=== PATIENT | female | born 1980 | race African-American/Black ===

== ENCOUNTER → 2020-01-23 16:29 | Outpatient (CLI) | payer BC, SELFPAY ==
--- NOTE | ~2020-01-23 | US_ITS ---
EXAMINATION: US thyroid DATE: 01/23/2020 16:41 INDICATION: Goiter. TECHNIQUE: Multiple ultrasound images of the thyroid were obtained. COMPARISON: Ultrasound 07/28/2018 FINDINGS: The right thyroid lobe measures 5.0 x 1.5 x 1.5 cm. The left thyroid lobe measures 4.3 x 1.2 x 1.5 c m. There is normal echotexture and echogenicity throughout the thyroid gland. No discrete nodules id entified. Normal vascular flow is present. IMPRESSION: 1. Normal thyroid. Reviewed, dictated and finalized at location A. IMPRESSION: 1. Normal thyroid.
== END ==
PROVIDERS: PCP Internal Medicine; Visit Provider Internal Medicine Endocrinology, Diabetes & Metabolism
DX: E04.9 Nontoxic goiter, unspecified (principal)
CPT/HCPCS: 76536

== ENCOUNTER 2020-02-20 17:52 | Emergency (ER) | payer BC, SELFPAY ==
--- NOTE | ~2020-02-20 | CT_ITS ---
EXAMINATION: CT abdomen pelvis w con EXAM DATE: 02/20/2020 21:37 INDICATION: Low abdominal pain. TECHNIQUE: Spiral CT of the abdomen and pelvis was performed following intravenous injection of 100 m L Omnipaque 350. Axial, coronal and sagittal images were reviewed. The dose-length product (DLP) fo r this examination was 863.56 mGy-cm. The exposure was tailored according to patient size (auto mA e xposure control), and iterative reconstruction (ASIR) was used as additional dose reduction technique . There is no prior study for comparison. FINDINGS: The liver, spleen, adrenal glands and pancreas are unremarkable. Gallbladder not identifie d, patient likely has had cholecystectomy. Portal and splenic veins are patent. Kidneys enhance sym metrically. There is no hydronephrosis. The uterus is unremarkable. The ovaries are normal in size . The bladder is unremarkable. There is no retroperitoneal or pelvic lymphadenopathy. The appendix is normal. The stomach and small bowel are unremarkable. There is expected amount of c olonic stool. No free intraperitoneal gas. The heart is normal in size. There are no pericardial or pleural effusions. The lung bases are unremarkable. The bones are unremarkable. IMPRESSION: 1. No acute intra-abdominal findings. Reviewed, dictated and finalized at location A.
[2020-02-20 18:59] VITALS: BP 126/90; PULSE 99; RESP 18; TEMP 36.2; O2SAT 100
[2020-02-20 19:16] LABS: Basophils Absolute Auto 0.1 K/mm3 (0.0-0.1); Basophils Percent Auto 0.6 % (0.2-1.2); Eosinophils Absolute Auto 0.2 K/mm3 (0-0.3); Eosinophils Percent Auto 2.5 % (0-4.4); Hematocrit 42.9 % (37.0-47.0); Hemoglobin 13.9 g/dL (12.0-15.0); Immature Granulocyte Absolute 0.02 K/mm3 (0.00-0.031); Immature Granulocyte Percent A 0.2 % (0-0.5); Lymphocytes Absolute Auto 3.12 K/mm3 (0.9-3.2); Lymphocytes Percent Auto 32.4 % (18.3-44.2); Mean Corpuscular HGB Conc 32.4 g/dl (32-36); Mean Corpuscular Hemoglobin 23.6 pg (26-34); Mean Corpuscular Volume 72.7 fl (80-100); Mean Platelet Volume 9.7 fl (7.4-10.4); Monocytes Absolute Auto 0.6 K/mm3 (0.1-0.6); Monocytes Percent Auto 6.4 % (2.6-8.5); Neutrophils Absolute Auto 5.6 K/mm3 (1.3-6.7); Neutrophils Percent Auto 57.9 % (45.5-73.1); Platelet Count Result 438 k/mm3 (150-375); Red Cell Distribution Width 14.1 % (11.5-14.5); White Blood Count 9.6 K/mm3 (4.5-10.0)
[2020-02-20 19:28] LABS: Alanine Aminotransferase 12 U/L (4-35); Albumin Level 4.7 g/dL (3.5-5.1); Alkaline Phosphatase 70 U/L (38-126); Anion Gap 10 mmol/L (8-16); Aspartate Amino Transferase 20 U/L (14-36); Bilirubin,Total 0.7 mg/dL (0.2-1.3); Blood Urea Nitrogen 9 mg/dL (7-17); Carbon Dioxide 30 mmol/L (22-30); Chloride 97 mmol/L (98-107); Estimated CRCL calculation 66 ml/min; Estimated Glomerular Filt Rate > 60; Glucose 87 mg/dL (65-105); Lipase 48 U/L (23-300); Potassium 4.1 mmol/L (3.4-5.0); Sodium 137 mmol/L (137-145)
[2020-02-20 19:32] LABS: Add Urine Microscopic? NO; Appearance Urine Clear (Clear); Bilirubin Urine Negative (Negative); Blood Urine Negative (Negative); Color Urine Yellow (Yellow); Glucose Urine UA Negative (Negative); Ketones Urine Negative (Negative); Leukocyte Esterase Ur Negative LEU/UL (Negative); Nitrate Urine Negative (Negative); Protein Urine Negative (Negative); Urobilinogen Urine Negative mg/dL (<2.0)
--- NOTE | 2020-02-20 20:17 | ED.ABDPAIN ---
HPI - Abdominal Pain General Chief Complaint: Abdominal Pain Stated Complaint: abdominal pain, r/o appendectomy Time Seen by Provider: 02/20/20 20:16 Source: patient Mode of arrival: ambulatory Limitations: no limitations History of Present Illness HPI narrative: Patient is a 40-year-old female with a history of bilateral cataracts, hypertension who presents for evaluation of lower abdominal pain. Patient reports pain throughout her abdomen and associated nausea. Patient has had symptoms over the past 24 hours. Pain is described as dull, cramping in nature. At times she states it feels like gas-like pain. She denies any flank pain. No dysuria, hematuria vaginal bleeding or vaginal discharge. She denies fever or chills. She reports associated dizziness and nausea. Denies vomiting. Patient states she had an elevated intraocular pressures that were managed by her fitter and turner this week, pressure rechecks have been normal. No eye symptoms at this time. Related Data Allergies Allergy/AdvReac Type Severity Reaction Status Date / Time Penicillins Allergy Severe HIVES Verified 11/24/12 11:07 penicillin G Allergy Unknown Verified 10/01/11 10:58 Sulfa (Sulfonamide Allergy Unknown EYES ITCH Verified 12/13/12 16:17 Antibiotics) AND SWELL Review of Systems Review of Systems: Narrative: CONSTITUTIONAL: Denies fever EYES: Denies visual changes CARDIOVASCULAR: Denies chest pain, palpitations, or edema. RESPIRATORY: Denies cough or dyspnea. GASTROINTESTINAL: Reports upper and lower abdominal pain, nausea GENITOURINARY: Denies dysuria or hematuria. SKIN: Denies rash or itching. MUSCULOSKELETAL: Denies back pain, joint pain, or myalgia. NEUROLOGIC: Denies headache, numbness, or weakness. [facility] Past Medical History Medical History Cataracts, bilateral Depression Detached retina Hypertension Surgical History Surgical History (Updated 02/20/20 @ 20:47 by Kathryn Yoder MD) Hx of cholecystectomy Family History Family History (Updated 01/04/14 @ 07:13 by DOCTOR UNKNOWN) Grandparent Family history of malignant neoplasm of ovary Social History Social History (Updated 02/20/20 @ 20:47 by Kathryn Yoder MD) Smoking status: Never smoker Alcohol intake: current Substance use: never Gender identity (if verbalized by the patient): Female Exam Narrative: Exam Narrative: GENERAL: Awake, alert, conversant HEAD: Normocephalic, atraumatic. EYES: Surgical changes of left eyelid, consistent with cataract, detached retina with prosthetic eye ENT: Nares clear, no rhinorrhea or epistaxis. Mucous membranes moist. NECK: Supple. CHEST: No respiratory distress, breathing even and non labored HEART: Regular rate, sinus rhythm ABDOMEN:Non distended, mildly tender in the periumbilical area, right and left lower quadrant, no guarding, no rebound, mild epigastric tenderness, negative psoas sign, no flank tenderness EXTREMITIES: Normal range of motion. No edema. SKIN: Warm, dry, no rash. NEURO:No focal deficits. Alert and oriented x3 Course Vital Signs Vital signs: Vital Signs Temperature 36.2 C L 02/20/20 18:59 Pulse Rate 99 02/20/20 18:59 Respiratory Rate 18 02/20/20 18:59 Blood Pressure 126/90 02/20/20 18:59 Pulse Oximetry 100 02/20/20 18:59 Temperature 36.2 C L 02/20/20 18:59 Pulse Rate 99 02/20/20 18:59 Respiratory Rate 18 02/20/20 18:59 Blood Pressure 126/90 02/20/20 18:59 Pulse Oximetry 100 02/20/20 18:59 MDM - Abdominal Pain MDM Narrative Medical decision making narrative: Patient presenting for evaluation of nausea and generalized abdominal pain. At the time of initial assessment, patient has a non-peritoneal abdominal exam. No focal right lower quadrant tenderness, no guarding, rebound or rigidity. Patient vital signs are quite stable. No vaginal bleeding, vaginal discharge or history of STI. No findings at this
[2020-02-20] MEDS: MECLIZINE HCL 25 MG TABLET PO (21:12)
[2020-02-20] MEDS: ONDANSETRON INJ 4 MG/2 ML VIAL IV PUSH (21:13)
[2020-02-20] MEDS: MORPHINE SULFATE (*CRX) 2 MG/ML INJ IV PUSH (21:14)
[2020-02-20] MEDS: SODIUM CHLORIDE 0.9% IV 1,000 ML 999 ML IV CONT (21:15)
[2020-02-20 23:21] VITALS: BP 122/88; PULSE 89; RESP 17; O2SAT 98
== END 2020-02-20 23:25 | disposition home or self-care (01) ==
PROVIDERS: Emergency Provider Emergency Medicine; PCP Internal Medicine
DX: R10.30 Lower abdominal pain, unspecified (principal); F32.9 Major depressive disorder, single episode, unspecified; I10 Essential (primary) hypertension
CPT/HCPCS: 36415; 74177; 80053; 81003; 81025; 83690; 85025; 96361; 96374; 96375; 99284; A9270; J2270; J2405; J7030; Q9967

== ENCOUNTER → 2020-03-28 10:08 | Outpatient (CLI) | payer BC, SELFPAY ==
--- NOTE | ~2020-03-28 | MR_ITS ---
EXAMINATION: MR brain/brain stem wo/w con EXAM DATE: 03/28/2020 11:12 INDICATION: rt eye blurred vision, patient is monocular, left eye prosthesis. TECHNIQUE: Magnetic resonance imaging (MRI) of the brain/brain stem obtained without contrast. Sagit santana T1, axial diffusion, gradient echo (T2*), T1, T2, FLAIR sequences obtained. Sagittal FLAIR sequen ce. Patient was then injected with 20 cc intravenous Multihance contrast. Axial and coronal postcontr ast T1 weighted sequences obtained. There is no prior study for comparison. FINDINGS: There are no areas of restricted diffusion to suggest acute infarction. There is no acute hemorrhage seen on the T2*, a hemosiderin sensitive sequence. No intraparenchymal brain mass. The ve ntricles are normal in size. There are no extra-axial collections. Flow voids are seen in the cereb ral arteries on the T2-weighted sequences consistent with their expected patency. Left globe prosthe sis. Soft tissue is unremarkable. There are no areas of abnormal enhancement on the postcontrast im ages. IMPRESSION: 1. Unremarkable brain MRI examination. Reviewed, dictated and finalized at location A. UCT DEVELOPMENT WORKER
--- NOTE | ~2020-03-28 | MR_ITS ---
EXAMINATION: MR orbits face neck wo/w con DATE: 03/28/2020 11:24 INDICATION: Right eye blurred vision. TECHNIQUE: Magnetic resonance imaging (MRI) of the orbits was performed without and with 20 mm MultiH ance intravenous contrast. Sequences of the orbits included coronal and axial T2-weighted FS FSE and T1-weighted FSE. Postcontrast sequences included axial and coronal T1-weighted FS FSE. COMPARISON: None. FINDINGS: There is a prosthesis in left orbit. There are likely changes of right ocular lens replacem ent surgery. The right optic nerve and optic chiasm are normal. The extraocular muscles are normal. T here is no abnormal mass. IMPRESSION: 1. Normal right orbit status post lens replacement surgery. 2. Prosthesis in left orbit. Reviewed, dictated and finalized at location A. T LINE OPERATOR
[2020-03-28 10:29] LABS: Estimated Glomerular Filt Rate > 60
== END ==
PROVIDERS: PCP Internal Medicine; Visit Provider Internal Medicine
DX: H53.8 Other visual disturbances (principal)
CPT/HCPCS: 70543; 70553; A9577

== ENCOUNTER 2020-04-15 07:04 | Outpatient (NON) | payer BC, SELFPAY ==
[2020-04-15 18:53] LABS: SARS-CoV-2 RNA PCR Negative
== END 2020-04-15 07:05 ==
LOC: ANHCOVIDDT 07:09
PROVIDERS: PCP Internal Medicine; Visit Provider Internal Medicine
DX: R68.89 Other general symptoms and signs (principal); Z20.828 Contact with and (suspected) exposure to other viral communicable diseases
CPT/HCPCS: 87635; C9803; U0003

== ENCOUNTER 2020-04-16 10:25 | Outpatient (CLI) | payer BC, SELFPAY ==
[2020-04-16 11:07] LABS: Basophils Absolute Auto 0.1 K/mm3 (0.0-0.1); Basophils Percent Auto 0.8 % (0.2-1.2); Eosinophils Absolute Auto 0.2 K/mm3 (0-0.3); Eosinophils Percent Auto 2.4 % (0-4.4); Hematocrit 40.1 % (37.0-47.0); Immature Granulocyte Absolute 0.02 K/mm3 (0.00-0.031); Immature Granulocyte Percent A 0.2 % (0-0.5); Lymphocytes Absolute Auto 2.59 K/mm3 (0.9-3.2); Lymphocytes Percent Auto 30.7 % (18.3-44.2); Mean Corpuscular HGB Conc 32.4 g/dl (32-36); Mean Corpuscular Hemoglobin 24.2 pg (26-34); Mean Corpuscular Volume 74.5 fl (80-100); Mean Platelet Volume 10.2 fl (7.4-10.4); Monocytes Absolute Auto 0.7 K/mm3 (0.1-0.6); Monocytes Percent Auto 8.3 % (2.6-8.5); Neutrophils Absolute Auto 4.9 K/mm3 (1.3-6.7); Neutrophils Percent Auto 57.6 % (45.5-73.1); Platelet Count Result 399 k/mm3 (150-375); Red Blood Count 5.38 M/mm3 (4.2-5.4); Red Cell Distribution Width 14.6 % (11.5-14.5); White Blood Count 8.4 K/mm3 (4.5-10.0)
[2020-04-16 11:21] LABS: Alanine Aminotransferase 21 U/L (4-35); Albumin Level 4.1 g/dL (3.5-5.1); Alkaline Phosphatase 64 U/L (38-126); Anion Gap 7 mmol/L (8-16); Aspartate Amino Transferase 28 U/L (14-36); Bilirubin,Total 0.7 mg/dL (0.2-1.3); Blood Urea Nitrogen 10 mg/dL (7-17); Calcium 9.4 mg/dL (8.4-10.2); Carbon Dioxide 29 mmol/L (22-30); Chloride 101 mmol/L (98-107); Estimated Glomerular Filt Rate > 60; Glucose 90 mg/dL (65-105); Potassium 4.3 mmol/L (3.4-5.0); Sodium 137 mmol/L (137-145)
[2020-04-16 11:22] LABS: Prothrombin Time 14.1 Seconds (11.1-14.7)
[2020-04-16 11:23] LABS: Partial Thromboplastin Time 31.7 SECONDS (22.3-36.8)
== END 2020-04-16 10:26 | disposition home or self-care (01) ==
PROVIDERS: PCP Internal Medicine; Visit Provider Internal Medicine
DX: K92.1 Melena (principal); R79.89 Other specified abnormal findings of blood chemistry
CPT/HCPCS: 36415; 80053; 85025; 85610; 85730

== ENCOUNTER → 2020-06-04 12:45 | Outpatient (CLI) | payer BC, SELFPAY ==
--- NOTE | ~2020-06-04 | US_ITS ---
US transvaginal DATE: 06/04/2020 13:15 INDICATION: Pelvic pain. Follow-up of fibroids. TECHNIQUE: Real-time imaging via transvaginal approach COMPARISON: 02/20/2020 CT abdomen pelvis 06/02/2019 transvaginal pelvic ultrasound FINDINGS: The uterus measures approximately 7.9 cm height, 5.6 cm AP and 6.4 cm transverse dimension. Multiple uterine fibroids are noted, measuring up to 3.2 cm approximate maximal dimension. The central and anterior apical complex measures up to 6 mm, normal. Right ovary measures 3.8 x 2.1 x 3.3 cm, with vascular flow. There is a complex 2.1 x 1.2 x 2.8 cm ri ght ovarian lesion. Left ovary measures 2.8 x 1.7 x 1.6 cm, with vascular flow. IMPRESSION: Multiple uterine fibroids Complex 2.1 x 1.2 x 2.8 cm right ovarian mass Reviewed, dictated and finalized at Location A. Reviewed, dictated and finalized at location A. L GRADER
== END ==
PROVIDERS: PCP Internal Medicine; Visit Provider Obstetrics & Gynecology Gynecology
DX: R10.2 Pelvic and perineal pain (principal); D25.9 Leiomyoma of uterus, unspecified
CPT/HCPCS: 76830

== ENCOUNTER 2020-07-08 08:18 | Outpatient (CLI) | payer BC, SELFPAY ==
--- NOTE | ~2020-07-08 | US_ITS ---
EXAMINATION: US transvaginal EXAM DATE: 07/08/2020 08:53 INDICATION: Pelvic pain, ovarian cyst. TECHNIQUE: Pelvic transvaginal sonogram was performed. There are multiple grayscale and Doppler imag es available for interpretation. Comparison is made to prior examination from 06/04/2020. FINDINGS: Uterus measures 7.9 x 4.6 x 6.7 cm, with several regions consistent with fibroids, largest in the posterior myometrium measuring 3.7 cm, another in the right side measuring 2.8 cm. Endometria l stripe measures 11 mm, within normal limits. There is no free pelvic fluid. Right adnexa: The ovary measures 2.9 x 2.0 x 1.9 cm and is morphologically normal. Resolution of prev iously seen complex cystic lesion. Ovarian vascular flow confirmed. Left adnexa: The ovary measures 4.2 x 2.8 x 2.5 cm and is morphologically normal. Ovarian vascular fl ow confirmed. IMPRESSION: 1. Normalization of right ovary. 2. Fibroids unchanged. Reviewed, dictated and finalized at location A. REDUCTION EQUIPMENT OPERATOR
== END 2020-07-08 08:19 ==
LOC: MICIMG 08:19
PROVIDERS: PCP Internal Medicine; Visit Provider Obstetrics & Gynecology Gynecology
DX: R10.2 Pelvic and perineal pain (principal); N83.201 Unspecified ovarian cyst, right side; D25.9 Leiomyoma of uterus, unspecified
CPT/HCPCS: 76830

== ENCOUNTER → 2021-02-20 09:14 | Outpatient (CLI) | payer BC, SELFPAY ==
--- NOTE | ~2021-02-20 | US_ITS ---
EXAMINATION: US renal BI EXAM DATE: 02/20/2021 09:32 INDICATION: Disorder of kidney and ureter, renal insufficiency TECHNIQUE: Multiple grayscale and Doppler images of the kidneys were obtained (by a technologist who performed the scan) and subsequently reviewed. Comparison is made to prior examination from . FINDINGS: Right kidney: There is normal contour and echogenicity. It measures 9.8 x 4.6 x 5.1 centimeters. Th ere are no focal renal lesions identified. There is no hydronephrosis. Left kidney: There is normal contour and echogenicity. It measures 10.6 x 3.4 x 3.5 centimeters. Th ere are no focal renal lesions identified. There is no hydronephrosis. Bladder unremarkable. IMPRESSION: 1. Sonographically unremarkable kidneys. Reviewed, dictated and finalized at location A.
== END ==
PROVIDERS: PCP Internal Medicine; Visit Provider Internal Medicine
DX: N28.9 Disorder of kidney and ureter, unspecified (principal)
CPT/HCPCS: 76775

== ENCOUNTER 2021-09-08 08:16 | Outpatient (CLI) | payer BC, SELFPAY ==
[2021-09-08 08:46] LABS: Alanine Aminotransferase 74 U/L (4-35); Albumin Level 4.4 g/dL (3.5-5.1); Alkaline Phosphatase 108 U/L (38-126); Anion Gap 7 mmol/L (8-16); Aspartate Amino Transferase 43 U/L (14-36); Bilirubin,Total 0.6 mg/dL (0.2-1.3); Blood Urea Nitrogen 7 mg/dL (7-17); Calcium 8.9 mg/dL (8.4-10.2); Carbon Dioxide 26 mmol/L (22-30); Chloride 104 mmol/L (98-107); Cholesterol 170 mg/dL (0-200); Estimated Glomerular Filt Rate 55; Glucose 91 mg/dL (65-110); HDL Direct 46 mg/dL; Hemoglobin A1C 4.8 % (<5.7); Potassium 4.1 mmol/L (3.4-5.0); Sodium 137 mmol/L (137-145); Triglycerides 196 mg/dL (<150)
[2021-09-08 08:57] LABS: LDL Cholesterol Direct 64 mg/dL
[2021-09-11 04:48] LABS: Insulin Level Total 15.6 uIU/mL (<=19.6)
[2021-09-11 13:04] LABS: Testosterone Free 0.7 pg/mL (0.1-6.4); Testosterone Total 13 ng/dL (2-45)
[2021-09-11 17:55] LABS: DHEA-Sulfate 47 mcg/dL (23-266)
== END 2021-09-08 08:17 | disposition home or self-care (01) ==
LOC: ANHLAB 08:22
PROVIDERS: PCP Internal Medicine; Visit Provider Internal Medicine Endocrinology, Diabetes & Metabolism
DX: R73.03 Prediabetes (principal)
CPT/HCPCS: 36415; 80053; 80061; 82627; 83036; 83525; 84402; 84403

== ENCOUNTER 2022-01-19 07:02 | Outpatient (CLI) | payer BC, SELFPAY ==
[2022-01-19 07:34] LABS: Alanine Aminotransferase 28 U/L (6-35); Albumin Level 3.9 g/dL (3.5-5.1); Alkaline Phosphatase 70 U/L (38-126); Anion Gap 6 mmol/L (8-16); Aspartate Amino Transferase 34 U/L (14-36); Bilirubin,Total 0.7 mg/dL (0.2-1.3); Blood Urea Nitrogen 7 mg/dL (7-17); Calcium 8.8 mg/dL (8.4-10.2); Carbon Dioxide 28 mmol/L (22-30); Chloride 104 mmol/L (98-107); Estimated Glomerular Filt Rate 55; Glucose 91 mg/dL (65-110); Potassium 3.8 mmol/L (3.4-5.0); Sodium 138 mmol/L (137-145)
[2022-01-19 07:42] LABS: Basophils Absolute Auto 0.1 K/mm3 (0.0-0.1); Basophils Percent Auto 0.7 % (0.2-1.2); Eosinophils Absolute Auto 0.1 K/mm3 (0-0.3); Eosinophils Percent Auto 0.7 % (0-4.4); Hematocrit 41.5 % (37.0-47.0); Hemoglobin 13.1 g/dL (12.0-15.0); Immature Granulocyte Absolute 0.01 K/mm3 (0.00-0.031); Immature Granulocyte Percent A 0.1 % (0-0.5); Lymphocytes Absolute Auto 2.68 K/mm3 (0.9-3.2); Lymphocytes Percent Auto 32.8 % (18.3-44.2); Mean Corpuscular HGB Conc 31.6 g/dl (32-36); Mean Corpuscular Hemoglobin 23.8 pg (26-34); Mean Corpuscular Volume 75.3 fl (80-100); Mean Platelet Volume 10.2 fl (7.4-10.4); Monocytes Absolute Auto 0.6 K/mm3 (0.1-0.6); Monocytes Percent Auto 7.8 % (2.6-8.5); Neutrophils Absolute Auto 4.7 K/mm3 (1.3-6.7); Neutrophils Percent Auto 57.9 % (45.5-73.1); Platelet Count Result 368 k/mm3 (150-375); Red Blood Count 5.51 M/mm3 (4.2-5.4); Red Cell Distribution Width 13.9 % (11.5-14.5); White Blood Count 8.2 K/mm3 (4.5-10.0)
[2022-01-19 07:48] LABS: Add Urine Microscopic? YES; Appearance Urine Cloudy (Clear); Bacteria Urine Trace /hpf; Bilirubin Urine 1+ (Negative); Blood Urine Negative (Negative); Color Urine Amber (Yellow); Glucose Urine UA Negative (Negative); Ketones Urine Negative (Negative); Leukocyte Esterase Ur Negative LEU/UL (Negative); Mucus Urine Heavy /lpf; Nitrate Urine Negative (Negative); Protein Urine 1+ mg/dL (Negative); Squamous Epithelial Cell Urine Many /hpf (Few)
[2022-01-19 08:02] LABS: Vitamin D 25 Hydroxy 39.7 ng/mL
[2022-01-19 10:08] LABS: Hepatitis B Surface Anti Res Negative
== END 2022-01-19 07:03 | disposition home or self-care (01) ==
PROVIDERS: PCP Internal Medicine; Visit Provider Internal Medicine
DX: R74.8 Abnormal levels of other serum enzymes (principal); Z13.29 Encounter for screening for other suspected endocrine disorder; Z13.0 Encounter for screening for diseases of the blood and blood-forming organs and certain disorders involving the immune mechanism; Z13.228 Encounter for screening for other metabolic disorders; R63.4 Abnormal weight loss; E55.9 Vitamin D deficiency, unspecified
CPT/HCPCS: 36415; 80053; 81001; 82306; 84443; 85025; 86706

== ENCOUNTER → 2022-07-11 08:28 | Outpatient (CLI) | payer BC, OTHER, SELFPAY ==
--- NOTE | ~2022-07-11 | US_ITS ---
EXAMINATION: US transvaginal DATE: 07/11/2022 08:54 INDICATION: Right lower quadrant pain TECHNIQUE: Multiple endovaginal sonographic images of the pelvis were obtained. COMPARISON: None. FINDINGS: The uterus measures 9.2 x 6.1 x 6.6 cm. There are multiple masses of the uterus which have the appearance of intramural fibroids. The largest measures 3.1 cm in the uterine fundus. The endomet rial complex measures 7 mm. The right ovary is not visualized however no right adnexal abnormality is seen. The left ovary measures 4.6 x 3.1 x 5.0 cm. There is normal vascular flow in the left ovary. T here is no free fluid in the pelvis. IMPRESSION: 1. Multiple uterine fibroids. Reviewed, dictated and finalized at location F. NEL OPENER OUTSOLES
== END ==
PROVIDERS: PCP Internal Medicine; Visit Provider Obstetrics & Gynecology Gynecology
DX: R10.2 Pelvic and perineal pain (principal); D25.9 Leiomyoma of uterus, unspecified
CPT/HCPCS: 76830

== ENCOUNTER 2022-07-13 06:57 | Outpatient (CLI) | payer BC, OTHER, SELFPAY ==
[2022-07-13 07:40] LABS: Alanine Aminotransferase 30 U/L (6-35); Albumin Level 3.3 g/dL (3.5-5.1); Alkaline Phosphatase 65 U/L (38-126); Anion Gap 1 mmol/L (8-16); Aspartate Amino Transferase 36 U/L (14-36); Bilirubin,Total 0.6 mg/dL (0.2-1.3); Blood Urea Nitrogen 7 mg/dL (7-17); Calcium 7.9 mg/dL (8.4-10.2); Carbon Dioxide 30 mmol/L (22-30); Chloride 107 mmol/L (98-107); Cholesterol 141 mg/dL (0-200); Estimated Glomerular Filt Rate > 60; Glucose 100 mg/dL (65-110); HDL Direct 35 mg/dL; Potassium 3.8 mmol/L (3.4-5.0); Sodium 138 mmol/L (137-145); Triglycerides 129 mg/dL (<150)
[2022-07-13 07:51] LABS: LDL Cholesterol Direct 76 mg/dL
[2022-07-17 10:31] LABS: DHEA-Sulfate 14 mcg/dL (19-231); Insulin Level Total 18.2 uIU/mL (<=19.6)
[2022-07-22 14:40] LABS: Testosterone Free 2.3 pg/mL (0.1-6.4); Testosterone Total 14 ng/dL (2-45)
== END 2022-07-13 06:58 | disposition home or self-care (01) ==
LOC: ANHLAB 07:02
PROVIDERS: PCP Internal Medicine; Visit Provider Internal Medicine Endocrinology, Diabetes & Metabolism
DX: E78.1 Pure hyperglyceridemia (principal); E28.2 Polycystic ovarian syndrome; R73.03 Prediabetes
CPT/HCPCS: 36415; 80053; 80061; 82627; 83036; 83525; 84402; 84403

== ENCOUNTER 2022-08-03 08:14 | Outpatient (CLI) | payer BC, OTHER, SELFPAY ==
[2022-08-03 09:15] LABS: Cortisol Random 0.99 ug/dL
== END 2022-08-03 08:15 | disposition home or self-care (01) ==
LOC: ANHLAB 08:17
PROVIDERS: PCP Internal Medicine; Visit Provider Internal Medicine Endocrinology, Diabetes & Metabolism
DX: E28.2 Polycystic ovarian syndrome (principal)
CPT/HCPCS: 36415; 80299; 82533

== ENCOUNTER → 2022-09-17 13:57 | Outpatient (CLI) | payer BC, OTHER, SELFPAY ==
--- NOTE | ~2022-09-17 | MM_ITS ---
EXAMINATION: MM screening [facility] BI w maryjo HISTORY: Screening mammogram TECHNIQUE: Craniocaudal and mediolateral oblique 3-D tomosynthesis images were obtained and synthetic 2-D images were generated. CAD analysis was submitted and interpreted. COMPARISON: 01/20/2019, 06/24/2017, 10/08/2011, 09/08/2011 BREAST PARENCHYMAL COMPOSITION: There are scattered areas of fibroglandular density. FINDINGS: No suspicious mass, calcification, or architectural distortion are identified in either emily ast to suggest malignancy. There has been no suspicious interval change. IMPRESSION: 1. No mammographic evidence of malignancy. 2. Recommend routine screening mammography in one year. BI-RADS Category 1: Negative Reviewed, dictated and finalized at location A.
== END ==
PROVIDERS: PCP Obstetrics & Gynecology Gynecology; Visit Provider Obstetrics & Gynecology Gynecology
DX: Z12.31 Encounter for screening mammogram for malignant neoplasm of breast (principal)
CPT/HCPCS: 77063; 77067

== ENCOUNTER 2022-10-16 07:36 | Outpatient (CLI) | payer BC, OTHER, SELFPAY ==
[2022-10-16 08:21] LABS: Basophils Percent Auto 0.3 % (0.2-1.2); Hematocrit 44.1 % (37.0-47.0); Hemoglobin 13.8 g/dL (12.0-15.0); Immature Granulocyte Absolute 0.03 K/mm3 (0.00-0.031); Immature Granulocyte Percent A 0.4 % (0-0.5); Lymphocytes Absolute Auto 0.96 K/mm3 (0.9-3.2); Lymphocytes Percent Auto 12.2 % (18.3-44.2); Mean Corpuscular HGB Conc 31.3 g/dl (32-36); Mean Corpuscular Hemoglobin 23.4 pg (26-34); Mean Corpuscular Volume 74.9 fl (80-100); Mean Platelet Volume 10.4 fl (7.4-10.4); Monocytes Absolute Auto 0.1 K/mm3 (0.1-0.6); Monocytes Percent Auto 1.3 % (2.6-8.5); Neutrophils Absolute Auto 6.7 K/mm3 (1.3-6.7); Neutrophils Percent Auto 85.8 % (45.5-73.1); Platelet Count Result 475 k/mm3 (150-375); Red Blood Count 5.89 M/mm3 (4.2-5.4); Red Cell Distribution Width 15.5 % (11.5-14.5); White Blood Count 7.8 K/mm3 (4.5-10.0)
[2022-10-16 08:24] LABS: Alanine Aminotransferase 33 U/L (6-35); Albumin Level 4.7 g/dL (3.5-5.1); Alkaline Phosphatase 91 U/L (38-126); Anion Gap 9 mmol/L (8-16); Aspartate Amino Transferase 33 U/L (14-36); Bilirubin,Total 0.7 mg/dL (0.2-1.3); Blood Urea Nitrogen 11 mg/dL (7-17); Calcium 9.5 mg/dL (8.4-10.2); Carbon Dioxide 27 mmol/L (22-30); Chloride 101 mmol/L (98-107); Estimated Glomerular Filt Rate > 60; Glucose 136 mg/dL (65-110); Potassium 4.4 mmol/L (3.4-5.0); Sodium 137 mmol/L (137-145)
[2022-10-16 08:27] LABS: Appearance Urine Clear (Clear); Bacteria Urine 1+ /hpf; Bilirubin Urine Negative (Negative); Blood Urine Negative (Negative); Color Urine Yellow (Yellow); Glucose Urine UA Negative (Negative); Ketones Urine Negative (Negative); Leukocyte Esterase Ur Trace LEU/UL (Negative); Nitrate Urine Negative (Negative); Non Pathogenic Casts 0-2; Protein Urine Negative (Negative); RBC Urine 0-2 /hpf (0-2); Specific Grav Ur 1.021 (1.001-1.035); Squamous Epithelial Cell Urine Moderate /hpf (Few); Urobilinogen Urine 0.2 mg/dL (<2.0)
[2022-10-16 08:28] LABS: Prothrombin Time 13.9 Seconds (11.1-14.7)
[2022-10-16 08:29] LABS: Partial Thromboplastin Time 34.8 SECONDS (22.3-36.8)
[2022-10-16 08:43] LABS: Add Urine Microscopic? YES
== END 2022-10-16 07:37 | disposition home or self-care (01) ==
LOC: ANHLAB 07:39
PROVIDERS: PCP Obstetrics & Gynecology Gynecology; Visit Provider Internal Medicine
DX: R31.29 Other microscopic hematuria (principal); T14.8XXA Other injury of unspecified body region, initial encounter; I10 Essential (primary) hypertension
CPT/HCPCS: 36415; 80053; 81001; 85025; 85610; 85730; 87086

== ENCOUNTER 2022-11-23 16:28 | Outpatient (CLI) | payer BC, OTHER, SELFPAY ==
[2022-11-23 17:32] LABS: Basophils Absolute Auto 0.1 K/mm3 (0.0-0.1); Basophils Percent Auto 0.9 % (0.2-1.2); Eosinophils Percent Auto 0.2 % (0-4.4); Hematocrit 41.7 % (37.0-47.0); Immature Granulocyte Absolute 0.05 K/mm3 (0.00-0.031); Immature Granulocyte Percent A 0.5 % (0-0.5); Lymphocytes Absolute Auto 2.71 K/mm3 (0.9-3.2); Lymphocytes Percent Auto 29.2 % (18.3-44.2); Mean Corpuscular HGB Conc 31.2 g/dl (32-36); Mean Corpuscular Hemoglobin 23.4 pg (26-34); Mean Corpuscular Volume 75.1 fl (80-100); Mean Platelet Volume 10.2 fl (7.4-10.4); Monocytes Absolute Auto 0.8 K/mm3 (0.1-0.6); Monocytes Percent Auto 8.6 % (2.6-8.5); Neutrophils Absolute Auto 5.6 K/mm3 (1.3-6.7); Neutrophils Percent Auto 60.6 % (45.5-73.1); Platelet Count Result 407 k/mm3 (150-375); Red Blood Count 5.55 M/mm3 (4.2-5.4); Red Cell Distribution Width 15.7 % (11.5-14.5); White Blood Count 9.3 K/mm3 (4.5-10.0)
[2022-11-23 18:05] LABS: Alanine Aminotransferase 37 U/L (6-35); Albumin Level 4.4 g/dL (3.5-5.1); Alkaline Phosphatase 72 U/L (38-126); Anion Gap 7 mmol/L (8-16); Aspartate Amino Transferase 41 U/L (14-36); Bilirubin,Total 0.7 mg/dL (0.2-1.3); Blood Urea Nitrogen 7 mg/dL (7-17); Calcium 8.8 mg/dL (8.4-10.2); Carbon Dioxide 29 mmol/L (22-30); Chloride 100 mmol/L (98-107); Estimated Glomerular Filt Rate > 60; Glucose 85 mg/dL (65-110); Sodium 136 mmol/L (137-145)
[2022-11-23 18:10] LABS: Immunoglobulin A 107 mg/dL (70-400)
[2022-11-23 19:00] LABS: Vitamin D 25 Hydroxy 40.4 ng/mL
[2022-11-25 18:18] LABS: Tissue Transglutaminase IgA Ab <1.0 U/mL (<15.0)
== END 2022-11-23 16:29 | disposition home or self-care (01) ==
LOC: ANHLAB 16:32
PROVIDERS: PCP Obstetrics & Gynecology Gynecology; Visit Provider Internal Medicine
DX: R19.5 Other fecal abnormalities (principal); D75.829 Heparin-induced thrombocytopenia, unspecified
CPT/HCPCS: 36415; 80048; 80076; 82306; 82607; 82784; 85025; 86364

== ENCOUNTER 2022-11-24 16:17 | Outpatient (CLI) | payer BC, OTHER, SELFPAY ==
[2022-12-01 15:02] LABS: Fecal Fat, Ql Normal (Normal)
[2022-12-02 16:32] LABS: Pancreatic Elastase, Stool 43 mcg/g
== END 2022-11-24 16:18 | disposition home or self-care (01) ==
LOC: ANHLAB 16:19
PROVIDERS: PCP Obstetrics & Gynecology Gynecology; Visit Provider Internal Medicine
DX: R19.5 Other fecal abnormalities (principal); D75.839 Thrombocytosis, unspecified
CPT/HCPCS: 82653; 82705

== ENCOUNTER 2022-12-11 07:36 | Outpatient (CLI) | payer BC, OTHER, SELFPAY ==
[2022-12-11 08:58] LABS: Alanine Aminotransferase 25 U/L (6-35); Albumin Level 4.6 g/dL (3.5-5.1); Alkaline Phosphatase 76 U/L (38-126); Anion Gap 8 mmol/L (8-16); Aspartate Amino Transferase 28 U/L (14-36); Bilirubin,Total 0.6 mg/dL (0.2-1.3); Blood Urea Nitrogen 11 mg/dL (7-17); Carbon Dioxide 26 mmol/L (22-30); Chloride 103 mmol/L (98-107); Estimated Glomerular Filt Rate 60; Glucose 104 mg/dL (65-110); Potassium 4.3 mmol/L (3.4-5.0); Sodium 137 mmol/L (137-145)
[2022-12-11 09:23] LABS: Thyroid Stimulating Hormone 0.406 uIU/mL (0.465-4.680)
[2022-12-11 09:24] LABS: Cortisol Random 1.14 ug/dL
[2022-12-11 09:44] LABS: Hemoglobin A1C 5.2 % (<5.7)
[2022-12-11 19:43] LABS: Free T4 Free Thyroxine 1.26 ng/mL (0.78-2.19)
[2022-12-14 12:19] LABS: Insulin Level Total 41.1 uIU/mL (<=19.6)
[2022-12-17 13:19] LABS: Dexamethasone 642 ng/dL
== END 2022-12-11 07:37 | disposition home or self-care (01) ==
LOC: ANHLAB 07:39
PROVIDERS: PCP Internal Medicine; Visit Provider Internal Medicine Endocrinology, Diabetes & Metabolism
DX: E28.2 Polycystic ovarian syndrome (principal); R73.03 Prediabetes
CPT/HCPCS: 36415; 80053; 80299; 82533; 83036; 83525; 84439; 84443

== ENCOUNTER 2023-01-04 16:40 | Observation (INO) | payer BC, OTHER, SELFPAY ==
[2023-01-04] VITALS (19 sets, daily range): BP systolic 122–148; BP diastolic 61–93; PULSE 76–88; RESP 12–22; TEMP 36.4–36.9; O2SAT 97–100; BMI 40.9; BMI 41.3
--- NOTE | ~2023-01-04 | CT_ITS ---
EXAMINATION: CT abdomen pelvis w con DATE: 01/04/2023 19:14 INDICATION: Right lower quadrant abdominal pain and tenderness. TECHNIQUE: Computed tomography (CT) of the abdomen and pelvis was performed with 100 mL Omnipaque 350 intravenous contrast. Automated exposure control and iterative reconstruction technique were employe d. The dose-length product was 1426.27 mGy-cm. COMPARISON: CT abdomen and pelvis 02/20/2020 FINDINGS: The visualized portions of the lung bases are clear without pneumonia or pleural effusion. The heart size is normal. No pericardial effusion. The liver is normal. There are changes of cholecys tectomy. The spleen, pancreas, adrenal glands, and kidneys are normal. There are fibroids in the uter us measuring up to 4.3 cm. There is a 4.7 cm cyst in left ovary. The appendix measures 8 mm in diamet er near the tip. The appendiceal diameter measured 7 mm on the prior exam. There is mild fat strandin g adjacent to the appendix. There are no pathologically enlarged lymph nodes. There is mild thoracic spondylosis. IMPRESSION: 1. Appendiceal diameter of 8 mm with mild local fat stranding, which is indeterminate for acute appen dicitis. 2. 4.7 cm cyst in left ovary, likely a follicular cyst. 3. Uterine fibroids. Reviewed, dictated and finalized at location E. IMPRESSION: 1. Appendiceal diameter of 8 mm with mild local fat stranding, which is indeter minate for acute appendicitis. 2. 4.7 cm cyst in left ovary, likely a follicular cyst. 3. Uterine fibroids.
[2023-01-04 17:29] LABS: Basophils Absolute Auto 0.1 K/mm3 (0.0-0.1); Eosinophils Percent Auto 0.3 % (0-4.4); Hematocrit 43.3 % (37.0-47.0); Hemoglobin 13.7 g/dL (12.0-15.0); Immature Granulocyte Absolute 0.05 K/mm3 (0.00-0.031); Immature Granulocyte Percent A 0.5 % (0-0.5); Lymphocytes Absolute Auto 3.49 K/mm3 (0.9-3.2); Lymphocytes Percent Auto 34.2 % (18.3-44.2); Mean Corpuscular HGB Conc 31.6 g/dl (32-36); Mean Corpuscular Hemoglobin 23.6 pg (26-34); Mean Corpuscular Volume 74.7 fl (80-100); Mean Platelet Volume 9.9 fl (7.4-10.4); Monocytes Absolute Auto 0.8 K/mm3 (0.1-0.6); Monocytes Percent Auto 7.3 % (2.6-8.5); Neutrophils Absolute Auto 5.8 K/mm3 (1.3-6.7); Neutrophils Percent Auto 56.7 % (45.5-73.1); Platelet Count Result 448 k/mm3 (150-375); Red Cell Distribution Width 14.9 % (11.5-14.5); White Blood Count 10.2 K/mm3 (4.5-10.0)
[2023-01-04 17:35] LABS: Alanine Aminotransferase 29 U/L (6-35); Albumin Level 4.4 g/dL (3.5-5.1); Alkaline Phosphatase 76 U/L (38-126); Anion Gap 9 mmol/L (8-16); Aspartate Amino Transferase 33 U/L (14-36); Bilirubin,Total 0.6 mg/dL (0.2-1.3); Blood Urea Nitrogen 7 mg/dL (7-17); Calcium 9.5 mg/dL (8.4-10.2); Carbon Dioxide 32 mmol/L (22-30); Chloride 96 mmol/L (98-107); Estimated Glomerular Filt Rate 60; Glucose 95 mg/dL (65-110); Lipase 58 U/L (23-300); Sodium 137 mmol/L (137-145)
[2023-01-04 17:45] LABS: Appearance Urine Clear (Clear); Bacteria Urine None Seen /hpf; Bilirubin Urine Negative (Negative); Blood Urine Negative (Negative); Color Urine Yellow (Yellow); Glucose Urine UA Negative (Negative); Ketones Urine Negative (Negative); Leukocyte Esterase Ur Trace LEU/UL (Negative); Need Manual Microscopic Reviewed; Nitrate Urine Negative (Negative); Non Pathogenic Casts 0-2; Protein Urine Negative (Negative); RBC Urine 0-2 /hpf (0-2); Specific Grav Ur 1.004 (1.001-1.035); Squamous Epithelial Cell Urine Occasional /hpf (Few); Urobilinogen Urine 0.2 mg/dL (<2.0)
[2023-01-04 17:53] LABS: Add Urine Microscopic? YES
[2023-01-04 18:11] LABS: Platelet Estimate Increased (Adequate); Schistocytes None Seen (NORMAL)
[2023-01-04 18:12] LABS: Anisocytosis 2+ (NORMAL); Hypochromasia 1+ (NORMAL)
[2023-01-04 18:13] LABS: Microcytosis 1+ (NORMAL)
[2023-01-04 18:41] LABS: Pregnancy On Board Control Positive; Urine Pregnancy Test Negative
--- NOTE | 2023-01-04 18:58 | ED.ABDPAIN ---
HPI - Abdominal Pain General Chief Complaint: Abdominal Pain Stated Complaint: Right Flank Pain Time Seen by Provider: 01/04/23 18:18 History of Present Illness HPI narrative: Patient is a 42-year-old female with a history of hypertension, pancreatic insufficiency, depression presenting with abdominal pain. Patient states that for the last day she has had right lower quadrant pain that radiates into her right flank. Associated with nausea and decreased appetite but no vomiting. States that she has chronic diarrhea which is unchanged. Denies fevers or chills, dysuria, hematuria, vaginal discharge or bleeding. Reports she has had a cholecystectomy as well as surgery for uterine fibroids. Denies chest pain, shortness of breath, cough, leg swelling. Related Data Home Medications Medication Instructions Recorded Confirmed atomoxetine 60 mg capsule 60 mg PO DAILY 12/15/22 01/04/23 (Strattera) bupropion HCl 150 mg tablet,12 hr 150 mg PO DAILY 12/15/22 01/04/23 sustained-release (Wellbutrin SR) cholecalciferol (vitamin D3) 50 50 mcg PO DAILY 12/15/22 01/04/23 mcg (2,000 unit) capsule escitalopram oxalate 20 mg tablet 20 mg PO DAILY 12/15/22 01/04/23 (Lexapro) lamotrigine 100 mg tablet 100 mg PO DAILY 12/15/22 01/04/23 latanoprost 0.005 % eye drops 1 drp EACH EYE DAILY 12/15/22 01/04/23 multivitamin (Daily Multi-Vitamin 1 tablet PO DAILY 12/15/22 01/04/23 tablet) nebivolol 10 mg tablet 10 mg PO DAILY 12/15/22 01/04/23 semaglutide 0.25 mg or 0.5 mg (2 0.25 mg subcut WEEKLY 01/04/23 01/04/23 mg/3 mL) subcutaneous pen injector (Ozempic) spironolactone 50 mg tablet 50 mg PO DAILY 01/04/23 01/04/23 trazodone 100 mg tablet 100 mg PO DAILY PRN Anxiety 01/04/23 01/04/23 cariprazine 1.5 mg capsule 1.5 mg PO HS 01/05/23 01/05/23 (Vraylar) Allergies Allergy/AdvReac Type Severity Reaction Status Date / Time Penicillins Allergy Severe HIVES Verified 01/04/23 17:10 penicillin G Allergy Unknown Hives Verified 01/04/23 17:10 Sulfa (Sulfonamide Allergy Unknown EYES ITCH Verified 01/04/23 17:10 Antibiotics) AND SWELL Review of Systems Review of Systems: All systems reviewed & are unremarkable except as noted in HPI and below PMFSH Past Medical History Medical History (Updated 01/08/23 @ 14:03 by Emily Rome MD) Bloating Cataracts, bilateral Decreased appetite Depression Depression with anxiety Detached retina Diarrhea Exocrine pancreatic insufficiency Glaucoma History of electroconvulsive therapy History of suicide attempt Hypertension Obesity Pale stool PCOS (polycystic ovarian syndrome) PTSD (post-traumatic stress disorder) Rectal bleeding Surgical History Surgical History Hx laparoscopic cholecystectomy Hx of cholecystectomy Family History Family History Grandparent Family history of malignant neoplasm of ovary Diabetes mellitus Cerebrovascular accident Sibling Diabetes mellitus Unknown family medical history Bipolar 1 disorder Mother Diabetes mellitus Social History Social History Smoking status: Never smoker Alcohol intake: never Substance use: former Substance use type: marijuana Last use: 12/08/22 Lack of Transportation: No Lack of Food: Never True Current Housing: I Have Housing Concerned About Future Housing: No Difficulty Paying Gas/Electric Bills: No Difficulty Paying for Meds: No Currently Unemployed: No Education: Don't Know Difficulty w/ Childcare or Family Care: No Gender identity (if verbalized by the patient): Female Spiritual care concerns: No Exam Narrative: GENERAL: Well-appearing, well-nourished, and in no acute distress. Pleasant and cooperative HEAD: Normocephalic, atraumatic. EYES: PERRLA and EOMI. ENT: Nares clear, no rhinorrhea or epistaxis. Mucous
[2023-01-04] MEDS: ONDANSETRON INJ 4 MG/2 ML VIAL IV PUSH (19:18)
[2023-01-04] MEDS: HYDROmorphone HCL INJ (*CRX) 1 MG/ML SYR 0.5 MG IV PUSH (19:18)
[2023-01-04] MEDS: SODIUM CHLORIDE 0.9% IV 1,000 ML 999 ML IV CONT (19:18)
[2023-01-04] MEDS: cefTRIAXone 2 GM/NS 100 ML 2 GM/100 ML BAG IVPB (20:42)
[2023-01-04] MEDS: metroNIDAZOLE 500 MG/ISO 100ML 500 MG/100 ML BAG 100 MG IVPB (20:42)
--- NOTE | 2023-01-04 21:01 | PM.IMHP ---
H&P: HPI History of Present Illness Date/Time: 01/04/23 21:01 Chief Complaint: Right lower quadrant pain Narrative: This is a 42-year-old female with past medical history significant for obesity, hypertension, polycystic ovarian syndrome, depression with anxiety, exocrine pancreatic insufficiency. patient presents room due to right lower quadrant pain for the last 2 days or so, no nausea no vomiting no diarrhea no generalized malaise no fevers no rigors no chills. Patient has been in her usual state of health up until this point. Preliminary workup was significant for CT of abdomen and pelvis was reported as: EXAMINATION: CT abdomen pelvis w con DATE: 01/04/2023 19:14 INDICATION: Right lower quadrant abdominal pain and tenderness. TECHNIQUE: Computed tomography (CT) of the abdomen and pelvis was performed with 100 mL Omnipaque 350 intravenous contrast. Automated exposure control and iterative reconstruction technique were employed. The dose-length product was 1426.27 mGy-cm. COMPARISON: CT abdomen and pelvis 02/20/2020 FINDINGS: The visualized portions of the lung bases are clear without pneumonia or pleural effusion. The heart size is normal. No pericardial effusion. The liver is normal. There are changes of cholecystectomy. The spleen, pancreas, adrenal glands, and kidneys are normal. There are fibroids in the uterus measuring up to 4.3 cm. There is a 4.7 cm cyst in left ovary. The appendix measures 8 mm in diameter near the tip. The appendiceal diameter measured 7 mm on the prior exam. There is mild fat stranding adjacent to the appendix. There are no pathologically enlarged lymph nodes. There is mild thoracic spondylosis. IMPRESSION: 1. Appendiceal diameter of 8 mm with mild local fat stranding, which is indeterminate for acute appendicitis. 2. 4.7 cm cyst in left ovary, likely a follicular cyst. 3. Uterine fibroids. Review of Systems Review of Systems: right lower quadrant pain Constitutional: Constitutional: Denies chills, Denies fever(s) and Denies night sweats Eyes: Eyes: Denies change in vision ENT: Denies dysphagia and Denies odynophagia Cardiovascular: Cardiovascular: Denies chest pain, Denies radiating jaw, neck or arm pain and Denies palpitations Respiratory: Respiratory: Denies cough, Denies excessive phlegm production and Denies dyspnea Gastrointestinal: Gastrointestinal: Reports abdominal pain, Denies dyspepsia, Denies heartburn, Denies diarrhea, Denies loose stools, Denies nausea and Denies vomiting Genitourinary: Genitourinary: Denies dysuria Musculoskeletal: Musculoskeletal: Denies muscle weakness Integumentary/Breasts: Skin/Breast: Denies rash Neurologic: Denies focal weakness and Denies Sensory deficit (Neuro) Psychiatric: Psychiatric: Reports no additional psychiatric complaints and Reports as per HPI Endocrine: Endocrine: Denies cold intolerance, Denies fatigue, Denies heat intolerance, Denies polyphagia, Denies polydipsia and Denies palpitations Hematologic/Lymphatic: Hematologic/Lymphatic: Reports no additional hematologic/lymphatic complaints and Reports as per HPI Allergic/Immunologic: Allergic/Immunologic: Reports no additional allergic/immunologic complaints and Reports as per HPI [facility] Past Medical History Medical History Bloating Cataracts, bilateral Decreased appetite Depression Depression with anxiety Detached retina Diarrhea Exocrine pancreatic insufficiency Hypertension Obesity Pale stool PCOS (polycystic ovarian syndrome) Rectal bleeding Surgical History Surgical History Hx laparoscopic cholecystectomy Hx of cholecystectomy Family History Family History (Updated 01/04/23 @ 22:59 by DAMION Sanchez) Grandparent Family history of malignant neoplasm of ovary Diabetes mellitus Cerebrovascular accident Sibling Diabetes mellitus Unknow
[2023-01-04] MEDS: MORPHINE SULFATE (*CRX) 4 MG/ML INJ IV PUSH (21:53)
--- NOTE | 2023-01-04 22:44 | ADMGEN ---
This patient, Cesario Jewell, was admitted to Medical Room 261-01. Patient/family oriented to hospital policies and general routines including ID bracelet, bed and alarms, visiting hours, pain management, procedures, bathroom and other care routines, personal items, smoking policy, room service/diet, and visiting hours. Information on how to activate the Rapid Response Team has been discussed. Patient/Family are encouraged to report perceived risks to care and to ask questions if they do not understand what they are told or what they should do.
[2023-01-05] VITALS (12 sets, daily range): BP systolic 107–136; BP diastolic 56–83; PULSE 73–89; RESP 12–23; TEMP 36.5–37.3; O2SAT 93–100
[2023-01-05] MEDS: HYDROmorphone HCL INJ (*CRX) 1 MG/ML SYR IV PUSH ×2 (03:02→09:29)
[2023-01-05] MEDS: ONDANSETRON INJ 4 MG/2 ML VIAL IV PUSH (06:40)
--- NOTE | 2023-01-05 06:56 | PC.NURSE ---
Documentation for night 01/04 by Sathya Licea reviewed by this nurse.
--- NOTE | 2023-01-05 07:32 | PM.IMPN ---
Progress Note: A&P Assessment and Plan (1) Abdominal pain: Qualifiers: Abdominal location: lower abdomen, unspecified Qualified Code(s): R10.30 - Lower abdominal pain, unspecified Code(s): R10.9 - Unspecified abdominal pain Status: Inactive Assessment and Plan: admit to regular medical floor suspicion for acute appendicitis general surgery consult NPO supportive care IV cefazolin and flagyl NS at 100 ml per hour (2) Chronic kidney disease, stage 3a: Code(s): N18.31 - Chronic kidney disease, stage 3a Status: Acute Assessment and Plan: continue to monitor BUN and creatinine Baseline Cr seems to run 1.0-1.2 Cr today 1.2 NS at 100 ml per hour (3) Appendicitis: Code(s): K37 - Unspecified appendicitis Status: Acute Assessment and Plan: see 1 Subjective Date/time seen: 01/05/23 07:32 Interval history: HPI obtained from chart, Chief Complaint: Right lower quadrant pain Narrative: This is a 42-year-old female with past medical history significant for obesity, hypertension, polycystic ovarian syndrome, depression with anxiety, exocrine pancreatic insufficiency. patient presents room due to right lower quadrant pain for the last 2 days or so, no nausea no vomiting no diarrhea no generalized malaise no fevers no rigors no chills.? Patient has been in her usual state of health up until this point. 01/05: Patient seen after surgery. She is doing well and is up ambulating in the room and tolerating a clear liquid diet. She is having some pain but she says that it is controlled with p.r.n. pain medication. She is using ice packs which also are helping. Surgery has advanced her diet for dinner to low-fat. I am reaching out to Dr. Ayala to see if she can discharge after tolerating her dinner or she needs to stay another night for observation. Review of Systems Review of Systems: All systems reviewed & are unremarkable except as noted in HPI and below Exam Narrative: General: well appearing, well developed, well nourished, appears stated age. HEENT: normocephalic, atraumatic. Mucous membranes moist. EOMI, PERRLA, bilateral sclera anicteric, no conjunctival injection. Neck supple without JVD, lymphadenopathy, or bruit. Respiratory: clear to auscultation bilaterally. No rales/rhonic/wheezes. Cardiovascular: Regular rate and rhythm, normal S1-S2 upon auscultation. No murmurs, rubs, or clicks. PMI is nondisplaced, capillary re-fill less than 3 second. Abdomen: Soft, round, no pulsatile masses, non-distended and non-tender. No rebound, no guarding. No CVA tenderness, no hepatosplenomegaly. Bowel sounds present to all four quadrants. No high pitch or tinkling sounds, resonant to percussion. Extremities: No cyanosis, clubbing, or edema present. Pulses are palpable 2/2. Active ROM to all four extremities. Neuro: Alert and orientated x 4. PERRLA. Cranial nerves 2-12 intact without focal deficit. Skin: Warm, dry, and intact, without rash, erythema, or lesion. Lines: PIV Incisions: Laparoscopic incisions are clean, dry, and intact with Dermabond. Psych: pleasant, cooperative, normal speech, normal affect, no hallucinations, no dysarthria Objective Data Vital Signs Vital Signs: Vital Signs - 24 hr 01/04/23 17:07 01/04/23 19:16 01/04/23 19:16 Temperature 97.5 F L 98.4 F Pulse Rate 87 86 87 Respiratory Rate 16 13 14 Blood Pressure 142/93 H 128/81 Pulse Oximetry 100 100 100 Oxygen Delivery Room Air 01/04/23 19:17 01/04/23 19:30 01/04/23 19:31 Temperature Pulse Rate 88 83 84 Respiratory Rate 13 12 22 H Blood Pressure 128/81 126/61 Pulse Oximetry 100 100 98 Oxygen Delivery 01/04/23 19:45 01/04/23 19:46 01/04/23 20:00 Temperature Pulse Rate 83 87 81 Respiratory Rate 14 14 15 Blood Pressure 130/73 Pulse Oximetry 100 99 100 Oxygen Delivery 01/04/23 20:01 01/04/23 20:15 01/04/23 20:16 Temperature Pulse R
--- NOTE | 2023-01-05 07:43 | ECG_ITS ---
Measurements Intervals [place] Rate: 77 P: 41 CA: 191 QRS: -2 QRSD: 90 T: 13 QT: 385 QTc: 436 Interpretive Statements SINUS RHYTHM MINIMAL VOLTAGE CRITERIA FOR LVH, CONSIDER NORMAL VARIANT [MEETS CRITERIA IN ONE OF: R(aVL), S(V1), R(V5), R(V5/V6)+S(V1)] POSSIBLE INFERIOR MYOCARDIAL INFARCTION , PROBABLY OLD [30 ms Q WAVE IN II/aVF] CANNOT RULE OUT ANTERIOR INFARCTION NONSPECIFIC T-WAVE ABNORMALITY ABNORMAL ECG NO PREVIOUS ECG AVAILABLE FOR COMPARISON Electronically Signed On 01-05-2023 15:18:30 CDT by Sudhir Shelton M.D.
[2023-01-05] MEDS: SPIRONOLACTONE 50 MG TABLET PO (09:27)
[2023-01-05] MEDS: lamoTRIgine 100 MG TABLET PO (09:27)
[2023-01-05] MEDS: ESCITALOPRAM OXALATE 10 MG TABLET 20 MG PO (09:28)
[2023-01-05] MEDS: metroNIDAZOLE 500 MG/ISO 100ML 500 MG/100 ML BAG 100 MG IVPB (09:28)
[2023-01-05] MEDS: NEBIVOLOL HCL 5 MG TABLET 10 MG PO (09:29)
[2023-01-05 09:38] LABS: Basophils Absolute Auto 0.1 K/mm3 (0.0-0.1); Eosinophils Percent Auto 0.2 % (0-4.4); Hematocrit 40.7 % (37.0-47.0); Hemoglobin 12.8 g/dL (12.0-15.0); Immature Granulocyte Absolute 0.02 K/mm3 (0.00-0.031); Immature Granulocyte Percent A 0.3 % (0-0.5); Lymphocytes Absolute Auto 1.98 K/mm3 (0.9-3.2); Lymphocytes Percent Auto 32.2 % (18.3-44.2); Mean Corpuscular HGB Conc 31.4 g/dl (32-36); Mean Corpuscular Hemoglobin 23.6 pg (26-34); Mean Corpuscular Volume 75.1 fl (80-100); Mean Platelet Volume 9.8 fl (7.4-10.4); Monocytes Absolute Auto 0.5 K/mm3 (0.1-0.6); Monocytes Percent Auto 7.3 % (2.6-8.5); Neutrophils Absolute Auto 3.6 K/mm3 (1.3-6.7); Platelet Count Result 332 k/mm3 (150-375); Red Blood Count 5.42 M/mm3 (4.2-5.4); Red Cell Distribution Width 14.7 % (11.5-14.5); White Blood Count 6.2 K/mm3 (4.5-10.0)
[2023-01-05] MEDS: SODIUM CHLORIDE 0.9% IV 1,000 ML 100 ML IV CONT (09:43)
[2023-01-05 09:47] LABS: Anion Gap 6 mmol/L (8-16); Blood Urea Nitrogen 5 mg/dL (7-17); CRP 1.3 mg/dL (<1.0); Calcium 8.4 mg/dL (8.4-10.2); Carbon Dioxide 30 mmol/L (22-30); Chloride 101 mmol/L (98-107); Estimated CRCL calculation 77 ml/min; Estimated Glomerular Filt Rate > 60; Glucose 90 mg/dL (65-110); Potassium 3.7 mmol/L (3.4-5.0); Sodium 137 mmol/L (137-145)
--- NOTE | 2023-01-05 10:04 | PM.CNGS ---
Assessment and Plan Assessment and plan (1) Appendicitis: Code(s): K37 - Unspecified appendicitis Status: Acute Assessment and Plan: exam and imaging consistent with acute appendicitis, long discussion with patient regarding conservative management with continued IV antibiotics versus surgical appendectomy, patient would like to proceed with appendectomy, was set up for urgent appendectomy today (2) Exocrine pancreatic insufficiency: Code(s): K86.81 - Exocrine pancreatic insufficiency Status: Acute Assessment and Plan: patient is currently taking pancreatic enzymes, scheduled for MR later this week (3) Chronic kidney disease, stage 3a: Code(s): N18.31 - Chronic kidney disease, stage 3a Status: Acute Assessment and Plan: stable, creatinine at baseline (4) PCOS (polycystic ovarian syndrome): Code(s): E28.2 - Polycystic ovarian syndrome Status: Acute Assessment and Plan: stable, continue management per primary care providers History of Present Illness Consult details Consult date: 01/05/23 Reason for consult: abdominal pain Requesting physician: Emily Rome MD Narrative: The patient is female with multiple medical issues presenting to the emergency department complaining right lower quadrant abdominal pain. The patient reports the pain started acutely on Wednesday. The patient reports the pain was initially more diffuse and dull, however is now more localized and constant, sharp. The patient reports associated nausea, poor appetite. The patient denies previous episodes. Workup in the emergency department, including CT, is significant for early appendicitis. Review of Systems Review of Systems: All systems reviewed & are unremarkable except as noted in HPI and below PMFSH Past Medical History Medical History Bloating Cataracts, bilateral Decreased appetite Depression Depression with anxiety Detached retina Diarrhea Exocrine pancreatic insufficiency Hypertension Obesity Pale stool PCOS (polycystic ovarian syndrome) Rectal bleeding Surgical History Surgical History Hx laparoscopic cholecystectomy Hx of cholecystectomy Family History Family History Grandparent Family history of malignant neoplasm of ovary Diabetes mellitus Cerebrovascular accident Sibling Diabetes mellitus Unknown family medical history Bipolar 1 disorder Mother Diabetes mellitus Social History Social History Smoking status: Never smoker Alcohol intake: never Substance use: former Substance use type: marijuana Last use: 12/08/22 Lack of Transportation: No Lack of Food: Never True Current Housing: I Have Housing Concerned About Future Housing: No Difficulty Paying Gas/Electric Bills: No Difficulty Paying for Meds: No Currently Unemployed: No Education: Don't Know Difficulty w/ Childcare or Family Care: No Gender identity (if verbalized by the patient): Female Spiritual care concerns: No Meds Home Medications and Allergies Home Medications Medication Instructions Recorded Confirmed Type atomoxetine 60 mg capsule 60 mg PO DAILY 12/15/22 01/04/23 History (Strattera) bupropion HCl 150 mg tablet,12 hr 150 mg PO DAILY 12/15/22 01/04/23 History sustained-release (Wellbutrin SR) cholecalciferol (vitamin D3) 50 50 mcg PO DAILY 12/15/22 01/04/23 History mcg (2,000 unit) capsule escitalopram oxalate 20 mg tablet 20 mg PO DAILY 12/15/22 01/04/23 History (Lexapro) lamotrigine 100 mg tablet 100 mg PO DAILY 12/15/22 01/04/23 History latanoprost 0.005 % eye drops 1 drp EACH EYE DAILY 12/15/22 01/04/23 History multivitamin (Daily Multi-Vitamin 1 tablet PO DAILY 12/15/22 01/04/23 History tablet)
--- NOTE | 2023-01-05 10:10 | WPDHPUPDATE1 ---
History and Physical Update Update Date/Time: 01/05/23 10:10 History and Physical has been reviewed, including an updated exam of the patient. There are NO changes in the patient's condition. Risks, benefits, and alternatives have been discussed and questions answered. Patient agrees to proceed with procedure.
--- NOTE | 2023-01-05 10:13 | WPDANESEPPF ---
Anes - Initial Pre Proc Eval Procedure: Operation Date: 01/05/23 11:00 Proposed Procedures p Laparoscopic Appendectomy - Venessa Ayala MD Date/Time: 01/05/23 10:13 Surgeon: Brooks Grace MD Pre Op Diagnosis: Possible Appendicitis Patient Data Age: 42 Gender: F Height: 1.68 m Weight: 116 kg Last Vital Signs Temp 36.5 C 01/05/23 05:28 Pulse 85 01/05/23 09:29 Resp 17 01/05/23 05:28 BP 134/71 01/05/23 05:28 Pulse Ox 100 01/05/23 09:30 O2 Del Method Room Air 01/05/23 09:30 Allergies Allergy/AdvReac Type Severity Reaction Status Date / Time Penicillins Allergy Severe HIVES Verified 01/04/23 17:10 penicillin G Allergy Unknown Hives Verified 01/04/23 17:10 Sulfa (Sulfonamide Allergy Unknown EYES ITCH Verified 01/04/23 17:10 Antibiotics) AND SWELL Home Medications Medication Instructions Recorded Confirmed Type atomoxetine 60 mg capsule 60 mg PO DAILY 12/15/22 01/04/23 History (Strattera) bupropion HCl 150 mg tablet,12 hr 150 mg PO DAILY 12/15/22 01/04/23 History sustained-release (Wellbutrin SR) cholecalciferol (vitamin D3) 50 50 mcg PO DAILY 12/15/22 01/04/23 History mcg (2,000 unit) capsule escitalopram oxalate 20 mg tablet 20 mg PO DAILY 12/15/22 01/04/23 History (Lexapro) lamotrigine 100 mg tablet 100 mg PO DAILY 12/15/22 01/04/23 History latanoprost 0.005 % eye drops 1 drp EACH EYE DAILY 12/15/22 01/04/23 History multivitamin (Daily Multi-Vitamin 1 tablet PO DAILY 12/15/22 01/04/23 History tablet) nebivolol 10 mg tablet 10 mg PO DAILY 12/15/22 01/04/23 History ofgpzb-[id number]-[id number] See Rx Instructions PO QID #240 12/17/22 01/04/23 Rx 40,000-126,000-168,000 unit caps capsule, delay rel (Zenpep) semaglutide 0.25 mg or 0.5 mg (2 0.25 mg subcut WEEKLY 01/04/23 01/04/23 History mg/3 mL) subcutaneous pen injector (Ozempic) spironolactone 50 mg tablet 50 mg PO DAILY 01/04/23 01/04/23 History trazodone 100 mg tablet 100 mg PO DAILY PRN Anxiety 01/04/23 01/04/23 History cariprazine 1.5 mg capsule 1.5 mg PO HS 01/05/23 01/05/23 History (Vraylar) docusate sodium 100 mg capsule 100 mg PO BID #20 caps 01/05/23 Rx (Colace) hydrocodone 7.5 mg-acetaminophen 1 tablet PO Q6H PRN pain #20 tabs 01/05/23 Rx 325 mg tablet Laboratory Tests 01/04/23 01/05/23 17:15 09:29 WBC 10.2 H K/mm3 6.2 K/mm3 (4.5-10.0) (4.5-10.0) RBC 5.80 H M/mm3 5.42 H M/mm3 (4.2-5.4) (4.2-5.4) Hgb 13.7 g/dL 12.8 g/dL (12.0-15.0) (12.0-15.0) Hct 43.3 % 40.7 % (37.0-47.0) (37.0-47.0) MCV 74.7 L fl 75.1 L fl (80-100) (80-100) MCH 23.6 L pg 23.6 L pg (26-34) (26-34) MCHC 31.6 L g/dl 31.4 L g/dl (32-36) (32-36) RDW 14.9 H % 14.7 H % (11.5-14.5) (11.5-14.5) Plt Count 448 H k/mm3 332 k/mm3 (150-375) (150-375) MPV 9.9 fl 9.8 fl (7.4-10.4) (7.4-10.4) Immature Gran % (Auto) 0.5 % 0.3 % (0-0.5) (0-0.5) Neut % (Auto) 56.7 % 59.0 % (45.5-73.1) (45.5-73.1) Lymph % (Auto) 34.2 % 32.2 % (18.3-44.2) (18.3-44.2) [place] % (Auto) 7.3 % 7.3 % (2.6-8.5) (2.6-8.5) Eos % (Auto) 0.3 % 0.2 % (0-4.4) (0-4.4) Baso % (Auto) 1.0 % 1.0 % (0.2-1.2) (0.2-1.2) Lymph # (Auto) 3.49 H K/mm3 1.98 K/mm3 (0.9-3.2) (0.9-3.2) [place] # (Auto) 0.8 H K/mm3 0.5 K/mm3 (0.1-0.6) (0.1-0.6) Eos # (Auto) 0.0 K/mm3 0.0 K/mm3 (0-0.3) (0-0.3) Baso # (Auto) 0.1 K/mm3 0.1 K/mm3 (0.0-0.1) (0.0-0.1) Abs Immat Gran (auto) 0.05 H K/mm3 0.02 K/mm3 (0.00-0.031) (0.00-0.031) Absolute Neuts (auto) 5.8 K/mm3 3.6 K/mm3 (1.3-6.7) (1.3-6.7) Absolute Nucleated RBC 0.0 K/mm3 0.0 K/mm3 (0.0-0.012) (0.0-0.012) Nucleated RBC % 0.0 % 0.0 % (0.0-0.2) (0.0-0.2) Platelet Estimate Increased (Adequate) Hypochromasia 1+ (NORMAL) Anisocytosis 2+ (NORMAL) Microcytosis 1+ (NORMAL) Schistocytes None s
[2023-01-05] MEDS: LACTATED RINGERS 1,000 ML 30 ML IV CONT (10:44)
[2023-01-05] MEDS: ceFAZolin 2 GM/D5W 50 ML 2 GM/50 ML BAG IVPB (10:57)
[2023-01-05] MEDS: BUPIVACAINE/EPINEPHRINE 0.5% 50 ML VIAL 30 ML INFILTRATE (11:19)
--- NOTE | 2023-01-05 11:47 | W.PM.PROC2 ---
Procedure Note - Detailed Date of Procedure 01/05/23 Pre-op Diagnosis acute appendicitis Post-op Diagnosis Same Procedure Performed laparoscopic appendectomy Surgeon Venessa Ayala MD Anesthesia General Indications 42-year-old female presenting to the emergency department complaining of right lower quadrant abdominal pain. Workup, including imaging, consistent with early acute appendicitis Findings acute appendicitis no evidence of perforation Description of Procedure The patient was taken to the operating room and placed in the supine position. After adequate induction of general anesthesia, the patient was prepped and draped in the normal sterile fashion. A time-out was then done to verify the patient's identity, as well as the procedure being performed. I began by making a 5 mm incision in the infraumbilical region, through this a Veress needle was placed in the peritoneal cavity. CO2 gas was then insufflated and after adequate pneumoperitoneum was achieved the Veress needle was removed. Then placed a 5 mm Optiview trocar under direct visualization into the peritoneal cavity. I then insufflated through this trocar site and the endoscope was placed into the trocar. Under direct visualization, placed 2 further 5 mm suprapubic port as well as an additional 12 mm port in the left lower abdomen. At this point identified the cecum, I retracted the cecum both medially and superiorly allowing me to expose the appendix. The appendix was noted to be very dilated and inflamed especially towards the tip. The appendix was noted to be very adherent to the right lateral sidewall as well as the ileum. I was able to bluntly dissect the appendix from these adhesions. I then was able to locate the base of the appendix with the cecum. I created a window with the [place] dissector between the appendix itself and the mesoappendix. I then transected the mesoappendix with a white vascular staple load x 2. The Endo-TALISHA was then reloaded with a blue staple load and I transected the base of the appendix. Once the specimen was completely detached, an endo-pouch was placed into the 12 mm port site and the specimen was removed through the endo-pouch. The appendiceal specimen will be sent to pathology for further review. I then copiously irrigated the right lower quadrant. Hemostasis was noted at both staple lines no other pathology was seen in this area. I then moved the camera to the suprapubic port to check our its port of entry. No iatrogenic injury or other pathology was noted in the upper abdomen. I then closed the 12 mm port site with a Russell code and 0 Vicryl suture under direct visualization. At this point, the abdomen was desufflated and all ports were removed. All port sites were closed with 4 Monocryl subcuticular suture. Dermabond was placed on all wounds. The patient tolerated the procedure well and was extubated in the operating room postop. He will be sent to the recovery room in stable condition. Estimated Blood Loss 10 Urine Output 700 Drains No Packing No Pathology Yes Complications No immediate complications Condition Stable Disposition PACU [facility] Billing Surgery - Charge Forward: Surgery Billing
[2023-01-05] MEDS: fentaNYL CITRATE INJ (*CRX) 100 MCG/2 ML VIAL 25 MCG IV PUSH ×4 (12:14→12:56)
[2023-01-05 12:26] LABS: Glucose Point of Care 107 mg/dl (65-105)
--- NOTE | 2023-01-05 15:48 | PHAR ---
HOME MED (Cariprazine [Vraylar] 1.5 mg capsule) VERIFIED 1 DAILY
--- NOTE | 2023-01-05 17:08 | PM.DS ---
DS: Admitting Diagnosis Discharge Date January 05 Admitting Diagnosis appendicitis DS: Discharge Diagnosis Discharge Diagnosis (1) Abdominal pain: Qualifiers: Abdominal location: lower abdomen, unspecified Qualified Code(s): R10.30 - Lower abdominal pain, unspecified Code(s): R10.9 - Unspecified abdominal pain Status: Inactive Assessment and Plan: admit to regular medical floor suspicion for acute appendicitis general surgery consult NPO supportive care IV cefazolin and flagyl NS at 100 ml per hour (2) Chronic kidney disease, stage 3a: Code(s): N18.31 - Chronic kidney disease, stage 3a Status: Acute Assessment and Plan: continue to monitor BUN and creatinine Baseline Cr seems to run 1.0-1.2 Cr today 1.2 NS at 100 ml per hour (3) Appendicitis: Code(s): K37 - Unspecified appendicitis Status: Acute Assessment and Plan: see 1 DS: Summary Hospital Course Hospital Course: Narrative: This is a 42-year-old female with past medical history significant for obesity, hypertension, polycystic ovarian syndrome, depression with anxiety, exocrine pancreatic insufficiency. patient presents room due to right lower quadrant pain for the last 2 days or so, no nausea no vomiting no diarrhea no generalized malaise no fevers no rigors no chills.? Patient has been in her usual state of health up until this point. 01/05:? Patient seen after surgery.? She is doing well and is up ambulating in the room and tolerating a clear liquid diet.? She is having some pain but she says that it is controlled with p.r.n. pain medication.? She is using ice packs which also are helping.? Surgery has advanced her diet for dinner to low-fat.? Dr Ayala is okay with discharge today if patient tolerates dinner. Status at Discharge Cognitive/behavioral status at discharge: A&O x4 Time Spent with Patient Time attestation: Total time spent providing and/or coordinating discharge services:35 Exam Narrative: General: well appearing, well developed, well nourished, appears stated age. HEENT: normocephalic, atraumatic. Mucous membranes moist. EOMI, PERRLA, bilateral sclera anicteric, no conjunctival injection. Neck supple without JVD, lymphadenopathy, or bruit. Respiratory: clear to auscultation bilaterally. No rales/rhonic/wheezes. Cardiovascular: Regular rate and rhythm, normal S1-S2 upon auscultation. No murmurs, rubs, or clicks. PMI is nondisplaced, capillary re-fill less than 3 second. Abdomen: Soft, round, no pulsatile masses, non-distended and non-tender. No rebound, no guarding. No CVA tenderness, no hepatosplenomegaly. Bowel sounds present to all four quadrants. No high pitch or tinkling sounds, resonant to percussion. Extremities: No cyanosis, clubbing, or edema present. Pulses are palpable 2/2. Active ROM to all four extremities. Neuro: Alert and orientated x 4. PERRLA. Cranial nerves 2-12 intact without focal deficit. Skin: Warm, dry, and intact, without rash, erythema, or lesion. Lines: PIV Incisions: Laparoscopic incisions are clean, dry, and intact with Dermabond. Psych: pleasant, cooperative, normal speech, normal affect, no hallucinations, no dysarthria DS: Data Data Completed and Pending Pending studies at discharge: Pending at discharge 01/05/23 11:17 Surgical [PTH] Routine Labs on day of discharge: Labs from last 24 hours 01/05/23 01/05/23 01/04/23 12:21 09:29 17:15 WBC 6.2 10.2 H RBC 5.42 H 5.80 H Hgb 12.8 13.7 Hct 40.7 43.3 MCV 75.1 L 74.7 L MCH 23.6 L 23.6 L MCHC 31.4 L 31.6 L RDW 14.7 H 14.9 H Plt Count 332 448 H MPV 9.8 9.9 Immature Gran % (Auto) 0.3 0.5 Neut % (Auto) 59.0 56.7 Lymph % (Auto) 32.2 34.2 [place] % (Auto) 7.3 7.3 Eos % (Auto) 0.2 0.3 Baso % (Auto) 1.0 1.0 Lymph # (Auto) 1.98 3.49 H [place] # (Auto) 0.5 0.8 H Eos # (Auto) 0.0 0.0 Baso # (Auto) 0.1 0.1
== END 2023-01-05 18:29 | disposition home or self-care (01) ==
LOC: ANHED 18:57 → ANH2MED 22:41
PROVIDERS: Nurse Practitioner Acute Care; Surgery; Admitting Provider Internal Medicine; Emergency Provider Emergency Medicine; PCP Internal Medicine; Visit Provider Internal Medicine
PROC: 0DTJ4ZZ Resection of Appendix, Percutaneous Endoscopic Approach (ICD-10-PCS; CPT 44970; principal; 2023-01-05 11:00)
DX: K35.80 Unspecified acute appendicitis (principal); E66.01 Morbid (severe) obesity due to excess calories; Z68.41 Body mass index [BMI] 40.0-44.9, adult; R19.7 Diarrhea, unspecified; D72.829 Elevated white blood cell count, unspecified; I12.9 Hypertensive chronic kidney disease with stage 1 through stage 4 chronic kidney disease, or unspecified chronic kidney disease; N18.31 Chronic kidney disease, stage 3a; K86.81 Exocrine pancreatic insufficiency; R94.31 Abnormal electrocardiogram [ECG] [EKG]; E28.2 Polycystic ovarian syndrome; D25.9 Leiomyoma of uterus, unspecified; Z90.49 Acquired absence of other specified parts of digestive tract; F41.8 Other specified anxiety disorders; F10.90 Alcohol use, unspecified, uncomplicated; Z79.84 Long term (current) use of oral hypoglycemic drugs; Z79.899 Other long term (current) drug therapy
CPT/HCPCS: 44970; 36415; 74177; 80048; 80053; 81001; 81025; 82948; 83690; 85025; 86140; 87086; 87088; 88304; 93005; 96361; 96365; 96366; 96368; 96375; 96376; 99285; A9270; G0378; J0330; J0690; J0696; J1100; J1170; J1836; J2250; J2270; J2405; J3010; J7030; J7120; Q9967

== ENCOUNTER 2023-01-07 07:24 | Outpatient (CLI) | payer BC, OTHER, SELFPAY ==
--- NOTE | ~2023-01-07 | MR_ITS ---
EXAMINATION: MR MRCP wo/w con/w 3D wo ind DATE: 01/07/2023 08:43 INDICATION: Exocrine pancreatic insufficiency TECHNIQUE: Magnetic resonance imaging (MRI) of the abdomen was performed without and with intravenous contrast. Sequences included coronal T2-weighted SS-FSE ARC, coronal T2-weighted FS SS-FSE, coronal T2-weighted 2D FS FIESTA, Water:Coronal LAVA-Flex, sagittal T2-weighted SS-FSE ARC, axial SSFSE ARC, axial 3D DualEcho, axial DWI B=600, axial T1-weighted LAVA, FAT:Coronal LAVA-Flex, and coronal in and opposed phase LAVA-Flex. Thick-slab T2-weighted FRFSE-XL images were obtained for magnetic resonance cholangiopancreatography (MRCP). Maximum intensity projection 3-D reconstructions of the volumetric data were created by the technologist. Postcontrast sequences included a time course of axial T1-weig hted LAVA, FAT:Coronal LAVA-Flex, coronal in and opposed phase LAVA-Flex, and Water:Coronal LAVA-Flex . COMPARISON: CT, 12/27/2022 CONTRAST: Multihance, 20 cc FINDINGS: ABDOMEN MRI: The liver, spleen, adrenal glands, and kidneys are normal. The gallbladder is surgically absent. The pancreas is unremarkable. There are no pathologically enlarged abdominal lymph nodes. No dilated loops of bowel are evident. Subtle inflammatory change in the right lower quadrant is consis tent with recent appendectomy. There is no abnormal enhancement after contrast administration. There is a moderate volume of stool in the proximal colon. ABDOMEN MRCP: No biliary stones or stricture are identified. The pancreatic duct is normal in course and caliber. IMPRESSION: 1. No MRI correlate for the patient's symptoms. 2. Changes of cholecystectomy and recent appendectomy. Reviewed, dictated and finalized at location L.
== END 2023-01-07 07:25 | disposition home or self-care (01) ==
PROVIDERS: PCP Internal Medicine; Visit Provider Nurse Practitioner Family
DX: K86.81 Exocrine pancreatic insufficiency (principal); Z90.49 Acquired absence of other specified parts of digestive tract; Z90.89 Acquired absence of other organs
CPT/HCPCS: 74183; 76376; A9577

== ENCOUNTER → 2023-03-03 14:44 | Outpatient (CLI) | payer BC, OTHER, SELFPAY ==
--- NOTE | ~2023-03-03 | US_ITS ---
EXAMINATION: US pelvic complete w TV DATE: 03/03/2023 15:18 INDICATION: Unspecified left ovarian cyst. Uterine fibroids. Excessive menstruation. TECHNIQUE: Multiple transabdominal and transvaginal sonographic images of the pelvis were obtained. COMPARISON: CT abdomen and pelvis 01/04/2023 FINDINGS: TRANSABDOMINAL ULTRASOUND: The uterus measures 9.6 x 6.4 x 8.0 cm. There is no free fluid in the pelvis. TRANSVAGINAL ULTRASOUND: The endometrial complex measures 8 mm in thickness. There is a 3.7 cm intramural fibroid. There is a 2.5 cm intramural fibroid. There is a 2.8 cm intramural fibroid. There is a 2.9 cm intramural fibroid . The right ovary is not visualized. The left ovary measures 2.7 x 1.9 x 3.0 cm. IMPRESSION: 1. Normal left ovary. Right ovary not visualized. 2. Uterine fibroids. Reviewed, dictated and finalized at location E.
== END ==
PROVIDERS: PCP Internal Medicine; Visit Provider Advanced Practice Midwife
DX: N83.202 Unspecified ovarian cyst, left side (principal); N92.0 Excessive and frequent menstruation with regular cycle; D25.9 Leiomyoma of uterus, unspecified
CPT/HCPCS: 76830; 76856

== ENCOUNTER 2023-04-26 01:18 | Day surgery (SDC) | payer BC, OTHER, SELFPAY ==
[2023-04-21 13:58] VITALS: BMI 40.3
--- NOTE | 2023-04-21 14:03 | PC.NURSE ---
Addendum entered by Julissa Singh RN 04/21/23 14:10: PT INSTRUCTED TO BRING ALBUTEROL INHALER IN CASE IT WOULD BE NEEDED Original Note: Report to the Outpatient Waiting Room, entrance under the [place] pavilion located off [facility], at time _0615 on date _04/26/23__. Planned Procedure Time: _0815_. Time changes happen often and if your time is changed the preop area will call you the afternoon before. - You and your visitor will be asked to self-screen and do not enter if you have any COVID symptoms. - A mask is optional within the hospital at this time. Patients may have clear liquids (water, carbonated beverages, clear teas, apple juice) until 3 hours prior to surgery with a maximum of 20 ounces. - No food from midnight until time of surgery - Infants may have breast milk until 4 hours before surgery, infant formula 6 hours prior to surgery. - Children will be allowed to drink immediately following surgery. If applicable, please bring a bottle or sippy cup to assist with drinking. Juice, water, soda, and popsicles are readily available. For infants on formula, please bring formula the day of surgery. Pacifiers are allowed. Take the following medications with a SIP of water the morning of surgery: __BUPROPION, ESCITALOPRAM, LAMOTRAGINE, NEBIVOLOL, TRAZADONE IF NEEDED DO NOT STOP ANY OF YOUR OTHER PRESCRIPTION MEDICATIONS PRIOR TO SURGERY ?EXCEPT THE FOLLOWING Medications to discontinue per physician _VITAMINS AND SUPPLIMENTS Date to take last dose 04/22/23 Please no make-up, nail maltese, hairspray, perfume, deodorant, or body powder the day of surgery. No jewelry (including any body piercings) or valuables the day of surgery, leave them at home. Please take a shower or bath the night before, or the morning of, surgery with an antibacterial soap. Wear comfortable, loose fitting clothing. Children are encouraged to wear pajamas. - Jewelry must be removed prior to entering the operating room. Rings and piercings that are not removed may be cut off. - The hospital will not accept responsibility for valuables. - Please leave all valuables, including medications, at home the day of surgery. If you are going home after surgery, a licensed motorcoach driver must drive you home. - NO public transportation without another adult if you receive anesthesia. - We recommend that an adult stay with you for 24 hours following discharge. - We also recommend that you do not drive, make important decision, drink alcoholic beverages, or take any drugs that were not prescribed by your health care provider for at least 24 hours after your discharge time. For Pediatric surgeries, we recommend two adults accompany the child home. Follow any additional instructions given to you from your surgeon. If you or anyone in your household have experienced Covid symptoms in the past week, please notify your surgeon or the nurse liaison at the phone number below for possible testing. Telephone instructions given to _PATIENT_and asked if any additional questions and then verbalized understanding. Patient advised to call surgeon office or pre surgery nurse liaison [phone] if any additional questions.
[2023-04-26] MEDS: ACETAMINOPHEN 500 MG TABLET 1000 MG PO (06:32)
[2023-04-26 07:13] VITALS: BP 122/70; PULSE 70; RESP 16; TEMP 36.7; O2SAT 99
[2023-04-26] MEDS: LACTATED RINGERS 1,000 ML 30 ML IV CONT (07:16)
[2023-04-26] MEDS: SCOPOLAMINE 1 MG PATCH 1 PATCH TRANSDERM (07:16)
[2023-04-26 07:27] LABS: Anion Gap 9 mmol/L (8-16); Blood Urea Nitrogen 10 mg/dL (7-17); Calcium 9.3 mg/dL (8.4-10.2); Carbon Dioxide 24 mmol/L (22-30); Chloride 104 mmol/L (98-107); Estimated CRCL calculation 68 ml/min; Estimated Glomerular Filt Rate 60; Glucose 88 mg/dL (65-110); Potassium 3.8 mmol/L (3.4-5.0); Sodium 137 mmol/L (137-145)
--- NOTE | 2023-04-26 07:31 | WPDHPUPDATE1 ---
History and Physical Update Update Date/Time: 04/26/23 07:31 History and Physical has been reviewed, including an updated exam of the patient. There are NO changes in the patient's condition. Risks, benefits, and alternatives have been discussed and questions answered. Patient agrees to proceed with procedure.
--- NOTE | 2023-04-26 07:31 | PM.HPGS ---
History of Present Illness History of Present Illness Consent: Risks, benefits, and alternatives have been discussed and questions answered. Patient agrees to proceed with procedure. Chief complaint: Menorrhagia, Fibroids Narrative: Cesario Jewell is a 43 year old female with worsening cycles. Cycles have become very heavy with clotting. Pelvic ultrasound shows multiple fibroids although most are listed as intramural. It was recommended to undergo D&C hysteroscopy. Risks of infection, bleeding, perforation, and possible pathology were reviewed. Patient voices understanding and agrees to proceed. Review of Systems Review of Systems: not repeated day of surgery; patient states no changes in status [facility], LAT[facility] Past Medical History Medical History (Updated 04/26/23 @ 07:37 by Astrid Naranjo MD) Cataracts, bilateral Depression with anxiety Detached retina Exocrine pancreatic insufficiency Glaucoma History of electroconvulsive therapy History of glaucoma surgery 2019 History of suicide attempt Hypertension Obesity PCOS (polycystic ovarian syndrome) PTSD (post-traumatic stress disorder) Surgical History Surgical History (Updated 04/26/23 @ 07:36 by Astrid Naranjo MD) History of breast biopsy 2011, 2019, 2021 History of eye surgery History of laparoscopic appendectomy on 01/05/23 PDC History of myomectomy open [address] Doshi History of tonsillectomy Hx laparoscopic cholecystectomy Family History Family History Grandparent Family history of malignant neoplasm of ovary Diabetes mellitus Cerebrovascular accident Sibling Diabetes mellitus Unknown family medical history Bipolar 1 disorder Mother Diabetes mellitus Social History Social History Smoking status: Never smoker Alcohol intake: former Substance use: former Substance use type: marijuana Other substance usage details: 2-3 MONTHS AGO Last use: 12/08/22 Lack of Transportation: No Lack of Food: Never True Current Housing: I Have Housing Concerned About Future Housing: No Difficulty Paying Gas/Electric Bills: No Difficulty Paying for Meds: No Currently Unemployed: No Education: Don't Know Difficulty w/ Childcare or Family Care: No Living arrangements: with family Gender identity (if verbalized by the patient): Female Spiritual care concerns: No Meds Home Medications and Allergies Home Medications Medication Instructions Recorded Confirmed Type atomoxetine 60 mg capsule 60 mg PO DAILY 12/15/22 04/21/23 History (Strattera) bupropion HCl 150 mg tablet,12 hr 150 mg PO DAILY 12/15/22 04/21/23 History sustained-release (Wellbutrin SR) cholecalciferol (vitamin D3) 50 50 mcg PO DAILY 12/15/22 04/21/23 History mcg (2,000 unit) capsule escitalopram oxalate 20 mg tablet 20 mg PO DAILY 12/15/22 04/21/23 History (Lexapro) lamotrigine 100 mg tablet 100 mg PO DAILY 12/15/22 04/21/23 History latanoprost 0.005 % eye drops 1 drp RIGHT EYE DAILY 12/15/22 04/21/23 History multivitamin (Daily Multi-Vitamin 1 tablet PO DAILY 12/15/22 04/21/23 History tablet) nebivolol 10 mg tablet 10 mg PO DAILY 12/15/22 04/21/23 History spironolactone 50 mg tablet 50 mg PO DAILY 01/04/23 04/21/23 History trazodone 100 mg tablet 100 mg PO DAILY PRN Anxiety 01/04/23 04/21/23 History cariprazine 1.5 mg capsule 1.5 mg PO HS 01/05/23 04/21/23 History (Vraylar) linaclotide 72 mcg capsule 72 mcg PO DAILY #30 caps 03/18/23 04/21/23 Rx (Linzess) albuterol 90 mcg/actuation aerosol 90 mcg inhalation PRN PRN 04/21/23 04/21/23 History inhaler Shortness Of Breath docusate sodium 100 mg capsule 100 mg PO BID PRN Constipation 04/21/23 04/21/23 History (Colace) omeprazole magnesium 20 mg 20 mg PO DAILY PRN Indigestion 04/21/23 04/21/23 History tablet,delayed release (Prilosec OTC)
--- NOTE | 2023-04-26 07:44 | WPDANESEPPF ---
Anes - Initial Pre Proc Eval Procedure: Operation Date: 04/26/23 08:15 Proposed Procedures p Hysteroscopy Dilation and Curettage - Astrid Naranjo MD Date/Time: 04/26/23 07:44 Surgeon: Astrid Naranjo MD Pre Op Diagnosis: Menorrhagia, Fibroids Patient Data Age: 43 Gender: F Height: 1.65 m Weight: 112.3 kg Last Vital Signs Temp 36.7 C 04/26/23 07:13 Pulse 70 04/26/23 07:13 Resp 16 04/26/23 07:13 BP 122/70 04/26/23 07:13 Pulse Ox 99 04/26/23 07:13 O2 Del Method Room Air 04/26/23 07:13 Allergies Allergy/AdvReac Type Severity Reaction Status Date / Time Penicillins Allergy Severe HIVES Verified 04/26/23 06:30 penicillin G Allergy Unknown Hives Verified 04/26/23 06:30 Sulfa (Sulfonamide Allergy Unknown EYES ITCH Verified 04/26/23 06:30 Antibiotics) AND SWELL Home Medications Medication Instructions Recorded Confirmed Type atomoxetine 60 mg capsule 60 mg PO DAILY 12/15/22 04/21/23 History (Strattera) bupropion HCl 150 mg tablet,12 hr 150 mg PO DAILY 12/15/22 04/21/23 History sustained-release (Wellbutrin SR) cholecalciferol (vitamin D3) 50 50 mcg PO DAILY 12/15/22 04/21/23 History mcg (2,000 unit) capsule escitalopram oxalate 20 mg tablet 20 mg PO DAILY 12/15/22 04/21/23 History (Lexapro) lamotrigine 100 mg tablet 100 mg PO DAILY 12/15/22 04/21/23 History latanoprost 0.005 % eye drops 1 drp RIGHT EYE DAILY 12/15/22 04/21/23 History multivitamin (Daily Multi-Vitamin 1 tablet PO DAILY 12/15/22 04/21/23 History tablet) nebivolol 10 mg tablet 10 mg PO DAILY 12/15/22 04/21/23 History spironolactone 50 mg tablet 50 mg PO DAILY 01/04/23 04/21/23 History trazodone 100 mg tablet 100 mg PO DAILY PRN Anxiety 01/04/23 04/21/23 History cariprazine 1.5 mg capsule 1.5 mg PO HS 01/05/23 04/21/23 History (Vraylar) linaclotide 72 mcg capsule 72 mcg PO DAILY #30 caps 03/18/23 04/21/23 Rx (Linzess) albuterol 90 mcg/actuation aerosol 90 mcg inhalation PRN PRN 04/21/23 04/21/23 History inhaler Shortness Of Breath docusate sodium 100 mg capsule 100 mg PO BID PRN Constipation 04/21/23 04/21/23 History (Colace) omeprazole magnesium 20 mg 20 mg PO DAILY PRN Indigestion 04/21/23 04/21/23 History tablet,delayed release (Prilosec OTC) tirzepatide 2.5 mg/0.5 mL 2.5 mg subcut WEEKLY 04/21/23 04/21/23 History subcutaneous pen injector (Mounjaro) Laboratory Tests 04/26/23 07:10 Sodium 137 mmol/L (137-145) Potassium 3.8 mmol/L (3.4-5.0) Chloride 104 mmol/L (98-107) Carbon Dioxide 24 mmol/L (22-30) Anion Gap 9 mmol/L (8-16) BUN 10 D mg/dL (7-17) Creatinine 1.20 H mg/dL (0.7-1.0) Estim Creat Clear Calc 68 ml/min Estimated GFR 60 (59 - ) Glucose 88 mg/dL (65-110) Calcium 9.3 mg/dL (8.4-10.2) Patient hx anesthesia problems: none Family hx anesthesia problems: none Results Review: All pre-operative results and documents have been reviewed as part of the pre-operative evaluation. [facility] Past Medical History Medical History Cataracts, bilateral Depression with anxiety Detached retina Exocrine pancreatic insufficiency Glaucoma History of electroconvulsive therapy History of glaucoma surgery 2019 History of suicide attempt Hypertension Obesity PCOS (polycystic ovarian syndrome) PTSD (post-traumatic stress disorder) Surgical History Surgical History History of breast biopsy 2011, 2019, 2021 History of eye surgery History of laparoscopic appendectomy on 01/05/23 PDC History of myomectomy open [address] Doshi History of tonsillectomy Hx laparoscopic cholecystectomy Family History Family History Grandparent Family history of malignant neoplasm of ovary Diabetes mellitus Cerebrovascular accident
[2023-04-26] MEDS: KETOROLAC 30 MG/ML VIAL (*BKC) IV PUSH (08:30)
[2023-04-26 08:34] VITALS: BP 111/75; PULSE 74; RESP 16; O2SAT 96
--- NOTE | 2023-04-26 08:35 | W.PM.PROC2 ---
Procedure Note - Detailed Date of Procedure 04/26/23 Pre-op Diagnosis Menorrhagia, Fibroids Post-op Diagnosis Same Procedure Performed D&C hysteroscopy Surgeon Astrid Naranjo MD Anesthesia MAC Findings The uterus is anteverted and sounds to 8cm. The endometrium appears grossly normal. Description of Procedure The patient is taken to the operating room and placed under anesthesia in the dorsal lithotomy position. She was prepped and draped in usual sterile fashion. [place] speculum was placed in the vagina and the cervix is grasped on the anterior lip with a tenaculum. The uterus was attempted to be sounded and internal cervical stenosis is noted. The Hegar dilators are used and the cervix dilated to a 6 Hegar. The uterus is sounded to 8cm and noted to be anteverted. The diagnostic hysteroscope was then placed and no abnormalities are noted. The hysteroscope was removed. The 00 sharp curette is used to curette the endometrium until a good uterine cry was noted in all areas. All instruments are removed. The patient is awakened from anesthesia and taken to recovery in stable condition. Sponge, needle, and instrument counts are correct per the OR staff. Estimated Blood Loss 5 Drains No Packing No Pathology Yes ( Endometrial curettings) Complications No immediate complications Condition Stable Disposition PACU
[2023-04-26] MEDS: oxyCODONE HCL (*CRX) 5 MG TAB IR PO (09:04)
[2023-04-26 09:05] VITALS: BP 125/78; PULSE 71
[2023-04-26 09:30] VITALS: BP 117/80; PULSE 70; RESP 17; O2SAT 99
== END 2023-04-26 09:39 | disposition home or self-care (01) ==
PROVIDERS: Anesthesiology; PCP Internal Medicine; Visit Provider Obstetrics & Gynecology Gynecology
PROC: 0U5B8ZZ Destruction of Endometrium, Via Natural or Artificial Opening Endoscopic (ICD-10-PCS; CPT 58563; principal; 2023-04-26 08:15)
DX: N92.0 Excessive and frequent menstruation with regular cycle (principal); I10 Essential (primary) hypertension; F41.8 Other specified anxiety disorders; E28.2 Polycystic ovarian syndrome; F43.10 Post-traumatic stress disorder, unspecified; K86.81 Exocrine pancreatic insufficiency; H40.9 Unspecified glaucoma; E66.01 Morbid (severe) obesity due to excess calories; Z68.41 Body mass index [BMI] 40.0-44.9, adult; Z79.51 Long term (current) use of inhaled steroids; Z79.85 Long-term (current) use of injectable non-insulin antidiabetic drugs
CPT/HCPCS: 58558; 36415; 80048; 88305; A9270; J1100; J1885; J2250; J2405; J2704; J3010; J7120

== ENCOUNTER 2023-07-20 07:16 | Outpatient (CLI) | payer BC, OTHER, SELFPAY ==
[2023-07-20 07:56] LABS: Basophils Absolute Auto 0.1 K/mm3 (0.0-0.1); Basophils Percent Auto 0.7 % (0.2-1.2); Eosinophils Percent Auto 0.1 % (0-4.4); Hematocrit 40.2 % (37.0-47.0); Hemoglobin 12.7 g/dL (12.0-15.0); Immature Granulocyte Absolute 0.02 K/mm3 (0.00-0.031); Immature Granulocyte Percent A 0.3 % (0-0.5); Lymphocytes Absolute Auto 2.29 K/mm3 (0.9-3.2); Lymphocytes Percent Auto 30.5 % (18.3-44.2); Mean Corpuscular HGB Conc 31.6 g/dl (32-36); Mean Corpuscular Hemoglobin 23.8 pg (26-34); Mean Corpuscular Volume 75.4 fl (80-100); Mean Platelet Volume 10.1 fl (7.4-10.4); Monocytes Absolute Auto 0.6 K/mm3 (0.1-0.6); Monocytes Percent Auto 7.6 % (2.6-8.5); Neutrophils Absolute Auto 4.6 K/mm3 (1.3-6.7); Neutrophils Percent Auto 60.8 % (45.5-73.1); Platelet Count Result 343 k/mm3 (150-375); Red Blood Count 5.33 M/mm3 (4.2-5.4); Red Cell Distribution Width 15.1 % (11.5-14.5); White Blood Count 7.5 K/mm3 (4.5-10.0)
[2023-07-20 08:02] LABS: Appearance Urine Clear (Clear); Bacteria Urine None Seen /hpf; Bilirubin Urine Negative (Negative); Blood Urine Negative (Negative); Color Urine Yellow (Yellow); Glucose Urine UA Negative (Negative); Ketones Urine Trace mg/dL (Negative); Leukocyte Esterase Ur Trace LEU/UL (NEGATIVE); Nitrate Urine Negative (Negative); Non Pathogenic Casts 0-2; Protein Urine Negative (Negative); RBC Urine 0-2 /hpf (0-2); Specific Grav Ur 1.022 (1.001-1.035); Squamous Epithelial Cell Urine None seen /hpf (Few); Urobilinogen Urine 0.2 mg/dL (<2.0); WBC Urine 0-5 /hpf (0-3)
[2023-07-20 08:12] LABS: Add Urine Microscopic? YES
[2023-07-20 08:17] LABS: Albumin Level 4.1 g/dL (3.5-5.1); Anion Gap 6 mmol/L (8-16); Blood Urea Nitrogen 8 mg/dL (7-17); Calcium 8.8 mg/dL (8.4-10.2); Carbon Dioxide 24 mmol/L (22-30); Chloride 107 mmol/L (98-107); Estimated Glomerular Filt Rate > 60; Glucose 100 mg/dL (65-110); Phosphorus 3.2 mg/dL (2.5-4.5); Sodium 137 mmol/L (137-145); Uric Acid 4.4 mg/dL (2.5-7.5)
[2023-07-20 08:23] LABS: Creatinine Urine 230.2 mg/dL
[2023-07-20 08:27] LABS: MALB Creatinine Ratio 3.1 mg/g (0-30); Microalbumin Urine Random 7.2 mg/L (0-16.7)
[2023-07-20 08:28] LABS: Parathyroid Intact 55.2 pg/mL (7.5-53.5)
== END 2023-07-20 07:17 | disposition home or self-care (01) ==
PROVIDERS: PCP Internal Medicine; Visit Provider Internal Medicine
DX: R79.89 Other specified abnormal findings of blood chemistry (principal)
CPT/HCPCS: 36415; 80069; 81001; 82043; 83970; 84550; 85025

== ENCOUNTER 2023-07-31 10:25 | Outpatient (CLI) | payer BC, OTHER, SELFPAY ==
[2023-07-31 13:32] LABS: Vitamin D 25 Hydroxy 47.7 ng/mL
== END 2023-07-31 10:26 | disposition home or self-care (01) ==
PROVIDERS: PCP Internal Medicine; Visit Provider Internal Medicine
DX: R79.89 Other specified abnormal findings of blood chemistry (principal)
CPT/HCPCS: 36415; 82306

== ENCOUNTER 2023-10-21 12:36 | Outpatient (CLI) | payer BC, OTHER, SELFPAY ==
--- NOTE | ~2023-10-21 | MM_ITS ---
EXAMINATION: MM screening leyla BI w maryjo HISTORY: Screening TECHNIQUE: Craniocaudal and mediolateral oblique 3-D tomosynthesis images were obtained and synthetic 2-D images were generated. CAD analysis was submitted and interpreted. COMPARISON: Comparison to multiple prior studies sequentially, with oldest reviewed study dated 06/24. BREAST PARENCHYMAL COMPOSITION: Not dense: There are scattered areas of fibroglandular density. FINDINGS: There is no evidence of suspicious mass, calcification, or architectural distortion to sugg est malignancy in either breast. There has been no suspicious interval change. IMPRESSION: 1. No mammographic evidence of malignancy. 2. Recommend routine screening mammography in one year. BI-RADS Category 1: Negative Reviewed, dictated and finalized at location B.
== END 2023-10-21 12:37 ==
PROVIDERS: PCP Internal Medicine; Visit Provider Obstetrics & Gynecology Gynecology
DX: Z12.31 Encounter for screening mammogram for malignant neoplasm of breast (principal)
CPT/HCPCS: 77063; 77067

== ENCOUNTER 2024-01-01 09:24 | Outpatient (CLI) | payer BC, OTHER, SELFPAY ==
[2024-01-01 10:41] LABS: Albumin Level 4.3 g/dL (3.5-5.1); Anion Gap 10 mmol/L (4-12); Blood Urea Nitrogen 8 mg/dL (7-17); Calcium 8.9 mg/dL (8.4-10.2); Carbon Dioxide 26 mmol/L (22-30); Chloride 102 mmol/L (98-107); Estimated Glomerular Filt Rate 60; Glucose 89 mg/dL (65-110); Phosphorus 2.5 mg/dL (2.5-4.5); Potassium 3.9 mmol/L (3.4-5.0); Sodium 138 mmol/L (137-145)
[2024-01-01 10:48] LABS: Parathyroid Intact 41.8 pg/mL (14.5-75.2)
== END 2024-01-01 09:25 | disposition home or self-care (01) ==
LOC: ANHLAB 09:27
PROVIDERS: PCP Internal Medicine; Visit Provider Internal Medicine
DX: R79.89 Other specified abnormal findings of blood chemistry (principal)
CPT/HCPCS: 36415; 80069; 83970

== ENCOUNTER 2024-01-17 07:45 | Outpatient (CLI) | payer BC, OTHER, SELFPAY ==
--- NOTE | ~2024-01-17 | MR_ITS ---
EXAMINATION: MR shoulder RT wo con DATE: 01/17/2024 08:51 INDICATION: Generalized right shoulder pain and limited range of motion TECHNIQUE: Magnetic resonance imaging (MRI) of the affected shoulder was performed without intravenou s contrast. Sequences included axial PD-weighted FS FSE, coronal oblique PD-weighted FS FSE, coronal oblique T2-weighted FS FSE, sagittal PD-weighted FS FSE, and sagittal T1-weighted SE. COMPARISON: Right shoulder radiographs dated 08/05/2023 FINDINGS: Coracoacromial arch: The acromion undersurface is curved in morphology (type II). The coracoacromial ligament is normal. M ild acromioclavicular osteoarthritis. Rotator cuff: Mild supraspinatus and infraspinatus tendinopathy. There is a small partial-thickness intrasubstance tear along the superior facet footplate of the supraspinatus tendon which measures 9 mm AP and involv es up to half of the tendon thickness. No evident involvement of the bursal or articular surfaces. Th e teres minor and subscapularis tendons are normal. Normal rotator cuff muscle bulk and signal. Biceps tendon, glenoid labrum and glenohumeral cartilage: Long head of the biceps tendon is normal. Glenoid labrum is normal. Glenohumeral cartilage is normal. Fluid: Physiologic amount of fluid in the glenohumeral joint and biceps tendon sheath. No loose osteochondr al bodies. Small amount of fluid in the subacromial/subdeltoid bursa consistent with mild bursitis. Bones: Normal marrow signal with no edema, fracture or abnormal marrow replacing process. IMPRESSION: 1. Supraspinatus and infraspinatus tendinopathy with small moderate severity intrasubstance tear jesus g the superior facet footplate of the supraspinatus tendon. 2. Mild subacromial/subdeltoid bursitis. 3. Mild acromioclavicular osteoarthritis. Reviewed, dictated and finalized at location B. IMPRESSION: 1. Supraspinatus and infraspinatus tendinopathy with small moderate severity in trasubstance tear along the superior facet footplate of the supraspinatus tendo n. 2. Mild subacromial/subdeltoid bursitis. 3. Mild acromioclavicular osteoarthritis.
== END 2024-01-17 07:46 | disposition home or self-care (01) ==
LOC: MICIMG 07:45
PROVIDERS: PCP Internal Medicine; Visit Provider Orthopaedic Surgery
DX: M75.81 Other shoulder lesions, right shoulder (principal); M19.011 Primary osteoarthritis, right shoulder
CPT/HCPCS: 73221

== ENCOUNTER 2024-01-17 07:46 | Outpatient (CLI) | payer BC, OTHER, SELFPAY ==
--- NOTE | ~2024-01-17 | MR_ITS ---
EXAMINATION: MR brain/brain stem wo/w con DATE: 01/17/2024 09:10 INDICATION: Facial numbness. TECHNIQUE: Magnetic resonance imaging (MRI) of the brain and brainstem was performed without and with 20 mL MultiHance intravenous contrast. COMPARISON: Brain MRI 03/28/2020 FINDINGS: There is no intracranial hemorrhage, acute infarction, or abnormal intracranial mass lesion . The ventricles are normal in size. The paranasal sinuses are clear. There are likely changes of rig ht ocular lens replacement surgery. Left ocular globe is absent. The mastoid air cells are normal. IMPRESSION: 1. Normal brain. Reviewed, dictated and finalized at location A. IMPRESSION: 1. Normal brain.
== END 2024-01-17 07:47 | disposition home or self-care (01) ==
LOC: MICIMG 07:47
PROVIDERS: PCP Internal Medicine; Visit Provider Internal Medicine
DX: R20.0 Anesthesia of skin (principal)
CPT/HCPCS: 70553; A9577

== ENCOUNTER 2024-02-16 08:34 | Outpatient (CLI) | payer BC, OTHER, SELFPAY ==
--- NOTE | 2024-02-16 08:41 | ECG_ITS ---
Test Date: 2024-02-16 08:46:09 Measurements Intervals [place] Rate: 77 P: 33 VA: 175 QRS: -5 QRSD: 85 T: 12 QT: 360 QTc: 409 Interpretive Statements SINUS RHYTHM LOW QRS VOLTAGE POOR R-WAVE PROGRESSION ABNORMAL ECG No previous ECG available for comparison Electronically Signed On 02-16-2024 11:10:49 CDT by Gregory Rodríguez M.D.
== END 2024-02-16 08:35 | disposition home or self-care (01) ==
LOC: ANHSURGERY 08:37
PROVIDERS: PCP Internal Medicine; Visit Provider Orthopaedic Surgery
DX: Z01.818 Encounter for other preprocedural examination (principal); I10 Essential (primary) hypertension; R94.31 Abnormal electrocardiogram [ECG] [EKG]
CPT/HCPCS: 93005

== ENCOUNTER 2024-02-16 13:29 | Outpatient (CLI) | payer BC, OTHER, SELFPAY ==
--- NOTE | ~2024-02-16 | MR_ITS ---
EXAMINATION: MR orbits face neck wo/w con DATE: 02/16/2024 14:17 INDICATION: Abnormal mouth sensation. Tingling in the tongue. TECHNIQUE: Magnetic resonance imaging (MRI) of the face was performed without and with 20 mL MultiHan ce intravenous contrast. COMPARISON: Brain MRI 01/17/2024 FINDINGS: Left ocular globe is absent. There are likely changes of right ocular lens replacement surg franki. There are no pathologically enlarged lymph nodes. The tongue is unremarkable. The musculature is normal. The major salivary glands are normal. There is no abnormal mass. There is mild mucosal thick ening in the ethmoid sinuses. IMPRESSION: 1. No etiology for the patient's symptoms. Reviewed, dictated and finalized at location A.
== END 2024-02-16 13:30 | disposition home or self-care (01) ==
LOC: MICIMG 13:30
PROVIDERS: PCP Internal Medicine; Visit Provider Internal Medicine
DX: R44.9 Unspecified symptoms and signs involving general sensations and perceptions (principal); R43.2 Parageusia
CPT/HCPCS: 70543; A9577

== ENCOUNTER 2024-02-23 02:02 | Day surgery (SDC) | payer BC, OTHER, SELFPAY ==
[2024-02-11 13:07] VITALS: BMI 38.4
--- NOTE | 2024-02-11 13:25 | PC.NURSE ---
Report to the Outpatient Waiting Room, entrance under the green pavilion located off [facility], at time _06:00AM on date 02/23/24 . Planned Procedure Time: __07:30am .? Time changes happen often and if your time is changed the preop area will call you the afternoon before. - You and your visitor will be asked to self-screen and do not enter if you have any COVID symptoms. Please call surgeon if you need to reschedule. - Patients may have clear liquids (water, carbonated beverages, clear teas, apple juice) until 3 hours prior to surgery with a maximum of 20 ounces. - No food from midnight until time of surgery and no smoking Take only the following medications with a SIP of water on the morning of surgery: _ALBUTEROL IF NEEDED; STRATERRA, BUPROPRION, ESCITALOPRAM, VRAYLAR, NEBIVOLOL, LATANOPROST EYE DROPS DO NOT STOP ANY OF YOUR OTHER PRESCRIPTION MEDICATIONS PRIOR TO SURGERY EXCEPT THE FOLLOWING Medications to discontinue per physician DICLOFENAC Date to take last dose__PER DR. HERRING-CALL Wednesday02/14/24 TO INQUIRE Please no make-up, nail sri lankan, hairspray, perfume, deodorant, or body powder the day of surgery.? No jewelry (including any body piercings) or valuables the day of surgery, leave them at home.? Please take a shower or bath the night before, or the morning of, surgery with an antibacterial soap.? Wear comfortable, loose fitting clothing.? - Jewelry must be removed prior to entering the operating room.? Rings and piercings that are not removed may be cut off. - The hospital will not accept responsibility for valuables.? - Please leave all valuables, including medications, at home the day of surgery. If you are going home after surgery, a licensed grab driver must drive you home.? - NO public transportation without another adult if you receive anesthesia. - We recommend that an adult stay with you for 24 hours following discharge. - We also recommend that you do not drive, make important decision, drink alcoholic beverages, or take any drugs that were not prescribed by your health care provider for at least 24 hours after your discharge time. Follow any additional instructions given to you from your surgeon. Telephone instructions given to __MICKY and asked if any additional questions and then verbalized understanding. Patient advised to call surgeon office or pre surgery nurse liaison [phone] if any additional questions.
--- NOTE | 2024-02-22 08:51 | PM.IMHP ---
H&P: HPI History of Present Illness Date/Time: 02/22/24 08:51 Chief Complaint: Patient shoulder pain right with the tearing of the rotator cuff. She has failed conservative treatment and would like to consider surgical repair. She has a tear of the rotator cuff as well as AC joint arthrosis. Review of Systems Musculoskeletal: Musculoskeletal: Reports arthralgias, Reports joint swelling and Reports stiffness [facility] Past Medical History Medical History Cataracts, bilateral Depression with anxiety Detached retina Exocrine pancreatic insufficiency Glaucoma History of electroconvulsive therapy History of glaucoma surgery 2019 History of suicide attempt Hypertension Irritable bowel syndrome with constipation Obesity PCOS (polycystic ovarian syndrome) PTSD (post-traumatic stress disorder) Surgical History Surgical History History of breast biopsy 2011, 2019, 2021 History of eye surgery History of laparoscopic appendectomy on 01/05/23 PDC History of myomectomy open [address] Doshi History of tonsillectomy Hx laparoscopic cholecystectomy Family History Family History Grandparent Family history of malignant neoplasm of ovary Diabetes mellitus Cerebrovascular accident Sibling Diabetes mellitus Unknown family medical history Bipolar 1 disorder Narcolepsy Mother Diabetes mellitus Glaucoma Hypertension Father CKD (chronic kidney disease) stage 4, GFR 15-29 ml/min COPD (chronic obstructive pulmonary disease) Malignant neoplasm of prostate Asthma Social History Social History Smoking status: Never smoker Second hand tobacco smoke exposure: Yes Alcohol intake: never Substance use: current Substance use type: marijuana Other substance usage details: EDIBLE Last use: 05/10/23 Do You Feel Safe in your Home?: Yes Lack of Transportation: YES Lack of Food: Never True Current Housing: I Have Housing Concerned About Future Housing: No Difficulty Paying Gas/Electric Bills: No Difficulty Paying for Meds: No Currently Unemployed: No Education: Master's Degree or Higher Difficulty w/ Childcare or Family Care: No Living arrangements: with family Occupation/Education: occupation 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 Gender identity (if verbalized by the patient): Female Spiritual care concerns: No Meds Home Medications and Allergies Home Medications Medication Instructions Recorded Confirmed Type atomoxetine 60 mg capsule 60 mg PO DAILY 12/15/22 02/11/24 History (Strattera) bupropion HCl 150 mg tablet,12 hr 150 mg PO DAILY 12/15/22 02/11/24 History sustained-release (Wellbutrin SR) escitalopram oxalate 20 mg tablet 20 mg PO DAILY 12/15/22 02/11/24 History (Lexapro) latanoprost 0.005 % eye drops 1 drp RIGHT EYE DAILY 12/15/22 02/11/24 History nebivolol 10 mg tablet 10 mg PO DAILY 12/15/22 02/11/24 History cariprazine 1.5 mg capsule 1.5 mg PO HS 01/05/23 02/11/24 History (Vraylar) albuterol 90 mcg/actuation aerosol 90 mcg inhalation PRN PRN 04/21/23 02/11/24 History inhaler Shortness Of Breath omeprazole magnesium 20 mg 20 mg PO DAILY PRN Indigestion 04/21/23 02/11/24 History tablet,delayed release (Prilosec OTC) tirzepatide 2.5 mg/0.5 mL 2.5 mg subcut WEEKLY 04/21/23 02/11/24 History subcutaneous pen injector (Nataliia) linaclotide 72 mcg capsule See Rx Instructions .Route 07/23/23 02/11/24 Rx (Linzess) .COMPLEX #30 caps montelukast 10 mg tablet 10 mg PO DAILY 08/05/23 02/11/24 History relugolix 40 mg-estradiol 1 1 tablet PO DAILY 08/05/23 02/11/24 History mg-norethindrone acetate 0.5 mg tablet (Myfembree) diclofenac sodium 75 mg 75 mg PO BID #60 tabs 12/09/23 02/11/24 Rx
--- NOTE | 2024-02-22 17:50 | WPDANESEPP ---
Anes - Eval Pre Procedure Procedure: Operation Date: 02/23/24 07:30 Proposed Procedures p Right Shoulder Arthroscopy, Open Rotator Cuff Repair, Distal Clavicle Excision - Deyvi Price MD Date/Time: 02/22/24 17:50 Pre Op Diagnosis: right rotator cuff tear, ac arthritis Patient Data Age: 44 Gender: F Height: 1.68 m Weight: 107.9 kg Allergies Allergy/AdvReac Type Severity Reaction Status Date / Time Penicillins Allergy Severe HIVES Verified 01/25/24 13:54 penicillin G Allergy Unknown Hives Verified 01/25/24 13:54 Sulfa (Sulfonamide Allergy Unknown EYES ITCH Verified 01/25/24 13:54 Antibiotics) AND SWELL Home Medications Medication Instructions Recorded Confirmed Type atomoxetine 60 mg capsule 60 mg PO DAILY 12/15/22 02/11/24 History (Strattera) bupropion HCl 150 mg tablet,12 hr 150 mg PO DAILY 12/15/22 02/11/24 History sustained-release (Wellbutrin SR) escitalopram oxalate 20 mg tablet 20 mg PO DAILY 12/15/22 02/11/24 History (Lexapro) latanoprost 0.005 % eye drops 1 drp RIGHT EYE DAILY 12/15/22 02/11/24 History nebivolol 10 mg tablet 10 mg PO DAILY 12/15/22 02/11/24 History cariprazine 1.5 mg capsule 1.5 mg PO HS 01/05/23 02/11/24 History (Vraylar) albuterol 90 mcg/actuation aerosol 90 mcg inhalation PRN PRN 04/21/23 02/11/24 History inhaler Shortness Of Breath omeprazole magnesium 20 mg 20 mg PO DAILY PRN Indigestion 04/21/23 02/11/24 History tablet,delayed release (Prilosec OTC) tirzepatide 2.5 mg/0.5 mL 2.5 mg subcut WEEKLY 04/21/23 02/11/24 History subcutaneous pen injector (Mounjaro) linaclotide 72 mcg capsule See Rx Instructions .Route 07/23/23 02/11/24 Rx (Linzess) .COMPLEX #30 caps montelukast 10 mg tablet 10 mg PO DAILY 08/05/23 02/11/24 History relugolix 40 mg-estradiol 1 1 tablet PO DAILY 08/05/23 02/11/24 History mg-norethindrone acetate 0.5 mg tablet (Myfembree) diclofenac sodium 75 mg 75 mg PO BID #60 tabs 12/09/23 02/11/24 Rx tablet,delayed release Patient hx anesthesia problems: none Family hx anesthesia problems: none Results Review: All pre-operative results and documents have been reviewed as part of the pre-operative evaluation. [facility] Past Medical History Medical History (Updated 02/22/24 @ 17:52 by Abram Melton Jr., CRNA) Bipolar 1 disorder Cataracts, bilateral Chronic kidney disease, stage 3a Depression with anxiety Detached retina Exocrine pancreatic insufficiency Glaucoma History of electroconvulsive therapy History of glaucoma surgery 2019 History of suicide attempt Hypertension Irritable bowel syndrome with constipation Marijuana use Obesity PCOS (polycystic ovarian syndrome) PTSD (post-traumatic stress disorder) Surgical History Surgical History History of breast biopsy 2011, 2019, 2021 History of eye surgery History of laparoscopic appendectomy on 01/05/23 PDC History of myomectomy open [address] Doshi History of tonsillectomy Hx laparoscopic cholecystectomy Family History Family History Grandparent Family history of malignant neoplasm of ovary Diabetes mellitus Cerebrovascular accident Sibling Diabetes mellitus Unknown family medical history Bipolar 1 disorder Narcolepsy Mother Diabetes mellitus Glaucoma Hypertension Father CKD (chronic kidney disease) stage 4, GFR 15-29 ml/min COPD (chronic obstructive pulmonary disease) Malignant neoplasm of prostate Asthma Social History Social History Smoking status: Never smoker Second hand tobacco smoke exposure: Yes Alcohol intake: never Substance use: current Substance use type: marijuana Other substance usage details: EDIBLE Last use: 05/10/23 Do You Feel Safe in your Home?: Yes Lack of Transportation: YES Lack of Food: Never True
[2024-02-23] VITALS (8 sets, daily range): BP systolic 101–133; BP diastolic 58–81; PULSE 87–114; RESP 16–18; TEMP 36.2–36.7; O2SAT 97–100
[2024-02-23] MEDS: ACETAMINOPHEN 500 MG TABLET 1000 MG PO (06:28)
[2024-02-23] MEDS: LACTATED RINGERS 1,000 ML 30 ML IV CONT ×2 (06:34→09:08)
--- NOTE | 2024-02-23 06:44 | P.PNAN_ITS ---
Anes - Eval Final PreProcedure Day of Procedure 02/23/24 06:44 Patient weight: obese Heart: regular rate and rhythm Lungs: clear to auscultation Airway: Mallampati scale class II Neurological: alert and oriented Last oral intake: >/= 8 hours ASA classification: III Emergent: no Anesthetic plan: proceed Anesthesia type and monitoring: general ETT and standard monitoring Results Review: All pre-operative results and documents have been reviewed as part of the pre- operative evaluation. Informed Consent: The patient's anesthetic plan and its attendant risks and benefits were discussed with the patient/family/POA. Questions were solicited and answers provided to the satisfaction of the patient/family/POA.
--- NOTE | 2024-02-23 07:03 | WPDHPUPDATE1 ---
History and Physical Update Update Date/Time: 02/23/24 07:03 History and Physical has been reviewed, including an updated exam of the patient. There are NO changes in the patient's condition. Risks, benefits, and alternatives have been discussed and questions answered. Patient agrees to proceed with procedure.
[2024-02-23] MEDS: KETOROLAC 15 MG/ML VIAL (*BKC) IV PUSH (07:14)
--- NOTE | 2024-02-23 07:14 | WPDANESPNB ---
Anes - Peripheral Nerve Block Date/Time: 02/23/24 07:14 I have discussed with the patient/family/POA the placement of a peripheral nerve block for post-operative pain management, including associated risks, benefits, complications, and side effects. Alternative methods of post-operative analgesia were detailed. Questions were solicited and answers provided to the satisfaction of the patient/family/POA. Time-Out: A pre-procedural Time-Out was completed immediately before starting the procedure and confirmed: Patient Identification, Site, Procedure, Patient Position and the Availability of Requisite Equipment. Clinical Indications: Acute post-operative pain management requested by the operative surgeon. Nerve Block Insertion Note Anes-nerve block: interscalene right Patient position: supine Skin prep: chlorhexidine Needle: 22 gauge, stimulating, insulated echogenic needle. Needle length: 50 mm Technique: ultrasound Injectate: bupivacaine 0.5% with epi 5 mcg/ml (30cc) and dexamethasone (mg) (8) Observations: tolerated well Complications: none Procedure start time:: 705 Procedure end time:: 715
[2024-02-23] MEDS: ceFAZolin 2 GM/D5W 50 ML 2 GM/50 ML BAG IVPB (07:21)
[2024-02-23] MEDS: LIDO 1%/EPINEPHRINE 1:100,000 20 ML VIAL 30 ML INFILTRATE (08:10)
--- NOTE | 2024-02-23 08:42 | P.OP_ITS ---
Procedure Note - Detailed Date of Procedure 02/23/24 Pre-op Diagnosis right rotator cuff tear, ac arthritis Post-op Diagnosis Same Procedure Performed Rotator cuff repair, distal clavicle excision Surgeon Deyvi Price MD Senior Online Marketing Manager Abdirashid Anesthesia General Indications Pain and rotator cuff tearing Description of Procedure Patient brought to the operative room #7. A general anesthetic was administered. The patient was placed in the beach chair position with the RIGHT shoulder exposed.? After sterile prep and drape, standard posterior and lateral portals were used for arthroscopy. The joint itself looked reasonably good the biceps tendon was intact.? There was fraying and tearing of the rotator cuff area in the supraspinatus tear region. This was gently debrided.? The subacromial space had an intense bursa, this was debrided with a shaver and acromioplasty performed arthroscopically.? The subacromial space was quite tight initially. I then proceeded to open the shoulder. A longitudinal incision made from the AC joint distalward over the shoulder.? Dissection carried down to the fascia. The fascia overlying the acromioclavicular joint was split. The AC joint found and a distal clavicle excision performed removing 3 to 4 millimeters of bone.? The edges beveled.? The deltoid was then split from the tip of the acromion. The remainder of the bursa was debrided.? The rotator cuff was torn in the supraspinatus interval. This was debrided and repaired to bone using #2 Ethibond suture.? At this point the deltoid was repaired to itself,the acromion and the trapezius #2 Ethibond. The skin was closed with 2-0 Vicryl and chuck.? Sterile dressing applied patient tolerated well left the operating room satisfactory condition. Estimated Blood Loss 50 Drains No Packing No Pathology None sent Complications No immediate complications Condition Stable Disposition PACU [facility] Billing Surgery - Charge Forward: Surgery Billing ([id number] RTC Repair [id number] DCE)
== END 2024-02-23 10:45 | disposition home or self-care (01) ==
PROVIDERS: PCP Internal Medicine; Visit Provider Orthopaedic Surgery
PROC: (CPT 29805; principal; 2024-02-23 07:30)
DX: M75.111 Incomplete rotator cuff tear or rupture of right shoulder, not specified as traumatic (principal); M19.011 Primary osteoarthritis, right shoulder; G89.18 Other acute postprocedural pain; I12.9 Hypertensive chronic kidney disease with stage 1 through stage 4 chronic kidney disease, or unspecified chronic kidney disease; N18.31 Chronic kidney disease, stage 3a; K58.1 Irritable bowel syndrome with constipation; E28.2 Polycystic ovarian syndrome; F43.10 Post-traumatic stress disorder, unspecified; F41.8 Other specified anxiety disorders; F31.9 Bipolar disorder, unspecified; K86.81 Exocrine pancreatic insufficiency; F12.90 Cannabis use, unspecified, uncomplicated; E66.9 Obesity, unspecified; Z68.37 Body mass index [BMI] 37.0-37.9, adult; Z79.51 Long term (current) use of inhaled steroids; Z79.85 Long-term (current) use of injectable non-insulin antidiabetic drugs; Z98.890 Other specified postprocedural states; Z90.49 Acquired absence of other specified parts of digestive tract; Z80.41 Family history of malignant neoplasm of ovary; Z80.42 Family history of malignant neoplasm of prostate; Z82.49 Family history of ischemic heart disease and other diseases of the circulatory system
CPT/HCPCS: 64415; 23120; 23412; A4565; A9270; J0330; J0690; J1100; J1596; J1885; J2003; J2004; J2250; J2371; J2405; J2704; J3010; J7030; J7120

== ENCOUNTER 2024-05-06 14:07 | Emergency (ER) | payer BC, OTHER, SELFPAY ==
--- NOTE | ~2024-05-06 | XR_ITS ---
XR chest 2V Ordering provider: Kenji Diaz MD History: 44 years Female with . CP . Comparison: January 20, 2019 FINDINGS: MEDIASTINUM: The cardiac silhouette is not enlarged. LUNGS: No infiltrates, effusions or pneumothorax. OTHER: No free air under the diaphragm. IMPRESSION: No acute cardiopulmonary pathology. Reviewed, dictated and finalized at location A. ER MACHINE OPERATOR
--- NOTE | 2024-05-06 14:08 | ECG_ITS ---
Test Date: 2024-05-06 14:16:53 Measurements Intervals [place] Rate: 79 P: 45 VT: 164 QRS: 3 QRSD: 83 T: 38 QT: 364 QTc: 418 Interpretive Statements SINUS RHYTHM POSSIBLE ANTERIOR MYOCARDIAL INFARCTION , PROBABLY OLD [30 ms Q WAVE IN V3/V4, OR R < 0.2 mV IN V4] ABNORMAL ECG Electronically Signed On 05-07-2024 08:46:24 MANUFACTURERS SERVICE REPRESENTATIVE by Sudhir Shelton M.D.
[2024-05-06 14:09] VITALS: BP 125/81; PULSE 81; RESP 12; TEMP 36.8; O2SAT 100
[2024-05-06 14:29] LABS: Basophils Absolute Auto 0.1 K/mm3 (0.0-0.1); Basophils Percent Auto 0.6 % (0.2-1.2); Eosinophils Percent Auto 0.4 % (0-4.4); Hematocrit 41.9 % (37.0-47.0); Hemoglobin 13.6 g/dL (12.0-15.0); Immature Granulocyte Absolute 0.03 K/mm3 (0.00-0.031); Immature Granulocyte Percent A 0.3 % (0-0.5); Lymphocytes Absolute Auto 2.65 K/mm3 (0.9-3.2); Lymphocytes Percent Auto 28.4 % (18.3-44.2); Mean Corpuscular HGB Conc 32.5 g/dl (32-36); Mean Corpuscular Hemoglobin 24.2 pg (26-34); Mean Corpuscular Volume 74.7 fl (80-100); Mean Platelet Volume 9.9 fl (7.4-10.4); Monocytes Absolute Auto 0.7 K/mm3 (0.1-0.6); Neutrophils Absolute Auto 5.9 K/mm3 (1.3-6.7); Neutrophils Percent Auto 63.3 % (45.5-73.1); Platelet Count Result 377 k/mm3 (150-375); Red Blood Count 5.61 M/mm3 (4.2-5.4); Red Cell Distribution Width 13.9 % (11.5-14.5); White Blood Count 9.3 K/mm3 (4.5-10.0)
[2024-05-06 14:37] LABS: Alanine Aminotransferase 14 U/L (6-35); Albumin Level 4.3 g/dL (3.5-5.1); Alkaline Phosphatase 77 U/L (38-126); Anion Gap 2 mmol/L (4-12); Aspartate Amino Transferase 25 U/L (14-36); Bilirubin,Total 0.7 mg/dL (0.2-1.3); Blood Urea Nitrogen 9 mg/dL (7-17); Calcium 8.6 mg/dL (8.4-10.2); Carbon Dioxide 30 mmol/L (22-30); Chloride 106 mmol/L (98-107); Estimated CRCL calculation 69 ml/min; Estimated Glomerular Filt Rate 59; Glucose 78 mg/dL (65-110); Lipase 96 U/L (23-300); Potassium 4.1 mmol/L (3.4-5.0); Sodium 138 mmol/L (137-145)
[2024-05-06 14:41] LABS: INR 1.1
[2024-05-06 14:42] LABS: Partial Thromboplastin Time 33.1 Seconds (22.3-36.8)
[2024-05-06 14:49] LABS: Ovalocytes 1+; Platelet Estimate Slightly Increased (Adequate); Schistocytes None Seen; Troponin I < 0.012 ng/mL (0.000-0.034)
[2024-05-06 16:14] VITALS: BP 114/82; PULSE 82; RESP 16; O2SAT 100
[2024-05-06 16:16] VITALS: O2SAT 99
--- NOTE | 2024-05-06 16:16 | PC.NURSE ---
Patient states she has been having intermittent sharp chest pain since yesterday. Patient states she has taken aspirin and pepcid with little relief. patient states the sharp pain last about a second then go away.
--- NOTE | 2024-05-06 16:45 | ED.CHESTPAIN ---
HPI - Chest Pain General Chief Complaint: Chest Pain Stated Complaint: CP Time Seen by Provider: 05/06/24 16:05 Source: patient Mode of arrival: ambulatory Limitations: no limitations History of Present Illness HPI narrative: This is a 44-year-old female who presents to the ED for chief complaint of chest pain intermittently over the past 24 hours. Patient states the pain comes and goes at random. It is not associated with exertion. She states it is sore to touch in the middle of the chest over the sternum. Pain does not radiate. Not associated with nausea, vomiting or syncope. Denies lightheadedness, palpitations or calf swelling. States she was taking [id number] PPI in case it was gerd but this was not helping. States the pain lasts for few seconds and then goes away on its own. Denies shortness of breath, cough, fevers, chills, numbness, weakness. Related Data Home Medications ?Medication ?Instructions ?Recorded ?Confirmed ?Last Taken ?Type atomoxetine 60 mg capsule 60 mg PO DAILY 12/15/22 04/11/24 01/04/23 History (Strattera) bupropion HCl 150 mg tablet,12 hr 150 mg PO DAILY 12/15/22 04/11/24 01/04/23 History sustained-release (Wellbutrin SR) escitalopram oxalate 20 mg tablet 20 mg PO DAILY 12/15/22 04/11/24 01/04/23 History (Lexapro) latanoprost 0.005 % eye drops 1 drp RIGHT EYE DAILY 12/15/22 04/11/24 01/04/23 History nebivolol 10 mg tablet 10 mg PO DAILY 12/15/22 04/11/24 01/04/23 History cariprazine 1.5 mg capsule 1.5 mg PO HS 01/05/23 04/11/24 Unknown History (Vraylar) albuterol 90 mcg/actuation aerosol 90 mcg inhalation PRN PRN 04/21/23 04/11/24 Unknown History inhaler Shortness Of Breath omeprazole magnesium 20 mg 20 mg PO DAILY PRN Indigestion 04/21/23 04/11/24 Unknown History tablet,delayed release (Prilosec OTC) tirzepatide 2.5 mg/0.5 mL 2.5 mg subcut WEEKLY 04/21/23 04/11/24 Unknown History subcutaneous pen injector (Leonelunkelley) montelukast 10 mg tablet 10 mg PO DAILY 08/05/23 04/11/24 Unknown History relugolix 40 mg-estradiol 1 1 tablet PO DAILY 08/05/23 04/11/24 Unknown History mg-norethindrone acetate 0.5 mg tablet (Myfembree) Allergies Allergy/AdvReac Type Severity Reaction Status Date / Time Penicillins Allergy Severe HIVES Verified 04/11/24 11:25 penicillin G Allergy Unknown Hives Verified 04/11/24 11:25 Sulfa (Sulfonamide Allergy Unknown EYES ITCH Verified 04/11/24 11:25 Antibiotics) AND SWELL Review of Systems Review of Systems: All systems as dictated in [facility] Past Medical History Medical History Bipolar 1 disorder Cataracts, bilateral Chronic kidney disease, stage 3a Depression with anxiety Detached retina Exocrine pancreatic insufficiency Glaucoma History of electroconvulsive therapy History of glaucoma surgery 2019 History of suicide attempt Hypertension Irritable bowel syndrome with constipation Marijuana use Obesity PCOS (polycystic ovarian syndrome) PTSD (post-traumatic stress disorder) Surgical History Surgical History History of breast biopsy 2011, 2019, 2021 History of eye surgery History of laparoscopic appendectomy on 01/05/23 PDC History of myomectomy open [address] Doshi History of tonsillectomy Hx laparoscopic cholecystectomy Family History Family History Grandparent Family history of malignant neoplasm of ovary Diabetes mellitus Cerebrovascular accident Sibling Diabetes mellitus Unknown family medical history Bipolar 1 disorder Narcolepsy Mother Diabetes mellitus Glaucoma Hypertension Father CKD (chronic kidney disease) stage 4, GFR 15-29 ml/min COPD (chronic obstructive pulmonary disease) Malignant neoplasm of prostate Asthma Social History Social History Smoking status: Never smoker Second hand tobacco smoke exposure: Yes Alcohol intake: never Substance use: current Substance use type: marijuana Other substance usage details: EDIBLE Last use: 05/10/23 Do You Feel Safe in your Home?: Yes Lack of Transportation: YES Lack of Food: Never True Current Housing: I Have Housing Concerned About Future Housing: No Difficulty Paying Gas/Electric Bills: No Difficulty Paying for Meds: No Currently Unemployed: No Education: Master's Degree or Higher Difficulty w/ Childcare or Family Care: No Living arrangements: with family Occupation/Education: occupation Additional occupation/education comments: [employer] Gender identity (if verbalized by the patient): Female Spiritual care concerns: No Exam Narrative: GENERAL: Well-appearing, well-nourished, and in no acute distress. HEAD: Normocephalic, atraumatic. EYES: PERRLA and EOMI. ENT: Nares clear, no rhinorrhea or epistaxis. Mucous membranes moist. Oropharynx without tonsillar hypertrophy exudate or other lesions. NECK: Supple. No adenopathy or masses. CHEST: Mild chest wall tenderness to the left costochondral junction. No respiratory distress. Clear to auscultation. No wheezes rales or rhonchi HEART: Regular rate and rhythm. No murmur heard. Normal peripheral pulses. ABDOMEN: Soft, nontender, nondistended, normal active bowel sounds. MSK: Normal range of motion. No edema. SKIN: Warm, dry, no rash. NEURO: Alert and oriented x4. No focal deficits. PSYCH: Normal mood and affect. Course Vital Signs Vital signs: Vital Signs Temperature 98.2 F 05/06/24 14:09 Pulse Rate 81 05/06/24 14:09 Respiratory Rate 12 05/06/24 14:09 Blood Pressure 125/81 05/06/24 14:09 Pulse Oximetry 100 05/06/24 14:09 Temperature 98.2 F 05/06/24 14:09 Pulse Rate 82 05/06/24 18:15 Respiratory Rate 16 05/06/24 18:15 Blood Pressure 115/69 05/06/24 18:15 Pulse Oximetry 98 05/06/24 18:15 Oxygen Delivery Room Air 05/06/24 16:16 MDM - Chest Pain MDM Narrative Medical decision making narrative: This is a 44-year-old female who presents to the ED for chief complaint of chest pain onset times 24 hours. Vitals are normal. Exam does show a chest wall tenderness to the left costochondral junction. Otherwise exam is benign. She is resting comfortably. EKG shows sinus rhythm with no acute ischemic findings. Serial troponins are negative. D-dimer is negative. Chest x-ray unremarkable. Patient was given GI cocktail with no relief of symptoms. Less suspicious for GI related concerned more consistent with chest wall pain with costochondritis. Rx for naproxen given. Patient will be discharged in stable condition. Supportive measures discussed and return precautions given. Patient is understanding and agreeable with plan for discharge with PCP follow-up. Lab Data 05/06/24 14:22 05/06/24 14:22 Labs: Lab Results 05/06/24 05/06/24 Range/Units 14:22 17:40 WBC 9.3 (4.5-10.0) K/mm3 RBC 5.61 H (4.2-5.4) M/mm3 Hgb 13.6 (12.0-15.0) g/dL Hct 41.9 (37.0-47.0) % MCV 74.7 L (80-100) fl MCH 24.2 L (26-34) pg MCHC 32.5 (32-36) g/dl RDW 13.9 (11.5-14.5) % Plt Count 377 H (150-375) k/mm3 MPV 9.9 (7.4-10.4) fl Immature Gran % (Auto) 0.3 (0-0.5) % Neut % (Auto) 63.3 (45.5-73.1) % Lymph % (Auto) 28.4 (18.3-44.2) % [place] % (Auto) 7.0 (2.6-8.5) % Eos % (Auto) 0.4 (0-4.4) % Baso % (Auto) 0.6 (0.2-1.2) % Lymph # (Auto) 2.65 (0.9-3.2) K/mm3 [place] # (Auto) 0.7 H (0.1-0.6) K/mm3 Eos # (Auto) 0.0 (0-0.3) K/mm3 Baso # (Auto) 0.1 (0.0-0.1) K/mm3 Abs Immat Gran (auto) 0.03 (0.00-0.031) K/mm3 Absolute Neuts (auto) 5.9 (1.3-6.7) K/mm3 Absolute Nucleated RBC 0.000 (0.0-0.012) K/mm3 Nucleated RBC % 0.0 (0.0-0.2) % Platelet Estimate Slightly increased (Adequate) Ovalocytes 1+ Schistocytes None seen PT 14.0 (11.1-14.7) Seconds INR 1.1 APTT 33.1 (22.3-36.8) Seconds D-Dimer 0.28 (<0.48) ug/mL Sodium 138 (137-145) mmol/L Potassium 4.1 (3.4-5.0) mmol/L Chloride 106 (98-107) mmol/L Carbon Dioxide 30 (22-30) mmol/L Anion Gap 2 L (4-12) mmol/L BUN 9 (7-17) mg/dL Creatinine 1.20 H (0.7-1.0) mg/dL Estim Creat Clear Calc 69 ml/min Estimated GFR 59 (59 - ) Glucose 78 (65-110) mg/dL Calcium 8.6 (8.4-10.2) mg/dL Total Bilirubin 0.7 (0.2-1.3) mg/dL AST 25 (14-36) U/L ALT 14 (6-35) U/L Alkaline Phosphatase 77 (38-126) U/L Troponin I < 0.012 < 0.012 (0.000-0.034) ng/mL Total Protein 7.0 (6.3-8.2) g/dL Albumin 4.3 (3.5-5.1) g/dL Lipase 96 (23-300) U/L Discharge Plan Discharge Clinical Impression: Costochondritis Patient Disposition: Home, Self-Care Condition: Stable Instructions: Antibiotic Form, Chest Pain (ED) Additional Instructions: Your exam and imaging today are reassuring. Please take naproxen twice per day for pain control. Follow-up with PCP on this issue. If you have any new or worsening symptoms please return to the ER for further evaluation. Patient Language: Senegalese Prescriptions: New naproxen 500 mg tablet 500 mg PO BID PRN (Reason: pain) Qty: 30 0RF No Action atomoxetine [Strattera] 60 mg capsule 60 mg PO DAILY escitalopram oxalate [Lexapro] 20 mg tablet 20 mg PO DAILY bupropion HCl [Wellbutrin SR] 150 mg tablet sustained-release 12 hr 150 mg PO DAILY nebivolol 10 mg tablet 10 mg PO DAILY latanoprost 0.005 % drops 1 drp RIGHT EYE DAILY Myfembree 40-1-0.5 mg tablet 1 tablet PO DAILY montelukast 10 mg tablet 10 mg PO DAILY Vraylar 1.5 mg capsule 1.5 mg PO HS albuterol 90 mcg/actuation Aerosol 90 mcg INHALATION PRN PRN (Reason: Shortness Of Breath) Mounjaro 2.5 mg/0.5 mL Pen Injector 2.5 mg SUBCUT WEEKLY Rx Instructions: WEDN[facility]DAY INJECTION [place] omeprazole magnesium [Prilosec OTC] 20 mg Tablet,Delayed Release (Dr/Ec) 20 mg PO DAILY PRN (Reason: Indigestion) diclofenac sodium 75 mg tablet,delayed release (DR/EC) See Rx Instructions .ROUTE .COMPLEX Qty: 60 2RF Dose Instruction: TAKE 1 TABLET BY MOUTH TWICE A DAY Rx Instructions: TAKE 1 TABLET BY MOUTH TWICE A DAY Follow-up/Referrals: Martha Lawrence MD [Primary Care Provider] - Time of Disposition: 18:31 Quality HEART score for chest pain patients History: slightly suspicious ECG: normal Age: < or = to 45 years Risk factors: no risk factors known Troponin: < or = to 1x normal limit Heart score: 0
[2024-05-06] MEDS: BELLADONNA ALK/PHENOB ELIX 10 ML, MAG HYDROX/ALUMINUM HYD/SIMETH 30 ML, LIDOCAINE 2% VI... PO (17:08)
[2024-05-06 17:16] LABS: D Dimer 0.28 ug/mL (<0.48)
--- NOTE | 2024-05-06 17:36 | ECG_ITS ---
Test Date: 2024-05-06 17:42:36 Measurements Intervals [place] Rate: 79 P: 44 [place]: 160 QRS: 2 QRSD: 86 T: 34 QT: 369 QTc: 424 Interpretive Statements SINUS RHYTHM POSSIBLE ANTERIOR MYOCARDIAL INFARCTION , OF INDETERMINATE AGE [30 ms Q WAVE IN V3/V4, OR R < 0.2 mV IN V4] AND ABNORMAL ECG Electronically Signed On 05-07-2024 08:54:31 SEWING MACHINE MAINTENANCE MECHANIC by Sudhir Shelton M.D.
[2024-05-06 18:15] VITALS: BP 115/69; PULSE 82; RESP 16; O2SAT 98
[2024-05-06 18:25] LABS: Troponin I < 0.012 ng/mL (0.000-0.034)
--- OUTSIDE RECORDS SUMMARY | 2024-05-13 22:18 | XMS_ITS ---
Author Organization [facility] Address [address] [place] [address] Care Team Providers Care Retoucher Name Role Phone Martha Lawrence MD Primary Care Provider Unavailab Mitesh Minaya Unavailable [phone] Allergies Allergen (clinical drug ingredient) Drug/Non Drug Allergy documented on EMR Reaction Allergy Type Onset Date Status Substance with sulfonamide structure and antibacterial mechanism of action (substance) SULFA (SULFONAMIDE ANTIBIOTICS) (uncoded) Unknown Allergy 09/20/2023 Active acetaminophen / oxycodone Percocet nausea and vomiting Drug Allergy Active Substance with penicillin structure and antibacterial mechanism of action (substance) Penicillins Unknown Drug Allergy 09/20/2023 Active prazosin Prazosin Unknown Drug Allergy 09/20/2023 Active REASON FOR VISIT f/u medication eval Medications Medication SIG (Take, Route, Frequency, Duration) Notes Start Date End Date Status Spravato (84 MG Dose) 28 MG/DEVICE INHALE 84MG PER NASAL ROUTE EVERY WEEK for 7 04/04/2024 Active Myfembree 40-1-0.5 MG TAKE 1 TABLET BY M OUTH EVERY DAY Oral for 84 Days Activ e buPROPion HCl ER (XL) 150 MG TAKE 1 TABLET BY MOUTH EVERY DAY IN THE MORNING Oral for 90 Days Active lamoTRIgine 100 MG 1 tablet Oral Once a day for 90 days Active lamoTRIgine 100 MG TAKE 1 TABLET BY DAGMAR TH EVERY DAY AT BEDTIME Oral for 90 Days Active Atomoxetine HCl 60 MG 1 capsule Oral Onc e a day for 90 days Active Nebivolol HCl 10 MG TAKE 1 TABLET BY DAGMAR TH EVERY DAY Oral for 90 Days Activ e Escitalopram Oxalate 20 MG TAKE 1 TABLET BY MOUTH EVERY DAY Oral for 90 Days Activ e Montelukast Sodium 10 MG TAKE 1 TABLET B Y MOUTH EVERY DAY Oral for 90 Days Activ e Mounjaro 5 MG/0.5ML INJECT 5 MG SUBCUTAN EOUSLY WEEKLY Subcutaneous for 28 Days Active Escitalopram Oxalate 20 MG 1 tablet Oral Once a day for 90 days Active Vraylar 3 mg 1 capsule Oral once daily for 90 days Active Zaleplon 10 MG 1 capsule at bedtime Oral Once a day for 30 days As needed Active buPROPion HCl ER (XL) 150 MG 1 tablet Oral Once a day for 90 days Active Social History Sex Assigned At : Social History Observation Description Sex Assigned At Female Vital Signs Blood pressure systolic 110 mm Hg 04/25/20 24 Blood pressure diastolic 78 mm Hg 024 Heart Rate 88 /min 04/25/2024 Height 66.00 in 04/25/2024 Weight 242.8 lbs 04/25/2024 BMI 39.18 kg/m2 04/25/2024 Height-cm 167.64 cm 04/25/2024 Weight-kg 110.13 kg 04/25/2024 Encounters Encounter Location Date Provider Diagnosis [facility] [address] [address] 04/25/2024 Mitesh Dawson Generalized anxiety disorder F41.1 ; Primary insomnia F51.01 ; Attention-deficit hyperactivity disorder, combined type F90.2 and Major depressive disorder, recurrent, moderate F33.1 Assessments Encounter Date Diagnosis (ICD Code) Assessment Notes Treatment Notes Treatment Clinical Notes Section Notes 04/25/2024 Generalized anxiety disorder (ICD-10 - F41.1) 04/25/2024 Primary insomnia (ICD-10 - F51.01) zaleplon 10 mg capsule 04/25/2024 Attention-deficit hyperactivity disorder, combined type (ICD-10 - F90.2) atomoxetine 60mg daily adhd, she has gluacoma, no stimulants - cont atom 04/25/2024 Major depressive disorder, recurrent, moderate (ICD-10 - F33.1) spravato 84mg every 10 days, lamotrigine 100 mg tablet - daily bupropion xl 150mg daily, escitalopram 20mg daily, vraylar 3mg daily Plan Of Treatment Medication Medication Name Sig Start Date Stop Date Notes lamoTRIgine 100 MG 1 tablet Oral Once a day for 90 days Atomoxetine HCl 60 MG 1 capsule Oral Onc e a day for 90 days Escitalopram Oxalate 20 MG 1 tablet Oral Once a day for 90 days Vraylar 3 mg 1 capsule Oral once daily for 90 days Zaleplon 10 MG 1 capsule at bedtime Oral Once a day for 30 days buPROPion HCl ER (XL) 150 MG 1 tablet Or al Once a day for 90 days Treatment Notes Assessment Notes Primary insomnia zaleplon 10 mg capsu le Attention-deficit hyperactiv ity disorder, combined type atomoxetine 60mg daily adhd, she has gluacoma, no stimulants - cont atom Major depressive disorder, r ecurrent, moderate spravato 84mg every 10 days, lamotrigine 100 mg tablet - daily bupropion xl 150mg daily, escitalopram 20mg daily, vraylar 3mg daily Next Appt Details Follow Up: 2 Months, Reason: f/u depression, spravato Provider Name:Marciano Caal, 05/22/2024 03:00:00 PM, [facility], [facility] [address], [place], [address], Provider Name:Marciano Caal, 06/01/2024 03:00:00 PM, [facility] [address], [place], [address], Provider Name:Marciano Caal, 06/12/2024 03:00:00 PM, [facility] [address], [facility] [address], [place], [address], Provider Name:Marciano Caal, 06/22/2024 03:00:00 PM, [facility] [address], [place], [address], Provider Name:Mitesh pierre, 06/26/2024 02:30:00 PM, [facility] [address], [place], [address], Provider Name:Marciano Caal, 07/03/2024 03:00:00 PM, [facility] [address], [place], [address], Progress Notes * JAQUELINE HASSAN VDOB: 1 (44 yo F)Acc No.[id number]:04/25/2024 Esketamine Follow up Patient:?JAQUELINE HASSAN V Provider:?RUI SIMON :1980???Age:44 Y???Sex:Female D ate:04/25/2024 Address:[facility] Pcp:Martha Lawrence MD Subjective: * Chief Complaints: * ???1. F/u medication eval. * HPI: ???Depression Screening:?ANGEL-7 (2018 Edition)?Feeling nervous, anxious, or on edge?Several days,?Not being able to stop or control worrying?Several days,?Worrying too much about different things?Several days,?Trouble relaxing?Several days,?Being so restless that it is hard to sit still?Not at all,?Becoming easily annoyed or irritable?Several days,?Feeling afraid as if something awful might happen?More than half the days,?Total ANGEL-7 Score?7,?If you checked any problems, how difficult have they made it for you to do your work, take care of things at home, or get along with other people??Somewhat difficult,?Interpretation of Total?(5 to 9) Mild.?Gale Depression Inventory:?which describes you best in terms of this past week?1 In the past one week which term best describe you?2 I am blue or sad all the time and I can't snap out of it.,?2 In the past one week which term best describe you?1 I feel discourage about the future.,?3 In the past one week which term best describe you?1 I feel I have failed more than the average person.,?4 In the past one week which term best describe you?1 I don't enjoy things the way I used to,?5 In the past one week which term best describe you?0 I don't feel particularly guilty.,?6 In the past one week which term best describe you?0 I don't feel I am being punished.,?7 In the past one week which term best describe you?1 I am disappointed in myself.,?8 In the past one week which term best describe you?2 I blame myself all the time for my faults.,?9 In the past one week which term best describe you?0 I don't have any thoughts of killing myself.,?10 In the past one week which term best describe you?1 I cry more now maryanne I used to .,?11 In the past one week which term best describe you 1 I am slightly more irritated now than usual.,?12 In the past one week which term best describe you?1 I am less interested in other people than I used to be.,?13 In the past one week which term best describe you?1 I put off making decisions more than I used to.,?14 In the past one week which term best describe you?1 I am worried that I am looking old or unattractive.,?15 In the past one week which term best describe you?1 It takes an extra effort to get started at doing something.,?16 In the past one week which term best describe you?2 I wake up 1-2 hours earlier than usual and find it hard to get back to sleep.,?17 In the past one week which term best describe you?1 I get tired more easily than I used to.,?18 In the past one week which term best describe you?1 My appetite is not as good as It used to be.,?19 In the past one week which term best describe you?0 I haven't lost much weight, if any, lately.,?20 In the past one week which term best describe you?1 I am worried about physical problems like aches, pain, upset stomach or constipation,?21 In the past one week which term best describe you?1 I am less interested in sex than I used to be..?Depression screening:?PHQ-9?Little interest or pleasure in doing things?Several days,?Feeling down, depressed, or hopeless?Several days,?Trouble falling or staying asleep, or sleeping too much?More than half the days,?Feeling tired or having little energy?Several days,?Poor appetite or overeating?Several days,?Feeling bad about yourself or that you are a failure, or have let yourself or your family down?Not at all,?Trouble concentrating on things, such as reading the newspaper or watching television?Not at all,?Moving or speaking so slowly that other people could have noticed; or the opposite, being so fidgety or restless that you have been moving around a lot more than usual?Not at all,?Thoughts that you would be better off or of hurting yourself in some way?Not at all,?Total Score?6,?Interpretation?Mild Depression.?Intervention?Depression Screening Findings?Positve,?Follow-Up for Depression?Mental health treatment assessment, Patient follow-up to return when and if necessary,?Suicide Risk Assessment Performed?04/25/2024 ,?Additional Evaluation for Depression?Psychiatric interview and evaluation,?Name of the standardized tool used for adult depression screening:?Patient Health Questionnaire (PHQ-9).?History of Presenting Problem:?Depression?hard to get going in the morning, making self start things.?Sleep disturbance?Restless leg syndrome:?restless legs at night ?Prescribed sleep medications:?madina locke, has used cannabis at night to help sleep, harvey perera- gave funny taste in her mouthNotes:persistent, had issues the past 2-3 months, has issues falling asleep or waking up because of fear.?Psychotherapy?Kasey Acosta - every week.?PTSD?PTSD Quality:?intrusive unpleasant thoughts;?hypervigilance of surroundings ?Timing of Symptoms:?chronic ?Duration:?over 5 years ?PTSD Severity:?moderate ?PTSD Associated Symptoms:?feeling detached;?sleep disturbances;?high irritabilityNotes:persists.?Past Medication history:?Spravato, trazodone- stopped working,. * Medical History:?Problems: A ttention deficit hyperactivity disorder, combined type, Chronic post-traumatic stress disorder, Generalized anxiety disorder, Glaucoma, Mild recurrent major depression, Moderate recurrent major depression, Nightmares associated with chronic post-traumatic stress disorder, Polycystic ovary syndrome, Primary insomnia, Severe recurrent major depression without psychotic features, Suicidal thoughts, ,. * Medications:?Taking Mounjaro 5 MG/0.5ML Solution Pen-injector INJECT 5 MG SUBCUTANEOUSLY WEEKLY Subcutaneous , Taking Montelukast Sodium 10 MG Tablet TAKE 1 TABLET BY MOUTH EVERY DAY Oral , Taking Escitalopram Oxalate 20 MG Tablet TAKE 1 TABLET BY MOUTH EVERY DAY Oral , Taking Nebivolol HCl 10 MG Tablet TAKE 1 TABLET BY MOUTH EVERY DAY Oral , Taking lamoTRIgine 100 MG Tablet TAKE 1 TABLET BY MOUTH EVERY DAY AT BEDTIME Oral , Taking buPROPion HCl ER (XL) 150 MG Tablet Extended Release 24 Hour TAKE 1 TABLET BY MOUTH EVERY DAY IN THE MORNING Oral , Taking Myfembree 40-1-0.5 MG Tablet TAKE 1 TABLET BY MOUTH EVERY DAY Oral , Taking Zaleplon 10 MG Capsule 1 capsule at bedtime Oral Once a day As needed, Taking Atomoxetine HCl 60 MG Capsule 1 capsule Oral Once a day , Taking Spravato (84 MG Dose) 28 MG/DEVICE Solution Therapy Pack INHALE 84MG PER NASAL ROUTE EVERY WEEK , Taking Vraylar 3 mg Capsule 1 capsule Oral once daily , Medication List reviewed and reconciled with the patient * Allergies:?SULFA (SULFONAMID E ANTIBIOTICS): Allergy - Onset Date 09/20/2023, Penicillins: Allergy - Onset Date 09/20/2023, Prazosin: Allergy - Onset Date 09/20/2023, Percocet: nausea and vomiting - Side Effects. Objective: * Vitals:?BP:110/78mm Hg, HR:8 8/min, Wt:242.8lbs, Wt-k.13 kg, Ht: 66.00 in, Ht-cm: 167.64 cm, BMI:39.18Index, Body Surface Area: 2.26. * Examination: ???Psychiatry: ?Appearance:?well-groomed, well-nourished, ....?Affect / mood:?appropriate, full range.?Attention:?good.?Attitude:?cooperative.?Suicidal ideation:?none.?Memory status:?no impairment noted.?Degree of awareness of surroundings:?within normal limits.?Delusions:?no.?Hallucinations:?no.?Insight:?good.?Intellectual functioning:?no impairment noted.?Judgement:?good.?Orientation:?awake, alert and oriented x 3.?Perceptual disorders:?no perceptual disorder noted.?Psychomotor activity:?within normal range.?Speech / language:?appropriate pitch/modulation, clear and coherent, normal rate, volume, and articulation (RVR), proper grammar used.?Thought content:?appropriate.?Thought process:?intact.? Assessment: * Assessment: 1.?Generalized anxiety disor sanjiv - F41.1 (Primary)???2.?Primary insomnia - F51.01???3.?Attention-deficit hyperactivity disorder, combined type - F90.2???4.?Major depressive disorder, recurrent, moderate - F33.1??? Plan: * Treatment: 2.?Attention-deficit hyperac tivity disorder, combined type? Continue Atomoxetine HCl Capsule, 60 MG, 1 capsule, Oral, Once a day, 90 days, 90 Capsule, Refills 1.?? Notes:atomoxetine 60mg daily adhd, she has gluacoma, no stimulants - cont atom ?? 3.?Major depressive disorder , recurrent, moderate? Continue lamoTRIgine Tablet, 100 MG, 1 tablet, Oral, Once a day, 90 days, 90 Tablet, Refills 1;?Continue buPROPion HCl ER (XL) Tablet Extended Release 24 Hour, 150 MG, 1 tablet, Oral, Once a day, 90 days, 90 Tablet, Refills 1;?Continue Vraylar Capsule, 3 mg, 1 capsule, Oral, once daily, 90 days, 90, Refills 1;?Refill Escitalopram Oxalate Tablet, 20 MG, 1 tablet, Oral, Once a day, 90 days, 90 Tablet, Refills 1.?? Notes: spravato 84mg every 10 days, lamotrigine 100 mg tablet - dailybupropion xl 150mg daily, escitalopram 20mg daily, vraylar 3mg daily ?? * Procedure Codes:?05221 BEHAV ASSMT W/SCORE & DOCD/STAND INSTRUMENT * Follow Up:?2 Months (Reason: f/u depression, spravato) * Billing Information: * Visit Code:? 92182 OFFICE OUTPATIENT VISIT 25 MINUTES DETAILED HISTORY AND EXAM/MODERATE MEDICAL DECISION MAKING. * Procedure Codes:? 27719 BEHAV ASSMT W/SCORE & DOCD/STAND INSTRUMENT. * Electronic signature of RUI Thomas on 05/13/2024 at 10:18 PM RAMP SERVICE AGENT Sign off status: Pending * Provider:RUI NAJERA Date:? Generated for Keaton magallon/Sergio/eTransmitting on:?05/13/2024 10:18 PM RAMP SERVICE AGENT History and Physical Notes * HPI (History of Present Illness) Category Sub-Category Detail Notes Category Not es History of Presenting Problem Depression hard to get going in the morning, making self start things Sleep disturbance Restless leg syndrom e: restless legs at night Prescribed sleep medications: madina locke, has used cannabis at night to help sleep, harvey perera- gave funny taste in her mouthNotes:persistent, had issues the past 2-3 months, has issues falling asleep or waking up because of fear Psychotherapy Kasey Acosta - katlin doan week PTSD PTSD Quality: intrus angelo unpleasant thoughts; hypervigilance of surroundings Timing of Symptoms: chronic Duration: over 5 years PTSD Severity: moderate PTSD Associated Symptoms: feeling detached; sleep disturbances; high irritabilityNotes:persists Depression screening PHQ-9 Little inte rest or pleasure in doing things: Several days Feeling down, depressed, or hopeless: Se veral days Trouble falling or staying a sleep, or sleeping too much: More than half the days Feeling tired or having little energy: S everal days Poor appetite or overeating: Several day s Feeling bad about yourself o r that you are a failure, or have let yourself or your family down: Not at all Trouble concentrating on thi ngs, such as reading the newspaper or watching television: Not at all Moving or speaking so slowly that other people could have noticed; or the opposite, being so fidgety or restless that you have been moving around a lot more than usual: Not at all Thoughts that you would be b lucita off or of hurting yourself in some way: Not at all Total Score: 6 Interpretation: Mild Depression Intervention Depression Screening Findings: P ositve Follow-Up for Depression: [facility] treatment assessment, Patient follow-up to return when and if necessary Suicide Risk Assessment Performed: 04/25 Additional Evaluation for De pression: Psychiatric interview and evaluation Name of the standardized too l used for adult depression screening:: Patient Health Questionnaire (PHQ-9) Depression Screening ANGEL-7 (2018 Edition) Feelin g nervous, anxious, or on edge: Several days Not being able to stop or control worryi ng: Several days Worrying too much about different things : Several days Trouble relaxing: Several days Being so restless that it is hard to sit still: Not at all Becoming easily annoyed or irritable: Se veral days Feeling afraid as if something awful amanda ht happen: More than half the days Total ANGEL-7 Score: 7 If you checked any problems, how difficult have they made it for you to do your work, take care of things at home, or get along with other people?: Somewhat difficult Interpretation of Total: (5 to 9) Mild Gale Depression Inventory which describe s you best in terms of this past week 1 In the past one week which term best describe you: 2 I am blue or sad all the time and I can't snap out of it. 2 In the past one week which term best describe you: 1 I feel discourage about the future. 3 In the past one week which term best describe you: 1 I feel I have failed more than the average person. 4 In the past one week which term best describe you: 1 I don't enjoy things the way I used to 5 In the past one week which term best describe you: 0 I don't feel particularly guilty. 6 In the past one week which term best describe you: 0 I don't feel I am being punished. 7 In the past one week which term best describe you: 1 I am disappointed in myself. 8 In the past one week which term best describe you: 2 I blame myself all the time for my faults. 9 In the past one week which term best describe you: 0 I don't have any thoughts of killing myself. 10 In the past one week whic h term best describe you: 1 I cry more now maryanne I used to . 11 In the past one week whic h term best describe you: 1 I am slightly more irritated now than usual. 12 In the past one week whic h term best describe you: 1 I am less interested in other people than I used to be. 13 In the past one week whic h term best describe you: 1 I put off making decisions more than I used to. 14 In the past one week whic h term best describe you: 1 I am worried that I am looking old or unattractive. 15 In the past one week whic h term best describe you: 1 It takes an extra effort to get started at doing something. 16 In the past one week whic h term best describe you: 2 I wake up 1-2 hours earlier than usual and find it hard to get back to sleep. 17 In the past one week whic h term best describe you: 1 I get tired more easily than I used to. 18 In the past one week whic h term best describe you: 1 My appetite is not as good as It used to be. 19 In the past one week whic h term best describe you: 0 I haven't lost much weight, if any, lately. 20 In the past one week whic h term best describe you: 1 I am worried about physical problems like aches, pain, upset stomach or constipation 21 In the past one week whic h term best describe you: 1 I am less interested in sex than I used to be. Examination Category Sub-Category Detail Notes Category Not es Psychiatry Appearance: well-groomed, well-nourished , ... Attitude: cooperative Psychomotor activity: within normal rang e Attention: good Degree of awareness of surroundings: wit hin normal limits Orientation: awake, alert and vlad ented x 3 Affect / mood: appropriate, full ra nge Speech / language: appropriate pitch/mo dulation, clear and coherent, normal rate, volume, and articulation (RVR), proper grammar used Insight: good Judgement: good Thought process: intact Thought content: appropriate Perceptual disorders: no perceptual diso rder noted Suicidal ideation: none Intellectual functioning: no impairment noted Memory status: no impairment noted Delusions: no Hallucinations: no
--- OUTSIDE RECORDS SUMMARY | 2024-05-13 22:18 | XMS_ITS ---
Author Organization [facility] [employer] [facility] Address [address] [place] [address] Care Team Providers Care Ticket Clerk Name Role Phone Martha Lawrence MD Primary Care Provider Mitesh Gibson Unavailable [phone] REASON FOR VISIT R/s Spravato Social History Sex Assigned At : Social History Observation Description Sex Assigned At Female Encounters Encounter Location Date Provider Diagnosis [facility] [place] [id number] [facility] [address] [place] [address] 04/17/2024 Mitesh Dawson Plan Of Treatment Next Appt Details Provider Name:Marciano Caal, 05/22/2024 03:00:00 PM, [facility], [address], [address], Provider Name:Marciano Caal, 06/01/2024 03:00:00 PM, [address], [address], [address], Provider Name:Marciano Caal, 06/12/2024 03:00:00 PM, [facility], [address], [address], Provider Name:Marciano Caal, 06/22/2024 03:00:00 PM, [facility] [address], [address], Provider Name:Mitesh pierre, 06/26/2024 02:30:00 PM, [facility] [address], [address], Provider Name:Marciano Magaña Afua, 07/03/2024 03:00:00 PM, [address] [facility] [address], [facility] [address], [place], [address], Progress Notes * JAQUELINE HASSAN VDOB: [birth year] (44 yo F)Acc No.[id number]:04/17/2024 Patient:?JAQUELINE HASSAN V :1980???Age:44 Y???Sex:Female Address:[address] [place] [address] [place], [address] * true * Date:? Generated for Keaton magallon/Sregio/eTransmitting on:?05/13/2024 10:18 PM COOLING PAN TENDER
--- OUTSIDE RECORDS SUMMARY | 2024-05-13 22:18 | XMS_ITS ---
Author Organization [facility] [employer] Address [address] [place] [address] Care Team Providers Care Roll Forming Supervisor Name Role Phone Martha Lawrence MD Primary Care Provider Unavailab Mitesh Minaya Unavailable [phone] Marciano Caal Unavailable [phone] Allergies Allergen (clinical drug ingredient) Drug/Non Drug [...] Drug Allergy 09/20/2023 Active REASON FOR VISIT Patient is here for her Esketamine 84mg treatment., rates their depression as a 7-8/10. Medications Medication SIG (Take, Route, Frequency, Duration) Notes Start Date End Date Status Zaleplon 10 MG 1 capsule at bedtime Oral Once a day for 30 days As needed Active lamoTRIgine 100 MG 1 tablet Oral Once a day for 90 days Active buPROPion HCl ER (XL) 150 MG 1 tablet Oral Once a day for 90 days Active Myfembree 40-1-0.5 MG TAKE 1 TABLET BY M OUTH EVERY DAY Oral for 84 Days Activ e Spravato (84 MG Dose) 28 MG/DEVICE INHALE 84MG PER NASAL ROUTE EVERY WEEK for 7 04/04/2024 Active Montelukast Sodium 10 MG TAKE 1 TABLET B Y MOUTH EVERY DAY Oral for 90 Days Activ e Escitalopram Oxalate 20 MG TAKE 1 TABLET BY MOUTH EVERY DAY Oral for 90 Days Activ e lamoTRIgine 100 MG TAKE 1 TABLET BY DAGMAR TH EVERY DAY AT BEDTIME Oral for 90 Days Active buPROPion HCl ER (XL) 150 MG TAKE 1 TABLET BY MOUTH EVERY DAY IN THE MORNING Oral for 90 Days Active Nebivolol HCl 10 MG TAKE 1 TABLET BY DAGMAR TH EVERY DAY Oral for 90 Days Activ e Escitalopram Oxalate 20 MG 1 tablet Oral Once a day for 90 days Active Mounjaro 5 MG/0.5ML INJECT 5 MG SUBCUTAN EOUSLY WEEKLY Subcutaneous for 28 Days Active Vraylar 3 mg 1 capsule Oral once daily for 90 days Active Atomoxetine HCl 60 MG 1 capsule Oral Onc e a day for 90 days Active Social History Sex Assigned At : Social History Observation Description Sex Assigned At Female Vital Signs Blood pressure systolic 91 mm Hg 05/01/20 24 Blood pressure diastolic 62 mm Hg 024 Heart Rate 79 /min 05/01/2024 Height 66.00 in 05/01/2024 Height-cm 167.64 cm 05/01/2024 Encounters Encounter Location Date Provider Diagnosis [facility] [employer] [address] [facility] [address] [place] [address] 05/01/2024 Marciano Caal Major depressive disorder, recurrent severe without psychotic features F33.2 Assessments Encounter Date Diagnosis (ICD Code) Assessment Notes Treatment Notes Treatment Clinical Notes Section Notes 05/01/2024 Major depressive disorder, recurrent severe without psychotic features (ICD-10 - F33.2) 1. Major Depressive Disorder - Patient reports a depression rating of 7-8 out of 10. - No thoughts of suicide or self-harm. - No hallucinations, delusions, or paranoia. - Plan: a. Continue current antidepressant medication. b. Monitor depressive symptoms closely. c. Encourage regular physical activity and healthy sleep schedule. 2. Generalized Anxiety Disorder - Patient reports an anxiety rating of 6-7 out of 10. - No thoughts of hurting others. - Plan: a. Continue current anxiolytic medication. b. Monitor anxiety symptoms closely. c. Encourage relaxation techniques like deep breathing exercises and mindfulness meditation. 3. Sleep - Patient reports getting 5-7 hours of sleep per night. - Plan: a. Encourage consistent sleep schedule and good sleep hygiene. b. Monitor sleep duration and quality at future visits 4. Appetite - Patient reports a good appetite. - Plan: a. Encourage balanced diet and regular weight monitoring. b. Assess appetite at future visits. 5. Medication Management - No changes in medication reported. - Plan: a. Continue current medication regimen. b. Monitor for side effects or new physical complaints at future visits. 6. Physical Health - No new physical complaints reported. - Plan: a. Encourage prompt reporting of any new physical symptoms. b. Monitor overall physical health at future visits. 05/01/2024 Other continue current treatment as prescribed by primary psychiatric care provider. spravato 84mg every 10 days, lamotrigine 100 mg tablet - daily bupropion xl 150mg daily, escitalopram 20mg daily, vraylar 3mg daily 1. Major Depressive Disorder - Patient reports a depression rating of 7-8 out of 10. - No thoughts of suicide or self-harm. - No hallucinations, delusions, or paranoia. - Plan: a. Continue current antidepressant medication. b. Monitor depressive symptoms closely. c. Encourage regular physical activity and healthy sleep schedule. 2. Generalized Anxiety Disorder - Patient reports an anxiety rating of 6-7 out of 10. - No thoughts of hurting others. - Plan: a. Continue current anxiolytic medication. b. Monitor anxiety symptoms closely. c. Encourage relaxation techniques like deep breathing exercises and mindfulness meditation. 3. Sleep - Patient reports getting 5-7 hours of sleep per night. - Plan: a. Encourage consistent sleep schedule and good sleep hygiene. b. Monitor sleep duration and quality at future visits 4. Appetite - Patient reports a good appetite. - Plan: a. Encourage balanced diet and regular weight monitoring. b. Assess appetite at future visits. 5. Medication Management - No changes in medication reported. - Plan: a. Continue current medication regimen. b. Monitor for side effects or new physical complaints at future visits. 6. Physical Health - No new physical complaints reported. - Plan: a. Encourage prompt reporting of any new physical symptoms. b. Monitor overall physical health at future visits. Plan Of Treatment Treatment Notes Assessment Notes Other continue current treatment as prescribed by primary psychiatric care provider. spravato 84mg every 10 days, lamotrigine 100 mg tablet - daily bupropion xl 150mg daily, escitalopram 20mg daily, vraylar 3mg daily Next Appt Details Follow Up: 06/26/2024, Reason : follow up with provider Provider Name:Marciano Caal, 05/22/2024 03:00:00 PM, [facility] [address], [place] [address], [place], [address], Provider Name:Marciano Caal, 06/01/2024 03:00:00 PM, [facility] [address], [place] [address], [place], [address], Provider Name:Marcinao Caal, 06/12/2024 03:00:00 PM, [facility] [address], [place] [address], [place], [address], Provider Name:Marciano Caal, 06/22/2024 03:00:00 PM, [facility] [address], [place] [address], [place], [address], Provider Name:Mitesh pierre, 06/26/2024 02:30:00 PM, [facility] [address], [address], [address], Provider Name:Marciano Caal, 07/03/2024 03:00:00 PM, [facility] [address], [address], [address], Medications Administered Medication Instructions Date of Administration Dosage Notes Spravato (84 MG Dose) 05/01/2024 84 mg Progress Notes * JAQUELINE HASSAN VDOB: [birth year] (44 yo F)Acc No.[id number]:05/01/2024 Patient:?JAQUELINE HASSAN V Provider:?Marciano Caal HNP :1980???Age:44 Y???Sex:Female D ate:05/01/2024 [facility] [facility] Pcp:Martha Lawrence MD Subjective: * Chief Complaints: * ???Patient is here for her E sketamine 84mg treatment.Rates their depression as a 7-8/10. * HPI: ???General Follow Up:?1 Review patient medical records, any recent test results, last visit summary, etc Yes1 Time spent 22 Greet patient and escort to the treatment room No3 Initial Obtained vital signs No4 Prepare equipment and supplies Yes4 Time spent 15 Reviewed and documented history and medication Yes5 Time spent 26 Evaluate patient's clinical status [relevant history/physical assessment] and determine readiness/appropriateness of treatment Yes6 Time spent 37 Confirm orders and review plans with staff Yes7 Time spent 18 Ensure appropriate positioning for administration, observe patient administration, ensure patient comfort and safety Yes8 Time spent 29 Obtained vital signs: Assess treatment tolerance No10 Assess the patient response to treatment: Visually and verbally evaluate the patient; review treatment progress with staff [vital signs, patient tolerance, side effects, etc.] Yes10 Time spent 1511 obtained vital signs: assess treatment tolerance No12 At the completion of observation., Reviewed treatment course and assess the patient for clinical stability/discharge readiness Yes12 Time spent 213 Write a prescription or Reviewed RX for next session and submit to pharmacy No14 Provide patient education/instruction/ Yes14 Time spent 415 Coordinate home-going [that is, discharged to escorted transportation] No16 Complete medical record documentation Yes16 Time spent 1017 cleaning of room/equipment by clinical staff No18 complete medical record documentation; complete and submit rems patient monitoring form Miky attest to the total time spent Before, During and after ecounter was (in Minutes) 42 The note is transcribed using speech recognition software. It is a reflection of a visit with the patient. It might have some inaccuracy, including medication names and transcribing errors, though efforts have been made to correct them. Chief Complaint: The patient reports moderate levels of depression and anxiety. HPI: The patient rates their depression as a 7-8/10 and anxiety as a 6-7/10. They deny any thoughts of suicide, self-harm, or harming others. The patient also denies experiencing hallucinations, delusions, or paranoia. They report getting approximately 5-7 hours of sleep per night. Their appetite is reported to be good at this time. The patient reports no recent changes in medication and denies any new physical complaints. ???Esketamine Administration:?Esketamine administration?Time at the start of administration? 3:02 PM,?Time of discharge? 5:02 PM,?Patient must be monitored for at least 2 hours?Yes,?Was the patient clinically ready for discharge prior to the required 2-hour: Yes,?Serious adverse events during the treatment session or since the last treatment session? none? NO,?Silent Alarm used by patient? NO,?staff Notes about today's Visit? Patient ate at 2:30 PM. Patients spouse will pick her up..? Esketamine Nasal [place] Administration and Supervised monitoring Staff attending the patient Nancy Supervising provider as in rendering provider: RUI Rizzo Is patient taking any of the following concomitant medication that may cause sedation of blood pressure changes Benzodiazepine No Non-benzodiazepine sedative-hypnotics: Yes Psychostimulant: No Monoamine oxidase inhibitors [MAOIs]: No Dose of Spravato: 84 Mg Lot number [id number] Date: 08/08/2026. * ROS:?General / Constitutional:?Fatigue?denies.?Dizziness?Denies.?Sedation?Denies.?spinning sensation?Deneis.?Gastrointestinal:?Nausea?denies.?Vomiting?denies.?Psychiatric:?Anxiety?admits.?Auditory / visual hallucinations?denies.?Delusions?denies.?Suicidal thoughts?denies.?Dissociations?Denies.?Excited?Denies.? * Medical History:? * Surgical History:? * Hospitalization/Major Diagno stic Procedure:? * Medications:?TakingMounjaro 5 MG/0.5ML Solution Pen-injector INJECT 5 MG SUBCUTANEOUSLY WEEKLY Subcutaneous Montelukast Sodium 10 MG Tablet TAKE 1 TABLET BY MOUTH EVERY DAY Oral Escitalopram Oxalate 20 MG Tablet TAKE 1 TABLET BY MOUTH EVERY DAY Oral Nebivolol HCl 10 MG Tablet TAKE 1 TABLET BY MOUTH EVERY DAY Oral lamoTRIgine 100 MG Tablet TAKE 1 TABLET BY MOUTH EVERY DAY AT BEDTIME Oral buPROPion HCl ER (XL) 150 MG Tablet Extended Release 24 Hour TAKE 1 TABLET BY MOUTH EVERY DAY IN THE MORNING Oral Myfembree 40-1-0.5 MG Tablet TAKE 1 TABLET BY MOUTH EVERY DAY Oral Spravato (84 MG Dose) 28 MG/DEVICE Solution Therapy Pack INHALE 84MG PER NASAL ROUTE EVERY WEEK lamoTRIgine 100 MG Tablet 1 tablet Oral Once a day buPROPion HCl ER (XL) 150 MG Tablet Extended Release 24 Hour 1 tablet Oral Once a day Zaleplon 10 MG Capsule 1 capsule at bedtime Oral Once a day As neededVraylar 3 mg Capsule 1 capsule Oral once daily Escitalopram Oxalate 20 MG Tablet 1 tablet Oral Once a day Atomoxetine HCl 60 MG Capsule 1 capsule Oral Once a day Medication List reviewed and reconciled with the patientTaking Mounjaro 5 MG/0.5ML Solution Pen-injector INJECT 5 MG SUBCUTANEOUSLY WEEKLY Subcutaneous Taking Montelukast Sodium 10 MG Tablet TAKE 1 TABLET BY MOUTH EVERY DAY Oral Taking Escitalopram Oxalate 20 MG Tablet TAKE 1 TABLET BY MOUTH EVERY DAY Oral Taking Nebivolol HCl 10 MG Tablet TAKE 1 TABLET BY MOUTH EVERY DAY Oral Taking lamoTRIgine 100 MG Tablet TAKE 1 TABLET BY MOUTH EVERY DAY AT BEDTIME Oral Taking buPROPion HCl ER (XL) 150 MG Tablet Extended Release 24 Hour TAKE 1 TABLET BY MOUTH EVERY DAY IN THE MORNING Oral Taking Myfembree 40-1-0.5 MG Tablet TAKE 1 TABLET BY MOUTH EVERY DAY Oral Taking Spravato (84 MG Dose) 28 MG/DEVICE Solution Therapy Pack INHALE 84MG PER NASAL ROUTE EVERY WEEK Taking lamoTRIgine 100 MG Tablet 1 tablet Oral Once a day Taking buPROPion HCl ER (XL) 150 MG Tablet Extended Release 24 Hour 1 tablet Oral Once a day Taking Zaleplon 10 MG Capsule 1 capsule at bedtime Oral Once a day As neededTaking Vraylar 3 mg Capsule 1 capsule Oral once daily Taking Escitalopram Oxalate 20 MG Tablet 1 tablet Oral Once a day Taking Atomoxetine HCl 60 MG Capsule 1 capsule Oral Once a day Medication List reviewed and reconciled with the patient * Allergies:?SULFA (SULFONAMID E ANTIBIOTICS): Allergy - Onset Date 09/20/2023enicillins: Allergy - Onset Date 09/20/2023razosin: Allergy - Onset Date 4Percocet: nausea and vomiting - Side Effectsno[Allergies Verified] Objective: * Vitals:?BP: 123/80 mm Hg,104 /66 mm Hg,91/62mm Hg, HR: 82 /min,85 /min,79/min, Ht: 66.00 in, Ht-cm: 167.64 cm. * Examination: ???General Examination: ?Psych:?alert and oriented x 3, cognitive function intact, cooperative with exam, maintains good eye contact, with good judgement and insight, normal affect / mood, with no auditory or visual hallucinations, speech is clear and coherent, thought process is logical and goal directed without suidical ideation or delusions.?- Mental Status Examination: - Patient rates depression severity at 7-8/10 and anxiety severity at 6-7/10. - Denies experiencing suicidal ideation, self-harm, and homicidal ideation. - Denies visual or auditory hallucinations, delusions, and paranoia. - Reports sleeping approximately 5-7 hours per night. - Describes appetite as pretty good. - Vital Signs: Review note - Physical Examination: - No new physical complaints reported. Assessment: * Assessment: 1.?Major depressive disorder , recurrent severe without psychotic features - F33.2 (Primary)??? 1. Major Depressive Disorder - Patient reports a depression rating of 7-8 out of 10. - No thoughts of suicide or self-harm. - No hallucinations, delusions, or paranoia. - Plan: a. Continue current antidepressant medication. b. Monitor depressive symptoms closely. c. Encourage regular physical activity and healthy sleep schedule. 2. Generalized Anxiety Disorder - Patient reports an anxiety rating of 6-7 out of 10. - No thoughts of hurting others. - Plan: a. Continue current anxiolytic medication. b. Monitor anxiety symptoms closely. c. Encourage relaxation techniques like deep breathing exercises and mindfulness meditation. 3. Sleep - Patient reports getting 5-7 hours of sleep per night. - Plan: a. Encourage consistent sleep schedule and good sleep hygiene. b. Monitor sleep duration and quality at future visits 4. Appetite - Patient reports a good appetite. - Plan: a. Encourage balanced diet and regular weight monitoring. b. Assess appetite at future visits. 5. Medication Management - No changes in medication reported. - Plan: a. Continue current medication regimen. b. Monitor for side effects or new physical complaints at future visits. 6. Physical Health - No new physical complaints reported. - Plan: a. Encourage prompt reporting of any new physical symptoms. b. Monitor overall physical health at future visits. Plan: * Treatment: * Therapeutic Injections:? Spravato 84 mg : 84 mg (Route: Nasal) given by RUI Gold (Major depressive disorder, recurrent severe without psychotic features) * Procedure Codes:?10803 PROLO NGED OFFICE OR OTHER OUTPATIENT EVALUATION AND MANAGEMENT SERVICE(S) (BEYOND THE TOTAL TIME OF THE PRIMARY PROCEDURE WHICH HAS BEEN SELECTED USING TOTAL TIME), REQUIRING TOTAL TIME WITH OR WITHOUT DIRECT PATIENT CONTACT BEYOND THE USUAL SERVICE, ON T, Units: 4.00 * Follow Up:?06/26/2024 (Reason : follow up with provider) * Billing Information: * Visit Code:? 05663 OFFICE OUTPATIENT VISIT 40 MINUTES COMPREHENSIVE HISTORY AND EXAM/HIGH MEDICAL DECISION MAKING. * Procedure Codes:? 62069 PROLONGED OFFICE OR OTHER OUTPATIENT EVALUATION AND MANAGEMENT SERVICE(S) (BEYOND THE TOTAL TIME OF THE PRIMARY PROCEDURE WHICH HAS BEEN SELECTED USING TOTAL TIME), REQUIRING TOTAL TIME WITH OR WITHOUT DIRECT PATIENT CONTACT BEYOND THE USUAL SERVICE, ON T. Units: 4.00. * WARE CONSULTANT Sign off status: Completed true * Provider:?RUI Gold Date:?05/01 Generated for Keaton magallon/Sergio/eTransmitting on:?05/13/2024 10:18 PM SOFTWARE CONSULTANT History and Physical Notes * HPI (History of Present Illness) Category Sub-Category Detail Notes Category Not es Esketamine Administration Esketamine administration Time at the start of administratio n: 3:02 PM Esketamine Nasal [place] Administration and Supervised monitoring Staff attending the patient Nancy Supervising provider as in rendering provider: RUI Rizzo Is patient taking any of the following concomitant medication that may cause sedation of blood pressure changes Benzodiazepine No Non-benzodiazepine sedative-hypnotics: Yes Psychostimulant: No Monoamine oxidase inhibitors [MAOIs]: No Dose of Spravato: 84 Mg Lot number [id number] Date: 08/08/2026 Time of discharge: 5:02 PM Patient must be monitored fo r at least 2 hours: Yes Was the patient clinically r jerson for discharge prior to the required 2-hour:: Yes Serious adverse events durin g the treatment session or since the last treatment session? none: NO Silent Alarm used by patient: NO staff Notes about today's Visit: Patient ate at 2:30 PM. Patients spouse will pick her up. Examination Category Sub-Category Detail Notes Category Not es General Examination Psych: alert and or iented x 3, cognitive function intact, cooperative with exam, maintains good eye contact, with good judgement and insight, normal affect / mood, with no auditory or visual hallucinations, speech is clear and coherent, thought process is logical and goal directed without suidical ideation or delusions - Mental Status Examination: - Patient rates depression severity at 7-810 and anxiety severity at 6-710. - Denies experiencing suicidal ideation, self-harm, and homicidal ideation. - Denies visual or auditory hallucinations, delusions, and paranoia. - Reports sleeping approximately 5-7 hours per night. - Describes appetite as pretty good. - Vital Signs: Review note - Physical Examination: - No new physical complaints reported.
--- OUTSIDE RECORDS SUMMARY | 2024-05-13 22:19 | XMS_ITS | Encounter Summary ---
Author Organization [facility] Address [address] [place] [address] Care Team Providers Care Green Building Engineer Name Role Phone Martha Lawrence MD Primary Care Provider [phone] Kathy Corley Unavailable [phone] Gibran David Unavailable Encounter Details Date Type Department Care Team (Latest Contact Info) Description 06/07/2023 1:05 PM CLINICAL LABORATORY SCIENTIST Clinical Support [facility] - Ophthalmology [address] [place] [phone] Chrystal Roa MD [address] [place] [address] [place] [address] History of vitrectomy (Primary Dx) Social History Tobacco Use Types Packs/Day Years Used Date Smoking Tobacco: Never Smokeless Tobacco: Never Alcohol Use Standard Drinks/Week Comments Never 0 (1 standard drink = 0.6 oz pur e alcohol) AUDIT-C Answer Date Recorded Q1: How often do you have a drink containing alcohol? Never 04/21/2022 Q2: How many drinks containi ng alcohol do you have on a typical day when you are drinking? Patient does not drink Q3: How often do you have si x or more drinks on one occasion? Never 04/21/2022 PHQ-2 Answer Date Recorded PHQ2 TOTAL SCORE 6 03/31/2022 Sex and Gender Information Value Date Recorded Sex Assigned at Not on file Gender Identity Not on file Sexual Orientation Not on file documented as of this encounter Functional Status Functional Status Response Date of Assess ment Is person deaf or have serious hearing difficult y? No 03/31/2022 Is person blind or have serious difficulty seein g? No 03/31/2022 Does person have serious dif ficulty walking/climbing stairs? No 03/31/2022 Does person have difficulty dressing/bathing? No 03/31/2022 Does person have difficulty doing errands alone? No 03/31/2022 Cognitive Status Response Date of Assessm ent Does person have difficulty concentrating/remembering/making decisions? No 03/31/2022 documented as of this encounter Plan of Treatment Upcoming Encounters Date Type Department Care Team (Late st Contact Info) Description 06/07/2024 1:00 PM CLINICAL LABORATORY SCIENTIST Office Visit [facility] Ophthalmology [address] [place] [phone] Chrystal Roa MD [address] [place] [address] [place] [phone] 06/23/2024 2:00 PM CLINICAL LABORATORY SCIENTIST [facility] [address] [place] [phone] Fidel Moss MD [address] [place] [phone] documented as of this encounter Procedures Procedure Name Priority Date/Time Associated Diagnosis Comments RETINAL ANALYSIS OCT Routine 06/07/2023 12:59 PM CLINICAL LABORATORY SCIENTIST History of vitrectomy documented in this encounter Results * RETINAL ANALYSIS OCT (06/07/2023 12:59 PM CLINICAL LABORATORY SCIENTIST) Anatomical Region Laterality Modality Head External-Camera Photography Narrative 06/09/2023 1:29 PM CLINICAL LABORATORY SCIENTIST Images from the original result were not included. OCT OD: Normal retina crosssection with preservation of fovea, clivus, and cellular lamina OS: Prosthesis OD : Today's picture bottom one Chrystal Roa MD OPHTHALMOLOGY SCHED ORD W PACS documented in this encounter Visit Diagnoses Diagnosis History of vitrectomy- Primary Other states following surgery of eye and adnexa documented in this encounter Care Teams Green Building Engineer Relationship Specialty Start Date End Date Martha Lawrence MD PCP - General 03/21/20 Kathy Corley, SENIOR STOCK PLAN ADMINISTRATOR-REFRIGERATION MECHANIC HELPER [address] [facility] [place] [phone] Nurse Practitioner Ophthalmology 12/14/22 Gibran David [address] [place] [address] 12/14/22 documented as of this encounter
--- OUTSIDE RECORDS SUMMARY | 2024-05-13 22:19 | XMS_ITS | Encounter Summary ---
Author Organization [facility] Address [address] [place] [address] Care Team Providers Care Thread Singer Name Role Phone Martha Lawrence MD Primary Care Provider [phone] Kathy Corley Unavailable [phone] Gibran David Unavailable Encounter Details Date Type Department Care Team (Latest Contact Info) Description 12/14/2022 Travel Social History Tobacco Use Types Packs/Day Years [...] st Contact Info) Description 06/07/2024 1:00 PM CYLINDER DIE MACHINE HELPER Office Visit [facility] - Ophthalmology [address] [place] [phone] Chrystal Roa MD [address] [place] [address] [place] [phone] 06/23/2024 2:00 PM CYLINDER DIE MACHINE HELPER Office Visit [facility] - Ophthalmology [address] [place] [phone] Fidel Moss MD [address] [place] [address] [phone] documented as of this encounter Visit Diagnoses Not on filedocumented in this encounter Care Teams Thread Singer Relationship Specialty Start Date End Date Martha Lawrence MD PCP - General 03/21/20 Kathy Corley, CHIEF EMBALMER-STARS ANALYTICAL LEAD [address] [place] [address] [place] [phone] Nurse Practitioner Ophthalmology 12/14/22 Gibran David [address] [address] 12/14/22 documented as of this encounter
--- OUTSIDE RECORDS SUMMARY | 2024-05-13 22:19 | XMS_ITS | Clinical Summary ---
Author Organization [facility] Address [address] [place] [address] Care Team Providers Care It Consulting Director Name Role Phone Martha Lawrence MD Primary Care Provider [phone] Kathy Corley Unavailable [phone] Gibran David Unavailable Source Comments [facility],non-owned Affiliates and Associated Physician Practices is amultiple site organization consisting of ambulatory clinics and hospital sitesin [place], [place], [place] and [place]. This disclosure is being madepursuant to the Care Everywhere program and may not contain all information available regarding this patient. Last updated 18.[facility] Allergies Active Allergy Reactions Criticality Noted Date Comments Oxycodone-Acetaminophen Diarrhea,Nausea and/or Vomiting,Vomiting Low 03/26/2020 Penicillins Urticaria,Rash,Skin Reactions Medium 01/09 Sulfa Drugs Urticaria,Rash,Itching Medium 04/29/2018 Sulfacetamide Urticaria,Rash,Eye Discomfort,Eye Itching Medium 03/26/2020 Medications * Be aware that medications may not be up to date on this document. Alwaysverify current medications with the patient. Medication Sig Dispensed Refills Start Date End Date Status albuterol HFA (PROVENTIL;VENTOLIN ;PROAIR) 108 (90 Base) MCG/ACT inhalerIndications: Asthma Inhale 2 (two) puffs by mouth every 6 hours as needed for Shortness of Breath or Wheezing Reasons: Asthma 1 Inhaler 1 09/09/2020 Active latanoprost (XALATAN) 0.005 % ophthalmic solutionIndications :Open-Angle Glaucoma Instill 1 (one) drop into right eye at bedtime 7.5 mL 4 06/26/2021 Active omeprazole (PriLOSEC) 20 MG capsuleIndications: Gastroesophageal Reflux Disease Take 1 (one) capsule by mouth 2 times daily, before breakfast and supper Active montelukast (Singulair) 10 MG tabletIndications:A sthma Take 1 (one) tablet by mouth at bedtime Reasons: Asthma 30 tablet 1 04/03/2022 Active lamoTRIgine (LaMICtal) 100 MG tabletIndications:M ood Disorder Take 1 (one) tablet by mouth at bedtime Reasons: Mood Disorder 30 tablet 1 04/03/2022 Active atomoxetine (Strattera) 60 MG capsuleIndications: Attention Deficit Hyperactivity Disorder Take 1 (one) capsule by mouth once daily Reasons: Attention Deficit Hyperactivity Disorder 30 capsule 1 04/04/2022 Active nebivolol (Bystolic) 10 MG tablet Take 1 (one) tablet by mouth once daily Active buPROPion XL 24hr (Wellbutrin-XL) 150 MG tablet Take 1 (one) tablet by mouth every morning Active clonazePAM (KlonoPIN) 0.5 MG tablet Take 1 (one) tablet by mouth once daily as needed 05/20/2023 Active Linzess 72 MCG capsule Take 1 (one) capsule by mouth once daily 06/03/2023 Active Myfembree 40-1-0.5 MG TABS Take 1 tablet by mouth once daily 05/26/2023 Active tirzepatide (Mounjaro) 5 MG/0.5ML injection Inject 5 (five) mg subcutaneously every 7 days 2 mL 5 04/06/2023 Active Vraylar 3 MG capsule Take 1 (one) capsule by mouth once daily 05/20/2023 Active escitalopram (Lexapro) 20 MG tablet Take 1 (one) tablet by mouth every morning Active Creon 6000-49306 units capsule 2 CAP ORALLY THREE TIMES A DAY FOR 1 MONTH DO NOT EXCEED 10,000 UNIT/KG LIPASE PER 24 HRS 04/05/2023 Active spironolactone (Aldactone) 100 MG tablet Take 1 (one) tablet by mouth every morning Active neomycin-polymyxin- dexameth (Maxitrol) ophthalmic ointment Instill into left eye 2 times daily as needed 3.5 g 3 06/22/2023 Active Active Problems Problem Noted Date Diagnosed Date Alcohol use disorder, mild, abuse 04/01/2022 Cannabis use disorder, mild, abuse 04/01/2022 ADHD (attention deficit hyperactivity disorder) 04/01/2022 Major depressive disorder wi th current active episode, unspecified depression episode severity, unspecified whether recurrent 03/31/2022 Severe recurrent major depre ssion without psychotic features 03/31/2022 Generalized anxiety disorder 02/17/2022 Prediabetes 12/24/2020 History of glaucoma tube shunt procedure 021 Migrated orbital implant 09/23/2020 Vision problem 09/23/2020 PTSD (post-traumatic stress disorder) 09/06/2020 Otorrhea of left ear 08/13/2020 Overview (09/24/2020): Last Assessment & Plan: Avoid ear cleaning techniques Avoid water to ears Ciprofloxacin 7 drops into the left ear twice daily for 10 days Call if no improvement in ear fullness Secondary glaucoma, mild stage, right 06/21/2020 Overview (06/21/2020): Patient with history of congenital glaucoma with cataract extraction at about 6 months of age. More recently she has developed pressure spike has high as 50 despite multiple medications. Apparently her mother also required glaucoma surgery in her late 30s with a similar history. Therefore we are planning Ahmed implant in her remaining functioning right eye as a precaution to prevent glaucoma progression in her better functioning right eye. 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 Follow up in 6 months, earlier with any ear drainage 07/06/2019 T-tubes placed in Office Acute recurrent maxillary sinusitis 05/26/2019 Overview (03/26/2020): Last Assessment & Plan: Take Cefdinir with a meal daily Nasal saline spray (Simply saline, Little Remedies, [place], [place]) 2 second sprays or 2 squeezes into each nostril while looking down over the sink, do not need to sniff in. Flonase 2 sprays into each nostril while looking down over the sink, do not sniff in or blow nose after use daily Cetirizine 10 mg (Zyrtec) daily Follow up in 6 weeks with Hearing test right before follow up if no improvement in left ear, will consider ear tube placement ETD (Eustachian tube dysfunction), left 05/26/19 20 Overview (03/26/2020): Last Assessment & Plan: Avoid ear cleaning techniques Avoid water to ears Follow up in 6 months, earlier with any ear drainage Hearing loss of left ear 05/26/2019 Overview (03/26/2020): Last Assessment & Plan: Hearing test right before follow up Left ear pain 05/26/2019 Overview (03/26/2020): Last Assessment & Plan: Take Cefdinir with a meal daily Nasal saline spray (Simply saline, Little Remedies, [place], [place]) 2 second sprays or 2 squeezes into each nostril while looking down over the sink, do not need to sniff in. Flonase 2 sprays into each nostril while looking down over the sink, do not sniff in or blow nose after use daily Cetirizine 10 mg (Zyrtec) daily Follow up in 6 weeks with Hearing test right before follow up if no improvement in left ear, will consider ear tube placement Morbid obesity with body mass index of 40.0-49.9 03/16/2019 Polycystic ovaries 07/01/2018 Abnormal ultrasound of breast 04/29/2018 Discharge from nipple 04/29/2018 Lump of left breast 04/29/2018 Lump of right breast 04/29/2018 Mastodynia 04/29/2018 Trochanteric bursitis, right hip 10/26/2017 Gastroesophageal reflux disease 06/26/2014 Overview (03/26/2020): GERD (gastroesophageal reflux disease) Tonsillitis 06/26/2014 Overview (03/26/2020): Tonsillitis Obstructive sleep apnea syndrome 05/14/2014 Overview (03/26/2020): Overview: Nasal (CPAP) qhs all night Well controlled YEMI Vitamin D deficiency 05/14/2014 Overview (03/26/2020): Vitamin D deficiency Anemia 09/23/2013 Overview (03/26/2020): Overview: Post hemo ANEMIA NOS Generalized anxiety disorder 09/23/2013 Overview (03/26/2020): ANXIETY STATE NOS Benign hypertension 09/23/2013 Overview (03/26/2020): BENIGN HYPERTENSION Major depressive disorder, recurrent episode, se caleb 09/23/2013 Overview (03/26/2020): DEPRESSIVE DISORDER NEC Impaired fasting glucose 09/23/2013 Overview (03/26/2020): IMPAIRED FASTING GLUCOSE 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/23/2013 Overview (03/26/2020): MIXED HYPERLIPIDEMIA Depressive disorder 09/23/2013 Overview (06/26/2021): DEPRESSIVE DISORDER NEC Iron deficiency anemia 02/18/2012 Overview (03/26/2020): Iron deficiency anemia Congenital cataract of both eyes Overview (06/21/2020): By history patient had congenital cataract extraction both eyes at about 6 months of age. Fidel Moss MD 06/21/2020 10:21 AM Anophthalmos of left eye Overview (06/21/2020): Patient with history of retinal detachment that occurred soon after congenital cataract extraction left eye in the patient has subsequently undergone enucleation with prosthesis. Fidel Moss MD 06/21/2020 10:21 AM Congenital glaucoma of right eye Immunizations Name Administration Dates Next Due INFLUENZA VACCINE, TRIV. (AF LURIA, FLUZONE TRIVALENT; 6MO+) (IIV3) 03/11/2011 INFLUENZA 03/22/2020 INFLUENZA VACCINE, QUADR. (A FLURIA, FLUZONE QUADRIVALENT; 6MO+) (IIV4) 05/12/2013 INFLUENZA VACCINE, QUADR. (F LUZONE; FLULAVAL; FLUARIX; AFLURIA QUADRIVALENT; 6MO+), 0.5 ML (IIV4) 04/01/2022 INFLUENZA VACCINE, RECOM-KISER, TRIV. (FLUBLOCK TRIVALENT; 18Y+) (RIV3) 05/14/2014 TDAP (7yrs+) 07/24/2008 Family History Medical History Relation Name Comments Diabetes; unknown type Maternal Grandmother Hypertension Maternal Grandmother Diabetes; unknown type Mother Glaucoma Mother Hypertension Mother Diabetes; unknown type Sister Relation Name Status Comments Maternal Grandmother Mother Sister Social History Tobacco Use Types Packs/Day Years Used Date Smoking Tobacco: Never Smokeless Tobacco: Never Tobacco Cessation:Counseling Given: Not Answered Alcohol Use Standard Drinks/Week Comments Never 0 [...] on file Sexual Orientation Not on file Last Filed Vital Signs Vital Sign Reading Time Taken Comments Blood Pressure 143/101 09/25/2022 8:34 AM CDT Pulse 105 09/25/2022 8:32 AM CDT Temperature 37.4 ??C (99.4 ??F) 09/25/2022 8:32 AM CD T Respiratory Rate 21 09/25/2022 8:32 AM CDT Oxygen Saturation 98% 09/25/2022 8:32 AM CDT Inhaled Oxygen Concentration - - Weight 115.7 kg (255 lb) 04/21/2022 12:37 PM SCRIBING MACHINE OPERATOR Height 165.1 cm (5' 5 ) 04/21/2022 12:37 PM SCRIBING MACHINE OPERATOR Body Mass Index 42.43 04/21/2022 12:37 PM SCRIBING MACHINE OPERATOR Plan of Treatment Upcoming Encounters Date Type Department Care Team (Late st Contact Info) Description 06/07/2024 1:00 PM SCRIBING MACHINE OPERATOR Office Visit [facility] - Ophthalmology [address] [place] [phone] Chrystal Roa MD [address] [place] [address] [place] [phone] 06/23/2024 2:00 PM SCRIBING MACHINE OPERATOR Office Visit [facility] - Ophthalmology [address] [place] [phone] Fidel Moss MD [address] [place] [phone] Health Maintenance Due Date Last Done Comments PAP SMEAR 1981 HIV SCREENING 01/13/1996 HEPATITIS C SCREENING 01/08/1999 HEPATITIS B VACCINE (1 of 3 - 19+ 3-dose series) 01/13/2000 DTAP/TDAP/TD VACCINES (2 - Td or Tdap) 07/24/2018 07/24/2008 MAMMOGRAM 03/18/2023 03/18/2021, 12/12/2019 DEPRESSION SCREENING 05/10/2023 04/29/2022, 04/27/2022, 04/21/2022, Additional history exists COVID-19 VACCINE (1 - 2023- season) 2024 INFLUENZA VACCINE (#1) 2024 2, 02/11/2021, 03/22/2020, Additional history exists LIPID TESTING 04/01/2027 04/01/2022, 09/06/2020 ZOSTER VACCINE (1 of 2) 2031 HIB VACCINE Aged Out No longer eligi ble based on patient's age to complete this topic HPV VACCINE Aged Out No longer eligi ble based on patient's age to complete this topic MENINGOCOCCAL VACCINE Aged Out No thee annemarie eligible based on patient's age to complete this topic PNEUMOCOCCAL VACCINE Aged Out No long er eligible based on patient's age to complete this topic Medical Devices Implanted Type Area Assembler Product Device Identifier Shelf Expiration Date Model / Serial / Lot Drain Glcm Thk.9mm Blnt Tpr Ahmed Flxb Implanted:Qty: 1 on 07/03/2020 by Franco Martinez MD at [facility] 04/30/2022 FP7 / / [id number] Graft Tissue Ttpl Ioptch Sclr .8x.5cm - [id number] Implanted:Qty: 1 on 07/03/2020 by Franco Martinez MD at [facility] [employer] 03/09/2025 [id number] / / [id number] Procedures Procedure Name Priority Date/Time Associated Diagnosis Comments LIPID PROFILE AM Draw 04/01/2022 6:23 AM SCRIBING MACHINE OPERATOR from Last 3 Months or Most Recently Relevant to Health Maintenance Results * (ABNORMAL) LIPID PROFILE (04/01/2022 6:23 AM SCRIBING MACHINE OPERATOR) Cholesterol 154 <200 mg/dL 04/01/2022 6:48 AM SCRIBING MACHINE OPERATOR [facility] Triglycerides 133 <150 mg/dL 04/01/2022 6:48 AM SCRIBING MACHINE OPERATOR [facility] HDL Cholesterol 35(L) >40 mg/dL 2 6:48 AM SCRIBING MACHINE OPERATOR [facility] LDL Calculated 92 <130 mg/dL 04/01/2022 6:48 AM SCRIBING MACHINE OPERATOR [facility] VLDL Calculated 27 <=30 mg/dL 2 6:48 AM SCRIBING MACHINE OPERATOR [facility] Chol HDL Ratio 4.4 <4.5 04/01/2022 6:48 AM SCRIBING MACHINE OPERATOR [facility] LDL/HDL Ratio 2.6 <5.0 04/01/2022 6:48 AM SCRIBING MACHINE OPERATOR [facility] Blood BLOOD SPECIMEN / Unknown Venipuncture / Unknown 04/01/2022 6:23 AM SCRIBING MACHINE OPERATOR 04/01/2022 6:29 AM SCRIBING MACHINE OPERATOR Shade Reddy MD LAB - CHEMISTRY [facility] Organization Address City/State/[facility] Co de Phone Number [facility] [address] [place] [phone] from Last 3 Months or Most Recently Relevant to Health Maintenance Advance Directives * Full Code (Latest Code Status on File) Date Activated Date Inactivated Comments 03/31/2022 8:46 PM 04/03/2022 5:55 PM * Full Code Date Activated Date Inactivated Comments 03/31/2022 6:15 PM 03/31/2022 7:59 PM * Full Code Date Activated Date Inactivated Comments 09/05/2020 11:08 PM 09/09/2020 5:05 PM Care Teams It Consulting Director Relationship Specialty Start Date End Date Martha Lawrence MD PCP - General 03/21/20 Kathy Corley, AIRPLANE CLEANER-END USER SUPPORT SPECIALIST [address] [place] [address] Nurse Practitioner Ophthalmology 12/14/22 Gibran David [address] [facility] [address] [place] [address] 12/14/22
--- OUTSIDE RECORDS SUMMARY | 2024-05-13 22:19 | XMS_ITS | Referral Summary ---
Author Organization [facility] Address [address] [place] [address] Care Team Providers Care Personal Caregiver Name Role Phone Martha Lawrence MD Primary Care Provider [phone] Kathy Corley Unavailable [phone] Gibran David Unavailable Source Comments [facility],non-owned Affiliates and Associated Physician Practices is amultiple site organization consisting of ambulatory clinics and hospital sitesin [place], [place], [place] and [place]. This disclosure is being madepursuant to the Care Everywhere program and may not contain all information available regarding this patient. Last updated 18.[facility] Allergies Active Allergy Reactions Criticality Noted [...] tablet by mouth every morning Active Creon 6000-16509 units capsule 2 CAP ORALLY THREE TIMES [...] Nasal saline spray (Simply saline, Little Remedies, [place], [place]) 2 second sprays or 2 squeezes into each nostril while looking down over the sink, do not need to sniff in. Follow up in 6 months, earlier with any ear drainage 07/06/2019 T-tubes placed in Office Acute recurrent maxillary sinusitis 05/26/2019 Overview (03/26/2020): Last Assessment & Plan: Take Cefdinir with a meal daily Nasal saline spray (Simply saline, Little Remedies, [place], [place]) 2 second sprays or 2 squeezes into [...] Nasal saline spray (Simply saline, Little Remedies, [place], [place]) 2 second sprays or 2 squeezes into [...] TRIVALENT; 18Y+) (RIV3) 05/14/2014 TDAP (7yrs+) 07/24/2008 Social History Tobacco Use Types Packs/Day Years [...] 115.7 kg (255 lb) 04/21/2022 12:37 PM FREIGHT HUSTLER Height 165.1 cm (5' 5 ) 04/21/2022 12:37 PM FREIGHT HUSTLER Body Mass Index 42.43 04/21/2022 12:37 PM FREIGHT HUSTLER Functional Status Functional Status Response Date of [...] person have difficulty concentrating/remembering/making decisions? No 03/31/2022 Plan of Treatment Upcoming Encounters Date Type Department Care Team (Late st Contact Info) Description 06/07/2024 1:00 PM FREIGHT HUSTLER Office Visit [facility] - Ophthalmology [address] [place] [phone] Chrystal Roa MD [address] [place] [address] [place] [phone] 06/23/2024 2:00 PM FREIGHT HUSTLER Office Visit [facility] - Ophthalmology [address] [place] [address], [place] [phone] Fidel Moss MD [address] [place] [phone] Medical Devices Implanted Type Area Fruit Canner Device Identifier Shelf Expiration Date Model / Serial / Lot Drain Glcm Thk.9mm Blnt Tpr Ahmed Flxb Implanted:Qty: 1 on 07/03/2020 by Franco Martinez MD at [facility] 04/30/2022 7 / / [id number] Graft Tissue Ttpl Ioptch Sclr .8x.5cm - [id number] Implanted:Qty: 1 on 07/03/2020 by Franco Martinez MD at [facility] [employer] 03/09/2025 [id number] / / [id number] Procedures Procedure Name Priority Date/Time Associated Diagnosis Comments LIPID PROFILE AM Draw 04/01/2022 6:23 AM FREIGHT HUSTLER from Last 3 Months or Most Recently Relevant to Health Maintenance Results * (ABNORMAL) LIPID PROFILE (04/01/2022 6:23 AM FREIGHT HUSTLER) Cholesterol 154 <200 mg/dL 04/01/2022 6:48 AM FREIGHT HUSTLER [facility] Triglycerides 133 <150 mg/dL 04/01/2022 6:48 AM FREIGHT HUSTLER [facility] HDL Cholesterol 35(L) >40 mg/dL 2 6:48 AM FREIGHT HUSTLER [facility] LDL Calculated 92 <130 mg/dL 04/01/2022 6:48 AM FREIGHT HUSTLER [facility] VLDL Calculated 27 <=30 mg/dL 2 6:48 AM FREIGHT HUSTLER [facility] Chol HDL Ratio 4.4 <4.5 04/01/2022 6:48 AM FREIGHT HUSTLER [facility] LDL/HDL Ratio 2.6 <5.0 04/01/2022 6:48 AM FREIGHT HUSTLER [facility] Blood BLOOD SPECIMEN / Unknown Venipuncture / Unknown 04/01/2022 6:23 AM FREIGHT HUSTLER 04/01/2022 6:29 AM FREIGHT HUSTLER Shade Reddy MD LAB - CHEMISTRY [facility] Organization Address City/State/ZIP Co de Phone Number [facility] [address] [place] [address] from Last 3 Months or Most Recently Relevant to Health Maintenance Advance Directives * Full Code (Latest Code Status on File) Date Activated Date Inactivated Comments 03/31/2022 8:46 PM 04/03/2022 5:55 PM * Full Code Date Activated Date Inactivated Comments 03/31/2022 6:15 PM 03/31/2022 7:59 PM * Full Code Date Activated Date Inactivated Comments 09/05/2020 11:08 PM 09/09/2020 5:05 PM Care Teams Personal Caregiver Relationship Specialty Start Date End Date Martha Lawrence MD PCP - General 03/21/20 Kathy [place], PEOPLE MANAGER-FRAMING MECHANIC [address] [facility] [place] [phone] Nurse Practitioner Ophthalmology 12/14/22 Gibran David [address] [facility] [address] [place] [address] 12/14/22
--- OUTSIDE RECORDS SUMMARY | 2024-05-13 22:19 | XMS_ITS | Encounter Summary ---
Author Organization [facility] Address [address] [place] [address] Care Team Providers Care Registered Nurses Name Role Phone Martha Lawrence MD Primary Care Provider [phone] Kathy Corley Unavailable [phone] Gibran David Unavailable Encounter Details Date Type Department Care Team (Latest Contact Info) Description 06/22/2023 2:35 PM PRE PLANNING ADVISOR Clinical Support [facility] [address] [place] [phone] Fidel Moss MD [address] [place] [phone] Anophthalmos (Primary Dx) Social History Tobacco Use Types [...] st Contact Info) Description 06/07/2024 1:00 PM PRE PLANNING ADVISOR Office Visit [facility] - Ophthalmology [address] [place] [phone] Chrystal Roa MD [address] [place] [address] [place] [phone] 06/23/2024 2:00 PM PRE PLANNING ADVISOR Office Visit [facility] Ophthalmology [address] [place] [phone] Fidel Moss MD [address] [place] [phone] Pending Results Name Type Priority Associated Diagnoses Date /Time ANTERIOR IMMERSION UNI/BI Ophthalmology Routine Anophthalmos 06/22/2023 2:30 PM PRE PLANNING ADVISOR documented as of this encounter Visit Diagnoses Diagnosis Anophthalmos- Primary documented in this encounter Care Teams Registered Nurses Relationship Specialty Start Date End Date Martha Lawrence MD PCP - General 03/21/20 Kathy Cor[place], DEPUTY REGISTER OF DEEDS-COLLISION REPAIRER [address] [place] [address] [place] [phone] Nurse Practitioner Ophthalmology 12/14/22 Gibran David [address] [address] 12/14/22 documented as of this encounter
--- OUTSIDE RECORDS SUMMARY | 2024-05-13 22:19 | XMS_ITS | Encounter Summary ---
Author Organization [facility] Address [address] [facility] [place] [address] Care Team Providers Care Server Cashier Name Role Phone Martha Lawrence MD Primary Care Provider [phone] Kathy Corley Unavailable [phone] Gibran David Unavailable Encounter Details Date Type Department Care Team (Latest Contact Info) Description 01/19/2023 12:05 PM CDT Clinical Support [facility]mology [address] [place] [phone] Fidel Moss MD [address] [place] [phone] Secondary glaucoma, mild stage, right (Primary Dx) Social History Tobacco Use Types [...] st Contact Info) Description 06/07/2024 1:00 PM BOX TOE STITCHER Office Visit [facility]mology [address] [place] [phone] Chrystal Roa MD [address] [place] [address] [place] [address] 06/23/2024 2:00 PM BOX TOE STITCHER Office Visit [facility]mology [address] [place] [phone] Fidel Moss MD [address] [place] [phone] documented as of this encounter Procedures Procedure Name Priority Date/Time Associated Diagnosis Comments OPTIC NERVE ANALYSIS OCT Routine 01/19/2023 12:01 PM CDT Secondary glaucoma, mild stage, right documented in this encounter Results * OPTIC NERVE ANALYSIS OCT (01/19/2023 12:01 PM CDT) Anatomical Region Laterality Modality Head External-Camera Photography Narrative 01/19/2023 12:40 PM CDT Images from the original result were not included. Thin RNFL OD, stable on GPA since 2019. Fidel Moss MD OPHTHALMOLOGY SCHED ORD W PACS documented in this encounter Visit Diagnoses Diagnosis Secondary glaucoma, mild stage, right- Primary documented in this encounter Care Teams Server Cashier Relationship Specialty Start Date End Date Martha Lawrence MD PCP - General 03/21/20 Kathy Corley, J2EE ENGINEER-COMMUNITY DEVELOPMENT AIDE [address] [facility] [place] [phone] Nurse Practitioner Ophthalmology 12/14/22 Gibran David [address] [facility] [address] [place] [address] 12/14/22 documented as of this encounter
--- OUTSIDE RECORDS SUMMARY | 2024-05-13 22:19 | XMS_ITS | Encounter Summary ---
Author Organization [facility] Address [address] [facility] [place] [address] Care Team Providers Care Physical Design Engineer Name Role Phone Martha Lawrence MD Primary Care Provider [phone] Kathy Corley Unavailable [phone] Gibran David Unavailable Encounter Details Date Type Department Care Team (Latest Contact Info) Description 06/07/2023 Travel Social History Tobacco Use Types Packs/Day [...] st Contact Info) Description 06/07/2024 1:00 PM INDUSTRIAL GARAGE SERVICER Office Visit [facility] [address] [place] [phone] Chrystal Roa MD [address] [place] [address] [place] [phone] 06/23/2024 2:00 PM INDUSTRIAL GARAGE SERVICER Office Visit [facility] - Ophthalmology [address] [place] [phone] Fidel Moss MD [address] [place] [phone] documented as of this encounter Visit Diagnoses Not on filedocumented in this encounter Care Teams Physical Design Engineer Relationship Specialty Start Date End Date Martha Lawrence MD PCP - General 03/21/20 Kathy Corley, INTERNATIONAL NURSE-LIFE MANAGER [address] [place] [address] [place] [phone] Nurse Practitioner Ophthalmology 12/14/22 Gibran David [address] [address] 12/14/22 documented as of this encounter
--- OUTSIDE RECORDS SUMMARY | 2024-05-13 22:19 | XMS_ITS | Encounter Summary ---
Author Organization [facility] Address [address] [facility] [place] [address] Care Team Providers Care Derrick Boat Operator Name Role Phone Martha Lawrence MD Primary Care Provider [phone] Kathy Corley Unavailable [phone] Gibran David Unavailable Reason for Visit * Reason Comments Follow-up Encounter Details Date Type Department Care Team (Late st Contact Info) Description 06/22/2023 1:40 PM TELETYPE OR VARITYPE KEYBOARD OPERATOR Office Visit [facility] - Ophthalmology [address] [place] [phone] Secondary glaucoma, mild stage, right (Primary Dx); History of glaucoma tube shunt procedure; Orbital cyst, right; Anophthalmos Social History Tobacco Use Types Packs/Day Years [...] No 03/31/2022 documented as of this encounter Patient Instructions * Patient Instructions* Festus White MD - 06/22/2023 3:11 PM TELETYPE OR VARITYPE KEYBOARD OPERATOR [facility] Ophthalmology Located at: [facility] Ophthalmology [address] [place] [address] Your Visit from 06/22/2023 Follow up Appointment: 6 months - It is important that you follow up with us for the health of your eyes. - If you have trouble making or getting to your appointment please call our clinic Eye Drop Instructions: In the right eye: Latanoprost (TEAL TOP) 1 drop at bedtime Oral Medications: Activity Instructions: Do Not Rub your Eyes Reasons to call: - call with any new changes in vision, including if you feel your vision worsens - call if you have new flashes, floaters, or a feeling of a curtain coming down over your vision - call with any questions about your drops or eye medications, or if you have trouble getting thesemedicines. Phone Number: Weekdays (8am-5pm) - Call [phone] () Evenings, Weekends, or Holidays: Call [phone] and dial [phone] for the calciner operator helper. Ask to speak to the eye doctor integration engineer. They will connect us. TYPE OR VARITYPE KEYBOARD OPERATOR documented in this encounter Progress Notes * Festus White MD - 06/22/2023 2:27 PM CST Images from the original note were not included. Ophthalmology Office Note - Glaucoma Clinic Subjective Micole V Miles is an 43 year old Chief Complaint Patient presents with ??? Follow-up Drops: Latanoprost QHS OD Current Outpatient Medications Medication Sig Dispense Refill ??? albuterol HFA (PROVENTIL;VENTOLIN;PROAIR) 108 (90 Base) MCG/ACT inhaler Inhale 2 (two) puffs bymouth every 6 hours as needed for Shortness of Breath or Wheezing Reasons: Asthma 1 Inhaler 1 ??? atomoxetine (Strattera) 60 MG capsule Take 1 (one) capsule by mouth once daily Reasons: Attention Deficit Hyperactivity Disorder 30 capsule 1 ??? buPROPion XL 24hr (Wellbutrin-XL) 150 MG tablet Take 1 (one) tablet by mouth every morning ??? clonazePAM (KlonoPIN) 0.5 MG tablet Take 1 (one) tablet by mouth once daily as needed ??? Creon 6000-02451 units capsule 2 CAP ORALLY THREE TIMES A DAY FOR 1 MONTH DO NOT EXCEED 10,000 UNIT/KG LIPASE PER 24 HRS ??? escitalopram (Lexapro) 20 MG tablet Take 1 (one) tablet by mouth every morning ??? lamoTRIgine (LaMICtal) 100 MG tablet Take 1 (one) tablet by mouth at bedtime Reasons: Mood Disorder 30 tablet 1 ??? latanoprost (XALATAN) 0.005 % ophthalmic solution Instill 1 (one) drop into right eye at bedtime 7.5 mL 4 ??? Linzess 72 MCG capsule Take 1 (one) capsule by mouth once daily ??? montelukast (Singulair) 10 MG tablet Take 1 (one) tablet by mouth at bedtime Reasons: Asthma 30tablet 1 ??? Myfembree 40-1-0.5 MG TABS Take 1 tablet by mouth once daily ??? nebivolol (Bystolic) 10 MG tablet Take 1 (one) tablet by mouth once daily ??? ablecerv-dlftehnmm-jladveyw (Maxitrol) ophthalmic ointment Instill into left eye 2 times daily as needed 3.5 g 3 ??? omeprazole (PriLOSEC) 20 MG capsule Take 1 (one) capsule by mouth 2 times daily, before breakfast and supper ??? spironolactone (Aldactone) 100 MG tablet Take 1 (one) tablet by mouth every morning ??? tirzepatide (Mounjaro) 5 MG/0.5ML injection Inject 5 (five) mg subcutaneously every 7 days 2 mL5 ??? Vraylar 3 MG capsule Take 1 (one) capsule by mouth once daily No current facility-administered medications for this visit. Facility-Administered Medications Ordered in Other Visits Medication Dose Route Frequency Provider Last Rate Last Admin ??? 0.9% NaCl injection 3 mL 3 mL Intracatheter PRN Shade Reddy MD Allergies Allergen Reactions ??? Penicillins Urticaria, Rash and Skin Reactions ??? Sulfa Drugs Urticaria, Rash and Itching ??? Sulfacetamide Urticaria, Rash, Eye Discomfort and Eye Itching ??? Oxycodone-Acetaminophen Diarrhea, Nausea and/or Vomiting and Vomiting Past Medical History: Diagnosis Date ??? Anxiety ??? Anxiety state 09/23/2013 ANXIETY STATE NOS ??? Asthma ??? Benign hypertension 09/23/2013 BENIGN HYPERTENSION ??? Congenital cataract of both eyes ??? Depression 09/23/2013 DEPRESSIVE DISORDER NEC ??? Depression ??? Disease of larynx 03/26/2020 ??? Disease of tonsils and adenoids 03/26/2020 Overview: Tonsils w/ ??? ETD (Eustachian tube dysfunction), left 05/26/2019 Last Assessment & Plan: Avoid ear cleaning techniques Avoid water to ears Follow up in 6 months, earlier with any ear drainage ??? Gastroesophageal reflux disease 06/26/2014 GERD (gastroesophageal reflux disease) ??? Glaucoma ??? H/O vitrectomy 04/18/2020 OD ??? History of eye prosthesis 02/17/2020 Left eye ??? HTN (hypertension) ??? Iron deficiency anemia 02/18/2012 Iron deficiency anemia ??? Mastodynia 04/29/2018 ??? 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 Obstructive sleep apnea syndrome 05/14/2014 Overview: Nasal (CPAP) qhs all night Well controlled YEMI ??? PCOS (polycystic ovarian syndrome) ??? 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 Pseudophakia, right eye 3-piece IOL in sulcus ??? PTSD (post-traumatic stress disorder) ??? Vitamin D deficiency 05/14/2014 Vitamin D deficiency Past Surgical History: Procedure Laterality Date ??? Cataract Removal Right ??? 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 LASER (YAG) CAPSULOTOMY Right ??? Myomectomy ??? MYRINGOTOMY WITH TUBE INSERTION ??? OPHTHALMOLOGIC PROCEDURE/SURGERY Right 07/03/2020 Right; Ahmed implant right eye and dexamethasone subconjunctival injection, possible additional pars plana vitrectomy with tube placement in the vitreous cavity ??? OPHTHALMOLOGIC PROCEDURE/SURGERY Right 09/23/2020 Right; Ahmed tube revision right eye (shortening the tube) ??? Tonsillectomy and Adenoidectomy ??? US BREAST LEFT BIOPSY Left 12/19/2019 US BREAST LEFT FU W CORE BX 12/19/2019 ??? Vitrectomy Right 04/18/2020 Right; pars plana vitrectomy of the right eye Family History Problem Relation Name Age of Onset ??? Diabetes; unknown type Mother ??? Glaucoma Mother ??? Hypertension Mother ??? Diabetes; unknown type Sister ??? Diabetes; unknown type Maternal Grandmother ??? Hypertension Maternal Grandmother Social History Tobacco Use ??? Smoking status: Never ??? Smokeless tobacco: Never Vaping Use ??? Vaping Use: Never used Substance Use Topics ??? Alcohol use: Never ??? Drug use: Not Currently Review of Systems (positives in bold) Constitutional: Chills, fever and weight loss. HENT: Ear discharge, hearing loss and tinnitus. Respiratory: Cough, hemoptysis and wheezing. Cardiovascular: Chest pain and palpitations. Gastrointestinal: Abdominal pain, nausea and vomiting. Genitourinary: Dysuria, frequency and urgency. Musculoskeletal: Back pain, falls and myalgias. Skin: Itching and rash. Neurological: Sensory change, speech change and focal weakness. Psychiatric/Behavioral: Hallucinations, substance abuse and suicidal ideas. Objective Base Eye Exam Visual Acuity (Snellen - Linear) Right Left Dist cc 20/40 +1 pros Dist ph cc 20/30 +1 Correction: Glasses Tonometry (Tonopen, 2:23 PM) Right Left Pressure 20 pros Tonometry #2 (Applanation, 3:07 PM) Right Left Pressure 16 Neuro/Psych Oriented x3: Yes Mood/Affect: Normal Slit Lamp and Fundus Exam External Exam Right Left External Normal Normal Slit Lamp Exam Right Left Lids/Lashes Normal Normal Conjunctiva/Sclera Bleb formation over ahmed ST Prosthetic Cornea Clear, horizontal stria inferiorly, vertical stria laterally Anterior Chamber Deep and quiet Iris Round and reactive Lens Sulcus lens Anterior Vitreous Post PPV, tube in sulcus BOURGEOIS AUTO VISUAL FIELD EXTENDED ANTERIOR IMMERSION UNI/BI Assessment/Plan Micole Danette Jewell is a 43 year old female #Congenital glaucoma OD, mild stage, monocular - Risk Factors: ??? FHx??mom? Race??AA ??? Steroid use??denies? Trauma??denies? Refractive error??-2.75 ??? YEMI / COPD / Blood Transfusion -??no - Pachy:??641 (06/21/2020) - Gonio??RK (06/26/21):??open to SS 360 with 2+ pigment ou - Tmax 54 - Target: wnl ?? - Meds/compliance:??Latanoprost QHS OD (was previously on Combigan BID OD but switched 2/2 cost) ?? - Laser/Surgery Hx:? S/p CE/IOL??as toddler? 25g PPV OD for symptomatic PVD (04/18/20) ??? s/p Ahmed??with pars plana tube OD??07/03/20 ??? s/p??Ahmed tube revision??(shortening the tube),??right??eye??for tube in visual axis??09/23/20 ?? - Testing: ??? OCT 06/26/21 RNFL 76 ( thin)? HVF 09/11/21 LAYA Faster: No clear glaucoma deficit, no specific nasal depressions. VFI 98% Disc photos (06/26/21) - mild cupping B scan 06/22/2023 OD - no vitreous debris, retinal detachment, or masses HVF 06/22/2023 - full, reliable OD #Pseudophakia OD - 3 Piece in the sulcus ?? 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 #S/p 25g PPV for??VS??PVD OD??(04/18/20) - PPV performed due to??significant effect on daily activities and poor performance at work due to PVD - Follows with Dr. Roa - Reporting a few more floaters than usual today, dilated today, noRT/RD appreciated despite poor dilation - Summary: 43 year old monocular patient with congenital glaucoma s/p Ahmed in sulcus on Latanoprost doing well on 1 topical agent. Continue to monitor with HVF. Tmax 54, and mostly in low 20s after Ahmed in 2020. Was started prior on combigan BID with IOP mid-teens. Switched to Lat QHS 2/ cost issues last visit, IOP low 20s today. HVF full today OD. Will plan on repeating HVF every 6 month Plan: - Monocular precautions?? - Continue Latanoprost QHS OD - Continue Follow up with Dr. Roa - RD/vit heme symptoms reviewed, patient instructed to call immediatly/go to the ED if symptoms occur - Follow up with glaucoma for OCT nerve OD in 6 months. Please see below in blue text for attending attestation and changes to plan. Festus White MD Ophthalmology Resident 06/22/2023 3:13 PM ATTENDING NOTE....... I reviewed and confirmed the techs ROS, past histories, and readings. The patient's current ProblemList is inserted below and incorporated by reference. I have personally seen and examined the patient, and reviewed in detail the findings of the resident. I have personally performed the ophthalmology exam and updated the notes accordingly.The final examination findings, image interpretations, andplan as documented in the record represent my personal judgment and conclusions with the following additions or corrections and additional test interpretation (if any): Probably adequate glaucoma control Right eye with functioning Ahmed implant and minimal medication From Check-out note today: 1. Follow up 6 months anderson oct nerve OD undilated 2. Keep appt Dr. Roa May 2024 Test interpretation: ??? Any test interpretation from today is documented in the resident's note above associated with today's date. Fidel Anderson MD (by voice recognition software) 06/22/2023 5:52 PM Patient Active Problem List Diagnosis Date Noted ??? Alcohol use disorder, mild, abuse 04/01/2022 Priority: Not Prioritized ??? Cannabis use disorder, mild, abuse 04/01/2022 Priority: Not Prioritized ??? ADHD (attention deficit hyperactivity disorder) 04/01/2022 Priority: Not Prioritized ??? Major depressive disorder with current active episode, unspecified depression episode severity,unspecified whether recurrent 03/31/2022 Priority: Not Prioritized ??? Severe recurrent major depression without psychotic features ([facility]) 03/31/2022 Priority: Not Prioritized ??? Generalized anxiety disorder 02/17/2022 Priority: Not Prioritized ??? Congenital glaucoma of right eye Priority: Not Prioritized ??? Prediabetes 12/24/2020 Priority: Not Prioritized ??? History of glaucoma tube shunt procedure 09/23/2020 Priority: Not Prioritized ??? Migrated orbital implant 09/23/2020 Priority: Not Prioritized ??? Vision problem 09/23/2020 Priority: Not Prioritized ??? PTSD (post-traumatic stress disorder) 09/06/2020 Priority: Not Prioritized ??? Otorrhea of left ear 08/13/2020 Priority: Not Prioritized Last Assessment & Plan: Avoid ear cleaning techniques Avoid water to ears Ciprofloxacin 7 drops into the left ear twice daily for 10 days Call if no improvement in ear fullness ??? Secondary glaucoma, mild stage, right 06/21/2020 Priority: Not Prioritized Patient with history of congenital glaucoma with cataract extraction at about 6 months of age. Morerecently she has developed pressure spike has high as 50 despite multiple medications. Apparently her mother also required glaucoma surgery in her late 30s with a similar history. Therefore we are planning Ahmed implant in her remaining functioning right eye as a precaution to prevent glaucoma progression in her better functioning right eye. Fidel Anderson MD 06/21/2020 10:19 AM ??? Congenital cataract of both eyes Priority: Not Prioritized By history patient had congenital cataract extraction both eyes at about 6 months of age. Fidel Anderson MD 06/21/2020 10:21 AM ??? Anophthalmos of left eye Priority: Not Prioritized Patient with history of retinal detachment that occurred soon after congenital cataract extraction left eye in the patient has subsequently undergone enucleation with prosthesis. Fidel Anderson MD 06/21/2020 10:21 AM ??? Acute posthemorrhagic anemia 03/26/2020 Priority: Not Prioritized ??? Chronic laryngitis 03/26/2020 Priority: Not Prioritized ??? Chronic rhinitis 03/26/2020 Priority: Not Prioritized ??? Disease of larynx 03/26/2020 Priority: Not Prioritized ??? Disease of tonsils and adenoids 03/26/2020 Priority: Not Prioritized Overview: Tonsils w/ ??? Hypertrophy of nasal turbinates 03/26/2020 Priority: Not Prioritized Overview: Which is well controlled ??? Hypertrophy of tonsils with hypertrophy of adenoids 03/26/2020 Priority: Not Prioritized ??? 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 Priority: Not Prioritized ??? Upper airway resistance syndrome 03/26/2020 Priority: Not Prioritized ??? History of eye prosthesis 02/17/2020 Priority: Not Prioritized Left eye ??? History of intraocular lens implant 02/17/2020 Priority: Not Prioritized ??? Dysfunction of both eustachian tubes 01/18/2020 Priority: Not Prioritized Last Assessment & Plan: Avoid ear cleaning techniques Avoid water to ears Nasal saline spray (Simply saline, [employer]edies, [place], [place]) 2 second sprays or 2 squeezes into each nostril while looking down over the sink, do not need to sniff in. Follow up in 6 months, earlier with any ear drainage 07/06/2019 T-tubes placed in Office ??? Acute recurrent maxillary sinusitis 05/26/2019 Priority: Not Prioritized Last Assessment & Plan: Take Cefdinir with a meal daily Nasal saline spray (Simply saline, [place], [place], [place]) 2 second sprays or 2 squeezes into [...] left ear, will consider ear tube placement ??? ETD (Eustachian tube dysfunction), left 05/26/2019 Priority: Not Prioritized Last Assessment & Plan: Avoid ear cleaning techniques Avoid water to ears Follow up in 6 months, earlier with any ear drainage ??? Hearing loss of left ear 05/26/2019 Priority: Not Prioritized Last Assessment & Plan: Hearing test right before follow up ??? Left ear pain 05/26/2019 Priority: Not Prioritized Last Assessment & Plan: Take Cefdinir with a meal daily Nasal saline spray (Simply saline, [place], [place], [place]) 2 second sprays or 2 squeezes into [...] left ear, will consider ear tube placement ??? Morbid obesity with body mass index of 40.0-49.9 ([facility]) 03/16/2019 Priority: Not Prioritized ??? Polycystic ovaries 07/01/2018 Priority: Not Prioritized ??? Abnormal ultrasound of breast 04/29/2018 Priority: Not Prioritized ??? Discharge from nipple 04/29/2018 Priority: Not Prioritized ??? Lump of left breast 04/29/2018 Priority: Not Prioritized ??? Lump of right breast 04/29/2018 Priority: Not Prioritized ??? Mastodynia 04/29/2018 Priority: Not Prioritized ??? Trochanteric bursitis, right hip 10/26/2017 Priority: Not Prioritized ??? Gastroesophageal reflux disease 06/26/2014 Priority: Not Prioritized GERD (gastroesophageal reflux disease) ??? Tonsillitis 06/26/2014 Priority: Not Prioritized Tonsillitis ??? Obstructive sleep apnea syndrome 05/14/2014 Priority: Not Prioritized Overview: Nasal (CPAP) qhs all night Well controlled YEMI ??? Vitamin D deficiency 05/14/2014 Priority: Not Prioritized Vitamin D deficiency ??? Anemia 09/23/2013 Priority: Not Prioritized Overview: Post hemo ANEMIA NOS ??? Generalized anxiety disorder 09/23/2013 Priority: Not Prioritized ANXIETY STATE NOS ??? Benign hypertension 09/23/2013 Priority: Not Prioritized BENIGN HYPERTENSION ??? Major depressive disorder, recurrent episode, severe ([facility]) 09/23/2013 Priority: Not Prioritized DEPRESSIVE DISORDER NEC ??? Impaired fasting glucose 09/23/2013 Priority: Not Prioritized IMPAIRED FASTING GLUCOSE ??? 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/23/2013 Priority: Not Prioritized MIXED HYPERLIPIDEMIA ??? Depressive disorder 09/23/2013 Priority: Not Prioritized DEPRESSIVE DISORDER NEC ??? Iron deficiency anemia 02/18/2012 Priority: Not Prioritized Iron deficiency anemia TYPE OR VARITYPE KEYBOARD OPERATOR documented in this encounter Plan of Treatment Upcoming Encounters Date Type Department Care Team (Late st Contact Info) Description 06/07/2024 1:00 PM TELETYPE OR VARITYPE KEYBOARD OPERATOR Office Visit [facility] - Ophthalmology [address] [place] [phone] Chrystal Roa MD [address] [place] [address] [place] [phone] 06/23/2024 2:00 PM TELETYPE OR VARITYPE KEYBOARD OPERATOR Office Visit [facility] - Ophthalmology [address] [place] [phone] Fidel Anderson MD [address] [place] [phone] Pending Results Name Type Priority Associated Diagnoses Date /Time ANTERIOR IMMERSION UNI/BI Ophthalmology Routine Anophthalmos 06/22/2023 2:30 PM TELETYPE OR VARITYPE KEYBOARD OPERATOR BOURGEOIS AUTO VISUAL FIELD EXTENDED Ophthalmology Routine Anophthalmos 06/22/2023 2:31 PM TELETYPE OR VARITYPE KEYBOARD OPERATOR Scheduled Orders Name Type Priority Associated Diagnoses Orde r Schedule ANTERIOR IMMERSION UNI/BI Ophthalmology Routine Anophthalmos Expected: 06/22/2023, Expires: 08/20/2024 BOURGEOIS AUTO VISUAL FIELD EXTENDED Ophthalmology Routine Anophthalmos Expected: 06/22/2023, Expires: 08/20/2024 documented as of this encounter Visit Diagnoses Diagnosis Secondary glaucoma, mild stage, right- Primary History of glaucoma tube shunt procedure Orbital cyst, right Anophthalmos documented in this encounter Care Teams Derrick Boat Operator Relationship Specialty Start Date End Date Martha Lawrence MD PCP - General 03/21/20 Kathy Corley, SOCIAL SERVICES SPECIALIST-MATH INTERVENTIONIST [address] [place] [phone] Nurse Practitioner Ophthalmology 12/14/22 Gibran David [address] [facility] [address] [place] [address] 12/14/22 documented as of this encounter
--- OUTSIDE RECORDS SUMMARY | 2024-05-13 22:19 | XMS_ITS | Encounter Summary ---
Author Organization [facility] Address [address] [place] [address] Care Team Providers Care Cutter Woodwind Reeds Name Role Phone Martha Lawrence MD Primary Care Provider [phone] Kathy Corley Unavailable Gibran David Unavailable Encounter Details Date Type Department Care Team (Latest Contact Info) Description 01/19/2023 Travel Social History Tobacco Use Types Packs/Day [...] st Contact Info) Description 06/07/2024 1:00 PM TOURIST INFORMATION OFFICER Office Visit [facility] - Ophthalmology [address] [place] [phone] Chrystal Roa MD [address] [place] [address] [place] [phone] 06/23/2024 2:00 PM TOURIST INFORMATION OFFICER Office Visit [facility] - Ophthalmology [address] [place] [address] [phone] Fidel Moss MD [address] [place] [address] [phone] documented as of this encounter Visit Diagnoses Not on filedocumented in this encounter Care Teams Cutter Woodwind Reeds Relationship Specialty Start Date End Date Martha Lawrence MD PCP - General 03/21/20 Kathy Corley, SPREADER OPERATOR [employer] [address] [place] [address] [place] [phone] Nurse Practitioner Ophthalmology 12/14/22 Gibran David [address] [address] 12/14/22 documented as of this encounter
--- OUTSIDE RECORDS SUMMARY | 2024-05-13 22:19 | XMS_ITS | Patient Health Summary ---
Author Organization [facility] Address [address] [place] [address] Care Team Providers Care Home Supervisor Name Role Phone Martha Lawrence MD Primary Care Provider [phone] Kathy Corley APRN-JUN Unavailable [phone] Gibran David Unavailable Note from [facility],non-owned Affiliates and Associated Physician Practices is amultiple site organization consisting of ambulatory clinics and hospital sitesin [place], [place], [place] and [place]. This disclosure is being madepursuant to the Care Everywhere program and may not contain all information available regarding this patient. Last updated 18.[facility] Allergies * Oxycodone-Acetaminophen(Diarrhea,Nausea and/or Vomiting,Vomiting) -Low Criticality * Penicillins(Urticaria,Rash,Skin Reactions) -Medium Criticality * Sulfa Drugs(Urticaria,Rash,Itching) -Medium Criticality * Sulfacetamide(Urticaria,Rash,Eye Discomfort,Eye Itching) -Medium Criticality * Povidone-Iodine(Eye Redness,Eye Itching) -Medium Criticality,Inactive * Sulfasalazine(Urticaria,Rash) -Medium Criticality,Inactive Medications * Be aware that medications may not be up to date on this document. Alwaysverify current medications with the patient. * albuterol HFA (PROVENTIL;VENTOLIN;PROAIR) 108 (90 Base) MCG/ACT inhaler (Started 09/09/2020) Inhale 2 (two) puffs by mouth every 6 hours as needed for Shortness of Breath or Wheezing Reasons: Asthma 1 refill by 09/09/2021 * latanoprost (XALATAN) 0.005 % ophthalmic solution(Started 06/26/2021) Instill 1 (one) drop into right eye at bedtime 4 refills by 06/26/2022 * omeprazole (PriLOSEC) 20 MG capsule Take 1 (one) capsule by mouth 2 times daily, before breakfast and supper * montelukast (Singulair) 10 MG tablet(Started 04/03/2022) Take 1 (one) tablet by mouth at bedtime Reasons: Asthma 1 refill by 04/03/2023 * lamoTRIgine (LaMICtal) 100 MG tablet(Started 04/03/2022) Take 1 (one) tablet by mouth at bedtime Reasons: Mood Disorder 1 refill by 04/03/2023 * atomoxetine (Strattera) 60 MG capsule(Started 04/04/2022) Take 1 (one) capsule by mouth once daily Reasons: Attention Deficit Hyperactivity Disorder 1 refill by 04/03/2023 * nebivolol (Bystolic) 10 MG tablet Take 1 (one) tablet by mouth once daily * buPROPion XL 24hr (Wellbutrin-XL) 150 MG tablet Take 1 (one) tablet by mouth every morning * clonazePAM (KlonoPIN) 0.5 MG tablet(Started 05/20/2023) Take 1 (one) tablet by mouth once daily as needed * Linzess 72 MCG capsule(Started 06/03/2023) Take 1 (one) capsule by mouth once daily * Myfembree 40-1-0.5 MG TABS(Started 05/26/2023) Take 1 tablet by mouth once daily * tirzepatide (Mounjaro) 5 MG/0.5ML injection(Started 04/06/2023) Inject 5 (five) mg subcutaneously every 7 days 5 refills remaining * Vraylar 3 MG capsule(Started 05/20/2023) Take 1 (one) capsule by mouth once daily * escitalopram (Lexapro) 20 MG tablet Take 1 (one) tablet by mouth every morning * Creon 6000-74142 units capsule(Started 04/05/2023) 2 CAP ORALLY THREE TIMES A DAY FOR 1 MONTH DO NOT EXCEED 10,000 UNIT/KG LIPASE PER 24 HRS * spironolactone (Aldactone) 100 MG tablet Take 1 (one) tablet by mouth every morning * kclxmtjv-utsyyqnuk-fwlcvfeu (Maxitrol) ophthalmic ointment(Started 06/22/2023) Instill into left eye 2 times daily as needed 3 refills by 06/21/2024 Active Problems Problem Noted Date Diagnosed Date [...] disorder) 09/06/2020 Otorrhea of left ear 08/13/2020 Secondary glaucoma, mild stage, right 06/21/2020 Acute posthemorrhagic anemia 03/26/2020 Chronic laryngitis 03/26/2020 Chronic rhinitis 03/26/2020 Disease of larynx 03/26/2020 Disease of tonsils and adenoids 03/26/2020 Hypertrophy of nasal turbinates 03/26/2020 Hypertrophy of tonsils with hypertrophy of adeno ids 03/26/2020 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 Upper airway resistance syndrome 03/26/2020 History of eye prosthesis 02/17/2020 History of intraocular lens implant 02/17/2020 Dysfunction of both eustachian tubes 01/18/2020 Acute recurrent maxillary sinusitis 05/26/2019 ETD (Eustachian tube dysfunction), left 05/26/19 20 Hearing loss of left ear 05/26/2019 Left ear pain 05/26/2019 Morbid obesity with body mass index of 40.0-49.9 03/16/2019 Polycystic ovaries 07/01/2018 Abnormal ultrasound of breast 04/29/2018 Discharge from nipple 04/29/2018 Lump of left breast 04/29/2018 Lump of right breast 04/29/2018 Mastodynia 04/29/2018 Trochanteric bursitis, right hip 10/26/2017 Gastroesophageal reflux disease 06/26/2014 Tonsillitis 06/26/2014 Obstructive sleep apnea syndrome 05/14/2014 Vitamin D deficiency 05/14/2014 Anemia 09/23/2013 Generalized anxiety disorder 09/23/2013 Benign hypertension 09/23/2013 Major depressive disorder, recurrent episode, se ellis 09/23/2013 Impaired fasting glucose 09/23/2013 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/23/2013 Depressive disorder 09/23/2013 Iron deficiency anemia 02/18/2012 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 (AFLURIA, FLUZONE TRIVALENT; 6MO+) (IIV3)(Given 03/11/2011) * INFLUENZA(Given 03/22/2020) * INFLUENZA VACCINE, QUADR. (AFLURIA, FLUZONE QUADRIVALENT; 6MO+) (IIV4)(Given 05/12/2013) * INFLUENZA VACCINE, QUADR. (FLUZONE; FLULAVAL; FLUARIX; AFLURIA QUADRIVALENT; 6MO+), 0.5 ML (IIV4)(Given 04/01/2022) * INFLUENZA VACCINE, RECOM-KISER, TRIV. (FLUBLOCK TRIVALENT; 18Y+) (RIV3)(Given 05/14/2014) * TDAP (7yrs+)(Given 07/24/2008) Social History Tobacco Use Types Packs/Day Years [...] 115.7 kg (255 lb) 04/21/2022 12:37 PM SCOURING TRAIN OPERATOR CHIEF Height 165.1 cm (5' 5 ) 04/21/2022 12:37 PM SCOURING TRAIN OPERATOR CHIEF Body Mass Index 42.43 04/21/2022 12:37 PM SCOURING TRAIN OPERATOR CHIEF Medical Devices Implanted Type Area Manager Desktop Device Identifier Shelf Expiration Date Model / Serial / Lot Drain Glcm Thk.9mm Blnt Tpr Ahmed Flxb Implanted:Qty: 1 on 07/03/2020 by Franco Martinez MD at [facility] 04/30/2022 FP7 / / [id number] Graft Tissue Ttpl Ioptch Sclr .8x.5cm - [id number] Implanted:Qty: 1 on 07/03/2020 by Franco Martinez MD at [facility] [employer] 03/09/2025 [id number] / / [id number] Procedures * RETINAL ANALYSIS OCT(Performed 06/07/2023) Performed for History of vitrectomy * OPTIC NERVE ANALYSIS OCT(Performed 01/19/2023) Performed for Secondary glaucoma, mild stage, right * OPH OCT TEST SLU(Performed 08/24/2022) Performed for History of vitrectomy * XR CHEST 1VW PORTABLE(Performed 04/01/2022) Performed for Preprocedural examination * EKG 12-LEAD(Performed 04/01/2022) Performed for Preprocedural examination * URINALYSIS REFLEX TO MICROSCOPIC NO CULTURE(Performed 04/01/2022) * URINE DRUG SCREEN IMMUNOASSAY(Performed 04/01/2022) * HCG URINE QUALITATIVE(Performed 04/01/2022) * TSH REFLEX FREE T4(Performed 04/01/2022) * SYPHILIS ANTIBODY CASCADING REFLEX(Performed 04/01/2022) * LIPID PROFILE(Performed 04/01/2022) * HEMOGLOBIN A1C(Performed 04/01/2022) * COMPREHENSIVE METABOLIC PANEL(Performed 04/01/2022) * CBC W AUTO DIFFERENTIAL(Performed 04/01/2022) * OPH VISUAL FIELD TEST SLU(Performed 09/11/2021) Performed for Congenital glaucoma of right eye * OPH COLOR FUNDUS PHOTOGRAPHY SLU(Performed 06/26/2021) Performed for Congenital glaucoma of right eye * OPH OCT TEST SLU(Performed 06/26/2021) Performed for Congenital glaucoma of right eye * OPH OCT TEST SLU(Performed 05/23/2021) Performed for Status post vitrectomy surgery for vitreous floaters, right eye 04/18/2020 * NE WATER SHUNT-EXTRAOCUL RESERV(Performed 09/23/2020) Performed for Secondary glaucoma, right, mild stage * LARYNGEAL MASK AIRWAY(Performed 09/23/2020) * GLUCOSE - POINT OF CARE(Performed 09/23/2020) * HCG URINE QUALITATIVE - POCT (IP) INTERFACED(Performed 09/23/2020) * GLUCOSE - POINT OF CARE(Performed 09/06/2020) * LAMOTRIGINE LEVEL(Performed 09/06/2020) * TSH REFLEX FREE T4(Performed 09/06/2020) * SYPHILIS ANTIBODY CASCADING REFLEX(Performed 09/06/2020) * LIPID PROFILE(Performed 09/06/2020) * COMPREHENSIVE METABOLIC PANEL(Performed 09/06/2020) * CBC W AUTO DIFFERENTIAL(Performed 09/06/2020) * HEMOGLOBIN A1C(Performed 09/06/2020) * SARS-COV-2 (COVID-19) RAPID(Performed 09/05/2020) * OPH OCT TEST SLU(Performed 08/26/2020) Performed for Status post vitrectomy surgery for vitreous floaters, right eye 04/18/2020 * INSERTION AQUEOUS (GLAUCOMA) SHUNT TO EXTRAOCULAR RESERVOIR(Performed 07/03/2020) Performed for Secondary glaucoma, unspecified glaucoma stage, unspecified laterality * HCG URINE QUALITATIVE - POCT (IP) INTERFACED(Performed 07/03/2020) * HCG URINE QUAL POCT NOTIFICATION(Performed 07/03/2020) Performed for Pre-op testing * OPH VISUAL FIELD TEST SLU(Performed 06/21/2020) Performed for Glaucoma associated with ocular disorder, indeterminate stage, right * OPH OCT TEST SLU(Performed 05/27/2020) Performed for Status post vitreoretinal surgery, right eye * VITRECTOMY MECHANICAL PARS PLANA(Performed 04/18/2020) Performed for Symptomatic posterior vitreous detachment of right eye * LARYNGEAL MASK AIRWAY(Performed 04/18/2020) * HCG URINE QUAL POCT NOTIFICATION(Performed 04/18/2020) Performed for Pre-op testing * HCG URINE QUALITATIVE - POCT (IP) INTERFACED(Performed 04/18/2020) * OPH OCT TEST SLU(Performed 04/10/2020) Performed for Symptomatic posterior vitreous detachment of right eye * OPH OCT TEST SLU(Performed 03/26/2020) Performed for Glaucoma, unspecified glaucoma type, unspecified laterality * STREP A SCREEN - POINT OF CARE (AMB) STL(Performed 06/25/2017) Performed for Acute allergic rhinitis, unspecified seasonality, unspecified trigger Results * RETINAL ANALYSIS OCT (06/07/2023 12:59 PM SCOURING TRAIN OPERATOR CHIEF) Anatomical Region Laterality Modality Head External-Camera Photography Narrative 06/09/2023 1:29 PM SCOURING TRAIN OPERATOR CHIEF Images from the original result were not included. OCT OD: Normal retina crosssection with preservation of fovea, clivus, and cellular lamina OS: Prosthesis OD : Today's picture bottom one Chrystal Roa MD OPHTHALMOLOGY SCHED ORD W PACS * OPTIC NERVE ANALYSIS OCT (01/19/2023 12:01 PM CDT) Anatomical Region Laterality Modality Head External-Camera Photography Narrative 01/19/2023 12:40 PM CDT Images from the original result were not included. Thin RNFL OD, stable on GPA since 2019. Fidel Moss MD OPHTHALMOLOGY SCHED ORD W PACS * OCT (08/24/2022 10:40 AM CDT) Anatomical Region Laterality Modality Other 08/24/2022 10:4 0 AM CDT Chrystal Roa MD OPHTHALMOLOGY SERVIC ES ORDERABLES * XR CHEST 1VW PORTABLE (04/01/2022 1:27 PM SCOURING TRAIN OPERATOR CHIEF) Anatomical Region Laterality Modality Chest Radiographic Kitty ging 04/01/2022 1:28 PM SCOURING TRAIN OPERATOR CHIEF Impressions 04/01/2022 1:29 PM SCOURING TRAIN OPERATOR CHIEF IMPRESSION: No acute cardiopulmonary abnormalities. > Interpreting Provider: Sudhir Elmore MD on 04/01/2022 1:29 PM Narrative 04/01/2022 1:29 PM SCOURING TRAIN OPERATOR CHIEF PROCEDURE: ??XR CHEST 1VW PORTABLE, DATE/TIME OF EXAM: ??04/01/2022 1:27 PM, LOCATION ??[facility] INDICATION: Z01.818: Encounter for other preprocedural examination. Cough. ADDITIONAL CLINICAL INFORMATION: Ordering Provider Reason For Exam: Technologist Note: Additional: COMPARISON: None. FINDINGS: No consolidation, pleural effusion or pneumothorax is present. The heart size is normal. Procedure Note Sudhir Elmore MD - 04/01/2022 PROCEDURE: XR CHEST 1VW PORTABLE, DATE/TIME OF EXAM: 04/01/2022 1:27PM, LOCATION [facility] INDICATION: Z01.818: Encounter for other preprocedural examination. Cough. ADDITIONAL CLINICAL INFORMATION: Ordering Provider Reason For Exam: Technologist Note: Additional: COMPARISON: None. FINDINGS: No consolidation, pleural effusion or pneumothorax is present. The heart size is normal. IMPRESSION: No acute cardiopulmonary abnormalities. > Interpreting Provider: Sudhir Elmore MD on 04/01/2022 1:29 PM Shade Reddy MD DIAGNOSTIC IMAGING O RDERABLES * EKG 12-LEAD (04/01/2022 12:47 PM SCOURING TRAIN OPERATOR CHIEF) Ventricular Rate 67 BPM [facility] Atrial Rate 67 BPM [facility] P-R Interval 168 ms [facility] QRS Duration ms 82 ms [facility] Q-T Interval ms 406 ms [facility] QTC Calculation (Bezet) 429 ms [facility] Calculated P [place] 30 degrees [facility] Calculated R [place] 11 degrees [facility] Calculated T [place] 31 degrees [facility] Interpretation EKG Normal sinus rhythm Normal ECG No previous ECGs available Confirmed by EDA SALEH MD ([id number]) on 04/01/2022 8:22:15 PM [facility] 04/01/2022 12:4 7 PM SCOURING TRAIN OPERATOR CHIEF 04/01/2022 8:22 PM SCOURING TRAIN OPERATOR CHIEF Shade Reddy MD ECG ORDERABLES [facility] MUSE * URINALYSIS REFLEX TO MICROSCOPIC NO CULTURE (04/01/2022 8:52 AM SCOURING TRAIN OPERATOR CHIEF) Color UA Yellow Straw, Yellow 04/01/2022 9:11 AM SCOURING TRAIN OPERATOR CHIEF [facility] Clarity UA Clear Clear 04/01/2022 9:11 AM SCOURING TRAIN OPERATOR CHIEF [facility] Glucose UA Negative Negative 04/01/2022 9:11 AM SCOURING TRAIN OPERATOR CHIEF [facility] Bilirubin UA Negative Negative 04/01/2022 9:11 AM SCOURING TRAIN OPERATOR CHIEF [facility] Ketone UA Negative Negative 04/01/2022 9:11 AM SCOURING TRAIN OPERATOR CHIEF [facility] Specific [place] UA 1.012 1.005 - 1.030 04/01/2022 9:11 AM SCOURING TRAIN OPERATOR CHIEF [facility] Blood UA Negative Negative 04/01/2022 9:11 AM SCOURING TRAIN OPERATOR CHIEF [facility] pH UA 6.0 5.0 - 8.0 pH 04/01/2022 9:11 AM SCOURING TRAIN OPERATOR CHIEF [facility] Protein UA Negative Negative 04/01/2022 9:11 AM SCOURING TRAIN OPERATOR CHIEF [facility] Urobilinogen UA Negative Negative mg/dL 04/01/2022 9:11 AM SCOURING TRAIN OPERATOR CHIEF [facility] Nitrite UA Negative Negative 04/01/2022 9:11 AM SCOURING TRAIN OPERATOR CHIEF [facility] Leukocyte UA Negative Negative 04/01/2022 9:11 AM SCOURING TRAIN OPERATOR CHIEF [facility] Urine Microscopy Urine microscopy not indicated 04/01/2022 9:11 AM SCOURING TRAIN OPERATOR CHIEF [facility] Urine URINE SPECIMEN OBTAINED BY CLEAN CATCH PROCEDURE / Unknown Collection / Unknown 04/01/2022 8:52 AM SCOURING TRAIN OPERATOR CHIEF 04/01/2022 8:58 AM SCOURING TRAIN OPERATOR CHIEF Narrative [facility] - 04/01/2022 9:11 AM SCOURING TRAIN OPERATOR CHIEF Shade Reddy MD LAB - URINALYSIS ORD ERABLES Performing Organization Address [facility]/ZIP Co de Phone Number [facility] [address] [place] [address] * HCG URINE QUALITATIVE (04/01/2022 8:52 AM SCOURING TRAIN OPERATOR CHIEF) hCG Qualitative Urine Negative Negative 04/01/2022 9:06 AM [facility] Urine URINE / Unknown Collection / Unknown 04/01/2022 8:52 AM SCOURING TRAIN OPERATOR CHIEF 04/01/2022 8:58 AM [facility] Shade Reddy MD LAB - URINALYSIS ORD ERABLES [facility] [address] [place] [address] * (ABNORMAL) URINE DRUG SCREEN IMMUNOASSAY (04/01/2022 8:52 AM [facility]) [facility] Amphetamines Screen Urine Not detected Not detected 04/01/2022 9:16 AM [facility] Barbiturates Screen Urine Not detected Not detected 04/01/2022 9:16 AM [facility] Benzodiazepines Screen Urine Not detected Not detected 04/01/2022 9:16 AM [facility] Cannabinoids Screen Urine Detected(A) Not detected 04/01/2022 9:16 AM [facility] Cocaine Screen Urine Not detected Not detected 04/01/2022 9:16 AM [facility] Fentanyl Urine Detected(A) Not detected 04/01/2022 9:16 AM [facility] Methadone Screen Urine Not detected Not detected 04/01/2022 9:16 AM [facility] Opiate Screen Urine Not detected Not detected 04/01/2022 9:16 AM [facility] Phencyclidine Screen Urine Not detected Not detected 04/01/2022 9:16 AM [facility] Urine URINE / Unknown Collection / Unknown 04/01/2022 8:52 AM SCOURING TRAIN OPERATOR CHIEF 04/01/2022 8:58 AM [facility] Narrative [facility] - 04/01/2022 9:16 AM [facility] This drug screen is designed for MEDICAL purposes only. It is not to be used for legal purposes, including but not limited to worker's comp, police investigations, occupational issues, child custody, etc. ??Any positive result is only presumptive and must be confirmed with a separate confirmatory test ordered by the physician. Drug Screening Test Cutoff Values: AMPHETAMINES ?1000 ng/mL BARBITURATES ? 200 ng/mL BENZODIAZEPINES ?200 ng/mL CANNABINOIDS(THC) ?? 50 ng/mL COCAINE ?300 ng/mL FENTANYL ? 1 ng/mL METHADONE ?300 ng/mL OPIATES ?300 ng/mL PHENCYCLIDINE(PCP) ??25 ng/mL Shade Reddy MD LAB - URINE CHEMISTR Y ORDERABLES Performing Organization Address [facility] de Phone Number [facility] [id number] [place] [id number] * SYPHILIS ANTIBODY CASCADING REFLEX (04/01/2022 6:23 AM SCOURING TRAIN OPERATOR CHIEF) Only the most recent of2 resultswithin the time period is included. Treponema pallidum Antibody Non Reactive Non Reactive 04/01/2022 12:08 PM SCOURING TRAIN OPERATOR CHIEF [facility] Comment: No Laboratory evidence of syphilis infection. ?? Note: ??Circulating antibodies may be low or undetectable in early infection. ??If recent exposure is suspected, re-draw sample in 2-4 weeks and repeat testing. Blood BLOOD SPECIMEN / Unknown Venipuncture / Unknown 04/01/2022 6:23 AM SCOURING TRAIN OPERATOR CHIEF 04/01/2022 6:29 AM SCOURING TRAIN OPERATOR CHIEF Shade Reddy MD LAB - SEROLOGY ORDER ELBERT Performing Organization Address [facility] de Phone Number [facility] [id number] [place] [id number] * TSH REFLEX FREE T4 (04/01/2022 6:23 AM SCOURING TRAIN OPERATOR CHIEF) Only the most recent of2 resultswithin the time period is included. TSH 1.258 0.350 - 4.940 uIU/mL 04/01/2022 7:08 AM SCOURING TRAIN OPERATOR CHIEF [facility] Blood BLOOD SPECIMEN / Unknown Venipuncture / Unknown 04/01/2022 6:23 AM SCOURING TRAIN OPERATOR CHIEF 04/01/2022 6:29 AM SCOURING TRAIN OPERATOR CHIEF Shade Reddy MD LAB - CHEMISTRY JENNIFER [place] Performing Organization Address [facility] Co de Phone Number [facility] [address] [place] [address] * HEMOGLOBIN A1C (04/01/2022 6:23 AM SCOURING TRAIN OPERATOR CHIEF) Only the most recent of2 resultswithin the time period is included. Hemoglobin A1c 5.1 <5.7 % 04/01/2022 7:53 AM SCOURING TRAIN OPERATOR CHIEF [facility] Estimated Average Glucose 100 mg/dL 04/01/2022 7:53 AM SCOURING TRAIN OPERATOR CHIEF [facility] Blood BLOOD SPECIMEN / Unknown Venipuncture / Unknown 04/01/2022 6:23 AM SCOURING TRAIN OPERATOR CHIEF 04/01/2022 6:29 AM SCOURING TRAIN OPERATOR CHIEF Narrative [facility] - 04/01/2022 7:53 AM SCOURING TRAIN OPERATOR CHIEF HbA1c Interpretation: Normal: < 5.7% Pre-diabetes: 5.7-6.4% Diabetes: Equal to or greater than 6.5% Test results diagnostic of diabetes should be repeated for confirmation. Treatment target values recommended by ADA and other clinical organizations should be used to evaluate metabolic control in patients. This test should not replace glucose testing for patients with Type 1 diabetes, pediatric patients, or women. ??Falsely low HbA1c results may be observed in patients with clinical conditions that shorten erythrocyte life span or decrease mean erythrocyte age such as the presence of unstable hemoglobin variants, elevated hemoglobin F level or other causes of hemolytic anemia. ??HbA1c may not accurately reflect glycemic control when clinical conditions that affect erythrocyte survival are present. ??Severe Iron deficiency anemia may yield falsely high results. ??Hemoglobin A1c assay should not be used to diagnose or monitor diabetes in patients with malignancy, recent blood transfusion, chronic kidney or liver disease. ?? This method may yield falsely low results when hemoglobin (HbF) exceeds 5% in the specimen. The [employer] assay for the measurement of HbA1c is a National Glycohemoglobin Standardization Program (NGSP) certified method. Shade Reddy MD LAB - CHEMISTRY [facility]ENN[facility]ER [facility] Performing Organization Address [facility] Co de Phone Number [facility] [address] [place] [address] * (ABNORMAL) CBC W AUTO DIFFERENTIAL (04/01/2022 6:23 AM SCOURING TRAIN OPERATOR CHIEF) Only the most recent of2 resultswithin the time period is included. WBC 7.0 4.4 - 10.7 x10E9/L 04/01/2022 6:37 AM [facility] WBC Corrected 04/01/2022 6:37 AM [facility] RBC 5.39(H) 3.80 - 5.20 x10E12/L 04/01/2022 6:37 AM [facility] Hemoglobin 13.0 12.0 - 15.6 gm/dL 04/01/2022 6:37 AM [facility] Hematocrit 41.0 35.9 - 45.5 % 04/01/2022 6:37 AM [facility] MCV 76.1(L) 80.7 - 98.3 fl 04/01/2022 6:37 AM [facility] MCH 24.1(L) 26.7 - 34.0 pg 04/01/2022 6:37 AM [facility] MCHC 31.7 30.8 - 35.9 gm/dL 04/01/2022 6:37 AM [facility] Platelet Count 379 153 - 416 x10E9/L 04/01/2022 6:37 AM [facility] RDW-CV 14.7 12.1 - 14.9 % 04/01/2022 6:37 AM [facility] MPV 9.9 9.4 - 12.9 fl 04/01/2022 6:37 AM [facility] Neutrophils % 49.8 44.0 - 73.0 % 04/01/2022 6:37 AM [facility] Lymphocytes % 39.4 20.0 - 43.0 % 04/01/2022 6:37 AM [facility] Monocytes % 8.1 5.0 - 13.0 % 04/01/2022 6:37 AM [facility] Eosinophils % 1.4 0.0 - 6.0 % 04/01/2022 6:37 AM [facility] Basophils % 0.9 0.0 - 2.0 % 04/01/2022 6:37 AM [facility] Immature Granulocytes 0.4 0 - 1 % 04/01/2022 6:37 AM [facility] Neutrophil Absolute 3.46 2.01 - 7.14 x10E9/L 04/01/2022 6:37 AM [facility] Lymphocytes Absolute 2.74 1.07 - 3.94 x10E9/L 04/01/2022 6:37 AM [facility] Monocytes Absolute 0.56 0.26 - 1.07 x10E9/L 04/01/2022 6:37 AM [facility] Eosinophils Absolute 0.10 0 - 0.47 x10E9/L 04/01/2022 6:37 AM [facility] Basophils Absolute 0.06 0 - 0.08 x10E9/L 04/01/2022 6:37 AM [facility] Immature Granulocytes Absolute 0.03 0.00 - 0.06 x10E9/L 04/01/2022 6:37 AM [facility] nRBC Auto 0 /100 WBC 04/01/2022 6:37 AM [facility] Blood BLOOD SPECIMEN / Unknown Venipuncture / Unknown 04/01/2022 6:23 AM SCOURING TRAIN OPERATOR CHIEF 04/01/2022 6:29 AM [facility] Shade Reddy MD LAB - HEMATOLOGY ORD ERABLES [facility] [address] [place] [address] * (ABNORMAL) COMPREHENSIVE METABOLIC PANEL (04/01/2022 6:23 AM [facility]) Only the most recent of2 resultswithin the time period is included. Glucose 87 70 - 105 mg/dL 04/01/2022 6:48 AM [facility] [facility] Sodium 139 136 - 145 mmol/L 04/01/2022 6:48 AM [facility] Potassium 4.4 3.5 - 5.1 mmol/L 04/01/2022 6:48 AM [facility] Chloride 105 98 - 107 mmol/L 04/01/2022 6:48 AM [facility] CO2 29 23 - 31 mmol/L 04/01/2022 6:48 AM [facility] Calcium 9.2 8.4 - 10.4 mg/dL 04/01/2022 6:48 AM [facility] Anion Gap 5(L) 8 - 18 mmol/L 04/01/2022 6:48 AM [facility] BUN 6(L) 7 - 18.7 mg/dL 04/01/2022 6:48 AM [facility] Creatinine 1.17(H) 0.57 - 1.11 mg/dL 04/01/2022 6:48 AM [facility] Alkaline Phosphatase 84 40 - 150 U/L 04/01/2022 6:48 AM [facility] ALT 14 0 - 61 U/L 04/01/2022 6:48 AM [facility] AST 17 5 - 34 U/L 04/01/2022 6:48 AM [facility] Protein Total 6.5 6.4 - 8.3 gm/dL 04/01/2022 6:48 AM [facility] Albumin 3.8 3.5 - 5.2 gm/dL 04/01/2022 6:48 AM [facility] Bilirubin Total 1.0 0.2 - 1.2 mg/dL 04/01/2022 6:48 AM [facility] eGFR by CKD-EPI 60(L) >=90 mL/min/1.7 3 m2 04/01/2022 6:48 AM [facility] Blood BLOOD SPECIMEN / Unknown Venipuncture / Unknown 04/01/2022 6:23 AM SCOURING TRAIN OPERATOR CHIEF 04/01/2022 6:29 AM [facility] Shade Reddy MD LAB - CHEMISTRY ORDE [facility] Organization Address City/State/[facility] Co de Phone Number [facility] [address] [place] [address] * (ABNORMAL) LIPID PROFILE (04/01/2022 6:23 AM [facility]) Only the most recent of2 resultswithin the time period is included. Cholesterol 154 <200 mg/dL 04/01/2022 6:48 AM [facility] Triglycerides 133 <150 mg/dL 04/01/2022 6:48 AM [facility] HDL Cholesterol 35(L) >40 mg/dL 2 6:48 AM [facility] LDL Calculated 92 <130 mg/dL 04/01/2022 6:48 AM [facility] VLDL Calculated 27 <=30 mg/dL 6:48 AM SCOURING TRAIN OPERATOR CHIEF [facility] Chol HDL Ratio 4.4 <4.5 04/01/2022 6:48 AM SCOURING TRAIN OPERATOR CHIEF [facility] LDL/HDL Ratio 2.6 <5.0 04/01/2022 6:48 AM SCOURING TRAIN OPERATOR CHIEF [facility] Blood BLOOD SPECIMEN / Unknown Venipuncture / Unknown 04/01/2022 6:23 AM SCOURING TRAIN OPERATOR CHIEF 04/01/2022 6:29 AM SCOURING TRAIN OPERATOR CHIEF Shade Reddy MD LAB - CHEMISTRY [facility]ENN[facility] [address] [place] [address] * Visual Bay (09/11/2021 9:03 AM CDT) Anatomical Region Laterality Modality Other 09/11/2021 9:03 AM CDT Kaushik Bowser MD OPHTHALMOLOGY SE RVICES ORDERABLES * Color fundus photography (06/26/2021 8:11 AM SCOURING TRAIN OPERATOR CHIEF) Anatomical Region Laterality Modality Other 06/26/2021 8:11 AM SCOURING TRAIN OPERATOR CHIEF Kaushik Bowser MD OPHTHALMOLOGY SE RVICES ORDERABLES * OCT (06/26/2021 8:08 AM SCOURING TRAIN OPERATOR CHIEF) Anatomical Region Laterality Modality Other 06/26/2021 8:08 AM SCOURING TRAIN OPERATOR CHIEF Kaushik Bowser MD OPHTHALMOLOGY SE RVICES ORDERABLES * OCT (05/23/2021 9:05 AM SCOURING TRAIN OPERATOR CHIEF) Anatomical Region Laterality Modality Other 05/23/2021 9:05 AM SCOURING TRAIN OPERATOR CHIEF Chrystal Roa MD OPHTHALMOLOGY SERVIC ES ORDERABLES * LARYNGEAL MASK AIRWAY (09/23/2020 7:49 AM CDT) Narrative Gregory Trejo APRN-PHYSICIAN PRACTICE ADMINISTRATOR - 09/23/2020 7:49 AM CDT Gregory Trejo APRN-PHYSICIAN PRACTICE ADMINISTRATOR ? 09/23/2020 ??8:29 AM LMA Placement Procedure/LDA Note: LMA Insertion Date/Time: ??09/23/2020 7:43 AM Procedure: LMA. Pretreatment: 100% O2 Induction: standard IV Patient position: sniffing. Mask Ventilation: easy Type: ??LMA Size: ??3 Number of Attempts: 1. Cuff volume (mL): ??5 Placement verified by: direct visualization, chest auscultation and CO2 monitor Dentition unchanged? ??Yes Procedure Start Time: 09/23/2020 7:43 AM. Procedure End Time: 09/23/2020 8:29 AM. Procedure Total Time: 46 ??minutes. Staff Section ?? Anesthesia Provider: Gregory Trejo APRN-PHYSICIAN PRACTICE ADMINISTRATOR, Performed the procedure Neyda Beavers MD GENERAL ANESTHESIA ORDERABLES * GLUCOSE - POINT OF CARE (09/23/2020 7:21 AM CDT) Only the most recent of2 resultswithin the time period is included. Glucose WB/POC 89 70 - 115 mg/dL 09/23/2020 9:21 AM CDT [facility] [employer] Specimen Type Venous 09/23/2020 9:21 AM CDT [facility] Blood BLOOD SPECIMEN / Unknown 09/23/2020 7:21 AM CDT 09/23/2020 9:21 AM CDT Fidel Moss MD LAB - POINT OF CARE ORDERABLES [facility] [address] [place] [phone], [facility] [phone] * HCG URINE QUALITATIVE - POCT (IP) INTERFACED (09/23/2020 6:43 AM CDT) Only the most recent of3 resultswithin the time period is included. HCG Qual Urine Negative Negative 09/23/2020 6:49 AM CDT [facility] Urine URINE / Unknown 09/23/2020 6 :43 AM CDT 09/23/2020 6:49 AM CDT Fidel Moss MD LAB - POINT OF CARE ORDERABLES [facility] [address] [place] [address], [facility] [phone] * LAMOTRIGINE LEVEL (09/06/2020 12:31 AM CDT) Pathologist [facility] Lamotrigine 3.0 2.0 - 20.0 ug/mL 09/09/2020 6:07 PM CDT [facility] ([facility]) Comment:Detection Limit = 1. 0 Blood BLOOD SPECIMEN / Unknown Venipuncture / Unknown 09/06/2020 12:31 AM CDT 09/06/2020 12:54 AM CDT Narrative [facility] ([facility]) - 09/09/2020 6:07 PM CDT Performed at: ??01 - [address] ??[id number] Shower Screen Installer: Shena Dalton MD, Phone: ??[phone] Estefany Valle APRN-ASSISTANT HVAC MECHANIC LAB - THERAPEUTI C DRUG MONITORING ORDERABLES Performing Organization Address City/[facility]/ZIP Co de Phone Number [facility] ([facility]) [address] [place] [address] * SARS-COV-2 (COVID-19) RAPID (09/05/2020 3:05 PM CDT) Pathologist [facility] COVID-19 PCR Not detected Not detected 09/06/19 21 3:55 PM CDT [facility] Microbiology SPECIMEN FROM NASOPHARYNGEAL STRUCTURE / Unknown Collection / Unknown 09/05/2020 3:05 PM CDT 09/05/2020 3:11 PM CDT Fabiano Ponce DO LAB - MICROBIOLOGY O RDERABLES [facility] [address] [place] [address] * OPH OCT TEST SLU (08/26/2020 9:04 AM CDT) Anatomical Region Laterality Modality Other 08/26/2020 9:04 AM CDT Chrystal Roa MD OPHTHALMOLOGY SERVIC ES ORDERABLES * HCG URINE QUAL POCT NOTIFICATION (07/03/2020 11:51 AM SCOURING TRAIN OPERATOR CHIEF) Only the most recent of2 resultswithin the time period is included. Comment Notification Label Only - See Separate Report 07/03/2020 1:01 PM SCOURING TRAIN OPERATOR CHIEF [facility] Urine URINE / Unknown 07/03/2020 1 1:51 AM SCOURING TRAIN OPERATOR CHIEF 07/03/2020 11:55 AM SCOURING TRAIN OPERATOR CHIEF Fidel Moss MD LAB - URINALYSIS ORD ERABLES [facility] [address] [place] [address], [facility] [phone] * OPH VISUAL FIELD TEST [facility]U (06/21/2020 8:01 AM SCOURING TRAIN OPERATOR CHIEF) Anatomical Region Laterality Modality Other 06/21/2020 8:01 AM SCOURING TRAIN OPERATOR CHIEF Fidel Moss MD OPHTHALMOLOGY SERVIC ES ORDERABLES * OPH OCT TEST SLU (05/27/2020 10:37 AM SCOURING TRAIN OPERATOR CHIEF) Anatomical Region Laterality Modality Other 05/27/2020 10:3 7 AM SCOURING TRAIN OPERATOR CHIEF Chrystal Roa MD OPHTHALMOLOGY SERVIC ES ORDERABLES * LARYNGEAL MASK AIRWAY (04/18/2020 8:03 AM SCOURING TRAIN OPERATOR CHIEF) Narrative Kriss Katz Anes Asst - 04/18/2020 8:03 AM SCOURING TRAIN OPERATOR CHIEF Kriss Katz Anes Asst ? 04/18/2020 ??8:03 AM LMA Placement Procedure/LDA Note: Patient Location: OR. Procedure: LMA. Induction: standard IV Patient position: sniffing. Mask Ventilation: easy Type: ??LMA Size: ??4 Number of Attempts: 1. Placement verified by: CO2 monitor Staff Section ?? Anesthesia Provider: Neyda Beavers MD Provider #1: [place], Kriss J, Anes Asst, Performed the procedure. Neyda Beavers MD GENERAL ANESTHESIA ORDERABLES * OPH OCT TEST SLU (04/10/2020 1:09 PM SCOURING TRAIN OPERATOR CHIEF) Anatomical Region Laterality Modality Other 04/10/2020 1:09 PM SCOURING TRAIN OPERATOR CHIEF Chrystal Roa MD OPHTHALMOLOGY SERVIC ES ORDERABLES * OCT (03/26/2020 1:04 PM SCOURING TRAIN OPERATOR CHIEF) Anatomical Region Laterality Modality Other 03/26/2020 1:04 PM SCOURING TRAIN OPERATOR CHIEF Kasey Brar MD OPHTHALMOLOGY SERV ICES ORDERABLES * STREP A SCREEN - POINT OF CARE (AMB) STL (06/25/2017) Strep A Rapid POCT Negative Negative Strep A Internal Control Present Lot # [id number] Expiration Date 518[address] Throat ENTIRE THROAT (SURFACE REGION OF NECK) / Unknown 06/25/2017 Rea Craven GLASS TOUGHENING OPERATOR-ASSISTANT HVAC MECHANIC LAB - POINT OF CARE ORDERABLES Care Teams Home Supervisor Relationship Specialty Start Date End Date Martha Lawrence MD PCP - General 03/21/20 Kathy Corley GLASS TOUGHENING OPERATOR-ASSISTANT HVAC MECHANIC [address] [place] [phone] Nurse Practitioner Ophthalmology 12/14/22 Gibran David [address] [place] [address] 12/14/22
--- OUTSIDE RECORDS SUMMARY | 2024-05-13 22:19 | XMS_ITS ---
Author Organization [facility] Address [address] [place] [address] Care Team Providers Care Transition Nurse Name Role Phone Aylin Nguyen Primary Care Provider REASON FOR VISIT PCOS Encounters Encounter Location Date Provider Diagnosis [facility] - Aylin Nguyen [address] [place] [address] 09/09/2023 Aylin Nguyen Plan Of Treatment No Information Progress Notes * Cesario JEWELLDOB:1980 (44 yo F)Acc No.[id number]:09/09/2023 Progress Notes Patient:?Cesario JEWELL Provider:?Aylin Nguyen MD :1980???Age:43 Y???Sex:Female D ate:09/09/2023 Phone: Address:[address] [place], [place] [id number] Subjective: * Chief Complaints: * ???1. PCOS. * Medical History:? Objective: * Vitals:? Assessment: Plan: * Treatment: * Billing Information: * Visit Code:? * Procedure Codes:? * Electronic signature of Conrado Nguyen MD on 05/13/2024 at 10:18 PM BOOK COVERER Sign off status: Pending * Provider:?Aylin Nguyen MD Date:? Generated for Karli sherita/Sergio/eTransmitting on:?05/13/2024 10:18 PM BOOK COVERER
--- OUTSIDE RECORDS SUMMARY | 2024-05-13 22:19 | XMS_ITS | Encounter Summary ---
Author Organization [facility] Address [address] [place] [address] Care Team Providers Care Power Tool Repairer Name Role Phone Martha Lawrence MD Primary Care Provider Kathy Corley Unavailable [phone] Gibran David Unavailable Reason for Visit * Reason Comments Retina Evaluation Follow-up Encounter Details Date Type Department Care Team (Late st Contact Info) Description 06/07/2023 1:00 PM SALES CONSULTANT Office Visit [facility] - Ophthalmology [address] [place] [phone] Chrystal Roa MD [address] [place] [address] [place] [address] Subjective visual disturbance of right eye (Primary Dx); History of vitrectomy; Anophthalmos of left eye; Pseudophakia; Prosthetic eye globe; Congenital glaucoma of right eye; Secondary glaucoma, mild stage, right Social History Tobacco Use Types Packs/Day Years [...] this encounter Patient Instructions * Patient Instructions* Mira Angulo MD - 06/07/2023 1:44 PM SALES CONSULTANT [facility] Ophthalmology Located at: [facility] Medicine Ophthalmology [address] [place] [address] Your Visit from 06/07/2023 Follow up Appointment: 1 year - It is important that you follow up with us for the health of your eyes. - If you have trouble making or getting to your appointment please call our clinic Activity Instructions: Polycarbonate glasses for protection Do Not Rub your Eyes Reasons to [...] thesemedicines. Phone Number: Weekdays (8am-5pm) - Call () Evenings, Weekends, or Holidays: Call [phone] and dial [phone] for the special warfare operator. Ask to speak to the eye doctor orthodontic lab technician. They will connect us. S CONSULTANT documented in this encounter Progress Notes * Piri, Chrystal, MD - 06/07/2023 1:14 PM CST Images from the original note were not included. Ophthalmology Office Note Subjective: Chief Complaint Patient presents with ??? Retina Evaluation ??? Follow-up Cesario Jewell is a 43 year old female who presents for retina follow up. Plan today: DFE OD, OCT Nicasio OD Gtts: Latanaprost Past History: Past Medical History: Diagnosis Date ??? Anxiety [...] Grandmother ??? Hypertension Maternal Grandmother Social History Socioeconomic History ??? Marital status: Spouse name: Not on file ??? Number of children: Not on file ??? Years of education: Not on file ??? Highest education level: Not on file Occupational History ??? Not on file Tobacco Use ??? Smoking status: Never ??? Smokeless tobacco: Never Vaping Use ??? Vaping Use: Never used Substance and Sexual Activity ??? Alcohol use: Never ??? Drug use: Not Currently ??? Sexual activity: Not on file Other Topics Concern ??? Not on file Social History Narrative ??? Not on file Social Determinants of Health Financial Resource Strain: Not on file Food Insecurity: Not on file Transportation Needs: Not on file Stress: Not on file Housing Stability: Not on file Review of Systems Constitutional: Negative for chills, fever and weight loss. HENT: Negative for ear discharge, hearing loss and tinnitus. Respiratory: Negative for cough, hemoptysis and wheezing. Cardiovascular: Negative for chest pain and palpitations. Gastrointestinal: Negative for abdominal pain, nausea and vomiting. Genitourinary: Negative for dysuria, frequency and urgency. Musculoskeletal: Negative for back pain, falls and myalgias. Skin: Negative for itching and rash. Neurological: Negative for sensory change, speech change and focal weakness. Psychiatric/Behavioral: Negative for hallucinations, substance abuse and suicidal ideas. Current Outpatient Medications Medication Sig Dispense Refill [...] mouth once daily as needed ??? Creon [id number] units capsule 2 CAP ORALLY THREE TIMES [...] (one) tablet by mouth once daily ??? [id number] (Maxitrol) ophthalmic ointment Instill into left eye [...] Oxycodone-Acetaminophen Diarrhea, Nausea and/or Vomiting and Vomiting Objective: Base Eye Exam Visual Acuity (Snellen - Linear) Right Left Dist sc pros Dist cc 20/30 -2 Dist ph cc ni Correction: Glasses Tonometry (1:09 PM) Right Left Pressure 16 pros Pupils Dark Light Shape React APD Right 4 3 Round Brisk None Left pros Visual Bay Left Right Full Restrictions Total superior temporal, inferior temporal, superior nasal, inferior nasal deficiencies Extraocular Movement Right Left Full pros -- -- -- -- -- -- -- -- -- -- -- -- -- -- -- -- Neuro/Psych Oriented x3: Yes Mood/Affect: Normal Dilation Both eyes: 1.0% Mydriacyl, 2.5% Slade Synephrine @ 1:14 PM Slit Lamp and Fundus Exam External Exam Right Left External Normal Normal Slit Lamp Exam Right Left Lids/Lashes Normal Normal Conjunctiva/Sclera Bleb formation over ahmed ST Prosthetic Cornea Clear, horizontal stria inferiorly, vertical stria laterally Anterior Chamber Deep and quiet Iris Round and reactive Lens Sulcus lens Anterior Vitreous Post PPV, tube in sulcus Fundus Exam Right Left Disc Normal C/D Ratio 0.5 small nerve Macula Normal Vessels Normal Periphery Normal Studies 06/07/2023 RETINAL ANALYSIS OCT OCT OD: Normal retina crosssection with preservation of fovea, clivus, and cellular lamina OS: Prosthesis OD : Today's picture bottom one Extended Ophthalmoscopy: OD: Optic nerve pink with sharp margins, macula flat, vessels wnl, periphery attached 360 OS: Proosthetic Assessment/Plan: Cesario Jewell is a 43 year old female Subjective visual disturbance OD - Pt reported white crescent in her temporal visual field/ floater 2 days ago - It lasted for 45 min and then disappeared. Was not associated with headaches - Also feels like field is worse - Retina exam wnl, attached 360 as far as could be seen - will see Dr Moss 06/22/2023 for size 3 HVF 24-2 to assess progression of glaucoma - If no changes in VF, could be ocular migraine ( Dx of exclusion) s/p 25g PPV OD for??visually significant vitreous opacities/PVD??(04/18/20) - PPV performed due to??significant effect on daily activities and poor performance at work due to PVD - Today 9 months follow up ,VA stable , normal foveal contour on OCT, normal DFE in areas seen- limited view secondary to poor dilation, IOP 16 ?? Prosthetic Eye??OS?? 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 S/p CE/IOL as toddler ??? s/p Ahmed??with pars plana tube OD??07/03/20 ??? s/p??Ahmed tube revision??(shortening the tube),??right??eye??for tube in visual axis??09/23/20 - Testing: ??? OCT 06/26/21 RNFL 76 ( thin)? HVF 09/11/21 LAYA Faster: No clear glaucoma deficit, no specific nasal depressions. VFI 98% Disc photos (06/26/21) - mild cupping ?? Pseudophakia, OD - 3 Piece in the sulcus ?? PLAN -Continue Latanoprost QHS OD -Reviewed RD warning signs, instructed to call immediately with any concerns -Continue time study engineer polycarbonate glasses wear as monocular precaution -Follow up Dr Moss 06/22/2023 for size 3 HVF 24-2. - RTC retina 1 year . Pt seen with Dr. Crispin Angulo MD PGY3, Ophthalmology [facility] 06/07/2023 1:29 PM I reviewed and confirmed the techs ROS, past histories, and readings. I have personally seen and examined the patient, and reviewed in detail the findings of the resident/fellow. I have personally performed the extended ophthalmoscopy.The final examination findings, image interpretations, and plan as documented in the record represent my personal judgment and conclusions. with the following additions or corrections: Follow up: 1 year, DFE OD, OCT Nicasio OD Glaucoma as scheduled in a week for Brice Roa MD Attending, Retina and Uveitis Service Date of Service: 06/07/2023 Abbreviations for non-conduit bender colleagues OD: RIGHT EYE OS: LEFT EYE OU: BOTH EYES MA: microaneurysm DME: Diabetic macular edema CWS: Cotton Wool spots DBH: Dot Blot hemorrhage NPDR: Non proliferative diabetic retinopathy PDR: Proliferative diabetic retinopathy DME: Diabetic macular edema HUMA: intra retinal microvascular abnormalities NVD: Neovascularization of disc NVE: neovascularization elsewhere DFE: Dilated Fundus Exam OCT: Optical Coherence Tomography PRP: Wilder retinal photocoagulation (laser) VH: vitreous hemorrhage BCVA : Best Corrected Visual Acuity PH: Pinhole S CONSULTANT documented in this encounter Plan of Treatment Upcoming Encounters Date Type Department Care Team (Late st Contact Info) Description 06/07/2024 1:00 PM SALES CONSULTANT Office Visit [facility] - Ophthalmology [address] [place] [phone] Chrystal Roa MD [address] [place] [address] [place] [phone] 06/23/2024 2:00 PM SALES CONSULTANT Office Visit [facility] - Ophthalmology [address] [place] [phone] Fidel Moss MD [address] [place] [phone] documented as of this encounter Results * RETINAL ANALYSIS OCT (06/07/2023 12:59 PM SALES CONSULTANT) Anatomical Region Laterality Modality Head External-Camera Photography Narrative 06/09/2023 1:29 PM SALES CONSULTANT Images from the original result were not included. 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
--- OUTSIDE RECORDS SUMMARY | 2024-05-13 22:19 | XMS_ITS | Patient Health Record ---
Author Organization [facility] As [employer] [facility] Address [address] [place] [address] Care Team Providers Care Health Policy Analyst Name Role Phone Martha Lawrence MD Primary Care Provider Unavailab Mitesh Minaya Unavailable [phone] Kandy Cardona Unavailable [phone] Damian Nagel Unavailable [phone] Migration, Provider Unavailable Unavailable Marciano Caal Unavailable [phone] Allergies Allergen (clinical drug ingredient) Drug/Non Drug [...] prazosin Prazosin Unknown Drug Allergy 09/20/2023 Active Results Component Value Reference Range Notes DRUG SCREEN, 14 DRUGS (DETEC TIMED), URINE Reviewed date:09/03/2023 12:00:00 AM Interpretation: Performing Lab: Notes/Report: Reason For Referral No Information Medications Medication SIG (Take, Route, Frequency, Duration) Notes Start Date End Date Status Montelukast Sodium 10 MG TAKE 1 TABLET [...] for 90 days Active lamoTRIgine 100 MG 1 tablet Oral Once a day for 90 days Active Spravato (84 MG Dose) 28 MG/DEVICE INHALE 84MG PER NASAL ROUTE EVERY WEEK for 7 04/04/2024 Active Myfembree 40-1-0.5 MG TAKE 1 TABLET BY M OUTH EVERY DAY Oral for 84 Days Activ e buPROPion HCl ER (XL) 150 MG TAKE 1 TABLET BY MOUTH EVERY DAY IN THE MORNING Oral for 90 Days Active lamoTRIgine 100 MG TAKE 1 TABLET BY DAGMAR TH EVERY DAY AT BEDTIME Oral for 90 Days Active Nebivolol HCl 10 MG TAKE 1 TABLET BY DAGMAR TH EVERY DAY Oral for 90 Days Activ e Naproxen 500 MG TAKE 1 TABLET BY DAGMAR TH TWICE A DAY NEEDED FOR PAIN Oral for 15 Days Active Escitalopram Oxalate 20 MG TAKE 1 TABLET BY MOUTH EVERY DAY Oral for 90 Days Activ e Atomoxetine HCl 60 MG 1 capsule Oral Onc e a day for 90 days Active Escitalopram Oxalate 20 MG 1 tablet Oral Once a day for 90 days Active Immunizations Vaccine Route Administration Date Status Comme nts Hep B, adolescent or pediatr ic (-), 3 dose schedule Unknown 11/10/1999 Administered Influenza virus vaccine, quadrivalent (IIV4), split virus, 0.25 mL dosage Unknown 06/03/2019 Administered Influenza, injectable, MDCK, preservative free Unknown 01/30/2023 Administered Pfizer Biontech Covid-19 Vac cine 2nd dose Unknown 07/04/2020 Administered Pfizer [employer]ion[employer] Covid-19 Vac cine 2nd dose Unknown 07/26/2020 Administered Pfizer [employer]ion[employer] Covid-19 Vac cine 2nd dose Unknown 02/15/2021 Administered Pfizer [employer]ion[employer] Covid-19 Vac cine 2nd dose Unknown 08/16/2021 Administered Social History Tobacco Use: Social History Observation Description Date Details (start date - stop date) Never Smoker NA - NA Sex Assigned At : Social History Observation Description Sex Assigned At Female Household Question Answer Notes Marital status: Number of adults in household: 2 Tobacco Control (Standard) Question Answer Notes Tobacco use: Nonsmoker Problems Problem Type SNOMED Code ICD Code Onset Dates Problem Status W/U Status Risk Notes Problem Moderate recurrent major depression (80137274) Major depressive disorder, recurrent, moderate (F33.1) Active confirmed Problem Severe recurrent major depression without psychotic features (31839382) Major depressive disorder, recurrent severe without psychotic features (F33.2) 09/14/19 24 Active confirmed Problem Generalized anxiety disorder (78562275) Generalized anxiety disorder (F41.1) 09/20/19 24 Active confirmed Problem Posttraumatic stress disorder (18310533) Post-traumatic stress disorder, chronic (F43.12) Active confirmed Problem Primary insomnia (0044762) Primary insomnia (F51.01) Active confirmed Problem Insomnia disorder related to another mental disorder (62193760) Insomnia due to other mental disorder (F51.05) Active confirmed Problem Attention deficit hyperactivity disorder, combined type (66031529) Attention-deficit hyperactivity disorder, combined type (F90.2) Active confirmed Problem 525467095 MDD (major depressive disorder), recurrent episode, mild (F33.0) Active confirmed Problem 9018289 Suicidal thought s (R45.851) Active confirmed Problem 80735019 Sleep disturbanc e (G47.9) Active confirmed Vital Signs Heart Rate 69 /min 05/12/2024 Oximetry 98 % 01/17/2024 Height-cm 167.64 cm 05/12/2024 Blood pressure diastolic 75 mm Hg 05/12/2024 Weight-kg 110.13 kg 04/25/2024 Height 66.00 in 05/12/2024 Blood pressure systolic 115 mm Hg 05/12/2024 Weight 242.8 lbs 04/25/2024 BMI 39.18 kg/m2 04/25/2024 Encounters Encounter Location Date Provider Diagnosis [facility] [address] [place] [address] 04/25/2024 Mitesh Dawson Generalized anxiety disorder F41.1 ; Primary insomnia F51.01 ; Attention-deficit hyperactivity disorder, combined type F90.2 and Major depressive disorder, recurrent, moderate F33.1 [facility] [address] [place] [address] 05/20/2023 Mitesh Dawson Major depressive disorder, recurrent, mild F33.0 ; Generalized anxiety disorder F41.1 ; Post-traumatic stress disorder, chronic F43.12 ; Major depressive disorder, recurrent severe without psychotic features F33.2 ; Attention-deficit hyperactivity disorder, combined type F90.2 and Primary insomnia F51.01 [facility] [address] [place] [address] 06/21/2023 Mitesh Dawson Major depressive disorder, recurrent severe without psychotic features F33.2 ; Major depressive disorder, recurrent, mild F33.0 ; Primary insomnia F51.01 ; Generalized anxiety disorder F41.1 ; Post-traumatic stress disorder, chronic F43.12 and Attention-deficit hyperactivity disorder, combined type F90.2 [place] [address] [facility] [address] [facility] [address] [place] [address] 07/20/2023 Mitesh Dawson Attention-deficit hyperactivity disorder, combined type F90.2 ; Post-traumatic stress disorder, chronic F43.12 ; Major depressive disorder, recurrent severe without psychotic features F33.2 ; Generalized anxiety disorder F41.1 and Primary insomnia F51.01 [place] [address] [facility] [address] [facility] [address] [place] [address] 07/23/2023 Provider Migration Major depressive disorder, recurrent, moderate F33.[address] [facility] [address] [place] [address] 07/27/2023 Mitesh Dawson Post-traumatic stres s disorder, chronic F43.12 ; Major depressive disorder, recurrent severe without psychotic features F33.2 ; Attention-deficit hyperactivity disorder, combined type F90.2 ; Primary insomnia F51.01 and Generalized anxiety disorder F41.1 [place] [address] [facility] [address] [address] 07/30/2023 Kandy Dulce Major depressive disorder, recurrent severe without psychotic features F33.2 [place] [address] [facility] [address] [facility] [address] [place] [address] 08/02/2023 Mitesh Dawson Generalized anxiety disorder F41.1 ; Primary insomnia F51.01 ; Post-traumatic stress disorder, chronic F43.12 ; Attention-deficit hyperactivity disorder, combined type F90.2 and Major depressive disorder, recurrent severe without psychotic features F33.2 [facility] [address] [facility] [address] [place] [address] 08/04/2023 Kandy Dulce Major depressive disorder, recurrent severe without psychotic features F33.2 [place] [address] [facility] [address] [facility] [address] [place] [address] 08/09/2023 Mitesh Dawson Major depressive disorder, recurrent severe without psychotic features F33.2 and Generalized anxiety disorder F41.1 [facility], [facility] [address] [place] [address] 08/12/2023 Mitesh Dawson Major depressive disorder, recurrent severe without psychotic features F33.2 and Generalized anxiety disorder F41.1 [facility], [facility] [address] [place] [address] 08/17/2023 Mitesh Dawson Major depressive disorder, recurrent severe without psychotic features F33.2 and Generalized anxiety disorder F41.1 [facility], [facility] [address] [place] [address] 08/19/2023 Mitesh Dawson Major depressive disorder, recurrent severe without psychotic features F33.2 and Generalized anxiety disorder F41.1 [facility], [facility] [address] [place] [address] 08/30/2023 Mitesh Dawson Generalized anxiety disorder F41.1 and Major depressive disorder, recurrent severe without psychotic features F33.2 [facility], [facility] [address] [place] [address] 09/03/2023 Mitesh Dawson Post-traumatic stres s disorder, chronic F43.12 ; Attention-deficit hyperactivity disorder, combined type F90.2 ; Primary insomnia F51.01 ; Major depressive disorder, recurrent, moderate F33.1 and Generalized anxiety disorder F41.1 [facility], [facility] [address] [place] [address] 09/06/2023 Mitesh Dawson Post-traumatic stres s disorder, chronic F43.12 ; Primary insomnia F51.01 ; Attention-deficit hyperactivity disorder, combined type F90.2 ; Generalized anxiety disorder F41.1 and Major depressive disorder, recurrent, moderate F33.1 [facility], [facility] [address] [place] [address] 09/14/2023 Kandyamber Hernadezag Major depressive disorder, recurrent severe without psychotic features F33.2 [facility], [facility] [address] [place] [address] 09/20/2023 Mitesh Dawson Major depressive disorder, recurrent, moderate F33.1 and Generalized anxiety disorder F41.1 [facility], [facility] [address] [place] [address] 10/05/2023 Mitesh Dawson [facility], [facility] [address] [place] [address] 10/11/2023 Mitesh Dawson Major depressive disorder, recurrent severe without psychotic features F33.2 ; Generalized anxiety disorder F41.1 ; Attention-deficit hyperactivity disorder, combined type F90.2 ; Post-traumatic stress disorder, chronic F43.12 and Insomnia due to other mental disorder F51.05 [facility], [facility] [address] [place] [address] 10/21/2023 Mitesh Dawson Major depressive disorder, recurrent severe without psychotic features F33.2 and Generalized anxiety disorder F41.1 [facility], [facility] [address] [place] [address] 11/01/2023 Kandy Dulce Major depressive disorder, recurrent severe without psychotic features F33.2 [facility], [facility] [address] [place] [address] 11/10/2023 Kandy Dulce Major depressive disorder, recurrent severe without psychotic features F33.2 [facility], [facility] [address] [facility] [address] [place] [address] 12/02/2023 Damian Robe Major depressive disorder, recurrent severe without psychotic features F33.2 [facility], [facility] [address] [place] [address] 12/13/2023 Marciano Clubb Major depressive disorder, recurrent severe without psychotic features F33.2 [facility], [facility] [address] [place] [address] 12/29/2023 Mitesh Dawson Generalized anxiety disorder F41.1 ; Primary insomnia F51.01 ; Attention-deficit hyperactivity disorder, combined type F90.2 and Major depressive disorder, recurrent, moderate F33.1 [facility], [facility] [address] [place] [address] 01/06/2024 Marciano Clubb Major depressive disorder, recurrent severe without psychotic features F33.2 [facility], [facility] [address] [place] [address] 01/17/2024 Damian Nagel Major depressive disorder, recurrent severe without psychotic features F33.2 and Sleep disturbance G47.9 [facility], [facility] [address] [place] [address] 01/28/2024 Marciano Clubb Major depressive disorder, recurrent severe without psychotic features F33.2 [facility], [facility] [address] [place] [address] 02/07/2024 Marciano Clubb Major depressive disorder, recurrent severe without psychotic features F33.2 [facility], [facility] [address] [place] [address] 02/17/2024 Marciano Clubb Major depressive disorder, recurrent severe without psychotic features F33.2 and Suicidal thoughts R45.851 [facility], [facility] [address] [place] [address] 02/28/2024 Marciano Clubb MDD (major depressiv e disorder), recurrent episode, mild F33.0 [facility], [facility] [address] [place] [address] 02/29/2024 Mitesh Resendezoza Generalized anxiety disorder F41.1 ; Primary insomnia F51.01 ; Attention-deficit hyperactivity disorder, combined type F90.2 and Major depressive disorder, recurrent, moderate F33.1 [facility], [facility] [address] [place] [address] 03/09/2024 Marciano Clubb MDD (major depressiv e disorder), recurrent episode, mild F33.0 [facility], [facility] [address] [place] [address] 03/20/2024 Marciano Clubb Major depressive disorder, recurrent severe without psychotic features F33.2 [facility], [facility] [address] [place] [address] 03/30/2024 Marciano Clubb Major depressive disorder, recurrent severe without psychotic features F33.2 [facility], [facility] [address] [place] [address] 04/10/2024 Marciano Clubb Major depressive disorder, recurrent severe without psychotic features F33.2 [facility], [facility] [address] [place] [address] 05/01/2024 Marciano Clubb Major depressive disorder, recurrent severe without psychotic features F33.2 [facility], [facility] [address] [place] [address] 05/12/2024 Marciano Clubb Major depressive disorder, recurrent severe without psychotic features F33.2 [facility], [facility] [address] [place] [address] 06/21/2023 Provider Migration [facility], [facility] [address] [place] [address] 07/20/2023 Provider Migration [facility], [facility] [address] [place] [address] 07/21/2023 Provider Migration [facility], [facility] [address] [place] [address] 07/23/2023 Provider Migration [facility], [facility] [address] [place] [address] 08/04/2023 Provider Migration [facility], [facility] [address] [place] [address] 08/16/2023 Provider Migration [facility], [facility] [address] [place] [address] 08/25/2023 Provider Migration [facility], [facility] [address] [place] [address] 09/25/2023 Provider Migration [facility], [facility] [address] [place] [address] 09/26/2023 Provider [facility], [facility] [address] [place] [address] 10/19/2023 Mitesh Dawson Major depressive disorder, recurrent severe without psychotic features F33.2 [facility], [facility] [address] [place] [address] 10/26/2023 Mitesh Dawson Major depressive disorder, recurrent severe without psychotic features F33.2 [facility], [facility] [address] [place] [address] 11/19/2023 Mitesh Dawson [facility], [facility] [address] [place] [address] 11/22/2023 Mitesh Dawson [facility], [facility] [address] [place] [address] 11/29/2023 Mitesh Dawson Primary insomnia F51.01 [facility] [facility] [address] [place] [address] 12/27/2023 [facility] [address] [place] [address] 04/04/2024 Marciano Caal Major depressive disorder, recurrent severe without psychotic features F33.2 [facility] [address] [place] [address] 04/17/2024 [facility]h [facility] [address] [place] [address] 01/24/2024 Mitesh Dawson [facility] [place] [facility] [address] [place] [address] 04/16/2024 Miteshdean Dawson Major depressive disorder, recurrent, moderate F33.1 Assessments Encounter Date Diagnosis (ICD Code) Assessment Notes Treatment Notes Treatment Clinical Notes Section Notes 10/26/2023 Major depressive disorder, recurrent severe without psychotic features (ICD-10 - F33.2) 04/04/2024 Major depressive disorder, recurrent severe without psychotic features (ICD-10 - F33.2) 10/11/2023 Major depressive disorder, recurrent severe without psychotic features (ICD-10 - F33.2) cont Spravato 84mg every 10 days tolerated tx well, has had improvement in depression symptoms with treatment 10/11/2023 Generalized anxiety disorder (ICD-10 - F41.1) 04/25/2024 Generalized anxiety disorder (ICD-10 - F41.1) 05/12/2024 Major depressive disorder, recurrent severe without psychotic features (ICD-10 - F33.2) Continue current treatment as prescribed by primary psychiatric care provider. 1. Depression - Patient reports a depression rating of 5-6 out of 10. - Plan: a. Continue current antidepressant medication. b. Encourage regular physical activity and maintain a healthy sleep schedule. 2. Anxiety - Patient reports an anxiety rating of 7-8 out of 10. - Plan: a. Consider adjusting current anxiolytic medication or adding a new medication if necessary. b. Encourage practice of relaxation techniques, such as deep breathing exercises and mindfulness meditation. 3. Sleep - Patient reports getting approximately 7 hours of sleep per night. - Plan: a. Encourage maintaining a consistent sleep schedule and practicing good sleep hygiene. b. Monitor sleep patterns during follow-up appointments. 4. Appetite - Patient reports a normal appetite, neither overeating nor under-eating. - Plan: a. Encourage maintaining a balanced diet. b. Monitor any changes in appetite during follow-up appointments. 5. Safety - Patient denies any thoughts of suicide, self-harm, or harming others. - No reported hallucinations, delusions, or paranoia. - Plan: a. Continue to monitor for any changes in safety concerns during follow-up appointments. 04/16/2024 Major depressive disorder, recurrent, moderate (ICD-10 - F33.1) 02/29/2024 Generalized anxiety disorder (ICD-10 - F41.1) 1. Insomnia: - Patient reports difficulty falling asleep and staying asleep, averaging 4-5 hours of sleep per night. - Currently on trazodone, but reports it makes them feel aloof and does not improve sleep. Plan: - Continue zaleplon 10 mg at bedtime for sleep. - Refill prescription. - Reassess sleep quality at the next visit and consider alternative sleep aids if no improvement. 2. Anxiety and Depression: - Patient reports improvement in mood with Spravato treatments every 10 days. - No suicidal thoughts reported. Plan: - Continue Spravato 84 mg every 10 days. - Continue lamotrigine 100 mg daily, bupropion 150 mg once a day, Vraylar 3 mg daily, and escitalopram 20 mg daily. - Refill bupropion prescription. 3. ADHD: - Patient reports atomoxetine 60 mg daily is helpful. Plan: - Continue atomoxetine 60 mg daily. - Refill prescription. 4. Post-surgical pain: - Patient reports pain in the shoulder after recent surgery, which may be contributing to sleep difficulties. Plan: - Monitor pain levels and consider pain management options if pain persists or worsens. 5. Follow-up: - Schedule a follow-up appointment in 6 weeks to reassess sleep, mood, and overall well-being. - Continue Spravato treatments every 10 days, with a total of 8 treatments before the next visit. 12/02/2023 Major depressive disorder, recurrent severe without psychotic features (ICD-10 - F33.2) 12/13/2023 Major depressive disorder, recurrent severe without psychotic features (ICD-10 - F33.2) 07/23/2023 Major depressive disorder, recurrent, moderate (ICD-10 - F33.1) 10/19/2023 Major depressive disorder, recurrent severe without psychotic features (ICD-10 - F33.2) 12/29/2023 Generalized anxiety disorder (ICD-10 - F41.1) 1. Treatment-resista nt depression and anxiety: - Continue Bupropion 150 mg daily - Continue Escitalopram 20 mg daily - Continue Vraylar 3 mg daily - Continue Spravato 84 mg every 10 days - Continue Lamotrigine 100 mg once a day at night Plan: - Monitor response to medications and adjust as needed - Complete FMLA paperwork for one day a week off for depression and anxiety treatment 2. Insomnia: - Continue Zolpidem 10 mg at bedtime Plan: - Encourage behavioral modifications, such as going for a walk before bed or taking a shower to change routine - Recommend staying up later even if partner wants patient to go to bed early 3. Glaucoma: Plan: - Reschedule eye doctor appointment as soon as possible - Emphasize the importance of timely appointments to prevent vision loss 4. FMLA paperwork: Plan: - Complete FMLA paperwork for one day a week off for depression and anxiety treatment - Fax paperwork to the appropriate alliance party 6. Medication refills: Plan: - Refill Zolpidem 10 mg at bedtime for insomnia - Refill Lamotrigine 100 mg once a day at night for depression - Refill Bupropion 150 XL once a day for depression - Refill Vraylar 3 mg once a day for depression - Refill Escitalopram 20 mg daily for depression - Refill Spravato 84 mg every 10 days for depression - No refill needed for Atomoxetine 60 mg at this time 12/29/2023 Primary insomnia (ICD-10 - F51.01) zaleplon 10 mg capsule 1. Treatment-resista nt depression and anxiety: - Continue Bupropion 150 mg daily - Continue Escitalopram 20 mg daily - Continue Vraylar 3 mg daily - Continue Spravato 84 mg every 10 days - Continue Lamotrigine 100 mg once a day at night Plan: - Monitor response to medications and adjust as needed - Complete FMLA paperwork for one day a week off for depression and anxiety treatment 2. Insomnia: - Continue Zolpidem 10 mg at bedtime Plan: - Encourage behavioral modifications, such as going for a walk before bed or taking a shower to change routine - Recommend staying up later even if partner wants patient to go to bed early 3. Glaucoma: Plan: - Reschedule eye doctor appointment as soon as possible - Emphasize the importance of timely appointments to prevent vision loss 4. FMLA paperwork: Plan: - Complete FMLA paperwork for one day a week off for depression and anxiety treatment - Fax paperwork to the appropriate alliance party 6. Medication refills: Plan: - Refill Zolpidem 10 mg at bedtime for insomnia - Refill Lamotrigine 100 mg once a day at night for depression - Refill Bupropion 150 XL once a day for depression - Refill Vraylar 3 mg once a day for depression - Refill Escitalopram 20 mg daily for depression - Refill Spravato 84 mg every 10 days for depression - No refill needed for Atomoxetine 60 mg at this time 02/17/2024 Major depressive disorder, recurrent severe without psychotic features (ICD-10 - F33.2) 1. Depression - Patient rates her depression as 2/10. - Plan: a. Continue current treatment. b. Monitor progress. c. Encourage activities promoting mental well-being like exercise, socializing, and relaxation techniques. 2. Anxiety - Patient rates her anxiety as 2/10. - Plan: a. Continue current treatment. b. Monitor progress. c. Encourage stress reduction techniques like deep breathing, mindfulness, and meditation. 3. Suicidal Ideation - Patient reports daily suicidal thoughts. - Patient denies thoughts of harming others. - Plan: a. Assess risk and protective factors for suicide. b. Provide crisis resources and encourage reaching out if needed. c. Schedule more frequent follow-ups to monitor mental health status closely. 4. Sleep - Patient reports improved sleep, getting 6-7 hours per night. - Patient mentions using magnesium, which may contribute to improved sleep. - Plan: a. Encourage good sleep hygiene with consistent schedule and bedtime routine. b. Avoid stimulants close to bedtime. 5. Appetite - Patient reports normal appetite. - Plan: a. Encourage balanced diet. b. Monitor appetite changes at next apt. 6. Medication - No reported medication changes. - Plan: a. Continue current medication regimen. b. Monitor for side effects/efficacy changes at next apt. 7. Physical Complaints - Patient reports no physical complaints. - Plan: a. Encourage regular physical activity and healthy lifestyle. b. Monitor for new physical complaints at next apt. 8. Psychosis - Patient denies hallucinations, paranoia, or delusions. - Plan: a. Continue monitoring for psychotic symptoms at next apt. 02/17/2024 Suicidal thoughts (ICD-10 - R45.851) 1. Depression - Patient rates her depression as 2/10. - Plan: a. Continue current treatment. b. Monitor progress. c. Encourage activities promoting mental well-being like exercise, socializing, and relaxation techniques. 2. Anxiety - Patient rates her anxiety as 2/10. - Plan: a. Continue current treatment. b. Monitor progress. c. Encourage stress reduction techniques like deep breathing, mindfulness, and meditation. 3. Suicidal Ideation - Patient reports daily suicidal thoughts. - Patient denies thoughts of harming others. - Plan: a. Assess risk and protective factors for suicide. b. Provide crisis resources and encourage reaching out if needed. c. Schedule more frequent follow-ups to monitor mental health status closely. 4. Sleep - Patient reports improved sleep, getting 6-7 hours per night. - Patient mentions using magnesium, which may contribute to improved sleep. - Plan: a. Encourage good sleep hygiene with consistent schedule and bedtime routine. b. Avoid stimulants close to bedtime. 5. Appetite - Patient reports normal appetite. - Plan: a. Encourage balanced diet. b. Monitor appetite changes at next apt. 6. Medication - No reported medication changes. - Plan: a. Continue current medication regimen. b. Monitor for side effects/efficacy changes at next apt. 7. Physical Complaints - Patient reports no physical complaints. - Plan: a. Encourage regular physical activity and healthy lifestyle. b. Monitor for new physical complaints at next apt. 8. Psychosis - Patient denies hallucinations, paranoia, or delusions. - Plan: a. Continue monitoring for psychotic symptoms at next apt. 02/28/2024 MDD (major depressive disorder), recurrent episode, mild (ICD-10 - F33.0) 1. Depression - Patient rates depression at 6 out of 10. - No thoughts of suicide, self-harm, or harming others. - No hallucinations, delusions, or paranoia. - Continue current antidepressant medication regimen. - Monitor depressive symptoms and adjust treatment as needed. - Encourage regular physical activity and social interactions. 2. Anxiety - Patient rates anxiety at 4 out of 10. - Continue current anxiolytic medication regimen. - Monitor anxiety symptoms and adjust treatment as needed. - Encourage relaxation techniques (deep breathing, mindfulness meditation). 3. Sleep Disturbance - Difficulty falling asleep, staying asleep, and waking up too early. - Approximately 4-5 hours of sleep per night. - Wakes up after first sleep cycle, unable to go back to sleep. - Appointment with senior counsel tomorrow to discuss sleep issues. - Encourage good sleep hygiene (consistent schedule, relaxing bedtime environment). 4. Appetite Disturbance - Reports appetite being all over the place, with periods of overeating and not eating. - Monitor appetite and eating habits. - Encourage balanced diet and regular meal schedule. - Consider referral to metal bonding crib attendant if issues persist. 03/09/2024 MDD (major depressive disorder), recurrent episode, mild (ICD-10 - F33.0) 1. Major Depressive Disorder - Patient reports depression as 8/10. - Decreased appetite and not eating for the past 2 days. - Possible seasonal component related to weather changes. - Patient mentions a downward spiral but is trying to stay positive. - Plan: continue current tx 2. Generalized Anxiety Disorder - Patient reports anxiety as 5-6/10. - Plan: continue current tx 3. Sleep Disturbance - Patient reports getting 5-6 hours of sleep per night. - Plan: encourage sleep hygiene 4. Suicidal Ideation, Self-Harm, and Homicidal Ideation - Patient denies any thoughts of suicide, self-harm, or hurting others. - Plan: continue current tx 5. Psychosis - Patient denies experiencing any psychotic symptoms (hallucinations, delusions, or paranoia). - Plan: continue current tx] 6. Physical Complaints - Patient denies any physical complaints during the visit. - Plan: continue current tx 7. Medication Review - Patient reports no recent changes to her medication regimen. - Plan: a. Continue current medication regimen. b. Monitor for any need for adjustments in future appointments. 03/20/2024 Major depressive disorder, recurrent severe without psychotic features (ICD-10 - F33.2) 1. Major Depressive Disorder - Patient rates depression as 7-8/10. - Non-existent appetite. - PHQ score: 8- mild - Possible weight loss - Sleep disturbance with interrupted sleep. - Plan: continue current treatment. 2. Generalized Anxiety Disorder - Patient rates anxiety as 5/10. - Plan: continue current treatment. 3. Suicide and Self-Harm Risk Assessment - Patient denies thoughts of suicide or self-harm. - Patient denies thoughts of hurting others. - Plan: continue current treatment, contact crisis hotline or seek emergency services if new or worsening symptoms arise. 4. Psychotic Symptoms Assessment - Patient denies hallucinations, delusions, or paranoia. 5. Medication - No recent medication changes reported by the patient. 6. Physical Health - Patient reports no physical complaints. 03/30/2024 Major depressive disorder, recurrent severe without psychotic features (ICD-10 - F33.2) 1. Major Depressive Disorder - Patient reports depression rating of 9/10 this week. - Continue current medications as prescribed by primary psychiatric care provider. - encouraged therapy services. 2. Generalized Anxiety Disorder - Patient reports anxiety rating of 6/10. - Continue current medications as prescribed by primary psychiatric care provider. 3. Insomnia - Patient reports difficulty sleeping due to constant worrying and racing thoughts. - Continue current medication as prescribed by primary psychiatric care provider - encouraged sleep hygiene. 4. Overeating - Patient reports overeating. - Encourage patient to maintain a balanced diet. 5. Medication Metabolism - Patient inquires about genetic testing for medication metabolism. - Inform patient about test's ability to determine metabolism speed, not medication efficacy. - Advise patient to request test during next appointment with Alexei. 6. Safety Assessment - Patient denies thoughts of suicide, self-harm, or harming others. - No reported hallucinations, delusions, or paranoia. 04/10/2024 Major depressive disorder, recurrent severe without psychotic features (ICD-10 - F33.2) 1. Major Depressive Disorder - Patient reports depression severity at 7-8/10. - Plan: a. Continue current antidepressant medication. b. Encourage regular physical activity and psychotherapy. 2. Generalized Anxiety Disorder - Patient reports anxiety severity at 5-6/10. - Plan: a. Continue current anxiolytic medication. b. Encourage relaxation techniques and cognitive-behavio ral therapy. 3. Sleep - Patient started to report sleep duration but was interrupted. - Plan: a. Assess sleep hygiene and provide recommendations for improvement. 4. Appetite appetite reported as decreased r/t Mounjaro use. - Plan: a. Assess for changes in appetite and weight. b. Encourage a balanced diet and regular meals. 5. Physical Complaints - No information provided on new physical complaints. - Plan: a. Assess for any new or worsening physical symptoms. b. Refer to primary care provider if needed. 6. Medication Management - No reported medication changes. - Plan: a. Review current medications and dosages. b. Monitor for side effects and effectiveness. 7. Safety - Patient denied thoughts of suicide, self-harm, or harm to others. - Plan: a. Continue to monitor for any changes in mental status or risk factors. 8. Psychosis - No information provided on hallucinations, delusions, or paranoia. - Plan: a. Assess for presence of psychotic symptoms. 02/07/2024 Major depressive disorder, recurrent severe without psychotic features (ICD-10 - F33.2) 1. Depression - Patient rates depression 6-11/16. - Plan: a. Continue current antidepressant medication. b. Monitor mood and depressive symptoms at next appointment. 2. Anxiety - Patient rates anxiety 5/10. - Plan: a. Continue current anxiolytic medication. b. Encourage relaxation techniques. c. Consider therapy referral if needed. 3. Sleep Disturbance - Patient reports inconsistent sleep patterns. - Tried melatonin 5mg (Gigi gummies) without improvement. - Plan: a. Recommend magnesium supplementation for REM sleep quality. b. Reassess sleep patterns at next appointment. c. Consider alternative sleep aids if needed. 4. Appetite Disturbance - Patient reports overeating or undereating, no in-between. - Plan: a. Encourage balanced diet. b. Consider metal bonding crib attendant referral if needed. c. Monitor appetite changes at next appointment. 5. Paranoia - Patient reports slight paranoia that something bad will happen. - Plan: a. Continue monitoring paranoia at next appointment. b. Consider therapy referral if worsens or impacts functioning. 01/28/2024 Major depressive disorder, recurrent severe without psychotic features (ICD-10 - F33.2) 1. Depression - Patient rates her depression as 6/10. - Plan: a. Continue current antidepressant medication. b. Monitor depressive symptoms and adjust medication as needed. c. Encourage regular physical activity and social interactions. 2. Anxiety - Patient rates her anxiety as 7/10. - Plan: a. Continue current anxiolytic medication. b. Monitor anxiety symptoms and adjust medication as needed. c. Encourage relaxation techniques like deep breathing and mindfulness meditation. 3. Sleep Disturbance - Patient reports difficulty staying asleep, getting 5-6 hours of sleep nightly. - Patient wakes up between 12-3 AM. - Patient does not currently take melatonin. - Plan: a. Recommend trial of OTC melatonin before bedtime and if waking up. b. Encourage consistent sleep schedule and good sleep hygiene. 4. Appetite Disturbance - Patient reports lack of appetite or overeating, stating it's not really balanced. - Plan: a. Encourage balanced diet and regular meal schedule. b. Monitor appetite changes and potential medication side effects. 5. No reported thoughts of self-harm, suicide, or harm to others. 6. No reported hallucinations, paranoia, or delusions. 7. No reported medication changes or physical complaints. 01/17/2024 Major depressive disorder, recurrent severe without psychotic features (ICD-10 - F33.2) 1. Anxiety - She reports anxiety level at 6/10. - No suicidal/homicida l ideation, delusions, paranoia, or hallucinations. - Plan: a. Continue current anxiety management strategies. b. Encourage relaxation techniques and consider therapy if not already involved. 2. Sleep Disturbance - She reports 5-6 hours of broken sleep nightly. - Goes to bed around 9:30 PM, wakes up around 2 AM for 30-40 minutes, then falls back asleep. - Currently using zaleplon for sleep. - Plan: a. Recommend trial of [id number] magnesium supplement (200 mg) to improve sleep quality. b. Encourage good sleep hygiene like consistent bed/wake times and limited screen time before bed. 3. Overeating - She reports overeating. - Patient mentions it balances out with Mounjaro Plan a. Encourage tracking food intake and identifying overeating triggers. b. Recommend consultation with a metal bonding crib attendant/diet itian for dietary guidance. c. Encourage regular physical activity. 4. General Health - No reported physical complaints like headache, nausea, vomiting, or diarrhea. - Plan: a. Continue monitoring general health at follow-ups. b. Encourage reporting any new/worsening symptoms promptly. 01/17/2024 Sleep disturbance (ICD-10 - G47.9) 1. Anxiety - She reports anxiety level at 6/10. - No suicidal/homicida l ideation, delusions, paranoia, or hallucinations. - Plan: a. Continue current anxiety management strategies. b. Encourage relaxation techniques and consider therapy if not already involved. 2. Sleep Disturbance - She reports 5-6 hours of broken sleep nightly. - Goes to bed around 9:30 PM, wakes up around 2 AM for 30-40 minutes, then falls back asleep. - Currently using zaleplon for sleep. - Plan: a. Recommend trial of pejr-[id number] magnesium supplement (200 mg) to improve sleep quality. b. Encourage good sleep hygiene like consistent bed/wake times and limited screen time before bed. 3. Overeating - She reports overeating. - Patient mentions it balances out with Mounjaro Plan a. Encourage tracking food intake and identifying overeating triggers. b. Recommend consultation with a metal bonding crib attendant/diet itian for dietary guidance. c. Encourage regular physical activity. 4. General Health - No reported physical complaints like headache, nausea, vomiting, or diarrhea. - Plan: a. Continue monitoring general health at follow-ups. b. Encourage reporting any new/worsening symptoms promptly. 01/06/2024 Major depressive disorder, recurrent severe without psychotic features (ICD-10 - F33.2) 1. Depression - She reports a depression rating of 4/10. - No recent medication changes. - Continue her current treatment plan and monitor her progress. 2. Anxiety - She reports an anxiety rating of 7/10, exacerbated by a recent stressor (Worlds issue). - She describes her anxiety as super high and is freaking out about the issue. - No recent medication changes. - Continue her current treatment plan and monitor her progress. - Encourage stress management techniques and consider therapy referral if needed. 3. Sleep - She reports approximately 6 hours of sleep nightly. - She experiences sporadic nightmares, not occurring every night. - Continue monitoring her sleep quality and consider adjusting her sleep hygiene if needed. 4. Appetite - She reports her appetite as all right with some fluctuations. - She mentions being on Mongero, which may affect her appetite. - Continue monitoring her appetite and consider nutritional counseling if significant changes occur. 5. Suicidality and Homicidality - She denies any thoughts of suicide, self-harm, or harming others. - Continue assessing her risk factors at future visits.. Follow-up: - Encourage her to contact the clinic if she has any concerns or experiences any changes in symptoms before her next appointment. 11/29/2023 Primary insomnia (ICD-10 - F51.01) 11/10/2023 Major depressive disorder, recurrent severe without psychotic features (ICD-10 - F33.2) Continue current treatmet plan. 11/01/2023 Major depressive disorder, recurrent severe without psychotic features (ICD-10 - F33.2) Continue current medications, esketamine treatments as scheduled. 10/21/2023 Major depressive disorder, recurrent severe without psychotic features (ICD-10 - F33.2) tolerates Spravato treatment well Spravato 84mg every 10 days you have a upcoming appointment for Spravato nasal spray on Please arrive 15 to 20 minutes before your appointment. Make sure you check in with the front line leader Please do not eat or drink 2 hours before your nasal spray appointment Nasal corticosteroid or nasal decongestant: If you require a nasal corticosteroid or nasal decongestant on the dosing day, please administer these medications at least 1 to 2-hour before your appointment time. Please make sure you have someone to drive you back home, as you are not allowed to drive on the day you receive Spravato. You are instructed not to engage in potentially hazardous activities, such as driving a motor vehicle or operating machinery, until the next day after a restful sleep 10/21/2023 Generalized anxiety disorder (ICD-10 - F41.1) tolerates Spravato treatment well Spravato 84mg every 10 days you have a upcoming appointment for Spravato nasal spray on Please arrive 15 to 20 minutes before your appointment. Make sure you check in with the front line leader Please do not eat or drink 2 hours before your nasal spray appointment Nasal corticosteroid or nasal decongestant: If you require a nasal corticosteroid or nasal decongestant on the dosing day, please administer these medications at least 1 to 2-hour before your appointment time. Please make sure you have someone to drive you back home, as you are not allowed to drive on the day you receive Spravato. You are instructed not to engage in potentially hazardous activities, such as driving a motor vehicle or operating machinery, until the next day after a restful sleep 09/20/2023 Major depressive disorder, recurrent, moderate (ICD-10 - F33.1) 09/20/2023 Generalized anxiety disorder (ICD-10 - F41.1) 09/14/2023 Major depressive disorder, recurrent severe without psychotic features (ICD-10 - F33.2) 09/03/2023 Major depressive disorder, recurrent, moderate (ICD-10 - F33.1) 09/03/2023 Generalized anxiety disorder (ICD-10 - F41.1) 09/03/2023 Post-traumatic stress disorder, chronic (ICD-10 - F43.12) 09/03/2023 Primary insomnia (ICD-10 - F51.01) 09/03/2023 Attention-defici t hyperactivity disorder, combined type (ICD-10 - F90.2) 08/30/2023 Major depressive disorder, recurrent severe without psychotic features (ICD-10 - F33.2) 08/30/2023 Generalized anxiety disorder (ICD-10 - F41.1) 08/19/2023 Major depressive disorder, recurrent severe without psychotic features (ICD-10 - F33.2) 08/19/2023 Generalized anxiety disorder (ICD-10 - F41.1) 08/17/2023 Major depressive disorder, recurrent severe without psychotic features (ICD-10 - F33.2) 08/17/2023 Generalized anxiety disorder (ICD-10 - F41.1) 08/12/2023 Major depressive disorder, recurrent severe without psychotic features (ICD-10 - F33.2) 08/12/2023 Generalized anxiety disorder (ICD-10 - F41.1) 08/04/2023 Major depressive disorder, recurrent severe without psychotic features (ICD-10 - F33.2) 07/27/2023 Major depressive disorder, recurrent severe without psychotic features (ICD-10 - F33.2) 07/27/2023 Generalized anxiety disorder (ICD-10 - F41.1) 07/27/2023 Post-traumatic stress disorder, chronic (ICD-10 - F43.12) 07/27/2023 Primary insomnia (ICD-10 - F51.01) 07/27/2023 Attention-defici t hyperactivity disorder, combined type (ICD-10 - F90.2) 07/20/2023 Major depressive disorder, recurrent severe without psychotic features (ICD-10 - F33.2) 07/20/2023 Generalized anxiety disorder (ICD-10 - F41.1) 07/20/2023 Post-traumatic stress disorder, chronic (ICD-10 - F43.12) 07/20/2023 Primary insomnia (ICD-10 - F51.01) 07/20/2023 Attention-defici t hyperactivity disorder, combined type (ICD-10 - F90.2) 06/21/2023 Major depressive disorder, recurrent, mild (ICD-10 - F33.0) 06/21/2023 Major depressive disorder, recurrent severe without psychotic features (ICD-10 - F33.2) 06/21/2023 Generalized anxiety disorder (ICD-10 - F41.1) 06/21/2023 Post-traumatic stress disorder, chronic (ICD-10 - F43.12) 06/21/2023 Primary insomnia (ICD-10 - F51.01) 06/21/2023 Attention-defici t hyperactivity disorder, combined type (ICD-10 - F90.2) 05/20/2023 Major depressive disorder, recurrent, mild (ICD-10 - F33.0) 05/20/2023 Major depressive disorder, recurrent severe without psychotic features (ICD-10 - F33.2) 05/20/2023 Generalized anxiety disorder (ICD-10 - F41.1) 05/20/2023 Post-traumatic stress disorder, chronic (ICD-10 - F43.12) 05/20/2023 Primary insomnia (ICD-10 - F51.01) 05/20/2023 Attention-defici t hyperactivity disorder, combined type (ICD-10 - F90.2) 09/06/2023 Major depressive disorder, recurrent, moderate (ICD-10 - F33.1) 09/06/2023 Generalized anxiety disorder (ICD-10 - F41.1) 09/06/2023 Post-traumatic stress disorder, chronic (ICD-10 - F43.12) 09/06/2023 Primary insomnia (ICD-10 - F51.01) 09/06/2023 Attention-defici t hyperactivity disorder, combined type (ICD-10 - F90.2) 08/09/2023 Major depressive disorder, recurrent severe without psychotic features (ICD-10 - F33.2) 08/09/2023 Generalized anxiety disorder (ICD-10 - F41.1) 08/02/2023 Major depressive disorder, recurrent severe without psychotic features (ICD-10 - F33.2) 08/02/2023 Generalized anxiety disorder (ICD-10 - F41.1) 08/02/2023 Post-traumatic stress disorder, chronic (ICD-10 - F43.12) 08/02/2023 Primary insomnia (ICD-10 - F51.01) 08/02/2023 Attention-defici t hyperactivity disorder, combined type (ICD-10 - F90.2) 07/30/2023 Major depressive disorder, recurrent severe without psychotic features (ICD-10 - F33.2) 12/29/2023 Attention-defici t hyperactivity disorder, combined type (ICD-10 - F90.2) atomoxetine 60mg daily adhd, she has gluacoma, no stimulants - cont atom 1. Treatment-resista nt depression and anxiety: - Continue Bupropion 150 mg daily - Continue Escitalopram 20 mg daily - Continue Vraylar 3 mg daily - Continue Spravato 84 mg every 10 days - Continue Lamotrigine 100 mg once a day at night Plan: - Monitor response to medications and adjust as needed - Complete FMLA paperwork for one day a week off for depression and anxiety treatment 2. Insomnia: - Continue Zolpidem 10 mg at bedtime Plan: - Encourage behavioral modifications, such as going for a walk before bed or taking a shower to change routine - Recommend staying up later even if partner wants patient to go to bed early 3. Glaucoma: Plan: - Reschedule eye doctor appointment as soon as possible - Emphasize the importance of timely appointments to prevent vision loss 4. FMLA paperwork: Plan: - Complete FMLA paperwork for one day a week off for depression and anxiety treatment - Fax paperwork to the appropriate [employer] party 6. Medication refills: Plan: - Refill Zolpidem 10 mg at bedtime for insomnia - Refill Lamotrigine 100 mg once a day at night for depression - Refill Bupropion 150 XL once a day for depression - Refill Vraylar 3 mg once a day for depression - Refill Escitalopram 20 mg daily for depression - Refill Spravato 84 mg every 10 days for depression - No refill needed for Atomoxetine 60 mg at this time 02/29/2024 Primary insomnia (ICD-10 - F51.01) zaleplon 10 mg capsule 1. Insomnia: - Patient reports difficulty falling asleep and staying asleep, averaging 4-5 hours of sleep per night. - Currently on trazodone, but reports it makes them feel aloof and does not improve sleep. Plan: - Continue zaleplon 10 mg at bedtime for sleep. - Refill prescription. - Reassess sleep quality at the next visit and consider alternative sleep aids if no improvement. 2. Anxiety and Depression: - Patient reports improvement in mood with Spravato treatments every 10 days. - No suicidal thoughts reported. Plan: - Continue Spravato 84 mg every 10 days. - Continue lamotrigine 100 mg daily, bupropion 150 mg once a day, Vraylar 3 mg daily, and escitalopram 20 mg daily. - Refill bupropion prescription. 3. ADHD: - Patient reports atomoxetine 60 mg daily is helpful. Plan: - Continue atomoxetine 60 mg daily. - Refill prescription. 4. Post-surgical pain: - Patient reports pain in the shoulder after recent surgery, which may be contributing to sleep difficulties. Plan: - Monitor pain levels and consider pain management options if pain persists or worsens. 5. Follow-up: - Schedule a follow-up appointment in 6 weeks to reassess sleep, mood, and overall well-being. - Continue Spravato treatments every 10 days, with a total of 8 treatments before the next visit. 05/01/2024 Major depressive disorder, recurrent severe without [...] Monitor overall physical health at future visits. 10/11/2023 Attention-defici t hyperactivity disorder, combined type (ICD-10 - F90.2) 04/25/2024 Primary insomnia (ICD-10 - F51.01) zaleplon 10 mg capsule 04/25/2024 Attention-defici t hyperactivity disorder, combined type (ICD-10 - F90.2) atomoxetine 60mg daily adhd, she has gluacoma, no stimulants - cont atom 10/11/2023 Post-traumatic stress disorder, chronic (ICD-10 - F43.12) continue weekly counseling with Krista 02/29/2024 Attention-defici t hyperactivity disorder, combined type (ICD-10 - F90.2) atomoxetine 60mg daily adhd, she has gluacoma, no stimulants - cont atom 1. Insomnia: - Patient reports difficulty falling asleep and staying asleep, averaging 4-5 hours of sleep per night. - Currently on trazodone, but reports it makes them feel aloof and does not improve sleep. Plan: - Continue zaleplon 10 mg at bedtime for sleep. - Refill prescription. - Reassess sleep quality at the next visit and consider alternative sleep aids if no improvement. 2. Anxiety and Depression: - Patient reports improvement in mood with Spravato treatments every 10 days. - No suicidal thoughts reported. Plan: - Continue Spravato 84 mg every 10 days. - Continue lamotrigine 100 mg daily, bupropion 150 mg once a day, Vraylar 3 mg daily, and escitalopram 20 mg daily. - Refill bupropion prescription. 3. ADHD: - Patient reports atomoxetine 60 mg daily is helpful. Plan: - Continue atomoxetine 60 mg daily. - Refill prescription. 4. Post-surgical pain: - Patient reports pain in the shoulder after recent surgery, which may be contributing to sleep difficulties. Plan: - Monitor pain levels and consider pain management options if pain persists or worsens. 5. Follow-up: - Schedule a follow-up appointment in 6 weeks to reassess sleep, mood, and overall well-being. - Continue Spravato treatments every 10 days, with a total of 8 treatments before the next visit. 12/29/2023 Major depressive disorder, recurrent, moderate (ICD-10 - F33.1) spravato 84mg every 10 days, lamotrigine 100 mg tablet - daily bupropion xl 150mg daily, escitalopram 20mg daily, vraylar 3mg daily 1. Treatment-resista nt depression and anxiety: - Continue Bupropion 150 mg daily - Continue Escitalopram 20 mg daily - Continue Vraylar 3 mg daily - Continue Spravato 84 mg every 10 days - Continue Lamotrigine 100 mg once a day at night Plan: - Monitor response to medications and adjust as needed - Complete FMLA paperwork for one day a week off for depression and anxiety treatment 2. Insomnia: - Continue Zolpidem 10 mg at bedtime Plan: - Encourage behavioral modifications, such as going for a walk before bed or taking a shower to change routine - Recommend staying up later even if partner wants patient to go to bed early 3. Glaucoma: Plan: - Reschedule eye doctor appointment as soon as possible - Emphasize the importance of timely appointments to prevent vision loss 4. FMLA paperwork: Plan: - Complete FMLA paperwork for one day a week off for depression and anxiety treatment - Fax paperwork to the appropriate alliance party 6. Medication refills: Plan: - Refill Zolpidem 10 mg at bedtime for insomnia - Refill Lamotrigine 100 mg once a day at night for depression - Refill Bupropion 150 XL once a day for depression - Refill Vraylar 3 mg once a day for depression - Refill Escitalopram 20 mg daily for depression - Refill Spravato 84 mg every 10 days for depression - No refill needed for Atomoxetine 60 mg at this time 04/25/2024 Major depressive disorder, recurrent, moderate (ICD-10 - F33.1) spravato 84mg every 10 days, lamotrigine 100 mg tablet - daily bupropion xl 150mg daily, escitalopram 20mg daily, vraylar 3mg daily 10/11/2023 Insomnia due to other mental disorder (ICD-10 - F51.05) 02/29/2024 Major depressive disorder, recurrent, moderate (ICD-10 - F33.1) spravato 84mg every 10 days, lamotrigine 100 mg tablet - daily bupropion xl 150mg daily, escitalopram 20mg daily, vraylar 3mg daily 1. Insomnia: - Patient reports difficulty falling asleep and staying asleep, averaging 4-5 hours of sleep per night. - Currently on trazodone, but reports it makes them feel aloof and does not improve sleep. Plan: - Continue zaleplon 10 mg at bedtime for sleep. - Refill prescription. - Reassess sleep quality at the next visit and consider alternative sleep aids if no improvement. 2. Anxiety and Depression: - Patient reports improvement in mood with Spravato treatments every 10 days. - No suicidal thoughts reported. Plan: - Continue Spravato 84 mg every 10 days. - Continue lamotrigine 100 mg daily, bupropion 150 mg once a day, Vraylar 3 mg daily, and escitalopram 20 mg daily. - Refill bupropion prescription. 3. ADHD: - Patient reports atomoxetine 60 mg daily is helpful. Plan: - Continue atomoxetine 60 mg daily. - Refill prescription. 4. Post-surgical pain: - Patient reports pain in the shoulder after recent surgery, which may be contributing to sleep difficulties. Plan: - Monitor pain levels and consider pain management options if pain persists or worsens. 5. Follow-up: - Schedule a follow-up appointment in 6 weeks to reassess sleep, mood, and overall well-being. - Continue Spravato treatments every 10 days, with a total of 8 treatments before the next visit. 02/07/2024 Other Assessment and plan reviewed with patient Call for problems with medication, side effects or need for dosage change Compliance issues reviewed Discussed the risks/benefits of this medication Discussed medication side effects Return if symptoms worsen Treatment options reviewed. discussed that it can take weeks to see full therapeutic effects of psychotropic medications. discussed when to seek emergency services. discussed crisis prevention hotline 982. 1. Depression - Patient rates depression -11/16. - Plan: a. Continue current antidepressant medication. b. Monitor mood and depressive symptoms at next appointment. 2. Anxiety - Patient rates anxiety 09/16. - Plan: a. Continue current anxiolytic medication. b. Encourage relaxation techniques. c. Consider therapy referral if needed. 3. Sleep Disturbance - Patient reports inconsistent sleep patterns. - Tried melatonin 5mg (Gigi gummies) without improvement. - Plan: a. Recommend magnesium supplementation for REM sleep quality. b. Reassess sleep patterns at next appointment. c. Consider alternative sleep aids if needed. 4. Appetite Disturbance - Patient reports overeating or undereating, no in-between. - Plan: a. Encourage balanced diet. b. Consider metal bonding crib attendant referral if needed. c. Monitor appetite changes at next appointment. 5. Paranoia - Patient reports slight paranoia that something bad will happen. - Plan: a. Continue monitoring paranoia at next appointment. b. Consider therapy referral if worsens or impacts functioning. 02/28/2024 Other Assessment and plan reviewed with patient Call for problems with medication, side effects or need for dosage change Compliance issues reviewed Discussed the risks/benefits of this medication Discussed medication side effects Return if symptoms worsen Treatment options reviewed. discussed that it can take weeks to see full therapeutic effects of psychotropic medications. discussed when to seek emergency services. discussed crisis prevention hotline 988. 1. Depression - Patient rates depression at 6 out of 10. - No thoughts of suicide, self-harm, or harming others. - No hallucinations, delusions, or paranoia. - Continue current antidepressant medication regimen. - Monitor depressive symptoms and adjust treatment as needed. - Encourage regular physical activity and social interactions. 2. Anxiety - Patient rates anxiety at 4 out of 10. - Continue current anxiolytic medication regimen. - Monitor anxiety symptoms and adjust treatment as needed. - Encourage relaxation techniques (deep breathing, mindfulness meditation). 3. Sleep Disturbance - Difficulty falling asleep, staying asleep, and waking up too early. - Approximately 4-5 hours of sleep per night. - Wakes up after first sleep cycle, unable to go back to sleep. - Appointment with senior counsel tomorrow to discuss sleep issues. - Encourage good sleep hygiene (consistent schedule, relaxing bedtime environment). 4. Appetite Disturbance - Reports appetite being all over the place, with periods of overeating and not eating. - Monitor appetite and eating habits. - Encourage balanced diet and regular meal schedule. - Consider referral to metal bonding crib attendant if issues persist. 03/30/2024 Other continue current treatment as prescribed by prim psychiatric care provider. 1. Major Depressive Disorder - Patient reports depression rating of 9/10 this week. - Continue current medications as prescribed by primary psychiatric care provider. - encouraged therapy services. 2. Generalized Anxiety Disorder - Patient reports anxiety rating of 6/10. - Continue current medications as prescribed by primary psychiatric care provider. 3. Insomnia - Patient reports difficulty sleeping due to constant worrying and racing thoughts. - Continue current medication as prescribed by primary psychiatric care provider - encouraged sleep hygiene. 4. Overeating - Patient reports overeating. - Encourage patient to maintain a balanced diet. 5. Medication Metabolism - Patient inquires about genetic testing for medication metabolism. - Inform patient about test's ability to determine metabolism speed, not medication efficacy. - Advise patient to request test during next appointment with Alexei. 6. Safety Assessment - Patient denies thoughts of suicide, self-harm, or harming others. - No reported hallucinations, delusions, or paranoia. 04/10/2024 Other continue current treatment as prescribed by primary psychiatric care provider. 1. Major Depressive Disorder - Patient reports depression severity at 7-8/10. - Plan: a. Continue current antidepressant medication. b. Encourage regular physical activity and psychotherapy. 2. Generalized Anxiety Disorder - Patient reports anxiety severity at 5-6/10. - Plan: a. Continue current anxiolytic medication. b. Encourage relaxation techniques and cognitive-behavio ral therapy. 3. Sleep - Patient started to report sleep duration but was interrupted. - Plan: a. Assess sleep hygiene and provide recommendations for improvement. 4. Appetite appetite reported as decreased r/t Mounjaro use. - Plan: a. Assess for changes in appetite and weight. b. Encourage a balanced diet and regular meals. 5. Physical Complaints - No information provided on new physical complaints. - Plan: a. Assess for any new or worsening physical symptoms. b. Refer to primary care provider if needed. 6. Medication Management - No reported medication changes. - Plan: a. Review current medications and dosages. b. Monitor for side effects and effectiveness. 7. Safety - Patient denied thoughts of suicide, self-harm, or harm to others. - Plan: a. Continue to monitor for any changes in mental status or risk factors. 8. Psychosis - No information provided on hallucinations, delusions, or paranoia. - Plan: a. Assess for presence of psychotic symptoms. 05/01/2024 Other continue current treatment as prescribed [...] health at future visits. Plan Of Treatment Next Appt Details Provider Name:Marciano Caal, 05/22/2024 03:00:00 PM, [address], [address], [phone], Provider Name:Marciano Caal, 06/01/2024 03:00:00 PM, [address], [facility] [address], [address], Provider Name:Marciano Caal, 06/12/2024 03:00:00 PM, [address], [address], [phone], Provider Name:Marciano Caal, 06/22/2024 03:00:00 PM, [address], [facility] [address], [place], [address], Provider Name:Mitesh pierre, 06/26/2024 02:30:00 PM, [facility], [address], [place], [address], Provider Name:Marciano Gómez Caal, 07/03/2024 03:00:00 PM, [address], [address], [place], [address], Insurance Providers Payer Name Payer Address Payer Phone Subscriber Number Group Number Insured Name Patient Relationship to Insured Coverage Start Date Coverage End Date bs-Ga Ppo [address] [place] [address] [id number] [address], [facility] [place] Self - patient is the insured [facility] Benefit [facility] [employer] [address] [place] [phone] [id number] FERNANDO VASQUEZ Spouse - patient is the spouse of the insured Medications Administered Medication Instructions Date of Administration Dosage Notes Spravato (84 MG Dose) 10/11/2023 84 mg Spravato (84 MG Dose) 10/21/2023 84 mg Spravato (84 MG Dose) 11/01/2023 84 mg Spravato (84 MG Dose) 11/10/2023 84 mg Spravato (84 MG Dose) 12/02/2023 84 mg Spravato (84 MG Dose) 12/13/2023 84 mg Spravato (84 MG Dose) 01/06/2024 84 mg Spravato (84 MG Dose) 01/17/2024 84 mg Spravato (84 MG Dose) 01/28/2024 84 mg Spravato (84 MG Dose) 02/07/2024 84 mg Spravato (84 MG Dose) 02/17/2024 84 mg Spravato (84 MG Dose) 02/28/2024 84 mg Spravato (84 MG Dose) 03/09/2024 84 mg Spravato (84 MG Dose) 03/20/2024 84 mg Spravato (84 MG Dose) 03/30/2024 84 mg Spravato (84 MG Dose) 04/10/2024 84 mg Spravato (84 MG Dose) 05/01/2024 84 mg Spravato (84 MG Dose) 05/12/2024 84 mg Medical (General) History Medical History History ICD Code Problems: Attention deficit hyperactivit y disorder, combined type Chronic post-traumatic stress disorder Generalized anxiety disorder Glaucoma Mild recurrent major depression Moderate recurrent major depression Nightmares associated with chronic post- traumatic stress disorder Polycystic ovary syndrome Primary insomnia Severe recurrent major depression withou t psychotic features Suicidal thoughts , Surgical History Surgery Date(Month/Year) Removal of gallbladder (71290) Tonsillectomy (112808393) Xcapsl ctrc rmvl cplx wo ecp (23734) Tonsilectomy/adenoids Unlisted procedure breast () Breast surgery () 01/08/2020 Other 04/18/2020 right rotator cuff 02/2024
--- OUTSIDE RECORDS SUMMARY | 2024-05-13 22:19 | XMS_ITS | Encounter Summary ---
Author Organization [facility] Address [address] [place] [address] Care Team Providers Care Secret Code Expert Name Role Phone Martha Lawrence MD Primary Care Provider Kathy Corley Unavailable [phone] Gibran David Unavailable Encounter Details Date Type Department Care Team (Latest Contact Info) Description 12/30/2023 Travel Social History Tobacco Use Types Packs/Day [...] st Contact Info) Description 06/07/2024 1:00 PM SALON ASSISTANT Office Visit [facility] - Ophthalmology [address] [place] [phone] Chrystal Roa MD [address] [place] [address] [place] [phone] 06/23/2024 2:00 PM SALON ASSISTANT Office Visit [facility] Ophthalmology [address] [place] [phone] Fidel Moss MD [address] [place] [phone] documented as of this encounter Visit Diagnoses Not on filedocumented in this encounter Care Teams Secret Code Expert Relationship Specialty Start Date End Date Martha Lawrence MD PCP - General 03/21/20 Kathy Corley, MARBLEIZING MACHINE TENDER-FAST FOOD SHIFT SUPERVISOR [address] [place] [address] [place] [phone] Nurse Practitioner Ophthalmology 12/14/22 Gibran David [address] [address] 12/14/22 documented as of this encounter
--- OUTSIDE RECORDS SUMMARY | 2024-05-13 22:19 | XMS_ITS | Encounter Summary ---
Author Organization [facility] Address [address] [place] [address] Care Team Providers Care Buggy Operator Name Role Phone Martha Lawrence MD Primary Care Provider Kathy Corley Unavailable Gibran David Unavailable Encounter Details Date Type Department Care Team (Latest Contact Info) Description 06/22/2023 2:40 PM CURATORIAL SPECIALIST Clinical Support [facility] Ophthalmology [address] [place] [phone] Fidel Moss MD [address] [place] [phone] Anophthalmos (Primary Dx) Social History Tobacco Use [...] st Contact Info) Description 06/07/2024 1:00 PM CURATORIAL SPECIALIST Office Visit [facility] - Ophthalmology [address] [place] [phone] Chrystal Roa MD [address] [place] [address] [place] [phone] 06/23/2024 2:00 PM CURATORIAL SPECIALIST Office Visit [facility] Ophthalmology [address] [place] [phone] Fidel Moss MD [address] [place] [phone] Pending Results Name Type Priority Associated Diagnoses Date /Time BOURGEOIS AUTO VISUAL FIELD EXTENDED Ophthalmology Routine Anophthalmos 06/22/2023 2:31 PM CURATORIAL SPECIALIST documented as of this encounter Visit Diagnoses Diagnosis Anophthalmos- Primary documented in this encounter Care Teams Buggy Operator Relationship Specialty Start Date End Date Martha Lawrence MD PCP - General 03/21/20 Kathy Corley, ENGINE HOSTLER-SENIOR PROCUREMENT MANAGER [address] [place] [address] [place] [phone] Nurse Practitioner Ophthalmology 12/14/22 Gibran David [address] [place] [address] 12/14/22 documented as of this encounter
--- OUTSIDE RECORDS SUMMARY | 2024-05-13 22:19 | XMS_ITS | Encounter Summary ---
Author Organization [facility] Address [address] [place] [address] Care Team Providers Care Network Desktop Support Specialist Name Role Phone Martha Lawrence MD Primary Care Provider [phone] Kathy Corley Unavailable [phone] Gibran David Unavailable Reason for Visit * Reason Comments Glaucoma Encounter Details Date Type Department Care Team (Late st Contact Info) Description 01/19/2023 11:00 AM CDT Office Visit [facility] - Ophthalmology [address] [place] [address] [phone] Secondary glaucoma, mild stage, right (Primary Dx); Anophthalmos of left eye Social History Tobacco Use Types Packs/Day Years [...] No 03/31/2022 documented as of this encounter Progress Notes * Ron Conroy MD - 01/19/2023 12:36 PM CDT Images from the original note were not included. Ophthalmology Office Note - Glaucoma Clinic Subjective Cesario Jewell is an 43 year old Chief Complaint Patient presents with ??? Glaucoma Cesario Jewell is a 43 year old female who presents for glaucoma work up. New MRX today Gtts: Latanoprost QHS OD Denies pain or pressure. States new recent noticeable floaters OD that remain constant. States she has a recurrent puff of smoke that remains in vision OD will last for up to 10 seconds. As many as15 manifestations in one day on Sat. Patient feels like her field of vision peripherally is shrinking. She feels like she doesn't see the edges on her work monitor and is bumping into things more often. Current Outpatient Medications Medication Sig Dispense Refill ??? albuterol HFA (PROVENTIL;VENTOLIN;PROAIR) 108 (90 Base) MCG/ACT inhaler Inhale 2 (two) puffs bymouth every 6 hours as needed for Shortness of Breath or Wheezing Reasons: Asthma 1 Inhaler 1 ??? atomoxetine (Strattera) 60 MG capsule Take 1 (one) capsule by mouth once daily Reasons: Attention Deficit Hyperactivity Disorder 30 capsule 1 ??? buPROPion XL 24hr (WELLBUTRIN-XL) 150 MG tablet Take 1 (one) tablet by mouth once daily Reasons: Depression 30 tablet 2 ??? cariprazine (Vraylar) 1.5 MG capsule Take 1 (one) capsule by mouth once daily ??? Cholecalciferol 125 MCG (5000 UT) Vitamin D3 125 mcg (5,000 unit) tablet Take 1 tablet every day by oral route in the morning for 30 days. ??? clindamycin (Cleocin) 300 MG capsule TAKE 1 TABLET BY MOUTH THREE TIMES A DAY FOR 7 DAYS ??? dexAMETHasone (Decadron) 1 MG tablet ??? docusate sodium (Colace) 100 MG capsule TAKE 1 SOFTGEL ORALLY TWICE A DAY ??? escitalopram (LEXAPRO) 20 MG tablet Take 1 (one) tablet by mouth once daily Reasons: Major Depressive Disorder 30 tablet 1 ??? HYDROcodone-acetaminophen ([place]) 7.5-325 MG tablet Take 1 (one) tablet by mouth every 6 hours as needed pain ??? lamoTRIgine (LaMICtal) 100 MG tablet Take 1 (one) tablet by mouth at bedtime Reasons: Mood Disorder 30 tablet 1 ??? latanoprost (XALATAN) 0.005 % ophthalmic solution Instill 1 (one) drop into right eye at bedtime 7.5 mL 4 ??? montelukast (Singulair) 10 MG tablet Take 1 (one) tablet by mouth at bedtime Reasons: Asthma 30tablet 1 ??? nebivolol (Bystolic) 10 MG tablet Take 1 (one) tablet by mouth once daily ??? efcmxima-xnwedjiba-fysnmulg (Maxitrol) ophthalmic ointment Instill into left eye 2 times daily as needed 3.5 g 3 ??? omeprazole (PriLOSEC) 20 MG capsule Take 1 (one) capsule by mouth 2 times daily, before breakfast and supper ??? ramelteon (Rozerem) 8 MG tablet Take 1 (one) tablet by mouth once daily ??? rOPINIRole (Requip) 0.5 MG tablet TAKE 1 TABLET BY MOUTH EVERY DAY AT BEDTIME FOR 30 DAYS ??? semaglutide (Rybelsus) 7 MG tablet Take 1 (one) tablet by mouth every morning ??? Semaglutide(0.25 or 0.5MG/DOS) 2 MG/3ML Solution Pen-injector (Ozempic (0.25 or 0.5 MG/DOSE)) Inject 0.5 mg every week by subcutaneous route at dinner for 90 days. ??? spironolactone (ALDACTONE) 50 MG tablet ??? traZODone (Desyrel) 100 MG tablet TAKE 1-2 TABLETS BY MOUTH AT BEDTIME NEEDED ??? traZODone (DESYREL) 150 MG tablet Take 150 (one hundred fifty) mg by mouth at bedtime Reasons: Major Depressive Disorder 30 tablet 1 ??? Zenpep [id number] units capsule TAKE 2 CAPSULES WITH MEALS AND 1 CAPSULE WITH SNACKS No current facility-administered medications for this visit. [...] the tube) ??? Tonsillectomy and Adenoidectomy ??? Vitrectomy Right 04/18/2020 Right; pars plana [...] - Linear) Right Left Dist cc 20/40 +2 Dist ph cc ni Tonometry (Tonopen, 12:27 PM) Right Left Pressure 19 pros Tonometry #2 (GAT, 12:49 PM) Right Left Pressure 18 Pupils Dark Light Shape React APD Right 3 2 Round Brisk None Left pros Visual Bay Left Right Full Restrictions Total superior temporal, inferior temporal, superior nasal, inferior nasal deficiencies Extraocular Movement Right Left Full pros -- -- -- -- -- -- -- -- -- -- -- -- -- -- -- -- Neuro/Psych Oriented x3: Yes Mood/Affect: Normal Dilation Both eyes: 1.0% Mydriacyl @ 12:27 PM Slit Lamp and Fundus Exam External Exam Right Left External Normal Normal Slit Lamp Exam Right Left Lids/Lashes Normal Normal Conjunctiva/Sclera Bleb formation over ahmed ST Prosthetic Cornea Clear, horizontal stria inferiorly, vertical stria laterally Anterior Chamber Deep and quiet Iris Round and reactive Lens Sulcus lens Vitreous Post PPV, tube in sulcus Fundus Exam Poor dilation Refraction Wearing Rx [facility] Right -2.75 +1.50 140 Left Balance Type: SVL Manifest Refraction (Auto) [facility] Dist VA Right -2.75 +1.50 140 20/40 Left Balance Manifest Refraction #2 [facility] Dist VA Right -2.75 +1.25 130 20/25-2 Left Balance OCT 01/19/2023 consistent with stable mild glaucoma changes right eye Assessment/Plan Micole Danette Jewell is a 43 year old female #Congenital glaucoma OD, mild stage, monocular - Risk Factors: ??? FHx??mom? Race??AA ??? Steroid use??denies? Trauma??denies? Refractive error??-2.75 ??? YEMI / COPD / Blood Transfusion -??no - Pachy:??641 - Gonio??RK (06/26/21):??open to SS 360 with [...] deficit, no specific nasal depressions. VFI 98% ?? Disc photos (06/26/21) - mild cupping ?? - Synopsis:??41 year old??yo monocular pt with h/o congenital glaucoma. Tmax 54, and mostly in low 20s after Ahmed in 2020. Was started prior on combigan BID with IOPn mid-teens. Switched to Lat QHS 2/2 cost issues last visit, IOP low 20s today. HVF full today OD. Will plan on repeating HVF every 6month ?? #Pseudophakia OD - 3 Piece in the [...] dilated today, noRT/RD appreciated despite poor dilation ?? Plan: - Monocular precautions?? - Continue Latanoprost QHS OD - Seen by Dr. Roa 08/2021, meant to f/u in 9 months but not scheduled. Message sent to Dr. Roa asking when she would like her to f/u. - RD/vit heme symptoms reviewed, patient instructed to call immediatly/go to the ED if symptoms occur - NA with glaucoma for HVF LAYA Faster and DFE. Tentative plan to repeat HVF every 6 month Please see below in blue text for attending attestation and changes to plan. Ephraim Conroy MD Ophthalmology Resident ATTENDING NOTE....... I reviewed and confirmed the [...] corrections and additional test interpretation (if any): Possibly controlled glaucoma relatively mild right eye with functioning Ahmed implant plus medication and tube in the vitreous cavity From Check-out note today: N/A glaucoma, dilate OD X 3 (poor dilation today), size 3 HVF 24-2, B-scan OD to inspect peripheral retina Test interpretation: ??? As noted above for today's date highlighted with green text (if any testing performed today). ??? 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 Generalized anxiety [...] eye. Fidel Moss MD 06/21/2020 10:19 AM ??? Congenital cataract of both eyes Priority: Not Prioritized By history patient had congenital cataract extraction both eyes at about 6 months of age. Fidel Moss MD 06/21/2020 10:21 AM ??? Anophthalmos of left eye Priority: Not Prioritized Patient with history of retinal detachment that occurred soon after congenital cataract extraction left eye in the patient has subsequently undergone enucleation with prosthesis. Fidel Moss MD 06/21/2020 10:21 AM ??? Acute posthemorrhagic [...] Nasal saline spray (Simply saline, Little Remedies, [place], [place]) 2 second sprays or 2 squeezes into each nostril while looking down over the sink, do not need to sniff in. Follow up in 6 months, earlier with any ear drainage 07/06/2019 T-tubes placed in Office ??? Acute recurrent maxillary sinusitis 05/26/2019 Priority: Not Prioritized Last Assessment & Plan: Take Cefdinir with a meal daily Nasal saline spray (Simply saline, Little Remedies, [place], [place]) 2 second sprays or 2 squeezes into [...] Nasal saline spray (Simply saline, Little Remedies, [place], [place]) 2 second sprays or 2 squeezes into [...] obesity with body mass index of 40.0-49.9 ([facility]) 03/16/2019 Priority: Not Prioritized ??? Polycystic [...] ??? Major depressive disorder, recurrent episode, severe ([facility]) 09/23/2013 Priority: Not Prioritized DEPRESSIVE DISORDER NEC ??? Impaired fasting glucose 09/23/2013 Priority: Not Prioritized IMPAIRED FASTING GLUCOSE ??? 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/23/2013 Priority: Not Prioritized MIXED HYPERLIPIDEMIA ??? Depressive disorder 09/23/2013 Priority: Not Prioritized DEPRESSIVE DISORDER NEC ??? Iron deficiency anemia 02/18/2012 Priority: Not Prioritized Iron deficiency anemia documented in this encounter Plan of Treatment Upcoming Encounters Date Type Department Care Team (Late st Contact Info) Description 06/07/2024 1:00 PM DISTRIBUTION FIELD TECHNICIAN Office Visit [facility] - Ophthalmology [address] [place] [address] [phone] Chrystal Roa MD [facility] [place] [phone] 06/23/2024 2:00 PM DISTRIBUTION FIELD TECHNICIAN Office Visit [facility] - Ophthalmology [address] [place] [address] [phone] Fidel Moss MD [address] [place] [phone] Scheduled Orders Name Type Priority Associated Diagnoses Orde r Schedule BOURGEOIS AUTO VISUAL FIELD EXTENDED Ophthalmology Routine Secondary glaucoma, mild stage, right Expected: 01/19/2023, Expires: 03/21/2024 documented as of this encounter Results * OPTIC NERVE ANALYSIS OCT (01/19/2023 12:01 PM CDT) Anatomical Region Laterality Modality Head External-Camera Photography Narrative 01/19/2023 12:40 PM CDT Images from the original result were not included. Thin RNFL OD, stable on GPA since 2019. Fidel Moss MD OPHTHALMOLOGY SCHED ORD W PACS documented in this encounter Visit Diagnoses Diagnosis Secondary glaucoma, mild stage, right- Primary Anophthalmos of left eye Clinical anophthalmos, unspecified Secondary glaucoma, mild stage, right- Primary documented in this encounter Care Teams Network Desktop Support Specialist Relationship Specialty Start Date End Date Martha Lawrence MD PCP - General 03/21/20 Kathy Corley, ALUMINUM BOAT ASSEMBLY SUPERVISOR-AUTO ADJUDICATION SPECIALIST [address] [facility] [place] [phone] Nurse Practitioner Ophthalmology 12/14/22 Gibran David [address] [place] [address] 12/14/22 documented as of this encounter
--- OUTSIDE RECORDS SUMMARY | 2024-05-13 22:19 | XMS_ITS | Patient Health Record ---
Author Organization [facility] Address [address] [place] [address] Care Team Providers Care Payable Representative Name Role Phone Aylin Nguyen Primary Care Provider Reason For Referral No Information Plan Of Treatment No Information Insurance Providers Payer Name Payer Address Payer Phone Subscriber Number Group Number Insured Name Patient Relationship to Insured Coverage Start Date Coverage End Date [facility] [address] [place] [address] [id number] Cesario Jewell Self - patient is the insured
--- OUTSIDE RECORDS SUMMARY | 2024-05-13 22:20 | XMS_ITS | Encounter Summary ---
Author Organization [facility] Address [address] [place] [address] Care Team Providers Care Production Assembler Name Role Phone Martha Lawrence MD Primary Care Provider [phone] Encounter Details Date Type Department Care Team (Latest Contact Info) Description 06/05/2022 Travel Social History Tobacco Use Types Packs/Day [...] on file Sexual Orientation Not on file COVID-19 Exposure Response Date Recorded In the last 10 days, have yo u been in contact with someone who was confirmed or suspected to have Coronavirus/COVID-19? No / Unsure 06/05/2022 8:27 AM AOC DIRECTOR INTELLIGENCE OFFICER documented as of this encounter Functional Status [...] st Contact Info) Description 06/07/2024 1:00 PM AOC DIRECTOR INTELLIGENCE OFFICER Office Visit [facility] - Ophthalmology [address] [place] [address] [phone] Chrystal Roa MD [address] [place] [address] [place] [phone] 06/23/2024 2:00 PM AOC DIRECTOR INTELLIGENCE OFFICER Office Visit [facility] - Ophthalmology [address] [place] [phone] Fidel Moss MD [address] [place] [phone] documented as of this encounter Visit Diagnoses Not on filedocumented in this encounter Care Teams Production Assembler Relationship Specialty Start Date End Date Martha Lawrence MD PCP - General 03/21/20 documented as of this encounter
--- OUTSIDE RECORDS SUMMARY | 2024-05-13 22:20 | XMS_ITS | Encounter Summary ---
Author Organization [facility] Address [address] [place] [address] Care Team Providers Care Colorist Formulator Name Role Phone Martha Lawrence MD Primary Care Provider [phone] Encounter Details Date Type Department Care Team (Latest Contact Info) Description 08/07/2022 Travel Social History Tobacco Use Types Packs/Day [...] suspected to have Coronavirus/COVID-19? No / Unsure 08/07/2022 11:24 AM CDT documented as of this encounter Functional Status [...] st Contact Info) Description 06/07/2024 1:00 PM CAR PACKER Office Visit [facility] - Ophthalmology [address] [place] [phone] Chrystal Roa MD [address] [place] [place] [address] [place] [phone] 06/23/2024 2:00 PM CAR PACKER Office Visit [facility] - Ophthalmology [address] [place] [phone] Fidel Moss MD [address] [place] [phone] documented as of this encounter Visit Diagnoses Not on filedocumented in this encounter Care Teams Colorist Formulator Relationship Specialty Start Date End Date Martha Lawrence MD PCP - General 03/21/20 documented as of this encounter
--- OUTSIDE RECORDS SUMMARY | 2024-05-13 22:20 | XMS_ITS | Encounter Summary ---
Author Organization [facility] Address [address] [facility] [place] [address] Care Team Providers Care City Maintenance Manager Name Role Phone Martha Lawrence MD Primary Care Provider [phone] Encounter Details Date Type Department Care Team (Late st Contact Info) Description 04/07/2021 Orders Only [facility] Phys Standard [address] [place], [place] [phone] Shade Reddy MD [address] [place], [place] [phone] Social History Tobacco Use Types Packs/Day Years Used Date Smoking Tobacco: Never Smokeless Tobacco: Never Alcohol Use Standard Drinks/Week Comments Never 0 (1 standard drink = 0.6 oz pur e alcohol) AUDIT-C Answer Date Recorded Q1: How often do you have a drink containing alc ohol? Never 04/16/2020 Average Number of Drinks Not on file 020 Frequency of Binge Drinking Not on file 12/2019 Sex and Gender Information Value Date Recorded Sex Assigned at Not on file Gender Identity Not on file Sexual Orientation Not on file COVID-19 Exposure Response Date Recorded In the last month, have you been in contact with someone who was confirmed or suspected to have Coronavirus / COVID-19? No / Unsure 03/31/2021 12:54 PM SHEET METAL LAYOUT WORKER documented as of this encounter Functional Status Functional Status Response Date of Assess ment Is person deaf or have serious hearing difficult y? No 09/23/2020 Is person blind or have serious difficulty seein g? Yes 09/23/2020 Does person have serious dif ficulty walking/climbing stairs? No 09/23/2020 Does person have difficulty dressing/bathing? No 09/23/2020 Does person have difficulty doing errands alone? Yes 09/23/2020 Cognitive Status Response Date of Assessm ent Does person have difficulty concentrating/remembering/making decisions? No 09/23/2020 documented as of this encounter Plan of Treatment Upcoming Encounters Date Type Department Care Team (Late st Contact Info) Description 06/07/2024 1:00 PM SHEET METAL LAYOUT WORKER Office Visit [facility] - Ophthalmology [address] [place] [phone] Chrystal Roa MD [address] [place] [address] [place] [phone] 06/23/2024 2:00 PM SHEET METAL LAYOUT WORKER Office Visit [facility] - Ophthalmology [address] [place] [phone] Fidel Moss MD [address] [place] [phone] documented as of this encounter Visit Diagnoses Not on filedocumented in this encounter Care Teams City Maintenance Manager Relationship Specialty Start Date End Date Martha Lawrence MD PCP - General 03/21/20 documented as of this encounter
--- OUTSIDE RECORDS SUMMARY | 2024-05-13 22:20 | XMS_ITS | Encounter Summary ---
Author Organization [facility] Address [address] [place] [address] Care Team Providers Care Mining Machinery Assembler Name Role Phone Martha Lawrence MD Primary Care Provider [phone] Encounter Details Date Type Department Care Team (Latest Contact Info) Description 04/06/2022 Travel Social History Tobacco Use Types Packs/Day Years Used Date Smoking Tobacco: Never Smokeless Tobacco: Never Alcohol Use Standard Drinks/Week Comments Never 0 (1 standard drink = 0.6 oz pur e alcohol) AUDIT-C Answer Date Recorded Q1: How often do you have a drink containing alc ohol? Monthly or less 03/31/2022 Q2: How many drinks containi ng alcohol do you have on a typical day when you are drinking? 5 or 6 03/31/2022 Q3: How often do you have si x or more drinks on one occasion? Less than monthly 03/31/2022 PHQ-2 Answer Date Recorded PHQ2 TOTAL SCORE 6 03/31/2022 Sex and Gender Information Value Date Recorded Sex Assigned at Not on file Gender Identity Not on file Sexual Orientation Not on file COVID-19 Exposure Response Date Recorded In the last 10 days, have yo u been in contact with someone who was confirmed or suspected to have Coronavirus/COVID-19? No / Unsure 04/06/2022 7:04 AM HARVEST CONTRACTOR documented as of this encounter Functional Status [...] st Contact Info) Description 06/07/2024 1:00 PM HARVEST CONTRACTOR Office Visit [facility] - Ophthalmology [address] [place] [phone] Chrystal Roa MD [address] [place] [address] [place] [phone] 06/23/2024 2:00 PM HARVEST CONTRACTOR Office Visit [facility] - Ophthalmology [address] [place] [phone] Fidel Moss MD [address] [place] [place] [phone] documented as of this encounter Visit Diagnoses Not on filedocumented in this encounter Care Teams Mining Machinery Assembler Relationship Specialty Start Date End Date Martha Lawrence MD PCP - General 03/21/20 documented as of this encounter
--- OUTSIDE RECORDS SUMMARY | 2024-05-13 22:20 | XMS_ITS | Encounter Summary ---
Author Organization [facility] Address [address] [place] [address] Care Team Providers Care Software Sales Consultant Name Role Phone Martha Lawrence MD Primary Care Provider [phone] Encounter Details Date Type Department Care Team (Latest Contact Info) Description 04/27/2022 Travel Social History Tobacco Use Types Packs/Day [...] suspected to have Coronavirus/COVID-19? No / Unsure 04/27/2022 2:08 PM BEARING MACHINE OPERATOR documented as of this encounter Functional Status [...] st Contact Info) Description 06/07/2024 1:00 PM BEARING MACHINE OPERATOR Office Visit [facility] - Ophthalmology [address] [place] [phone] Chrystal Roa MD [address] [place] [address] [place] [phone] 06/23/2024 2:00 PM BEARING MACHINE OPERATOR Office Visit [facility] - Ophthalmology [address] [place] [phone] Fidel Moss MD [address] [place] [phone] documented as of this encounter Visit Diagnoses Not on filedocumented in this encounter Care Teams Software Sales Consultant Relationship Specialty Start Date End Date Martha Lawrence MD PCP - General 03/21/20 documented as of this encounter
--- OUTSIDE RECORDS SUMMARY | 2024-05-13 22:20 | XMS_ITS | Encounter Summary ---
Author Organization [facility] Address [address] [facility] [place] [address] Care Team Providers Care Investment Banking Manager Name Role Phone Martha Lawrence MD Primary Care Provider [phone] Encounter Details Date Type Department Care Team (Late st Contact Info) Description 04/08/2021 Orders Only [facility] Phys Standard [id number] [place], [place] [phone] Shade Reddy MD [address] [place], [place] [phone] Social History Tobacco Use Types Packs/Day Years [...] COVID-19? No / Unsure 03/31/2021 12:54 PM OYSTER SHIPPER documented as of this encounter Functional Status [...] st Contact Info) Description 06/07/2024 1:00 PM OYSTER SHIPPER Office Visit [facility] - Ophthalmology [address] [place] [phone] Chrystal Roa MD [address] [place] [address] DEPT [place] [phone] 06/23/2024 2:00 PM OYSTER SHIPPER Office Visit [facility] - Ophthalmology [address] [place] [phone] Fidel Moss MD [address] [place] [phone] documented as of this encounter Visit Diagnoses Not on filedocumented in this encounter Care Teams Investment Banking Manager Relationship Specialty Start Date End Date Martha Lawrence MD PCP - General 03/21/20 documented as of this encounter
--- OUTSIDE RECORDS SUMMARY | 2024-05-13 22:20 | XMS_ITS | Encounter Summary ---
Author Organization [facility] Health Address [address] [place] [address] Care Team Providers Care High [employer] Learning Support Teacher Name Role Phone Martha Lawrence MD Primary Care Provider [phone] Encounter Details Date Type Department Care Team (Latest Contact Info) Description 11/12/2020 Travel Social History Tobacco Use Types Packs/Day [...] have Coronavirus / COVID-19? No / Unsure 11/12/2020 3:33 PM CDT documented as of this encounter Functional [...] st Contact Info) Description 06/07/2024 1:00 PM BRAND MARKETING MANAGER Office Visit [facility] Ophthalmology [address] [place] [phone] Chrystal Roa MD [address] [place] [address] [place] [phone] 06/23/2024 2:00 PM BRAND MARKETING MANAGER Office Visit [facility] - [facility]mology [address] [place] [phone] Fidel Moss MD [address] [place] [address] [phone] documented as of this encounter Visit Diagnoses Not on filedocumented in this encounter Care Teams High School Learning Support Teacher Relationship Specialty Start Date End Date Martha Lawrence MD PCP - General 03/21/20 documented as of this encounter
--- OUTSIDE RECORDS SUMMARY | 2024-05-13 22:20 | XMS_ITS | Encounter Summary ---
Author Organization [facility] Address [address] [place] [address] Care Team Providers Care City Auditor Name Role Phone Martha Lawrence MD Primary Care Provider [phone] Encounter Details Date Type Department Care Team (Latest Contact Info) Description 04/08/2022 Travel Social History Tobacco Use Types Packs/Day [...] suspected to have Coronavirus/COVID-19? No / Unsure 04/08/2022 8:45 AM BUSINESS SYSTEMS TECHNICIAN documented as of this encounter Functional Status [...] st Contact Info) Description 06/07/2024 1:00 PM BUSINESS SYSTEMS TECHNICIAN Office Visit [facility] [address] [place] [phone] Chrystal Roa MD [address] [place] [address] [place] [phone] 06/23/2024 2:00 PM BUSINESS SYSTEMS TECHNICIAN Office Visit [facility] - Ophthalmology [address] [place] [phone] Fidel Moss MD [address] [place] [phone] documented as of this encounter Visit Diagnoses Not on filedocumented in this encounter Care Teams City Auditor Relationship Specialty Start Date End Date Martha Lawrence MD PCP - General 03/21/20 documented as of this encounter
--- OUTSIDE RECORDS SUMMARY | 2024-05-13 22:20 | XMS_ITS | Encounter Summary ---
Author Organization [facility] Address [address] [place] [address] Care Team Providers Care Cocoa Roaster Name Role Phone Martha Lawrence MD Primary Care Provider [phone] Encounter Details Date Type Department Care Team (Latest Contact Info) Description 06/26/2021 Travel Social History Tobacco Use Types Packs/Day Years Used Date Smoking Tobacco: Never Smokeless Tobacco: Never Alcohol Use Standard Drinks/Week Comments Never 0 (1 standard drink = 0.6 oz pur e alcohol) AUDIT-C Answer Date Recorded Q1: How often do you have a drink containing alc ohol? Never 06/09/2021 Average Number of Drinks Not on file 022 Q3: How often do you have si x or more drinks on one occasion? Never 06/09/2021 Sex and Gender Information Value Date Recorded Sex Assigned at Not on file Gender Identity Not on file Sexual Orientation Not on file COVID-19 Exposure Response Date Recorded In the last month, have you been in contact with someone who was confirmed or suspected to have Coronavirus / COVID-19? No / Unsure 06/26/2021 11:25 AM PAPER CONE GRADER documented as of this encounter Functional Status [...] st Contact Info) Description 06/07/2024 1:00 PM PAPER CONE GRADER Office Visit [facility] [address] [place] [phone] Chrystal Roa MD [address] [place] [address] [place] [phone] 06/23/2024 2:00 PM PAPER CONE GRADER Office Visit [facility] - Ophthalmology [address] [place] [phone] Fidel Moss MD [address] [place] [address] [phone] documented as of this encounter Visit Diagnoses Not on filedocumented in this encounter Care Teams Cocoa Roaster Relationship Specialty Start Date End Date Martha Lawrence MD PCP - General 03/21/20 documented as of this encounter
--- OUTSIDE RECORDS SUMMARY | 2024-05-13 22:20 | XMS_ITS | Encounter Summary ---
Author Organization [facility] Address [address] [facility] [place] [address] Care Team Providers Care Superintendent Warehouse Name Role Phone Martha Lawrence MD Primary Care Provider [phone] Reason for Visit * Reason Onset Date Comments Question 10/16/2020 Encounter Details Date Type Department Care Team (Late st Contact Info) Description 10/16/2020 Telephone [facility] [address] [place] [phone] Cherrie Arriola MD [address] [place] [address] DEPT [place] OPHTHAL[place]OLOGY [place], [place] Question Social History Tobacco Use Types Packs/Day Years [...] have Coronavirus / COVID-19? No / Unsure 11/08/2020 12:46 PM CDT documented as of this encounter [...] No 09/23/2020 documented as of this encounter Miscellaneous Notes * Telephone Encounter - Sandhya Hernandez - 10/16/2020 10:04 AM CDT Pt want to know if she can go swimming [phone] documented in this encounter Plan of Treatment Upcoming Encounters Date Type Department Care Team (Late st Contact Info) Description 06/07/2024 1:00 PM SALES MANAGEMENT INTERN Office Visit [facility] [address] [place] [address] [phone] Chrystal Roa MD [address] [place] [address] [place] [phone] 06/23/2024 2:00 PM SALES MANAGEMENT INTERN Office Visit [facility] [address] [place] [phone] Fidel Moss MD [address] [place] [address] [phone] documented as of this encounter Visit Diagnoses Not on filedocumented in this encounter Care Teams Superintendent Warehouse Relationship Specialty Start Date End Date Martha Lawrence MD PCP - General 03/21/20 documented as of this encounter
--- OUTSIDE RECORDS SUMMARY | 2024-05-13 22:20 | XMS_ITS | Encounter Summary ---
Author Organization [facility] Address [address] [facility] [place] [address] Care Team Providers Care Tank Car Loader Name Role Phone Martha Lawrence MD Primary Care Provider [phone] Reason for Visit * Reason Comments Follow-up Encounter Details Date Type Department Care Team (Late st Contact Info) Description 05/23/2021 8:15 AM MACHINE SPRAYER Office Visit [facility] Ophthalmology [address] [place] [phone] Chrystal Roa MD [address] [place] [address] [place] [phone] Status post vitrectomy surgery for vitreous floaters, right eye 04/18/2020 (Primary Dx); History of vitrectomy; Secondary glaucoma, mild stage, right Social History Tobacco Use Types Packs/Day Years Used Date Smoking Tobacco: Never Smokeless Tobacco: Never Alcohol Use Standard Drinks/Week Comments Never 0 (1 standard drink = 0.6 oz pur e alcohol) AUDIT-C Answer Date Recorded Q1: How often do you have a drink containing alc ohol? Never 05/12/2021 Average Number of Drinks Not on file 022 Q3: How often do you have si x or more drinks on one occasion? Never 05/12/2021 Sex and Gender Information Value Date Recorded Sex Assigned at Not on file Gender Identity Not on file Sexual Orientation Not on file COVID-19 Exposure Response Date Recorded In the last month, have you been in contact with someone who was confirmed or suspected to have Coronavirus / COVID-19? No / Unsure 05/12/2021 3:22 PM MACHINE SPRAYER documented as of this encounter Functional Status [...] No 09/23/2020 documented as of this encounter Patient Instructions * Patient Instructions* Franco Helton MD - 05/23/2021 9:10 AM MACHINE SPRAYER [facility] Ophthalmology Located at: Medicine Ophthalmology [address] [place] [address] Your Visit from 05/23/2021 Follow up Appointment: Follow up with Dr. Roa in 1 year - It is important that you follow up with us for the health of your eyes. - If you have trouble making or getting to your appointment please call our clinic Eye Drop Instructions: Right eye (OD): Combigan (Blue cap) 2 times daily in the right eye Activity Instructions: Do Not Rub your Eyes [...] thesemedicines. Phone Number: Weekdays (8am-5pm) - Call [phone] () Evenings, Weekends, or Holidays: Call [phone] and dial [phone] for the convex grinder operator. Ask to speak to the eye doctor home care companion. They will connect us. INE SPRAYER documented in this encounter Progress Notes * Franco Helton MD - 05/23/2021 8:25 AM CST Ophthalmology Office Note Subjective: Chief Complaint Patient presents with ??? Follow-up Patient returns for 6 month retina follow-up. S/p Ahmed tube revision right eye (shortening the tube), right eye 09/23/[address] Moss. Next visit with glaucoma service is 06/26/21. Vision is stable. No pain/pressure. Occasional flashes of light, stable varying floaters. AJP: Patient following with Dr. Roa for symptomatic vitreous opacities s/p PPV OD. Patient says that she still has many floaters daily, fluctuate day to day but overall they are fairly stable. She feels vision might be a little bit blurrier. Rare flashes of light OD once per month but not consistent. No pain or irritation. No discharge associated with prosthetic eye. Past History: Past Medical History: Diagnosis Date [...] disease 06/26/2014 GERD (gastroesophageal reflux disease) ??? History of eye prosthesis 02/17/2020 Left eye ??? HTN (hypertension) ??? Iron deficiency anemia 02/18/2012 Iron deficiency anemia ??? Mastodynia 04/29/2018 ??? 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 Obstructive sleep apnea syndrome 05/14/2014 Overview: Nasal (CPAP) qhs all night Well controlled YEMI ??? PCOS (polycystic ovarian syndrome) ??? PTSD (post-traumatic stress disorder) ??? Vitamin [...] Social History Socioeconomic History ??? Marital status: Single Spouse name: Not on file ??? Number of children: Not on file ??? Years of education: Not on file ??? Highest education level: Not on file Occupational History ??? Not on file Tobacco Use ??? Smoking status: Never Smoker ??? Smokeless tobacco: Never Used Vaping Use ??? Vaping Use: Never used Substance and Sexual Activity ??? Alcohol use: Never ??? Drug use: Never ??? Sexual activity: Not on file Other Topics Concern ??? Not on file Social History Narrative ??? Not on file Social Determinants of Health Financial Resource Strain: Not on file Food Insecurity: Not on file Transportation Needs: Not on file Physical Activity: Not on file Stress: Not on file Social Connections: Not on file Intimate Partner Violence: Not on file Housing Stability: Not on [...] Wheezing Reasons: Asthma 1 Inhaler 1 ??? ALPRAZolam (XANAX) 0.5 MG tablet Take 1 (one) tablet by mouth 2 times daily as needed for Anxiety Reasons: Feeling Anxious 30 tablet 0 ??? ARIPiprazole (ABILIFY) 10 MG tablet Take 1 (one) tablet by mouth at bedtime Reasons: Mood Disorder 90 tablet 0 ??? brimonidine-timolol (COMBIGAN) 0.2-0.5 % ophthalmic solution Instill 1 drop into right eye 2 times daily 5 mL 0 ??? buPROPion XL 24hr (WELLBUTRIN-XL) 150 MG tablet Take 1 (one) tablet by mouth once daily Reasons: Depression 30 tablet 2 ??? Cholecalciferol 125 MCG (5000 UT) Take 5,000 Units by mouth once daily ??? escitalopram (LEXAPRO) 20 MG tablet Take 1 (one) tablet by mouth once daily Reasons: Major Depressive Disorder 30 tablet 1 ??? fluticasone propionate (FLONASE) 50 MCG/ACT nasal spray ??? lamoTRIgine (LAMICTAL) 100 MG tablet ??? montelukast (SINGULAIR) 10 MG tablet Take 2 (two) tablets by mouth at bedtime Reasons: Asthma (Patient taking differently: Take 10 mg by mouth at bedtime Reasons: Asthma) 30 tablet 1 ??? nebivolol (BYSTOLIC) 5 MG tablet ??? omeprazole (PRILOSEC) 20 MG capsule as needed ??? OZEMPIC, 1 MG/DOSE, 4 MG/3ML SOPN ??? spironolactone (ALDACTONE) 50 MG tablet ??? SPRAVATO, 84 MG DOSE, 28 MG/DEVICE nasal spray ??? traZODone (DESYREL) 150 MG tablet Take 150 (one hundred fifty) mg by mouth at bedtime Reasons: Major Depressive Disorder 30 tablet 1 No current facility-administered medications for this visit. Allergies Allergen Reactions ??? Penicillins Urticaria, Rash and Skin Reactions ??? Sulfa Drugs Urticaria, Rash and Itching ??? Sulfacetamide Urticaria, Rash, Eye Discomfort and Eye Itching ??? Povidone-Iodine Eye Redness and Eye Itching ??? Oxycodone-Acetaminophen Diarrhea, Nausea and/or Vomiting and Vomiting Objective: Base Eye Exam Visual Acuity (Snellen - Linear) Right Left Dist cc 20/40 -2 pros Dist ph cc NI Correction: Glasses Tonometry (Tonopen, 8:21 AM) Right Left Pressure 26 pros Tonometry #2 (Applanation, 8:47 AM) Right Left Pressure 22 Pupils Dark Light Shape React APD Right 3 2 Round Brisk unable to assess given monocular status Left pros Visual Bay (Counting fingers) Left Right Full Restrictions Total superior temporal, inferior temporal, superior nasal, inferior nasal deficiencies Extraocular Movement Right Left prosthesis 0 0 0 0 0 0 0 0 -- -- -- -- -- -- -- -- Neuro/Psych Oriented x3: Yes Mood/Affect: Normal Dilation Right eye: 1.0% Mydriacyl, 2.5% Slade Synephrine @ 8:23 AM Slit Lamp and Fundus Exam External Exam Right Left External Normal Normal Slit Lamp Exam Right Left Lids/Lashes Normal Normal Conjunctiva/Sclera Good bleb formation over ahmed, tutoplast ST nonexposed Prosthetic, pink healthyappearing palpebral conj, no discharge Cornea Clear, inferior endopigment Anterior Chamber Deep and quiet Iris Round and reactive (poor dilatio) Lens Sulcus lens, fibrosed remnants of capsule, pigment on anterior surface Vitreous Normal, no tube visible due to poor dilation Fundus Exam Right Left Disc Normal C/D Ratio 0.4 Macula Normal Vessels Normal Periphery Normal Refraction Wearing Rx Sphere Cylinder Enfield Right -2.75 +1.50 140 Left Balance Age: 6m Type: SVL Polycarb Studies: 05/23/2021 OCT OD: Normal retina crosssection with preservation of fovea, clivus, and cellular lamina OS: Prosthetic Extended Ophthalmoscopy: OD: Optic nerve pink with sharp margins, macula flat, vessels wnl, periphery attached 360 OS: Prosthetic Assessment/Plan: s/p 25g PPV OD for??visually significant vitreous opacities/PVD??(04/18/20) - PPV performed due to??significant effect on daily activities and poor performance at work due to PVD - Doing well today, symptoms stable, normal DFE though limited view secondary to poor dilation, normal foveal contour on OCT ?? Prosthetic Eye??OS?? 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 - Healthy appearing conj, patient cleans regularly Congenital glaucoma OD s/p Ahmed??with pars plana tube placement and viscoat tamponade, dexamethasone depot, OD??07/03/20 s/p??Ahmed tube revision??(shortening the tube),??right??eye??for tube in visual axis 09/23/20 -Patient happy with resolution of visual disturbance from the tube -Tip of tube no longer in visual axis and no longer visible -IOP slightly elevated, 26 by tonopen, 22 on recheck with applanation today -Not currently on drops -Following with glaucoma service, next visit 06/26/21 -Will start on Combigan BID OD until seen by glaucoma Pseudophakia, OD - 3 Piece in the sulcus ?? PLAN -Will start combigan BID OD as a precaution since pressures slightly elevated today and patient is monocular -Patient is on albuterol for stress induced asthma, instructed to stop medication immediately and call if any breathing difficulty related to combigan -Reviewed RD warning signs, instructed to call immediately with any concerns -Continue hand edger polycarbonate glasses wear as monocular precaution -Follow up with Glaucoma service as planned 06/26/21 -Follow up with Dr. Roa in 1 year for DFE and OCT Patient seen and discussed with Dr. Roa. Franco Helton MD Ophthalmology, PGY-2 05/23/2021 I reviewed and confirmed the techs ROS, [...] Follow up: 1 year, DFE OD, OCT [place] Arc OD Chrystal Roa MD Attending, Retina and Uveitis Service Date of Service: 05/23/2021 INE SPRAYER documented in this encounter Plan of Treatment Upcoming Encounters Date Type Department Care Team (Late st Contact Info) Description 06/07/2024 1:00 PM MACHINE SPRAYER Office Visit [facility] - Op[facility]mology [address] [place] [phone] Chrystal Roa MD [address] [place] [address] [place] [phone] 06/23/2024 2:00 PM MACHINE SPRAYER Office Visit [facility] - Ophthalmology [address] [place] [phone] Fidel Moss MD [address] [place] [address] [phone] documented as of this encounter Procedures Procedure Name Priority Date/Time Associated Diagnosis Comments OPH OCT TEST SLU Routine 05/23/2021 9:05 AM MACHINE SPRAYER Status post vitrectomy surgery for vitreous floaters, right eye 04/18/2020 documented in this encounter Results * OCT (05/23/2021 9:05 AM MACHINE SPRAYER) Anatomical Region Laterality Modality Other 05/23/2021 9:05 AM MACHINE SPRAYER Chrystal Roa MD OPHTHALMOLOGY SERVIC ES ORDERABLES documented in this encounter Visit Diagnoses Diagnosis Status post vitrectomy surgery for vitreous floaters, right eye 04/18/2020- Primary Other states following surgery of eye and adnexa History of vitrectomy Other states following surgery of eye and adnexa Secondary glaucoma, mild stage, right documented in this encounter Care Teams Tank Car Loader Relationship Specialty Start Date End Date Martha Lawrence MD PCP - General 03/21/20 documented as of this encounter
--- OUTSIDE RECORDS SUMMARY | 2024-05-13 22:20 | XMS_ITS | Encounter Summary ---
Author Organization [facility] Address [address] [place] [address] Care Team Providers Care Power House Engineer Name Role Phone Martha Lawrence MD Primary Care Provider [phone] Kathy Corley LOGISTICS OFFICER-MANAGER VEHICLE Unavailable Gibran David Unavailable Reason for Visit * Reason Comments Follow-up Prosthesis check-up Encounter Details Date Type Department Care Team (Late st Contact Info) Description 12/14/2022 2:00 PM CDT Office Visit [facility] - Ophthalmology [facility] [place] [phone] Kathy Corley, LOGISTICS OFFICER-MANAGER VEHICLE [address] [place] [address] DE[place] [phone] Anophthalmos of left eye (Primary Dx) Social History Tobacco Use Types [...] as of this encounter Progress Notes * Kathy Corley, LOGISTICS OFFICER-MANAGER VEHICLE - 12/14/2022 2:33 PM CDT Name: Cesario Jewell Age: [age] year old Date of : 1980 Encounter date: 12/14/2022 This 42 year old patient is accompanied in the office by her sister. Chief Complaint Patient presents with ??? Follow-up Prosthesis check-up EXAM Cesario Jewell is a 42 year old female presenting to clinic for a prosthesis check-up and referral to prosthetics. She has been seen by Dr. Hsu until around 10 years ago, who performed the enucleation and prosthetic placement for her as a child; will be doing a new prosthetic for her next week. Pt reports that she has a lot of discharge from prosthesis, which has been worsening in the past 6 months. She notes some occasional erythema to the periorbital skin OS; also notes some laxity ofskin and some drooping. Pt states that she cleans the prosthetic herself. Steph: none Gtt: none Base Eye Exam Visual Acuity (Snellen - Linear) Right Left Dist cc 20/30 -2 Prosthesis Correction: Glasses Neuro/Psych Oriented x3: Yes Mood/Affect: Normal Slit Lamp and Fundus Exam External Exam Right Left MRD1 2 mm 2 mm MRD2 5 mm 5 mm Pen Light Exam Right Left Lids/Lashes Normal Trace darkening to upper and LL skin; minor enophthalmic appearance Conjunctiva/Sclera Bleb formation over Ahmed ST Prosthetic; no evidence of exposure or infection. Diffuse mild erythema with worsening to superotemporal fornix. 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 Refer for new prosthesis. F/U 1 month after obtaining prosthetic. Can consider ptosis repair if needed. IJonny, acted as scribe in documenting the service or procedure, while in the presence of ELIJAH Chase. IKathy APRN-CNP personally performed the services described in this documentation. Allmedical record entries made by the scribe were at my direction and in my presence. I have reviewed the chart and agree that the record reflects my personal performance and is accurate and complete. documented in this encounter Plan of Treatment Upcoming Encounters Date Type Department Care Team (Late st Contact Info) Description 06/07/2024 1:00 PM ATTENDING PHYSICIAN Office Visit [facility] - Ophthalmology [address] [place] [phone] Chrystal Roa MD [address] [place] [address] DE[place] [phone] 06/23/2024 2:00 PM ATTENDING PHYSICIAN Office Visit [facility] - Ophthalmology [address] [place] [address] [phone] Fidel Moss MD [address] [place] [address] [phone] documented as of this encounter Visit Diagnoses Diagnosis Anophthalmos of left eye- Primary Clinical anophthalmos, unspecified documented in this encounter Care Teams Power House Engineer Relationship Specialty Start Date End Date Martha Lawrence MD PCP - General 03/21/20 Kathy Corley, LOGISTICS OFFICER-MANAGER VEHICLE [address] [place] [phone] Nurse Practitioner Ophthalmology 12/14/22 Gibran David [address] [place] [address] 12/14/22 documented as of this encounter
--- OUTSIDE RECORDS SUMMARY | 2024-05-13 22:20 | XMS_ITS | Encounter Summary ---
Author Organization [facility] Address [address] [facility] [place] [address] Care Team Providers Care Campus Wellness Coordinator Name Role Phone Martha Lawrence MD Primary Care Provider [phone] Encounter Details Date Type Department Care Team (Late st Contact Info) Description 08/13/2021 Orders Only [facility] Phys Standard [address] [place], [place] [phone] Shade Reddy MD [address] [place], [place] [phone] Social History Tobacco Use Types Packs/Day Years Used Date Smoking Tobacco: Never Smokeless Tobacco: Never Alcohol Use Standard Drinks/Week Comments Never 0 (1 standard drink = 0.6 oz pur e alcohol) AUDIT-C Answer Date Recorded Q1: How often do you have a drink containing alc ohol? Never 08/04/2021 Average Number of Drinks Not on file 022 Q3: How often do you have si x or more drinks on one occasion? Never 08/04/2021 Sex and Gender Information Value Date Recorded Sex Assigned at Not on file Gender Identity Not on file Sexual Orientation Not on file COVID-19 Exposure Response Date Recorded In the last month, have you been in contact with someone who was confirmed or suspected to have Coronavirus / COVID-19? No / Unsure 08/04/2021 4:31 PM CDT documented as of this encounter [...] st Contact Info) Description 06/07/2024 1:00 PM CONSUMER ANALYST Office Visit [facility] - Ophthalmology [address] [place] [phone] Chrystal Roa MD [address] [place] [address] [place] [phone] 06/23/2024 2:00 PM CONSUMER ANALYST Office Visit [facility] - Ophthalmology [address] [place] [phone] Fidel Moss MD [address] [place] [phone] documented as of this encounter Visit Diagnoses Not on filedocumented in this encounter Care Teams Campus Wellness Coordinator Relationship Specialty Start Date End Date Martha Lawrence MD PCP - General 03/21/20 documented as of this encounter
--- OUTSIDE RECORDS SUMMARY | 2024-05-13 22:20 | XMS_ITS | Encounter Summary ---
Author Organization [facility] Address [address] [place] [address] Care Team Providers Care Tubing Drier Name Role Phone Martha Lawrence MD Primary Care Provider [phone] Encounter Details Date Type Department Care Team (Latest Contact Info) Description 04/12/2022 Travel Social History Tobacco Use Types Packs/Day [...] suspected to have Coronavirus/COVID-19? No / Unsure 04/12/2022 10:41 AM HARVEST WORKER FIELD CROP documented as of this encounter Functional Status [...] Contact Info) Description 06/07/2024 1:00 PM HARVEST WORKER FIELD CROP Office Visit [facility] [address] [place] [phone] Chrystal Roa MD [address] [place] [address] [place] [phone] 06/23/2024 2:00 PM HARVEST WORKER FIELD CROP Office Visit [facility] - Ophthalmology [address] [place] [phone] Fidel Moss MD [address] [place] [phone] documented as of this encounter Visit Diagnoses Not on filedocumented in this encounter Care Teams Tubing Drier Relationship Specialty Start Date End Date Martha Lawrence MD PCP - General 03/21/20 documented as of this encounter
--- OUTSIDE RECORDS SUMMARY | 2024-05-13 22:20 | XMS_ITS | Encounter Summary ---
Author Organization [facility] Address [address] [facility] [place] [address] Care Team Providers Care Flour Broker Name Role Phone Matrha Lawrence MD Primary Care Provider [phone] Encounter Details Date Type Department Care Team (Late st Contact Info) Description 01/27/2021 Orders Only [facility] Phys Standard [address] [place], [place] [phone] Shade Reddy MD [address] [place], [place] [phone] Social History Tobacco Use Types Packs/Day Years [...] have Coronavirus / COVID-19? No / Unsure 01/06/2021 3:16 PM CDT documented as of this encounter [...] st Contact Info) Description 06/07/2024 1:00 PM PROCESS DEVELOPMENT ASSOCIATE Office Visit [facility] [address] [place] [phone] Chrystal Roa MD [address] [place] [address] [place] [phone] 06/23/2024 2:00 PM PROCESS DEVELOPMENT ASSOCIATE Office Visit [facility] - Ophthalmology [address] [place] [phone] Fidel Moss MD [address] [place] [phone] documented as of this encounter Visit Diagnoses Not on filedocumented in this encounter Care Teams Flour Broker Relationship Specialty Start Date End Date Martha Lawrence MD PCP - General 03/21/20 documented as of this encounter
--- OUTSIDE RECORDS SUMMARY | 2024-05-13 22:20 | XMS_ITS | Encounter Summary ---
Author Organization [facility] Address [address] [place] [address] Care Team Providers Care Barrel Assembler Name Role Phone Martha Lawrence MD Primary Care Provider [phone] Encounter Details Date Type Department Care Team (Latest Contact Info) Description 04/29/2022 Travel Social History Tobacco Use Types Packs/Day [...] suspected to have Coronavirus/COVID-19? No / Unsure 04/29/2022 8:31 AM CUSTOMER SALES ADVISOR documented as of this encounter Functional Status [...] st Contact Info) Description 06/07/2024 1:00 PM CUSTOMER SALES ADVISOR Office Visit [facility] [address] [place] [address] [phone] Chrystal Roa MD [address] [place] [address] DE[place] [phone] 06/23/2024 2:00 PM CUSTOMER SALES ADVISOR Office Visit [facility] - Ophthalmology [address] [place] [address] [phone] Fidel Moss MD [address] [place] [address] [phone] documented as of this encounter Visit Diagnoses Not on filedocumented in this encounter Care Teams Barrel Assembler Relationship Specialty Start Date End Date Martha Lawrence MD PCP - General 03/21/20 documented as of this encounter
--- OUTSIDE RECORDS SUMMARY | 2024-05-13 22:20 | XMS_ITS | Encounter Summary ---
Author Organization [facility] Address [address] [place] [address] Care Team Providers Care Starch Mangle Tender Name Role Phone Martha Lawrence MD Primary Care Provider [phone] Reason for Visit * Reason Onset Date Comments Reschedule Appointment 11/16/2022 Encounter Details Date Type Department Care Team (Late st Contact Info) Description 11/16/2022 Telephone [facility] Scheduling [address] [place] [phone] Fidel Moss MD [address] [place] [phone] Reschedule Appointment Social History Tobacco Use Types Packs/Day Years [...] No 03/31/2022 documented as of this encounter Miscellaneous Notes * Telephone Encounter - Marcello Walsh - 11/17/2022 8:50 AM CDT 11/17/22..left msg. AWE[place]ON * Telephone Encounter - Marcello Walsh - 11/16/2022 4:11 PM CDT reschedule to next available. 11/16/22.. left msg. AWE[place]ON 11/16/22.. mychart msg sent. AWE[place]ON documented in this encounter Plan of Treatment Upcoming Encounters Date Type Department Care Team (Late st Contact Info) Description 06/07/2024 1:00 PM LOGISTICS AND PLANNING MANAGER Office Visit [facility] - Ophthalmology [address] [place] [phone] Chrystal Roa MD [address] [place] [address] DEPT [place] [phone] 06/23/2024 2:00 PM LOGISTICS AND PLANNING MANAGER Office Visit [facility] - Ophthalmology [address] [place] [address] [phone] Fidel Moss MD [address] [place] [phone] documented as of this encounter Visit Diagnoses Not on filedocumented in this encounter Care Teams Starch Mangle Tender Relationship Specialty Start Date End Date Martha Lawrence MD PCP - General 03/21/20 documented as of this encounter
--- OUTSIDE RECORDS SUMMARY | 2024-05-13 22:20 | XMS_ITS | Encounter Summary ---
Author Organization [facility] Address [address] [facility] [place] [address] Care Team Providers Care Modeling And Simulation Analyst Name Role Phone Martha Lawrence MD Primary Care Provider [phone] Encounter Details Date Type Department Care Team (Latest Contact Info) Description 02/18/2021 Travel Social History Tobacco Use Types Packs/Day [...] have Coronavirus / COVID-19? No / Unsure 02/18/2021 8:59 AM CDT documented as of this encounter [...] st Contact Info) Description 06/07/2024 1:00 PM COVERSTITCH MACHINE OPERATOR Office Visit [facility] [address] [place] [address] [phone] Chrystal Roa MD [address] [place] [address] [place] [phone] 06/23/2024 2:00 PM COVERSTITCH MACHINE OPERATOR Office Visit [facility] [address] [place] [phone] Fidel Moss MD [address] [place] [address] [phone] documented as of this encounter Visit Diagnoses Not on filedocumented in this encounter Care Teams Modeling And Simulation Analyst Relationship Specialty Start Date End Date Martha Lawrence MD PCP - General 03/21/20 documented as of this encounter
--- OUTSIDE RECORDS SUMMARY | 2024-05-13 22:20 | XMS_ITS | Encounter Summary ---
Author Organization [facility] Address [address] [place] [address] Care Team Providers Care Supervisor Orchard Name Role Phone Martha Lawrence MD Primary Care Provider [phone] Encounter Details Date Type Department Care Team (Latest Contact Info) Description 01/06/2021 Travel Social History Tobacco Use Types Packs/Day [...] st Contact Info) Description 06/07/2024 1:00 PM LIVESTOCK BUYER Office Visit [facility] [address] [place] [address] [phone] Chrystal Roa MD [address] [place] [address] [place] [phone] 06/23/2024 2:00 PM LIVESTOCK BUYER Office Visit [facility] Op[facility]mology [address] [place] [phone] Fidel Moss MD [address] [place] [address] [phone] documented as of this encounter Visit Diagnoses Not on filedocumented in this encounter Care Teams Supervisor Orchard Relationship Specialty Start Date End Date Martha Lawrence MD PCP - General 03/21/20 documented as of this encounter
--- OUTSIDE RECORDS SUMMARY | 2024-05-13 22:20 | XMS_ITS | Encounter Summary ---
Author Organization [facility] Address [address] [facility] [place] [address] Care Team Providers Care Laundry Machine Operator Name Role Phone Martha Lawrence MD Primary Care Provider [phone] Encounter Details Date Type Department Care Team (Latest Contact Info) Description 03/17/2021 Travel Social History Tobacco Use Types Packs/Day [...] have Coronavirus / COVID-19? No / Unsure 03/17/2021 4:50 PM RECEPTIONIST CLERK documented as of this encounter Functional Status [...] st Contact Info) Description 06/07/2024 1:00 PM RECEPTIONIST CLERK Office Visit [facility] [address] [place] [address] [phone] Chrystal Roa MD [address] [place] [address] [place] [phone] 06/23/2024 2:00 PM RECEPTIONIST CLERK Office Visit [facility] [address] [place] [phone] Fidel Moss MD [address] [place] [address] [phone] documented as of this encounter Visit Diagnoses Not on filedocumented in this encounter Care Teams Laundry Machine Operator Relationship Specialty Start Date End Date Martha Lawrence MD PCP - General 03/21/20 documented as of this encounter
--- OUTSIDE RECORDS SUMMARY | 2024-05-13 22:20 | XMS_ITS | Encounter Summary ---
Author Organization [facility] Address [address] [place] [address] Care Team Providers Care Milk Collector Name Role Phone Martha Lawrence MD Primary Care Provider [phone] Encounter Details Date Type Department Care Team (Latest Contact Info) Description 10/01/2020 Travel Social History Tobacco Use Types Packs/Day [...] have Coronavirus / COVID-19? No / Unsure 10/01/2020 10:41 AM CDT documented as of this encounter [...] st Contact Info) Description 06/07/2024 1:00 PM SAFETY INVESTIGATOR/CAUSE ANALYST Office Visit [facility] [address] [place] [address] [phone] Chrystal Roa MD [address] [place] [address] [place] [phone] 06/23/2024 2:00 PM SAFETY INVESTIGATOR/CAUSE ANALYST Office Visit [facility] [address] [place] [phone] Fidel Moss MD [address] [place] [address] [phone] documented as of this encounter Visit Diagnoses Not on filedocumented in this encounter Care Teams Milk Collector Relationship Specialty Start Date End Date Martha Lawrence MD PCP - General 03/21/20 documented as of this encounter
--- OUTSIDE RECORDS SUMMARY | 2024-05-13 22:20 | XMS_ITS | Encounter Summary ---
Author Organization [facility] Address [address] [facility] [place] [address] Care Team Providers Care Fountain Operator Name Role Phone Martha Lawrence MD Primary Care Provider [phone] Reason for Visit * Reason Comments Post-Op Encounter Details Date Type Department Care Team (Late st Contact Info) Description 10/01/2020 9:30 AM CDT Office Visit [facility] [address] [place] [phone] Fidel Moss MD [address] [place] [phone] Postsurgical states following surgery of eye and adnexa (Primary Dx) Social History Tobacco Use Types [...] this encounter Patient Instructions * Patient Instructions* Kasey Duffy MD - 10/01/2020 11:01 AM CDT It was a pleasure seeing you today in the [facility] Ophthalmology clinic, which is now located on the [place] at the [facility] ([address] [place] [address]). Call us immediately with any sudden change in vision, sudden or worsening eye pain, if you have thousands of new floating objects, are seeing uncontrolled flashing lights, or if you have questions about your drops or eye medications. During business hours (8am - 4pm, Wednesday - Wednesday, excluding holidays), you may call our clinic at . If after these hours or on the weekend, you will need to call [facility] ([phone]), dial [phone] for the rerolling machine operator, and say you are an eye patient and need to speak with the eye doctor out of town collection clerk. They will contact one of the eye doctors who will call you and address your concerns. Again, our clinic is now located in the [facility]. The address is [address] [place] [address]. Our clinic is located on the [place]. If you are driving, you should park on the BLUE SIDE of the parking garage and proceed to the Garden Level of the [facility]. documented in this encounter Progress Notes * Kasey Duffy MD - 10/01/2020 10:39 AM CDT Ophthalmology Office Note Subjective: Cesario Jewell is an 40 year old Chief Complaint Patient presents with ??? Post-Op Patient returns for post-op visit, s/p Ahmed tube revision right eye (shortening the tube), right eye 09/23/20. Vision is stable. No pain/pressure/KISER. No flashes/floaters. Drops: RIGHT EYE -Moxifloxacin QID -Nevanac QID -Tobradex QID Current Outpatient Medications Medication Sig Dispense Refill ??? albuterol HFA (PROVENTIL;VENTOLIN;PROAIR) 108 (90 Base) MCG/ACT inhaler Inhale 2 (two) puffs bymouth every 6 hours as needed for Shortness of Breath or Wheezing Reasons: Asthma 1 Inhaler 1 ??? amLODIPine (NORVASC) 5 MG tablet Take 1 (one) tablet by mouth once daily Reasons: High Blood Pressure Disorder 30 tablet 1 ??? buPROPion XL 24hr (WELLBUTRIN-XL) 150 MG tablet Take 1 (one) tablet by mouth once daily Reasons: Depression 30 tablet 1 ??? dulaglutide (TRULICITY) 1.5 MG/0.5ML injection every Wednesday ??? escitalopram (LEXAPRO) 20 MG tablet Take 1 (one) tablet by mouth once daily Reasons: Major Depressive Disorder 30 tablet 1 ??? esketamine, 14 mg/spray, (SPRAVATO) nasal spray [place] 56 (fifty six) mg into the nose Two timesa week Reasons: Major Depressive Disorder 2 Each 5 ??? FLOVENT HFA 44 MCG/ACT inhaler ??? lamoTRIgine (LAMICTAL) 150 MG tablet Take 1 (one) tablet by mouth at bedtime Reasons: Mood Disorder 30 tablet 1 ??? metFORMIN (GLUCOPHAGE) 1000 MG tablet Take 1 (one) tablet by mouth daily with breakfast Reasons: Type 2 Diabetes 30 tablet 1 ??? montelukast (SINGULAIR) 10 MG tablet Take 2 (two) tablets by mouth at bedtime Reasons: Asthma (Patient taking differently: Take 10 mg by mouth at bedtime Reasons: Asthma) 30 tablet 1 ??? moxifloxacin (VIGAMOX) 0.5 % ophthalmic solution Instill 1 (one) drop into right eye 2 times daily 3 mL 0 ??? qqljkpkr-shjfnspol-rtgwzaus (MAXITROL) ophthalmic ointment Instill into right eye nightly as needed 3.5 g 0 ??? nepafenac (NEVANAC) 0.1 % ophth suspension Instill 1 drop into right eye 2 times daily 3 mL 0 ??? OLANZapine, disintegrating, (ZYPREXA ZYDIS) 10 MG tablet Take 1 (one) tablet by mouth once daily as needed (Agitation.) Reasons: Mood Disorder 30 tablet 1 ??? omeprazole (PRILOSEC) 20 MG capsule as needed ??? tobramycin-dexamethasone (TOBRADEX) 0.3-0.1 % ophthalmic suspension Instill 1 (one) drop into right eye 2 times daily 10 mL 0 ??? traZODone (DESYREL) 150 MG tablet Take [...] - Linear) Right Left Dist cc 20/40 -1 prosthesis Dist ph cc NI Correction: Glasses Tonometry (Tonopen, 9:36 AM) Right Left Pressure 22 pros Tonometry #2 (applanation-kb, 10:48 AM) Right Left Pressure 22 pros Pachymetry (06/21/2020) Right Left Thickness 641 Neuro/Psych Oriented x3: Yes Mood/Affect: Normal Slit Lamp and Fundus Exam External Exam Right Left External Normal Slit Lamp Exam Right Left Lids/Lashes Reactive ptosis pros Conjunctiva/Sclera Post surgical conj, good bleb formation, MUKESH, sutuures intact Cornea Clear, inferior endopigment Anterior Chamber 1+ pigmented cell Iris Round and reactive Lens Sulcus lens Vitreous 1+ pigmented cell, vitrectomized. Tube in vitreous cavity but tip no longer visible (patient not dilated) Refraction Wearing Rx Sphere Cylinder Hesperus Right -3.50 +0.75 098 Left bal Age: 6yrs Type: SVL Studies 10/01/2020: None Assessment/Plan: #POW1 s/p Ahmed tube revision (shortening the tube),??right??eye for tube in visual axis -Patient happy with resolution of visual disturbance from the tube -Tip of tube no longer in visual axis and no longer visible, will plan for dilated exam at follow up to visualize ?? #s/p Ahmed??with pars plana tube placement and viscoat tamponade, dexamethasone depot, OD 07/03/20 ?? #Congenital glaucoma OD - Patient??previously saw??Dr. Pappas??at [facility]??only once, would like to establish glaucoma carehere ?? #s/p 25g PPV OD for??visually significant vitreous opacities/PVD??(04/18/20) - PPV performed due to??significant effect on daily activities and poor performance at work due to PVD - [place]??2030, retina flat - Follows with Dr. Roa ?? 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 #??Pseudophakia, OD - Anterior capsule phimosis -??Monocular precautions - States glasses are polycarbonate PLAN -one month follow up with Dr. Moss -continue post op drops twice daily and stop when run out -dilated exam at follow up visit Patient discussed with Dr. Isa Duffy MD, PGY2 ATTENDING NOTE Attestation: I supervised the resident who evaluated this post-op patient. Fidel Moss MD 10/01/2020 11:49 AM documented in this encounter Plan of Treatment Upcoming Encounters Date Type Department Care Team (Late st Contact Info) Description 06/07/2024 1:00 PM SPINNING MACHINE TENDER Office Visit [facility] - Ophthalmology [address] [place] [phone] Chrystal Roa MD [address] [place] [address] [place] [address] 06/23/2024 2:00 PM SPINNING MACHINE TENDER Office Visit [facility] [place] [phone] Fidel Moss MD [address] [place] [phone] documented as of this encounter Visit Diagnoses Diagnosis Postsurgical states following surgery of eye and adnexa- Primary Other states following surgery of eye and adnexa documented in this encounter Care Teams Fountain Operator Relationship Specialty Start Date End Date Martha Lawrence MD PCP - General 03/21/20 documented as of this encounter
--- OUTSIDE RECORDS SUMMARY | 2024-05-13 22:20 | XMS_ITS | Encounter Summary ---
Author Organization [facility] Address [address] [place] [address] Care Team Providers Care Engineering Supplies Sales Name Role Phone Martha Lawrence MD Primary Care Provider [phone] Encounter Details Date Type Department Care Team (Latest Contact Info) Description 08/21/2022 Travel Social History Tobacco Use Types Packs/Day [...] suspected to have Coronavirus/COVID-19? No / Unsure 08/21/2022 7:40 AM CDT documented as of this encounter [...] st Contact Info) Description 06/07/2024 1:00 PM AUTOMOTIVE PARTS MANAGER Office Visit [facility] Op[facility] [address] [place] [address] [phone] Chrystal Roa MD [address] [place] [address] [place] [phone] 06/23/2024 2:00 PM AUTOMOTIVE PARTS MANAGER Office Visit [facility] - Ophthalmology [address] [place] [phone] Fidel Moss MD [address] [place] [address] [phone] documented as of this encounter Visit Diagnoses Not on filedocumented in this encounter Care Teams Engineering Supplies Sales Relationship Specialty Start Date End Date Martha Lawrence MD PCP - General 03/21/20 documented as of this encounter
--- OUTSIDE RECORDS SUMMARY | 2024-05-13 22:20 | XMS_ITS | Encounter Summary ---
Author Organization [facility] Address [address] [place] [address] Care Team Providers Care Key Filer Name Role Phone Martha Lawrence MD Primary Care Provider [phone] Encounter Details Date Type Department Care Team (Latest Contact Info) Description 03/16/2022 Travel Social History Tobacco Use Types Packs/Day [...] more drinks on one occasion? Never 08/04/2021 PHQ-2 Answer Date Recorded PHQ2 TOTAL SCORE 4 03/16/2022 Sex and Gender Information Value Date Recorded Sex Assigned at Not on file Gender Identity Not on file Sexual Orientation Not on file COVID-19 Exposure Response Date Recorded In the last 10 days, have yo u been in contact with someone who was confirmed or suspected to have Coronavirus/COVID-19? No / Unsure 03/16/2022 3:02 PM AIRLINE MANAGER documented as of this encounter Functional Status [...] st Contact Info) Description 06/07/2024 1:00 PM AIRLINE MANAGER Office Visit [facility] - Op[facility]mology [address] [place] [address] [phone] Chrystal Roa MD [address] [place] [address] [place] [phone] 06/23/2024 2:00 PM AIRLINE MANAGER Office Visit [facility] - Ophthalmology [address] [place] [address] [phone] Fidel Moss MD [address] [place] [phone] documented as of this encounter Visit Diagnoses Not on filedocumented in this encounter Care Teams Key Filer Relationship Specialty Start Date End Date Martha Lawrence MD PCP - General 03/21/20 documented as of this encounter
--- OUTSIDE RECORDS SUMMARY | 2024-05-13 22:20 | XMS_ITS | Encounter Summary ---
Author Organization [facility] Address [address] [address] [place] [address] Care Team Providers Care X Ray Service Engineer Name Role Phone Martha Lawrence MD Primary Care Provider [phone] Encounter Details Date Type Department Care Team (Latest Contact Info) Description 04/22/2022 Travel Social History Tobacco Use Types Packs/Day [...] suspected to have Coronavirus/COVID-19? No / Unsure 04/22/2022 3:34 PM PUBLIC HEALTH SANITARIAN TECHNICIAN documented as of this encounter Functional [...] st Contact Info) Description 06/07/2024 1:00 PM PUBLIC HEALTH SANITARIAN TECHNICIAN Office Visit [facility] [address] [place] [address] [phone] Chrystal Roa MD [address] [place] [address] [place] [phone] 06/23/2024 2:00 PM PUBLIC HEALTH SANITARIAN TECHNICIAN Office Visit [facility] [address] [place] [address] [phone] Fidel Moss MD [address] [place] [address] [phone] documented as of this encounter Visit Diagnoses Not on filedocumented in this encounter Care Teams X Ray Service Engineer Relationship Specialty Start Date End Date Martha Lawrence MD PCP - General 03/21/20 documented as of this encounter
--- OUTSIDE RECORDS SUMMARY | 2024-05-13 22:20 | XMS_ITS | Encounter Summary ---
Author Organization [facility] Address [address] [place] [address] Care Team Providers Care Professor Of Management Name Role Phone Martha Lawrence MD Primary Care Provider [phone] Encounter Details Date Type Department Care Team (Latest Contact Info) Description 11/08/2020 Travel Social History Tobacco Use Types Packs/Day [...] st Contact Info) Description 06/07/2024 1:00 PM CORPORATE SAFETY DIRECTOR Office Visit [facility] [address] [place] [address] [phone] Chrystal Roa MD [address] [place] [address] [place] [phone] 06/23/2024 2:00 PM CORPORATE SAFETY DIRECTOR Office Visit [facility] [address] [place] [phone] Fidel Moss MD [address] [place] [address] [phone] documented as of this encounter Visit Diagnoses Not on filedocumented in this encounter Care Teams Professor Of Management Relationship Specialty Start Date End Date Marhta Lawrence MD PCP - General 03/21/20 documented as of this encounter
--- OUTSIDE RECORDS SUMMARY | 2024-05-13 22:20 | XMS_ITS | Encounter Summary ---
Author Organization [facility] Address [address] [place] [address] Care Team Providers Care Marquetry Worker Name Role Phone Martha Lawrence MD Primary Care Provider [phone] Encounter Details Date Type Department Care Team (Latest Contact Info) Description 02/02/2022 Travel Social History Tobacco Use Types Packs/Day [...] PHQ-2 Answer Date Recorded PHQ2 TOTAL SCORE 3 02/02/2022 Sex and Gender Information Value Date Recorded Sex Assigned at Not on file Gender Identity Not on file Sexual Orientation Not on file COVID-19 Exposure Response Date Recorded In the last 10 days, have yo u been in contact with someone who was confirmed or suspected to have Coronavirus/COVID-19? No / Unsure 02/02/2022 2:55 PM CDT documented as of this encounter [...] st Contact Info) Description 06/07/2024 1:00 PM SHELTER SUPERVISOR Office Visit [facility] [address] [place] [address] [phone] Chrystal Roa MD [address] [place] [address] [place] [phone] 06/23/2024 2:00 PM SHELTER SUPERVISOR Office Visit [facility] Ophthalmology [address] [place] [address] [phone] Fidel Moss MD [address] [place] [address] [phone] documented as of this encounter Visit Diagnoses Not on filedocumented in this encounter Care Teams Marquetry Worker Relationship Specialty Start Date End Date Martha Lawrence MD PCP - General 03/21/20 documented as of this encounter
--- OUTSIDE RECORDS SUMMARY | 2024-05-13 22:20 | XMS_ITS | Encounter Summary ---
Author Organization [facility] Address [address] [facility] [place] [address] Care Team Providers Care Senior Science Consultant Name Role Phone Martha Lawrence MD Primary Care Provider [phone] Encounter Details Date Type Department Care Team (Late st Contact Info) Description 07/07/2021 Orders Only [facility] Phys Standard [address] [place], [place] [phone] Shade Rdedy MD [address] [place], [place] [phone] Social History Tobacco Use Types Packs/Day Years [...] have Coronavirus / COVID-19? No / Unsure 07/02/2021 11:16 AM FRAUD MANAGER documented as of this encounter Functional [...] st Contact Info) Description 06/07/2024 1:00 PM FRAUD MANAGER Office Visit [facility] [address] [place] [phone] Chrystal Roa MD [address] [place] [address] [place] [phone] 06/23/2024 2:00 PM FRAUD MANAGER Office Visit [facility] [address] [place] [address] [phone] Fidel Moss MD [address] [place] [address] [phone] documented as of this encounter Visit Diagnoses Not on filedocumented in this encounter Care Teams Senior Science Consultant Relationship Specialty Start Date End Date Martha Lawrence MD PCP - General 03/21/20 documented as of this encounter
--- OUTSIDE RECORDS SUMMARY | 2024-05-13 22:20 | XMS_ITS | Encounter Summary ---
Author Organization [facility] Address [address] [place] [address] Care Team Providers Care Bill Clerk Name Role Phone Martha Lawrence MD Primary Care Provider [phone] Encounter Details Date Type Department Care Team (Latest Contact Info) Description 10/31/2020 Travel Social History Tobacco Use Types Packs/Day [...] have Coronavirus / COVID-19? No / Unsure 10/31/2020 8:51 AM CDT documented as of this encounter [...] st Contact Info) Description 06/07/2024 1:00 PM LEAD NUCLEAR MEDICINE TECHNOLOGIST Office Visit [facility] [address] [place] [address] [phone] Chrystal Roa MD [address] [place] [address] [place] [phone] 06/23/2024 2:00 PM LEAD NUCLEAR MEDICINE TECHNOLOGIST Office Visit [facility] [address] [place] [phone] Fidel Moss MD [address] [place] [address] [phone] documented as of this encounter Visit Diagnoses Not on filedocumented in this encounter Care Teams Bill Clerk Relationship Specialty Start Date End Date Martha Lawrence MD PCP - General 03/21/20 documented as of this encounter
--- OUTSIDE RECORDS SUMMARY | 2024-05-13 22:20 | XMS_ITS | Encounter Summary ---
Author Organization [facility] Address [address] [place] [address] Care Team Providers Care Implementation Coordinator Name Role Phone Martha Lawrence MD Primary Care Provider [phone] Encounter Details Date Type Department Care Team (Latest Contact Info) Description 01/31/2021 Travel Social History Tobacco Use Types Packs/Day [...] have Coronavirus / COVID-19? No / Unsure 01/31/2021 9:05 AM CDT documented as of this encounter [...] st Contact Info) Description 06/07/2024 1:00 PM PIPE COVERING MOLDER Office Visit [facility] [address] [place] [address] [phone] Chrystal Roa MD [address] [place] [address] [place] [phone] 06/23/2024 2:00 PM PIPE COVERING MOLDER Office Visit [facility] [address] [place] [phone] Fidel Moss MD [address] [place] [address] [phone] documented as of this encounter Visit Diagnoses Not on filedocumented in this encounter Care Teams Implementation Coordinator Relationship Specialty Start Date End Date Martha Lawrence MD PCP - General 03/21/20 documented as of this encounter
--- OUTSIDE RECORDS SUMMARY | 2024-05-13 22:20 | XMS_ITS | Encounter Summary ---
Author Organization [facility] Address [address] [place] [address] Care Team Providers Care Steam Tunnel Feeder Name Role Phone Martha Lawrence MD Primary Care Provider [phone] Encounter Details Date Type Department Care Team (Latest Contact Info) Description 05/14/2022 Travel Social History Tobacco Use Types Packs/Day [...] suspected to have Coronavirus/COVID-19? No / Unsure 05/14/2022 8:47 AM COW TENDER documented as of this encounter Functional Status [...] st Contact Info) Description 06/07/2024 1:00 PM COW TENDER Office Visit [facility] [address] [place] [address] [phone] Chrystal Roa MD [address] [place] [address] [place] [phone] 06/23/2024 2:00 PM COW TENDER Office Visit [facility] Ophthalmology [address] [place] [address] [phone] Fidel Moss MD [address] [place] [address] [phone] documented as of this encounter Visit Diagnoses Not on filedocumented in this encounter Care Teams Steam Tunnel Feeder Relationship Specialty Start Date End Date Martha Lawrence MD PCP - General 03/21/20 documented as of this encounter
--- OUTSIDE RECORDS SUMMARY | 2024-05-13 22:20 | XMS_ITS | Encounter Summary ---
Author Organization [facility] Address [address] [place] [address] Care Team Providers Care Combat Systems Operator Name Role Phone Martha Lawrence MD Primary Care Provider [phone] Encounter Details Date Type Department Care Team (Latest Contact Info) Description 11/18/2020 Travel Social History Tobacco Use Types Packs/Day [...] have Coronavirus / COVID-19? No / Unsure 11/18/2020 3:22 PM CDT documented as of this encounter [...] st Contact Info) Description 06/07/2024 1:00 PM CAFETERIA AIDE Office Visit [facility] [address] [place] [address] [phone] Chrystal Roa MD [address] [place] [address] [place] [phone] 06/23/2024 2:00 PM CAFETERIA AIDE Office Visit [facility] [address] [place] [phone] Fidel Moss MD [address] [place] [address] [phone] documented as of this encounter Visit Diagnoses Not on filedocumented in this encounter Care Teams Combat Systems Operator Relationship Specialty Start Date End Date Martha Lawrence MD PCP - General 03/21/20 documented as of this encounter
--- OUTSIDE RECORDS SUMMARY | 2024-05-13 22:20 | XMS_ITS | Encounter Summary ---
Author Organization [facility] Address [address] [facility] [place] [address] Care Team Providers Care Frit Maker Name Role Phone Martha Lawrence MD Primary Care Provider [phone] Encounter Details Date Type Department Care Team (Late st Contact Info) Description 04/09/2021 Orders Only [facility] Phys Standard [address] [place], [place] [phone] Shade Reddy MD [address] [place], [place] [phone] Social History Tobacco Use Types Packs/Day Years Used Date Smoking Tobacco: Never Smokeless Tobacco: Never Alcohol Use Standard Drinks/Week Comments Never 0 (1 standard drink = 0.6 oz pur e alcohol) AUDIT-C Answer Date Recorded Q1: How often do you have a drink containing alc ohol? Never 04/14/2021 Average Number of Drinks Not on file 021 Frequency of Binge Drinking Not on file 10/2020 Sex and Gender Information Value Date Recorded Sex Assigned at Not on file Gender Identity Not on file Sexual Orientation Not on file COVID-19 Exposure Response Date Recorded In the last month, have you been in contact with someone who was confirmed or suspected to have Coronavirus / COVID-19? No / Unsure 04/14/2021 5:37 PM RESHIPPING CLERK documented as of this encounter Functional [...] st Contact Info) Description 06/07/2024 1:00 PM RESHIPPING CLERK Office Visit [facility] [address] [place] [phone] Chrystal Roa MD [address] [place] [address] [place] [phone] 06/23/2024 2:00 PM RESHIPPING CLERK Office Visit [facility] [address] [place] [address] [phone] Fidel Moss MD [address] [place] [address] [phone] documented as of this encounter Visit Diagnoses Not on filedocumented in this encounter Care Teams Frit Maker Relationship Specialty Start Date End Date Martha Lawrence MD PCP - General 03/21/20 documented as of this encounter
--- OUTSIDE RECORDS SUMMARY | 2024-05-13 22:20 | XMS_ITS | Encounter Summary ---
Author Organization [facility] Address [address] [place] [address] Care Team Providers Care Cushion Former Name Role Phone Martha Lawrence MD Primary Care Provider [phone] Reason for Visit * Reason Comments Follow-up Status post vitrecto my surgery for vitreous floaters, right eye 04/18/2020 Encounter Details Date Type Department Care Team (Late st Contact Info) Description 08/24/2022 10:00 AM CDT Office Visit [facility] [address] [place] [phone] Chrystal Roa MD [address] [place] [address] [place] [phone] History of vitrectomy (Primary Dx); Status post vitrectomy surgery for vitreous floaters, right eye 04/18/2020; Secondary glaucoma, mild stage, right; Pseudophakia; Prosthetic eye globe; 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 Roa - It is important that you follow up with us for the health of your eyes. - If you have trouble making or getting to your appointment please call our clinic Eye Drop Instructions: In the right eye: latanoprost Oral Medications: Activity Instructions: Do Not Rub [...] you have trouble getting thesemedicines. Phone Number: (8am-5pm) - Call [phone] () Evenings, Weekends, or Holidays: Call [phone] and dial [phone] for the cut out and marking machine operator. Ask to speak to the eye doctor cotton buyer. They will connect us. documented in this encounter Progress Notes * Chrystal Roa MD - 08/24/2022 11:23 AM CDT Images from the original note were not included. Ophthalmology Office Note Subjective: Chief Complaint Patient presents with ??? Follow-up Status post vitrectomy surgery for vitreous floaters, right eye 04/18/2020 Cesario Jewell is a 42 year old female, who presents for yearly eye exam, Status post vitrectomy surgery for vitreous floaters, right eye 04/18/2020 Patient stated there is no changes in vision OD since her last eye exam with Dr. Roa, patient denied eye pain/pressure. No flashes. No changes in floaters. Gtts: Latanoprost QHS OD Patient started therapy for Depression in February 2022 states she does it every five weeks and it is pretty much they induce a seizures. Past History: Past Medical History: Diagnosis Date [...] as needed for Anxiety Reasons: Feeling Anxious (Patient not taking: Reported on 04/21/2022) 30 tablet 0 ??? atomoxetine (Strattera) 60 MG capsule Take 1 (one) capsule by mouth once daily Reasons: Attention Deficit Hyperactivity Disorder 30 capsule 1 ??? buPROPion XL 24hr (WELLBUTRIN-XL) 150 MG tablet Take 1 (one) tablet by mouth once daily Reasons: Depression 30 tablet 2 ??? Cholecalciferol 125 MCG (5000 UT) Vitamin D3 125 mcg (5,000 unit) tablet Take 1 tablet every day by oral route in the morning for 30 days. ??? dulaglutide (Trulicity) 0.75 MG/0.5ML injection Inject 0.75 mg subcutaneously every 7 days Reasons: Higher than Normal Blood Sugar not yet Considered Diabetes ??? escitalopram (LEXAPRO) 20 MG tablet Take 1 (one) tablet by mouth once daily Reasons: Major Depressive Disorder 30 tablet 1 ??? lamoTRIgine (LaMICtal) 100 MG tablet Take 1 (one) tablet by mouth at bedtime Reasons: Mood Disorder 30 tablet 1 ??? latanoprost (XALATAN) 0.005 % ophthalmic solution Instill 1 (one) drop into right eye at bedtime 7.5 mL 4 ??? montelukast (Singulair) 10 MG tablet Take 1 (one) tablet by mouth at bedtime Reasons: Asthma 30tablet 1 ??? nebivolol (BYSTOLIC) 5 MG tablet 2 (two) tablets once daily ??? omeprazole (PriLOSEC) 20 MG capsule Take 1 (one) capsule by mouth 2 times daily, before breakfast and supper ??? rOPINIRole (Requip) 0.5 MG tablet TAKE 1 TABLET BY MOUTH EVERY DAY AT BEDTIME FOR 30 DAYS ??? spironolactone (ALDACTONE) 50 MG tablet ??? traZODone (DESYREL) 150 MG tablet Take [...] - Linear) Right Left Dist cc 20/40 Prosthetic Correction: Glasses Tonometry (Tonopen, 11:09 AM) Right Left Pressure 13 Pupils Dark Light Shape React APD Right 3 2.5 Round Slow None Left Visual Bay (Counting fingers) Left Right Full Restrictions Total superior temporal, inferior temporal, superior nasal, inferior nasal deficiencies Extraocular Movement Not assessed Neuro/Psych Oriented x3: Yes Mood/Affect: Normal Dilation Right eye: 1.0% Mydriacyl, 2.5% Slade Synephrine @ 11:09 AM Slit Lamp and Fundus Exam External [...] Periphery Normal Refraction Wearing Rx Sphere Cylinder Roundup Right -2.75 +1.50 140 Left Balance Age: 2yr Type: SVL Studies 08/24/2022 OD: Normal retina crosssection with preservation of fovea, clivus, and cellular lamina OS: prosthetic Extended Ophthalmoscopy: OD: Optic nerve pink with sharp margins, macula flat, vessels wnl, periphery attached 360 OS: proosthetic Assessment/Plan: Cesario Jewell is a 42 year old female s/p 25g PPV OD for??visually significant vitreous opacities/PVD??(04/18/20) - PPV performed due to??significant effect on daily activities and poor performance at work due to PVD - Doing well today, symptoms stable, normal DFE in areas seen- limited view secondary to poor dilation - normal foveal contour on OCT ?? Prosthetic Eye??OS?? 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 Congenital glaucoma OD - Risk Factors: - FHx [...] 3 Piece in the sulcus ?? PLAN -continue latanoprost qhs OD -Reviewed RD warning signs, instructed to call immediately with any concerns -Continue last dipper polycarbonate glasses wear as monocular precaution -continue Follow up with Glaucoma service- next 01/05/23 -Follow up with Dr. Roa in 2 years for DFE and OCT Pt seen with Dr. Crispin Goncalves MD Ophthalmology 08/24/2022 I reviewed and confirmed the techs ROS, past histories, and readings. I have personally seen and examined the patient, and reviewed in detail the findings of the resident/fellow. I have personally performed the extended ophthalmoscopy.The final examination findings, image interpretations, and plan as documented in the record represent my personal judgment and conclusions. with the following additions or corrections: Follow up: 9 months, DFE OD, OCT [place] OD Chrystal Roa MD Attending, Retina and Uveitis Service Date of Service: 08/24/2022 documented in this encounter Plan of Treatment Upcoming Encounters Date Type Department Care Team (Late st Contact Info) Description 06/07/2024 1:00 PM TRAINING PROGRAM DEVELOPER Office Visit [facility] - Op[facility]mology [address] [place] [address] [phone] Chrystal Roa MD [address] [place] [address] [place] [phone] 06/23/2024 2:00 PM TRAINING PROGRAM DEVELOPER Office Visit [facility] Ophthalmology [address] [place] [address] [phone] Fidel Moss MD [address] [place] [address] [phone] documented as of this encounter Procedures Procedure Name Priority Date/Time Associated Diagnosis Comments OPH OCT TEST [facility] Routine 08/24/2022 10:40 AM CDT History of vitrectomy documented in this encounter Results * OCT (08/24/2022 10:40 AM CDT) Anatomical Region Laterality Modality Other 08/24/2022 10:4 0 AM CDT Chrystal Roa MD OPHTHALMOLOGY SERVIC ES ORDERABLES documented in this encounter Visit Diagnoses Diagnosis History of vitrectomy- Primary Other states following surgery of eye and adnexa Status post vitrectomy surgery for vitreous floaters, right eye 04/18/2020 Other states following surgery of eye and adnexa Secondary glaucoma, mild stage, right Pseudophakia Lens replaced by other means Prosthetic eye globe Eye globe replaced by other means 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
--- OUTSIDE RECORDS SUMMARY | 2024-05-13 22:20 | XMS_ITS | Encounter Summary ---
Author Organization [facility] Health Address [address] [place] [address] Care Team Providers Care Epoxy Coatings Installer Name Role Phone Martha Lawrence MD Primary Care Provider [phone] Encounter Details Date Type Department Care Team (Latest Contact Info) Description 03/06/2021 Travel Social History Tobacco Use Types Packs/Day [...] have Coronavirus / COVID-19? No / Unsure 03/06/2021 9:33 AM CDT documented as of this encounter [...] st Contact Info) Description 06/07/2024 1:00 PM TOLL COLLECTOR Office Visit [facility] [address] [place] [address] [phone] Chrystal Roa MD [address] [place] [address] [place] [phone] 06/23/2024 2:00 PM TOLL COLLECTOR Office Visit [facility] [address] [place] [phone] Fidel Moss MD [address] [place] [address] [phone] documented as of this encounter Visit Diagnoses Not on filedocumented in this encounter Care Teams Epoxy Coatings Installer Relationship Specialty Start Date End Date Martha Lawrence MD PCP - General 03/21/20 documented as of this encounter
--- OUTSIDE RECORDS SUMMARY | 2024-05-13 22:20 | XMS_ITS | Encounter Summary ---
Author Organization [facility] Health Address [address] [place] [address] Care Team Providers Care Script Editor Name Role Phone Martha Lawrence MD Primary Care Provider [phone] Encounter Details Date Type Department Care Team (Latest Contact Info) Description 10/28/2020 Travel Social History Tobacco Use Types Packs/Day [...] have Coronavirus / COVID-19? No / Unsure 10/28/2020 11:53 AM CDT documented as of this encounter [...] st Contact Info) Description 06/07/2024 1:00 PM TAX DIRECTOR Office Visit [facility] [address] [place] [address] [phone] Chrystal Roa MD [address] [place] [address] [place] [phone] 06/23/2024 2:00 PM TAX DIRECTOR Office Visit [facility] [address] [place] [phone] Fidel Moss MD [address] [place] [address] [phone] documented as of this encounter Visit Diagnoses Not on filedocumented in this encounter Care Teams Script Editor Relationship Specialty Start Date End Date Martha Lawrence MD PCP - General 03/21/20 documented as of this encounter
--- OUTSIDE RECORDS SUMMARY | 2024-05-13 22:20 | XMS_ITS | Encounter Summary ---
Author Organization [facility] Health Address [address] [place] [address] Care Team Providers Care Customer Support Executive Name Role Phone Martha Lawrence MD Primary Care Provider [phone] Encounter Details Date Type Department Care Team (Latest Contact Info) Description 10/09/2020 Travel Social History Tobacco Use Types Packs/Day [...] have Coronavirus / COVID-19? No / Unsure 10/09/2020 1:42 PM CDT documented as of this encounter [...] st Contact Info) Description 06/07/2024 1:00 PM SANITATION DIRECTOR Office Visit [facility] [address] [place] [phone] Chrystal Roa MD [address] [place] [address] [place] [phone] 06/23/2024 2:00 PM SANITATION DIRECTOR Office Visit [facility] [address] [place] [phone] Fidel Moss MD [address] [place] [address] [phone] documented as of this encounter Visit Diagnoses Not on filedocumented in this encounter Care Teams Customer Support Executive Relationship Specialty Start Date End Date Martha Lawrence MD PCP - General 03/21/20 documented as of this encounter
--- OUTSIDE RECORDS SUMMARY | 2024-05-13 22:20 | XMS_ITS | Encounter Summary ---
Author Organization [facility] Address [address] [address] Care Team Providers Care Claim Approver Name Role Phone Martha Lawrence MD Primary Care Provider [phone] Reason for Visit * Reason Onset Date Comments Referral 11/19/2022 Encounter Details Date Type Department Care Team (Late st Contact Info) Description 11/19/2022 Telephone [facility] [address] [place] [phone] Fidel Moss MD [address] [place] [phone] Referral Social History Tobacco Use Types Packs/Day Years [...] encounter Miscellaneous Notes * Telephone Encounter - Pilar Alvarado - 11/19/2022 9:33 AM CDT error documented in this encounter Plan of Treatment Upcoming Encounters Date Type Department Care Team (Late st Contact Info) Description 06/07/2024 1:00 PM AEROTRIANGULATION SPECIALIST Office Visit [facility] [address] [place] [address] [phone] Chrystal Roa MD [address] [place] [address] DEPT [place] [phone] 06/23/2024 2:00 PM AEROTRIANGULATION SPECIALIST Office Visit [facility] [address] [place] [address] [phone] Fidel Moss MD [address] [place] [phone] documented as of this encounter Visit Diagnoses Not on filedocumented in this encounter Care Teams Claim Approver Relationship Specialty Start Date End Date Martha Lawrence MD PCP - General 03/21/20 documented as of this encounter
--- OUTSIDE RECORDS SUMMARY | 2024-05-13 22:20 | XMS_ITS | Encounter Summary ---
Author Organization [facility] Health Address [address] [place] [address] Care Team Providers Care Police Pilot Name Role Phone Martha Lawrence MD Primary Care Provider [phone] Encounter Details Date Type Department Care Team (Latest Contact Info) Description 04/14/2021 Travel Social History Tobacco Use Types Packs/Day [...] COVID-19? No / Unsure 04/14/2021 5:37 PM CHEMICAL PROCESSING EQUIPMENT REPAIRER documented as of this encounter Functional Status [...] st Contact Info) Description 06/07/2024 1:00 PM CHEMICAL PROCESSING EQUIPMENT REPAIRER Office Visit [facility] [address] [place] [phone] Chrystal Roa MD [address] [place] [address] [place] [phone] 06/23/2024 2:00 PM CHEMICAL PROCESSING EQUIPMENT REPAIRER Office Visit [facility] - Ophthalmology [address] [place] [phone] Fidel Moss MD [address] [place] [address] [phone] documented as of this encounter Visit Diagnoses Not on filedocumented in this encounter Care Teams Police Pilot Relationship Specialty Start Date End Date Martha Lawrence MD PCP - General 03/21/20 documented as of this encounter
--- OUTSIDE RECORDS SUMMARY | 2024-05-13 22:20 | XMS_ITS | Encounter Summary ---
Author Organization [facility] Address [address] [place] [address] Care Team Providers Care Coordinator Of Rehabilitation Services Name Role Phone Martha Lawrence MD Primary Care Provider [phone] Encounter Details Date Type Department Care Team (Latest Contact Info) Description 07/03/2022 Travel Social History Tobacco Use Types Packs/Day [...] suspected to have Coronavirus/COVID-19? No / Unsure 07/03/2022 8:48 AM PATTERN MOLDER documented as of this encounter Functional Status [...] st Contact Info) Description 06/07/2024 1:00 PM PATTERN MOLDER Office Visit [facility] [address] [place] [address] [phone] Chrystal Roa MD [address] [place] [address] [place] [phone] 06/23/2024 2:00 PM PATTERN MOLDER Office Visit [facility] - Ophthalmology [address] [place] [address] [phone] Fidel Moss MD [address] [place] [address] [phone] documented as of this encounter Visit Diagnoses Not on filedocumented in this encounter Care Teams Coordinator Of Rehabilitation Services Relationship Specialty Start Date End Date Martha Lawrence MD PCP - General 03/21/20 documented as of this encounter
--- OUTSIDE RECORDS SUMMARY | 2024-05-13 22:20 | XMS_ITS | Encounter Summary ---
Author Organization [facility] Health Address [address] [place] [address] Care Team Providers Care Tangible Personal Property Appraiser Name Role Phone Martha Lawrence MD Primary Care Provider Encounter Details Date Type Department Care Team (Latest Contact Info) Description 10/21/2020 Travel Social History Tobacco Use Types Packs/Day [...] have Coronavirus / COVID-19? No / Unsure 10/21/2020 9:27 AM CDT documented as of this encounter [...] st Contact Info) Description 06/07/2024 1:00 PM OIL AGENT Office Visit [facility] [address] [place] [address] [phone] Chrystal Roa MD [address] [place] [address] [place] [phone] 06/23/2024 2:00 PM OIL AGENT Office Visit [facility] [address] [place] [phone] Fidel Moss MD [address] [place] [address] [phone] documented as of this encounter Visit Diagnoses Not on filedocumented in this encounter Care Teams Tangible Personal Property Appraiser Relationship Specialty Start Date End Date Martha Lawrence MD PCP - General 03/21/20 documented as of this encounter
--- OUTSIDE RECORDS SUMMARY | 2024-05-13 22:20 | XMS_ITS | Encounter Summary ---
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 Encounter Details Date Type Department Care Team (Late st Contact Info) Description 09/11/2021 8:40 AM CDT Office Visit [facility] [place] [phone] Congenital glaucoma of right eye (Primary Dx) Social History Tobacco Use [...] PHQ-2 Answer Date Recorded PHQ2 TOTAL SCORE 2 09/01/2021 Sex and Gender Information Value Date Recorded Sex Assigned at Not on file Gender Identity Not on file Sexual Orientation Not on file COVID-19 Exposure Response Date Recorded In the last 10 days, have yo u been in contact with someone who was confirmed or suspected to have Coronavirus/COVID-19? No / Unsure 08/18/2021 4:32 PM CDT documented as of this encounter [...] No 09/23/2020 documented as of this encounter Progress Notes * Von Camara - 09/11/2021 9:49 AM CDT Ophthalmology Office Note Subjective: Cesario Jewell is an 41 year old Chief Complaint Patient presents with ??? Follow-up H/O Congenital glaucoma OD with prosthetic OS Ms. Cesario Jewell is a 41 year old female, last seen by Drs. Machado / Anitha x 06/26/2021, returns to glaucoma clinic for HVF 24-2 GENOVEVA Faster OD and IOP check after switching from Combigan BID OD -->Xalatan QHS OD. 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 No flashes. She is also curious if weight loss could be correlated to visionissues? Family H/O diabetes and she, herself, is pre-diabetic. Pt states she is using and knows it by name: [Right Eye] ?? Latanoprost / Xalatan (teal top) QHS - Pt states it is more affordable [Left Eye / Prosthesis] ?? Washes with water H/O Pre-diabetes using Ozempic injections Last A1C: 4.9 (1+ yr ago, 09/06/2020 under Lab tab) Does not check BG regularly Current Outpatient Medications Medication Sig Dispense Refill [...] Reasons: Mood Disorder 90 tablet 0 ??? atomoxetine (STRATTERA) 40 MG capsule TAKE 1 CAPSULE BY MOUTH EVERY DAY FOR 90 DAYS ??? BLISOVI 24 FE 1-20 MG-MCG(24) tablet TAKE 1 TABLET BY MOUTH EVERY DAY ??? brimonidine-timolol (COMBIGAN) 0.2-0.5 % ophthalmic solution Instill 1 drop into right eye 2 times daily (Patient not taking: Reported on 09/11/2021) 5 mL 0 ??? buPROPion XL 24hr (WELLBUTRIN-XL) 150 MG tablet Take 1 (one) tablet by mouth once daily Reasons: Depression 30 tablet 2 ??? Cholecalciferol 125 MCG (5000 UT) Take 5,000 Units by mouth once daily ??? escitalopram (LEXAPRO) 20 MG tablet Take 1 (one) tablet by mouth once daily Reasons: Major Depressive Disorder 30 tablet 1 ??? esketamine, 84 MG Dose, (SPRAVATO) 28 MG/DEVICE nasal spray [place] 84 (eighty four) mg into the nose every 14 days Reasons: Depression 3 Each 5 ??? fluticasone propionate (FLONASE) 50 MCG/ACT nasal spray ??? lamoTRIgine (LAMICTAL) 100 MG tablet ??? latanoprost (XALATAN) 0.005 % ophthalmic solution Instill 1 (one) drop into right eye at bedtime 7.5 mL 4 ??? montelukast (SINGULAIR) 10 MG tablet Take 2 (two) tablets by mouth at bedtime Reasons: Asthma (Patient taking differently: Take 10 mg by mouth at bedtime Reasons: Asthma) 30 tablet 1 ??? nebivolol (BYSTOLIC) 5 MG tablet ??? OZEMPIC, 1 MG/DOSE, 4 MG/3ML SOPN [...] disease 06/26/2014 GERD (gastroesophageal reflux disease) ??? H/O vitrectomy 04/18/2020 OD ??? History [...] History Tobacco Use ??? Smoking status: Never Smoker ??? Smokeless tobacco: Never Used Vaping Use ??? Vaping Use: Never used Substance Use Topics ??? Alcohol use: Never ??? Drug use: Never Objective: Base Eye Exam Visual Acuity (Snellen - Linear) Right Left Dist cc 20/30 Prosthesis Correction: Glasses Tonometry (Tonopen, 9:15 AM) Right Left Pressure 22 N/A Tonometry #2 (Applanation, 10:12 AM) Right Left Pressure 23 Tonometry Comments OS: Prosthesis Pachymetry (06/21/2020) Right Left Thickness 641 Pupils Dark Light Shape React APD Right 3.5 2.5 Round Brisk None Left Prosthesis Visual Bay OS: Prosthesis Extraocular Movement Right Left Grossly Full Prosthesis -- -- -- -- -- -- -- -- -- -- -- -- -- -- -- -- Neuro/Psych Oriented x3: Yes Mood/Affect: Normal Dilation Right eye: 1.0% Mydriacyl, 2.5% Slade Synephrine @ 9:16AM Slit Lamp and Fundus Exam External Exam Right Left External Normal Normal Slit Lamp Exam Right Left Lids/Lashes Normal Normal Conjunctiva/Sclera Bleb formation over ahmed ST Prosthetic Cornea Clear, horizontal stria inferiorly, vertical stria laterally Anterior Chamber Deep and quiet Iris Round and reactive Lens Sulcus lens Vitreous Post PPV, tube in vitreous poorly visible Fundus Exam Right Left Disc Normal C/D Ratio 0.4 Macula Normal Vessels Normal Periphery Normal, limited views 2/2 poor dilation Refraction Wearing Rx Sphere Cylinder [place] Right -2.75 +1.50 140 Left Balance Age: 2 yr Type: SVL Today's vision: Visual Acuity (Snellen - Linear) Right Left Dist cc 20/30 Prosthesis Correction: Glasses Today's intraocular pressure: Tonometry (Tonopen, 9:15 AM) Right Left Pressure 22 N/A Tonometry #2 (Applanation, 10:12 AM) Right Left Pressure 23 Tonometry Comments OS: Prosthesis Assessment/Plan: Cesario Jewell is a 41 year old female #Congenital glaucoma OD, mild stage, monocular - Risk Factors: ?? FHx mom ?? Race AA ?? Steroid use denies ?? Trauma denies ?? Refractive error -2.75 ?? YEMI / COPD / Blood Transfusion - no - Pachy: 641 - Gonio RK (06/26/21): open to SS 360 with 2+ pigment ou - Tmax 54 - Target: wnl ?? - Meds/compliance: Latanoprost QHS OD (was previously on Combigan BID OD but switched 2/2 cost) ?? - Laser/Surgery Hx: ?? S/p CE/IOL as toddler ?? 25g PPV OD for symptomatic PVD (04/18/20) ?? s/p Ahmed??with pars plana tube OD??07/03/20 ?? s/p??Ahmed tube revision??(shortening the tube),??right??eye??for tube in visual axis??09/23/20 ?? - Testing: ?? OCT 06/26/21 RNFL 76 ( thin) ?? HVF 09/11/21 GENOVEVA Faster: No clear glaucoma deficit, no specific nasal depressions. VFI 98% ?? Disc photos (06/26/21) - mild cupping ?? - Synopsis: 41 year old yo monocular pt with h/o congenital glaucoma. Tmax 54, and mostly in low 20s after Ahmed in 2020. Was started prior on combigan BID with IOPn mid-teens. Switched to Lat QHS 2/2 cost issues last visit, IOP low 20s today. HVF full today OD. Will plan on repeating HVF every 6 month ?? #Pseudophakia OD - 3 Piece in the sulcus ?? 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 #S/p 25g PPV for??VS PVD OD??(04/18/20) - PPV performed due to??significant effect on daily activities and poor performance at work due to PVD - Follows with Dr. Roa - Reporting a few more floaters than usual today, dilated today, noRT/RD appreciated despite poor dilation ?? Plan: - Monocular precautions - Continue Latanoprost QHS OD - Continue f/u with Dr. Roa - RD/vit heme symptoms reviewed, patient instructed to call immediatly/go to the ED if symptoms occur - RTC in 6 month for repeat HVF GENOVEVA Faster and OCT (will plan on repeating HVF every 6 month) Von Camara MD I reviewed and confirmed the techs ROS, past histories, and readings. I have personally seen and examined the patient, and reviewed in detail the findings of the resident. I have personally performedthe ophthalmology exam and updated the notes accordingly.The final examination findings, image interpretations, and plan as documented in the record represent my personal judgment and conclusions with the following additions or corrections: Impression: See Above Impression IOP ok at low 20s for patient. Healthy appearing rim on exam with full bay. Recommend following with bay q 6 months. 6 months HVF 24-2 Genoveva faster OD Kaushik Bowser MD Glaucoma Attending Date of Service: 09/11/2021 documented in this encounter Plan of Treatment Upcoming Encounters Date Type Department Care Team (Late st Contact Info) Description 06/07/2024 1:00 PM CYBER SECURITY INSTRUCTOR Office Visit [facility] - Ophthalmology [address] [place] [phone] Chrystal Roa MD [address] [place] [address] [place] [phone] 06/23/2024 2:00 PM CYBER SECURITY INSTRUCTOR Office Visit [facility] - Ophthalmology [address] [place] [phone] Fidel Moss MD [address] [place] [phone] documented as of this encounter Procedures Procedure Name Priority Date/Time Associated Diagnosis Comments OPH VISUAL FIELD TEST [facility] Routine 09/11/2021 9:03 AM CDT Congenital glaucoma of right eye documented in this encounter Results * Visual Bay (09/11/2021 9:03 AM CDT) Anatomical Region Laterality Modality Other 09/11/2021 9:03 AM CDT Kaushik Bowser MD OPHTHALMOLOGY SE RVICES ORDERABLES documented in this encounter Visit Diagnoses Diagnosis Congenital glaucoma of right eye- Primary documented in this encounter Care Teams Orthodontist Vice President Relationship Specialty Start Date End Date Martha Lawrence MD PCP - General 03/21/20 documented as of this encounter
--- OUTSIDE RECORDS SUMMARY | 2024-05-13 22:20 | XMS_ITS | Encounter Summary ---
Author Organization [facility] Address [address] [place] [address] Care Team Providers Care Fur Machine Operator Name Role Phone Martha Lawrence MD Primary Care Provider [phone] Encounter Details Date Type Department Care Team (Latest Contact Info) Description 05/26/2021 Travel Social History Tobacco Use Types Packs/Day [...] have Coronavirus / COVID-19? No / Unsure 05/26/2021 2:12 PM MIXING AND DISPENSING SUPERVISOR documented as of this encounter Functional Status [...] st Contact Info) Description 06/07/2024 1:00 PM MIXING AND DISPENSING SUPERVISOR Office Visit [facility] [address] [place] [phone] Chrystal Roa MD [address] [place] [address] [place] [phone] 06/23/2024 2:00 PM MIXING AND DISPENSING SUPERVISOR Office Visit [facility] - Ophthalmology [address] [place] [phone] Fidel Moss MD [address] [place] [phone] documented as of this encounter Visit Diagnoses Not on filedocumented in this encounter Care Teams Fur Machine Operator Relationship Specialty Start Date End Date Martha Lawrence MD PCP - General 03/21/20 documented as of this encounter
--- OUTSIDE RECORDS SUMMARY | 2024-05-13 22:20 | XMS_ITS | Encounter Summary ---
Author Organization [facility] Address [address] [place] [address] Care Team Providers Care Steam Setter Name Role Phone Martha Lawrence MD Primary Care Provider [phone] Encounter Details Date Type Department Care Team (Late st Contact Info) Description 03/05/2021 Orders Only [facility] Phys Standard [address] [place], [place] [phone] Shade Reddy MD [address] [place], [place] [phone] Social History Tobacco Use Types Packs/Day Years [...] st Contact Info) Description 06/07/2024 1:00 PM MEAT TEAM LEAD Office Visit [facility] [address] [place] [phone] Chrystal Roa MD [address] [place] [address] [place] [phone] 06/23/2024 2:00 PM MEAT TEAM LEAD Office Visit [facility] - Ophthalmology [address] [place] [phone] Fidel Moss MD [address] [place] [phone] documented as of this encounter Visit Diagnoses Not on filedocumented in this encounter Care Teams Steam Setter Relationship Specialty Start Date End Date Martha Lawrence MD PCP - General 03/21/20 documented as of this encounter
--- OUTSIDE RECORDS SUMMARY | 2024-05-13 22:20 | XMS_ITS | Encounter Summary ---
Author Organization [facility] Health Address [address] [place] [address] Care Team Providers Care Skeins Yarn Examiner Name Role Phone Martha Lawrence MD Primary Care Provider [phone] Encounter Details Date Type Department Care Team (Latest Contact Info) Description 02/03/2021 Travel Social History Tobacco Use Types Packs/Day [...] have Coronavirus / COVID-19? No / Unsure 02/03/2021 5:12 PM CDT documented as of this encounter [...] st Contact Info) Description 06/07/2024 1:00 PM GENERATION ENGINEERING TECHNOLOGIST Office Visit [facility] [address] [place] [phone] Chrystal Roa MD [address] [place] [address] [place] [phone] 06/23/2024 2:00 PM GENERATION ENGINEERING TECHNOLOGIST Office Visit [facility] [address] [place] [phone] Fidel Moss MD [address] [place] [phone] documented as of this encounter Visit Diagnoses Not on filedocumented in this encounter Care Teams Skeins Yarn Examiner Relationship Specialty Start Date End Date Martha Lawrence MD PCP - General 03/21/20 documented as of this encounter
--- OUTSIDE RECORDS SUMMARY | 2024-05-13 22:20 | XMS_ITS | Encounter Summary ---
Author Organization [facility] Health Address [address] [place] [address] Care Team Providers Care Software Quality Tester Name Role Phone Martha Lawrence MD Primary Care Provider [phone] Encounter Details Date Type Department Care Team (Latest Contact Info) Description 03/31/2021 Travel Social History Tobacco Use Types Packs/Day [...] COVID-19? No / Unsure 03/31/2021 12:54 PM DIMENSIONAL ENGINEER documented as of this encounter Functional Status [...] st Contact Info) Description 06/07/2024 1:00 PM DIMENSIONAL ENGINEER Office Visit [facility] [address] [place] [phone] Chrystal Roa MD [address] [place] [address] [place] [phone] 06/23/2024 2:00 PM DIMENSIONAL ENGINEER Office Visit [facility] [address] [place] [phone] Fidel Moss MD [address] [place] [address] [phone] documented as of this encounter Visit Diagnoses Not on filedocumented in this encounter Care Teams Software Quality Tester Relationship Specialty Start Date End Date Martha Lawrence MD PCP - General 03/21/20 documented as of this encounter
--- OUTSIDE RECORDS SUMMARY | 2024-05-13 22:20 | XMS_ITS | Encounter Summary ---
Author Organization [facility] Address [address] [place] [address] Care Team Providers Care Lottery Manager Name Role Phone Martha Lawrence MD Primary Care Provider [phone] Encounter Details Date Type Department Care Team (Latest Contact Info) Description 07/08/2021 Travel Social History Tobacco Use Types Packs/Day [...] have Coronavirus / COVID-19? No / Unsure 07/08/2021 3:28 PM CUSTOMER SPECIALIST documented as of this encounter Functional Status [...] Contact Info) Description 06/07/2024 1:00 PM CUSTOMER SPECIALIST Office Visit [facility] [address] [place] [phone] Chrystal Roa MD [address] [place] [address] [place] [phone] 06/23/2024 2:00 PM CUSTOMER SPECIALIST Office Visit [facility] - Ophthalmology [address] [place] [phone] Fidel Moss MD [address] [place] [phone] documented as of this encounter Visit Diagnoses Not on filedocumented in this encounter Care Teams Lottery Manager Relationship Specialty Start Date End Date Martha Lawrence MD PCP - General 03/21/20 documented as of this encounter
--- OUTSIDE RECORDS SUMMARY | 2024-05-13 22:20 | XMS_ITS | Encounter Summary ---
Author Organization [facility] Address [address] [place] [address] Care Team Providers Care Special Education Professor Name Role Phone Martha Lawrence MD Primary Care Provider [phone] Encounter Details Date Type Department Care Team (Latest Contact Info) Description 03/31/2022 Travel Social History Tobacco Use Types Packs/Day [...] suspected to have Coronavirus/COVID-19? No / Unsure 03/31/2022 2:26 PM PEANUT VENDOR documented as of this encounter Functional Status [...] st Contact Info) Description 06/07/2024 1:00 PM PEANUT VENDOR Office Visit [facility] - Ophthalmology [address] [place] [phone] Chrystal Roa MD [address] [place] [address] [place] [phone] 06/23/2024 2:00 PM PEANUT VENDOR Office Visit [facility] - Op[facility]mology [address] [place] [phone] Fidel Moss MD [address] [place] [phone] documented as of this encounter Visit Diagnoses Not on filedocumented in this encounter Care Teams Special Education Professor Relationship Specialty Start Date End Date Martha Lawrence MD PCP - General 03/21/20 documented as of this encounter
--- OUTSIDE RECORDS SUMMARY | 2024-05-13 22:20 | XMS_ITS | Encounter Summary ---
Author Organization [facility] Address [address] [place] [address] Care Team Providers Care Business Banking Representative Name Role Phone Martha Lawrence MD Primary Care Provider [phone] Reason for Visit * Reason Comments Post-Op Encounter Details Date Type Department Care Team (Late st Contact Info) Description 11/01/2020 8:30 AM CDT Office Visit [facility] [address] [place] [phone] Fidel Moss MD [address] [place] [phone] Postsurgical states following surgery of eye and [...] * Patient Instructions* Kasey Duffy MD - 11/01/2020 10:16 AM CDT It was a pleasure seeing you today in the [facility] Ophthalmology clinic, which is now located on the [place] Level at the [facility] ([address] [place] [address]). Call us immediately with any sudden change [...] the weekend, you will need to call [facility] ([phone]), dial [phone] for the shrink pit operator, and say you are an eye patient and need to speak with the eye doctor gps navigation installer. They will contact one of the eye doctors who will call you and address your concerns. Again, our clinic is now located in the [facility]. The address is [address] [place] [address]. Our clinic is located on the [place]. If you are driving, you should park on the BLUE SIDE of the parking garage and proceed to the [place] Level of the [facility]. documented in this encounter Progress Notes * Kasey Duffy MD - 11/01/2020 9:25 AM CDT Ophthalmology Office Note Subjective: Cesario Jewell is an 40 year old Chief Complaint Patient presents with ??? Post-Op Cesario Jewell is a 40 year old female who presents for a dilated post op visit - s/p Ahmed tube revision (shortening of the tube) OD 09/23/20. Pt denies any pain and states Va is about the same. Pt states used gtts as directed until they ran out, and not not using any gtt at this time. Pt states she can not find her specs at this time. Current Outpatient Medications Medication Sig Dispense Refill ??? albuterol HFA (PROVENTIL;VENTOLIN;PROAIR) 108 (90 Base) MCG/ACT inhaler Inhale 2 (two) puffs bymouth every 6 hours as needed for Shortness of Breath or Wheezing Reasons: Asthma 1 Inhaler 1 ??? ALPRAZolam (XANAX) 0.5 MG tablet TAKE 1 TABLET TWICE A DAY BY ORAL ROUTE NEEDED FOR 30 DAYS. ??? amLODIPine (NORVASC) 5 MG tablet Take 1 (one) tablet by mouth once daily Reasons: High Blood Pressure Disorder (Patient taking differently: Take 10 mg by mouth once daily Reasons: High Blood Pressure Disorder) 30 tablet 1 ??? buPROPion XL 24hr (WELLBUTRIN-XL) 150 MG tablet Take 1 (one) tablet by mouth once daily Reasons: Depression 30 tablet 1 ??? escitalopram (LEXAPRO) 20 MG tablet Take 1 (one) tablet by mouth once daily Reasons: Major Depressive Disorder 30 tablet 1 ??? esketamine, 14 mg/spray, (SPRAVATO) nasal spray [place] 56 (fifty six) mg into the nose Two timesa week Reasons: Major Depressive Disorder 2 Each 1 ??? FLOVENT HFA 44 MCG/ACT inhaler ??? [...] bedtime Reasons: Asthma) 30 tablet 1 ??? OLANZapine, disintegrating, (ZYPREXA ZYDIS) 10 MG tablet Take 1 (one) tablet by mouth once daily as needed (Agitation.) Reasons: Mood Disorder 90 tablet 0 ??? omeprazole (PRILOSEC) 20 MG capsule as needed ??? Semaglutide (RYBELSUS PO) ??? traZODone (DESYREL) 150 MG tablet Take 150 (one hundred fifty) mg by mouth at bedtime Reasons: Major Depressive Disorder 30 tablet 1 ??? XULANE 150-35 MCG/24HR patch (Patient not taking: Reported on 11/01/2020) No current facility-administered medications for this visit. Allergies Allergen Reactions ??? Penicillins Urticaria, Rash and Skin Reactions ??? Sulfa Drugs Urticaria, Rash and Itching ??? Sulfacetamide Urticaria, Rash, Eye Discomfort and Eye Itching ??? Povidone-Iodine Eye Redness and Eye Itching ??? Oxycodone-Acetaminophen Diarrhea, Nausea and/or Vomiting and Vomiting Objective: Base Eye Exam Visual Acuity (Snellen - Linear) Right Left Dist sc 20/50 -3 Prothesis Dist ph sc 20/40 +1 Tonometry (Tonopen, 9:15 AM) Right Left Pressure 17 - Tonometry #2 (applanation-kb, 9:36 AM) Right Left Pressure 22 Pachymetry (06/21/2020) Right Left Thickness 641 Pupils Dark Light Shape React APD Right 3 2 Round Brisk None Left Prosthesis Visual Bay Left Right Restrictions Total superior temporal, inferior temporal, superior nasal, inferior nasal deficiencies Partial outer superior temporal, inferior temporal, superior nasal, inferior nasal deficiencies Prothesis OS Extraocular Movement Right Left Nystagmus Prosthesis -- -- -- -- -- -- -- -- -- -- -- -- -- -- -- -- Neuro/Psych Oriented x3: Yes Mood/Affect: Normal Dilation Right eye: 1.0% Mydriacyl, 2.5% Slade Synephrine @ 9:16 AM Slit Lamp and Fundus Exam External Exam Right Left External Normal Slit Lamp Exam Right Left Lids/Lashes Normal pros Conjunctiva/Sclera good bleb formation over ahmed Cornea Clear, inferior endopigment Anterior Chamber Deep and quiet Iris Round and reactive Lens Sulcus lens, seommering ring Vitreous Normal Fundus Exam Right Left Disc Normal C/D Ratio 0.4 Macula Normal Vessels Normal Periphery Normal Refraction Manifest Refraction Sphere Cylinder [place] Dist VA Right -2.75 +1.50 140 20/25-2 Left Balance Final Rx Sphere Cylinder [place] Dist VA Right -2.75 +1.50 140 20/25-2 Left Balance Comments: Polycarbonate glasses Studies 11/01/2020: None Assessment/Plan: #POM1 s/p??Ahmed tube revision??(shortening the tube),??right??eye for tube in visual axis 09/23/20 -Patient happy [...] due to PVD - Follows with Dr. Valdez ?? 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 #??Pseudophakia, OD - Soemmering ring present with sulcus IOL -??Monocular precautions - States glasses are polycarbonate ?? PLAN -continue off drops at this time -next available glaucoma follow up for DFE and disc photos on the right -follow up with Dr. VALDEZ?? -MRx for polycarbonate glasses provided today, patient to wear at all times Patient discussed with Dr. Isa Duffy MD, PGY2 Ophthalmology ATTENDING NOTE.... The patient is adequately recovered from recent surgeries, we will plan repeat dilated fundus exam and baseline disc photos right eye. We will consider resuming glaucoma medication if needed thereafter. Also keep appointment with Dr. Valdez as scheduled later this year Fidel Moss MD (by voice recognition software) 11/01/2020 10:41 AM documented in this encounter Plan of Treatment Upcoming Encounters Date Type Department Care Team (Late st Contact Info) Description 06/07/2024 1:00 PM NURSERY LABORER Office Visit [facility] [address] [place] [phone] Chrystal Valdez MD [address] [place] [address] [place] [phone] 06/23/2024 2:00 PM NURSERY LABORER [facility] [address] [place] [phone] Fidel Moss MD [address] [place] [phone] documented as of this encounter Visit Diagnoses Diagnosis Postsurgical states following surgery of eye and adnexa- Primary Other states following surgery of eye and adnexa documented in this encounter Care Teams Business Banking Representative Relationship Specialty Start Date End Date Martha Lawrence MD PCP - General 03/21/20 documented as of this encounter
--- OUTSIDE RECORDS SUMMARY | 2024-05-13 22:20 | XMS_ITS | Encounter Summary ---
Author Organization [facility] Address [address] [place] [address] Care Team Providers Care Research Biologist Name Role Phone Martha Lawrence MD Primary Care Provider [phone] Encounter Details Date Type Department Care Team (Latest Contact Info) Description 11/25/2020 Travel Social History Tobacco Use Types Packs/Day [...] have Coronavirus / COVID-19? No / Unsure 11/25/2020 1:58 PM CDT documented as of this encounter [...] st Contact Info) Description 06/07/2024 1:00 PM MEDICAL FACILITIES SECTION DIRECTOR Office Visit [facility] [address] [place] [phone] Chrystal Roa MD [address] [place] [address] [place] [phone] 06/23/2024 2:00 PM MEDICAL FACILITIES SECTION DIRECTOR Office Visit [facility]mology [address] [place] [phone] Fidel Moss MD [address] [place] [address] [phone] documented as of this encounter Visit Diagnoses Not on filedocumented in this encounter Care Teams Research Biologist Relationship Specialty Start Date End Date Martha Lawrence MD PCP - General 03/21/20 documented as of this encounter
--- OUTSIDE RECORDS SUMMARY | 2024-05-13 22:20 | XMS_ITS | Encounter Summary ---
Author Organization [facility] Address [address] [place] [address] Care Team Providers Care Bench Patternmaker Metal Name Role Phone Martha Lawrence MD Primary Care Provider [phone] Encounter Details Date Type Department Care Team (Latest Contact Info) Description 04/29/2021 Travel Social History Tobacco Use Types Packs/Day [...] have Coronavirus / COVID-19? No / Unsure 04/29/2021 5:17 PM ARTIFICIAL INTELLIGENCE SPECIALIST documented as of this encounter Functional [...] st Contact Info) Description 06/07/2024 1:00 PM ARTIFICIAL INTELLIGENCE SPECIALIST Office Visit [facility] [address] [place] [phone] Chrystal Roa MD [address] [place] [address] [place] [phone] 06/23/2024 2:00 PM ARTIFICIAL INTELLIGENCE SPECIALIST Office Visit [facility] - Ophthalmology [address] [place] [phone] Fidel Moss MD [address] [place] [address] [phone] documented as of this encounter Visit Diagnoses Not on filedocumented in this encounter Care Teams Bench Patternmaker Metal Relationship Specialty Start Date End Date Martha Lawrence MD PCP - General 03/21/20 documented as of this encounter
--- OUTSIDE RECORDS SUMMARY | 2024-05-13 22:20 | XMS_ITS | Encounter Summary ---
Author Organization [facility] Address [address] [place] [address] Care Team Providers Care Cloth Finishing Range Operator Name Role Phone Martha Lawrence MD Primary Care Provider [phone] Reason for Visit * Reason Comments Post-Op Encounter Details Date Type Department Care Team (Late st Contact Info) Description 09/24/2020 8:45 AM CDT Office Visit [facility] [address] [place] [phone] Fidel Moss MD [address] [place] [phone] Postsurgical states following surgery of eye and [...] have Coronavirus / COVID-19? No / Unsure 09/19/2020 12:30 PM CDT documented as of this encounter [...] this encounter Patient Instructions * Patient Instructions* Cherrie Arriola MD - 09/24/2020 10:52 AM CDT It was a pleasure seeing you today in the [facility] Ophthalmology clinic, which is now located on the [place] Level at the [facility] ([address] [place] [address]). Use these drops in the operative eye: Moxifloxacin (andrews cap), Nevanac (sol cap) and Tobradex (white cap) FOUR TIMES DAILY Wear the eye shield with a couple pieces of tape while sleeping for the first week. Do not rub eye. Avoid strenuous activity and heavy lifting for the first week Wait 5 minutes between each drop Return to clinic one week Call us immediately with any sudden change [...] the weekend, you will need to call [facility] ([phone]), dial [phone] for the power saw operator, and say you are an eye patient and need to speak with the eye doctor division head. They will contact one of the eye doctors who will call you and address your concerns. Again, our clinic is now located in the [facility]. The address is [address] [place] [address]. Our clinic is located on the [place] Level. If you are driving, you should park on the BLUE SIDE of the parking garage and proceed to the [facility] of the [facility]. documented in this encounter Progress Notes * Cherrie Arriola MD - 09/24/2020 10:38 AM CDT Isa Progress Note Cesario Jewell is an 40 year old Chief Complaint Patient presents with ??? Post-Op Cesario Jewell is a 40 year old female who presents for a PD1 s/p /Ahmed tube revision right eye (shortening the tube), right eye on 09/23/20 2/2 Glaucoma of the right eye, Ahmed tube in visual axis causing visual disturbance. Pt c/o 7-810 irritation and FB sensation. Pt states last night Va was very blurry, but today thereis a fluctuation. Gtt: -Moxifloxacin QID OD -Nevanac QID OD -Tobradex QID OD Maxitrol agus - has not used Today's vision: Base Eye Exam Visual Acuity (Snellen - Linear) Right Left Dist cc 20/30 -3 Dist ph cc 20/30 -2 Correction: Glasses Tonometry (Tonopen, 9:12 AM) Right Left Pressure 12 Tonometry #2 (Applanation, 10:48 AM) Right Left Pressure 16 pros Pachymetry (06/21/2020) Right Left Thickness 641 Pupils Dark Shape React Right 4 Round NR Left Neuro/Psych Oriented x3: Yes Mood/Affect: Normal Slit [...] tip no longer visible (patient not dilated) Impression/Plan: #POD1 s/p Ahmed tube revision (shortening the tube), right eye -Patient happy with resolution of visual disturbance from the tube -VA at baseline and IOP 12 -Tip of tube no longer in visual axis and no longer visible - likely can see when dilated, will need to monitor for vitreous incarceration Plan: continue post operative drops QID OS, RTC 1 week #s/p Ahmed with pars plana tube placement and viscoat tamponade, dexamethasone depot, OD - Doing well with good bleb formation and IOP wnl - Tube in vitreous cavity behind sulcus lens - Patient complained of a weird distortion, tube noticed in visual axis even after pilocarpine trial, also made retina examination challenging, lead to above revision surgery #Congenital glaucoma OD - Patient??previously saw??Dr. Pappas??at [facility]only once, would like to establish glaucoma careher - HVF reliable with mild non-specific changes ?? #s/p 25g PPV OD for??visually significant vitreous opacities/PVD??(04/18/20) - PPV performed due to??significant effect on daily activities and poor performance at work due to PVD - VA??, retina flat - Follows with Dr. Roa ?? 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 #??Pseudophakia, OD - Anterior capsule phimosis -??Monocular precautions - States glasses are polycarbonate ?? Cherrie Arriola MD Ophthalmology Resident 09/24/2020, 10:50 AM ATTENDING NOTE Attestation: I supervised the resident who evaluated this post-op patient. Fidel Moss MD 09/24/2020 11:23 AM Oh documented in this encounter Plan of Treatment Upcoming Encounters Date Type Department Care Team (Late st Contact Info) Description 06/07/2024 1:00 PM LIVE SOURCE OPERATOR Office Visit [facility] - Ophthalmology [address] [place] [phone] Chrystal Roa MD [address] [place] [address] [place] [phone] 06/23/2024 2:00 PM LIVE SOURCE OPERATOR Office Visit [facility] - Op[facility]mology [address] [facility], [place] [phone] Fidel Moss MD [address] [place] [phone] documented as of this encounter Visit Diagnoses Diagnosis Postsurgical states following surgery of eye and adnexa- Primary Other states following surgery of eye and adnexa documented in this encounter Care Teams Cloth Finishing Range Operator Relationship Specialty Start Date End Date Martha Lawrence MD PCP - General 03/21/20 documented as of this encounter
--- OUTSIDE RECORDS SUMMARY | 2024-05-13 22:20 | XMS_ITS | Encounter Summary ---
Author Organization [facility] Address [address] [place] [address] Care Team Providers Care Junior Automation Engineer Name Role Phone Martha Lawrence MD Primary Care Provider [phone] Encounter Details Date Type Department Care Team (Latest Contact Info) Description 02/09/2022 Travel Social History Tobacco Use Types Packs/Day [...] Answer Date Recorded PHQ2 TOTAL SCORE 3 02/09/2022 Sex and Gender Information Value Date Recorded Sex Assigned at Not on file Gender Identity Not on file Sexual Orientation Not on file COVID-19 Exposure Response Date Recorded In the last 10 days, have yo u been in contact with someone who was confirmed or suspected to have Coronavirus/COVID-19? No / Unsure 02/09/2022 2:54 PM CDT documented as of this encounter [...] st Contact Info) Description 06/07/2024 1:00 PM STEAMTABLE ATTENDANT RAILROAD Office Visit [facility] Op[facility]mology [address] [place] [phone] Chrystal Roa MD [address] [place] [address] [place] [phone] 06/23/2024 2:00 PM STEAMTABLE ATTENDANT RAILROAD Office Visit [facility] - Ophthalmology [address] [place] [phone] Fidel Moss MD [address] [place] [phone] documented as of this encounter Visit Diagnoses Not on filedocumented in this encounter Care Teams Junior Automation Engineer Relationship Specialty Start Date End Date Martha Lawrence MD PCP - General 03/21/20 documented as of this encounter
--- OUTSIDE RECORDS SUMMARY | 2024-05-13 22:20 | XMS_ITS | Encounter Summary ---
Author Organization [facility] Address [address] [facility] [place] [address] Care Team Providers Care Fruit Peeler Name Role Phone Martha Lawrence MD Primary Care Provider [phone] Encounter Details Date Type Department Care Team (Late st Contact Info) Description 10/10/2020 Orders Only [facility] Phys Standard [address] [place], [place] [id number] Shade Reddy MD [address] [place], [place] [phone] Social History Tobacco Use Types Packs/Day Years [...] st Contact Info) Description 06/07/2024 1:00 PM FILTER HELPER Office Visit [facility] [address] [place] [phone] Chrystal Roa MD [address] [place] [address] DE[place] [phone] 06/23/2024 2:00 PM FILTER HELPER Office Visit [facility] - Ophthalmology [address] [place] [phone] Fidel Moss MD [address] [place] [phone] documented as of this encounter Visit Diagnoses Not on filedocumented in this encounter Care Teams Fruit Peeler Relationship Specialty Start Date End Date Martha Lawrence MD PCP - General 03/21/20 documented as of this encounter
--- OUTSIDE RECORDS SUMMARY | 2024-05-13 22:20 | XMS_ITS | Encounter Summary ---
Author Organization [facility] Address [address] [facility] [place] [address] Care Team Providers Care Missionary Coordinator Name Role Phone Martha Lawrence MD Primary Care Provider [phone] Encounter Details Date Type Department Care Team (Late st Contact Info) Description 11/04/2020 Orders Only [facility] Phys Standard [address] [place], [place] [id number] Shade Reddy MD [address] [place], [place] [phone] Social History Tobacco Use Types Packs/Day Years [...] st Contact Info) Description 06/07/2024 1:00 PM ELECTRICIAN TELEPHONE Office Visit [facility] [address] [place] [phone] Chrystal Roa MD [address] [place] [address] [place] [phone] 06/23/2024 2:00 PM ELECTRICIAN TELEPHONE Office Visit [facility] - Ophthalmology [address] [place] [phone] Fidel Moss MD [address] [place] [phone] documented as of this encounter Visit Diagnoses Not on filedocumented in this encounter Care Teams Missionary Coordinator Relationship Specialty Start Date End Date Martha Lawrence MD PCP - General 03/21/20 documented as of this encounter
--- OUTSIDE RECORDS SUMMARY | 2024-05-13 22:20 | XMS_ITS | Encounter Summary ---
Author Organization [facility] Address [address] [place] [address] Care Team Providers Care Mold Insert Changer Name Role Phone Martha Lawrence MD Primary Care Provider [phone] Encounter Details Date Type Department Care Team (Latest Contact Info) Description 06/09/2021 Travel Social History Tobacco Use Types Packs/Day [...] have Coronavirus / COVID-19? No / Unsure 06/09/2021 6:20 PM GRAVE DIGGER documented as of this encounter Functional Status [...] st Contact Info) Description 06/07/2024 1:00 PM GRAVE DIGGER Office Visit [facility] [address] [place] [phone] Chrystal Roa MD [address] [place] [address] [place] [phone] 06/23/2024 2:00 PM GRAVE DIGGER Office Visit [facility] - Ophthalmology [address] [place] [phone] Fidel Moss MD [address] [place] [phone] documented as of this encounter Visit Diagnoses Not on filedocumented in this encounter Care Teams Mold Insert Changer Relationship Specialty Start Date End Date Martha Lawrence MD PCP - General 03/21/20 documented as of this encounter
--- OUTSIDE RECORDS SUMMARY | 2024-05-13 22:20 | XMS_ITS | Encounter Summary ---
Author Organization [facility] Health Address [address] [place] [address] Care Team Providers Care Car Supervisor Name Role Phone Martha Lawrence MD Primary Care Provider [phone] Encounter Details Date Type Department Care Team (Late st Contact Info) Description 12/04/2020 Orders Only [facility] Phys Standard [address] [place], [place] [phone] Shade Reddy MD [address] [place], [place] [phone] Social History Tobacco Use Types Packs/Day Years [...] st Contact Info) Description 06/07/2024 1:00 PM HOOP ROLLS OPERATOR Office Visit [facility] [address] [place] [place] [phone] Chrystal Roa MD [address] [place] [address] [place] [phone] 06/23/2024 2:00 PM HOOP ROLLS OPERATOR Office Visit [facility] - Ophthalmology [address] [place] [place] [phone] Fidel Moss MD [address] [place] [phone] documented as of this encounter Visit Diagnoses Not on filedocumented in this encounter Care Teams Car Supervisor Relationship Specialty Start Date End Date Martha Lawrence MD PCP - General 03/21/20 documented as of this encounter
--- OUTSIDE RECORDS SUMMARY | 2024-05-13 22:20 | XMS_ITS | Encounter Summary ---
Author Organization [facility] Health Address [address] [place] [address] Care Team Providers Care Stock Worker Name Role Phone Martha Lawrence MD Primary Care Provider [phone] Encounter Details Date Type Department Care Team (Latest Contact Info) Description 10/16/2020 Travel Social History Tobacco Use Types Packs/Day [...] have Coronavirus / COVID-19? No / Unsure 10/16/2020 9:35 AM CDT documented as of this encounter [...] st Contact Info) Description 06/07/2024 1:00 PM AIRCRAFT POWER PLANT ASSEMBLER Office Visit [facility] [address] [place] [address] [phone] Chrystal Roa MD [address] [place] [address] [place] [phone] 06/23/2024 2:00 PM AIRCRAFT POWER PLANT ASSEMBLER Office Visit [facility] [address] [place] [phone] Fidel Moss MD [address] [place] [address] [phone] documented as of this encounter Visit Diagnoses Not on filedocumented in this encounter Care Teams Stock Worker Relationship Specialty Start Date End Date Martha Lawrence MD PCP - General 03/21/20 documented as of this encounter
--- OUTSIDE RECORDS SUMMARY | 2024-05-13 22:20 | XMS_ITS | Encounter Summary ---
Author Organization [facility] Health Address [address] [place] [address] Care Team Providers Care Beater Room Supervisor Name Role Phone Martha Lawrence MD Primary Care Provider [phone] Encounter Details Date Type Department Care Team (Late st Contact Info) Description 01/02/2021 Orders Only [facility] Phys Standard [address] [place], [place] [phone] Shade Reddy MD [address] [place], [place] [phone] Social History Tobacco Use Types Packs/Day Years [...] have Coronavirus / COVID-19? No / Unsure 12/23/2020 2:38 PM CDT documented as of this encounter [...] st Contact Info) Description 06/07/2024 1:00 PM YEAST PUSHER Office Visit [facility] [address] [place] [phone] Chrystal Roa MD [address] [place] [address] DE[place] [phone] 06/23/2024 2:00 PM YEAST PUSHER Office Visit [facility] - Ophthalmology [address] [place] [phone] Fidel Msos MD [address] [place] [phone] documented as of this encounter Visit Diagnoses Not on filedocumented in this encounter Care Teams Beater Room Supervisor Relationship Specialty Start Date End Date Martha Lawrence MD PCP - General 03/21/20 documented as of this encounter
--- OUTSIDE RECORDS SUMMARY | 2024-05-13 22:20 | XMS_ITS | Encounter Summary ---
Author Organization [facility] Address [address] [facility] [place] [address] Care Team Providers Care Respooler Name Role Phone Martha Lawrence MD Primary Care Provider [phone] Encounter Details Date Type Department Care Team (Late st Contact Info) Description 04/07/2021 Orders Only [facility] Phys Standard [address] [place], [place] [phone] Shade Reddy MD [address] [place], [place] [phone] Social History Tobacco Use Types Packs/Day Years [...] COVID-19? No / Unsure 03/31/2021 12:54 PM PATTERN GRADER CUTTER documented as of this encounter Functional Status [...] Contact Info) Description 06/07/2024 1:00 PM PATTERN GRADER CUTTER Office Visit [facility] [address] [place] [phone] Chrystal Roa MD [address] [place] [address] [place] [phone] 06/23/2024 2:00 PM PATTERN GRADER CUTTER Office Visit [facility] - Ophthalmology [address] [place] [phone] Fidel Moss MD [address] [place] [phone] documented as of this encounter Visit Diagnoses Not on filedocumented in this encounter Care Teams Respooler Relationship Specialty Start Date End Date Martha Lawrence MD PCP - General 03/21/20 documented as of this encounter
--- OUTSIDE RECORDS SUMMARY | 2024-05-13 22:20 | XMS_ITS | Encounter Summary ---
Author Organization [facility] Health Address [address] [place] [address] Care Team Providers Care Landscape Gardener Name Role Phone Martha Lawrence MD Primary Care Provider [phone] Encounter Details Date Type Department Care Team (Latest Contact Info) Description 02/10/2021 Travel Social History Tobacco Use Types Packs/Day [...] have Coronavirus / COVID-19? No / Unsure 02/10/2021 3:34 PM CDT documented as of this encounter [...] st Contact Info) Description 06/07/2024 1:00 PM PROTECTION MANAGER Office Visit [facility] [address] [place] [address] [phone] Chrystal Roa MD [address] [place] [address] [place] [phone] 06/23/2024 2:00 PM PROTECTION MANAGER Office Visit [facility] [address] [place] [phone] Fidel Moss MD [address] [place] [address] [phone] documented as of this encounter Visit Diagnoses Not on filedocumented in this encounter Care Teams Landscape Gardener Relationship Specialty Start Date End Date Martha Lawrence MD PCP - General 03/21/20 documented as of this encounter
--- OUTSIDE RECORDS SUMMARY | 2024-05-13 22:20 | XMS_ITS | Encounter Summary ---
Author Organization [facility] Address [address] [place] [address] Care Team Providers Care Grades 6 Through 8 Teacher Name Role Phone Martha Lawrence MD Primary Care Provider [phone] Encounter Details Date Type Department Care Team (Latest Contact Info) Description 08/14/2022 Travel Social History Tobacco Use Types Packs/Day [...] suspected to have Coronavirus/COVID-19? No / Unsure 08/14/2022 10:21 AM CDT documented as of this encounter [...] st Contact Info) Description 06/07/2024 1:00 PM TOXICOLOGY SUPERVISOR Office Visit [facility] [address] [place] [address] [phone] Chrystal Roa MD [address] [place] [address] [place] [phone] 06/23/2024 2:00 PM TOXICOLOGY SUPERVISOR Office Visit [facility] - Ophthalmology [address] [place] [phone] Fidel Moss MD [address] [place] [address] [phone] documented as of this encounter Visit Diagnoses Not on filedocumented in this encounter Care Teams Grades 6 Through 8 Teacher Relationship Specialty Start Date End Date Martha Lawrence MD PCP - General 03/21/20 documented as of this encounter
--- OUTSIDE RECORDS SUMMARY | 2024-05-13 22:20 | XMS_ITS | Encounter Summary ---
Author Organization [facility] Health Address [address] [place] [address] Care Team Providers Care Cellar Packer Name Role Phone Martha Lawrence MD Primary Care Provider [phone] Encounter Details Date Type Department Care Team (Latest Contact Info) Description 12/10/2020 Travel Social History Tobacco Use Types Packs/Day [...] have Coronavirus / COVID-19? No / Unsure 12/10/2020 3:57 PM CDT documented as of this encounter [...] st Contact Info) Description 06/07/2024 1:00 PM DIRECTOR CHECK Office Visit [facility] [address] [place] [address] [phone] Chrystal Roa MD [address] [place] [address] DEPT [place] [phone] 06/23/2024 2:00 PM DIRECTOR CHECK Office Visit [facility] [address] [place] [phone] Fidel Moss MD [address] [place] [address] [phone] documented as of this encounter Visit Diagnoses Not on filedocumented in this encounter Care Teams Cellar Packer Relationship Specialty Start Date End Date Martha Lawrence MD PCP - General 03/21/20 documented as of this encounter
--- OUTSIDE RECORDS SUMMARY | 2024-05-13 22:20 | XMS_ITS | Encounter Summary ---
Author Organization [facility] Health Address [address] [place] [address] Care Team Providers Care Field Crop Harvest Worker Name Role Phone Martha Lawrence MD Primary Care Provider [phone] Encounter Details Date Type Department Care Team (Latest Contact Info) Description 12/23/2020 Travel Social History Tobacco Use Types Packs/Day [...] st Contact Info) Description 06/07/2024 1:00 PM PERMACULTURE DESIGNER Office Visit [facility] [address] [place] [address] [phone] Chrystal Roa MD [address] [place] [address] [place] [phone] 06/23/2024 2:00 PM PERMACULTURE DESIGNER Office Visit [facility] [address] [place] [phone] Fidel Moss MD [address] [place] [address] [phone] documented as of this encounter Visit Diagnoses Not on filedocumented in this encounter Care Teams Field Crop Harvest Worker Relationship Specialty Start Date End Date Martha Lawrence MD PCP - General 03/21/20 documented as of this encounter
--- OUTSIDE RECORDS SUMMARY | 2024-05-13 22:20 | XMS_ITS | Encounter Summary ---
Author Organization [facility] Address [address] [place] [address] Care Team Providers Care Retort Feeder Ground Bone Name Role Phone Martha Lawrence MD Primary Care Provider [phone] Encounter Details Date Type Department Care Team (Latest Contact Info) Description 05/12/2021 Travel Social History Tobacco Use Types Packs/Day [...] COVID-19? No / Unsure 05/12/2021 3:22 PM RN ACUTE documented as of this encounter Functional Status [...] st Contact Info) Description 06/07/2024 1:00 PM RN ACUTE Office Visit [facility] [address] [place] [phone] Chrystal Roa MD [address] [place] [address] [place] [phone] 06/23/2024 2:00 PM RN ACUTE Office Visit [facility] - Ophthalmology [address] [place] [phone] Fidel Moss MD [address] [place] [address] [phone] documented as of this encounter Visit Diagnoses Not on filedocumented in this encounter Care Teams Retort Feeder Ground Bone Relationship Specialty Start Date End Date Martha Lawrence MD PCP - General 03/21/20 documented as of this encounter
--- OUTSIDE RECORDS SUMMARY | 2024-05-13 22:20 | XMS_ITS | Encounter Summary ---
Author Organization [facility] Health Address [address] [place] [address] Care Team Providers Care Pit Crew Support Worker Name Role Phone Martha Lawrence MD Primary Care Provider [phone] Encounter Details Date Type Department Care Team (Latest Contact Info) Description 10/23/2020 Travel Social History Tobacco Use Types Packs/Day [...] have Coronavirus / COVID-19? No / Unsure 10/23/2020 10:01 AM CDT documented as of this encounter [...] Contact Info) Description 06/07/2024 1:00 PM AUTOMOTIVE PAINT TECHNICIAN Office Visit [facility] [address] [place] [address] [phone] Chrystal Roa MD [address] [place] [address] [place] [phone] 06/23/2024 2:00 PM AUTOMOTIVE PAINT TECHNICIAN Office Visit [facility] [address] [place] [phone] Fidel Moss MD [address] [place] [address] [phone] documented as of this encounter Visit Diagnoses Not on filedocumented in this encounter Care Teams Pit Crew Support Worker Relationship Specialty Start Date End Date Martha Lawrence MD PCP - General 03/21/20 documented as of this encounter
--- OUTSIDE RECORDS SUMMARY | 2024-05-13 22:20 | XMS_ITS | Encounter Summary ---
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 No / Unsure 06/09/2021 6:20 PM DEMAND PLANNING MANAGER documented as of this encounter Functional [...] as of this encounter Progress Notes * PiDennise MD - 06/26/2021 8:04 AM CST Ophthalmology Office Note - Glaucoma Clinic Subjective Cesario Jewell is an 41 year old Chief Complaint Patient presents with ??? Follow-up H/O Congenital glaucoma OD with prosthetic OS Ms. Cesario Jewell is a 41 year old female, last seen by Dr. Roa in retina clinic for S/P PPV OD on 05/23/2021, returns to glaucoma clinic for follow-up and further management. Patient last consulted with Dr. Moss x 11/01/2020. Patient reports OD VA peripheral has narrowed (left side worst) since last visit with Dr. Roa. OD comfortable and prosthetic OS as well. Floaters OD stable. No flashes. Pt states she is using and knows it by name: [Right Eye] ??? Brimonidine-Timolol / Combigan (navy blue top) BID - last used yesterday evening @ 9:30pm [Left Eye / Prosthetic] ??? Washes with water H/O NIDDM Type II using Ozempic injections Last A1C: 4.9 (>1 yr ago, 09/06/2020 under Lab tab) Does [...] Disorder 90 tablet 0 ??? atomoxetine (STRATTERA) 25 MG capsule Take 25 mg by mouth every morning Reasons: Attention Deficit Hyperactivity Disorder ??? brimonidine-timolol (COMBIGAN) 0.2-0.5 % ophthalmic solution [...] MG Dose, (SPRAVATO) 28 MG/DEVICE nasal spray [place] 84 (eighty four) mg into the nose [...] Alcohol use: Never ??? Drug use: Never Review of Systems (positives in bold) Constitutional: [...] (Snellen - Linear) Right Left Dist sc Prosthetic Dist cc 20/40 +2 Dist ph cc NI Correction: Glasses Tonometry (Tonopen, 8:18 AM) Right Left Pressure 15 N/A Tonometry #2 (Applanation Pi , 8:32 AM) Right Left Pressure 14 Tonometry Comments OS: Prosthetic Pachymetry (06/21/2020) Right Left Thickness 641 Pupils Dark Light Shape React APD Right 2.75 2.5 Round Slow None Left Prosthetic Visual Bay Left Right Full OS: Prosthetic Extraocular Movement Right Left Slight Nystagmus Prosthetic -- -- -- -- -- -- -- -- -- -- -- -- -- -- -- -- Neuro/Psych Oriented x3: Yes Mood/Affect: Normal Dilation Machine Tool Technician Instructor deferred DFE to M.DCarlito for undilated Goldmann applanation first. Slit Lamp and Fundus Exam External Exam Right Left External Normal Normal Slit Lamp Exam Right Left Lids/Lashes Normal Normal Conjunctiva/Sclera Bleb formation over ahmed Prosthetic, pink healthy appearing palpebral conj, no discharge Cornea Clear, horizontal stria inferiorly, vertical stria laterally Anterior Chamber Deep and quiet Iris Round and reactive Lens Sulcus lens Vitreous Normal, no tube visible dundil Refraction Wearing Rx Sphere Cylinder [place] Right -2.75 +1.50 140 Left Balance Age: >1 yr Type: SVL Assessment/Plan Micole V Best is a 41 year old female Congenital glaucoma OD - Risk Factors: ??? FHx mom ??? Race AA ??? Steroid use denies ??? Trauma denies ??? Refractive error -2.75 ??? YEMI / COPD / Blood Transfusion - no - Pachy: 641 - Gonio RK (06/26/21): open to SS 360 with 2+ pigment ou - Meds/compliance: Combigan BID OD - Laser/Surgery Hx: ?? S/p CE/IOL as toddler ?? s/p Ahmed??with pars plana tube OD??07/03/20 ?? s/p??Ahmed tube revision??(shortening the tube),??right??eye??for tube in visual axis??09/23/20 - Testing: ??? OCF 03/26/20 RNFL OD 75Y (S thin) ?? OCT 06/26/21 RNFL 76Y (S thin) ??? HVF 06/21/20 24-2 SFer no glaucomatous defects, VFI 95% Disc photos (06/26/21) - mild cupping - Synopsis: 41 year old yo monocular pt with h/o congenital glaucoma. Tmax 54, and mostly in low 20s after Ahmed in 2020. Recently started on combigan BID with IOP today in mid-teens, at goal. OCT RNFL stable since 2020. Pt due for HVF. ?? Pseudophakia OD - 3 Piece in the sulcus Prosthetic Eye??OS?? 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 Dennise Machado MD Ophthalmology PGY-2 06/26/2021 8:36 AM I reviewed and confirmed the techs ROS, [...] following additions or corrections: Impression: See Above Doing well with good IOP control on Combigan BID. Paying ~30$ per month for bottle, would prefer cheaper option. Since target wnl will switch to Latanoprost qhs. FU 3 months IOP check / HVF 24-2 S-Faster OD Kaushik Bowser MD Glaucoma Attending Date of Service: 06/26/2021 ND PLANNING MANAGER documented in this encounter Plan of Treatment Upcoming Encounters Date Type Department Care Team (Late st Contact Info) Description 06/07/2024 1:00 PM DEMAND PLANNING MANAGER Office Visit [facility] [address] [place] [address] [phone] Chrystal Roa MD [address] [place] [address] [place] [phone] 06/23/2024 2:00 PM DEMAND PLANNING MANAGER Office Visit [facility] [address] [place] [address] [phone] Fidel Moss MD [address] [place] [address] [phone] documented as of this encounter Procedures Procedure Name Priority Date/Time Associated Diagnosis Comments OPH COLOR FUNDUS PHOTOGRAPHY [facility] Routine 06/26/2021 8:11 AM DEMAND PLANNING MANAGER Congenital glaucoma of right eye OPH OCT TEST [facility] Routine 06/26/2021 8:08 AM DEMAND PLANNING MANAGER Congenital glaucoma of right eye documented in this encounter Results * Color fundus photography (06/26/2021 8:11 AM DEMAND PLANNING MANAGER) Anatomical Region Laterality Modality Other 06/26/2021 8:11 AM DEMAND PLANNING MANAGER Kaushik Bowser MD OPHTHALMOLOGY SE RVICES ORDERABLES * OCT (06/26/2021 8:08 AM DEMAND PLANNING MANAGER) Anatomical Region Laterality Modality Other 06/26/2021 8:08 AM DEMAND PLANNING MANAGER Kaushik Bowser MD OPHTHALMOLOGY SE RVICES ORDERABLES documented in this encounter Visit Diagnoses Diagnosis Congenital glaucoma of right eye- Primary documented in this encounter Care Teams Tipping Machine Operator Relationship Specialty Start Date End Date Martha Lawrence MD PCP - General 03/21/20 documented as of this encounter
--- OUTSIDE RECORDS SUMMARY | 2024-05-13 22:20 | XMS_ITS | Encounter Summary ---
Author Organization [facility] Address [address] [place] [address] Care Team Providers Care Tanning Salon Attendant Name Role Phone Martha Lawrence MD Primary Care Provider [phone] Encounter Details Date Type Department Care Team (Late st Contact Info) Description 02/14/2021 Orders Only [facility] Phys Standard [address] [place], [place] [phone] Shade Reddy MD [address] [place], [place] [phone] Social History Tobacco Use Types Packs/Day Years [...] st Contact Info) Description 06/07/2024 1:00 PM LICENSED LAND SURVEYOR Office Visit [facility] [address] [place] [phone] Chrystal Roa MD [address] [place] [address] [place] [phone] 06/23/2024 2:00 PM LICENSED LAND SURVEYOR Office Visit [facility] - Ophthalmology [address] [place] [phone] Fidel Moss MD [address] [place] [address] [phone] documented as of this encounter Visit Diagnoses Not on filedocumented in this encounter Care Teams Tanning Salon Attendant Relationship Specialty Start Date End Date Martha Lawrence MD PCP - General 03/21/20 documented as of this encounter
--- OUTSIDE RECORDS SUMMARY | 2024-05-13 22:20 | XMS_ITS | Encounter Summary ---
Author Organization [facility] Address [address] [place] [address] Care Team Providers Care Ladle Filler Name Role Phone Martha Lawrence MD Primary Care Provider [phone] Encounter Details Date Type Department Care Team (Latest Contact Info) Description 08/04/2021 Travel Social History Tobacco Use Types Packs/Day [...] st Contact Info) Description 06/07/2024 1:00 PM MIXER WHIPPED TOPPING Office Visit [facility] [address] [place] [phone] Chrystal Roa MD [address] [place] [address] [place] [phone] 06/23/2024 2:00 PM MIXER WHIPPED TOPPING Office Visit [facility] - Ophthalmology [address] [place] [phone] Fidel Moss MD [address] [place] [address] [phone] documented as of this encounter Visit Diagnoses Not on filedocumented in this encounter Care Teams Ladle Filler Relationship Specialty Start Date End Date Martha Lawrence MD PCP - General 03/21/20 documented as of this encounter
--- OUTSIDE RECORDS SUMMARY | 2024-05-13 22:20 | XMS_ITS | Encounter Summary ---
Author Organization [facility] Address [address] [place] [address] Care Team Providers Care Founder And President Name Role Phone Martha Lawrence MD Primary Care Provider [phone] Encounter Details Date Type Department Care Team (Latest Contact Info) Description 08/18/2021 Travel Social History Tobacco Use Types Packs/Day [...] PHQ-2 Answer Date Recorded PHQ2 TOTAL SCORE 1 08/18/2021 Sex and Gender Information Value Date Recorded [...] st Contact Info) Description 06/07/2024 1:00 PM CYCLE LIAISON Office Visit [facility] Op[facility] [address] [place] [address] [phone] Chrystal Roa MD [address] [place] [address] [place] [phone] 06/23/2024 2:00 PM CYCLE LIAISON Office Visit [facility] - Ophthalmology [address] [place] [address] [phone] Fidel Moss MD [address] [place] [address] [phone] documented as of this encounter Visit Diagnoses Not on filedocumented in this encounter Care Teams Founder And President Relationship Specialty Start Date End Date Martha Lawrence MD PCP - General 03/21/20 documented as of this encounter
--- OUTSIDE RECORDS SUMMARY | 2024-05-13 22:20 | XMS_ITS | Encounter Summary ---
Author Organization [facility] Address [address] [place] [address] Care Team Providers Care [employer] Supervisor Name Role Phone Martha Lawrence MD Primary Care Provider Encounter Details Date Type Department Care Team (Latest Contact Info) Description 07/02/2021 Travel Social History Tobacco Use Types Packs/Day [...] COVID-19? No / Unsure 07/02/2021 11:16 AM STUCCO APPLICATOR documented as of this encounter Functional Status [...] st Contact Info) Description 06/07/2024 1:00 PM STUCCO APPLICATOR Office Visit [facility] - Ophthalmology [address] [place] [phone] Chrystal Roa MD [address] [place] [address] [place] [phone] 06/23/2024 2:00 PM STUCCO APPLICATOR Office Visit [facility] - Ophthalmology [address] [place] [phone] Fidel Moss MD [address] [place] [phone] documented as of this encounter Visit Diagnoses Not on filedocumented in this encounter Care Teams [employer] Supervisor Relationship Specialty Start Date End Date Martha Lawrence MD PCP - General 03/21/20 documented as of this encounter
--- OUTSIDE RECORDS SUMMARY | 2024-05-13 22:21 | XMS_ITS | Encounter Summary ---
Author Organization [facility] Address [address] [place] [address] Care Team Providers Care Branch Operations Coordinator Name Role Phone Martha Lawrence MD Primary Care Provider [phone] Reason for Visit * Reason Comments Follow-up Glaucoma associated with ocular disorder, indeterminate stage, right Encounter Details Date Type Department Care Team (Latest Contact Info) Description 06/21/2020 8:00 AM TREE DRILLER Office Visit [facility] [address] [place] [phone] Fidel Msos MD [address] [place] [phone] Secondary glaucoma, mild stage, right (Primary Dx); Anophthalmos of left eye; Glaucoma associated with ocular disorder, indeterminate stage, right Social History Tobacco Use Types [...] on file documented as of this encounter Progress Notes * Shade Price MD - 06/21/2020 9:02 AM CST Progress Note [facility] Ophthalmology HPI: Cesario Jewell is a 40 year old female is here following Glaucoma associated with ocular disorder, indeterminate stage, right. Patient states she feels Still sees flashes or light nasally, this morning she saw rainbow ring in right eye. She gets eye pain, dull ache to piercing ache (5-9)every otherday and last about an hour. She is not working because sitting at the computer gives her a headache. For 3 days she has right eye twitch. Gtt: Betaxolol BID OD Brimonidine TID OD Dorzolamide TID OD Latanoprost QD OD Diamox TID The following was also reviewed and updated: Current Outpatient Medications Medication Sig Dispense Refill ??? acetaZOLAMIDE (DIAMOX) 250 MG tablet TAKE 1 TABLET BY MOUTH 4 TIMES DAILY FOR 20 DAYS 80 tablet0 ??? albuterol HFA (PROVENTIL;VENTOLIN;PROAIR) 108 (90 Base) MCG/ACT inhaler INHALE 2 PUFFS BY MOUTHEVERY 4 6 HOURS NEEDED FOR SHORT OF BREATH ??? ALPRAZolam (XANAX) 0.5 MG tablet alprazolam 0.5 mg tablet ??? betaxolol 0.5 % ophthalmic solution Instill 1 (one) drop into right eye 2 times daily 10 mL 1 ??? brimonidine 0.1 % (ALPHAGAN P) 0.1 % ophthalmic solution Instill 1 drop into right eye 3 times daily ??? buPROPion XL 24hr (WELLBUTRIN-XL) 150 MG tablet TAKE 1 TABLET BY MOUTH EVERY DAY IN THE MORNING ??? Cholecalciferol 125 MCG (5000 UT) Vitamin D3 125 mcg (5,000 unit) tablet TAKE 1 TABLET BY MOUTH EVERY DAY IN THE MORNING ??? cyclopentolate 2% (CYCLOGYL) 2 % ophthalmic solution Instill 1 drop into right eye 2 times daily ??? dorzolamide (TRUSOPT) 2 % ophthalmic solution Instill 1 drop into right eye 3 times daily ??? dulaglutide (TRULICITY) 1.5 MG/0.5ML injection Trulicity 1.5 mg/0.5 mL subcutaneous pen injector INJECT 1.5 MG EVERY WEEK BY SUBCUTANEOUS ROUTE IN THE EVENING ??? escitalopram (LEXAPRO) 20 MG tablet Take 20 mg by mouth once daily ??? FLOVENT HFA 44 MCG/ACT inhaler ??? hydrOXYzine hcl (ATARAX) 25 MG tablet hydroxyzine HCl 25 mg tablet ??? lamoTRIgine (LAMICTAL) 100 MG tablet Take 100 mg by mouth once daily ??? lamoTRIgine (LAMICTAL) 25 MG tablet TAKE 2 TABLETS BY MOUTH EVERY DAY AT BEDTIME ??? latanoprost (XALATAN) 0.005 % ophthalmic solution Instill 1 drop into right eye at bedtime ??? LORazepam (ATIVAN) 0.5 MG tablet ??? metFORMIN ER 24hr (GLUCOPHAGE XR) 500 MG tablet TAKE 2 TABLETS BY MOUTH EVERY DAY BEFORE MEALS. ??? montelukast (SINGULAIR) 10 MG tablet Take 10 mg by mouth once daily ??? omeprazole (PRILOSEC) 20 MG capsule TAKE 1 CAPSULE BY MOUTH EVERY DAY 30 MINUTES BEFORE MORNINGMEAL ??? prednisoLONE acetate (PRED FORTE) 1 % ophthalmic suspension Instill 1 drop into right eye 3 times daily ??? spironolactone (ALDACTONE) 100 MG tablet TAKE 1 TABLET BY MOUTH EVERY DAY IN THE MORNING ??? tobramycin-dexamethasone (TOBRADEX) 0.3-0.1 % ophthalmic ointment Instill into right eye at bedtime ??? traZODone (DESYREL) 150 MG tablet TAKE 1 TABLET BY MOUTH EVERYDAY AT BEDTIME No current facility-administered medications for this visit. Allergies Allergen Reactions ??? Penicillins Urticaria, Rash and Skin Reactions ??? Sulfacetamide Urticaria, Rash, Eye Discomfort and Eye Itching ??? Oxycodone-Acetaminophen Diarrhea, Nausea and/or Vomiting and Vomiting Past Medical History: Diagnosis Date ??? Anxiety ??? Anxiety state 09/23/2013 ANXIETY STATE NOS ??? Asthma ??? Benign hypertension 09/23/2013 BENIGN HYPERTENSION ??? Congenital cataract of both eyes ??? Depression 09/23/2013 DEPRESSIVE DISORDER NEC ??? Disease of larynx 03/26/2020 ??? Disease of tonsils and adenoids 03/26/2020 Overview: Tonsils w/ ??? ETD (Eustachian tube dysfunction), left 05/26/2019 Last Assessment & Plan: Avoid ear cleaning techniques Avoid water to ears Follow up in 6 months, earlier with any ear drainage ??? Gastroesophageal reflux disease 06/26/2014 GERD (gastroesophageal reflux disease) ??? Glaucoma being treated for pre gluacoma ??? History of eye prosthesis 02/17/2020 Left eye ??? Iron deficiency anemia 02/18/2012 Iron deficiency anemia ??? Mastodynia 04/29/2018 ??? 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 Obstructive sleep apnea syndrome 05/14/2014 Overview: Nasal (CPAP) qhs all night Well controlled YEMI ??? Vitamin D deficiency 05/14/2014 Vitamin D deficiency Past Surgical History: Procedure Laterality Date ??? Cataract Removal Right ??? 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 LASER (YAG) CAPSULOTOMY Right ??? Myomectomy ??? MYRINGOTOMY WITH TUBE INSERTION ??? Tonsillectomy and Adenoidectomy ??? Vitrectomy Right 04/18/2020 Right; pars plana vitrectomy of the right eye No family history on file. Social History Tobacco Use ??? Smoking status: Never Smoker ??? Smokeless tobacco: Never Used Substance Use Topics ??? Alcohol use: Never Frequency: Never ??? Drug use: Never Base Eye Exam Visual Acuity (Snellen - Linear) Right Left Dist sc 20/50 prosthetic Dist ph sc 20/40 -2+2 Couldn't find glasses today Tonometry (Tonopen, 8:18 AM) Right Left Pressure 21 Tonometry #2 (Applanation, 8:47 AM) Right Left Pressure 20 Visual Bay Left Right Full Extraocular Movement Right Left Full Full Neuro/Psych Oriented x3: Yes Mood/Affect: Normal Slit Lamp and Fundus Exam External Exam Right Left External Normal Slit Lamp Exam Right Left Lids/Lashes Normal pros Conjunctiva/Sclera White and quiet Cornea Clear Anterior Chamber Deep and quiet Iris Round and reactive Lens PCIOL, sulcus lens Vitreous clear, vitrectomized Fundus Exam Right Left Disc Normal Macula flat Vessels Normal Periphery Attached 360 HVF: Reliable, mild non-specific changes Extended Ophthalmoscopy: OD: optic disc flat, sharp margin, retina attached, no retinal tear, detachment, no hemorrhage, clear vitreous media Assessment/Plan Micole Danette Jewell is a 40 year old female 1. Congenital glaucoma OD - Patient??previously saw??Dr. Pappas??at [facility]only once, would like to establish glaucoma carehere - IOP 20 today with applanation - HVF today reliable with mild non-specific changes - Currently on Diamox 250mg QID, Alphagan TID, Dorzolamide TID, Latanoprost qhs OD 2. s/p 25g PPV OD for??visually significant vitreous opacities/PVD??(04/18/20) - PPV performed due to??significant effect on daily activities and poor performance at work due to PVD - [place]??20/30, retina flat - Follows with Dr. Roa ?? 3. Prosthetic Eye OS?? 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 4. Pseudophakia, OD - Anterior capsule phimosis - Monocular precautions - States glasses are polycarbonate PLAN: - Schedule Ahmed OD - Continue Diamox 250mg QID, Alphagan TID, Dorzolamide TID, Latanoprost qhs OD - Monocular precautions All questions were answered to the best of my ability. Patient verbalized understanding and is in agreement with the plan. Please refer to the attestation below by Dr. Moss for the final assessment and plan. Shade Price M.D ([facility]). Ophthalmology, PGY-2 ATTENDING NOTE....... Patient seen and examined with resident. I revise history, exam, assessment and plan. In addition I note: HPI: Glaucoma consult Study findings: I have personally reviewed and interpreted the following tests, my findings include: ?? Central corneal thickness 640 ?? suggest some overestimation of intraocular pressure right eye ?? gonioscopy right eye in general shows open angle to scleral spur 360?? with 1+ trabecular meshwork pigmentation ?? size 3 Zuniga visual field grossly full with no focal defects to suggest glaucoma damage ?? glaucoma OCT performed in February shows perhaps mild generalized decreased signal consistent with mild glaucoma damage diffusely on the right Exam: Quiet anterior segment right eye with posterior chamber lens and open posterior capsule on the right. Clean prosthesis on the left. Fundus exam on the right shows relatively small compact opticnerve with overall cup-to-disc 0.5 and shallow cup and good color Impression: ?? The patient's current Problem List and Surgical History are inserted below and incorporated by reference. ?? As noted in problem list below, the patient would benefit from glaucoma surgery at this point toreduce need for multiple medications to normalize intraocular pressure and reduce need for systemicmedication to control glaucoma Plan: ?? After discussion we have agreed to schedule Ahmed implant right eye. Because the patient has hadrecent vitrectomy, we should be able to place the tube in the vitreous cavity to reduce risk of damage to the cornea. We did discuss the option of simply having the patient continue medication but she strongly prefers tube shunt alternative as her mother apparently did well with the same approach recently. She is aware that we may need to resume multiple medications and perhaps add cyclophotocoagulation to achieve normal target pressure goal. We will plan general anesthesia in this monocular patient and also dexamethasone rather than Kenalog to reduce risk of steroid effect on functioning angle that may contribute to pressure lowering in addition to functioning Ahmed implant Please see resident's note for further details. Fidel Moss MD (by voice recognition software) 06/21/2020 10:22 AM Patient Active Problem List Diagnosis Date Noted ??? Secondary glaucoma, mild stage, right 06/21/2020 [...] Nasal saline spray (Simply saline, Little Remedies, [place], [place]) 2 second sprays or 2 squeezes into each nostril while looking down over the sink, do not need to sniff in. Follow up in 6 months, earlier with any ear drainage 07/06/2019 T-tubes placed in Office ??? Acute recurrent maxillary sinusitis 05/26/2019 Priority: Not Prioritized Last Assessment & Plan: Take Cefdinir with a meal daily Nasal saline spray (Simply saline, Little Remedies, [place], [place]) 2 second sprays or 2 squeezes into [...] Nasal saline spray (Simply saline, Little Remedies, [place], [place]) 2 second sprays or 2 squeezes into [...] with body mass index of 40.0-49.9 03/16/2019 Priority: Not Prioritized ??? Polycystic ovaries [...] Prioritized Overview: Post hemo ANEMIA NOS ??? Anxiety state 09/23/2013 Priority: Not Prioritized ANXIETY STATE NOS ??? Benign hypertension 09/23/2013 Priority: Not Prioritized BENIGN HYPERTENSION ??? Depression 09/23/2013 Priority: Not Prioritized DEPRESSIVE DISORDER NEC ??? Impaired fasting glucose 09/23/2013 Priority: Not Prioritized IMPAIRED FASTING GLUCOSE ??? 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/23/2013 Priority: Not Prioritized MIXED HYPERLIPIDEMIA ??? Iron deficiency anemia 02/18/2012 Priority: Not Prioritized Iron deficiency anemia Past Surgical History: Procedure Laterality Date ??? Cataract Removal Right ??? 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 LASER (YAG) CAPSULOTOMY Right ??? Myomectomy ??? MYRINGOTOMY WITH TUBE INSERTION ??? Tonsillectomy and Adenoidectomy ??? Vitrectomy Right 04/18/2020 Right; pars plana vitrectomy of the right eye I attest that The Eye Exam sections were reviewed elsewhere in this encounter. They are duplicated below in this progress note to comply with billing requirements: Fidel Moss MD; 06/21/2020; 10:22 AM Base Eye Exam Visual Acuity (Snellen - Linear) Right Left Dist sc 20/50 prosthetic Dist ph sc 20/40 -2+2 Couldn't find glasses today Tonometry (Tonopen, 8:18 AM) Right Left Pressure 21 Tonometry #2 (Applanation, 8:47 AM) Right Left Pressure 20 Pachymetry (06/21/2020) Right Left Thickness 641 Visual Bay Left Right Full Extraocular Movement Right Left Full Full Neuro/Psych Oriented x3: Yes Mood/Affect: Normal Dilation Both eyes: 1.0% Mydriacyl, 2.5% Slade Synephrine @ 9:29 AM First round @ 929 Second round @ 933 Third round @ 938 Slit Lamp and Fundus Exam External Exam Right Left External Normal Slit Lamp Exam Right Left Lids/Lashes Normal pros Conjunctiva/Sclera White and quiet Cornea Clear Anterior Chamber Deep and quiet Iris Round and reactive Lens PCIOL, sulcus lens Vitreous clear, vitrectomized Fundus Exam Right Left Disc Normal Macula flat Vessels Normal Periphery Attached 360 Final Rx was not recorded. Not recorded DRILLER documented in this encounter Plan of Treatment Upcoming Encounters Date Type Department Care Team (Late st Contact Info) Description 06/07/2024 1:00 PM TREE DRILLER Office Visit [facility]mology [address] [place] [phone] Chrystal Roa MD [address] [place] [address] [place] [phone] 06/23/2024 2:00 PM TREE DRILLER Office Visit [facility] [address] [place] [phone] Fidel Moss MD [address] [place] [phone] documented as of this encounter Procedures Procedure Name Priority Date/Time Associated Diagnosis Comments OPH VISUAL FIELD TEST [facility] Routine 06/21/2020 8:01 AM TREE DRILLER Glaucoma associated with ocular disorder, indeterminate stage, right documented in this encounter Results * OPH VISUAL FIELD TEST [facility]U (06/21/2020 8:01 AM TREE DRILLER) Anatomical Region Laterality Modality Other 06/21/2020 8:01 AM TREE DRILLER Fidel Moss MD OPHTHALMOLOGY SERVIC ES ORDERABLES documented in this encounter Visit Diagnoses Diagnosis Secondary glaucoma, mild stage, right- Primary Anophthalmos of left eye Clinical anophthalmos, unspecified Glaucoma associated with ocular disorder, indeterminate stage, right documented in this encounter Care Teams Branch Operations Coordinator Relationship Specialty Start Date End Date Martha Lawrence MD PCP - General 03/21/20 documented as of this encounter
--- OUTSIDE RECORDS SUMMARY | 2024-05-13 22:21 | XMS_ITS | Encounter Summary ---
Author Organization [facility] Address [address] [facility] [place] [address] Care Team Providers Care Station Operator Name Role Phone Martha Lawrence MD Primary Care Provider [phone] Reason for Visit * Reason Comments Follow-up Encounter Details Date Type Department Care Team (Latest Contact Info) Description 05/23/2020 8:45 AM RESIDENT CARE TECHNICIAN Office Visit [facility] [address] [place] [phone] Marc Baumann MD [address] [place] [address] [place] [phone] Glaucoma associated with ocular disorder, indeterminate stage, right (Primary Dx); Symptomatic posterior vitreous detachment of right eye; Prosthetic eye globe Social History Tobacco Use Types Packs/Day Years [...] as of this encounter Progress Notes * Camden Chavarria IV, DO - 05/23/2020 10:09 AM CST Ophthalmology Progress Note Subjective: Usually wakes up with a splitting headache every morning. Still having redness in right eye on and off. Will have eye pain as well. Not currently on any steroid drops. Not taking cyclogyl. Cannot drink soda because it's flat, and having symptoms of tingling in her hands and feet. Chief Complaint Patient presents with ??? Follow-up Cesario Jewell is a 40 year old female who states that she is here for a follow- up pertaining to Glaucoma associated with ocular disorder, indeterminate stage, right * OS is prosthetic * Pt states the following: - Has been having a sharp pain and a throbbing pain in OD that comes and goes. - OD has been red off and on - Has been having headaches for about a week. - Sees rainbows/halos in OS - Denies new flashes or new floaters Gtt: Latanoprost 1x at night, Alphagan 3x a day, Dorzolamide 3x a day, and Diamox 4x a day all in OD Current Outpatient Medications Medication Sig Dispense Refill ??? acetaZOLAMIDE (DIAMOX) 250 MG tablet Take 1 tablet by mouth 4 times daily for 20 days 80 tablet0 ??? albuterol HFA (PROVENTIL;VENTOLIN;PROAIR) 108 (90 Base) MCG/ACT inhaler INHALE 2 PUFFS BY MOUTHEVERY 4 6 HOURS NEEDED FOR SHORT OF BREATH ??? brimonidine 0.1 % (ALPHAGAN P) 0.1 [...] into right eye 3 times daily ??? escitalopram (LEXAPRO) 20 MG tablet Take 20 mg by mouth once daily ??? FLOVENT HFA 44 MCG/ACT inhaler ??? lamoTRIgine (LAMICTAL) 100 MG tablet Take [...] Left Dist sc Prosthetic Dist cc 20/40 +1 Dist ph cc 20/40 +2 Correction: Glasses Tonometry (Tonopen, 9:45 AM) Right Left Pressure 21 Tonometry #2 (Applanation, 10:31 AM) Right Left Pressure 28 Tonometry #3 (Applanation, 10:42 AM) Right Left Pressure 20 Pupils Dark Light Shape React APD Right 3 2.5 Round Brisk None Left Visual Bay (Counting fingers) Left Right Full Restrictions Total superior temporal, inferior temporal, superior nasal, inferior nasal deficiencies Extraocular Movement Pt stated that she feels a strain in OD while looking up and to the left. Neuro/Psych Oriented x3: Yes Mood/Affect: Normal Dilation Right eye: 2.5% Phenylephrine, 1.0% Tropicamide @ 9:47 AM Slit Lamp and Fundus Exam External Exam Right Left External Normal Slit Lamp Exam Right Left Lids/Lashes Normal pros Conjunctiva/Sclera sutured, no leakage Cornea Clear Anterior Chamber Deep and quiet Iris Round and reactive Lens PCIOL, sulcus lens Vitreous clear Fundus Exam Right Left Disc Normal Macula flat Vessels Normal Periphery 360 attached Refraction Wearing Rx Sphere Cylinder Rome Right -3.50 +0.75 098 Left bal Type: SVL Studies 05/26/2020: None. Assessment/Plan: Ms. Jewell is a 40 yo F here for follow up congenital glaucoma OD. #Ocular hypertension OD?? - IOP??21 today, improved from 30 last visit on current regimen above - On Diamox 250mg QID - Sulfa allergy is because she had periorbital rash after iopidine #Congenital glaucoma OD -Patient previously saw Dr. Pappas??at [facility] - only once, would like to establish glaucoma care here. ?? #POW#3??s/p 25g PPV OD for??visually significant vitreous opacities/PVD??(04/18/20) - PPV performed due to??significant effect on daily activities and poor performance at work due to PVD -[place]??20/30, retina flat 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 #Pseudophakia, OD -Anterior capsule phimosis -Monocular precautions -States glasses are polycarbonate ?? Plan: - Continue??Alphagan TID, Dorzolamide TID, and latanoprost qHS, PO Diamox 250mg QID - Patient was instructed to call and come back in case of severe eye pain, swelling, loss of vision - Follow up with Dr. Roa as scheduled on 05/27/20 - Needs to see Dr. Moss for surgical intervention Patient discussed with attending physician Dr. Baumann. Camden Chavarria IV, D.O., M.Sc. Ophthalmology PGY-1 DENT CARE TECHNICIAN Associated attestation - Marc Baumann MD - 05/26/2020 9:31 PM RESIDENT CARE TECHNICIAN I have examined the patient in person with the resident and/or student, verified vizcarra portions of the exam, reviewed the note and amended it as needed, and discussed the assessment and plan with the resident and/or student, who incorporated the recommendations into their note. I also discussed the exam findings and my recommendations with the patient and any family members in attendance. Their questions were answered fully. Arrangements for follow-up appointments and testing were scheduled priorto the patient's departure. In addition, I note the following: Congenital glaucoma OD in Monocular patient, who presented last week with uncontrolled OHTN despitethree agents: Alphagan TID, Dorzolamide TID, and latanoprost QHS. She was started on Diamox 250 mg PO QID, which has brou CPM: Alphagan TID, Dorzolamide TID, Latanoprost QHS, Diamox 250 mg PO QID. Follow up with Dr. Moss at next available. Post-Op s/p 25g PPV OD for visually significant vitreous opacities/PVD (Dr. Roa, 04/18/2020): Follow up as scheduled. Marc Baumann MD, PhD documented in this encounter Plan of Treatment Upcoming Encounters Date Type Department Care Team (Late st Contact Info) Description 06/07/2024 1:00 PM RESIDENT CARE TECHNICIAN Office Visit [facility] - Ophthalmology [address] [place] [phone] Chrystal Roa MD [address] [place] [address] [place] [phone] 06/23/2024 2:00 PM RESIDENT CARE TECHNICIAN Office Visit [facility] [address] [place] [phone] Fidel Moss MD [address] [place] [phone] documented as of this encounter Visit Diagnoses Diagnosis Glaucoma associated with ocular disorder, indeterminate stage, right- Primary Symptomatic posterior vitreous detachment of right eye Prosthetic eye globe Eye globe replaced by other means documented in this encounter Care Teams Station Operator Relationship Specialty Start Date End Date Martha Lawrence MD PCP - General 03/21/20 documented as of this encounter
--- OUTSIDE RECORDS SUMMARY | 2024-05-13 22:21 | XMS_ITS | Encounter Summary ---
Author Organization [facility] Address [address] [place] [address] Care Team Providers Care Melt Room Operator Name Role Phone Martha Lawrence MD Primary Care Provider [phone] Reason for Visit * Reason Comments Post-Op s/p Ahmed OD with Pa rs plana placement Encounter Details Date Type Department Care Team (Late st Contact Info) Description 07/04/2020 8:30 AM CLEANER AND TRIMMER Office Visit [facility] [address] [place] [phone] Fidel Moss MD [address] [place] [address] Postsurgical states following surgery of eye and [...] or have serious hearing difficult y? No 07/03/2020 Is person blind or have serious difficulty seein g? Yes 07/03/2020 Does person have serious dif ficulty walking/climbing stairs? No 07/03/2020 Does person have difficulty dressing/bathing? No 07/03/2020 Does person have difficulty doing errands alone? No 07/03/2020 Cognitive Status Response Date of Assessm ent Does person have difficulty concentrating/remembering/making decisions? No 07/03/2020 documented as of this encounter Patient Instructions * Patient Instructions* Franco Martinez MD - 07/04/2020 8:48 AM CLEANER AND TRIMMER Follow up in one week Eye drops to be applied to the surgical eye: ? Tobradex (WHITE top) Milky drop -- shake well ? Nevanac (APONTE top) ? Vigamox (GARCIA top) ? First Week ?? 4x/day 4x/day 4x/day ? General Postoperative Care: 1.) You must protect your eye carefully. A shield has to be taped over the eye at nighttime each night. 2.) Do not lift anything heavier than about 10 pounds (approximately a gallon of milk). It is very important that you not rub your eye. 3.) Post-operative examinations: It is imperative that you come to your post- operative appointmentsso that your eye can be assessed. This will ensure that there are no problems that could lead to any visual or health problems. You will be seen on the first day after surgery, again one week later, and again one month after. ? You should call FOR AN EMERGENCY. ?? [facility] [facility] [address] ?? NER AND TRIMMER documented in this encounter Progress Notes * Franco Martinez MD - 07/04/2020 8:55 AM CST Ophthalmology Progress Note Subjective: Cesario Jewell is an 40 year old Chief Complaint Patient presents with ??? Post-Op s/p Mario OD with Pars plana placement POD1. Slept poorly 2/2 pain. States that her vision is about '60%' since surgery. Used gtts twice last night Current Outpatient Medications Medication Sig Dispense Refill [...] (Snellen - Linear) Right Left Dist cc 20/60 -2 Dist ph cc 20/60 Correction: Glasses Tonometry (Applanation, 8:34 AM) Right Left Pressure 11 Tonometry #2 (Tonopen, 8:36 AM) Right Left Pressure 18 Neuro/Psych Oriented x3: Yes Mood/Affect: Normal Slit Lamp and Fundus Exam External Exam Right Left External Normal Slit Lamp Exam Right Left Lids/Lashes Normal pros Conjunctiva/Sclera White and quiet Cornea Clear Anterior Chamber Deep and quiet Iris Round and reactive Lens PCIOL, sulcus lens Vitreous clear, vitrectomized. Tube superotemporally Fundus Exam Right Left Disc Normal Macula flat Vessels Normal Periphery Attached 360 Assessment #POD1 s/p Ahmed Valve - Doing well - VA stable with good bleb formation - IOP WNL today off gtts #Congenital glaucoma OD - Patient??previously saw??Dr. Pappas??at [facility]??only once, would like to establish glaucoma careher - HVF today reliable with mild non-specific changes ?? #s/p 25g PPV OD for??visually significant vitreous opacities/PVD??(04/18/20) - PPV performed due to??significant effect on daily activities and poor performance at work due to PVD - VA??20/30, retina flat - Follows with Dr. Roa ?? 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 # Pseudophakia, OD - Anterior capsule phimosis - Monocular precautions - States glasses are polycarbonate Plan Post op gtts QID F/U POW1 Pt discussed with Dr. Isa Martinez MD Ophthalmology PGY-4 ATTENDING NOTE Attestation: I supervised the resident who evaluated this post-op patient. Fidel Moss MD 07/04/2020 10:03 PM NER AND TRIMMER documented in this encounter Plan of Treatment Upcoming Encounters Date Type Department Care Team (Late st Contact Info) Description 06/07/2024 1:00 PM CLEANER AND TRIMMER Office Visit [facility] - Ophthalmology [address] [place] [phone] Chrystal Roa MD [address] [place] [address] [place] [phone] 06/23/2024 2:00 PM CLEANER AND TRIMMER Office Visit [facility] - Ophthalmology [address] [place] [phone] Fidel Moss MD [address] [place] [phone] documented as of this encounter Visit Diagnoses Diagnosis Postsurgical states following surgery of eye and adnexa- Primary Other states following surgery of eye and adnexa documented in this encounter Care Teams Melt Room Operator Relationship Specialty Start Date End Date Martha Lawrence MD PCP - General 03/21/20 documented as of this encounter
--- OUTSIDE RECORDS SUMMARY | 2024-05-13 22:21 | XMS_ITS | Encounter Summary ---
Author Organization [facility] Address [address] [place] [address] Care Team Providers Care Labor And Employment Paralegal Name Role Phone ЕкатеринаZoran silverman Sushant ELKINS Primary Care Provider [phone] Reason for Visit * Reason Comments Cold Symptoms drainage Encounter Details Date Type Department Care Team (Late st Contact Info) Description 06/25/2017 4:20 PM PLANNING OFFICIAL Office Visit [facility] [address] [phone] Provider, Reji Exp [facility] Acute allergic rhinitis, unspecified seasonality, unspecified trigger (Primary Dx) Social History Tobacco Use Types Packs/Day Years Used Date Smoking Tobacco: Never Sex and Gender Information Value Date Recorded Sex Assigned at Not on file Gender Identity Not on file Sexual Orientation Not on file documented as of this encounter Last Filed Vital Signs Vital Sign Reading Time Taken Comments Blood Pressure 136/92 06/25/2017 4:27 PM PLANNING OFFICIAL Pulse 101 06/25/2017 4:27 PM PLANNING OFFICIAL Temperature 37.2 ??C (99 ??F) 06/25/2017 4:27 PM PLANNING OFFICIAL Respiratory Rate - - Oxygen Saturation - - Inhaled Oxygen Concentration - - Weight 119.3 kg (263 lb) 06/25/2017 4:27 PM PLANNING OFFICIAL Height 167.6 cm (5' 6 ) 06/25/2017 4:27 PM PLANNING OFFICIAL Body Mass Index 42.45 06/25/2017 4:27 PM PLANNING OFFICIAL documented in this encounter Patient Instructions * Patient Instructions* Rea Craven APRN-CNP - 06/25/2017 4:39 PM PLANNING OFFICIAL Cold Symptoms BUTADIENE COMPRESSOR OPERATOR: Cold symptoms include sneezing, dry throat, a stuffy nose, headache, watery eyes, and a cough. Yourcough may be dry, or you may cough up mucus. You may also have muscle aches, joint pain, and tiredness. Rarely, you may have a fever. Cold symptoms occur from inflammation in your upper respiratory system caused by a virus. Most colds go away without treatment. Seek care immediately if: ?? You have increased tiredness and weakness. ?? You are unable to eat. ?? Your heart is beating much faster than usual for you. ?? You see white spots in the back of your throat and your neck is swollen and sore to the touch. ?? You see pinpoint or larger reddish-purple dots on your skin. Contact your healthcare provider if: ?? You have a fever higher than 102??F (38.9??C). ?? You have new or worsening shortness of breath. ?? You have thick nasal drainage for more than 2 days. ?? Your symptoms do not improve or get worse within 5 days. ?? You have questions or concerns about your condition or care. Treatment for cold symptoms may include NSAIDS to decrease muscle aches and fever. Cold medicines may also be given to decrease coughing, nasal stuffiness, sneezing, and a runny nose. Manage your cold symptoms: The following may help relieve cold symptoms, such as a dry throat and congestion: ?? Gargle with mouthwash or warm salt water as directed. ?? Suck on throat lozenges or hard candy. ?? Use a cold or warm vaporizer or humidifier to ease your breathing. ?? Rest for at least 2 days and then as needed to decrease tiredness and weakness. ?? Use petroleum based jelly around your nostrils to decrease irritation from blowing your nose. ?? Drink plenty of liquids. Liquids will help thin and loosen thick mucus so you can cough it up. Liquids will also keep you hydrated. Ask your healthcare provider which liquids are best for you and how much to drink each day. Prevent the spread of germs by washing your hands often. You can spread your cold germs to others for at least 3 days after your symptoms start. Do not share items, such as eating utensils. Cover your nose and mouth when you cough or sneeze using the crook of your elbow instead of your hands. Throwused tissues in the garbage. Do not smoke: Smoking may worsen your symptoms and increase the length of time you feel sick. Talk with your healthcare provider if you need help to stop smoking. Follow up with your healthcare provider as directed: Write down your questions so you remember to ask them during your visits. ?? 2017 [employer] Information is for End User's use only and may not be sold, redistributed or otherwise used for commercial purposes. All illustrations and images included in CareNotes?? are the copyrighted property of [employer]. or [employer]. The above information is an hospitality aide only. It is not intended as medical advice for individual conditions or treatments. Talk to your doctor, nurse or pharmacist before following any medical regimen to see if it is safe and effective for you. NING OFFICIAL documented in this encounter Progress Notes * eRa Craven APRN-CNP - 06/25/2017 4:35 PM CST [facility] Chief Complaint Patient presents with ??? Cold Symptoms drainage SUBJECTIVE: HPI Comments: 37 yo female presents with nasal drainage. Partner tested positive for strep, and wants strep test. Afebrile. Past Medical History: Diagnosis Date ??? Glaucoma being treated for pre gluacoma No current outpatient prescriptions on file prior to visit. No current facility-administered medications on file prior to visit. Past Surgical History: Procedure Laterality Date ??? Eye Procedure/Surgery ??? MYRINGOTOMY WITH TUBE INSERTION ??? OTHER SURGERY fibroid ??? Tonsillectomy and Adenoidectomy Social History Social History ??? Marital status: Single Spouse name: N/A ??? Number of children: N/A ??? Years of education: N/A Occupational History ??? Not on file. Social History Main Topics ??? Smoking status: Never Smoker ??? Smokeless tobacco: Not on file ??? Alcohol use Not on file ??? Drug use: Not on file ??? Sexual activity: Not on file Other Topics Concern ??? Not on file Social History Narrative ??? No narrative on file No family history on file. Current Outpatient Prescriptions Medication Sig Dispense Refill ??? Travoprost (TRAVATAN OP) No current facility-administered medications for this visit. Allergies Allergen Reactions ??? Penicillins Skin Reactions REVIEW OF SYSTEMS: Review of Systems Constitutional: Negative. HENT: Positive for congestion. Respiratory: Negative. Cardiovascular: Negative. Gastrointestinal: Negative. OBJECTIVE: General appearance: alert, well appearing, and in no distress. BP 136/92 Pulse 101 Temp 99 ??F (Oral) Ht 1.676 m (5' 6 ) Wt 119.3 kg (263 lb) BMI 42.45 kg/m2 Physical Exam Constitutional: She is oriented to person, place, and time and well-developed, well-nourished, and in no distress. HENT: Head: Normocephalic. Right Ear: External ear normal. Left Ear: External ear normal. Nose: Nose normal. PND noted posterior pharynx. Mild erythema Neck: Normal range of motion. Neck supple. Cardiovascular: Normal rate and regular rhythm. Pulmonary/Chest: Effort normal and breath sounds normal. Neurological: She is alert and oriented to person, place, and time. Skin: Skin is warm and dry. ASSESSMENT: Office Visit on 06/25/17 STREP A SCREEN - POINT OF CARE (AMB) STL Result Value Ref Range Strep A Rapid Negative Negative Strep A INTERNAL CONTROL Present Lot Number [id number] Expiration Date [address] Encounter Diagnosis Name Primary? Acute allergic rhinitis, unspecified seasonality, unspecified trigger Yes PLAN: Orders Placed This Encounter ??? STREP A SCREEN - POINT OF CARE (AMB) STL STREP NEGATIVE Cold Symptoms BUTADIENE COMPRESSOR OPERATOR: Cold symptoms include sneezing, dry throat, a stuffy nose, headache, watery eyes, and a cough. Yourcough may be dry, or you may cough up mucus. You may also have muscle aches, joint pain, and tiredness. Rarely, you may have a fever. Cold symptoms occur from inflammation in your upper respiratory system caused by a virus. Most colds go away without treatment. Seek care immediately if: ?? You have increased tiredness and weakness. ?? You are unable to eat. ?? Your heart is beating much faster than usual for you. ?? You see white spots in the back of your throat and your neck is swollen and sore to the touch. ?? You see pinpoint or larger reddish-purple dots on your skin. Contact your healthcare provider if: ?? You have a fever higher than 102??F (38.9??C). ?? You have new or worsening shortness of breath. ?? You have thick nasal drainage for more than 2 days. ?? Your symptoms do not improve or get worse within 5 days. ?? You have questions or concerns about your condition or care. Treatment for cold symptoms may include NSAIDS to decrease muscle aches and fever. Cold medicines may also be given to decrease coughing, nasal stuffiness, sneezing, and a runny nose. Manage your cold symptoms: The following may help relieve cold symptoms, such as a dry throat and congestion: ?? Gargle with mouthwash or warm salt water as directed. ?? Suck on throat lozenges or hard candy. ?? Use a cold or warm vaporizer or humidifier to ease your breathing. ?? Rest for at least 2 days and then as needed to decrease tiredness and weakness. ?? Use petroleum based jelly around your nostrils to decrease irritation from blowing your nose. ?? Drink plenty of liquids. Liquids will help thin and loosen thick mucus so you can cough it up. Liquids will also keep you hydrated. Ask your healthcare provider which liquids are best for you and how much to drink each day. Prevent the spread of germs by washing your hands often. You can spread your cold germs to others for at least 3 days after your symptoms start. Do not share items, such as eating utensils. Cover your nose and mouth when you cough or sneeze using the crook of your elbow instead of your hands. Throwused tissues in the garbage. Do not smoke: Smoking may worsen your symptoms and increase the length of time you feel sick. Talk with your healthcare provider if you need help to stop smoking. Follow up with your healthcare provider as directed: Write down your questions so you remember to ask them during your visits. ?? 2017 [employer] Information is for End User's use only and may not be sold, redistributed or otherwise used for commercial purposes. All illustrations and images included in CareNotes?? are the copyrighted property of [employer] or [employer]. The above information is an hospitality aide only. It is not intended as medical advice for individual conditions or treatments. Talk to your doctor, nurse or pharmacist before following any medical regimen to see if it is safe and effective for you. NING OFFICIAL documented in this encounter Plan of Treatment Upcoming Encounters Date Type Department Care Team (Late st Contact Info) Description 06/07/2024 1:00 PM PLANNING OFFICIAL Office Visit [facility] - Ophthalmology [address] [place] [phone] Chrystal Roa MD [address] [place] [address] DE[place] [phone] 06/23/2024 2:00 PM PLANNING OFFICIAL Office Visit [facility] - Ophthalmology [address] [place] [phone] Fidel Moss MD [address] [place] [phone] documented as of this encounter Procedures Procedure Name Priority Date/Time Associated Diagnosis Comments STREP A SCREEN - POINT OF CARE (AMB) STL Routine 06/25/2017 Acute allergic rhinitis, unspecified seasonality, unspecified trigger documented in this encounter Results * STREP A SCREEN - POINT OF CARE (AMB) STL (06/25/2017) Strep A Rapid POCT Negative Negative Strep A Internal Control Present Lot # [id number] Expiration Date [address]72 Throat ENTIRE THROAT (SURFACE REGION OF NECK) / Unknown 06/25/2017 [facility] - POINT OF CARE ORDERABLES documented in this encounter Visit Diagnoses Diagnosis Acute allergic rhinitis, unspecified seasonality, unspecified trigger- Primary documented in this encounter Care Teams Labor And Employment Paralegal Relationship Specialty Start Date End Date Zoran Willams DO [address] [place] [address] PCP - General Family Medicine 01/10/16 03/20/20 documented as of this encounter
--- OUTSIDE RECORDS SUMMARY | 2024-05-13 22:21 | XMS_ITS | Encounter Summary ---
Author Organization [facility] Address [address] [place] [address] Care Team Providers Care Radiator Core Tester Name Role Phone Martha Lawrence MD Primary Care Provider [phone] Reason for Visit * Reason Comments Post-Op Encounter Details Date Type Department Care Team (Late st Contact Info) Description 07/12/2020 8:30 AM RATE EXAMINER Office Visit [facility] [address] [place] [phone] Fidel Moss MD [address] [place] [phone] Postsurgical states following surgery of [...] this encounter Patient Instructions * Patient Instructions* Shade Price MD - 07/12/2020 9:19 AM RATE EXAMINER Continue post op drops until they run out, then continue Maxitrol twice a day until next visit EXAMINER documented in this encounter Progress Notes * Shade Price MD - 07/12/2020 8:59 AM CST Progress Note [facility] HPI: Cesario Jewell is a 40 year old female had PROCEDURE PERFORMED: Ahmed implant, Pars Plana tube placement and viscoelastic tamponade, Subconjunctival Dexamethasone Depot right eye On 07/03/20. Patient states vision is a lot clearer but she has streaking with light and she is having huge clusters of floaters. She can get in an hour or two on the computer and then she has to step away because of fatigue. Patient states she has pain then comes and goes but hurts after she uses it more. The pain isn't as bad as before. Gtt: Patient not sure of 3 drops she is on. White cap QID OD Rawls cap QID OD Berman cap QID OD Ointment QD OD The following was also reviewed and updated: [...] 10 mg by mouth once daily ??? scjciqjd-nmreplbuu-tdowepsk (MAXITROL) ophthalmic suspension Instill 1 (one) drop into right eye 2 times daily 5 mL 0 ??? omeprazole (PRILOSEC) 20 MG capsule TAKE [...] tube placement in the vitreous cavity ??? Tonsillectomy and Adenoidectomy ??? Vitrectomy Right 04/18/2020 Right; pars plana vitrectomy of the right eye No family history on file. Social History Tobacco Use ??? Smoking status: Never Smoker ??? Smokeless tobacco: Never Used Substance Use Topics ??? Alcohol use: Never Frequency: Never ??? Drug use: Never Base Eye Exam Visual Acuity (Snellen - Linear) Right Left Dist cc 20/40 Dist ph cc NI Correction: Glasses Tonometry (Tonopen, 8:19 AM) Right Left Pressure 14 Tonometry #2 (Applanation, 9:07 AM) Right Left Pressure 10 Pupils Pupils Right PERRL Left PERRL Extraocular Movement Right Left Full Full Neuro/Psych Oriented x3: Yes Mood/Affect: Normal Slit Lamp and Fundus Exam External Exam Right Left External Normal Slit Lamp Exam Right Left Lids/Lashes Normal pros Conjunctiva/Sclera Post surgical conj, good bleb formation Cornea Mild edema, temporal wounds Anterior Chamber Deep and quiet Iris Round and reactive Lens Sulcus lens Vitreous clear, vitrectomized. Tube superotemporally Assessment/Plan Cesario Jewell is a 40 year old female 1. POW1 s/p Ahmed Valve - Doing well - VA 20/40 with good bleb formation - IOP 10 today with applanation - Minimal AC inflammation - Tube visible in vitreous behind sulcus lens - Patient complaining of floaters as well as persistent streaking across lights 2. Congenital glaucoma OD - Patient??previously saw??Dr. Pappas??at [facility]??only once, would like to establish glaucoma careher - HVF today reliable with mild non-specific changes ?? 3. s/p 25g PPV OD for??visually significant vitreous opacities/PVD??(04/18/20) - PPV performed due to??significant effect on daily activities and poor performance at work due to PVD - VA??20/30, retina flat - Follows with Dr. Roa ?? 4. Prosthetic Eye??OS?? 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 5.??Pseudophakia, OD - Anterior capsule phimosis -??Monocular precautions - States glasses are polycarbonate PLAN: - Follow up in 2-3 weeks - Work note provided - Continue post op drops until they run out, then continue Maxitrol BID until next visit All questions were answered to the best of my ability. Patient verbalized understanding and is in agreement with the plan. Shade Price M.D (Jake). Ophthalmology, PGY-2 ATTENDING NOTE Attestation: I supervised the resident who evaluated this post-op patient.. We may consider trial of pilocarpine in the event that the edge of the tube in vitreous cavity is causing some vision changes reported by the patient as a trial Fidel Moss MD 07/12/2020 10:51 AM EXAMINER documented in this encounter Plan of Treatment Upcoming Encounters Date Type Department Care Team (Late st Contact Info) Description 06/07/2024 1:00 PM RATE EXAMINER Office Visit [facility] - Ophthalmology [address] [place] [phone] Chrystal Roa MD [address] [place] [address] [place] [phone] 06/23/2024 2:00 PM RATE EXAMINER Office Visit [facility] - Ophthalmology [address] [place] [phone] Fidel Moss MD [address] [place] [phone] documented as of this encounter Visit Diagnoses Diagnosis Postsurgical states following surgery of eye and adnexa- Primary Other states following surgery of eye and adnexa documented in this encounter Care Teams Radiator Core Tester Relationship Specialty Start Date End Date Martha Lawrence MD PCP - General 03/21/20 documented as of this encounter
--- OUTSIDE RECORDS SUMMARY | 2024-05-13 22:21 | XMS_ITS | Encounter Summary ---
Author Organization [facility] Address [address] [place] [address] Care Team Providers Care Senior Sas Programmer Name Role Phone Martha Lawrence MD Primary Care Provider [phone] Reason for Visit * Reason Comments Follow-up s/p 25g PPV OD for v isually significant vitreous opacities/PVD (04/18/20) Encounter Details Date Type Department Care Team (Late st Contact Info) Description 08/26/2020 8:30 AM CDT Office Visit [facility] [address] [place] [phone] Chrystal Roa MD [facility] [facility] [place] [phone] Status post vitrectomy surgery for vitreous floaters, right eye 04/18/2020 (Primary Dx); s/p Ahmed implant 07/03/2020 OD ; Secondary glaucoma, mild stage, right; Pseudophakia; Prosthetic eye globe Social History Tobacco Use [...] this encounter Patient Instructions * Patient Instructions* Chrystal Roa MD - 08/26/2020 9:35 AM CDT [facility] Ophthalmology Located at: [facility] Medicine Ophthalmology [address] [place] [address] Your Visit from 08/26/2020 Follow up Appointment:6 months retina - It is important that you follow up with us for the health of your eyes. - If you have trouble making or getting to your appointment please call our clinic Eye Drop Instructions: In the right eye: In the left eye: Oral Medications: Activity Instructions: Do Not Rub [...] you have trouble getting thesemedicines. Phone Number: Week (8am-5pm) - Call [phone] () Evenings, Weekends, or Holidays: Call [phone] and dial [phone] for the thickener operator. Ask to speak to the eye doctor call center professional. They will connect us. documented in this encounter Progress Notes * Chrystal Roa MD - 09/01/2020 2:40 PM CDT Ophthalmology Office Note Subjective: Chief Complaint Patient presents with ??? Follow-up s/p 25g PPV OD for visually significant vitreous opacities/PVD (04/18/20) Cesario Jewell is a 40 year old female Pt had a tube thing in OD, with all lights they are slanted. Streaks also. No pain or flashes. Floaters are resolved after vitrectomy surgery. Gtts: Pilocarpine 1% OD BID Sldae/Poly OD BID Past History: Past Medical History: Diagnosis Date [...] No family history on file. Social History Socioeconomic History ??? Marital status: [...] Social Determinants of Health Financial Resource Strain: ??? Difficulty of Paying Living Expenses: Food Insecurity: ??? Worried About Running Out of Food in the Last Year: ??? Ran Out of Food in the Last Year: Transportation Needs: ??? Lack of Transportation (Medical): ??? Lack of Transportation (Non-Medical): Physical Activity: ??? Days of Exercise per Week: ??? Minutes of Exercise per Session: Stress: ??? Feeling of Stress : Social Connections: ??? Frequency of Communication with Friends and Family: ??? Frequency of Social Gatherings with Friends and Family: ??? Attends [employer] Services: ??? Active Member of Clubs or Organizations: ??? Attends Club or Organization Meetings: ??? Marital Status: Intimate Partner Violence: ??? Fear of Current or Ex-Partner: ??? Emotionally Abused: ??? Physically Abused: ??? Sexually Abused: Review of Systems Constitutional: Negative for chills, [...] MG tablet alprazolam 0.5 mg tablet ??? buPROPion XL 24hr (WELLBUTRIN-XL) 150 MG tablet TAKE 1 TABLET BY MOUTH EVERY DAY IN THE MORNING ??? Cholecalciferol 125 MCG (5000 UT) Vitamin D3 125 mcg (5,000 unit) tablet TAKE 1 TABLET BY MOUTH EVERY DAY IN THE MORNING ??? dulaglutide (TRULICITY) 1.5 MG/0.5ML injection Trulicity [...] BY MOUTH EVERY DAY AT BEDTIME ??? LORazepam (ATIVAN) 0.5 MG tablet ??? metFORMIN ER 24hr (GLUCOPHAGE XR) 500 MG tablet TAKE 2 TABLETS BY MOUTH EVERY DAY BEFORE MEALS. ??? montelukast (SINGULAIR) 10 MG tablet Take 10 mg by mouth once daily ??? qzafqnls-impggwujv-kbrwpkdg (MAXITROL) ophthalmic suspension Instill 1 (one) drop into right eye 2 times daily 5 mL 0 ??? omeprazole (PRILOSEC) 20 MG capsule TAKE 1 CAPSULE BY MOUTH EVERY DAY 30 MINUTES BEFORE MORNINGMEAL ??? pilocarpine (PILOCAR) 1 % ophthalmic solution Instill 1 (one) drop into right eye 2 times daily15 mL 4 ??? spironolactone (ALDACTONE) 100 MG tablet TAKE 1 TABLET BY MOUTH EVERY DAY IN THE MORNING ??? traZODone (DESYREL) 150 MG tablet TAKE 1 TABLET BY MOUTH EVERYDAY AT BEDTIME ??? XULANE 150-35 MCG/24HR patch APPLY ONE PATCH EVERY WEEK No current facility-administered medications for this visit. Allergies Allergen Reactions ??? Penicillins Urticaria, Rash and Skin Reactions ??? Sulfa Drugs Urticaria, Rash and Itching ??? Sulfacetamide Urticaria, Rash, Eye Discomfort and Eye Itching ??? Oxycodone-Acetaminophen Diarrhea, Nausea and/or Vomiting and Vomiting Objective: Base Eye Exam Visual Acuity (Snellen - Linear) Right Left Dist cc 20/30+1 Prosth Correction: Glasses Tonometry (Tonopen, 9:15 AM) Right Left Pressure 24 Tonometry #2 (Applanation, 9:34 AM) Right Left Pressure 17 Tonometry Comments Applanation: Piri Pupils Dark Light Shape React APD Right 3 2 Round very slow Left +4 Visual Bay Left Right Full Restrictions Total superior temporal, inferior temporal, superior nasal, inferior nasal deficiencies Extraocular Movement Right Left Full Full Neuro/Psych Oriented x3: Yes Mood/Affect: Normal Dilation Right eye: 1.0% Mydriacyl, 2.5% Slade Synephrine @ 9:15 AM Slit Lamp and Fundus Exam External Exam Right Left External Normal Normal Slit Lamp Exam Right Left Lids/Lashes Normal pros Conjunctiva/Sclera Post surgical conj, good bleb formation Cornea Clear Anterior Chamber Inferior endopigment Iris Round and reactive Lens Sulcus lens Vitreous clear, vitrectomized. Tube superotemporally clear extending to the visual axis. Fundus Exam Right Left Disc Normal Macula flat Vessels Normal Periphery Attached 360 Refraction Wearing Rx Sphere Cylinder Platina Right -3.50 +0.75 098 Left bal Type: SVL Studies 08/26/2020 OCT Macula OD OD: Normal retina crosssection with preservation of fovea, clivus, and cellular lamina Extended ophthalmoscopy OD: Flat macula, attached 360 Assessment/Plan: Ms. Jewell is a 40 yo F #POM#4 s/p 25g PPV OD for visually significant vitreous opacities/PVD (04/18/20) -Good postop appearance - retina flat - BCVA 20/30, no CME #Congenital glaucoma mild stage, OD - Follows with Dr Moss - s/p Ahmed implant on 07/03/2020 - IOP 17 GAT today - On radha 1% bid to help with miosis and decrease the slanted light scatter from the tube, patient does not notice any changes with the eye drop - Sulfa allergy is because she had periorbital rash after iopidine - Patient previously saw Dr. Pappas at 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 - Follow up with Dr Moss as scheduled - Follow up retina 6 months I reviewed and confirmed the techs ROS, past histories, and readings. I have personally seen and examined the patient, and without resident/fellow. I have personally performed the extended ophthalmoscopy.The final examination findings, image interpretations, and plan as documented in the record represent my personal judgment and conclusions. with the following additions or corrections: Follow up: 6 months Retina, DFE OD, OCT [place] OD Glaucoma as scheduled with Dr Isa Roa MD Attending, Retina and Uveitis Service Date of Service: 08/26/2020 documented in this encounter Plan of Treatment Upcoming Encounters Date Type Department Care Team (Late st Contact Info) Description 06/07/2024 1:00 PM TAPPER BIT Office Visit [facility] - Ophthalmology [address] [place] [phone] Chrystal Roa MD [address] [place] [address] [place] [phone] 06/23/2024 2:00 PM TAPPER BIT Office Visit [facility] - Ophthalmology [address] [place] [phone] Fidel Moss MD [address] [place] [phone] documented as of this encounter Procedures Procedure Name Priority Date/Time Associated Diagnosis Comments OPH OCT TEST [facility] Routine 08/26/2020 9:04 AM CDT Status post vitrectomy surgery for vitreous floaters, right eye 04/18/2020 documented in this encounter Results * OPH OCT TEST [facility] (08/26/2020 9:04 AM CDT) Anatomical Region Laterality Modality Other 08/26/2020 9:04 AM CDT Chrystal Roa MD OPHTHALMOLOGY SERVIC ES ORDERABLES documented in this encounter Visit Diagnoses Diagnosis Status post vitrectomy surgery for vitreous floaters, right eye 04/18/2020- Primary Other states following surgery of eye and adnexa s/p Ahmed implant 07/03/2020 OD Other states following surgery of eye and adnexa Secondary glaucoma, mild stage, right Pseudophakia Lens replaced by other means Prosthetic eye globe Eye globe replaced by other means documented in this encounter Care Teams Senior Sas Programmer Relationship Specialty Start Date End Date Martha Lawrence MD PCP - General 03/21/20 documented as of this encounter
--- OUTSIDE RECORDS SUMMARY | 2024-05-13 22:21 | XMS_ITS | Encounter Summary ---
Author Organization [facility] Address [address] [place] [address] Care Team Providers Care Electric Sign Assembler Name Role Phone Martha Lawrence MD Primary Care Provider Reason for Visit * Auth/Cert Specialty Diagnoses / Procedures Referred By Joelle lopez Referred To Contact Diagnoses Symptomatic posterior vitreous detachment of right eye Symptomatic posterior vitreous detachment of right eye Procedures VITRECTOMY MECHANICAL PARS PLANA Referral ID Status Reason Start Date Expiration Date Visits Re quested Visits Authorized [id number] 1 1 Encounter Details Date Type Department Care Team (Late st Contact Info) Description 04/18/2020 7:53 AM PIPE ORGAN TUNER AND REPAIRER Anesthesia Event [facility] [address] [place] [address] Neyda Beavers MD [address] [facility] DEPT [place] [address] Anesthesia Record Procedure Summary Procedure Name Responsible Anesthesiologist Anesthesia Start Time Anesthesia Stop Time pars plana vitrectomy of the right eye (Right: Eye) Neyda Beavers MD 04/18/20 0753 04/18/20 0925 Events Date Time Event Comment 04/18/2020 0712 0753 Pt In Room 0753 An Start 0753 An Start Data 0757 Anes Timeout 0758 Induction 0759 PT Reassessment 0800 An LMA 0802 Anes Ready 0811 Time Out Anesthesia part icipated in timeout at the time documented in the record by nursing 0814 Proc Start 0909 Proc Stop 0911 An Emergence 0919 An LMA Removed 09 an stop data 0922 Pt out of Room 0922 ANPTO2 0925 An Stop Meds Name Total midazolam 2 mg/2mL injection 2 mg fentaNYL 100 mcg/2ml injection 150 mcg propofol 200mg/20mL injection 220 mg lidocaine PF 2% 80 mg ondansetron 4mg/2mL injection 4 mg famotidine 20 mg/2mL injection 20 mg dexamethasone 10 mg/ml PF injection 8 mg LR (Lactated ringers) 800 mL * Agents Name Exp. Sevoflurane Exp. N2O Insp. Sevoflurane * Blood No blood administrations on file. Lines, Drains, and Airways Type Details Placement Removal Peripheral IV Date: 04/18/20; Time : 645; Orientation: Right; Placed By: SANJANA New; Tolerance: Well 04/18/20 0646 by Gypsy Santos RN 04/18/20 0928 by Mirtha Mandujano, RN LMA 04/18/20; 0803 (created via procedure documentation); Neyda Beavers MD; Standard IV; easy mask; LMA; 4.0; CO2 Monitor; 04/18/20; 0919 04/18/20 0803 by Kriss Katz Anes Assjohn 04/18/20 0919 by Kriss Katz Anes Asst Procedural Site (Incision) 04/18/20; 0912; Right; Eye; 04/18/20; 0954 04/18/20 0912 by Suze Steve RN 04/18/20 0954 by Mirtha Mandujano, RN documented in this encounter Social History Tobacco Use Types Packs/Day Years [...] as of this encounter Progress Notes * Neyda Beavers MD - 04/18/2020 10:29 AM CST ANESTHESIA POSTOP EVALUATION NOTE Procedure: pars plana vitrectomy of the right eye (Right Eye) Cesario Jewell is a 40 year old female Patient Vitals for the past 6 hrs: BP Temp Pulse Resp SpO2 Pain Rating Score #1 Pain Scale/Observation 04/18/20 0642 133/76 -- 80 12 -- -- No/denies pain 04/18/20 0925 150/78 98.7 ??F (37.1 ??C) 99 18 97 % -- No/denies pain 04/18/20 0928 -- -- -- -- -- -- No/denies pain 04/18/20 0930 134/70 -- 92 14 97 % -- -- 04/18/20 0931 -- -- 92 12 97 % -- -- 04/18/20 0940 133/91 -- 104 17 96 % -- -- 04/18/20 0945 132/85 98.4 ??F (36.9 ??C) (!) 110 16 97 % -- -- 04/18/20 0946 -- -- -- -- -- 8 -- 04/18/20 0951 -- -- (!) 110 16 94 % -- -- 04/18/20 0955 134/84 98.4 ??F (36.9 ??C) (!) 113 16 94 % -- -- Anesthesia Type: general LMA Pre-op Diagnosis Codes: * Symptomatic posterior vitreous detachment of right eye [H43.811] Mental Status: awake, alert, orientated, sufficiently recovered from acute administration of anesthesia to participate in the evaluation, neurologic status has returned to perioperative level and neurologic status has returend to expected level of consciousness Neuro Status: No numbess, tingling or visual disturbances Respiratory Function: natural Cardiac Function: stable Postop Pain: acceptable to the patient and adequate Postop Hydration: adequate Postop Nausea: none Assessment: no apparent anesthetic complications, patient tolerated procedure well and no evidence of recall Patient Disposition: Release from Anesthesia Care COMPLICATIONS: No complications documented. ORGAN TUNER AND REPAIRER * Neyda Beavers MD - 04/17/2020 1:18 PM CST ANESTHESIA PREOPERATIVE EVALUATION NOTE Procedure: 25 Gauge pars plana vitrectomy, possible endolaser, and possible air fluid exchange of the right eye (Right ) Vitals: No data found. ANESTHESIA PRE-EVALUATION NOTE Physical Exam: Orientation X3 Airway/Mallampati Score: II Mouth Opening Distance: 2.5 fingerwidths Neck ROM: full TM Distance: > 3 FB Teeth: normal Heart: regular rate rhythm and normal - S1 S2 Lungs: normal and clear to ausculation bilaterally Abdomen Exam: normal and obese ANESTHESIA PLAN ASA Score: 3 NPO Status: No solids since midnight Anesthesia Plan: general LMA and general Planned Induction: intravenous Planned Postop Destination: OPS and PACU Anesthetic plan was discussed with: patient Anesthetic Plan discussion was: Consented The patient's procedural Anesthetic Plan was discussed with the TILE AND MOTTLE SUPERVISOR. I have reviewed the patient's chart I have interviewed the patient I have examined the patient I have reviewed the plan for the patient I agree with the documentation and have discussed the anesthesia plan I have discussed the anesthesia plan The patient agrees Yes - I attest to documenting, updating or reviewing a patient's current medications using all immediate resources available on the date of the encounter. This list must include ALL known prescriptions, [id number], herbals, and vitamin/mineral/dietary (nutritional) supplements AND must contain the medications' name, dosages, frequency and route of administration BMI, Height, Weight Tobacco History Estimated body mass index is 36.8 kg/m?? as calculated from the following: Height as of this encounter: 1.676 m (5' 6 ). Weight as of this encounter: 103.4 kg (228 lb). Social History Tobacco Use Smoking Status Never Smoker Smokeless Tobacco Never Used Alcohol History Drug History Social History Substance and Sexual Activity Alcohol Use Never ??? Frequency: Never Social History Substance and Sexual Activity Drug Use Never Outpatient Medications: Inpatient Medications: No outpatient medications have been marked as taking for the 04/18/20 encounter (Hospital Encounter). No current facility-administered medications for this encounter. Allergies: Allergies Allergen Reactions ??? Penicillins Skin Reactions, Urticaria and Rash ??? Sulfa Drugs Urticaria, Rash and Itching ??? Sulfacetamide Urticaria, Rash, Eye Discomfort and Eye Itching ??? Sulfasalazine Urticaria and Rash ??? Oxycodone-Acetaminophen Diarrhea, Nausea and/or Vomiting and Vomiting Relevant Problems No relevant active problems Problem List: Patient Active Problem List Diagnosis Date Noted ??? Acute posthemorrhagic anemia 03/26/2020 Priority: Not [...] Nasal saline spray (Simply saline, Little Remedies, [place]au[place], Alexis) 2 second sprays or 2 squeezes into each nostril while looking down over the sink, do not need to sniff in. Follow up in 6 months, earlier with any ear drainage 07/06/2019 T-tubes placed in Office ??? Acute recurrent maxillary sinusitis 05/26/2019 Priority: Not Prioritized Last Assessment & Plan: Take Cefdinir with a meal daily Nasal saline spray (Simply saline, Little Remedies, Maui, Alexis) 2 second sprays or 2 squeezes into [...] Nasal saline spray (Simply saline, Little Remedies, [place]aui, Alexis) 2 second sprays or 2 squeezes into [...] 09/23/2013 Priority: Not Prioritized MIXED HYPERLIPIDEMIA ??? Glaucoma 05/12/2013 Priority: Not Prioritized Glaucoma ??? Iron deficiency anemia 02/18/2012 Priority: Not Prioritized Iron deficiency anemia Medical History: Past Medical History: Diagnosis Date ??? [...] Vitamin D deficiency 05/14/2014 Vitamin D deficiency Surgical History: Past Surgical History: Procedure Laterality Date ??? Cataract Removal Right ??? 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 LASER (YAG) CAPSULOTOMY Right ??? Myomectomy ??? MYRINGOTOMY WITH TUBE INSERTION ??? Tonsillectomy and Adenoidectomy Lab Results: Invalid input(s): OSMOLAITY Invalid input(s): PREGTESTUR Invalid input(s): ANIONAPART, PREALBIUMIN, [id number] ORGAN TUNER AND REPAIRER documented in this encounter Procedure Notes * Kriss Katz Anes Asst - 04/18/2020 8:03 AM CSTAssociated Order(s): LMA Placement LMA Placement Procedure/LDA Note: Patient Location: OR. Procedure: LMA. Induction: standard IV Patient position: sniffing. Mask Ventilation: easy Type: LMA Size: 4 Number of Attempts: 1. Placement verified by: CO2 monitor Staff Section Anesthesia Provider: Neyda Beavers MD Provider #1: Kriss Katz Anes Asst, Performed the procedure. ORGAN TUNER AND REPAIRER documented in this encounter Miscellaneous Notes * Anesthesia Transfer of Care - Kriss Katz Anes Asst - 04/18/2020 9:25 AM CST ANESTHESIA TRANSFER OF CARE NOTE Today's Date: 04/18/2020 Date of : 1980 Patient: Cesario Jewell Procedure(s): pars plana vitrectomy of the right eye Surgeon(s): Primary: Chrystal Roa MD Resident - Assisting: Gavin Tamez MD Preop Diagnosis: Pre-op Diagnois: * Symptomatic posterior vitreous detachment of right eye [H43.811] Pre-op Meds (From admission, onward) Start Stop Status Route Frequency Ordered 04/18/20627 0.9% NaCl injection 1-10 mL -- Dispensed IK PRN 04/18/2062704/18/20629 0.9% NaCl injection 3 mL -- Dispensed IK EVERY 8 HOURS 04/18/2062704/18/20627 cyclopentolate (CYCLOGYL) 2% ophthalmic solution 04/18 648 Completed RIGHT EYE PRE-OP MULTIPLE 04/18/2028 04/18/20629 lactated ringers infusion 04/18 629 Dispensed IV CONTINUOUS 04/18/2062704/18/20627 phenylephrine (MYDFRIN) 2.5% ophthalmic solution 04/18 648 Completed RIGHT EYE PRE-OP MULTIPLE 04/18/2062704/18/20629 proparacaine (ALCAINE) ophthalmic solution 1 drop 04/18 638 Completed RIGHT EYE PRE-OP ONCE 04/18/2062704/18/20627 tropicamide (MYDRIACYL) 1% ophthalmic solution 04/18 648 Completed RIGHT EYE PRE-OP MULTIPLE 12/10/20 0628 Post-op Diagnosis: * Symptomatic posterior vitreous detachment of right eye [H43.811] . Allergies Allergen Reactions ??? Penicillins Urticaria, Rash and Skin Reactions ??? Sulfacetamide Urticaria, Rash, Eye Discomfort and Eye Itching ??? Oxycodone-Acetaminophen Diarrhea, Nausea and/or Vomiting and Vomiting Vitals: Patient Vitals for the past 3 hrs: BP Pulse Resp 04/18/20 0642 133/76 80 12 Lines, Drains, and Airways Type Details Placement Removal Peripheral IV Date: 04/18/20; Time: 645; Orientation: Right; Location: Hand; Placed By: SANJANA New; Gauge: 20 Gauge; Locals: None; Tolerance: Well 04/18/20 06 by Gypsy Santos RN LMA 04/18/20; 802 (created via procedure documentation); Neyda Beavers MD; Standard IV; easy mask; LMA; 4.0; CO2 Monitor; 04/18/20; 91804/18/20 08 by Kriss Katz Anes Asst 04/18/20918 by Kriss Katz Anes Asst Intraprocedure I/O Totals Intake LR (Lactated ringers) 800.00 mL Total Intake 800 mL Patient Transfer Location: PACU Transport Airway: supplemental O2 and spontaneous respirations Complications: None Handoff Given? Yes Checklist or Protocol - The vizcarra handoff elements that must be included in the transfer of care checklist include: 1. Identification of patient. 2. Identification of responsible practitioner (PACU nurse or advanced practitioner). 3. Discussion of pertinent medical history. 4. Discussion of the surgical/procedure course (procedure, reason for surgery, procedure performed). 5. Intraoperative anesthetic management and issue/concerns. 6. Expectations/Plans for the early post-procedure period. 7. Opportunity for questions and acknowledgement of understanding of report from the receiving PACUteam. Sarah Britot ORGAN TUNER AND REPAIRER documented in this encounter Plan of Treatment Upcoming Encounters Date Type Department Care Team (Late st Contact Info) Description 06/07/2024 1:00 PM PIPE ORGAN TUNER AND REPAIRER Office Visit [facility] - Ophthalmology [address] [place] [phone] Chrystal Roa MD [address] [facility] [place] [phone] 06/23/2024 2:00 PM PIPE ORGAN TUNER AND REPAIRER Office Visit [facility] - Ophthalmology [address] [place] [phone] Fidel Moss MD [address] [place] [phone] documented as of this encounter Procedures Procedure Name Priority Date/Time Associated Diagnosis Comments LARYNGEAL MASK AIRWAY Routine 04/18/2020 8:03 AM PIPE ORGAN TUNER AND REPAIRER documented in this encounter Results * LARYNGEAL MASK AIRWAY (04/18/2020 8:03 AM PIPE ORGAN TUNER AND REPAIRER) Narrative Kriss Katz Anes Asst - 04/18/2020 8:03 AM PIPE ORGAN TUNER AND REPAIRER Kriss Katz Anes Asst ? 04/18/2020 ??8:03 AM LMA Placement Procedure/LDA Note: Patient Location: OR. Procedure: LMA. Induction: standard IV Patient position: sniffing. Mask Ventilation: easy Type: ??LMA Size: ??4 Number of Attempts: 1. Placement verified by: CO2 monitor Staff Section ?? Anesthesia Provider: Neyda Beavers MD Provider #1: Kriss Katz Anes Asst, Performed the procedure. Neyda Beavers MD GENERAL ANESTHESIA ORDERABLES documented in this encounter Visit Diagnoses Not on filedocumented in this encounter Administered Medications Inactive Administered Medications - up to 3 most recent administrations Medication Order MAR Action Action Date Dose Rate Site Dexamethasone Sod Phosphate PF injection PRN, Starting on [place] 04/18/20 at 0805, Until [place] 04/18/20 at 0925, Anesthesia Intra-op $ Given 04/18/2020 8:05 AM PIPE ORGAN TUNER AND REPAIRER 8 mg famotidine (PEPCID) injection PRN, Starting on [place] 04/18/20 at 0805, Until [place] 04/18/20 at 0925, Anesthesia Intra-op $ Given 04/18/2020 8:05 AM PIPE ORGAN TUNER AND REPAIRER 20 mg fentaNYL (PF) (SUBLIMAZE) injection Intravenous, PRN, Starting on [place] 04/18/20 at 0758, Until [place] 04/18/20 at 0925, Anesthesia Intra-op $ Given 04/18/2020 8:59 AM PIPE ORGAN TUNER AND REPAIRER 25 mcg $ Given 04/18/2020 8:47 AM PIPE ORGAN TUNER AND REPAIRER 25 mcg $ Given 04/18/2020 8:13 AM PIPE ORGAN TUNER AND REPAIRER 25 mcg lactated ringers infusion Intravenous, CONTINUOUS PRN, Starting on [place] 04/18/20 at 0753, Until [place] 04/18/20 at 0925, Anesthesia Intra-op $ New Bag/Syringe 04/18/2020 7:53 AM PIPE ORGAN TUNER AND REPAIRER lidocaine hcl (PF) (XYLOCAINE MPF) 2 % injection Infiltration, PRN, Starting on [place] 04/18/20 at 0758, Until [place] 04/18/20 at 0925, Anesthesia Intra-op $ Given 04/18/2020 7:58 AM PIPE ORGAN TUNER AND REPAIRER 80 mg midazolam (VERSED) injection Intravenous, PRN, Starting on [place] 04/18/20 at 0750, Until [place] 04/18/20 at 0925, Anesthesia Intra-op $ Given 04/18/2020 7:50 AM PIPE ORGAN TUNER AND REPAIRER 2 mg Ondansetron HCl (ZOFRAN) injection Intravenous, PRN, Starting on [place] 04/18/20 at 0859, Until [place] 04/18/20 at 0925, Anesthesia Intra-op $ Given 04/18/2020 8:59 AM PIPE ORGAN TUNER AND REPAIRER 4 mg propofol (DIPRIVAN) injection Intravenous, PRN, Starting on [place] 04/18/20 at 0758, Until [place] 04/18/20 at 0925, Anesthesia Intra-op $ Given 04/18/2020 8:06 AM PIPE ORGAN TUNER AND REPAIRER 20 mg $ Given 04/18/2020 7:58 AM PIPE ORGAN TUNER AND REPAIRER 200 mg documented in this encounter Care Teams Electric Sign Assembler Relationship Specialty Start Date End Date Martha Lawrence MD PCP - General 03/21/20 documented as of this encounter
--- OUTSIDE RECORDS SUMMARY | 2024-05-13 22:21 | XMS_ITS | Encounter Summary ---
Author Organization [facility] Address [address] [facility] [place] [address] Care Team Providers Care Equipment Or Machinery Cleaner Name Role Phone Martha Lawrence MD Primary Care Provider [phone] Reason for Visit * Reason Onset Date Comments Question 03/27/2020 Encounter Details Date Type Department Care Team (Late st Contact Info) Description 03/27/2020 Telephone [facility] [address] [place] [phone] Marc Baumann MD [address] [place] [address] [place] [phone] Question Social History Tobacco Use Types Packs/Day Years Used Date Smoking Tobacco: Never Sex and Gender Information Value Date Recorded Sex Assigned at Not on file Gender Identity Not on file Sexual Orientation Not on file documented as of this encounter Miscellaneous Notes * Telephone Encounter - Franco Martinez MD - 03/27/2020 11:26 AM CST Called and spoke to patient. She states that since last night, she is noticing new flashes of light in the right eye, approx 2 last night and 3 this morning. Denies new floaters or curtain in her vision. Given Monocular status, and previous RD OS, recommended follow up today on [facility] at 2:00 PM. Patient agreeable to this plan. 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 is causing her eye to get worse [phone] SPECIALISTS documented in this encounter Plan of Treatment Upcoming Encounters Date Type Department Care Team (Late st Contact Info) Description 06/07/2024 1:00 PM [facility] SPECIALISTS Office Visit [facility] - Ophthalmology [address] [place] [phone] Chrystal Roa MD [address] [place] [address] [place] [phone] 06/23/2024 2:00 PM [facility] Office Visit [facility] - Ophthalmology [address] [place] [phone] Fidel Moss MD [address] [place] [phone] documented as of this encounter Visit Diagnoses Not on filedocumented in this encounter Care Teams Equipment Or Machinery Cleaner Relationship Specialty Start Date End Date Martha Lawrence MD PCP - General 03/21/20 documented as of this encounter
--- OUTSIDE RECORDS SUMMARY | 2024-05-13 22:21 | XMS_ITS | Encounter Summary ---
Author Organization [facility] Address [address] [facility] [place] [address] Care Team Providers Care Nailhead Setter Name Role Phone Zoran Willams Sushant ELKINS Primary Care Provider [phone] Reason for Visit * Reason Onset Date Comments Follow-up 06/27/2017 Encounter Details Date Type Department Care Team (Late Contact Info) Description 06/27/[address] [facility] AT [address] [phone] Rea Craven, [facility] [address] [place] [phone] Follow-up Social History Tobacco Use Types Packs/Day Years Used Date Smoking Tobacco: Never Sex and Gender Information Value Date Recorded Sex Assigned at Not on file Gender Identity Not on file Sexual Orientation Not on file documented as of this encounter Plan of Treatment Upcoming Encounters Date Type Department Care Team (Late Contact Info) Description 06/07/2024 1:00 PM SUPERVISOR ROD PLACING Office Visit [facility] - Ophthalmology [address] [place] [phone] Chrystal Roa MD [address] [place] [address] DE[place] [phone] 06/23/2024 2:00 PM SUPERVISOR ROD PLACING Office Visit [facility] - Ophthalmology [address] [place] [address] [place] [phone] Fidel Moss MD [address] [place] [phone] documented as of this encounter Visit Diagnoses Not on filedocumented in this encounter Care Teams Nailhead Setter Relationship Specialty Start Date End Date Zoran Willams DO [address] [place] [address] PCP - General Family Medicine 01/10/16 03/20/20 documented as of this encounter
--- OUTSIDE RECORDS SUMMARY | 2024-05-13 22:21 | XMS_ITS | Encounter Summary ---
Author Organization [facility] Address [address] [facility] [place] [address] Care Team Providers Care Jawbone Puller Name Role Phone Martha Lawrence MD Primary Care Provider [phone] Encounter Details Date Type Department Care Team (Late st Contact Info) Description 09/18/2020 Orders Only [facility] Standard [address] [place], [place] [phone] Shade Reddy MD [address] [place], [place] [phone] Social History Tobacco Use Types Packs/Day Years [...] have Coronavirus / COVID-19? No / Unsure 09/10/2020 1:28 PM CDT documented as of this encounter Functional Status Functional Status Response Date of Assess ment Is person deaf or have serious hearing difficult y? No 09/06/2020 Is person blind or have serious difficulty seein g? No 09/06/2020 Does person have serious dif ficulty walking/climbing stairs? No 09/06/2020 Does person have difficulty dressing/bathing? No 09/06/2020 Does person have difficulty doing errands alone? No 09/06/2020 Cognitive Status Response Date of Assessm ent Does person have difficulty concentrating/remembering/making decisions? No 09/06/2020 documented as of this encounter Plan of Treatment Upcoming Encounters Date Type Department Care Team (Late st Contact Info) Description 06/07/2024 1:00 PM CHANNEL OPENER OUTSOLES Office Visit [facility] - Ophthalmology [address] [place] [phone] Chrystal Roa MD [address] [place] [address] [place] [phone] 06/23/2024 2:00 PM CHANNEL OPENER OUTSOLES Office Visit [facility] - Ophthalmology [address] [place] [phone] Fidel Moss MD [address] [place] [phone] documented as of this encounter Visit Diagnoses Not on filedocumented in this encounter Care Teams Jawbone Puller Relationship Specialty Start Date End Date Martha Lawrence MD PCP - General 03/21/20 documented as of this encounter
--- OUTSIDE RECORDS SUMMARY | 2024-05-13 22:21 | XMS_ITS | Encounter Summary ---
Author Organization [facility] Address [address] [place] [address] Care Team Providers Care Pan Devulcanizer Name Role Phone Martha Lawrence MD Primary Care Provider Encounter Details Date Type Department Care Team (Late Contact Info) Description 06/24/2020 Orders Only [facility] [address] [place] [phone] Franco Martinez MD [address] [place] [address] DEPT [place] OPHTHALMOLOGY [place], [place] Secondary glaucoma, mild stage, right Social History [...] (Late Contact Info) Description 06/07/2024 1:00 PM ALLOY WEIGHER Office Visit [facility] - Ophthalmology [address] [place] [phone] Chrystal Roa MD [address] [place] [address] [place] [phone] 06/23/2024 2:00 PM ALLOY WEIGHER Office Visit [facility] - Ophthalmology [address] [place] [phone] Fidel Moss MD [facility] [place] [phone] documented as of this encounter Visit Diagnoses Diagnosis Secondary glaucoma, mild stage, right- Primary documented in this encounter Care Teams Pan Devulcanizer Relationship Specialty Start Date End Date Martha Lawrence MD PCP - General 03/21/20 documented as of this encounter
--- OUTSIDE RECORDS SUMMARY | 2024-05-13 22:21 | XMS_ITS | Encounter Summary ---
Author Organization [facility] Health Address [address] [place] [address] Care Team Providers Care Diesel Engine Inspector Name Role Phone Martha Lawrence MD Primary Care Provider [phone] Encounter Details Date Type Department Care Team (Latest Contact Info) Description 09/19/2020 Travel Social History Tobacco Use Types Packs/Day [...] st Contact Info) Description 06/07/2024 1:00 PM TESTER VIBRATOR EQUIPMENT Office Visit [facility] - Ophthalmology [address] [place] [address] [phone] Chrystal Roa MD [address] [place] [address] [place] [phone] 06/23/2024 2:00 PM TESTER VIBRATOR EQUIPMENT Office Visit [facility] - Ophthalmology [address] [place] [phone] Fidel Moss MD [address] [place] [address] [phone] documented as of this encounter Visit Diagnoses Not on filedocumented in this encounter Care Teams Diesel Engine Inspector Relationship Specialty Start Date End Date Martha Lawrence MD PCP - General 03/21/20 documented as of this encounter
--- OUTSIDE RECORDS SUMMARY | 2024-05-13 22:21 | XMS_ITS | Encounter Summary ---
Author Organization [facility] Address [address] [facility] [place] [address] Care Team Providers Care Healthcare Administrative Assistant Name Role Phone Martha Lawrence MD Primary Care Provider [phone] Reason for Visit * Auth/Cert Specialty Diagnoses / Procedures Referred By Joelle lopez Referred To Contact Diagnoses Secondary glaucoma, right, mild stage Secondary glaucoma, mild stage, right Procedures AQUEOUS EYE SHUNT WITH GRAFT Referral ID Status Reason Start Date Expiration Date Visits Re quested Visits Authorized [id number] 1 1 Encounter Details Date Type Department Care Team (Latest Contact Info) Description 09/23/2020 6:06 AM CDT - 09/23/2020 9:44 AM CDT Hospital Encounter [facility] OR VIRGIL/AMB SURGERY [address] [place] [id number] Fidel Moss MD [address] [place] [id number] Surgery General Discharge Disposition: Home or Self Care Social History Tobacco Use Types Packs/Day Years [...] PM CDT documented as of this encounter Last Filed Vital Signs Vital Sign Reading Time Taken Comments Blood Pressure 144/87 09/23/2020 9:30 AM CDT Pulse 94 09/23/2020 9:30 AM CDT Temperature 36.6 ??C (97.8 ??F) 09/23/2020 8:40 AM CD T Respiratory Rate 14 09/23/2020 9:30 AM CDT Oxygen Saturation 98% 09/23/2020 9:30 AM CDT Inhaled Oxygen Concentration - - Weight 112.9 kg (249 lb) 09/23/2020 6:50 AM CDT Height 162.6 cm (5' 4 ) 09/23/2020 6:50 AM CDT Body Mass Index 42.74 09/23/2020 6:50 AM CDT documented in this encounter Functional Status Functional Status Response [...] No 09/23/2020 documented as of this encounter Discharge Summaries * Cherrie Arriola MD - 09/23/2020 9:17 AM CDT Images from the original note were not included. SAME DAY SURGERY DISCHARGE SUMMARY Patient ID: Cesario Jewell [id number] 40 year old 1980 Date of Surgery: 09/23/2020 Procedure performed: Ahmed tube revision right eye (shortening the tube) Discharge Date: 09/23/2020 Discharge Diagnoses: Glaucoma, visual disturbance Discharge Condition: Stable. Doing well. Discharge Medication: Medication List START taking these medications moxifloxacin 0.5 % ophthalmic solution Commonly known as: Vigamox Instill 1 (one) drop into right eye 4 times daily Start taking on: September 24, 2020 xnkpdczh-dykqlyerp-nsgkfqlc ophthalmic ointment Commonly known as: Maxitrol Instill into right eye nightly as needed Start taking on: September 24, 2020 nepafenac 0.1 % ophth suspension Commonly known as: Nevanac Instill 1 drop into right eye 4 times daily Start taking on: September 24, 2020 tobramycin-dexamethasone 0.3-0.1 % ophthalmic suspension Commonly known as: Tobradex Instill 1 (one) drop into right eye 4 times daily Start taking on: September 24, 2020 CONTINUE taking these medications albuterol HFA 108 (90 Base) MCG/ACT inhaler Commonly known as: Proventil;Ventolin;Proair Inhale 2 (two) puffs by mouth every 6 hours as needed for Shortness of Breath or Wheezing Reasons: Asthma amLODIPine 5 MG tablet Commonly known as: Norvasc Take 1 (one) tablet by mouth once daily Reasons: High Blood Pressure Disorder buPROPion XL 24hr 150 MG tablet Commonly known as: Wellbutrin-XL Take 1 (one) tablet by mouth once daily Reasons: Depression escitalopram 20 MG tablet Commonly known as: Lexapro Take 1 (one) tablet by mouth once daily Reasons: Major Depressive Disorder esketamine (14 mg/spray) nasal spray Commonly known as: Spravato [place] 56 (fifty six) mg into the nose Two times a week Reasons: Major Depressive Disorder lamoTRIgine 150 MG tablet Commonly known as: LaMICtal Take 1 (one) tablet by mouth at bedtime Reasons: Mood Disorder metFORMIN 1000 MG tablet Commonly known as: Glucophage Take 1 (one) tablet by mouth daily with breakfast Reasons: Type 2 Diabetes montelukast 10 MG tablet Commonly known as: Singulair Take 2 (two) tablets by mouth at bedtime Reasons: Asthma OLANZapine (disintegrating) 10 MG tablet Commonly known as: ZyPREXA Zydis Take 1 (one) tablet by mouth once daily as needed (Agitation.) Reasons: Mood Disorder omeprazole 20 MG capsule Commonly known as: PriLOSEC traZODone 150 MG tablet Commonly known as: Desyrel Take 150 (one hundred fifty) mg by mouth at bedtime Reasons: Major Depressive Disorder Trulicity 1.5 MG/0.5ML injection Generic drug: dulaglutide Where to Get Your Medications Information about where to get these medications is not yet available Ask your nurse or doctor about these medications ?? moxifloxacin 0.5 % ophthalmic solution ?? yhotqixg-vevgqscbg-flfnqjxk ophthalmic ointment ?? nepafenac 0.1 % ophth suspension ?? tobramycin-dexamethasone 0.3-0.1 % ophthalmic suspension Discharge Procedure Orders Why you were hospitalized Order Specific Question Answer Comments Your discharge diagnosis is: Glaucoma [[id number]] When to call your provider At and ask for the ophthalmology Resident for: Temperature greater than 101 degrees,persistent nausea and vomiting, severe uncontrolled pain, difficulty breathing, headache or visual disturbances, redness, tenderness or signs of infection such as pain, swelling, redness odor or green, yellow discharge around incision site. SHOWER Tomorrow DIET REGULAR As tolerated Follow up with provider Order Specific Question Answer Comments Follow Up Instructions: Tomorrow at 8:30am at [address] [facility] Discharge Instructions Patient Education [facility] Department of Ophthalmology Fidel Moss M.D. Post-Operative Instructions IMMEDIATE POST-OPERATIVE INSTRUCTIONS: Use these drops in the operative eye: Moxifloxacin (andrews cap), Nevanac (sol cap) and Tobradex (white cap): Please do Do 3 more sets of these drops today, and staring tomorrow the drops will be 4x daily. Please wait 5 minutes between eachdrop. Wear the eye shield with a couple pieces of tape while sleeping for the first week. Do not rub eye. Avoid strenuous activity and heavy lifting for the first week Resume your normal diet, but eat lightly. Drink as much fluid as you wish. No alcohol. You should relax after the surgery. You may watch TV, but do not try to read yet. Get plenty of rest. Call with any problems or questions you may have. Pain management: The eye can be somewhat sore for the first week after surgery. This can include a foreign-body sensation, light sensitivity, redness, and tearing. As long as you have no liver disease or bleeding disorders, you may take the following medications (call if you are not sure if you cantake pain pills): Tylenol, or Extra Strength Tylenol: 1-2 tablets every 4-6 hours as needed for pain. Do not exceed the recommended dose on the bottle. Do NOT use any other pain medication unless instructed to do so You should call [phone] IF EMERGENCY. EYE DROP INSTRUCTIONS: As above: Moxifloxacin (andrews cap), Nevanac (sol cap) and Tobradex (white cap): Please do Do 3 more sets of these drops today, and staring tomorrow the drops will be 4x daily. Please wait 5 minutes between eachdrop. It is possible the you will feel a scratchy feeling in the eye(s) after the patch is removed. This is expected and should improve after a week. If the feeling is not tolerable, then you may use over the counter artificial tears or an eye lubricant 4-6 times a day as needed in the eye(s) for comfort ACTIVITY RESTRICTIONS: 24 hours after surgery, wear the shield over the operative eye with a couple pieces of tape at NIGHT TIME ONLY for 1 week and then you no longer need to wear the shield. Do not strain, bend below your waist, lift anything heavier than about 10 pounds (approximately 1 bag of groceries) for 1 week. After one week, we will further evaluate the eye and likely there will be no further activity restrictions. No swimming for 1 week. DO NOT RUB YOUR EYE(S) It is okay to shower/bathe 1 day after surgery. Avoid water/soap directly into the operative eye(s). POSTOPERATIVE EXAMINATIONS: We will need to see you 1 day after surgery, 1 week after surgery, AND 1 month after surgery (Unless instructed otherwise). It is important that you come to you post-operative appointments so that your eye can be assessed toensure there are no problems that could lead to any visual or health problems. In the postoperative period if there is any worsening redness, pain, and/or decrease in vision callthe number listed above. CONTACT US: Call us immediately with any sudden change [...] the weekend, you will need to call [facility] ([phone]), dial [phone] for the central control room operator, and say you are an eye patient and need to speak with the eye doctor seasoner hand. They will contact one of the eye doctors who will call you and address your concerns. Again, our clinic is now located in the [facility]. The address is [address] [place] [id number]. Our clinic is located on the Garden Level. If you are driving, you should park on the BLUE SIDE of the parking garage and proceed to the Garden Level of the [facility]. General Anesthesia WHAT YOU NEED TO KNOW: You will feel tired and sleepy after anesthesia. It may take some time before you feel like you areback to normal. General anesthesia remains in your body for at least 24 hours. DISCHARGE INSTRUCTIONS: Call 911 if: ?? You have trouble breathing. ?? You have any of the following signs of a heart attack: ? Squeezing, pressure, or pain in your chest ? You may also have any of the following: ?? Discomfort or pain in your back, neck, jaw, stomach, or arm ?? Shortness of breath ?? Nausea or vomiting ?? Lightheadedness or a sudden cold sweat ?? Your leg feels warm, tender, and painful. It may look swollen and red. Seek care immediately if: ?? You continue to have nausea and vomiting after 24 hours. ?? Your pain is worse even after medicine. Contact your surgeon if: ?? You have a fever. ?? You develop a rash, hives, itching, or swelling. ?? You have questions or concerns about your condition or care. The first 24 hours after general anesthesia: ?? Rest as much as possible. Have someone stay with you. If you have small children, have someone help to take care of them. ?? Drink plenty of liquids. Do not drink alcohol. General anesthesia can cause you to become dehydrated. Alcohol can make dehydration worse. ?? Eat light meals and snacks. This may help you manage nausea and vomiting. ?? Do not drive. Do not operate mechanical or electrical equipment. ?? Do not make important decisions. An example is signing legal documents. ?? Copyright [employer] 2020 Information is for End User's use only and may not be sold, redistributed or otherwise used for commercial purposes. All illustrations and images included in CareNotes?? are the copyrighted property of [employer] or [employer] The above information is an educational speech language clinician only. It is not intended as medical advice for individual conditions or treatments. Talk to your doctor, nurse or pharmacist before following any medical regimen to see if it is safe and effective for you. Patient Education How to Use Eye Drops WHAT YOU NEED TO KNOW: Eye drops are available with or without a doctor's order. Use them as directed. DISCHARGE INSTRUCTIONS: How to use eye drops: Read the instructions carefully before you use eye drops. Store eye drops at room temperature and away from heat, moisture, and direct light. Do not use the drops if they changecolor or turn cloudy. Do not use the drops if they have small bits floating in them. Wash your hands before and after you put in eye drops. ?? Gently shake the bottle. ?? Do not touch the tip of the bottle to your eye. Germs from your eye can spread to the medicine bottle. ?? Tilt your head back and pull down your lower eyelid with your index finger. ?? Gently squeeze the bottle to drop the correct number of drops into your eye. Wait at least 5 minutes between each drop. ?? Close your eyes. Press your index finger against the inside corner of your eye next to your nosefor 1 minute. ?? If you use more than one kind of drop, wait 10 to 15 minutes before you use the second one. ?? Gently wipe away any extra liquid with a tissue. ?? Replace the cap on the bottle. ?? Do not rub your eyes. Contact your healthcare provider if: ?? You have eye pain or watering. ?? You have changes in your vision. ?? Your eyes are red, swollen, or draining pus. ?? You develop a rash or hives. ?? You have questions or concerns about your condition or care. ?? Copyright [employer] 2020 Information is for End User's use only and may not be sold, redistributed or otherwise used for commercial purposes. All illustrations and images included in CareNotes?? are the copyrighted property of [employer] or [employer] The above information is an educational speech language clinician only. It is not intended as medical advice for individual conditions or treatments. Talk to your doctor, nurse or pharmacist before following any medical regimen to see if it is safe and effective for you. Disposition: home Follow-up: Tomorrow at 8:30am, call if problems. Cherrie Arriola MD 09/23/2020 9:17 AM documented in this encounter Discharge Instructions * Discharge Instructions* Cherrie Arriola MD - 09/23/2020 9:17 AM CDT Images from the original note were not included. Patient Education [facility] Department of Ophthalmology Fidel Moss M.D. Post-Operative Instructions IMMEDIATE POST-OPERATIVE INSTRUCTIONS: Use these drops in the operative eye: Moxifloxacin (andrews cap), Nevanac (sol cap) and Tobradex (white cap): Please do Do 3 more sets of these drops today, and staring tomorrow the drops will be 4x daily. Please wait 5 minutes between eachdrop. Wear the eye shield with a couple pieces of tape while sleeping for the first week. Do not rub eye. Avoid strenuous activity and heavy lifting for the first week Resume your normal diet, but eat lightly. Drink as much fluid as you wish. No alcohol. You should relax after the surgery. You may watch TV, but do not try to read yet. Get plenty of rest. Call with any problems or questions you may have. Pain management: The eye can be somewhat sore for the first week after surgery. This can include a foreign-body sensation, light sensitivity, redness, and tearing. As long as you have no liver disease or bleeding disorders, you may take the following medications (call if you are not sure if you can take pain pills): Tylenol, or Extra Strength Tylenol: 1-2 tablets every 4-6 hours as needed for pain. Do not exceed the recommended dose on the bottle. Do NOT use any other pain medication unless instructed to do so You should call [phone] IF EMERGENCY. EYE DROP INSTRUCTIONS: As above: Moxifloxacin (andrews cap), Nevanac (sol cap) and Tobradex (white cap): Please do Do 3 more sets of these drops today, and staring tomorrow the drops will be 4x daily. Please wait 5 minutes between eachdrop. It is possible the you will feel a scratchy feeling in the eye(s) after the patch is removed. This is expected and should improve after a week. If the feeling is not tolerable, then you may use over the counter artificial tears or an eye lubricant 4-6 times a day as needed in the eye(s) for comfort ACTIVITY RESTRICTIONS: 24 hours after surgery, wear the shield over the operative eye with a couple pieces of tape at NIGHT TIME ONLY for 1 week and then you no longer need to wear the shield. Do not strain, bend below your waist, lift anything heavier than about 10 pounds (approximately 1 bag of groceries) for 1 week. After one week, we will further evaluate the eye and likely there will be no further activity restrictions. No swimming for 1 week. DO NOT RUB YOUR EYE(S) It is okay to shower/bathe 1 day after surgery. Avoid water/soap directly into the operative eye(s). POSTOPERATIVE EXAMINATIONS: We will need to see you 1 day after surgery, 1 week after surgery, AND 1 month after surgery (Unless instructed otherwise). It is important that you come to you post-operative appointments so that your eye can be assessed toensure there are no problems that could lead to any visual or health problems. In the postoperative period if there is any worsening redness, pain, and/or decrease in vision callthe number listed above. CONTACT US: Call us immediately with any sudden change [...] the weekend, you will need to call [facility] ([phone]), dial [phone] for the central control room operator, and say you are an eye patient and need to speak with the eye doctor seasoner hand. They will contact one of the eye doctors who will call you and address your concerns. Again, [facility] The address is [address] [place] [address]. Our clinic is located on the [place]. If you are driving, you should park on the BLUE SIDE of the parking garage and proceed to the [place] of the [facility]. General Anesthesia WHAT YOU NEED TO KNOW: You will feel tired and sleepy after anesthesia. It may take some time before you feel like you areback to normal. General anesthesia remains in your body for at least 24 hours. DISCHARGE INSTRUCTIONS: Call 911 if: ?? You have trouble breathing. ?? You have any of the following signs of a heart attack: ? Squeezing, pressure, or pain in your chest ? You may also have any of the following: ?? Discomfort or pain in your back, neck, jaw, stomach, or arm ?? Shortness of breath ?? Nausea or vomiting ?? Lightheadedness or a sudden cold sweat ?? Your leg feels warm, tender, and painful. It may look swollen and red. Seek care immediately if: ?? You continue to have nausea and vomiting after 24 hours. ?? Your pain is worse even after medicine. Contact your surgeon if: ?? You have a fever. ?? You develop a rash, hives, itching, or swelling. ?? You have questions or concerns about your condition or care. The first 24 hours after general anesthesia: ?? Rest as much as possible. Have someone stay with you. If you have small children, have someone help to take care of them. ?? Drink plenty of liquids. Do not drink alcohol. General anesthesia can cause you to become dehydrated. Alcohol can make dehydration worse. ?? Eat light meals and snacks. This may help you manage nausea and vomiting. ?? Do not drive. Do not operate mechanical or electrical equipment. ?? Do not make important decisions. An example is signing legal documents. ?? Copyright [employer] 2020 Information is for End User's use only and may not be sold, redistributed or otherwise used for commercial purposes. All illustrations and images included in CareNotes?? are the copyrighted property of [employer]. or [employer] The above information is an educational speech language clinician only. It is not intended as medical advice for individual conditions or treatments. Talk to your doctor, nurse or pharmacist before following any medical regimen to see if it is safe and effective for you. Patient Education How to Use Eye Drops WHAT YOU NEED TO KNOW: Eye drops are available with or without a doctor's order. Use them as directed. DISCHARGE INSTRUCTIONS: How to use eye drops: Read the instructions carefully before you use eye drops. Store eye drops at room temperature and away from heat, moisture, and direct light. Do not use the drops if they changecolor or turn cloudy. Do not use the drops if they have small bits floating in them. Wash your hands before and after you put in eye drops. ?? Gently shake the bottle. ?? Do not touch the tip of the bottle to your eye. Germs from your eye can spread to the medicine bottle. ?? Tilt your head back and pull down your lower eyelid with your index finger. ?? Gently squeeze the bottle to drop the correct number of drops into your eye. Wait at least 5 minutes between each drop. ?? Close your eyes. Press your index finger against the inside corner of your eye next to your nosefor 1 minute. ?? If you use more than one kind of drop, wait 10 to 15 minutes before you use the second one. ?? Gently wipe away any extra liquid with a tissue. ?? Replace the cap on the bottle. ?? Do not rub your eyes. Contact your healthcare provider if: ?? You have eye pain or watering. ?? You have changes in your vision. ?? Your eyes are red, swollen, or draining pus. ?? You develop a rash or hives. ?? You have questions or concerns about your condition or care. ?? Copyright [employer] 2020 Information is for End User's use only and may not be sold, redistributed or otherwise used for commercial purposes. All illustrations and images included in CareNotes?? are the copyrighted property of [employer]. or [employer] The above information is an educational speech language clinician only. It is not intended as medical advice for individual conditions or treatments. Talk to your doctor, nurse or pharmacist before following any medical regimen to see if it is safe and effective for you. documented in this encounter Medications at Time of Discharge Medication Sig Dispensed Refills Start Date End Date albuterol HFA (PROVENTIL;VENTOLIN;PROA IR) 108 (90 Base) MCG/ACT inhalerIndications:Asthm a Inhale 2 (two) puffs by mouth every 6 hours as needed for Shortness of Breath or Wheezing Reasons: Asthma 1 Inhaler 1 09/09/2020 amLODIPine (NORVASC) 5 MG tabletIndications:Hypert ension Take 1 (one) tablet by mouth once daily Reasons: High Blood Pressure Disorder 30 tablet 1 09/10/2020 05/23/2021 buPROPion XL 24hr (WELLBUTRIN-XL) 150 MG tabletIndications:Depres patsy Take 1 (one) tablet by mouth once daily Reasons: Depression 30 tablet 1 09/10/2020 12/04/2020 dulaglutide (TRULICITY) 1.5 MG/0.5ML injectionIndications:Typ e 2 Diabetes Mellitus every Wednesday escitalopram (LEXAPRO) 20 MG tabletIndications:Major Depressive Disorder Take 1 (one) tablet by mouth once daily Reasons: Major Depressive Disorder 30 tablet 1 09/09/2020 06/07/2023 esketamine, 14 mg/spray, (SPRAVATO) nasal sprayIndications:Major Depressive Disorder [place] 56 (fifty six) mg into the nose Two times a week Reasons: Major Depressive Disorder 2 Each 5 09/19/2020 10/28/2020 FLOVENT HFA 44 MCG/ACT inhaler 09/23/2020 05/23/2021 lamoTRIgine (LAMICTAL) 150 MG tabletIndications:Mood Disorder Take 1 (one) tablet by mouth at bedtime Reasons: Mood Disorder 30 tablet 1 09/09/2020 05/23/2021 metFORMIN (GLUCOPHAGE) 1000 MG tabletIndications:Type 2 Diabetes Mellitus Take 1 (one) tablet by mouth daily with breakfast Reasons: Type 2 Diabetes 30 tablet 1 09/10/2020 05/23/2021 montelukast (SINGULAIR) 10 MG tabletIndications:Asthma Take 2 (two) tablets by mouth at bedtime Reasons: Asthma 30 tablet 1 09/09/2020 04/03/2022 moxifloxacin (VIGAMOX) 0.5 % ophthalmic solution Instill 1 (one) drop into right eye 4 times daily 3 mL 09/24/2020 10/01/2020 ohbmxtln-ekwtplcnw-ibqwu eth (MAXITROL) ophthalmic ointment Instill into right eye nightly as needed 09/24/2020 10/01/2020 nepafenac (NEVANAC) 0.1 % ophth suspension Instill 1 drop into right eye 4 times daily 09/24/2020 10/01/2020 OLANZapine, disintegrating, (ZYPREXA ZYDIS) 10 MG tabletIndications:Mood Disorder Take 1 (one) tablet by mouth once daily as needed (Agitation.) Reasons: Mood Disorder 30 tablet 1 09/13/2020 10/10/2020 omeprazole (PRILOSEC) 20 MG capsuleIndications:Gastr ic Hypersecretory Conditions as needed 03/05/2020 09/11/2021 tobramycin-dexamethasone (TOBRADEX) 0.3-0.1 % ophthalmic suspension Instill 1 (one) drop into right eye 4 times daily 10 mL 09/24/2020 10/01/2020 traZODone (DESYREL) 150 MG tabletIndications:Major Depressive Disorder Take 150 (one hundred fifty) mg by mouth at bedtime Reasons: Major Depressive Disorder 30 tablet 1 09/09/2020 01/02/2021 documented as of this encounter H&P Notes * Fidel Moss MD - 09/23/2020 7:10 AM CDT Date: 09/23/2020 Patient ID: Name: Cesario Jewell Age: [id number] year old : 1980 Present Illness: Cesario Jewell is a 40 year old female who presents for Ahmed tube revision right eye (shortening the tube). ROS: Patient has persistent visual disturbance. Medications: Current Facility-Administered Medications Medication Dose Route Frequency Provider Last Rate Last Admin 0.9% NaCl injection 3 mL 3 mL Intracatheter q8h Cherrie Arriola MD And 0.9% NaCl injection 1-10 mL 1-10 mL Intracatheter PRN Cherrie Arriola MD cyclopentolate (Cyclogyl) 2% ophthalmic solution 1 drop Right Eye pre-OP Cherrie Bagley MD lactated ringers infusion Intravenous Continuous Cherrie Arriola MD phenylephrine (Mydfrin) 2.5% ophthalmic solution 1 drop Right Eye pre-OP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
--- OUTSIDE RECORDS SUMMARY | 2024-05-13 22:21 | XMS_ITS | Encounter Summary ---
Author Organization [facility] Address [address] [place] [address] Care Team Providers Care [place] Miner Name Role Phone Martha Lawrence MD Primary Care Provider Reason for Visit * Reason Comments Refill Request Encounter Details Date Type Department Care Team ([facility] Contact Info) Description 06/10/2020 Refill [facility] [address] [place] [phone] Cherrie Arriola MD [address] [place] [address] DEPT OF OPHTHALMOLOGY [place], [place] Refill Request Social History Tobacco Use Types Packs/Day Years [...] Upcoming Encounters Date Type Department Care Team ([facility] Contact Info) Description 06/07/2024 1:00 PM 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 Office Visit [facility] - Ophthalmology [address] [place] [phone] Chrystal Roa MD [address] [place] [address] DE[place] [phone] 06/23/2024 2:00 PM 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 Office Visit [facility] - Ophthalmology [address] [place] [phone] Fidel Moss MD [address] [place] [phone] documented as of this encounter Visit Diagnoses Not on filedocumented in this encounter Care Teams [place] Miner Relationship Specialty Start Date End Date Martha Lawrence MD PCP - General 03/21/20 documented as of this encounter
--- OUTSIDE RECORDS SUMMARY | 2024-05-13 22:21 | XMS_ITS | Encounter Summary ---
Author Organization [facility] [employer] Address [address] [facility] [place] [address] Care Team Providers Care Dialysis Nurse Name Role Phone Martha Lawrence MD Primary Care Provider [phone] Reason for Visit * Auth/Cert Specialty Diagnoses / Procedures Referred By Joelle lopez Referred To Contact Diagnoses Symptomatic posterior vitreous detachment of right eye Symptomatic posterior vitreous detachment of right eye Procedures VITRECTOMY MECHANICAL PARS PLANA Referral ID Status Reason Start Date Expiration Date Visits Re quested Visits Authorized [id number] 1 1 Encounter Details Date Type Department Care Team (Late st Contact Info) Description 04/18/2020 7:45 AM [facility] OPERATOR - 04/18/2020 9:21 AM [facility] OPERATOR Surgery [facility] OR VIRGIL/AMB SURGERY [address] [place] [address] Chrystal Roa MD [address] [facility] [place] [phone] pars plana vitrectomy of the right eye Surgery Details Date/Time Status Location OR Service Patient Class Case Class Case Type Trauma Case? 04/18/2020 7:45 AM Posted [facility] VIRGIL OR VIRGIL OR 01 Ophthalmology Surgery Day Care Panel 1 Procedure LRB Anes Op Region Wound Class Comments pars plana vitrectomy of the right eye Right General with Block Eye Clean Surgeon Surgeon Role Service Panel Chrystal Roa MD Primary Ophthalmology 1 Gavin Tamez MD Resident - Assisting Ophthalmolog y 1 Special Needs Supine documented in this encounter Social History Tobacco [...] Sign Reading Time Taken Comments Blood Pressure 133/76 04/18/2020 6:42 AM [facility] OPERATOR Pulse 80 04/18/2020 6:42 AM [facility] OPERATOR Temperature - - Respiratory Rate 12 04/18/2020 6:42 AM [facility] OPERATOR Oxygen Saturation - - Inhaled Oxygen Concentration - - Weight 102.1 kg (225 lb) 04/18/2020 6:35 AM [facility] OPERATOR Height 167.6 cm (5' 6 ) 04/18/2020 6:35 AM [facility] OPERATOR Body Mass Index 36.32 04/18/2020 6:35 AM [facility] OPERATOR documented in this encounter Discharge Summaries * Gavin Tamez MD - 04/18/2020 9:28 AM CST SAME DAY SURGERY DISCHARGE SUMMARY Patient ID: Cesario Jewell [id number] 40 year old 1980 Date of Surgery: 04/18/2020 Procedure performed: pars plana vitrectomy of the right eye, Right - Eye Discharge Date: 04/18/2020 Post-op Diagnosis: * Symptomatic posterior vitreous detachment of right eye [H43.811] Discharge Condition: Stable. Doing well. Discharge Medication: Medication List START taking these medications cyclopentolate 2% 2 % ophthalmic solution Commonly known as: CYCLOGYL Instill 1 drop into right eye 2 times daily Start taking on: April 19, 2020 moxifloxacin 0.5 % ophthalmic solution Commonly known as: VIGAMOX Instill 1 drop into right eye 4 times daily Start taking on: April 19, 2020 prednisoLONE acetate 1 % ophthalmic suspension Commonly known as: PRED FORTE Instill 1 drop into right eye 4 times daily Start taking on: April 19, 2020 tobramycin-dexamethasone 0.3-0.1 % ophthalmic ointment Commonly known as: TOBRADEX Instill into right eye at bedtime Start taking on: April 19, 2020 CONTINUE taking these medications albuterol HFA 108 (90 Base) MCG/ACT inhaler Commonly known as: PROVENTIL;VENTOLIN;PROAIR buPROPion XL 24hr 150 MG tablet Commonly known as: WELLBUTRIN-XL Cholecalciferol 125 MCG (5000 UT) escitalopram 20 MG tablet Commonly known as: LEXAPRO lamoTRIgine 25 MG tablet Commonly known as: LaMICtal LORazepam 0.5 MG tablet Commonly known as: ATIVAN metFORMIN ER 24hr 500 MG tablet Commonly known as: GLUCOPHAGE XR montelukast 10 MG tablet Commonly known as: SINGULAIR omeprazole 20 MG capsule Commonly known as: PriLOSEC spironolactone 100 MG tablet Commonly known as: ALDACTONE traZODone 150 MG tablet Commonly known as: DESYREL STOP taking these medications ALPHAGAN P 0.1 % ophthalmic solution Generic drug: brimonidine 0.1 % dorzolamide 2 % ophthalmic solution Commonly known as: TRUSOPT latanoprost 0.005 % ophthalmic solution Commonly known as: XALATAN Where to Get Your Medications Information about where to get these medications is not yet available Ask your nurse or doctor about these medications ?? cyclopentolate 2% 2 % ophthalmic solution ?? moxifloxacin 0.5 % ophthalmic solution ?? prednisoLONE acetate 1 % ophthalmic suspension ?? tobramycin-dexamethasone 0.3-0.1 % ophthalmic ointment Discharge Procedure Orders Why you were hospitalized Order Specific Question Answer Comments Your discharge diagnosis is: Symptomatic posterior vitreous detachment of right eye [[id number]] Eye medications Always wait five minutes between eye medications. Discharge Instructions [facility] Department of Ophthalmology Chrystal Roa M.D. IMMEDIATE POST-OPERATIVE INSTRUCTIONS: Keep patch and/or shield on overnight. We will remove it tomorrow in clinic. Your appointment is at 9AM tomorrow and will be at our clinic in [facility], not in the building where you had your surgery today. Resume your normal diet, but eat lightly. [...] other pain medication unless instructed to do so. EYE DROP INSTRUCTIONS: There is no need to start the eyedrops until after your appointment tomorrow. Bring all drops provided to you to clinic tomorrow. It is possible the you will feel [...] tape at NIGHT TIME ONLY for 1 week, and then you no longer need to wear the shield. Do not strain, bend below your waist, or lift anything heavier than about 10 pounds (approximately 1 bag of groceries) for 1 week. No swimming for 1 week. DO NOT RUB YOUR EYE(S) It is okay to shower/bathe 1 day after surgery. Avoid water/soap directly into the operative eye(s). POSTOPERATIVE EXAMINATIONS: It is important that you come to your post-operative appointments so that your eye can be assessed to ensure there are no problems that could lead to any visual or health problems. In the postoperative period, if there is any worsening redness, pain, and/or decrease in vision, please call the number listed below. Call us immediately with any sudden change [...] weekend, you will need to call [facility] ([phone]), dial [phone] for the clasp machine operator, and say you are an eye patient and need to speak with the eye doctor urban design consultant. They will contact one of the eye doctors who will call you and address your concerns. Again, our clinic is now located in the [facility]. The address is [address] [place] [address]. Our clinic is located on the Garden Level. If you are driving, you should park on the BLUE SIDE of the parking garage and proceed to the Garden Level of the [facility]. Disposition: home Follow-up: tomorrow 9AM, call if problems. Gavin Tamez MD Ophthalmology Resident 04/18/2020 9:35 AM [facility] OPERATOR documented in this encounter Discharge Instructions * Discharge Instructions* Mirtha Mandujano RN - 04/18/2020 10:01 AM [facility] OPERATOR Images from the original note were not included. [facility] Department of Ophthalmology Chrystal Roa M.D. IMMEDIATE POST-OPERATIVE INSTRUCTIONS: Keep patch and/or shield on overnight. We will remove it tomorrow in clinic. Your appointment is at 9AM tomorrow and will be at our clinic in the [facility], not in the building where you had your surgery today. Resume your normal diet, but eat lightly. [...] other pain medication unless instructed to do so. EYE DROP INSTRUCTIONS: There is no need to start the eyedrops until after your appointment tomorrow. Bring all drops provided to you to clinic tomorrow. It is possible the you will feel [...] tape at NIGHT TIME ONLY for 1 week, and then you no longer need to wear the shield. Do not strain, bend below your waist, or lift anything heavier than about 10 pounds (approximately 1 bag of groceries) for 1 week. No swimming for 1 week. DO NOT RUB YOUR EYE(S) It is okay to shower/bathe 1 day after surgery. Avoid water/soap directly into the operative eye(s). POSTOPERATIVE EXAMINATIONS: It is important that you come to your post-operative appointments so that your eye can be assessed to ensure there are no problems that could lead to any visual or health problems. In the postoperative period, if there is any worsening redness, pain, and/or decrease in vision, please call the number listed below. Call us immediately with any sudden change [...] weekend, you will need to call [facility] ([phone]), dial [phone] for the clasp machine operator, and say you are an eye patient and need to speak with the eye doctor urban design consultant. They will contact one of the eye doctors who will call you and address your concerns. Again, our clinic is now located in the [facility]. The address is [address] [place] [address]. Our clinic is located on the Garden [place]. If you are driving, you should park on the BLUE SIDE of the parking garage and proceed to the Garden Level of the [facility]. Patient Education How to Use Eye Drops WHAT YOU NEED TO KNOW: How do I use eye drops properly? Read the instructions carefully before you use eye drops. Store eye drops at room temperature and away from heat, moisture, and direct light. Do not use the drops if they change color or turn cloudy. Do not use the [...] bottle. ?? Do not rub your eyes. When should I contact my healthcare provider? ?? You have eye pain or watering. ?? You have changes in your vision. ?? Your eyes are red, swollen, or draining pus. ?? You develop a rash or hives. ?? You have questions or concerns about your condition or care. CARE AGREEMENT: You have the right to help plan your care. Learn about your health condition and how it may be treated. Discuss treatment options with your healthcare providers to decide what care you want to receive. You always have the right to refuse treatment. The above information is an educational aide only. It is not intended as medical advice for individual conditions or treatments. Talk to your doctor, nurse or pharmacist before following any medical regimen to see if it is safe and effective for you. ?? Copyright [employer] 2019 Information is for End User's use only and may not be sold, redistributed or otherwise used for commercial purposes. All illustrations and images included in CareNotes?? are the copyrighted property of [employer] or [employer] [facility] OPERATOR documented in this encounter Medications at Time of Discharge Medication Sig Dispensed Refills Start Date End Date albuterol HFA (PROVENTIL;VENTOLIN;PROAIR ) 108 (90 Base) MCG/ACT inhaler INHALE 2 PUFFS BY MOUTH EVERY 4 6 HOURS NEEDED FOR SHORT OF BREATH 09/13/2019 09/09/2020 buPROPion XL 24hr (WELLBUTRIN-XL) 150 MG tablet TAKE 1 TABLET BY MOUTH EVERY DAY IN THE MORNING 02/17/2020 09/09/2020 Cholecalciferol 125 MCG (5000 UT) Vitamin D3 125 mcg (5,000 unit) tablet TAKE 1 TABLET BY MOUTH EVERY DAY IN THE MORNING 09/06/2020 cyclopentolate 2% (CYCLOGYL) 2 % ophthalmic solution Instill 1 drop into right eye 2 times daily 04/19/2020 07/26/2020 escitalopram (LEXAPRO) 20 MG tablet Take 20 mg by mouth once daily 02/02/2020 09/09/2020 lamoTRIgine (LAMICTAL) 100 MG tablet Take 150 mg by mouth once daily 04/10/2020 09/06/2020 lamoTRIgine (LAMICTAL) 25 MG tablet TAKE 2 TABLETS BY MOUTH EVERY DAY AT BEDTIME 11/27/2019 09/06/2020 LORazepam (ATIVAN) 0.5 MG tablet 03/21/2020 09/06/2020 metFORMIN ER 24hr (GLUCOPHAGE XR) 500 MG tablet 1,000 mg every morning 11/27/2019 09/09/2020 montelukast (SINGULAIR) 10 MG tablet Take 10 mg by mouth at bedtime 10/31/2019 09/09/2020 moxifloxacin (VIGAMOX) 0.5 % ophthalmic solution Instill 1 drop into right eye 4 times daily 04/19/2020 04/23/2020 omeprazole (PRILOSEC) 20 MG capsuleIndications:Gastric Hypersecretory Conditions as needed 03/05/2020 prednisoLONE acetate (PRED FORTE) 1 % ophthalmic suspension Instill 1 drop into right eye 4 times daily 04/19/2020 04/23/2020 spironolactone (ALDACTONE) 100 MG tablet TAKE 1 TABLET BY MOUTH EVERY DAY IN THE MORNING 01/07/2020 09/09/2020 tobramycin-dexamethasone (TOBRADEX) 0.3-0.1 % ophthalmic ointment Instill into right eye at bedtime 04/19/2020 07/26/2020 traZODone (DESYREL) 150 MG tablet Take 150 mg by mouth at bedtime 02/02/2020 09/09/2020 documented as of this encounter H&P Notes * Gavin Tamez MD - 04/18/2020 6:09 AM CST Date of admission: 04/18/2020 Patient ID: Cesario Jewell [id number] 40 year old 1980 Present Illness: Cesario Jewell is a 40 year old female who presents for 25 Gauge pars plana vitrectomy, possible endolaser, and possible air fluid exchange of the right eye Medications: Current Facility-Administered Medications Medication Dose Route Frequency Provider Last Rate Last Admin ??? 0.9% NaCl injection 3 mL 3 mL Intracatheter q8h Gavin Tamez MD And ??? 0.9% NaCl injection 1-10 mL 1-10 mL Intracatheter PRN Gavin Tamez MD ??? lactated ringers infusion Intravenous Continuous Gavin Tamez MD 75 mL/hr at 04/18/20 39351,000 mL at 04/18/20 0649 Allergies: Penicillins, Sulfacetamide, and Oxycodone-acetaminophen Past surgical history: Past Surgical History: Procedure Laterality Date ??? Cataract Removal Right ??? 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 LASER (YAG) CAPSULOTOMY Right ??? Myomectomy ??? MYRINGOTOMY WITH TUBE INSERTION ??? Tonsillectomy and Adenoidectomy Past medical history: Past Medical History: Diagnosis Date ??? Anxiety [...] family history: No family history on file. Physical Exam: BP 133/76 Pulse 80 Resp 12 Ht 5' 6 (1.676 m) Wt 225 lb (102.1 kg) BMI 36.32 kg/m2 General appearance: Normal, appears stated age Head: Normal, atraumatic Eyes: PVD, right eye Lungs: Non-labored breathing Heart: No cyanosis Abdomen: Soft Neurologic: Grossly normal Assessment: Posterior vitreous detachment, right eye Plan: Risks, benefits, and alternatives of the above procedure in right eye were discussed. These includebut are not limited to infection, bleeding, damage to the eye or surrounding structures, loss of vision, loss of the eye, persistent inflammation, corneal edema, corneal decompensation, glaucoma, retinal detachment, macular edema, pain, ptosis, diplopia, possible need to do another procedure in thefuture, risks of high or low intraocular pressure, failure of surgery, and risk of from anesthesia complications. Gavin Tamez MD Ophthalmology 04/18/2020 7:39 AM [facility] OPERATOR Associated attestation - Chrystal Roa MD - 04/18/2020 7:50 AM [facility] OPERATOR I have personally seen the patient in pre-op area. There is no interval change in H&P from lastexam. I discussed the surgery and risks and benefits with the patient one more time. She wishes to proceed with the surgery as above. Chrystal Roa MD Attending, Retina and Uveitis service Date of service 04/18/2020 7:49 AM documented in this encounter OR Notes * Brief Op Note - Chrystal Roa MD - 04/18/2020 8:14 AM CST Brief Op Note Procedure: Pars plana vitrectomy of the right eye Patient Name: Cesario Jewell Date of Service: 04/18/2020 Pre-Op Diagnosis: Visually significant vitreous opacities, right eye Post-Op Diagnosis: Same Surgeon(s) and Role: * Chrystal Roa MD - Primary * Gavin Tamez MD - Resident - Assisting Nuclear Technician(s): Gavin Tamez MD Anesthesia Type: general LMA Complications: none Findings: Same EBL: minimal Specimen(s): none Gavin Tamez MD [facility] OPERATOR * Operative - Chrystal Roa MD - 04/18/2020 8:14 AM CST PREOPERATIVE DIAGNOSIS Visually significant vitreous opacities, Right Eye POSTOPERATIVE DIAGNOSIS Same PROCEDURE PERFORMED 25 G pars plana vitrectomy, Right Eye SURGEON Chrystal Roa M.D. ROOM SERVICE MANAGER Gavin Tamez M.D. INDICATIONS FOR SURGERY Visually significant vitreous opacities interfering with daily activities, Right Eye( monocular patient) The risks, benefits, and alternatives of surgery were discussed with the patient at length including the risks of infection, bleeding, loss of vision, loss of the eye, risk of retinal detachment, guerita potential need for reoperation. The patient agreed to undergo surgery. DESCRIPTION OF PROCEDURE On the day of surgery, the patient was met in the preoperative area, where again the surgery was discussed with them and all their questions were answered satisfactorily. The patient was then broughtto the operating room where general anesthesia was induced satisfactorily. The eye was prepped and draped in the usual sterile ophthalmic fashion including the use of 10% Betadine on the skin, lids, and lashes and 5% Betadine on the ocular surface. A lid speculum was placed in the eye. A time-out was taken to ensure the correct patient and eye were being operated on. A 25-gauge trocar was used to insert a cannula 3 mm from the limbus in the inferotemporal quadrant in a beveled manner. The infusion was turned on and off to ensure proper flow and then placed withinthis cannula. It was visualized within the vitreous cavity and then turned on to 30 mmHg BSS. Superonasal and superotemporal cannulas were placed in a similar fashion. An anterior vitrectomy was performed. The ReSight lens was then used to visualize the remainder of the posterior segment. There was syneretic vitreous with heavy pigmentation. A core vitrectomy was performed. Triamcinolone acetonide was injected in a 1:4 dilution with BSS to verify a complete PVD was present and indeed there was no vitreous attached. The peripheral vitreous skirt was trimmed 360 degrees under scleral depression, no peripheral retinal defect was noted to be present. The superonasal trocar was removed and sutured with 9-0 Vicryl in 3-1-1 fashion.The superotemporal trocar was then sutured in a similar fashion. The infusion was turned off and rmoved and the final sclerotomy was sutured in a similar fashion. Pressure was checked which was low. Sterile BSS was injected using a 30 g needle into anterior chamber from superior limbus and pressure was normalized to physiologic level. At this point, the goals of the case had been achieved. The retina was attached, there was BSS in the eye, the eye was holding a normal pressure, and all the incisions were closed. Subconjunctival injections of cefazolin and dexamethasone were administered. The eyelid speculum was removed. Predforte, vigamox, cyclogyl, and Tobradex ointment were instilled in the eye. The eye was patched and shielded. The patient tolerated the procedure well, and was discharged to the PACU in stable condition. I was the attending surgeon, and present and scrubbed for the entire case, and performed the entireprocedure. ESTIMATED BLOOD LOSS None. COMPLICATIONS None. FINDINGS significant vitreous opacities IMPLANTS None. SPECIMENS None. Chrystal Roa MD Attending, Retina and Uveitis service Date of service 04/18/2020 [facility] OPERATOR documented in this encounter Plan of Treatment Upcoming Encounters Date Type Department Care Team (Late st Contact Info) Description 06/07/2024 1:00 PM [facility]ATIONS [facility] OPERATOR Office Visit [facility] - Ophthalmology [address] [place] [phone] Chrystal Roa MD [address] [place] [address] [place] [phone] 06/23/2024 2:00 PM [facility] OPERATOR [facility] [address] [place] [phone] Fidel Moss MD [address] [place] [phone] documented as of this encounter Procedures Procedure Name Priority Date/Time Associated Diagnosis Comments VITRECTOMY MECHANICAL PARS PLANA 04/18/2020 8:14 AM [facility] OPERATOR Symptomatic posterior vitreous detachment of right eye Special Needs Supine HCG URINE QUAL POCT NOTIFICATION STAT 04/18/2020 6:29 AM [facility] OPERATOR Pre-op testing HCG URINE QUALITATIVE - POCT (IP) INTERFACED Routine 04/18/2020 6:26 AM [facility]ATIONS C[facility] OPERATOR documented in this encounter Results * HCG URINE QUAL POCT NOTIFICATION (04/18/2020 6:29 AM SEC[facility]ATIONS [facility] OPERATOR) Comment Notification Label Only - See Separate Report 04/18/2020 8:01 AM SEC[facility]PERATIONS C[facility] OPERATOR [facility] Urine URINE / Unknown 04/18/2020 6 :29 AM [facility] OPERATOR 04/18/2020 6:30 AM SECUR[facility]PERATIONS [facility] OPERATOR Chrystal Roa MD LAB - URINALYSIS ORD ERABLES [address] [address], [facility] [phone] * HCG URINE QUALITATIVE - POCT (IP) INTERFACED (04/18/2020 6:26 AM SEC[facility]ATIONS [facility] OPERATOR) HCG Qual Urine Negative Negative 04/18/2020 6:33 AM [facility] OPERATOR [facility] Urine URINE / Unknown 04/18/2020 6 :26 AM [facility] OPERATOR 04/18/2020 6:33 AM [facility] OPERATOR Chrystal Roa MD LAB - POINT OF CARE ORDERABLES Performing Organization Address City/[facility]/ZIP Co de Phone Number [address] [address], [place] [phone] documented in this encounter Visit Diagnoses Diagnosis Pre-op testing- Primary Preoperative examination, unspecified Symptomatic posterior vitreous detachment of right eye documented in this encounter Administered Medications Inactive Administered Medications - up to 3 most recent administrations Medication Order MAR Action Action Date Dose Rate Site 0.9% NaCl injection 1-10 mL 1-10 mL, Intracatheter, PRN, Other, peripheral line flush, Starting on Coleen 04/18/20 at 0628, Until Coleen 04/18/20 at 1122, Flush peripheral IV catheter with 1-10 mL of normal saline before and after medications and prn to clear blood from the line or to verify patency., Pre-op 0.9% NaCl injection 3 mL 3 mL, Intracatheter, EVERY 8 HOURS, First dose on Coleen 04/18/20 at 0630, Until Discontinued, Flush peripheral IV catheter with 3 mL of normal saline every 8 hours., Pre-op acetaminophen (TYLENOL) tablet 650 mg 650 mg, Oral, EVERY 4 HOURS PRN, Mild Pain, Moderate Pain, Starting on Coleen 04/18/20 at 0942, Until [place]en 04/18/20 at 1122, Post-op $ Given 04/18/2020 9:46 AM [facility] OPERATOR 650 mg bss PLUS ophthalmic solution PRN, Starting on Coleen 04/18/20 at 0854, Until [place]en 04/18/20 at 0925, Intra-op $ Given 04/18/2020 8:54 AM [facility] OPERATOR 500 mL Right Eye cyclopentolate (CYCLOGYL) 2% ophthalmic solution 1 drop, Right Eye, PRE-OP MULTIPLE, 3 doses, Starting on Coleen 04/18/20 at 0628, Until [place]en 04/18/20 at 0648, Pre-op $ Given 04/18/2020 6:48 AM [facility] OPERATOR 1 drop Right Eye $ Given 04/18/2020 6:43 AM [facility] OPERATOR 1 drop Ri ght Eye $ Given 04/18/2020 6:37 AM [facility] OPERATOR 1 drop Ri ght Eye cyclopentolate (CYCLOGYL) 2% ophthalmic solution PRN, Starting on Coleen 04/18/20 at 0911, Until [place]en 04/18/20 at 0925, Intra-op $ Given 04/18/2020 9:11 AM [facility] OPERATOR 1 drop Right Eye dexamethasone (DECADRON) injection PRN, Starting on [place]en 04/18/20 at 0911, Until [place]en 04/18/20 at 0925, Intra-op $ Given 04/18/2020 9:11 AM [facility] OPERATOR 1.6 mg Right Eye gentamicin (GARAMYCIN) injection PRN, Starting on Coleen 04/18/20 at 0909, Until [place]en 04/18/20 at 0925, Intra-op $ Given 04/18/2020 9:09 AM [facility] OPERATOR 16 mg Right Eye hydroxypropyl methylcellulose (OCUCOAT) 2 % ophthalmic solution PRN, Starting on Coleen 04/18/20 at 0850, Until [place]en 04/18/20 at 0925, Intra-op $ Given 04/18/2020 8:50 AM [facility] OPERATOR 1 mL Right Eye lactated ringers infusion at 75 mL/hr, Intravenous, CONTINUOUS, Starting on Coleen 04/18/20 at 0630, Until [place]en 04/18/20 at 1122, Pre-op $ New Bag/Syringe 04/18/2020 6:49 AM [facility] OPERATOR 1,000 mL 75 mL/hr Right Hand moxifloxacin (VIGAMOX) 0.5% ophthalmic solution PRN, Starting on [place]en 04/18/20 at 0911, Until [place] 04/18/20 at 0925, Intra-op $ Given 04/18/2020 9:11 AM SECURITY OPERATIONS CENTER OPERATOR 1 drop phenylephrine (MYDFRIN) 2.5% ophthalmic solution 1 drop, Right Eye, PRE-OP MULTIPLE, 3 doses, Starting on [place] 04/18/20 at 0628, Until [place] 04/18/20 at 0648, Pre-op $ Given 04/18/2020 6:48 AM SECURITY OPERATIONS C[facility] OPERATOR 1 drop Right Eye $ Given 04/18/2020 6:43 AM SECURITY OPERATIONS CENTER OPERATOR 1 drop Ri ght Eye $ Given 04/18/2020 6:37 AM SECURITY OPERATIONS CENTER OPERATOR 1 drop Ri ght Eye prednisoLONE acetate (PRED FORTE) 1 % ophthalmic suspension PRN, Starting on [place] 04/18/20 at 0912, Until [place] 04/18/20 at 0925, Intra-op $ Given 04/18/2020 9:12 AM SECURITY OPERATIONS CENTER OPERATOR 1 drop Rig ht Eye proparacaine (ALCAINE) ophthalmic solution 1 drop 1 drop, Right Eye, PRE-OP ONCE, 1 dose, On [place] 04/18/20 at 0630, Pre-op $ Given 04/18/2020 6:38 AM SECURITY OPERATIONS CENTER OPERATOR 1 drop Right Eye tobramycin-dexamethasone (TOBRADEX) ophthalmic ointment PRN, Starting on [place] 04/18/20 at 0912, Until [place] 04/18/20 at 0925, Intra-op $ Given 04/18/2020 9:12 AM [facility]URITY OPERATIONS CENTER OPERATOR 0.5 inches Rig ht Eye triamcinolone acetonide (KENALOG-40) injection PRN, Starting on [place] 04/18/20 at 0855, Until [place] 04/18/20 at 0925, Intra-op $ Given 04/18/2020 8:55 AM SECURITY [facility]PERATIONS C[facility] OPERATOR 0.1 mL Rig ht Eye tropicamide (MYDRIACYL) 1% ophthalmic solution 1 drop, Right Eye, PRE-OP MULTIPLE, 3 doses, Starting on [place] 04/18/20 at 0628, Until [place] 04/18/20 at 0648, Pre-op $ Given 04/18/2020 6:48 AM [facility]PERATIONS C[facility] OPERATOR 1 drop Right Eye $ Given 04/18/2020 6:43 AM SECURITY [facility]PERATIONS C[facility] OPERATOR 1 drop Ri ght Eye $ Given 04/18/2020 6:38 AM SECURITY [facility]PERATIONS C[facility] OPERATOR 1 drop Ri ght Eye documented in this encounter Active and Recently Administered Medications Times are shown in SECURITY OPERATIONS CENTER OPERATOR. Scheduled Medication Order 04/16/2020 04/17/2020 04/18/2020 0.9% NaCl injection 3 mL(Linked Group 1) 3 mL, Intracatheter, EVERY 8 HOURS, First dose on [place] 04/18/20 at 0630, Until Discontinued, Flush peripheral IV catheter with 3 mL of normal saline every 8 hours., Pre-op 0630 (Due) cyclopentolate (CYCLOGYL) 2% ophthalmic solution (COMPLETED) 1 drop, Right Eye, PRE-OP MULTIPLE, 3 doses, Starting on [place]en 12 at 0628, Until [place] 12 at 0648, Pre-op 0637 ($ Given - Prov ider: Gypsy Santos RN)0643 ($ Given - Provider: Gypsy Santos, SANJANA)0648 ($ Given - Provider: Gypsy Santos, SANJANA) naloxone (NARCAN) injection 0.04 mg 0.04 mg, Intravenous, POST-OP MULTIPLE, Starting on [place] 04/18/20 at 0942, Until [place] 12 at 1122, Notify physician immediately, and mix 0.4 mg Naloxone in 9 mL Normal Saline for slow IV push. Administer dilute Naloxone solution IV very slowly (1 mL over 30 seconds) while observing the patient response and titrating to effect. If no response, call Rapid Response, continue IV Naloxone at the same rate up to a total of 0.8 mg of diluted Naloxone., PACU phenylephrine (MYDFRIN) 2.5% ophthalmic solution (COMPLETED) 1 drop, Right Eye, PRE-OP MULTIPLE, 3 doses, Starting on [place] 12/10/20 at 0628, Until [place] 12/20 at 0648, Pre-op 0637 ($ Given - Prov ider: Gypsy Santos, SANJANA)0643 ($ Given - Provider: Gypsy Santos RN)0648 ($ Given - Provider: Gypsy Santos, SANJANA) proparacaine (ALCAINE) ophthalmic solution 1 drop (COMPLETED) 1 drop, Right Eye, PRE-OP ONCE, 1 dose, On [place] 1220 at 0630, Pre-op 0638 ($ Given - Prov ider: Gypsy Santos RN) tropicamide (MYDRIACYL) 1% ophthalmic solution (COMPLETED) 1 drop, Right Eye, PRE-OP MULTIPLE, 3 doses, Starting on [place] 1220 at 0628, Until [place] 12 at 0648, Pre-op 0638 ($ Given - Prov ider: Gypsy Santos RN)0643 ($ Given - Provider: Gypsy Santos, SANJANA)0648 ($ Given - Provider: Gypsy Santos, SANJANA) Continuous Medication Order 04/16/2020 04/17/2020 04/18/2020 lactated ringers infusion at 75 mL/hr, Intravenous, CONTINUOUS, Starting on [place]en 12 at 0630, Until [place] 12 at 1122, Pre-op 0649 ($ New Bag/Syri nge - Provider: Gypsy Santos, SANJANA) PRN Medication Order 04/16/2020 04/17/2020 04/18/2020 0.9% NaCl injection 1-10 mL(Linked Group 1) 1-10 mL, Intracatheter, PRN, Other, peripheral line flush, Starting on [place]en 12 at 0628, Until [place] 12 at 1122, Flush peripheral IV catheter with 1-10 mL of normal saline before and after medications and prn to clear blood from the line or to verify patency., Pre-op acetaminophen (TYLENOL) tablet 650 mg 650 mg, Oral, EVERY 4 HOURS PRN, Mild Pain, Moderate Pain, Starting on [place] 12/10/20 at 0942, Until [place] 12/20 at 1122, Post-op 0946 ($ Given - Prov ider: Mirtha Mandujano RN) bss PLUS ophthalmic solution (CANCELED) PRN, Starting on [place] 12/10/20 at 0854, Until [place] 12//20 at 0925, Intra-op 0854 ($ Given - Prov ider: Chrystal Roa MD) cyclopentolate (CYCLOGYL) 2% ophthalmic solution (CANCELED) PRN, Starting on [place] 1220 at 0911, Until [place] 12//20 at 0925, Intra-op 0911 ($ Given - Prov ider: Chrystal Roa MD) dexamethasone (DECADRON) injection (CANCELED) PRN, Starting on [place] 12//20 at 0911, Until [place] 12//20 at 0925, Intra-op 0911 ($ Given - Prov ider: Chrystal Roa MD - Comment: intraocular injection) diphenhydrAMINE (BENADRYL) injection 25 mg 25 mg, Intravenous, ONCE PRN, Nausea/Vomiting, 1 dose, Starting on [place] 12/20 at 0942, Until [place] 1220 at 1122, Third choice, use if first and second choice was ineffective., PACU fentaNYL (PF) (SUBLIMAZE) injection 25 mcg 25 mcg, Intravenous, EVERY 10 MIN PRN, Mild Pain, 4 doses, Starting on [place] 12/20 at 0942, Until [place] 1220 at 1122, Maximum total of 4 doses. If patient reaches max total dose, please consult anesthesiologist prior to further administration of pain meds. Hold pain meds if there are signs of hypoventilation., PACU fentaNYL (PF) (SUBLIMAZE) injection 50 mcg 50 mcg, Intravenous, EVERY 10 MIN PRN, Moderate Pain, 4 doses, Starting on [place] 12/10/20 at 0942, Until [place] 12/20 at 1122, Maximum total of 4 doses. If patient reaches max total dose, please consult anesthesiologist prior to further administration of pain meds. Hold pain meds if there are signs of hypoventilation., PACU gentamicin (GARAMYCIN) injection (CANCELED) PRN, Starting on [place] 1220 at 0909, Until [place] 1220 at 0925, Intra-op 0909 ($ Given - Prov ider: Chrystal Roa MD - Comment: intraocular injection) HYDROmorphone (DILAUDID) injection 0.5 mg 0.5 mg, Intravenous, EVERY 10 MIN PRN, Severe Pain, 4 doses, Starting on [place] 1220 at 0942, Until [place] 1220 at 1122, Maximum total of 4 doses If patient reaches max total dose, please consult anesthesiologist prior to further administration of pain meds. Hold pain meds if there are signs of hypoventilation., PACU hydroxypropyl methylcellulose (OCUCOAT) 2 % ophthalmic solution (CANCELED) PRN, Starting on [place] 1220 at 0850, Until [place] 1220 at 0925, Intra-op 0850 ($ Given - Prov ider: Chrystal Roa MD) meperidine (DEMEROL) injection 12.5 mg 12.5 mg, Intravenous, ONCE PRN, shivering, 1 dose, Starting on [place] 1220 at 0942, Until [place] 12 at 1122, PACU moxifloxacin (VIGAMOX) 0.5% ophthalmic solution (CANCELED) PRN, Starting on [place] 1220 at 0911, Until [place] 1220 at 0925, Intra-op 0911 ($ Given - Prov ider: Chrystal Roa MD) ondansetron (ZOFRAN) injection 4 mg 4 mg, Intravenous, ONCE PRN, Nausea/Vomiting, 1 dose, Starting on [place] 1220 at 0942, Until [place] 1220 at 1122, First choice, PACU prednisoLONE acetate (PRED FORTE) 1 % ophthalmic suspension (CANCELED) PRN, Starting on [place] 1220 at 0912, Until [place] 1220 at 0925, Intra-op 0912 ($ Given - Prov ider: Chrystal Roa MD) prochlorperazine (COMPAZINE) injection 10 mg 10 mg, Intravenous, ONCE PRN, Nausea/Vomiting, 1 dose, Starting on [place] 04/18/20 at 0942, Until [place] 04/18/20 at 1122, Second choice, use if first choice was ineffective., PACU tobramycin-dexamethasone (TOBRADEX) ophthalmic ointment (CANCELED) PRN, Starting on [place] 04/18/20 at 0912, Until [place] 04/18/20 at 0925, Intra-op 0912 ($ Given - Prov ider: Chrystal Roa MD) triamcinolone acetonide (KENALOG-40) injection (CANCELED) PRN, Starting on [place] 04/18/20 at 0855, Until [place] 04/18/20 at 0925, Intra-op 0855 ($ Given - Prov ider: Chrystal Roa MD - Comment: intraocular injection for vitreous visualization) Linked Groups Order Group 1: SALINE LOCK, INSERT AND MAINTAIN (CANCELED) Routine, CONTINUOUS, Starting on [place] 04/18/20 at 0630, Until Specified, Pre-op, New collection And 0.9% NaCl injection 3 mLJump to med 3 mL, Intracatheter, EVERY 8 HOURS, First dose on [place] 04/18/20 at 0630, Until Discontinued, Flush peripheral IV catheter with 3 mL of normal saline every 8 hours., Pre-op And 0.9% NaCl injection 1-10 mLJump to med 1-10 mL, Intracatheter, PRN, Other, peripheral line flush, Starting on [place] 04/18/20 at 0628, Until [place] 04/18/20 at 1122, Flush peripheral IV catheter with 1-10 mL of normal saline before and after medications and prn to clear blood from the line or to verify patency., Pre-op documented in this encounter Care Teams Dialysis Nurse Relationship Specialty Start Date End Date Martha Lawrence MD PCP - General 03/21/20 documented as of this encounter
--- OUTSIDE RECORDS SUMMARY | 2024-05-13 22:21 | XMS_ITS | Encounter Summary ---
Author Organization [facility] Address [address] [place] [address] Care Team Providers Care Revenue Collector Name Role Phone Martha Lawrence MD Primary Care Provider [phone] Reason for Visit * Reason Comments Follow-up Encounter Details Date Type Department Care Team (Latest Contact Info) Description 05/13/2020 9:00 AM ELECTRON MICROPROBE OPERATOR Office Visit [facility] [address] [place] [phone] Marc Baumann MD [address] [place] [address] [place] [phone] Glaucoma associated with ocular disorder, indeterminate stage, right (Primary Dx); Status post vitreoretinal surgery, right eye Social History Tobacco Use Types [...] as of this encounter Progress Notes * Cherrie Arriola MD - 05/13/2020 10:52 AM CST Ophthalmology Office Note Subjective: Cesario Jewell is an 40 year old Chief Complaint Patient presents with ??? Follow-up Cesario Jewell is a 40 year old female presenting for one month follow-up. She states since she was last here in Mar 2020, she has been seeing white spots with a rainbow haloaround them. She states there is associated pain and pressure with this. She takes ibuprofen routinely every six hours just to help with pain, as well as nausea. She states her pressures feel fine right now. She states she has occasional FBS, particularly when pressures are up. Pt notes she usually sleeps on her right side. Gtts: RIGHT EYE Cyclo BID (has not taken in a week PF TID Moxifloxacin QID Alphagan TID Dorzolamide TID Latanoprost QHS Tobradex VIVEK QHS Current Outpatient Medications Medication Sig Dispense Refill [...] - Linear) Right Left Dist sc 20/50 pros Dist ph sc 20/50 +2 Forgot glasses today. Tonometry (Tonopen, 9:58 AM) Right Left Pressure 30 pros Visual Bay Left Right Full Restrictions Total superior temporal, inferior temporal, superior nasal, inferior nasal deficiencies Extraocular Movement Pros OS. Neuro/Psych Oriented x3: Yes Dilation Both eyes: 1.0% Mydriacyl, 2.5% Slade Synephrine @ 10:00 AM Slit Lamp and Fundus Exam External Exam Right Left External Normal Slit Lamp Exam Right Left Lids/Lashes Normal pros Conjunctiva/Sclera sutured, no leakage Cornea Clear Anterior Chamber Deep and quiet Iris Round and reactive Lens PCIOL, sulcus lens Vitreous clear Fundus Exam Right Left Disc Normal Macula flat Vessels Normal Periphery 360 attached Refraction Wearing Rx Sphere Cylinder Grace Right -3.50 +0.75 098 Left bal Type: SVL Assessment/Plan: # Ocular hypertension OD - IOP Elevated today - IOP 30, applanation 36 today, pain resolved - Compliant with drops as above - Previously required Diamox, will restart. Sulfa allergy is because she had periorbital rash after iopidine ?? #POD#6 s/p 25g PPV OD for visually significant vitreous opacities/PVD (04/18/20) - PPV performed due to??significant effect on daily activities and poor performance at work due to PVD -VA 20/30, retina flat ?? #Congenital glaucoma OD -Patient previously saw Dr. Pappas??at [facility] - only once, would like to establish glaucoma care here as well ?? 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 #Pseudophakia, OD -Anterior capsule phimosis -Monocular precautions -States glasses are polycarbonate ?? Plan: -Continue Alphagan TID, Dorzolamide TID, and latanoprost qHS - Continue cyclogyl QD OD -Add Diamox 250mg QID -May need to see Dr. Moss for surgical intervention if not improving after steroid taper - Pred forte BID x 1 week, then daily x 1 week, then QOD - RTC in 1 week - Patient was instructed to call and come back in case of severe eye pain, swelling, loss of vision - Follow up with Dr. Roa as scheduled Cherrie Arriola MD Ophthalmology, PGY-3 TRON MICROPROBE OPERATOR Associated attestation - Marc Baumann MD - 05/23/2020 8:14 AM ELECTRON MICROPROBE OPERATOR I have examined the patient in person [...] addition, I note the following: Congenital glaucoma OD: Add Diamox (patient has tolerated well in the past) Inc Alphagan OD TID Continue Latanoprost OU QHS Continue steroid taper RTC 1 week. Schedule follow up with Dr. Moss. Marc Baumann MD, PhD documented in this encounter Plan of Treatment Upcoming Encounters Date Type Department Care Team (Late st Contact Info) Description 06/07/2024 1:00 PM ELECTRON MICROPROBE OPERATOR Office Visit [facility] - Ophthalmology [address] [place] [phone] Chrystal Roa MD [address] [place] [address] [place] [phone] 06/23/2024 2:00 PM ELECTRON MICROPROBE OPERATOR Office Visit [facility] - Ophthalmology [address] [place] [phone] Fidel Moss MD [address] [place] [address] [phone] documented as of this encounter Visit Diagnoses Diagnosis Glaucoma associated with ocular disorder, indeterminate stage, right- Primary Status post vitreoretinal surgery, right eye Other states following surgery of eye and adnexa documented in this encounter Care Teams Revenue Collector Relationship Specialty Start Date End Date Martha Lawrence MD PCP - General 03/21/20 documented as of this encounter
--- OUTSIDE RECORDS SUMMARY | 2024-05-13 22:21 | XMS_ITS | Encounter Summary ---
Author Organization [facility] Address [address] [place] [address] Care Team Providers Care Heel Sprayer Name Role Phone Martha Lawrence MD Primary Care Provider [phone] Reason for Visit * Auth/Cert Specialty Diagnoses / Procedures Referred By Joelle lopez Referred To Contact Diagnoses Secondary glaucoma, unspecified glaucoma stage, unspecified laterality Secondary glaucoma Procedures INSERTION AQUEOUS (GLAUCOMA) SHUNT TO EXTRAOCULAR RESERVOIR Referral ID Status Reason Start Date Expiration Date Visits Re quested Visits Authorized [id number] 1 1 Encounter Details Date Type Department Care Team (Late st Contact Info) Description 07/03/2020 1:[address] DRIVER - 07/03/2020 4:[address] AW[address] DRIVER Surgery [facility] OR [facility] SURGERY [address] [place] [phone] Fidel Moss MD [address] [place] [address] Ahmed implant right eye and dexamethasone subconjunctival injection, possible additional pars plana vitrectomy with tube placement in the vitreous cavity Surgery Details Date/Time Status Location OR Service Patient Class Case Class Case Type Trauma Case? 07/03/2020 1:40 PM Posted [facility] OR VIRGIL OR 01 Ophthalmology Surgery Day Care Panel 1 Procedure LRB Anes Op Region Wound Class Comments Ahmed implant right eye and dexamethasone subconjunctival injection, possible additional pars plana vitrectomy with tube placement in the vitreous cavity Right General Clean Surgeon Surgeon Role Service Panel Fidel Moss MD Primary Ophthalmology 1 Jilwan, Franco A, MD Resident - Assisting Ophthalmolog y 1 Special Needs SUPINE, GENERAL WITH LOCALAhmed implant right eye and dexamethasone subconjunctival injection, possible additional pars plana vitrectomy with tube placement in the vitreous cavity, strongly prefer general anesthesia in this monocular patient to reduce need for extensive periocular documented in this encounter Social History Tobacco [...] Sign Reading Time Taken Comments Blood Pressure 131/88 07/03/2020 3:[address] DRIVER Pulse 115 07/03/2020 3:[address]IVER Temperature 37 ??C (98.6 ??F) 07/03/2020 2:[address] DRIVER Respiratory Rate 14 07/03/2020 3:[address] DRIVER Oxygen Saturation 98% 07/03/2020 3:[address] DRIVER Inhaled Oxygen Concentration - - Weight 105.2 kg (232 lb) 07/03/2020 12:[address] DRIVER Height 167.6 cm (5' 6 ) 07/03/2020 12:[address] DRIVER Body Mass Index 37.45 07/03/2020 12:[address] AW[address] DRIVER documented in this encounter Functional Status Functional [...] No 07/03/2020 documented as of this encounter Discharge Summaries * Franco Martinez MD - 07/03/2020 3:37 PM CST Images from the original note were not included. SAME DAY SURGERY DISCHARGE SUMMARY Patient ID: Cesario Jewell [id number] 40 year old 1980 Date of Surgery: 07/03/2020 Procedure performed: Ahmed implant, Pars Plana tube placement and viscoelastic tamponade, Subconjunctival Dexamethasone Depot right eye. Discharge Date: 07/03/2020 Discharge Diagnoses: Present on Admission: None Discharge Condition: Stable. Doing well. Discharge Medication: Medication List ASK your doctor about these medications albuterol HFA 108 (90 Base) MCG/ACT inhaler Commonly known as: PROVENTIL;VENTOLIN;PROAIR ALPRAZolam 0.5 MG tablet Commonly known as: XANAX betaxolol 0.5 % ophthalmic solution Instill 1 (one) drop into right eye 2 times daily brimonidine 0.1 % 0.1 % ophthalmic solution Commonly known as: Alphagan P Instill 1 drop into right eye 3 times daily buPROPion XL 24hr 150 MG tablet Commonly known as: WELLBUTRIN-XL Cholecalciferol 125 MCG (5000 UT) cyclopentolate 2% 2 % ophthalmic solution Commonly known as: CYCLOGYL Instill 1 drop into right eye 2 times daily dorzolamide 2 % ophthalmic solution Commonly known as: TRUSOPT Instill 1 drop into right eye 3 times daily escitalopram 20 MG tablet Commonly known as: LEXAPRO Flovent HFA 44 MCG/ACT inhaler Generic drug: fluticasone hfa 44 hydrOXYzine hcl 25 MG tablet Commonly known as: ATARAX * lamoTRIgine 25 MG tablet Commonly known as: LaMICtal * lamoTRIgine 100 MG tablet Commonly known as: LaMICtal latanoprost 0.005 % ophthalmic solution Commonly known as: XALATAN Instill 1 drop into right eye at bedtime LORazepam 0.5 MG tablet Commonly known as: ATIVAN metFORMIN ER 24hr 500 MG tablet Commonly known as: GLUCOPHAGE XR montelukast 10 MG tablet Commonly known as: SINGULAIR omeprazole 20 MG capsule Commonly known as: PriLOSEC prednisoLONE acetate 1 % ophthalmic suspension Commonly known as: PRED FORTE Instill 1 drop into right eye 3 times daily spironolactone 100 MG tablet Commonly known as: ALDACTONE tobramycin-dexamethasone 0.3-0.1 % ophthalmic ointment Commonly known as: TOBRADEX Instill into right eye at bedtime traZODone 150 MG tablet Commonly known as: DESYREL Trulicity 1.5 MG/0.5ML injection Generic drug: dulaglutide * This list has 2 medication(s) that are the same as other medications prescribed for you. Read thedirections carefully, and ask your doctor or other care provider to review them with you. No discharge procedures on file. Discharge Instructions [facility] Department of Ophthalmology Post-Operative Instructions First post-operative appointment: 07/04/20 at 8:30 AM Immediate Post-surgery care: ?? Only remove the eye shield to place the eye drops -- then replace it immediately. ?? Resume your normal diet, but eat lightly. Drink as much fluid as you wish. No alcohol. ?? You should relax after the surgery. Get plenty of rest. Call with any problems or questions you may have. ?? Pain management: The eye can be somewhat sore for the first week after surgery. This can includea foreign-body sensation, light sensitivity, redness, and tearing. As long as you have no liver disease or bleeding disorders, you may take the following medications (call if you are not sure if you can take pain pills): ?? Tylenol, or Extra Strength Tylenol: 1-2 tablets every 4-6 hours as needed for pain. Do not exceed the recommended dose on the bottle. ?? Advil/Motrin (200 mg): 1-2 tablets every 6-8 hours as needed for pain. Do not exceed the recommended dose on the bottle. Eye drops to be applied to the surgical eye: Tobradex (WHITE top) Milky drop -- shake well Nevanac (APONTE top) Vigamox (GARCIA top) First Week 4x/day 4x/day 4x/day General Postoperative Care: 1.) You must protect [...] week later, and again one month after. You should call FOR AN EMERGENCY. [facility] [address] [facility] [address] Patient Education General Anesthesia WHAT YOU NEED TO KNOW: [...] example is signing legal documents. ?? Copyright [employer] 2020 Information is for End User's use only and may not be sold, redistributed or otherwise used for commercial purposes. All illustrations and images included in CareNotes?? are the copyrighted property of [employer] or [employer] The above information is an sld educational aide only. It is not intended [...] about your condition or care. ?? Copyright [employer] 2020 Information is for End User's use only and may not be sold, redistributed or otherwise used for commercial purposes. All illustrations and images included in CareNotes?? are the copyrighted property of [employer] or [employer] The above information is an sld educational aide only. It is not intended as medical advice for individual conditions or treatments. Talk to your doctor, nurse or pharmacist before following any medical regimen to see if it is safe and effective for you. Disposition: home Follow-up: tomorrow, call if problems. Franco Martinez MD 07/03/2020 3:38 PM E AWAY DRIVER documented in this encounter Discharge Instructions * Discharge Instructions* Christopher Thakur RN - 07/03/2020 3:[address] DRIVER Images from the original note were not included. [facility] Department of Ophthalmology Post-Operative Instructions First post-operative appointment: 07/04/20 at 8:30 AM Immediate Post-surgery care: ?? Only remove the eye shield to place the eye drops -- then replace it immediately. ?? Resume your normal diet, but eat lightly. Drink as much fluid as you wish. No alcohol. ?? You should relax after the surgery. Get plenty of rest. Call with any problems or questions you may have. ?? Pain management: The eye can be somewhat sore for the first week after surgery. This can includea foreign-body sensation, light sensitivity, redness, and tearing. As long as you have no liver disease or bleeding disorders, you may take the following medications (call if you are not sure if you can take pain pills): ?? Tylenol, or Extra Strength Tylenol: 1-2 tablets every 4-6 hours as needed for pain. Do not exceed the recommended dose on the bottle. ?? Advil/Motrin (200 mg): 1-2 tablets every 6-8 hours as needed for pain. Do not exceed the recommended dose on the bottle. Eye drops to be applied to the surgical eye: Tobradex (WHITE top) Milky drop -- shake well Nevanac (APONTE top) Vigamox (GARCIA top) First Week 4x/day 4x/day 4x/day General Postoperative Care: 1.) You must protect [...] week later, and again one month after. You should call FOR AN EMERGENCY. [facility] [address] [facility] [address] Patient Education General Anesthesia WHAT YOU NEED TO KNOW: [...] example is signing legal documents. ?? Copyright [employer] 2020 Information is for End User's use only and may not be sold, redistributed or otherwise used for commercial purposes. All illustrations and images included in CareNotes?? are the copyrighted property of [employer]. or [employer] The above information is an sld educational aide only. It is not intended [...] about your condition or care. ?? Copyright [employer] 2019 Information is for End User's use only and may not be sold, redistributed or otherwise used for commercial purposes. All illustrations and images included in CareNotes?? are the copyrighted property of [employer]. or [employer] The above information is an sld educational aide only. It is not intended as medical advice for individual conditions or treatments. Talk to your doctor, nurse or pharmacist before following any medical regimen to see if it is safe and effective for you. E AWAY DRIVER documented in this encounter Medications at Time of Discharge Medication Sig Dispensed Refills Start Date End Date albuterol HFA (PROVENTIL;VENTOLIN;PROAI R) 108 (90 Base) MCG/ACT inhaler INHALE 2 PUFFS BY MOUTH EVERY 4 6 HOURS NEEDED FOR SHORT OF BREATH 09/13/2019 09/09/2020 ALPRAZolam (XANAX) 0.5 MG tablet alprazolam 0.5 mg tablet 09/06/2020 betaxolol 0.5 % ophthalmic solutionIndications:Ocula r hypertension of right eye Instill 1 (one) drop into right eye 2 times daily 10 mL 1 05/29/2020 07/26/2020 brimonidine 0.1 % (ALPHAGAN P) 0.1 % ophthalmic solution Instill 1 drop into right eye 3 times daily 04/23/2020 07/26/2020 buPROPion XL 24hr (WELLBUTRIN-XL) 150 MG tablet TAKE 1 TABLET BY MOUTH EVERY DAY IN THE MORNING 02/17/2020 09/09/2020 Cholecalciferol 125 MCG (5000 UT) Vitamin D3 125 mcg (5,000 unit) tablet TAKE 1 TABLET BY MOUTH EVERY DAY IN THE MORNING 09/06/2020 cyclopentolate 2% (CYCLOGYL) 2 % ophthalmic solution Instill 1 drop into right eye 2 times daily 04/19/2020 07/26/2020 dorzolamide (TRUSOPT) 2 % ophthalmic solution Instill 1 drop into right eye 3 times daily 04/23/2020 07/26/2020 dulaglutide (TRULICITY) 1.5 MG/0.5ML injectionIndications:Type 2 Diabetes Mellitus every Wednesday11/02/19 21 escitalopram (LEXAPRO) 20 MG tablet Take 20 mg by mouth once daily 02/02/2020 09/09/2020 FLOVENT HFA 44 MCG/ACT inhaler 05/12/2020 09/09/2020 hydrOXYzine hcl (ATARAX) 25 MG tablet Take 25 mg by mouth 4 times daily as needed 09/09/2020 lamoTRIgine (LAMICTAL) 100 MG tablet Take 150 mg by mouth once daily 04/10/2020 09/06/2020 lamoTRIgine (LAMICTAL) 25 MG tablet TAKE 2 TABLETS BY MOUTH EVERY DAY AT BEDTIME 11/27/2019 09/06/2020 latanoprost (XALATAN) 0.005 % ophthalmic solution Instill 1 drop into right eye at bedtime 04/23/2020 07/26/2020 LORazepam (ATIVAN) 0.5 MG tablet 03/21/2020 09/06/2020 metFORMIN ER 24hr (GLUCOPHAGE XR) 500 MG tablet 1,000 mg every morning 11/27/2019 09/09/2020 montelukast (SINGULAIR) 10 MG tablet Take 10 mg by mouth at bedtime 10/31/2019 09/09/2020 omeprazole (PRILOSEC) 20 MG capsuleIndications:Gastri c Hypersecretory Conditions as needed 03/05/2020 09/11/2021 prednisoLONE acetate (PRED FORTE) 1 % ophthalmic suspension Instill 1 drop into right eye 3 times daily 04/23/2020 07/26/2020 spironolactone (ALDACTONE) 100 MG tablet TAKE 1 TABLET BY MOUTH EVERY DAY IN THE MORNING 01/07/2020 09/09/2020 tobramycin-dexamethasone (TOBRADEX) 0.3-0.1 % ophthalmic ointment Instill into right eye at bedtime 04/19/2020 07/26/2020 traZODone (DESYREL) 150 MG tablet Take 150 mg by mouth at bedtime 02/02/2020 09/09/2020 documented as of this encounter H&P Notes * Fidel Moss MD - 07/02/2020 5:34 PM CST Date: 07/03/2020 Patient ID: Name: Cesario Jewell Age: [id number] year old : 1980 Present Illness: Cesario Jewell is a 40 year old female who presents for Ahmed Implant, Pars Plana Placement, Possible Pars Plana Vitrectomy, Dexamethasone Depot right eye. ROS: Patient has persistent Glaucoma, right eye. Medications: No current facility-administered medications for this encounter. Allergies: Penicillins, Sulfacetamide, and Oxycodone-acetaminophen Past surgical [...] file. Social history: Social History Socioeconomic History ??? Marital status: Single Spouse name: Not on file ??? Number of children: Not on file ??? Years of education: Not on file ??? Highest education level: Not on file Occupational History ??? Not on file Social Needs ??? Financial resource strain: Not on file ??? Food insecurity Worry: Not on file Inability: Not on file ??? Transportation needs Medical: Not on file Non-medical: Not on file Tobacco Use ??? Smoking status: Never Smoker ??? Smokeless tobacco: Never Used Substance and Sexual Activity ??? Alcohol use: Never Frequency: Never ??? Drug use: Never ??? Sexual activity: Not on file Lifestyle ??? Physical activity Days per week: Not on file Minutes per session: Not on file ??? Stress: Not on file Relationships ??? Social connections Talks on phone: Not on file Gets together: Not on file Attends catholic service: Not on file Active member of club or organization: Not on file Attends meetings of clubs or organizations: Not on file Relationship status: Not on file ??? Intimate partner violence Fear of current or ex partner: Not on file Emotionally abused: Not on file Physically abused: Not on file Forced sexual activity: Not on file Other Topics Concern ??? Not on file Social History Narrative ??? Not on file General Exam: Ht 5' 6 (1.676 m) Wt 225 lb (102.1 kg) BMI 36.32 kg/m2 General appearance: appears stated age, normal Head: Normocephalic, without obvious abnormality, atraumatic Eyes: Glaucoma right eye Lungs: rubs none Heart: regular rate and rhythm Abdomen: exam not performed Neurologic: Grossly normal Assessment: Glaucoma of right eye(s) Plan: Risks, benefits and alternatives of Ahmed Implant, Pars Plana Placement, Possible Pars Plana Vitrectomy, Dexamethasone Depot right eye were discussed including but not limited to bleeding, infection,scarring, recurrence, and need for further surgery. Patient understands and agrees to proceed with surgery. This is to be performed today as planned. Franco Martinez MD 07/02/2020 11:13 AM ATTENDING NOTE Complete history and physical was reviewed, the patient was examined and no change has occurred in the patient's condition since completion of the history and physical. Fidel Moss MD 07/03/2020 12:53 PM E AWAY DRIVER documented in this encounter OR Notes * Operative - Fidel Moss MD - 07/03/2020 1:29 PM CST DATE OF PROCEDURE: 07/03/2020 ATTENDING SURGEON: Fidel Moss MD RESIDENT: Franco Martinez MD ANESTHESIA: General Anesthesia with block PREPROCEDURE DIAGNOSIS: Glaucoma of right eye. POSTPROCEDURE DIAGNOSIS: Same PROCEDURE PERFORMED: Ahmed implant, Pars Plana tube placement and viscoelastic tamponade, Subconjunctival Dexamethasone Depot right eye. COMPLICATIONS: None. ESTIMATED BLOOD LOSS: Minimal PROCEDURE IN DETAIL: The patient was taken to the operating room and appropriately connected to cardiac, blood pressure and pulse oximetry monitors. General Anesthesia was provided by the anesthesia team. A verbal timeout occurred to verify the patient's name, date of , and surgical site and procedure to beperformed. The patient's operative eye and ocular adnexa were sterilized with 5% betadine ophthalmic solution and the patient was draped in the usual sterile manner for ophthalmic surgery. A wire lid speculum was placed. The operative microscope was brought into view over the operative eye. A ttraction suture of 6-0 Vicryl was placed in the superior quadrant to allow adequate exposure of the superotemporal quadrant. César forceps were used to open up the supratemporal quadrant approximately 4 clock hours with peritomy at that area with relaxing incisions at the edges. A subtenons block of a 2:2:1 mixture of 2% lidocaine without epinephrine, 0.75% marcaine, as well as hyaluronase was injected without complications. Blunt Westcotts were used to dissect the supratemporal quadrant and Monroe scissors were also used to expose the area. An Ahmed glaucoma valve was then primed and placed in the superotemporal quadrant. The calipers were used to measure 9 mm posterior to the limbus and the Ahmed valve was sutured with 2 interrupted sutures of 8-0 Prolene to bare sclera. Traction was then released and the tube was trimmed to the desired length. A paracentesis was made with the side port, and Viscoat was injected into the anterior chamber. Caliper at 4.0 mm were used to measure the Pars Plana A 22-gauge needle on a BSS was used tomake a scleral tunnel through the sclera into the anterior vitreous. Viscoat was placed in the vitreous cavity to increase intraocular pressure. The tube was then inserted into this tract using tyingforceps.The tube was found to be in good position, and it was covered with approximately 5 x 5 mm piece of Tutoplast. The tutoplast was sutured in place with 4 interrupted 8-0 Vicryl sutures. The conjunctiva was then manipulated andattached to the corners of the periotomy with two 7-0 Vicryl sutures that were then run back along the relaxing incisions. 1.0 mL of 40 mg/ml Dexamethasone was placed in the subconjunctival space inferiorly using a 27G Needle. BSS on a cannula was used to inflate the anterior chamber to a physiologic pressure. No leaks, buttonholes, or tears were identified. The traction suture was removed. Then the drapes were carefully removed. Post-operative eye drops including Tobradex, Nevanac, and Vigamox as well as Tobradex ointment were applied. The eye was shielded. The patient tolerated the procedure well and was wheeled to recovery in stable condition. Dr. Moss was present for the entirety of the case. Franco Martinez MD 07/03/2020 3:35 PM ATTENDING NOTE Attestation: I was present for the vizcarra portions of the procedure and supervised the procedure described by the resident above. Fidel Moss MD 07/03/2020 10:11 PM E AWAY DRIVER documented in this encounter Plan of Treatment Upcoming Encounters Date Type Department Care Team (Late st Contact Info) Description 06/07/2024 1:[address]IVER Office Visit [facility] - Ophthalmology [address] [place] [phone] Chrystal Roa MD [address] [place] [address] [place] [phone] 06/23/2024 2:[address]IVER Office Visit [facility] - Ophthalmology [address] [place] [phone] Fidel Moss MD [address] [place] [phone] documented as of this encounter Procedures Procedure Name Priority Date/Time Associated Diagnosis Comments INSERTION AQUEOUS (GLAUCOMA) SHUNT TO EXTRAOCULAR RESERVOIR 07/03/2020 1:[address] DRIVER Secondary glaucoma, unspecified glaucoma stage, unspecified laterality Special Needs SUPINE, GENERAL WITH LOCALAhmed implant right eye and dexamethasone subconjunctival injection, possible additional pars plana vitrectomy with tube placement in the vitreous cavity, strongly prefer general anesthesia in this monocular patient to reduce need for extensive periocular HCG URINE QUALITATIVE - POCT (IP) INTERFACED Routine 07/03/2020 11:[address] HCG URINE QUAL POCT NOTIFICATION STAT 07/03/2020 11:[address]IVER Pre-op testing documented in this encounter Results * HCG URINE QUALITATIVE - POCT (IP) INTERFACED (07/03/2020 11:[address] DRIVER) HCG Qual Urine Negative Negative 07/03/2020 12:[address] [facility] Urine URINE / Unknown 07/03/2020 1 1:[address] 07/03/2020 12:[address] Fidel Moss MD LAB - POINT OF CARE ORDERABLES Performing Organization Address City/[facility]/ZIP Co de Phone Number [address] [address], [place] [phone] * HCG URINE QUAL POCT NOTIFICATION (07/03/2020 11:[address]IVER) Comment Notification Label Only - See Separate Report 07/03/2020 1:[address]IVER [facility] Urine URINE / Unknown 07/03/2020 1 1:[address] 07/03/2020 11:[address] Fidel Moss MD LAB - URINALYSIS ORD ERABLES Performing Organization Address City/[facility]/ZIP Co de Phone Number [address] [address], [place] [phone] documented in this encounter Visit Diagnoses Diagnosis Pre-op testing Preoperative examination, unspecified Secondary glaucoma, unspecified glaucoma stage, unspecified laterality documented in this encounter Administered Medications Inactive Administered Medications - up to 3 most recent administrations Medication Order MAR Action Action Date Dose Rate Site 0.9% NaCl injection 1-10 mL 1-10 mL, Intracatheter, PRN, Other, peripheral line flush, Starting on Wed07/03/20 at 1150, Until Wed07/03/20 at 1704, Flush peripheral IV catheter with 1-10 mL of normal saline before and after medications and prn to clear blood from the line or to verify patency., Pre-op 0.9% NaCl injection 3 mL 3 mL, Intracatheter, EVERY 8 HOURS, First dose on Wed07/03/20 at 1400, Until Discontinued, Flush peripheral IV catheter with 3 mL of normal saline every 8 hours., Pre-op chondroitin-sodium hyaluronate (VISCOAT) intraocular solution PRN, Starting on Wed07/03/20 at 1343, Until Wed07/03/20 at 1451, Intra-op $ Given 07/03/2020 2:[address] 0.5 mL Rig ht Eye $ Given 07/03/2020 2:[address]IVER 0.5 mL Ri ght Eye $ Given 07/03/2020 1:[address] DRIVER 0.5 mL Ri ght Eye cyclopentolate (CYCLOGYL) 2% ophthalmic solution 1 drop, Right Eye, PRE-OP MULTIPLE, 3 doses, Starting on Wed07/03/20 at 1150, Until Wed07/03/20 at 1224, Pre-op $ Given 07/03/2020 12:[address] DRIVER 1 drop $ Given 07/03/2020 12:[address] DRIVER 1 drop $ Given 07/03/2020 12:[address]IVER 1 drop dexamethasone (DECADRON) injection PRN, Starting on Wed07/03/20 at 1436, Until Wed07/03/20 at 1451, Intra-op $ Given 07/03/2020 2:[address] 4 mg Right Eye hydroxypropyl methylcellulose (OCUCOAT) 2 % ophthalmic solution PRN, Starting on Wed07/03/20 at 1407, Until Wed07/03/20 at 1451, Intra-op $ Given 07/03/2020 2:[address] DRIVER 1 mL Right Eye ketorolac (TORADOL) injection 15 mg 15 mg, Intravenous, ONCE PRN, pain and discomfort, Starting on Wed07/03/20 at 1439, Until Wed07/03/20 at 1704, For pain and discomfort, if not given in OR., PACU $ Given 07/03/2020 3:[address] DRIVER 15 mg lactated ringers infusion at 75 mL/hr, Intravenous, CONTINUOUS, Starting on Wed07/03/20 at 1200, Until Wed07/03/20 at 1704, Pre-op $ New Bag/Syringe 07/03/2020 12:[address]IVER 75 mL/hr 75 mL/hr lidocaine (AKTEN) 3.5 % ophthalmic gel GEL 1 drop 1 drop, Right Eye, PRE-OP ONCE, 1 dose, On Wed07/03/20 at 1200, Pre-op $ Given 07/03/2020 1:[address] AW[address] DRIVER 1 drop lidocaine PF (XYLOCAINE MPF) 1 % injection PRN, Starting on Wed07/03/20 at 1438, Until Wed07/03/20 at 1451, Intra-op $ Given 07/03/2020 2:[address] DRIVER 1 mL Right Eye moxifloxacin (VIGAMOX) 0.5% ophthalmic solution PRN, Starting on Wed07/03/20 at 1359, Until Wed07/03/20 at 1451, Intra-op $ Given 07/03/2020 1:[address] AW[address] DRIVER 1 drop Right Eye jclyjgba-vvbuengmn-mdirryhw (MAXITROL) ophthalmic ointment PRN, Starting on Wed07/03/20 at 1437, Until Wed07/03/20 at 1451, Intra-op $ Given 07/03/2020 2:[address] DRIVER 1 inch Right Eye nepafenac (NEVANAC) 0.1 % ophth suspension PRN, Starting on Wed07/03/20 at 1359, Until Wed07/03/20 at 1451, Intra-op $ Given 07/03/2020 1:[address] DRIVER 1 drop Right Eye phenylephrine (MYDFRIN) 2.5% ophthalmic solution 1 drop, Right Eye, PRE-OP MULTIPLE, 3 doses, Starting on Wed07/03/20 at 1150, Until Wed07/03/20 at 1223, Pre-op $ Given 07/03/2020 12:[address] DRIVER 1 drop $ Given 07/03/2020 12:[address] AW[address] DRIVER 1 drop $ Given 07/03/2020 12:[address] DRIVER 1 drop tobramycin-dexamethasone (TOBRADEX) 0.3-0.1 % ophthalmic suspension PRN, Starting on Wed07/03/20 at 1359, Until Wed07/03/20 at 1451, Intra-op $ Given 07/03/2020 1:[address] DRIVER 1 drop Right Eye tropicamide (MYDRIACYL) 1% ophthalmic solution 1 drop, Right Eye, PRE-OP MULTIPLE, 3 doses, Starting on Wed07/03/20 at 1150, Until Wed07/03/20 at 1224, Pre-op $ Given 07/03/2020 12:[address] AW[address] DRIVER 1 drop $ Given 07/03/2020 12:[address] DRIVER 1 drop $ Given 07/03/2020 12:[address] DRIVER 1 drop documented in this encounter Active and Recently Administered Medications Times are shown in DRIVE AWAY DRIVER. Scheduled Medication Order 07/01/2020 07/02/2020 07/03/2020 0.9% NaCl injection 3 mL(Linked Group 1) 3 mL, Intracatheter, EVERY 8 HOURS, First dose on Wed07/03/20 at 1400, Until Discontinued, Flush peripheral IV catheter with 3 mL of normal saline every 8 hours., Pre-op 1400 (Due) cyclopentolate (CYCLOGYL) 2% ophthalmic solution (COMPLETED) 1 drop, Right Eye, PRE-OP MULTIPLE, 3 doses, Starting on Wed07/03/20 at 1150, Until Wed07/03/20 at 1224, Pre-op 1205 ($ Given - Prov ider: Jacinta Thomson RN)1216 ($ Given - Provider: Jacinta Thomson RN)1224 ($ Given - Provider: Jacinta Thomson RN) lidocaine (AKTEN) 3.5 % ophthalmic gel GEL 1 drop (COMPLETED) 1 drop, Right Eye, PRE-OP ONCE, 1 dose, On Wed07/03/20 at 1200, Pre-op 1307 ($ Given - Prov ider: Krystyna Velasquez RN) naloxone (NARCAN) injection 0.04 mg 0.04 mg, Intravenous, POST-OP MULTIPLE, Starting on Wed07/03/20 at 1439, Until Wed07/03/20 at 1704, Notify physician immediately, and mix 0.4 mg [...] Eye, PRE-OP MULTIPLE, 3 doses, Starting on Wed07/03/20 at 1150, Until Wed07/03/20 at 1223, Pre-op 1205 ($ Given - Prov ider: Jacinta Thomson, SANJANA)1216 ($ Given - Provider: Jacinta Thomson, RN)1223 ($ Given - Provider: Jacinta Thomson RN) tropicamide (MYDRIACYL) 1% ophthalmic solution (COMPLETED) 1 drop, Right Eye, PRE-OP MULTIPLE, 3 doses, Starting on Wed07/03/20 at 1150, Until Wed07/03/20 at 1224, Pre-op 1205 ($ Given - Prov ider: Jacinta Thomson, SANJANA)1216 ($ Given - Provider: Jacinta Thomson, SANJANA)1224 ($ Given - Provider: Jacinta Thomson, RN) Continuous Medication Order 07/01/2020 07/02/2020 07/03/2020 lactated ringers infusion at 75 mL/hr, Intravenous, CONTINUOUS, Starting on Wed07/03/20 at 1200, Until Wed07/03/20 at 1704, Pre-op 1223 ($ New Bag/Syri nge - Provider: Jacinta Thomson RN)1549 (Stopped - Provider: Christopher Thakur RN) PRN Medication Order 07/01/2020 07/02/2020 07/03/2020 0.9% NaCl injection 1-10 mL(Linked Group 1) 1-10 mL, Intracatheter, PRN, Other, peripheral line flush, Starting on Wed07/03/20 at 1150, Until Wed07/03/20 at 1704, Flush peripheral IV catheter with 1-10 mL of normal saline before and after medications and prn to clear blood from the line or to verify patency., Pre-op chondroitin-sodium hyaluronate (VISCOAT) intraocular solution (CANCELED) PRN, Starting on Wed07/03/20 at 1343, Until Wed07/03/20 at 1451, Intra-op 1343 ($ Given - Prov ider: Franco Martinez MD)1400 ($ Given - Provider: Danita Adam, SANJANA)1401 ($ Given - Provider: Danita Adam, RN) dexamethasone (DECADRON) injection (CANCELED) PRN, Starting on Wed07/03/20 at 1436, Until Wed07/03/20 at 1451, Intra-op 1436 ($ Given - Prov ider: Franco Martinez MD) diphenhydrAMINE (BENADRYL) injection 25 mg 25 mg, Intravenous, ONCE PRN, Nausea/Vomiting, 1 dose, Starting on Wed07/03/20 at 1439, Until Wed07/03/20 at 1704, Second choice, use if first choice was ineffective., PACU fentaNYL (PF) (SUBLIMAZE) injection 25 mcg 25 mcg, Intravenous, EVERY 10 MIN PRN, Mild Pain, 4 doses, Starting on Wed07/03/20 at 1439, Until Wed07/03/20 at 1704, Maximum total of 4 doses. If patient reaches max total dose, please consult anesthesiologist prior to further administration of pain meds. Hold pain meds if there are signs of hypoventilation., PACU hydroxypropyl methylcellulose (OCUCOAT) 2 % ophthalmic solution (CANCELED) PRN, Starting on Wed07/03/20 at 1407, Until Wed07/03/20 at 1451, Intra-op 1407 ($ Given - Prov ider: Franco Martinez MD) ketorolac (TORADOL) injection 15 mg 15 mg, Intravenous, ONCE PRN, pain and discomfort, Starting on Wed07/03/20 at 1439, Until Wed07/03/20 at 1704, For pain and discomfort, if not given in OR., PACU 1510 ($ Given - Prov ider: Christopher Thakur RN) lidocaine PF (XYLOCAINE MPF) 1 % injection (CANCELED) PRN, Starting on Wed07/03/20 at 1438, Until Wed07/03/20 at 1451, Intra-op 1438 ($ Given - Prov ider: Franco Martinez MD) metoclopramide (REGLAN) injection 10 mg 10 mg, Intravenous, ONCE PRN, Nausea/Vomiting, 1 dose, Starting on Wed07/03/20 at 1439, Until Wed07/03/20 at 1704, First choice, PACU moxifloxacin (VIGAMOX) 0.5% ophthalmic solution (CANCELED) PRN, Starting on Wed07/03/20 at 1359, Until Wed07/03/20 at 1451, Intra-op 1359 ($ Given - Prov ider: Danita Adam RN) eaaptkqj-vpprxmyss-ozmehxij (MAXITROL) ophthalmic ointment (CANCELED) PRN, Starting on Wed07/03/20 at 1437, Until Wed07/03/20 at 1451, Intra-op 1437 ($ Given - Prov ider: Franco Martinez MD) nepafenac (NEVANAC) 0.1 % ophth suspension (CANCELED) PRN, Starting on Wed07/03/20 at 1359, Until Wed07/03/20 at 1451, Intra-op 1359 ($ Given - Prov ider: Danita Adam RN) tobramycin-dexamethasone (TOBRADEX) 0.3-0.1 % ophthalmic suspension (CANCELED) PRN, Starting on Wed07/03/20 at 1359, Until Wed07/03/20 at 1451, Intra-op 1359 ($ Given - Prov ider: Danita Adam RN) Linked Groups Order Group 1: SALINE LOCK, INSERT AND MAINTAIN (CANCELED) Routine, CONTINUOUS, Starting on Wed07/03/20 at 1200, Until Specified, Pre-op, New collection And 0.9% NaCl injection 3 mLJump to med 3 mL, Intracatheter, EVERY 8 HOURS, First dose on Wed07/03/20 at 1400, Until Discontinued, Flush peripheral IV catheter with 3 mL of normal saline every 8 hours., Pre-op And 0.9% NaCl injection 1-10 mLJump to med 1-10 mL, Intracatheter, PRN, Other, peripheral line flush, Starting on Wed07/03/20 at 1150, Until Wed07/03/20 at 1704, Flush peripheral IV catheter with 1-10 mL of normal saline before and after medications and prn to clear blood from the line or to verify patency., Pre-op documented in this encounter Care Teams Heel Sprayer Relationship Specialty Start Date End Date Martha Lawrence MD PCP - General 03/21/20 documented as of this encounter
--- OUTSIDE RECORDS SUMMARY | 2024-05-13 22:21 | XMS_ITS | Encounter Summary ---
Author Organization [facility] Address [address] [place] [address] Care Team Providers Care Health Education Coordinator Name Role Phone Martha Lawrence MD Primary Care Provider [phone] Reason for Visit * Reason Comments Pvd Encounter Details Date Type Department Care Team (Latest Contact Info) Description 04/10/2020 1:15 PM ROLL CONTOUR GRINDER Office Visit [facility] [address] [place] [phone] Chrystal Roa MD [address] [place] [address] [place] [phone] Symptomatic posterior vitreous detachment of right eye (Primary Dx); Pseudophakia; Prosthetic eye globe; Glaucoma associated with ocular disorder, indeterminate stage, right Social History Tobacco Use Types Packs/Day Years Used Date Smoking Tobacco: Never AUDIT-C Answer Date Recorded Q1: How often [...] Sign Reading Time Taken Comments Blood Pressure - - Pulse - - Temperature - - Respiratory Rate - - Oxygen Saturation - - Inhaled Oxygen Concentration - - Weight 103.6 kg (228 lb 6.4 oz) 04/10/2020 6:19 PM ROLL CONTOUR GRINDER Height 172.7 cm (5' 8 ) 04/10/2020 6:19 PM ROLL CONTOUR GRINDER Body Mass Index 34.73 04/10/2020 6:19 PM ROLL CONTOUR GRINDER documented in this encounter Patient Instructions * Patient Instructions* Chrystal Roa MD - 04/16/2020 11:46 AM ROLL CONTOUR GRINDER [facility] Located at: [facility] [address] [place] [id number] Your Visit from 04/10/2020 Follow up Appointment:Will schedule for surgery - It is important that you follow up with us for the health of your eyes. - If you have trouble making or getting to your appointment please call our clinic Oral Medications: Activity Instructions: Do Not Rub [...] thesemedicines. Phone Number: Week (8am-5pm) - Call [phone] () Evenings, Weekends, or Holidays: Call [phone] and dial [phone] for the oil refinery operator. Ask to speak to the eye doctor police communications dispatcher. They will connect us. CONTOUR GRINDER documented in this encounter Progress Notes * Gavin Tamez MD - 04/10/2020 1:20 PM CST Ophthalmology Office Note Subjective: Chief Complaint Patient presents with ??? 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 Pt c/o sharp and sudden pain c fatigue headaches lasting ~1hr at a time and then goes away that comes in the evening time. Pt also states she is having FOL all of the time and happens more when looking suddenly from side to side, and states there is still a blob (same size from last visit) in the center of [place] that dissipates when moving the eye - OD. Pt using Alphagan TID, Latanoprost QHS, and Dorzaolamide TID OD. Past History: Past Medical History: Diagnosis Date [...] WITH TUBE INSERTION ??? Tonsillectomy and Adenoidectomy No family history on file. Social History [...] file Gets together: Not on file Attends druze service: Not on file Active member of [...] Social History Narrative ??? Not on file A 10 point ROS was obtained and was otherwise negative except as described above in HPI. Current Outpatient Medications Medication Sig Dispense Refill ??? albuterol HFA (PROVENTIL;VENTOLIN;PROAIR) 108 (90 Base) MCG/ACT inhaler INHALE 2 PUFFS BY MOUTHEVERY 4 6 HOURS NEEDED FOR SHORT OF BREATH ??? ALPHAGAN P 0.1 % ophthalmic solution ADMINISTER 1 DROP INTO RIGHT EYE 3 TIMES DAILY ??? buPROPion XL 24hr (WELLBUTRIN-XL) 150 MG tablet TAKE 1 TABLET BY MOUTH EVERY DAY IN THE MORNING ??? Cholecalciferol 125 MCG (5000 UT) Vitamin D3 125 mcg (5,000 unit) tablet TAKE 1 TABLET BY MOUTH EVERY DAY IN THE MORNING ??? dorzolamide (TRUSOPT) 2 % ophthalmic solution APPLY 1 DROP INTO RIGHT EYE THREE TIMES A DAY ??? escitalopram (LEXAPRO) 20 MG tablet Take 20 mg by mouth once daily ??? lamoTRIgine (LAMICTAL) 25 MG tablet TAKE 2 TABLETS BY MOUTH EVERY DAY AT BEDTIME ??? latanoprost (XALATAN) 0.005 % ophthalmic solution INSTILL 1 DROP INTO RIGHT EYE AT BEDTIME ??? LORazepam (ATIVAN) 0.5 MG tablet ??? metFORMIN ER 24hr (GLUCOPHAGE XR) 500 MG tablet TAKE 2 TABLETS BY MOUTH EVERY DAY BEFORE MEALS. ??? montelukast (SINGULAIR) 10 MG tablet Take 10 mg by mouth once daily ??? omeprazole (PRILOSEC) 20 MG capsule TAKE 1 CAPSULE BY MOUTH EVERY DAY 30 MINUTES BEFORE MORNINGMEAL ??? spironolactone (ALDACTONE) 100 MG tablet TAKE 1 TABLET BY MOUTH EVERY DAY IN THE MORNING ??? traZODone (DESYREL) 150 MG tablet TAKE 1 TABLET BY MOUTH EVERYDAY AT BEDTIME No current facility-administered medications for this visit. Allergies Allergen Reactions ??? Penicillins Skin Reactions, Urticaria and Rash ??? Sulfa Drugs Urticaria, Rash and Itching ??? Sulfacetamide Urticaria, Rash, Eye Discomfort and Eye Itching ??? Sulfasalazine Urticaria and Rash ??? Oxycodone-Acetaminophen Diarrhea, Nausea and/or Vomiting and Vomiting Objective: Base Eye Exam Visual Acuity (Snellen - Linear) Right Left Dist sc s/p enucleation Dist cc 20/50 +1 Dist ph cc NI Correction: Glasses Tonometry (Tonopen, 1:05 PM) Right Left Pressure 17 pros Pupils Dark Light Shape React APD Right 2 1 t Brisk None Left s/p enucleation Visual Bay Left Right Full Restrictions Total superior temporal, inferior temporal, superior nasal, inferior nasal deficiencies s/p enucleation OS Extraocular Movement Right Left Full Full Dilation Both eyes: 1.0% Mydriacyl, 2.5% Slade Synephrine @ 1:05 PM Slit Lamp and Fundus Exam External Exam Right Left External Normal Normal Slit Lamp Exam Right Left Lids/Lashes Normal prosthetic in place, no swelling, discharge or e/o infection Conjunctiva/Sclera White and quiet prosthetic in place Cornea Clear Anterior Chamber Deep and quiet Iris Round, flat, and pharm dilated, no TID or NVI Lens sulcus IOL, anterior capsular phimosis Vitreous Posterior vitreous detachment Fundus Exam Right Left Disc Normal, pink, sharp margins C/D Ratio 0.5 Macula Flat Vessels Normal Periphery Difficult peripheral retina view due to poor dilation and anterior capsular phimosis, although attached 360 on scleral depression, no tears seen Study Findings 04/16/2020: OCT: OD: CMT 265, normal retina crosssection with preservation of fovea, clivus, and cellular lamina Extended Ophthalmoscopy: OD: Difficult peripheral retina view due to poor dilation and anterior capsular phimosis, although attached 360 on scleral depression, no tears seen on 360 scleral depression Assessment/Plan: #Symptomatic posterior vitreous detachment, right eye -Patient is monocular -Evaluated by Dr. Roa on 03/27 for worsening flashes. Had PVD OD -Pt here today with complains of significant problems with floaters. Is effecting her daily life and making it difficult for her to be successful at work. Recently failed a work task due to needing to take additional time to look around area of floater. Is significantly bothered by floaters -Anterior capsular phimosis and poor dilation limiting view to peripheral retina -At this point, given significant effect on daily activities and poor performance at work due to PVD, recommend consideration of PPV #Congenital glaucoma OD -Patient follows with Dr. 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 Patient to be scheduled for surgery under general anesthesia at [facility] on 04/18/20 Patient seen and discussed with Dr. Roa. Gavin Tamez MD Ophthalmology 04/10/2020 I reviewed and confirmed the techs ROS, past histories, and readings. I have personally seen and examined the patient, and reviewed in detail the findings of the resident/fellow. I have personally performed the extended ophthalmoscopy.The final examination findings, image interpretations, and plan as documented in the record represent my personal judgment and conclusions. with the following additions or corrections: This is the second time that I am seeing Ms. Jewell. She states that large floater blocks her visionwhile working on computer, it has significant affected her work, and daily life activities. I explained for her that most peple adjust to it;however she has not adjusted since the PVD occurred and isvery frustrated as she cant perform at high level at her job neither can perform her daily life activities without difficulty. I explained the option of vitrectomy and floaterectomy;however, given her being monocular she needsto understand and think more about the risks of surgery including retinal tear, detachment, 05/999 infection, bleeding and rarely loss of vision. Patient states that she understands the risks and would like to proceed with surgery as her life currently is not productive with the floater affecting her vision significantly. I will schedule her for: 25G PPV + possible endolaser+ possible air-fluid exchange Right Eye on 04/18/2020 General anesthesia 1.5 hour surgery Chrystal Roa MD Retina/ Uveitis attending Date of service:04/10/2020 CONTOUR GRINDER documented in this encounter Plan of Treatment Upcoming Encounters Date Type Department Care Team (Late st Contact Info) Description 06/07/2024 1:00 PM ROLL CONTOUR GRINDER Office Visit [facility] - Ophthalmology [address] [place] [phone] Chrystal Roa MD [address] [place] [address] [place] [phone] 06/23/2024 2:00 PM ROLL CONTOUR GRINDER Office Visit [facility] - Ophthalmology [address] [place] [phone] Fidel Moss MD [address] [place] [phone] documented as of this encounter Procedures Procedure Name Priority Date/Time Associated Diagnosis Comments OPH OCT TEST [facility] Routine 04/10/2020 1:09 PM ROLL CONTOUR GRINDER Symptomatic posterior vitreous detachment of right eye documented in this encounter Results * OPH OCT TEST [facility] (04/10/2020 1:09 PM ROLL CONTOUR GRINDER) Anatomical Region Laterality Modality Other 04/10/2020 1:09 PM ROLL CONTOUR GRINDER Chrystal Roa MD OPHTHALMOLOGY SERVIC ES ORDERABLES documented in this encounter Visit Diagnoses Diagnosis Symptomatic posterior vitreous detachment of right eye- Primary Pseudophakia Lens replaced by other means Prosthetic eye globe Eye globe replaced by other means Glaucoma associated with ocular disorder, indeterminate stage, right documented in this encounter Care Teams Health Education Coordinator Relationship Specialty Start Date End Date Martha Lawrence MD PCP - General 03/21/20 documented as of this encounter
--- OUTSIDE RECORDS SUMMARY | 2024-05-13 22:21 | XMS_ITS | Encounter Summary ---
Author Organization [facility] Address [address] [place] [address] Care Team Providers Care Pet Stylist Name Role Phone Martha Lawrence MD Primary Care Provider [phone] Reason for Visit * Reason Comments Post-Op Encounter Details Date Type Department Care Team (Late st Contact Info) Description 08/30/2020 10:30 AM CDT Office Visit [facility] [address] [place] [phone] Fidel Moss MD [address] [place] [phone] Postsurgical states following surgery of eye and [...] * Patient Instructions* Cherrie Arriola MD - 08/30/2020 1:04 PM CDT It was a pleasure seeing you today in the [facility] Ophthalmology clinic, which is now located on the [place] at the [facility] ([address] [place] [address]). Use these drops in the operative eye: Maxitrol (white cap) 2x daily until bottle runs out, then stop Can stop pilocarpine (green cap) Plan to schedule surgery to shorten the tube in your right eye. Janet Traylor is my emergency response officer. You reach her if you wish to schedule the surgery at #[phone]. Please call her next weekto schedule. Call us immediately with any sudden change [...] the weekend, you will need to call [facility] ([phone]), dial [phone] for the rope twisting machine operator, and say you are an eye patient and need to speak with the eye doctor senior control systems engineer. They will contact one of the eye doctors who will call you and address your concerns. Again, our clinic is now located in the [facility]. The address is [address] [place] [address]. Our clinic is located on the [place]. If you are driving, you should park on the BLUE SIDE of the parking garage and proceed to the [place] of the [facility]. documented in this encounter Progress Notes * Cherrie Arriola MD - 08/30/2020 12:43 PM CDT Isa Progress Note Cesario Jewell is an 40 year old Chief Complaint Patient presents with ??? Post-Op Cesario Jewell is a 40 year old female presenting for postop follow-up. Pt states she is still having the weird distortion. No pain/pressure. No flashes/floaters. Gtts: Pilocarpine trail BID OD Continue Maxitrol BID Today's vision: Base Eye Exam Visual Acuity (Snellen - Linear) Right Left Dist sc pros Dist cc 20/30 +2 Correction: Glasses Tonometry (Tonopen, 12:14 PM) Right Left Pressure 18 pros Tonometry #2 (Applanation, 12:56 PM) Right Left Pressure 23 Pachymetry (06/21/2020) Right Left Thickness 641 Neuro/Psych Oriented x3: Yes Mood/Affect: Normal Slit Lamp and Fundus Exam External Exam Right Left External Normal Slit Lamp Exam Right Left Lids/Lashes Normal pros Conjunctiva/Sclera Post surgical conj, good bleb formation Cornea Clear Anterior Chamber Inferior endopigment, W/Q Iris Round and reactive Lens Sulcus lens Vitreous clear, vitrectomized. Tube superotemporally clear through visual axis - TIP of tube still visible in the superior visual axis even with miotic pupil Impression/Plan: #s/p Ahmed with pars plana tube placement and viscoat tamponade, dexamethasone depot, OD Doing well - [facility]??20/30??with good bleb formation - IOP?? wnl - Tube visible in vitreous behind sulcus lens - Patient complaining of a weird distortion - no improvement with pilocarpine and also giving Dr. Roa troutolu per patient - consider shortening the tube internally, but not too short so that we can monitor for risk of vitreous incarceration -Plan: Stop Pilocarpine, continue Maxitrol BID, schedule for tube shortening - Janet's number provided Risks, benefits, and alternatives discussed. Patient feels that vision distortion is significant enough and affecting quality of life, that it out weight risks of surgery, including chance of vision loss. ?? #Congenital glaucoma OD - Patient??previously saw??Dr. [...] -??Monocular precautions - States glasses are polycarbonate Cherrie Arriola MD Ophthalmology Resident 08/30/2020, 1:07 PM ATTENDING NOTE.... As noted, patient has persistent vision obscuration most consistent with location of the glaucoma tube near the visual axis left eye that was not relieved with pilocarpine. Therefore as we discussed with her previously, we will schedule time for revision of the glaucoma tube to shorten it sufficiently to be outside the visual axis but long enough to allow us to continue to monitor it internally and treat any internal obstruction in the future with YAG laser if needed Fidel Moss MD (by voice recognition software) 08/30/2020 1:29 PM documented in this encounter Plan of Treatment Upcoming Encounters Date Type Department Care Team (Late st Contact Info) Description 06/07/2024 1:00 PM LEAD BUSINESS SYSTEMS ANALYST Office Visit [facility] - Ophthalmology [address] [place] [phone] Chrystal Roa MD [address] [place] [address] [place] [phone] 06/23/2024 2:00 PM LEAD BUSINESS SYSTEMS ANALYST Office Visit [facility] Ophthalmology [address] [place] [phone] Fidel Moss MD [address] [place] [phone] documented as of this encounter Visit Diagnoses Diagnosis Postsurgical states following surgery of eye and adnexa- Primary Other states following surgery of eye and adnexa documented in this encounter Care Teams Pet Stylist Relationship Specialty Start Date End Date Martha Lawrence MD PCP - General 03/21/20 documented as of this encounter
--- OUTSIDE RECORDS SUMMARY | 2024-05-13 22:21 | XMS_ITS | Encounter Summary ---
Author Organization [facility] Address [address] [address] [place] [address] Care Team Providers Care Patient Accounts Specialist Name Role Phone Martha Lawrence MD Primary Care Provider [phone] Reason for Visit * Auth/Cert Specialty Diagnoses / Procedures Referred By Joelle lopez Referred To Contact Diagnoses Secondary glaucoma, unspecified glaucoma stage, unspecified laterality Secondary glaucoma Procedures INSERTION AQUEOUS (GLAUCOMA) SHUNT TO EXTRAOCULAR RESERVOIR Referral ID Status Reason Start Date Expiration Date Visits Re quested Visits Authorized [id number] 1 1 Encounter Details Date Type Department Care Team (Latest Contact Info) Description 07/03/2020 10:59 AM WET PAN MIXER - 07/03/2020 3:55 PM WET PAN MIXER Hospital Encounter [facility] SURGERY [address] [place] [phone] Fidel Moss MD [address] [place] [phone] Ophthalmology Discharge Disposition: Home or Self Care Social [...] Comments Blood Pressure 131/88 07/03/2020 3:30 PM WET PAN MIXER Pulse 115 07/03/2020 3:30 PM WET PAN MIXER Temperature 37 ??C (98.6 ??F) 07/03/2020 2:55 PM WET PAN MIXER Respiratory Rate 14 07/03/2020 3:30 PM WET PAN MIXER Oxygen Saturation 98% 07/03/2020 3:30 PM WET PAN MIXER Inhaled Oxygen Concentration - - Weight 105.2 kg (232 lb) 07/03/2020 12:18 PM WET PAN MIXER Height 167.6 cm (5' 6 ) 07/03/2020 12:18 PM WET PAN MIXER Body Mass Index 37.45 07/03/2020 12:18 PM WET PAN MIXER documented in this encounter Functional Status Functional [...] SURGERY DISCHARGE SUMMARY Patient ID: Cesario Jewell [id number] 40 year old 1980 Date of Surgery: [...] No discharge procedures on file. Discharge Instructions [facility] Department of Ophthalmology Post-Operative Instructions First post-operative [...] after. You should call FOR AN EMERGENCY. [facility] OPH[facility]OLOGY [address] [place] [phone] Patient Education General Anesthesia WHAT YOU NEED [...] example is signing legal documents. ?? Copyright [employer] 2020 Information is for End User's use only and may not be sold, redistributed or otherwise used for commercial purposes. All illustrations and images included in CareNotes?? are the copyrighted property of [employer] or [employer] The above information is an caterer's aide only. It is not intended as [...] about your condition or care. ?? Copyright [employer] 2020 Information is for End User's use only and may not be sold, redistributed or otherwise used for commercial purposes. All illustrations and images included in CareNotes?? are the copyrighted property of [employer]. or [employer] The above information is an caterer's aide only. It is not intended as medical advice for individual conditions or treatments. Talk to your doctor, nurse or pharmacist before following any medical regimen to see if it is safe and effective for you. Disposition: home Follow-up: tomorrow, call if problems. Franco Martinez MD 07/03/2020 3:38 PM PAN MIXER documented in this encounter Discharge Instructions * Discharge Instructions* Christopher Thakur RN - 07/03/2020 3:24 PM WET PAN MIXER Images from the original note were not included. [facility] Department of Ophthalmology Post-Operative Instructions First post-operative [...] after. You should call FOR AN EMERGENCY. [facility] OPHTHAL[facility]Y [address] [place] [address] Patient Education General Anesthesia WHAT YOU NEED [...] example is signing legal documents. ?? Copyright [employer] 2020 Information is for End User's use only and may not be sold, redistributed or otherwise used for commercial purposes. All illustrations and images included in CareNotes?? are the copyrighted property of [employer]. or [employer] The above information is an caterer's aide only. It is not intended as [...] about your condition or care. ?? Copyright [employer] 2019 Information is for End User's use only and may not be sold, redistributed or otherwise used for commercial purposes. All illustrations and images included in CareNotes?? are the copyrighted property of [employer] or [employer] The above information is an caterer's aide only. It is not intended as medical advice for individual conditions or treatments. Talk to your doctor, nurse or pharmacist before following any medical regimen to see if it is safe and effective for you. PAN MIXER documented in this encounter Medications at Time [...] MG/0.5ML injectionIndications:Type 2 Diabetes Mellitus every Wednesday11/02/19 escitalopram (LEXAPRO) 20 MG tablet Take 20 [...] file Gets together: Not on file Attends cheondoism service: Not on file Active member of [...] physical. Fidel Moss MD 07/03/2020 12:53 PM PAN MIXER documented in this encounter OR Notes * [...] above. Fidel Moss MD 07/03/2020 10:11 PM PAN MIXER documented in this encounter Plan of Treatment Upcoming Encounters Date Type Department Care Team (Late st Contact Info) Description 06/07/2024 1:00 PM WET PAN MIXER Office Visit [facility] - Ophthalmology [address] [place] [phone] [place] [address] [place] [address] [place] [phone] 06/23/2024 2:00 PM WET PAN MIXER Office Visit [facility]mology [address] [place] [phone] Fiedl Moss MD [address] [place] [phone] documented as of this encounter Procedures Procedure Name Priority Date/Time Associated Diagnosis Comments INSERTION AQUEOUS (GLAUCOMA) SHUNT TO EXTRAOCULAR RESERVOIR 07/03/2020 1:29 PM WET PAN MIXER Secondary glaucoma, unspecified glaucoma stage, unspecified laterality Special Needs SUPINE, GENERAL WITH LOCALAhmed implant right eye and dexamethasone subconjunctival injection, possible additional pars plana vitrectomy with tube placement in the vitreous cavity, strongly prefer general anesthesia in this monocular patient to reduce need for extensive periocular HCG URINE QUALITATIVE - POCT (IP) INTERFACED Routine 07/03/2020 11:53 AM WET PAN MIXER HCG URINE QUAL POCT NOTIFICATION STAT 07/03/2020 11:51 AM WET PAN MIXER Pre-op testing documented in this encounter Results * HCG URINE QUALITATIVE - POCT (IP) INTERFACED (07/03/2020 11:53 AM WET PAN MIXER) HCG Qual Urine Negative Negative 07/03/2020 12:00 PM WET PAN MIXER [facility] Urine URINE / Unknown 07/03/2020 1 1:53 AM WET PAN MIXER 07/03/2020 12:00 PM WET PAN MIXER Fidel Moss MD LAB - POINT OF CARE ORDERABLES [facility] [address] [place] [address], [facility] [phone] * HCG URINE QUAL POCT NOTIFICATION (07/03/2020 11:51 AM WET PAN MIXER) Comment Notification Label Only - See Separate Report 07/03/2020 1:01 PM WET PAN MIXER [facility] Urine URINE / Unknown 07/03/2020 1 1:51 AM WET PAN MIXER 07/03/2020 11:55 AM WET PAN MIXER Fidel Moss MD LAB - URINALYSIS ORD ERABLES [address] [address], [facility] [phone] documented in this encounter Visit Diagnoses Diagnosis Pre-op testing Preoperative examination, unspecified documented in this encounter [...] of normal saline every 8 hours., Pre-op cyclopentolate (CYCLOGYL) 2% ophthalmic solution 1 drop, Right Eye, PRE-OP MULTIPLE, 3 doses, Starting on Wed07/03/20 at 1150, Until Wed07/03/20 at 1224, Pre-op $ Given 07/03/2020 12:24 PM WET PAN MIXER 1 drop $ Given 07/03/2020 12:16 PM WET PAN MIXER 1 drop $ Given 07/03/2020 12:05 PM WET PAN MIXER 1 drop ketorolac (TORADOL) injection 15 mg 15 mg, Intravenous, ONCE PRN, pain and discomfort, Starting on Wed07/03/20 at 1439, Until Wed07/03/20 at 1704, For pain and discomfort, if not given in OR., PACU $ Given 07/03/2020 3:10 PM WET PAN MIXER 15 mg lactated ringers infusion at 75 mL/hr, Intravenous, CONTINUOUS, Starting on Wed07/03/20 at 1200, Until Wed07/03/20 at 1704, Pre-op $ New Bag/Syringe 07/03/2020 12:23 PM WET PAN MIXER 75 mL/hr 75 mL/hr lidocaine (AKTEN) 3.5 % ophthalmic gel GEL 1 drop 1 drop, Right Eye, PRE-OP ONCE, 1 dose, On Wed07/03/20 at 1200, Pre-op $ Given 07/03/2020 1:07 PM WET PAN MIXER 1 drop phenylephrine (MYDFRIN) 2.5% ophthalmic solution 1 drop, Right Eye, PRE-OP MULTIPLE, 3 doses, Starting on Wed07/03/20 at 1150, Until Wed07/03/20 at 1223, Pre-op $ Given 07/03/2020 12:23 PM WET PAN MIXER 1 drop $ Given 07/03/2020 12:16 PM WET PAN MIXER 1 drop $ Given 07/03/2020 12:05 PM WET PAN MIXER 1 drop tropicamide (MYDRIACYL) 1% ophthalmic solution 1 drop, Right Eye, PRE-OP MULTIPLE, 3 doses, Starting on Wed07/03/20 at 1150, Until Wed07/03/20 at 1224, Pre-op $ Given 07/03/2020 12:24 PM WET PAN MIXER 1 drop $ Given 07/03/2020 12:16 PM WET PAN MIXER 1 drop $ Given 07/03/2020 12:05 PM WET PAN MIXER 1 drop documented in this encounter Active and Recently Administered Medications Times are shown in WET PAN MIXER. Scheduled Medication Order 07/01/2020 07/02/2020 07/03/2020 0.9% [...] RN)1216 ($ Given - Provider: Jacinta Thomson RN)1223 ($ Given - Provider: Jacinta Thomson RN) tropicamide (MYDRIACYL) 1% ophthalmic solution (COMPLETED) 1 drop, Right Eye, PRE-OP MULTIPLE, 3 doses, Starting on Wed07/03/20 at 1150, Until Wed07/03/20 at 1224, Pre-op 1205 ($ Given - Prov ider: Jacinta Thomson RN)1216 ($ Given - Provider: Jacinta Thomson RN)1224 ($ Given - Provider: Jacinta Thomson RN) Continuous Medication Order 07/01/2020 07/02/2020 07/03/2020 lactated ringers infusion at 75 mL/hr, Intravenous, CONTINUOUS, Starting on Wed07/03/20 at 1200, Until Wed07/03/20 at 1704, Pre-op 1223 ($ New Bag/Syri nge - Provider: Jacinta Sowders, RN)1549 (Stopped - Provider: Christopher Thakur RN) [...] Adam, SANJANA)1401 ($ Given - Provider: Danita Adam RN) dexamethasone (DECADRON) injection (CANCELED) PRN, Starting [...] Given - Prov ider: Danita Adam RN) osnkbsww-jyjsjkfqn-tmhibqrr (MAXITROL) ophthalmic ointment (CANCELED) PRN, Starting on Wed07/03/20 at 1437, Until Wed07/03/20 at 1451, Intra-op 1437 ($ Given - Prov ider: Franco Martienz MD) nepafenac (NEVANAC) 0.1 % ophth suspension [...] Pre-op documented in this encounter Care Teams Patient Accounts Specialist Relationship Specialty Start Date End Date Martha Lawrence MD PCP - General 03/21/20 documented as of this encounter
--- OUTSIDE RECORDS SUMMARY | 2024-05-13 22:21 | XMS_ITS | Encounter Summary ---
Author Organization [facility] Address [address] [place] [address] Care Team Providers Care Electrical Assemblies Supervisor Name Role Phone Martha Lawrence MD Primary Care Provider [phone] Reason for Visit * Auth/Cert Specialty Diagnoses / Procedures Referred By Joelle lopez Referred To Contact Diagnoses Secondary glaucoma, right, mild stage Secondary glaucoma, mild stage, right Procedures AQUEOUS EYE SHUNT WITH GRAFT Referral ID Status Reason Start Date Expiration Date Visits Re quested Visits Authorized [id number] 1 1 Encounter Details Date Type Department Care Team (Late st Contact Info) Description 09/23/2020 7:34 AM CDT Anesthesia Event [facility] OR VIRGIL/AMB SURGERY [address] [place] [phone] Neyda Beavers MD [address] [facility] [place]PT [place] [address] Anesthesia Record Procedure Summary Procedure Name Responsible Anesthesiologist Anesthesia Start Time Anesthesia Stop Time Ahmed tube revision right eye (shortening the tube) (Right: Eye) Neyda Beavers MD 09/23/20 0734 09/23/20 0843 Events Date Time Event Comment 09/23/2020 0734 Pt In Room 0734 An Start 0734 An Start Data 0740 Anes Timeout 0741 PT Reassessment 0742 Induction 0743 An LMA 0750 Anes Ready 0755 Time Out Anesthesia part icipated in timeout at the time documented in the record by nursing 0756 Proc Start 0756 Incision 0823 Proc Stop 0826 An Emergence 0829 An LMA Removed 0838 an stop data 0838 Pt out of Room 0838 ANPTO2 0842 Handoff 0843 An Stop 0843 Electnc Sig 0850 Meds Name Total midazolam 2 mg/2mL injection 2 mg fentaNYL 100 mcg/2ml injection 50 mcg propofol 200mg/20mL injection 200 mg lidocaine PF 2% 80 mg LR (Lactated ringers) 700 mL * Agents Name Exp. Sevoflurane Exp. N2O O2 Flow - Auxiliary O2 Insp. Sevoflurane * Blood No blood administrations on file. Lines, Drains, and Airways Type Details Placement Removal Peripheral IV Date: 09/23/20; Time : 712; Orientation: Left, Posterior; Placed By: krystyna abraham 09/23/20 0713 by Krystyna Velasquez RN 09/23/20 0938 by Christopher Thakur RN LMA 09/23/20; 0743 (created via procedure documentation); REBA Mei; 100% O2; Standard IV; easy mask; LMA; 3.0; Direct visualization, Chest Auscultation, CO2 Monitor; 09/23/20; 0829 09/23/20 0743 by Gregory Trejo APRN-CRNA 09/23/20 0829 by Gregory Trejo APRN-CRNA Procedural Site (Incision) 09/23/20; 0801; Right; Eye; 09/23/20; 0911 09/23/20 0801 by Lance Frias RN 09/23/20 0911 by Christopher Thakur RN documented in this encounter Social History [...] No 09/06/2020 documented as of this encounter Progress Notes * Nyeda Beavers MD - 09/23/2020 10:02 AM CDT ANESTHESIA POSTOP EVALUATION NOTE Procedure: Ahmed tube revision right eye (shortening the tube) (Right Eye) Cesario Jewell is a 40 year old female Patient Vitals for the past 6 hrs: BP Temp Pulse Resp SpO2 Pain Rating Score #1 Pain Scale/Observation 09/23/20 0656 138/87 97.9 ??F (36.6 ??C) 85 14 98 % -- -- 09/23/20 0840 130/77 97.8 ??F (36.6 ??C) 88 14 98 % 0 N 09/23/20 0845 114/66 -- 84 15 98 % -- -- 09/23/20 0850 112/65 -- 81 14 98 % -- -- 09/23/20 0855 132/81 -- 104 13 98 % -- -- 09/23/20 0900 140/82 -- 98 14 100 % -- -- 09/23/20 0905 143/82 -- 99 14 100 % -- -- 09/23/20 0910 144/91 -- 99 13 96 % -- -- 09/23/20 0915 139/88 -- 97 14 97 % -- -- 09/23/20 0919 -- -- -- -- -- 8 -- 09/23/20 0930 144/87 -- 94 14 98 % -- -- Anesthesia Type: general LMA Pre-op Diagnosis Codes: * Secondary glaucoma, right, mild stage [H40.51X1] Mental Status: awake, alert, orientated, sufficiently recovered [...] from Anesthesia Care COMPLICATIONS: No complications documented. * Neyda Beavers MD - 09/22/2020 10:27 AM CDT ANESTHESIA PREOPERATIVE EVALUATION NOTE Procedure: Ahmed tube revision right eye (shortening the tube) (Right Eye) Vitals: No data found. ANESTHESIA PRE-EVALUATION NOTE Physical Exam: Orientation X3 Airway/Mallampati Score: II Mouth Opening Distance: 3 fingerwidths Neck ROM: full TM Distance: > 3 FB Teeth: poor dentition and Other - comments Heart: regular rate rhythm and normal - S1 S2 Lungs: normal and clear to ausculation bilaterally Abdomen Exam: normal and obese Physical Exam Additional Comments: 2 Chipped teeth, missing 32. Review of Systems: GERD: Yes, well controlled Diagnostic Tests: Lab(s) reviewed: Yes. ANESTHESIA PLAN ASA Score: 3 NPO Status: No solids since midnight Anesthesia Plan: general and general LMA Planned Induction: intravenous Planned Postop Destination: OPS and PACU Anesthetic plan was discussed with: patient Anesthetic Plan discussion was: Consented The patient's procedural Anesthetic Plan was discussed with the HOUSEPERSON. I have reviewed the patient's chart I [...] This list must include ALL known prescriptions, nhad-skd-mllpdczh, herbals, and vitamin/mineral/dietary (nutritional) supplements AND must contain the medications' name, dosages, frequency and route of administration BMI, Height, Weight Tobacco History Estimated body mass index is 39.48 kg/m?? as calculated from the following: Height as of this encounter: 1.626 m (5' 4 ). Weight as of this encounter: 104.3 kg (230 lb). Social History Tobacco Use Smoking Status Never Smoker Smokeless Tobacco Never Used Alcohol History Drug History Social History Substance and Sexual Activity Alcohol Use Never Social History Substance and Sexual Activity Drug Use Never Outpatient Medications: Inpatient Medications: No outpatient medications have been marked as taking for the 09/23/20 encounter (Hospital Encounter). No current facility-administered medications for this encounter. Allergies: Allergies Allergen Reactions ??? Penicillins Urticaria, Rash and Skin Reactions ??? Sulfa Drugs Urticaria, Rash and Itching ??? Sulfacetamide Urticaria, Rash, Eye Discomfort and Eye Itching ??? Povidone-Iodine Eye Redness and Eye Itching ??? Oxycodone-Acetaminophen Diarrhea, Nausea and/or Vomiting and Vomiting Relevant Problems No relevant active problems Problem List: Patient Active Problem List Diagnosis Date Noted ??? PTSD (post-traumatic stress disorder) 09/06/2020 Priority: Not Prioritized ??? Congenital cataract of both eyes Priority: [...] Nasal saline spray (Simply saline, [place], [place], [place]) 2 second sprays or 2 squeezes into each nostril while looking down over the sink, do not need to sniff in. Follow up in 6 months, earlier with any ear drainage 07/06/2019 T-tubes placed in Office ??? Acute recurrent maxillary sinusitis 05/26/2019 Priority: Not Prioritized Last Assessment & Plan: Take Cefdinir with a meal daily Nasal saline spray (Simply saline, [place], [place], [place]) 2 second sprays or 2 squeezes into [...] Nasal saline spray (Simply saline, [place], [place], [place]) 2 second sprays or 2 squeezes into [...] BENIGN HYPERTENSION ??? Major depressive disorder, recurrent 09/23/2013 Priority: Not Prioritized DEPRESSIVE DISORDER NEC ??? Impaired fasting glucose 09/23/2013 Priority: Not Prioritized IMPAIRED FASTING GLUCOSE ??? 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/23/2013 Priority: Not Prioritized MIXED HYPERLIPIDEMIA ??? Iron deficiency anemia 02/18/2012 Priority: Not Prioritized Iron deficiency anemia ??? Secondary glaucoma, mild stage, right 06/21/2020 Patient with history of congenital glaucoma with [...] Fidel Moss MD 06/21/2020 10:19 AM ??? Anophthalmos of left eye Patient with history of retinal detachment that occurred soon after congenital cataract extraction left eye in the patient has subsequently undergone enucleation with prosthesis. Fidel Moss MD 06/21/2020 10:21 AM Medical History: Past Medical History: Diagnosis Date [...] pars plana vitrectomy of the right eye Lab Results: Recent Labs Component Name 07/03/20 1153 HCGURINE Negative Recent Labs Base Name 09/06/20 0632 [id number] SPECIMENTYPE Arterial/Capillary Recent Labs Component Name 09/06/20 0031 WBC 8.8 RBC 5.89* HCT 43.3 HGB 13.9 PLTCOUNT 439* MCV 73.5* MCH 23.6* MCHC 32.1 MPV 10.1 Recent Labs Component Name 09/06/20 0031 SODIUM 135* POTASSIUM 3.9 CALCIUM 9.1 CHLORIDE 101 CO2 25 GLUCOSE 76 BUN 12 CREATININE 1.17* Recent Labs Component Name 09/06/20 0031 TSH 2.516 No results found for requested labs within last 120 days. Recent Labs Result Component Current Result Albumin 4.4 (09/06/2020) Alkaline Phosphatase 76 (09/06/2020) ALT 11 (09/06/2020) Anion Gap 9 (09/06/2020) AST 17 (09/06/2020) Bilirubin Total 1.0 (09/06/2020) eGFR by MDRD 51 (L) (09/06/2020) documented in this encounter Procedure Notes * Gregory Trejo APRN-CRNA - 09/23/2020 7:49 AM CDTAssociated Order(s): LMA Placement LMA Placement Procedure/LDA Note: LMA Insertion Date/Time: 09/23/2020 7:43 AM Procedure: LMA. Pretreatment: 100% O2 Induction: standard IV Patient position: sniffing. Mask Ventilation: easy Type: LMA Size: 3 Number of Attempts: 1. Cuff volume (mL): 5 Placement verified by: direct visualization, chest auscultation and CO2 monitor Dentition unchanged? Yes Procedure Start Time: 09/23/2020 7:43 AM. Procedure End Time: 09/23/2020 8:29 AM. Procedure Total Time: 46 minutes. Staff Section Anesthesia Provider: Gregory Trejo APRN-CRNA, Performed the procedure documented in this encounter Miscellaneous Notes * Anesthesia Transfer of Care - Gregory Trejo APRN-CRNA - 09/23/2020 8:43 AM CDT ANESTHESIA TRANSFER OF CARE NOTE Today's Date: 09/23/2020 Date of : 1980 Patient: Micole V Miles Procedure(s): Ahmed tube revision right eye (shortening the tube) Surgeon(s): Primary: Fidel Moss MD Resident - Assisting: Cherrie Arriola MD Preop Diagnosis: Pre-op Diagnois: * Secondary glaucoma, right, mild stage [H40.51X1] Pre-op Meds (From admission, onward) Start Stop Status Route Frequency Ordered 09/23/20 0641 0.9% NaCl injection 1-10 mL -- Dispensed IK PRN 09/23/20 0641 09/23/20 0645 0.9% NaCl injection 3 mL -- Dispensed IK EVERY 8 HOURS 09/23/20 0641 09/23/20 0641 cyclopentolate (Cyclogyl) 2% ophthalmic solution -- Verified RIGHT EYE PRE-OP MULTIPLE 09/23/20 0641 09/23/20 0815 dexamethasone (Decadron) injection 8 mg -- Verified IV ONCE PRN 09/23/20 0816 09/23/20 0751 fentaNYL (PF) (Sublimaze) injection -- Sent IV PRN 09/23/20 0751 09/23/20 0815 fentaNYL (PF) (Sublimaze) injection 25 mcg -- Verified IV EVERY 10 MIN PRN 09/23/20 0816 09/23/20 0815 ketorolac (Toradol) injection 30 mg 09/28 0814 Verified IV ONCE PRN 09/23/20 0816 09/23/20 0645 lactated ringers infusion 09/23 0644 Dispensed IV CONTINUOUS 09/23/20 0641 09/23/20 0733 lactated ringers infusion -- Sent IV CONTINUOUS PRN 09/23/20 0736 09/23/20 0742 lidocaine hcl (PF) (Xylocaine Mpf) 2 % injection -- Sent INFILTRATION PRN 09/23/20 0751 09/23/20 0815 metoclopramide (Reglan) injection 10 mg -- Verified IV ONCE PRN 09/23/20 0816 09/23/20 0733 midazolam (Versed) injection -- Sent IV PRN 09/23/20 0736 09/23/20 0816 ondansetron (Zofran) injection 4 mg -- Verified IV ONCE PRN 09/23/20 0816 09/23/20 0641 phenylephrine (Mydfrin) 2.5% ophthalmic solution -- Verified RIGHT EYE PRE-OP MULTIPLE 09/23/20 0641 09/23/20 0742 propofol (Diprivan) injection -- Sent IV PRN 09/23/20 0751 09/23/20 0641 tropicamide (Mydriacyl) 1% ophthalmic solution -- Verified RIGHT EYE PRE-OP MULTIPLE 09/23/20 0641 Post-op Diagnosis: * Secondary glaucoma, right, mild stage [H40.51X1] . Allergies Allergen Reactions ??? Penicillins Urticaria, Rash and Skin Reactions ??? Sulfa Drugs Urticaria, Rash and Itching ??? Sulfacetamide Urticaria, Rash, Eye Discomfort and Eye Itching ??? Povidone-Iodine Eye Redness and Eye Itching ??? Oxycodone-Acetaminophen Diarrhea, Nausea and/or Vomiting and Vomiting Vitals: Patient Vitals for the past 3 hrs: BP Temp Pulse Resp SpO2 09/23/20 0840 -- (P) 97.8 ??F (36.6 ??C) -- -- -- 09/23/20 0656 138/87 97.9 ??F (36.6 ??C) 85 14 98 % Lines, Drains, and Airways Type Details Placement Removal Peripheral IV Date: 09/23/20; Time: 712; Orientation: Left, Posterior; Location: Hand; Placed By: krystyna abraham; Gauge: 20 Gauge; Locals: Injectable 09/23/20 07 by Krystyna Velasquez RN LMA 09/23/20; 07 (created via procedure documentation); REBA Mei; 100% O2; Standard IV; easy mask; LMA; 3.0; Direct visualization, Chest Auscultation, CO2 Monitor; 09/23/20; 0809/23/20 0743 by Gregory Trejo APRN-CRNA 09/23/20 08 by Gregory Trejo APRN-CRNA Intraprocedure I/O Totals Intake LR (Lactated ringers) 700.00 mL Total Intake 700 mL Output Estimated Blood Loss 1 mL Total Output 1 mL Net Net Volume 699 mL Patient Transfer Location: PACU Transport Airway: [...] understanding of report from the receiving PACUteam. REBA Mei documented in this encounter Plan of Treatment Upcoming Encounters Date Type Department Care Team (Late st Contact Info) Description 06/07/2024 1:00 PM DOCUMENT CONTROL ASSISTANT Office Visit [facility] - Ophthalmology [address] [place] [phone] Chrystal Roa MD [address] [place] [address] [place] [phone] 06/23/2024 2:00 PM DOCUMENT CONTROL ASSISTANT Office Visit [facility] - Ophthalmology [address] [place] [phone] Fidel Moss MD [address] [place] [phone] documented as of this encounter Procedures Procedure Name Priority Date/Time Associated Diagnosis Comments LARYNGEAL MASK AIRWAY Routine 09/23/2020 7:49 AM CDT documented in this encounter Results * LARYNGEAL MASK AIRWAY (09/23/2020 7:49 AM CDT) Narrative Gregory Trejo APRN-CRNA - 09/23/2020 7:49 AM CDT Gregory Trejo APRN-CRNA ? 09/23/2020 ??8:29 AM LMA Placement Procedure/LDA [...] ??minutes. Staff Section ?? Anesthesia Provider: Gregory Trejo, [place]-HOUSEPERSON, Performed the procedure Neyda Beavers MD GENERAL ANESTHESIA ORDERABLES documented in this encounter Visit Diagnoses Not on filedocumented in this encounter Administered Medications Inactive Administered Medications - up to 3 most recent administrations Medication Order MAR Action Action Date Dose Rate Site fentaNYL (PF) (Sublimaze) injection Intravenous, PRN, Starting on Wed09/23/20 at 0751, Until Wed09/23/20 at 0843, Anesthesia Intra-op $ Given 09/23/2020 8:11 AM CDT 25 mcg $ Given 09/23/2020 7:51 AM CDT 25 mcg lactated ringers infusion Intravenous, CONTINUOUS PRN, Starting on Wed09/23/20 at 0733, Until Wed09/23/20 at 0843, Anesthesia Intra-op $ New Bag/Syringe 09/23/2020 7:33 AM CDT lidocaine hcl (PF) (Xylocaine Mpf) 2 % injection Infiltration, PRN, Starting on Wed09/23/20 at 0742, Until Wed09/23/20 at 0843, Anesthesia Intra-op $ Given 09/23/2020 7:42 AM CDT 80 mg midazolam (Versed) injection Intravenous, PRN, Starting on Wed09/23/20 at 0733, Until Wed09/23/20 at 0843, Anesthesia Intra-op $ Given 09/23/2020 7:33 AM CDT 2 mg propofol (Diprivan) injection Intravenous, PRN, Starting on Wed09/23/20 at 0742, Until Wed09/23/20 at 0843, Anesthesia Intra-op $ Given 09/23/2020 7:42 AM CDT 200 mg documented in this encounter Care Teams Electrical Assemblies Supervisor Relationship Specialty Start Date End Date Martha Lawrence MD PCP - General 03/21/20 documented as of this encounter
--- OUTSIDE RECORDS SUMMARY | 2024-05-13 22:21 | XMS_ITS | Encounter Summary ---
Author Organization [facility] Address [address] [facility] [place] [address] Care Team Providers Care Entertainment Dancer Name Role Phone Martha Lawrence MD Primary Care Provider [phone] Reason for Visit * Reason Comments Consultation Encounter Details Date Type Department Care Team (Late st Contact Info) Description 03/26/2020 2:15 PM TAKE OFF WORKER Office Visit [facility] [address] [place] [phone] Marc Baumann MD [address] [place] [address] [place] [phone] Glaucoma, unspecified glaucoma type, unspecified laterality (Primary Dx) Social History Tobacco Use Types Packs/Day Years Used Date Smoking Tobacco: Never Sex and Gender Information Value Date Recorded Sex Assigned at Not on file Gender Identity Not on file Sexual Orientation Not on file documented as of this encounter Progress Notes * Nola Tyler MD - 03/26/2020 2:47 PM CST Ophthalmology Office Note Subjective: Cesario Jewell is an 40 year old Chief Complaint Patient presents with ??? Consultation New patient here for blurred vision in the right eye, right eye uncontrolled movement that started 03/17. There is a spot in her center vision that looks like a smudge on glasses. It is dull brown with a sol edge to it. She can see through it--it is not a black/dark spot. Onset not associated with any FOL. When she first gets out of bed and climbs stairs, she can see a quick flash of her veins in her eyea few times for up to a minute. H/O congenital cataracts removed at 6 months old, detached the left retina which left her with light perception vision. 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 S/p enucleation w/prosthesis OS 5 years ago. Went to the ED at [facility] 10/10 for white halos and milky vision, pressure was elevated (50s) and she was started on Dorzolamide and Alphagan in addition to her Latanaprost. She was then evaluated by Dr. Olivares at [facility] and told her eye was stable, nothing wrong with the eye. Was then sent to PCP for possible neuro work-up, spoke to Dr. Adair who told her to get a glaucoma evaluation herebefore she would see her. Has been seeing Dr. Pappas (medical coding specialist) at [facility], last VF 6 months ago. Has an MRI scheduled at 10 am. Had a headache yesterday for about 1 hour after morning exercises, resolved on its own. No pain/pressure. Current Outpatient Medications Medication Sig Dispense Refill [...] Right Left Dist sc pros Dist cc 20/40 +1 Dist ph cc 20/30 -1 Correction: Glasses Tonometry (Tonopen, 2:17 PM) Right Left Pressure 19 pros Pupils Dark Light Shape React Right 4 3 Round Brisk Left pros Visual Bay Left Right Full Restrictions Total superior temporal, inferior temporal, superior nasal, inferior nasal deficiencies Extraocular Movement Right Left Full, possible nystagmus prosthesis -- -- -- -- -- -- -- -- -- -- -- -- -- -- -- -- Dilation Right eye: 1.0% Mydriacyl, 2.5% Slade Synephrine @ 3:01 PM Slit Lamp and Fundus Exam External Exam Right Left External Normal Normal Slit Lamp Exam Right Left Lids/Lashes Normal prosthetic in place, no swelling, discharge or e/o infection Conjunctiva/Sclera White and quiet prosthetic in place Cornea Clear Anterior Chamber Deep and quiet Iris Round and pharm dil Lens sulcus IOL, anterior capsular phimosis Vitreous syneresis, floaters Fundus Exam Right Left Disc Normal C/D Ratio 0.5 Macula Normal Vessels Normal Periphery Normal where visualized howeber difficult views due to phimosis Refraction Wearing Rx Sphere Cylinder [place] Right -3.50 +0.75 098 Left bal Age: 3yrs Type: SVL Studies 03/27/2020: OCT: OD - macula wnl (difficulty obtaining images however due to vitreous floater); RNFL thinning (75) mostly superotemporal Assessment/Plan: #Congenital glaucoma OD #s/p CE OU as a child; aphakic until 10yrs ago -has been on Latanoprost QHS OD for years -was seen in [facility] 02/2020 with acutely elevated IOP (50s) - was started on Cosopt BID OD, Brimonidine TID OD in addition to her existing latanoprost - IOP 19 today -was since evaluated at [facility] (established pt of Dr. 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 Pappas -MRI as scheduled -monocular precautions including glasses with protective lenses -RTC 1 month for repeat DFE OD vs OK to follow with existing ophthalmologists Nola Tyler MD Ophthalmology PGY-3 OFF WORKER Associated attestation - Marc Baumann MD - 03/27/2020 5:01 PM TAKE OFF WORKER I have examined the patient in person [...] departure. In addition, I note the following: PVD OD, Pseudophakia OD (broken capsule, sulcus IOL), monocular status: difficult peripheral exam due to PCO. Patient c/o floater OD. Retina flat, but superior vitreous condensation visible. Follow up with retina, next available. RD warnings reviewed with patient. Marc Baumann MD, PhD documented in this encounter Plan of Treatment Upcoming Encounters Date Type Department Care Team (Late st Contact Info) Description 06/07/2024 1:00 PM TAKE OFF WORKER Office Visit [facility] - Ophthalmology [address] [place] [phone] Chrystal Roa MD [address] [place] [address] [place] [phone] 06/23/2024 2:00 PM TAKE OFF WORKER Office Visit [facility] - Ophthalmology [address] [place] [phone] Fidel Moss MD [address] [place] [phone] documented as of this encounter Procedures Procedure Name Priority Date/Time Associated Diagnosis Comments OPH OCT TEST [facility] Routine 03/26/2020 1:04 PM TAKE OFF WORKER Glaucoma, unspecified glaucoma type, unspecified laterality documented in this encounter Results * OCT (03/26/2020 1:04 PM TAKE OFF WORKER) Anatomical Region Laterality Modality Other 03/26/2020 1:04 PM TAKE OFF WORKER Kasey Brar MD OPHTHALMOLOGY SERV ICES ORDERABLES documented in this encounter Visit Diagnoses Diagnosis Glaucoma, unspecified glaucoma type, unspecified laterality- Primary documented in this encounter Care Teams Entertainment Dancer Relationship Specialty Start Date End Date Martha Lawrence MD PCP - General 03/21/20 documented as of this encounter
--- OUTSIDE RECORDS SUMMARY | 2024-05-13 22:21 | XMS_ITS | Encounter Summary ---
Author Organization [facility] Address [address] [place] [address] Care Team Providers Care Field Broomer Name Role Phone Martha Lawrence MD Primary Care Provider [phone] Encounter Details Date Type Department Care Team (Late st Contact Info) Description 09/19/2020 Orders Only [facility] Standard [address] [place], [place] [phone] Shade Reddy MD [address] [place], [place] [phone] Social History Tobacco Use Types Packs/Day Years [...] st Contact Info) Description 06/07/2024 1:00 PM DATA SCIENCE AND IOT MANAGER Office Visit [facility] - Ophthalmology [address] [place] [phone] Chrystal Roa MD [address] [place] [address] [place] [phone] 06/23/2024 2:00 PM DATA SCIENCE AND IOT MANAGER Office Visit [facility] - Ophthalmology [address] [place] [phone] Fidel Moss MD [address] [place] [phone] documented as of this encounter Visit Diagnoses Not on filedocumented in this encounter Care Teams Field Broomer Relationship Specialty Start Date End Date Martha Lawrence MD PCP - General 03/21/20 documented as of this encounter
--- OUTSIDE RECORDS SUMMARY | 2024-05-13 22:21 | XMS_ITS | Encounter Summary ---
Author Organization [facility] Address [address] [facility] [place] [address] Care Team Providers Care Cooling Pan Tender Name Role Phone Martha Lawrence MD Primary Care Provider [phone] Reason for Visit * Reason Comments Post-Op day 1 Encounter Details Date Type Department Care Team (Latest Contact Info) Description 04/19/2020 9:00 AM OVERHEAD IRRIGATOR Office Visit [facility] [address] [place] [phone] Chrystal Roa MD [address] [place] [address] [place] [address] Status post vitreoretinal surgery, right eye (Primary Dx); Pseudophakia; Glaucoma associated with ocular disorder, indeterminate stage, [...] as of this encounter Progress Notes * Chrystal Roa MD - 04/24/2020 9:37 AM CST Ophthalmology Office Note Subjective: Chief Complaint Patient presents with ??? Post-Op Past History: Past Medical History: Diagnosis Date [...] file Gets together: Not on file Attends holiness service: Not on file Active member of [...] ??? acetaZOLAMIDE (DIAMOX) 250 MG tablet Take 2 tablets by mouth once for 1 dose 2 tablet 0 ??? albuterol HFA (PROVENTIL;VENTOLIN;PROAIR) 108 (90 Base) [...] by mouth once daily ??? lamoTRIgine (LAMICTAL) 100 MG tablet Take [...] 10 mg by mouth once daily ??? moxifloxacin (VIGAMOX) 0.5 % ophthalmic solution Instill 1 drop into right eye 4 times daily for 2 days 0.4 mL 0 ??? omeprazole (PRILOSEC) 20 MG [...] (Snellen - Linear) Right Left Dist cc 20/40-2 Tonometry (Applanation, 9:59 AM) Right Left Pressure 18 Slit Lamp and Fundus Exam External Exam Right Left External Normal Slit Lamp Exam Right Left Lids/Lashes Normal Conjunctiva/Sclera sutured, no leakage Cornea Clear Anterior Chamber 2+ cell & flare Iris flat Lens PCIOL , sulcus lens Vitreous clear Fundus Exam Right Left Disc Normal Macula flat Vessels Normal Periphery 360 attached Studies 04/19/2020 Extended Ophthalmoscopy: OD: Retina flat 360 Assessment/Plan: # POD#1 25 G PPV for visually significant vitreous opacities, Right Eye - vision 20/50, IOP 18 - retina flat / good postop appearance - postop instructions given including how to use the eye drops, and restart glaucoma drops - Will re-check in 1 week #Symptomatic posterior vitreous detachment, right eye - now after surgery -Patient is monocular -Evaluated on 03/27 for worsening flashes. Had PVD OD -Pt had developed significant problems with floaters. It was affecting her daily life and making itdifficult for her to be successful at work. Recently failed a work task due to needing to take additional time to look around area of floater. Is significantly bothered by floaters -Anterior capsular phimosis and poor dilation limiting view to peripheral retina -At this point, given significant effect on daily activities and poor performance at work due to visually significant PVD/ vitreous opacity, recommended PPV ?? #Congenital glaucoma OD -Patient follows with Dr. Pappas at [facility] -IOP 18 on day postop - Restart Alphagan TID, Dorzolamide TID, and latanoprost qHS ?? 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 #Pseudophakia, OD -Anterior capsule phimosis -Monocular precautions -States glasses are polycarbonate Plan: - Pred forte QID OD - Vigamox QID OD - Cyclogyl BID OD - restart Alphagan TID, Drzolamide TID, and Latanoprost QHS OD - Tobradex ointment QHS OD - avoide bending over, heavy lifting, splashing water to the face - Patient was instructed to call and come back in acse of severe pain, swelling, vision loss I reviewed and confirmed the ROS, past histories, and readings. I have personally seen and examinedthe patient, and without resident/fellow. I have personally performed the extended ophthalmoscopy.The final examination findings, image interpretations, and plan as documented in the record representmy personal judgment and conclusions. Chrystal Roa MD Attending, Retina and Uveitis service Date of service: 04/19/2020 HEAD IRRIGATOR documented in this encounter Plan of Treatment Upcoming Encounters Date Type Department Care Team (Late st Contact Info) Description 06/07/2024 1:00 PM OVERHEAD IRRIGATOR Office Visit [facility] - Ophthalmology [address] [place] [phone] Chrystal Roa MD [address] [place] [address] [place] [address] 06/23/2024 2:00 PM OVERHEAD IRRIGATOR Office Visit [facility] - Ophthalmology [facility] [place] [address] Fidel Moss MD [address] [place] [address] documented as of this encounter Visit Diagnoses Diagnosis Status post vitreoretinal surgery, right eye- Primary Other states following surgery of eye and adnexa Pseudophakia Lens replaced by other means Glaucoma associated with ocular disorder, indeterminate stage, right documented in this encounter Care Teams Cooling Pan Tender Relationship Specialty Start Date End Date Martha Lawrence MD PCP - General 03/21/20 documented as of this encounter
--- OUTSIDE RECORDS SUMMARY | 2024-05-13 22:21 | XMS_ITS | Encounter Summary ---
Author Organization [facility] Address [address] [place] [address] Care Team Providers Care Plating Equipment Tender Name Role Phone Martha Larwence MD Primary Care Provider Reason for Visit * Auth/Cert Specialty Diagnoses / Procedures Referred By Joelle lopez Referred To Contact Diagnoses Symptomatic posterior vitreous detachment of right eye Symptomatic posterior vitreous detachment of right eye Procedures VITRECTOMY MECHANICAL PARS PLANA Referral ID Status Reason Start Date Expiration Date Visits Re quested Visits Authorized [id number] 1 1 Encounter Details Date Type Department Care Team (Latest Contact Info) Description 04/18/2020 6:09 AM HOUSE NURSE - 04/18/2020 10:22 AM [facility] Hospital Encounter [facility] OR VIRGIL/AMB SURGERY [address] [place] [phone] Chrystal Roa MD [address] [facility] DEPT [place] [phone] Ophthalmology Discharge Disposition: Home or Self Care [...] Sign Reading Time Taken Comments Blood Pressure 134/84 04/18/2020 9:55 AM HOUSE NURSE Pulse 113 04/18/2020 9:55 AM HOUSE NURSE Temperature 36.9 ??C (98.4 ??F) 04/18/2020 9:55 AM CS T Respiratory Rate 16 04/18/2020 9:55 AM HOUSE NURSE Oxygen Saturation 94% 04/18/2020 9:55 AM HOUSE NURSE Inhaled Oxygen Concentration - - Weight 102.1 kg (225 lb) 04/18/2020 6:35 AM HOUSE NURSE Height 167.6 cm (5' 6 ) 04/18/2020 6:35 AM HOUSE NURSE Body Mass Index 36.32 04/18/2020 6:35 AM HOUSE NURSE documented in this encounter Discharge Summaries * Gavin Tamez MD - 04/18/2020 9:28 AM CST SAME DAY SURGERY DISCHARGE SUMMARY Patient ID: Cesario Jewell [id number] 40 year old 1980 Date of Surgery: [...] Symptomatic posterior vitreous detachment of right eye [[id number]] Eye medications Always wait five minutes between eye medications. Discharge Instructions [facility] Department of Ophthalmology Chrystal Roa M.D. IMMEDIATE [...] the weekend, you will need to call [facility] ([phone]), dial 0 for the surveillance sensor operator, and say you are an eye patient and need to speak with the eye doctor oral and maxillofacial surgeon. They will contact one of the eye doctors who will call you and address your concerns. Again, our [facility]. The address is [address] [place] [address]. Our clinic is located on the Garden Level. If you are driving, you should park on the BLUE SIDE of the parking garage and proceed to the Garden Level of the [facility]. Disposition: home Follow-up: tomorrow 9AM, call if problems. Gavin Tamez MD Ophthalmology Resident 04/18/2020 9:35 AM E NURSE documented in this encounter Discharge Instructions * Discharge Instructions* Mirtha Mandujano RN - 04/18/2020 10:01 AM HOUSE NURSE Images from the original note were not included. [facility] Department of Ophthalmology Chrystal Roa M.D. IMMEDIATE POST-OPERATIVE INSTRUCTIONS: Keep patch and/or shield on overnight. We will remove it tomorrow in clinic. Your appointment is at 9AM tomorrow and will be at our clinic in the [facility], not in the building where [...] the weekend, you will need to call [facility] ([phone]), dial 0 for the surveillance sensor operator, and say you are an eye patient and need to speak with the eye doctor oral and maxillofacial surgeon. They will contact one of the eye doctors who will call you and address your concerns. Again, our clinic is now located in the [facility]. The address is [address] [place] [address]. Our clinic is located on the Garden Level. If you are driving, you should park on the BLUE SIDE of the parking garage and proceed to the Garden Level of the [facility]. Patient Education How to [...] refuse treatment. The above information is an braid pattern setter only. It is not intended as medical advice for individual conditions or treatments. Talk to your doctor, nurse or pharmacist before following any medical regimen to see if it is safe and effective for you. ?? Copyright [employer] 2019 Information is for End User's use only and may not be sold, redistributed or otherwise used for commercial purposes. All illustrations and images included in CareNotes?? are the copyrighted property of [employer] or [employer] E NURSE documented in this encounter Medications at Time [...] of admission: 04/18/2020 Patient ID: Cesario Jewell [id number] 40 year old 1980 Present Illness: Cesario [...] Gavin Tamez MD 75 mL/hr at 04/18/20 07090,000 mL at 04/18/20 0649 Allergies: Penicillins, Sulfacetamide, [...] Gavin Tamez MD Ophthalmology 04/18/2020 7:39 AM E NURSE Associated attestation - Chrystal Roa MD - 04/18/2020 7:50 AM HOUSE NURSE I have personally seen the patient in [...] Gavin Tamez MD - Resident - Assisting Liquid Sugar Melter(s): Gavin Tamez MD Anesthesia Type: general LMA Complications: none Findings: Same EBL: minimal Specimen(s): none Gavin Tamez MD E NURSE * Operative - Chrystal Roa MD - 04/18/2020 8:14 AM CST PREOPERATIVE DIAGNOSIS Visually significant vitreous opacities, Right Eye POSTOPERATIVE DIAGNOSIS Same PROCEDURE PERFORMED 25 G pars plana vitrectomy, Right Eye SURGEON Chrystal Roa M.D. INDIGO VAT TENDER CLOTH Gavin Tamez M.D. INDICATIONS FOR SURGERY Visually [...] and Uveitis service Date of service 04/18/2020 E NURSE documented in this encounter Plan of Treatment Upcoming Encounters Date Type Department Care Team (Late st Contact Info) Description 06/07/2024 1:00 PM HOUSE NURSE Office Visit [facility] - Ophthalmology [address] [place] [phone] Chrystal Roa MD [address] [place] [address] DE[place] [phone] 06/23/2024 2:00 PM HOUSE NURSE Office Visit [facility] - Ophthalmology [address] [place] [phone] iFdel Moss MD [facility] [place] [address] documented as of this encounter Procedures Procedure Name Priority Date/Time Associated Diagnosis Comments VITRECTOMY MECHANICAL PARS PLANA 04/18/2020 8:14 AM HOUSE NURSE Symptomatic posterior vitreous detachment of right eye Special Needs Supine HCG URINE QUAL POCT NOTIFICATION STAT 04/18/2020 6:29 AM HOUSE NURSE Pre-op testing HCG URINE QUALITATIVE - POCT (IP) INTERFACED Routine 04/18/2020 6:26 AM HOUSE NURSE documented in this encounter Results * HCG URINE QUAL POCT NOTIFICATION (04/18/2020 6:29 AM HOUSE NURSE) Comment Notification Label Only - See Separate Report 04/18/2020 8:01 AM HOUSE NURSE [facility] Urine URINE / Unknown 04/18/2020 6 :29 AM HOUSE NURSE 04/18/2020 6:30 AM HOUSE NURSE Chrystal Roa MD LAB - URINALYSIS ORD ERABLES Performing Organization Address City/[facility]/ZIP Co de Phone Number [address] [phone], [facility] [phone] * HCG URINE QUALITATIVE - POCT (IP) INTERFACED (04/18/2020 6:26 AM HOUSE NURSE) HCG Qual Urine Negative Negative 04/18/2020 6:33 AM HOUSE NURSE [facility] Urine URINE / Unknown 04/18/2020 6 :26 AM HOUSE NURSE 04/18/2020 6:33 AM HOUSE NURSE Chrystal Roa MD LAB - POINT OF CARE ORDERABLES Performing Organization Address City/[facility]/ZIP Co de Phone Number [address] [address], [facility] [phone] documented in this encounter Visit Diagnoses Diagnosis Pre-op testing- Primary Preoperative examination, unspecified documented in this encounter [...] 1122, Post-op $ Given 04/18/2020 9:46 AM HOUSE NURSE 650 mg cyclopentolate (CYCLOGYL) 2% ophthalmic solution 1 drop, Right Eye, PRE-OP MULTIPLE, 3 doses, Starting on Coleen 04/18/20 at 0628, Until Coleen 04/18/20 at 0648, Pre-op $ Given 04/18/2020 6:48 AM HOUSE NURSE 1 drop Right Eye $ Given 04/18/2020 6:43 AM HOUSE NURSE 1 drop Ri ght Eye $ Given 04/18/2020 6:37 AM HOUSE NURSE 1 drop Ri ght Eye lactated ringers infusion at 75 mL/hr, Intravenous, CONTINUOUS, Starting on Coleen 04/18/20 at 0630, Until Coleen 04/18/20 at 1122, Pre-op $ New Bag/Syringe 04/18/2020 6:49 AM HOUSE NURSE 1,000 mL 75 mL/hr Right Hand phenylephrine (MYDFRIN) 2.5% ophthalmic solution 1 drop, Right Eye, PRE-OP MULTIPLE, 3 doses, Starting on Coleen 04/18/20 at 0628, Until Coleen 04/18/20 at 0648, Pre-op $ Given 04/18/2020 6:48 AM HOUSE NURSE 1 drop Right Eye $ Given 04/18/2020 6:43 AM HOUSE NURSE 1 drop Ri ght Eye $ Given 04/18/2020 6:37 AM HOUSE NURSE 1 drop Ri ght Eye proparacaine (ALCAINE) ophthalmic solution 1 drop 1 drop, Right Eye, PRE-OP ONCE, 1 dose, On Coleen 04/18/20 at 0630, Pre-op $ Given 04/18/2020 6:38 AM HOUSE NURSE 1 drop Right Eye tropicamide (MYDRIACYL) 1% ophthalmic solution 1 drop, Right Eye, PRE-OP MULTIPLE, 3 doses, Starting on Coleen 04/18/20 at 0628, Until Coleen 04/18/20 at 0648, Pre-op $ Given 04/18/2020 6:48 AM HOUSE NURSE 1 drop Right Eye $ Given 04/18/2020 6:43 AM HOUSE NURSE 1 drop Ri ght Eye $ Given 04/18/2020 6:38 AM HOUSE NURSE 1 drop Ri ght Eye documented in this encounter Active and Recently Administered Medications Times are shown in HOUSE NURSE. Scheduled Medication Order 04/16/2020 04/17/2020 04/18/2020 0.9% [...] on Coleen 12 at 0628, Until Coleen 04/18/20 at 0648, Pre-op 0637 ($ Given - Prov ider: Gypsy Santos RN)0643 ($ Given - Provider: Gypsy Santos RN)0648 ($ Given - Provider: Gypsy Santos, SANJANA) naloxone (NARCAN) injection 0.04 mg 0.04 mg, Intravenous, POST-OP MULTIPLE, Starting on Coleen 04/18/20 at 0942, Until Coleen 04/18/20 at 1122, Notify physician immediately, and mix [...] Santos RN)0643 ($ Given - Provider: Gypsy M Tom, RN)0648 ($ Given - Provider: Gypsy Santos RN) proparacaine (ALCAINE) ophthalmic solution 1 drop (COMPLETED) [...] Santos RN)0643 ($ Given - Provider: Gypsy Santos RN)0648 ($ Given - Provider: Gypsy Santos RN) Continuous Medication Order 04/16/2020 04/17/2020 04/18/2020 lactated ringers infusion at 75 mL/hr, Intravenous, CONTINUOUS, Starting on Coleen 04/18/20 at 0630, Until Coleen 04/18/20 at 1122, Pre-op 0649 ($ New Bag/Syri [...] on Coleen 04/18/20 at 0942, Until Coleen 1220 at 1122, Post-op 0946 ($ Given - Prov ider: Mirtha Mandujano RN) bss PLUS ophthalmic solution (CANCELED) PRN, Starting on Coleen 12 at 0854, Until Coleen 1220 at 0925, Intra-op 0854 ($ Given - Prov ider: Chrystal Roa MD) cyclopentolate (CYCLOGYL) 2% ophthalmic solution (CANCELED) PRN, Starting on Coleen 04/18/20 at 0911, Until Coleen 04/18/20 at 0925, Intra-op 09 ($ Given - Prov ider: Chrystal Roa MD) dexamethasone (DECADRON) injection (CANCELED) PRN, Starting on Coleen 04/18/20 at 0911, Until Coleen 04/18/20 at 0925, Intra-op 910 ($ Given - Prov ider: Chrystal Roa MD - Comment: intraocular injection) diphenhydrAMINE (BENADRYL) injection 25 mg 25 mg, Intravenous, ONCE PRN, Nausea/Vomiting, 1 dose, Starting on Coleen 12 at 0942, Until Coleen 12 at 1122, Third choice, use if first and second choice was ineffective., PACU fentaNYL (PF) (SUBLIMAZE) injection 25 mcg 25 mcg, Intravenous, EVERY 10 MIN PRN, Mild Pain, 4 doses, Starting on Coleen 12 at 0942, Until Coleen 12 at 1122, Maximum total of 4 doses. If patient reaches max total dose, please consult anesthesiologist prior to further administration of pain meds. Hold pain meds if there are signs of hypoventilation., PACU fentaNYL (PF) (SUBLIMAZE) injection 50 mcg 50 mcg, Intravenous, EVERY 10 MIN PRN, Moderate Pain, 4 doses, Starting on Coleen 12 at 0942, Until Coleen 12 at 1122, Maximum total of 4 doses. If patient reaches max total dose, please consult anesthesiologist prior to further administration of pain meds. Hold pain meds if there are signs of hypoventilation., PACU gentamicin (GARAMYCIN) injection (CANCELED) PRN, Starting on Coleen 04/18/20 at 0909, Until Coleen 12 at 0925, Intra-op 09 ($ Given - Prov ider: Chrystal Roa MD - Comment: intraocular injection) HYDROmorphone (DILAUDID) injection 0.5 mg 0.5 mg, Intravenous, EVERY 10 MIN PRN, Severe Pain, 4 doses, Starting on Coleen 1220 at 0942, Until Coleen 12 at 1122, Maximum total of 4 doses If patient reaches max total dose, please consult anesthesiologist prior to further administration of pain meds. Hold pain meds if there are signs of hypoventilation., PACU hydroxypropyl methylcellulose (OCUCOAT) 2 % ophthalmic solution (CANCELED) PRN, Starting on Coleen 12/20 at 0850, Until Coleen 1220 at 0925, Intra-op 0850 ($ Given - Prov ider: Chrystal Roa MD) meperidine (DEMEROL) injection 12.5 mg 12.5 mg, Intravenous, ONCE PRN, shivering, 1 dose, Starting on Coleen 1220 at 0942, Until Coleen 04/18/20 at 1122, PACU moxifloxacin (VIGAMOX) 0.5% ophthalmic solution (CANCELED) PRN, Starting on Coleen 04/18/20 at 0911, Until Colene 12 at 0925, Intra-op 0911 ($ Given - Prov ider: Chrystal Roa MD) ondansetron (ZOFRAN) injection 4 mg 4 mg, Intravenous, ONCE PRN, Nausea/Vomiting, 1 dose, Starting on Coleen 1220 at 0942, Until Coleen 04/18/20 at 1122, First choice, PACU prednisoLONE acetate (PRED FORTE) 1 % ophthalmic suspension (CANCELED) PRN, Starting on Coleen 1220 at 0912, Until Coleen 1220 at 0925, Intra-op 0912 ($ Given - Prov ider: Chrystal Roa MD) prochlorperazine (COMPAZINE) injection 10 mg 10 mg, Intravenous, ONCE PRN, Nausea/Vomiting, 1 dose, Starting on Coleen 1220 at 0942, Until Coleen 1220 at 1122, Second choice, use if first choice was ineffective., PACU tobramycin-dexamethasone (TOBRADEX) ophthalmic ointment (CANCELED) PRN, Starting on Coleen 1220 at [...] Pre-op documented in this encounter Care Teams Plating Equipment Tender Relationship Specialty Start Date End Date Martha Lawrence MD PCP - General 03/21/20 documented as of this encounter
--- OUTSIDE RECORDS SUMMARY | 2024-05-13 22:21 | XMS_ITS | Encounter Summary ---
Author Organization [facility] Address [address] [place] [address] Care Team Providers Care Rag Shredder Name Role Phone Martha Lawrence MD Primary Care Provider [phone] Reason for Visit * Reason Comments Post-Op Encounter Details Date Type Department Care Team (Latest Contact Info) Description 04/24/2020 9:15 AM COMMIS CHEF Office Visit [facility] [address] [place] [phone] Chrystal Roa MD [address] [place] [address] [place] [phone] Ocular hypertension of right eye (Primary Dx); Status post vitreoretinal surgery, right eye; Pseudophakia; Glaucoma associated with ocular disorder, indeterminate [...] on file documented as of this encounter Patient Instructions * Patient Instructions* Chrystal Roa MD - 04/24/2020 9:18 AM COMMIS CHEF [facility] Ophthalmology Located at: [facility] Medicine Ophthalmology [address] [place] [address] Your Visit from 04/24/2020 Follow up Appointment: 1 month - It is important that you follow up with us for the health of your eyes. - If you have trouble making or getting to your appointment please call our clinic Eye Drop Instructions: In the right eye: continue glaucoma drops as before Prednisolone three times a day for 1 week, then twice a day for one week, then once a day for one week, then every other day until gone Cyclogyl once a day Oral Medications: Activity Instructions: Do Not Rub [...] thesemedicines. Phone Number: Week (8am-5pm) - Call [phone] () Evenings, Weekends, or Holidays: Call [phone] and dial [phone] for the lime filter operator. Ask to speak to the eye doctor irrigation equipment installer. They will connect us. IS CHEF documented in this encounter Progress Notes * Chrystal Roa MD - 04/24/2020 9:47 AM CST Ophthalmology Office Note Subjective: Chief Complaint Patient presents with ??? Post-Op Patient returns for 1 day IOP check. S/p PPV OD 04/18/2020. No pain or pressure/KISER today. Vision is stable. Drops: RIGHT EYE Cyclo BID PF TID Moxifloxacin QID Alphagan TID Dorzolamide TID Latanoprost QHS Tobradex VIVEK QHS Oral meds: Diamox 250 mg last night and this morning. Past History: Past Medical History: Diagnosis Date [...] file Gets together: Not on file Attends roman catholic service: Not on file Active member [...] Left Dist sc pros Dist cc 20/40 Dist ph cc 20/30 Correction: Glasses Tonometry (Tonopen, 9:03 AM) Right Left Pressure 12 Tonometry #2 (Applanation, 9:52 AM) Right Left Pressure 9 Pupils Unable to obtain RAPD given monocular status Visual Bay Left Right Restrictions Total superior temporal, inferior temporal, superior nasal, inferior nasal deficiencies Extraocular Movement Right Left Full Full Neuro/Psych Oriented x3: Yes Slit Lamp and Fundus Exam External Exam Right Left External Normal Slit Lamp Exam Right Left Lids/Lashes Normal Conjunctiva/Sclera sutured, no leakage Cornea Clear Anterior Chamber 1+ cell and flare Iris flat Lens PCIOL, sulcus lens Vitreous clear Fundus Exam Right Left Disc Normal Macula flat Vessels Normal Periphery 360 attached Refraction Wearing Rx Sphere Cylinder [place] Right -3.50 +0.75 098 Left bal Type: SVL Studies 04/24/2020: Extended Ophthalmoscopy: OD: retina flat 360 Assessment/Plan: # Ocular hypertension OD - resolved - IOP 12, applanation 9 today, pain resolved - She had forgotten to restart her glaucoma eye drops after surgery - Restarted yesterday - Diamox 500 PO given at clinic yesterday, and also had Diamox 250 last night - Continue eye drops as before, stop diamox ?? #POD#6 s/p 25g PPV OD for visually significant vitreous opacities/PVD (04/18/20) - PPV performed due to significant effect on daily activities and poor performance at work due to PVD -VA 20/30, retina flat ?? #Congenital glaucoma OD -Patient follows with Dr. Pappas??at [facility] -IOP 9 today ?? 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 #Pseudophakia, OD -Anterior capsule phimosis -Monocular precautions -States glasses are polycarbonate ?? Plan: -Continue Alphagan TID, Dorzolamide TID, and latanoprost qHS - Decrease cyclogyl to qday OD - Pred forte TID x 1 week, then BID x 1 week, then daily x 1 week, then QOD - Stop Vigamox tomorrow - Tobradex qhs - RTC in 1 month - Patient was instructed to call and come back in case of severe eye pain, swelling, loss of vision ??I reviewed and confirmed the techs ROS, past histories, and readings. I have personally seen and examined the patient. I have personally performed the extended ophthalmoscopy.The final examination findings, image interpretations, and plan as documented in the record represent my personal judgmentand conclusions. Follow up: 1 month, DFE OD, OCT Oto OD ?? Chrystal Roa MD Attending, Retina and Uveitis service 04/24/2020, 9:58 AM IS CHEF documented in this encounter Plan of Treatment Upcoming Encounters Date Type Department Care Team (Late st Contact Info) Description 06/07/2024 1:00 PM COMMIS CHEF Office Visit [facility] - Ophthalmology [address] [place] [phone] Chrystal Roa MD [address] [place] [address] [place] [phone] 06/23/2024 2:00 PM COMMIS CHEF Office Visit [facility] - Ophthalmology [address] [place] [phone] Fidel Moss MD [address] [place] [phone] documented as of this encounter Visit Diagnoses Diagnosis Ocular hypertension of right eye- Primary Borderline glaucoma with ocular hypertension Status post vitreoretinal surgery, right eye Other states following surgery of eye and adnexa Pseudophakia Lens replaced by other means Glaucoma associated with ocular disorder, indeterminate stage, right documented in this encounter Care Teams Rag Shredder Relationship Specialty Start Date End Date Martha Lawrence MD PCP - General 03/21/20 documented as of this encounter
--- OUTSIDE RECORDS SUMMARY | 2024-05-13 22:21 | XMS_ITS | Encounter Summary ---
Author Organization [facility] Address [address] [place] [address] Care Team Providers Care Senior Business Development Analyst Name Role Phone Martha Lawrence MD Primary Care Provider [phone] Reason for Visit * Auth/Cert Specialty Diagnoses / Procedures Referred By Joelle lopez Referred To Contact Diagnoses Secondary glaucoma, unspecified glaucoma stage, unspecified laterality Secondary glaucoma Procedures INSERTION AQUEOUS (GLAUCOMA) SHUNT TO EXTRAOCULAR RESERVOIR Referral ID Status Reason Start Date Expiration Date Visits Re quested Visits Authorized [id number] 1 1 Encounter Details Date Type Department Care Team (Late st Contact Info) Description 07/03/2020 1:10 PM STEAM TABLE ATTENDANT Anesthesia Event [facility] [address] [place] [phone] Lucila Grajeda MD [facility] new address Gregory Trejo, DUMP GROUNDS CHECKER-[facility] [address], [place] [phone] Anesthesia Record Procedure Summary Procedure Name Responsible Anesthesiologist Anesthesia Start Time Anesthesia Stop Time Ahmed implant right eye and dexamethasone subconjunctival injection, possible additional pars plana vitrectomy with tube placement in the vitreous cavity (Right) Lucila Grajeda MD 07/03/20 1310 07/03/20 1504 Events Date Time Event Comment 07/03/2020 1201 1310 Pt In Room 1310 An Start 1310 An Start Data 1311 PT Reassessment 1313 Anes Timeout 1314 Induction 1315 An LMA 1318 Anes Ready 1328 Time Out Anesthesia part icipated in timeout at the time documented in the record by nursing 1329 Proc Start 1331 Incision 1431 Proc Stop 1433 An Emergence 1441 An LMA Removed 1449 an stop data 1450 Pt out of Room 1450 ANPTO2 1504 An Stop 1504 Electnc Sig Meds Name Total midazolam 2 mg/2mL injection 2 mg fentaNYL 100 mcg/2ml injection 100 mcg propofol 200mg/20mL injection 200 mg lidocaine PF 2% 80 mg LR (Lactated ringers) 1,100 mL * Agents Name Exp. Sevoflurane Exp. N2O O2 Insp. Sevoflurane * Blood No blood administrations on file. Lines, Drains, and Airways Type Details Placement Removal Peripheral IV Date: 07/03/20; Time : 121; Orientation: Right; Tolerance: Well 07/03/20 1219 by Shaq Thomson RN 07/03/20 1549 by Christopher Thakur RN LMA 07/03/20; 1315; augustin g; 100% O2; Standard IV; easy mask; 1; LMA; 3.0; Bilateral breath sounds, Chest Auscultation, CO2 Monitor; 07/03/20; 1442; augustin g 07/03/20 1315 by Gregory Trejo APRN-CRNA 07/03/20 1442 by Gregory Trejo APRN-CRNA Procedural Site (Incision) 07/03/20; 1344; Right; Eye; 07/03/20; 1502 07/03/20 1344 by Danita Adam RN 07/03/20 1502 by Christopher Thakur RN documented in this [...] as of this encounter Progress Notes * Lucila Grajeda MD - 07/03/2020 3:58 PM CST ANESTHESIA POSTOP EVALUATION NOTE Procedure: Ahmed implant right eye and dexamethasone subconjunctival injection, possible additionalpars plana vitrectomy with tube placement in the vitreous cavity (Right ) Cesario Jewell is a 40 year old female Patient Vitals for the past 6 hrs: BP Temp Pulse Resp SpO2 Pain Rating Score #1 Pain Scale/Observation 07/03/20 1218 128/71 97.6 ??F (36.4 ??C) 85 11 100 % -- -- 07/03/20 1455 137/83 98.6 ??F (37 ??C) (!) 129 16 100 % 0 N 07/03/20 1500 124/78 -- (!) 128 16 100 % -- -- 07/03/20 1505 136/84 -- (!) 119 18 100 % -- -- 07/03/20 1510 144/78 -- (!) 123 19 100 % 6 N 07/03/20 1515 -- -- (!) 119 15 99 % -- -- Anesthesia Type: general LMA Pre-op Diagnosis Codes: * Secondary glaucoma, unspecified glaucoma stage, unspecified laterality [H40.50X0] Mental Status: awake, alert and oriented Neuro Status: No numbness, tingling or visual disturbances Respiratory Function: natural Cardiac Function: stable Postop Pain: acceptable to the patient Postop Hydration: adequate Postop Nausea: none Assessment: no apparent anesthetic complications, patient tolerated procedure well and no evidence of recall Patient Disposition: Release from Anesthesia Care COMPLICATIONS: No complications documented. M TABLE ATTENDANT * Lucila Grajeda MD - 07/03/2020 12:00 PM CST ANESTHESIA PREOPERATIVE EVALUATION NOTE Procedure: Ahmed implant right eye and dexamethasone subconjunctival injection, possible additionalpars plana vitrectomy with tube placement in the vitreous cavity (Right ) Vitals: No data found. ANESTHESIA PRE-EVALUATION NOTE History of Present Illness: 40 yo female came in for Ahmed implant right eye and dexamethasone subconjunctival injection, possible additional pars plana vitrectomy with tube placement in the vitreous cavity (Right ). PMH: asthma, anxiety/depression, morbid obesity Physical Exam: Orientation X3 Airway/Mallampati Score: III Mouth Opening Distance: 3 fingerwidths Neck ROM: full TM Distance: > 3 FB Teeth: normal Heart: normal - S1 S2 Lungs: clear to ausculation bilaterally Abdomen Exam: obese Review of Systems: History of anesthetic complications: No Malignant Hyperthermia: No GERD: No AICD/Pacemaker: No ANESTHESIA PLAN ASA Score: 2 NPO Status: No solids since midnight and No liquids within 2 hours Anesthesia Plan: general LMA Planned Induction: intravenous Planned Postop Destination: OPS Anesthetic plan was discussed with: patient Anesthetic Plan discussion was: Consented The patient's procedural Anesthetic Plan was discussed with the INSPECTOR AIDE. BMI, Height, Weight Tobacco History Estimated body mass index is 36.32 kg/m?? as calculated from the following: Height as of this encounter: 1.676 m (5' 6 ). Weight as of this encounter: 102.1 kg (225 lb). Social History Tobacco Use Smoking Status Never Smoker Smokeless Tobacco Never Used Alcohol History Drug History Social History Substance and Sexual Activity Alcohol Use Never ??? Frequency: Never Social History Substance and Sexual Activity Drug Use Never Outpatient Medications: Inpatient Medications: No outpatient medications have been marked as taking for the 07/03/20 encounter (Hospital Encounter). Current Facility-Administered Medications Medication Dose Last Admin ??? 0.9% NaCl 3 mL And ??? 0.9% NaCl 1-10 mL ??? cyclopentolate 2% 1 drop ??? lactated ringers ??? lidocaine 1 drop ??? phenylephrine 2.5% 1 drop ??? tropicamide 1% 1 drop Allergies: Allergies Allergen Reactions ??? Penicillins Urticaria, Rash and Skin Reactions ??? Sulfacetamide Urticaria, Rash, Eye Discomfort and Eye Itching ??? Oxycodone-Acetaminophen Diarrhea, Nausea and/or Vomiting and Vomiting Relevant Problems No relevant active problems Problem List: Patient Active Problem List Diagnosis Date Noted ??? Congenital cataract of both eyes Priority: [...] Nasal saline spray (Simply saline, Little Remedies, Gully, Nogal) 2 second sprays or 2 squeezes into each nostril while looking down over the sink, do not need to sniff in. Follow up in 6 months, earlier with any ear drainage 07/06/2019 T-tubes placed in Office ??? Acute recurrent maxillary sinusitis 05/26/2019 Priority: Not Prioritized Last Assessment & Plan: Take Cefdinir with a meal daily Nasal saline spray (Simply saline, Little Remedies, Gully, Nogal) 2 second sprays or 2 squeezes into [...] Nasal saline spray (Simply saline, Little Remedies, Gully, Nogal) 2 second sprays or 2 squeezes into [...] Labs Component Name 07/03/20 1153 HCGURINE Negative No results found for requested labs within last 120 days. No results found for requested labs within last 120 days. M TABLE ATTENDANT documented in this encounter Miscellaneous Notes * Anesthesia Transfer of Care - Gregory Trejo, [place]MIRA-INSPECTOR AIDE - 07/03/2020 3:03 PM CST ANESTHESIA TRANSFER OF CARE NOTE Today's Date: 07/03/2020 Date of : 1980 Patient: Cesario V Best Procedure(s): Ahmed implant right eye and dexamethasone subconjunctival injection, possible additional pars planavitrectomy with tube placement in the vitreous cavity Surgeon(s): Primary: Fidel Moss MD Resident - Assisting: Franco Martinez MD Preop Diagnosis: Pre-op Diagnois: * Secondary glaucoma, unspecified glaucoma stage, unspecified laterality [H40.50X0] Pre-op Meds (From admission, onward) Start Stop Status Route Frequency Ordered 07/03/20 1150 0.9% NaCl injection 1-10 mL -- Dispensed IK PRN 07/03/20 1150 07/03/20 1400 0.9% NaCl injection 3 mL -- Dispensed IK EVERY 8 HOURS 07/03/20 1150 07/03/20 1150 cyclopentolate (CYCLOGYL) 2% ophthalmic solution 07/03 1224 Completed RIGHT EYE PRE-OP MULTIPLE 07/03/20 1150 07/03/20 1439 diphenhydrAMINE (BENADRYL) injection 25 mg -- Verified IV ONCE PRN 07/03/20 1439 07/03/20 1324 fentaNYL (PF) (SUBLIMAZE) injection -- Sent IV PRN 07/03/20 1324 07/03/20 1439 fentaNYL (PF) (SUBLIMAZE) injection 25 mcg -- Verified IV EVERY 10 MIN PRN 07/03/20 1439 07/03/20 1439 ketorolac (TORADOL) injection 15 mg 07/08 1438 Verified IV ONCE PRN 07/03/20 1439 07/03/20 1200 lactated ringers infusion 07/03 1159 Dispensed IV CONTINUOUS 07/03/20 1150 07/03/20 1309 lactated ringers infusion -- Sent IV CONTINUOUS PRN 07/03/20 1312 07/03/20 1200 lidocaine (AKTEN) 3.5 % ophthalmic gel GEL 1 drop 07/03 1307 Completed RIGHT EYE PRE-OP ONCE 07/03/20 1150 07/03/20 1314 lidocaine hcl (PF) (XYLOCAINE MPF) 2 % injection -- Sent INFILTRATION PRN 07/03/20 1324 07/03/20 1439 metoclopramide (REGLAN) injection 10 mg -- Verified IV ONCE PRN 07/03/20 1439 07/03/20 1309 midazolam (VERSED) injection -- Sent IV PRN 07/03/20 1312 07/03/20 1439 naloxone (NARCAN) injection 0.04 mg -- Verified IV POST-OP MULTIPLE 07/03/20 1439 07/03/20 1150 phenylephrine (MYDFRIN) 2.5% ophthalmic solution 07/03 1223 Completed RIGHT EYE PRE-OP MULTIPLE 07/03/20 1150 07/03/20 1314 propofol (DIPRIVAN) injection -- Sent IV PRN 07/03/20 1324 07/03/20 1150 tropicamide (MYDRIACYL) 1% ophthalmic solution 07/03 1224 Completed RIGHT EYE PRE-OP MULTIPLE 07/03/20 1150 Post-op Diagnosis: * Secondary glaucoma, unspecified glaucoma stage, unspecified laterality [H40.50X0] . Allergies Allergen Reactions ??? Penicillins Urticaria, Rash and Skin Reactions ??? Sulfacetamide Urticaria, Rash, Eye Discomfort and Eye Itching ??? Oxycodone-Acetaminophen Diarrhea, Nausea and/or Vomiting and Vomiting Vitals: Patient Vitals for the past 3 hrs: BP Temp Pulse Resp SpO2 Pain Rating Score #1 07/03/20 1500 124/78 -- (!) 128 16 100 % -- 07/03/20 1455 137/83 98.6 ??F (37 ??C) (!) 129 16 100 % 0 07/03/20 1218 128/71 97.6 ??F (36.4 ??C) 85 11 100 % -- Lines, Drains, and Airways Type Details Placement Removal Peripheral IV Date: 07/03/20; Time: 1218; Orientation: Right; Location: Hand; Gauge: 20 Gauge; Locals: None; Tolerance: Well 07/03/20 1219 by Jacinta Thomson, SANJANA LMA 07/03/20; 1315; augustin g; 100% O2; Standard IV; easy mask; 1; LMA; 3.0; Bilateral breath sounds, Chest Auscultation, CO2 Monitor; 07/03/20; 1442; augustin lucero 07/03/20 1315 by Gregory Trejo APRN-CRNA 07/03/20 1442 by Gregory Trejo APRN-CRNA Intraprocedure I/O Totals Intake LR (Lactated ringers) 1100.00 mL Total Intake 1100 mL Output Estimated Blood Loss 2 mL Total Output 2 mL Net Net Volume 1098 mL Patient Transfer Location: PACU Transport Airway: supplemental O2 and spontaneous respirations Complications: None Comments: Pulse ox 100% Hr 110 Handoff Given? Yes Checklist or Protocol - [...] report from the receiving PACUteam. REBA Mei M TABLE ATTENDANT documented in this encounter Plan of Treatment Upcoming Encounters Date Type Department Care Team (Late st Contact Info) Description 06/07/2024 1:00 PM STEAM TABLE ATTENDANT Office Visit [facility] - Ophthalmology [address] [place] [phone] Chrystal Roa MD [address] [place] [address] [place] [phone] 06/23/2024 2:00 PM STEAM TABLE ATTENDANT [facility] [address] [place] [phone] Fidel Moss MD [address] [place] [phone] documented as of this encounter Visit Diagnoses Not on filedocumented in this encounter Administered Medications Inactive Administered Medications - up to 3 most recent administrations Medication Order MAR Action Action Date Dose Rate Site fentaNYL (PF) (SUBLIMAZE) injection Intravenous, PRN, Starting on Wed07/03/20 at 1324, Until Wed07/03/20 at 1504, Anesthesia Intra-op $ Given 07/03/2020 2:16 PM STEAM TABLE ATTENDANT 50 mcg $ Given 07/03/2020 1:24 PM STEAM TABLE ATTENDANT 50 mcg lactated ringers infusion Intravenous, CONTINUOUS PRN, Starting on Wed07/03/20 at 1309, Until Wed07/03/20 at 1504, Anesthesia Intra-op $ New Bag/Syringe 07/03/2020 2:21 PM STEAM TABLE ATTENDANT $ New Bag/Syringe 07/03/2020 1:09 PM STEAM TABLE ATTENDANT lidocaine hcl (PF) (XYLOCAINE MPF) 2 % injection Infiltration, PRN, Starting on Wed07/03/20 at 1314, Until Wed07/03/20 at 1504, Anesthesia Intra-op $ Given 07/03/2020 1:14 PM STEAM TABLE ATTENDANT 80 mg midazolam (VERSED) injection Intravenous, PRN, Starting on Wed07/03/20 at 1309, Until Wed07/03/20 at 1504, Anesthesia Intra-op $ Given 07/03/2020 1:09 PM STEAM TABLE ATTENDANT 2 mg propofol (DIPRIVAN) injection Intravenous, PRN, Starting on Wed07/03/20 at 1314, Until Wed07/03/20 at 1504, Anesthesia Intra-op $ Given 07/03/2020 1:14 PM STEAM TABLE ATTENDANT 200 mg documented in this encounter Care Teams Senior Business Development Analyst Relationship Specialty Start Date End Date Martha Lawrence MD PCP - General 03/21/20 documented as of this encounter
--- OUTSIDE RECORDS SUMMARY | 2024-05-13 22:21 | XMS_ITS | Encounter Summary ---
Author Organization [facility] Address [address] [place] [address] Care Team Providers Care Airfield Defence Guard Name Role Phone Martha Lawrence MD Primary Care Provider [phone] Encounter Details Date Type Department Care Team (Latest Contact Info) Description 09/10/2020 Travel Social History Tobacco Use Types Packs/Day [...] st Contact Info) Description 06/07/2024 1:00 PM SURVEYOR HELPER ROD Office Visit [facility] - Ophthalmology [address] [place] [phone] Chrystal Roa MD [address] [place] [address] [place] [phone] 06/23/2024 2:00 PM SURVEYOR HELPER ROD Office Visit [facility] - Ophthalmology [address] [place] [phone] Fidel Moss MD [address] [place] [phone] documented as of this encounter Visit Diagnoses Not on filedocumented in this encounter Care Teams Airfield Defence Guard Relationship Specialty Start Date End Date Martha Lawrence MD PCP - General 03/21/20 documented as of this encounter
--- OUTSIDE RECORDS SUMMARY | 2024-05-13 22:21 | XMS_ITS | Encounter Summary ---
Author Organization [facility] Address [address] [facility] [place] [address] Care Team Providers Care President Celebrity Acquistion Name Role Phone Martha Lawrence MD Primary Care Provider [phone] Reason for Visit * Reason Comments VISUAL PROBLEMS Encounter Details Date Type Department Care Team (Late st Contact Info) Description 03/27/2020 2:00 PM CONVOLUTE TUBE WINDER Office Visit [facility] [address] [place] [address] [phone] Symptomatic posterior vitreous detachment of right eye (Primary Dx); Pseudophakia Social History Tobacco Use Types Packs/Day Years Used Date Smoking Tobacco: Never Sex and Gender Information Value Date Recorded Sex Assigned at Not on file Gender Identity Not on file Sexual Orientation Not on file documented as of this encounter Patient Instructions * Patient Instructions* Shade Price MD - 03/27/2020 4:22 PM CONVOLUTE TUBE WINDER Follow up with Dr. Roa in 2 weeks. Call with any new or worsening eye problems. During clinic hours you can reach us at our office number, . You can reach us for after hour emergencies at [phone], press 0 to talk to the terminal press operator, then ask to speak with the maxillofacial prosthetics dentist automation technologist. 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 Presented initially 03/[address] Baumann for a spot in hercenter vision that looks like a smudge on glasses. Was found to have a PVD at that appointment. Sheis presenting to the [facility] today for increase and more frequent flashing of lights in her right eye th at began 2 days ago. The flashing of lights are localized peripherally all around her right eye. Also notes a curtain, described as a smudge/waving lines in her vision that float around. In addition,2 days ago, patient states she sees only sillouettes of images when there is a bright light in the background. Gtts: OD xalatan qhs, Dorzolamide TID, alphagan TID The following was also reviewed and [...] Past Medical History: Diagnosis Date ??? Anxiety state 09/23/2013 ANXIETY STATE NOS ??? Benign hypertension 09/23/2013 BENIGN HYPERTENSION ??? [...] Tobacco Use ??? Smoking status: Never Smoker Substance Use Topics ??? Alcohol use: Not on file ??? Drug use: Not on file Base Eye Exam Visual Acuity (Snellen - Linear) Right Left Dist cc 20/40-3 pros Dist ph cc NI Correction: Glasses Tonometry (applanation, 2:49 PM) Right Left Pressure 18 pros Pupils Dark Light Shape React APD Right 2 1 Round 2+ None Left pros Visual Bay Left Right Full Restrictions Total superior temporal, inferior temporal, superior nasal, inferior nasal deficiencies Extraocular Movement Right Left Full Full Slit Lamp and Fundus Exam External Exam Right Left External Normal Normal Slit Lamp Exam Right Left Lids/Lashes Normal prosthetic in place, no swelling, discharge or e/o infection Conjunctiva/Sclera White and quiet prosthetic in place Cornea Clear Anterior Chamber Deep and quiet Iris Round and pharm dil Lens sulcus IOL, anterior capsular phimosis Vitreous PVD, cells in anterior vitreous Fundus Exam Right Left Disc Normal C/D Ratio 0.5 Macula Normal Vessels Normal Periphery Normal where visualized but difficult view due to poor dilation and phimosis Extended Ophthalmoscopy: OD: optic nerve flat with sharp margin, retina appears attached, no tears or detachment noted on peripheral fundus exam with scleral depression, however limited view secondary to phimosis Assessment/Plan Sarah Jewell is a 40 year old female 1. Acute symptomatic posterior vitreous detachment, right eye - Patient is monocular, follows with Dr. Baumann. Evaluated for worsening flashing lights yesterdayand diagnosed with PVD, however patient with persistent flashes of light increasing in frequency today, therefore she was brought back in for further evaluation - VA stable today at 20/40, IOP WNL - Anterior chamber deep and quiet - DFE with anterior vitreous cell noted, limited view due to phimosis, retina appears flat with scleral depression, no obvious sign of retinal tear or detachment noted - Patient counseled on signs/symptoms to call if worsening or increase in flashes of light or floaters or if curtain comes down over vision or part fo her vision is missing 2. Congenital glaucoma OD - Patient follows with Dr. Pappas - IOP WNL today - Continue IOP drops per Dr. Pappas 3. s/p CE/IOL OU c/b recurrent RDs OS s/p childhood enucleation, prosthesis OS - Monocular precautions PLAN: - Follow up in [address] Roa for repeat DFE - Signs of retinal tear/detachment reviewed, patient instructed to call with any new or worsening vision changes All questions were answered to the best of my ability. Patient verbalized understanding and is in agreement with the plan. Patient seen by and plan was discussed with Dr. Roa. Shade Price M.D (Jake). Ophthalmology, PGY-2 I reviewed and confirmed the techs ROS, past histories, and readings. I have personally seen and examined the patient, and reviewed in detail the findings of the resident/fellow. I have personally performed the extended ophthalmoscopy.The final examination findings, image interpretations, and plan as documented in the record represent my personal judgment and conclusions. with the following additions or corrections: Patient is a 40 yo monocular (History of congenital cataract, glaucoma, s/p surgery.h/o RD OS s/p surgery, failed, s/p enucleation) who was seen on 03/26 (yesterday) in Dr Baumann's clinic for new onset floater and flashing lights, and found to have acute PVD OD. Today is back because of increase in flashing lights. I personally performed ophthalmoscopy with scleral depression with 28 D lens given poor view, as far as I could see, I didn't see any tears on retina exam. I instructed her to call and come back again in case of sudden floaters, increse in flashing lights, or decreased peripheral vision. Otherwise I will see her back in 2 weeks. Follow up 2 weeks, DFE OD, OCT Brant OD Chrystal Roa MD Retina/ Uveitis attending Date of service: 03/27/2020 OLUTE TUBE WINDER documented in this encounter Plan of Treatment Upcoming Encounters Date Type Department Care Team (Late st Contact Info) Description 06/07/2024 1:00 PM CONVOLUTE TUBE WINDER Office Visit [facility] [address] [place] [phone] Chrystal Roa MD [address] [place] [address] [place] [phone] 06/23/2024 2:00 PM CONVOLUTE TUBE WINDER Office Visit [facility] [address] [place] [address] [phone] Fidel Moss MD [address] [place] [phone] documented as of this encounter Visit Diagnoses Diagnosis Symptomatic posterior vitreous detachment of right eye- Primary Pseudophakia Lens replaced by other means documented in this encounter Care Teams President Celebrity Acquistion Relationship Specialty Start Date End Date Martha Lawrence MD PCP - General 03/21/20 documented as of this encounter
--- OUTSIDE RECORDS SUMMARY | 2024-05-13 22:21 | XMS_ITS | Encounter Summary ---
Author Organization [facility] Address [address] [facility] [place] [address] Care Team Providers Care Business Process Analyst Name Role Phone Martha Lawrence MD Primary Care Provider [phone] Encounter Details Date Type Department Care Team (Late st Contact Info) Description 09/19/2020 Orders Only [facility] Phys Standard [address] [place], [place] [phone] Shade Reddy MD [address] [place], [place] [phone] Social History Tobacco Use Types Packs/Day Years [...] Office Visit [facility]mology [address] [place] [phone] Chrystal Roa MD [address] [place] [address] [place] [phone] 06/23/2024 2:00 PM YEAST PUSHER Office Visit [facility] Ophthalmology [address] [place] [phone] Fidel Moss MD [address] [place] [phone] documented as of this encounter Visit Diagnoses Not on filedocumented in this encounter Care Teams Business Process Analyst Relationship Specialty Start Date End Date Martha Lawrence MD PCP - General 03/21/20 documented as of this encounter
--- OUTSIDE RECORDS SUMMARY | 2024-05-13 22:21 | XMS_ITS | Encounter Summary ---
Author Organization [facility] Address [address] [facility] [place] [address] Care Team Providers Care Accounts Supervisor Name Role Phone Martha Lawrence MD Primary Care Provider [phone] Encounter Details Date Type Department Care Team (Late st Contact Info) Description 09/02/2020 Orders Only [facility] [address] [place] [address] Cherrie Arriola MD [address] [facility] [address] DEPT [place]THAL[place]OLOGY [place] Secondary glaucoma, mild stage, right Social [...] No 07/03/2020 documented as of this encounter Plan of Treatment Upcoming Encounters Date Type Department Care Team (Late st Contact Info) Description 06/07/2024 1:00 PM POSITION CLASSIFICATION MANAGER Office Visit [facility] [address] [place] [phone] Chrystal Roa MD [address] [place] [address] [place] [phone] 06/23/2024 2:00 PM POSITION CLASSIFICATION MANAGER Office Visit [facility] - Ophthalmology [address] [place] [phone] Fidel Moss MD [address] [place] [address] [phone] documented as of this encounter Visit Diagnoses Diagnosis Secondary glaucoma, mild stage, right- Primary documented in this encounter Care Teams Accounts Supervisor Relationship Specialty Start Date End Date Martha Lawrence MD PCP - General 03/21/20 documented as of this encounter
--- OUTSIDE RECORDS SUMMARY | 2024-05-13 22:21 | XMS_ITS | Encounter Summary ---
Author Organization [facility] Address [address] [facility] [place] [address] Care Team Providers Care Track Fitter Name Role Phone Martha Lawrence MD Primary Care Provider [phone] Reason for Visit * Reason Comments Post-Op Encounter Details Date Type Department Care Team (Latest Contact Info) Description 04/23/2020 2:15 PM LINK WIRE FABRIC MACHINE OPERATOR Office Visit [facility] [address] [place] [phone] Chrystal Roa MD [address] [place] [address] [place] [phone] Ocular hypertension of right eye [...] this encounter Patient Instructions * Patient Instructions* Gavin Tamez MD - 04/23/2020 3:19 PM LINK WIRE FABRIC MACHINE OPERATOR EYE DROP INSTRUCTIONS Use the following eye drops as directed below. If you were previously using other drops, please discontinue those at this time. Please wait 3-5 minutes between drops. Right eye (OD): Alphagan/Brimonidine (PURPLE cap) three times daily Cyclogyl/Cyclopentolate (landscaping crew leader) two times daily Prednisolone Acetate/Pred Forte (PINK or WHITE cap) three times daily Trusopt/Dorzolamide (ORANGE cap) three times daily Vigamox/Moxifloxacin (GARCIA cap) four times a day for two more days, then STOP Xalatan/Latanoprost (TEAL GREEN cap) at bedtime It was a pleasure seeing you today in the [facility] Ophthalmology clinic, which is now located on the Garden Level at the [facility] ([address] [place] [address]). Call us immediately with any sudden change [...] the weekend, you will need to call [facility] ([phone]), dial [phone] for the drier operator head, and say you are an eye patient and need to speak with the eye doctor telephone services sales representative. They will contact one of the eye doctors who will call you and address your concerns. Again, our clinic is now located in the [facility]. The address is [address] [place] [address]. Our clinic is located on the Garden Level. If you are driving, you should park on the BLUE SIDE of the parking garage and proceed to the Garden Level of the [facility]. WIRE FABRIC MACHINE OPERATOR documented in this encounter Progress Notes * Gavin Tamez MD - 04/23/2020 3:26 PM CST Ophthalmology Office Note Subjective: Chief Complaint Patient presents with ??? Post-Op Cesario Jewell is a 40 year old female here for PO follow up. S/p 25g PPV OD for symptomatic PVD 04/18/20. States she woke up this morning with pain in her eye. Vision seems to be blurred, described as cloudy. Seeing halos around lights. States she thinks pressure is elevated because this is what it felt like last time the pressure was high. Had appt for tomorrow, called in to be seen sooner. Prior to today, felt that colors have been distorted. Gtts: Cyclo BID PF QID Vigamox QID Tobradex qHS Past History: Past Medical History: Diagnosis Date [...] file Gets together: Not on file Attends pentecostal service: Not on file Active member of [...] (Snellen - Linear) Right Left Dist cc 20/50 +2 Dist ph cc NI Tonometry (Applanation, 2:58 PM) Right Left Pressure 54 Tonometry #2 (Tonopen, 2:58 PM) Right Left Pressure 49 Pupils Unable to obtain, monocular Visual Bay Left Right Restrictions Total superior [...] Macula flat Vessels Normal Periphery 360 attached Extended Ophthalmoscopy: OD: retina flat and attached, healing well, no tears, holes, or detachments Assessment/Plan: # Ocular hypertension OD - IOP 54, pain since this morning - She forgot to restart her glaucoma eye drops after surgery - Diamox 500 PO given at clinic - Three rounds of Timolol and Cosopt q5 min were instilled at clinic - Will recheck the IOP in the morning, restart all glaucoma drops as before #s/p 25g PPV OD for symptomatic PVD (04/18/20) -pt monocular. PPV performed due to significant effect on daily activities and poor performance at work due to PVD -VA stable today at 20/50+2, sees clearl -IOP elevated today in 50s, see #1 #Congenital glaucoma OD -Patient follows with Dr. Pappas at [facility] -IOP elevated today. Has not restarted gtts since surgery (was on Alphagan TID, Dorzolamide TID, and latanoprost qHS) - See #1 ?? 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 #Pseudophakia, OD -Anterior capsule phimosis -Monocular precautions -States glasses are polycarbonate ?? Plan: -Given Diamox 500mg PO in clinic as well as three rounds of Timolol and Cosopt OD -Instructed patient to take 250mg Diamox this evening as well as 250mg in the morning -Restart all IOP drops. Alphagan TID, Dorzolamide TID, and latanoprost qHS -Pt to RTC tomorrow for IOP check Patient seen and discussed with Dr. Roa. Gavin Tamez MD Ophthalmology I reviewed and confirmed the techs ROS, past histories, and readings. I have personally seen and examined the patient, and reviewed in detail the findings of the resident/fellow. I have personally performed the extended ophthalmoscopy.The final examination findings, image interpretations, and plan as documented in the record represent my personal judgment and conclusions. with the following additions or corrections: Patient one week postop, will severe eye pain since this morning. Has forgotten to restart her glaucoma drops after surgery. IOP 54 500 Diamox given, as well as three rounds of timolol and Cosopt q5 min at clinic. Will recheck IOP in the morning. restart glaucoma drops as before. Patient understands the need for follow up and care and is in agreement with the plan. Follow up ; 04/24, IOP check , postop exam Chrystal Roa MD Retina/ Uveitis attending Date of service: 04/23/2020 WIRE FABRIC MACHINE OPERATOR documented in this encounter Plan of Treatment Upcoming Encounters Date Type Department Care Team (Late st Contact Info) Description 06/07/2024 1:00 PM LINK WIRE FABRIC MACHINE OPERATOR Office Visit [facility] [address] [place] [phone] Chrystal Roa MD [address] [place] [address] [place] [phone] 06/23/2024 2:00 PM LINK WIRE FABRIC MACHINE OPERATOR Office Visit [facility] Ophthalmology [address] [place] [phone] Fidel Moss MD [address] [place] [phone] documented as of this encounter Visit Diagnoses Diagnosis 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
--- OUTSIDE RECORDS SUMMARY | 2024-05-13 22:21 | XMS_ITS | Encounter Summary ---
Author Organization [facility] Address [address] [facility] [place] [address] Care Team Providers Care Laborer Landscape Name Role Phone Zoran Willams DO Primary Care Provider Reason for Visit * Reason Onset Date Comments Follow-up 2016 Encounter Details Date Type Department Care Team (Late Contact Info) Description [address] [facility] AT [address] [phone] [facility] Follow-up Social History Tobacco Use Types Packs/Day Years Used Date Smoking Tobacco: Never Assessed Sex and Gender Information Value Date Recorded Sex Assigned at Not on file Gender Identity Not on file Sexual Orientation Not on file documented as of this encounter Plan of Treatment Upcoming Encounters Date Type Department Care Team (Late Contact Info) Description 06/07/2024 1:00 PM PROCUREMENT FORESTER Office Visit [facility] [address] [place] [phone] Chrystal Roa MD [address] [place] [address] [place] [phone] 06/23/2024 2:00 PM PROCUREMENT FORESTER Office Visit [facility] [address] [place] [address] [phone] Fidel Moss MD [facility] [place] [phone] documented as of this encounter Visit Diagnoses Not on filedocumented in this encounter Care Teams Laborer Landscape Relationship Specialty Start Date End Date Zoran Willams DO [address] [place] [address] PCP - General Family Medicine 01/10/16 03/20/20 documented as of this encounter
--- OUTSIDE RECORDS SUMMARY | 2024-05-13 22:21 | XMS_ITS | Encounter Summary ---
Author Organization [facility] Address [address] [place] [address] Care Team Providers Care Developmental Education Instructor Name Role Phone Zoran Willams Sushant ELKINS Primary Care Provider [phone] Reason for Visit * Reason Comments Ear Pain Drainage Nose Encounter Details Date Type Department Care Team (Late st Contact Info) Description 01/10/2016 10:15 AM CDT Office Visit [facility] AT [address] [phone] Acute suppurative otitis media of left ear without spontaneous rupture of tympanic membrane, recurrence not specified (Primary Dx) Social History Tobacco Use Types Packs/Day Years Used Date Smoking Tobacco: Never Assessed Sex and Gender Information Value Date Recorded Sex Assigned at Not on file Gender Identity Not on file Sexual Orientation Not on file documented as of this encounter Last Filed Vital Signs Vital Sign Reading Time Taken Comments Blood Pressure 130/88 01/10/2016 10:29 AM CDT Pulse 84 01/10/2016 10:29 AM CDT Temperature 37 ??C (98.6 ??F) 01/10/2016 10:29 AM CDT Respiratory Rate 18 01/10/2016 10:29 AM CDT Oxygen Saturation 98% 01/10/2016 10:29 AM CDT Inhaled Oxygen Concentration - - Weight 115.2 kg (254 lb) 01/10/2016 10:29 AM CDT Height 167.6 cm (5' 6 ) 01/10/2016 10:29 AM CDT Body Mass Index 41 01/10/2016 10:29 AM CDT documented in this encounter Patient Instructions * Patient Instructions* Rea Craven APRN-CNP - 01/10/2016 10:50 AM CDT Tylenol or motrin for pain. Use the flonase for nasal congestion documented in this encounter Progress Notes * Rea Craven APRN-CNP - 01/10/2016 10:43 AM CDT [facility] Chief Complaint Patient presents with ??? Ear Pain ??? Drainage Nose SUBJECTIVE: HPI No past medical history on file. No current outpatient prescriptions on file prior to visit. No current facility-administered medications on file prior to visit. No past surgical history on file. History Social History ??? Marital Status: Single Spouse Name: N/A Number of Children: N/A ??? Years of Education: N/A Occupational History ??? Not on file. Social History Main Topics ??? Smoking status: Not on file ??? Smokeless tobacco: Not on file ??? Alcohol Use: Not on file ??? Drug Use: Not on file ??? Sexual Activity: Not on file Other Topics Concern ??? Not on file Social History Narrative ??? No narrative on file No family history on file. Current Outpatient Prescriptions Medication Sig Dispense Refill ??? FLUoxetine (PROZAC) 10 MG capsule Take 30 mg by mouth once daily ??? metFORMIN (GLUCOPHAGE) 500 MG tablet Take 150 mg by mouth once daily ??? buPROPion SR 12hr (WELLBUTRIN SR) 150 MG tablet Take 150 mg by mouth 2 times daily ??? azithromycin (ZITHROMAX) 250 MG tablet Take 1 Tab by mouth once daily for 5 days Take two tablets on day one, then one tablet daily for the next 4 days. 6 Tab 0 No current facility-administered medications for this visit. Allergies Allergen Reactions ??? Penicillins Skin Reactions REVIEW OF SYSTEMS: Review of Systems Constitutional: Negative. HENT: Positive for ear pain. Nasal drainage and left ear pain Respiratory: Negative. Cardiovascular: Negative. Neurological: Negative. OBJECTIVE: General appearance: alert, well appearing, and in no distress. BP 130/88 mmHg Pulse 84 Temp(Src) 98.6 ??F (Oral) Resp 18 Wt 115.214 kg (254 lb) BMI 41.02 kg/m2 Physical Exam Constitutional: She is oriented to person, place, and time and well-developed, well-nourished, and in no distress. HENT: TM right air fluid level noted. TM left opague, erythematous. Pain with exam. Clear nasal draiange,PND noted posterior pharynx Neck: Normal range of motion. Neck supple. Cardiovascular: Normal rate, regular rhythm and normal heart sounds. Pulmonary/Chest: Effort normal and breath sounds normal. Neurological: She is alert and oriented to person, place, and time. Skin: Skin is warm and dry. ASSESSMENT: No results found for this visit on 01/10/16. Encounter Diagnosis Name Primary? Acute suppurative otitis media of left ear without spontaneous rupture of tympanic membrane, recurrence not specified Yes PLAN: Orders Placed This Encounter ??? azithromycin (ZITHROMAX) 250 MG tablet Sig: Take 1 Tab by mouth once daily for 5 days Take two tablets on day one, then one tablet daily for the next 4 days. Dispense: 6 Tab Refill: 0 documented in this encounter Plan of Treatment Upcoming Encounters Date Type Department Care Team (Late st Contact Info) Description 06/07/2024 1:00 PM STUDENT SUCCESS COACH Office Visit [facility] - Ophthalmology [address] [place] [phone] Chrystal Roa MD [address] [place] [address] [place] [phone] 06/23/2024 2:00 PM STUDENT SUCCESS COACH Office Visit [facility] - Ophthalmology [address] [place] [phone] Fidel Moss MD [address] [place] [phone] documented as of this encounter Visit Diagnoses Diagnosis Acute suppurative otitis media of left ear without spontaneous rupture of tympanic membrane, recurrence not specified- Primary documented in this encounter Care Teams Developmental Education Instructor Relationship Specialty Start Date End Date Zoran Willams DO [address] [place] [phone] PCP - General Family Medicine 01/10/16 03/20/20 documented as of this encounter
--- OUTSIDE RECORDS SUMMARY | 2024-05-13 22:21 | XMS_ITS | Encounter Summary ---
Author Organization [facility] Address [address] [place] [address] Care Team Providers Care Baker Operator Automatic Name Role Phone Martha Lawrence MD Primary Care Provider [phone] Reason for Visit * Reason Comments Post-Op Ocular hypertension of right eye Encounter Details Date Type Department Care Team (Latest Contact Info) Description 05/27/2020 10:15 AM ENFORCEMENT OFFICER Office Visit [facility] [address] [place] [phone] Chrystal Roa MD [address] [place] [address] [place] [phone] Status post vitreoretinal surgery, right eye (Primary Dx); Ocular hypertension of right eye Social History Tobacco Use [...] this encounter Patient Instructions * Patient Instructions* Camden Chavarria IV, DO - 05/27/2020 11:09 AM ENFORCEMENT OFFICER It was a pleasure seeing you today in the [facility] Ophthalmology clinic, which is now located on the Garden Level at the [facility] ([address] [place] [address]). Call us immediately with any sudden change [...] the weekend, you will need to call [facility] ([phone]), dial [phone] for the flaring machine operator, and say you are an eye patient and need to speak with the eye doctor veterans rehabilitation counselor. They will contact one of the eye doctors who will call you and address your concerns. Again, our clinic is now located in the [facility]. The address is [address] [place] [address]. Our clinic is located on the Garden Level. If you are driving, you should park on the BLUE SIDE of the parking garage and proceed to the Garden Level of the [facility]. RCEMENT OFFICER documented in this encounter Progress Notes * Camden Chavarria IV, DO - 05/27/2020 10:03 AM CST Ophthalmology Progress Note Subjective: Chief Complaint Patient presents with ??? Post-Op Ocular hypertension of right eye Cesario Jewell is a 40 year old female had surgery 04/18 right eye. Patient states she had high pressure in eyes in Dr. Baumann clinic and diamox was added. Patient states she has eye pain and a headache each day that comes and goes. Using eye aches in the morning when she wakes up. Patients flashes have not increased, she notices them at night. Gtt: brimonidine TID OD Dorzolamide TID OD latanoprostQD OD diamox QID Current Outpatient Medications Medication Sig Dispense [...] times daily (Patient not taking: Reported on 05/27/2020) ??? dorzolamide (TRUSOPT) 2 % ophthalmic solution [...] ointment Instill into right eye at bedtime (Patient not taking: Reported on 05/27/2020) ??? traZODone (DESYREL) 150 MG tablet TAKE 1 TABLET BY MOUTH EVERYDAY AT BEDTIME No current facility-administered medications for this visit. Allergies Allergen Reactions ??? Penicillins Urticaria, Rash and Skin Reactions ??? Sulfacetamide Urticaria, Rash, Eye Discomfort and Eye Itching ??? Oxycodone-Acetaminophen Diarrhea, Nausea and/or Vomiting and Vomiting Objective: Base Eye Exam Visual Acuity (Snellen - Linear) Right Left Dist sc prosthetic Dist cc 20/40 +2 Correction: Glasses Tonometry (Tonopen, 10:24 AM) Right Left Pressure 22 Tonometry #2 (Applanation, 10:52 AM) Right Left Pressure 22 Pupils Unable to obtain RAPD because of monocular status Visual Bay Left Right Full Restrictions Total superior temporal, inferior temporal, superior nasal, inferior nasal deficiencies Extraocular Movement Right Left Full Full Neuro/Psych Oriented x3: Yes Mood/Affect: Normal Dilation Right eye: 1.0% Mydriacyl, 2.5% Slade Synephrine @ 10:25 AM Slit Lamp and Fundus Exam External Exam Right Left External Normal Slit Lamp Exam Right Left Lids/Lashes Normal pros Conjunctiva/Sclera sutured, no leakage Cornea Clear Anterior Chamber Deep and quiet Iris Round and reactive Lens PCIOL, sulcus lens Vitreous clear, vitrectomized Fundus Exam Right Left Disc Normal Macula flat Vessels Normal Periphery Attached 360 Studies 05/28/2020: OCT Macula OD OD: Normal foveal contour, no edema Extended ophthalmoscopy OD: Flat macula, attached 360 Assessment: Ms. Jewell is a 40 yo F here for follow up visit s/p PPV OD for significant vitreous opacities/PVD from 04/18/[address] Roa. #POM#1??s/p 25g PPV OD for??visually significant vitreous opacities/PVD??(04/18/20) - PPV performed due to??significant effect on daily activities and poor performance at work due to PVD -VA??20/40, retina flat #Congenital glaucoma OD #Ocular hypertension OD?? - IOP??today 22 via applanation -??On Diamox 250mg QID and Alphagan TID, Latanoprost qhs, Dorzolamide TID - Sulfa allergy is because she had periorbital rash after iopidine - Patient??previously saw??Dr. Pappas??at [facility]??- only once, would like to establish glaucoma care here - Patient scheduled with Dr. Moss for 06/21/2020, will likely need surgical intervention - Will add Betaxolol bid OD (she has asthma, will not prescribe Timolol) ?? 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 #Pseudophakia, OD -Anterior capsule phimosis -Monocular precautions -Glasses are polycarbonate ?? Plan: - Continue??Alphagan TID, Dorzolamide TID, and latanoprost qHS, PO Diamox 250mg QID (I discussed the side effects of Diamox including paresthesia, metal taste, fatigue...) if very severe, and not tolerable can decrease diamox to 250 TID - Will add Betaxolol bid OD - Patient was instructed to call and come back in case of severe eye pain, swelling, loss of vision - Appointment with Dr. Moss on 06/21/2020 - RTC with Dr. Roa in 3 months for DFE/OCT OD Patient seen and discussed with attending physician Dr. Roa. Camden Chavarria IV, D.O., M.Sc. Ophthalmology PGY-1 I reviewed and confirmed the techs ROS, past histories, and readings. I have personally seen and examined the patient, and reviewed in detail the findings of the resident/fellow. I have personally performed the extended ophthalmoscopy.The final examination findings, image interpretations, and plan as documented in the record represent my personal judgment and conclusions. with the following additions or corrections: I discussed with the patient given her IOP now is borderline controlled with full topical drops anddiamox PO. She will likely need surgical intervention (Shunt sx) I will add betaxolol bid OD today given history of asthama Follow up: 3 months Retina, DFE OD, OCT [place] OD Glaucoma as scheduled with Dr Isa Roa MD Attending, Retina and Uveitis Service Date of Service: 05/27/2020 RCEMENT OFFICER documented in this encounter Plan of Treatment Upcoming Encounters Date Type Department Care Team (Late st Contact Info) Description 06/07/2024 1:00 PM ENFORCEMENT OFFICER Office Visit [facility] - Ophthalmology [address] [place] [phone] Chrystal Roa MD [address] [place] [address] [place] [phone] 06/23/2024 2:00 PM ENFORCEMENT OFFICER Office Visit [facility] - Ophthalmology [address] [place] [phone] Fidel Moss MD [address] [place] [phone] documented as of this encounter Procedures Procedure Name Priority Date/Time Associated Diagnosis Comments OPH OCT TEST [facility] Routine 05/27/2020 10:37 AM ENFORCEMENT OFFICER Status post vitreoretinal surgery, right eye documented in this encounter Results * OPH OCT TEST [facility] (05/27/2020 10:37 AM ENFORCEMENT OFFICER) Anatomical Region Laterality Modality Other 05/27/2020 10:3 7 AM ENFORCEMENT OFFICER Chrystal Roa MD OPHTHALMOLOGY SERVIC ES ORDERABLES documented in this encounter Visit Diagnoses Diagnosis Status post vitreoretinal surgery, right eye- Primary Other states following surgery of eye and adnexa Ocular hypertension of right eye Borderline glaucoma with ocular hypertension documented in this encounter Care Teams Baker Operator Automatic Relationship Specialty Start Date End Date Martha Lawrence MD PCP - General 03/21/20 documented as of this encounter
--- OUTSIDE RECORDS SUMMARY | 2024-05-13 22:21 | XMS_ITS | Encounter Summary ---
Author Organization [facility] Address [address] [place] [address] Care Team Providers Care Indexer Name Role Phone Martha Lawrence MD Primary Care Provider [phone] Reason for Visit * Auth/Cert Specialty Diagnoses / Procedures Referred By Joelle t Referred To Contact Diagnoses Secondary glaucoma, right, mild stage Secondary glaucoma, mild stage, right Procedures AQUEOUS EYE SHUNT WITH GRAFT Referral ID Status Reason Start Date Expiration Date Visits Re quested Visits Authorized [id number] 1 1 Encounter Details Date Type Department Care Team (Late st Contact Info) Description 09/23/2020 7:30 AM CDT - 09/23/2020 10:13 AM CDT Surgery [facility] OR VIRGIL/AMB SURGERY [address] [place] [phone] Fidel Moss MD [address] [place] [phone] Ahmed tube revision right eye (shortening the tube) Surgery Details Date/Time Status Location OR Service Patient Class Case Class Case Type Trauma Case? 09/23/2020 7:30 AM [facility] 02 Ophthalmology Surgery Day Care Panel 1 Procedure [facility] Anes Op Region Wound Class Comments Ahmed tube revision right ey e (shortening the tube) Right General Eye Clean Surgeon Surgeon Role Service Panel Fidel Moss MD Primary Ophthalmology 1 Cherrie Arriola MD Resident - Assisting Ophthalmology 1 Special Needs ANESTHESIA GENERAL SUPINE Ahmed tube revision left (He meant RIGHT eye, as the left is a prosthetic) eye by removal and shortening the tube as well as prime the tube to ensure no internal obstruction. Do not anticipate need for Tutoplast sclera. Prefer general anesthesia similar documented in this encounter Social History Tobacco [...] SURGERY DISCHARGE SUMMARY Patient ID: Cesario Jewell [id number] 40 year old 1980 Date of Surgery: [...] daily Start taking on: September 24, 2020 qgpbddnd-uafxqaoqo-ftotbvlq ophthalmic ointment Commonly known as: Maxitrol Instill [...] mg/spray) nasal spray Commonly known as: Spravato [place] 56 (fifty six) mg into the nose [...] ?? moxifloxacin 0.5 % ophthalmic solution ?? oyriytxk-ihhdateog-aubbohcy ophthalmic ointment ?? nepafenac 0.1 % ophth suspension ?? tobramycin-dexamethasone 0.3-0.1 % ophthalmic suspension Discharge Procedure Orders Why you were hospitalized Order Specific Question Answer Comments Your discharge diagnosis is: Glaucoma [9108062] When to call your provider At and [...] Up Instructions: Tomorrow at 8:30am at [address] [facility] Discharge Instructions Patient Education [facility] Department of Ophthalmology Fidel Moss M.D. Post-Operative [...] instructed to do so You should call [phone] IF EMERGENCY. EYE DROP INSTRUCTIONS: As above: [...] the weekend, you will need to call [facility] ([phone]), dial [phone] for the cylinder machine operator, and say you are an eye patient and need to speak with the eye doctor continuous yarn dyeing machine operator. They will contact one of the eye doctors who will call you and address your concerns. Again, [facility]. The address is [address] [place] [address]. Our clinic is located on the Garden Level. If you are driving, you should park on the BLUE SIDE of the parking garage and proceed to the Garden Level of the [facility]. General Anesthesia WHAT YOU [...] example is signing legal documents. ?? Copyright [employer] 2020 Information is for End User's use only and may not be sold, redistributed or otherwise used for commercial purposes. All illustrations and images included in CareNotes?? are the copyrighted property of [employer] or [employer] The above information is an psychologist educational only. It is not intended as medical [...] about your condition or care. ?? Copyright [employer] 2020 Information is for End User's use only and may not be sold, redistributed or otherwise used for commercial purposes. All illustrations and images included in CareNotes?? are the copyrighted property of [employer] or [employer] The above information is an psychologist educational only. It is not intended as medical [...] original note were not included. Patient Education [facility] Department of Ophthalmology Fidel Moss M.D. Post-Operative [...] instructed to do so You should call [phone] IF EMERGENCY. EYE DROP INSTRUCTIONS: As above: [...] the weekend, you will need to call [facility] ([phone]), dial 0 for the cylinder machine operator, and say you are an eye patient and need to speak with the eye doctor continuous yarn dyeing machine operator. They will contact one of the eye doctors who will call you and address your concerns. Again, our clinic is now located in the [facility]. The address is [address] [place] [address]. Our clinic is located on the Garden Level. If you are driving, you should park on the BLUE SIDE of the parking garage and proceed to the Garden Level of the [facility] Specialized Medicine. General Anesthesia WHAT YOU NEED [...] example is signing legal documents. ?? Copyright [employer] 2020 Information is for End User's use only and may not be sold, redistributed or otherwise used for commercial purposes. All illustrations and images included in CareNotes?? are the copyrighted property of [employer] or [employer] The above information is an psychologist educational only. It is not intended as medical [...] about your condition or care. ?? Copyright [employer] 2020 Information is for End User's use only and may not be sold, redistributed or otherwise used for commercial purposes. All illustrations and images included in CareNotes?? are the copyrighted property of [employer] or [employer] The above information is an psychologist educational only. It is not intended as medical [...] 14 mg/spray, (SPRAVATO) nasal sprayIndications:Major Depressive Disorder [place] 56 (fifty six) mg into the nose [...] 4 times daily 3 mL 09/24/2020 10/01/2020 gyikxtcd-agjwetrin-lkrya eth (MAXITROL) ophthalmic ointment Instill into right [...] Social Gatherings with Friends and Family: Attends Congregational Services: Active Member of Clubs or Organizations: [...] st Contact Info) Description 06/07/2024 1:00 PM LINE UP WORKER Office Visit [facility] - Ophthalmology [address] [place] [phone] Chrystal Roa MD [address] [place] [address] [place] [phone] 06/23/2024 2:00 PM LINE UP WORKER Office Visit [facility] - Ophthalmology [address] [place] [phone] Fidel Moss MD [address] [place] [phone] documented as of this encounter Procedures Procedure Name Priority Date/Time Associated Diagnosis Comments MS WATER SHUNT-EXTRAOCUL RESERV 09/23/2020 7:54 AM CDT [...] - 115 mg/dL 09/23/2020 9:21 AM CDT [facility] Specimen Type Venous 09/23/2020 9:21 AM CDT [facility] Blood BLOOD SPECIMEN / Unknown 09/23/2020 7:21 AM CDT 09/23/2020 9:21 AM CDT Fidel Moss MD LAB - POINT OF CARE ORDERABLES [facility] [address] [place] [address], [place] [phone] * HCG URINE QUALITATIVE - POCT (IP) INTERFACED (09/23/2020 6:43 AM CDT) HCG Qual Urine Negative Negative 09/23/2020 6:49 AM CDT [facility] Urine URINE / Unknown 09/23/2020 6 :43 AM CDT 09/23/2020 6:49 AM CDT Fidel Moss MD LAB - POINT OF CARE ORDERABLES [facility] [address] [place] [phone], [place] [phone] documented in this encounter Visit Diagnoses Diagnosis History of intraocular lens implant Lens replaced by other means Secondary glaucoma, mild stage, right Congenital cataract of both eyes Preop examination Preoperative examination, unspecified History of glaucoma tube shunt procedure Secondary glaucoma, right, mild stage documented in this encounter Administered Medications Inactive [...] Given 09/23/2020 9:19 AM CDT 650 mg bupivacaine PF (Marcaine PF) 0.5 % injection PRN, Starting on Wed09/23/20 at 0800, Until Wed09/23/20 at 0841, Intra-op $ Given 09/23/2020 8:00 AM CDT 2 mL Rig ht Eye cyclopentolate (Cyclogyl) 2% ophthalmic solution 1 drop, Right Eye, PRE-OP MULTIPLE, Starting on Wed09/23/20 at 0641, Until Wed09/23/20 at 1053, Every 5 minutes for 3 doses., Pre-op $ Given 09/23/2020 7:15 AM CDT 1 drop $ Given 09/23/2020 7:05 AM CDT 1 drop $ Given 09/23/2020 7:00 AM CDT 1 drop dexamethasone (Decadron) injection PRN, Starting on Wed09/23/20 at 0815, Until Wed09/23/20 at 0841, Intra-op $ Given 09/23/2020 8:15 AM CDT 2 mg Right Eye lactated ringers infusion at 75 mL/hr, Intravenous, CONTINUOUS, Starting on Wed09/23/20 at 0645, Until Wed09/23/20 at 1053, Pre-op $ New Bag/Syringe 09/23/2020 7:16 AM CDT 75 mL/hr moxifloxacin (Vigamox) 0.5% ophthalmic solution PRN, Starting on Wed09/23/20 at 0806, Until Wed09/23/20 at 0841, Intra-op $ Given 09/23/2020 8:06 AM CDT 1 drop Right Eye nepafenac (Nevanac) 0.1 % ophth suspension PRN, Starting on Wed09/23/20 at 0807, Until Wed09/23/20 at 0841, Intra-op $ Given 09/23/2020 8:07 AM CDT 1 drop Right Eye phenylephrine (Mydfrin) 2.5% ophthalmic solution 1 drop, Right Eye, PRE-OP MULTIPLE, Starting on Wed09/23/20 at 0641, Until Wed09/23/20 at 1053, Every 5 minutes for 3 doses., Pre-op $ Given 09/23/2020 7:15 AM CDT 1 drop $ Given 09/23/2020 7:05 AM CDT 1 drop $ Given 09/23/2020 7:00 AM CDT 1 drop tobramycin-dexamethasone (Tobradex) 0.3-0.1 % ophthalmic suspension PRN, Starting on Wed09/23/20 at 0807, Until Wed09/23/20 at 0841, Intra-op $ Given 09/23/2020 8:07 AM CDT 1 drop Right Eye tropicamide (Mydriacyl) 1% ophthalmic solution 1 drop, [...] at 0807, Until Wed09/23/20 at 0841, Intra-op 0807 ($ Given - Prov ider: Fidel Moss [...] Pre-op documented in this encounter Care Teams Indexer Relationship Specialty Start Date End Date Martha Lawrence MD PCP - General 03/21/20 documented as of this encounter
--- OUTSIDE RECORDS SUMMARY | 2024-05-13 22:21 | XMS_ITS | Encounter Summary ---
Author Organization [facility] Address [address] [facility] [place] [address] Care Team Providers Care Weatherization Technician Name Role Phone Martha Lawrence MD Primary Care Provider Reason for Visit * Reason Comments Post-Op Encounter Details Date Type Department Care Team (Late st Contact Info) Description 07/26/2020 3:30 PM CDT Office Visit [facility] [address] [place] [phone] Fidel Moss MD [address] [place] [phone] Postsurgical states following surgery of eye and [...] * Patient Instructions* Franco Martinez MD - 07/26/2020 4:11 PM CDT Continue Maxitrol 2 times a day in the right eye Start pilocarpine 2 times a day in the right eye See us back in about 1 month Address: [address] [place] [address]. documented in this encounter Progress Notes * Franco Martinez MD - 07/26/2020 3:57 PM CDT Ophthalmology Progress Note Subjective: Cesario Jewell is an 40 year old Chief Complaint Patient presents with ??? Post-Op Patient returns for post-op visit, s/p Ahmed implant, Pars Plana tube placement and viscoelastic tamponade, Subconjunctival Dexamethasone Depot right eye On 07/03/20. She is seeing streaks through the light source that distorts things around her vision. She is seeing sparkles around the right eye outer vision. She is due to go back to work Wednesday and she is concerned. The left side has a shadow, she feels that it is an eyelash and she has been picking at it. No pain/pressure. Drops: RIGHT EYE Maxitrol BID Current Outpatient Medications Medication Sig Dispense Refill [...] 10 mg by mouth once daily ??? fxblxwrl-urbpwpsru-yeulxwio (MAXITROL) ophthalmic suspension Instill 1 (one) drop [...] Dist sc pros Dist cc 20/30 -2 Correction: Glasses Tonometry (Tonopen, 3:28 PM) Right Left Pressure 16 pros Tonometry #2 (Applanation, 3:53 PM) Right Left Pressure 15 pros Pupils Pupils Dark Right PERRL Left PERRL pros Visual Bay (Counting fingers) Left Right Full Extraocular Movement Right Left Full Full Neuro/Psych Oriented x3: Yes Mood/Affect: Normal Dilation Right eye: Slit Lamp and Fundus Exam External Exam Right Left External Normal Slit Lamp Exam Right Left Lids/Lashes Normal pros Conjunctiva/Sclera Post surgical conj, good bleb formation Cornea Clear Anterior Chamber Inferior endopigment Iris Round and reactive Lens Sulcus lens Vitreous clear, vitrectomized. Tube superotemporally clear through visual axis. Refraction Wearing Rx Sphere Cylinder Vevay Right -3.50 +0.75 098 Left bal Type: SVL Assessment #POW3 s/p Ahmed Valve Doing well - VA 20/30 with good bleb formation - IOP 15 today with applanation - Tube visible in vitreous behind sulcus lens, - Patient complaining of floaters as well as persistent streaking across lights #Congenital glaucoma OD - Patient??previously saw??Dr. Pappas??at [...] -??Monocular precautions - States glasses are polycarbonate Plan Pilocarpine trail BID OD Continue Maxitrol BID F/U 1 month - if improvement in visual symptoms, can schedule revision of tube length in future Franco Martinez MD Ophthalmology PGY-4 ATTENDING NOTE.... 's note, we will try pilocarpine right eye and if there is decrease in vision obscuration symptoms,we will likely recommend shortening the tube internally but not too short so that we can monitor the tube for risk of vitreous incarceration Fidel Moss MD (by voice recognition software) 07/26/2020 4:21 PM documented in this encounter Plan of Treatment Upcoming Encounters Date Type Department Care Team (Late st Contact Info) Description 06/07/2024 1:00 PM GARBAGE COLLECTION SUPERVISOR Office Visit [facility] - Ophthalmology [address] [place] [phone] Chrystal Roa MD [address] [place] [address] [place] [phone] 06/23/2024 2:00 PM GARBAGE COLLECTION SUPERVISOR Office Visit [facility] - Ophthalmology [address] [place] [phone] Fidel Moss MD [address] [place] [phone] documented as of this encounter Visit Diagnoses Diagnosis Postsurgical states following surgery of eye and adnexa- Primary Other states following surgery of eye and adnexa documented in this encounter Care Teams Weatherization Technician Relationship Specialty Start Date End Date Martha Lawrence MD PCP - General 03/21/20 documented as of this encounter
--- OUTSIDE RECORDS SUMMARY | 2024-05-13 22:21 | XMS_ITS | Encounter Summary ---
Author Organization [facility] Address [address] [facility] [place] [address] Care Team Providers Care [place] Tower Loader Name Role Phone Martha Lawrence MD Primary Care Provider [phone] Reason for Visit * Reason Onset Date Comments Refill Request 06/11/2020 Encounter Details Date Type Department Care Team (Late Contact Info) Description 06/11/2020 Telephone [facility] [address] [place] [address] Rowena Whitmore Refill Request Social History Tobacco Use Types [...] encounter Miscellaneous Notes * Telephone Encounter - Rowena Whitmore - 06/11/2020 1:04 PM CST Ms. Jewell called today asking about the refill request for her Diamox. The pharmacy has not yet received the refill. Thank you. OR IT ENGINEER documented in this encounter Plan of Treatment Upcoming Encounters Date Type Department Care Team ([facility] st Contact Info) Description 06/07/2024 1:00 PM SENIOR IT ENGINEER Office Visit [facility] - Ophthalmology [address] [place] [phone] Chrystal Roa MD [address] [place] [address] [place] [phone] 06/23/2024 2:00 PM SENIOR IT ENGINEER Office Visit [facility] - Ophthalmology [address] [place] [phone] Fidel Moss MD [address] [place] [phone] documented as of this encounter Visit Diagnoses Not on filedocumented in this encounter Care Teams [place] Tower Loader Relationship Specialty Start Date End Date Martha Lawrence MD PCP - General 03/21/20 documented as of this encounter
--- OUTSIDE RECORDS SUMMARY | 2024-05-13 22:22 | XMS_ITS | Encounter Summary ---
Author Organization [facility] Healthcare Address [address] [place] [address] Care Team Providers Care Leather Staker Name Role Phone Zoran Willams Unavailable Unavailable Martha Lawrence MD Primary Care Provider [phone] Encounter Details Date Type Department Care Team (Late st Contact Info) Description 05/19/2021 10:12 AM SANDFILL OPERATOR SURFACE Anesthesia Event [facility] Operating Room [facility] ([facility]) [address] [place] [address] Ilia Cohen MD [address] [place] [address] Yazmin Peck NP [address] [facility] [id number] [place] [address] Anesthesia Record Procedure Summary Procedure Name Responsible Anesthesiologist Anesthesia Start Time Anesthesia Stop Time EXCISION BREAST DUCT (Right: Breast) Ilia Cohen MD 05/19/21 1012 05/19/21 1105 Events Date Time Event Comment 05/19/2021 0911 In Preop 0943 1012 An Start 1014 An Start Data 1015 In Room 1020 Start Supplemental O2 1020 An Induction The patient was reevaluated immediately before moderate or deep sedation use and before anesthesia induction. 1023 Anesthesia Ready 1029 Proc Start 1031 Incision Start 1055 Proc Fin 1059 an stop data 1059 Out of Room 1105 Handoff to RN I completed my handoff to the receiving nurse during which we: 1. Patient identified 2. Responsible provider identified 3. Pertinent medical history reviewed 4. Procedure type and surgical course discussed 5. Intraoperative anesthetic management and any significant issues discussed 6. Expectations and concerns for postop period discussed 7. Questions solicited from receiving nurse 8. Patient disposition at the time of handoff: PACU 1105 An Stop Meds Name Total midazolam PF 2 mg lidocaine (cardiac) syringe 2 % 40 mg propofol 50 mg propofol 364.27 mg fentaNYL 50 mcg phenylephrine 100 mcg/mL 500 mcg ceFAZolin (ANCEF) 2,000 mg/20 mL in ster ile water (premix) 2,000 mg 2,000 mg Lactated Ringer's (LR) infusion 500 mL * Agents Name O2% N2O O2 Sevoflurane * Blood No blood administrations on file. Lines, Drains, and Airways Type Details Placement Removal RETIRED Surgical Site Left; Breast; 04/11/24 (Retired LDA, Removed/Completed by Primary Data with LDA Utility); 121 (Retired LDA, Removed/Completed by Primary Data with LDA Utility) 12/28/19 1056 by 04/11/24 1213 by Discharge Provider, Automatic Peripheral IV Placement Date: 05/19/21; Placement Time: 925; Catheter Size: 22 G; Orientation: Left; Location: Hand; Site Prep: Chlorhexidine; Insertion Attempts: 1; Patient Tolerance: Tolerated well; Removal Date: 05/19/21; Removal Time: 1156 05/19/21 0926 by Lizy Khalil RN 05/19/21 1156 by Christopher Muhammad RN RETIRED Surgical Site 05/19/21; 1035; Right; Breast; 04/11/24 (Retired LDA, Removed/Completed by [facility] with LDA Utility); 1213 (Retired LDA, Removed/Completed by Primary Data with LDA Utility) 05/19/21 1035 by Gladis Augustine, SANJA[place] 04/11/24 1213 by Discharge Provider, Automatic documented in this encounter Social History Tobacco Use Types Packs/Day Years Used Date Smoking Tobacco: Never Smokeless Tobacco: Never Alcohol Use Standard Drinks/Week Comments No 0 (1 standard drink = 0.6 oz pur e alcohol) AUDIT-C Answer Date Recorded Q1: How often do you have a drink containing alc ohol? Monthly or less 05/19/2021 Q2: How many drinks containi ng alcohol do you have on a typical day when you are drinking? 1 or 2 05/19/2021 Q3: How often do you have si x or more drinks on one occasion? Never 05/19/2021 Comments No Sex and Gender Information Value Date Recorded Sex Assigned at Not on file Legal Sex Female 10:37 AM SANDFILL OPERATOR SURFACE Gender Identity Not on file Sexual Orientation Not on file documented as of this encounter OR Notes * Anesthesia Postprocedure Evaluation - Andre Wong MD - 05/19/2021 11:36 AM CST Patient: Cesario Jewell Procedure Summary Date: 05/19/21 Room / Location: [facility] CAM OR POD 4 ROOM F / [facility] CAM OR POD 4 Anesthesia Start: 1012 Anesthesia Stop: 110 Procedure: EXCISION BREAST DUCT (Right Breast) Diagnosis: Nipple discharge (Nipple discharge [N64.52]) Surgeons: Meggan Martinez MD Responsible Provider: Ilia Cohen MD Anesthesia Type: MAC ASA Status: 2 Anesthesia Type: MAC Last vitals BP 114/77 Pulse 86 Temp 36.2 ??C (97.2 ??F) (Temporal) Resp 15 SpO2 100% Anesthesia Post Evaluation Patient location during evaluation: PACU Patient participation: complete - patient participated Level of consciousness: follows simple commands and fully awake Pain management: adequate Airway patency: adequate Evidence of recall: no Cardiovascular status: hemodynamically stable Respiratory status: acceptable and room air Hydration status: acceptable Pt is: normothermic Nausea/Vomiting status: none No complications documented. FILL OPERATOR SURFACE * Anesthesia Preprocedure Evaluation - Ilia Cohen MD - 05/13/2021 4:02 PM CST Images from the original note were not included. [facility] for Preoperative Assessment and Planning Preoperative Evaluation Record Evaluation type/location: TPAP from [facility] Planned procedure site: [facility] CAM OR (Pod 4) Date: 05/13/21 NOTE: This note represents a preoperative evaluation initiated via telephone interview. NO PHYSICALEXAM was performed at the time of initial assessment. A physical exam may be added to this note anddocumented below. Anesthesia Evaluation Cesario Jewell is a 41 y.o. female Procedure(s): EXCISION BREAST DUCT Pre-Op Diagnosis Codes: * Nipple discharge [N64.52] HISTORY HPI 41 year old female with hx of HTN, morbid obesity being evaluated prior to undergoing right breast duct excision for nipple discharge. Past Medical History Information obtained from: patient and chart. Neurological Pertinent negatives: neuromuscular disease; CVA/stroke and TIA Cardiovascular + Hypertension Hypertension year diagnosed: 2015. Typical systolic BP - 120 Typical diastolic BP - 80 Pertinent negatives: CAD ; TN ; CABG ; valvular heart disease; atrial fibrillation; pacemaker/ICD; DVT/PE; negative for CHF; drug-eluting stent(s) and bare metal stent(s) Respiratory Pertinent negatives: COPD; sleep apnea (YEMI) (pt denies, states had inconclusive sleep study; had tonsils removed); pulmonary hypertension; no O2 use outside the hospital and non-smoker Hepatic / Heme Pertinent negatives: liver disease Renal / Pertinent negatives: renal disease and dialysis Endocrine / Other + Obesity (BMI >30) (BMI 41.16)- morbid obesity (BMI>40). Pertinent negatives: diabetes mellitus; thyroid disease; cancer history; transplanted organ and infectious disease Functional Capacity Functional capacity: 4-6 METs Comments: Patient would be able to climb 2 flights of stairs at moderate pace without SOB or CP. Patient would be able to walk 3-4 city blocks at moderate pace without SOB or CP. Review of Systems + vision loss (glasses) Pertinent negatives: productive cough; SOB; recent cold/flu; fever; chest pain; orthopnea; PND; previous transfusion; bleeding problems and syncope PAT Summary and Plans Cardiac risk classification of planned procedure: low cardiac risk. Disposition: suitable for outpatient surgery center. Preoperative assessment status: complete. Additional comments: Cesario Jewell is a 41 y.o. female who is being evaluated prior to undergoing a low cardiac risk surgery. Revised Cardiac Risk Index factors are (none) for a total RCRI of 0 out of 6. Functional capacity is 4-6 METs. Obstructive sleep apnea (YEMI) screening status is STOP-BANG incomplete but suspected to be 0-2 suggesting low risk for YEMI. Neck circumference pending.. This assessment was performed via telephone. Therefore the physical exam has been deferred to the day of surgery team. The patient was provided with preoperative instructions for their medications. Patient instructions were provided electronically sent via [employer]. Patient verbalized understanding of preoperative plan. Blood bank needs for day of procedure: No type and screen needed Pending labs/tests include: POC Hcg Urine Patient's COVID19 status is: Unexposed. The patient currently has no concerning symptoms of COVID19. . Patient's COVID-19 vaccination status is Fully vaccinated. Documentation of vaccination status is available in the Primary Data Immunization tab. . Plan for pre-procedure COVID19 testing: Telephone assessment performed. Request placed for pre-procedure COVID19 testing to be performed on 05/16. [facility] will place the order for testing. Result to be reviewed by surgeon's office. . TPAP complete. Preoperative evaluation performed by Yazmin Carbajal NP on 05/13/21 at 4:05 PM . Patient Active Problem List Diagnosis ??? Multiple-type hyperlipidemia ??? Impaired fasting glucose ??? Glaucoma ??? Benign hypertension ??? Iron deficiency anemia ??? Depression ??? Tonsillitis ??? Gastroesophageal reflux disease ??? Obstructive sleep apnea syndrome ??? Vitamin D deficiency ??? Anxiety state ??? Anemia ??? Trochanteric bursitis, right hip ??? Acute recurrent maxillary sinusitis ??? ETD (Eustachian tube dysfunction), left ??? Hearing loss of left ear ??? Left ear pain ??? Nipple discharge in female ??? Dysfunction of both eustachian tubes ??? History of intraocular lens implant ??? History of eye prosthesis ??? Otorrhea of left ear Past Medical History: Diagnosis Date ??? Breast discharge ??? Depression Depression ??? GERD (gastroesophageal reflux disease) ??? Glaucoma glaucoma ??? HX OTHER MEDICAL L/R cataract extraction ??? HX OTHER MEDICAL Detached Retina ??? HX OTHER MEDICAL Scar tissure removal Left Eye ??? HX OTHER MEDICAL myringotomy tubes ??? HX OTHER MEDICAL Menorrhagia ??? HX OTHER MEDICAL [place] teeth extraction 12/18 ??? 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 HX OTHER MEDICAL right lens implant ??? HX OTHER MEDICAL OPTHO ??? HX OTHER MEDICAL milk duct removed right breast ; benign pap ??? 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 HX OTHER MEDICAL left Shoulder pain ??? HX OTHER MEDICAL fibroid removed ??? Hypertension Hypertension ??? Polycystic ovarian disease Past Surgical History: Procedure Laterality Date ??? BREAST BIOPSY Left 12/19/2019 ??? CATARACT EXTRACTION Bilateral 1982 Cataract extraction ??? CHOLECYSTECTOMY 2009 Cholecystectomy ??? 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 HISTORY L/R cataract extraction: 1982 ??? 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 HISTORY Detached Retina: Surgically repaired; 1982 ??? 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 HISTORY Scar tissure removal Left Eye: 2008 ??? 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 HISTORY myringotomy tubes: 1989 ??? 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 HISTORY right lens implant : Dr Barrios - [facility] ??? 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 HISTORY 2019 breast bx R - benign ??? 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 HISTORY milk duct removed right breast ; benign papilloma: Dr Alonso [facility] ??? 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 HISTORY left eye removed 02-10-12, prosthetic: Dr Fidel Hsu - [facility] ??? 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 HISTORY 1983 retinal reattachment ??? 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 HISTORY Left 2012 eye removal ??? 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 HISTORY 2011 milk duct removal ??? TONSILLECTOMY AND ADENOIDECTOMY 2015 ??? TYMPANOSTOMY TUBE PLACEMENT 1993 tubes in ears ??? UTERINE FIBROID SURGERY OB History No obstetric history on file. Allergies Allergen Reactions ??? Penicillins Hives ??? Sulfasalazine Hives and Rash ??? Oxycodone-Acetaminophen Diarrhea, Nausea Only and Vomiting ??? Sulfa (Sulfonamide Antibiotics) Eye irritation ??? Sulfanilamide Other (See comments) Reaction: Conjunctivitis, Med List Status: Nurse Complete Set By: Pilar Estrella RN at 05/08/2021 8:41 AM Taking? Last Dose Start Date End Date Provider albuterol HFA (PROVENTIL HFA,VENTOLIN HFA,PROAIR HFA) 90 mcg/actuation inhaler 01-08-2021 01/20/19 --ProviderBabita MD ALPRAZolam (XANAX) 0.5 mg tablet Past Week 04/07/21 -- ProviderBabita MD buPROPion XL (WELLBUTRIN XL) 150 mg 24 hr tablet 05/08/2021 -- -- Babita Anthony MD cholecalciferol (VITAMIN D-3) 5,000 unit tablet 05/08/2021 -- -- ProviderBabita MD escitalopram (LEXAPRO) 20 mg tablet 05/08/2021 -- -- Babita Anthony MD fluticasone propionate (FLONASE) 50 mcg/actuation nasal spray 05/08/2021 -- -- ProviderBabita MD hydrOXYzine (ATARAX) 25 mg tablet Past Month 07/30/20 -- ProviderBabita MD lamoTRIgine (LaMICtal) 100 mg tablet 05/07/2021 -- -- Babita Anthony MD montelukast (SINGULAIR) 10 mg tablet 05/07/2021 10/31/19 -- Babita Anthony MD nebivoloL (BYSTOLIC) 5 mg tablet 05/08/2021 04/10/21 -- ProviderBabita MD Ozempic 1 mg/dose (4 mg/3 mL) pen injector injection Past Week 03/06/21 -- ProviderBabita MD spironolactone (ALDACTONE) 100 mg tablet 05/08/2021 -- -- Babita Anthony MD traZODone (DESYREL) 150 mg tablet 05/07/2021 -- -- Provider, MD Babita No current facility-administered medications for this encounter. Current Outpatient Medications: ??? albuterol HFA (PROVENTIL HFA,VENTOLIN HFA,PROAIR HFA) 90 mcg/actuation inhaler ??? ALPRAZolam (XANAX) 0.5 mg tablet ??? buPROPion XL (WELLBUTRIN XL) 150 mg 24 hr tablet ??? cholecalciferol (VITAMIN D-3) 5,000 unit tablet ??? escitalopram (LEXAPRO) 20 mg tablet ??? fluticasone propionate (FLONASE) 50 mcg/actuation nasal spray ??? hydrOXYzine (ATARAX) 25 mg tablet ??? lamoTRIgine (LaMICtal) 100 mg tablet ??? montelukast (SINGULAIR) 10 mg tablet ??? nebivoloL (BYSTOLIC) 5 mg tablet ??? Ozempic 1 mg/dose (4 mg/3 mL) pen injector injection ??? spironolactone (ALDACTONE) 100 mg tablet ??? traZODone (DESYREL) 150 mg tablet Social History Tobacco Use Smoking Status Never Smoker Smokeless Tobacco Never Used Substance and Sexual Activity Alcohol Use No Substance and Sexual Activity Drug Use No Family History Problem Relation Age of Onset ??? Diabetes Other Family history of Diabetes mellitus; ??? Heart disease Other Family history of Heart disease; ??? COPD Other Family history of COPD; ??? Alcohol abuse Other Family history of Alcoholism; ??? Stroke Other Family history of Stroke; ??? Hypertension Other Family history of Hypertension; ??? Mental illness Other Family history of Mental illness; ??? Osteoarthritis Other Family history of Osteoarthritis; ??? Kidney disease Other Family history of Renal disease; ??? Ovarian cancer Paternal Grandmother ??? Stroke Maternal Grandmother ??? Stroke Maternal Grandfather ??? Heart disease Maternal Grandfather ??? Heart attack Maternal Grandfather ??? Anemia Father ??? Anesthesia problems Neg Hx There were no vitals filed for this visit. Relevant diagnostics: ECG(s): 02/25/19 SINUS TACHYCARDIAn 109 bpm NONSPECIFIC T-WAVE ABNORMALITY Other: CXR 02/24/19 FINDINGS: Heart size is normal. Pulmonary vascularity is normal . Thoracic aorta is not dilated. No infiltrate, mass or pleural effusion is seen. Bony structures are unremarkable. ?? IMPRESSION: 1. No active disease. PT: No results found for requested labs within last 720 hours. INR: No results found for requested labs within last 720 hours. APTT: No results found for requested labs within last 720 hours. Hgb A1C: No results found for requested labs within last 720 hours. CBC RBC: No results found for requested labs within last 720 hours. RDW: No results found for requested labs within last 720 hours. MCHC: No results found for requested labs within last 720 hours. MCH: No results found for requested labs within last 720 hours. MCV: No results found for requested labs within last 720 hours. Hct: No results found for requested labs within last 720 hours. Hgb: No results found for requested labs within last 720 hours. WBC: No results found for requested labs within last 720 hours. MPV: No results found for requested labs within last 720 hours. Platelets: No results found for requested labs within last 720 hours. RDW CV: No results found for requested labs within last 720 hours. RDW Sd: No results found for requested labs within last 720 hours. BMP Glucose: No results found for requested labs within last 720 hours. Calcium: No results found for requested labs within last 720 hours. Sodium: No results found for requested labs within last 720 hours. Potassium: No results found for requested labs within last 720 hours. CO2: No results found for requested labs within last 720 hours. Chloride: No results found for requested labs within last 720 hours. BUN: No results found for requested labs within last 720 hours. Creatinine: No results found for requested labs within last 720 hours. Pia index score: 100 DOS Physical Exam Medical history, medications, and allergies reviewed. Attestation: I endorse the findings of the anesthesia pre-evaluation assessment dated: 05/13/2021. Airway Exam: Mallampati: IV Cervical ROM: FROM TM distance: normal Cardiovascular Exam: Rate: regular Rhythm: regular Pulmonary Exam: LCTA, bilat EENT Exam: trachea midline Dental Exam: Appears intact Skin Exam: Skin is warm. Turgor is normal. Abdominal Exam: Abdomen is soft. Current state: Patient's current state is cooperative and interactive. Anesthesia Plan ASA 2 My patient is approved for the Anesthesia Controlled Medication protocol when under care of a RETAIL ADVISOR Planned anesthesia: MAC Induction: Induction: intravenous. Postoperative Plan: Postoperative administration opioids intended. No postoperative mechanical ventilation intended. Patient's planned disposition post procedure is Outpatient. No trial extubation planned. Informed Consent: Discussed plan with RETAIL ADVISOR. Anesthesia plan and risks discussed with patient. Consent and Attending signature: I and/or my designee have discussed the anesthesia plan, benefits, possible alternatives, parental presence at time of induction (if indicated), and clinically relevant risks that may include dental injury, unintentional awareness, and/or other complications. The patient and/or parent/legal guardian understand, and agree to proceed. All questions answered. FILL OPERATOR SURFACE FILL OPERATOR SURFACE FILL OPERATOR SURFACE documented in this encounter Plan of Treatment Not on file documented as of this encounter Visit Diagnoses Not on filedocumented in this encounter Administered Medications Inactive Administered Medications - up to 3 most recent administrations Medication Order MAR Action Action Date Dose Rate Site ceFAZolin (ANCEF) 2,000 mg/20 mL in sterile water (premix) 2,000 mg 2,000 mg, intravenous, at 400 mL/hr, Administer over 3 Minutes, Once, On Wed05/19/21 at 0945, For 1 dose, Pre-Op, Indications: Prophylaxis, SurgicalIndications:Prophylaxis , Surgical Given 05/19/2021 10:20 AM SANDFILL OPERATOR SURFACE 2,000 mg fentaNYL (SUBLIMAZE) preservative free injection intravenous, As needed, Starting on Wed05/19/21 at 1024, Anesthesia Intra-op Given 05/19/2021 10:28 AM SANDFILL OPERATOR SURFACE 25 mcg Given 05/19/2021 10:24 AM SANDFILL OPERATOR SURFACE 25 mcg Lactated Ringer's (LR) infusion 30 mL/hr, intravenous, Continuous, Starting on Wed05/19/21 at 0945, Pre-Op Rate/Dose Verify 05/19/2021 10:12 AM SANDFILL OPERATOR SURFACE 30 mL/hr New Bag 05/19/2021 9:27 AM SANDFILL OPERATOR SURFACE 30 mL/hr 30 mL/hr lidocaine (cardiac) (XYLOCAINE) preservative free injection intravenous, As needed, Starting on Wed05/19/21 at 1020, Anesthesia Intra-op, Indications: Ventricular ArrhythmiasIndications:Ventricular Arrhythmias Given 05/19/2021 10:20 AM SANDFILL OPERATOR SURFACE 40 mg midazolam (VERSED) 1 mg/mL preservative free injection intravenous, Administer over 2 Minutes, As needed, Starting on Wed05/19/21 at 1012, Anesthesia Intra-op Given 05/19/2021 10:12 AM SANDFILL OPERATOR SURFACE 2 mg phenylephrine (CHOLO-SYNEPHRINE) 1 mg/10 mL (100 mcg/mL) in sodium chloride 0.9% (premix) intravenous, As needed, Starting on Wed05/19/21 at 1034, Anesthesia Intra-op Given 05/19/2021 10:50 AM SANDFILL OPERATOR SURFACE 200 mc g Given 05/19/2021 10:39 AM SANDFILL OPERATOR SURFACE 200 mcg Given 05/19/2021 10:34 AM SANDFILL OPERATOR SURFACE 100 mcg propofoL (DIPRIVAN) 10 mg/mL IV intravenous, As needed, Starting on Wed05/19/21 at 1020, Anesthesia Intra-op Given 05/19/2021 10:20 AM SANDFILL OPERATOR SURFACE 50 mg propofoL (DIPRIVAN) 10 mg/mL IV intravenous, Continuous PRN, Starting on 05/19/21 at 1020, Anesthesia Intra-op Rate/Dose Change 05/19/2021 10:49 AM SANDFILL OPERATOR SURFACE 50 mcg/kg/min 32.67 mL/hr Rate/Dose Change 05/19/2021 10:44 AM SANDFILL OPERATOR SURFACE 75 mcg/kg/min 49. 005 mL/hr Rate/Dose Change 05/19/2021 10:41 AM SANDFILL OPERATOR SURFACE 90 mcg/kg/min 58. 806 mL/hr documented in this encounter Care Teams Leather Staker Relationship Specialty Start Date End Date Martha Lawrence MD [address] [employer] [facility] [address] PCP - General 02/24/19 Zoran Willams Family Medicine 05/18/18 documented as of this encounter
--- OUTSIDE RECORDS SUMMARY | 2024-05-13 22:22 | XMS_ITS | Encounter Summary ---
Author Organization [facility] Address [address] [place] [address] Care Team Providers Care Certified Professional Midwife Name Role Phone Zoran Willams Unavailable Unavailable Martha Lawrence MD Primary Care Provider +1- [phone] Reason for Visit * Reason Comments Follow-up Encounter Details Date Type Department Care Team (Late st Contact Info) Description 01/18/2020 4:30 PM CDT Office Visit [facility] ENT Specialists - [facility] [address] [place] [id number] Brit Montes, [address] [place] [address] Dysfunction of both eustachian tubes (Primary Dx) Social History Tobacco Use Types Packs/Day Years Used Date Smoking Tobacco: Never Smokeless Tobacco: Never Alcohol Use Standard Drinks/Week Comments No 0 (1 standard drink = 0.6 oz pur e alcohol) Comments No Sex and Gender Information Value Date Recorded Sex Assigned at Not on file Legal Sex Female 10:37 AM LAW ENFORCEMENT OFFICER Gender Identity Not on file Sexual Orientation Not on file documented as of this encounter Last Filed Vital Signs Vital Sign Reading Time Taken Comments Blood Pressure 124/88 01/18/2020 4:38 PM CDT Pulse 85 01/18/2020 4:38 PM CDT Temperature 36.4 ??C (97.5 ??F) 01/18/2020 4:38 PM CD T Respiratory Rate - - Oxygen Saturation - - Inhaled Oxygen Concentration - - Weight 100.2 kg (221 lb) 01/18/2020 4:38 PM CDT Height 167.6 cm (5' 6 ) 01/18/2020 4:38 PM CDT Body Mass Index 35.67 01/18/2020 4:38 PM CDT documented in this encounter Patient Instructions * Patient Instructions* Brit Montes DO - 01/18/2020 4:30 PM CDT Avoid ear cleaning techniques Avoid water to ears Nasal saline spray (Simply saline, Little Remedies, [place], [place]) 2 second sprays or 2 squeezes into each nostril while looking down over the sink, do not need to sniff in. Follow up in 6 months, earlier with any ear drainage documented in this encounter Progress Notes * Brit Montes, - 01/18/2020 4:30 PM CDT Images from the original note were not included. ENT Progress Note Reason for Follow up: ear tube check Requesting Provider: No att. providers found SUBJECTIVE: Patient was following up for ear tube check. HPI: Micole reported complaint being improved, no ear drainage or ear infections. Last seen: 07/21/2019 ETD (Eustachian tube dysfunction), left (Primary) Assessment & Plan: Avoid ear cleaning techniques Avoid water to ears Follow up in 6 months, earlier with any ear drainage Current Outpatient Medications on File Prior to Visit Medication Sig Dispense Refill ??? albuterol HFA (PROVENTIL HFA,VENTOLIN HFA,PROAIR HFA) 90 mcg/actuation inhaler 2 puffs every 6 (six) hours as needed ??? buPROPion XL (WELLBUTRIN XL) 150 mg 24 hr tablet Take 150 mg by mouth every morning ??? cholecalciferol (VITAMIN D-3) 5,000 unit tablet Vitamin D3 125 mcg (5,000 unit) tablet TAKE 1 TABLET BY MOUTH EVERY DAY IN THE MORNING ??? escitalopram (LEXAPRO) 20 mg tablet 20 mg every morning ??? lamoTRIgine (LaMICtal) 25 mg tablet 100 mg nightly ??? latanoprost (XALATAN) 0.005 % ophthalmic solution latanoprost 0.005 % eye drops INSTILL 1 DROP INTO RIGHT EYE AT BEDTIME ??? metFORMIN XR (GLUCOPHAGE XR) 500 mg 24 hr tablet Take 500 mg by mouth daily with breakfast ??? montelukast (SINGULAIR) 10 mg tablet Take 10 mg by mouth nightly ??? semaglutide (Rybelsus) 7 mg tablet every morning ??? spironolactone (ALDACTONE) 100 mg tablet Take 100 mg by mouth every morning ??? traMADoL (ULTRAM) 50 mg tablet Take 1 tablet (50 mg total) by mouth every 6 (six) hours as needed (severe pain that does not improve with just Tylenol / Ibuprofen) 8 tablet 0 ??? traZODone (DESYREL) 50 mg tablet Take 150 mg by mouth nightly No current facility-administered medications on file prior to visit. Allergies Allergen Reactions ??? Penicillins Hives ??? Sulfasalazine Hives and Rash ??? Sulfa (Sulfonamide Antibiotics) Eye irritation Reaction: itchy eyes, , ??? Sulfanilamide Other (See comments) Reaction: Conjunctivitis, ??? Oxycodone-Acetaminophen Diarrhea, Nausea Only and Vomiting OBJECTIVE: Vitals BP 124/88 (BP Location: Left arm, Patient Position: Sitting) Pulse 85 Temp 36.4 ??C (97.5 ??F) (Temporal) Ht 167.6 cm (5' 6 ) Wt 100.2 kg (221 lb) BMI 35.67 kg/m?? Review of Systems HENT: Negative for congestion, ear discharge, ear pain, postnasal drip and rhinorrhea. Physical Exam Constitutional: She is oriented to person, place, and time. She appears well- developed. She is cooperative. No distress. HENT: Head: Normocephalic and atraumatic. Right Ear: Hearing, tympanic membrane, external ear and ear canal normal. Left Ear: Hearing, tympanic membrane, external ear and ear canal normal. Nose: Mucosal edema present. No rhinorrhea, sinus tenderness or nasal deformity. Mouth/Throat: Uvula is midline, oropharynx is clear and moist and mucous membranes are normal. No oral lesions. Right ear: T-tube in place, patent, no otorrhea Left ear: T-tube in place, patent, no otorrhea Eyes: Pupils are equal, round, and reactive to light. Conjunctivae and lids are normal. Neck: Trachea normal and full passive range of motion without pain. Neck supple. Cardiovascular: No edema, no JVD, normal distal perfusion Pulmonary/Chest: Effort normal. No respiratory distress. No cough, wheezing or stridor Abdominal: Normal appearance. Musculoskeletal: Normal range of motion. Left shoulder: Normal. Lymphadenopathy: She has no cervical adenopathy. Neurological: She is alert and oriented to person, place, and time. No cranial nerve deficit. Coordination and gait normal. Skin: Skin is warm and dry. No rash noted. Nails show no clubbing. Psychiatric: Her speech is normal and behavior is normal. Assessment & Plan: Diagnoses and all orders for this visit: Dysfunction of both eustachian tubes (Primary) Assessment & Plan: Avoid ear cleaning techniques Avoid water to ears Nasal saline spray (Simply saline, Little Remedies, [place], [place]) 2 second sprays or 2 squeezes into each nostril while looking down over the sink, do not need to sniff in. Follow up in 6 months, earlier with any ear drainage 07/06/2019 T-tubes placed in Office Brit Montes DO documented in this encounter Miscellaneous Notes * Assessment & Plan Note - Brit Montes DO - 01/18/2020 4:53 PM CDT Associated Problem(s): Dysfunction of both eustachian tubes Avoid ear cleaning techniques Avoid water to ears Nasal saline spray (Simply saline, Little Remedies, [place], [place]) 2 second sprays or 2 squeezes into each nostril while looking down over the sink, do not need to sniff in. Follow up in 6 months, earlier with any ear drainage 07/06/2019 T-tubes placed in Office documented in this encounter Plan of Treatment Not on file documented as of this encounter Visit Diagnoses Diagnosis Dysfunction of both eustachian tubes- Primary documented in this encounter Care Teams Certified Professional Midwife Relationship Specialty Start Date End Date Martha Lawrence MD [address] [place] [address] PCP - General 02/24/19 Zoran Willams Family Medicine 05/18/18 documented as of this encounter
--- OUTSIDE RECORDS SUMMARY | 2024-05-13 22:22 | XMS_ITS | Encounter Summary ---
Author Organization [facility] Address [address] [place] [address] Care Team Providers Care Metal Spinner Name Role Phone Zoran Willams Unavailable Unavailable Martha Lawrence MD Primary Care Provider [phone]- [phone] Encounter Details Date Type Department Care Team (Late st Contact Info) Description 04/06/2023 3:35 PM COURTESY CAR DRIVER Lab [address] [address] Polycystic ovarian syndrome; Prediabetes; Vitamin D deficiency Social History Tobacco Use Types Packs/Day Years [...] on file Legal Sex Female 10:37 AM COURTESY CAR DRIVER Gender Identity Not on file Sexual Orientation Not on file documented as of this encounter Plan of Treatment Not on file documented as of this encounter Procedures Procedure Name Priority Date/Time Associated Diagnosis Comments EGFR Routine 04/06/2023 3:38 PM COURTESY CAR DRIVER Polycystic ovarian syndrome Prediabetes THYROID FUNCTION CASCADE Routine 04/06/2023 3:38 PM COURTESY CAR DRIVER Polycystic ovarian syndrome Prediabetes VITAMIN D 25 HYDROXY Routine 04/06/2023 3:38 PM COURTESY CAR DRIVER Vitamin D deficiency HEMOGLOBIN A1C Routine 04/06/2023 3:38 PM COURTESY CAR DRIVER Polycystic ovarian syndrome Prediabetes LIPID PANEL Routine 04/06/2023 3:38 PM COURTESY CAR DRIVER Polycystic ovarian syndrome Prediabetes COMPREHENSIVE METABOLIC PANEL Routine 04/06/2023 3:38 PM COURTESY CAR DRIVER Polycystic ovarian syndrome Prediabetes documented in this encounter Results * eGFR (04/06/2023 3:38 PM COURTESY CAR DRIVER) [facility] eGFR 55 mL/min/1. 73 m2 [facility] Comment: Interpretive Data Reference Interval Normal ?>/= 90 mL/min/1.73m2 Mildly decreased* ? 60 - 89 mL/min/1.73m2 Mildly to moderately decreased ?45 - 59 mL/min/1.73m2 Moderately to severely decreased ??30 - 44 mL/min/1.73m2 Severely decreased ?15 - 29 mL/min/1.73m2 Kidney Failure ?< 15 ??mL/min/1.73m2 *Relative to young adult level Estimated glomerular filtration rate is determined by the 2020 CKD-EPI equation recommended by the National Kidney Foundation (A Unifying Approach to GFR Estimation: Recommendations of the NKF-ASK Task Force on Reassessing the Inclusion of Race in Diagnosing Kidney Disease, JASN 202). The CKD-EPI equation should not be used for patients with unstable renal function and has not been validated in children and those over 70. Current interpretive data was last reviewed 2021. Blood 04/06/2023 3:38 PM COURTESY CAR DRIVER 04/06/2023 5:59 PM COURTESY CAR DRIVER us Bryn Sharpe MD LAB [place]LOOD [place] [address] [address] Department [place] [address] * (ABNORMAL) Comprehensive metabolic panel (04/06/2023 3:38 PM COURTESY CAR DRIVER) Sodium 137 135 - 145 mmol/L [facility] Potassium, pl 4.2 3.3 - 4.9 mmol/L [facility] Chloride 99 97 - 110 mmol/L [facility] CO2 26 22 - 32 mmol/L [facility] Anion gap 12 2 - 15 mmol/L [facility] BUN 12 6 - 25 mg/dL [facility] Creatinine 1.26(H) 0.60 - 1.10 mg/dL [facility] Glucose 90 70 - 199 mg/dL [facility] Comment: Interpretive Data Fasting glucose >/= 126 mg/dl is diagnostic for diabetes. ?? Fasting is defined as no caloric intake for at least 8 hours. Fasting glucose between 100 mg/dl to 125 mg/dl is diagnostic of prediabetes. In a patient with classic symptoms of hyperglycemia or hyperglycemic crisis, a random glucose >/= 200 mg/dl is diagnostic for diabetes. In the absence of unequivocal hyperglycemia, results should be confirmed by repeat testing. The classification and Diagnosis of Diabetes Diabetes Care 202; 46: S19-S40. Current interpretive data was last revised 2022. Calcium 9.4 8.5 - 10.3 mg/dL [facility] Bilirubin, total 0.4 0.1 - 1.2 mg/dL [facility] Protein, pl 7.3 6.5 - 8.5 g/dL [facility] Albumin 4.4 3.5 - 5.0 g/dL [facility] Alk phos 93 40 - 130 Units/L [facility] ALT 17 7 - 45 Units/L [facility] AST 29 10 - 45 Units/L [facility] Blood 04/06/2023 3:38 PM COURTESY CAR DRIVER 04/06/2023 5:40 PM COURTESY CAR DRIVER Bryn Sharpe MD LAB BLOOD ORDERABLE S Final Result [facility] [address] [address] [place] [address] * (ABNORMAL) Lipid panel (04/06/2023 3:38 PM COURTESY CAR DRIVER) Cholesterol 175 30 - 199 mg/dL [facility] Comment: Interpretive Data Ages < or = 19 years ??Acceptable: ? <170 mg/dL ??Borderline high: ??170-199 mg/dL ??High: ? >or= 200 mg/dL Ages > or = 20 years ??Desirable: ?<200 mg/dL ??Borderline high: ??200-239 mg/dL ??High: ? >or= 240 mg/dL Literature References: 1. Expert Panel on Integrated Guidelines for Cardiovascular Health and Risk Reduction in Children and Adolescents. Pediatrics 2011;128:S213 2. NCEP Expert Panel. Circulation 2004;110:227 Current Interpretive Data was last revised on 2017. Triglycerides 214(H) <=149 mg/dL [facility] OR[facility] Comment: Interpretive Data Ages < or = 9 years ??Acceptable: ? <75 mg/dL ??Borderline high: ??75-99 mg/dL ??High: ? >or= 100 mg/dL Ages 10 to 20 years ??Acceptable: ? <90 mg/dL ??Borderline high: ??90-129 mg/dL ??High: ? >or= 130 mg/dL Ages > or = 20 years ??Desirable: ?<150 mg/dL ??Borderline high: ??150-199 mg/dL ??High: ? 200-499 mg/dL ?Very high: ?? >or= 499 mg/dL Literature References: 1. Expert Panel on Integrated Guidelines for Cardiovascular Health and Risk Reduction in Children and Adolescents. Pediatrics 2011;128:S213 2. NCEP Expert Panel. Circulation 2004;110:227 Current Interpretive Data was last revised on 2017. HDL 32(L) >=40 mg/dL [facility] Comment: Interpretive Data Ages < or = 19 years ??Acceptable: ? >45 mg/dL ??Borderline low: ?? 40-45 mg/dL ??Low: ? <40 mg/dL Ages > or = 20 years ??Desirable: ?>or= 60 mg/dL ??Low: ? <40 mg/dL Literature References: 1. Expert Panel on Integrated Guidelines for Cardiovascular Health and Risk Reduction in Children and Adolescents. Pediatrics 2011;128:S213 2. NCEP Expert Panel. Circulation 2004;110:227 Current Interpretive Data was last revised on 2017. LDL, calculated 100 <=129 mg/dL [facility] Comment: Interpretive Data Ages < or = 19 years ??Acceptable: ? <110 mg/dL ??Borderline high: ??110-129 mg/dL ??High: ?>or= 130 mg/dL Ages > or = 20 years ??Optimal: ? <100 mg/dL ??Near optimal: ?100-129 mg/dL ??Borderline high: ?? 130-159 mg/dL ??High: ?>160 mg/dL Literature References: 1. Expert Panel on Integrated Guidelines for Cardiovascular Health and Risk Reduction in Children and Adolescents. Pediatrics 2011;128:S213 2. NCEP Expert Panel. Circulation 2004;110:227 Current Interpretive Data was last revised on 2017. Non-HDL Cholesterol 143 mg/dL [facility] Comment: Interpretive Data Ages < or = 19 years ??Acceptable: ?<120 mg/dL ??Borderline high: ??120-144 mg/dL ??High: ?>145 mg/dL Ages > or = 20 years ??When triglycerides are >200 mg/dL, Non-HDL cholesterol is a secondary target of ? therapy with treatment goals that are 30 mg/dL greater than the LDL cholesterol target. ? Literature References: 1. Expert Panel on Integrated Guidelines for Cardiovascular Health and Risk Reduction in Children and Adolescents. Pediatrics 2011;128:S213 2. NCEP Expert Panel. Circulation 2004;110:227 Current Interpretive Data was last revised on 2017. Chol/HDL ratio 5 [facility] Blood 04/06/2023 3:38 PM COURTESY CAR DRIVER 04/06/2023 5:40 PM COURTESY CAR DRIVER Bryn Sharpe MD LAB BLOOD ORDERABLE S Final Result Performing Organization Address [facility] de Phone Number [facility] [address] [address] Department [employer] [place], [place] [id number] * Hemoglobin A1c (04/06/2023 3:38 PM COURTESY CAR DRIVER) Pathologist [facility] Hgb A1C 5.3 4.0 - 5.6 % [facility] Estimated Average Glucose 105 mg/dL [facility] Comment: The ADA recommends reporting an estimated Average Glucose (eAG) with all Hemoglobin A1c results using the equation derived from a study of 507 normal and diabetic adults. ??Minority populations were underrepresented and children were not included. ?? (Diabetes Care 31:2984-4742, 2008). ??The eAG is not equivalent to a fasting glucose. Blood 04/06/2023 3:38 PM COURTESY CAR DRIVER 04/06/2023 5:40 PM COURTESY CAR DRIVER Bryn Sharpe MD LAB BLOOD ORDERABLE S Final Result Performing Organization Address City/[facility] Co de Phone Number [facility] [address] [address] [place] [address] * Vitamin D 25 hydroxy (04/06/2023 3:38 PM COURTESY CAR DRIVER) Pathologist [facility] Vitamin D 25-OH 34 30 - 80 ng/mL [facility] Blood 04/06/2023 3:38 PM COURTESY CAR DRIVER 04/06/2023 5:40 PM COURTESY CAR DRIVER Bryn Sharpe MD LAB BLOOD ORDERABLE S Final Result [facility] [address] [place] [address] * TSH reflex to free T4 (04/06/2023 3:38 PM COURTESY CAR DRIVER) TSH 0.76 0.30 - 4.20 mcIUnit/mL [facility] Blood 04/06/2023 3:38 PM COURTESY CAR DRIVER 04/06/2023 5:40 PM COURTESY CAR DRIVER us Supraja Dell Sharpe MD LAB BLOOD ORDERABLE S Final Result Performing Organization Address City/[facility]/ZIP Co de Phone Number [facility] [address] [address] Department [place] [address] documented in this encounter Visit Diagnoses Diagnosis Polycystic ovarian syndrome Polycystic ovaries Prediabetes Other abnormal glucose Vitamin D deficiency documented in this encounter Care Teams Metal Spinner Relationship Specialty Start Date End Date Martha Lawrence MD [address] [place] [address] PCP - General 02/24/19 Zoran Willams Family Medicine 05/18/18 documented as of this encounter
--- OUTSIDE RECORDS SUMMARY | 2024-05-13 22:22 | XMS_ITS | Encounter Summary ---
Author Organization [facility] Address [address] [place] [address] Phone Care Team Providers Care Pediatric Physical Therapist Name Role Phone Zoran Willams Unavailable Unavailable Martha Lawrence MD Primary Care Provider +1- [phone] Encounter Details Date Type Department Care Team (Late st Contact Info) Description 03/26/2021 Telephone [facility] Surgery [address] [place] [address] [place] [phone] Meggan Martinez MD [address] [id number] Social History Tobacco Use Types Packs/Day Years Used Date Smoking Tobacco: Never Smokeless Tobacco: Never Alcohol Use Standard Drinks/Week Comments No 0 (1 standard drink = 0.6 oz pur e alcohol) Comments No Sex and Gender Information Value Date Recorded Sex Assigned at Not on file Legal Sex Female 10:37 AM PAPERHANGER SUPERVISOR Gender Identity Not on file Sexual Orientation Not on file documented as of this encounter Miscellaneous Notes * Telephone Encounter - Alex López - 03/26/2021 3:57 PM CST Pt called about her FMLA paper work and which days she want off i'm sending it to Vladimir RHANGER SUPERVISOR documented in this encounter Plan of Treatment Not on file documented as of this encounter Visit Diagnoses Not on filedocumented in this encounter Care Teams Pediatric Physical Therapist Relationship Specialty Start Date End Date Martha Lawrence MD [address] [employer] [employer] [facility] [place] [address] PCP - General 02/24/19 Zoran Willams Family Medicine 05/18/18 documented as of this encounter
--- OUTSIDE RECORDS SUMMARY | 2024-05-13 22:22 | XMS_ITS | Encounter Summary ---
Author Organization [facility] Healthcare Address [address] [place] [address] Care Team Providers Care Silk Crepe Machine Operator Name Role Phone Zoran Willams Unavailable Unavailable Martha Lawrence MD Primary Care Provider +1- [phone] Encounter Details Date Type Department Care Team (Late st Contact Info) Description 05/16/2021 1:00 PM ORACLE R12 DEVELOPER Lab [address] [address] Pre-operative laboratory examination Social History Tobacco Use Types Packs/Day Years [...] on file Legal Sex Female 10:37 AM ORACLE R12 DEVELOPER Gender Identity Not on file Sexual Orientation Not on file documented as of this encounter Plan of Treatment Not on file documented as of this encounter Procedures Procedure Name Priority Date/Time Associated Diagnosis Comments COVID-19 CORONAVIRUS RNA Routine 05/16/2021 8:34 AM ORACLE R12 DEVELOPER Pre-operative laboratory examination documented in this encounter Results * COVID-19 Coronavirus RNA Nasopharyngeal (05/16/2021 8:34 AM ORACLE R12 DEVELOPER) COVID-19 RNA Not Detected [facility] Comment: Interpretive Data Synonyms for this test include: PCR and NAAT . ??Testing performed by the [facility] Infectious Disease [facility]. The 2019-Novel Coronavirus Assay (COVID-19) Real Time RT-PCR assay is for in vitro diagnostic use under FDA emergency use authorization only. A negative RT-PCR result does not preclude infection with COVID-19 and should not be used as the sole basis for treatment or other patient management decisions. ??Additional sample types have been validated according to CLIA regulations. ?? Current Interpretive Data was last revised on June 13, 2020. Testing performed by: [facility], [address] [place] [address], [id number] First COVID-19 test? No [facility] Comment:Testing performed by : [facility], [address] [place] [address], [address] Employeed in healthcare? No [facility] Comment:Testing performed by : [facility], [address] [place] [address], [id number] status? No [facility] Comment:Testing performed by : [facility], [address] [place] [address], [address] Group care resident? No [facility] Comment:Testing performed by : [facility], [address] [place] [address], [address] Hospitalized? No [facility] Comment:Testing performed by : [facility], [address] [place] [address], [address] Is patient in ICU? No [facility]ER Comment:Testing performed by : [facility], [address] [place] [address], [id number] Symptomatic as defined by CDC? No C[facility]ER Comment:Testing performed by : [facility], [address] [place] [address], [address] Nasopharyngeal 05/16/2021 8: 34 AM ORACLE R12 DEVELOPER 05/16/2021 6:20 PM ORACLE R12 DEVELOPER Narrative [facility] - 05/17/2021 6:14 AM ORACLE R12 DEVELOPER What is the reason for testing?->Screening prior to scheduled procedure or surgery (batch) Meggan Martinez MD LAB MICROBIOLOGY - GENE [facility] ORDERABLES Final Result [facility] [address] Department of Laboratories [place], [place] [id number] documented in this encounter Visit Diagnoses Diagnosis Pre-operative laboratory examination Pre-procedural laboratory examination documented in this encounter Care Teams Silk Crepe Machine Operator Relationship Specialty Start Date End Date Martha Lawrence MD [address] [facility] [place] [address] PCP - General 02/24/19 Zoran Willams Family Medicine 05/18/18 documented as of this encounter
--- OUTSIDE RECORDS SUMMARY | 2024-05-13 22:22 | XMS_ITS | Encounter Summary ---
Author Organization [facility] Address [address] [place] [address] Phone Care Team Providers Care Metal Organ Pipe Maker Name Role Phone Zoran Willams Unavailable Unavailable Martha Lawrence MD Primary Care Provider +1- [phone] Reason for Visit * Reason Comments Follow-up Encounter Details Date Type Department Care Team (Late st Contact Info) Description 03/18/2021 2:30 PM POSTING MACHINE OPERATOR Office Visit 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 Department of Surgery [address] ?? [place] [address] ? 03/18/2021 CHIEF COMPLAINT: Evaluation of right nipple discharge. HISTORY OF PRESENT ILLNESS: Ms. Jewell is a 41 y.o. woman who presents today for evaluation of rightnipple discharge. She has a previous history of bilateral nipple discharge. She has previously undergone a directed duct excision on the right side for papilloma and a left central duct excision on the left side for papilloma. She now reports new right nipple discharge that began several weeks ago.It is yellow or yellow-orange in color and emanates from a single duct. She denies any obvious bloody discharge. She denies any masses in either breast. She denies any change in the appearance of herbreasts or the skin of her breasts. She has no other systemic complaints and otherwise feels well today. Past Medical History: Diagnosis Date ??? Depression Depression ??? GERD (gastroesophageal reflux disease) ??? Glaucoma glaucoma ??? HX OTHER MEDICAL L/R cataract extraction ??? HX OTHER MEDICAL Detached Retina ??? HX OTHER MEDICAL Scar tissure removal Left Eye ??? HX OTHER MEDICAL myringotomy tubes ??? HX OTHER MEDICAL Menorrhagia ??? HX OTHER MEDICAL [place] teeth extraction 12/18 ??? 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 HX OTHER MEDICAL right lens implant -2011 ??? HX OTHER MEDICAL OPTHO ??? HX [...] myringotomy tubes: 1989 ??? 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 HISTORY 01-escrow agent: [facility] ??? 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 HISTORY right lens implant -2011: Dr Barrios - [facility] ??? 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 HISTORY 2012 breast bx R - benign ??? 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 HISTORY milk duct removed right breast ; benign papilloma: Dr Alonso [facility] ??? 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 HISTORY left eye removed 02-10-12, prosthetic: Dr Fidel Hsu - [facility] ??? 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 HISTORY 1982 retinal reattachment ??? 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 HISTORY 2011 eye removal ??? 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 HISTORY 2011 milk duct removal ??? TONSILLECTOMY AND ADENOIDECTOMY ??? TYMPANOSTOMY TUBE PLACEMENT 1992 tubes in ears Prior to Admission medications Medication Sig Start Date End Date Taking? Authorizing Provider albuterol HFA (PROVENTIL HFA,VENTOLIN HFA,PROAIR HFA) 90 mcg/actuation inhaler albuterol sulfate HFA 90 mcg/actuation aerosol inhaler 01/20/19 Yes Historical Provider, amLODIPine (NORVASC) 10 mg tablet 03/13/19 Yes Historical Provider, buPROPion XL (WELLBUTRIN XL) 150 mg 24 hr tablet bupropion HCl XL 150 mg 24 hr tablet, extended release Yes Historical Provider, cholecalciferol (VITAMIN D-3) 5,000 unit tablet Vitamin D3 125 mcg (5,000 unit) tablet TAKE 1 TABLET BY MOUTH EVERY DAY IN THE MORNING Yes Historical Provider, escitalopram (LEXAPRO) 20 mg tablet daily Yes Historical Provider, fluticasone propionate (FLONASE) 50 mcg/actuation nasal spray Administer 2 sprays into each nostrildaily 05/20/19 05/19/20 Yes Homer Contreras, RIZWAN lamoTRIgine (LaMICtal) 25 mg tablet lamotrigine 25 mg tablet TAKE 2 TABLETS BY MOUTH EVERY DAY AT BEDTIME Yes Historical Provider, latanoprost (XALATAN) 0.005 % ophthalmic solution latanoprost 0.005 % eye drops INSTILL 1 DROP INTO RIGHT EYE AT BEDTIME 03/05/18 Yes Historical Provider, metFORMIN XR (GLUCOPHAGE XR) 500 mg 24 hr tablet 04/20/19 Yes Historical Provider, montelukast (SINGULAIR) 10 mg tablet Take 10 mg by mouth daily 10/31/19 Yes Historical Provider, prazosin (MINIPRESS) 1 mg capsule TAKE 1 CAPSULE BY MOUTH EVERYDAY AT BEDTIME 09/27/19 Yes Historical Provider, predniSONE (DELTASONE) 10 mg tablet prednisone 10 mg tablet PLEASE SEE ATTACHED FOR DETAILED DIRECTIONS Yes Historical Provider, semaglutide (Rybelsus) 7 mg tablet Rybelsus 7 mg tablet TAKE 1 TABLET BY MOUTH EVERY DAY IN THE MORNING Yes Historical Provider, spironolactone (ALDACTONE) 100 mg tablet daily Yes Historical Provider, spironolactone (ALDACTONE) 50 mg tablet 05/13/19 Yes Historical Provider, traZODone (DESYREL) 50 mg tablet trazodone 50 mg tablet Yes Historical Provider, venlafaxine (EFFEXOR) 75 mg tablet Take 75 mg by mouth daily. 09/02/17 Yes Historical Provider, venlafaxine XR (EFFEXOR-XR) 37.5 mg 24 hr capsule TAKE 2 CAPSULES DAILY X 7 DAYS THEN 1 CAPSULE DAILY X 7 DAYS THEN STOP 09/27/19 Yes Historical Provider, fluticasone propionate (FLONASE) 50 mcg/actuation nasal spray Administer 2 sprays into each nostrildaily 05/26/19 06/25/19 Brit Montes, DO Allergies Allergen Reactions ??? Penicillins Hives ??? Sulfasalazine Hives and Rash ??? Sulfa (Sulfonamide Antibiotics) Eye irritation Reaction: itchy eyes, , ??? Sulfanilamide Other (See comments) Reaction: Conjunctivitis, ??? Oxycodone-Acetaminophen Diarrhea, Nausea Only and Vomiting Social History Socioeconomic History ??? Marital status: Single Spouse name: None ??? Number of children: None ??? Years of education: None ??? Highest education level: None Occupational History ??? None Tobacco Use ??? Smoking status: Never Smoker ??? Smokeless tobacco: Never Used Substance and Sexual Activity ??? Alcohol use: No ??? Drug use: No ??? Sexual activity: Defer Other Topics Concern ??? ADL RESPONSE ??? ADL RESPONSE ??? ADL RESPONSE Yes Comment: 100 oz coffee tea /day ??? ADL RESPONSE ??? ADL RESPONSE ??? ADL RESPONSE ??? ADL RESPONSE ??? ADL RESPONSE ??? ADL RESPONSE ??? ADL RESPONSE ??? ADL RESPONSE ??? ADL RESPONSE ??? ADL RESPONSE ??? ADL RESPONSE Social History Narrative ??? None Social Determinants of Health Financial Resource Strain: Not on file Food Insecurity: Not on file Transportation Needs: Not on file Physical Activity: Not on file Stress: Not on file Social Connections: Not on file Intimate Partner Violence: Not on file Housing Stability: Not on file Family History Problem Relation Age of Onset [...] Grandfather ??? Heart disease Maternal Grandfather ??? Anesthesia problems Neg Hx ROS: Pertinent items are noted in HPI. A comprehensive review of systems was negative. PHYSICAL EXAMINATION: GENERAL: She is a well-developed, well-nourished woman in no acute distress. HEENT: Within normal limits. NECK: Neck is supple without lymphadenopathy or thyromegaly. LUNGS: Clear. HEART: Regular. ABDOMEN: Soft without organomegaly. EXTREMITIES: Warm without edema. NEUROLOGICAL: She is alert and oriented x 3. BREAST EXAMINATION: Bilateral breast examination reveals normal ptotic breasts bilaterally. The left breast is without any dominant masses, skin changes, nipple discharge, or axillary adenopathy. Theright breast is without any dominant masses, skin changes, or axillary adenopathy. However, compression of the right nipple reveals a voluminous amount of yellow discharge from a one o'clock duct. IMAGING: I personally reviewed all of the imaging today. She underwent bilateral diagnostic mammograms, tomosynthesis, and a right breast ultrasound. The left breast was given a category 1 and the right breast is given a category 2. There are two intraductal masses and/or debris int he right subareolar region within 1 cm of the nipple consistent with likely papillomas. IMPRESSION/RECOMMENDATION: Ms. Jewell is a 41 y.o. woman who presents today for consultation regarding her right nipple discharge. I reviewed the clinical and imaging findings with her. I explained toher that I do consider this to be a pathologic finding in that it is spontaneous, from a single spot in a single nipple, and associated with an imaging finding. I expect that this is additional papillomas given her prior history. We discussed core biopsy for diagnosis versus proceeding with a definitive excision given her symptoms. She would like to proceed with excision. I would recommend a central duct excision at this point given her history. I explained the risks, benefits, and alternativesof this procedure which include, but are not limited to: bleeding, infection, and anesthetic risk. She understands and wishes to proceed. I will make arrangements to schedule this in the operating room as soon as possible. I will also arrange for her evaluation in the pre-operative center. I answered all of her questions. I encouraged her to contact me in the interim if any new questions or concerns arise. Meggan Martinez MD ING MACHINE OPERATOR documented in this encounter Plan of Treatment Not on file documented as of this encounter Visit Diagnoses Diagnosis Nipple discharge in female- Primary documented in this encounter Care Teams Metal Organ Pipe Maker Relationship Specialty Start Date End Date Martha Lawrence MD [facility] [place] [address] PCP - General 02/24/19 Zoran Willams Family Medicine 05/18/18 documented as of this encounter
--- OUTSIDE RECORDS SUMMARY | 2024-05-13 22:22 | XMS_ITS | Encounter Summary ---
Author Organization [facility] Address [address] [place] [address] Phone Care Team Providers Care Senior Information Security Engineer Name Role Phone Zoran Willams Unavailable Unavailable Martha Lawrence MD Primary Care Provider [phone]- [phone] Reason for Referral * Consultation (Routine) - Closed Specialty Diagnoses / Procedures Referred By Joelle lopez Referred To Contact Family Medicine Diagnoses Pre-operative laboratory examination Meggan Martinez MD [address] [address] Phone: tel: fax: [facility] Referral ID Status Reason Start Date Expiration Date V isits Requested Visits Authorized [id number] Closed Specialty Services Required 04/01/2021 05/01/2022 1 1 Question Answer Testing types: Pre-procedure Date of Procedure/Chemo/Treatment 05/19/2021 Testing site patient will be sent to: [facility] Testing: COVID-19 RNA Does the patient currently work in a healthcare facility with direct patient contact? Unknown Is the patient a resident of a congregate care or living setting? Unknown ? Unknown Date testing requested: 05/16/2021 Testin in 1? (COVID, FLU A/B, RSV) Please select the performing region: [facility] [[id number]] Comments Renny Herring Location VING SUPERVISOR Encounter Details Date Type Department Care Team (Late st Contact Info) Description 04/01/2021 Orders Only [facility] Surgery [address] [facility] 5th [place] [address] [place] [address] Meggan Martinez MD [address] [facility] [address] [place] [address] Social History Tobacco Use Types Packs/Day Years Used Date Smoking Tobacco: Never Smokeless Tobacco: Never Alcohol Use Standard Drinks/Week Comments No 0 (1 standard drink = 0.6 oz pur e alcohol) Comments No Sex and Gender Information Value Date Recorded Sex Assigned at Not on file Legal Sex Female 10:37 AM SHELVING SUPERVISOR Gender Identity Not on file Sexual Orientation Not on file documented as of this encounter Plan of Treatment Scheduled Referrals Name Type Priority Associated Diagnoses Order Schedule Request for Ambulatory Collection Site Testing - Adult Outpatient Referral Routine Ordered: 04/01/2021 documented as of this encounter Visit Diagnoses Not on filedocumented in this encounter Care Teams Senior Information Security Engineer Relationship Specialty Start Date End Date Martha Lawrence [place] [address] PCP - General 02/24/19 Zoran Willams Family Medicine 05/18/18 documented as of this encounter
--- OUTSIDE RECORDS SUMMARY | 2024-05-13 22:22 | XMS_ITS | Encounter Summary ---
Author Organization [facility] Address [address] [place] [address] Phone Care Team Providers Care Parking Lot Manager Name Role Phone Zoran Willams Unavailable Unavailable Martha Lawrence MD Primary Care Provider +1- [phone] Reason for Visit * Reason Comments Follow-up Encounter Details Date Type Department Care Team (Late st Contact Info) Description 01/23/2020 3:45 PM CDT Telemedicine [facility] Surgery [address] 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 Meggan Martinez M.D., [facility] ?? Department of Surgery [address] [place] [address] ?? [place] [address] ? 01/23/20 This was a telemedicine visit with Cesario Jewell alone which took place via Telephone. During the visit, I was located in the office and the patient was located at home. The patient visit started at15:50PM and ended at 15:54PM. Total encounter time was 10 minutes, which includes time spent today on pre charting, the patient encounter, and post charting. The patient has been informed that the visit may not be secure and acknowledged the information. I have explained the option of participating in a telephone or video visit during the [facility]-[address] [place] [address] emergency to the patient. After being given an opportunity to ask questions about and discuss this type of visit, the patient verbally consented to proceeding with the telephone/video visit.The patient understands that this service replaces an office visit and they may be billed and/or responsible for any applicable copayments. Meggan Martinez MD CHIEF COMPLAINT: Post-operative visit. ?? HISTORY OF PRESENT ILLNESS: Cesario Jewell is a 40 y.o. woman who presented to my office for evaluation of her left nipple discharge. She began noticing spontaneous discharge from the left nipple which was similar to a previous discharge she had in the contralateral right nipple. She had previouslyundergone a right duct excision which was benign. Her clinical examination did reveal pathologic discharge from a four o'clock duct in the left nipple. Imaging revealed an intraductal mass. Core biopsy was performed of the intraductal mass and it revealed a papilloma. She continued to have pathologic discharge and I offered her a central duct excision. She underwent that procedure and returns today for her post-operative visit. The patient states that she has done well post-operatively. She denies any problems with the incision. She denies any redness around the incision or drainage from the wound. She has no other systemic complaints and has not had any fevers. ?? PHYSICAL EXAMINATION: BREAST EXAMINATION: On examination, the incision is clean, dry, and intact and healing well. There is no sign of any infection or drainage from the wound. Please refer to photos uploaded to Media. ?? PATHOLOGY: I reviewed the pathology with her today as well. The left central duct excision revealedintraductal papilloma without any atypia or malignancy. ?? IMPRESSION/RECOMMENDATION: Cesario Jewell is a 40 y.o. 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 She has also previously undergone a right ductal excision for papilloma in the past. I reviewed the pathology with her today and explained that it is completely benign and that it does not increase her future risk for the development of breast cancer. She was quite pleased, as would be expected. I encouraged her to simply resume her monthly self examinations and to alert her physician of any changes. I also recommended that she resume yearly screening mammograms. I answered all of her and her family's questions thoroughly, and they do seem pleased withthis plan of approach. I encouraged her to contact me in the future if any new questions or concerns arise. ? Meggan Martinez MD documented in this encounter Plan of Treatment Not on file documented as of this encounter Visit Diagnoses Diagnosis Nipple discharge in female- Primary documented in this encounter Care Teams Parking Lot Manager Relationship Specialty Start Date End Date Martha Lawrence MD [place] [facility] [place] [address] PCP - General 02/24/19 Zoran Willams Family Medicine 05/18/18 documented as of this encounter
--- OUTSIDE RECORDS SUMMARY | 2024-05-13 22:22 | XMS_ITS | Encounter Summary ---
Author Organization [facility] Address [address] [address] Care Team Providers Care Full Time Name Role Phone oZran Willams Unavailable Unavailable Martha Lawrence MD Primary Care Provider +1- [phone] Encounter Details Date Type Department Care Team (Late st Contact Info) Description 04/16/2021 Orders Only [facility] Testing Site - [address] [id number] Meggan Martinez MD [address] [address] Pre-procedure lab exam (Primary Dx) Social History Tobacco Use Types Packs/Day Years Used Date Smoking Tobacco: Never Smokeless Tobacco: Never Alcohol Use Standard Drinks/Week Comments No 0 (1 standard drink = 0.6 oz pur e alcohol) Comments No Sex and Gender Information Value Date Recorded Sex Assigned at Not on file Legal Sex Female 10:37 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 Date of Px/chemo/treatment/placement/transfer 04/21/2021 ?? Testing site patient will be sent to: [facility] ?? Testing: COVID-19 RNA ?? Does the patient currently work in a healthcare facility with direct patient contact? Unknown ?? Is the patient a resident of a congregate care or living setting? Unknown ?? ? Unknown ?? Date testing requested: 04/18/2021 ?? Testin in 1--(COVID, FLU A/B, RSV) ?? Please select the performing region: [facility] ?? Referral Notes CIENCE LABORATORY TECHNICIAN documented in this encounter Plan of Treatment Not on file documented as of this encounter Visit Diagnoses Diagnosis Pre-procedure lab exam- Primary Pre-procedural laboratory examination documented in this encounter Care Teams Full Time Relationship Specialty Start Date End Date Martha Lawrence MD [address] [employer] [address] PCP - General 02/24/19 Zoran Willams Family Medicine 05/18/18 documented as of this encounter
--- OUTSIDE RECORDS SUMMARY | 2024-05-13 22:22 | XMS_ITS | Encounter Summary ---
Author Organization [facility] Healthcare Address [address] [place] [address] Care Team Providers Care Playground Worker Name Role Phone Zoran Willams Unavailable Unavailable Martha Lawrence MD Primary Care Provider [phone] Encounter Details Date Type Department Care Team (Late st Contact Info) Description 05/19/2021 10:30 AM IN STORE MARKETING REPRESENTATIVE - 05/19/2021 11:45 AM [facility] Surgery [facility] Operating Room [facility] [address] [place] [id number] Meggan Martinez MD [address] [place] [id number] EXCISION BREAST DUCT Surgery Details Date/Time Status Location OR Service Patient Class Case Cl ass Case Type Trauma Case? 05/19/2021 10:30 AM Posted [facility] CAM OR POD 4 F Oncology Outpatient Time Sensitive - 1 Week Panel 1 Procedure LRB Anes Op Region Wound Class Comments EXCISION BREAST DUCT Right Monitor Anesthesia Care Breas t Class I - Clean Surgeon Surgeon Role Service Panel Ivy Ellis MD Resident - Assisti ng Plastics 1 Meggan Martinez MD Primary Oncology 1 Case Notes 04/01: case moved from 04/21 to 05/19 per Carol Ann. SARAH Special Needs Arm Rest documented in this encounter Social History Tobacco [...] on file Legal Sex Female 10:37 AM IN STORE MARKETING REPRESENTATIVE Gender Identity Not on file Sexual Orientation Not on file documented as of this encounter Last Filed Vital Signs Vital Sign Reading Time Taken Comments Blood Pressure 110/77 05/19/2021 11:40 AM IN STORE MARKETING REPRESENTATIVE Pulse 84 05/19/2021 11:45 AM IN STORE MARKETING REPRESENTATIVE Temperature 36.2 ??C (97.2 ??F) 05/19/2021 11:[address] Respiratory Rate 14 05/19/2021 11:45 AM IN STORE MARKETING REPRESENTATIVE Oxygen Saturation 100% 05/19/2021 11:45 AM IN STORE MARKETING REPRESENTATIVE Inhaled Oxygen Concentration - - Weight 108.9 kg (240 lb) 05/19/2021 9:25 AM IN STORE MARKETING REPRESENTATIVE Height 167.6 cm (5' 6 ) 05/19/2021 9:25 AM IN STORE MARKETING REPRESENTATIVE Body Mass Index 38.74 05/19/2021 9:25 AM IN STORE MARKETING REPRESENTATIVE documented in this encounter Discharge Instructions * Discharge Instructions* Ivy Julio MD - 05/19/2021 11:07 AM IN STORE MARKETING REPRESENTATIVE Nipple Discharge WHAT YOU NEED TO KNOW: Nipple discharge is fluid from one or both nipples. Fluid may come out on its own or when you touchyour breast or nipple. The fluid may be white, yellow, green, pink, watery, or bloody. Nipple discharge is normal in a woman that is or . A woman should contact her healthcare provider if she has nipple discharge when she is not or breast feeding. A man should always contact his healthcare provider if he has nipple discharge. DISCHARGE INSTRUCTIONS: Contact your healthcare provider if: ?? You have a fever. ?? You have more breast discharge or it changes color. ?? You have new or worsening breast pain. ?? You have questions or concerns about your condition or care. Medicines may be given to control your hormone levels or treat a bacterial infection. ?? NSAIDs , such as ibuprofen, help decrease swelling, pain, and fever. This medicine is available with or without a doctor's order. NSAIDs can cause stomach bleeding or kidney problems in certain people. If you take blood thinner medicine, always ask your healthcare provider if NSAIDs are safe foryou. Always read the medicine label and follow directions. ?? Take your medicine as directed. Contact your healthcare provider if you think your medicine is not helping or if you have side effects. Tell him of her if you are allergic to any medicine. Keep a list of the medicines, vitamins, and herbs you take. Include the amounts, and when and why you take them. Bring the list or the pill bottles to follow-up visits. Carry your medicine list with you in case of an emergency. Self-care: ?? Avoid touching your breasts or nipples. This may stop or decrease nipple discharge. ?? Wear a tight-fitting bra during exercise. This may prevent your nipples from rubbing against clothing or leaking fluid. Follow up with your healthcare provider as directed: You may need to return for more tests. Write down your questions so you remember to ask them during your visits. ?? 2017 [employer] Information is for End User's use only and may not be sold, redistributed or otherwise used for commercial purposes. All illustrations and images included in CareNotes?? are the copyrighted property of [employer] or [employer]. The above information is an nutrition aides teacher only. It is not intended as medical advice for individual conditions or treatments. Talk to your doctor, nurse or pharmacist before following any medical regimen to see if it is safe and effective for you. STORE MARKETING REPRESENTATIVE * Attachments The following attachments cannot be sent through Care Everywhere. * [facility] TO EXCELLENT CARE AFTER SURGERY documented in this encounter Medications at Time of Discharge albuterol HFA (PROVENTIL HFA,VENTOLIN HFA,PROAIR HFA) 90 mcg/actuation inhalerIndications: Acute Asthma Attack Inhale 2 puffs every 6 (six) hours as needed 01/20/2019 buPROPion XL (WELLBUTRIN XL) 150 mg 24 hr tabletIndications:A nxiety with Depression Take 1 tablet (150 mg total) by mouth every morning cholecalciferol (VITAMIN D-3) 5,000 unit tabletIndications:V itamin D Deficiency Take 1 tablet (5,000 Units total) by mouth every morning escitalopram (LEXAPRO) 20 mg tabletIndications:A nxiety with Depression Take 1 tablet (20 mg total) by mouth every morning montelukast (SINGULAIR) 10 mg tablet Take 1 tablet (10 mg total) by mouth nightly 10/31/2019 nebivoloL (BYSTOLIC) 5 mg tabletIndications:h ypertension Take 1 tablet (5 mg total) by mouth every morning 04/10/2021 ALPRAZolam (XANAX) 0.5 mg tabletIndications:a nxiety Take 0.5 mg by mouth as needed 0 04/07/2021 4 fluticasone propionate (FLONASE) 50 mcg/actuation nasal sprayIndications:Al lergic Conjunctivitis Administer 2 sprays into each nostril every morning 4 hydrOXYzine (ATARAX) 25 mg tabletIndications:a nxiety Take 25 mg by mouth as needed 07/30/2020 4 lamoTRIgine (LaMICtal) 100 mg tabletIndications:M OOD STABILIZER Take 1 tablet (100 mg total) by mouth nightly 4 Ozempic 1 mg/dose (4 mg/3 mL) pen injector injectionIndication s:pre diabetic 1 mg once a week Takes on Wednesday03/06/2021 3 spironolactone (ALDACTONE) 100 mg tabletIndications:h ypertension Take 1 tablet (100 mg total) by mouth every morning 4 traZODone (DESYREL) 150 mg tabletIndications:m ajor depressive disorder Take 1 tablet (150 mg total) by mouth nightly 4 documented as of this encounter Discharge Disposition Disposition Code Departure Means Destination Discharge to home or self care documented in this encounter H&P Notes * Meggan Martinez MD - 05/19/2021 8:55 AM CST I have reviewed the H&P, examined the patient, and endorse the findings as written. Plan of Care : Based on the above findings, I consider Cesario Hassan to be an acceptable risk for : Procedure(s): EXCISION BREAST DUCT STORE MARKETING REPRESENTATIVE Source Note - Solomon Yazmin Gretchen, RIZWAN - 05/13/2021 4:02 PM IN STORE MARKETING REPRESENTATIVE Images from the original note were not included. [facility] Preoperative Evaluation Record Evaluation type/location: TPAP from [facility] Planned procedure site: [facility] OR (Pod 4) Date: 05/13/21 NOTE: This note represents a preoperative evaluation initiated via telephone interview. NO PHYSICALEXAM was performed at the time of initial assessment. A physical exam may be added to this note anddocumented below. Anesthesia Evaluation Cesario Hassan is a 41 y.o. female Procedure(s): EXCISION [...] Preoperative assessment status: complete. Additional comments: Cesario Hassan is a 41 y.o. female who is [...] Patient instructions were provided electronically sent via [employer]. Patient verbalized understanding of preoperative plan. Blood bank needs for day of procedure: No type and screen needed Pending labs/tests include: POC Hcg Urine Patient's COVID19 status is: Unexposed. The patient currently has no concerning symptoms of COVID19. . Patient's COVID-19 vaccination status is Fully vaccinated. Documentation of vaccination status is available in the Epic Immunization tab. . Plan for pre-procedure COVID19 testing: Telephone assessment performed. Request placed for pre-procedure COVID19 testing to be performed on 05/16. [facility] will place the order for testing. Result [...] OTHER MEDICAL Menorrhagia ??? HX OTHER MEDICAL [place] teeth extraction 12/18 ??? HX OTHER MEDICAL 01-tubing drier ??? HX OTHER MEDICAL right lens implant [...] ??? 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 HISTORY L/R cataract extraction: 1983 ??? 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 HISTORY Detached Retina: Surgically repaired; 1982 ??? 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 HISTORY Scar tissure removal Left Eye: 2008 ??? 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 HISTORY myringotomy tubes: 1989 ??? 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 HISTORY 01-tubing drier: [facility] ??? 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 HISTORY right lens implant 2-2011: Dr Barrios - [facility] ??? 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 HISTORY 2019 breast bx R - benign ??? 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 HISTORY milk duct removed right breast ; benign papilloma: Dr Alonso [facility] ??? 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 HISTORY 1983 retinal reattachment ??? 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 HISTORY Left 2012 eye removal ??? 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 HISTORY 2012 milk duct removal ??? TONSILLECTOMY AND ADENOIDECTOMY [...] 0.5 mg tablet Past Week 04/07/21 -- Provider, MD Babita buPROPion XL (WELLBUTRIN XL) 150 mg 24 hr tablet 05/08/2021 -- -- Provider, MD Babita cholecalciferol (VITAMIN D-3) 5,000 unit tablet 05/08/2021 -- -- ProviderBabita MD escitalopram (LEXAPRO) 20 mg tablet 05/08/2021 -- -- ProviderBabita MD fluticasone propionate (FLONASE) 50 mcg/actuation nasal spray 05/08/2021 -- -- Provider, MD Babita hydrOXYzine (ATARAX) 25 mg tablet Past Month 07/30/20 -- Provider, MD Babita lamoTRIgine (LaMICtal) 100 mg tablet 05/07/2021 -- -- ProviderBabita MD montelukast (SINGULAIR) 10 mg tablet 05/07/2021 10/31/19 -- ProviderBabita MD nebivoloL (BYSTOLIC) 5 mg tablet 05/08/2021 04/10/21 -- ProviderBabita MD Ozempic 1 mg/dose (4 mg/3 mL) pen injector injection Past Week 03/06/21 -- Provider, MD Babita spironolactone (ALDACTONE) 100 mg tablet 05/08/2021 -- [...] last 720 hours. Pia index score: 100 STORE MARKETING REPRESENTATIVE documented in this encounter Miscellaneous Notes * Brief Op Note - Ivy Julio MD - 05/19/2021 10:31 AM CST Operative Progress Note Surgical Team: Surgeon(s) and Role: * Meggan Martinez MD - Primary * Ivy Julio MD - Resident - Assisting Anesthesiologist: Ilia Cohen MD EVENT PLANNING INTERN: Geri Morris CRNA Instructional Design Specialist: Gladis Augustine, SANJANA Scrub: Wyatt Cooper Ea DIRECTOR OF LITIGATION: Denise Funk RN DATE OF SURGERY : 05/19/2021 Preoperative Diagnosis: Pre-op Diagnosis * Nipple discharge [N64.52] Postoperative Diagnosis: Post-op Diagnosis * Nipple discharge [N64.52] Procedure(s): Procedure(s) (LRB): EXCISION BREAST DUCT (Right) Operative Findings: Excision of breast duct Estimated Blood Loss: No blood loss documented. Intraoperative Fluids: See anesthesia note Specimens: ID Type Source Tests Collected by Time A : RIGHT DUCTAL TISSUE, STITCH ON NIPPLE END Tissue Breast, excisional biopsy/ partial mastectomy SURGICAL PATHOLOGY Meggan Martinez MD 05/19/2021 1037 Implants: Nothing was implanted during the procedure Blood/Blood Products Transfused: 0 mls Complications: None Condition on Discharge from the operating room was stable Ivy Julio MD Date: 05/19/2021 Time: 3:35 PM TEACHING ATTESTATION : I was present and directly participated in the entire procedure (including opening and closing). Cosigned by Meggan Martinez MD at 05/19/2021 3:41 PM IN STORE MARKETING REPRESENTATIVE STORE MARKETING REPRESENTATIVE STORE MARKETING REPRESENTATIVE * Op Note - Meggan Martinez MD - 05/19/2021 10:30 AM CST 05/19/21 ?? ATTENDING SURGEON Meggan Martinez M.D. ?? FIRST FOAMING MACHINE OPERATOR Ivy Julio MD ?? ANESTHESIA Monitored anesthesia with local anesthetic. ?? PREOPERATIVE DIAGNOSIS Right pathologic nipple discharge ?? POSTOPERATIVE DIAGNOSIS Right pathologic nipple discharge ?? PROCEDURE 1. Right breast central duct excision ?? INDICATION FOR PROCEDURE Cesario Hassan??is a 41 y.o.??woman who has a previous history of bilateral nipple discharge. She has previously undergone a directed duct excision on the right side for papilloma and a left central duct excision on the left side for papilloma. She recently developed new right nipple discharge thatwas associated with findings consistent with papillomas. We discussed options and she elected for acomplete central duct excision. She presents today for excision for definitive diagnosis. ?? FINDINGS The right??central duct excision was performed without difficulty. The total tissue excised was 3 cm x 3 cm. ? STEPS OF THE PROCEDURE Cesario Hassan??was brought to the operating room and placed supine on the operating room table. ??Bilateral sequential compression devices were not necessary due to the sedation nature of this procedure but a single dose of Ancef 2 gm??was administered intravenously 20 minutes prior to the incision time. ??Sedation was then initiated with Propofol and Fentanyl and the patient was prepped and draped in the standard surgical fashion. ??We directed our attention to the right??breast. ??A circumareolar incision was planned centered around the six o'clock position. ??This was infiltrated with a mixture of 1% plain lidocaine and 0.5% plain Marcaine to create a field block. ??The??incision was made and carried down through the dermis with electrocautery. ??A retroareolar flap was created all the way to the superior circumareolar border. The underlying ductal tissue was then grasped with an Allis clamp and elevated into the wound. ??The tissue was then excised from the surrounding tissue using electrocautery. ??It was marked with a stitch on the nipple end and passed off the field. ??Attention was then turned to the wound. ??Aggressive hemostasis was obtained with electrocautery. ??The wound was irrigated with copious amounts of sterile saline. A modified nipple cerclage was created with a 3-0 Vicryl stitch. The deep dermal layer was then reapproximated with interrupted 3-0 Vicryl stitches. ??The skin was reapproximated with a running subcuticular using 4-0 Monocryl. ??Surgical glue dressing was applied. ??The patient tolerated this procedure well was awakened and transferred to the recovery room. ?? SPECIMENS REMOVED 1. The right??ductal tissue which was marked with a stitch on the nipple end. ?? ESTIMATED BLOOD LOSS minimal ?? IV FLUIDS 800 mL??of crystalloid. ?? SPONGE, INSTRUMENT, NEEDLE COUNTS Were correct at the end of the procedure. ?? CONDITION OF PATIENT ON DISCHARGE FROM THE OPERATING ROOM Stable. ?? Please note that I, Meggan Martinez, was present and scrubbed from the time of skin incision through all critical aspects of the procedure which included removal of the specimen. I was not presentfor the non-critical skin closure though I was immediately available for that non-critical portion. STORE MARKETING REPRESENTATIVE * Pre-Procedure Instructions - Yazmin Carbajal NP - 05/13/2021 3:55 PM CST [facility] Clinic Location: [facility] The night before your surgery: * Do not eat anything after midnight the night before your procedure. The morning of your surgery: * You may have clear liquids on your surgery day. You must stop drinking two hours before you arrive to the surgery facility. Acceptable clear liquids include water, clear sports drinks, black coffee, or clear soda. DO NOT drink any milk, creamer, or alcohol. * Your surgeon's office may have provided additional instructions or restrictions. Please follow those instructions. ?? * You may brush your teeth and rinse your mouth out. * Do not wear jewelry, body piercings, makeup, hairpins, false eyelashes or contact lenses to the hospital. * Leave any valuables at home or with your family. * If you are still having menstrual cycles, you should come with a full bladder on the morning of surgery in order to provide a urine sample. * If you have an implantable device with a remote, bring the remote with you on the day of surgery. * If having surgery at [facility], you may want to bring a credit card if you want to use our Mobile Pharmacy for your discharge medications. Mobile pharmacy is not available at [facility], the [facility], or [facility]. Outpatient Surgery: * You must have a responsible adult drive you home and stay with you for 24 hours after your surgery * You cannot be alone at home or in a hotel * Please call your surgeon's office if you do not have someone to drive you home and/or stay with you after surgery * Please bring any items you may need to spend the night in the hospital. Sometimes patients need to be cared for in the hospital overnight. Instructions For Your Medications: Pre-Surgery Instructions: Medication Instructions ??? albuterol HFA (PROVENTIL HFA,VENTOLIN HFA,PROAIR HFA) 90 mcg/actuation inhaler Take on day of surgery if needed ??? ALPRAZolam (XANAX) 0.5 mg tablet Take on day of surgery if needed ??? buPROPion XL (WELLBUTRIN XL) 150 mg 24 hr tablet Take morning of surgery ??? cholecalciferol (VITAMIN D-3) 5,000 unit tablet Don't take on day of surgery ??? escitalopram (LEXAPRO) 20 mg tablet Take morning of surgery ??? fluticasone propionate (FLONASE) 50 mcg/actuation nasal spray Don't take on day of surgery ??? hydrOXYzine (ATARAX) 25 mg tablet Don't take on day of surgery ??? lamoTRIgine (LaMICtal) 100 mg tablet Take as prescribed ??? montelukast (SINGULAIR) 10 mg tablet Take as prescribed ??? nebivoloL (BYSTOLIC) 5 mg tablet Take morning of surgery ??? Ozempic 1 mg/dose (4 mg/3 mL) pen injector injection Don't take on day of surgery ??? spironolactone (ALDACTONE) 100 mg tablet Don't take on day of surgery ??? traZODone (DESYREL) 150 mg tablet Take as prescribed General Instructions For Medications: ?? * Stop all of these medications 5 days prior to your surgery: excedrin, motrin, advil, ibuprofen, aleve, naproxen, meloxicam, celebrex, celecoxib.? For medications that you are instructed to take on the morning of surgery, take the medications with a few sips of water. ?? Stop all of these medications 7-14 days prior to your surgery: Vitamin E, Herbal medicines, DietPills ?? If you have pain, you may take tylenol (acetaminophen). Do not take more than 6 tablets or 3000 mg (3 g) within a 24 period. Call your surgeon and the CPAP clinic if any of the following happens before surgery: ?? Any changes in your health ?? You have a fever ?? You have any signs of an infection (chest, urinary tract or tooth) ?? You have been to the Emergency Room or were in the hospital ?? You have started taking any new medications ?? You have questions about a bowel prep or special diet before surgery STORE MARKETING REPRESENTATIVE * Pre-Procedure Instructions - Pilar Estrella RN - 05/08/2021 8:54 AM CST [facility] ([facility]) PRE-SURGICAL NURSING INSTRUCTIONS Telephone Assessment General Information Discussed with Patient: 1. Surgery location provided to patient. 2. Arrival time and surgical time will be provided to the patient by their surgeon. 3. You should wear clothing that is clean, loose, comfortable and easy to get in and out of on the day of surgery. 4. You should leave your valuables and any jewelry at home. No metal or piercings are allowed in the operating room. 5. You should bring your insurance card, a photo ID (example: Chipper's License) and a method of payment for any insurance copay, deductible or copay for discharge medications. 6. You should bring a complete, up-to-date list of all your medications on the day of surgery, including any over the counter medications or supplements you may take. 7. You should bring your Advanced Directive and/or Living Will with you on the day of surgery if you have not verified a copy is already in your Epic Chart. How To Prepare Your Skin For Surgery Below is the Pre-Surgical Bathing Protocol you should follow for your surgery. If your surgeon provides you different bathing instructions, please follow your surgeon's orders. 2 Day CHG Bathing Protocol (no nasal ointment) PREVENTING INFECTION (DECOLONIZATION): Decolonization is the use of a topical antiseptic soap and sometimes a nasal ointment to remove bacteria (germs) from the skin's surface. Antiseptic soap: Chlorhexidine gluconate or CHG (brand name: Hibiclens??) ??? Before surgery, your entire body must be thoroughly cleaned. CHG helps to reduce the bacteria on your skin. ??? You may be given one or more bottles of CHG or you may be asked to obtain from your preferred pharmacy. Be sure to ask your pharmacist if you need help finding this product. SHOWERING WITH ANTISEPTIC SOAP (CHG) What You Need For Each Shower ??? 60 mL (?? cup) of CHG ??? 2 clean washcloths CHG Bathing Instructions 1. First, shampoo and rinse your hair with your own shampoo (no conditioners). Do this so the antiseptic soap isn't washed off by your shampoo. 2. Wash face with warm water. 3. Turn off shower and stand away from the water. 4. Use 2 clean washcloths to apply the antiseptic soap to all areas as described below: Pour 30 mL (1/8 cup) of CHG on washcloth #1: Using washcloth- start at jawline and firmly massage the soap into the skin in a circular motion to clean neck, shoulders, chest, back, both armpits, arms, hands and abdomen. Finish with legs and feet. Pour 30 mL (1/8 cup) of CHG on washcloth #2: Using washcloth- firmly massage the soap into the skinin a circular motion to clean groin area, perineum and buttocks. (Do not use CHG on genital area.) Flores Points: ??? The CHG antiseptic soap will not bubble or lather very much. ??? If you get soap in your eyes, ears or mouth, rinse well with cool water. ??? When finished, leave the soap on your skin for 2 minutes before rinsing. ??? Dry off with a clean fresh towel. ??? Wear clean clothes or pajamas to sleep in. ??? After showering DO NOT put on deodorant, hair products or conditioners, lotions or creams, powders, Vaseline or any non-essential products. ??? If you cannot reach the surgical site, such as the back, please have someone help you. 2-Day CHG Bathing Protocol The Evening Before Surgery: Take a shower with Antiseptic soap (CHG). Follow the steps for ???Showering with Antiseptic Soap (CHG)?? above. ??? Change all linens on your bed so you are sleeping in clean fresh sheets and pillowcases. ??? Remove nail coverings, artificial nails and nail tajik. The Morning of Surgery: Take a shower with Antiseptic soap (CHG). Follow the steps for ???Showering with Antiseptic Soap (CHG)?? above. ??? Put clean clothes on after you shower. Shaving: You may shave your face, legs and underarms before applying CHG antiseptic soap on the days before surgery. Be careful not to cut or yoel your skin. Avoid shaving on the day of surgery. COVID TESTING PLAN: Please note, the below is the Pre-Procedure COVID Testing Plan for the Center for Preoperative Assessment & Planning for Anesthesia. Surgeon's offices may require additional testing. If so, the surgeon's office will reach out to the patient to discuss further testing. Patient's COVID-19 vaccination status: Patient states that they are fully COVID vaccinated and COVID vaccination information verified through [employer] Immunization Registry Database. COVID Test Plan: COVID Test Request Placed in Epic to [facility]. HOLIDAY hours may vary at testing site. Test chelita performed on 05-16-2021 [place] [address], M-F8a-5:30p, Sat/Sun 8a-5:30p. If you are going to a [facility] [facility] Testing Site for COVID testing, please arriveat least 30 minutes PRIOR to lab closing time. If you have COVID testing or should have COVID testing for your surgery/procedure, please read below section: If you need to reschedule your COVID test to a different location or if your surgery gets rescheduled, you MUST call [phone] Wednesday-Wednesday 8am-4:30pm to get your COVID testing rescheduled or your lab order will not be available at Testing Sites. COVID Testing is only valid for up to 96 hours prior to surgery date, unless otherwise specified. If you are unable to reach staff at the above phone number, please call the CPAP Staff at [phone]. This number cannot order a lab test, but can attempt to contact the above number/staff to assist you. CPAP Staff are available Wednesday- Wednesday 8am-5pm. We recommend you Self-Isolate after COVID Testing: Stay at home, if possible, until your surgery date. Maintain a 6-foot distance from other people (social distancing) and wear a face mask if you areable. Avoid touching your eyes, nose and mouth with unwashed hands. Wash your hands often with soapand water for at least 20 seconds. Use an alcohol-based hand ditching machine engineer that contains at least 60% alcohol if soap and water are not available. These are general guidelines, but if have been told by aphysician that you should not perform any of the above, please follow physician's guidelines. All patients should read below section: All visitors/patients are being asked to wear a clean face mask when entering the hospital. COVID 19 Updates & Visitor Policy: Please access [email or web address] for the most updated information. Information on [facility]: Please view [email or web address] (Patient & Visitor Information) for additional details regarding Advanced Directive forms, AWARE, directions, parking information, lodging, Internet access, dining and more. Information on [facility]: Please view [email or web address] (Patient and Visitor Information) for parking/directions and more. For MyChart information, to activate account or password recovery, please go to [email or web address] or call [phone] (toll-free: [phone]). Information for Suicide Prevention: National Suicide Prevention Lifeline (9-332- 253-GEMG (4034)). Surgery Times: For patients having surgery @ [facility] or [facility], if your surgeon's office has not notified you of your surgery time by NOON THE BUSINESS DAY BEFORE your surgery, please call [phone] and ask for your surgeon'soffice. STORE MARKETING REPRESENTATIVE * Perioperative Nursing Note - Pilar Estrella RN - 05/08/2021 8:50 AM CST [facility] Planning Perioperative Nursing Note Telephone Preoperative Evaluation ([facility]) - TELEPHONE ONLY, NO PHYSICAL EXAM Date: 05/08/21 Vitals: 05/08/21 0845 Weight: 115.7 kg (255 lb) Height: 167.6 cm (5' 6 ) CHEST CIRCUMFERENCE: NA Social History Tobacco Use Smoking Status Never Smoker Smokeless Tobacco Never Used Substance and Sexual Activity Drug Use No Alcohol Use How often do you have a drink containing alcohol?: Monthly or less How many drinks containing alcohol do you have on a typical day when you are drinking?: 1 or 2 How often do you have six or more drinks on one occasion?: Never Outpatient Medications Marked as Taking for the 05/19/21 encounter (Hospital Encounter) Medication Sig Dispense Refill ??? albuterol HFA (PROVENTIL HFA,VENTOLIN HFA,PROAIR HFA) 90 mcg/actuation inhaler Inhale 2 puffs every 6 (six) hours as needed ??? ALPRAZolam (XANAX) 0.5 mg tablet Take 0.5 mg by mouth as needed 0 ??? buPROPion XL (WELLBUTRIN XL) 150 mg 24 hr tablet Take 150 mg by mouth every morning ??? cholecalciferol (VITAMIN D-3) 5,000 unit tablet Take 5,000 Units by mouth every morning ??? escitalopram (LEXAPRO) 20 mg tablet Take 20 mg by mouth every morning ??? fluticasone propionate (FLONASE) 50 mcg/actuation nasal spray Administer 2 sprays into each nostril every morning ??? hydrOXYzine (ATARAX) 25 mg tablet Take 25 mg by mouth as needed ??? lamoTRIgine (LaMICtal) 100 mg tablet Take 100 mg by mouth nightly ??? montelukast (SINGULAIR) 10 mg tablet Take 10 mg by mouth nightly ??? nebivoloL (BYSTOLIC) 5 mg tablet Take 5 mg by mouth every morning ??? Ozempic 1 mg/dose (4 mg/3 mL) pen injector injection 1 mg once a week Takes on Wednesday ??? spironolactone (ALDACTONE) 100 mg tablet Take 100 mg by mouth every morning ??? traZODone (DESYREL) 150 mg tablet Take 150 mg by mouth nightly Implants No active implants to display in this view. SKIN Piercings Remaining: No Wound (LDAs) Type of Wound (LDA): (denies) SCREENINGS Pia index score: 100 NUTRITION FLORES Nutrition and Function History Questionnaire Is BMI < 20?: No Have you lost any weight in the past 6 months without trying? : No Have you eaten < 50% of normal in the past 2 weeks without trying?: No Have you experienced any of the following in the past month?: No Symptom Score: 0 Has your activity level decreased over the past 6 months or do you use an assistive device such as a walker, cane, or wheelchair?: Yes Total Score: 1 PATIENT CARE PLANNING Advance Directives (For Healthcare) Have you reviewed your Advance Directive and is it valid for this stay?: Not applicable Advance Directive: Patient does not have advance directive Communication/Crossband Layer Needs Communication Needs: Glasses Assistive Devices/DME: Eyeglasses Discharge Planning Type of Residence: Private residence Living Arrangements: Spouse/significant other Support Systems: Spouse/significant other,Family members,Friends/neighbors ( Rosanna will be driving her day of surgery) Patient expects to be discharged to:: Private residence COVID Screening Covid-19 Screening In the last 10 days have you had any new or worsening cough, SOB, fever (>=100F), body aches, loss of taste or smell, diarrhea or vomiting, or sore throat?: No Have you had close contact with anyone with confirmed or suspected COVID-19 in the past 2 weeks?: No Do you live in or work in a congregate living facility (ex. assisted living/prison facility, halfway, halfway)?: No Have you tested positive for COVID-19 within the last 14 days?: No Have you previously tested positive for COVID-19? No Have you had a COVID -19 exposure within the past 14 days? No Were both or all people exposed wearing masks (cloth, isolation, surgical or N95)? N/A TESTING PLAN-See Instructions for plan We recommend you Self-Isolate after COVID Testing: Stay at home, if possible until your surgery date. Maintain a 6 foot distance from other people (social distancing). Avoid touching your eyes, nose and mouth with unwashed hands. Wash your hands often with soap and water for at least 20 seconds. Use an alcohol- based hand ditching machine engineer that contains at least 60% alcohol if soap and water are not available. ADDITIONAL COMMENTS/ FOLLOW UP STORE MARKETING REPRESENTATIVE documented in this encounter Plan of Treatment Not on file documented as of this encounter Procedures Procedure Name Priority Date/Time Associated Diagnosis Comments SURGICAL PATHOLOGY Routine 05/19/2021 10:37 AM IN STORE MARKETING REPRESENTATIVE Nipple discharge EXCISION BREAST DUCT 05/19/2021 10:15 AM IN STORE MARKETING REPRESENTATIVE Nipple discharge Case Notes 04/01: case moved from 04/21 to 05/19 per Carol Ann. SARAH Special Needs Arm Rest POCT HCG, URINE Routine 05/19/2021 9:41 AM IN STORE MARKETING REPRESENTATIVE documented in this encounter Results * Surgical pathology (05/19/2021 10:37 AM IN STORE MARKETING REPRESENTATIVE) Tissue (Breast, excisional biopsy/ partial mastectomy) 05/19/2021 10:37 AM IN STORE MARKETING REPRESENTATIVE Narrative PATHOLOGY [facility] - 05/21/2021 12:35 PM IN STORE MARKETING REPRESENTATIVE EPIC results best viewed via link to PDF [facility] [place] [address] Note to Patients: This report may contain a detailed description of human tissue sent by a health care provider to the laboratory for pathologic evaluation. The content of this report is essential for diagnosis and may provide important critical findings. This information may be unfamiliar to patients to review without a medical professional present. It is advised that the patient review this report in the presence of a health care provider who can answer questions and explain the details. SURGICAL PATHOLOGY REPORT FINAL Patient Name: ?? RAJEEV HASSANMACKENZIE De León Gender: ??F : ??1980 (Age: 41) Address: ??[address], [place] ??[address] [facility] #: ??[id number] Taken:05/19/2021 Received:05/19/2021 Reported: 05/21/2021 Patient Type: BJLe SDS ?? Service: Surgery Location: [facility] Physician(s): ??Meggan Martinez M.D. Ivy Julio M.D. Dr Martha Lawrence M.D. Diagnosis: Breast, right, ductal tissue , excisional biopsy ? - Intraductal papilloma ? - Greatest microscopic dimension = 5 mm, with sclerosis ? - Fibrocystic changes (stromal fibrosis, microcysts) - No atypical or malignant findings erg/05/21/2021 11:07 By this signature, I attest that the above diagnosis is based upon my personal examination of the slides(and/or other material indicated in the diagnosis). Jennifer Bearden M.D., Ph.D. Report Electronically Reviewed and Signed Out By ??Jennifer Bearden M.D., Ph.D. 05/21/2021 12:35:11 Microscopic Description and Comment: Microscopic examination substantiates the above-cited diagnosis. Camelia Fitzpatrick M.D. History: The patient is a 41-year-old woman with nipple discharge. ??Operative procedure: Excision of right breast duct. Specimen(s) Received: A: Right ductal tissue, stitch on nipple end Gross Description: Received in a single formalin filled container labeled with the patient's name and right ductal tissue, stitch on nipple end is an ovoid portion of lobular, yellow orange, fibrofatty tissue, weighing 7.9 g and with a stitch at one end indicating the nipple and as per the requisition. ??The specimen measures 4.9 x 2.4 x 1.9 cm. ??The nipple end is inked in black while the remainder of the external surface is inked in blue. ??Serially sectioned to show unremarkable fibrofatty tissue. ??Labeled A1 - nipple end, shaved; A2 - opposing end, shaved; A3 to A9 - remaining cross sections submitted from nipple end to opposing end. ??Jar 0. ??The total formalin fixation time is 34.5 hours. mr2/05/20/2021 09:31 PA(s): Jacinta Cabrera, MS, PA ([facility]) By this signature, I attest that the above diagnosis is based upon my personal examination of the slides(and/or other material). Addenda/Procedures The performance characteristics of some immunohistochemical stains, fluorescence in-situ hybridization tests and immunophenotyping by flow cytometry cited in this report (if any) were determined by the Surgical Pathology and Flow Cytometry Departments at [facility] as part of an ongoing quality assurance technician program and in compliance with federally mandated regulations drawn from the Clinical Laboratory Improvement Act of 1988 (CLIA '88). ??Some of these tests rely on the use of analyte specific reagents and are subject to specific labeling requirements by the US Food and Drug Administration. ??Such diagnostic tests may only be performed in a facility that is certified by the Department of Health and Human Services as a high complexity laboratory under CLIA '88. ??The FDA has determined that such clearance or approval is not necessary. ??This test is used for clinical purposes. ??It should not be regarded as investigational or for research. ??Nevertheless, federal rules concerning the medical use of analyte specific reagents require that the following disclaimer be attached to the report: This test was developed and its performance characteristics determined by the Surgical Pathology and Flow Cytometry Departments of [facility]. ??It has not been cleared or approved by the U. S. Food and Drug Administration. IMAGES AND SCANNED DOCUMENTS, IF INCLUDED, ONLY VIEWABLE IN PDF VERSION OF REPORT us Meggan Martinez MD LAB PATHOLOGY ORDERABLE S Final Result PATHOLOGY [facility] [address] Floor [place], [place] [phone] * POCT hCG, urine (05/19/2021 9:41 AM IN STORE MARKETING REPRESENTATIVE) HCG, ur, POC Negative Lot Number [id number] QC Backgroud Clear Acceptable QC Control Line Acceptable Urine 05/19/2021 9:41 AM IN STORE MARKETING REPRESENTATIVE us Meggan Martinez MD POINT OF CARE TEST JENNIFER MCFARLAND Final Result documented in this encounter Visit Diagnoses Diagnosis Nipple discharge in female- Primary Nipple discharge Other sign and symptom in breast Nipple discharge Other sign and symptom in breast documented in this encounter Admitting Diagnoses Diagnosis Nipple discharge in female documented in this encounter Administered Medications Inactive Administered Medications - up to 3 most recent administrations Medication Order MAR Action Action Date Dose Rate Site bupivacaine (MARCAINE) 0.5 % (5 mg/mL) preservative free injection As needed, Starting on Wed05/19/21 at 1044, Intra-Op Given 05/19/2021 10:44 AM IN STORE MARKETING REPRESENTATIVE 22 mL Lactated Ringer's (LR) infusion 30 mL/hr, intravenous, Continuous, Starting on Wed05/19/21 at 0945, Pre-Op Rate/Dose Verify 05/19/2021 10:12 AM IN STORE MARKETING REPRESENTATIVE 30 mL/hr New Bag 05/19/2021 9:27 AM IN STORE MARKETING REPRESENTATIVE 30 mL/hr 30 mL/hr sodium chloride 0.9% irrigation As needed, Starting on Wed05/19/21 at 1034, Intra-Op Given 05/19/2021 10:34 AM IN STORE MARKETING REPRESENTATIVE 1,000 mL documented in this encounter Discontinued Medications Medication Sig Discontinue Reason Start Date End Da te latanoprost (XALATAN) 0.005 % ophthalmic solution latanoprost 0.005 % eye drops INSTILL 1 DROP INTO RIGHT EYE AT BEDTIME 03/05/2018 05/08/2021 [id number] AMETHasone (MAXITROL) 3.5mg/mL-10,000 unit/mL-0.1 % ophthalmic suspension INSTILL 1 (ONE) DROP INTO RIGHT EYE 2 TIMES DAILY 07/12/2020 05/08/2021 pilocarpine (PILOCAR) 1 % ophthalmic solution Administer 1 drop into affected eye(s) 2 (two) times a day 07/26/2020 05/08/2021 metFORMIN XR (GLUCOPHAGE XR) 500 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 nebivoloL (BYSTOLIC) 5 mg tabletIndications:h ypertension Take 1 tablet (5 mg total) by mouth every morning 04/10/2021 ALPRAZolam (XANAX) 0.5 mg tabletIndications:a nxiety Take 0.5 mg by mouth as needed 0 04/07/2021 4 Ozempic 1 mg/dose (4 mg/3 mL) pen injector injectionIndication s:pre diabetic 1 mg once a week Takes on Wednesday03/06/2021 3 fluticasone propionate (FLONASE) 50 mcg/actuation nasal sprayIndications:Al lergic Conjunctivitis Administer 2 sprays into each nostril every morning 4 added in this encounter Active and Recently Administered Medications Times are shown in IN STORE MARKETING REPRESENTATIVE. Scheduled Medication Order 05/17/2021 05/18/2021 05/19/2021 ceFAZolin (ANCEF) 2,000 mg/20 mL in sterile water (premix) 2,000 mg (COMPLETED) 2,000 mg, intravenous, at 400 mL/hr, Administer over 3 Minutes, Once, On Wed05/19/21 at 0945, For 1 dose, Pre-Op, Indications: Prophylaxis, Surgical 1020 (Given - Provid er: Geri Morris CRNA) Continuous Medication Order 05/17/2021 05/18/2021 05/19/2021 Lactated Ringer's (LR) infusion 30 mL/hr, intravenous, Continuous, Starting on Wed05/19/21 at 0945, Pre-Op 0927 (New Bag - Prov ider: Lizy Khalil RN)1012 (Rate/Dose Verify - Provider: Geri Morris CRNA)1055 (Anesthesia Volume Adjustment - Provider: Geri Morris CRNA) PRN Medication Order 05/17/2021 05/18/2021 05/19/2021 bupivacaine (MARCAINE) 0.5 % (5 mg/mL) preservative free injection (CANCELED) As needed, Starting on Wed05/19/21 at 1044, Intra-Op 1044 (Given - Provid er: Meggan Martinez MD) sodium chloride 0.9% irrigation (CANCELED) As needed, Starting on Wed05/19/21 at 1034, Intra-Op 1034 (Given - Provid er: Meggan Martinez MD - Comment: prn irrigation on field) documented in this encounter Orders Medications Ordered That Ben ht Not Have Been Administered Count Last Ordered Date First Ordered Date ceFAZolin (ANCEF) 2,000 mg/2 0 mL in sterile water (premix) 2,000 mg 1 05/19/2021 lidocaine PF (XYLOCAINE) 10 mg/mL (1 %) preservative free injection 2-10 mg 1 05/19/2021 sodium chloride 0.9% flush 0.5-20 mL 1 05/10 Diet Count Last Ordered Date First Orde red Date ADULT DISCHARGE DIET 1 05/19/2021 Nursing Count Last Ordered Date First Orde red Date DISCHARGE ACTIVITY 3 05/19/2021 DISCHARGE CALL PROVIDER 5 05/19/2021 DISCHARGE DRESSING 6 05/19/2021 documented in this encounter Care Teams Playground Worker Relationship Specialty Start Date End Date Martha Lawrence MD [address] [facility] [place] [address] PCP - General 02/24/19 [facility] 05/18/18 documented as of this encounter
--- OUTSIDE RECORDS SUMMARY | 2024-05-13 22:22 | XMS_ITS | Encounter Summary ---
Author Organization [facility] Healthcare Address [address] [place] [address] Care Team Providers Care Sheet Folder Name Role Phone Zoran Willams Unavailable Unavailable Martha Lawrence MD Primary Care Provider [phone] Reason for Visit * Reason Comments Loss of Vision Encounter Details Date Type Department Care Team (Late st Contact Info) Description 02/17/2020 7:17 PM CDT - 02/17/2020 8:01 PM CDT Emergency [facility] Emergency Department [address] [place] [address] Gregory Lucia MD [address] [place], [place] [id number] Change in vision (Primary Dx); Glaucoma of right eye, unspecified glaucoma type; History of intraocular lens implant; History of eye prosthesis; Elevated IOP, right Discharge Disposition: Discharge to home or self care Social History Tobacco Use Types Packs/Day Years Used Date Smoking Tobacco: Never Smokeless Tobacco: Never Alcohol Use Standard Drinks/Week Comments No 0 (1 standard drink = 0.6 oz pur e alcohol) Comments No Sex and Gender Information Value Date Recorded Sex Assigned at Not on file Legal Sex Female 10:37 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 Gender Identity Not on file Sexual Orientation Not on file documented as of this encounter Last Filed Vital Signs Vital Sign Reading Time Taken Comments Blood Pressure 135/89 02/17/2020 3:48 PM CDT Pulse 100 02/17/2020 3:48 PM CDT Temperature 36.5 ??C (97.7 ??F) 02/17/2020 3:48 PM CD T Respiratory Rate 16 02/17/2020 3:48 PM CDT Oxygen Saturation 95% 02/17/2020 3:48 PM CDT Inhaled Oxygen Concentration - - Weight 98.4 kg (217 lb) 02/17/2020 3:48 PM CDT Height 167.6 cm (5' 6 ) 02/17/2020 3:48 PM CDT Body Mass Index 35.02 02/17/2020 3:48 PM CDT documented in this encounter Discharge Diagnoses Diagnosis Unspecified visual disturbance - UNSPECIFIED VISUAL DISTURBANCE Unspecified glaucoma - UNSPECIFIED GLAUCOMA Presence of intraocular lens - PRESENCE OF INTRAOCULAR LENS Presence of artificial eye - PRESENCE OF ARTIFICIAL EYE Ocular hypertension, right eye - OCULAR HYPERTENSION, RIGHT EYE Acquired absence of eye - ACQUIRED ABSENCE OF EYE Acquired absence of organ, eye Major depressive disorder, single episode, unspecified - MAJOR DEPRESSIVE DISORDER, SINGLE EPISODE, UNSPECIFIED Essential (primary) hypertension - ESSENTIAL (PRIMARY) HYPERTENSION Unspecified essential hypertension Polycystic ovarian syndrome - POLYCYSTIC OVARIAN SYNDROME Polycystic ovaries Other fpc (current) drug therapy - OTHER [facility] (CURRENT) DRUG THERAPY documented in this encounter Medications at Time of Discharge albuterol HFA (PROVENTIL HFA,VENTOLIN HFA,PROAIR HFA) 90 mcg/actuation inhalerIndicatio ns:Acute Asthma Attack Inhale 2 puffs every 6 (six) hours as needed 01/20/2019 buPROPion XL (WELLBUTRIN XL) 150 mg 24 hr tabletIndication s:Anxiety with Depression Take 1 tablet (150 mg total) by mouth every morning cholecalciferol (VITAMIN D-3) 5,000 unit tabletIndication s:Vitamin D Deficiency Take 1 tablet (5,000 Units total) by mouth every morning escitalopram (LEXAPRO) 20 mg tabletIndication s:Anxiety with Depression Take 1 tablet (20 mg total) by mouth every morning montelukast (SINGULAIR) 10 mg tablet Take 1 tablet (10 mg total) by mouth nightly 10/31/2019 brimonidine (ALPHAGAN P) 0.1 % dropsIndications :open angle glaucoma Administer 1 drop into the right eye 3 (three) times a day 15 mL 1 02/17/2020 1 dorzolamide-merced loL (COSOPT) 22.3-6.8 mg/mL ophthalmic solution Administer 1 drop into the right eye 2 (two) times a day 10 mL 1 02/17/2020 1 lamoTRIgine (LaMICtal) 100 mg tabletIndication s:MOOD STABILIZER Take 1 tablet (100 mg total) by mouth nightly 4 latanoprost (XALATAN) 0.005 % ophthalmic solution latanoprost 0.005 % eye drops INSTILL 1 DROP INTO RIGHT EYE AT BEDTIME 03/05/2018 1 metFORMIN XR (GLUCOPHAGE XR) 500 mg 24 hr tabletIndication s:Polycystic Ovarian Syndrome Take 500 mg by mouth daily with breakfast 04/20/2019 1 semaglutide (Rybelsus) 7 mg tabletIndication s:WEIGHT LOSS every morning 05/08/20 2 1 spironolactone (ALDACTONE) 100 mg tabletIndication s:hypertension Take 1 tablet (100 mg total) by mouth every morning 4 traMADoL (ULTRAM) 50 mg tablet Take 1 tablet (50 mg total) by mouth every 6 (six) hours as needed (severe pain that does not improve with just Tylenol / Ibuprofen) 8 tablet 01/08/2020 1 traZODone (DESYREL) 150 mg tabletIndication s:major depressive disorder Take 1 tablet (150 mg total) by mouth nightly 4 documented as of this encounter Ordered Prescriptions Prescription Sig Dispense Quantity Refills Last Filled Start Date End Date dorzolamide-timolo L (COSOPT) 22.3-6.8 mg/mL ophthalmic solution Administer 1 drop into the right eye 2 (two) times a day 10 mL 1 02/17/2020 1 brimonidine (ALPHAGAN P) 0.1 % dropsIndications:o pen angle glaucoma Administer 1 drop into the right eye 3 (three) times a day 15 mL 1 02/17/2020 1 documented in this encounter Discharge Disposition Disposition Code Departure Means Destination Discharge to home or self care documented in this encounter Consult Notes * Juan Mcdaniel MD - 02/17/2020 6:21 PM CDTAssociated Order(s): IP CONSULT TO OPHTHALMOLOGY OPHTHALMOLOGY - ED NEW CONSULT REPORT Reason for Consult: acute visual changes in Right eye (halos, wavy lines). Hx of Glaucoma. Hx of complete vision loss in Left eye (now has prosthesis). Requesting Provider: ED Admit Date: No admission date for patient encounter. Admit Diagnosis: VISION History of Present Illness:This is a 40 y.o. 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 Per patient, states starting yesterday noticed she had central floater described as black lightning that was flashing, also felt vision was hazy with halos in direct sunlight. Denies and ocular/retrobulbar pain or pressure, KISER, N/V, photophobia, showers 1000s floaters, curtaining, complete loss of vision. Today she lied down around 1400 and felt the haziness and halos worsened, prompting presentation. No other new symptoms. No photophobia, scotoma, diplopia, redness, or eye pain/pressure/itching. Per pt, CE/IOL at 6mos old, followed by multiple surgeries for recurrent RD OS eventually requiringenucleation with prothesis fitting. Denies other glaucoma procedures OD. Currently on latanoprost QHS OD, no other gtts. Follows with Dr. Sweet at [facility], last seen 6mo ago with a HVF and a picture of the eye; states she thinks IOP was 19 but is not sure, unsure if HVF or [OCT] were abnormal. Scheduled to be seen again 03/2020 she thinks for another HVF and picture. Does not believe she has been told she has narrow angles, does not recall having a recent gonio exam (after had exam here, no recent similar exam). Review of Systems: Ocular ROS as above Unless noted in HPI all other systems negative. Past Ocular History: As above Past Medical History: Diagnosis Date ??? Depression Depression ??? GERD (gastroesophageal reflux disease) ??? Glaucoma glaucoma ??? HX OTHER MEDICAL L/R cataract extraction ??? HX OTHER MEDICAL Detached Retina ??? HX OTHER MEDICAL Scar tissure removal Left Eye ??? HX OTHER MEDICAL myringotomy tubes ??? HX OTHER MEDICAL Menorrhagia ??? HX OTHER MEDICAL [place] teeth extraction 12/18 ??? HX OTHER MEDICAL 01-loan documents closer ??? HX OTHER MEDICAL right lens implant -2011 ??? HX OTHER MEDICAL OPTHO ??? HX OTHER MEDICAL milk duct removed right breast ; benign pap ??? 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 HX OTHER MEDICAL left Shoulder pain ??? HX OTHER MEDICAL fibroid removed ??? Hypertension Hypertension ??? Polycystic ovarian disease a Past Surgical History: Procedure Laterality Date ??? BREAST BIOPSY Left 12/19/2019 ??? CATARACT EXTRACTION Bilateral 1982 Cataract extraction ??? CHOLECYSTECTOMY 2009 Cholecystectomy ??? 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 HISTORY L/R cataract extraction: 1982 ??? 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 HISTORY Detached Retina: Surgically repaired; 1982 ??? 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 HISTORY Scar tissure removal Left Eye: 2008 ??? 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 HISTORY myringotomy tubes: 1989 ??? 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 HISTORY 01-loan documents closer: [facility] ??? 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 HISTORY right lens implant : Dr Barrios - [facility] ??? 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 HISTORY 2012 breast bx R - benign ??? 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 HISTORY milk duct removed right breast ; benign papilloma: [facility] ??? 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 HISTORY left eye removed 02-10-12, prosthetic: Dr Fidel Hsu - [facility] ??? 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 HISTORY 1983 retinal reattachment ??? 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 HISTORY 2012 eye removal ??? 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 HISTORY 2011 milk duct removal ??? TONSILLECTOMY AND ADENOIDECTOMY ??? TYMPANOSTOMY TUBE PLACEMENT 1993 tubes in ears Family History Problem Relation Age of Onset [...] Maternal Grandfather ??? Anesthesia problems Neg Hx Social History Socioeconomic History ??? Marital status: [...] Drug use: No ??? Sexual activity: Defer Lifestyle ??? Physical activity Days per week: Not on file Minutes per session: Not on file ??? Stress: Not on file Relationships ??? Social connections Talks on phone: Not on file Gets together: Not on file Attends mormon service: Not on file Active member of club or organization: Not on file Attends meetings of clubs or organizations: Not on file Relationship status: Not on file ??? Intimate partner violence Fear of current or ex partner: Not on file Emotionally abused: Not on file Physically abused: Not on file Forced sexual activity: Not on file Other Topics Concern ??? ADL RESPONSE ??? ADL RESPONSE ??? ADL RESPONSE Yes Comment: 100 oz coffee tea /day ??? ADL RESPONSE ??? ADL RESPONSE ??? ADL RESPONSE ??? ADL RESPONSE ??? ADL RESPONSE ??? ADL RESPONSE ??? ADL RESPONSE ??? ADL RESPONSE ??? ADL RESPONSE ??? ADL RESPONSE ??? ADL RESPONSE Social History Narrative ??? Not on file Current Facility-Administered Medications Medication Dose Route Frequency Provider Last Rate Last Dose ??? acetaZOLAMIDE (DIAMOX) injection 500 mg 500 mg intravenous Once Gregory Lucia MD Current Outpatient Medications Medication Sig Dispense Refill [...] tablet Take 150 mg by mouth nightly Physical Exam: Vitals: 02/17/20 1548 BP: 135/89 Pulse: 100 Resp: 16 Temp: 36.5 ??C (97.7 ??F) SpO2: 95% Base Eye Exam Visual Acuity Right Left Near sc 20/25+ PH 20/20 IOL set for Near; Slower, had to move card closer and further to get [facility] Tonometry (Tonopen, 5:48 PM) Right Left Pressure 51 Tonometry #2 (Tonopen, 5:48 PM) Right Left Pressure 47 Tonometry #3 (Tonopen, 5:48 PM) Right Left Pressure 47 Tonometry #4 (Tonopen, 6:53 PM) Right Left Pressure 26 Tonometry #5 (Tonopen, 6:53 PM) Right Left Pressure 27 Tonometry Comments All IOPs 95% CI w/o squeezing; T4/T5 s/p 3 rounds Cosopt/Brim and dilation Gonioscopy Right Left Temporal Grade 3 Nasal Grade 3 Superior Grade 3 Inferior Grade 3 Difficult view temporally but appears gr3 Pupils Dark Light Shape React Right 3 2.5 Round Brisk Left Visual Bay (Counting fingers) Right Left Full No central scotoma to facial recognition Extraocular Movement Right Left 0 0 0 0 0 0 0 0 -- -- -- -- -- -- -- -- Poor movement of prothesis OS Dilation Both eyes: 2.5% Phenylephrine, 1.0% Mydriacyl @ 5:48 PM Additional Notes B-scan with significant syneresis OD but no clear RD Slit Lamp and Fundus Exam External Exam Right Left External Normal prothesis Slit Lamp Exam Right Left Lids/Lashes Normal Conjunctiva/Sclera White and quiet Cornea Clear Anterior Chamber Deep and quiet Iris Round and reactive, poor dilation Lens PCIOL s/p YAG cap Vitreous Vitreous syneresis Fundus Exam Right Left Disc Normal, sharp margins, no pallor C/D Ratio 0.35 Macula Normal, flat, no heme Vessels Normal Difficult view of periphery with poor dilation, small YAG ASSESSMENT/PLAN AND RECOMMENDATIONS: 1. Congenital glaucoma OD w/ acute IOP elevation -- S/p CE/IOL OD, no other glaucoma surgeries; on Latanoprost QHS OD w/o other gtts -- 1-2 days symptoms of blur/halos w/o pain/nausea/KISER/photophobia/injection -- IOP initially 47-51; s/p Cosopt/Brim x3 round IOP improved to 26/27 -- Recommended IV Diamox 500mg initally, but given improvement to below 30 on topical alone can forgo -- Start Cosopt BID OD, Brimonidine TID OD until follow up -- Follow up with establish associate consulting engineer per patient preference next available -- Discussed return precautions for signs and symptoms of elevated intra-ocular pressure (worseningvision, N/V, KISER, eye pain). Instructed the patient to immediately call back/present if any of theseoccur. 2. Prothesis OS -- Agressive treatment for IOP OD as above -- Monocular precautions, follow up as below Ophthalmology follow-up: Follow up with establish associate consulting engineer per patient preference next available; if cannot be seen next Mon/Tues then Please call the [facility] ([facility]) at [phone] to schedule a follow up visit next Mon/Tues This patient was discussed with Dr. Pilar Avila, PGY-4 Juan Mcdaniel MD, 02/17/2020 7:13 PM Ophthalmology, PGY-2 Please page the ophthalmology resident on-call via [facility] with any questions. This consult is NOT complete without attending attestation and/or cosign. Cosigned by Ubaldo Montilla MD at 02/19/2020 8:03 AM CDT documented in this encounter ED Notes * Gregory Lucia MD - 02/17/2020 7:32 PM CDT Please see my Triage Provider Note for HPI, ROS, Exam, Impression, and Plan. Gregory Lucia MD 02/17/201931 * Viktor Velasquez RN - 02/17/2020 3:49 PM CDT Present with complaint of right eye vision changes started this am. Hx of lack of eye site in left eye. Denies trauma, has eye implant in right eye. documented in this encounter Miscellaneous Notes * ED Triage Provider Note - Gregory Lucia MD - 02/17/2020 8:01 PM CDT Triage Provider Summary: Cesario Jewell is 40 y.o. female here with concern for change vision in right eye with wavy lines in her visual field. She has prosthetic left eye do to remote prior eye trauma. Review of Systems Eyes: Positive for blurred vision (right eye wavy lines ) and pain. Negative for discharge and redness. Respiratory: Negative. Cardiovascular: Negative. Gastrointestinal: Negative. Genitourinary: Negative. Past Medical History: Diagnosis Date ??? Depression Depression ??? GERD (gastroesophageal reflux disease) ??? Glaucoma glaucoma ??? HX OTHER MEDICAL L/R cataract extraction ??? HX OTHER MEDICAL Detached Retina ??? HX OTHER MEDICAL Scar tissure removal Left Eye ??? HX OTHER MEDICAL myringotomy tubes ??? HX OTHER MEDICAL Menorrhagia ??? HX OTHER MEDICAL [place] teeth extraction 12/18 ??? HX OTHER MEDICAL 01-loan documents closer ??? HX OTHER MEDICAL right lens implant ??? HX OTHER MEDICAL OPTHO ??? HX OTHER MEDICAL milk duct removed right breast ; benign pap ??? 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 HX OTHER MEDICAL left Shoulder pain ??? HX OTHER MEDICAL fibroid removed ??? Hypertension Hypertension ??? Polycystic ovarian disease PHYSICAL EXAM: GENERAL: Well developed, well nourished. No apparent distress. VITAL SIGNS: 02/16 1548 135/89 36.5 ??C (97.7 ??F) 100 16 95 % RESPIRATORY: No respiratory distress or accessory muscle use. Speaks in full sentences without difficulty. NEUROLOGIC: Awake, alert, and oriented. Speech is clear and fluent. Ambulatory without assistance. No facial droop. TRIAGE IMPRESSION: Acute visual disturbance in Right Eye. Presence of prosthetic Left eye. Concern for glaucoma with uncontrolled intra-ocular pressure. PLAN: Ophthalmology consultation for further evaluation and management. Gregory Lucia MD, FACEP, FAACT Mining And Quarrying Machinery Repairer, Emergency Medicine BILITATION PROGRAM COORDINATOR documented in this encounter Plan of Treatment Not on file documented as of this encounter Visit Diagnoses Diagnosis Change in vision- Primary Glaucoma of right eye, unspecified glaucoma type History of intraocular lens implant History of eye prosthesis Elevated IOP, right History of intraocular lens implant History of eye prosthesis documented in this encounter Active and Recently Administered Medications Orders Medications Ordered That Ben ht Not Have Been Administered Count Last Ordered Date First Ordered Date acetaZOLAMIDE (DIAMOX) injection 500 mg 1 1 Consult Count Last Ordered Date First Orde red Date IP CONSULT TO OPHTHALMOLOGY 1 02/17/2020 documented in this encounter Care Teams Sheet Folder Relationship Specialty Start Date End Date Martha [place] [address] PCP - General 02/24/19 Zoran Willams Family Medicine 05/18/18 documented as of this encounter
--- OUTSIDE RECORDS SUMMARY | 2024-05-13 22:22 | XMS_ITS | Encounter Summary ---
Author Organization [facility] Healthcare Address [address] [place] [address] Care Team Providers Care Video Specialist Name Role Phone Zoran Willams Unavailable Unavailable Martha Lawrence MD Primary Care Provider [phone]- [phone] Reason for Referral * Diagnostic Imaging (Routine) - Closed Specialty Diagnoses / Procedures Referred By Contac t Referred To Contact Diagnoses Nipple discharge in female Procedures Diagnostic Mammogram Bilateral W Meggan Robertson MD [address] [place] [address] Phone: tel: fax: [address] [phone] Referral ID Status Reason Start Date Expiration Date Visits Re quested Visits Authorized [id number] Closed 03/14/2021 04/13/2022 1 1 BOX MECHANIC Reason for Visit * Diagnostic Imaging (Routine) - Closed Specialty Diagnoses / Procedures Referred By Contac t Referred To Contact Diagnoses Nipple discharge in female Procedures Diagnostic Mammogram Bilateral W Meggan Robertson MD [address] [address] Phone: tel: fax: [address] [phone] Referral ID Status Reason Start Date Expiration Date Visits Re quested Visits Authorized [id number] Closed 03/14/2021 04/13/2022 1 1 Encounter Details Date Type Department Care Team (Latest Contact Info) Description 03/18/2021 2:30 PM JUKE BOX MECHANIC - 03/18/2021 11:59 PM JUKE BOX MECHANIC Hospital Encounter [facility] [address] [place] [address] Meggan Martinez MD [address] [address] Nipple discharge in female Discharge Disposition: Discharge to home or self care Social History Tobacco Use Types Packs/Day Years Used Date Smoking Tobacco: Never Smokeless Tobacco: Never Alcohol Use Standard Drinks/Week Comments No 0 (1 standard drink = 0.6 oz pur e alcohol) Comments No Sex and Gender Information Value Date Recorded Sex Assigned at Not on file Legal Sex Female 10:37 AM JUKE BOX MECHANIC Gender Identity Not on file Sexual Orientation Not on file documented as of this encounter Medications at Time of Discharge [...] (10 mg total) by mouth nightly 10/31/2019 hydrOXYzine (ATARAX) 25 mg tabletIndication s:anxiety Take 25 mg by mouth as needed 07/30/2020 4 lamoTRIgine (LaMICtal) 100 mg tabletIndication s:MOOD STABILIZER Take 1 tablet (100 mg total) by mouth nightly 4 latanoprost (XALATAN) 0.005 % ophthalmic solution latanoprost 0.005 % eye drops INSTILL 1 DROP INTO RIGHT EYE AT BEDTIME 03/05/2018 1 metFORMIN XR (GLUCOPHAGE XR) 500 mg 24 hr tabletIndication s:Polycystic Ovarian Syndrome Take 500 mg by mouth daily with breakfast 04/20/2019 1 neomycin-polymyx in-dexAMETHasone (MAXITROL) 3.5mg/mL-10,000 unit/mL-0.1 % ophthalmic suspension INSTILL 1 (ONE) DROP INTO RIGHT EYE 2 TIMES DAILY 07/12/2020 1 Ozempic 1 mg/dose (4 mg/3 mL) pen injector injectionIndicat ions:pre diabetic 1 mg once a week Takes on Wednesday03/06/2021 3 pilocarpine (PILOCAR) 1 % ophthalmic solution Administer 1 drop into affected eye(s) 2 (two) times a day 07/26/2020 1 semaglutide (Rybelsus) 7 mg tabletIndication s:WEIGHT LOSS every morning 05/08/20 2 1 spironolactone (ALDACTONE) 100 mg tabletIndication s:hypertension Take 1 tablet (100 mg total) by mouth every morning 4 traZODone (DESYREL) 150 mg tabletIndication s:major depressive disorder Take 1 tablet (150 mg total) by mouth nightly 4 documented as of this encounter Discharge Disposition Disposition Code Departure Means Destination Discharge to home or self care documented in this encounter Plan of Treatment Not on file documented as of this encounter Procedures Procedure Name Priority Date/Time Associated Diagnosis Comments US BREAST RIGHT LIMITED Schedule Routine, Read Routine (OP Routine) 03/18/2021 4:08 PM JUKE BOX MECHANIC Nipple discharge in female DIAGNOSTIC MAMMOGRAM BILATERAL W RM Schedule Routine, Read Routine (OP Routine) 03/18/2021 3:39 PM JUKE BOX MECHANIC Nipple discharge in female documented in this encounter Results * US Breast Right Limited (03/18/2021 4:08 PM JUKE BOX MECHANIC) Anatomical Region Laterality Modality Breast Right Ultrasound 03/18/2021 4:19 PM JUKE BOX MECHANIC Impressions 03/18/2021 4:52 PM JUKE BOX MECHANIC 1. ??Two intraductal masses and/or debris within the RIGHT subareolar region within 1 cm of the nipple, one of which is sonographically stable from 2011. ??Given clinical history of multiple biopsy-proven papillomas, findings are considered benign. Per discussion with Dr. Martinez, the patient desires a central duct excision for symptomatic relief. ??If biopsy is clinically necessary prior to excision, either mass could be biopsied under ultrasound guidance. 2. ??No mammographic evidence of malignancy in either breast. OVERALL FINAL ASSESSMENT: BI-RADS Category 2: Benign. RECOMMENDATION: Clinical follow-up. Dictated by: Maile Cedillo MD The radiology attending physician has personally reviewed this study, and had reviewed and/or edited this written report and agrees with it. Electronically signed by: Meryl Olguin M.D. Narrative 03/18/2021 4:52 PM JUKE BOX MECHANIC EXAMINATION: BILATERAL DIGITAL DIAGNOSTIC MAMMOGRAM INCLUDING CAD AND BILATERAL DIGITAL BREAST TOMOSYNTHESIS; RIGHT BREAST SONOGRAM HISTORY: 41-year-old female presenting for 2 month history of RIGHT nipple discharge which she describes as yellow/clear in color and is spontaneous. ??She has a history of bilateral intraductal papillomas with reportedly a prior central duct excision in the RIGHT breast and lumpectomy in the LEFT breast in December 2019 with biopsy demonstrating a benign papilloma. COMPARISON: Diagnostic mammogram and ultrasound 12/19/2019, with additional RIGHT breast ultrasounds dating to 09/08/2011. TECHNIQUE: ?? Full field digital mammographic views of BOTH breasts were performed, including computer aided detection (CAD) and BILATERAL digital breast tomosynthesis (DBT). ??Directed ultrasound evaluation of the RIGHT breast was performed. BREAST PARENCHYMAL COMPOSITION: The breasts are heterogenously dense, which may obscure small masses. MAMMOGRAM FINDINGS: There are post-surgical changes in both breasts from prior surgical excisions. ??There is no new mass, calcification, or distortion within either breast. ?? SONOGRAM FINDINGS: Targeted sonographic evaluation of the subareolar RIGHT breast was performed. ??Of note, all imaging was within 1 cm from the nipple. ??At the 12 o'clock position there is intraductal mass and debris with small amount of internal blood flow which is stable sonographically from 09/08/2011 ultrasound. ??There is additional intraductal mass and/or debris at the 9 o'clock position. ??No other sonographic abnormality is seen in the subareolar right breast. Procedure Note Meryl Olguin MD - 03/18/2021 EXAMINATION: BILATERAL DIGITAL DIAGNOSTIC MAMMOGRAM INCLUDING CAD AND BILATERAL DIGITAL BREAST TOMOSYNTHESIS; RIGHT BREAST SONOGRAM HISTORY: 41-year-old female presenting for 2 month history of RIGHT nipple discharge which she describes as yellow/clear in color and is spontaneous. She has a history of bilateral intraductal papillomas with reportedly a prior central duct excision in the RIGHT breast and lumpectomy in the LEFT breast in December 2019 with biopsy demonstrating a benign papilloma. COMPARISON: Diagnostic mammogram and ultrasound 12/19/2019, with additional RIGHT breast ultrasounds dating to 09/08/2011. TECHNIQUE: Full field digital mammographic views of BOTH breasts were performed, including computer aided detection (CAD) and BILATERAL digital breast tomosynthesis (DBT). Directed ultrasound evaluation of the RIGHT breast was performed. BREAST PARENCHYMAL COMPOSITION: The breasts are heterogenously dense, which may obscure small masses. MAMMOGRAM FINDINGS: There are post-surgical changes in both breasts from prior surgical excisions. There is no new mass, calcification, or distortion within either breast. SONOGRAM FINDINGS: Targeted sonographic evaluation of the subareolar RIGHT breast was performed. Of note, all imaging was within 1 cm from the nipple. At the 12 o'clock position there is intraductal mass and debris with small amount of internal blood flow which is stable sonographically from 09/08/2011 ultrasound. There is additional intraductal mass and/or debris at the 9 o'clock position. No other sonographic abnormality is seen in the subareolar right breast. IMPRESSION: 1. Two intraductal masses and/or debris within the RIGHT subareolar region within 1 cm of the nipple, one of which is sonographically stable from 2011. Given clinical history of multiple biopsy-proven papillomas, findings are considered benign. Per discussion with Dr. Martinez, the patient desires a central duct excision for symptomatic relief. If biopsy is clinically necessary prior to excision, either mass could be biopsied under ultrasound guidance. 2. No mammographic evidence of malignancy in either breast. OVERALL FINAL ASSESSMENT: BI-RADS Category 2: Benign. RECOMMENDATION: Clinical follow-up. Dictated by: Maile Cedillo MD The radiology attending physician has personally reviewed this study, and had reviewed and/or edited this written report and agrees with it. Electronically signed by: Meryl Olguin M.D. Meggan Martinez MD IMG MAMMO PROCEDURES Fi nal Result * Diagnostic Mammogram Bilateral W Rm (03/18/2021 3:39 PM JUKE BOX MECHANIC) Anatomical Region Laterality Modality Breast Bilateral Mammography 03/18/2021 4:19 PM JUKE BOX MECHANIC Impressions 03/18/2021 4:52 PM JUKE BOX MECHANIC 1. ??Two intraductal masses and/or debris within the RIGHT subareolar region within 1 cm of the nipple, one of which is sonographically stable from 2011. ??Given clinical history of multiple biopsy-proven papillomas, findings are considered benign. Per discussion with Dr. Martinez, the patient desires a central duct excision for symptomatic relief. ??If biopsy is clinically necessary prior to excision, either mass could be biopsied under ultrasound guidance. 2. ??No mammographic evidence of malignancy in either breast. OVERALL FINAL ASSESSMENT: BI-RADS Category 2: Benign. RECOMMENDATION: Clinical follow-up. Dictated by: Maile Cedillo MD The radiology attending physician has personally reviewed this study, and had reviewed and/or edited this written report and agrees with it. Electronically signed by: Meryl Olguin M.D. Narrative 03/18/2021 4:52 PM JUKE BOX MECHANIC EXAMINATION: BILATERAL DIGITAL DIAGNOSTIC MAMMOGRAM INCLUDING CAD AND BILATERAL DIGITAL BREAST TOMOSYNTHESIS; RIGHT BREAST SONOGRAM HISTORY: 41-year-old female presenting for 2 month history of RIGHT nipple discharge which she describes as yellow/clear in color and is spontaneous. ??She has a history of bilateral intraductal papillomas with reportedly a prior central duct excision in the RIGHT breast and lumpectomy in the LEFT breast in December 2019 with biopsy demonstrating a benign papilloma. COMPARISON: Diagnostic mammogram and ultrasound 12/19/2019, with additional RIGHT breast ultrasounds dating to 09/08/2011. TECHNIQUE: ?? Full field digital mammographic views of BOTH breasts were performed, including computer aided detection (CAD) and BILATERAL digital breast tomosynthesis (DBT). ??Directed ultrasound evaluation of the RIGHT breast was performed. BREAST PARENCHYMAL COMPOSITION: The breasts are heterogenously dense, which may obscure small masses. MAMMOGRAM FINDINGS: There are post-surgical changes in both breasts from prior surgical excisions. ??There is no new mass, calcification, or distortion within either breast. ?? SONOGRAM FINDINGS: Targeted sonographic evaluation of the subareolar RIGHT breast was performed. ??Of note, all imaging was within 1 cm from the nipple. ??At the 12 o'clock position there is intraductal mass and debris with small amount of internal blood flow which is stable sonographically from 09/08/2011 ultrasound. ??There is additional intraductal mass and/or debris at the 9 o'clock position. ??No other sonographic abnormality is seen in the subareolar right breast. Procedure Note Meryl Olguin MD - 03/18/2021 EXAMINATION: BILATERAL DIGITAL DIAGNOSTIC MAMMOGRAM INCLUDING CAD AND BILATERAL DIGITAL BREAST TOMOSYNTHESIS; RIGHT BREAST SONOGRAM HISTORY: 41-year-old female presenting for 2 month history of RIGHT nipple discharge which she describes as yellow/clear in color and is spontaneous. She has a history of bilateral intraductal papillomas with reportedly a prior central duct excision in the RIGHT breast and lumpectomy in the LEFT breast in December 2019 with biopsy demonstrating a benign papilloma. COMPARISON: Diagnostic mammogram and ultrasound 12/19/2019, with additional RIGHT breast ultrasounds dating to 09/08/2011. TECHNIQUE: Full field digital mammographic views of BOTH breasts were performed, including computer aided detection (CAD) and BILATERAL digital breast tomosynthesis (DBT). Directed ultrasound evaluation of the RIGHT breast was performed. BREAST PARENCHYMAL COMPOSITION: The breasts are heterogenously dense, which may obscure small masses. MAMMOGRAM FINDINGS: There are post-surgical changes in both breasts from prior surgical excisions. There is no new mass, calcification, or distortion within either breast. SONOGRAM FINDINGS: Targeted sonographic evaluation of the subareolar RIGHT breast was performed. Of note, all imaging was within 1 cm from the nipple. At the 12 o'clock position there is intraductal mass and debris with small amount of internal blood flow which is stable sonographically from 09/08/2011 ultrasound. There is additional intraductal mass and/or debris at the 9 o'clock position. No other sonographic abnormality is seen in the subareolar right breast. IMPRESSION: 1. Two intraductal masses and/or debris within the RIGHT subareolar region within 1 cm of the nipple, one of which is sonographically stable from 2011. Given clinical history of multiple biopsy-proven papillomas, findings are considered benign. Per discussion with Dr. Martinez, the patient desires a central duct excision for symptomatic relief. If biopsy is clinically necessary prior to excision, either mass could be biopsied under ultrasound guidance. 2. No mammographic evidence of malignancy in either breast. OVERALL FINAL ASSESSMENT: BI-RADS Category 2: Benign. RECOMMENDATION: Clinical follow-up. Dictated by: Maile Cedillo MD The radiology attending physician has personally reviewed this study, and had reviewed and/or edited this written report and agrees with it. Electronically signed by: Meryl Olguin M.D. Meggan Martinez MD IMG MAMMO PROCEDURES Fi nal Result documented in this encounter Visit Diagnoses Diagnosis Nipple discharge in female documented in this encounter Care Teams Video Specialist Relationship Specialty Start Date End Date Martha Lawrence MD [address] [place] [address] [place] [address] PCP - General 02/24/19 Zoran Willams Family Medicine 05/18/18 documented as of this encounter
--- OUTSIDE RECORDS SUMMARY | 2024-05-13 22:22 | XMS_ITS | Encounter Summary ---
Author Organization [facility] Healthcare Address [address] [place] [address] Care Team Providers Care Technical Specialist Cytogenetics Name Role Phone Zoran Willams Unavailable Unavailable Martha Lawrence MD Primary Care Provider [phone]- [phone] Reason for Visit * Reason Comments Polycystic Ovary Syndrome Encounter Details Date Type Department Care Team (Late st Contact Info) Description 11/10/2023 10:15 AM CDT Office Visit [facility] [id number] [place] [address] [place] [phone] [place]n Peterson [place] [id number] [place] [id number] Polycystic ovarian syndrome (Primary Dx); Prediabetes; Class 2 severe obesity due to excess calories with serious comorbidity and body mass index (BMI) of 36.0 to 36.9 in adult (HCC) Social History Tobacco Use Types Packs/Day Years [...] more drinks on one occasion? Never 05/19/2021 PHQ-2 Answer Date Recorded PHQ-2 Total Score (If total score is 3 or more points, staff should administer the PHQ-9) 2 11/10/2023 Comments No Sex and Gender Information Value Date Recorded Sex Assigned at Not on file Legal Sex Female 10:37 AM REHABILITATION THERAPIST Gender Identity Not on file Sexual Orientation Not on file documented as of this encounter Last Filed Vital Signs Vital Sign Reading Time Taken Comments Blood Pressure 122/80 11/10/2023 10:09 AM CDT Pulse 85 11/10/2023 10:09 AM CDT Temperature - - Respiratory Rate 16 11/10/2023 10:09 AM CDT Oxygen Saturation - - Inhaled Oxygen Concentration - - Weight 103.4 kg (228 lb) 11/10/2023 10:09 AM CDT Height 167.6 cm (5' 6 ) 11/10/2023 10:09 AM CDT Body Mass Index 36.8 11/10/2023 10:09 AM CDT documented in this encounter Ordered Prescriptions Prescription Sig Dispense Quantity Refills Last Filled Start Date End Date tirzepatide (Mounjaro) 5 mg/0.5 mL pen injectorIndication s:Polycystic ovarian syndrome,Prediabet es Inject 5 mg under the skin once a week 2 mL 5 11/10/2023 05/08/2024 documented in this encounter Progress Notes * Bryn Peterson MD - 11/10/2023 10:15 AM CDT Images from the original note were not included. [facility] Follow up Note Subjective/Objective Patient ID: Cesario Jewell is a 43 y.o. female Chief Complaint Polycystic Ovary Syndrome HPI Follow-up visit for PCOS, prediabetes, obesity Pt gives a h/o diagnosed with PCOS, Pre diabetes since 10-15 years Pt lost 30 lbs since last 6 months Pt states she is doing good with her diet and exercise Pt currently on Mounjaro 5 mg SQ weekly Pt having regular periods exercising consistently Physical Exam Constitutional: Appearance: She is obese. HENT: Head: Normocephalic and atraumatic. Eyes: Conjunctiva/sclera: Conjunctivae normal. Cardiovascular: Rate and Rhythm: Normal rate and regular rhythm. Heart sounds: Normal heart sounds. Pulmonary: Effort: Pulmonary effort is normal. Breath sounds: Normal breath sounds. Abdominal: General: Bowel sounds are normal. Palpations: Abdomen is soft. Musculoskeletal: Cervical back: Neck supple. Right lower leg: No edema. Left lower leg: No edema. Skin: General: Skin is warm and dry. Neurological: Mental Status: She is alert. Mental status is at baseline. Deep Tendon Reflexes: Reflexes are normal and symmetric. Psychiatric: Behavior: Behavior normal. Labs/Imaging: No new labs to review Assessment/Plan Diagnoses and all orders for this visit: Polycystic ovarian syndrome (Primary) Assessment & Plan: Counseled patient on diet and exercise Advised patient to stop added sugars, cutback on processed foods Include whole grain, fruits and vegetables, greens, lean, organic fashion chicken Cutback on red meat and processed meat Avoid animal daily products. Advised to include albumin milk. Okay to include Amharic yogurt Advise to look into intermittent fasting. Continue endurance and weight training Orders: - tirzepatide (Mounjaro) 5 mg/0.5 mL pen injector; Inject 5 mg under the skin once a week Prediabetes Assessment & Plan: Counseled on diet and exercise Continue mounjaro 5 mg subQ weekly Orders: - tirzepatide (Mounjaro) 5 mg/0.5 mL pen injector; Inject 5 mg under the skin once a week Class 2 severe obesity due to excess calories with serious comorbidity and body mass index (BMI) of36.0 to 36.9 in adult ([facility]) Assessment & Plan: Chronic, significant improvement, still above goal Encouraged to keep working on her healthy lifestyle habits Advised to include resistance training exercises Bryn Sharpe MD documented in this encounter Miscellaneous Notes * Assessment & Plan Note - Bryn Peterson MD - 11/10/2023 12:20 PM CDTAssociated Problem(s): Class 2 severe obesity due to excess calories with serious comorbidity and body mass index (BMI) of 36.0 to 36.9 in adult ([facility]) Chronic, significant improvement, still above goal Encouraged to keep working on her healthy lifestyle habits Advised to include resistance training exercises * Assessment & Plan Note - Bryn Peterson MD - 11/10/2023 12:19 PM CDTAssociated Problem(s): Prediabetes Counseled on diet and exercise Continue mounjaro 5 mg subQ weekly * Assessment & Plan Note - Bryn Peterson MD - 11/10/2023 12:19 PM CDTAssociated Problem(s): Polycystic ovarian syndrome Counseled patient on diet and exercise Advised patient to stop added sugars, cutback on processed foods Include whole grain, fruits and vegetables, greens, lean, organic fashion chicken Cutback on red meat and processed meat Avoid animal daily products. Advised to include albumin milk. Okay to include Amharic yogurt Advise to look into intermittent fasting. Continue endurance and weight training documented in this encounter Plan of Treatment Not on file documented as of this encounter Visit Diagnoses Diagnosis Polycystic ovarian syndrome- Primary Polycystic ovaries Prediabetes Other abnormal glucose Class 2 severe obesity due to excess calories with serious comorbidity and body mass index (BMI) of 36.0 to 36.9 in adult (HCC) documented in this encounter Discontinued Medications Medication Sig Discontinue Reason Start Date End Da te spironolactone (ALDACTONE) 100 mg tabletIndications:hype rtension Take 1 tablet (100 mg total) by mouth every morning 11/10/2023 traZODone (DESYREL) 150 mg tabletIndications:shahriar r depressive disorder Take 1 tablet (150 mg total) by mouth nightly 11/10/2023 lamoTRIgine (LaMICtal) 100 mg tabletIndications:MOOD STABILIZER Take 1 tablet (100 mg total) by mouth nightly 11/10/2023 hydrOXYzine (ATARAX) 25 mg tabletIndications:anxi ety Take 25 mg by mouth as needed 07/30/2020 11/10/2023 fluticasone propionate (FLONASE) 50 mcg/actuation nasal sprayIndications:Aller gic Conjunctivitis Administer 2 sprays into each nostril every morning 11/10/2023 ALPRAZolam (XANAX) 0.5 mg tabletIndications:anxi ety Take 0.5 mg by mouth as needed 04/07/2021 11/10/2023 tirzepatide (Mounjaro) 5 mg/0.5 mL pen injectorIndications:Po lycystic ovarian syndrome,Prediabetes INJECT 5 MG SUBCUTANEOUSLY EVERY 7 DAYS Reorder 10/18/2023 11/10/2023 documented as of this encounter Historical Medications * This list may reflect changes made after this encounter. Myfembree 40-1-0.5 mg tablet Take 1 tablet by mouth daily pancrelipase (Zenpep) 40,000-126,000- 168,000 unit per capsule TAKE 2 CAPSULES WITH MEALS AND 1 CAPSULE WITH SNACKS latanoprost (XALATAN) 0.005 % ophthalmic solution Administer 1 drop into affected eye(s) nightly 06/26/2021 atomoxetine (STRATTERA) 25 mg capsule Take by mouth daily 06/19/2021 added in this encounter Care Teams Technical Specialist Cytogenetics Relationship Specialty Start Date End Date Martha Lawrence MD [facility] [place] [address] PCP - General 02/24/19 Zoran Willams Family Medicine 05/18/18 documented as of this encounter
--- OUTSIDE RECORDS SUMMARY | 2024-05-13 22:22 | XMS_ITS | Encounter Summary ---
Author Organization [facility] Address [address] [facility] [address] [place] [address] Care Team Providers Care Vibrating Screen Operator Name Role Phone Zoran Willams Unavailable Unavailable Martha Lawrence MD Primary Care Provider [phone]- [phone] Reason for Visit * Reason Comments Follow-up Encounter Details Date Type Department Care Team (Late st Contact Info) Description 08/13/2020 9:00 AM CDT Office Visit [facility] [address] [facility] [address] [place] [id number] Roya Montes, [address] [facility] [address] [place], [place] [id number] Otorrhea of left ear (Primary Dx) Social History Tobacco Use Types Packs/Day Years Used Date Smoking Tobacco: Never Smokeless Tobacco: Never Alcohol Use Standard Drinks/Week Comments No 0 (1 standard drink = 0.6 oz pur e alcohol) Comments No Sex and Gender Information Value Date Recorded Sex Assigned at Not on file 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 Gender Identity Not on file Sexual Orientation Not on file documented as of this encounter Last Filed Vital Signs Vital Sign Reading Time Taken Comments Blood Pressure 147/82 08/13/2020 9:13 AM CDT Pulse 98 08/13/2020 9:13 AM CDT Temperature 36.5 ??C (97.7 ??F) 08/13/2020 9:13 AM CD T Respiratory Rate - - Oxygen Saturation - - Inhaled Oxygen Concentration - - Weight 115.2 kg (254 lb) 08/13/2020 9:13 AM CDT Height 167.6 cm (5' 6 ) 08/13/2020 9:13 AM CDT Body Mass Index 41 08/13/2020 9:13 AM CDT documented in this encounter Patient Instructions * Patient Instructions* Roya Montes DO - 08/13/2020 9:00 AM CDT Avoid ear cleaning techniques Avoid water to ears Ciprofloxacin 7 drops into the left ear twice daily for 10 days Call if no improvement in ear fullness documented in this encounter Ordered Prescriptions Prescription Sig Dispense Quantity Refills Last Filled Start Date End Date ciprofloxacin (CILOXAN) 0.3 % ophthalmic solutionIndication s:Otorrhea of left ear Administer 7 drops into the left eye 2 (two) times a day for 10 days 7 drops into the LEFT EAR, NOT EYE, twice daily for 10 days 10 mL 1 08/13/2020 documented in this encounter Progress Notes * Roya Montes DO - 08/13/2020 9:00 AM CDT Images from the original note were not included. ENT Progress Note Reason for Follow up: ear tube check Requesting Provider: No att. providers found SUBJECTIVE: Patient was following up for ear tube check. HPI: Micole reported complaint being left ear fullness and ear drainage. She reported continuing to use Q-tips in ears for ear drainage Last seen: 01/17/21 ?? Dysfunction of both eustachian tubes (Primary) Assessment & Plan: Avoid ear cleaning techniques Avoid water to ears Nasal saline spray (Simply saline, Little Remedies, [place], [place]) 2 second sprays or 2 squeezes into each nostril while looking down over the sink, do not need to sniff in. Follow up in 6 months, earlier with any ear drainage ?? 07/06/2019 T-tubes placed in Office Current Outpatient Medications on File Prior to [...] 25 mg tablet 100 mg nightly ??? metFORMIN XR (GLUCOPHAGE XR) 500 mg 24 hr tablet Take 500 mg by mouth daily with breakfast ??? montelukast (SINGULAIR) 10 mg tablet Take 10 mg by mouth nightly ??? ajvusdel-yophstzet-liyXOCCJeeyvp (MAXITROL) 3.5mg/mL-10,000 unit/mL-0.1 % ophthalmic suspensionINSTILL 1 (ONE) DROP INTO RIGHT EYE 2 TIMES DAILY ??? pilocarpine (PILOCAR) 1 % ophthalmic solution Administer 1 drop into affected eye(s) 2 (two) times a day ??? spironolactone (ALDACTONE) 100 mg tablet Take 100 mg by mouth every morning ??? traZODone (DESYREL) 50 mg tablet Take 150 mg by mouth nightly ??? hydrOXYzine (ATARAX) 25 mg tablet ??? latanoprost (XALATAN) 0.005 % ophthalmic solution latanoprost 0.005 % eye drops INSTILL 1 DROP INTO RIGHT EYE AT BEDTIME ??? semaglutide (Rybelsus) 7 mg tablet every morning ??? [DISCONTINUED] brimonidine (ALPHAGAN P) 0.1 % drops Administer 1 drop into the right eye 3 (three) times a day (Patient not taking: Reported on 08/13/2020) 15 mL 1 ??? [DISCONTINUED] dorzolamide-timoloL (COSOPT) 22.3-6.8 mg/mL ophthalmic solution Administer 1 drop into the right eye 2 (two) times a day (Patient not taking: Reported on 08/13/2020) 10 mL 1 ??? [DISCONTINUED] traMADoL (ULTRAM) 50 mg tablet Take 1 tablet (50 mg total) by mouth every 6 (six) hours as needed (severe pain that does not improve with just Tylenol / Ibuprofen) (Patient not taking: Reported on 08/13/2020) 8 tablet 0 No current facility-administered medications on file prior to visit. Allergies Allergen Reactions ??? Penicillins Hives ??? Sulfasalazine Hives and Rash ??? Sulfa (Sulfonamide Antibiotics) Eye irritation Reaction: itchy eyes, , ??? Sulfanilamide Other (See comments) Reaction: Conjunctivitis, ??? Oxycodone-Acetaminophen Diarrhea, Nausea Only and Vomiting OBJECTIVE: Vitals BP 147/82 (BP Location: Left arm, Patient Position: Sitting) Pulse 98 Temp 36.5 ??C (97.7 ??F) (Temporal) Ht 167.6 cm (5' 6 ) Wt 115.2 kg (254 lb) BMI 41.00 kg/m?? Review of Systems HENT: Positive for ear discharge and ear pain. Physical Exam HENT: Head: Normocephalic and atraumatic. Right Ear: External ear normal. Left Ear: External ear normal. Nose: Nose normal. Mouth/Throat: Mucous membranes are moist. Right ear: T-tube in place, patent, tube anteriorly located Left ear: T-tube in place, anteriorly located, debris and granulation tissue superior to the T-tube Eyes: Pupils are equal, round, and reactive to light. Abdominal: Normal appearance. Neurological: She is alert. Vitals reviewed. Binocular microscopy Performed by: ROYA MONTES Authorized by: ROYA MONTES Preparation: Patient was prepped and draped in the usual fashion. Patient sedated: no Patient tolerance: Patient tolerated the procedure well with no immediate complications Comments: Under visualization of the operating microscope, the left ear canal was examined and debris removed with #3 suction from the medial ear canal, t- tube in place, mild surrounding debris Assessment & Plan: Diagnoses and all orders for this visit: Otorrhea of left ear (Primary) Assessment & Plan: Avoid ear cleaning techniques Avoid water to ears Ciprofloxacin 7 drops into the left ear twice daily for 10 days Call if no improvement in ear fullness Orders: - ciprofloxacin (CILOXAN) 0.3 % ophthalmic solution; Administer 7 drops into the left eye 2 (two) times a day for 10 days 7 drops into the LEFT EAR, NOT EYE, twice daily for 10 days Roya Montes DO documented in this encounter Miscellaneous Notes * Assessment & Plan Note - Roya Montes DO - 08/13/2020 9:25 AM CDT Associated Problem(s): ETD (Eustachian tube dysfunction), left ?? 07/06/2019 T-tubes placed in Office * Assessment & Plan Note - Roya Montes DO - 08/13/2020 9:23 AM CDT Associated Problem(s): Otorrhea of left ear Avoid ear cleaning techniques Avoid water to ears Ciprofloxacin 7 drops into the left ear twice daily for 10 days Call if no improvement in ear fullness documented in this encounter Plan of Treatment Not on file documented as of this encounter Visit Diagnoses Diagnosis Otorrhea of left ear- Primary documented in this encounter Discontinued Medications Medication Sig Discontinue Reason Start Date End Da te traMADoL (ULTRAM) 50 mg tablet Take 1 tablet (50 mg total) by mouth every 6 (six) hours as needed (severe pain that does not improve with just Tylenol / Ibuprofen) Therapy completed 01/08/2020 08/13/2020 brimonidine (ALPHAGAN P) 0.1 % dropsIndications:open angle glaucoma Administer 1 drop into the right eye 3 (three) times a day Therapy completed 02/17/2020 08/13/2020 dorzolamide-timoloL (COSOPT) 22.3-6.8 mg/mL ophthalmic solution Administer 1 drop into the right eye 2 (two) times a day Therapy completed 02/17/2020 08/13/2020 documented as of this encounter Historical Medications * This list may reflect changes made after this encounter. neomycin-polymyx in-dexAMETHasone (MAXITROL) 3.5mg/mL-10,000 unit/mL-0.1 % ophthalmic suspension INSTILL 1 (ONE) DROP INTO RIGHT EYE 2 TIMES DAILY 07/12/2020 hydrOXYzine (ATARAX) 25 mg tabletIndication s:anxiety Take 25 mg by mouth as needed 07/30/2020 4 pilocarpine (PILOCAR) 1 % ophthalmic solution Administer 1 drop into affected eye(s) 2 (two) times a day 07/26/2020 1 added in this encounter Care Teams Vibrating Screen Operator Relationship Specialty Start Date End Date Martha Lawrence MD [address] [employer] [place] [id number] PCP - General 02/24/19 Zoran Willams Family Medicine 05/18/18 documented as of this encounter
--- OUTSIDE RECORDS SUMMARY | 2024-05-13 22:22 | XMS_ITS | Encounter Summary ---
Author Organization [facility] Address [address] [place] [address] Phone Care Team Providers Care Guardian Family Member Name Role Phone Zoran Willams Unavailable Unavailable Martha Lawrence MD Primary Care Provider [phone]- [phone] Reason for Referral * Diagnostic Imaging (Routine) - Closed Specialty Diagnoses / Procedures Referred By Joelle lopez Referred To Contact Diagnoses Nipple discharge in female Procedures Diagnostic Mammogram Bilateral W RmMeggan Torres MD [address] [facility] [address] [place] [id number] Phone: tel: fax: [address] [address] Referral ID Status Reason Start Date Expiration Date Visits Re quested Visits Authorized [id number] Closed 03/14/2021 04/13/2022 1 1 Encounter Details Date Type Department Care Team (Late st Contact Info) Description 03/14/2021 Orders Only 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 ??Two intraductal masses and/or debris within [...] Meryl Olguin M.D. Narrative 03/18/2021 4:52 PM SUPERINTENDENT [employer] EXAMINATION: BILATERAL DIGITAL DIAGNOSTIC MAMMOGRAM INCLUDING CAD [...] Nipple discharge in female- Primary Nipple discharge in female documented in this encounter Care Teams Guardian Family Member Relationship Specialty Start Date End Date Martha Lawrence MD [address] [place] [id number] PCP - General 02/24/19 Zoran Willams Family Medicine 05/18/18 documented as of this encounter
--- OUTSIDE RECORDS SUMMARY | 2024-05-13 22:22 | XMS_ITS | Encounter Summary ---
Author Organization [facility] Healthcare Address [address] [place] [address] Care Team Providers Care Section Weaver Name Role Phone Zoran Willams Unavailable Unavailable Martah Lawrence MD Primary Care Provider +1- [phone] Reason for Visit * Reason Comments Polycystic Ovary Syndrome Encounter Details Date Type Department Care Team (Late st Contact Info) Description 04/06/2023 2:30 PM FINANCIAL ANALYSIS MANAGER Office Visit [facility] [id number] [place] [address] [place] [phone] Bryn Peterson MD [id number] [place] [id number] Polycystic ovarian syndrome (Primary Dx); Prediabetes; Vitamin D deficiency; Morbid obesity with BMI of 40.0-44.9, adult (HCC) Social History Tobacco Use Types [...] on file Legal Sex Female 10:37 AM FINANCIAL ANALYSIS MANAGER Gender Identity Not on file Sexual Orientation Not on file documented as of this encounter Last Filed Vital Signs Vital Sign Reading Time Taken Comments Blood Pressure 125/70 04/06/2023 2:37 PM FINANCIAL ANALYSIS MANAGER Pulse 83 04/06/2023 2:37 PM FINANCIAL ANALYSIS MANAGER Temperature - - Respiratory Rate 16 04/06/2023 2:37 PM FINANCIAL ANALYSIS MANAGER Oxygen Saturation - - Inhaled Oxygen Concentration - - Weight 117 kg (258 lb) 04/06/2023 2:37 PM FINANCIAL ANALYSIS MANAGER Height 167.6 cm (5' 6 ) 04/06/2023 2:37 PM FINANCIAL ANALYSIS MANAGER Body Mass Index 41.64 04/06/2023 2:37 PM FINANCIAL ANALYSIS MANAGER documented in this encounter Ordered Prescriptions Prescription Sig Dispense Quantity Refills Last Filled Start Date End Date tirzepatide (Mounjaro) 5 mg/0.5 mL pen injectorIndication s:Polycystic ovarian syndrome,Prediabet es Inject 5 mg under the skin every 7 days 2 mL 5 04/06/2023 10/18/2023 documented in this encounter Progress Notes * Bryn Peterson MD - 04/06/2023 2:30 PM CST Images from the original note were not included. [facility] Consult Note Subjective/Objective Patient ID: Cesario Jewell is a 43 y.o. female Chief Complaint Polycystic Ovary Syndrome HPI Pt. Seen today in consultation for POCS and Pre diabetes, requested by PCP Dr. Howard DOMINGO, comes in today with sister Pt gives a h/o diagnosed with PCOS, Pre diabetes since 10-15 years Pt used to follow with Dr. 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 Lunch - broccoli, meat balls ( every day same lunch ) Before dinner - Kannan, treadmill, cardio type exercise Dinner 5 pm - 6 pm - 1-2 x eat out side, otherwise cook at home Just starting weight training and yoga Sleep 7-9 pm in bed, 5 : 30 am wake up time Pt has anxiety and depression, on Rx, Patient currently in lot of stress as her is diagnosed as with brain tumor Past Medical History: Diagnosis Date Anxiety Asthma Breast discharge Depression Depression GERD (gastroesophageal reflux disease) Glaucoma glaucoma HX OTHER MEDICAL L/R cataract extraction HX OTHER MEDICAL Detached Retina HX OTHER MEDICAL Scar tissure removal Left Eye HX OTHER MEDICAL myringotomy tubes HX OTHER MEDICAL Menorrhagia HX OTHER MEDICAL [place] teeth extraction 12/18 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 right lens implant HX OTHER MEDICAL OPTHO HX OTHER MEDICAL milk duct removed right breast ; benign pap HX OTHER MEDICAL left eye removed 02-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, prosthetic HX OTHER MEDICAL left Shoulder pain HX OTHER MEDICAL fibroid removed Hypertension Hypertension Morbid obesity (HCC) Polycystic ovarian disease Past Surgical History: Procedure Laterality Date BREAST BIOPSY Left 12/19/2019 CATARACT EXTRACTION Bilateral 1982 Cataract extraction CHOLECYSTECTOMY 2008 Cholecystectomy 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 HISTORY L/R cataract extraction: 1982 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 HISTORY Detached Retina: Surgically repaired; 1982 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 HISTORY Scar tissure removal Left Eye: 2008 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 HISTORY myringotomy tubes: 1989 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 HISTORY 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: [facility] 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 HISTORY right lens implant : Dr Barrios - [facility] 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 HISTORY 2019 breast bx R - benign 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 HISTORY milk duct removed right breast ; benign papilloma: [facility] 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 HISTORY left eye removed 02-10-12, prosthetic: Dr Fidel Hsu - [facility] 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 HISTORY 1982 retinal reattachment 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 HISTORY Left 2012 eye removal 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 HISTORY 2011 milk duct removal TONSILLECTOMY AND ADENOIDECTOMY 2015 TYMPANOSTOMY TUBE PLACEMENT 1992 tubes in ears UTERINE FIBROID SURGERY Family History Problem Relation Age of Onset Diabetes Other Family history of Diabetes mellitus; Heart disease Other Family history of Heart disease; COPD Other Family history of COPD; Alcohol abuse Other Family history of Alcoholism; Stroke Other Family history of Stroke; Hypertension Other Family history of Hypertension; Mental illness Other Family history of Mental illness; Osteoarthritis Other Family history of Osteoarthritis; Kidney disease Other Family history of Renal disease; Ovarian cancer Paternal Grandmother Stroke Maternal Grandmother Stroke Maternal Grandfather Heart disease Maternal Grandfather Heart attack Maternal Grandfather Anemia Father Anesthesia problems Neg Hx Social History Tobacco Use Smoking status: Never Smokeless tobacco: Never Substance and Sexual Activity Drug use: No Sexual activity: Defer Alcohol Use: Not At Risk (05/19/2021) AUDIT-C Frequency of Alcohol Consumption: Monthly or less Average Number of Drinks: 1 or 2 Frequency of Binge Drinking: Never HOME MEDICATIONS : albuterol HFA (PROVENTIL HFA,VENTOLIN HFA,PROAIR HFA) 90 mcg/actuation inhaler buPROPion XL (WELLBUTRIN XL) 150 mg 24 hr tablet cholecalciferol (VITAMIN D-3) 5,000 unit tablet escitalopram (LEXAPRO) 20 mg tablet lamoTRIgine (LaMICtal) 100 mg tablet montelukast (SINGULAIR) 10 mg tablet nebivoloL (BYSTOLIC) 5 mg tablet spironolactone (ALDACTONE) 100 mg tablet traZODone (DESYREL) 150 mg tablet Ozempic 1 mg/dose (4 mg/3 mL) pen injector injection ALPRAZolam (XANAX) 0.5 mg tablet fluticasone propionate (FLONASE) 50 mcg/actuation nasal spray hydrOXYzine (ATARAX) 25 mg tablet tirzepatide (Mounjaro) 5 mg/0.5 mL pen injector Vraylar 1.5 mg capsule Allergies Allergen Reactions Penicillins Hives Sulfasalazine Hives and Rash Oxycodone-Acetaminophen Diarrhea, Nausea Only and Vomiting Sulfa (Sulfonamide Antibiotics) Eye irritation Sulfanilamide Other (See comments) Reaction: Conjunctivitis, Review of Systems Constitutional: Negative for appetite change, chills, fatigue, fever and unexpected weight change. HENT: Negative for dental problem, ear pain, hearing loss, sore throat, trouble swallowing and voice change. Eyes: Negative for pain and visual disturbance. Respiratory: Negative for cough, shortness of breath and wheezing. Cardiovascular: Negative for chest pain, palpitations and leg swelling. Gastrointestinal: Negative for abdominal pain, constipation, diarrhea, nausea and vomiting. Endocrine: Negative for cold intolerance, heat intolerance, polydipsia and polyuria. Genitourinary: Negative for difficulty urinating, dysuria and urgency. Musculoskeletal: Negative for back pain, gait problem, joint swelling, myalgias, neck pain and neckstiffness. Skin: Negative for rash and wound. Allergic/Immunologic: Negative for environmental allergies and food allergies. Neurological: Negative for dizziness, tremors, seizures, speech difficulty, weakness, light-headedness, numbness and headaches. Hematological: Negative for adenopathy. Does not bruise/bleed easily. Psychiatric/Behavioral: Negative for behavioral problems, confusion, dysphoric mood and sleep disturbance. The patient is not nervous/anxious. Vitals: 04/06/23 1437 BP: 125/70 BP Location: Right arm Patient Position: Sitting Pulse: 83 Resp: 16 Weight: 117 kg (258 lb) Height: 167.6 cm (5' 6 ) Physical Exam Constitutional: Appearance: She is obese. HENT: Head: Normocephalic and atraumatic. Eyes: Conjunctiva/sclera: Conjunctivae normal. Neck: Thyroid: No thyromegaly. Cardiovascular: Rate and Rhythm: Normal rate and regular rhythm. Pulses: Dorsalis pedis pulses are 2+ on the right side and 2+ on the left side. Posterior tibial pulses are 2+ on the right side and 2+ on the left side. Heart sounds: Normal heart sounds. Pulmonary: Effort: Pulmonary effort is normal. Breath sounds: Normal breath sounds. Abdominal: General: Bowel sounds are normal. Palpations: Abdomen is soft. There is no mass. Tenderness: There is no abdominal tenderness. Musculoskeletal: General: No tenderness. Cervical back: Neck supple. Right lower leg: No edema. Left lower leg: No edema. Right foot: No deformity. Left foot: No deformity. Feet: Right Foot: Monofilament exam: normal. Protective Sensation: 10 sites tested. 10 sites sensed. Skin Integrity: Negative for ulcer. Left Foot: Monofilament exam: normal. Protective Sensation: 10 sites tested. 10 sites sensed. Skin Integrity: Negative for ulcer. Skin: General: Skin is warm and dry. Neurological: Mental Status: She is alert and oriented to person, place, and time. Deep Tendon Reflexes: Reflexes are normal and symmetric. Psychiatric: Thought Content: Thought content normal. Judgment: Judgment normal. Labs: Chemistry Component Value Date/Time SODIUM 137 06/30/2019 1150 SODIUM 138 06/30/2019 1150 POTASSIUM 3.9 06/30/2019 1150 POTASSIUM 3.8 06/30/2019 1150 CHLORIDE 100 06/30/2019 1150 CHLORIDE 100 06/30/2019 1150 CO2 27 06/30/2019 1150 CO2 27 06/30/2019 1150 BUNSER 9 06/30/2019 1150 BUNSER 9 06/30/2019 1150 CREATININE 1.01 06/30/2019 1150 CREATININE 1.00 06/30/2019 1150 GLUCOSE 93 06/30/2019 1150 GLUCOSE 93 06/30/2019 1150 Component Value Date/Time CALCIUM 9.5 06/30/2019 1150 CALCIUM 9.5 06/30/2019 1150 ALKPHOS 84 06/30/2019 1150 ALKPHOS 82 06/30/2019 1150 AST 26 06/30/2019 1150 AST 26 06/30/2019 1150 ALT 31 06/30/2019 1150 ALT 31 06/30/2019 1150 BILITOT 0.8 06/30/2019 1150 BILITOT 0.8 06/30/2019 1150 Lab Results Component Value Date HGBA1C 5.4 05/01/2014 Lab Results Component Value Date TSH 1.02 06/30/2019 No results found for: MICROALBUR , [id number] Lab Results Component Value Date CHOL 146 06/30/2019 CHOL 180 05/01/2014 Lab Results Component Value Date HDL 36 (L) 06/30/2019 HDL 38 (L) 05/01/2014 Lab Results Component Value Date LDLCALC 70 06/30/2019 Lab Results Component Value Date TRIG 202 (H) 06/30/2019 TRIG 307 (H) 05/01/2014 Lab Results Component Value Date CHOLHDL 4 06/30/2019 Assessment/Plan Diagnoses and all orders for this visit: Polycystic ovarian syndrome (Primary) Assessment & Plan: Counseled patient on diet and exercise Advised patient to stop added sugars, cutback on processed foods Include whole grain, fruits and vegetables, greens, lean, organic fashion chicken Cutback on red meat and processed meat Avoid animal daily products. Advised to include albumin milk. Okay to include Bruneian yogurt Advise to look into intermittent fasting. Continue endurance and weight training Orders: - tirzepatide (Mounjaro) 5 mg/0.5 mL pen injector; Inject 5 mg under the skin every 7 days - Comprehensive metabolic panel; Future - Lipid panel; Future - Hemoglobin A1c; Future - TSH reflex to free T4; Future Prediabetes Assessment & Plan: Counseled on diet and exercise Switch Ozempic to mounjaro 5 mg subQ weekly for 4 weeks then increase 5 mg SQ weekly Orders: - tirzepatide (Mounjaro) 5 mg/0.5 mL pen injector; Inject 5 mg under the skin every 7 days - Comprehensive metabolic panel; Future - Lipid panel; Future - Hemoglobin A1c; Future - TSH reflex to free T4; Future Vitamin D deficiency Assessment & Plan: Check levels and further plans based on it Orders: - Vitamin D 25 hydroxy; Future Morbid obesity with BMI of 40.0-44.9, adult ([facility]) Assessment & Plan: Counseled on diet and exercise as above Advised to work on sleep and stress management Bryn Sharpe MD NCIAL ANALYSIS MANAGER documented in this encounter Miscellaneous Notes * Assessment & Plan Note - Bryn Peterson MD - 04/06/2023 4:26 PM CSTAssociated Problem(s): Class 2 severe obesity due to excess calories with serious comorbidity and body mass index (BMI) of 36.0 to 36.9 in adult ([facility]) Counseled on diet and exercise as above Advised to work on sleep and stress management NCIAL ANALYSIS MANAGER * Assessment & Plan Note - Bryn Peterson MD - 04/06/2023 4:26 PM CSTAssociated Problem(s): Vitamin D deficiency Check levels and further plans based on it NCIAL ANALYSIS MANAGER * Assessment & Plan Note - Bryn Peterson MD - 04/06/2023 4:26 PM CSTAssociated Problem(s): Prediabetes Counseled on diet and exercise Switch Ozempic to mounjaro 5 mg subQ weekly for 4 weeks then increase 5 mg SQ weekly NCIAL ANALYSIS MANAGER * Assessment & Plan Note - Bryn Peterson MD - 04/06/2023 4:26 PM CSTAssociated Problem(s): Polycystic ovarian syndrome Counseled patient on diet and exercise Advised patient to stop added sugars, cutback on processed foods Include whole grain, fruits and vegetables, greens, lean, organic fashion chicken Cutback on red meat and processed meat Avoid animal daily products. Advised to include albumin milk. Okay to include Bruneian yogurt Advise to look into intermittent fasting. Continue endurance and weight training NCIAL ANALYSIS MANAGER documented in this encounter Plan of Treatment Not on file documented as of this encounter Results * TSH reflex to free T4 (04/06/2023 3:38 PM FINANCIAL ANALYSIS MANAGER) Pathologist [facility] TSH 0.76 0.30 - 4.20 mcIUnit/mL [facility] Blood 04/06/2023 3:38 PM FINANCIAL ANALYSIS MANAGER 04/06/2023 5:40 PM FINANCIAL ANALYSIS MANAGER Bryn Sharpe MD LAB BLOOD ORDERABLE S Final Result Performing Organization Address [facility] Co de Phone Number LILIAN [address] [place] [address] * Vitamin D 25 hydroxy (04/06/2023 3:38 PM FINANCIAL ANALYSIS MANAGER) Pathologist [facility] Vitamin D 25-OH 34 30 - 80 ng/mL [facility] Blood 04/06/2023 3:38 PM FINANCIAL ANALYSIS MANAGER 04/06/2023 5:40 PM FINANCIAL ANALYSIS MANAGER Bryn Sharpe MD LAB BLOOD ORDERABLE S Final Result Performing Organization Address [facility] Co de Phone Number [facility] [address] [place] [address] * Hemoglobin A1c (04/06/2023 3:38 PM FINANCIAL ANALYSIS MANAGER) Pathologist [facility] Hgb A1C 5.3 4.0 - 5.6 % LILIAN Estimated Average Glucose 105 mg/dL LILIAN Comment: The ADA recommends reporting an estimated Average Glucose (eAG) with all Hemoglobin A1c results using the equation derived from a study of 507 normal and diabetic adults. ??Minority populations were underrepresented and children were not included. ?? (Diabetes Care 31:3708-1850, 2008). ??The eAG is not equivalent to a fasting glucose. Blood 04/06/2023 3:38 PM FINANCIAL ANALYSIS MANAGER 04/06/2023 5:40 PM FINANCIAL ANALYSIS MANAGER us Bryn Sharpe MD LAB BLOOD ORDERABLE S Final Result LILIAN [address] [facility] [place] [address] * (ABNORMAL) Lipid panel (04/06/2023 3:38 PM FINANCIAL ANALYSIS MANAGER) Cholesterol 175 30 - 199 mg/dL LILIAN [...] revised on 2017. Non-HDL Cholesterol 143 mg/dL [facility] Comment: Interpretive Data Ages < or = [...] last revised on 2017. Chol/HDL ratio 5 [facility] Blood 04/06/2023 3:38 PM FINANCIAL ANALYSIS MANAGER 04/06/2023 5:40 PM FINANCIAL ANALYSIS MANAGER us [facility] Dell Sharpe MD LAB BLOOD ORDERABLE S Final Result [facility] [address] [place] [address] * (ABNORMAL) Comprehensive metabolic panel (04/06/2023 3:38 PM FINANCIAL ANALYSIS MANAGER) Sodium 137 135 - 145 mmol/L [facility]ER [...] Units/L [facility] Blood 04/06/2023 3:38 PM FINANCIAL ANALYSIS MANAGER 04/06/2023 5:40 PM FINANCIAL ANALYSIS MANAGER [facility] Dell Sharpe MD LAB BLOOD ORDERABLE S Final Result [facility] [address] [place] [address] documented in this encounter Visit Diagnoses Diagnosis Polycystic ovarian syndrome- Primary Polycystic ovaries Prediabetes Other abnormal glucose Vitamin D deficiency Morbid obesity with BMI of 40.0-44.9, adult (HCC) documented in this encounter Discontinued Medications Medication Sig Discontinue Reason Start Date End Da te Ozempic 1 mg/dose (4 mg/3 mL) pen injector injectionIndications:pre diabetic 1 mg once a week Takes on Wednesday03/06/2021 04/06/2023 documented as of this encounter Historical Medications * This list may reflect changes made after this encounter. Vraylar 1.5 mg capsule TAKE 1 CAPSULE BY MOUTH EVERY DAY FOR 90 DAYS added in this encounter Care Teams Section Weaver Relationship Specialty Start Date End Date Martha Lawrence MD [facility] [address] PCP - General 02/24/19 Zoran Willams Family Medicine 05/18/18 documented as of this encounter
--- OUTSIDE RECORDS SUMMARY | 2024-05-13 22:22 | XMS_ITS | Encounter Summary ---
Author Organization [facility] Address [address] [place] [address] Phone Care Team Providers Care Sr Community Manager Name Role Phone Zoran Willams Unavailable Unavailable Martha Lawrence MD Primary Care Provider +1- [phone] Encounter Details Date Type Department Care Team (Late st Contact Info) Description 05/23/2021 11:30 AM ASSOCIATE ACCOUNT DIRECTOR Telemedicine [facility] Surgery [address] [facility] 5th [place] [address] [place] [phone] Meggan Martinez MD [facility] [id number] Nipple discharge in female (Primary Dx) Social [...] on file Legal Sex Female 10:37 AM ASSOCIATE ACCOUNT DIRECTOR Gender Identity Not on file Sexual Orientation Not on file documented as of this encounter Progress Notes * Meggan Martinez MD - 05/23/2021 11:30 AM CST Meggan Martinez M.D., [facility] ?? Department of Surgery [address] ?? [place] [address] ? 05/23/21 This was a telemedicine visit with Cesario Jewell alone which took place via Telephone. During the visit, I was located in the office and the patient was located at home in the [facility]. Thepatient visit started at 11:27AM and ended at 11:31AM. My total encounter time on 05/23/2021 was 7 minutes which was spent in the activities documented in the note. This includes time spent prior to the visit and after the visit in direct care of the patient. This time does not include time spent inany separately reportable services.. The patient has been informed that the visit may not be secure and acknowledged the information. I have explained the option of participating in a telephone or video visit during the [facility]- public [facility] emergency to the patient. After being given an opportunity to ask questions about and discuss this type of visit, the patient verbally consented to proceeding with the telephone/video visit.The patient understands that this service replaces an office visit and they may be billed and/or responsible for any applicable copayments. CHIEF COMPLAINT: Post-operative visit. ?? HISTORY OF PRESENT ILLNESS: Cesario Jewell is a 41 y.o. woman who presented to my office for evaluation of her right nipple discharge. She had previously undergone a right duct excision which was benign and a left central duct excision which revealed papilloma. She began noticing spontaneous discharge from the right nipple once again which was similar to a previous discharge. Her clinical examination did reveal pathologic discharge from a central duct in the right nipple. Imaging revealed an intraductal mass. In light of her previous history, I offered her a central duct excision. [...] pathology with her today as well. The right central duct excision revealed intraductal papilloma without any atypia or malignancy. ?? IMPRESSION/RECOMMENDATION: Cesario Jewell is a 41 y.o. woman who is now status- post right central duct excision for an intraductal papilloma. She has also previously undergone a right ductal excisionfor papilloma in the past and a left central duct excision for papilloma more recently. I reviewed the pathology with her today and explained that it is completely benign and that it does not increase her future risk for the development of breast cancer. She was quite pleased, as would be expected.I encouraged her to simply resume her monthly self examinations and to alert her physician of any changes. I also recommended that she resume yearly screening mammograms. I answered all of her and her family's questions thoroughly, and they do seem pleased with this plan of approach. I encouraged her to contact me in the future if any new questions or concerns arise. ? Meggan Martinez MD CIATE ACCOUNT DIRECTOR documented in this encounter Plan of Treatment Not on file documented as of this encounter Visit Diagnoses Diagnosis Nipple discharge in female- Primary documented in this encounter Care Teams Sr Community Manager Relationship Specialty Start Date End Date Martha Lawrence MD [address] [place] [id number] PCP - General 02/24/19 Zoran Willams Family Medicine 05/18/18 documented as of this encounter
--- OUTSIDE RECORDS SUMMARY | 2024-05-13 22:22 | XMS_ITS | Encounter Summary ---
Author Organization [facility] Address [address] [place] [address] Phone Care Team Providers Care Assistant Child Care Teacher Name Role Phone Zoran Willams Unavailable Unavailable Martha Lawrence MD Primary Care Provider +1- [phone] Encounter Details Date Type Department Care Team (Late st Contact Info) Description 03/19/2020 Telephone [facility] Ophthalmology [facility] 6th Floor, [address] [facility] [place] [address] No, Physician Social History Tobacco Use Types Packs/Day Years Used Date Smoking Tobacco: Never Smokeless Tobacco: Never Alcohol Use Standard Drinks/Week Comments No 0 (1 standard drink = 0.6 oz pur e alcohol) Comments No Sex and Gender Information Value Date Recorded Sex Assigned at Not on file Legal Sex Female 10:37 AM TRAVEL AGENT Gender Identity Not on file Sexual Orientation Not on file documented as of this encounter Miscellaneous Notes * Telephone Encounter - Mitesh Dixon COA - 03/19/2020 9:46 AM CST Pt called to state that she would like to schedule a 2nd opinion appt for blurry vision. Pt was seen by her slag dumper and couldn't find anything wrong with her. I offered her an OD. Next available. She stated she would call back. EL AGENT documented in this encounter Plan of Treatment Not on file documented as of this encounter Visit Diagnoses Not on filedocumented in this encounter Care Teams Assistant Child Care Teacher Relationship Specialty Start Date End Date Martha Lawrence MD [address] [employer] [employer] [place] [address] PCP - General 02/24/19 Zoran Willams Family Medicine 05/18/18 documented as of this encounter
--- OUTSIDE RECORDS SUMMARY | 2024-05-13 22:22 | XMS_ITS | Encounter Summary ---
Author Organization [facility] Address [address] [place] [address] Phone Care Team Providers Care Splunk Developer Name Role Phone Zoran Willams Unavailable Unavailable Martha Lawrence MD Primary Care Provider [phone]- [phone] Encounter Details Date Type Department Care Team (Late st Contact Info) Description 02/17/2020 Ophth Exam [facility] Ophthalmology [address] [place] [address] 1st [place] [id number] Juan Mcdaniel MD [address] [facility] [address] [place], [place] [id number] Social History Tobacco Use Types Packs/Day Years Used Date Smoking Tobacco: Never Smokeless Tobacco: Never Alcohol Use Standard Drinks/Week Comments No 0 (1 standard drink = 0.6 oz pur e alcohol) Comments No Sex and Gender Information Value Date Recorded Sex Assigned at Not on file Legal Sex Female 10:37 AM SCIENCE MANAGER Gender Identity Not on file Sexual Orientation Not on file documented as of this encounter Plan of Treatment Not on file documented as of this encounter Visit Diagnoses Not on filedocumented in this encounter Eye Exam Visual Acuity Right eye Left eye Near sc 20/25+ PH 20/20 IOL set for Near; Slower, had to move card closer and further to get [facility] Tonometry #1 (Tonopen, 5:48 PM) Right eye Left eye Pressure 51 Tonometry #2 (Tonopen, 5:48 PM) Right eye Left eye Pressure 47 Tonometry #3 (Tonopen, 5:48 PM) Right eye Left eye Pressure 47 Tonometry #4 (Tonopen, 6:53 PM) Right eye Left eye Pressure 26 Tonometry #5 (Tonopen, 6:53 PM) Right eye Left eye Pressure 27 Tonometry Comments All IOPs 95% CI w/o squeezing; T4/T5 s/p 3 rounds Cosopt/Brim and dilation Gonioscopy Right eye Left eye Temporal Grade 3 Nasal Grade 3 Superior Grade 3 Inferior Grade 3 Difficult view temporally but appears gr3 Pupils Dark Light Shape React Right eye 3 2.5 Round Brisk Left eye Visual Bay (Counting fingers) Right eye Left eye Full No central scotoma to facial recognition Extraocular Movement Right eye Left eye Up gaze 0 0 0 -- -- -- Right/left gaze 0 -- 0 -- -- -- Down gaze 0 0 0 -- -- -- Poor movement of prothesis OS Dilation Both eyes: 2.5% Phenylephrin e, 1.0% Mydriacyl @ 5:48 PM B-scan with significant syneresis OD but no clear RD External Exam Right eye Left eye External Normal prothesis Slit Lamp Exam Right eye Left eye Lids/Lashes Normal Conjunctiva/Sclera White and quiet Cornea Clear Anterior Chamber Deep and quiet Iris Round and reactive, poor dilatio n Lens PCIOL s/p YAG cap Vitreous Vitreous syneresis Fundus Exam Right eye Left eye Disc Normal, sharp margins, no pallor C/D Ratio 0.35 Macula Normal, flat, no heme Vessels Normal Difficult view of periphery with poor dilation, small YAG Care Teams Splunk Developer Relationship Specialty Start Date End Date Martha Lawrence MD [address] [place] [address] PCP - General 02/24/19 Zoran Willams Family Medicine 05/18/18 documented as of this encounter
--- OUTSIDE RECORDS SUMMARY | 2024-05-13 22:22 | XMS_ITS | Encounter Summary ---
Author Organization [facility] Address [address] [facility] [address] [place] [address] Care Team Providers Care Audio Video Tech Name Role Phone Zoran Willams Unavailable Unavailable Martha Lawrence MD Primary Care Provider +1- [phone] Reason for Visit * Reason Comments COVID-19 EVALUATION Pre-op swab Encounter Details Date Type Department Care Team (Late st Contact Info) Description 05/16/2021 8:45 AM ASSEMBLER CONVERTIBLE TOP Clinical Support [facility] at [address] [place] [address] Pre-op testing Social History Tobacco Use Types Packs/Day Years Used Date Smoking Tobacco: Never Smokeless Tobacco: Never Alcohol Use Standard Drinks/Week Comments No 0 (1 standard drink = 0.6 oz pur e alcohol) AUDIT-C Answer Date Recorded Q1: How often do you have a drink containing alc ohol? Monthly or less 05/08/2021 Q2: How many drinks containi ng alcohol do you have on a typical day when you are drinking? 1 or 2 05/08/2021 Q3: How often do you have si x or more drinks on one occasion? Never 05/08/2021 Comments No Sex and Gender Information Value Date Recorded Sex Assigned at Not on file Legal Sex Female 10:37 AM ASSEMBLER CONVERTIBLE TOP Gender Identity Not on file Sexual Orientation Not on file documented as of this encounter Progress Notes * Gerri Tobin MA - 05/16/2021 8:45 AM CST Patient presents today for pre procedure COVID-19 test. Scheduled for a procedure on 05/19/21. N95 mask, gown, gloves, and eye protection worn during swab collection. Patient instructed to self-isolate from time of swab collection until scheduled surgery. MBLER CONVERTIBLE TOP documented in this encounter Plan of Treatment Not on file documented as of this encounter Visit Diagnoses Diagnosis Pre-op testing Unspecified pre-operative examination documented in this encounter Care Teams Audio Video Tech Relationship Specialty Start Date End Date Martha Lawrence MD [employer] [facility] [place] [address] PCP - General 02/24/19 Zoran Willams Family Medicine 05/18/18 documented as of this encounter
--- OUTSIDE RECORDS SUMMARY | 2024-05-13 22:22 | XMS_ITS | Encounter Summary ---
Author Organization [facility] Address [address] [place] [address] Care Team Providers Care Director Of Dance Name Role Phone Zoran Willams Unavailable Unavailable Martha Lawrence MD Primary Care Provider +1- [phone] Encounter Details Date Type Department Care Team (Latest Contact Info) Description 05/19/2021 8:51 AM PULL TAB DEALER - 05/19/2021 11:57 AM PULL TAB DEALER Hospital Encounter [facility] Operating Room [facility] [address] [place] [address] Meggan Martinez MD [address] [place] [address] Nipple discharge Discharge Disposition: Discharge to home or self [...] on file Legal Sex Female 10:37 AM PULL TAB DEALER Gender Identity Not on file Sexual Orientation Not on file documented as of this encounter Last Filed Vital Signs Vital Sign Reading Time Taken Comments Blood Pressure 110/77 05/19/2021 11:40 AM PULL TAB DEALER Pulse 84 05/19/2021 11:45 AM PULL TAB DEALER Temperature 36.2 ??C (97.2 ??F) 05/19/2021 11:[address] Respiratory Rate 14 05/19/2021 11:45 AM PULL TAB DEALER Oxygen Saturation 100% 05/19/2021 11:45 AM PULL TAB DEALER Inhaled Oxygen Concentration - - Weight 108.9 kg (240 lb) 05/19/2021 9:25 AM PULL TAB DEALER Height 167.6 cm (5' 6 ) 05/19/2021 9:25 AM PULL TAB DEALER Body Mass Index 38.74 05/19/2021 9:25 AM PULL TAB DEALER documented in this encounter Discharge Diagnoses Diagnosis Benign neoplasm of right breast - BENIGN NEOPLASM OF RIGHT BREAST Diffuse cystic mastopathy of right breast - DIFFUSE CYSTIC MASTOPATHY OF RIGHT BREAST Nipple discharge - NIPPLE DISCHARGE Other sign and symptom in breast Essential (primary) hypertension - ESSENTIAL (PRIMARY) HYPERTENSION Unspecified essential hypertension Morbid (severe) obesity due to excess calories (HCC) - MORBID (SEVERE) OBESITY DUE TO EXCESS CALORIES Body mass index (BMI) 38.0-38.9, adult - BODY MASS INDEX [BMI] 38.0-38.9, ADULT Depression, unspecified - DEPRESSION, UNSPECIFIED Polycystic ovarian syndrome - POLYCYSTIC OVARIAN SYNDROME Polycystic ovaries Other snf (current) drug therapy - OTHER REVERSE UNIT OPERATOR (CURRENT) DRUG THERAPY Allergy status to penicillin - ALLERGY STATUS TO PENICILLIN Allergy status to sulfonamides - ALLERGY STATUS TO SULFONAMIDES Allergy status to other drugs, medicaments and biological substances - ALLERGY STATUS TO OTHER DRUGS, MEDICAMENTS AND BIOLOGICAL SUBSTANCES 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 ?? 2017 [employer] Information is for End User's use only and may not be sold, redistributed or otherwise used for commercial purposes. All illustrations and images included in CareNotes?? are the copyrighted property of [employer] or [employer]. The above information is an blind aide only. It is not intended as medical advice for individual conditions or treatments. Talk to your doctor, nurse or pharmacist before following any medical regimen to see if it is safe and effective for you. TAB DEALER * Attachments The following attachments cannot be sent through Care Everywhere. * [facility] PATHWAY TO EXCELLENT CARE AFTER SURGERY [...] risk for : Procedure(s): EXCISION BREAST DUCT TAB DEALER Source Note - Yazmin Carbajal NP - 05/13/2021 4:02 PM PULL TAB DEALER Images from the original note were not included. [facility] for Preoperative Assessment and Planning Preoperative Evaluation Record Evaluation type/location: TPAP from [facility] Planned procedure site: [facility] CAM OR (Pod 4) Date: 05/13/21 [...] BP - 80 Pertinent negatives: CAD ; PR ; CABG ; valvular heart disease; atrial [...] Patient instructions were provided electronically sent via [employer]. Patient verbalized understanding of preoperative plan. Blood [...] COVID19 testing to be performed on 05/16. [facility] will place the order for [...] OTHER MEDICAL Menorrhagia ??? HX OTHER MEDICAL [place] teeth extraction 12/18 ??? HX OTHER MEDICAL 01-mat machine tender ??? HX OTHER MEDICAL right lens implant [...] myringotomy tubes: 1989 ??? 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 HISTORY 01-mat machine tender: [facility] ??? 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 HISTORY right lens implant -2011: Dr Barrios - [facility] ??? 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 HISTORY 2019 breast bx R - benign ??? 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 HISTORY milk duct [facility] right breast ; [facility] 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 HISTORY left eye removed 02-09-, prosthetic: Dr Fidel Hsu - [facility] ??? 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 HISTORY 1982 retinal reattachment ??? 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 HISTORY Left 2012 eye removal ??? 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 HISTORY 2011 milk duct removal ??? TONSILLECTOMY AND ADENOIDECTOMY 2016 ??? TYMPANOSTOMY TUBE PLACEMENT 1993 tubes in [...] HFA,PROAIR HFA) 90 mcg/actuation inhaler 01-08-2021 01/20/19 --Provider, MD Babita ALPRAZolam (XANAX) 0.5 mg tablet Past Week 04/07/21 -- Provider, MD Babita buPROPion XL (WELLBUTRIN XL) 150 mg 24 hr tablet 05/08/2021 -- -- ProviderBabita MD cholecalciferol (VITAMIN D-3) 5,000 unit tablet [...] (BYSTOLIC) 5 mg tablet 05/08/2021 04/10/21 -- Babita Anthony MD Ozempic 1 mg/dose (4 mg/3 mL) pen injector injection Past Week 03/06/21 -- Babita Anthony MD spironolactone (ALDACTONE) 100 mg tablet 05/08/2021 -- -- Babita Anthony MD traZODone (DESYREL) 150 mg tablet 05/07/2021 -- -- Babita Anthony MD No current facility-administered medications for this encounter. [...] last 720 hours. Pia index score: 100 TAB DEALER documented in this encounter Miscellaneous Notes * Brief Op Note - Ivy Julio MD - 05/19/2021 10:31 AM CST Operative Progress Note Surgical Team: Surgeon(s) and Role: * Meggan Martinez MD - Primary * Ivy Julio MD - Resident - Assisting Anesthesiologist: Ilia Cohen MD MOLDER BENCH: Geri Morris CRNA Film Developer: Gladis Augustine RN Scrub: Wyatt Cooper Ea, RN FLOAT: Denise Funk RN DATE OF SURGERY : [...] Breast, excisional biopsy/ partial mastectomy SURGICAL PATHOLOGY eMggan Martinez MD 05/19/2021 1037 Implants: Nothing was implanted during the procedure Blood/Blood Products Transfused: 0 mls Complications: None Condition on Discharge from the operating room was stable Ivy Julio MD Date: 05/19/2021 Time: 3:35 PM TEACHING ATTESTATION : I was present and directly participated in the entire procedure (including opening and closing). Cosigned by Meggan Martinez MD at 05/19/2021 3:41 PM PULL TAB DEALER TAB DEALER TAB DEALER * Op Note - Meggan Martinez MD - 05/19/2021 10:30 AM CST 05/19/21 ?? ATTENDING SURGEON Meggan Martinez M.D. ?? FIRST WHOLESALE BUYER Ivy Julio MD ?? ANESTHESIA Monitored anesthesia [...] was immediately available for that non-critical portion. TAB DEALER * Pre-Procedure Instructions - Yazmin Carbajal NP - 05/13/2021 3:55 PM CST Center for Preoperative Assessment and Planning CPAP Clinic Location: [facility] The night before your surgery: * [...] of surgery. * If having surgery at [facility], you may want to bring a credit card if you want to use our Mobile Pharmacy for your discharge medications. Mobile pharmacy is not available at [facility], the [facility], or the [place] [facility]. Outpatient Surgery: * You must have a [...] bowel prep or special diet before surgery TAB DEALER * Pre-Procedure Instructions - Pilar Estrella RN [...] your insurance card, a photo ID (example: Medical Lab Director's License) and a method of payment for [...] Remove nail coverings, artificial nails and nail bermudian. The Morning of Surgery: Take a shower [...] vaccinated and COVID vaccination information verified through [facility] Immunization Registry Database. COVID Test Plan: COVID Test Request Placed in Epic to [facility]. HOLIDAY hours may vary at testing site. Test chelita performed on 05-16-[address] [address], M-F8a-5:30p, Sat/Sun 8a-5:30p. If you are going to a [facility] Testing Site for COVID testing, please arriveat least 30 minutes PRIOR to lab closing time. If you have COVID testing or should have COVID testing for your surgery/procedure, please read below section: If you need to reschedule your COVID test to a different location or if your surgery gets rescheduled, you MUST call [phone] Wednesday-Wednesday 8am-4:30pm to get your COVID testing rescheduled or your lab order will not be available at Testing Sites. COVID Testing is only valid for up to 96 hours prior to surgery date, unless otherwise specified. If you are unable to reach staff at the above phone number, please call the CPAP Staff at [phone]. This number cannot order a lab test, [...] least 20 seconds. Use an alcohol-based hand broiler manager that contains at least 60% alcohol if [...] for the most updated information. Information on [facility]: Please view [email or web address] (Patient & Visitor Information) for additional details regarding Advanced Directive forms, AWARE, directions, parking information, lodging, Internet access, dining and more. Information on [facility]: Please view [email or web address] (Patient and Visitor Information) for parking/directions and more. For MyChart information, to activate account or password recovery, please go to [email or web address] or call [phone] (toll-free: [phone]). Information for Suicide Prevention: National Suicide Prevention Lifeline (4-346- 141-YSQL (3424)). Surgery Times: For patients having surgery @ [facility] or [facility], if your surgeon's office has not notified you of your surgery time by NOON THE BUSINESS DAY BEFORE your surgery, please call [phone] and ask for your surgeon'soffice. TAB DEALER * Perioperative Nursing Note - Pilar Estrella, SANJANA - 05/08/2021 8:50 AM CST Center for Preoperative Assessment and Planning Perioperative Nursing Note Telephone Preoperative Evaluation ([facility]) - TELEPHONE ONLY, NO PHYSICAL EXAM Date: [...] Directive: Patient does not have advance directive Communication/Speech Language Pathologist Assistant Needs Communication Needs: Glasses Assistive Devices/DME: Eyeglasses [...] in a congregate living facility (ex. assisted living/retirement facility, retirement, longterm)?: No Have you tested positive for COVID-19 [...] 20 seconds. Use an alcohol- based hand broiler manager that contains at least 60% alcohol if soap and water are not available. ADDITIONAL COMMENTS/ FOLLOW UP TAB DEALER documented in this encounter Plan of Treatment Not on file documented as of this encounter Procedures Procedure Name Priority Date/Time Associated Diagnosis Comments SURGICAL PATHOLOGY Routine 05/19/2021 10:37 AM PULL TAB DEALER Nipple discharge EXCISION BREAST DUCT 05/19/2021 10:15 AM PULL TAB DEALER Nipple discharge Case Notes 04/01: case moved from 04/21 to 05/19 per Carol Ann. SARAH Special Needs Arm Rest POCT HCG, URINE Routine 05/19/2021 9:41 AM PULL TAB DEALER documented in this encounter Results * Surgical pathology (05/19/2021 10:37 AM PULL TAB DEALER) Tissue (Breast, excisional biopsy/ partial mastectomy) 05/19/2021 10:37 AM PULL TAB DEALER Narrative PATHOLOGY [facility] - 05/21/2021 12:35 PM PULL TAB DEALER EPIC results best viewed via link to PDF [facility] [place] [address] Note to Patients: This report may contain [...] SURGICAL PATHOLOGY REPORT FINAL Patient Name: ?? CESARIO HASSAN V. Gender: ??F : ??1980 (Age: 41) Address: ??[address] [place], [place] ??[address] Hospital #: ??[id number] Taken:05/19/2021 Received:05/19/2021 Reported: 05/21/2021 Patient Type: [facility] SDS ?? Service: Surgery Location: [facility] Physician(s): ??Meggan Martinez M.D. Ivy Julio M.D. [...] total formalin fixation time is 34.5 hours. mr/05/20/2021 09:31 PA(s): Jacinta Cabrera, MS, PA ([facility]) By this signature, I attest that the above diagnosis is based upon my personal examination of the slides(and/or other material). Addenda/Procedures The performance characteristics of some immunohistochemical stains, fluorescence in-situ hybridization tests and immunophenotyping by flow cytometry cited in this report (if any) were determined by the Surgical Pathology and Flow Cytometry Departments at [facility] as part of an ongoing quality compliance coordinator program and in compliance with federally mandated [...] Surgical Pathology and Flow Cytometry Departments of [facility]. ??It has not been cleared or approved by the U. S. Food and Drug Administration. IMAGES AND SCANNED DOCUMENTS, IF INCLUDED, ONLY VIEWABLE IN PDF VERSION OF REPORT us Meggan Martinez MD LAB PATHOLOGY ORDERABLE S Final Result PATHOLOGY [facility] 3rd Floor [place], [place] [phone] * POCT hCG, urine (05/19/2021 9:41 AM PULL TAB DEALER) HCG, ur, POC Negative Lot Number [id number] QC Backgroud Clear Acceptable QC Control Line Acceptable Urine 05/19/2021 9:41 AM PULL TAB DEALER Meggan Martinez MD POINT OF CARE TEST [...] MAR Action Action Date Dose Rate Site Lactated Ringer's (LR) infusion 30 mL/hr, intravenous, Continuous, Starting on 05/19/21 at 0945, Pre-Op Rate/Dose Verify 05/19/2021 10:12 AM PULL TAB DEALER 30 mL/hr New Bag 05/19/2021 9:27 AM PULL TAB DEALER 30 mL/hr 30 mL/hr documented in this encounter Discontinued Medications Medication Sig Discontinue Reason Start Date End Da te latanoprost (XALATAN) 0.005 % ophthalmic solution latanoprost 0.005 % eye drops INSTILL 1 DROP INTO RIGHT EYE AT BEDTIME 03/05/2018 05/08/2021 [id number] AMETHasone (MAXITROL) 3.5mg/mL-10,000 unit/mL-0.1 % ophthalmic suspension [...] Recently Administered Medications Times are shown in PULL TAB DEALER. Scheduled Medication Order 05/17/2021 05/18/2021 05/19/2021 ceFAZolin [...] Count Last Ordered Date First Ordered Date bupivacaine (MARCAINE) 0.5 % (5 mg/mL) preservative free injection 1 05/19/2021 ceFAZolin (ANCEF) 2,000 mg/2 0 mL in sterile water (premix) 2,000 mg 1 05/19/2021 lidocaine PF (XYLOCAINE) 10 mg/mL (1 %) preservative free injection 2-10 mg 1 05/19/2021 sodium chloride 0.9% flush 0.5-20 mL 1 05/10 sodium chloride 0.9% irrigation 1 Diet Count Last Ordered Date First Orde red Date ADULT DISCHARGE DIET 1 05/19/2021 Nursing Count Last Ordered Date First Orde red Date DISCHARGE ACTIVITY 3 05/19/2021 DISCHARGE CALL PROVIDER 5 05/19/2021 DISCHARGE DRESSING 6 05/19/2021 documented in this encounter Care Teams Director Of Dance Relationship Specialty Start Date End Date Martha Lawrence MD [address] [place] [address] PCP - General 02/24/19 Zoran Willams Family Medicine 05/18/18 documented as of this encounter
--- OUTSIDE RECORDS SUMMARY | 2024-05-13 22:22 | XMS_ITS | Referral Summary ---
Author Organization [facility] Address [address] [place] [address] Phone Care Team Providers Care Forder Operator Name Role Phone Zoran Willams Unavailable Unavailable Martha Lawrence MD Primary Care Provider [phone] Allergies Active Allergy Reactions Criticality Noted Date Comments Oxycodone-Acetaminophen Diarrhea,Nausea Only,Vomiting Low Penicillins Hives Medium Sulfa (Sulfonamide Antibiotics) Eye irritation Low Sulfanilamide Other (See comments) Low Reaction: Conjunctivitis, Sulfasalazine Hives,Rash Medium Medications cholecalciferol (VITAMIN D-3) 5,000 unit tabletIndicatio ns:Vitamin D Deficiency Take 1 tablet (5,000 Units total) by mouth every morning Active albuterol HFA (PROVENTIL HFA,VENTOLIN HFA,PROAIR HFA) 90 mcg/actuation inhalerIndicati ons:Acute Asthma Attack Inhale 2 puffs every 6 (six) hours as needed 9 Active buPROPion XL (WELLBUTRIN XL) 150 mg 24 hr tabletIndicatio ns:Anxiety with Depression Take 1 tablet (150 mg total) by mouth every morning Active escitalopram (LEXAPRO) 20 mg tabletIndicatio ns:Anxiety with Depression Take 1 tablet (20 mg total) by mouth every morning Active montelukast (SINGULAIR) 10 mg tablet Take 1 tablet (10 mg total) by mouth nightly 0 Active nebivoloL (BYSTOLIC) 5 mg tabletIndicatio ns:hypertension Take 1 tablet (5 mg total) by mouth every morning 1 Active Vraylar 1.5 mg capsule TAKE 1 CAPSULE BY MOUTH EVERY DAY FOR 90 DAYS Active atomoxetine (STRATTERA) 25 mg capsule Take by mouth daily 2 Active latanoprost (XALATAN) 0.005 % ophthalmic solution Administer 1 drop into affected eye(s) nightly 2 Active pancrelipase (Zenpep) 40,000-126,000- 168,000 unit per capsule TAKE 2 CAPSULES WITH MEALS AND 1 CAPSULE WITH SNACKS Active Myfembree 40-1-0.5 mg tablet Take 1 tablet by mouth daily Active tirzepatide (Mounjaro) 5 mg/0.5 mL pen injectorIndicat ions:Polycystic ovarian syndrome,Predia betes Inject 5 mg under the skin once a week 2 mL 5 4 05/08/20 24 Active Problems Problem Noted Date Diagnosed Date Polycystic ovarian syndrome 04/06/2023 Assessment & Plan (11/10/2023 12:19 PM CDT): Counseled patient on diet and exercise Advised patient to stop added sugars, cutback on processed foods Include whole grain, fruits and vegetables, greens, lean, organic fashion chicken Cutback on red meat and processed meat Avoid animal daily products. Advised to include albumin milk. Okay to include Salvadorean yogurt Advise to look into intermittent fasting. Continue endurance and weight training Assessment & Plan (04/06/2023 4:26 PM OUTSIDE PHYSICAL DAMAGE APPRAISER): Counseled patient on diet and exercise Advised patient to stop added sugars, cutback on processed foods Include whole grain, fruits and vegetables, greens, lean, organic fashion chicken Cutback on red meat and processed meat Avoid animal daily products. Advised to include albumin milk. Okay to include Salvadorean yogurt Advise to look into intermittent fasting. Continue endurance and weight training Prediabetes 04/06/2023 Assessment & Plan (11/10/2023 12:19 PM CDT): Counseled on diet and exercise Continue mounjaro 5 mg subQ weekly Assessment & Plan (04/06/2023 4:26 PM OUTSIDE PHYSICAL DAMAGE APPRAISER): Counseled on diet and exercise Switch Ozempic to mounjaro 5 mg subQ weekly for 4 weeks then increase 5 mg SQ weekly Class 2 severe obesity due t o excess calories with serious comorbidity and body mass index (BMI) of 36.0 to 36.9 in adult 04/06/2023 Assessment & Plan (11/10/2023 12:20 PM CDT): Chronic, significant improvement, still above goal Encouraged to keep working on her healthy lifestyle habits Advised to include resistance training exercises Assessment & Plan (04/06/2023 4:26 PM OUTSIDE PHYSICAL DAMAGE APPRAISER): Counseled on diet and exercise as above Advised to work on sleep and stress management Otorrhea of left ear 08/13/2020 Assessment & Plan (08/13/2020 9:23 AM CDT): Avoid ear cleaning techniques Avoid water to ears Ciprofloxacin 7 drops into the left ear twice daily for 10 days Call if no improvement in ear fullness History of intraocular lens implant 02/17/2020 History of eye prosthesis 02/17/2020 Overview (02/17/2020): Left eye Dysfunction of both eustachian tubes 01/18/2020 Assessment & Plan (01/18/2020 10:45 PM CDT): Avoid ear cleaning techniques Avoid water to ears Nasal saline spray (Simply saline, Little Remedies, [place], Waldo) 2 second sprays or 2 squeezes into each nostril while looking down over the sink, do not need to sniff in. Follow up in 6 months, earlier with any ear drainage 07/06/2019 T-tubes placed in Office Nipple discharge in female 12/12/2019 Acute recurrent maxillary sinusitis 05/26/2019 Assessment & Plan (05/26/2019 10:38 AM OUTSIDE PHYSICAL DAMAGE APPRAISER): Take Cefdinir with a meal daily Nasal saline spray (Simply saline, Little Remedies, [place], [place]do) 2 second sprays or 2 squeezes into [...] ETD (Eustachian tube dysfunction), left 05/26/19 20 Assessment & Plan (08/13/2020 9:25 AM CDT): ?? 07/06/2019 T-tubes placed in Office Assessment & Plan (07/21/2019 9:18 AM CDT): Avoid ear cleaning techniques Avoid water to ears Follow up in 6 months, earlier with any ear drainage Assessment & Plan (07/07/2019 3:32 PM OUTSIDE PHYSICAL DAMAGE APPRAISER): Bilateral myringotomy with T-tube placement in Office today Risks and complications discussed including anesthesia, bleeding, infection, hearing loss, ear tubes may fall out early, fall inwards, stay in longer than a few years, get clogged, fall out and leave a hole in the ear drum that would need to be patched, drain clear fluid. Assessment & Plan (05/26/2019 10:38 AM OUTSIDE PHYSICAL DAMAGE APPRAISER): Take Cefdinir with a meal daily Nasal saline spray (Simply saline, Little Remedies, [place], Waldo) 2 second sprays or 2 squeezes into [...] left ear, will consider ear tube placement Hearing loss of left ear 05/26/2019 Assessment & Plan (05/26/2019 10:38 AM OUTSIDE PHYSICAL DAMAGE APPRAISER): Hearing test right before follow up Left ear pain 05/26/2019 Assessment & Plan (05/26/2019 8:08 PM OUTSIDE PHYSICAL DAMAGE APPRAISER): Take Cefdinir with a meal daily Nasal saline spray (Simply saline, Little Remedies, [place], [place]do) 2 second sprays or 2 squeezes into [...] left ear, will consider ear tube placement Trochanteric bursitis, right hip 10/26/2017 Tonsillitis 06/26/2014 Overview (08/14/2016): Tonsillitis Gastroesophageal reflux disease 06/26/2014 Overview (08/14/2016): GERD (gastroesophageal reflux disease) Obstructive sleep apnea syndrome 05/14/2014 Overview (08/14/2016): YEMI Vitamin D deficiency 05/14/2014 Overview (08/14/2016): Vitamin D deficiency Assessment & Plan (04/06/2023 4:26 PM OUTSIDE PHYSICAL DAMAGE APPRAISER): Check levels and further plans based on it 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/23/2013 Overview (08/12/2016): MIXED HYPERLIPIDEMIA Impaired fasting glucose 09/23/2013 Overview (08/13/2016): IMPAIRED FASTING GLUCOSE Benign hypertension 09/23/2013 Overview (08/13/2016): BENIGN HYPERTENSION Depression 09/23/2013 Overview (08/13/2016): DEPRESSIVE DISORDER NEC Anxiety state 09/23/2013 Overview (08/14/2016): ANXIETY STATE NOS Anemia 09/23/2013 Overview (08/14/2016): ANEMIA NOS Glaucoma 05/12/2013 Overview (08/13/2016): Glaucoma Iron deficiency anemia 02/18/2012 Overview (08/13/2016): Iron deficiency anemia Immunizations Name Administration Dates Next Due Influenza, Split 05/12/2013 Influenza, Trivalent, IM (MDV) 03/11/2011 Influenza, Trivalent, Recomb inant, Egg Free, Preservative Free, Antibiotic Free, IM (FLUBLOK) 05/14/2014 Tdap 07/24/2008 Social History Tobacco Use Types Packs/Day [...] on file Legal Sex Female 10:37 AM OUTSIDE PHYSICAL DAMAGE APPRAISER Gender Identity Not on file Sexual Orientation Not on file Last Filed Vital Signs Vital Sign Reading Time Taken Comments Blood Pressure 122/80 11/10/2023 10:09 AM CDT Pulse 85 11/10/2023 10:09 AM CDT Temperature 36.2 ??C (97.2 ??F) 05/19/2021 11:[address] Respiratory Rate 16 11/10/2023 10:09 AM CDT Oxygen Saturation 100% 05/19/2021 11:45 AM OUTSIDE PHYSICAL DAMAGE APPRAISER Inhaled Oxygen Concentration - - Weight 103.4 kg (228 lb) 11/10/2023 10:09 AM CDT Height 167.6 cm (5' 6 ) 11/10/2023 10:09 AM CDT Body Mass Index 36.8 11/10/2023 10:09 AM CDT Plan of Treatment Not on file Procedures Procedure Name Priority Date/Time Associated Diagnosis Comments DIAGNOSTIC MAMMOGRAM BILATERAL W RM Schedule Routine, Read Routine (OP Routine) 03/18/2021 3:39 PM OUTSIDE PHYSICAL DAMAGE APPRAISER Nipple discharge in female HEPATITIS C ANTIBODY Routine 12/19/2019 4:49 PM CDT from Last 3 Months or Most Recently Relevant to Health Maintenance Results * Diagnostic Mammogram Bilateral W Rm (03/18/2021 3:39 PM OUTSIDE PHYSICAL DAMAGE APPRAISER) Anatomical Region Laterality Modality Breast Bilateral Mammography 03/18/2021 4:19 PM OUTSIDE PHYSICAL DAMAGE APPRAISER Impressions 03/18/2021 4:52 PM OUTSIDE PHYSICAL DAMAGE APPRAISER 1. ??Two intraductal masses and/or debris within [...] Meryl Olguin M.D. Narrative 03/18/2021 4:52 PM OUTSIDE PHYSICAL DAMAGE APPRAISER EXAMINATION: BILATERAL DIGITAL DIAGNOSTIC MAMMOGRAM INCLUDING CAD [...] one of which is sonographically stable from 2012. Given clinical history of multiple biopsy-proven papillomas, [...] IMG MAMMO PROCEDURES Fi nal Result * Hepatitis C antibody (12/19/2019 4:49 PM CDT) Hep C Ab Nonreactive Nonreactive [facility] Comment: Interpretive Data Nonreactive: Antibodies to HCV not detected. Does NOT exclude the possibility of recent exposure to HCV. Equivocal: Equivocal for HCV antibodies. Supplemental molecular testing will be automatically performed to determine infection status in accordance with current CDC screening recommendations. ?? Reactive: Positive for HCV antibodies. ??This may represent current or past HCV infection. Supplemental molecular testing will be automatically performed to determine ??current infection status in accordance with current CDC screening recommendations. Interpretive data was last revised on 2019. Testing performed by: , [address] [place] [id number], [place]., [address] Blood specimen (specimen) 12/19/2019 4:49 PM CDT 12/20/2019 9:45 AM CDT us Kathryn Rosas MD LAB MICROBIOLOGY - GENERAL O RDERABLES Edited Result - Final [facility] [address] Department of [place] [id number] from Last 3 Months or Most Recently Relevant to Health Maintenance Insurance [employer] ACCESS OOS [employer] [facility] [employer] [facility] [employer]ANCE Care Teams Forder Operator Relationship Specialty Start Date End Date Martha Lawrence MD [address] [place] [address] PCP - General 02/24/19 Zoran Willams Family Medicine 05/18/18
--- OUTSIDE RECORDS SUMMARY | 2024-05-13 22:22 | XMS_ITS | Data Portability ---
Author Organization [place] [facility], Main Office Address [address] [place] [address] Care Team Providers Care Commercial Manager Name Role Phone SHWETA WILKERSON [employer] [phone] Assessment No assessment recorded. Plan of Treatment Reminders Order Date Submit Date Provider Last Modified By Organization Details Last Modified Time Details Appointments None recorded. Lab CMP, serum or plasma [address] (Lab), [address] [place] [address], [address], 3 14:48:33 HbA1c (hemoglobin A1c), blood [address] (Lab), [address] [place] [address], [address], 3 14:48:33 insulin, serum [address] (Lab), [address] [place] [address], [address], 3 14:48:33 cortisol, am, serum 2022 023 [facility] (Lab), [address] [place] [address], [address], 3 12:48:07 dexamethaso ne, serum 2022 023 [facility] (Lab), [address] [place] [address], [address], 3 08:23:05 TSH + free T4, serum [address] (Lab), [facility] [address], [place], [address], 3 14:48:33 cortisol, am, serum [address] (Lab), [facility] [address], [place], [address], 3 11:22:48 dexamethaso ne, serum [address] (Lab), [facility] [address], [place], [address], 3 11:22:48 Referral None recorded. Procedures None recorded. Surgeries None recorded. Imaging None recorded. Medication Orders Rybelsus 7 mg tablet [address]/Pharmacy #2510, [address] [place], [address], 3 11:20:32 dexamethaso ne 1 mg tablet 2022 023 [facility]/Pharmacy #2510, [address] [place], [address], 3 14:47:07 dexamethaso ne 1 mg tablet 2022 023 [facility]/Pharmacy #2510, [address] [place], [address], 3 11:22:44 Ozempic 0.25 mg or 0.5 mg (2 mg/3 mL) subcutaneou s pen injector 2022 023 [facility]/Pharmacy #2510, [address] [place], [address], 3 11:20:21 spironolact one 50 mg tablet 2022 023 [facility]/Pharmacy #2510, [address] [place], [address], 3 11:21:16 Patient TargetsNo targets recorded. Patient InstructionsNo instructions recorded. Reason for Referral None Reported. Results Created Date Observation Date Name Description Value Unit Range Abnormal Flag Note LastModifiedBy Organization Detail LastModifiedTime Result Notes None recorded. Problems Name Problem SNOMED Code Status Onset Date Resolution Date Notes Provider Name and Address Organization Details Recorded Time Polycystic ovary syndrome 377034902 Active 2021 Not Available [facility] 3 06:16:14 Hypertriglyce ridemia 795910888 Active 2021 Not Available [facility] 3 06:16:14 Hypertensive disorder 52891321 Active 2018 Not Available [facility] 3 06:16:14 Anxiety 98131716 Active 2018 Not Available [facility] 3 06:16:14 Liver enzymes level above reference range 992813279 Active 2021 Not Available [facility] 3 06:16:14 Prediabetes 972809389 Active 2020 Not Available [facility] 3 06:16:14 Weight gain 1364239 Active 2022 Aylin Nguyen MD [address] [place] [address], [phone] , [facility] [employer] [facility] 3 11:22:06 Problem Notes None recorded. Procedures Surgical History Date Name Laterality Status Provider Name and Address Organization Details Recorded Time Eye completed Not Available [facility] 05/2022 06:11:09 laparoscopy completed Not Available [facility] 07/08/2022 06:11:09 Eye Surgery completed Not Available [facility] 07/08/2022 06:11:09 Unlisted procedure breast completed Not Available [facility] 07/08/2022 06:11:09 Ear Tube Placement completed Not Available [facility] 07/08/2022 06:11:09 cholecystectomy completed Not Available [facility] 07/08/2022 06:11:09 Imaging Results None recorded. Procedure Notes None recorded. Medical Equipment None Reported. Allergies Allergen ID Allergen Name Allergen Category Reaction Reaction Severity Criticality Documentation Date Start Date Code Code System Note Provider Name and Address Organization Details Recorded Time 78609 Substance with sulfonami de structure and antibacte rial mechanism of action (substanc e) medicatio n Not available Not available Not available 07/08/2022 08569 8003 SNOMED Sulfa eye drops Not Available [facility] 3 06:22:01 06844 Medicinal product containin g penicilli n and acting as antibacte rial agent (product) medicatio n Not available Not available Not available 07/08/2022 70562 05 SNOMED Not Available [facility] 3 06:22:01 Medications Name Sig Start Date Stop Date Status Note LastModified by Organization Details LastModified Time latanoprost 0.005 % eye drops INSTILL 1 DROP INTO RIGHT EYE AT BEDTIME active Not Available Not Available No t Available Miralax 17 gram/dose oral powder 17 GRAMS ORALLY DAILY MIXED WITH 8 OUNCES OF FLUID DAILY NEEDED CONSTIPAT ION 07/17 completed Not Available Not Available Not Available lamotrigine 150 mg tablet TAKE 1 TABLET EVERY DAY BY ORAL ROUTE FOR 30 DAYS. 12/24 completed Not Available Not Available Not Available venlafaxine ER 37.5 mg capsule,ext ended release 24 hr 11/26 completed Not Available Not Available Not Available prednisone 10 mg tablet PLEASE SEE ATTACHED FOR DETAILED DIRECTION S 05/31 completed Not Available Not Available Not Available venlafaxine 75 mg tablet 11/26 completed Not Available Not Available Not Available pilocarpine 1 % eye drops INSTILL 1 (ONE) DROP INTO RIGHT EYE 2 TIMES DAILY 12/24 completed Not Available Not Available Not Available clindamycin HCl 300 mg capsule TAKE 1 TABLET BY MOUTH THREE TIMES A DAY FOR 7 DAYS active Not Available Not Available No t Available trazodone 50 mg tablet 05/31 completed Not Available Not Available Not Available azithromyci n 250 mg tablet TAKE 2 TABLETS BY MOUTH TODAY, THEN TAKE 1 TABLET DAILY FOR 4 DAYS 12/02 completed Not Available Not Available Not Available ibuprofen 800 mg tablet 11/26 completed Not Available Not Available Not Available ofloxacin 0.3 % eye drops 11/26 completed Not Available Not Available Not Available hydrocodone 5 mg-acetamin ophen 325 mg tablet 07/01 completed Not Available Not Available Not Available prazosin 1 mg capsule 11/26 completed Not Available Not Available Not Available ondansetron HCl 4 mg tablet TAKE 1 TABLET BY MOUTH EVERY 8 HOURS active Not Available Not Available No t Available prednisone 20 mg tablet TAKE 2 TABLETS BY ORAL ROUTE ONCE DAILY FOR 5 DAYS TAKE WITH FOOD 07/17 completed Not Available Not Available Not Available clonazepam 0.5 mg tablet TAKE 1 TABLET BY MOUTH EVERY DAY NEEDED 07/17 completed Not Available Not Available Not Available spironolact one 100 mg tablet TAKE 1 TABLET BY MOUTH EVERY DAY IN THE MORNING active Not Available Not Available No t Available acetazolami de 250 mg tablet TAKE 1 TABLET BY MOUTH 4 TIMES DAILY FOR 20 DAYS active Not Available Not Available No t Available venlafaxine ER 150 mg capsule,ext ended release 24 hr 11/26 completed Not Available Not Available Not Available olanzapine 10 mg tablet TAKE 1 TABLET BY MOUTH EVERYDAY AT BEDTIME 12/02 completed Not Available Not Available Not Available triamcinolo ne acetonide 0.5 % topical ointment 05/31 completed Not Available Not Available Not Available amlodipine 5 mg tablet TAKE 1 TABLET BY MOUTH EVERY DAY active Not Available Not Available No t Available tramadol 50 mg tablet active Not Available Not Available No t Available lamotrigine 25 mg tablet TAKE 2 TABLETS BY MOUTH EVERY DAY AT BEDTIME 05/31 completed Not Available Not Available Not Available alprazolam 0.5 mg tablet TAKE 1 TABLET BY MOUTH TWICE A DAY NEEDED active Not Available Not Available No t Available ofloxacin 0.3 % ear drops 11/26 completed Not Available Not Available Not Available alprazolam 0.25 mg tablet TAKE 1 TO 2 TABLETS BY MOUTH DAILY NEEDED 11/26 completed Not Available Not Available Not Available lorazepam 0.5 mg tablet TAKE 1 TABLET BY MOUTH TWICE A DAY NEEDED active Not Available Not Available No t Available trazodone 100 mg tablet TAKE 1-2 TABLETS BY MOUTH AT BEDTIME NEEDED active Not Available Not Available No t Available ciprofloxac in 0.3 % eye drops ADMINISTE R 7 DROPS INTO THE LEFT EAR 2 TIMES A DAY FOR 10 DAYS 12/24 completed Not Available Not Available Not Available dexamethaso ne 1 mg tablet Take 1 tablet ay 10 pm night before 8 am cortisol active Not Available Not Available No t Available amlodipine 10 mg tablet 11/26 completed Not Available Not Available Not Available benzonatate 100 mg capsule TAKE 1 CAPSULE BY MOUTH EVERY 8 HOURS NEEDED 07/17 completed Not Available Not Available Not Available venlafaxine 37.5 mg tablet 07/01 completed Not Available Not Available Not Available trazodone 150 mg tablet TAKE 1 TABLET BY MOUTH EVERY DAY AT BEDTIME FOR 90 DAYS active Not Available Not Available No t Available neomycin-po lymyxin-dex ameth 3.5 mg/mL-10,00 0 unit/mL-0.1 % eye drops INSTILL 1 (ONE) DROP INTO RIGHT EYE 2 TIMES DAILY 12/24 completed Not Available Not Available Not Available ropinirole 0.5 mg tablet TAKE 1 TABLET BY MOUTH EVERY DAY AT BEDTIME active Not Available Not Available No t Available olanzapine 10 mg disintegrat ing tablet DISSOLVE 1 TABLET BY MOUTH ONCE DAILY NEEDED (PATEL NCarlito) REASONS MOOD DISORDER 12/02 completed Not Available Not Available Not Available omeprazole 20 mg capsule,del ayed release TAKE 1 CAPSULE BY MOUTH EVERY DAY 30 MINUTES BEFORE BREAKFAST AND DINNER active Not Available Not Available No t Available dorzolamide 22.3 mg-timolol 6.8 mg/mL eye drops ADMINISTE R 1 DROP INTO RIGHT EYE TWICE DAILY active Not Available Not Available No t Available montelukast 10 mg tablet TAKE 1 TABLET BY MOUTH EVERY DAY active Not Available Not Available No t Available hydroxyzine HCl 25 mg tablet TAKE 1 TABLET BY MOUTH 4 TIMES A DAY NEEDED FOR 30 DAYS *DC LORAZEPAM * 12/02 completed Not Available Not Available Not Available betaxolol 0.5 % eye drops active Not Available Not Available Not Available diazepam 10 mg tablet INSERT 1 TABLET VAGINALLY EVERY DAY AT BEDTIME FOR 14 DAYS 07/17 completed Not Available Not Available Not Available methylpredn isolone 4 mg tablets in a dose pack TAKE 6 TABLETS ON DAY 1 DIRECTED ON PACKAGE AND DECREASE BY 1 TAB EACH DAY FOR A TOTAL OF 6 DAYS active Not Available Not Available No t Available albuterol sulfate HFA 90 mcg/actuati on aerosol inhaler INHALE 2 PUFFS BY MOUTH EVERY 4-6 HOURS NEEDED FOR SHORT OF BREATH active Not Available Not Available No t Available cefdinir 300 mg capsule 11/26 completed Not Available Not Available Not Available fluticasone propionate 50 mcg/actuati on nasal spray,suspe nsion USE 2 SPRAYS IN EACH NOSTRIL ONCE DAILY NEEDED 12/02 completed Not Available Not Available Not Available metformin ER 500 mg tablet,exte nded release 24 hr TAKE 2 TABLETS BY MOUTH EVERY DAY BEFORE A MEAL 07/17 completed Not Available Not Available Not Available doxycycline hyclate 100 mg tablet TAKE 1 TABLET BY MOUTH TWICE A DAY FOR 10 DAYS 07/17 completed Not Available Not Available Not Available dicyclomine 10 mg capsule TAKE 1 CAPSULE BY MOUTH TWICE A DAY active Not Available Not Available No t Available lamotrigine 100 mg tablet TAKE 1 TABLET BY MOUTH EVERY DAY AT BEDTIME FOR 30 DAYS active Not Available Not Available No t Available spironolact one 50 mg tablet TAKE 1 TABLET BY MOUTH EVERY DAY IN THE MORNING active Not Available Not Available No t Available dorzolamide 2 % eye drops APPLY 1 DROP INTO RIGHT EYE THREE TIMES A DAY active Not Available Not Available No t Available neomycin 3.5 mg/g-polymy tisha B 10,000 unit/g-dexa meth 0.1 % eye oint APPLY THIN AMOUNT OF OINTMENT TO RIGHT EYE NIGHTLY NEEDED active Not Available Not Available No t Available escitalopra m 10 mg tablet 11/26 completed Not Available Not Available Not Available escitalopra m 20 mg tablet TAKE 1 TABLET BY MOUTH EVERY DAY active Not Available Not Available No t Available aripiprazol e 10 mg tablet TAKE 1 (ONE) TABLET BY MOUTH AT BEDTIME active Not Available Not Available No t Available atomoxetine 25 mg capsule TAKE 1 CAPSULE BY MOUTH EVERY DAY 12/02 completed Not Available Not Available Not Available atomoxetine 40 mg capsule TAKE 1 CAPSULE BY MOUTH EVERY DAY FOR 90 DAYS 07/17 completed Not Available Not Available Not Available atomoxetine 60 mg capsule TAKE 1 CAPSULE BY MOUTH EVERY DAY active Not Available Not Available No t Available ciprofloxac in 0.3 %-dexametha sone 0.1 % ear drops,suspe nsion INSTILL 4 DROPS BY OTIC ROUTE EVERY 12 HOURS FOR 7 DAYS RIGHT EAR 12/02 completed Not Available Not Available Not Available bupropion HCl XL 150 mg 24 hr tablet, extended release TAKE 1 TABLET BY MOUTH EVERY DAY IN THE MORNING active Not Available Not Available No t Available nitrofurant oin monohydrate /macrocryst als 100 mg capsule 07/01 completed Not Available Not Available Not Available Flovent HFA 44 mcg/actuati on aerosol inhaler INHALE 2 PUFFS BY MOUTH TWICE A DAY 12/24 completed Not Available Not Available Not Available ramelteon 8 mg tablet TAKE 1 TABLET BY MOUTH EVERYDAY AT BEDTIME active Not Available Not Available No t Available Alphagan P 0.1 % eye drops ADMINISTE R 1 DROP INTO RIGHT EYE 3 TIMES DAILY active Not Available Not Available No t Available hydrochloro thiazide 12.5 mg tablet 11/26 completed Not Available Not Available Not Available Combigan 0.2 %-0.5 % eye drops INSTILL 1 DROP INTO RIGHT EYE 2 TIMES DAILY. 12/02 completed Not Available Not Available Not Available nebivolol 10 mg tablet TAKE 1 TABLET BY MOUTH EVERY DAY active Not Available Not Available No t Available nebivolol 5 mg tablet TAKE 1 TABLET BY MOUTH EVERY DAY 07/17 completed Not Available Not Available Not Available venlafaxine ER 225 mg tablet,exte nded release 24 hr TAKE 1 TABLET BY MOUTH EVERY DAY 11/26 completed Not Available Not Available Not Available Vitamin D3 125 mcg (5,000 unit) tablet Take 1 tablet every day by oral route in the morning for 30 days. active Not Available Not Available No t Available Lo Loestrin Fe 1 mg-10 mcg (24)/10 mcg (2) tablet TAKE 1 TABLET BY MOUTH EVERY DAY IN THE MORNING 11/26 completed Not Available Not Available Not Available Xulane 150 mcg-35 mcg/24 hr transdermal patch APPLY ONE PATCH EVERY WEEK 12/24 completed Not Available Not Available Not Available Trulicity 1.5 mg/0.5 mL subcutaneou s pen injector INJECT 1.5 MG EVERY WEEK BY SUBCUTANE OUS ROUTE IN THE EVENING 12/24 completed Not Available Not Available Not Available Trulicity 0.75 mg/0.5 mL subcutaneou s pen injector INJECT 0.75MG SUBCUTANE OUSLY ONCE WEEK 07/17 completed Not Available Not Available Not Available Belsomra 20 mg tablet TAKE 1 TABLET BY MOUTH EVERY DAY AT BEDTIME FOR 30 DAYS 07/17 completed Not Available Not Available Not Available DHEA 50 mg tablet TAKE 1 TABLET BY MOUTH EVERY DAY IN THE MORNING 11/26 completed Not Available Not Available Not Available Blisovi 24 Fe 1 mg-20 mcg (24)/75 mg (4) tablet TAKE 1 TABLET BY MOUTH EVERY DAY 07/17 completed Not Available Not Available Not Available Vraylar 1.5 mg capsule TAKE 1 CAPSULE BY MOUTH EVERY DAY active Not Available Not Available No t Available Zenpep 40,000 unit-126,00 0 unit-168,00 0 unit capsule,del ayed release TAKE 2 CAPSULES WITH MEALS AND 1 CAPSULE WITH SNACKS active Not Available Not Available No t Available Spravato 56 mg (28 mg x 2) nasal spray 12/02 completed Not Available Not Available Not Available Spravato 84 mg (28 mg x 3) nasal spray 07/17 completed Not Available Not Available Not Available Rybelsus 7 mg tablet TAKE 1 TABLET BY MOUTH EVERY DAY IN THE MORNING 12/17 completed Not Available Not Available Not Available Ozempic 1 mg/dose (4 mg/3 mL) subcutaneou s pen injector INJECT 1 MG EVERY WEEK BY SUBCUTANE OUS ROUTE AT DINNER 12/02 completed Not Available Not Available Not Available Ozempic 0.25 mg or 0.5 mg (2 mg/3 mL) subcutaneou s pen injector Inject 0.5 mg every week by subcutane ous route at dinner for 90 days. active Not Available Not Available No t Available Vitals Date Recorded Body mass index (BMI) Body height Oxygen saturation Oxygen saturation in Arterial blood by Pulse oximetry Heart rate Body temperature Body weight Systolic blood pressure Diastolic blood pressure Provider Name and Address Organization Details Last Updated DateTime 1 45.3 kg/m2 162.56 cm 99 % 99 % 90 /min 98.4 [degF] 491638. 39 g 120 mm[Hg] 80 mm[Hg] Not Available [facility] 3 06:13:53 Date Recorded Body height Provider Name an d Address Organization Details Last Updated DateTime 12/02/2021 162.56 cm Not Available [facility] 3 06:13:53 Date Recorded Body height Body mass index (BMI) Body weight Body temperature Heart rate Systolic blood pressure Diastolic blood pressure Provider Name and Address Organization Details Last Updated DateTime 3 162.56 cm 45 kg/m2 212742. 2 g 97.9 [degF] 88 /min 126 mm[Hg] 80 mm[Hg] Antonia MitchelllinsANGIE [place] [employer] 3 14:23:38 Date Recorded Body height Body mass index (BMI) Body weight Heart rate Body temperature Systolic blood pressure Diastolic blood pressure Provider Name and Address Organization Details Last Updated DateTime 3 162.56 cm 43.2 kg/m2 912367. 84 g 73 /min 98.7 [degF] 190 mm[Hg] 128 mm[Hg] Gabby Mendoza MA [facility] 3 11:04:27 Social History Question Answer Notes LastModified by Organizat ion Details LastModified Time Tobacco Smoking Status Never Smoker Not Available [facility] 07/08/2022 06:10:12 What Is Your Level Of Alcohol Consumption? None [id number] Information not available 07/08/2022 What Is Your Level Of Caffeine Consumption? Moderate [id number] Information not available 07/08/2022 Which Illicit Or Recreational Drugs Have You Used? Pot [id number] Information not available 07/08/2022 What Is The Highest Grade Or Level Of School You Have Completed Or The Highest Degree You Have Received? 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 [id number] Information not available 07/08/2022 Do You Use Any Illicit Or Recreational Drugs? Yes [id number] Information not available 07/08/2022 Do You Or Have You Ever Used Any Other Forms Of Tobacco Or Nicotine? No [id number] Information not available 07/08/2022 Sex: Unknown Functional Status None recorded. Mental Status None recorded. Family History Relationship Description Onset Age of this Age Resolved Age Notes LastModified by Organization Details LastModified Time Sister Diabetes mellitus [email or web address] Not available 07/17 14:27:58 Medical History Condition Response DEPRESSION (INCLUDING POST ) Y HYPERTENSION Y GLAUCOMA Y Gynecological HistoryNo gynecological history recorded. Obstetrics History GPAL:G 0 P 0 0 0 0 Past Encounters Encounter ID Performer Location Encounter Start Date Encounter Closed Date Diagnosis/Indication Diagnosis SNOMED-CT Code Diagnosis ICD10 Code [id number] [facility] [address] [place] [address] 12/24/2020 00:00:00 12/24/2020 21:39:34 [id number] [facility] [address] [place] [address] 12/02/2021 00:00:00 12/02/2021 17:02:29 [id number] Aylin Nguyen MD [facility] [address] [place] [address] 07/17/2022 14:10:01 07/17/2022 14:52:58 Polycystic ovary syndrome 580813081 E28.2 Prediabetes 881945745 R7 3.03 [id number] Aylin Nguyen MD [facility] [address] [place] [address] 12/17/2022 10:41:22 12/17/2022 11:28:07 Polycystic ovary syndrome 646321450 E28.2 Prediabetes 370154755 R7 3.03 Weight gain 6935154 R63. 5 Health Concerns Section Related Observation LastModified by Organization Detai ls LastModified Time None Recorded Concern Status LastModified by Organization Details LastModified Time None Recorded Advance Directives Directive None Recorded Payers Encounter Date Sequence Insurance Name Policy Number Policy Franklin Covered Member ID Franklin Member ID Guarantor Name 07/17/2022 1 [place] [id number] Micole V Miles [id number] Micole Miles 07/17/2022 2 [employer] (PPO) Micole Miles [id number] Micole Miles 12/17/2022 1 [place] [id number] Micole V Miles [id number] Micole Miles 12/17/2022 2 [employer] (PPO) Micole Miles [id number] Micole Miles Notes Date Note Type Note Provider Name and Address Organization Details Recorded Time 07/17/2022 text/html 42 yo female com es in for follow up in management of PCOS, prediabetes, elevated liver enzymes last seen in we continued spironolactone 50 mg daily. we trialed trulicity 0.75 mg once weekly. She is no longer on trulicity not sure why she stopped not taking for a while. She feels she did best on the rybelsus in the past. She did well and tolerated this. labs from 100 mg/dLCr normalCa 7.9 mg/dLTP/Alb ger909/129/35/76dhea s 14 ug/dLglucose 100 mg/dLinsulin 18.2 uU/ml transvaginal u/s:multiple uterine fibroids measuring up to 3.1 cm and ovaries appeared normal the u/s Aylin Nguyen MD [address], [facility] [address], [place], [address], [employer] 07/17/2022 14:55:58 12/17/2022 text/html 42 yo female com es in for follow up in management of prediabetes, PCOS last seen in July at that time we restarted rybelsus We sent for DST-however the hospital did not have the order and they did not complete this for her. She went to GI doctor and she had an elastase completed and she was dx with EPI. She is taking zenpep prior to her meals- started taking it yesterday and fogot with dinner. She feels the rybelsus is not working for patient. She didn't use the ozempic or trulicity as she put then in the closet. labs from 12/30:TSH of 0.406 uIU/mlFT4 of 1.26 ng/dLa1c of 5.2%glucose 104 mg/dLCr 1.2 mg/dL with GFR over 60 ml/minLFT normal cortisol 1.1 ug/dL Aylin Nguyen MD [address], [address], [place], [address], [employer] 12/17/2022 14:10:26 OBGyn Episode No OBEpisode recorded.
--- OUTSIDE RECORDS SUMMARY | 2024-05-13 22:22 | XMS_ITS | Encounter Summary ---
Author Organization [facility] Address [address] [place] [address] Phone Care Team Providers Care Tank Processor Name Role Phone Zoran Willams Unavailable Unavailable Martha Lawrence MD Primary Care Provider +1- [phone] Encounter Details Date Type Department Care Team (Late st Contact Info) Description 01/16/2020 Telephone [facility] Surgery 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 ----- Message from Meggan Martinez MD sent at 01/15/2020 8:30 PM CDT ----- Please let her know that the pathology was completely benign. I'll discuss with her at the televisit POV. documented in this encounter Plan of Treatment Not on file documented as of this encounter Visit Diagnoses Not on filedocumented in this encounter Care Teams Tank Processor Relationship Specialty Start Date End Date Martha Lawrence MD [address] [facility] [place] [address] PCP - General 02/24/19 Zoran Willams Family Medicine 05/18/18 documented as of this encounter
--- OUTSIDE RECORDS SUMMARY | 2024-05-13 22:22 | XMS_ITS | Clinical Summary ---
Author Organization [facility] Address [address] [place] [address] Phone Care Team Providers Care Four Slide Machine Operator Name Role Phone Zoran Willams Unavailable Unavailable Martha Lawrence MD Primary Care Provider +1- [phone] Allergies Active Allergy Reactions Criticality Noted Date [...] to include albumin milk. Okay to include Bahraini yogurt Advise to look into intermittent fasting. Continue endurance and weight training Assessment & Plan (04/06/2023 4:26 PM FIELD REPRESENTATIVE/HEALTH EDUCATION): Counseled patient on diet and exercise Advised patient to stop added sugars, cutback on processed foods Include whole grain, fruits and vegetables, greens, lean, organic fashion chicken Cutback on red meat and processed meat Avoid animal daily products. Advised to include albumin milk. Okay to include Bahraini yogurt Advise to look into intermittent fasting. Continue endurance and weight training Prediabetes 04/06/2023 Assessment & Plan (11/10/2023 12:19 PM CDT): Counseled on diet and exercise Continue mounjaro 5 mg subQ weekly Assessment & Plan (04/06/2023 4:26 PM FIELD REPRESENTATIVE/HEALTH EDUCATION): Counseled on diet and exercise Switch Ozempic [...] exercises Assessment & Plan (04/06/2023 4:26 PM FIELD REPRESENTATIVE/HEALTH EDUCATION): Counseled on diet and exercise as above [...] Nasal saline spray (Simply saline, Little Remedies, Grundy, Raymond) 2 second sprays or 2 squeezes into each nostril while looking down over the sink, do not need to sniff in. Follow up in 6 months, earlier with any ear drainage 07/06/2019 T-tubes placed in Office Nipple discharge in female 12/12/2019 Acute recurrent maxillary sinusitis 05/26/2019 Assessment & Plan (05/26/2019 10:38 AM FIELD REPRESENTATIVE/HEALTH EDUCATION): Take Cefdinir with a meal daily Nasal saline spray (Simply saline, Little Remedies, Grundy, Raymond) 2 second sprays or 2 squeezes into [...] drainage Assessment & Plan (07/07/2019 3:32 PM FIELD REPRESENTATIVE/HEALTH EDUCATION): Bilateral myringotomy with T-tube placement in Office today Risks and complications discussed including anesthesia, bleeding, infection, hearing loss, ear tubes may fall out early, fall inwards, stay in longer than a few years, get clogged, fall out and leave a hole in the ear drum that would need to be patched, drain clear fluid. Assessment & Plan (05/26/2019 10:38 AM FIELD REPRESENTATIVE/HEALTH EDUCATION): Take Cefdinir with a meal daily Nasal saline spray (Simply saline, Little Remedies, Grundy, Raymond) 2 second sprays or 2 squeezes into [...] 05/26/2019 Assessment & Plan (05/26/2019 10:38 AM FIELD REPRESENTATIVE/HEALTH EDUCATION): Hearing test right before follow up Left ear pain 05/26/2019 Assessment & Plan (05/26/2019 8:08 PM FIELD REPRESENTATIVE/HEALTH EDUCATION): Take Cefdinir with a meal daily Nasal saline spray (Simply saline, Little Remedies, Grundy, Raymond) 2 second sprays or 2 squeezes into [...] deficiency Assessment & Plan (04/06/2023 4:26 PM FIELD REPRESENTATIVE/HEALTH EDUCATION): Check levels and further plans based on [...] Antibiotic Free, IM (FLUBLOK) 05/14/2014 Tdap 07/24/2008 Surgical History Surgery Date Site/Laterality Comments CHOLECYSTECTOMY 05/10/2008 - 05/09/2009 Cholecystectomy 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 HISTORY L/R cataract extraction: 1982 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 HISTORY Detached Retina: Surgically repaired; 1982 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 HISTORY Scar tissure removal Left Eye: 2008 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 HISTORY myringotomy tubes: 1989 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: [facility] 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 HISTORY right lens implant : Dr Barrios - [facility] 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 HISTORY 2019 breast bx R - benign 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 HISTORY milk duct removed right breast ; benign papilloma: Dr Alonso [facility] 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 HISTORY left eye removed 02-10-12, prosthetic: Dr Fidel Hus - [facility] 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 HISTORY 05/10/1982 - 05/09/1983 retinal reattachment TYMPANOSTOMY TUBE PLACEMENT 05/10/1992 - 05/09/1993 tubes in ears 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 HISTORY 05/10/2011 - 05/09/2012 Left eye removal 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 HISTORY 05/10/2011 - 05/09/2012 milk duct removal CATARACT EXTRACTION 1981 - 05/09/1982 Bilateral Cataract extraction TONSILLECTOMY AND ADENOIDECTOMY 05/10/2015 - 05/09/2016 BREAST BIOPSY 12/19/2019 Left UTERINE FIBROID SURGERY Medical History Medical History Date Comments Hx Other Medical L/R cataract ex traction Hx Other Medical Detached Retina Hx Other Medical Scar tissure re moval Left Eye Hx Other Medical myringotomy tub es Hx Other Medical Menorrhagia Hx Other Medical [place] teeth ex traction 12/18 Hx 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 Hx Other Medical right lens impl ant Hx Other Medical OPTHO Glaucoma glaucoma Hx Other Medical milk duct remov ed right breast ; benign pap Hx Other Medical left eye remove d 02-10-12, prosthetic Depression Depression Hypertension Hypertension Hx Other Medical left Shoulder p ain Hx Other Medical fibroid removed Polycystic ovarian disease GERD (gastroesophageal reflux disease) Breast discharge Morbid obesity (HCC) Asthma Anxiety Family History Medical History Relation Name Comments Anemia Father Heart attack Maternal Grandfather Heart disease Maternal Grandfather Stroke Maternal Grandfather Stroke Maternal Grandmother Diabetes Other 1 Family history of Diabetes mellitus; Heart disease Other 2 Family history of Heart disease; COPD Other 3 Family history of COPD; Alcohol abuse Other 4 Family history of Alcoholism; Stroke Other 5 Family history of Stroke; Hypertension Other 6 Family history of Hypertension; Mental illness Other 7 Family histor y of Mental illness; Osteoarthritis Other 8 Family histor y of Osteoarthritis; Kidney disease Other 9 Family histor y of Renal disease; Ovarian cancer Paternal Grandmother Anesthesia problems Neg Hx Relation Name Status Comments Father Maternal Grandfather Maternal Grandmother Other 1 Other 2 Other 3 Other 4 Other 5 Other 6 Other 7 Other 8 Other 9 Paternal Grandmother Social History Tobacco Use Types Packs/Day Years [...] on file Legal Sex Female 10:37 AM FIELD REPRESENTATIVE/HEALTH EDUCATION Gender Identity Not on file Sexual Orientation Not on file Obstetrics History Last Filed Vital Signs Vital Sign Reading Time Taken Comments Blood Pressure 122/80 11/10/2023 10:09 AM CDT Pulse 85 11/10/2023 10:09 AM CDT Temperature 36.2 ??C (97.2 ??F) 05/19/2021 11:[address] Respiratory Rate 16 11/10/2023 10:09 AM CDT Oxygen Saturation 100% 05/19/2021 11:45 AM FIELD REPRESENTATIVE/HEALTH EDUCATION Inhaled Oxygen Concentration - - Weight 103.4 kg (228 lb) 11/10/2023 10:09 AM CDT Height 167.6 cm (5' 6 ) 11/10/2023 10:09 AM CDT Body Mass Index 36.8 11/10/2023 10:09 AM CDT Plan of Treatment Health Maintenance Due Date Last Done Comments Cervical Cancer Screening 1981 Varicella Vaccines (1 of 2 - 13+ 2-dose series) 1994 Regular Well Visit/Exam 18-64 1999 DTaP/Tdap/Td Vaccine (2 - Td or Tdap) 07/24/2018 07/24/2008 Breast Cancer Screening-Mammogram 03/18/2022 03/18/2021, 12/12/2019 Covid-19 Vaccine ( season) 2024 02/15/2021, 07/26/2020, 07/04/2020 Depression Screening 11/09/2024 11/10/2023 Hepatitis C Screening Completed 12/19/2019, 020 Influenza Vaccine Completed 01/21/2024, , 04/01/2022, Additional history exists HPV Vaccines Aged Out No longer eligi ble based on patient's age to complete this topic Pneumococcal vaccine <65 Aged Out No longer eligible based on patient's age to complete this topic Procedures Procedure Name Priority Date/Time Associated Diagnosis Comments DIAGNOSTIC MAMMOGRAM BILATERAL W RM Schedule Routine, Read Routine (OP Routine) 03/18/2021 3:39 PM FIELD REPRESENTATIVE/HEALTH EDUCATION Nipple discharge in female HEPATITIS C ANTIBODY Routine 12/19/2019 4:49 PM CDT from Last 3 Months or Most Recently Relevant to Health Maintenance Results * Diagnostic Mammogram Bilateral W Rm (03/18/2021 3:39 PM FIELD REPRESENTATIVE/HEALTH EDUCATION) Anatomical Region Laterality Modality Breast Bilateral Mammography 03/18/2021 4:19 PM FIELD REPRESENTATIVE/HEALTH EDUCATION Impressions 03/18/2021 4:52 PM FIELD REPRESENTATIVE/HEALTH EDUCATION 1. ??Two intraductal masses and/or debris within [...] Meryl Olguin M.D. Narrative 03/18/2021 4:52 PM FIELD REPRESENTATIVE/HEALTH EDUCATION EXAMINATION: BILATERAL DIGITAL DIAGNOSTIC MAMMOGRAM INCLUDING CAD [...] it. Electronically signed by: Meryl Olguin M.D. us Meggan Martinez MD IMG MAMMO PROCEDURES Fi nal Result * Hepatitis C antibody (12/19/2019 4:49 PM CDT) Hep C Ab Nonreactive Nonreactive [facility]DES ([place]) Comment: Interpretive Data Nonreactive: Antibodies to HCV [...] last revised on 2019. Testing performed by: [facility], [address] [place] [address]., [address] Blood specimen (specimen) 12/19/2019 4:49 PM CDT 12/20/2019 9:45 AM CDT us Kathryn Rosas MD LAB MICROBIOLOGY - GENERAL O RDERABLES Edited Result - Final [facility]IAN VALDES ([place]) 1 [facility] [place] [address] from Last 3 Months or Most Recently Relevant to Health Maintenance Insurance [facility] [facility] Address[facility] [id number] [place] [address] [facility] [place] [place] [facility] [place] [facility] ACC[employer] Member Subscriber Plan / Payer (Ef fective 2013-Present) Name:Cesario Jewell V Relation to Subscriber:Self Name:Cesario Jewell V Payer ID:[id number] (NAIC) Type:[employer] Address: [address] Care Teams Four Slide Machine Operator Relationship Specialty Start Date End Date Martha Lawrence MD [address] [facility] [place] [address] PCP - General 02/24/19 Zoran Willams Family Medicine 05/18/18
--- OUTSIDE RECORDS SUMMARY | 2024-05-13 22:22 | XMS_ITS | Encounter Summary ---
Author Organization [facility] Address [address] [place] [address] Care Team Providers Care Barrel Roller Operator Name Role Phone Zoran Willams Unavailable Unavailable Martha Lawrence MD Primary Care Provider [phone]- [phone] Encounter Details Date Type Department Care Team (Late st Contact Info) Description 05/13/2021 Orders Only [facility] Testing Site - [facility]. Building [address] [place] [address] [address] [place] [address] Meggan Martinez MD [facility] [address] [id number] Pre-operative laboratory examination (Primary Dx) Social History Tobacco Use Types [...] on file Legal Sex Female 10:37 AM TEST DESIGN ENGINEER Gender Identity Not on file Sexual Orientation Not on file documented as of this encounter Progress Notes * Yumiko Saez MA - 05/13/2021 2:22 PM CST Testing types: Pre-procedure ?? Date of Px/chemo/treatment/placement/transfer 05/19/2021 ?? Testing site patient will be sent to: [facility] ?? Date testing requested: 05/16/2021 ?? Testing: COVID-19 RNA ?? Does the patient currently work in a healthcare facility with direct patient contact? No ?? Is the patient a resident of a congregate care or living setting? No ?? ? No ?? Please select the performing region: [facility] DESIGN ENGINEER documented in this encounter Plan of Treatment Not on file documented as of this encounter Results * COVID-19 Coronavirus RNA Nasopharyngeal (05/16/2021 8:34 AM TEST DESIGN ENGINEER) COVID-19 RNA Not Detected LILIAN Comment: Interpretive Data Synonyms for this test include: PCR and NAAT . ??Testing performed by the [facility] Molecular Infectious Disease Laboratory. The 2019-Novel Coronavirus [...] on June 13, 2020. Testing performed by: [facility], [address] [facility] [place]., [address] First COVID-19 test? No [facility] Comment:Testing performed by : [facility], [address] [place]., [address] Employeed in healthcare? No [facility] Comment:Testing performed by : [facility], [address] [place]., [address] status? No [facility] Comment:Testing performed by : [facility], [address] [facility] [place]., [address] Group care resident? No [facility] Comment:Testing performed by : [facility], [address] [place]., [address] Hospitalized? No [facility] Comment:Testing performed by : [facility], [address] [place]., [address] Is patient in ICU? No [facility] Comment:Testing performed by : [facility], [address] [place]., [address] Symptomatic as defined by CDC? No [facility] Comment:Testing performed by : [facility], [address] [place]., [address] Nasopharyngeal 05/16/2021 8: 34 AM TEST DESIGN ENGINEER 05/16/2021 6:20 PM TEST DESIGN ENGINEER Narrative LILIAN - 05/17/2021 6:14 AM TEST DESIGN ENGINEER What is the reason for testing?->Screening prior to scheduled procedure or surgery (batch) Meggan Martinez MD LAB MICROBIOLOGY - GENE [facility] ORDERABLES Final Result [facility] [address] Department [place] [address] documented in this encounter Visit Diagnoses Diagnosis Pre-operative laboratory examination- Primary Pre-procedural laboratory examination Pre-operative laboratory examination Pre-procedural laboratory examination documented in this encounter Care Teams Barrel Roller Operator Relationship Specialty Start Date End Date Martha Lawrence MD [address] [place] [address] PCP - General 02/24/19 Zoran Willams Family Medicine 05/18/18 documented as of this encounter
--- OUTSIDE RECORDS SUMMARY | 2024-05-13 22:22 | XMS_ITS | Encounter Summary ---
Author Organization [facility] Address [address] [place] [address] Phone Care Team Providers Care Mathematics Teacher Name Role Phone Zoran Willams Unavailable Unavailable Martha Lawrence MD Primary Care Provider +1- [phone] Reason for Referral * Consultation (Routine) - Closed Specialty Diagnoses / Procedures Referred By Joelle lopez Referred To Contact Family Medicine Diagnoses Pre-procedure lab exam Meggan Martinez MD [address] [address] Phone: tel: fax: [facility] Referral ID Status Reason Start Date Expiration Date V isits Requested Visits Authorized [id number] Closed Specialty Services Required 03/21/2021 04/20/2022 1 1 Question Answer Testing types: Pre-procedure Date of Procedure/Chemo/Treatment 04/21/2021 Testing site patient will be sent to: [facility] Testing: COVID-19 RNA Does the patient currently work in a healthcare facility with direct patient contact? Unknown Is the patient a resident of a congregate care or living setting? Unknown ? Unknown Date testing requested: 04/18/2021 Testin in 1? (COVID, FLU A/B, RSV) Please select the performing region: [facility] [[id number]] Comments [address] location ARCH ANALYST Encounter Details Date Type Department Care Team (Late st Contact Info) Description 03/21/2021 Orders Only [facility] [address] [facility] 5th [place] [address] [place] [address] Meggan Martinez MD [address] [place] [address] Social History Tobacco Use Types Packs/Day Years Used Date Smoking Tobacco: Never Smokeless Tobacco: Never Alcohol Use Standard Drinks/Week Comments No 0 (1 standard drink = 0.6 oz pur e alcohol) Comments No Sex and Gender Information Value Date Recorded Sex Assigned at Not on file Legal Sex Female 10:37 AM RESEARCH ANALYST Gender Identity Not on file Sexual Orientation Not on file documented as of this encounter Plan of Treatment Scheduled Referrals Name Type Priority Associated Diagnoses Order Schedule Request for Ambulatory Collection Site Testing - Adult Outpatient Referral Routine Ordered: 03/21/2021 documented as of this encounter Visit Diagnoses Not on filedocumented in this encounter Care Teams Mathematics Teacher Relationship Specialty Start Date End Date Martha Lawrence MD [place] [address] PCP - General 02/24/19 Zoran Willams Family Medicine 05/18/18 documented as of this encounter
--- OUTSIDE RECORDS SUMMARY | 2024-05-13 22:23 | XMS_ITS | Encounter Summary ---
Author Organization [facility] Address [address] [place] [address] Care Team Providers Care Chief Airport Guide Name Role Phone Zoran Willams Unavailable Unavailable Martha Lawrence MD Primary Care Provider +1- [phone] Encounter Details Date Type Department Care Team (Latest Contact Info) Description 12/11/2019 11:33 AM CDT - 12/11/2019 12:24 PM CDT Hospital Encounter [facility] [address] [place] [address] Discharge Disposition: Discharge to home or self care Social History Tobacco Use Types Packs/Day Years Used Date Smoking Tobacco: Never Smokeless Tobacco: Never Alcohol Use Standard Drinks/Week Comments No 0 (1 standard drink = 0.6 oz pur e alcohol) Comments No Sex and Gender Information Value Date Recorded Sex Assigned at Not on file Legal Sex Female 10:37 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 Gender Identity Not on file Sexual Orientation Not on file documented as of this encounter Medications at Time of Discharge albuterol HFA (PROVENTIL HFA,VENTOLIN HFA,PROAIR HFA) 90 mcg/actuation inhalerIndication s:Acute Asthma Attack Inhale 2 puffs every 6 (six) hours as needed 01/20/2019 cholecalciferol (VITAMIN D-3) 5,000 unit tabletIndications :Vitamin D Deficiency Take 1 tablet (5,000 Units total) by mouth every morning montelukast (SINGULAIR) 10 mg tablet Take 1 tablet (10 mg total) by mouth nightly 10/31/2019 amLODIPine (NORVASC) 10 mg tablet 03/13/2019 0 fluticasone propionate (FLONASE) 50 mcg/actuation nasal sprayIndications: Nasal turbinate hypertrophy Administer 2 sprays into each nostril daily 16 g 05/20/2019 0 fluticasone propionate (FLONASE) 50 mcg/actuation nasal sprayIndications: Acute recurrent maxillary sinusitis,ETD (Eustachian tube dysfunction), left Administer 2 sprays into each nostril daily 16 g 05/26/2019 0 latanoprost (XALATAN) 0.005 % ophthalmic solution latanoprost 0.005 % eye drops INSTILL 1 DROP INTO RIGHT EYE AT BEDTIME 03/05/2018 1 metFORMIN XR (GLUCOPHAGE XR) 500 mg 24 hr tabletIndications :Polycystic Ovarian Syndrome Take 500 mg by mouth daily with breakfast 04/20/2019 1 prazosin (MINIPRESS) 1 mg capsule TAKE 1 CAPSULE BY MOUTH EVERYDAY AT BEDTIME 09/27/2019 0 spironolactone (ALDACTONE) 50 mg tablet 05/13/2019 0 venlafaxine (EFFEXOR) 75 mg tablet Take 75 mg by mouth daily. 0 09/02/2017 0 venlafaxine XR (EFFEXOR-XR) 37.5 mg 24 hr capsule TAKE 2 CAPSULES DAILY X 7 DAYS THEN 1 CAPSULE DAILY X 7 DAYS THEN STOP 09/27/2019 0 documented as of this encounter Discharge Disposition Disposition Code Departure Means Destination Discharge to home or self care documented in this encounter Plan of Treatment Not on file documented as of this encounter Procedures Procedure Name Priority Date/Time Associated Diagnosis Comments BREAST IMAGING OUTSIDE REFERENCE Routine 12/11/2019 11:33 AM CDT documented in this encounter Results * Breast Imaging Outside Reference (12/11/2019 11:33 AM CDT) Impressions [facility]_M[facility]MO[facility] - 12/11/2019 11:33 AM CDT These images are for Reference purposes only and have not been reviewed by [facility]. ??There will be no report generated by a [facility] Radiologist. Narrative [facility]_MAMMO[facility] - 12/11/2019 11:33 AM CDT EXAMINATION: ??Images For Reference Purposes Only us Meggan Martinez MD IMG MAMMO PROCEDURES nal Result [facility] documented in this encounter Visit Diagnoses Not on filedocumented in this encounter Care Teams Chief Airport Guide Relationship Specialty Start Date End Date Martha Lawrence MD [place] [address] PCP - General 02/24/19 Zoran Willams Family Medicine 05/18/18 documented as of this encounter
--- OUTSIDE RECORDS SUMMARY | 2024-05-13 22:23 | XMS_ITS | Encounter Summary ---
Author Organization [facility] Healthcare Address [address] [place] [address] Care Team Providers Care Carpenter Assistant Name Role Phone Zoran Willams Unavailable Unavailable Martha Lawrence MD Primary Care Provider [phone] Reason for Referral * Diagnostic Imaging (Routine) - Closed Specialty Diagnoses / Procedures Referred By Contac t Referred To Contact Diagnoses Abnormal mammogram Procedures Mammo Post Clip Placement Left Meggan Martinez MD [address] [address] Phone: tel: fax: [facility] Referral ID Status Reason Start Date Expiration Date Visits Re quested Visits Authorized [id number] Closed 12/19/2019 01/17/2021 1 1 * Diagnostic Imaging (Routine) - Closed Specialty Diagnoses / Procedures Referred By Contac t Referred To Contact Diagnoses Abnormal mammogram Procedures US Guided Breast Biopsy Left Meggan Martinez MD [address] [address] Phone: tel: fax: [address] [phone] Referral ID Status Reason Start Date Expiration Date Visits Re quested Visits Authorized [id number] Closed 12/12/2019 01/10/2021 1 1 Reason for Visit * Diagnostic Imaging (Routine) - Closed Specialty Diagnoses / Procedures Referred By Joelle lopez Referred To Contact Diagnoses Abnormal mammogram Procedures US Guided Breast Biopsy Left Meggan Martinez MD [address] [address] Phone: tel: fax: [address] [phone] Referral ID Status Reason Start Date Expiration Date Visits Re quested Visits Authorized [id number] Closed 12/12/2019 01/10/2021 1 1 Encounter Details Date Type Department Care Team (Latest Contact Info) Description 12/19/2019 10:45 AM CDT - 12/19/2019 11:59 PM CDT Hospital Encounter [facility] Advanced Medicine Breast Imaging [facility] ([facility]) [address] [place] [address] Meggan Martinez MD [address] [address] Abnormal mammogram Discharge Disposition: Discharge to home or self care Social History Tobacco Use Types Packs/Day Years Used Date Smoking Tobacco: Never Smokeless Tobacco: Never Alcohol Use Standard Drinks/Week Comments No 0 (1 standard drink = 0.6 oz pur e alcohol) Comments No Sex and Gender Information Value Date Recorded Sex Assigned at Not on file 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 Avoid exercise for 24 hours after biopsy. ?? Do not lift objects heavier than 5-10 lbs for 24 hours after biopsy. ?? Other instructions: Medication: ?? Remain on your usual medications; check with your regualr doctor for any questions. ?? You may take Tylenol (acetaminophen) 500mg, 2 tablest aevery 6 hours fr pain of needed (and no allergy exists). You should avoid using Aspirin (Excedrin), Ibuprofen (Motrin, Advil)or Aleve for 48 hours after thebiopsy. ?? Other instructions Wound care: Wear your bra all day today, and consider sleeping in one tonight. You may take a bath or shower after on ?? Tegaderm Dressing: Remove the outer dressing after you bath or shower. Don ot remove the steri strips. They will fall off in 5-10 days. ?? Dermabond: Do not scratch, rub or pick at the wound adhesive. It will naturally fall off in 5-10days. Avoid swimming pools, hot tubs, and tub soaks for 7 days after biopsy. Apply an ice pack to the biopsy site every 2 hours today (for 20 minutes each time) until bedtime. Do not place ice directly on the skin. You will experience some bruising. Special instructions: Please call the [facility] nurses at [phone] or the [facility] at [phone] (8am to 5 pm*) if you experience: ?? Extreme redness, bruising, swelling, severe pain or unusual drainage at the biopsy site ?? Fever of 101.5 F ?? If there are any signs of bleeding, lie down and apply firm pressure for 20 minutes. If bleedingpersists call the [facility] or your physician. * If it is after hours, a weekend or holiday, please call your breast surgeon or referring physician. Results: You should receive your biopsy results within 3 working days. If you have not been informed of yourresults after this time please call: ?? The breast imaging nurse in the [facility] at [phone]. ?? The breast surgeon's office at . ?? The referring physicians office documented in this encounter Medications at Time of Discharge albuterol HFA (PROVENTIL HFA,VENTOLIN HFA,PROAIR HFA) 90 mcg/actuation inhalerIndication s:Acute Asthma Attack Inhale 2 puffs every 6 (six) hours as needed 01/20/2019 buPROPion XL (WELLBUTRIN XL) 150 mg 24 hr tabletIndications :Anxiety with Depression Take 1 tablet (150 mg total) by mouth every morning cholecalciferol (VITAMIN D-3) 5,000 unit tabletIndications :Vitamin D Deficiency Take 1 tablet (5,000 Units total) by mouth every morning escitalopram (LEXAPRO) 20 mg tabletIndications :Anxiety with Depression Take 1 tablet (20 mg [...] each nostril daily 16 g 05/26/2019 0 lamoTRIgine (LaMICtal) 100 mg tabletIndications :MOOD STABILIZER Take 1 tablet (100 mg total) [...] BY MOUTH EVERYDAY AT BEDTIME 09/27/2019 0 predniSONE (DELTASONE) 10 mg tablet prednisone 10 mg tablet PLEASE SEE ATTACHED FOR DETAILED DIRECTIONS 0 semaglutide (Rybelsus) 7 mg tabletIndications :WEIGHT LOSS every morning 1 spironolactone (ALDACTONE) 100 mg tabletIndications :hypertension Take 1 tablet (100 mg total) by mouth every morning 4 spironolactone (ALDACTONE) 50 mg tablet 05/13/2019 0 traZODone (DESYREL) 150 mg tabletIndications :major depressive disorder Take 1 tablet (150 mg total) by mouth nightly 4 venlafaxine (EFFEXOR) 75 mg tablet Take 75 mg by mouth daily. 0 09/02/2017 0 venlafaxine XR (EFFEXOR-XR) 37.5 mg 24 hr capsule TAKE 2 CAPSULES DAILY X 7 DAYS THEN 1 CAPSULE DAILY X 7 DAYS THEN STOP 09/27/2019 0 documented as of this encounter Discharge Disposition Disposition Code Departure Means Destination Discharge to home or self care documented in this encounter Miscellaneous Notes * Post-Procedure Note - Chaya Suarez MD - 12/19/2019 10:45 AM CDT Radiology Brief Post Procedure Note Attending: Dr. Garcia Airport Tower Controller: Dr. Suarez (breast imaging fellow), Dr. Sutton (diagnostic radiology tech) Sedation/Anesthesia: Local Pre-Op/Pre-Procedure Diagnosis: Left breast subareolar intraductal mass Post-Op/Post-Procedure Diagnosis: Same Procedure Performed: US-guided core biopsy of left breast mass with tissue marker placement (ribbonclip) Procedure Findings: See separate dictation Complications: None Estimated Blood Loss: < 30 ml Specimens: Two 14-gauge cores Condition: Stable Full report to follow. documented in this encounter Plan of Treatment Not on file documented as of this encounter Procedures Procedure Name Priority Date/Time Associated Diagnosis Comments MAMM POST CLIP PLACEMENT LEFT Schedule Routine, Read Routine (OP Routine) 12/19/2019 11:57 AM CDT Abnormal mammogram US GUIDED BREAST BIOPSY LEFT Schedule Routine, Read Routine (OP Routine) 12/19/2019 11:57 AM CDT Abnormal mammogram SURGICAL PATHOLOGY Routine 12/19/2019 11:38 AM CDT Abnormal mammogram documented in this encounter Results * Mammo Post Clip Placement Left (12/19/2019 11:57 AM CDT) Anatomical Region Laterality Modality Breast Left Mammography 12/19/2019 12:1 6 PM CDT Addenda Addendum by Donna Garcia MD on 12/21/2019 11:11 AM CDT ADDENDUM Addendum #1 issued at 12/21/2019 9:19 AM by Kathryn Penaloza, RN, RT for Dr. Donna Garcia: Histopathology from the core needle biopsy of the area of interest in the LEFT breast demonstrates fragments of benign appearing intraductal papilloma and associated dilated duct. ??No evidence of atypia or malignancy. ??This is benign and concordant with image findings. ??Age appropriate clinical follow up and screening is recommended. The patient was informed of the biopsy results and recommendations by referring provider Dr. Meggan Martinez on 12/20/2019 who will direct surgical management. Edited by: Kathryn Penaloza Electronically signed by: Donna Garcia M.D. Impressions 12/19/2019 1:19 PM CDT Successful core needle biopsy of the LEFT breast. ??Pathology is pending. Dictated by: Chaya Suarez M.D. The radiology attending physician has personally reviewed this study, and had reviewed and/or edited this written report and agrees with it. Electronically signed by: Donna Garcia M.D. Narrative 12/19/2019 1:19 PM CDT EXAMINATION: LEFT BREAST CORE BIOPSY UTILIZING SONOGRAPHIC GUIDANCE, PLACEMENT OF A BIOPSY TISSUE MARKER CLIP, AND LEFT FULL FIELD DIGITAL POST-PROCEDURE MAMMOGRAM HISTORY: ??Abnormal breast imaging. ??39-year-old female presenting with 2 weeks of left intermittent clear yellow discharge, and found to have left subareolar intraductal mass. 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 ??Ultrasound guided core needle biopsy of the recently detected left breast subareolar intraductal mass is requested to evaluate for malignancy. COMPARISON: Prior studies dating back to 09/08/2011. PROCEDURE AND FINDINGS: The risks and potential benefits of the procedures were discussed with the patient and written informed consent was obtained. After sterile preparation of the skin, 1% lidocaine was utilized for superficial anesthesia and 2% lidocaine with epinephrine was used for deeper anesthesia. ??A small skin incision was made with a #11 scalpel blade. ??A 14-gauge spring-loaded biopsy needle was then advanced through the skin incision to the edge of the lesion of interest at the 4 o'clock position in the subareolar left breast from a lateral approach utilizing sonographic guidance. A total of 2 tissue cores were obtained through the lesion. ??An UltraClip ribbon-shaped tissue marker clip was then placed at the biopsy site. Hemostasis was achieved. A sterile bandage and an ice pack were applied. The tissue cores were submitted to surgical pathology in formalin for histologic analysis. The patient tolerated the procedure well and without evidence of significant immediate complication. The patient was given verbal as well as written post procedural instructions prior to release from the department. ??A two-view LEFT digital mammogram obtained post procedure demonstrates that the tissue marker clip is in expected position. The attending radiologist, Dr. Donna Garcia M.D., was present throughout the entire procedure. ??Dr. Suarez (breast imaging fellow) and Dr. Sutton (diagnostic radiology tech) also participated in this examination. Procedure Note Donna Garcia MD - 12/19/2019 EXAMINATION: LEFT BREAST CORE BIOPSY UTILIZING SONOGRAPHIC GUIDANCE, PLACEMENT OF A BIOPSY TISSUE MARKER CLIP, AND LEFT FULL FIELD DIGITAL POST-PROCEDURE MAMMOGRAM HISTORY: Abnormal breast imaging. 39-year-old female presenting with 2 weeks of left intermittent clear yellow discharge, and found to have left subareolar intraductal mass. 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 Ultrasound guided core needle biopsy of the recently detected left breast subareolar intraductal mass is requested to evaluate for malignancy. COMPARISON: Prior studies dating back to 09/08/2011. PROCEDURE AND FINDINGS: The risks and potential benefits of the procedures were discussed with the patient and written informed consent was obtained. After sterile preparation of the skin, 1% lidocaine was utilized for superficial anesthesia and 2% lidocaine with epinephrine was used for deeper anesthesia. A small skin incision was made with a #11 scalpel blade. A 14-gauge spring-loaded biopsy needle was then advanced through the skin incision to the edge of the lesion of interest at the 4 o'clock position in the subareolar left breast from a lateral approach utilizing sonographic guidance. A total of 2 tissue cores were obtained through the lesion. An UltraClip ribbon-shaped tissue marker clip was then placed at the biopsy site. Hemostasis was achieved. A sterile bandage and an ice pack were applied. The tissue cores were submitted to surgical pathology in formalin for histologic analysis. The patient tolerated the procedure well and without evidence of significant immediate complication. The patient was given verbal as well as written post procedural instructions prior to release from the department. A two-view LEFT digital mammogram obtained post procedure demonstrates that the tissue marker clip is in expected position. The attending radiologist, Dr. Donna Garcia M.D., was present throughout the entire procedure. Dr. Suarez (breast imaging fellow) and Dr. Sutton (diagnostic radiology tech) also participated in this examination. IMPRESSION: Successful core needle biopsy of the LEFT breast. Pathology is pending. Dictated by: Chaya Suarez M.D. The radiology attending physician has personally reviewed this study, and had reviewed and/or edited this written report and agrees with it. Electronically signed by: Donna Garcia M.D. Meggan Martinez MD IMG MAMMO PROCEDURES Ed ited Result - Final * US Guided Breast Biopsy Left (12/19/2019 11:57 AM CDT) Anatomical Region Laterality Modality Breast Left Mammography 12/19/2019 12:1 6 PM CDT Addenda Addendum by Donna Garcia MD on 12/21/2019 11:11 AM CDT ADDENDUM Addendum #1 issued at 12/21/2019 9:19 AM by Kathryn Penaloza RN, RT for Dr. Donna Garcia: Histopathology from the core needle biopsy of the area of interest in the LEFT breast demonstrates fragments of benign appearing intraductal papilloma and associated dilated duct. ??No evidence of atypia or malignancy. ??This is benign and concordant with image findings. ??Age appropriate clinical follow up and screening is recommended. The patient was informed of the biopsy results and recommendations by referring provider Dr. Meggan Martinez on 12/20/2019 who will direct surgical management. Edited by: Kathryn Penaloza Electronically signed by: Donna Garcia M.D. Impressions 12/19/2019 1:19 PM CDT Successful core needle biopsy of the LEFT breast. ??Pathology is pending. Dictated by: Chaya Suarez M.D. The radiology attending physician has personally reviewed this study, and had reviewed and/or edited this written report and agrees with it. Electronically signed by: Donna Garcia M.D. Narrative 12/19/2019 1:19 PM CDT EXAMINATION: LEFT BREAST CORE BIOPSY UTILIZING SONOGRAPHIC GUIDANCE, PLACEMENT OF A BIOPSY TISSUE MARKER CLIP, AND LEFT FULL FIELD DIGITAL POST-PROCEDURE MAMMOGRAM HISTORY: ??Abnormal breast imaging. ??39-year-old female presenting with 2 weeks of left intermittent clear yellow discharge, and found to have left subareolar intraductal mass. 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 ??Ultrasound guided core needle biopsy of the recently detected left breast subareolar intraductal mass is requested to evaluate for malignancy. COMPARISON: Prior studies dating back to 09/08/2011. PROCEDURE AND FINDINGS: The risks and potential benefits of the procedures were discussed with the patient and written informed consent was obtained. After sterile preparation of the skin, 1% lidocaine was utilized for superficial anesthesia and 2% lidocaine with epinephrine was used for deeper anesthesia. ??A small skin incision was made with a #11 scalpel blade. ??A 14-gauge spring-loaded biopsy needle was then advanced through the skin incision to the edge of the lesion of interest at the 4 o'clock position in the subareolar left breast from a lateral approach utilizing sonographic guidance. A total of 2 tissue cores were obtained through the lesion. ??An UltraClip ribbon-shaped tissue marker clip was then placed at the biopsy site. Hemostasis was achieved. A sterile bandage and an ice pack were applied. The tissue cores were submitted to surgical pathology in formalin for histologic analysis. The patient tolerated the procedure well and without evidence of significant immediate complication. The patient was given verbal as well as written post procedural instructions prior to release from the department. ??A two-view LEFT digital mammogram obtained post procedure demonstrates that the tissue marker clip is in expected position. The attending radiologist, Dr. Donna Garcia M.D., was present throughout the entire procedure. ??Dr. Suarez (breast imaging fellow) and Dr. Sutton (diagnostic radiology tech) also participated in this examination. Procedure Note Donna Garcia MD - 12/19/2019 EXAMINATION: LEFT BREAST CORE BIOPSY UTILIZING SONOGRAPHIC GUIDANCE, PLACEMENT OF A BIOPSY TISSUE MARKER CLIP, AND LEFT FULL FIELD DIGITAL POST-PROCEDURE MAMMOGRAM HISTORY: Abnormal breast imaging. 39-year-old female presenting with 2 weeks of left intermittent clear yellow discharge, and found to have left subareolar intraductal mass. 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 Ultrasound guided core needle biopsy of the recently detected left breast subareolar intraductal mass is requested to evaluate for malignancy. COMPARISON: Prior studies dating back to 09/08/2011. PROCEDURE AND FINDINGS: The risks and potential benefits of the procedures were discussed with the patient and written informed consent was obtained. After sterile preparation of the skin, 1% lidocaine was utilized for superficial anesthesia and 2% lidocaine with epinephrine was used for deeper anesthesia. A small skin incision was made with a #11 scalpel blade. A 14-gauge spring-loaded biopsy needle was then advanced through the skin incision to the edge of the lesion of interest at the 4 o'clock position in the subareolar left breast from a lateral approach utilizing sonographic guidance. A total of 2 tissue cores were obtained through the lesion. An UltraClip ribbon-shaped tissue marker clip was then placed at the biopsy site. Hemostasis was achieved. A sterile bandage and an ice pack were applied. The tissue cores were submitted to surgical pathology in formalin for histologic analysis. The patient tolerated the procedure well and without evidence of significant immediate complication. The patient was given verbal as well as written post procedural instructions prior to release from the department. A two-view LEFT digital mammogram obtained post procedure demonstrates that the tissue marker clip is in expected position. The attending radiologist, Dr. Donna Garcia M.D., was present throughout the entire procedure. Dr. Suarez (breast imaging fellow) and Dr. Sutton (diagnostic radiology tech) also participated in this examination. IMPRESSION: Successful core needle biopsy of the LEFT breast. Pathology is pending. Dictated by: Chaya Suarez M.D. The radiology attending physician has personally reviewed this study, and had reviewed and/or edited this written report and agrees with it. Electronically signed by: Donna Garcia M.D. Meggan Martinez MD IMG MAMMO PROCEDURES Ed ited Result - Final * Surgical pathology (12/19/2019 11:38 AM CDT) Tissue (Breast biopsy, needle core) 12/19/2019 11:38 AM CDT Comment:Left Breast 4:00 Sub areolar Ultrasound Guided Core Biopsy/ BIRADS 4A Narrative PATHOLOGY [facility] - 12/20/2019 1:56 PM CDT EPIC results best viewed via link to PDF [facility] [place] [address] SURGICAL PATHOLOGY REPORT FINAL Patient Name: ?? CESARIO JEWELL V. Gender: ??F : ??1980 (Age: 39) Address: ??[address] [place] [id number] [facility] #: ??[id number] Taken:12/19/2019 Received:12/19/2019 Reported: 12/20/2019 Patient Type: [facility] Ancillary ?? Service: Radiology Location: [facility] CAM Physician(s): ??Donna Garcia M.D. Dr Martha Lawrence M.D. Meggan Martinez M.D. Diagnosis: Breast, left, 4:00 - subareolar, ultrasound-guided core biopsy ? - Fragments of benign appearing intraductal papilloma - Associated dilated duct ? - No evidence of atypia or malignancy sxr12/20/2019 11:12 By this signature, I attest that the above diagnosis is based upon my personal examination of the slides(and/or other material indicated in the diagnosis). Aris Iglesias MD Report Electronically Reviewed and Signed Out By ??Aris Iglesias MD 12/20/2019 13:56:28 Microscopic Description and Comment: Microscopic examination substantiates the above cited diagnosis. Shashank Morales MD History: The patient is a 39-year-old woman with abnormal mammogram of the left breast at the 4 o'clock position, subareolar, with a dilated duct and intraductal soft tissue lesion. ??The imaging features favor a benign intraductal papilloma; BIRADS score: 4A. 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 ?? Operative procedure: Ultrasound-guided left breast core biopsy. Specimen(s) Received: A: Left breast 4:00 subareolar ultrasound guided core biopsy Gross Description: Received in a single formalin filled container labeled with the patient's name and left breast 4 o'clock, subareolar ultrasound-guided core biopsy are two cores of soft, white-andrews tissue ranging in length from 1.9-2.0 EM, and ranging in diameter from 0.1-0.2 cm. ??Wrapped in sponges and stained with hematoxylin. ??Labeled A1. ??Jar 0. ??The total formalin fixation time = 6.5 hours. mr212/19/2019 15:01 PA(s): Jacinta Cabrera, MS, PA (ASCP) By this signature, I attest that the above diagnosis is based upon my personal examination of the slides(and/or other material). Addenda/Procedures The performance characteristics of some immunohistochemical stains, fluorescence in-situ hybridization tests and immunophenotyping by flow cytometry cited in this report (if any) were determined by the Surgical Pathology Department at [facility] as part of an ongoing quality control technician program and in compliance with federally [...] performance characteristics determined by the Surgical Pathology Department of [facility]. ??It has not been cleared or approved by the U. S. Food and Drug Administration. IMAGES AND SCANNED DOCUMENTS, IF INCLUDED, ONLY VIEWABLE IN PDF VERSION OF REPORT Meggan Martinez MD LAB PATHOLOGY ORDERABLE S Final Result PATHOLOGY [facility] [address]rd Floor [place], [place] [phone] documented in this encounter Visit Diagnoses Diagnosis Abnormal mammogram Abnormal mammogram, unspecified documented in this encounter Administered Medications Inactive Administered Medications - up to 3 most recent administrations Medication Order MAR Action Action Date Dose Rate Site lidocaine (XYLOCAINE) 10 mg/mL (1 %) injection Code/trauma/sedation medication, Starting on Wed12/19/19 at 1137, Intra-Procedure (IR), Indications: Administration of Local AnesthesiaIndications:Administ ration of Local Anesthesia Given 12/19/2019 11:37 AM CDT 5 mL Left Breast lidocaine-EPINEPHrine (XYLOCAINE with EPI) 2 %-1:200,000 preservative free injection Code/trauma/sedation medication, Starting on Wed12/19/19 at 1138 Given 12/19/2019 11:38 AM CDT 10 mL Left Breast documented in this encounter Care Teams Carpenter Assistant Relationship Specialty Start Date End Date Martha Lawrence MD [facility] [place] [address] [phone] PCP - General 02/24/19 Zoran Willams Family Medicine 05/18/18 documented as of this encounter
--- OUTSIDE RECORDS SUMMARY | 2024-05-13 22:23 | XMS_ITS | Encounter Summary ---
Author Organization [facility] Address [address] [place] [address] Phone Care Team Providers Care River Transportation Worker Name Role Phone Zoran Willams Tayo Unavailable Unavailable Martha Lawrence MD Primary Care Provider [phone]- [phone] Encounter Details Date Type Department Care Team (Late st Contact Info) Description 12/11/2019 Telephone [facility] [address] [place] [address] [place] [address] Ruba Adam [facility] Social History Tobacco Use Types Packs/Day Years Used Date Smoking Tobacco: Never Smokeless Tobacco: Never Alcohol Use Standard Drinks/Week Comments No 0 (1 standard drink = 0.6 oz pur e alcohol) Comments No Sex and Gender Information Value Date Recorded Sex Assigned at Not on file 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 Gender Identity Not on file Sexual Orientation Not on file documented as of this encounter Miscellaneous Notes * Telephone Encounter - Ruba Adam RMA - 12/11/2019 12:42 PM CDT Spoke with patient advised on updated visitor/COVID policy Completed COVID screen documented in this encounter Plan of Treatment Not on file documented as of this encounter Visit Diagnoses Not on filedocumented in this encounter Care Teams River Transportation Worker Relationship Specialty Start Date End Date Martha Lawrence MD [address] [place] [address] PCP - General 02/24/19 Zoran Willams Family Medicine 05/18/18 documented as of this encounter
--- OUTSIDE RECORDS SUMMARY | 2024-05-13 22:23 | XMS_ITS | Encounter Summary ---
Author Organization [facility] Address [address] [place] [address] Care Team Providers Care Consultant Internship Name Role Phone Zoran Willams Unavailable Unavailable Martha Lawrence MD Primary Care Provider [phone]- [phone] Encounter Details Date Type Department Care Team (Latest Contact Info) Description 12/11/2019 12:25 PM CDT - 12/11/2019 11:59 PM CDT Hospital Encounter [facility] [address] [place] [id number] Discharge Disposition: Discharge to home or self care Social History Tobacco Use Types Packs/Day Years Used Date Smoking Tobacco: Never Smokeless Tobacco: Never Alcohol Use Standard Drinks/Week Comments No 0 (1 standard drink = 0.6 oz pur e alcohol) Comments No Sex and Gender Information Value Date Recorded Sex Assigned at Not on file 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 ??There will be no report generated by a [facility] Radiologist. Narrative [facility] - 12/11/2019 12:25 PM CDT EXAMINATION: ??Images For Reference Purposes Only us Meggan Martinez MD IMG MAMMO PROCEDURES Fi nal Result [facility] documented in this encounter Visit Diagnoses Not on filedocumented in this encounter Care Teams Consultant Internship Relationship Specialty Start Date End Date Martha Lawrence MD [address] [employer] [place] [address] PCP - General 02/24/19 Zoran Willams Family Medicine 05/18/18 documented as of this encounter
--- OUTSIDE RECORDS SUMMARY | 2024-05-13 22:23 | XMS_ITS | Encounter Summary ---
Author Organization [facility] Healthcare Address [address] [place] [address] Care Team Providers Care Plastics Technician Name Role Phone Zoran Willams Unavailable Unavailable Martha Lawrence MD Primary Care Provider [phone] Encounter Details Date Type Department Care Team (Latest Contact Info) Description 01/08/2020 8:05 AM CDT - 01/08/2020 11:16 AM CDT Hospital Encounter [facility] Operating Room [facility] [address] [place] [id number] Meggan Martinez MD [address] [place] [id number] Abnormal mammogram; Nipple discharge Discharge Disposition: Discharge to home or self care Social History Tobacco Use Types Packs/Day Years Used Date Smoking Tobacco: Never Smokeless Tobacco: Never Alcohol Use Standard Drinks/Week Comments No 0 (1 standard drink = 0.6 oz pur e alcohol) Comments No Sex and Gender Information Value Date Recorded Sex Assigned at Not on file 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 Gender Identity Not on file Sexual Orientation Not on file documented as of this encounter Last Filed Vital Signs Vital Sign Reading Time Taken Comments Blood Pressure 117/79 01/08/2020 11:00 AM CDT Pulse 81 01/08/2020 11:00 AM CDT Temperature 36 ??C (96.8 ??F) 01/08/2020 10:20 AM CDT Respiratory Rate 16 01/08/2020 11:00 AM CDT Oxygen Saturation 97% 01/08/2020 11:00 AM CDT Inhaled Oxygen Concentration - - Weight 100.2 kg (221 lb) 01/08/2020 8:54 AM CDT Height 167.6 cm (5' 6 ) 01/08/2020 8:54 AM CDT Body Mass Index 35.67 01/08/2020 8:54 AM CDT documented in this encounter Discharge Diagnoses Diagnosis 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 NEOPLASM OF LEFT BREAST Nipple discharge - NIPPLE DISCHARGE Other sign and symptom in breast Other abnormal and inconclusive findings on diagnostic imaging of breast - OTHER ABNORMAL AND INCONCLUSIVE FINDINGS ON DIAGNOSTIC IMAGING OF BREAST Essential (primary) hypertension - ESSENTIAL (PRIMARY) HYPERTENSION Unspecified essential hypertension Polycystic ovarian syndrome - POLYCYSTIC OVARIAN SYNDROME Polycystic ovaries Unspecified glaucoma - UNSPECIFIED GLAUCOMA Other group home (current) drug therapy - OTHER FUR DRY CLEANER (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) 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) use of oral hypoglycemic drugs - FUR DRY CLEANER (CURRENT) USE OF ORAL HYPOGLYCEMIC DRUGS documented in this encounter Medications at Time [...] (10 mg total) by mouth nightly 10/31/2019 lamoTRIgine (LaMICtal) 100 mg tabletIndication s:MOOD STABILIZER [...] Refills Last Filled Start Date End Date traMADoL (ULTRAM) 50 mg tablet Take 1 tablet (50 mg total) by mouth every 6 (six) hours as needed (severe pain that does not improve with just Tylenol / Ibuprofen) 8 tablet 01/08/2020 1 documented in this encounter Discharge Disposition Disposition Code Departure Means Destination Discharge to home or self care documented in this encounter H&P Notes * Meggan Martinez MD - 01/08/2020 8:31 AM CDT I have reviewed the H&P, examined the patient, and endorse the findings as written. Plan of Care : Based on the above findings, I consider Cesario V Best to be an acceptable risk for : Procedure(s): LEFT MAGNETIC SEED LOCALIZATION EXCISIONAL BIOPSY LEFT REMOVAL MAG SEED Source Note - Meggan Martinez MD - 12/12/2019 2:00 PM CDT Meggan Martinez M.D., [facility] ?? Department of Surgery [facility] [address] ?? [place] [address] ? 12/12/19 CHIEF COMPLAINT: Evaluation of left nipple discharge. HISTORY OF PRESENT ILLNESS: Ms. Hassan is a 39 y.o. woman referred by Martha Lawrence MD who requested that I evaluate her for her left nipple discharge. The patient states that she began noticingspontaneous discharge from the left nipple several weeks ago. It is yellow or yellow-orange in color. She denies any obvious bloody discharge. She states that she has had a previous similar dischargefrom the right nipple that required excision for benign findings. She denies any further discharge from the right nipple following the duct excisioin. She denies any masses in either breast. She denies any change in the appearance of her breasts or the skin of her breasts. She has no other systemiccomplaints and otherwise feels well today. This is a pleasant 39-year-old woman who had her menarche at age 13. She has never been . She is still menstruating at her last menstrual cycle was approximately three weeks ago. She has never been on any hormone replacement therapy. She did use control pills for a short time in the past. Past Medical History: Diagnosis Date ??? Depression Depression ??? Glaucoma glaucoma ??? HX OTHER MEDICAL L/R cataract extraction ??? HX OTHER MEDICAL Detached Retina ??? HX OTHER MEDICAL Scar tissure removal Left Eye ??? HX OTHER MEDICAL myringotomy tubes ??? HX OTHER MEDICAL Menorrhagia ??? HX OTHER MEDICAL [place] teeth extraction 12/18 ??? HX OTHER MEDICAL 01-overhauler ??? HX OTHER MEDICAL right lens implant ??? HX OTHER MEDICAL OPTHO ??? HX OTHER MEDICAL milk duct removed right breast ; benign pap ??? 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 HX OTHER MEDICAL left Shoulder pain ??? HX OTHER MEDICAL fibroid removed ??? Hypertension Hypertension ??? Polycystic ovarian disease Past Surgical History: Procedure Laterality Date ??? CATARACT EXTRACTION Bilateral 1982 Cataract extraction ??? CHOLECYSTECTOMY 2009 Cholecystectomy ??? 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 HISTORY L/R cataract extraction: 1982 ??? 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 HISTORY Detached Retina: Surgically repaired; 1982 ??? 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 HISTORY Scar tissure removal Left Eye: 2008 ??? 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 HISTORY myringotomy tubes: 1989 ??? 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 HISTORY 01-overhauler: [facility] ??? 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 HISTORY right lens implant : Dr Barrios [facility] ??? 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 HISTORY 2011 breast bx R - benign ??? 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 HISTORY milk duct removed right breast ; benign papilloma: Dr Alonso [facility] ??? 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 HISTORY 1982 retinal reattachment [...] Brit Montes, DO Allergies Allergen Reactions ??? Sulfasalazine Hives and Rash ??? Sulfa (Sulfonamide Antibiotics) Eye irritation Reaction: itchy eyes, , ??? Sulfanilamide Other (See comments) Reaction: Conjunctivitis, ??? Oxycodone-Acetaminophen Diarrhea, Nausea Only and Vomiting ??? Penicillins Hives and Other (See comments) Reaction: Reaction: hives, , Reaction: Hives, , Social History Socioeconomic History ??? Marital status: Single Spouse name: None ??? Number of children: None ??? Years of education: None ??? Highest education level: None Occupational History ??? None Social Needs ??? Financial resource strain: None ??? Food insecurity Worry: None Inability: None ??? Transportation needs Medical: None Non-medical: None Tobacco Use ??? Smoking status: Never Smoker ??? Smokeless tobacco: Never Used Substance and Sexual Activity ??? Alcohol use: No ??? Drug use: No ??? Sexual activity: None Lifestyle ??? Physical activity Days per week: None Minutes per session: None ??? Stress: None Relationships ??? Social connections Talks on phone: None Gets together: None Attends spiritism service: None Active member of club or organization: None Attends meetings of clubs or organizations: None Relationship status: None ??? Intimate partner violence Fear of current or ex partner: None Emotionally abused: None Physically abused: None Forced sexual activity: None Other Topics Concern ??? ADL RESPONSE ??? ADL RESPONSE ??? ADL RESPONSE Yes Comment: 100 oz coffee tea /day ??? ADL RESPONSE ??? ADL RESPONSE ??? ADL RESPONSE ??? ADL RESPONSE ??? ADL RESPONSE ??? ADL RESPONSE ??? ADL RESPONSE ??? ADL RESPONSE ??? ADL RESPONSE ??? ADL RESPONSE ??? ADL RESPONSE Social History Narrative ??? None Family History Problem Relation Age of Onset [...] Renal disease; ??? Ovarian cancer Paternal Grandmother ROS: Pertinent items are noted in HPI. [...] skin changes, nipple discharge, or axillary adenopathy. Theleft breast is without any dominant masses, skin changes, or axillary adenopathy. However, compression of the left nipple reveals a voluminous amount of yellow discharge from a four o'clock duct. IMAGING: I personally reviewed all of the imaging today. She underwent bilateral diagnostic mammograms, tomosynthesis, and a left breast ultrasound. The right breast was given a category 1 and the left breast is given a category 4A. There is a 2.1 cm intraductal mass in the left subareolar breast at the 4 o'clock position. IMPRESSION/RECOMMENDATION: Ms. Hassan is a 39 y.o. woman who presents today for consultation regarding her left nipple discharge. I reviewed the clinical and imaging findings with her. I explained to her that I do consider this to be a pathologic finding in that it is spontaneous, from a single spotin a single nipple, and associated with an imaging finding. I have recommended that we initially proceed with a core biopsy of the left intraductal mass seen on imaging today. I have made arrangements for this to be performed in our radiology department on December 18. I should have the final pathology approximately 48 hours later and I will contact her with this. If this confirms a benign finding or a papilloma, I would still recommend complete excision due to her pathologic nipple discharge. If this confirms a papilloma, we can simply perform a seed localization excision. If the findings are benign, I would recommend a central duct excision for definitive diagnosis. Certainly, if there were to be found a malignancy, we would have to discuss in more detail. I answered all of her questions thoroughly and she does seem pleased with this plan of approach. I encouraged her to contact me inthe interim if any new questions or concerns arise. 12/20/2019 ADDENDUM: I reviewed the left breast core biopsy pathology with her. This revealed fragments of benign appearing intraductal papilloma. There was no atypia or malignancy. We discussed that this is a benign finding. However, she continues to have pathologic nipple discharge. Thus, I would recommend a left seed localization breast excisional biopsy. We can perform essentially a left central duct excision with this as well. I explained the risks, benefits, and alternatives of this procedure which include, but are not limited to: bleeding, infection, and anesthetic risk. She understandsand wishes to proceed. I will make arrangements to schedule this in the operating room as soon as possible. I will also arrange for her evaluation in the pre-operative center. I answered all of her questions. I encouraged her to contact me in the interim if any new questions or concerns arise. Meggan Martinez MD documented in this encounter Miscellaneous Notes * Op Note - Meggan Martinez MD - 01/08/2020 9:32 AM CDT 01/08/20 ATTENDING SURGEON Meggan Martinez M.D. ?? FIRST INFORMATION MANAGEMENT OFFICER Megan Mancilla MD ?? ANESTHESIA Monitored anesthesia with local anesthetic. ?? PREOPERATIVE DIAGNOSIS Left nipple discharge, abnormal mammogram, and core biopsy ?? POSTOPERATIVE DIAGNOSIS Left nipple discharge, abnormal mammogram and core biopsy ?? PROCEDURE 1. Left seed localization excisional breast biopsy ?? INDICATION FOR PROCEDURE Cesario Hassan is a 39 y.o. woman who presented with pathologic left nipple discharge. Imaging revealed an abnormality and core biopsy revealed papilloma. Due to the upgrade risk for malignancy and the pathologic discharge, I did recommend excision. She presents today for that purpose. ?? FINDINGS The left breast tissue was excised using seed localization. ??Specimen radiograph demonstrated thatthe lesion and clip were located within the specimen. ?? STEPS OF THE PROCEDURE Cesario Hassan was previously taken to the [facility] where she underwent seed localization of her abnormality. ??Today, she was then brought to the operating room and placed supine on the operating room table. ??Bilateral sequential compression devices were not necessary due to the sedation nature of this procedure but a single dose of Clindamycin 900 mg was administered intravenously 20 minutes prior to the incision time. ??Sedation was then initiated with Propofol and Fentanyl and the patient was prepped and draped in the standard surgical fashion. ??We directed our attention to the left breast. ??The Magseed was used to identify the location of the abnormality in the subareolar breast. Thus, a circumareolar incision was planned centered around the five o'clock position. Thiswas infiltrated with a mixture of 1% plain lidocaine and 0.5% plain Marcaine to create a field block. The incision was made and carried down through the dermis with electrocautery. ??The Magseed was then used to excise tissue superior, inferior, medial, and lateral to it all the way down posterior to it. The tissue was then transected from the posterior attachments. The specimen was then marked with a short stitch on the superior margin and a long stitch on the lateral margin and [facility] ??Specimen radiograph demonstrated that the lesion and clip were located within the specimen. ??Attention was then turned to the wound. ??Aggressive hemostasis was obtained with electrocautery. ??The wound was irrigated with copious amounts of sterile saline. ??The deep dermal layer was then reapproximated with interrupted 3-0 Vicryl stitches. ??The skin was reapproximated with a running subcuticular using 4-0 Monocryl. ??Surgical glue dressing was applied. ??The patient tolerated this procedure well was awakened and transferred to the recovery room. ?? SPECIMENS REMOVED 1. The left breast tissue which was marked with a short stitch on the superior margin and a long stitch on the lateral margin. ?? ESTIMATED BLOOD LOSS minimal ?? IV FLUIDS 1000 mL of crystalloid. ?? SPONGE, INSTRUMENT, NEEDLE COUNTS Were correct at the end of the procedure. ?? CONDITION OF PATIENT ON DISCHARGE FROM THE OPERATING ROOM Stable. ?? Please note that I, Meggan Martinez, was present and scrubbed from the time of skin incision through all critical aspects of the procedure which included removal of the specimen and confirmation of the specimen radiograph. I was not present for the non-critical skin closure, though Dr. Rios was immediately available for that non-critical portion. * Pre-Procedure Instructions - Astrid Shahid NP - 12/29/2019 2:25 PM CDT Center for Preoperative Assessment and Planning CPAP Clinic Location: [facility] The night before your surgery: * Do not eat or drink anything after midnight. This includes candy, mint, gums, chewable antacids (TUMS, Rolaids) and cough drops The morning of your surgery: * You may brush your teeth and rinse your mouth out. * Do not wear jewelry, body piercings, makeup, hairpins, false eyelashes or contact lenses to the hospital. * Leave any valuables at home or with your family. You may want to bring a credit card if you want to use our Mobile Pharmacy for your discharge medications. Outpatient Surgery: * You must have a responsible adult drive you home and stay with you for 24 hours after your surgery * You cannot be alone at home or in a hotel * Please call your surgeon's office if you do not have someone to drive you home and/or stay with you after surgery Instructions For Your Medications: Pre-Surgery Instructions: Medication Instructions ??? albuterol HFA (PROVENTIL HFA,VENTOLIN HFA,PROAIR HFA) 90 mcg/actuation inhaler Take on day of surgery if needed ??? buPROPion XL (WELLBUTRIN XL) 150 mg 24 hr tablet Take morning of surgery ??? cholecalciferol (VITAMIN D-3) 5,000 unit tablet Don't take on day of surgery ??? escitalopram (LEXAPRO) 20 mg tablet Take morning of surgery ??? metFORMIN XR (GLUCOPHAGE XR) 500 mg 24 hr tablet Don't take on day of surgery ??? semaglutide (Rybelsus) 7 mg tablet Stop taking 1 week prior to surgery ??? spironolactone (ALDACTONE) 100 mg tablet Don't take on day of surgery General Instructions For Medications: ?? Stop all of these medications 7-14 days prior to your surgery: Vitamin E, Herbal medicines, DietPills ?? If you use inhalers, please bring them with you on the day of your procedure. ?? If you have pain, you may [...] You have started taking any new medications * Perioperative Nursing Note - Imani Messer RN - 12/28/2019 11:05 AM CDT Center for Preoperative Assessment and Planning Perioperative Nursing Note Telephone Preoperative Evaluation ([facility]) - TELEPHONE ONLY, NO PHYSICAL EXAM Date: 12/28/19 Vitals: 12/28/19 1055 Weight: 100.2 kg (221 lb) Height: 167.6 cm (5' 6 ) CHEST CIRCUMFERENCE: NA Social History Tobacco Use Smoking Status Never Smoker Smokeless Tobacco Never Used Substance and Sexual Activity Alcohol Use No Substance and Sexual Activity Drug Use No Outpatient Medications Marked as Taking for the 01/08/20 encounter (Hospital Encounter) with Meggan Martinez MD Medication Sig Dispense Refill ??? albuterol HFA [...] No Wound (LDAs) Type of Wound (LDA): Surgical site SCREENINGS Robbins Fall Risk Score (Retired): 15 Pia index score: 100 Is someone currently physically or emotionally hurting you or your family?: Denies NUTRITION PATIENT CARE PLANNING Advance Directives (For Healthcare) Advance Directive: Patient does not have advance directive Assistive Devices/DME: Eyeglasses Discharge Planning Type of Residence: Private residence Living Arrangements: Spouse/significant other Support Systems: Spouse/significant other Patient expects to be discharged to:: Private residence COVID Screening Covid-19 Screening In the last 10 days have you had any new or worsening cough, SOB, fever (>=100F), body aches, loss of taste or smell, diarrhea or vomiting, or sore throat: No Have you had close contact with anyone with confirmed or suspected COVID-19 in the past 3 weeks?: No Do you live in or work in a congregate living facility (ex. assisted living/fpc facility, penitentiary, alf)?: No Have you previously tested positive for COVID-19? No TESTING PLAN-See Instructions for plan We recommend you Self-Isolate after COVID Testing: Stay at home, if possible until your surgery date. Maintain a 6 foot distance from other people (social distancing). Avoid touching your eyes, nose and mouth with unwashed hands. Wash your hands often with soap and water for at least 20 seconds. Use an alcohol- based hand solar fabrication technician that contains at least 60% alcohol if soap and water are not available. ADDITIONAL COMMENTS/ FOLLOW UP HAS PROSTHESIS IN LEFT EYE SOCKET. * Pre-Procedure Instructions - Imani Messer RN - 12/28/2019 11:01 AM CDT PRE-SURGICAL INSTRUCTIONS ??? General Information ?? Surgery location provided to patient. ?? Arrival time and surgical time will be provided by your surgeon. ?? Wear something clean, loose, comfortable and easy to get in and out of. ?? Leave your valuables and any jewelry at home (No metal or piercings are allowed in the operatingroom) ?? Bring your insurance card, a photo ID (like a Financial Service Rep's license) and a method of payment for any insurance copay, deductible, or copay for discharge medications. ?? Bring a complete, up to date list of all of your medications including any over the counter medications or supplements you may take. ? How To Prepare Your Skin For Surgery Antiseptic/antibacterial soap will decrease the amount of germs on your skin. It is important to minimize the risk of getting an infection by doing the following: ?? Change all the linens on the bed the night before surgery so you are sleeping on clean fresh sheets and pillowcases. ?? Shower the evening before and the morning of surgery with an antibacterial soap such as Dial or a surgical soap known as chlorhexidine (Hibiclens). You can purchase this soap at any pharmacy or department store or come by our CPAP clinic and we will give it to you free of charge. Do not use thissoap on your face or hair. ?? Wash your hair and face with your regular shampoo (no conditioners) and facial cleanser. ?? Take a shower using ?? cup (2 oz.) of antiseptic soap applied to a clean fresh washcloth. Scrub your entire body from the neck down. If you can't reach the surgical site, such as your back, have someone help you with your shower. Step out of the water and leave soap on your skin for 2 minutes prior to rinsing off. Rinse thoroughly and dry yourself off with a clean fresh dry towel. ?? Wear clean clothes or pajamas to sleep in and on morning of surgery. ?? Nothing extra on the skin or hair such as deodorant, makeup, hair products, lotions, powders, Vaseline, creams, or perfumes the evening before and the morning of surgery. ?? The morning of the surgery repeat the shower process with the remaining ?? cup (2 oz.) of surgical scrub using another fresh wash cloth and towel. ?? Do not shave the morning of surgery. ?? REMEMBER no deodorant, make-up, lotions, powders, creams, Vaseline, oils, conditioners or hair products the morning of the surgery. COVID TESTING PLAN COVID Test set up [facility] on JAN 03. In-basket message sent to [employer]. Patient aware of plan. If you need to reschedule your COVID test to a different location or if your surgery gets rescheduled, you MUST call [phone] Wednesday-Wednesday 8am-4:30pm to get your COVID testing rescheduled or your lab order will not be available at Testing Sites. COVID Testing is only valid for up to 96 hours prior to surgery date, unless otherwise specified. We recommend you Self-Isolate after COVID Testing: Stay at home, if possible until your surgery date. Maintain a 6 foot distance from other people (social distancing). Avoid touching your eyes, nose and mouth with unwashed hands. Wash your hands often with soap and water for at least 20 seconds. Use an alcohol- based hand solar fabrication technician that contains at least 60% alcohol if soap and water are not available. All visitors/patients are being asked to wear a clean mask when entering the hospital. COVID 19 Updates & Visitor Policy: Please access [email or web address] for the most updated information. Surgery Times: ??? For patients [facility], if your surgeon's office has not notified you of your surgery time by NOON THE BUSINESS DAY BEFORE your surgery, please call [phone] and ask for your surgeon's office DR MARTINEZ documented in this encounter Plan of Treatment Not on file documented as of this encounter Procedures Procedure Name Priority Date/Time Associated Diagnosis Comments SURGICAL PATHOLOGY Routine 01/08/2020 9: 43 AM CDT Abnormal mammogram Nipple discharge REMOVAL MAG SEED 01/08/2020 9:17 AM CDT Abnormal mammogram Nipple discharge Case Notes 01/02: Case line up per office -bt Special Needs Positioning Aids- Arm RestAdditional Equipment- Magseed MAGNETIC SEED LOCALIZATION EXCISIONAL BIOPSY 01/08/2020 9:17 AM CDT Abnormal mammogram Nipple discharge Case Notes 01/02: Case line up per office -bt Special Needs Positioning Aids- Arm RestAdditional Equipment- Magseed POCT HCG, URINE Routine 01/08/2020 8:52 AM CDT documented in this encounter Results * Surgical pathology (01/08/2020 9:43 AM CDT) Tissue (Breast, simple mastectomy) 01/08/2020 9:43 AM CDT Comment:Short stitch superio r Long stitch lateral Narrative PATHOLOGY [facility] - 01/13/2020 4:14 PM CDT EPIC results best viewed via link to PDF [facility] [place] [address] SURGICAL PATHOLOGY REPORT FINAL Patient Name: ?? CESARIO HASSAN V. Gender: ??F : ??1980 (Age: 39) Address: ??[address], [place] ??[address] Hospital #: ??[id number] Taken:01/08/2020 Received:01/08/2020 Reported: 01/13/2020 Patient Type: [facility] SDS ?? Service: Surgery Location: [facility] Physician(s): ??Meggan Martinez M.D. Dr Martha Lawrence M.D. Diagnosis: Breast, left, partial mastectomy ? - Intraductal papilloma ? - Papilloma with no atypical or malignant features - Papilloma present at posterior resection margin ? - Duct dilation with inspissated material, and periductal chronic inflammation, consistent with duct ectasia - Usual ductal hyperplasia - Fibrocystic changes - Fibroadenoma - Biopsy site changes including clip - Resection margins negative for malignancy - No evidence of atypia or malignancy zxl/01/11/2020 14:43 By this signature, I attest that the above diagnosis is based upon my personal examination of the slides(and/or other material indicated in the diagnosis). Aris Iglesias MD Report Electronically Reviewed and Signed Out By ??Aris Iglesias MD 01/13/2020 16:14:40 Microscopic Description and Comment: Microscopic examination substantiates the above cited diagnosis. Sanju Lewis MD, PhD History: The patient is a 39-year-old woman who presented with an abnormal mammogram and nipple discharge. ??A prior core biopsy demonstrated intraductal papilloma ([id number]). ??Operative procedure: Left magnetic seed localized excisional biopsy. Specimen(s) Received: A: Left breast tissue Gross Description: Received in formalin labeled with the patient's name, date of and left breast tissue is an oriented segment of fibrous fatty tissue measuring 5.3 cm mediolaterally, 5.3 cm superior inferiorly and 1.9 cm anterior posteriorly. ??The specimen is oriented with a short suture indicating the superior margin and a long suture indicating the lateral margin and the specimen is inked as follows: Lateralblue, medialgreen, posteriorblack, anterioryellow. ??The specimen is sectioned from superior to inferior into 12 slices to show a slightly firm fibrotic area on slices 15 measuring 2 cm in greatest dimension with adjacent hemorrhagic area measuring 1.9 cm along the anterior superior aspect of the specimen. ??Located on slice 11 towards the anterior aspect of the specimen is a coil shaped biopsy clip and the surrounding tissue is yellow fatty unremarkable. ?? Received in the same container is an unoriented 3.7 x 2.5 x 1.7 cm yellow fibrous fatty tissue fragmentinked black entirely and sectioned to show a yellow fatty, focally fibrous peripheral cut surface. ??The fibrous area measures 2.5 x 1.0 x 0.7 cm and abuts the black inked. ??Within this fibrous area, a ribbon shaped clip and a Magseed are identified. ?? Labeled A1 to A17 - oriented specimen entirely submitted from superior to inferior with sectioned pairs 89, 1011, 1213, 1415, 1617 (superior margin in A1, area of coil shaped biopsy clip in A14, inferior margin in A16A17); A18 to A21 - detached tissue fragment entirely submitted from one end to the other (area of ribbon shaped biopsy clip and Magseed in A19). ??Jar 0. ??Formalin fixation time: 32 [facility]. [facility]01/09/2020 10:17 PA(s): Caron Sampson MS, DANA ([facility]) By this signature, I attest that the above diagnosis is based upon my personal examination of the slides(and/or other material). Addenda/Procedures The performance characteristics of some immunohistochemical stains, fluorescence in-situ hybridization tests and immunophenotyping by flow cytometry cited in this report (if any) were determined by the Surgical Pathology Department at [facility] as part of an ongoing air quality consultant program and in compliance with federally mandated [...] determined by the Surgical Pathology Department of [facility]. ??It has not been cleared or approved by the U. S. Food and Drug Administration. IMAGES AND SCANNED DOCUMENTS, IF INCLUDED, ONLY VIEWABLE IN PDF VERSION OF REPORT Meggan Martinez MD LAB PATHOLOGY ORDERABLE S Final Result Performing Organization Address City/State/[facility] Co de Phone Number PATHOLOGY [facility] 3rd Floor [place], [place] [phone] * POCT hCG, urine (01/08/2020 8:52 AM CDT) HCG, ur, POC Negative Lot Number [id number] QC Backgroud Clear Acceptable QC Control Line Acceptable Urine 01/08/2020 8:5 2 AM CDT Astrid Shahid NP POINT OF CARE TEST ORD ERABLES Final Result documented in this encounter Visit Diagnoses Diagnosis Abnormal mammogram Abnormal mammogram, unspecified Nipple discharge Other sign and symptom in breast documented in this encounter Administered Medications Inactive Administered Medications - up to 3 most recent administrations Medication Order MAR Action Action Date Dose Rate Site clindamycin (CLEOCIN) 900 mg in sodium chloride 0.9% 100 mL IVPB 900 mg, intravenous, at 212 mL/hr, Administer over 30 Minutes, Once, On 01/08/20 at 0930, For 1 dose, Pre-Op, Indications: Prophylaxis, SurgicalIndications:Prophylaxis, Surgical Bolus 01/08/2020 9:10 AM CDT 900 mg New Bag 01/08/2020 9:02 AM CDT 900 mg 212 mL/hr Lactated Ringer's (LR) infusion 30 mL/hr, intravenous, Continuous, Starting on Wed01/08/20 at 0930, Pre-Op Rate/Dose Verify 01/08/2020 9:07 AM C DT New Bag 01/08/2020 9:02 AM CDT 30 mL/hr 30 mL/hr sodium chloride 0.9% flush 0.5-20 mL 0.5-20 mL, intra-catheter, As needed, line care, Starting on Wed01/08/20 at 0852, Pre-Op, Flush volume based on line type and size. Flush before and after each use. sodium chloride 0.9% flush 0.5-20 mL 0.5-20 mL, intra-catheter, As needed, line care, Starting on Wed01/08/20 at 0852, Pre-Op, Flush volume based on line type and size. Flush before and after each use. documented in this encounter Discontinued Medications Medication Sig Discontinue Reason Start Date End Da te amLODIPine (NORVASC) 10 mg tablet 03/13/2019 12/28/2019 fluticasone propionate (FLONASE) 50 mcg/actuation nasal sprayIndications:Nasal turbinate hypertrophy Administer 2 sprays into each nostril daily 05/20/2019 12/28/2019 fluticasone propionate (FLONASE) 50 mcg/actuation nasal sprayIndications:Acute recurrent maxillary sinusitis,ETD (Eustachian tube dysfunction), left Administer 2 sprays into each nostril daily 05/26/2019 12/28/2019 prazosin (MINIPRESS) 1 mg capsule TAKE 1 CAPSULE BY MOUTH EVERYDAY AT BEDTIME 09/27/2019 12/28/2019 predniSONE (DELTASONE) 10 mg tablet prednisone 10 mg tablet PLEASE SEE ATTACHED FOR DETAILED DIRECTIONS 12/28/2019 spironolactone (ALDACTONE) 50 mg tablet 05/13/2019 12/28/2019 venlafaxine (EFFEXOR) 75 mg tablet Take 75 mg by mouth daily. 09/02/2017 12/28/2019 venlafaxine XR (EFFEXOR-XR) 37.5 mg 24 hr capsule TAKE 2 CAPSULES DAILY X 7 DAYS THEN 1 CAPSULE DAILY X 7 DAYS THEN STOP 09/27/2019 12/28/2019 documented as of this encounter Active and Recently Administered Medications Times are shown in CDT. Scheduled Medication Order 01/06/2020 01/07/2020 01/08/2020 clindamycin (CLEOCIN) 900 mg in sodium chloride 0.9% 100 mL IVPB (COMPLETED) 900 mg, intravenous, at 212 mL/hr, Administer over 30 Minutes, Once, On Wed01/08/20 at 0930, For 1 dose, Pre-Op, Indications: Prophylaxis, Surgical 0902 (New Bag - Prov ider: Kay Camilo, SANJANA)0910 (Bolus - Provider: Carol Ann Mauricio CRNA)1000 (Stopped - Provider: Shakira Parsons, SANJANA) Continuous Medication Order 01/06/2020 01/07/2020 01/08/2020 Lactated Ringer's (LR) infusion (CANCELED) 30 mL/hr, intravenous, Continuous, Starting on Wed01/08/20 at 0930, Pre-Op 0902 (New Bag - Prov ider: Kay Camilo RN)0907 (Rate/Dose Verify - Provider: Carol Ann Mauricoi CRNA)0951 (Anesthesia Volume Adjustment - Provider: Carol Ann Mauricio CRNA)1026 (Stopped - Provider: Shakira Parsons, SANJANA) PRN Medication Order 01/06/2020 01/07/2020 01/08/2020 fentaNYL (SUBLIMAZE) preservative free injection 50 mcg 50 mcg, intravenous, Once as needed, uncontrolled pain on PACU admission, Starting on Wed01/08/20 at 1019, For 1 dose, Phase I, Then proceed to PACU 1st line analgesic., Indications: Pain haloperidol (HALDOL) injection 1 mg 1 mg, intravenous, Once as needed, nausea, vomiting, Starting on Wed01/08/20 at 1019, For 1 dose, Phase I, If nausea/vomiting not relieved by ondansetron within 30 minutes or if ondansetron has been given within the last 6 hours. labetaloL (NORMODYNE,TRANDATE) injection 5 mg 5 mg, intravenous, at 30 mL/hr, Administer over 2 Minutes, Every 10 min PRN, high blood pressure, Starting on Wed01/08/20 at 1019, Phase I, Max cumulative dose 20 mg. Dose if systolic blood pressure greater than 180 AND HR greater than 70. lidocaine (XYLOCAINE) 20 mL, bupivacaine (MARCAINE) 20 mL solution (CANCELED) As needed, Starting on Wed01/08/20 at 0937, Intra-Op 0937 (Given - Provid er: Meggan Martinez MD) naloxone (NARCAN) 0.4 mg/mL injection 0.04-0.4 mg 0.04-0.4 mg, intravenous, Once as needed, other, excessive sedation/respiratory depression, Starting on Wed01/08/20 at 1019, For 1 dose, Phase I, Dilute 0.4 mg with 9 mL NS (final concentration 0.04 mg/mL). For respiratory depression (respiratory rate less than 6), administer 0.4 mg IVP over 30 seconds. For excessive sedation administer 0.04 mg (1 mL) every 1 minute until desired level of alertness. For IV, administer over 30 seconds., Indications: Opioid Toxicity ondansetron (ZOFRAN) injection 4 mg 4 mg, intravenous, Administer over 2 Minutes, Once as needed, nausea, vomiting, Starting on Wed01/08/20 at 1019, For 1 dose, Phase I, Proceed to haloperidol if ondansetron has been given within the last 6 hours. sodium chloride 0.9 % irrigation (CANCELED) As needed, Starting on Wed01/08/20 at 0936, Intra-Op 0936 (Given - Provid er: Meggan Martinez MD) sodium chloride 0.9% flush 0.5-20 mL 0.5-20 mL, intra-catheter, As needed, line care, Starting on Wed01/08/20 at 0852, Pre-Op, Flush volume based on line type and size. Flush before and after each use. sodium chloride 0.9% flush 0.5-20 mL 0.5-20 mL, intra-catheter, As needed, line care, Starting on Wed01/08/20 at 0852, Pre-Op, Flush volume based on line type and size. Flush before and after each use. documented in this encounter Orders Medications Ordered That Ben ht Not Have Been Administered Count Last Ordered Date First Ordered Date fentaNYL (SUBLIMAZE) preserv ative free injection 50 mcg 1 01/08/2020 haloperidol (HALDOL) injection 1 mg 1 01/07 labetaloL (NORMODYNE,TRANDAT E) injection 5 mg 1 01/08/2020 lidocaine (XYLOCAINE) 20 mL, bupivacaine (MARCAINE) 20 mL solution 1 01/08/2020 naloxone (NARCAN) 0.4 mg/mL injection 0.04-0.4 mg 1 01/08/2020 ondansetron (ZOFRAN) injection 4 mg 1 01/07 sodium chloride 0.9 % irrigation 1 01/08/20 20 sodium chloride 0.9% flush 0.5-20 mL 2 12/10 Diet Count Last Ordered Date First Orde red Date ADULT DISCHARGE DIET 1 01/08/2020 Nursing Count Last Ordered Date First Orde red Date DISCHARGE ACTIVITY 4 01/08/2020 DISCHARGE CALL PROVIDER 6 01/08/2020 DISCHARGE DRESSING 4 01/08/2020 documented in this encounter Care Teams Plastics Technician Relationship Specialty Start Date End Date Martha Lawrence MD [address] [facility] [place] [address] PCP - General 02/24/19 Zoran Willams Family Medicine 05/18/18 documented as of this encounter
--- OUTSIDE RECORDS SUMMARY | 2024-05-13 22:23 | XMS_ITS | Encounter Summary ---
Author Organization [facility] Healthcare Address [address] [place] [address] Care Team Providers Care Tinning Machine Set Up Operator Name Role Phone Zoran Willams Unavailable Unavailable Martha Lawrence MD Primary Care Provider [phone] Encounter Details Date Type Department Care Team (Late st Contact Info) Description 01/08/2020 9:20 AM CDT - 01/08/2020 10:35 AM CDT Surgery [facility] Operating Room [facility] [address] [place] [id number] Meggan Martinez MD [address] [place] [id number] LEFT MAGNETIC SEED LOCALIZATION EXCISIONAL BIOPSY Surgery Details Date/Time Status Location OR Service Patient Class Case Cl ass Case Type Trauma Case? 01/08/2020 9:20 AM Posted [facility] OR POD 4 C Oncology Outpatient Elective Panel 1 Procedure LRB Anes Op Region Wound Class Comments LEFT MAGNETIC SEED LOCALIZATION EXCISIONAL BIOPSY Left Monitor Anesthesia Care Breast Class I - Clean LEFT REMOVAL MAG SEED Left Monitor An esthesia Care Breast Class I - Clean Surgeon Surgeon Role Service Panel Meggan Martinez MD Primary Oncology 1 Megan Patel MD Resident - Assisting General S urgery 1 Case Notes 01/02: Case line up per office -bt Special Needs Positioning Aids- Arm RestAdditional Equipment- Magseed documented in this encounter Social History Tobacco Use Types Packs/Day Years Used Date Smoking Tobacco: Never Smokeless Tobacco: Never Alcohol Use Standard Drinks/Week Comments No 0 (1 standard drink = 0.6 oz pur e alcohol) Comments No Sex and Gender Information Value Date Recorded Sex Assigned at Not on file Legal 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 Gender Identity Not on file Sexual Orientation Not on file documented as of this encounter Last Filed Vital Signs Vital Sign Reading Time Taken Comments Blood Pressure 101/61 01/08/2020 10:30 AM CDT Pulse 73 01/08/2020 10:30 AM CDT Temperature 36 ??C (96.8 ??F) 01/08/2020 10:20 AM CDT Respiratory Rate 15 01/08/2020 10:30 AM CDT Oxygen Saturation 94% 01/08/2020 10:30 AM CDT Inhaled Oxygen Concentration - - Weight 100.2 kg (221 lb) 01/08/2020 8:54 AM CDT Height 167.6 cm (5' 6 ) 01/08/2020 8:54 AM CDT Body Mass Index 35.67 01/08/2020 8:54 AM CDT documented in this encounter Medications at Time [...] 12/12/2019 2:00 PM CDT Meggan Martinez M.D., [facility] ?? Department of Surgery [address] [place] [address] [address] ?? [place] [address] ? 12/12/19 CHIEF COMPLAINT: Evaluation of left [...] OTHER MEDICAL Menorrhagia ??? HX OTHER MEDICAL Beltrami teeth extraction 12/18 ??? 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 HX OTHER MEDICAL right lens implant ??? HX OTHER MEDICAL OPTHO ??? HX OTHER MEDICAL milk duct removed right breast ; benign pap ??? 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 HX OTHER MEDICAL left Shoulder pain ??? HX OTHER MEDICAL fibroid removed ??? Hypertension Hypertension ??? Polycystic ovarian disease Past Surgical History: Procedure Laterality Date ??? CATARACT EXTRACTION Bilateral 1981 Cataract extraction ??? CHOLECYSTECTOMY 2009 Cholecystectomy ??? 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 HISTORY L/R cataract extraction: 1982 ??? 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 HISTORY Detached Retina: Surgically repaired; 1982 ??? 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 HISTORY Scar tissure removal Left Eye: 2008 ??? 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 HISTORY myringotomy tubes: 1989 ??? 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 HISTORY right lens implant -2011: Dr Barrios - [facility] ??? 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 HISTORY 2011 breast bx R - benign ??? 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 HISTORY milk duct removed right breast ; benign papilloma: Dr Alonso - [facility] ??? 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 HISTORY 1982 retinal [...] on phone: None Gets together: None Attends [employer]aritan service: None Active member of club or [...] ATTENDING SURGEON Meggan Martinez M.D. ?? FIRST LATHING SUPERVISOR Megan Mancilla MD ?? ANESTHESIA Monitored anesthesia [...] Cesario Hassan was previously taken to the [facility] where she underwent seed localization of her [...] and was sent back [facility]. ??Specimen radiograph demonstrated that the lesion and [...] Preoperative Assessment and Planning CPAP Clinic Location: [facility] The night before your surgery: * Do [...] in a congregate living facility (ex. assisted living/chcf facility, nursing home, intermediate)?: No Have you previously tested positive for [...] 20 seconds. Use an alcohol- based hand forestry biology specialist that contains at least 60% alcohol if [...] insurance card, a photo ID (like a Mural Painter's license) and a method of payment for [...] COVID TESTING PLAN COVID Test set up [facility] on JAN 03. In-basket message sent to [employer]. Patient aware of plan. If you need to reschedule your COVID test to a different location or if your surgery gets rescheduled, you MUST call [phone] Wednesday-Wednesday 8am-4:30pm to get your COVID testing [...] 20 seconds. Use an alcohol- based hand forestry biology specialist that contains at least 60% alcohol if soap and water are not available. All visitors/patients are being asked to wear a clean mask when entering the hospital. COVID 19 Updates & Visitor Policy: Please access [email or web address] for the most updated information. Surgery Times: ??? For patients having [facility] @ [facility], [facility], if your surgeon's office has not notified you of your surgery time by NOON THE BUSINESS DAY BEFORE your surgery, please call [phone] and ask for your surgeon's office DR [...] results best viewed via link to PDF [facility] [place] [address] SURGICAL PATHOLOGY REPORT FINAL Patient Name: ?? CESARIO HASSAN V. Gender: ??F : ??1980 (Age: 39) Address: ??[address] [place] [address] ??[id number] Hospital #: ??[id number] Taken:01/08/2020 Received:01/08/2020 Reported: 01/13/2020 Patient Type: [facility] ?? Service: Surgery Location: [facility] Physician(s): ??Meggan Martinez M.D. Dr Martha [...] ??A prior core biopsy demonstrated intraductal papilloma ([id number]). ??Operative procedure: Left magnetic seed localized excisional [...] ??Jar 0. ??Formalin fixation time: 32 hours. [facility]01/09/2020 10:17 PA(s): Caron Sampson MS, PA ([facility]) By this signature, I attest that the above diagnosis is based upon my personal examination of the slides(and/or other material). Addenda/Procedures The performance characteristics of some immunohistochemical stains, fluorescence in-situ hybridization tests and immunophenotyping by flow cytometry cited in this report (if any) were determined by the Surgical Pathology Department at [facility] as part of an ongoing quality supervisor program and in compliance with federally mandated [...] by the Surgical Pathology Department of [facility]. ??It has not been cleared or approved by the U. S. Food and Drug Administration. IMAGES AND SCANNED DOCUMENTS, IF INCLUDED, ONLY VIEWABLE IN PDF VERSION OF REPORT Meggan Martinez MD LAB PATHOLOGY ORDERABLE S Final Result [facility] 3rd Floor [place], [place] [phone] * POCT hCG, urine (01/08/2020 8:52 AM CDT) HCG, ur, POC Negative Lot Number [id number] QC Backgroud Clear Acceptable QC Control Line Acceptable Urine 01/08/2020 8:52 AM CDT Astrid Shahid NP POINT OF CARE TEST ORD ERABLES Final Result documented in this encounter Visit Diagnoses Diagnosis Abnormal mammogram Abnormal mammogram, unspecified Nipple discharge Other sign and symptom in breast Abnormal mammogram Abnormal mammogram, unspecified Nipple discharge [...] 0930, Pre-Op Rate/Dose Verify 01/08/2020 9:07 AM CDT New Bag 01/08/2020 9:02 AM CDT 30 mL/hr 30 mL/hr lidocaine (XYLOCAINE) 20 mL, bupivacaine (MARCAINE) 20 mL solution As needed, Starting on Wed01/08/20 at 0937, Intra-Op Given 01/08/2020 9:37 AM CDT 20 mL Surgical Site sodium chloride 0.9 % irrigation As needed, Starting on Wed01/08/20 at 0936, Intra-Op Given 01/08/2020 9:36 AM CDT 1,000 mL Surgical Site sodium chloride 0.9% flush 0.5-20 mL 0.5-20 [...] (New Bag - Prov ider: Kay Camilo RN)0910 (Bolus - Provider: Carol Ann Mauricio CRNA)1000 (Stopped - Provider: Shakira Parsons, RN) Continuous Medication Order 01/06/2020 01/07/2020 01/08/2020 Lactated Ringer's (LR) infusion (CANCELED) 30 mL/hr, intravenous, Continuous, Starting on Wed01/08/20 at 0930, Pre-Op 0902 (New Bag - Prov ider: Kay Camilo RN)0907 (Rate/Dose Verify - Provider: Carol Ann Mauricio CRNA)0951 (Anesthesia Volume Adjustment - Provider: Carol [...] intra-catheter, As needed, line care, Starting on 01/08/20 at 0852, Pre-Op, Flush volume based on line type and size. Flush before and after each use. documented in this encounter Orders Medications Ordered That Ben ht Not Have Been Administered Count Last Ordered Date First Ordered Date fentaNYL (SUBLIMAZE) preserv ative free injection 50 mcg 1 01/08/2020 haloperidol (HALDOL) injection 1 mg 1 01/07 labetaloL (NORMODYNE,TRANDAT E) injection 5 mg 1 01/08/2020 naloxone (NARCAN) 0.4 mg/mL injection 0.04-0.4 mg 1 01/08/2020 ondansetron (ZOFRAN) injection 4 mg 1 01/07 sodium chloride 0.9% flush 0.5-20 mL 2 12/10 Diet Count Last Ordered Date First Orde red Date ADULT DISCHARGE DIET 1 01/08/2020 Nursing Count Last Ordered Date First Orde red Date DISCHARGE ACTIVITY 4 01/08/2020 DISCHARGE CALL PROVIDER 6 01/08/2020 DISCHARGE DRESSING 4 01/08/2020 documented in this encounter Care Teams Tinning Machine Set Up Operator Relationship Specialty Start Date End Date Martha Lawrence MD Cozy [facility] [place] [address] PCP - General 02/24/19 Zoran Willams Family Medicine 05/18/18 documented as of this encounter
--- OUTSIDE RECORDS SUMMARY | 2024-05-13 22:23 | XMS_ITS | Encounter Summary ---
Author Organization [facility] Healthcare Address [address] [place] [address] Care Team Providers Care Health Plan Specialist Name Role Phone Zoran Willams Unavailable Unavailable Martha Lawrence MD Primary Care Provider [phone]- [phone] Encounter Details Date Type Department Care Team (Latest Contact Info) Description 12/11/2019 11:33 AM CDT - 12/11/2019 12:24 PM CDT Hospital Encounter [facility] [address] [place] [address] Discharge Disposition: Discharge to home or self care Social History Tobacco Use Types Packs/Day Years Used Date Smoking Tobacco: Never Smokeless Tobacco: Never Alcohol Use Standard Drinks/Week Comments No 0 (1 standard drink = 0.6 oz pur e alcohol) Comments No Sex and Gender Information Value Date Recorded Sex Assigned at Not on file 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 ??There will be no report generated by a [facility] Radiologist. Narrative RAD_MAMMO_[facility] - 12/11/2019 11:33 AM CDT EXAMINATION: ??Images For Reference Purposes Only us Meggan Martinez MD IMG MAMMO PROCEDURES nal Result RAD_MAMMO[facility] documented in this encounter Visit Diagnoses Not on filedocumented in this encounter Care Teams Health Plan Specialist Relationship Specialty Start Date End Date Martha Lawrence MD [employer] [place] [address] PCP - General 02/24/19 Zoran Willams Family Medicine 05/18/18 documented as of this encounter
--- OUTSIDE RECORDS SUMMARY | 2024-05-13 22:23 | XMS_ITS | Encounter Summary ---
Author Organization [facility] Address [address] [place] [address] Care Team Providers Care Cold Rolling Coordinator Name Role Phone Zoran Willams Unavailable Unavailable Martha Lawrence MD Primary Care Provider +1- [phone] Encounter Details Date Type Department Care Team (Late st Contact Info) Description 12/19/2019 4:45 PM CDT Lab [address] [address] Kathryn Rosas MD [address] [id number] Discharge Disposition: Discharge to home or self care Social History Tobacco Use Types Packs/Day Years Used Date Smoking Tobacco: Never Smokeless Tobacco: Never Alcohol Use Standard Drinks/Week Comments No 0 (1 standard drink = 0.6 oz pur e alcohol) Comments No Sex and Gender Information Value Date Recorded Sex Assigned at Not on file 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 Gender Identity Not on file Sexual Orientation Not on file documented as of this encounter Discharge Disposition Disposition Code Departure Means Destination Discharge to home or self care documented in this encounter Plan of Treatment Not on file documented as of this encounter Procedures Procedure Name Priority Date/Time Associated Diagnosis Comments HIV 1/2 ANTIBODY PLUS P24 ANTIGEN Routine 12/19/2019 4:49 PM CDT HEPATITIS C ANTIBODY Routine 12/19/2019 4:49 PM CDT HEPATITIS C RNA, QUANTITATIVE, PCR Routine 12/19/2019 4:49 PM CDT HEPATITIS B SURFACE ANTIGEN Routine 12/19/2019 4:49 PM CDT documented in this encounter Results * Hepatitis C (HCV) RNA PCR, quantitative (12/19/2019 4:49 PM CDT) HCV RNA result Not Detected CHANEL MARVIN LUCIO ([facility]) Comment: Interpretive data: The quantifiable range of this assay is 15 IU/mL to 100,000,000 IU/mL (1.18 log IU/mL to 8.00 log IU/mL). Testing was performed by the [employer] AmpliPrep/AYDEN TaqMan HCV Test version 2.0 ([employer] Testing performed at [facility] Current Interpretive Data was last revised on 2015. Testing performed by: [facility], [address] [place] [address], [place]., [address] Blood specimen (specimen) 12/19/2019 4:49 PM CDT 12/20/2019 12:25 PM CDT us Kathryn Rosas MD LAB MICROBIOLOGY - GENERAL O RDERABLES Final Result LILIAN LUCIO ([place]) 1 [facility] Department of Laboratories [place], [place] [id number] * HIV 1/2 Antibody plus p24 Antigen (12/19/2019 4:49 PM CDT) Pathologist [facility] HIV 1/2 ab + p24 ag Nonreactive Nonreactive LILIAN VALDES ([place]) Comment: Nonreactive for HIV-1 antigen and HIV-1/HIV-2 antibodies. No laboratory evidence of HIV infection. If acute HIV infection is suspected, consider testing for HIV-1 RNA. Testing performed by: [facility], [address] [place] [address], [place] [address] Blood specimen (specimen) 12/19/2019 4:49 PM CDT 12/20/2019 9:56 AM CDT Kathryn Rosas MD LAB MICROBIOLOGY - GENERAL O RDERABLES Final Result LILIAN VALDES ([place]) 1 [place] [address] * Hepatitis C antibody (12/19/2019 4:49 PM CDT) Hep C Ab Nonreactive Nonreactive [facility] ([place]) Comment: Interpretive Data Nonreactive: Antibodies to HCV [...] last revised on 2019. Testing performed by: [address] [address] Blood specimen (specimen) 12/19/2019 4:49 PM CDT 12/20/2019 9:45 AM CDT Kathryn Rosas MD LAB MICROBIOLOGY - GENERAL O RDERABLES Edited Result - Final Performing Organization Address [facility] Co de Phone Number LILIAN VALDES ([place]) [address] [place] [address] * Hepatitis B Surface Antigen (12/19/2019 4:49 PM CDT) HepBsAg Nonreactive Nonreactive [facility] ([place]) Comment:Testing performed by : [facility], [address] [place] [address]., [address] Blood specimen (specimen) 12/19/2019 4:49 PM CDT 12/20/2019 9:45 AM CDT Kathryn Rosas MD LAB MICROBIOLOGY - GENERAL O RDERABLES Final Result LILIAN VALDES ([place]) 1 [facility] [place] [address] documented in this encounter Visit Diagnoses Not on filedocumented in this encounter Care Teams Cold Rolling Coordinator Relationship Specialty Start Date End Date Martha Lawrence MD 4 [facility] [place] [address] PCP - General 02/24/19 Zoran Willams Family Medicine 05/18/18 documented as of this encounter
--- OUTSIDE RECORDS SUMMARY | 2024-05-13 22:23 | XMS_ITS | Encounter Summary ---
Author Organization [facility] Healthcare Address [address] [place] [address] Care Team Providers Care Canary Raiser Name Role Phone Zoran Willams Unavailable Unavailable Martha Lawrence MD Primary Care Provider +1- [phone] Encounter Details Date Type Department Care Team (Latest Contact Info) Description 12/11/2019 11:33 AM CDT - 12/11/2019 12:24 PM CDT Hospital Encounter [facility]) [address] [place] [address] Discharge Disposition: Discharge to home or self care Social History Tobacco Use Types Packs/Day Years Used Date Smoking Tobacco: Never Smokeless Tobacco: Never Alcohol Use Standard Drinks/Week Comments No 0 (1 standard drink = 0.6 oz pur e alcohol) Comments No Sex and Gender Information Value Date Recorded Sex Assigned at Not on file 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 ??There will be no report generated by a [facility] Radiologist. Narrative [facility] - 12/11/2019 11:33 AM CDT EXAMINATION: ??Images For Reference Purposes Only us Meggan Martinez MD IMG MAMMO PROCEDURES nal Result [facility] documented in this encounter Visit Diagnoses Not on filedocumented in this encounter Care Teams Canary Raiser Relationship Specialty Start Date End Date Martha Lawrence MD [employer] [place] [address] PCP - General 02/24/19 Zoran Willams Family Medicine 05/18/18 documented as of this encounter
--- OUTSIDE RECORDS SUMMARY | 2024-05-13 22:23 | XMS_ITS | Encounter Summary ---
Author Organization [facility] Healthcare Address [address] [place] [address] Care Team Providers Care Shrimp Header Name Role Phone Zoran Willams Unavailable Unavailable Martha Lawrence MD Primary Care Provider +1- [phone] Encounter Details Date Type Department Care Team (Latest Contact Info) Description 12/11/2019 11:33 AM CDT - 12/11/2019 12:24 PM CDT Hospital Encounter [facility]) [address] [place] [address] Discharge Disposition: Discharge to home or self care Social History Tobacco Use Types Packs/Day Years Used Date Smoking Tobacco: Never Smokeless Tobacco: Never Alcohol Use Standard Drinks/Week Comments No 0 (1 standard drink = 0.6 oz pur e alcohol) Comments No Sex and Gender Information Value Date Recorded Sex Assigned at Not on file 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 ??There will be no report generated by a [facility] Radiologist. Narrative [facility] - 12/11/2019 11:33 AM CDT EXAMINATION: ??Images For Reference Purposes Only us Meggan Martinez MD IMG MAMMO PROCEDURES nal Result [facility] documented in this encounter Visit Diagnoses Not on filedocumented in this encounter Care Teams Shrimp Header Relationship Specialty Start Date End Date Martha Lawrence MD [place] [address] PCP - General 02/24/19 Zoran Willams Family Medicine 05/18/18 documented as of this encounter
--- OUTSIDE RECORDS SUMMARY | 2024-05-13 22:23 | XMS_ITS | Encounter Summary ---
Author Organization [facility] Address [address] [place] [address] Phone Care Team Providers Care Contamination Consultant Name Role Phone Zoran Willams Unavailable Unavailable Martha Lawrence MD Primary Care Provider +1- [phone] Reason for Referral * Diagnostic Imaging (Routine) - Closed Specialty Diagnoses / Procedures Referred By Joelle lopez Referred To Contact Diagnoses Nipple discharge in female Abnormal mammogram Procedures Radiologic Examination of Surgical Specimen Meggan Martinez MD [address] [address] Phone: tel: fax: [address] [address] Referral ID Status Reason Start Date Expiration Date Visits Re quested Visits Authorized [id number] Closed 12/27/2019 01/25/2021 1 1 Encounter Details Date Type Department Care Team (Late st Contact Info) Description 12/27/[address] [facility] Surgery 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 A LEFTsurgical specimen was received from the operating room and was imaged using digital radiography. ?? The lesion of interest is included at the edge of the surgical specimen. These findings were communicated to the the surgeon. Dictated by: Gregory Campos M.D. The radiology attending physician has personally reviewed this study, and had reviewed and/or edited this written report and agrees with it. Electronically signed by: FIDE CABALLERO MD [facility] 01/08/2020 10:26 AM CDT EXAMINATION: RADIOLOGIC EXAMINATION OF LEFTSURGICAL SPECIMEN HISTORY: 39-year-old with recent ultrasound-guided biopsy of the LEFT breast demonstrating intraductal papilloma, now status post surgical excision. ??History of prior right breast excisional biopsy for papilloma and 2011. Procedure Note Fide Caballero MD - 01/08/2020 EXAMINATION: RADIOLOGIC EXAMINATION OF LEFTSURGICAL SPECIMEN HISTORY: 39-year-old with recent ultrasound-guided biopsy of the LEFT breast demonstrating intraductal papilloma, now status post surgical excision. History of prior right breast excisional biopsy for papilloma and 2011. IMPRESSION: FINDINGS/IMPRESSION: A LEFTsurgical specimen was received from the operating room and was imaged using digital radiography. The lesion of interest is included at the edge of the surgical specimen. These findings were communicated to the the surgeon. Dictated by: Gregory Campos M.D. The radiology attending physician has personally reviewed this study, and had reviewed and/or edited this written report and agrees with it. Electronically signed by: FIDE CABALLERO MD us Meggan Martinez MD IMG MAMMO PROCEDURES Fi nal Result documented in this encounter Visit Diagnoses Diagnosis Nipple discharge in female- Primary Abnormal mammogram Abnormal mammogram, unspecified Nipple discharge in female Abnormal mammogram Abnormal mammogram, unspecified documented in this encounter Care Teams Contamination Consultant Relationship Specialty Start Date End Date Martha Lawrence MD Normal [facility] [place] [address] PCP - General 02/24/19 Zoran Willams Family Medicine 05/18/18 documented as of this encounter
--- OUTSIDE RECORDS SUMMARY | 2024-05-13 22:23 | XMS_ITS | Encounter Summary ---
Author Organization [facility] Address [address] [place] [address] Phone Care Team Providers Care Transportation Operations Manager Name Role Phone Екатерина Zoran Tayo Unavailable Unavailable Martha Lawrence MD Primary Care Provider +1- [phone] Reason for Visit * Reason Comments Consult * Consultation (Routine) - Closed Specialty Diagnoses / Procedures Referred By Joelle lopez Referred To Contact Surgical Oncology Diagnoses Nipple discharge in female Martha Lawrence MD [employer] [place] [address] Phone: tel: fax: [facility] (All Locations) Referral ID Status Reason Start Date Expiration Date V isits Requested Visits Authorized [id number] Closed Specialty Services Required 11/28/2019 12/27/2020 99 99 Encounter Details Date Type Department Care Team (Late st Contact Info) Description 12/12/2019 2:00 PM CDT Office Visit [facility] Surgery 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 ?? Department of Surgery [address] [place] [address] ?? [place] [address] ? 12/12/19 CHIEF COMPLAINT: Evaluation of left nipple discharge. HISTORY OF PRESENT ILLNESS: Ms. Jewell is a 39 y.o. woman referred by [...] OTHER MEDICAL Menorrhagia ??? HX OTHER MEDICAL [place] teeth extraction 12/18 ??? 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 HX OTHER MEDICAL right lens implant [...] myringotomy tubes: 1989 ??? 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 HISTORY right lens implant -2011: Dr Barrios - [facility] ??? 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 HISTORY 2012 breast bx R - benign ??? 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 HISTORY milk duct removed right breast ; benign papilloma: Dr Alonso [facility] ??? 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 HISTORY 1983 retinal reattachment ??? 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 HISTORY 2012 eye removal ??? 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 HISTORY 2011 milk duct removal ??? TONSILLECTOMY AND ADENOIDECTOMY ??? TYMPANOSTOMY TUBE PLACEMENT 1993 tubes in ears Prior to Admission medications [...] on phone: None Gets together: None Attends restorationism service: None Active member of club or [...] at the 4 o'clock position. IMPRESSION/RECOMMENDATION: Ms. Jewell is a 39 y.o. woman who presents [...] discharge in female documented in this encounter Historical Medications * This list may reflect changes made after this encounter. montelukast (SINGULAIR) 10 mg tablet Take 1 tablet (10 mg total) by mouth nightly 10/31/2019 escitalopram (LEXAPRO) 20 mg tabletIndication s:Anxiety with Depression Take 1 tablet (20 mg total) by mouth every morning buPROPion XL (WELLBUTRIN XL) 150 mg 24 hr tabletIndication s:Anxiety with Depression Take 1 tablet (150 mg total) by mouth every morning venlafaxine XR (EFFEXOR-XR) 37.5 mg 24 hr capsule TAKE 2 CAPSULES DAILY X 7 DAYS THEN 1 CAPSULE DAILY X 7 DAYS THEN STOP 09/27/2019 0 spironolactone (ALDACTONE) 100 mg tabletIndication s:hypertension Take 1 tablet (100 mg total) by mouth every morning 4 traZODone (DESYREL) 150 mg tabletIndication s:major depressive disorder Take 1 tablet (150 mg total) by mouth nightly 4 semaglutide (Rybelsus) 7 mg tabletIndication s:WEIGHT LOSS every morning 05/08/20 2 1 predniSONE (DELTASONE) 10 mg tablet prednisone 10 mg tablet PLEASE SEE ATTACHED FOR DETAILED DIRECTIONS 0 prazosin (MINIPRESS) 1 mg capsule TAKE 1 CAPSULE BY MOUTH EVERYDAY AT BEDTIME 09/27/2019 0 lamoTRIgine (LaMICtal) 100 mg tabletIndication s:MOOD STABILIZER Take 1 tablet (100 mg total) by mouth nightly 4 added in this encounter Orders Outpatient Referral Count Last Ordered Date Fir st Ordered Date AMB REFERRAL TO SURGICAL ONCOLOGY 1 020 documented in this encounter Care Teams Transportation Operations Manager Relationship Specialty Start Date End Date Martha Lawrence MD [address] [employer] [address] PCP - General 02/24/19 Zoran Willams Family Medicine 05/18/18 documented as of this encounter
--- OUTSIDE RECORDS SUMMARY | 2024-05-13 22:23 | XMS_ITS | Encounter Summary ---
Author Organization [facility] Address [address] [place] [address] Care Team Providers Care Light Rail Operator Name Role Phone Zoran Willams Unavailable Unavailable Martha Lawrence MD Primary Care Provider +1- [phone] Reason for Referral * Diagnostic Imaging (Routine) - Closed Specialty Diagnoses / Procedures Referred By Contac t Referred To Contact Diagnoses Nipple discharge in female Abnormal mammogram Procedures Radiologic Examination of Surgical Specimen Meggan Martinez MD [address] [address] Phone: tel: fax: [address] [address] Referral ID Status Reason Start Date Expiration Date Visits Re quested Visits Authorized [id number] Closed 12/27/2019 01/25/2021 1 1 Reason for Visit * Diagnostic Imaging (Routine) - Closed Specialty Diagnoses / Procedures Referred By Contac t Referred To Contact Diagnoses Nipple discharge in female Abnormal mammogram Procedures Radiologic Examination of Surgical Specimen Meggan Martinez MD [address] [address] Phone: tel: fax: [address] [address] Referral ID Status Reason Start Date Expiration Date Visits Re quested Visits Authorized [id number] Closed 12/27/2019 01/25/2021 1 1 Encounter Details Date Type Department Care Team (Latest Contact Info) Description 01/08/2020 6:45 AM CDT - 01/08/2020 8:04 AM CDT Hospital Encounter [facility] [address] [place] [address] Meggan Martinez MD [address] [address] Nipple discharge in female; Abnormal mammogram Discharge Disposition: Discharge to home or self care Social History Tobacco Use Types Packs/Day Years Used Date Smoking Tobacco: Never Smokeless Tobacco: Never Alcohol Use Standard Drinks/Week Comments No 0 (1 standard drink = 0.6 oz pur e alcohol) Comments No Sex and Gender Information Value Date Recorded Sex Assigned at Not on file 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 Electronically signed by: MD Jesus RICHARDSON 01/08/2020 10:26 AM CDT EXAMINATION: RADIOLOGIC EXAMINATION [...] it. Electronically signed by: FIDE CABALLERO MD Meggan Martinez MD IMG MAMMO PROCEDURES Fi nal Result documented in this encounter Visit Diagnoses Diagnosis Nipple discharge in female Abnormal mammogram Abnormal mammogram, unspecified documented in this encounter Care Teams Light Rail Operator Relationship Specialty Start Date End Date Martha Lawrence MD [address] [place] [address] PCP - General 02/24/19 Zoran Willams Family Medicine 05/18/18 documented as of this encounter
--- OUTSIDE RECORDS SUMMARY | 2024-05-13 22:23 | XMS_ITS | Encounter Summary ---
Author Organization [facility] Healthcare Address [address] [place] [address] Care Team Providers Care Campus Dean Name Role Phone Zoran Willams Unavailable Unavailable Martha Lawrence MD Primary Care Provider +1- [phone] Encounter Details Date Type Department Care Team (Late st Contact Info) Description 01/04/2020 11:55 AM CDT Lab [address] [address] Meggan Martinez MD [address] [address] Preop testing Discharge Disposition: Discharge to home or self care Social History Tobacco Use Types Packs/Day Years Used Date Smoking Tobacco: Never Smokeless Tobacco: Never Alcohol Use Standard Drinks/Week Comments No 0 (1 standard drink = 0.6 oz pur e alcohol) Comments No Sex and Gender Information Value Date Recorded Sex Assigned at Not on file 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 Gender Identity Not on file Sexual Orientation Not on file documented as of this encounter Discharge Disposition Disposition Code Departure Means Destination Discharge to home or self care documented in this encounter Plan of Treatment Not on file documented as of this encounter Procedures Procedure Name Priority Date/Time Associated Diagnosis Comments COVID-19 CORONAVIRUS RNA Routine 01/04/2020 11:57 AM CDT Preop testing documented in this encounter Results * COVID-19 Coronavirus RNA Nasopharyngeal (01/04/2020 11:57 AM CDT) COVID-19 RNA Not Detected [facility] ([place]) Comment: Interpretive Data Testing performed at [facility]. The 2019-Novel Coronavirus Assay (COVID-19) Real Time RT-PCR assay is for in vitro diagnostic use under FDA emergency use authorization only. A negative RT-PCR result does not preclude infection with COVID-19 and should not be used as the sole basis for treatment or other patient management decisions. Additional sample types have been validated according to CLIA regulations. ?? Current Interpretive Data was last revised on 2019. Testing performed by: [facility], [address] [place] [address] Nasopharyngeal 01/04/2020 11 :57 AM CDT 01/04/2020 4:37 PM CDT Narrative LILIAN VALDES (BOOKER) - 01/05/2020 8:30 AM CDT Is the patient experiencing any symptoms consistent with COVID (eg. Fever, cough, shortness of breath)?->No What is the reason for testing?->Screening prior to scheduled (>12 hr) surgery or procedure us Meggan Martinez MD LAB MICROBIOLOGY - GENE RAL ORDERABLES Final Result LILIAN VALDES (BOOKER) 1 [facility] Department [place] [address] documented in this encounter Visit Diagnoses Diagnosis Preop testing Unspecified pre-operative examination documented in this encounter Care Teams Campus Dean Relationship Specialty Start Date End Date Martha Lawrence MD [employer] [place] [address] PCP - General 02/24/19 Zoran Willams Family Medicine 05/18/18 documented as of this encounter
--- OUTSIDE RECORDS SUMMARY | 2024-05-13 22:23 | XMS_ITS | Encounter Summary ---
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 Name Role Phone Zoran Willams Unavailable Unavailable Martha Lawrence MD Primary Care Provider [phone] Reason for Referral * Diagnostic Imaging (Routine) - Closed Specialty Diagnoses / Procedures Referred By Contac t Referred To Contact Diagnoses Nipple discharge in female Procedures US Breast Left Limited Meggan Martinez MD [address] [address] Phone: tel: fax: [address] [phone] Referral ID Status Reason Start Date Expiration Date Visits Re quested Visits Authorized [id number] Closed 11/28/2019 12/27/2020 1 1 * Diagnostic Imaging (Routine) - Closed Specialty Diagnoses / Procedures Referred By Contac t Referred To Contact Diagnoses Nipple discharge in female Procedures Diagnostic Mammogram Bilateral W Rm Meggan Martinez MD [address] [address] Phone: tel: fax: [address] [phone] Referral ID Status Reason Start Date Expiration Date Visits Re quested Visits Authorized [id number] Closed 11/28/2019 12/27/2020 1 1 Reason for Visit * Diagnostic Imaging (Routine) - Closed Specialty Diagnoses / Procedures Referred By Joelle lopez Referred To Contact Diagnoses Nipple discharge in female Procedures Diagnostic Mammogram Bilateral W Meggan Robertson MD [address] [address] Phone: tel: fax: [address] [phone] Referral ID Status Reason Start Date Expiration Date Visits Re quested Visits Authorized [id number] Closed 11/28/2019 12/27/2020 1 1 Encounter Details Date Type Department Care Team (Latest Contact Info) Description 12/12/2019 2:15 PM CDT - 12/12/2019 11:59 PM CDT Hospital Encounter [facility] [place] [facility] [facility] ([facility]) [address] [place] [id number] Meggan Martinez MD [address] [address] Nipple discharge in female Discharge Disposition: Discharge to home or self care Social History Tobacco Use Types Packs/Day Years Used Date Smoking Tobacco: Never Smokeless Tobacco: Never Alcohol Use Standard Drinks/Week Comments No 0 (1 standard drink = 0.6 oz pur e alcohol) Comments No Sex and Gender Information Value Date Recorded Sex Assigned at Not on file Legal 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 Gender Identity Not on file Sexual Orientation [...] sprays into each nostril daily 16 g 11 05/26/2019 0 lamoTRIgine (LaMICtal) 100 mg tabletIndications [...] Priority Date/Time Associated Diagnosis Comments US BREAST LEFT LIMITED Schedule Routine, Read Routine (OP Routine) 12/12/2019 4:27 PM CDT Nipple discharge in female DIAGNOSTIC MAMMOGRAM BILATERAL W RM Schedule Routine, Read Routine (OP Routine) 12/12/2019 3:30 PM CDT Nipple discharge in female documented in this encounter Results * US Breast Left Limited (12/12/2019 4:27 PM CDT) Anatomical Region Laterality Modality Breast Left Ultrasound 12/12/2019 5:36 PM CDT Impressions 12/12/2019 5:36 PM CDT 1. ??Low suspicion intraductal mass within the LEFT subareolar region at the 4 o'clock position is favored to represent a papilloma, less likely malignancy, and may explain the patient's LEFT nipple discharge. 2. ??No new suspicious mammographic finding within EITHER breast. OVERALL FINAL ASSESSMENT: SUSPICIOUS. ??BI-RADS Category 4A: Low suspicion for malignancy. Dr. Richards discussed the above findings and recommendations with the patient. ??She has been scheduled to return to the [facility] for biopsy on 12/19/2019 at 2:00 PM. ??This facility will contact the referring clinician's office for an order. The radiology attending physician has personally reviewed this study, and had reviewed and/or edited this written report and agrees with it. Electronically signed by: Porter Richards M.D. 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 ??Previous RIGHT breast biopsy at unknown date with benign results. ??The patient denies additional breast symptoms. COMPARISON: Mammogram 01/20/2019, 06/24/2017, and 09/08/2011. TECHNIQUE: ?? Full field digital mammographic views of BOTH breasts were performed, including computer aided detection (CAD) and BILATERAL digital breast tomosynthesis (DBT). ??Directed ultrasound evaluation of the LEFT breast was a trained manager outreach and by Dr. Richards. BREAST PARENCHYMAL COMPOSITION: There are scattered areas of fibroglandular density. MAMMOGRAM FINDINGS: There is no new suspicious mass, architectural distortion, or calcification within EITHER breast. SONOGRAM FINDINGS: A targeted ultrasound evaluation of the LEFT subareolar region was performed. ??At the 4 o'clock position, there is a mildly dilated duct containing soft tissue with internal vascularity which measures up to 2.1 cm x 0.6 cm. 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 Previous RIGHT breast biopsy at unknown date with benign results. The patient denies additional breast symptoms. COMPARISON: Mammogram 01/20/2019, 06/24/2017, and 09/08/2011. TECHNIQUE: Full field digital mammographic views of BOTH breasts were performed, including computer aided detection (CAD) and BILATERAL digital breast tomosynthesis (DBT). Directed ultrasound evaluation of the LEFT breast was a trained manager outreach and by Dr. Richards. BREAST PARENCHYMAL COMPOSITION: There are scattered areas of fibroglandular density. MAMMOGRAM FINDINGS: There is no new suspicious mass, architectural distortion, or calcification within EITHER breast. SONOGRAM FINDINGS: A targeted ultrasound evaluation of the LEFT subareolar region was performed. At the 4 o'clock position, there is a mildly dilated duct containing soft tissue with internal vascularity which measures up to 2.1 cm x 0.6 cm. IMPRESSION: 1. Low suspicion intraductal mass within the LEFT subareolar region at the 4 o'clock position is favored to represent a papilloma, less likely malignancy, and may explain the patient's LEFT nipple discharge. 2. No new suspicious mammographic finding within EITHER breast. OVERALL FINAL ASSESSMENT: SUSPICIOUS. BI-RADS Category 4A: Low suspicion for malignancy. Dr. Richards discussed the above findings and recommendations with the patient. She has been scheduled to return to the [facility] for biopsy on 12/19/2019 at 2:00 PM. This facility will contact the referring clinician's office for an order. The radiology attending physician has personally reviewed this study, and had reviewed and/or edited this written report and agrees with it. Electronically signed by: Porter Richards M.D. Meggan Martinez MD IMG MAMMO PROCEDURES Fi nal Result * Diagnostic Mammogram Bilateral W Rm (12/12/2019 3:30 PM CDT) Anatomical Region Laterality Modality Breast Bilateral Mammography 12/12/2019 5:36 PM CDT Impressions 12/12/2019 5:36 PM CDT 1. ??Low suspicion intraductal mass within the LEFT subareolar region at the 4 o'clock position is favored to represent a papilloma, less likely malignancy, and may explain the patient's LEFT nipple discharge. 2. ??No new suspicious mammographic finding within EITHER breast. OVERALL FINAL ASSESSMENT: SUSPICIOUS. ??BI-RADS Category 4A: Low suspicion for malignancy. Dr. Richards discussed the above findings and recommendations with the patient. ??She has been scheduled to return to the [facility] for biopsy on 12/19/2019 at 2:00 PM. ??This facility will contact the referring clinician's office for an order. The radiology attending physician has personally reviewed this study, and had reviewed and/or edited this written report and agrees with it. Electronically signed by: Porter Richards M.D. 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 ??Previous RIGHT breast biopsy at unknown date with benign results. ??The patient denies additional breast symptoms. COMPARISON: Mammogram 01/20/2019, 06/24/2017, and 09/08/2011. TECHNIQUE: ?? Full field digital mammographic views of BOTH breasts were performed, including computer aided detection (CAD) and BILATERAL digital breast tomosynthesis (DBT). ??Directed ultrasound evaluation of the LEFT breast was a trained manager outreach and by Dr. Richards. BREAST PARENCHYMAL COMPOSITION: There are scattered areas of fibroglandular density. MAMMOGRAM FINDINGS: There is no new suspicious mass, architectural distortion, or calcification within EITHER breast. SONOGRAM FINDINGS: A targeted ultrasound evaluation of the LEFT subareolar region was performed. ??At the 4 o'clock position, there is a mildly dilated duct containing soft tissue with internal vascularity which measures up to 2.1 cm x 0.6 cm. 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 Previous RIGHT breast biopsy at unknown date with benign results. The patient denies additional breast symptoms. COMPARISON: Mammogram 01/20/2019, 06/24/2017, and 09/08/2011. TECHNIQUE: Full field digital mammographic views of BOTH breasts were performed, including computer aided detection (CAD) and BILATERAL digital breast tomosynthesis (DBT). Directed ultrasound evaluation of the LEFT breast was a trained manager outreach and by Dr. Richards. BREAST PARENCHYMAL COMPOSITION: There are scattered areas of fibroglandular density. MAMMOGRAM FINDINGS: There is no new suspicious mass, architectural distortion, or calcification within EITHER breast. SONOGRAM FINDINGS: A targeted ultrasound evaluation of the LEFT subareolar region was performed. At the 4 o'clock position, there is a mildly dilated duct containing soft tissue with internal vascularity which measures up to 2.1 cm x 0.6 cm. IMPRESSION: 1. Low suspicion intraductal mass within the LEFT subareolar region at the 4 o'clock position is favored to represent a papilloma, less likely malignancy, and may explain the patient's LEFT nipple discharge. 2. No new suspicious mammographic finding within EITHER breast. OVERALL FINAL ASSESSMENT: SUSPICIOUS. BI-RADS Category 4A: Low suspicion for malignancy. Dr. Richards discussed the above findings and recommendations with the patient. She has been scheduled to return to the [facility] for biopsy on 12/19/2019 at 2:00 PM. This facility will contact the referring clinician's office for an order. The radiology attending physician has personally reviewed this study, and had reviewed and/or edited this written report and agrees with it. Electronically signed by: Porter Richards M.D. 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
--- OUTSIDE RECORDS SUMMARY | 2024-05-13 22:23 | XMS_ITS | Encounter Summary ---
Author Organization [facility] Healthcare Address [address] [place] [address] Care Team Providers Care Privacy Compliance Manager Name Role Phone Zoran Willams Unavailable Unavailable Martha Lawrence MD Primary Care Provider [phone] Reason for Referral * Diagnostic Imaging (Routine) - Closed Specialty Diagnoses / Procedures Referred By Contac t Referred To Contact Diagnoses Nipple discharge in female Abnormal mammogram Procedures Mammo Post Clip Placement Left Meggan Martinez MD [address] [address] Phone: tel: fax: [address] [phone] Referral ID Status Reason Start Date Expiration Date Visits Re quested Visits Authorized [id number] Closed 01/03/2020 02/01/2021 1 1 Reason for Visit * Diagnostic Imaging (Routine) - Closed Specialty Diagnoses / Procedures Referred By Contac t Referred To Contact Diagnoses Nipple discharge in female Abnormal mammogram Procedures US Guided Magseed Localization Left Mammo Guided [place] [address] [place] [id number] Phone: tel: fax: [address] [phone] Referral ID Status Reason Start Date Expiration Date Visits Re quested Visits Authorized [id number] Closed 12/27/2019 01/25/2021 1 1 Encounter Details Date Type Department Care Team (Latest Contact Info) Description 01/03/2020 9:01 AM CDT - 01/03/2020 11:59 PM CDT Hospital Encounter [facility] [address] [place] [address] Meggan Martinez MD [address] [address] Nipple discharge in female; Abnormal mammogram Discharge [...] on file Legal Sex Female 10:37 AM [employer] Gender Identity Not on file Sexual Orientation Not on file documented as of this encounter Discharge Instructions * Discharge Instructions* Makenna Mcgovern, RT - 01/03/2020 9:29 AM CDT [facility]charge [...] some bruising. Special instructions: Please call the [facility] nurses at [phone] or the [facility] at [phone] (8am to 5 pm*) if you experience: ?? Extreme redness, bruising, swelling, severe pain or unusual drainage at the biopsy site ?? Fever of 101.5 F ?? If there are any signs of bleeding, lie down and apply firm pressure for 20 minutes. If bleedingpersists call the [facility] or your physician. * If it is after hours, a weekend or holiday, please call your breast surgeon or referring physician. Results: You should receive your biopsy results within 3 working days. If you have not been informed of yourresults after this time please call: ?? The breast imaging nurse in the [facility] at [phone]. ?? The breast surgeon's office at . [...] encounter Miscellaneous Notes * Post-Procedure Note - Linn Wheeler DO - 01/03/2020 9:15 AM CDT Radiology Brief Post Procedure Note Attending: Maurice Passenger Vessel Chef: Agnes Sedation/Anesthesia: Local Pre-Op/Pre-Procedure Diagnosis: L breast papilloma Post-Op/Post-Procedure Diagnosis: same Procedure Performed: L breast Magseed placement Procedure Findings: same Complications: None Estimated Blood Loss: < 30 ml Specimens: None Condition: Stable Full report to follow. documented in this encounter Plan of Treatment Not on file documented as of this encounter Procedures Procedure Name Priority Date/Time Associated Diagnosis Comments MAMM POST CLIP PLACEMENT LEFT Schedule Routine, Read Routine (OP Routine) 01/03/2020 9:48 AM CDT Nipple discharge in female Abnormal mammogram US GUIDED MAGSEED LOCALIZATION LEFT Schedule Routine, Read Routine (OP Routine) 01/03/2020 9:40 AM CDT Nipple discharge in female Abnormal mammogram documented in this encounter Results * Mammo Post Clip Placement Left (01/03/2020 9:48 AM CDT) Anatomical Region Laterality Modality Breast Left Mammography 01/03/2020 10:0 1 AM CDT Impressions 01/03/2020 1:51 PM CDT Successful LEFT breast Magseed placement Dictated by: Linn Wheeler D.O. The radiology attending physician has personally reviewed this study, and had reviewed and/or edited this written report and agrees with it. Electronically signed by: Porter Richards M.D. Narrative 01/03/2020 1:51 PM CDT EXAMINATION: LEFT BREAST MAGSEED LOCALIZATION UTILIZING SONOGRAPHIC GUIDANCE, AND LEFT FULL FIELD DIGITAL POST-PROCEDURE MAMMOGRAM HISTORY: ??Abnormal breast imaging. ??39-year-old woman with history of intermittent bilateral clear yellow nipple discharge. 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 ??Ultrasound-guided biopsy of the LEFT breast at 4:00, subareolar region demonstrated a benign intraductal papilloma. ??Image guided Magseed localization of the LEFT breast is requested prior to surgical excision. COMPARISON: 12/19/2019, 12/12/2019. PROCEDURE AND FINDINGS: The risks and potential benefits of the procedures were discussed with the patient and written informed consent was obtained. After sterile preparation of the skin, 1% lidocaine was utilized for local anesthesia. ??The Magseed needle was then advanced through the skin incision to the edge of the lesion of interest at the 4 o'clock position from a lateral approach utilizing sonographic guidance. Magseed was deployed under ultrasound guidance. ??Hemostasis was achieved. A sterile bandage was applied. The patient tolerated the procedure well and there was no evidence of immediate complication. The patient was given verbal instructions prior to release from the department. A two-view LEFT digital mammogram obtained post procedure demonstrates that the Magseed is in expected position adjacent to the previously placed tissue marker clip. The attending radiologist, Dr. Porter Richards M.D., was present throughout the entire procedure. ??Dr. Wheeler also participated in this examination. Procedure Note Porter Richards MD - 01/03/2020 EXAMINATION: LEFT BREAST MAGSEED LOCALIZATION UTILIZING SONOGRAPHIC GUIDANCE, AND LEFT FULL FIELD DIGITAL POST-PROCEDURE MAMMOGRAM HISTORY: Abnormal breast imaging. 39-year-old woman with history of intermittent bilateral clear yellow nipple discharge. 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 Ultrasound-guided biopsy of the LEFT breast at 4:00, subareolar region demonstrated a benign intraductal papilloma. Image guided Magseed localization of the LEFT breast is requested prior to surgical excision. COMPARISON: 12/19/2019, 12/12/2019. PROCEDURE AND FINDINGS: The risks and potential benefits of the procedures were discussed with the patient and written informed consent was obtained. After sterile preparation of the skin, 1% lidocaine was utilized for local anesthesia. The Magseed needle was then advanced through the skin incision to the edge of the lesion of interest at the 4 o'clock position from a lateral approach utilizing sonographic guidance. Magseed was deployed under ultrasound guidance. Hemostasis was achieved. A sterile bandage was applied. The patient tolerated the procedure well and there was no evidence of immediate complication. The patient was given verbal instructions prior to release from the department. A two-view LEFT digital mammogram obtained post procedure demonstrates that the Magseed is in expected position adjacent to the previously placed tissue marker clip. The attending radiologist, Dr. Porter Richards M.D., was present throughout the entire procedure. Dr. Wheeler also participated in this examination. IMPRESSION: Successful LEFT breast Magseed placement Dictated by: Linn Wheeler D.O. The radiology attending physician has personally reviewed this study, and had reviewed and/or edited this written report and agrees with it. Electronically signed by: Porter Richards M.D. us Meggan Martinez MD IMG MAMMO PROCEDURES Fi nal Result * US Guided Magseed Localization Left (01/03/2020 9:40 AM CDT) Anatomical Region Laterality Modality Breast Left Ultrasound 01/03/2020 10:0 1 AM CDT Impressions 01/03/2020 1:51 PM CDT Successful LEFT breast Magseed placement Dictated by: Linn Wheeler D.O. The radiology attending physician has personally reviewed this study, and had reviewed and/or edited this written report and agrees with it. Electronically signed by: Porter Richards M.D. Narrative 01/03/2020 1:51 PM CDT EXAMINATION: LEFT BREAST MAGSEED LOCALIZATION UTILIZING SONOGRAPHIC GUIDANCE, AND LEFT FULL FIELD DIGITAL POST-PROCEDURE MAMMOGRAM HISTORY: ??Abnormal breast imaging. ??39-year-old woman with history of intermittent bilateral clear yellow nipple discharge. 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 ??Ultrasound-guided biopsy of the LEFT breast at 4:00, subareolar region demonstrated a benign intraductal papilloma. ??Image guided Magseed localization of the LEFT breast is requested prior to surgical excision. COMPARISON: 12/19/2019, 12/12/2019. PROCEDURE AND FINDINGS: The risks and potential benefits of the procedures were discussed with the patient and written informed consent was obtained. After sterile preparation of the skin, 1% lidocaine was utilized for local anesthesia. ??The Magseed needle was then advanced through the skin incision to the edge of the lesion of interest at the 4 o'clock position from a lateral approach utilizing sonographic guidance. Magseed was deployed under ultrasound guidance. ??Hemostasis was achieved. A sterile bandage was applied. The patient tolerated the procedure well and there was no evidence of immediate complication. The patient was given verbal instructions prior to release from the department. A two-view LEFT digital mammogram obtained post procedure demonstrates that the Magseed is in expected position adjacent to the previously placed tissue marker clip. The attending radiologist, Dr. Porter Richards M.D., was present throughout the entire procedure. ??Dr. Wheeler also participated in this examination. Procedure Note Porter Richards MD - 01/03/2020 EXAMINATION: LEFT BREAST MAGSEED LOCALIZATION UTILIZING SONOGRAPHIC GUIDANCE, AND LEFT FULL FIELD DIGITAL POST-PROCEDURE MAMMOGRAM HISTORY: Abnormal breast imaging. 39-year-old woman with history of intermittent bilateral clear yellow nipple discharge. 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 Ultrasound-guided biopsy of the LEFT breast at 4:00, subareolar region demonstrated a benign intraductal papilloma. Image guided Magseed localization of the LEFT breast is requested prior to surgical excision. COMPARISON: 12/19/2019, 12/12/2019. PROCEDURE AND FINDINGS: The risks and potential benefits of the procedures were discussed with the patient and written informed consent was obtained. After sterile preparation of the skin, 1% lidocaine was utilized for local anesthesia. The Magseed needle was then advanced through the skin incision to the edge of the lesion of interest at the 4 o'clock position from a lateral approach utilizing sonographic guidance. Magseed was deployed under ultrasound guidance. Hemostasis was achieved. A sterile bandage was applied. The patient tolerated the procedure well and there was no evidence of immediate complication. The patient was given verbal instructions prior to release from the department. A two-view LEFT digital mammogram obtained post procedure demonstrates that the Magseed is in expected position adjacent to the previously placed tissue marker clip. The attending radiologist, Dr. Porter Richards M.D., was present throughout the entire procedure. Dr. Wheeler also participated in this examination. IMPRESSION: Successful LEFT breast Magseed placement Dictated by: Linn Wheeler D.O. The radiology attending physician has personally reviewed [...] (1 %) injection Code/trauma/sedation medication, Starting on Wed01/03/20 at 0930, Intra-Procedure (IR), Indications: Administration of Local AnesthesiaIndications:Administ ration of Local Anesthesia Given 01/03/2020 9:30 AM CDT 5 mL Left Breast documented in this encounter Orders Medications Ordered That Ben ht Not Have Been Administered Count Last Ordered Date First Ordered Date lidocaine (XYLOCAINE) 10 mg/ mL (1 %) injection 1 01/03/2020 documented in this encounter Care Teams Privacy Compliance Manager Relationship Specialty Start Date End Date Martha Lawrence MD [address] [place] [address] PCP - General 02/24/19 Zoran Willams Family Medicine 05/18/18 documented as of this encounter
--- OUTSIDE RECORDS SUMMARY | 2024-05-13 22:23 | XMS_ITS | Encounter Summary ---
Author Organization [facility] Healthcare Address [address] [place] [address] Care Team Providers Care Aerobics Teacher Name Role Phone Zoran Willams Unavailable Unavailable Martha Lawrence MD Primary Care Provider +1- [phone] Encounter Details Date Type Department Care Team (Late st Contact Info) Description 01/08/2020 9:15 AM CDT Anesthesia Event [facility] Operating [facility] ([facility]) [address] [place] [address] Mark Cody MD [address] [place] [address] Shaina Menendez NP [address] [facility] [id number] [place] [address] Anesthesia Record Procedure Summary Procedure Name Responsible Anesthesiologist Anesthesia Start Time Anesthesia Stop Time LEFT MAGNETIC SEED LOCALIZATION EXCISIONAL BIOPSY (Left: Breast) Mark Cody MD 01/08/20 0915 01/08/20 1022 Events Date Time Event Comment 01/08/2020 0847 In Preop 0907 0915 An Start 0917 In Room 0918 An Start Data 0921 Start Supplemental O2 0922 An Induction The patient was reevaluated immediately before moderate or deep sedation use and before anesthesia induction. 0923 Anesthesia Ready 0931 Proc Start 0932 Local injected by surgeon 0932 Incision Start 0941 Quick Note Specimen excise d 0956 Quick Note closing 1011 Proc Fin 1015 an stop data 1016 Out of Room 1021 Handoff to RN I completed my handoff [...] disposition at the time of handoff: PACU 1022 An Stop Meds Name Total midazolam PF 2 mg fentaNYL 100 mcg propofol 567.13 mg clindamycin (CLEOCIN) 900 mg in sodium c hloride 0.9% 100 mL IVPB 900 mg ondansetron PF (ZOFRAN) 2 mg/mL injectio n 4 mg dexmedetomidine vial 4 mcg/mL 4 mcg etomidate 8 mg Lactated Ringer's (LR) infusion 400 mL * Agents Name O2% N2O O2 * Blood No blood administrations on file. Lines, Drains, and Airways Type Details Placement Removal RETIRED Surgical Site Left; Breast; 07/31 (Retired LDA, Removed/Completed by [employer] with LDA Utility); 1213 (Retired LDA, Removed/Completed by [employer] with LDA Utility) 12/28/19 1056 by 04/11/24 1213 by Discharge Provider, Automatic Peripheral IV Placement Date: 01/08/20; Placement Time: 0856; Catheter Size: 20 G; Orientation: Right, Medial; Location: Wrist; Site Prep: Chlorhexidine; Technique: Anatomical landmarks; Inserted by: blaine; Insertion Attempts: 1; Removal Date: 01/08/20; Removal Time: 1100 01/08/20 0856 by Kay Camilo RN 01/08/20 1100 by Shakira Parsons, SANJANA documented in this encounter Social History Tobacco Use Types Packs/Day Years Used Date Smoking Tobacco: Never Smokeless Tobacco: Never Alcohol Use Standard Drinks/Week Comments No 0 (1 standard drink = 0.6 oz pur e alcohol) Comments No Sex and Gender Information Value Date Recorded Sex Assigned at Not on file Legal Sex 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 Gender Identity Not on file Sexual Orientation Not on file documented as of this encounter OR Notes * Anesthesia Postprocedure Evaluation - Alexei Arreaga MD - 01/08/2020 11:02 AM CDT Patient: Micole V Miles Procedure Summary Date: 01/08/20 Room / Location: [facility] CAM OR POD 4 ROOM C / [facility] CAM OR POD 4 Anesthesia Start: 914 Anesthesia Stop: 1021 Procedures: LEFT MAGNETIC SEED LOCALIZATION EXCISIONAL BIOPSY (Left Breast) LEFT REMOVAL MAG SEED (Left Breast) Diagnosis: Abnormal mammogram Nipple discharge (Abnormal mammogram [R92.8]) (Nipple discharge [N64.52]) Surgeon: Meggan Martinez MD Responsible Provider: Mark Cody MD Anesthesia Type: MAC ASA Status: 3 Anesthesia Type: MAC Last vitals BP 109/89 Pulse 81 Temp 36 ??C (96.8 ??F) (Temporal) Resp 16 SpO2 97% Anesthesia Post Evaluation Patient location during evaluation: PACU Patient participation: complete - patient participated Level of consciousness: fully awake Pain management: satisfactory to patient Airway patency: adequate and patent Anesthetic complications: no Cardiovascular status: acceptable and hemodynamically stable Respiratory status: acceptable and room air Hydration status: acceptable Pt is: normothermic Nausea/Vomiting status: none * Anesthesia Preprocedure Evaluation - Mark Cody MD - 12/29/2019 2:04 PM CDT Images from the original note were not included. [facility] for Preoperative Assessment and Planning Preoperative Evaluation Record Evaluation type/location: TPAP from [facility] Planned procedure site: [facility] CAM OR (Pod 4) Date: 12/29/19 NOTE: This note represents a preoperative evaluation initiated via telephone interview. NO PHYSICALEXAM was performed at the time of initial assessment. A physical exam may be added to this note anddocumented below. Anesthesia Evaluation Cesario Jewell is a 39 y.o. female Procedure(s): LEFT MAGNETIC SEED LOCALIZATION EXCISIONAL BIOPSY LEFT REMOVAL MAG SEED Pre-Op Diagnosis Codes: * Abnormal mammogram [R92.8] * Nipple discharge [N64.52] HISTORY HPI Micole Sarthak Jewell is a 39 year old having localization excisional biopsy for abnormal mammogram. Past Medical History Information obtained from: patient and chart. Neurological + Psychiatric history (with panic attacks) - anxiety and depression Pertinent negatives: seizures; neuromuscular disease; CVA/stroke; TIA; CEA; ICA stenosis; dementia/mild cognitive impairment and carotid artery stent Cardiovascular + Hypertension (recently antihypertensive medication discontinued by PCP, due to significant weightloss, remains normotensive) Pertinent negatives: CAD ; LA ; CABG ; valvular heart disease; valve replacement; atrial fibrillation; arrhythmia; pacemaker/ICD; PVD; DVT/PE; negative for CHF; drug-eluting stent(s); bare metal stent(s) and coronary angioplasty Respiratory Pertinent negatives: COPD; asthma; pulmonary hypertension; no O2 use outside the hospital and non-smoker SLEEP APNEA FOR ADULT PAT: YEMI study negative, snoring related to hypertrophy tonsil. Hepatic / Heme + History of anemia (required iron infusion 10 years ago, resolved) - iron deficiency Pertinent negatives: liver disease; history of thrombocytopenia and history of Tramaine positive Gastrointestinal GI system: negative Renal / Pertinent negatives: renal disease; dialysis and nephrolithiasis Musculoskeletal/Pain Pertinent negatives: chronic pain; chronic opioid use and previous treatment for opioid use disorder Endocrine / Other + Eye disorder (retinal reattachment, left.. . cataract, bilateral . . 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 without becoming short of breath or developing chest pain Day of Surgery assessments + Possibility of assessed (will obtain urine HCG on DOS) Review of Systems + vision loss (wears corrective lenses-distance, blind left eye (prsothetic)) Pertinent negatives: productive cough; wheezing; SOB; recent cold/flu; fever; chest pain; palpitations; orthopnea; pedal edema; PND; heavy menses; Sickle Cell disease/trait; previous transfusion; transfusion reaction; melena/hematochezia; easy bruising; bleeding problems; syncope; dizziness; muscleweakness; chronic pain; numbness/tingling; hard of hearing; heartburn; nausea; dysphagia; diarrhea;dentures/partials; chipped/loose teeth; abdominal pain; diaphoresis and no unexpected weight change PAT Summary and Plans Cardiac risk classification of planned procedure: low cardiac risk. Disposition: suitable for outpatient surgery center. Preoperative assessment status: complete. Additional comments: Cesario Jewell is a 39 y.o. female who is being evaluated prior to undergoing a low cardiac risk surgery. Revised Cardiac Risk Index factors are (none) for a total RCRI of 0 out of 6. Functional capacity is 4-6 METs. This assessment was performed via telephone. Therefore the physical exam has been deferred to the day of surgery team. The patient was provided with preoperative instructions for their medications. The patient was instructed to shower/bathe the night prior and the morning of the planned procedure using an antibacterial soap. Patient instructions were provided in writing sent via Alere mail. Patient verbalized understanding of preoperative plan. Obstructive sleep apnea (YEMI) screening status is STOP-Bang=0-1 depending on neck circumference measurement, suggesting low risk for YEMI. Blood bank needs for day of procedure: No type and screen needed Pending labs/tests include:will obtain urine HCG on DOS. Patient with No known exposure to COVID19 and no concerning symptoms of COVID19. Plan for pre-procedure COVID19 testing: Telephone assessment performed. Pre- procedure COVID19 testing scheduled to be performed on 01/04/2020 at [facility] assessment complete. Preoperative evaluation performed by Astrid Shahid NP on 12/29/19 at 2:09 PM.. Patient Active Problem List Diagnosis ??? Multiple-type [...] ear pain ??? Nipple discharge in female Past Medical History: Diagnosis Date ??? Depression Depression ??? Glaucoma glaucoma ??? HX OTHER MEDICAL L/R cataract extraction ??? HX OTHER MEDICAL Detached Retina ??? HX OTHER MEDICAL Scar tissure removal Left Eye ??? HX OTHER MEDICAL myringotomy tubes ??? HX OTHER MEDICAL Menorrhagia ??? HX OTHER MEDICAL [place] teeth extraction 12/18 ??? 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 HX OTHER MEDICAL right lens implant [...] myringotomy tubes: 1989 ??? 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 HISTORY right lens implant -2011: Dr Barrios [facility] ??? 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 HISTORY 2011 breast bx R - benign ??? 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 HISTORY milk duct removed right breast ; benign papilloma: Dr Alonso [facility] ??? 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 HISTORY left eye removed 02-10-12, prosthetic: Dr Fidel Hsu [facility] ??? 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 HISTORY 1982 retinal reattachment ??? 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 HISTORY 2011 eye removal ??? 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 HISTORY 2011 milk duct removal ??? TONSILLECTOMY AND ADENOIDECTOMY ??? TYMPANOSTOMY TUBE PLACEMENT 1993 tubes in ears OB History No obstetric history on file. Allergies Allergen Reactions ??? Penicillins Hives ??? Sulfasalazine Hives and Rash ??? Sulfa (Sulfonamide Antibiotics) Eye irritation Reaction: itchy eyes, , ??? Sulfanilamide Other (See comments) Reaction: Conjunctivitis, ??? Oxycodone-Acetaminophen Diarrhea, Nausea Only and Vomiting Med List Status: Nurse Complete Set By: Imani Messer RN at 12/28/2019 10:53 AM Taking? Last Dose Start Date End Date Provider albuterol HFA (PROVENTIL HFA,VENTOLIN HFA,PROAIR HFA) 90 mcg/actuation inhaler Past Month 01/20/19 -- Historical Provider, buPROPion XL (WELLBUTRIN XL) 150 mg 24 hr tablet 12/28/2019 -- -- Historical Provider, cholecalciferol (VITAMIN D-3) 5,000 unit tablet 12/28/2019 -- -- Historical Provider, escitalopram (LEXAPRO) 20 mg tablet 12/28/2019 -- -- Historical Provider, lamoTRIgine (LaMICtal) 25 mg tablet 12/27/2019 -- -- Historical Provider, latanoprost (XALATAN) 0.005 % ophthalmic solution 12/27/2019 03/05/18 -- Historical Provider, metFORMIN XR (GLUCOPHAGE XR) 500 mg 24 hr tablet 12/28/2019 04/20/19 -- Historical Provider, montelukast (SINGULAIR) 10 mg tablet 12/27/2019 10/31/19 -- Historical Provider, semaglutide (Rybelsus) 7 mg tablet 12/28/2019 -- -- Historical Provider, spironolactone (ALDACTONE) 100 mg tablet 12/28/2019 -- -- Historical Provider, traZODone (DESYREL) 50 mg tablet 12/27/2019 -- -- Historical Provider, No current facility-administered medications for this encounter. Current Outpatient Medications: ??? albuterol HFA (PROVENTIL HFA,VENTOLIN HFA,PROAIR HFA) 90 mcg/actuation inhaler ??? buPROPion XL (WELLBUTRIN XL) 150 mg 24 hr tablet ??? cholecalciferol (VITAMIN D-3) 5,000 unit tablet ??? escitalopram (LEXAPRO) 20 mg tablet ??? lamoTRIgine (LaMICtal) 25 mg tablet ??? latanoprost (XALATAN) 0.005 % ophthalmic solution ??? metFORMIN XR (GLUCOPHAGE XR) 500 mg 24 hr tablet ??? montelukast (SINGULAIR) 10 mg tablet ??? semaglutide (Rybelsus) 7 mg tablet ??? spironolactone (ALDACTONE) 100 mg tablet ??? traZODone (DESYREL) 50 mg tablet Social History Tobacco Use Smoking [...] Maternal Grandfather ??? Anesthesia problems Neg Hx There were no vitals filed for this visit. Relevant diagnostics: ECG(s): 02/25/2019-ECG-ST, nonspecific T wave abnormality, HR 109 bpm PT: No results found for requested labs [...] Medical history, medications, and allergies reviewed. Attestation: This PAT evaluation 01/08/2020. Airway Exam: Mallampati: I Cervical ROM: FROM TM distance: 3.5 Jaw ROM: full Cardiovascular Exam: Rate: regular Rhythm: regular Pulmonary Exam: LCTA, bilat Anesthesia Plan ASA 3 My patient is approved for the Anesthesia Controlled Medication protocol when under care of a RANGE RIDER Planned anesthesia: MAC Postoperative Plan: No plan for postoperative opioid use. Patient's planned disposition post procedure is Outpatient. Informed Consent: Discussed plan with RANGE RIDER. Anesthesia plan and risks discussed with patient. Plan and Consent Comments: GA as backup Consent and Attending signature: I and/or my designee have discussed the anesthesia plan, benefits, possible alternatives, parental presence at time of induction (if indicated), and clinically relevant risks that may include dental injury, unintentional awareness, and/or other complications. The patient and/or parent/legal guardian understand, and agree to proceed. All questions answered. documented in this encounter Plan of Treatment [...] 9:02 AM CDT 900 mg 212 mL/hr dexMEDEtomidine (PRECEDEX) 80 mcg/20 mL (4 mcg/mL) in sodium chloride 0.9% (premix) As needed, Starting on Wed01/08/20 at 0922, Anesthesia Intra-op Given 01/08/2020 9:22 AM CDT 4 mcg etomidate (AMIDATE) injection Administer over 1 Minutes, As needed, Starting on Wed01/08/20 at 0922, Anesthesia Intra-op Given 01/08/2020 9:22 AM CDT 8 mg fentaNYL (SUBLIMAZE) preservative free injection intravenous, As needed, Starting on Wed01/08/20 at 0922, Anesthesia Intra-op Given 01/08/2020 9:38 AM CDT 25 mcg Given 01/08/2020 9:32 AM CDT 25 mcg Given 01/08/2020 9:22 AM CDT 25 mcg Lactated Ringer's (LR) infusion 30 mL/hr, intravenous, Continuous, Starting on Wed01/08/20 at 0930, Pre-Op Rate/Dose Verify 01/08/2020 9:07 AM C DT New Bag 01/08/2020 9:02 AM CDT 30 mL/hr 30 mL/hr midazolam (VERSED) preservative free injection intravenous, Administer over 2 Minutes, As needed, Starting on Wed01/08/20 at 0918, Anesthesia Intra-op Given 01/08/2020 9:18 AM CDT 2 mg ondansetron (ZOFRAN) injection Administer over 2 Minutes, As needed, Starting on Wed01/08/20 at 0922, Anesthesia Intra-op Given 01/08/2020 9:22 AM CDT 4 mg propofoL (DIPRIVAN) IV intravenous, Continuous PRN, Starting on Wed01/08/20 at 0922, Anesthesia Intra-op Rate/Dose Change 01/08/2020 9:55 AM CDT 100 mcg/kg/min 60.12 mL/hr Rate/Dose Change 01/08/2020 9:27 AM CDT 120 mcg/kg/min 72. 14 mL/hr New Bag 01/08/2020 9:22 AM CDT 140 mcg/kg/min 84.17 mL/ hr documented in this encounter Care Teams Aerobics Teacher Relationship Specialty Start Date End Date Martha Lawrence MD [address] [place] [address] PCP - General 02/24/19 Zoran Willams Family Medicine 05/18/18 documented as of this encounter
--- OUTSIDE RECORDS SUMMARY | 2024-05-13 22:23 | XMS_ITS | Encounter Summary ---
Author Organization [facility] Healthcare Address [address] [place] [address] Care Team Providers Care Location Worker Name Role Phone Zoran Willams Unavailable Unavailable Martha Lawrence MD Primary Care Provider +1- [phone] Encounter Details Date Type Department Care Team (Late st Contact Info) Description 12/18/2019 Telephone [facility] Advanced Medicine Breast Imaging [facility] ([facility]) [address] [place] [address] Kathryn Penaloza, SANJANA Social History Tobacco Use Types Packs/Day Years Used Date Smoking Tobacco: Never Smokeless Tobacco: Never Alcohol Use Standard Drinks/Week Comments No 0 (1 standard drink = 0.6 oz pur e alcohol) Comments No Sex and Gender Information Value Date Recorded Sex Assigned at Not on file 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
--- OUTSIDE RECORDS SUMMARY | 2024-05-13 22:23 | XMS_ITS | Encounter Summary ---
Author Organization [facility] Healthcare Address [address] [place] [address] Care Team Providers Care Orthotic Technician Name Role Phone Zoran Willams Unavailable Unavailable Martha Lawrence MD Primary Care Provider +1- [phone] Reason for Visit * Reason Onset Date Comments Directions 12/19/2019 Encounter Details Date Type Department Care Team (Late st Contact Info) Description 12/19/[address] [address] Referral, Self Directions Social History Tobacco Use Types Packs/Day Years Used Date Smoking Tobacco: Never Smokeless Tobacco: Never Alcohol Use Standard Drinks/Week Comments No 0 (1 standard drink = 0.6 oz pur e alcohol) Comments No Sex and Gender Information Value Date Recorded Sex Assigned at Not on file Legal Sex 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 Gender Identity Not on file Sexual Orientation Not on file documented as of this encounter Miscellaneous Notes * Telephone Encounter - Zulma Olivarez - 12/19/2019 10:59 AM CDT Patient called from inside [facility] trying to get directions to registration area for her BX today documented in this encounter Plan of Treatment Not on file documented as of this encounter Visit Diagnoses Not on filedocumented in this encounter Care Teams Orthotic Technician Relationship Specialty Start Date End Date Martha Lawrence MD [address] [place] [address] PCP - General 02/24/19 Zoran Willams Family Medicine 05/18/18 documented as of this encounter
--- OUTSIDE RECORDS SUMMARY | 2024-05-13 22:23 | XMS_ITS | Encounter Summary ---
Author Organization [facility] Healthcare Address [address] [place] [address] Care Team Providers Care Export Freight Clerk Name Role Phone ЕкатеринаZoran silverman Tayo Unavailable Unavailable Martha Lawrence MD Primary Care Provider +1- [phone] Encounter Details Date Type Department Care Team (Late st Contact Info) Description 01/02/2020 Telephone [facility] Advanced [facility] ([facility]) [address] [place] [address] Ilda Arellano RT Social History Tobacco Use Types Packs/Day Years Used Date Smoking Tobacco: Never Smokeless Tobacco: Never Alcohol Use Standard Drinks/Week Comments No 0 (1 standard drink = 0.6 oz pur e alcohol) Comments No Sex and Gender Information Value Date Recorded Sex Assigned at Not on file Legal Sex Female 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
--- OUTSIDE RECORDS SUMMARY | 2024-05-13 22:23 | XMS_ITS | Encounter Summary ---
Author Organization [facility] Healthcare Address [address] [place] [address] Care Team Providers Care Curing Machine Operator Name Role Phone Zoran Willams Unavailable Unavailable Martha Lawrence MD Primary Care Provider +1- [phone] Encounter Details Date Type Department Care Team (Late st Contact Info) Description 01/03/[address] 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 Molecular Infectious Disease Laboratory. The [...] last revised on 2019. Testing performed by: [facility], [address] [place] [address] Nasopharyngeal 01/04/2020 11 :57 AM CDT 01/04/2020 4:37 PM CDT Narrative [facility] ([facility]) - 01/05/2020 8:30 AM CDT Is the patient experiencing any symptoms consistent with COVID (eg. Fever, cough, shortness of breath)?->No What is the reason for testing?->Screening prior to scheduled (>12 hr) surgery or procedure Meggan Martinez MD LAB MICROBIOLOGY - [facility] ORDERABLES Final Result [facility] ([facility]) [address] [facility] Department [place] [address] documented in this encounter Visit Diagnoses Diagnosis Preop testing- Primary Unspecified pre-operative examination Preop testing Unspecified pre-operative examination documented in this encounter Care Teams Curing Machine Operator Relationship Specialty Start Date End Date Martha Lawrence MD [facility] [place] [address] PCP - General 02/24/19 Zoran Willams Family Medicine 05/18/18 documented as of this encounter
--- OUTSIDE RECORDS SUMMARY | 2024-05-13 22:24 | XMS_ITS | Encounter Summary ---
Author Organization [facility] Address [address] [place] [address] Phone Care Team Providers Care Grocery Checker Name Role Phone Zoran Willams Unavailable Unavailable Martha Lawrence MD Primary Care Provider +1- [phone] Reason for Referral * Diagnostic Imaging (Routine) - Closed Specialty Diagnoses / Procedures Referred By Contac t Referred To Contact Diagnoses Nipple discharge in female Procedures US Breast Left Limited Meggan Martinez MD [address] [address] Phone: tel: fax: [address] [address] Referral ID Status Reason Start Date Expiration Date Visits Re quested Visits Authorized [id number] Closed 11/28/2019 12/27/2020 1 1 * Diagnostic Imaging (Routine) - Closed Specialty Diagnoses / Procedures Referred By Contac t Referred To Contact Diagnoses Nipple discharge in female Procedures Diagnostic Mammogram Bilateral W Rm Meggan Martinez MD [address] [address] Phone: tel: fax: [address] [address] Referral ID Status Reason Start Date Expiration Date Visits Re quested Visits Authorized [id number] Closed 11/28/2019 12/27/2020 1 1 Encounter Details Date Type Department Care Team (Late st Contact Info) Description 11/28/2019 Orders Only [facility] Surgery [address] [facility] 5th [place] [address] [place] [address] Meggan Martinez MD [address] [facility] [address] [place] [address] Nipple discharge in female (Primary Dx) Social History Tobacco Use Types Packs/Day Years Used Date Smoking Tobacco: Never Smokeless Tobacco: Never Alcohol Use Standard Drinks/Week Comments No 0 (1 standard drink = 0.6 oz pur e alcohol) Comments No Sex and Gender Information Value Date Recorded Sex Assigned at Not on file Legal Sex Female 10:37 AM BRIDGE EXPERT Gender Identity Not on file Sexual Orientation Not on file documented as of this encounter Plan of Treatment Not on file documented as of this encounter Results * US Breast Left [...] been scheduled to return to the [facility] for biopsy on 12/19/2019 [...] of the LEFT breast was a trained hhas and by Dr. Richards. BREAST PARENCHYMAL COMPOSITION: [...] of the LEFT breast was a trained hhas and by Dr. Richards. BREAST PARENCHYMAL COMPOSITION: [...] has been scheduled to return to the [facility] for biopsy on 12/19/2019 at 2:00 PM. [...] has been scheduled to return to the [facility] for biopsy on 12/19/2019 at 2:00 PM. [...] of the LEFT breast was a trained hhas and by Dr. Richards. BREAST PARENCHYMAL COMPOSITION: [...] of the LEFT breast was a trained hhas and by Dr. Richards. BREAST PARENCHYMAL COMPOSITION: [...] has been scheduled to return to the [facility] for biopsy on 12/19/2019 at 2:00 PM. [...] female documented in this encounter Care Teams Grocery Checker Relationship Specialty Start Date End Date Martha Lawrence MD [address] [place] [address] PCP - General 02/24/19 Zoran Willams Family Medicine 05/18/18 documented as of this encounter
--- OUTSIDE RECORDS SUMMARY | 2024-05-13 22:24 | XMS_ITS | Encounter Summary ---
Author Organization [facility] Healthcare Address [address] [place] [address] Care Team Providers Care Tar And Ammonia Pump Operator Name Role Phone ЕкатеринаZoran silverman Tayo Unavailable Unavailable Martha Lawrence MD Primary Care Provider +1- [phone] Encounter Details Date Type Department Care Team (Late st Contact Info) Description 06/30/2019 11:50 AM JANITORIAL CLEANER Lab [address] [address] Martha Lawrence MD [place], [place] [id number] Discharge Disposition: Discharge to home or self care Social History Tobacco Use Types Packs/Day Years Used Date Smoking Tobacco: Never Smokeless Tobacco: Never Alcohol Use Standard Drinks/Week Comments No 0 (1 standard drink = 0.6 oz pur e alcohol) Comments No Sex and Gender Information Value Date Recorded Sex Assigned at Not on file Legal Sex Female 10:37 AM JANITORIAL CLEANER Gender Identity Not on file Sexual Orientation Not on file documented as of this encounter Discharge Disposition Disposition Code Departure Means Destination Discharge to home or self care documented in this encounter Plan of Treatment Not on file documented as of this encounter Procedures Procedure Name Priority Date/Time Associated Diagnosis Comments EGFR Routine 06/30/2019 11:50 AM JANITORIAL CLEANER DIFFERENTIAL AUTO Routine 06/30/2019 11: 50 AM JANITORIAL CLEANER CBC WITH AUTO DIFFERENTIAL Routine 06/30/2019 11:50 AM JANITORIAL CLEANER TSH Routine 06/30/2019 11:50 AM JANITORIAL CLEANER VITAMIN B12 Routine 06/30/2019 11:50 AM JANITORIAL CLEANER LIPID PANEL Routine 06/30/2019 11:50 AM JANITORIAL CLEANER COMPREHENSIVE METABOLIC PANEL Routine 06/30/2019 11:50 AM JANITORIAL CLEANER documented in this encounter Results * eGFR (06/30/2019 11:50 AM JANITORIAL CLEANER) eGFR 71 mL/min/1.7 3 m2 [facility] ([place]) Comment: Interpretive Data Reference Interval Normal ?>/= 90 mL/min/1.73m2 Mildly decreased* ? 60 - 89 mL/min/1.73m2 Mildly to moderately decreased ?45 - 59 mL/min/1.73m2 Moderately to severely decreased ??30 - 44 mL/min/1.73m2 Severely decreased ?15 - 29 mL/min/1.73m2 Kidney Failure ?< 15 ??mL/min/1.73m2 *Relative to young adult level If -Turkish multiply value by 1.16. Estimated glomerular filtration rate is determined by the CKD-EPI equation recommended by the National Kidney Foundation (KDIGO 2012 Clinical Practice Guideline for the Evaluation and Management of Chronic Kidney Disease. Kidney Intnl Suppl May 2012;3:1). The CKD-EPI equation should not be used for patients with unstable renal function and has not been validated in children and those over 70. Current interpretive data was last reviewed 2015. Blood specimen (specimen) 06/30/2019 11:50 AM JANITORIAL CLEANER 06/30/2019 12:13 PM JANITORIAL CLEANER us Martha Lawrence MD LAB BLOOD ORDERABLES Final Result [facility] ([place]) [address] [place] [address] [place] [address] * Differential, auto (06/30/2019 11:50 AM JANITORIAL CLEANER) Neutrophil abs 4.3 1.7 - 6.5 K/cumm [facility] ([place]) Imm gran abs 0.0 0.0 - 0.1 K/cumm [facility] ([place]) Lymphocyte abs 2.5 0.8 - 3.3 K/cumm [facility] ([place]) Monocyte abs 0.7 0.2 - 0.8 K/cumm [facility] ([place]) Eosinophil abs 0.0 0.0 - 0.5 K/cumm [facility] ([place]) Basophil abs 0.1 0.0 - 0.1 K/cumm [facility] ([place]) Neutrophil pct 56.0 % [facility] ([place]) Comment: Interpretive Data Percent cell count reference ranges are not reported, since discordance with absolute values may lead to misinterpretation of CBC data. Current Interpretive Data was last revised on 2017. Imm gran pct 0.3 % [facility] ([place]) Comment: Interpretive Data Percent cell count reference ranges are not reported, since discordance with absolute values may lead to misinterpretation of CBC data. Current Interpretive Data was last revised on 2017. Lymphocyte pct 32.8 % [facility] ([place]) Comment: Interpretive Data Percent cell count reference ranges are not reported, since discordance with absolute values may lead to misinterpretation of CBC data. Current Interpretive Data was last revised on 2017. Monocyte pct 9.5 % [facility] ([place]) Comment: Interpretive Data Percent cell count reference ranges are not reported, since discordance with absolute values may lead to misinterpretation of CBC data. Current Interpretive Data was last revised on 2017. Eosinophil pct 0.3 % [facility] ([place]) Comment: Interpretive Data Percent cell count reference ranges are not reported, since discordance with absolute values may lead to misinterpretation of CBC data. Current Interpretive Data was last revised on 2017. Basophil pct 1.1 % [facility] ([place]) Comment: Interpretive Data Percent cell count reference ranges are not reported, since discordance with absolute values may lead to misinterpretation of CBC data. Current Interpretive Data was last revised on 2017. Blood specimen (specimen) 06/30/2019 11:50 AM JANITORIAL CLEANER 06/30/2019 12:13 PM JANITORIAL CLEANER us Martha Lawrence MD LAB BLOOD ORDERABLES Final Result [facility] ([place]) 1 [facility] [employer] [place] [employer] [place] [address] * TSH (06/30/2019 11:50 AM JANITORIAL CLEANER) Thyroid Stimulating Hormone 1.02 0.30 - 4.20 mcIUnit/mL [facility] ([place]) Blood specimen (specimen) 06/30/2019 11:50 AM JANITORIAL CLEANER 06/30/2019 12:13 PM JANITORIAL CLEANER Narrative [facility] ([place]) - 06/30/2019 1:03 PM JANITORIAL CLEANER fax results to [phone] us Martha Lawrence MD LAB BLOOD ORDERABLES Final Result Performing Organization Address City/[facility]/ZIP Co de Phone Number [facility] ([place]) [address] [facility] [place] [address] * Vitamin B12 (06/30/2019 11:50 AM JANITORIAL CLEANER) Vitamin B12 625 230 - 1,250 pg/mL [facility] ([place]) Comment:Testing performed by : [facility], [address] [place] [address]., [id number] Blood specimen (specimen) 06/30/2019 11:50 AM JANITORIAL CLEANER 06/30/2019 4:08 PM JANITORIAL CLEANER us Martha Lawrence MD LAB BLOOD ORDERABLES Final Result [facility] ([place]) [address] [facility] [place] [address] * Comprehensive metabolic panel (06/30/2019 11:50 AM JANITORIAL CLEANER) Sodium 138 135 - 145 mmol/L [facility] ([place]) Potassium, pl 3.8 3.3 - 4.9 mmol/L [facility] ([place]) Chloride 100 97 - 110 mmol/L [facility] ([place]) CO2 27 22 - 32 mmol/L [facility] ([place]) Anion gap 11 2 - 15 mmol/L [facility] ([place]) BUN 9 8 - 25 mg/dL [facility] ([place]) Creatinine 1.00 0.60 - 1.10 mg/dL [facility] ([place]) Glucose 93 70 - 199 mg/dL [facility] ([place]) Comment: Interpretive Data Fasting glucose >/= 126 [...] classification and Diagnosis of Diabetes Diabetes Care 2017;40 (Suppl. 1):S11. Current interpretive data was last revised 2017. Calcium 9.5 8.5 - 10.3 mg/dL [facility] ([place]) Bilirubin, total 0.8 0.1 - 1.2 mg/dL [facility] ([place]) Protein, pl 7.2 6.5 - 8.5 g/dL [facility] ([place]) Albumin 4.3 3.5 - 5.0 g/dL [facility] ([place]) Alk phos 82 40 - 130 Units/L [facility] ([place]) ALT 31 7 - 45 Units/L [facility] ([place]) AST 26 10 - 45 Units/L [facility] ([place]) Blood specimen (specimen) 06/30/2019 11:50 AM JANITORIAL CLEANER 06/30/2019 12:13 PM JANITORIAL CLEANER us Martha Lawrence MD LAB BLOOD ORDERABLES Final Result [facility] ([place]) 1 [facility] [place] [address] * (ABNORMAL) Lipid panel (06/30/2019 11:50 AM JANITORIAL CLEANER) [facility] Cholesterol 146 30 - 199 mg/dL [facility] ([place]) Comment: Interpretive Data Ages < or = [...] Data was last revised on 2017. Triglycerides 202(H) <=149 mg/dL [facility] ([place]) Comment: Interpretive Data Ages < or = [...] Data was last revised on 2017. HDL 36(L) >=40 mg/dL [facility] ([place]) Comment: Interpretive Data Ages < or = [...] was last revised on 2017. LDL, calculated 70 <=129 mg/dL [facility] ([place]) Comment: Interpretive Data Ages < or = [...] was last revised on 2017. Non-HDL Cholesterol 110 mg/dL [facility] ([place]) Comment: Interpretive Data Ages < or = [...] was last revised on 2017. Chol/HDL ratio 4 [facility] ([place]) Blood specimen (specimen) 06/30/2019 11:50 AM JANITORIAL CLEANER 06/30/2019 12:13 PM JANITORIAL CLEANER Martha Lawrence MD LAB BLOOD ORDERABLES Final Result [facility] ([place]) 1 [facility] Department [place] [address] * (ABNORMAL) CBC with auto differential (06/30/2019 11:50 AM JANITORIAL CLEANER) WBC 7.6 3.8 - 9.9 K/cumm [facility] ([place]) Hgb 13.5 11.9 - 15.5 g/dL [facility] ([place]) Hct 42.2 35.6 - 45.5 % [facility] ([place]) Plt 426(H) 150 - 400 K/cumm [facility] ([place]) MPV 9.7 9.1 - 12.3 fL [facility] ([place]) RBC 5.81(H) 3.90 - 5.20 M/cumm [facility] ([place]) MCV 72.6(L) 81.3 - 96.4 fL [facility] ([place]) MCH 23.2(L) 27.1 - 33.3 pg [facility] ([place]) MCHC 32.0(L) 32.3 - 35.7 g/dL [facility] ([place]) RDW CV 15.3(H) 11.1 - 14.9 % [facility] ([place]) RDW SD 38.9 35.7 - 48.1 fL [facility] ([place]) NRBC abs 0.00 0.00 - 0.01 K/cumm [facility] ([place]) Blood specimen (specimen) 06/30/2019 11:50 AM JANITORIAL CLEANER 06/30/2019 12:13 PM JANITORIAL CLEANER us Martha Lawrence MD LAB BLOOD ORDERABLES Final Result [facility] ([place]) 1 [facility] [place] [address] documented in this encounter Visit Diagnoses Not on filedocumented in this encounter Care Teams Tar And Ammonia Pump Operator Relationship Specialty Start Date End Date Martha Lawrence MD [address] [place] [address] PCP - General 02/24/19 Zoran Willams Family Medicine 05/18/18 documented as of this encounter
--- OUTSIDE RECORDS SUMMARY | 2024-05-13 22:24 | XMS_ITS | Encounter Summary ---
Author Organization [facility] Healthcare Address [address] [place] [address] Care Team Providers Care Alternative Energy Engineer Name Role Phone Zoran Willams Unavailable Unavailable Martha Lawrence MD Primary Care Provider +1- [phone] Encounter Details Date Type Department Care Team (Late st Contact Info) Description 06/30/2019 11:45 AM CALL OUT OPERATOR Lab [address] [address] [place] [address] [place] [address] Discharge Disposition: Discharge to home or self care Social History Tobacco Use Types Packs/Day Years Used Date Smoking Tobacco: Never Smokeless Tobacco: Never Alcohol Use Standard Drinks/Week Comments No 0 (1 standard drink = 0.6 oz pur e alcohol) Comments No Sex and Gender Information Value Date Recorded Sex Assigned at Not on file Legal Sex Female 10:37 AM CALL OUT OPERATOR Gender Identity Not on file Sexual Orientation Not on file documented as of this encounter Discharge Disposition Disposition Code Departure Means Destination Discharge to home or self care documented in this encounter Plan of Treatment Not on file documented as of this encounter Procedures Procedure Name Priority Date/Time Associated Diagnosis Comments EGFR Routine 06/30/2019 11:50 AM CALL OUT OPERATOR VITAMIN D 25 HYDROXY Routine 06/30/2019 11:50 AM CALL OUT OPERATOR INSULIN, TOTAL Routine 06/30/2019 11:50 AM CALL OUT OPERATOR TESTOSTERONE, TOTAL AND FREE, SERUM Routine 06/30/2019 11:50 AM CALL OUT OPERATOR COMPREHENSIVE METABOLIC PANEL Routine 06/30/2019 11:50 AM CALL OUT OPERATOR documented in this encounter Results * eGFR (06/30/2019 11:50 AM CALL OUT OPERATOR) eGFR 71 mL/min/1.7 3 m2 [facility] ([place]) Comment: Interpretive Data Reference Interval Normal ?>/= 90 mL/min/1.73m2 Mildly decreased* ? 60 - 89 mL/min/1.73m2 Mildly to moderately decreased ?45 - 59 mL/min/1.73m2 Moderately to severely decreased ??30 - 44 mL/min/1.73m2 Severely decreased ?15 - 29 mL/min/1.73m2 Kidney Failure ?< 15 ??mL/min/1.73m2 *Relative to young adult level If -Colombian multiply value by 1.16. Estimated glomerular filtration [...] 2015. Blood specimen (specimen) 06/30/2019 11:50 AM CALL OUT OPERATOR 06/30/2019 12:13 PM CALL OUT OPERATOR us Aylin Nguyen MD LAB BLOOD ORDERABLES [facility] Result [facility] ([place]) 1 [facility] Department [place] [address] * (ABNORMAL) Vitamin D 25 hydroxy (06/30/2019 11:50 AM CALL OUT OPERATOR) Vitamin D 25-OH 29(L) 30 - 80 ng/mL [facility] ([place]) Blood specimen (specimen) 06/30/2019 11:50 AM CALL OUT OPERATOR 06/30/2019 12:13 PM CALL OUT OPERATOR Aylin Nguyen MD LAB BLOOD ORDERABLES [facility] Result Performing Organization Address [facility]/ZIP Co de Phone Number [facility] ([place]) 1 [facility] Department [place] [address] * Testosterone, Total and Free, Serum (06/30/2019 11:50 AM CALL OUT OPERATOR) [facility] Testosterone 16 8 - 60 ng/dL [facility] ([place]) Comment: ADDITIONAL INFORMATION Testing performed by Liquid Chromatography-Tandem Mass Spectrometry (LC-MS/MS). This test was developed and its performance characteristics determined by [facility] in a manner consistent with CLIA requirements. This test has not been cleared or approved by the U.S. Food and Drug Administration. Test Performed by: [place] [address] Filtration Plant Operator: Shade Piña M.D. Ph.D.; CLIA# [id number] Testosterone, free 0.40 0.06 - 1.00 ng/dL [facility] ([place]) Comment: ADDITIONAL INFORMATION Testing performed by [facility]. This test was developed and its performance characteristics determined by [facility] in a manner consistent with CLIA requirements. This test has not been cleared or approved by the U.S. Food and Drug Administration. Blood specimen (specimen) 06/30/2019 11:50 AM CALL OUT OPERATOR 06/30/2019 12:13 PM CALL OUT OPERATOR Aylin Nguyen MD LAB BLOOD ORDERABLES [facility] Result Performing Organization Address City/[facility]/ZIP Co de Phone Number [facility] ([place]) 1 [facility] Department [place] [address] * Comprehensive metabolic panel (06/30/2019 11:50 AM CALL OUT OPERATOR) Sodium 137 135 - 145 mmol/L [facility] ([place]) Potassium, pl 3.9 3.3 - 4.9 mmol/L [facility] ([place]) Chloride 100 97 - 110 mmol/L [facility] ([place]) CO2 27 22 - 32 mmol/L [facility] ([place]) Anion gap 10 2 - 15 mmol/L [facility] ([place]) BUN 9 8 - 25 mg/dL [facility] ([place]) Creatinine 1.01 0.60 - 1.10 mg/dL [facility] ([place]) [...] 1.2 mg/dL [facility] ([place]) Protein, pl 7.3 6.5 - 8.5 g/dL [facility] ([place]) Albumin 4.3 3.5 - 5.0 g/dL [facility] ([place]) Alk phos 84 40 - 130 Units/L [facility] ([place]) ALT 31 7 - 45 Units/L [facility] ([place]) AST 26 10 - 45 Units/L [facility] ([place]) Blood specimen (specimen) 06/30/2019 11:50 AM CALL OUT OPERATOR 06/30/2019 12:13 PM CALL OUT OPERATOR Narrative [facility] ([place]) - 06/30/2019 12:48 PM CALL OUT OPERATOR fax results to [phone] Aylin Nguyen MD LAB BLOOD ORDERABLES [facility] Result Performing Organization Address City/[facility]/ZIP Co de Phone Number [facility] ([place]) 1 [facility] [place] [employer] [place] [address] * (ABNORMAL) Insulin, total (06/30/2019 11:50 AM CALL OUT OPERATOR) Insulin 41.1(H) 2.6 - 25.0 mcIUnit/mL [facility] ([place]) Comment:Testing performed by : [facility], 1 [place]., [address] Blood specimen (specimen) 06/30/2019 11:50 AM CALL OUT OPERATOR 06/30/2019 5:07 PM CALL OUT OPERATOR Aylin Nguyen MD LAB BLOOD ORDERABLES [facility] Result Performing Organization Address City/[facility] Co de Phone Number [facility] ([place]) 1 [facility] [place] [address] documented in this encounter Visit Diagnoses Not on filedocumented in this encounter Care Teams Alternative Energy Engineer Relationship Specialty Start Date End Date Martha Lawrence MD [address] [facility] [place] [address] PCP - General 02/24/19 Zoran Willams Family Medicine 05/18/18 documented as of this encounter
--- OUTSIDE RECORDS SUMMARY | 2024-05-13 22:24 | XMS_ITS | Encounter Summary ---
Author Organization [facility] Care Team Providers Care Account Leader Name Role Phone Zoran Willams Unavailable Unavailable Martha Lawrence MD Primary Care Provider [phone] Encounter Details Date Type Department Care Team (Latest Contact Info) Description 02/24/2019 Travel Social History Tobacco Use Types Packs/Day Years Used Date Smoking Tobacco: Never Smokeless Tobacco: Never Alcohol Use Standard Drinks/Week Comments No 0 (1 standard drink = 0.6 oz pur e alcohol) Comments No Sex and Gender Information Value Date Recorded Sex Assigned at Not on file Legal Sex Female 10:37 AM BILLIARD TABLE REPAIRER Gender Identity Not on file Sexual Orientation Not on file documented as of this encounter Plan of Treatment Not on file documented as of this encounter Visit Diagnoses Not on filedocumented in this encounter Care Teams Account Leader Relationship Specialty Start Date End Date Martha Lawrence MD [address] [place] [address] PCP - General 02/24/19 Zoran Willams Family Medicine 05/18/18 documented as of this encounter
--- OUTSIDE RECORDS SUMMARY | 2024-05-13 22:24 | XMS_ITS | Encounter Summary ---
Author Organization [facility] Healthcare Address [address] [place] [address] Care Team Providers Care Farmworker Livestock Name Role Phone No, Physician Primary Care Provider [phone] Zoran Willams Unavailable Unavailable Encounter Details Date Type Department Care Team (Late st Contact Info) Description 07/18/2018 6:30 AM CDT Lab [address] [address] [place] [address] [place] [address] Discharge Disposition: Discharge to home or self care Social History Tobacco Use Types Packs/Day Years Used Date Smoking Tobacco: Never Smokeless Tobacco: Never Alcohol Use Standard Drinks/Week Comments No 0 (1 standard drink = 0.6 oz pur e alcohol) Comments Unknown Sex and Gender Information Value Date Recorded Sex Assigned at Not on file Legal Sex Female 10:37 AM CLOTH BLEACHING RANGE OPERATOR CHIEF Gender Identity Not on file Sexual Orientation Not on file documented as of this encounter Discharge Disposition Disposition Code Departure Means Destination Discharge to home or self care documented in this encounter Plan of Treatment Not on file documented as of this encounter Procedures Procedure Name Priority Date/Time Associated Diagnosis Comments CORTISOL Routine 07/18/2018 6:31 AM CDT documented in this encounter Results * (ABNORMAL) Cortisol (07/18/2018 6:31 AM CDT) Cortisol <0.1(L) 4.8 - 19.5 mcg/dl [facility] ([place]) Comment: Interpretive Data Normal Range: ??4.8 - 19.5 mcg/dL; ??Evening: ??Half of morning value. ?? This analyte undergoes marked diurnal variation. ??Ranges indicated apply to morning specimens. ?? Current interpretive data was last revised 2018. Testing performed by: [facility], [address] [place] [address]., [address] Blood specimen (specimen) 07/18/2018 6:31 AM CDT 07/18/2018 11:10 AM CDT Narrative [facility] ([place]) - 07/18/2018 11:38 AM CDT fax [phone] us Aylin Nguyen MD LAB BLOOD ORDERABLES [facility] Result [facility] ([place]) 1 [facility] Department [place] [address] documented in this encounter Visit Diagnoses Not on filedocumented in this encounter Care Teams Farmworker Livestock Relationship Specialty Start Date End Date No, Physician PCP - General 05/18/18 01/10/19 Zoran Willams Family Medicine 05/18/18 documented as of this encounter
--- OUTSIDE RECORDS SUMMARY | 2024-05-13 22:24 | XMS_ITS | Encounter Summary ---
Author Organization [facility] Healthcare Address [address] [place] [address] Care Team Providers Care French Teacher Name Role Phone Dewayne Covarrubias MD Primary Care Provider [phone] Encounter Details Date Type Department Care Team (Late st Contact Info) Description 03/26/2013 7:35 AM KNOWLEDGE MANAGEMENT ADVISOR - 03/26/2013 7:53 AM KNOWLEDGE MANAGEMENT ADVISOR Hospital Encounter [facility] Rico Castellon MD [address] [address] Brachial neuritis Social History Tobacco Use Types Packs/Day Years Used Date Smoking Tobacco: Never Alcohol Use Standard Drinks/Week Comments No 0 (1 standard drink = 0.6 oz pur e alcohol) Comments Unknown Sex and Gender Information Value Date Recorded Sex Assigned at Not on file Legal Sex Female 10:37 AM KNOWLEDGE MANAGEMENT ADVISOR Gender Identity Not on file Sexual Orientation Not on file documented as of this encounter Plan of Treatment Not on file documented as of this encounter Visit Diagnoses Diagnosis Brachial neuritis Brachial neuritis or radiculitis nos documented in this encounter Care Teams French Teacher Relationship Specialty Start Date End Date Dewayne Covarrubias MD PCP - General 06/12/10 10/11/17 documented as of this encounter
--- OUTSIDE RECORDS SUMMARY | 2024-05-13 22:24 | XMS_ITS | Encounter Summary ---
Author Organization [facility] Healthcare Address [address] [place] [address] Care Team Providers Care Java J2Ee Architect Name Role Phone Zoran Willams Primary Care Provider Unavaila ble Encounter Details Date Type Department Care Team (Late st Contact Info) Description 04/02/2018 4:30 PM POPPED CORN OVEN ATTENDANT Lab [address] [address] Acute cystitis without hematuria Social History Tobacco Use Types Packs/Day Years Used Date Smoking Tobacco: Never Smokeless Tobacco: Never Alcohol Use Standard Drinks/Week Comments No 0 (1 standard drink = 0.6 oz pur e alcohol) Comments Unknown Sex and Gender Information Value Date Recorded Sex Assigned at Not on file Legal Sex Female 10:37 AM POPPED CORN OVEN ATTENDANT Gender Identity Not on file Sexual Orientation Not on file documented as of this encounter Plan of Treatment Not on file documented as of this encounter Procedures Procedure Name Priority Date/Time Associated Diagnosis Comments URINE CULTURE Routine 04/02/2018 12:27 PM POPPED CORN OVEN ATTENDANT Acute cystitis without hematuria documented in this encounter Results * Urine culture Urine, clean voided (04/02/2018 12:27 PM POPPED CORN OVEN ATTENDANT) Report Final Report: Less than 100,000 colonies/mL (clinically insignificant growth based on current clinical standards) LILIAN OROZCO Comment:Testing performed by : [facility], [address] [place] [address] Organism (CLINICALLY INSIGNIFICANT GROWTH LILIAN OROZCO Urine, clean voided 04/02/2018 12:27 PM POPPED CORN OVEN ATTENDANT 04/02/2018 8:15 PM POPPED CORN OVEN ATTENDANT Narrative LILIAN PAM - 04/04/2018 10:10 AM POPPED CORN OVEN ATTENDANT Testing performed by [facility] ([phone]) Homer Contreras NP LAB MICROBIOLOGY - GENERAL OR DERABLES Final Result LILIAN [address] Department [place] [address] documented in this encounter Visit Diagnoses Diagnosis Acute cystitis without hematuria documented in this encounter Care Teams Java J2Ee Architect Relationship Specialty Start Date End Date Zoran Willams PCP - General Family Medicine 10/26/17 05/17/18 documented as of this encounter
--- OUTSIDE RECORDS SUMMARY | 2024-05-13 22:24 | XMS_ITS | Encounter Summary ---
Author Organization [facility] Healthcare Address [address] [place] [address] Care Team Providers Care Ethical Hacker Name Role Phone Dewayne Covarrubias MD Primary Care Provider [phone] Encounter Details Date Type Department Care Team (Late st Contact Info) Description 05/01/2014 3:44 PM LEAD CLINICAL RESEARCH COORDINATOR - 05/01/2014 11:59 PM LEAD CLINICAL RESEARCH COORDINATOR Hospital Encounter [facility] Dewayne Covarrubias MD [address] [address] Routine general medical examination at a health care facility; Vitamin D deficiency Social History Tobacco Use Types Packs/Day Years Used Date Smoking Tobacco: Never Alcohol Use Standard Drinks/Week Comments No 0 (1 standard drink = 0.6 oz pur e alcohol) Comments Unknown Sex and Gender Information Value Date Recorded Sex Assigned at Not on file Legal Sex Female 10:37 AM LEAD CLINICAL RESEARCH COORDINATOR Gender Identity Not on file Sexual Orientation Not on file documented as of this encounter Plan of Treatment Not on file documented as of this encounter Visit Diagnoses Diagnosis Routine general medical examination at a health care facility Vitamin D deficiency documented in this encounter Care Teams Ethical Hacker Relationship Specialty Start Date End Date Dewayne Covarrubias MD PCP - General 06/12/10 10/11/17 documented as of this encounter
--- OUTSIDE RECORDS SUMMARY | 2024-05-13 22:24 | XMS_ITS | Encounter Summary ---
Author Organization [facility] Address [address] [place] [address] Care Team Providers Care Tax Compliance Officer Name Role Phone Zoran Willams Unavailable Unavailable Martha Lawrence MD Primary Care Provider [phone] Reason for Visit * Reason Comments Follow-up left ear Encounter Details Date Type Department Care Team (Late st Contact Info) Description 07/06/2019 10:20 AM DIRECTOR ENERGY Office Visit [facility] - [facility] [address] [place] [id number] Roya Montes, [address] [facility] [address] [place] [address] ETD (Eustachian tube dysfunction), left (Primary Dx) Social History Tobacco Use Types Packs/Day Years Used Date Smoking Tobacco: Never Smokeless Tobacco: Never Alcohol Use Standard Drinks/Week Comments No 0 (1 standard drink = 0.6 oz pur e alcohol) Comments No Sex and Gender Information Value Date Recorded Sex Assigned at Not on file Legal Sex Female 10:37 AM DIRECTOR ENERGY Gender Identity Not on file Sexual Orientation Not on file documented as of this encounter Last Filed Vital Signs Vital Sign Reading Time Taken Comments Blood Pressure 134/100 07/06/2019 10:34 AM DIRECTOR ENERGY Pulse 88 07/06/2019 10:34 AM DIRECTOR ENERGY Temperature - - Respiratory Rate - - Oxygen Saturation - - Inhaled Oxygen Concentration - - Weight 111.1 kg (245 lb) 07/06/2019 10:34 AM DIRECTOR ENERGY Height 167.6 cm (5' 6 ) 07/06/2019 10:34 AM DIRECTOR ENERGY Body Mass Index 39.54 07/06/2019 10:34 AM DIRECTOR ENERGY documented in this encounter Patient Instructions * Patient Instructions* Roya Montes DO - 07/06/2019 10:20 AM DIRECTOR ENERGY Bilateral myringotomy with T-tube placement Risks and complications discussed including anesthesia, bleeding, infection, hearing loss, ear tubes may fall out early, fall inwards, stay in longer than a few years, get clogged, fall out and leavea hole in the ear drum that would need to be patched, drain clear fluid. 5 drops into each ear twice daily for 5 days How to Use Ear Drops Warm them up in your hand or under your arm for 2 minutes Then lay on your side with ear to have drops placed up Then pull back on the ear to open the ear canal Place the drops, then massage outer portion of ear to distribute ear drops for 2 seconds Let the drops sit in the ear for [address] cotton ball and sit up Remove the cotton ball after less than ten minutes Repeat if instructed to the other ear Avoid ear cleaning techniques Avoid water to ear CTOR ENERGY CTOR ENERGY CTOR ENERGY CTOR ENERGY documented in this encounter Ordered Prescriptions Prescription Sig Dispense Quantity Refills Last Filled Start Date End Date ofloxacin (OCUFLOX) 0.3 % ophthalmic solutionIndication s:ETD (Eustachian tube dysfunction), left Administer 5 drops into each ear 2 (two) times a day for 5 days 1 Bottle 1 07/06/2019 0 documented in this encounter Progress Notes * Roya Montes DO - 07/06/2019 10:20 AM CST ENT Progress Note Reason for Follow up: Hearing loss Requesting Provider: No att. providers found SUBJECTIVE: Patient was following up for hearing loss. HPI: Micole reported complaint being 80% better, no ear drainage. Taking nasal saline, Flonase and tolerated Cefdinir Last seen: 05/26/2019 Acute recurrent maxillary sinusitis (Primary) Assessment & Plan: Take Cefdinir with a meal daily Nasal saline spray (Simply saline, [employer], [place], [place]) 2 second sprays or 2 squeezes into [...] left ear, will consider ear tube placement ?? Orders: - cefdinir (OMNICEF) 300 mg capsule; Take 2 capsules (600 mg total) by mouth daily for 14 days - fluticasone propionate (FLONASE) 50 mcg/actuation nasal spray; Administer 2 sprays into each nostril daily ?? Left ear pain Assessment & Plan: Take Cefdinir with a meal daily Nasal saline spray (Simply saline, [employer], [place], [place]) 2 second sprays or 2 squeezes into [...] left ear, will consider ear tube placement ?? Orders: - Ambulatory referral to ENT ?? ETD (Eustachian tube dysfunction), left Assessment & Plan: Take Cefdinir with a meal daily Nasal saline spray (Simply saline, [employer], [place], [place]) 2 second sprays or 2 squeezes into [...] left ear, will consider ear tube placement ?? Orders: - cefdinir (OMNICEF) 300 mg capsule; Take 2 capsules (600 mg total) by mouth daily for 14 days - fluticasone propionate (FLONASE) 50 mcg/actuation nasal spray; Administer 2 sprays into each nostril daily ?? Hearing loss of left ear, unspecified hearing loss type Assessment & Plan: Hearing test right before follow up ?? Orders: - Audiogram; Future Current Outpatient Medications on File Prior to Visit Medication Sig Dispense Refill ??? albuterol HFA (PROVENTIL HFA,VENTOLIN HFA,PROAIR HFA) 90 mcg/actuation inhaler albuterol sulfate HFA 90 mcg/actuation aerosol inhaler ??? amLODIPine (NORVASC) 10 mg tablet ??? cholecalciferol (VITAMIN D-3) 5,000 unit tablet Vitamin D3 125 mcg (5,000 unit) tablet TAKE 1 TABLET BY MOUTH EVERY DAY IN THE MORNING ??? fluticasone propionate (FLONASE) 50 mcg/actuation nasal spray Administer 2 sprays into each nostril daily 16 g 0 ??? latanoprost (XALATAN) 0.005 % ophthalmic solution latanoprost 0.005 % eye drops INSTILL 1 DROP INTO RIGHT EYE AT BEDTIME ??? metFORMIN XR (GLUCOPHAGE XR) 500 mg 24 hr tablet ??? spironolactone (ALDACTONE) 50 mg tablet ??? venlafaxine (EFFEXOR) 75 mg tablet Take 75 mg by mouth daily. 0 ??? fluticasone propionate (FLONASE) 50 mcg/actuation nasal spray Administer 2 sprays into each nostril daily 16 g 11 No current facility-administered medications on file prior to visit. Allergies Allergen Reactions ??? Sulfasalazine Hives and Rash ??? Sulfa (Sulfonamide Antibiotics) Eye irritation Reaction: itchy eyes, , ??? Sulfanilamide Other (See comments) Reaction: Conjunctivitis, ??? Oxycodone-Acetaminophen Diarrhea, Nausea Only and Vomiting ??? Penicillins Hives and Other (See comments) Reaction: Reaction: hives, , Reaction: Hives, , OBJECTIVE: Vitals BP 134/100 (BP Location: Left arm, Patient Position: Sitting) Pulse 88 Ht 167.6 cm (5' 6 ) Wt 111.1 kg (245 lb) BMI 39.54 kg/m?? Review of Systems HENT: Positive for hearing loss. Physical Exam HENT: Head: Normocephalic and atraumatic. Right Ear: External ear normal. Left Ear: External ear normal. Right ear: Tympanic membrane was retracted Left ear: Tympanic membrane was retracted, good movement with Valsalva Audiogram: 06/30/2019 The pure tone results on the right were normal to mild CHL The pure tone results on the left were mild CHL Word recognition score on the right: 100% Word recognition score on the left: 100% Tympanogram on the right was type C Tympanogram on the left was type C Reviewed findings with the patient and all questions were answered. Myringotomy and tube Date/Time: 07/06/2019 10:53am Performed by: ROYA MONTES. Authorized by: ROYA MONTES Preparation: Patient was prepped and draped in the usual sterile fashion. Local anesthesia used: yes Anesthesia: Local anesthesia used: yes Local Anesthetic: topical anesthetic Sedation: Patient sedated: no Patient tolerance: Patient tolerated the procedure well with no immediate complications Comments: Topical phenol was applied to the left tympanic membrane and after frosting was noted, myringotomy blade was used to make incision from umbo to annulus. Grade 1 effusion was suctioned and Salazar modified T-tube was placed without difficulty. Ciprodex drops were placed and let sit for 10minutes. This was then repeated in a similar fashion in the right ear with a Salazar modified T-tube, Grade 1 effusion was suctioned. Assessment & Plan: Diagnoses and all orders for this visit: ETD (Eustachian tube dysfunction), left (Primary) Assessment & Plan: Bilateral myringotomy with T-tube placement in Office today Risks and complications discussed including anesthesia, bleeding, infection, hearing loss, ear tubes may fall out early, fall inwards, stay in longer than a few years, get clogged, fall out and leavea hole in the ear drum that would need to be patched, drain clear fluid. Orders: - ofloxacin (OCUFLOX) 0.3 % ophthalmic solution; Administer 5 drops into each ear 2 (two) times a day for 5 days Roya Montes DO CTOR ENERGY documented in this encounter Miscellaneous Notes * Assessment & Plan Note - Roya Montes DO - 07/06/2019 10:51 AM DIRECTOR ENERGY Associated Problem(s): ETD (Eustachian tube dysfunction), left Bilateral myringotomy with T-tube placement in Office today Risks and complications discussed including anesthesia, bleeding, infection, hearing loss, ear tubes may fall out early, fall inwards, stay in longer than a few years, get clogged, fall out and leavea hole in the ear drum that would need to be patched, drain clear fluid. CTOR ENERGY CTOR ENERGY documented in this encounter Plan of Treatment Not on file documented as of this encounter Visit Diagnoses Diagnosis ETD (Eustachian tube dysfunction), left- Primary documented in this encounter Care Teams Tax Compliance Officer Relationship Specialty Start Date End Date Martha Lawrence MD [address] [place] [address] PCP - General 02/24/19 Zoran Willams Family Medicine 05/18/18 documented as of this encounter
--- OUTSIDE RECORDS SUMMARY | 2024-05-13 22:24 | XMS_ITS | Encounter Summary ---
Author Organization [facility] Address [address] [place] [address] Care Team Providers Care Video Tape Transferrer Name Role Phone Zoran Willams Primary Care Provider Helenaa ble Encounter Details Date Type Department Care Team (Late st Contact Info) Description 04/02/2018 Orders Only [facility] [address] [place] [address] [place] [address] Yuliana Velasquez MA Social History Tobacco Use Types Packs/Day Years Used Date Smoking Tobacco: Never Smokeless Tobacco: Never Alcohol Use Standard Drinks/Week Comments No 0 (1 standard drink = 0.6 oz pur e alcohol) Comments Unknown Sex and Gender Information Value Date Recorded Sex Assigned at Not on file Legal Sex Female 10:37 AM CUPOLA TENDER Gender Identity Not on file Sexual Orientation Not on file documented as of this encounter Plan of Treatment Not on file documented as of this encounter Visit Diagnoses Not on filedocumented in this encounter Historical Medications * This list may reflect changes made after this encounter. amLODIPine (NORVASC) 5 mg tablet Take 5 mg by mouth daily. 0 01/25/2018 05/20/2019 added in this encounter Care Teams Video Tape Transferrer Relationship Specialty Start Date End Date Zoran Willams PCP - General Family Medicine 10/26/17 05/17/18 documented as of this encounter
--- OUTSIDE RECORDS SUMMARY | 2024-05-13 22:24 | XMS_ITS | Encounter Summary ---
Author Organization [facility] Address [address] [place] [address] Care Team Providers Care Machine Ii Coremaker Name Role Phone Zoran Willams Unavailable Unavailable Martha Lawrence MD Primary Care Provider [phone] Encounter Details Date Type Department Care Team (Late st Contact Info) Description 05/22/2019 Telephone [facility] E[facility] Specialists - [facility] [address] [place] [address] Brit Montes [address] [address] [place], [place] [id number] Social History Tobacco Use Types Packs/Day Years Used Date Smoking Tobacco: Never Smokeless Tobacco: Never Alcohol Use Standard Drinks/Week Comments No 0 (1 standard drink = 0.6 oz pur e alcohol) Comments No Sex and Gender Information Value Date Recorded Sex Assigned at Not on file Legal Sex Female 10:37 AM HEALTHCARE ACCOUNT MANAGER Gender Identity Not on file Sexual Orientation Not on file documented as of this encounter Miscellaneous Notes * Telephone Encounter - Maricruz Guardado - 05/24/2019 2:09 PM CST I got Cesario in this Wednesday as we had a cancellation due to upcoming weather. THCARE ACCOUNT MANAGER * Telephone Encounter - Brit Montes DO - 05/24/2019 11:07 AM HEALTHCARE ACCOUNT MANAGER Please schedule her for Kathy at 4 pm THCARE ACCOUNT MANAGER * Telephone Encounter - Aylin Gil MA - 05/23/2019 9:02 AM CST Cannot give medical advise until patient becomes a patient of ours. Will keep patient on cancellation list and if someone cancels we will move the patient up. THCARE ACCOUNT MANAGER * Telephone Encounter - Maricruz Guardado - 05/22/2019 3:18 PM CST Cesario is scheduled for June 13 and was wondering what she should do in the meantime since she has already been to Urgent Care. She is on ear drops and Flonase but says this is very painful. THCARE ACCOUNT MANAGER * Telephone Encounter - Aylin Gil MA - 05/22/2019 10:[address] patient on cancellation list but also schedule for first available. THCARE ACCOUNT MANAGER * Telephone Encounter - Maricruz Guardado - 05/22/2019 9:31 AM CST Cesario called and said she went to Urgent Care over the weekend and saw Brijesh Randolphing with bad ear pain. She said Brijesh said there was no infection but eardrum was sunken in and he thought there might be a puncture. He was worried about hearing loss. Cesario said she cannot talk in her normal voice because it hurts her ear and she is starting to experience some hearing loss. I told her we would callher back after I sent message to Dr. Montes. THCARE ACCOUNT MANAGER documented in this encounter Plan of Treatment Not on file documented as of this encounter Visit Diagnoses Not on filedocumented in this encounter Care Teams Machine Ii Coremaker Relationship Specialty Start Date End Date Martha Lawrence MD [address] [place] [address] [place] [address] PCP - General 02/24/19 Zoran Willams Family Medicine 05/18/18 documented as of this encounter
--- OUTSIDE RECORDS SUMMARY | 2024-05-13 22:24 | XMS_ITS | Encounter Summary ---
Author Organization [facility] Address [address] [place] [address] Care Team Providers Care Pattern Generator Operator Name Role Phone Zoran Willams Unavailable Unavailable Martha Lawrence MD Primary Care Provider [phone] Reason for Visit * Reason Comments Ear Problem left ear . * Consultation (Routine) - Closed Specialty Diagnoses / Procedures Referred By Joelle lopez Referred To Contact Otolaryngology Diagnoses Left ear pain Homer Contreras, [place] [address] [place] [address] Phone: tel: Brit Montes DO Phone: tel: fax: Referral ID Status Reason Start Date Expiration Date V isits Requested Visits Authorized [id number] Closed Specialty Services Required 05/20/2019 11/28/2020 1 1 Encounter Details Date Type Department Care Team (Late st Contact Info) Description 05/26/2019 10:30 AM LOCAL TELEPHONE OPERATOR Office Visit [facility] E[facility]ists - [facility] [address] [place] [address] Brit Montes, [address] [place] [address] [address] [place], [place] [id number] Acute recurrent maxillary sinusitis (Primary Dx); Left ear pain; ETD (Eustachian tube dysfunction), left; Hearing loss of left ear, unspecified hearing loss type Social History Tobacco Use Types Packs/Day Years Used Date Smoking Tobacco: Never Smokeless Tobacco: Never Alcohol Use Standard Drinks/Week Comments No 0 (1 standard drink = 0.6 oz pur e alcohol) Comments No Sex and Gender Information Value Date Recorded Sex Assigned at Not on file Legal Sex Female 10:37 AM LOCAL TELEPHONE OPERATOR Gender Identity Not on file Sexual Orientation Not on file documented as of this encounter Last Filed Vital Signs Vital Sign Reading Time Taken Comments Blood Pressure 144/104 05/26/2019 10:18 AM LOCAL TELEPHONE OPERATOR Pulse 106 05/26/2019 10:18 AM LOCAL TELEPHONE OPERATOR Temperature 37.1 ??C (98.8 ??F) 05/26/2019 10:[address] Respiratory Rate - - Oxygen Saturation - - Inhaled Oxygen Concentration - - Weight 111.1 kg (245 lb) 05/26/2019 10:18 AM LOCAL TELEPHONE OPERATOR Height 167.6 cm (5' 6 ) 05/26/2019 10:18 AM LOCAL TELEPHONE OPERATOR Body Mass Index 39.54 05/26/2019 10:18 AM LOCAL TELEPHONE OPERATOR documented in this encounter Patient Instructions * Patient Instructions* Brit Montes DO - 05/26/2019 10:30 AM LOCAL TELEPHONE OPERATOR Take Cefdinir with a meal daily Nasal saline spray (Simply saline, Little Remedies, [place], [place]) 2 second sprays or 2 squeezes into [...] left ear, will consider ear tube placement L TELEPHONE OPERATOR L TELEPHONE OPERATOR L TELEPHONE OPERATOR documented in this encounter Ordered Prescriptions Prescription Sig Dispense Quantity Refills Last Filled Start Date End Date fluticasone propionate (FLONASE) 50 mcg/actuation nasal sprayIndications:A cute recurrent maxillary sinusitis,ETD (Eustachian tube dysfunction), left Administer 2 sprays into each nostril daily 16 g 11 05/26/2019 0 cefdinir (OMNICEF) 300 mg capsuleIndications :Acute recurrent maxillary sinusitis,ETD (Eustachian tube dysfunction), left Take 2 capsules (600 mg total) by mouth daily for 14 days 28 capsule 05/26/2019 0 documented in this encounter Progress Notes * Brit Montes, DO - 05/26/2019 10:30 AM CST ENT Consult Reason for Consult: sinus and ear congestion Requesting Provider: Homer Contreras NP SUBJECTIVE: Patient is a 39 y.o. female with chief complaint of sinus and ear congestion. HPI: Micole reported location of complaint was sinus and ears. This compliant quality was reported as constant and has a severity of moderate. The duration of this complaint was the last 3 weeks for sinuscongestion. Onset of this problems was 3 weeks ago and was associated with Seen in the Urgent care for Flonase and Ofloxacin 4 drops twice daily last 8 days ago, no improvement in congestion, sharp painis intermittent. 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 Depression Depression ??? Glaucoma glaucoma ??? HX OTHER MEDICAL L/R cataract extraction ??? HX OTHER MEDICAL Detached Retina ??? HX OTHER MEDICAL Scar tissure removal Left Eye ??? HX OTHER MEDICAL myringotomy tubes ??? HX OTHER MEDICAL Menorrhagia ??? HX OTHER MEDICAL [employer] teeth extraction 12/18 ??? HX OTHER MEDICAL 01-reproductive endocrinologist ??? HX OTHER MEDICAL right lens implant ??? HX OTHER MEDICAL OPTHO ??? HX OTHER MEDICAL milk duct removed right breast ; benign pap ??? 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 HX OTHER MEDICAL left Shoulder pain ??? HX OTHER MEDICAL fibroid removed ??? Hypertension Hypertension ??? Polycystic ovarian disease Patient Active Problem List Diagnosis ??? Multiple-type [...] of left ear ??? Left ear pain Past Surgical History: Procedure Laterality Date ??? CATARACT EXTRACTION Bilateral 1982 Cataract extraction ??? CHOLECYSTECTOMY 2009 Cholecystectomy ??? 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 HISTORY L/R cataract extraction: 1982 ??? 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 HISTORY Detached Retina: Surgically repaired; 1982 ??? 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 HISTORY Scar tissure removal Left Eye: 2008 ??? 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 HISTORY myringotomy tubes: 1989 ??? 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 HISTORY 01-reproductive endocrinologist: [facility] ??? 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 HISTORY right lens implant : Dr Barrios - [facility] ??? 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 HISTORY 2011 breast bx R - benign ??? 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 HISTORY milk duct removed right breast ; benign papilloma: Dr Alonso [facility] ??? 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 HISTORY left eye removed 02-10-12, prosthetic: Dr Fidel Hsu - [facility] ??? 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 HISTORY 1982 retinal reattachment ??? 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 HISTORY 2011 eye removal ??? 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 HISTORY 2011 milk duct removal ??? TONSILLECTOMY AND ADENOIDECTOMY ??? TYMPANOSTOMY TUBE PLACEMENT 1993 tubes in ears Social History Tobacco Use ??? Smoking status: Never Smoker ??? Smokeless tobacco: Never Used Substance Use Topics ??? Alcohol use: No ??? Drug use: No Family History Problem Relation Age of [...] disease Other Family history of Renal disease; Current Outpatient Medications on File Prior to [...] XR) 500 mg 24 hr tablet ??? ofloxacin (FLOXIN) 0.3 % otic solution Administer 4 drops into the left ear 2 (two) times a dayfor 7 days 10 mL 0 ??? spironolactone (ALDACTONE) 50 mg tablet ??? venlafaxine (EFFEXOR) 75 mg tablet Take 75 mg by mouth daily. 0 No current facility-administered medications on file prior to visit. Allergies Allergen Reactions ??? Sulfasalazine Hives and Rash ??? Sulfa (Sulfonamide Antibiotics) Eye irritation Reaction: itchy eyes, , ??? Sulfanilamide Other (See comments) Reaction: Conjunctivitis, ??? Oxycodone-Acetaminophen Diarrhea, Nausea Only and Vomiting ??? Penicillins Hives and Other (See comments) Reaction: Reaction: hives, , Reaction: Hives, , OBJECTIVE: Vitals BP (!) 144/104 (BP Location: Left arm, Patient Position: Sitting) Pulse 106 Temp 37.1 ??C (98.8 ??F) (Oral) Ht 167.6 cm (5' 6 ) Wt 111.1 kg (245 lb) BMI 39.54 kg/m?? Review of Systems Constitutional: Negative. Negative for chills, fatigue and fever. HENT: Positive for congestion, rhinorrhea, sinus pressure and sinus pain. Negative for ear discharge, ear pain, hearing loss, nosebleeds, sore throat, tinnitus, trouble swallowing and voice change. Eyes: Negative. Negative for pain and discharge. Respiratory: Negative for apnea, cough, choking, shortness of breath, wheezing and stridor. Cardiovascular: Negative for chest pain, palpitations and leg swelling. Gastrointestinal: Negative for abdominal pain, constipation, nausea and vomiting. Negative for Heartburn, trouble swallowing foods or liquids Endocrine: Negative. Negative for cold intolerance and heat intolerance. Musculoskeletal: Negative. Negative for arthralgias, joint swelling, myalgias, neck pain and neck stiffness. Skin: Negative. Negative for color change, rash and wound. Negative for new skin lesions Allergic/Immunologic: Negative. Negative for environmental allergies and food allergies. Neurological: Negative. Negative for dizziness, syncope, speech difficulty, light-headedness and headaches. Hematological: Negative. Negative for adenopathy. Does not bruise/bleed easily. Psychiatric/Behavioral: Negative for agitation, behavioral problems and dysphoric mood. The patientis not nervous/anxious. Physical Exam Constitutional: She is oriented to person, place, and time. She appears well- developed. She is cooperative. No distress. HENT: Head: Normocephalic and atraumatic. Right Ear: Hearing, tympanic membrane, external ear and ear canal normal. Left Ear: External ear and ear canal normal. Nose: Mucosal edema present. No rhinorrhea, sinus tenderness or nasal deformity. Mouth/Throat: Uvula is midline and mucous membranes are normal. No oral lesions. Posterior oropharyngeal erythema present. Tonsils are 0 on the right. Tonsils are 0 on the left. Left Tympanic membrane was retracted, serous middle effusion Eyes: Pupils are equal, round, and reactive to light. Conjunctivae and lids are normal. Neck: Trachea normal and full passive range of motion without pain. Neck supple. Examination of the pharynx with use of the laryngeal mirror was not able to be performed due to patient discomfort Neck: no palpable abnormality of submandibular or parotid gland Facial Nerve strength intact and symmetric Cardiovascular: No edema, no JVD, normal distal [...] Diagnoses and all orders for this visit: Acute recurrent maxillary sinusitis (Primary) Assessment & Plan: Take Cefdinir with a meal daily Nasal saline spray (Simply saline, Little Remedies, [place], [place]) 2 second sprays or 2 squeezes into [...] left ear, will consider ear tube placement Orders: - cefdinir (OMNICEF) 300 mg capsule; Take 2 capsules (600 mg total) by mouth daily for 14 days - fluticasone propionate (FLONASE) 50 mcg/actuation nasal spray; Administer 2 sprays into each nostril daily Left ear pain Assessment & Plan: Take Cefdinir with a meal daily Nasal saline spray (Simply saline, Little Remedies, [place], [place]) 2 second sprays or 2 squeezes into [...] left ear, will consider ear tube placement Orders: - Ambulatory referral to ENT ETD (Eustachian tube dysfunction), left Assessment & Plan: Take Cefdinir with a meal daily Nasal saline spray (Simply saline, Little Remedies, [place], [place]) 2 second sprays or 2 squeezes into [...] left ear, will consider ear tube placement Orders: - cefdinir (OMNICEF) 300 mg capsule; Take 2 capsules (600 mg total) by mouth daily for 14 days - fluticasone propionate (FLONASE) 50 mcg/actuation nasal spray; Administer 2 sprays into each nostril daily Hearing loss of left ear, unspecified hearing loss type Assessment & Plan: Hearing test right before follow up Orders: - Audiogram; Future Brit Montes DO L TELEPHONE OPERATOR documented in this encounter Miscellaneous Notes * Assessment & Plan Note - Brit Montes DO - 05/26/2019 8:08 PM LOCAL TELEPHONE OPERATOR Associated Problem(s): Left ear pain Take Cefdinir with a meal daily Nasal saline spray (Simply saline, Little Remedies, [place], [place]) 2 second sprays or 2 squeezes into [...] left ear, will consider ear tube placement L TELEPHONE OPERATOR * Assessment & Plan Note - Brit Montes DO - 05/26/2019 10:38 AM LOCAL TELEPHONE OPERATOR Associated Problem(s): Hearing loss of left ear Hearing test right before follow up L TELEPHONE OPERATOR * Assessment & Plan Note - Brit Montes DO - 05/26/2019 10:38 AM LOCAL TELEPHONE OPERATOR Associated Problem(s): ETD (Eustachian tube dysfunction), left Take Cefdinir with a meal daily Nasal saline spray (Simply saline, Little Remedies, [place], [place]) 2 second sprays or 2 squeezes into [...] left ear, will consider ear tube placement L TELEPHONE OPERATOR * Assessment & Plan Note - Brit Montes DO - 05/26/2019 10:38 AM LOCAL TELEPHONE OPERATOR Associated Problem(s): Acute recurrent maxillary sinusitis Take Cefdinir with a meal daily Nasal saline spray (Simply saline, Little Remedies, [place], [place]) 2 second sprays or 2 squeezes into [...] left ear, will consider ear tube placement L TELEPHONE OPERATOR documented in this encounter Plan of Treatment Not on file documented as of this encounter Visit Diagnoses Diagnosis Acute recurrent maxillary sinusitis- Primary Left ear pain Unspecified otalgia ETD (Eustachian tube dysfunction), left Hearing loss of left ear, unspecified hearing loss type documented in this encounter Orders Outpatient Referral Count Last Ordered Date st Ordered Date AMB REFERRAL TO ENT 1 05/26/2019 documented in this encounter Care Teams Pattern Generator Operator Relationship Specialty Start Date End Date Martha Lawrence MD [facility] [place] [address] PCP - General 02/24/19 Zoran Willams Family Medicine 05/18/18 documented as of this encounter
--- OUTSIDE RECORDS SUMMARY | 2024-05-13 22:24 | XMS_ITS | Encounter Summary ---
Author Organization [facility] Address [address] [place] [address] Care Team Providers Care Poison Information Specialist Name Role Phone Dewayne Covarrubias MD Primary Care Provider [phone] Encounter Details Date Type Department Care Team (Late st Contact Info) Description 05/30/2013 7:14 PM POLYSOMNOGRAPHY TECHNICIAN - 05/30/2013 11:59 PM POLYSOMNOGRAPHY TECHNICIAN Hospital Encounter [facility] Dewayne Covarrubias MD [address] [address] Obstructive sleep apnea Social History Tobacco Use Types Packs/Day Years Used Date Smoking Tobacco: Never Alcohol Use Standard Drinks/Week Comments No 0 (1 standard drink = 0.6 oz pur e alcohol) Comments Unknown Sex and Gender Information Value Date Recorded Sex Assigned at Not on file Legal Sex Female 10:37 AM POLYSOMNOGRAPHY TECHNICIAN Gender Identity Not on file Sexual Orientation Not on file documented as of this encounter Plan of Treatment Not on file documented as of this encounter Procedures Procedure Name Priority Date/Time Associated Diagnosis Comments PSG (SIMPLE) 05/30/2013 PSG (SIMPLE) Routine 05/30/2013 12:00 AM POLYSOMNOGRAPHY TECHNICIAN documented in this encounter Results * PSG (SIMPLE) (05/30/2013) Narrative 05/30/2013 Ordered by an unspecified provider. us Historical Provider SLEEP CENTER ORDERABLES F inal Result * PSG (SIMPLE) (05/30/2013 12:00 AM POLYSOMNOGRAPHY TECHNICIAN) 05/30/2013 Narrative HISTORICAL RESULTS - 06/07/2013 9:17 PM POLYSOMNOGRAPHY TECHNICIAN ?SLEEP DISORDER REPORT Patient: ??CESARIO JEWELL V. Account: ??[id number] ? Room No: : ?1980 ? Patient Type: ?ANC Attend.: ??Dewayne Covarrubias M.D. ?Admit Date: ??05/30/2013 Dict.: ?Peter Dos Santos M.D., D.M. ?Disch. Date: 05/30/2013 ?COMPREHENSIVE POLYSOMNOGRAM DATE OF PROCEDURE: ??05/30/13 INDICATIONS FOR STUDY: ??The patient is a 33-year-old morbidly obese female with chief complaint of snoring, restless sleep, and daytime hypersomnolence. ??The patient's Novice sleepiness scale is 15. ??A polysomnography obtained on 05/16/13 revealed ??evidence of mild obstructive sleep apnea syndrome. The present study was ordered as a titration study. VITAL STATISTICS: ??Age: 33 years. Height 65 inches. ??Weight: ??256.1 pounds. Body mass index: ??42.7. PROCEDURE: The patient underwent over night polysomnogram with multiple channel polysomnography to include EEG, sleep stage recording, cardiorespiratory monitoring, positive pressure therapy, as well as videotaping. DESCRIPTION OF POLYSOMNOGRAPHIC FINDINGS: The patient's total time in bed was 402.4 minutes. Total sleep time was 354 minutes. ??Sleep efficiency was 88%. Latency from lights out to stage N1 was 20 minutes, latency to stage N2 was 21.5 minutes and latency to stage REM sleep was 110 minutes. Sleep stage recording revealed stage awake to be 48.5. Stage nREM comprised 267 minutes (75.4% of total sleep time). It included stage N-I of 41 minutes (11.6% total sleep time), stage N-II of 226 minutes (53.8% of total sleep time). Stage REM comprised 87 minutes (24.6% of total sleep time). Continuous positive pressure therapy was initiated and pressures of 4-12 cm of water were attempted. ??Pressure of 12 cm seems to be optimal. ??Total recording time was 56.5 minutes. ??Sleep efficiency was 97.3%. ??Adequate REM supine was obtained with residual respiratory disturbance index of 1.1. Lowest oxygen saturation of 96.2%. The patient tolerated the procedure well. ??A medium Jameson-Paykel Eson nasal mask was used. Limb movement recording revealed 305 periodic limb movements. ??Periodic limb movement index was 51.7. Periodic limb movement arousal index was 7.1. ??Average heart rate during awake was 70.5 and during sleep was 68.6. Heart rhythm is sinus rhythm. IMPRESSION: ??The above polysomnogram reveals ??evidence of ??1. ??Positive pressure therapy ??is effective in treatment the patient's sleep ?disorder of breathing. ??2. ??The patient tolerated the procedure pretty well. ??3. ??Pressure of 12 cm seems to be optimal. ??4. ??A medium Jameson-Paykel Eson nasal mask was used. ??5. ??Severe periodic limb movements were noted. Clinical correlation is recommended. AXIS A: Obstructive sleep apnea syndrome, 327.23 AXIS B: Polysomnogram, 82281. AXIS C: ??Periodic limb movement disorder, 327.51. ? Diplomate in Sleep Medicine ? ([place] Board of ? Psychiatry and Neurology) Peter Dos Santos M.D., D.M. AR/sp Job #: ??[id number] DD: ??06/01/2013 16:58 TD: ??06/02/2013 13:19 Authenticated and Edited by Peter Dos Santos MD On 06/07/13 8:15:57 PM us Historical Provider SLEEP CENTER ORDERABLES F inal Result HISTORICAL RESULTS documented in this encounter Visit Diagnoses Diagnosis Obstructive sleep apnea Obstructive sleep apnea (adult) (pediatric) documented in this encounter Care Teams Poison Information Specialist Relationship Specialty Start Date End Date Dewayne Covarrubias MD PCP - General 06/12/10 10/11/17 documented as of this encounter
--- OUTSIDE RECORDS SUMMARY | 2024-05-13 22:24 | XMS_ITS | Encounter Summary ---
Author Organization [facility] Address [address] [facility] [address] [place] [address] Care Team Providers Care Dye Mixer Name Role Phone Zoran Willams Primary Care Provider Unavaila ble Reason for Visit * Reason Comments Urinary Symptom Pt c/o flank pain, d ysura, pelvic pressure x1 week Encounter Details Date Type Department Care Team (Late st Contact Info) Description 04/02/2018 11:30 AM BROTHEL KEEPER Office Visit [facility] [address] [facility] [facility] [address] [place] [address] Homer Contreras NP [address] [facility] [place] [address] Acute cystitis without hematuria (Primary Dx); Acute midline low back pain without sciatica Social History Tobacco Use Types Packs/Day Years Used Date Smoking Tobacco: Never Smokeless Tobacco: Never Alcohol Use Standard Drinks/Week Comments No 0 (1 standard drink = 0.6 oz pur e alcohol) Comments Unknown Sex and Gender Information Value Date Recorded Sex Assigned at Not on file Legal Sex Female 10:37 AM BROTHEL KEEPER Gender Identity Not on file Sexual Orientation Not on file documented as of this encounter Last Filed Vital Signs Vital Sign Reading Time Taken Comments Blood Pressure 138/86 04/02/2018 12:30 PM BROTHEL KEEPER Pulse 72 04/02/2018 12:30 PM BROTHEL KEEPER Temperature 36.9 ??C (98.5 ??F) 04/02/2018 12:[address] Respiratory Rate 18 04/02/2018 12:30 PM BROTHEL KEEPER Oxygen Saturation 100% 04/02/2018 12:30 PM BROTHEL KEEPER Inhaled Oxygen Concentration - - Weight 117.9 kg (260 lb) 04/02/2018 12:30 PM BROTHEL KEEPER Height 167.6 cm (5' 6 ) 04/02/2018 12:30 PM BROTHEL KEEPER Body Mass Index 41.97 04/02/2018 12:30 PM BROTHEL KEEPER documented in this encounter Patient Instructions * Patient Instructions* Homer Contreras, ENGINEERING TECHNOLOGY INSTRUCTOR - 04/02/2018 1:02 PM BROTHEL KEEPER Complete the antibiotic as directed. Do not hold your urine. Urinate as soon as you feel the need to urinate. Drink plenty of fluid. Alcohol, caffeine, and citrus juices will irritate your bladder. Wipe front to back and wear cotton underwear. Try emptying your bladder before and after having sexual intercourse. Follow up with your PCP if you are not getting better. If you have severe back flank or groin pain with nausea and vomiting, or are unable to get comfortable from the pain, please go tothe ER for further treatment. Take 2 Tylenol extra strength tabs (1000 mg) and Ibuprofen 3 tabs (600 mg) every 6 hours for pain control. Patient Education Urinary Traction Infection in Older Adults WHAT YOU NEED TO KNOW: A urinary tract infection (UTI) is caused by bacteria that get inside your urinary tract. Your urinary tract includes your kidneys, ureters, bladder, and urethra. Urine is made in your kidneys, and it flows from the ureters to the bladder. Urine leaves the bladder through the urethra. A UTI is morecommon in your lower urinary tract, which includes your bladder and urethra. DISCHARGE INSTRUCTIONS: Seek care immediately if: ?? You are urinating very little or not at all. ?? You are vomiting. ?? You have a high fever with shaking chills. ?? You have side or back pain that gets worse. Contact your healthcare provider if: ?? You have a fever. ?? You are a woman and you have increased white or yellow discharge from your vagina. ?? You do not feel better after 2 days of taking antibiotics. ?? You have questions or concerns about your condition or care. Medicines: ?? Medicines help treat the bacterial infection or decrease pain and burning when you urinate. You may also need medicines to decrease the urge to urinate often. Your healthcare provider may recommend cranberry juice or cranberry supplements to help decrease your symptoms. ?? Take your medicine as directed. Contact your healthcare provider if you think your medicine is not helping or if you have side effects. Tell him or her if you are allergic to any medicine. Keep a list of the medicines, vitamins, and herbs you take. Include the amounts, and when and why you take them. Bring the list or the pill bottles to follow-up visits. Carry your medicine list with you in case of an emergency. Self-care: ?? Urinate when you feel the urge. Do not hold your urine because bacteria can grow in the bladder if urine stays in the bladder too long. It may be helpful to urinate at least every 3 to 4 hours. ?? Drink liquids as directed. Liquids can help flush bacteria from your urinary tract. Ask how muchliquid to drink each day and which liquids are best for you. You may need to drink more liquids than usual to help flush out the bacteria. Do not drink alcohol, caffeine, and citrus juices. These canirritate your bladder and increase your symptoms. ?? Apply heat on your abdomen for 20 to 30 minutes every 2 hours for as many days as directed. Heathelps decrease discomfort and pressure in your bladder. Prevent a UTI: ?? Women should wipe front to back after urinating or having a bowel movement. This may prevent germs from getting into the urinary tract. ?? Urinate after you have sex to flush away bacteria that can enter your urinary tract during sex. ?? Wear cotton underwear and clothes that fit loose. Tight pants and nylon underwear can trap moisture and cause bacteria to grow. Follow up with your healthcare provider as directed: Write down your questions so you remember to ask them during your visits. ?? 2016 [employer]. Information is for End User's use only and may not be sold, redistributed or otherwise used for commercial purposes. All illustrations and images included in CareNotes?? are the copyrighted property of [employer] or [employer]. The above information is an forestry aid technician only. It is not intended as medical advice for individual conditions or treatments. Talk to your doctor, nurse or pharmacist before following any medical regimen to see if it is safe and effective for you. HEL KEEPER HEL KEEPER HEL KEEPER documented in this encounter Ordered Prescriptions Prescription Sig Dispense Quantity Refills Last Filled Start Date End Date nitrofurantoin monohydrate (MACROBID) 100 mg capsuleIndications :Acute cystitis without hematuria Take 1 capsule (100 mg total) by mouth 2 (two) times a day for 5 days. 10 capsule 04/02/2018 8 documented in this encounter Progress Notes * Homer Contreras, RIZWAN - 04/02/2018 11:30 AM CST Subjective Patient ID: Cesario Jewell is a 38 y.o. female. Urinary Symptom (Pt c/o flank pain, dysura, pelvic pressure x1 week ) UTI symptoms for the past week also lower back pain UTI This is a new problem. The current episode started in the past 7 days. The problem has been gradually worsening. The pain is at a severity of 2/10. The pain is mild. There has been no fever. She is sexually active. There is no history of pyelonephritis. Associated symptoms include frequency and urgency. Pertinent negatives include no chills or flank pain. She has tried acetaminophen for the symptoms. There is no history of catheterization or recurrent UTIs. Review of Systems Constitutional: Negative for activity change and chills. HENT: Negative for congestion. Respiratory: Negative for chest tightness. Cardiovascular: Negative for chest pain. Gastrointestinal: Positive for abdominal pain. Genitourinary: Positive for frequency and urgency. Negative for flank pain. Musculoskeletal: Positive for back pain. Skin: Negative for rash. Allergic/Immunologic: Negative for environmental allergies. Neurological: Negative for headaches. Psychiatric/Behavioral: Negative for confusion. Objective Physical Exam Constitutional: She is oriented to person, place, and time. She appears well- developed and well-nourished. HENT: Head: Normocephalic. Right Ear: Hearing, tympanic membrane and external ear normal. Left Ear: Hearing, tympanic membrane and external ear normal. Nose: Nose normal. Mouth/Throat: Uvula is midline, oropharynx is clear and moist and mucous membranes are normal. Eyes: Conjunctivae are normal. Neck: Normal range of motion. Neck supple. Cardiovascular: Normal rate, regular rhythm and normal heart sounds. Pulmonary/Chest: Effort normal and breath sounds normal. Abdominal: Soft. Bowel sounds are normal. There is tenderness in the suprapubic area. There is no CVA tenderness. Musculoskeletal: Normal range of motion. Lumbar back: She exhibits tenderness. She exhibits no swelling, no edema and no spasm. Neurological: She is alert and oriented to person, place, and time. Skin: Skin is warm and dry. No rash noted. No erythema. Psychiatric: She has a normal mood and affect. Nursing note and vitals reviewed. Vitals: 04/02/18 1230 BP: 138/86 BP Location: Left arm Patient Position: Sitting Pulse: 72 Resp: 18 Temp: 36.9 ??C (98.5 ??F) TempSrc: Oral SpO2: 100% Weight: 117.9 kg (260 lb) Height: 167.6 cm (5' 6 ) Assessment/Plan Complete the antibiotic as directed. Do not hold your urine. Urinate as soon as you feel the need to urinate. Drink plenty of fluid. Alcohol, caffeine, and citrus juices will irritate your bladder. Wipe front to back and wear cotton underwear. Try emptying your bladder before and after having sexual intercourse. Follow up with your PCP if you are not getting better. If you have severe back flank or groin pain with nausea and vomiting, or are unable to get comfortable from the pain, please go tothe ER for further treatment. Take 2 Tylenol extra strength tabs (1000 mg) and Ibuprofen 3 tabs (600 mg) every 6 hours for pain control. Diagnoses and all orders for this visit: Acute cystitis without hematuria (Primary) - POCT urinalysis dipstick - Urine culture Urine, clean voided; Future No notes on file HEL KEEPER documented in this encounter Plan of Treatment Not on file documented as of this encounter Procedures Procedure Name Priority Date/Time Associated Diagnosis Comments POCT URINALYSIS DIPSTICK Routine 04/02/2018 12:30 PM BROTHEL KEEPER Acute cystitis without hematuria documented in this encounter Results * (ABNORMAL) POCT urinalysis dipstick (04/02/2018 12:30 PM BROTHEL KEEPER) Color, Urine, POC Yellow Clarity, ur, POC Cloudy(A) Clear Glucose, ur, POC Negative Negative mg/dL Bilirubin, ur, POC Negative Negative Ketones, ur, POC Negative Negative Specific [place], POC 1.015 1.005 - 1.030 Blood, ur, POC Negative Negative pH, ur, POC 5.5 5.0 - 8.0 Protein, ur, POC Negative Negative Urobilinogen, urine, POC 0.2 0.2 - 1.0 mg/dL Nitrite, ur, POC Negative Negative Leukocytes, ur, POC 3+(A) Negative Lot Number [id number] Urine 04/02/2018 12:3 0 PM BROTHEL KEEPER Homer Contreras NP POINT OF CARE TEST ORDERABLES Final Result * Urine culture Urine, clean voided (04/02/2018 12:27 PM BROTHEL KEEPER) Report Final Report: Less than 100,000 colonies/mL (clinically insignificant growth based on current clinical standards) LILIAN OROZCO Comment:Testing performed by : [facility], [address] [place] [address]., [id number] Organism (CLINICALLY INSIGNIFICANT GROWTH LILIAN Urine, clean voided 04/02/2018 12:27 PM BROTHEL KEEPER 04/02/2018 8:15 PM BROTHEL KEEPER Narrative LILIAN OROZCO - 04/04/2018 10:10 AM BROTHEL KEEPER Testing performed by [facility] Microbiology Laboratory ([phone]) Homer Contreras NP LAB MICROBIOLOGY - GENERAL OR DERABLES Final Result LILIAN [address] Department [place] [address] documented in this encounter Visit Diagnoses Diagnosis Acute cystitis without hematuria- Primary Acute midline low back pain without sciatica Acute cystitis without hematuria documented in this encounter Care Teams Dye Mixer Relationship Specialty Start Date End Date Zoran Willams PCP - General Family Medicine 10/26/17 05/17/18 documented as of this encounter
--- OUTSIDE RECORDS SUMMARY | 2024-05-13 22:24 | XMS_ITS | Encounter Summary ---
Author Organization [facility] Healthcare Address [address] [place] [address] Care Team Providers Care Recruiter Specialist Name Role Phone Dewayne Covarrubias MD Primary Care Provider [phone] Encounter Details Date Type Department Care Team (Latest Contact Info) Description 11/27/2013 6:20 PM CDT - 11/27/2013 8:48 PM CDT Hospital Encounter [facility] Benja Montes Other disorders of menstruation and other abnormal bleeding from female genital tract Social History Tobacco Use Types Packs/Day Years Used Date Smoking Tobacco: Never Alcohol Use Standard Drinks/Week Comments No 0 (1 standard drink = 0.6 oz pur e alcohol) Comments Unknown Sex and Gender Information Value Date Recorded Sex Assigned at Not on file 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 Gender Identity Not on file Sexual Orientation Not on file documented as of this encounter Plan of Treatment Not on file documented as of this encounter Procedures Procedure Name Priority Date/Time Associated Diagnosis Comments SERUM COMPREHENSIVE METABOLIC PANEL Routine 11/27/2013 8:00 PM CDT BLOOD WBC CELL MORPHOLOGIC EXAM, AUTO Routine 11/27/2013 8:00 PM CDT BLOOD ANTIBODY SCREEN INTERP Routine 11/27/2013 8:00 PM CDT BLOOD ABO, RH Routine 11/27/2013 8:00 PM CDT BLOOD CELL COUNT (CBC) Routine 4 8:00 PM CDT DISCHARGE LABORATORY CUMULATIVE REPORT Routine 11/27/2013 12:00 AM CDT documented in this encounter Results * Blood ABO, Rh (11/27/2013 8:00 PM CDT) ABO, Rho (D) interp A Positive HISTORICAL RESULTS Blood specimen (specimen) 11/27/2013 8:00 PM CDT [facility] LAB BLOOD ORDERABLES Final Resul t Performing Organization Address [facility] de Phone Number HISTORICAL RESULTS * Blood antibody screen interp (11/27/2013 8:00 PM CDT) Tramaine, indirect Negative HISTORICAL RESULTS Blood specimen (specimen) 11/27/2013 8:00 PM CDT [facility] LAB BLOOD ORDERABLES Final Resul t Performing Organization Address [facility] de Phone Number HISTORICAL RESULTS * (ABNORMAL) Blood cell count (CBC) (11/27/2013 8:00 PM CDT) WBC 9.8 4.0 - 10.5 K/cumm HISTORICAL RESULTS MCV 66.0(L) 77.0 - 97.0 fl HISTORICAL RESULTS RBC 4.74 4.20 - 5.40 M/cumm HISTORICAL RESULTS MCH 20.7(L) 23.0 - 34.0 pg HISTORICAL RESULTS Hgb 9.8(L) 12.0 - 16.0 g/dl HISTORICAL RESULTS MCHC 31.3(L) 32.0 - 36.0 g/dl HISTORICAL RESULTS Hct 31.3(L) 37.0 - 47.0 % HISTORICAL RESULTS Rdw 15.9(H) 11.5 - 14.5 % HISTORICAL RESULTS Platelets 444(H) 150 - 400 K/cumm HISTORICAL RESULTS MPV 10.1 7.4 - 10.4 fl HISTORICAL RESULTS Blood specimen (specimen) 11/27/2013 8:00 PM CDT [facility] LAB BLOOD ORDERABLES Final Resul t Performing Organization Address [facility] de Phone Number HISTORICAL RESULTS * (ABNORMAL) Blood WBC cell morphologic exam, auto (11/27/2013 8:00 PM CDT) Pathologist [facility] Lymphocytes 32.4 25.0 - 33.0 % HISTORICAL RESULTS Monos 8.0 0.0 - 13.0 % HISTORICAL RESULTS Neutrophils 55.2 54.0 - 69.0 % HISTORICAL RESULTS Eosinophils 3.6 0.0 - 10.0 % HISTORICAL RESULTS Basophils 0.6 0.0 - 1.0 % HISTORICAL RESULTS Immature granulocytes 0.2 0.0 - 1.0 % HISTORICAL RESULTS Lymphocytes, abs 3.2 1.2 - 3.4 K/cumm HISTORICAL RESULTS Monocytes, absolute 0.8(L) 1.1 - 1.9 K/cumm HISTORICAL RESULTS Neutrophils, abs 5.4 1.4 - 6.5 K/cumm HISTORICAL RESULTS Eosinophils, abs 0.4 0.0 - 0.7 cells/cumm HISTORICAL RESULTS Basophils, abs 0.1 0.0 - 0.2 K/cumm HISTORICAL RESULTS Immature granulocyte, abs 0.0 0.0 - 0.0 K/cumm HISTORICAL RESULTS Blood specimen (specimen) 11/27/2013 8:00 PM CDT [facility] LAB BLOOD ORDERABLES Final Resul t Performing Organization Address [facility] de Phone Number HISTORICAL RESULTS * (ABNORMAL) Serum comprehensive metabolic panel (11/27/2013 8:00 PM CDT) Pathologist [facility] BUN 9.0 6.0 - 23.0 mg/dl HISTORICAL RESULTS Sodium 139 134 - 143 mmol/L HISTORICAL RESULTS Potassium, sr 3.9 3.4 - 5.0 mmol/L HISTORICAL RESULTS Chloride 104 99 - 108 mmol/L HISTORICAL RESULTS CO2 29 23 - 32 mmol/L HISTORICAL RESULTS Glucose 92 70 - 199 mg/dl HISTORICAL RESULTS Comment: Note:The glucose is assumed non fasting Fastin-99 mg/dl Random: 70-199 mg/dl Either a fasting glucose > 126 mg/dL or a random glucose > 200 mg/dL plus symptoms is diagnostic of diabetes when confirmed on another day. Fasting values > 100 mg/dl but < 125 mg/dL are diagnostic of impaired fasting glucose. New reference ranges implemented 03/20/2013. Creatinine 1.14 0.60 - 1.30 mg/dl HISTORICAL RESULTS Comment: eGFR:59 ml/min/1.73sq.m if non -B[place]i. eGFR: >70 ml/min/1.73sq.m if -Bahraini. AVE GFR for 30-39 yr. age group: 107 ml/min/1.73sq.m Calculated using MDRD Equation BUN/creat ratio 8(L) 10 - 20 HIST ORICAL RESULTS A. gap 10 7 - 14 mmol/L HISTORICAL RESULTS Protein, sr 7.5 6.4 - 8.0 g/dl HISTORICAL RESULTS Alb 3.4 3.3 - 4.5 g/dl HISTORICAL RESULTS Alb/glob ratio 0.8(L) 1.1 - 1.8 HISTO RICAL RESULTS Calcium 8.8 8.6 - 9.8 mg/dl HISTORICAL RESULTS Bilirubin 0.2 0.0 - 1.1 mg/dl HISTORICAL RESULTS Alk phos 109 44 - 125 Units/L HISTORICAL RESULTS AST 20 5 - 40 Units/L HISTORICAL RESULTS ALT 35 15 - 70 Units/L HISTORICAL RESULTS Serum 11/27/2013 8:00 PM CDT [facility] LAB BLOOD ORDERABLES Final Resul t HISTORICAL RESULTS * Discharge Laboratory Cumulative Report (11/27/2013 12:00 AM CDT) 11/27/2013 Narrative HISTORICAL RESULTS - 11/28/2013 12:37 AM CDT Patient No: [id number] ? [facility] Patient Name: SONYA, CESARIO V ?[facility] Age: 33 YRS ?: 1980 ?Sex:F ?[address] )[id number] ?? Adm Dt: 11/27/2013 ?[place], [place] ??[id number] Created: 11/28/2013 ??0037 ?? Pt. Type: E ? Discharge Dt: 11/27/2013 ? Pathologists: Deb Self MD Admit Attend Dr: BENJA MONTES MD ? BLOOD CELL COUNTS ?Collection Date: ?11/27/13 ?Collection Time: ?2000 ? Ref Range: ?? Units: [4.00-10.50] /CMM ? WBC X 10^3 ?9.81 [4.20-5.40] ??/CMM ? RBC X 10^6 ?4.74 [12.0-16.0] ??G/DL ? HGB ?9.8 L [37.0-47.0] ??% ?HCT ? 31.3 L [77.0-97.0] ??FL ? MCV ? 66.0 L [23.0-34.0] ??PG ? MCH ? 20.7 L [32.0-36.0] ??% ?MCHC ?31.3 L [11.5-14.5] ??% ?RDW ? 15.9 H [150-400] ?? /CMM ? PLT X 10^3 ? 444 H ?BLOOD CELL DIFFERENTIAL ?Collection Date: ?11/27/13 ?Collection Time: ?2000 ? Ref Range: ?? Units: [54.0-69.0] ??% ?NEUTROPHILS ? 55.2 [25.0-33.0] ??% ?LYMPHOCYTES ? 32.4 [0.0-13.0] ??% ?MONOCYTES ?8.0 [0.0-10.0] ??% ?EOSINOPHILS ?3.6 [0.0-1.0] ?? % ?BASOPHILS ?0.6 ? /CMM ? A LYMPHOCYTE ? 3.2 [0.0-1.0] ?? % ?IMM GRAN % ? 0.2 [0.00-0.02] ??/CMM ? A IMM GRAN ?0.02 [1.1-1.9] ?? /CMM ? A MONOCYTE ? 0.8 L [1.4-6.5] ?? /CMM ? A NEUTROPHIL ? 5.4 [0.0-0.7] ?? /CMM ? A EOSINOPHIL ? 0.4 [0.0-0.2] ?? /CMM ? A BASOPHIL ? 0.1 Footnotes and Symbols: L = Low, H = High ?? CONTINUED ?Page: ?? 1 Patient No: [id number] ? [facility] Patient Name: SONYA, RAJEEVOLE V ?[facility] Age: 33 YRS ?: 1980 ?Sex:F ?[address] )[phone] ?? Adm Dt: 11/27/2013 ?[place] ??[id number] Created: 11/28/2013 ??0037 ?? Pt. Type: E ? Discharge Dt: 11/27/2013 ? Pathologists: Deb Self MD Admit Attend Dr: BENJA MONTES MD ? GENERAL CHEMISTRY ?Collection Date: ?11/27/13 ?Collection Time: ?2000 ? Ref Range: ?? Units: [134-143] ?? MMOL/L ? SODIUM ? 139 [3.4-5.0] ?? MMOL/L ? POTASSIUM ?3.9 [99.0-108.0] MMOL/L ? CHLORIDE ? 104.0 [23.0-32.0] ??MMOL/L ? TOTAL CO2 ? 29.0 ?? [7-14] ?MMOL/L ? ANION GAP ? 10 ??[70-199] ?? MG/DL ?GLUCOSE ? 92 f [6.4-8.0] ?? G/DL ? TOTAL PROTEIN ?7.5 [3.3-4.5] ?? G/DL ? ALBUMIN ?3.4 [1.1-1.8] ?A/G RATIO ?0.8 L [8.6-9.8] ?? MG/DL ?CALCIUM ?8.8 [0.0-1.1] ?? MG/DL ?BILI TOTAL ? 0.2 ??[44-125] ?? U/L ?ALK PHOS ? 109 ?? [5-40] ?U/L ?AST(SGOT) ? 20 f ??[15-70] ?U/L ?ALT(SGPT) ? 35 f [6.0-23.0] ??MG/DL ?BUN ?9.0 ??[10-20] ? B/C RATIO ?8 L Footnotes and Symbols: L = Low, f = Footnote GLUCOSE (04/11/13 -- Current) Note:The glucose is assumed non fasting Fastin-99 mg/dl Random: 70-199 mg/dl Either a fasting glucose > 126 mg/dL or a random glucose > 200 mg/dL plus symptoms is diagnostic of diabetes when confirmed on another day. Fasting values > 100 mg/dl but < 125 mg/dL are diagnostic of impaired fasting glucose. New reference ranges implemented 03/20/2013. AST(SGOT) (09/21/13 -- Current) ALT(SGPT) (11/29/12 -- Current) ?? CONTINUED ?Page: ?? 2 Patient No: [id number] ? [facility] Patient Name: CESRAIO JEWELL V ?[facility] Age: 33 YRS ?: 1980 ?Sex:F ?[address] )[phone] ?? Adm Dt: 11/27/2013 ?[place] ??[id number] Created: 11/28/2013 ??0037 ?? Pt. Type: E ? Discharge Dt: 11/27/2013 ? Pathologists: Deb Self MD Admit Attend Dr: BENJA MONTES MD ? GENERAL CHEMISTRY ?Collection Date: ?11/27/13 ?Collection Time: ?2000 ? Ref Range: ?? Units: [0.60-1.30] ??MG/DL ?CREATININE ?1.14 f ?11/27/13 2000 eGFR:59 ml/min/1.73sq.m if non -[place]i. eGFR: >70 ml/min/1.73sq.m if -Bah[place]i. AVE GFR for 30-39 yr. age group: 107 ml/min/1.73sq.m Calculated using MDRD Equation FOOTNOTE ADDED ON ?? 11/27/13 ?? AT 2037 BY 999 ?BLOOD BANK ?Collection Date: ?11/27/13 ?Collection Time: ?2000 ? BLOOD TYPE AND ANTIBODY SCREEN ?ABO RH TYPE ?A POS f ?ANTIBODY SCREEN ? NEGATIVE Footnotes and Symbols: f = Footnote ABO RH TYPE.... 11/27/131999 ?? WITNESS=MANNY THOMPSON ?? END OF CHART ? Page: ?? 3 us Historical Provider LAB BLOOD ORDERABLES [facility] Result HISTORICAL RESULTS documented in this encounter Visit Diagnoses Diagnosis Other disorders of menstruation and other abnormal bleeding from female genital tract documented in this encounter Care Teams Recruiter Specialist Relationship Specialty Start Date End Date Dewayne Covarrubias MD PCP - General 06/12/10 10/11/17 documented as of this encounter
--- OUTSIDE RECORDS SUMMARY | 2024-05-13 22:24 | XMS_ITS | Encounter Summary ---
Author Organization [facility] Healthcare Address [address] [place] [address] Care Team Providers Care Chainstitch Elastic Attacher Name Role Phone Zoran Willams Unavailable Unavailable Martha Lawrence MD Primary Care Provider [phone] Encounter Details Date Type Department Care Team (Latest Contact Info) Description 12/11/2019 11:33 AM CDT - 12/11/2019 12:24 PM CDT Hospital Encounter [facility] [address] [place] [id number] Discharge Disposition: Discharge to home or self care Social History Tobacco Use Types Packs/Day Years Used Date Smoking Tobacco: Never Smokeless Tobacco: Never Alcohol Use Standard Drinks/Week Comments No 0 (1 standard drink = 0.6 oz pur e alcohol) Comments No Sex and Gender Information Value Date Recorded Sex Assigned at Not on file 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
--- OUTSIDE RECORDS SUMMARY | 2024-05-13 22:24 | XMS_ITS | Encounter Summary ---
Author Organization [facility] Healthcare Address [address] [place] [address] Care Team Providers Care Associate Web Developer Name Role Phone Zoran Willams Unavailable Unavailable Martha Lawrence MD Primary Care Provider [phone] Encounter Details Date Type Department Care Team (Latest Contact Info) Description 12/11/2019 11:33 AM CDT - 12/11/2019 12:24 PM CDT Hospital Encounter [facility] [address] [place] [id number] Discharge Disposition: Discharge to home or self care Social History Tobacco Use Types Packs/Day Years Used Date Smoking Tobacco: Never Smokeless Tobacco: Never Alcohol Use Standard Drinks/Week Comments No 0 (1 standard drink = 0.6 oz pur e alcohol) Comments No Sex and Gender Information Value Date Recorded Sex Assigned at Not on file 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 ??There will be no report generated by a [facility] Radiologist. Narrative [facility] - 12/11/2019 11:33 AM CDT EXAMINATION: ??Images For Reference Purposes Only us Meggan Martinez MD IMG MAMMO PROCEDURES nal Result [facility] documented in this encounter Visit Diagnoses Not on filedocumented in this encounter Care Teams Associate Web Developer Relationship Specialty Start Date End Date Martha Lawrence [place] [address] PCP - General 02/24/19 Zoran Willams Family Medicine 05/18/18 documented as of this encounter
--- OUTSIDE RECORDS SUMMARY | 2024-05-13 22:24 | XMS_ITS | Encounter Summary ---
Author Organization [facility] Healthcare Address [address] [place] [address] Care Team Providers Care Domestic Violence Advocate Name Role Phone Dewayne Covarrubias MD Primary Care Provider [phone] Encounter Details Date Type Department Care Team (Late st Contact Info) Description 10/16/2012 10:21 AM CDT - 10/16/2012 10:56 AM CDT [facility] Kathy Maza MD [address] [place] [id number] Acute bronchitis Social History Tobacco Use Types Packs/Day Years Used Date Smoking Tobacco: Never Alcohol Use Standard Drinks/Week Comments Yes 0 (1 standard drink = 0.6 oz pur e alcohol) Comments Unknown Sex and Gender Information Value Date Recorded Sex Assigned at Not on file Legal Sex 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
--- OUTSIDE RECORDS SUMMARY | 2024-05-13 22:24 | XMS_ITS | Encounter Summary ---
Author Organization [facility] Healthcare Address [address] [place] [address] Care Team Providers Care Licensed Aircraft Maintenance Engineer Name Role Phone Dewayne Covarrubias MD Primary Care Provider [phone] Encounter Details Date Type Department Care Team (Late st Contact Info) Description 05/16/2013 7:18 PM TREE SCOUT - 05/16/2013 11:59 PM TREE SCOUT Hospital Encounter [facility] Dewayne Covarrubias MD [address] [address] Hypersomnia Social History Tobacco Use Types Packs/Day Years Used Date Smoking Tobacco: Never Alcohol Use Standard Drinks/Week Comments No 0 (1 standard drink = 0.6 oz pur e alcohol) Comments Unknown Sex and Gender Information Value Date Recorded Sex Assigned at Not on file Legal Sex Female 10:37 AM TREE SCOUT Gender Identity Not on file Sexual Orientation Not on file documented as of this encounter Plan of Treatment Not on file documented as of this encounter Procedures Procedure Name Priority Date/Time Associated Diagnosis Comments PSG (SIMPLE) Routine 05/16/2013 12:00 AM TREE SCOUT documented in this encounter Results * PSG (SIMPLE) (05/16/2013 12:00 AM TREE SCOUT) 05/16/2013 Narrative HISTORICAL RESULTS - 05/19/2013 4:30 PM TREE SCOUT ?SLEEP DISORDER REPORT Patient: ??MILES, MICOLE V. Account: ??[id number] ? Room No: : ?1980 ? Patient Type: ?ANC Attend.: ??Dewayne Covarrubias M.D. ?Admit Date: ??05/16/2013 Dict.: ?Peter Dos Santos M.D., D.M. ?Disch. Date: 05/16/2013 ?COMPREHENSIVE POLYSOMNOGRAM DATE OF PROCEDURE: ??05/16/2013. INDICATION FOR STUDY: ??Ms. Jewell is a 33-year-old morbidly obese female with chief complaints of snoring, restless sleep and excessive daytime hypersomnolence. Patient's [place] Sleepiness Scale score is 15. PAST MEDICAL HISTORY: ??1. Hypertension. ??2. Depression. VITAL STATISTICS: ??Age: ??33 years. ??Height: ??65 inches. ??Weight: ??256.1 pounds. Body mass index: ??42.1. PROCEDURE: ??The patient underwent an overnight polysomnogram with multiple channel polysomnography to include EEG, sleep stage recording, cardiorespiratory monitoring, end tidal CO2 monitoring as well as videotaping. DESCRIPTION OF POLYSOMNOGRAPHY FINDINGS: ??The patient's total time in bed was 436 minutes. ??Total sleep time was 359.5 minutes. ??Sleep efficiency was 82.5%. Latency from lights out to stage N1 was 10.6 minutes, latency to stage N2 was 13.6 minutes, latency to stage N3 was 38.1 minutes and latency to stage rapid eye movement was 373.5 minutes. ??Sleep stage recording revealed stage awake of 77 minutes. ??Stage non rapid eye movement comprised 327.5 minutes (91.1% total sleep time). ??This included stage N1 of 83.5 minutes (23.2% total sleep time), stage N2 of 187.5 minutes (52.2% total sleep time) and stage N3 of 56.5 minutes (15.7% of total sleep time). ??Stage rapid eye movement comprised 32 minutes (8.9% of total sleep time). Arousal analysis revealed a total of 125 arousals. ??The arousal index was 20.9. There were 11 spontaneous arousals. ??The spontaneous arousal index was 1.8. The apnea/hypopnea index (AHI) was 3.0. ??The AHI was 5.6 in the rapid eye movement sleep and 2.6 in non rapid eye movement sleep. ??The respiratory disturbance index (RDI) was 12.8. ??18 hypopneas and 59 respiratory event-related arousals were noted. ??Baseline oxygen saturation was 96.5%. Lowest oxygen saturation was 89.5%. There were a total of 18 oxygen desaturations. ??Longest oxygen desaturation duration was 40.8 seconds. End-tidal CO2 monitoring was undertaken. ??It ranged from 44.6 to 53.9 millimeters. Snoring was described as moderate to loud. ?? Limb movement recording revealed 54 periodic limb movements. ??Periodic limb movement index was 9.0. ??Periodic limb movement arousal index was 4.7. ?? Average heart rate during awake was 93.2, during sleep was 91.7. ??The heart rate was sinus rhythm. IMPRESSION: ??The above polysomnogram documents evidence of: 1. ??Slight reduction of sleep efficiency. 2. ??Mild obstructive sleep apnea syndrome. ??This is based on the international ?classification of sleep disordered criteria. 3. ??Moderate to loud snoring was noted. Clinical correlation is recommended. [place] A: ??Obstructive sleep apnea syndrome, 327.23. [place] B: ??Polysomnogram, 25139. ?Diplomate in Sleep Medicine ? ([place] [employer] of ? Psychiatry and Neurology) Peter Dos Santos M.D., [place]. JOSE LUIS/ruma Job #: ??[id number] DD: ??05/19/2013 09:05 TD: ??05/19/2013 10:26 Authenticated and Edited by Peter Dso Santos MD On 05/19/13 3:29:09 PM us Historical Provider SLEEP CENTER ORDERABLES F inal Result HISTORICAL RESULTS documented in this encounter Visit Diagnoses Diagnosis Hypersomnia Hypersomnia, unspecified documented in this encounter Care Teams Licensed Aircraft Maintenance Engineer Relationship Specialty Start Date End Date Dewayne Covarrubias MD PCP - General 06/12/10 10/11/17 documented as of this encounter
--- OUTSIDE RECORDS SUMMARY | 2024-05-13 22:24 | XMS_ITS | Encounter Summary ---
Author Organization [facility] Healthcare Address [address] [place] [address] Care Team Providers Care [employer] Consultant Name Role Phone Zoran Willams Unavailable Unavailable Martha Lawrence MD Primary Care Provider [phone] Reason for Visit * Reason Comments Chest Pain Encounter Details Date Type Department Care Team (Late st Contact Info) Description 02/24/2019 9:15 PM CDT - 02/25/2019 12:21 AM CDT Emergency [facility] Emergency Department [address] [place] [address] Deann Kim MD [address] [place] [address] Chest wall pain (Primary Dx) Discharge Disposition: Discharge to home or self care Social History Tobacco Use Types Packs/Day Years Used Date Smoking Tobacco: Never Smokeless Tobacco: Never Alcohol Use Standard Drinks/Week Comments No 0 (1 standard drink = 0.6 oz pur e alcohol) Comments No Sex and Gender Information Value Date Recorded Sex Assigned at Not on file Legal Sex Female 10:37 AM [employer] Gender Identity Not on file Sexual Orientation Not on file documented as of this encounter Last Filed Vital Signs Vital Sign Reading Time Taken Comments Blood Pressure 159/100 02/24/2019 10:24 PM CDT Pulse 101 02/24/2019 9:30 PM CDT Temperature 37 ??C (98.6 ??F) 02/24/2019 7:36 PM CDT Respiratory Rate 19 02/24/2019 9:30 PM CDT Oxygen Saturation 99% 02/24/2019 9:30 PM CDT Inhaled Oxygen Concentration - - Weight 111.6 kg (246 lb) 02/24/2019 7:36 PM CDT Height 167.6 cm (5' 6 ) 02/24/2019 7:36 PM CDT Body Mass Index 39.71 02/24/2019 7:36 PM CDT documented in this encounter Discharge Diagnoses Diagnosis Other chest pain - OTHER CHEST PAIN Polycystic ovarian syndrome - POLYCYSTIC OVARIAN SYNDROME Polycystic ovaries Essential (primary) hypertension - ESSENTIAL (PRIMARY) HYPERTENSION Unspecified essential hypertension Gastro-esophageal reflux disease without esophagitis - GASTRO-ESOPHAGEAL REFLUX DISEASE WITHOUT ESOPHAGITIS Obstructive sleep apnea (adult) (pediatric) - OBSTRUCTIVE SLEEP APNEA (ADULT) (PEDIATRIC) Hyperlipidemia, unspecified - HYPERLIPIDEMIA, UNSPECIFIED documented in this encounter Discharge Instructions * Attachments The following attachments cannot be sent through Care Everywhere. * Chest Wall Pain (AfterCare(R) Instructions(ER/ED)) (Fijian) documented in this encounter Medications at Time of Discharge albuterol HFA (PROVENTIL HFA,VENTOLIN HFA,PROAIR HFA) 90 mcg/actuation inhalerIndicatio ns:Acute Asthma Attack Inhale 2 puffs every 6 (six) hours as needed 01/20/2019 ALPRAZolam (XANAX) 0.25 mg tablet TAKE 1/2-1 TABLET BY MOUTH THREE TIMES A DAY 0 10/02/2017 0 amLODIPine (NORVASC) 5 mg tablet Take 5 mg by mouth daily. 0 01/25/2018 0 ibuprofen (ADVIL,MOTRIN) 800 mg tablet Take 1 tablet (800 mg total) by mouth 3 (three) times a day 21 tablet 02/24/2019 0 latanoprost (XALATAN) 0.005 % ophthalmic solution latanoprost 0.005 % eye drops INSTILL 1 DROP INTO RIGHT EYE AT BEDTIME 03/05/2018 1 venlafaxine (EFFEXOR) 75 mg tablet Take 75 mg by mouth daily. 0 09/02/2017 0 documented as of this encounter Ordered Prescriptions Prescription Sig Dispense Quantity Refills Last Filled Start Date End Date ibuprofen (ADVIL,MOTRIN) 800 mg tablet Take 1 tablet (800 mg total) by mouth 3 (three) times a day 21 tablet 02/24/2019 05/20/2019 documented in this encounter Discharge Disposition Disposition Code Departure Means Destination Comment s Discharge to home or self care ERP discussed d/c wiht pt. RN reviewed d/c instructions. Pt had no questiosn. PT verbalized understanding. PT ambualted out of the ED documented in this encounter ED Notes * Deann Kim MD - 02/24/2019 11:08 PM CDT HPI Chief Complaint Patient presents with ??? Chest Pain 9:40 PM 02/24/2019 Cesario Jewell is a 39 y.o. F with a history of YEMI, GERD, PCOS, hypertension, hyperlipidemia, tonsillectomy, breast surgery, cholecystectomy, anemia, vitamin d deficiency, anxiety, and depression, presenting to the ED, complaining of intermittent left-sided chest wall pain onset 3 months ago, worsening today at 5 PM. She describes the pain as constant, sharp, and throbbing. She states that pain is worse when moving her left upper extremity and lying on her bilateral sides. She states that she has been seen for this complaints and has already completed a mammogram, chest x-ray, and an ultrasound of the left breast and is scheduled for a Holter monitor in 4 days. She states that this pain is currently attributed to her breast as she has a previous history of breast surgery. She notes that she takes Metformin for PCOS. No other alleviating or exacerbating factors. She denies any light-headedness. No shortness of breath. History provided by: Patient director of cardiology service line used: No Patient History Patient Active Problem List Diagnosis Date Noted ??? Trochanteric bursitis, right hip 10/26/2017 ??? Tonsillitis 06/26/2014 Class: Temporary ??? Gastroesophageal reflux disease 06/26/2014 Class: Temporary ??? Obstructive sleep apnea syndrome 05/14/2014 Class: Temporary ??? Vitamin D deficiency 05/14/2014 Class: Temporary ??? 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/23/2013 Class: Chronic ??? Impaired fasting glucose 09/23/2013 Class: Chronic ??? Benign hypertension 09/23/2013 Class: Chronic ??? Depression 09/23/2013 Class: Chronic ??? Anxiety state 09/23/2013 Class: Chronic ??? Anemia 09/23/2013 Class: Chronic ??? Glaucoma 05/12/2013 Class: Chronic ??? Iron deficiency anemia 02/18/2012 Class: Chronic Past Medical History: Diagnosis Date ??? Depression Depression ??? Glaucoma glaucoma ??? HX OTHER MEDICAL L/R cataract extraction ??? HX OTHER MEDICAL Detached Retina ??? HX OTHER MEDICAL Scar tissure removal Left Eye ??? HX OTHER MEDICAL myringotomy tubes ??? HX OTHER MEDICAL Menorrhagia ??? HX OTHER MEDICAL [place] teeth extraction 12/18 ??? 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 HX OTHER MEDICAL right lens implant [...] myringotomy tubes: 1989 ??? 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 HISTORY right lens implant : Dr Barrios - [facility] ??? 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 HISTORY 2011 breast bx R - benign ??? 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 HISTORY milk duct removed right breast ; benign papilloma: Dr Alonso [facility] ??? 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 HISTORY left eye removed 02-10-12, prosthetic: Dr Fidel Hsu - [facility] ??? 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 HISTORY 1983 retinal [...] disease Other Family history of Renal disease; Social History Tobacco Use ??? Smoking status: Never Smoker ??? Smokeless tobacco: Never Used Substance Use Topics ??? Alcohol use: No ??? Drug use: No Social History Patient does not qualify to have social determinant information on file (likely too young). Social History Narrative ??? Not on file Review of Systems Review of Systems Constitutional: Negative. Negative for activity change, appetite change, chills, diaphoresis, fatigue, fever and unexpected weight change. HENT: Negative. Negative for congestion, facial swelling, nosebleeds, rhinorrhea and sore throat. Eyes: Negative. Negative for photophobia, discharge, redness and visual disturbance. Respiratory: Negative. Negative for apnea, cough, chest tightness, shortness of breath and wheezing. Cardiovascular: Negative. Negative for chest pain, palpitations and leg swelling. Gastrointestinal: Negative. Negative for abdominal distention, abdominal pain, anal bleeding, bloodin stool, constipation, diarrhea, nausea, rectal pain and vomiting. Endocrine: Negative. Negative for cold intolerance, heat intolerance, polydipsia, polyphagia and polyuria. Genitourinary: Negative. Negative for decreased urine volume, difficulty urinating, dysuria, flank pain, frequency, hematuria and urgency. Musculoskeletal: Negative. Negative for arthralgias, back pain, gait problem, joint swelling, myalgias, neck pain and neck stiffness. Left-sided chest wall pain. Skin: Negative. Negative for color change, pallor, rash and wound. Allergic/Immunologic: Negative for immunocompromised state. Neurological: Negative. Negative for dizziness, tremors, seizures, syncope, facial asymmetry, speech difficulty, weakness, light-headedness, numbness and headaches. Hematological: Negative. Does not bruise/bleed easily. Psychiatric/Behavioral: Negative. Negative for agitation, behavioral problems and confusion. All other systems reviewed and are negative. Physical Exam ED Triage Vitals [02/24/191935] Temp Pulse Resp BP SpO2 37 ??C (98.6 ??F) 109 18 (!) 170/102 99 % Temp src Heart Rate Source Patient Position BP Location FiO2 (%) Temporal -- -- -- -- Physical Exam Vitals signs and nursing note reviewed. Constitutional: General: She is not in acute distress. Appearance: She is well-developed. She is not diaphoretic. HENT: Head: Normocephalic and atraumatic. Mouth/Throat: Pharynx: No oropharyngeal exudate. Eyes: Conjunctiva/sclera: Conjunctivae normal. Pupils: Pupils are equal, round, and reactive to light. Comments: Intermittent horizontal nystagmus. Unable to move the left eye. Neck: Musculoskeletal: Normal range of motion and neck supple. Thyroid: No thyromegaly. Vascular: No JVD. Trachea: No tracheal deviation. Cardiovascular: Rate and Rhythm: Normal rate and regular rhythm. Heart sounds: Normal heart sounds. Pulmonary: Effort: Pulmonary effort is normal. No respiratory distress. Breath sounds: Normal breath sounds. No stridor. No wheezing or rales. Chest: Chest wall: Tenderness (upper left side, lateral left side) present. Comments: No breast tenderness. No redness or swelling of the left breast. No bruising or swelling of the chest wall. Abdominal: General: Bowel sounds are normal. There is no distension. Palpations: Abdomen is soft. There is no mass. Tenderness: There is no tenderness. There is no guarding or rebound. Musculoskeletal: Normal range of motion. General: No tenderness or deformity. Lymphadenopathy: Cervical: No cervical adenopathy. Skin: General: Skin is warm and dry. Capillary Refill: Capillary refill takes less than 2 seconds. Coloration: Skin is not pale. Findings: No erythema or rash. Neurological: Mental Status: She is alert and oriented to person, place, and time. Cranial Nerves: No cranial nerve deficit. Sensory: No sensory deficit. Motor: No abnormal muscle tone. Coordination: Coordination normal. Psychiatric: Behavior: Behavior normal. Thought Content: Thought content normal. [facility] Labs Reviewed CBC WITH AUTO DIFFERENTIAL - Abnormal Result Value WBC 10.8 (*) Hgb 13.7 Hct 42.4 Plt 429 (*) MPV 9.4 RBC 5.98 (*) MCV 70.9 (*) MCH 22.9 (*) MCHC 32.3 RDW CV 15.4 (*) RDW SD 38.9 NRBC abs 0.00 DIFFERENTIAL AUTO - Abnormal Neutrophil abs 6.6 (*) Imm gran abs 0.0 Lymphocyte abs 3.2 Monocyte abs 0.7 Eosinophil abs 0.2 Basophil abs 0.1 Neutrophil pct 60.7 Imm gran pct 0.4 Lymphocyte pct 29.3 Monocyte pct 6.9 Eosinophil pct 2.1 Basophil pct 0.6 BASIC METABOLIC PANEL Sodium 138 Potassium, pl 3.9 Chloride 100 CO2 28 Anion gap 10 BUN 9 Creatinine 1.01 Glucose 113 Calcium 9.5 TROPONIN T Troponin T <0.01 EGFR GFR 71 XR Chest 1 Vw Portable Final Result 1. No active disease. Electronically signed by: Camden Ibarra Jr., M.D. BP 159/100 Pulse 101 Temp 37 ??C (98.6 ??F) (Temporal) Resp 19 Ht 167.6 cm (5' 6 ) Wt 111.6 kg (246 lb) LMP 02/24/2019 SpO2 99% BMI 39.71 kg/m?? Procedures MDM Number of Diagnoses or Management Options Amount and/or Complexity of Data Reviewed Clinical lab tests: ordered and reviewed Tests in the medicine section of CPT??: ordered and reviewed Independent visualization of images, tracings, or specimens: yes Risk of Complications, Morbidity, and/or Mortality Presenting problems: moderate Diagnostic procedures: moderate Management options: moderate Patient Progress Patient progress: stable ED Course as of Feb 27 132 Time: 02/24 3300 Value: BP(!): 170/102 Comment: Pre-hypertension/Hypertension: The patient has been informed that they may have pre-hypertension or Hypertension based on a blood pressure reading in the Emergency Department. I recommend that the patient call the primary care provider listed on their discharge instructions or a physician of their choice this week to arrange follow up for further evaluation of possible pre- hypertension or Hypertension. By: Martha Forman Time: 02/24 4994 Comment: Rechecked patient. Condition is improved. Patient responded well to Ibuprofen. Discussed the results of ED findings, including test results, and the plan for discharge. Discussed ruling out cardiac etiology, pain is chest wall pain, and recommended Ibuprofen tid for a week or so. Recommended follow up with PCP or return to ED for new or worsening symptoms. Patient understands and agrees with plan. All other questions have been addressed. By: Martha Forman Chest wall pain Disposition: Discharge Condition: Stable Martha Forman scribed for Deann Kim MD, in the doctor's presence. I electronically signed this note at 11:13 PM on 02/24/2019. I, Deann Kim MD, have personally performed the services described in the documentation , reviewed the documentation, as recorded by the scribe in my presence, and it accurately and completely records my words and actions. Deann Kim MD 02/26/19 0132 * Debi Worrell RN - 02/24/2019 7:37 PM CDT Patient to ED c/o mid and left sided chest tightness intermittently today. Patient reports she's been having chest pain intermittently for a few months, has seen her doctor. Denies shortness of breath, pain else where. NAD at this time. documented in this encounter Miscellaneous Notes * ED Procedure Note - Deann Kim MD - 02/25/2019 12:03 AM CDT Associated Order(s): ECG 12 lead Procedure ECG 12 lead Date/Time: 02/25/2019 7:30 PM Performed by: Deann Kim MD Authorized by: Deann Kim MD Rate: ECG rate: 109 ECG rate assessment: tachycardic Rhythm: Rhythm: sinus rhythm Ectopy: Ectopy: none QRS: QRS axis: Normal Conduction: Conduction: normal ST segments: ST segments: Normal T waves: T waves: normal Interpretation: Interpretation: normal Recommended Follow-up: Recommended follow up: no further workup needed Deann Kim MD 02/25/19 0005 documented in this encounter Plan of Treatment Not on file documented as of this encounter Procedures Procedure Name Priority Date/Time Associated Diagnosis Comments XR CHEST 1 VIEW ED 02/24/2019 11:36 PM CDT EGFR STAT 02/24/2019 8:19 PM CDT DIFFERENTIAL AUTO STAT 02/24/2019 8:1 9 PM CDT CBC WITH AUTO DIFFERENTIAL STAT 02/24/2019 8:19 PM CDT TROPONIN T STAT 02/24/2019 8:19 PM CDT BASIC METABOLIC PANEL STAT 02/24/2019 8:19 PM CDT ECG 12-LEAD STAT 02/24/2019 7:30 PM CDT documented in this encounter Results * XR Chest 1 Vw Portable (02/24/2019 11:36 PM CDT) Anatomical Region Laterality Modality Body, Chest N/A Computed Radiogr aphy 02/24/2019 11:3 8 PM CDT Impressions 02/24/2019 11:45 PM CDT 1. No active disease. Electronically signed by: Camden Ibarra Jr., M.D. Narrative 02/24/2019 11:45 PM CDT XR CHEST 1 VIEW HISTORY: chest pain. COMPARISON: None available. VIEWS: Erect AP portable chest at 2331 hours FINDINGS: Heart size is normal. ??Pulmonary vascularity is normal . Thoracic aorta is not dilated. No infiltrate, mass or pleural effusion is seen. Bony structures are unremarkable. Procedure Note Camden Ibarra Jr., MD - 02/24/2019 XR CHEST 1 VIEW HISTORY: chest pain. COMPARISON: None available. VIEWS: Erect AP portable chest at 2331 hours FINDINGS: Heart size is normal. Pulmonary vascularity is normal . Thoracic aorta is not dilated. No infiltrate, mass or pleural effusion is seen. Bony structures are unremarkable. IMPRESSION: 1. No active disease. Electronically signed by: Camden Ibarra Jr., M.D. Deann Kim MD IMG XR PROCEDURES F inal Result * eGFR (02/24/2019 8:19 PM CDT) eGFR 71 mL/min/1.7 3 m2 [facility] ([facility] Comment: Interpretive Data Reference Interval Normal ?>/= 90 mL/min/1.73m2 Mildly decreased* ? 60 - 89 mL/min/1.73m2 Mildly to moderately decreased ?45 - 59 mL/min/1.73m2 Moderately to severely decreased ??30 - 44 mL/min/1.73m2 Severely decreased ?15 - 29 mL/min/1.73m2 Kidney Failure ?< 15 ??mL/min/1.73m2 *Relative to young adult level If -Algerian multiply value by 1.16. Estimated glomerular filtration [...] was last reviewed 2015. Blood specimen (specimen) 02/24/2019 8:19 PM CDT 02/24/2019 8:22 PM CDT Deann Kim MD LAB BLOOD ORDERABLE S Final Result [facility] ([facility] [address] [place] [address] * (ABNORMAL) Differential, auto (02/24/2019 8:19 PM CDT) Neutrophil abs 6.6(H) 1.7 - 6.5 K/cumm [facility] ([place]) Imm gran abs 0.0 0.0 - 0.1 K/cumm [facility] ([facility]) Lymphocyte abs 3.2 0.8 - 3.3 K/cumm [facility] ([place]) Monocyte abs 0.7 0.2 - 0.8 K/cumm [facility] ([place]) Eosinophil abs 0.2 0.0 - 0.5 K/cumm [facility] ([facility]) Basophil abs 0.1 0.0 - 0.1 K/cumm [facility] ([place]) Neutrophil pct 60.7 % [facility] ([facility]) Comment: Interpretive Data Percent cell count reference ranges are not reported, since discordance with absolute values may lead to misinterpretation of CBC data. Current Interpretive Data was last revised on 2017. Imm gran pct 0.4 % [facility] ([facility]) Comment: Interpretive Data Percent cell count reference ranges are not reported, since discordance with absolute values may lead to misinterpretation of CBC data. Current Interpretive Data was last revised on 2017. Lymphocyte pct 29.3 % [facility] ([facility]) Comment: Interpretive Data Percent cell count reference ranges are not reported, since discordance with absolute values may lead to misinterpretation of CBC data. Current Interpretive Data was last revised on 2017. Monocyte pct 6.9 % [facility] ([place]) Comment: Interpretive Data Percent cell count reference ranges are not reported, since discordance with absolute values may lead to misinterpretation of CBC data. Current Interpretive Data was last revised on 2017. Eosinophil pct 2.1 % [facility] ([facility]) Comment: Interpretive Data Percent cell count reference ranges are not reported, since discordance with absolute values may lead to misinterpretation of CBC data. Current Interpretive Data was last revised on 2017. Basophil pct 0.6 % [facility] ([place]) Comment: Interpretive Data Percent cell count reference ranges are not reported, since discordance with absolute values may lead to misinterpretation of CBC data. Current Interpretive Data was last revised on 2017. Blood specimen (specimen) 02/24/2019 8:19 PM CDT 02/24/2019 8:22 PM CDT Deann Kim MD LAB BLOOD ORDERABLE S Final Result Performing Organization Address [facility] de Phone Number [facility] ([facility]) [address] [place] [address] * Troponin T (02/24/2019 8:19 PM CDT) Troponin T <0.01 0.00 - 0.01 ng/mL [facility] ([facility] Comment: Interpretive Data Reference ranges for children <18 years of age have not been established. - > or = 18 years: Serial determinations are recommended for the diagnosis of myocardial infarction. ??Temporal rise and fall are consistent with myocardial infarction when at least one value is above the 99th percentile upper reference limit for troponin assay. ??Journal of the [place] [employer] 2012;60:1581-98. Current Interpretive Data Last Revised Date: 2017. Blood specimen (specimen) 02/24/2019 8:19 PM CDT 02/24/2019 8:22 PM CDT Deann Kim MD LAB BLOOD ORDERABLE S Final Result Performing Organization Address [facility] de Phone Number [facility] ([facility] [address] [place] [address] * (ABNORMAL) CBC with auto differential (02/24/2019 8:19 PM CDT) WBC 10.8(H) 3.8 - 9.9 K/cumm [facility] ([facility]) Hgb 13.7 11.9 - 15.5 g/dL [facility] ([facility]) Hct 42.4 35.6 - 45.5 % [facility] ([facility]) Plt 429(H) 150 - 400 K/cumm [facility] ([facility]) MPV 9.4 9.1 - 12.3 fL [facility] ([place]) RBC 5.98(H) 3.90 - 5.20 M/cumm [facility] ([place]) MCV 70.9(L) 81.3 - 96.4 fL [facility] ([place]) MCH 22.9(L) 27.1 - 33.3 pg [facility] ([place]) MCHC 32.3 32.3 - 35.7 g/dL [facility] ([place]) RDW CV 15.4(H) 11.1 - 14.9 % [facility] ([place]) RDW SD 38.9 35.7 - 48.1 fL [facility] ([place]) NRBC abs 0.00 0.00 - 0.01 K/cumm [facility] ([place]) Blood specimen (specimen) 02/24/2019 8:19 PM CDT 02/24/2019 8:22 PM CDT Deann Kim MD LAB BLOOD ORDERABLE S Final Result [facility] ([place]) [address] [place] [id number] * Basic metabolic panel (02/24/2019 8:19 PM CDT) Sodium 138 135 - 145 mmol/L [facility] Potassium, pl 3.9 3.3 - 4.9 mmol/L [facility] ([place]) Chloride 100 97 - 110 mmol/L [facility] ([place]) CO2 28 22 - 32 mmol/L [facility] Anion gap 10 2 - 15 mmol/L [facility] BUN 9 8 - 25 mg/dL [facility] Creatinine 1.01 0.60 - 1.10 mg/dL [facility] ([place]) Glucose 113 70 - 199 mg/dL [facility] Comment: Interpretive Data Fasting glucose [...] 2017. Calcium 9.5 8.5 - 10.3 mg/dL [facility] ([place]) Blood specimen (specimen) 02/24/2019 8:19 PM CDT 02/24/2019 8:22 PM CDT Deann Kim MD LAB BLOOD ORDERABLE S Final Result Performing Organization Address [facility] Co de Phone Number [facility] ([place] [address] [place] [address] * ECG 12 lead (02/24/2019 7:30 PM CDT) 02/24/2019 7:30 PM CDT Narrative [facility] - 02/25/2019 1:55 PM CDT Vent Rate: 109 bpm RR Interval: 548 msec SD Interval: 159 msec QRS Duration: 102 msec QT Interval: 369 msec QTC Interval: 433 msec P-R-T [place]: 47 - 9 - 34 degrees SINUS TACHYCARDIA NONSPECIFIC T-WAVE ABNORMALITY ABNORMAL RHYTHM ECG Electronically Signed By: Salo Shepherd MD Deann Kim MD ECG ORDERABLES Fin al Result Performing Organization Address [facility] Co de Phone Number [employer] [place] [facility] documented in this encounter Visit Diagnoses Diagnosis Chest wall pain- Primary Painful respiration documented in this encounter Administered Medications Inactive Administered Medications - up to 3 most recent administrations Medication Order MAR Action Action Date Dose Rate Site ketorolac (TORADOL) injection 30 mg 30 mg, intramuscular, Once, On Wed02/24/19 at 2156, For 1 dose, For Adult IV push, administer over 15 seconds Given 02/24/2019 10:20 PM CDT 30 mg Left Ventrogluteal documented in this encounter Active and Recently Administered Medications Times are shown in CDT. Scheduled Medication Order 02/23/2019 02/24/2019 02/25/2019 ketorolac (TORADOL) injection 30 mg (COMPLETED) 30 mg, intramuscular, Once, On Wed02/24/19 at 2156, For 1 dose, For Adult IV push, administer over 15 seconds 2220 (Given - Provider: Steven Magana, SANJANA) documented in this encounter Orders Medications Ordered That Ben ht Not Have Been Administered Count Last Ordered Date First Ordered Date ketorolac (TORADOL) injection 30 mg 1 02/24 documented in this encounter Care Teams [employer] Consultant Relationship Specialty Start Date End Date Martha Lawrence MD [address] [place] [address] PCP - General 02/24/19 Zoran Willams [facility] 05/18/18 documented as of this encounter
--- OUTSIDE RECORDS SUMMARY | 2024-05-13 22:24 | XMS_ITS | Encounter Summary ---
Author Organization [facility] Healthcare Address [address] [place] [address] Care Team Providers Care Mold Tooler Name Role Phone Zoran Willams Unavailable Unavailable Martha Lawrence MD Primary Care Provider [phone]- [phone] Reason for Visit * Diagnostic Imaging (Routine) - Closed Specialty Diagnoses / Procedures Referred By Contac t Referred To Contact Procedures Breast Imaging US Outside Reference Meggan Martinez MD [address] [place] [address] Phone: tel: fax: Referral ID Status Reason Start Date Expiration Date Visits Re quested Visits Authorized [id number] Closed 03/18/2021 04/17/2022 1 1 Encounter Details Date Type Department Care Team (Latest Contact Info) Description 06/02/2019 - 06/02/2019 11:59 PM TMH TEACHER Hospital Encounter [facility] [address] [place] [id number] Discharge Disposition: Discharge to home or self care Social History Tobacco Use Types Packs/Day Years Used Date Smoking Tobacco: Never Smokeless Tobacco: Never Alcohol Use Standard Drinks/Week Comments No 0 (1 standard drink = 0.6 oz pur e alcohol) Comments No Sex and Gender Information Value Date Recorded Sex Assigned at Not on file Legal Sex Female 10:37 AM 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 TEACHER Gender Identity Not on file Sexual Orientation Not on file documented as of this encounter Medications at Time of Discharge albuterol HFA (PROVENTIL HFA,VENTOLIN HFA,PROAIR HFA) 90 mcg/actuation inhalerIndication s:Acute Asthma Attack Inhale 2 puffs every 6 (six) hours as needed 01/20/2019 cholecalciferol (VITAMIN D-3) 5,000 unit tabletIndications :Vitamin D Deficiency Take 1 tablet (5,000 Units total) by mouth every morning cefdinir (OMNICEF) 300 mg capsuleIndication s:Acute recurrent maxillary sinusitis,ETD (Eustachian tube dysfunction), left Take 2 capsules (600 mg total) by mouth daily for 14 days 28 capsule 05/26/2019 0 amLODIPine (NORVASC) 10 mg tablet 03/13/2019 0 fluticasone propionate (FLONASE) 50 mcg/actuation nasal sprayIndications: Nasal turbinate hypertrophy Administer 2 sprays into each nostril daily 16 g 05/20/2019 0 fluticasone propionate (FLONASE) 50 mcg/actuation nasal sprayIndications: Acute recurrent maxillary sinusitis,ETD (Eustachian tube dysfunction), left Administer 2 sprays into each nostril daily 16 g 11 05/26/2019 0 latanoprost (XALATAN) 0.005 % ophthalmic solution latanoprost 0.005 % eye drops INSTILL 1 DROP INTO RIGHT EYE AT BEDTIME 03/05/2018 1 metFORMIN XR (GLUCOPHAGE XR) 500 mg 24 hr tabletIndications :Polycystic Ovarian Syndrome Take 500 mg by mouth daily with breakfast 04/20/2019 1 spironolactone (ALDACTONE) 50 mg tablet 05/13/2019 0 venlafaxine (EFFEXOR) 75 mg tablet Take 75 mg by mouth daily. 0 09/02/2017 0 documented as of this encounter Discharge Disposition Disposition Code Departure Means Destination Discharge to home or self care documented in this encounter Plan of Treatment Not on file documented as of this encounter Procedures Procedure Name Priority Date/Time Associated Diagnosis Comments BREAST IMAGING US OUTSIDE REFERENCE Routine 06/02/2019 12:00 AM TMH TEACHER documented in this encounter Results * Breast Imaging US Outside Reference (06/02/2019 12:00 AM TMH TEACHER) Impressions [facility] - 03/18/2021 8:36 AM TMH TEACHER These images are for Reference purposes only and have not been reviewed by [facility]. ??There will be no report generated by a [facility] Radiologist. Narrative [facility] - 03/18/2021 8:36 AM TMH TEACHER EXAMINATION: ??Images For Reference Purposes Only us Meggan Martinez MD IMG MAMMO PROCEDURES Fi nal Result [facility] documented in this encounter Visit Diagnoses Not on filedocumented in this encounter Care Teams Mold Tooler Relationship Specialty Start Date End Date Martha Lawrence MD [place] [address] PCP - General 02/24/19 Zoran Willams Family Medicine 05/18/18 documented as of this encounter
--- OUTSIDE RECORDS SUMMARY | 2024-05-13 22:24 | XMS_ITS | Encounter Summary ---
Author Organization [facility] Facility Care Team Providers Care Calcine Furnace Loader Name Role Phone Zoran Willams Unavailable Unavailable Martha Lawrence MD Primary Care Provider [phone]- [phone] Encounter Details Date Type Department Care Team (Latest Contact Info) Description 07/06/2019 Travel Social History Tobacco Use Types Packs/Day Years Used Date Smoking Tobacco: Never Smokeless Tobacco: Never Alcohol Use Standard Drinks/Week Comments No 0 (1 standard drink = 0.6 oz pur e alcohol) Comments No Sex and Gender Information Value Date Recorded Sex Assigned at Not on file 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
--- OUTSIDE RECORDS SUMMARY | 2024-05-13 22:24 | XMS_ITS | Encounter Summary ---
Author Organization [facility] Address [address] [place] [address] Care Team Providers Care Gas Manager Name Role Phone Екатерина Zoran Tayo Unavailable Unavailable Martha Lawrence MD Primary Care Provider [phone]- [phone] Reason for Visit * Reason Comments Follow-up Right is better than the left. Encounter Details Date Type Department Care Team (Late st Contact Info) Description 07/21/2019 9:00 AM CDT Office Visit [facility] - [facility] 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 No / Unsure 07/21/2019 9:02 AM CDT documented as of this encounter Last Filed Vital Signs Vital Sign Reading Time Taken Comments Blood Pressure 129/85 07/21/2019 9:10 AM CDT Pulse - - Temperature 36.9 ??C (98.5 ??F) 07/21/2019 9:10 AM CD T Respiratory Rate - - Oxygen Saturation - - Inhaled Oxygen Concentration - - Weight 111.1 kg (245 lb) 07/21/2019 9:10 AM CDT Height 167.6 cm (5' 6 ) 07/21/2019 9:10 AM CDT Body Mass Index 39.54 07/21/2019 9:10 AM CDT documented in this encounter Patient Instructions * Patient Instructions* Roya Montes DO - 07/21/2019 9:00 AM CDT Avoid ear cleaning techniques Avoid water to ears Follow up in 6 months, earlier with any ear drainage documented in this encounter Progress Notes * Roya Montes DO - 07/21/2019 9:00 AM CDT ENT Progress Note Reason for Follow up: ear check Requesting Provider: No att. providers found SUBJECTIVE: Patient was following up for ear check. HPI: Micole reported complaint being improved. She reported continuing to use Q-tips in ears Last seen: 07/06/2019 ETD (Eustachian tube dysfunction), left (Primary) Assessment & Plan: Bilateral myringotomy with T-tube placement in Office today Risks and complications discussed including anesthesia, bleeding, infection, hearing loss, ear tubes may fall out early, fall inwards, stay in longer than a few years, get clogged, fall out and leavea hole in the ear drum that would need to be patched, drain clear fluid. ?? Orders: - ofloxacin (OCUFLOX) 0.3 % ophthalmic solution; Administer 5 drops into each ear 2 (two) times a day for 5 days Current Outpatient Medications on File Prior to [...] , Reaction: Hives, , OBJECTIVE: Vitals BP 129/85 (BP Location: Left arm, Patient Position: Sitting) Temp 36.9 ??C (98.5 ??F) (Oral) Ht 167.6 cm (5' 6 ) Wt 111.1 kg (245 lb) BMI 39.54 kg/m?? Review of Systems HENT: Positive for ear pain. Negative for ear discharge and hearing loss. Physical Exam Constitutional: She is oriented to person, place, and time. She appears well- developed. She is cooperative. No distress. HENT: Head: Normocephalic and atraumatic. Right Ear: Hearing, external ear and ear canal normal. Left Ear: Hearing, external ear and ear canal normal. Nose: Nose normal. No mucosal edema, rhinorrhea, sinus tenderness or nasal deformity. Mouth/Throat: Uvula is midline, oropharynx is clear and moist and mucous membranes are normal. No oral lesions. Right ear: t-tube in place, patent, no otorrhea Left ear: T-tube in place, pushed in, no otorrhea, T-tube was pulled out slightly with improvement in ear pressure Eyes: Pupils are equal, round, and reactive [...] speech is normal and behavior is normal. Binocular microscopy Performed by: ROYA MONTES Authorized by: ROYA MONTES Preparation: Patient was prepped and draped in the usual fashion. Patient sedated: no Patient tolerance: Patient tolerated the procedure well with no immediate complications Comments: Under visualization of the operating microscope, the ear canal was examined and T-tube adjusted into a horizontal position more lateral to previous position, cotton fibers noted on T-tube Assessment & Plan: Diagnoses and all orders for this visit: ETD (Eustachian tube dysfunction), left (Primary) Assessment & Plan: Avoid ear cleaning techniques Avoid water to ears Follow up in 6 months, earlier with any ear drainage Roya Montes DO documented in this encounter Miscellaneous Notes * Assessment & Plan Note - Roya Montes DO - 07/21/2019 9:18 AM CDT Associated Problem(s): ETD (Eustachian tube dysfunction), left Avoid ear cleaning techniques Avoid water to ears Follow up in 6 months, earlier with any ear drainage documented in this encounter Plan of Treatment Not on file documented as of this encounter Visit Diagnoses Diagnosis ETD (Eustachian tube dysfunction), left- Primary documented in this encounter Care Teams Gas Manager Relationship Specialty Start Date End Date Martha Lawrence MD [address] [employer] [employer] [place] [address] PCP - General 02/24/19 Zoran Willams Family Medicine 05/18/18 documented as of this encounter
--- OUTSIDE RECORDS SUMMARY | 2024-05-13 22:24 | XMS_ITS | Encounter Summary ---
Author Organization [facility] Address [address] [place] [address] Care Team Providers Care Certified Orthoptist Name Role Phone Zoran Willams Unavailable Unavailable Martha Lawrence MD Primary Care Provider [phone]- [phone] Reason for Visit * Reason Onset Date Comments Prior Auth 07/06/2019 tubes Encounter Details Date Type Department Care Team (Late st Contact Info) Description 07/06/2019 Documentation [facility] ENT Specialists - [address] [place] [phone] Aylin Gil MA Prior Auth (tubes) Social History Tobacco Use Types Packs/Day Years Used Date Smoking Tobacco: Never Smokeless Tobacco: Never Alcohol Use Standard Drinks/Week Comments No 0 (1 standard drink = 0.6 oz pur e alcohol) Comments No Sex and Gender Information Value Date Recorded Sex Assigned at Not on file Legal Sex Female 10:37 AM KIT PLANNER Gender Identity Not on file Sexual Orientation Not on file documented as of this encounter Progress Notes * Aylin Gil MA - 07/06/2019 10:18 AM CST Called pt's insurance, spoke with Jacinta. [place] checked the code 12410 for tubes, no authorization required. Call reference # [id number] PLANNER documented in this encounter Plan of Treatment Not on file documented as of this encounter Visit Diagnoses Not on filedocumented in this encounter Care Teams Certified Orthoptist Relationship Specialty Start Date End Date Martha Lawrence MD [address] [address] PCP - General 02/24/19 Zoran Willams Family Medicine 05/18/18 documented as of this encounter
--- OUTSIDE RECORDS SUMMARY | 2024-05-13 22:24 | XMS_ITS | Encounter Summary ---
Author Organization [facility] Facility Care Team Providers Care Tig Welder Name Role Phone Zoran Willams Unavailable Unavailable Martha Lawrence MD Primary Care Provider +1- [phone] Encounter Details Date Type Department Care Team (Latest Contact Info) Description 07/21/2019 Travel Social History Tobacco Use Types Packs/Day Years Used Date Smoking Tobacco: Never Smokeless Tobacco: Never Alcohol Use Standard Drinks/Week Comments No 0 (1 standard drink = 0.6 oz pur e alcohol) Comments No Sex and Gender Information Value Date Recorded Sex Assigned at Not on file Legal 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 No / Unsure 07/21/2019 9:02 AM CDT documented as of this encounter Plan of Treatment Not on file documented as of this encounter Visit Diagnoses Not on filedocumented in this encounter Care Teams Tig Welder Relationship Specialty Start Date End Date Martha Lawrence MD [place] [address] PCP - General 02/24/19 Zoran Willams Family Medicine 05/18/18 documented as of this encounter
--- OUTSIDE RECORDS SUMMARY | 2024-05-13 22:24 | XMS_ITS | Encounter Summary ---
Author Organization [facility] Address [address] [place] [address] Care Team Providers Care Digital Color Press Operator Name Role Phone Zoran Willams Unavailable Unavailable Martha Lawrence MD Primary Care Provider [phone] Reason for Referral * Consultation (Routine) - Closed Specialty Diagnoses / Procedures Referred By Contac t Referred To Contact Otolaryngology Diagnoses Left ear pain Homer Contreras, RIZWAN [address] [place] [address] Phone: tel: Brit Montes DO Phone: tel: fax: Referral ID Status Reason Start Date Expiration Date V isits Requested Visits Authorized [id number] Closed Specialty Services Required 05/20/2019 11/28/2020 1 1 Question Answer Please select the performing region: [facility] [[id number]] Please select the performing department: [facility] E[facility] [[id number]] # of visits: 1 Comments Left ear pain not improving no infection note drum sunken, felt a pop and had some yellow drainage 2 days prior D APPRAISER Reason for Visit * Reason Comments Earache x 3 days, worse toda y, had drainage out of left ear yesterday, hx of tubes, has congestion too, tried OTC meds for congestion Encounter Details Date Type Department Care Team (Late st Contact Info) Description 05/20/2019 11:00 AM FIELD APPRAISER Office Visit [facility] [address] [place] [address] Homer Contreras, RIZWAN [address] [place] [address] Left ear pain (Primary Dx); Disorder of left eustachian tube; Nasal turbinate hypertrophy Social History Tobacco Use Types Packs/Day Years Used Date Smoking Tobacco: Never Smokeless Tobacco: Never Alcohol Use Standard Drinks/Week Comments No 0 (1 standard drink = 0.6 oz pur e alcohol) Comments No Sex and Gender Information Value Date Recorded Sex Assigned at Not on file Legal Sex Female 10:37 AM FIELD APPRAISER Gender Identity Not on file Sexual Orientation Not on file documented as of this encounter Last Filed Vital Signs Vital Sign Reading Time Taken Comments Blood Pressure 124/86 05/20/2019 11:08 AM FIELD APPRAISER Pulse 104 05/20/2019 11:08 AM FIELD APPRAISER Temperature 36.6 ??C (97.9 ??F) 05/20/2019 11:[address] Respiratory Rate 18 05/20/2019 11:08 AM FIELD APPRAISER Oxygen Saturation 98% 05/20/2019 11:08 AM FIELD APPRAISER Inhaled Oxygen Concentration - - Weight 111.1 kg (245 lb) 05/20/2019 11:08 AM FIELD APPRAISER Height 167.6 cm (5' 6 ) 05/20/2019 11:08 AM FIELD APPRAISER Body Mass Index 39.54 05/20/2019 11:08 AM FIELD APPRAISER documented in this encounter Patient Instructions * Patient Instructions* Homer Contreras, RIZWAN - 05/20/2019 11:00 AM FIELD APPRAISER Ear drops as directed. Please follow up with Brit Montes, DO Ear, Nose and Throat / Otolaryngology [address] [place], [place] [id number] Patient Education Earache WHAT YOU NEED TO KNOW: What causes an earache? An earache can be caused by a problem within your ear. A problem or condition in another body area can also cause pain that travels to your ear. An earache can be caused by any of the following: ?? Infection of the inner or outer ear ?? Earwax buildup, or small objects put into your ear ?? Ear injury caused by a cotton swab or by air pressure changes from a plane ride or scuba diving ?? Other infections, such as tonsillitis or pharyngitis ?? Jaw or dental problems such as cavities or TMJ ?? Neck pain caused by problems such as arthritis in your upper spine How is an earache diagnosed? Your healthcare provider will examine your ears, head, neck, and mouth. He will also ask you to describe your symptoms. You may also receive any of the following: ?? Audiometry is a test used to check for hearing loss. Your healthcare provider will play sounds at different volumes to check how much you can hear. ?? Tympanometry is a test used to check pressure changes that may be a sign of problems with your inner ear. How is an earache treated? ?? NSAIDs , such as ibuprofen, help decrease swelling, pain, and fever. This medicine is available with or without a doctor's order. NSAIDs can cause stomach bleeding or kidney problems in certain people. If you take blood thinner medicine, always ask if NSAIDs are safe for you. Always read the medicine label and follow directions. Do not give these medicines to children under 6 months of age without direction from your child's healthcare provider. ?? Acetaminophen decreases pain and fever. It is available without a doctor's order. Ask how much to take and how often to take it. Follow directions. Acetaminophen can cause liver damage if not taken correctly. When should I seek immediate care? ?? You have a severe earache. ?? You have ear pain with itching, hearing loss, dizziness, a feeling of fullness in your ear, or ringing in your ears. When should I contact my healthcare provider? ?? Your ear pain worsens or does not go away with treatment. ?? You have drainage from your ear. ?? You have a fever. ?? Your outer ear becomes red, swollen, and warm. ?? You have questions or concerns about your condition or care. CARE AGREEMENT: You have the right to help plan your care. Learn about your health condition and how it may be treated. Discuss treatment options with your caregivers to decide what care you want to receive. You always have the right to refuse treatment. The above information is an travelers' aid worker only. It is not intended as medical advice for individual conditions or treatments. Talk to your doctor, nurse or pharmacist before following any medical regimen to see if it is safe and effective for you. ?? 2017 [employer] Information is for End User's use only and may not be sold, redistributed or otherwise used for commercial purposes. All illustrations and images included in CareNotes?? are the copyrighted property of [employer] or [employer]. D APPRAISER D APPRAISER documented in this encounter Ordered Prescriptions Prescription Sig Dispense Quantity Refills Last Filled Start Date End Date fluticasone propionate (FLONASE) 50 mcg/actuation nasal sprayIndications:N [place] turbinate hypertrophy Administer 2 sprays into each nostril daily 16 g 05/20/2019 0 ofloxacin (FLOXIN) 0.3 % otic solutionIndication s:Left ear pain Administer 4 drops into the left ear 2 (two) times a day for 7 days 10 mL 05/20/2019 0 documented in this encounter Progress Notes * Homer Contreras, RADIOTELEGRAPH OPERATOR SERVICER - 05/20/2019 10:45 AM CST Images from the original note were not included. Subjective/Objective Patient ID: Cesario Jewell is a 39 y.o. female. Chief Complaint Earache (x 3 days, worse today, had drainage out of left ear yesterday, hx of tubes, has congestiontoo, tried OTC meds for congestion) Left ear pain, felt the ear pop a couple of days ago and had some yellow drainage no perforation noted at this time. Reports decreased hearing after ear popped. Earache There is pain in the left ear. This is a new problem. The current episode started in the past 7 days. The problem occurs constantly. The problem has been waxing and waning. There has been no fever. The pain is at a severity of 6/10. The pain is moderate. Pertinent negatives include no abdominal pain, coughing, headaches or hearing loss. She has tried NSAIDs for the symptoms. Review of Systems Constitutional: Negative for activity change and fever. HENT: Positive for ear pain. Negative for congestion and hearing loss. Respiratory: Negative for cough. Cardiovascular: Negative for chest pain. Gastrointestinal: Negative for abdominal pain. Musculoskeletal: Negative for arthralgias and myalgias. Allergic/Immunologic: Negative for environmental allergies. Neurological: Negative for headaches. Psychiatric/Behavioral: Negative for confusion. Physical Exam Vitals signs and nursing note reviewed. Constitutional: Appearance: She is well-developed. HENT: Head: Normocephalic. Right Ear: Hearing, tympanic membrane and ear canal normal. Left Ear: Ear canal and external ear normal. Decreased hearing noted. Tympanic membrane is retracted. Eyes: Conjunctiva/sclera: Conjunctivae normal. Neck: Musculoskeletal: Normal range of motion and neck supple. Cardiovascular: Rate and Rhythm: Normal rate and regular rhythm. Heart sounds: Normal heart sounds. Pulmonary: Effort: Pulmonary effort is normal. Breath sounds: Normal breath sounds. Musculoskeletal: Normal range of motion. Skin: General: Skin is warm and dry. Findings: No erythema or rash. Neurological: Mental Status: She is alert and oriented to person, place, and time. Psychiatric: Mood and Affect: Mood normal. Behavior: Behavior normal. Vitals: 05/20/19 1108 BP: 124/86 BP Location: Left arm Patient Position: Sitting Pulse: 104 Resp: 18 Temp: 36.6 ??C (97.9 ??F) TempSrc: Oral SpO2: 98% Weight: 111.1 kg (245 lb) Height: 167.6 cm (5' 6 ) Assessment/Plan Ear drops as directed. Please follow up with Brit Montes, Ear, Nose and Throat / Otolaryngology [address] [place] [address] Diagnoses and all orders for this visit: Left ear pain (Primary) - ofloxacin (FLOXIN) 0.3 % otic solution; Administer 4 drops into the left ear 2 (two) times a day for 7 days - Ambulatory referral to ENT; Future Disorder of left eustachian tube Nasal turbinate hypertrophy - fluticasone propionate (FLONASE) 50 mcg/actuation nasal spray; Administer 2 sprays into each nostril daily No notes on file Written Information was given to patient regarding diagnosis and treatment. Disposition- Discussed medications dosages, usage & potential side effects. Red flags reviewed.Patient has been instructed to follow up w PCP or go to ER for any signs or symptoms that are of concern or worsening. Patient verbalizes understanding. The patient was given the opportunity to ask all questions and to have all questions answered. Patient is in agreement with the plan of care Homer Contreras NP Cosigned by Felisa Pascual DO at 05/22/2019 4:59 PM FIELD APPRAISER D APPRAISER D APPRAISER documented in this encounter Plan of Treatment Scheduled Referrals Name Type Priority Associated Diagnoses Order Schedule Ambulatory referral to ENT Outpatient Referral Routine Left ear pain Expected: 06/03/2019 (Approximate), Expires: 05/20/2020 documented as of this encounter Visit Diagnoses Diagnosis Left ear pain- Primary Unspecified otalgia Disorder of left eustachian tube Nasal turbinate hypertrophy Hypertrophy of nasal turbinates documented in this encounter Discontinued Medications Medication Sig Discontinue Reason Start Date End Da te ibuprofen (ADVIL,MOTRIN) 800 mg tablet Take 1 tablet (800 mg total) by mouth 3 (three) times a day Duplicate order 02/24/2019 05/20/2019 amLODIPine (NORVASC) 5 mg tablet Take 5 mg by mouth daily. Duplicate order 01/25/2018 05/20/2019 ALPRAZolam (XANAX) 0.25 mg tablet TAKE 1/2-1 TABLET BY MOUTH THREE TIMES A DAY Duplicate order 10/02/2017 05/20/2019 documented as of this encounter Historical Medications * This list may reflect changes made after this encounter. albuterol HFA (PROVENTIL HFA,VENTOLIN HFA,PROAIR HFA) 90 mcg/actuation inhalerIndicatio ns:Acute Asthma Attack Inhale 2 puffs every 6 (six) hours as needed 01/20/2019 cholecalciferol (VITAMIN D-3) 5,000 unit tabletIndication s:Vitamin D Deficiency Take 1 tablet (5,000 Units total) by mouth every morning metFORMIN XR (GLUCOPHAGE XR) 500 mg 24 hr tabletIndication s:Polycystic Ovarian Syndrome Take 500 mg by mouth daily with breakfast 04/20/2019 1 spironolactone (ALDACTONE) 50 mg tablet 05/13/2019 0 amLODIPine (NORVASC) 10 mg tablet 03/13/2019 0 latanoprost (XALATAN) 0.005 % ophthalmic solution latanoprost 0.005 % eye drops INSTILL 1 DROP INTO RIGHT EYE AT BEDTIME 03/05/2018 1 added in this encounter Care Teams Digital Color Press Operator Relationship Specialty Start Date End Date Martha Lawrence MD [address] [place] [address] PCP - General 02/24/19 Zoran Willams Family Medicine 05/18/18 documented as of this encounter
--- OUTSIDE RECORDS SUMMARY | 2024-05-13 22:24 | XMS_ITS | Encounter Summary ---
Author Organization [facility] Address [address] [place] [address] Care Team Providers Care Protozoologist Name Role Phone Zoran Willams Primary Care Provider Unavaila ble Reason for Visit * Diagnostic Imaging (Routine) - Closed Specialty Diagnoses / Procedures Referred By Joelle lopez Referred To Contact Diagnoses Right hip pain Procedures XR Hip Right 2 or 3 Views Celestina Rodriguez PA Phone: tel: fax: Referral ID Status Reason Start Date Expiration Date Visits Re quested Visits Authorized [id number] Closed 10/26/2017 05/07/2019 1 1 Encounter Details Date Type Department Care Team (Latest Contact Info) Description 10/26/2017 9:35 AM CDT - 10/26/2017 11:59 PM CDT Hospital Encounter [facility] Orthopedics and Sports Medicine [address] [address] Discharge Disposition: Discharge to home or self care Social History Tobacco Use Types Packs/Day Years Used Date Smoking Tobacco: Never Smokeless Tobacco: Never Alcohol Use Standard Drinks/Week Comments No 0 (1 standard drink = 0.6 oz pur e alcohol) Comments Unknown Sex and Gender Information Value Date Recorded Sex Assigned at Not on file Legal Sex Female 10:37 AM RECRUITING OPERATIONS CONSULTANT Gender Identity Not on file Sexual Orientation Not on file documented as of this encounter Medications at Time of Discharge ALPRAZolam (XANAX) 0.25 mg tablet TAKE 1/2-1 TABLET BY MOUTH THREE TIMES A DAY 0 10/02/2017 05/20/2019 venlafaxine (EFFEXOR) 75 mg tablet Take 75 mg by mouth daily. 0 09/02/2017 12/28/2019 documented as of this encounter Discharge Disposition Disposition Code Departure Means Destination Discharge to home or self care documented in this encounter Plan of Treatment Not on file documented as of this encounter Procedures Procedure Name Priority Date/Time Associated Diagnosis Comments XR HIP RIGHT 2 OR 3 VIEWS Schedule Routine, Read Routine (OP Routine) 10/26/2017 10:48 AM CDT Right hip pain documented in this encounter Results * XR Hip Right 2 or 3 Views (10/26/2017 10:48 AM CDT) Anatomical Region Laterality Modality Lower Extremities, Hip, Pelvis Right D igital Radiography Narrative 10/26/2017 12:26 PM CDT Radiographs taken of the right hip today reveal no evidence of fracture, dislocation, or other bony abnormality. Celestina CORTEZ IMG XR PROCEDURES Fin al Result documented in this encounter Visit Diagnoses Not on filedocumented in this encounter Care Teams Protozoologist Relationship Specialty Start Date End Date Zoran Willams PCP - General Family Medicine 10/26/17 05/17/18 documented as of this encounter
--- OUTSIDE RECORDS SUMMARY | 2024-05-13 22:24 | XMS_ITS | Encounter Summary ---
Author Organization [facility] Address [address] [place] [address] Care Team Providers Care Insurance Adjustor Name Role Phone Zoran Willams Unavailable Unavailable Zoran Willams Primary Care Provider Unavaila ble Reason for Visit * Diagnostic Imaging (Routine) - Closed Specialty Diagnoses / Procedures Referred By Joelle t Referred To Contact Procedures Breast Imaging Diagnostic Outside Reference Meggan Martinez MD [address] [place] [address] Phone: tel: fax: Referral ID Status Reason Start Date Expiration Date Visits Re quested Visits Authorized [id number] Closed 03/18/2021 04/17/2022 1 1 Encounter Details Date Type Department Care Team (Latest Contact Info) Description 01/20/2019 12:05 AM CDT - 01/20/2019 11:59 PM CDT Hospital Encounter [facility] [address] [place] [id number] Discharge Disposition: Discharge to home or self care Social History Tobacco Use Types Packs/Day Years Used Date Smoking Tobacco: Never Smokeless Tobacco: Never Alcohol Use Standard Drinks/Week Comments No 0 (1 standard drink = 0.6 oz pur e alcohol) Comments Unknown Sex and Gender Information Value Date Recorded Sex Assigned at Not on file Legal Sex Female 10:37 AM CARE ADVOCATE Gender Identity Not on file Sexual Orientation [...] mg by mouth daily. 0 01/25/2018 0 latanoprost (XALATAN) 0.005 % ophthalmic solution [...] Priority Date/Time Associated Diagnosis Comments BREAST IMAGING MG DIAGNOSTIC OUTSIDE REFERENCE Routine 01/20/2019 12:05 AM CDT documented in this encounter Results * Breast Imaging Diagnostic Outside Reference (01/20/2019 12:05 AM CDT) Impressions [facility] - 03/18/2021 8:37 AM CARE ADVOCATE These images are for Reference purposes only and have not been reviewed by [facility] Radiology. ??There will be no report generated by a [facility] Radiologist. Narrative [facility] - 03/18/2021 8:37 AM CARE ADVOCATE EXAMINATION: ??Images For Reference Purposes Only us Meggan Martinez MD IMG MAMMO PROCEDURES Fi nal Result [facility] documented in this encounter Visit Diagnoses Not on filedocumented in this encounter Care Teams Insurance Adjustor Relationship Specialty Start Date End Date Zoran Willams PCP - General 01/11/19 02/23/19 Zoran Willams Family Medicine 05/18/18 documented as of this encounter
--- OUTSIDE RECORDS SUMMARY | 2024-05-13 22:24 | XMS_ITS | Encounter Summary ---
Author Organization [facility] Healthcare Address [address] [place] [address] Care Team Providers Care Bridge Toll Collector Name Role Phone No, Physician Primary Care Provider [phone] Zoran Willams Unavailable Unavailable Encounter Details Date Type Department Care Team (Late st Contact Info) Description 07/16/2018 7:50 AM ORCHESTRA MUSICIAN Lab [address] [address] [place] [address] [place] [address] Discharge Disposition: Discharge to home or self care Social History Tobacco Use Types Packs/Day Years Used Date Smoking Tobacco: Never Smokeless Tobacco: Never Alcohol Use Standard Drinks/Week Comments No 0 (1 standard drink = 0.6 oz pur e alcohol) Comments Unknown Sex and Gender Information Value Date Recorded Sex Assigned at Not on file Legal Sex Female 10:37 AM ORCHESTRA MUSICIAN Gender Identity Not on file Sexual Orientation Not on file documented as of this encounter Discharge Disposition Disposition Code Departure Means Destination Discharge to home or self care documented in this encounter Plan of Treatment Not on file documented as of this encounter Procedures Procedure Name Priority Date/Time Associated Diagnosis Comments NIRU QUALITATIVE WITH REFLEX TO NIRU QUANTITATIVE Routine 07/16/2018 8:00 AM ORCHESTRA MUSICIAN BLOOD MISC TO VIDA Routine 07/16/2018 8: 00 AM ORCHESTRA MUSICIAN BLOOD MISC TO VIDA Routine 07/16/2018 8: 00 AM ORCHESTRA MUSICIAN EGFR Routine 07/16/2018 8:00 AM ORCHESTRA MUSICIAN C4 COMPLEMENT Routine 07/16/2018 8:00 AM ORCHESTRA MUSICIAN VITAMIN D 25 HYDROXY Routine 07/16/2018 8:00 AM ORCHESTRA MUSICIAN PROLACTIN Routine 07/16/2018 8:00 AM ORCHESTRA MUSICIAN INSULIN, TOTAL Routine 07/16/2018 8:00 AM ORCHESTRA MUSICIAN DHEA-SULFATE Routine 07/16/2018 8:00 AM ORCHESTRA MUSICIAN ACTH Routine 07/16/2018 8:00 AM ORCHESTRA MUSICIAN RHEUMATOID FACTOR Routine 07/16/2018 8:0 0 AM ORCHESTRA MUSICIAN TESTOSTERONE, TOTAL AND FREE, SERUM Routine 07/16/2018 8:00 AM ORCHESTRA MUSICIAN C3 COMPLEMENT Routine 07/16/2018 8:00 AM ORCHESTRA MUSICIAN T3, FREE Routine 07/16/2018 8:00 AM ORCHESTRA MUSICIAN TSH Routine 07/16/2018 8:00 AM ORCHESTRA MUSICIAN T4, FREE Routine 07/16/2018 8:00 AM ORCHESTRA MUSICIAN VITAMIN B12 Routine 07/16/2018 8:00 AM ORCHESTRA MUSICIAN COMPREHENSIVE METABOLIC PANEL Routine 07/16/2018 8:00 AM ORCHESTRA MUSICIAN documented in this encounter Results * Testosterone, Total and Free, Serum (07/16/2018 8:00 AM ORCHESTRA MUSICIAN) Testosterone 22 8 - 60 ng/dL [facility] (BOOKER) Comment: ADDITIONAL INFORMATION Testing performed by Liquid Chromatography-Tandem Mass Spectrometry (LC-MS/MS). This test was developed and its performance characteristics determined by [facility] in a manner consistent with CLIA requirements. This test has not been cleared or approved by the U.S. Food and Drug Administration. Test Performed by: [facility] Laboratories - [facility] [address] [facility], [place] [address] Testosterone, free 0.57 0.06 - 1.00 ng/dL LILIAN VALDES (BOOKER) Comment: ADDITIONAL INFORMATION Testing performed by [facility]. This test was developed and its performance characteristics determined by [facility] in a manner consistent with CLIA requirements. This test has not been cleared or approved by the U.S. Food and Drug Administration. Blood specimen (specimen) 07/16/2018 8:00 AM ORCHESTRA MUSICIAN 07/16/2018 8:14 AM ORCHESTRA MUSICIAN Narrative [facility] ([place]) - 07/20/2018 11:45 AM CDT fax [phone] Aylin Nguyen MD LAB BLOOD ORDERABLES [facility] Result [facility] (BOOKER) 1 [facility] Department of Laboratories [place], [place] [id number] * NIRU qualitative with reflex to NIRU Quantitative (07/16/2018 8:00 AM ORCHESTRA MUSICIAN) NIRU Negative Negative [facility] ([facility]) Comment: Interpretive Data Normal range for Niru Qualitative Antibody = Negative. 1. ??NIRU titers are performed on all positive qualitative results. 2. ??A significantly positive NIRU result is defined as a positive nuclear fluorescence at a titer of 1:80 or greater. 3. ??15% of normal people above age 65 have significantly positive NIRU results. ??5% or less of normal people age 65 or under have significantly positive NIRU results. Current interpretive data was last revised on 03. Testing performed by: , [address] [place] [address], [place]., [address] Blood specimen (specimen) 07/16/2018 8:00 AM ORCHESTRA MUSICIAN 07/16/2018 4:28 PM ORCHESTRA MUSICIAN Narrative [facility] ([place]) - 07/19/2018 1:06 PM CDT fax [phone] Aylin Nguyen MD LAB BLOOD ORDERABLES [facility] Result Performing Organization Address City/[facility]/ZIP Co de Phone Number [facility] VAL[facility] (BOOKER) 1 [facility] [place] [address] * (ABNORMAL) DHEA-sulfate (07/16/2018 8:00 AM ORCHESTRA MUSICIAN) DHEA-S 24.4(L) 60.9 - 337.0 mcg/dL [facility] ([facility]OOKER) Comment:Testing performed by : [facility], [address] [place] [address], [address] Blood specimen (specimen) 07/16/2018 8:00 AM ORCHESTRA MUSICIAN 07/16/2018 5:09 PM ORCHESTRA MUSICIAN Narrative [facility] ([facility]) - 07/18/2018 9:19 PM CDT fax [phone] Aylin Nguyen MD LAB BLOOD ORDERABLES [facility] Result Performing Organization Address [facility] Co de Phone Number [facility] (BOOKER) [address] [place] [address] of [place] [place] [address] * Insulin, total (07/16/2018 8:00 AM ORCHESTRA MUSICIAN) Insulin 23.4 2.6 - 25.0 mcIUnit/mL [facility] ([facility]) Comment:Testing performed by : [facility], [address] [place] [address], [place]., [address] Blood specimen (specimen) 07/16/2018 8:00 AM ORCHESTRA MUSICIAN 07/16/2018 5:09 PM ORCHESTRA MUSICIAN Narrative [facility] ([place]) - 07/18/2018 9:08 PM CDT fax [phone] Aylin Nguyen MD LAB BLOOD ORDERABLES [facility] Result [facility] ([place]) 1 [facility] [place] [address] * ACTH (07/16/2018 8:00 AM ORCHESTRA MUSICIAN) ACTH 20 pg/mL [facility] ([place]) Comment: REFERENCE VALUE 7.2-63 (a.m. collection) Test Performed by: [facility] [address] [place] [address] Blood specimen (specimen) 07/16/2018 8:00 AM ORCHESTRA MUSICIAN 07/16/2018 8:13 AM ORCHESTRA MUSICIAN Narrative [facility] ([place]) - 07/18/2018 12:41 PM CDT fax [phone] Aylin Nguyen MD LAB BLOOD ORDERABLES [facility] Result Performing Organization Address [facility] de Phone Number [facility] ([place]OOKER) [address] [place] [address] * Vitamin B12 (07/16/2018 8:00 AM ORCHESTRA MUSICIAN) Vitamin B12 684 230 - 1,250 pg/mL [facility] ([facility]OOKER) Comment:Testing performed by : , [address] [place] [address], [address] Blood specimen (specimen) 07/16/2018 8:00 AM ORCHESTRA MUSICIAN 07/16/2018 4:28 PM ORCHESTRA MUSICIAN Narrative [facility] ([place]) - 07/16/2018 7:52 PM ORCHESTRA MUSICIAN fax [phone] Aylin Nguyen MD LAB BLOOD ORDERABLES [facility] Result Performing Organization Address [facility] Co de Phone Number [facility] ([facility]) 1 [facility] [place] [address] * C4 complement (07/16/2018 8:00 AM ORCHESTRA MUSICIAN) Complement C4 32 10 - 40 mg/dL [facility] (BOOKER) Comment:Testing performed by : , [address] [place] [address], [address] Blood specimen (specimen) 07/16/2018 8:00 AM ORCHESTRA MUSICIAN 07/16/2018 4:28 PM ORCHESTRA MUSICIAN Narrative LILIAN [facility] (BOOKER) - 07/16/2018 7:52 PM ORCHESTRA MUSICIAN fax [phone] Aylin Nguyen MD LAB BLOOD ORDERABLES [facility] Result [facility] (BOOKER) 1 [facility] [place] [address] * C3 complement (07/16/2018 8:00 AM ORCHESTRA MUSICIAN) Pathologist [facility] Complement C3 172 90 - 180 mg/dL [facility] (BOOKER) Comment:Testing performed by : , [address] [place] [address], [address] Blood specimen (specimen) 07/16/2018 8:00 AM ORCHESTRA MUSICIAN 07/16/2018 4:28 PM ORCHESTRA MUSICIAN Narrative LILAIN [facility] (BOOKER) - 07/16/2018 7:52 PM ORCHESTRA MUSICIAN fax [phone] Aylin Nguyen MD LAB BLOOD ORDERABLES [facility] Result Performing Organization Address City/[facility]/ZIP Co de Phone Number [facility] (BOOKER) 1 [facility] [place] [address] * Rheumatoid factor (07/16/2018 8:00 AM ORCHESTRA MUSICIAN) Rheumatoid factor, quant <10 <=15 IUnits/mL [facility] (BOOKER) Comment:Testing performed by : , [address] [place] [address], [address] Blood specimen (specimen) 07/16/2018 8:00 AM ORCHESTRA MUSICIAN 07/16/2018 4:28 PM ORCHESTRA MUSICIAN Narrative [facility] ([facility]) - 07/16/2018 6:48 PM ORCHESTRA MUSICIAN fax [phone] Aylin Nguyen MD LAB BLOOD ORDERABLES [facility] Result [facility] ([facility]) 1 [facility] [place] [address] * Prolactin (07/16/2018 8:00 AM ORCHESTRA MUSICIAN) Prolactin 16.8 4.8 - 23.3 ng/mL [facility] ([facility]) Comment:Testing performed by : , [address] [place] [address], [address] Blood specimen (specimen) 07/16/2018 8:00 AM ORCHESTRA MUSICIAN 07/16/2018 4:28 PM ORCHESTRA MUSICIAN Narrative [facility] ([facility]) - 07/16/2018 5:41 PM ORCHESTRA MUSICIAN fax [phone] Aylin Nguyen MD LAB BLOOD ORDERABLES [facility] Result Performing Organization Address [facility] Co de Phone Number [facility] ([facility]) 1 [facility] [place] [address] * T3, free (07/16/2018 8:00 AM ORCHESTRA MUSICIAN) Free T3 2.7 2.0 - 4.4 pg/mL [facility] ([facility]ER) Comment:Testing performed by : , [address] [place] [address], [place]., [address] Blood specimen (specimen) 07/16/2018 8:00 AM ORCHESTRA MUSICIAN 07/16/2018 4:28 PM ORCHESTRA MUSICIAN Narrative [facility] ([facility]) - 07/16/2018 5:31 PM ORCHESTRA MUSICIAN Aylin Nguyen MD LAB BLOOD ORDERABLES [facility] Result [facility] ([facility]) 1 [facility] [place] [address] * BLOOD MISC TO VIDA (07/16/2018 8:00 AM ORCHESTRA MUSICIAN) Test name, chem TSI Thyroid-Sti mulating Immunoglob, S [facility] ([place]) Misc See Comment [facility]CO[facility] ([place]) Comment: Test ? Result ??Flag ??Unit ? RefValue Thyroid-Stimulating ?<1.0 ?TSI index ??<=1.3 ??Immunoglob, S ?Test Performed by: ?[facility] ?[address] [place] [address] Blood specimen (specimen) 07/16/2018 8:00 AM ORCHESTRA MUSICIAN 07/16/2018 1:42 PM ORCHESTRA MUSICIAN Narrative [facility] VALDES ([place]) - 07/19/2018 3:58 PM CDT TSI Thyroid-Stimulating Immunoglob, S us Aylin Nguyen MD LAB BLOOD ORDERABLES [facility] Result [facility] VALDES ([place]) 1 [facility] [place] [address] * BLOOD MISC TO VIDA (07/16/2018 8:00 AM ORCHESTRA MUSICIAN) Pathologist [facility] Test name, chem TPO Thyroperoxidase Ab, S [facility]IAN VALDES ([place]) Misc See Comment LILIAN WILCOX ([place]) Comment: Test ? Result ?Flag ??Unit ?? RefValue Thyroperoxidase Ab, S ?2.3 ? IU/mL ??<9.0 ?Test Performed by: ?[facility] ?[address] [place] [address] Blood specimen (specimen) 07/16/2018 8:00 AM ORCHESTRA MUSICIAN 07/16/2018 1:39 PM ORCHESTRA MUSICIAN Narrative [facility] VALDES (BOOKER) - 07/18/2018 1:20 PM CDT TPO Thyroperoxidase Ab, S Aylin Nguyen MD LAB BLOOD ORDERABLES [facility] Result Performing Organization Address [facility] de Phone Number LILIAN VALDES (BOOKER) [address] [place] [address] [place] [address] * (ABNORMAL) Vitamin D 25 hydroxy (07/16/2018 8:00 AM ORCHESTRA MUSICIAN) Vitamin D 25-OH 28(L) 30 - 80 ng/mL [facility] (BOOKER) Blood specimen (specimen) 07/16/2018 8:00 AM ORCHESTRA MUSICIAN 07/16/2018 8:14 AM ORCHESTRA MUSICIAN Narrative L[facility] VALDES (BOOKER) - 07/16/2018 10:21 AM ORCHESTRA MUSICIAN Aylin Nguyen MD LAB BLOOD ORDERABLES [facility] Result [facility] VAL[facility] (BOOKER) 1 [facility] [place] [address] * T4, free (07/16/2018 8:00 AM ORCHESTRA MUSICIAN) Free T4 1.20 0.90 - 1.70 ng/dL [facility] (BOOKER) Blood specimen (specimen) 07/16/2018 8:00 AM ORCHESTRA MUSICIAN 07/16/2018 8:14 AM ORCHESTRA MUSICIAN Narrative [facility] (BOOKER) - 07/16/2018 9:25 AM ORCHESTRA MUSICIAN fax [phone] us Aylin Nguyen MD LAB BLOOD ORDERABLES [facility] Result [facility] VALDES (BOOKER) 1 [facility] [place] [address] * eGFR (07/16/2018 8:00 AM ORCHESTRA MUSICIAN) [facility] eGFR 73 mL/min/1.7 3 m2 LILIAN VALDES (BOOKER) Comment: Interpretive Data Reference Interval Normal ?>/= 90 mL/min/1.73m2 Mildly decreased* ? 60 - 89 mL/min/1.73m2 Mildly to moderately decreased ?45 - 59 mL/min/1.73m2 Moderately to severely decreased ??30 - 44 mL/min/1.73m2 Severely decreased ?15 - 29 mL/min/1.73m2 Kidney Failure ?< 15 ??mL/min/1.73m2 *Relative to young adult level If -Martiniquais multiply value by 1.16. Estimated glomerular filtration [...] was last reviewed 2015. Blood specimen (specimen) 07/16/2018 8:00 AM ORCHESTRA MUSICIAN 07/16/2018 8:14 AM ORCHESTRA MUSICIAN Narrative LILIAN AVLDES (BOOKER) - 07/16/2018 9:00 AM ORCHESTRA MUSICIAN Aylin Nguyen MD LAB BLOOD ORDERABLES [facility] (BOOKER) 1 [facility] Department [place] [address] * Comprehensive metabolic panel (07/16/2018 8:00 AM ORCHESTRA MUSICIAN) Sodium 139 135 - 145 mmol/L [facility] ([facility]) Potassium, pl 3.8 3.3 - 4.9 mmol/L [facility] ([facility]) Chloride 102 97 - 110 mmol/L [facility] ([facility]) CO2 26 22 - 32 mmol/L [facility] ([facility]) Anion gap 11 2 - 15 mmol/L [facility] ([facility]) BUN 9 8 - 25 mg/dL [facility] ([facility]) Creatinine 0.99 0.60 - 1.10 mg/dL [facility] ([facility]) Glucose 96 70 - 199 mg/dL [facility] ([facility]ER) [...] interpretive data was last revised 2017. Calcium 8.9 8.5 - 10.3 mg/dL [facility] ([facility]) Bilirubin, total 0.6 0.1 - 1.2 mg/dL [facility] ([facility]) Protein, pl 7.6 6.5 - 8.5 g/dL [facility] ([facility]) Albumin 4.3 3.5 - 5.0 g/dL [facility] ([facility]) Alk phos 84 40 - 130 Units/L [facility] ([facility]) ALT 21 7 - 45 Units/L [facility] ([facility]) AST 26 10 - 45 Units/L [facility] ([facility]ER) Blood specimen (specimen) 07/16/2018 8:00 AM ORCHESTRA MUSICIAN 07/16/2018 8:14 AM ORCHESTRA MUSICIAN Narrative [facility] ([facility]) - 07/16/2018 9:00 AM ORCHESTRA MUSICIAN fax [phone] Aylin Nguyen MD LAB BLOOD ORDERABLES [facility] Result [facility] ([facility]) 1 [facility] [place] [address] * TSH (07/16/2018 8:00 AM ORCHESTRA MUSICIAN) Thyroid Stimulating Hormone 2.10 0.30 - 4.20 mcIUnit/mL [facility] ([facility]) Blood specimen (specimen) 07/16/2018 8:00 AM ORCHESTRA MUSICIAN 07/16/2018 8:14 AM ORCHESTRA MUSICIAN Narrative [facility] ([facility]) - 07/16/2018 9:00 AM ORCHESTRA MUSICIAN Aylin Nguyen MD LAB BLOOD ORDERABLES [facility] Result Performing Organization Address City/[facility]/ZIP Co de Phone Number [facility] ([facility]) 1 [facility] [place] [address] documented in this encounter Visit Diagnoses Not on filedocumented in this encounter Care Teams Bridge Toll Collector Relationship Specialty Start Date End Date No, Physician PCP - General 05/18/18 01/10/19 Zoran Willams Family Medicine 05/18/18 documented as of this encounter
--- OUTSIDE RECORDS SUMMARY | 2024-05-13 22:24 | XMS_ITS | Encounter Summary ---
Author Organization [facility] Healthcare Address [address] [place] [address] Care Team Providers Care Advanced Practice Rn Name Role Phone Dewayne Covarrubias MD Primary Care Provider [phone] Reason for Visit * Diagnostic Imaging (Routine) - Closed Specialty Diagnoses / Procedures Referred By Contac t Referred To Contact Procedures Breast Imaging Diagnostic Outside Reference Meggan Martinez MD [address] [place] [address] Phone: tel: fax: Referral ID Status Reason Start Date Expiration Date Visits Re quested Visits Authorized [id number] Closed 03/18/2021 04/17/2022 1 1 Encounter Details Date Type Department Care Team (Latest Contact Info) Description 06/24/2017 - 06/24/2017 11:59 PM LUGGER Hospital Encounter [facility] [address] [place] [phone] Discharge Disposition: Discharge to home or self care Social History Tobacco Use Types Packs/Day Years Used Date Smoking Tobacco: Never Alcohol Use Standard Drinks/Week Comments No 0 (1 standard drink = 0.6 oz pur e alcohol) Comments Unknown Sex and Gender Information Value Date Recorded Sex Assigned at Not on file Legal Sex Female 10:37 AM LUGGER Gender Identity Not on file Sexual Orientation Not on file documented as of this encounter Discharge Disposition Disposition Code Departure Means Destination Discharge to home or self care documented in this encounter Plan of Treatment Not on file documented as of this encounter Procedures Procedure Name Priority Date/Time Associated Diagnosis Comments BREAST IMAGING MG DIAGNOSTIC OUTSIDE REFERENCE Routine 06/24/2017 12:00 AM LUGGER documented in this encounter Results * Breast Imaging Diagnostic Outside Reference (06/24/2017 12:00 AM LUGGER) Impressions [id number] - 03/18/2021 8:36 AM LUGGER These images are for Reference purposes only and have not been reviewed by [facility] Radiology. ??There will be no report generated by a [facility] Radiologist. Narrative [facility]_MAMMO[facility] - 03/18/2021 8:36 AM LUGGER EXAMINATION: ??Images For Reference Purposes Only us Meggan Martinez MD IMG MAMMO PROCEDURES Fi nal Result [email or web address] documented in this encounter Visit Diagnoses Not on filedocumented in this encounter Care Teams Advanced Practice Rn Relationship Specialty Start Date End Date Dewayne Covarrubias MD PCP - General 06/12/10 10/11/17 documented as of this encounter
--- OUTSIDE RECORDS SUMMARY | 2024-05-13 22:24 | XMS_ITS | Encounter Summary ---
Author Organization [facility] Facility Care Team Providers Care Tube Coverer Name Role Phone Zoran Willams Unavailable Unavailable Martha Lawrence MD Primary Care Provider [phone] Encounter Details Date Type Department Care Team (Latest Contact Info) Description 05/20/2019 Travel Social History Tobacco Use Types Packs/Day Years Used Date Smoking Tobacco: Never Smokeless Tobacco: Never Alcohol Use Standard Drinks/Week Comments No 0 (1 standard drink = 0.6 oz pur e alcohol) Comments No Sex and Gender Information Value Date Recorded Sex Assigned at Not on file Legal Sex Female 10:37 AM BROOD STATION MANAGER Gender Identity Not on file Sexual Orientation Not on file documented as of this encounter Plan of Treatment Not on file documented as of this encounter Visit Diagnoses Not on filedocumented in this encounter Care Teams Tube Coverer Relationship Specialty Start Date End Date Martha Lawrence MD [address] [employer] [place] [address] PCP - General 02/24/19 Zoran Willams Family Medicine 05/18/18 documented as of this encounter
--- OUTSIDE RECORDS SUMMARY | 2024-05-13 22:24 | XMS_ITS | Encounter Summary ---
Author Organization [facility] Address [address] [place] [address] Care Team Providers Care Behavioral Health Specialist Name Role Phone Zoran Willams Primary Care Provider Unavaila ble Reason for Referral * Injectables (Routine) - Closed Specialty Diagnoses / Procedures Referred By Contac t Referred To Contact Diagnoses Trochanteric bursitis, right hip Procedures Greater trochanteric bursa injection Celestina Combs PA Phone: tel: fax: Referral ID Status Reason Start Date Expiration Date Visits Re quested Visits Authorized [id number] Closed 10/26/2017 05/07/2019 1 1 * Diagnostic Imaging (Routine) - Closed Specialty Diagnoses / Procedures Referred By Contac t Referred To Contact Diagnoses Right hip pain Procedures XR Hip Right 2 or 3 Views Celestina Combs PA Phone: tel: fax: Referral ID Status Reason Start Date Expiration Date Visits Re quested Visits Authorized [id number] Closed 10/26/2017 05/07/2019 1 1 Reason for Visit * Reason Comments Pain Encounter Details Date Type Department Care Team (Late st Contact Info) Description 10/26/2017 10:30 AM CDT Office Visit [facility] Orthopedics and Sports Medicine [address] [place] [address] [address] [address] Celestina Combs PA [address] [place] [address] [address] [place] [address] Right hip pain (Primary Dx); Trochanteric bursitis, right hip Social History Tobacco Use Types Packs/Day Years Used Date Smoking Tobacco: Never Smokeless Tobacco: Never Alcohol Use Standard Drinks/Week Comments No 0 (1 standard drink = 0.6 oz pur e alcohol) Comments Unknown Sex and Gender Information Value Date Recorded Sex Assigned at Not on file 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 Gender Identity Not on file Sexual Orientation Not on file documented as of this encounter Last Filed Vital Signs Vital Sign Reading Time Taken Comments Blood Pressure 141/91 10/26/2017 10:58 AM CDT Pulse 71 10/26/2017 10:58 AM CDT Temperature - - Respiratory Rate - - Oxygen Saturation - - Inhaled Oxygen Concentration - - Weight 119.3 kg (263 lb) 10/26/2017 10:58 AM CDT Height 167.6 cm (5' 6 ) 10/26/2017 10:58 AM CDT Body Mass Index 42.45 10/26/2017 10:58 AM CDT documented in this encounter Progress Notes * Celestina Combs PA - 10/26/2017 10:30 AM CDTAssociated Order(s): GREATER TROCHANTERIC BURSA INJECTION Post-Procedure Diagnose(s): Trochanteric bursitis, right hip Images from the original note were not included. NEW PATIENT VISIT Subjective CHIEF COMPLAINT She had concerns including Pain of the Right Hip. HISTORY OF PRESENT ILLNESS Ms. Jewell is a pleasant 37-year-old female who presents to clinic with a complaint of right hip pain. The pain began approximately 4 months ago with no precipitating factor. She localizes the pain tothe lateral aspect of her hip, rating at a 7/10. She states the pain is worse with lying on her side, palpation, and with standing after sitting for prolonged periods of time. She has attempted ice, heat, anti-inflammatories, massage, icy hot, and stretches all to no avail. She denies any other complaints at this time. Pain Assessment Pain Assessment: 0-10 Pain Score: 7 PAST MEDCIAL HISTORY She has a past medical history of Depression; Glaucoma; OTHER MEDICAL; OTHER MEDICAL; OTHER MEDICAL; OTHER MEDICAL; OTHER MEDICAL; OTHER MEDICAL; OTHER MEDICAL; OTHER MEDICAL; OTHER MEDICAL; OTHER MEDICAL; OTHER MEDICAL; OTHER MEDICAL; OTHER MEDICAL; and Hypertension. PAST SURGICAL HISTORY She has a past surgical history that includes Cholecystectomy (2008); Other surgical history; Othersurgical history; Other surgical history; Other surgical history; Other surgical history; Other surgical history; Other surgical history (2011); Other surgical history; Other surgical history; Other surgical history (1982); Tympanostomy Tube Placement (1992); Other surgical history (2011); Other surgical history (2011); and Cataract Extraction (Bilateral, 1981). MEDICATIONS She has a current medication list which includes the following prescription(s): alprazolam and venlafaxine. ALLERGIES She is allergic to sulfasalazine; sulfa (sulfonamide antibiotics); sulfanilamide; oxycodone-acetaminophen; and penicillins. SOCIAL HISTORY She reports that she has never smoked. She has never used smokeless tobacco. She reports that she does not drink alcohol or use drugs. FAMILY HISTORY Her family history includes Alcohol abuse in an other family member; COPD in an other family member; Diabetes in an other family member; Heart disease in an other family member; Hypertension in an other family member; Kidney disease in an other family member; Mental illness in an other family member; Osteoarthritis in an other family member; Stroke in an other family member. REVIEW OF SYSTEMS Review of Systems Constitutional: Negative for activity change, appetite change, chills and fever. HENT: Negative for congestion, dental problem, ear pain, hearing loss and voice change. Eyes: Negative for pain and visual disturbance. Respiratory: Negative for apnea, cough, chest tightness and shortness of breath. Cardiovascular: Negative for chest pain, palpitations and leg swelling. Gastrointestinal: Negative for blood in stool, constipation, diarrhea, nausea and vomiting. Endocrine: Negative for cold intolerance and heat intolerance. Genitourinary: Negative for difficulty urinating and hematuria. Skin: Negative for color change, rash and wound. Allergic/Immunologic: Negative for environmental allergies. Neurological: Negative for dizziness, syncope, numbness and headaches. Hematological: Negative for adenopathy. Does not bruise/bleed easily. Psychiatric/Behavioral: Negative for confusion. The patient is not nervous/anxious and is not hyperactive. Objective PHYSICAL EXAM BP 141/91 Pulse 71 Ht 167.6 cm (5' 6 ) Wt 119.3 kg (263 lb) BMI 42.45 kg/m?? Spine Right strength The patient has pain with strength testing the right hip abductior. Right hip Inspection Erythema: absent Edema: absent Swelling: absent Effusion: absent Skin temperature: normal Surgical scar/wound: absent. Gait: antalgic Limp: slight Supportive device: none Limb length: equal. Palpation Tenderness: present. The tenderness is located in the greater trochanter. Radiating pain: no. Pop or click: no. Pelvic stability AP stress: stable Pelvic stability lateral stress: stable Range of motion The patient has normal range of motion of the right hip. The patient has pain with range of motion of the right hip. Stability The patient has normal stabiltiy of the right hip. Strength The patient has 5/5 strenght throughout with exceptions as noted below. Hip abduction: 3/5. Pain with hip abduction: yes Neurovascular The patient has normal vascular on the right side of their body. The patient has normal sensation. Tests Anterior impingement: negative Posterior impingement: negative Lateral impingement: negative Anterior apprehension: negative CHARANJIT: negative Resisted SLR (straight leg raise): negative REVIEW OF X-RAYS/STUDIES/LABS Assessment/Plan Micole was seen today for pain. Diagnoses and all orders for this visit: Right hip pain - XR Hip Right 2 or 3 Views Trochanteric bursitis, right hip Greater trochanteric bursa injection Date/Time: 10/26/2017 12:24 PM Performed by: CELESTINA COMBS Authorized by: CELESTINA COMBS Greater Trochanteric Bursa Injection: Consent Given by: Patient Site marked: the procedure site was marked Timeout: prior to procedure the correct patient, procedure, and site was verified Verbal consent obtained?: Yes Prior to the start of the procedure, verbal verification by the procedure participant(s) confirmed (as applicable): correct patient identity; correct site/side marked and visible; agreement on the procedure to be done; correct patient positioning; an accurate procedure consent form, relevant imagesand results correctly labeled and displayed; any safety precautions based on clinical history and/or medication use have been addressed.: Supporting Documentation: Indications: Pain and therapeutic Procedure Details: Site: Right Greater Trochanteric Bursa Prep: patient was prepped and draped in usual sterile fashion Patient position: Sidelying Needle Size: 22 G Ultrasound guidance: No Approach: Lateral Medications: 3 mL bupivacaine 0.25 % (2.5 mg/mL); 3 mL lidocaine 20 mg/mL (2 %); 80 mg methylPREDNISolone acetate 80 mg/mL Patient tolerance: Patient tolerated the procedure well with no immediate complications PLAN I explained to Ms. Jewell the nature of her condition and treatment options today. I provided her with a steroid injection into her right trochanteric bursa under sterile conditions, which she tolerated well. We also discussed formal physical therapy, which she prefers to hold off on as she does notcurrently drive. I, therefore, provided her with an AAOS handout on stretches for hip bursitis for her to perform at home. She is to continue with her other conservative modalities in addition to activity modification. She will return to clinic on an as-needed basis shall her symptoms persist or worsen and may contact our office with any further questions or concerns. DANA Zelaya Cosigned by Kennedy Kerns MD at 10/26/2017 9:06 PM CDT documented in this encounter Plan of Treatment Not on file documented as of this encounter Procedures Procedure Name Priority Date/Time Associated Diagnosis Comments XR HIP RIGHT 2 OR 3 VIEWS Schedule Routine, Read Routine (OP Routine) 10/26/2017 10:48 AM CDT Right hip pain CA ARTHROCENTESIS ASPIR&/INJ MAJOR JT/BURSA W/O US Routine 10/26/2017 10:30 AM CDT Trochanteric bursitis, right hip documented in this encounter Results * XR Hip Right 2 or 3 Views (10/26/2017 10:48 AM CDT) Anatomical Region Laterality Modality Lower Extremities, Hip, Pelvis Right D igital Radiography Narrative 10/26/2017 12:26 PM CDT Radiographs taken of the right hip today reveal no evidence of fracture, dislocation, or other bony abnormality. Celestina CORTEZ IMG XR PROCEDURES Fin al Result * CA ARTHROCENTESIS ASPIR&/INJ MAJOR JT/BURSA W/O US (10/26/2017 10:30 AM CDT) Kennedy Loera MD - 10/26/2017 10:30 AM CDT DANA Zelaya ? 10/26/2017 12:26 PM Greater trochanteric bursa injection Date/Time: 10/26/2017 12:24 PM Performed by: CELESTINA COMBS Authorized by: CELESTINA COMBS Greater Trochanteric Bursa Injection: ??Consent Given by: ??Patient ??Site marked: the procedure site was marked ?Timeout: prior to procedure the correct patient, procedure, and site was verified ?? Verbal consent obtained?: Yes ?? Prior to the start of the procedure, verbal verification by the procedure participant(s) confirmed (as applicable): correct patient identity; correct site/side marked and visible; agreement on the procedure to be done; correct patient positioning; an accurate procedure consent form, relevant images and results correctly labeled and displayed; any safety precautions based on clinical history and/or medication use have been addressed.: Supporting Documentation: ??Indications: ??Pain and therapeutic Procedure Details: ??Site: ??Right Greater Trochanteric Bursa ??Prep: patient was prepped and draped in usual sterile fashion ?Patient position: ??Sidelying ??Needle Size: ??22 G ??Ultrasound guidance: No ?Approach: ??Lateral ??Medications: ??3 mL bupivacaine 0.25 % (2.5 mg/mL); 3 mL lidocaine 20 mg/mL (2 %); 80 mg methylPREDNISolone acetate 80 mg/mL ??Patient tolerance: ??Patient tolerated the procedure well with no immediate complications Celestina CORTEZ IN CLINIC/BEDSIDE ORD ERABLES Final Result documented in this encounter Visit Diagnoses Diagnosis Right hip pain- Primary Pain in joint, pelvic region and thigh Trochanteric bursitis, right hip documented in this encounter Administered Medications Inactive Administered Medications - up to 3 most recent administrations Medication Order MAR Action Action Date Dose Rate Site bupivacaine (MARCAINE) 0.25 % (2.5 mg/mL) injection 3 mL 3 mL, other, One-Time Injection, Starting on Wed10/26/17 at 1224, For 1 doseIndications:Trochanteric bursitis, right hip Given 10/26/2017 12:24 PM CDT 3 mL lidocaine (XYLOCAINE) 20 mg/mL (2 %) injection 3 mL 3 mL, One-Time Injection, Starting on Wed10/26/17 at 1224, For 1 dose, Indications: Administration of Local AnesthesiaIndications:Administrati on of Local Anesthesia Given 10/26/2017 12:24 PM CDT 3 mL methylPREDNISolone acetate (DEPO-medrol) injection 80 mg 80 mg, intra-articular, One-Time Injection, Starting on Wed10/26/17 at 1224, For 1 doseIndications:Trochanteric bursitis, right hip Given 10/26/2017 12:24 PM CDT 80 mg documented in this encounter Historical Medications * This list may reflect changes made after this encounter. venlafaxine (EFFEXOR) 75 mg tablet Take 75 mg by mouth daily. 0 09/02/2017 12/28/2019 ALPRAZolam (XANAX) 0.25 mg tablet TAKE 1/2-1 TABLET BY MOUTH THREE TIMES A DAY 0 10/02/2017 05/20/2019 added in this encounter Care Teams Behavioral Health Specialist Relationship Specialty Start Date End Date Zoran Willams PCP - General Family Medicine 10/26/17 05/17/18 documented as of this encounter
--- OUTSIDE RECORDS SUMMARY | 2024-05-13 22:24 | XMS_ITS | Encounter Summary ---
Author Organization [facility]/Health system Facility Care Team Providers Care Proprietary Trader Name Role Phone Zoran Willams Unavailable Unavailable Martha Lawrence MD Primary Care Provider [phone] Encounter Details Date Type Department Care Team (Latest Contact Info) Description 05/26/2019 Travel Social History Tobacco Use Types Packs/Day Years Used Date Smoking Tobacco: Never Smokeless Tobacco: Never Alcohol Use Standard Drinks/Week Comments No 0 (1 standard drink = 0.6 oz pur e alcohol) Comments No Sex and Gender Information Value Date Recorded Sex Assigned at Not on file 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
--- OUTSIDE RECORDS SUMMARY | 2024-05-13 22:24 | XMS_ITS | Encounter Summary ---
Author Organization [facility] Address [address] [place] [address] Care Team Providers Care Wrecking Crane Engine Operator Name Role Phone Zoran Willams Unavailable Unavailable Martha Lawrence MD Primary Care Provider [phone] Encounter Details Date Type Department Care Team (Latest Contact Info) Description 12/11/2019 11:33 AM CDT - 12/11/2019 12:24 PM CDT Hospital Encounter [facility] [address] [place] [id number] Discharge Disposition: Discharge to home or self care Social History Tobacco Use Types Packs/Day Years Used Date Smoking Tobacco: Never Smokeless Tobacco: Never Alcohol Use Standard Drinks/Week Comments No 0 (1 standard drink = 0.6 oz pur e alcohol) Comments No Sex and Gender Information Value Date Recorded Sex Assigned at Not on file 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 ??There will be no report generated by a [facility] Radiologist. Narrative [facility] - 12/11/2019 11:33 AM CDT EXAMINATION: ??Images For Reference Purposes Only us Meggan Martinez MD IMG MAMMO PROCEDURES nal Result [facility] documented in this encounter Visit Diagnoses Not on filedocumented in this encounter Care Teams Wrecking Crane Engine Operator Relationship Specialty Start Date End Date Martha Lawrence [place] [address] PCP - General 02/24/19 Zoran Willams Family Medicine 05/18/18 documented as of this encounter
--- OUTSIDE RECORDS SUMMARY | 2024-05-13 22:24 | XMS_ITS | Encounter Summary ---
Author Organization [facility] Address [address] [place] [address] Care Team Providers Care Electrical Troubleshooter Name Role Phone Zoran Willams Unavailable Unavailable Zoran Willams Primary Care Provider Unavaila ble Reason for Visit * Diagnostic Imaging (Routine) - Closed Specialty Diagnoses / Procedures Referred By Joelle t Referred To Contact Diagnoses Nipple discharge in female Procedures Breast Imaging US Outside Reference Meggan Martinez MD [address] [place] [address] Phone: tel: fax: Referral ID Status Reason Start Date Expiration Date Visits Re quested Visits Authorized [id number] Closed 03/18/2021 04/17/2022 1 1 Encounter Details Date Type Department Care Team (Latest Contact Info) Description 01/20/2019 - 01/20/2019 12:04 AM CDT Hospital Encounter 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 ??There will be no report generated by a [facility] Radiologist. Narrative [facility] - 03/18/2021 8:36 AM CONTROL SYSTEMS DEVELOPER EXAMINATION: ??Images For Reference Purposes Only us Meggan Martinez MD IMG MAMMO PROCEDURES Fi nal Result [facility] documented in this encounter Visit Diagnoses Not on filedocumented in this encounter Care Teams Electrical Troubleshooter Relationship Specialty Start Date End Date Zoran Willams PCP - General 01/11/19 02/23/19 Zoran Willams Family Medicine 05/18/18 documented as of this encounter
--- OUTSIDE RECORDS SUMMARY | 2024-05-13 22:24 | XMS_ITS | Encounter Summary ---
Author Organization [facility] Healthcare Address [address] [place] [address] Care Team Providers Care Catalogue Maker Name Role Phone Zoran Willams Unavailable Unavailable Zoran Willams Primary Care Provider Unavaila ble Encounter Details Date Type Department Care Team (Late st Contact Info) Description 01/11/2019 4:35 PM CDT Lab [address] [address] Martha Lawrence MD Refinder by [employer] [facility] [id number] Discharge Disposition: Discharge to home or self care Social History Tobacco Use Types Packs/Day Years Used Date Smoking Tobacco: Never Smokeless Tobacco: Never Alcohol Use Standard Drinks/Week Comments No 0 (1 standard drink = 0.6 oz pur e alcohol) Comments Unknown Sex and Gender Information Value Date Recorded Sex Assigned at Not on file 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 Gender Identity Not on file Sexual Orientation Not on file documented as of this encounter Discharge Disposition Disposition Code Departure Means Destination Discharge to home or self care documented in this encounter Plan of Treatment Not on file documented as of this encounter Procedures Procedure Name Priority Date/Time Associated Diagnosis Comments EGFR Routine 01/11/2019 4:30 PM CDT BASIC METABOLIC PANEL Routine 01/11/2019 4:30 PM CDT documented in this encounter Results * eGFR (01/11/2019 4:30 PM CDT) eGFR 80 mL/min/1.7 3 m2 [facility] Comment: Interpretive Data Reference Interval Normal ?>/= 90 mL/min/1.73m2 Mildly decreased* ? 60 - 89 mL/min/1.73m2 Mildly to moderately decreased ?45 - 59 mL/min/1.73m2 Moderately to severely decreased ??30 - 44 mL/min/1.73m2 Severely decreased ?15 - 29 mL/min/1.73m2 Kidney Failure ?< 15 ??mL/min/1.73m2 *Relative to young adult level If -Portuguese multiply value by 1.16. Estimated glomerular filtration [...] was last reviewed 2015. Blood specimen (specimen) 01/11/2019 4:30 PM CDT 01/11/2019 4:52 PM CDT us Martha Lawrence MD LAB BLOOD ORDERABLES Final Result [facility] [address] [place] [address] * (ABNORMAL) Basic metabolic panel (01/11/2019 4:30 PM CDT) Sodium 135 135 - 145 mmol/L [facility] Potassium, pl 3.3 3.3 - 4.9 mmol/L [facility] Chloride 96(L) 97 - 110 mmol/L [facility] CO2 28 22 - 32 mmol/L [facility] Anion gap 11 2 - 15 mmol/L [facility] BUN 8 8 - 25 mg/dL [facility] Creatinine 0.92 0.60 - 1.10 mg/dL [facility] Glucose 95 70 - 199 mg/dL [facility] [...] interpretive data was last revised 2017. Calcium 9.3 8.5 - 10.3 mg/dL [facility] Blood specimen (specimen) 01/11/2019 4:30 PM CDT 01/11/2019 4:52 PM CDT us Martha Lawrence MD LAB BLOOD ORDERABLES Final Result [facility] [address] [place], [place] [id number] documented in this encounter Visit Diagnoses Not on filedocumented in this encounter Care Teams Catalogue Maker Relationship Specialty Start Date End Date Zoran Willams PCP - General 01/11/19 02/23/19 Zoran Willams Family Medicine 05/18/18 documented as of this encounter
--- OUTSIDE RECORDS SUMMARY | 2024-05-13 22:25 | XMS_ITS | Encounter Summary ---
Author Organization [facility] Care Team Providers Care Construction Job Titles Name Role Phone Dewayne Covarrubias MD Primary Care Provider [phone] Encounter Details Date Type Department Care Team (Late st Contact Info) Description 02/04/2012 11:58 AM CDT - 02/04/2012 4:00 PM T Hospital Encounter [facility] Shadi, Fidel Jenkins MD [address] [facility] [place] [address] Pre-operative examination Social History Tobacco Use Types Packs/Day Years Used Date Smoking Tobacco: Never Alcohol Use Standard Drinks/Week Comments No 0 (1 standard drink = 0.6 oz pur e alcohol) Comments Unknown Sex and Gender Information Value Date Recorded Sex Assigned at Not on file 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
--- OUTSIDE RECORDS SUMMARY | 2024-05-13 22:25 | XMS_ITS | Encounter Summary ---
Author Organization [facility] Healthcare Address [address] [place] [address] Care Team Providers Care Registered Physical Therapist Name Role Phone Unavailable Primary Care Provider Unavailabl e Encounter Details Date Type Department Care Team (Late st Contact Info) Description 06/01/2008 10:26 AM STUDIO OPERATIONS ENGINEER IN CHARGE - 06/01/2008 11:59 PM STUDIO OPERATIONS ENGINEER IN CHARGE Hospital Encounter [facility] Social History Tobacco Use Types Packs/Day Years Used Date Smoking Tobacco: Never Assessed Comments Unknown Sex and Gender Information Value Date Recorded Sex Assigned at Not on file Legal Sex Female 10:37 AM STUDIO OPERATIONS ENGINEER IN CHARGE Gender Identity Not on file Sexual Orientation Not on file documented as of this encounter Plan of Treatment Not on file documented as of this encounter Visit Diagnoses Not on filedocumented in this encounter
--- OUTSIDE RECORDS SUMMARY | 2024-05-13 22:25 | XMS_ITS | Encounter Summary ---
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
--- OUTSIDE RECORDS SUMMARY | 2024-05-13 22:25 | XMS_ITS | Encounter Summary ---
Author Organization [facility] Healthcare Address [address] [place] [address] Care Team Providers Care Fuse Cup Expander Name Role Phone Dewayne Covarrubias MD Primary Care Provider [phone] Encounter Details Date Type Department Care Team (Late st Contact Info) Description 02/14/2009 12:05 AM CDT - 02/14/2009 1:50 AM CDT Hospital Encounter [facility] Audie Michaud MD [address] [place] [id number] Dewayne Covarrubias MD [address] [address] Cholecystitis; Other abnormality of red blood cells; Glaucoma; Essential hypertension Social History Tobacco Use Types Packs/Day Years Used Date Smoking Tobacco: Never Assessed Comments Unknown Sex and Gender Information Value Date Recorded Sex Assigned at Not on file 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
--- OUTSIDE RECORDS SUMMARY | 2024-05-13 22:25 | XMS_ITS | Encounter Summary ---
Author Organization [facility] Healthcare Address [address] [place] [address] Care Team Providers Care Fructose Loader Name Role Phone Dewayne Covarrubias MD Primary Care Provider [phone] Encounter Details Date Type Department Care Team (Late st Contact Info) Description 10/08/2010 11:50 AM CDT - 10/08/2010 11:59 PM CDT Hospital Encounter [facility] Social History Tobacco Use Types Packs/Day Years Used Date Smoking Tobacco: Never Alcohol Use Standard Drinks/Week Comments No 0 (1 standard drink = 0.6 oz pur e alcohol) Comments Unknown Sex and Gender Information Value Date Recorded Sex Assigned at Not on file 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
--- OUTSIDE RECORDS SUMMARY | 2024-05-13 22:25 | XMS_ITS | Encounter Summary ---
Author Organization [facility] Address [address] [place] [address] Care Team Providers Care Vat Tender Name Role Phone Dewayne Covarrubias MD Primary Care Provider [phone] Encounter Details Date Type Department Care Team (Late st Contact Info) Description 06/24/2010 12:01 AM SHIPWRIGHT SUPERVISOR - 06/24/2010 11:59 PM SHIPWRIGHT SUPERVISOR Hospital Encounter [facility] Mike Fry Hemorrhage of rectum and anus; Internal hemorrhoids Social History Tobacco Use Types Packs/Day Years Used Date Smoking Tobacco: Never Alcohol Use Standard Drinks/Week Comments No 0 (1 standard drink = 0.6 oz pur e alcohol) Comments Unknown Sex and Gender Information Value Date Recorded Sex Assigned at Not on file Legal 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 Account: [id number] Room No: : 1980 Patient Type: OPA Attend.: Mike Rosario M.D. Admit Date: 06/24/2010 Dict.: Mike Rosario M.D. Disch. Date: NAME OF PROCEDURE: Colonoscopy. SEEN ON: 06/24/2010. REFERRED BY: Dr. Covarrubias. PREVIOUS PROCEDURE: None. X-RAYS: None. HISTORY AND PHYSICAL EXAMINATION: The patient is a 30-year old black female with a history of bright red blood per rectum. We have been asked to see her now for endoscopic evaluation of the same. Please note she has had intermittent rectal bleeding for several years, however, recently has become somewhat more significant. Physical examination is that of a well developed, well nourished, black female in no acute distress. She is nonicteric. Her lungs were clear. Heart was regular without current jugular venous distention or pedal edema. GI was soft and supple. Extremities showed no calf pain, cords or edema. PRE-PROCEDURE DIAGNOSIS: Rectal bleeding in a 30-year-old black female. PHYSICIAN: Marlene. INSTRUMENT USED: [employer] video endoscope. MEDICATIONS: Per Anesthesia. FINDINGS: The colonoscope was introduced into the rectum left lateral position, passed to the cecum. The patient tolerated the procedure well. There were no complications. At the level of the ileocecal valve the terminal ileum was briefly entered and appeared normal. The endoscope was subsequently pulled back into the colon. The colon itself was normal with normal vascular pattern. No polyps or masses were noted in the cecum, right, transverse, left, rectosigmoid or rectum. Retroflexed view of the internal anal area showed small to moderate internal hemorrhoidal tissue. Perianal examination showed no perianal disease, no rectal masses. No anal fissures. COMPLICATIONS: None. POST PROCEDURE DIAGNOSES: 1. Bright red blood per rectum consistent with perianal bleeding. 2. Otherwise normal colonoscopy to and including views of the terminal ileum. 3. No polyps, no mass lesions. 4. Withdrawal time six minutes and two seconds. POSTPROCEDURE ORDERS: 1. Postsedation instructions. 2. High fiber diet. 3. [place] [employer] screening recommendations for colorectal disease. 4. Follow up with Dr. Covarrubias. 5. Follow up in my office will otherwise be on an as needed basis. Mike Rosario M.D. CHEMO/ruma TD: 06/25/2010 12:28 CC: Dewayne Covarrubias M.D. PROCEDURE REPORT Authenticated by Mike Rosario MD On 07/06/2010 02:37:31 PM documented in this encounter Plan of Treatment Not on file documented as of this encounter Procedures Procedure Name Priority Date/Time Associated Diagnosis Comments COLONOSCOPY 06/24/2010 12:00 AM SHIPWRIGHT SUPERVISOR documented in this encounter Results * COLONOSCOPY (06/24/2010 12:00 AM SHIPWRIGHT SUPERVISOR) Anatomical Region Laterality Modality Other Narrative 06/24/2010 12:00 AM SHIPWRIGHT SUPERVISOR Ordered by an unspecified provider. Procedure Note Provider, MD Babita - 06/24/2010 12:00 AM CST PROCEDURE REPORT Patient: CESARIO JEWELL V. Account: [id number] Room No: : 1980 Patient Type: OPA Attend.: Mike Rosario M.D. Admit Date: 06/24/2010 Dict.: Mike Rosario M.D. Disch. Date: NAME OF PROCEDURE: Colonoscopy. SEEN ON: 06/24/2010. REFERRED BY: Dr. Covarrubias. PREVIOUS PROCEDURE: None. X-RAYS: None. HISTORY AND PHYSICAL EXAMINATION: The patient is a 30-year old blackfemale with a history of bright red blood per rectum. We have been asked to seeher now for endoscopic evaluation of the same. Please note she has had intermittent rectal bleeding for several years, however, recently hasbecome somewhat more significant. Physical examination is that of a welldeveloped, well nourished, black female in no acute distress. She is nonicteric.Her lungs were clear. Heart was regular without current jugular venous distention or pedal edema. GI was soft and supple. Extremities showedno calf pain, cords or edema. PRE-PROCEDURE DIAGNOSIS: Rectal bleeding in a 30-year-old black female. PHYSICIAN: Marlene. INSTRUMENT USED: [employer] video endoscope. MEDICATIONS: Per Anesthesia. FINDINGS: The colonoscope was introduced into the rectum left lateral position, passed to the cecum. The patient tolerated the procedurewell. There were no complications. At the level of the ileocecal valve the terminal ileum was briefly entered and appeared normal. The endoscopewas subsequently pulled back into the colon. The colon itself was normalwith normal vascular pattern. No polyps or masses were noted in the cecum,right, transverse, left, rectosigmoid or rectum. Retroflexed view of theinternal anal area showed small to moderate internal hemorrhoidal tissue.Perianal examination showed no perianal disease, no rectal masses. No analfissures. COMPLICATIONS: None. POST PROCEDURE DIAGNOSES: 1. Bright red blood per rectum consistent with perianalbleeding. 2. Otherwise normal colonoscopy to and including views of the terminal ileum. 3. No polyps, no mass lesions. 4. Withdrawal time six minutes and two seconds. POSTPROCEDURE ORDERS: 1. Postsedation instructions. 2. High fiber diet. 3. [place] [employer] screening recommendations forcolorectal disease. 4. Follow up with Dr. Covarrubias. 5. Follow up in my office will otherwise be on an as neededbasis. Mike Rosario M.D. CHEMO/ruma TD: 06/25/2010 12:28 CC: Dewayne Covarrubias M.D. PROCEDURE REPORT Authenticated by Mike Rosario MD On 07/06/2010 02:37:31 PM us Historical Provider MD ENDOSCOPY PROCEDURES [facility] Result documented in this encounter Visit Diagnoses Diagnosis Hemorrhage of rectum and anus Internal hemorrhoids Internal hemorrhoids without mention of complication documented in this encounter Care Teams Vat Tender Relationship Specialty Start Date End Date Dewayne Covarrubias MD PCP - General 06/12/10 10/11/17 documented as of this encounter
--- OUTSIDE RECORDS SUMMARY | 2024-05-13 22:25 | XMS_ITS | Encounter Summary ---
Author Organization [facility] Healthcare Address [address] [place] [address] Care Team Providers Care Rn Intake Name Role Phone Unavailable Primary Care Provider Unavailabl e Encounter Details Date Type Department Care Team (Late st Contact Info) Description 02/12/2007 10:20 PM CDT - 02/12/2007 11:12 PM CDT Hospital Encounter [facility] CLINChristian White MD [address] [place] [address] [address] [place] [address] Social History Tobacco Use Types Packs/Day Years Used Date Smoking Tobacco: Never Assessed Comments Unknown Sex and Gender Information Value Date Recorded Sex Assigned at Not on file 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
--- OUTSIDE RECORDS SUMMARY | 2024-05-13 22:25 | XMS_ITS | Encounter Summary ---
Author Organization [facility] Healthcare Address [address] [place] [address] Care Team Providers Care Lab Rn Name Role Phone Dewayne Covarrubias MD Primary Care Provider [phone] Encounter Details Date Type Department Care Team (Late st Contact Info) Description 09/02/2012 10:30 AM CDT - 09/02/2012 11:59 PM CDT Hospital Encounter [facility] Dewayne Covarrubias MD [address] [address] Edenilson Fowler PA [address] [place] [address] [address] Pain in joint, lower leg; Effusion of lower leg joint Social History Tobacco Use Types Packs/Day Years Used Date Smoking Tobacco: Never Alcohol Use Standard Drinks/Week Comments No 0 (1 standard drink = 0.6 oz pur e alcohol) Comments Unknown Sex and Gender Information Value Date Recorded Sex Assigned at Not on file 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 Gender Identity Not on file Sexual Orientation Not on file documented as of this encounter Plan of Treatment Not on file documented as of this encounter Procedures Procedure Name Priority Date/Time Associated Diagnosis Comments MRI LOWER EXTREMITY JOINT W CONTRAST Routine 09/02/2012 11:05 AM CDT documented in this encounter Results * MRI Lower Extremity Joint W Contrast (09/02/2012 11:05 AM CDT) Anatomical Region Laterality Modality N/A Magnetic Resonan ce 09/02/2012 11:0 5 AM CDT Narrative 09/02/2012 3:07 PM CDT MRI RIGHT KNEE Acc#: ??[id number] DATE OF EXAM: ??Sep 02 2012 CLINICAL HISTORY: Medial and lateral knee pain for past 2 weeks. ??No specific injury. ??No prior surgery. RESULT: Technique: Coronal T1 and fat saturation PD, sagittal PD and T2, axial gradient echo. Findings: There is no localized bone marrow edema with heterogeneity in the distal shaft of the femur attributable to a mixture of red and yellow marrow. ??The medial and lateral collateral ligaments, anterior and posterior cruciate ligaments, distal quadriceps tendon and patellar tendon are intact. ??There is a very small amount of joint fluid. ??There is no meniscal tear. IMPRESSION: VERY SMALL JOINT EFFUSION OTHERWISE NORMAL STUDY. Interpreting Physician: ??KING NIEVES M.D. ??Read on: ??Sep 02 2012 11:35A Transcribed by: ??mrr ??On: Sep 02 2012 ??2:24P Approved Electronically by: ??KING NIEVES M.D. ??on: ??Sep 02 2012 ??3:07P Ordering DR: EDENILSON MCKEON Attending DR: EDENILSON MCKEON Procedure Note Provider, MD Babita - 09/10/2016 MRI RIGHT KNEE Acc#: [id number] DATE OF EXAM: Sep 02 2012 CLINICAL HISTORY: Medial and lateral knee pain for past 2 weeks. No specific injury. Noprior surgery. RESULT: Technique: Coronal T1 and fat saturation PD, sagittal PD and T2, axialgradient echo. Findings: There is no localized bone marrow edema with heterogeneity inthe distal shaft of the femur attributable to a mixture of red and yellowmarrow. The medial and lateral collateral ligaments, anterior andposterior cruciate ligaments, distal quadriceps tendon and patellar tendonare intact. There is a very small amount of joint fluid. There is nomeniscal tear. IMPRESSION: VERY SMALL JOINT EFFUSION OTHERWISE NORMAL STUDY. Interpreting Physician: KING NIEVES M.D. Read on: Sep 02 2012 11:35A Transcribed by: mrr On: Sep 02 2012 2:24P Approved Electronically by: KING NIEVES M.D. on: Sep 02 2012 3:07P Ordering DR: EDENILSON MCKEON Attending DR: EDENILSON MCKEON us Historical Provider MD WILSON MRI PROCEDURES Final Result documented in this encounter Visit Diagnoses Diagnosis Pain in joint, lower leg Effusion of lower leg joint documented in this encounter Care Teams Lab Rn Relationship Specialty Start Date End Date Dewayne Covarrubias MD PCP - General 06/12/10 10/11/17 documented as of this encounter
--- OUTSIDE RECORDS SUMMARY | 2024-05-13 22:25 | XMS_ITS | Encounter Summary ---
Author Organization [facility] Healthcare Address [address] [place] [address] Care Team Providers Care Drywall Sander Name Role Phone Dewayne Covarrubias MD Primary Care Provider [phone] Encounter Details Date Type Department Care Team (Late st Contact Info) Description 02/20/2009 4:35 PM CDT - 02/23/2009 11:30 AM CDT Hospital Encounter [facility] Dewayne Covarrubias MD [address] [address] Christopher Waters MD [address] [place], [place] [id number] Calculus of gallbladder with acute cholecystitis; Essential hypertension; Glaucoma; Other and unspecified hyperlipidemia; Other depressive disorder; Iron deficiency anemia Social History Tobacco Use Types Packs/Day Years Used Date Smoking Tobacco: Never Assessed Comments Unknown Sex and Gender Information Value Date Recorded Sex Assigned at Not on file 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 Gender Identity Not on file Sexual Orientation Not on file documented as of this encounter Plan of Treatment Not on file documented as of this encounter Visit Diagnoses Diagnosis Calculus of gallbladder with acute cholecystitis Calculus of gallbladder with acute cholecystitis, without mention of obstruction Essential hypertension Unspecified essential hypertension Glaucoma Unspecified glaucoma Other and unspecified hyperlipidemia Other depressive disorder Iron deficiency anemia Unspecified iron deficiency anemia documented in this encounter Care Teams Drywall Sander Relationship Specialty Start Date End Date Dewayne Covarrubias MD PCP - General 02/07/09 05/16/09 documented as of this encounter
--- OUTSIDE RECORDS SUMMARY | 2024-05-13 22:25 | XMS_ITS | Encounter Summary ---
Author Organization [facility] Healthcare Address [address] [place] [address] Care Team Providers Care Airfreight Operations Agent Name Role Phone Dewayne Covarrubias MD Primary Care Provider [phone] Encounter Details Date Type Department Care Team (Late st Contact Info) Description 09/05/2010 12:01 AM CDT - 09/05/2010 11:59 PM CDT Hospital Encounter [facility] Dewayne Covarrubias MD [address] [address] Leiomyoma of uterus Social History Tobacco Use Types Packs/Day Years Used Date Smoking Tobacco: Never Alcohol Use Standard Drinks/Week Comments No 0 (1 standard drink = 0.6 oz pur e alcohol) Comments Unknown Sex and Gender Information Value Date Recorded Sex Assigned at Not on file 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
--- OUTSIDE RECORDS SUMMARY | 2024-05-13 22:25 | XMS_ITS | Encounter Summary ---
Author Organization [facility] Healthcare Address [address] [place] [address] Care Team Providers Care Ordained Minister Name Role Phone Dewayne Covarrubias MD Primary Care Provider [phone] Encounter Details Date Type Department Care Team (Late st Contact Info) Description 06/27/2010 3:08 PM PRODUCTION SUPERINTENDENT HYDRO - 06/27/2010 11:59 PM PRODUCTION SUPERINTENDENT HYDRO Hospital Encounter [facility] Screening for malignant neoplasm of cervix Social History Tobacco Use Types Packs/Day Years Used Date Smoking Tobacco: Never Alcohol Use Standard Drinks/Week Comments No 0 (1 standard drink = 0.6 oz pur e alcohol) Comments Unknown Sex and Gender Information Value Date Recorded Sex Assigned at Not on file Legal Sex Female 10:37 AM 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
--- OUTSIDE RECORDS SUMMARY | 2024-05-13 22:25 | XMS_ITS | Encounter Summary ---
Author Organization [facility] Healthcare Address [address] [place] [address] Care Team Providers Care Chute Boss Name Role Phone Dewayne Covarrubias MD Primary Care Provider [phone] Encounter Details Date Type Department Care Team (Latest Contact Info) Description 08/02/2009 12:01 AM CDT - 08/02/2009 11:59 PM CDT Hospital Encounter [facility] Dewayne Covarrubias MD [address] [address] Essential hypertension Social History Tobacco Use Types Packs/Day Years Used Date Smoking Tobacco: Never Assessed Comments Unknown Sex and Gender Information Value Date Recorded Sex Assigned at Not on file 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
--- OUTSIDE RECORDS SUMMARY | 2024-05-13 22:25 | XMS_ITS | Encounter Summary ---
Author Organization [facility] Care Team Providers Care Service Desk Team Lead Name Role Phone Dewayne Covarrubias MD Primary Care Provider [phone] Encounter Details Date Type Department Care Team (Late st Contact Info) Description 02/10/2012 10:46 AM CDT - 02/11/2012 3:21 PM CDT Hospital Encounter [facility] CLINCONDanette Hsu, Fidel Jenkins MD [address] [facility] [place] [address] Profound impairment, one eye, impairment level not further specified; Pain in or around eye; Encounter for long-term (current) use of other medications Social History Tobacco Use Types Packs/Day Years Used Date Smoking Tobacco: Never Alcohol Use Standard Drinks/Week Comments No 0 (1 standard drink = 0.6 oz pur e alcohol) Comments Unknown Sex and Gender Information Value Date Recorded Sex Assigned at Not on file 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 Gender Identity Not on file Sexual Orientation Not on file documented as of this encounter Last Filed Vital Signs Vital Sign Reading Time Taken Comments Blood Pressure 109/70 02/11/2012 7:42 AM CDT Pulse 84 02/11/2012 7:42 AM CDT Temperature - - Respiratory Rate - - Oxygen Saturation 97% 02/11/2012 7:42 AM CDT Inhaled Oxygen Concentration - - Weight 113 kg (249 lb 1.9 oz) 02/10/2012 6:28 PM CDT Height 168 cm (5' 6.14 ) 02/10/2012 6:28 PM CDT Body Mass Index 40.04 02/10/2012 6:28 PM CDT documented in this encounter Plan of Treatment Not on file documented as of this encounter Visit Diagnoses Diagnosis Profound impairment, one eye, impairment level not further specified Profound impairment, one eye, Impairment level not further specified Pain in or around eye Encounter for long-term (current) use of other medications documented in this encounter Care Teams Service Desk Team Lead Relationship Specialty Start Date End Date Dewayne Covarrubias MD PCP - General 06/12/10 10/11/17 documented as of this encounter
--- OUTSIDE RECORDS SUMMARY | 2024-05-13 22:25 | XMS_ITS | Encounter Summary ---
Author Organization [facility] Healthcare Address [address] [place] [address] Care Team Providers Care Hhas Name Role Phone Dewayne Covarrubias MD Primary Care Provider [phone] Encounter Details Date Type Department Care Team (Late st Contact Info) Description 08/01/2009 12:01 AM CDT - 08/01/2009 11:59 PM CDT Hospital Encounter [facility] Dewayne Covarrubias MD [address] [address] Social History Tobacco Use Types Packs/Day Years Used Date Smoking Tobacco: Never Assessed Comments Unknown Sex and Gender Information Value Date Recorded Sex Assigned at Not on file Legal 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
--- OUTSIDE RECORDS SUMMARY | 2024-05-13 22:25 | XMS_ITS | Encounter Summary ---
Author Organization [facility] Healthcare Address [address] [place] [address] Care Team Providers Care Curing Machine Operator Name Role Phone Dewayne Covarrubias MD Primary Care Provider [phone] Encounter Details Date Type Department Care Team (Late st Contact Info) Description 07/01/2010 12:01 AM MOSAIC FLOOR LAYER - 07/01/2010 11:59 PM MOSAIC FLOOR LAYER Hospital Encounter [facility] Dewayne Covarrubias MD [address] [address] Goiter Social History Tobacco Use Types Packs/Day Years Used Date Smoking Tobacco: Never Alcohol Use Standard Drinks/Week Comments No 0 (1 standard drink = 0.6 oz pur e alcohol) Comments Unknown Sex and Gender Information Value Date Recorded Sex Assigned at Not on file Legal Sex Female 10:37 AM MOSAIC FLOOR LAYER Gender Identity Not on file Sexual Orientation Not on file documented as of this encounter Plan of Treatment Not on file documented as of this encounter Visit Diagnoses Diagnosis Goiter Goiter, unspecified documented in this encounter Care Teams Curing Machine Operator Relationship Specialty Start Date End Date Dewayne Covarrubias MD PCP - General 06/12/10 10/11/17 documented as of this encounter
--- OUTSIDE RECORDS SUMMARY | 2024-05-13 22:25 | XMS_ITS | Encounter Summary ---
Author Organization [facility] Healthcare Address [address] [place] [address] Care Team Providers Care Manager Inpatient Name Role Phone Dewayne Covarrubias MD Primary Care Provider [phone] Encounter Details Date Type Department Care Team (Late st Contact Info) Description 08/26/2010 11:45 AM CDT - 08/26/2010 11:59 PM CDT Hospital Encounter [facility] Dewayne Covarrubias MD [address] [address] Abdominal pain Social History Tobacco Use Types Packs/Day Years Used Date Smoking Tobacco: Never Alcohol Use Standard Drinks/Week Comments No 0 (1 standard drink = 0.6 oz pur e alcohol) Comments Unknown Sex and Gender Information Value Date Recorded Sex Assigned at Not on file Legal Sex Female 10:37 AM AUDIT LEAD Gender Identity Not on file Sexual Orientation Not on file documented as of this encounter Plan of Treatment Not on file documented as of this encounter Visit Diagnoses Diagnosis Abdominal pain Abdominal pain, unspecified site documented in this encounter Care Teams Manager Inpatient Relationship Specialty Start Date End Date Dewayne Covarrubias MD PCP - General 06/12/10 10/11/17 documented as of this encounter
--- OUTSIDE RECORDS SUMMARY | 2024-05-13 22:25 | XMS_ITS | Encounter Summary ---
Author Organization [facility] Healthcare Address [address] [place] [address] Care Team Providers Care Passenger Train Braker Name Role Phone Dewayne Covarrubias MD Primary Care Provider [phone] Encounter Details Date Type Department Care Team (Late st Contact Info) Description 02/19/2009 12:01 AM CDT - 02/19/2009 11:59 PM CDT Hospital Encounter [facility] Audie Michaud MD [address] [place] [address] Abdominal pain, right upper quadrant Social History Tobacco Use Types Packs/Day Years Used Date Smoking Tobacco: Never Assessed Comments Unknown Sex and Gender Information Value Date Recorded Sex Assigned at Not on file Legal Sex Female 10:37 AM PHYSICAL BIOCHEMIST Gender Identity Not on file Sexual Orientation Not on file documented as of this encounter Plan of Treatment Not on file documented as of this encounter Visit Diagnoses Diagnosis Abdominal pain, right upper quadrant documented in this encounter Care Teams Passenger Train Braker Relationship Specialty Start Date End Date Dewayne Covarrubias MD PCP - General 02/07/09 05/16/09 documented as of this encounter
--- OUTSIDE RECORDS SUMMARY | 2024-05-13 22:25 | XMS_ITS | Encounter Summary ---
Author Organization [facility] Facility Care Team Providers Care Education Program Associate Name Role Phone Unavailable Primary Care Provider Unavailabl e Encounter Details Date Type Department Care Team (Late st Contact Info) Description 10/17/2007 5:52 AM CDT - 10/17/2007 4:00 PM CDT Hospital Encounter [facility] Andre Rosenthal MD [address] [address] Social History Tobacco Use Types Packs/Day Years Used Date Smoking Tobacco: Never Assessed Comments Unknown Sex and Gender Information Value Date Recorded Sex Assigned at Not on file Legal Sex Female 10:37 AM ASSOCIATE PASTOR Gender Identity Not on file Sexual Orientation Not on file documented as of this encounter Plan of Treatment Not on file documented as of this encounter Visit Diagnoses Not on filedocumented in this encounter
--- OUTSIDE RECORDS SUMMARY | 2024-05-13 22:25 | XMS_ITS | Encounter Summary ---
Author Organization [facility] Healthcare Address [address] [place] [address] Care Team Providers Care Nurse Chemical Dependency Name Role Phone Dewayne Covarrubias MD Primary Care Provider [phone] Encounter Details Date Type Department Care Team (Late st Contact Info) Description 07/30/2008 12:01 AM CDT - 07/30/2008 11:59 PM CDT Hospital Encounter [facility] Dewayne Covarrubias MD [address] [address] Syncope and collapse; Undiagnosed cardiac murmurs Social History Tobacco Use Types Packs/Day Years Used Date Smoking Tobacco: Never Assessed Comments Unknown Sex and Gender Information Value Date Recorded Sex Assigned at Not on file Legal Sex Female 10:37 AM SPECIAL EFFECTS TECHNICIAN Gender Identity Not on file Sexual Orientation Not on file documented as of this encounter Plan of Treatment Not on file documented as of this encounter Visit Diagnoses Diagnosis Syncope and collapse Undiagnosed cardiac murmurs documented in this encounter Care Teams Nurse Chemical Dependency Relationship Specialty Start Date End Date Dewayne Covarrubias MD PCP - General 07/25/08 02/06/09 documented as of this encounter
--- OUTSIDE RECORDS SUMMARY | 2024-05-13 22:25 | XMS_ITS | Encounter Summary ---
Author Organization [facility] Healthcare Address [address] [place] [address] Care Team Providers Care Physical Design Engineer Name Role Phone Dewayne Covarrubias MD Primary Care Provider [phone] Encounter Details Date Type Department Care Team (Late st Contact Info) Description 11/29/2008 12:01 AM CDT - 11/29/2008 11:59 PM CDT Hospital Encounter [facility]IN[facility]V Dewayne Covarrubias MD [address] [address] Social History Tobacco Use Types Packs/Day Years Used Date Smoking Tobacco: Never Assessed Comments Unknown Sex and Gender Information Value Date Recorded Sex Assigned at Not on file Legal Sex Female 10:37 AM SAND CONTROL WORKER Gender Identity Not on file Sexual [...]
--- OUTSIDE RECORDS SUMMARY | 2024-05-13 22:28 | XMS_ITS | Encounter Summary ---
Author Organization [facility] Address [address] [place] [address] Care Team Providers Care Last Remodeler Repairer Name Role Phone Zuly Johnson TESTER REGULATOR Primary Care Provider [phone] Reason for Visit * Reason Comments Biopsy L USG Vac Bx Encounter Details Date Type Department Care Team (Latest Contact Info) Description 05/17/2018 10:00 AM PRIMER CHARGING TOOL SETTER Procedure visit [facility] BREAST SURGERY [address] [place] [address] Charlene Brandon, NO ADDRESS ON FILE Nipple discharge (Primary Dx); Lump of left breast; Mastodynia Social History Tobacco Use Types Packs/Day Years Used Date Smoking Tobacco: Never Smokeless Tobacco: Never Alcohol Use Standard Drinks/Week Comments No 0 (1 standard drink = 0.6 oz pur e alcohol) Sex and Gender Information Value Date Recorded Sex Assigned at Not on file Gender Identity Not on file Sexual Orientation Not on file documented as of this encounter Last Filed Vital Signs Vital Sign Reading Time Taken Comments Blood Pressure 142/101 05/17/2018 9:41 AM PRIMER CHARGING TOOL SETTER Pulse 80 05/17/2018 9:41 AM PRIMER CHARGING TOOL SETTER Temperature 37.2 ??C (98.9 ??F) 05/17/2018 9:41 AM CS T Respiratory Rate - - Oxygen Saturation 96% 05/17/2018 9:41 AM PRIMER CHARGING TOOL SETTER Inhaled Oxygen Concentration - - Weight 124.1 kg (273 lb 9.6 oz) 05/17/2018 9:41 AM PRIMER CHARGING TOOL SETTER Height 167.6 cm (5' 6 ) 05/17/2018 9:41 AM PRIMER CHARGING TOOL SETTER Body Mass Index 44.16 05/17/2018 9:41 AM PRIMER CHARGING TOOL SETTER documented in this encounter Progress Notes * Rose Mary Johnson RN - 05/17/2018 2:06 PM CST L4:[id number] - 12g VAC - 21g - coil SenoMark UltraCor Breast Tissue Marker, [id number] Lot: [id number] Exp: [id number] Lidocaine 1% (50mg/5mL) Lot: [id number] Exp: [id number] Dose: 1mL Lidocaine 1% and Epinepherine 1:100,000 (50mL) Lot: [id number] Exp: [id number] Dose: 4mL Sensorcaine 0.25% (50mL) Lot: [id number] Exp: 12/2019 Dose: 3mL ER CHARGING TOOL SETTER * Charlene Brandon DO - 05/17/2018 9:38 AM CST The patient is here for left ultrasound guided vacuum-assisted core biopsy. FDLMP: 05/12/2018 Encounter Diagnoses Name Primary? Lump of left breast ??? Mastodynia ??? Nipple discharge Yes Consent was reviewed with the patient and signed. 12-gauge vacuum-assisted core ultrasound guided procedure was done. The location of the biopsy was at left 4:00 3 cm from the nipple characteristics : None palpable associated with nipple discharge, mastodynia, hypoechoic, lesion within the duct BIRADS: 2 Needle approach: Lateral A marker was placed. yes and Coil-shaped placement: Marker in perfect position within the lesion. Anesthetic used: Lidocaine 1% 1 mL, lidocaine 1% with epinephrine 4 mL, Marcaine 0.25% 3 mL Specimen: multiple cores PROCEDURE: The area of concern was localized with ultrasonography, and the skin was prepped and draped in the standard surgical fashion. The skin was infiltrated with anesthetic, as were the deep tissues. A small incision was made in the skin, and the biopsy needle was advanced into the breast under direct visualization. Multiple cores were taken under direct visualization as specimen and sent to pathology. Photo do cumentation was taken throughout. Pressure was applied for hemostasis, and steri strips and gauze were applied. A post-biopsy mammogram was done. no Pt was given discharge instructions and a follow up appointment. Questions were solicited and answered. The patient stated her understanding. ER CHARGING TOOL SETTER documented in this encounter Procedure Notes * Charlene Brandon DO - 05/17/2018 10:05 AM CSTAssociated Order(s): BIOPSY BREAST Procedure(s): [place] BX BREAST W/DEVICE 1ST LESION ULTRASOUND GUID Pre-Procedure Diagnose(s): Lump of left breast; Mastodynia; Nipple discharge See note, left ER CHARGING TOOL SETTER documented in this encounter Plan of Treatment Not on file documented as of this encounter Procedures Procedure Name Priority Date/Time Associated Diagnosis Comments [place] BX BREAST W/DEVICE 1ST LESION ULTRASOUND GUID Routine 05/17/2018 10:05 AM PRIMER CHARGING TOOL SETTER Lump of left breast Mastodynia Nipple discharge documented in this encounter Results * [place] BX BREAST W/DEVICE 1ST LESION ULTRASOUND GUID (05/17/2018 10:05 AM PRIMER CHARGING TOOL SETTER) Narrative [facility] - 05/17/2018 10:05 AM PRIMER CHARGING TOOL SETTER Charlene Brandon DO ? 05/17/2018 10:10 AM See note, left Charlene Brandon DO PROCEDURE/MINOR LAMAR GICAL ORDERABLES [facility] documented in this encounter Visit Diagnoses Diagnosis Nipple discharge- Primary Other sign and symptom in breast Lump of left breast Lump or mass in breast Mastodynia documented in this encounter Care Teams Last Remodeler Repairer Relationship Specialty Start Date End Date Zuly Johnson FNP PCP - General NURSE PRACTITIONER 04/29/18 documented as of this encounter
--- OUTSIDE RECORDS SUMMARY | 2024-05-13 22:28 | XMS_ITS | Encounter Summary ---
Author Organization [facility] Address [address] [place] [address] Care Team Providers Care Senior Data Analyst Name Role Phone Zuly Johnson GENERAL NEUROLOGIST Primary Care Provider [phone] Reason for Visit * Reason Comments Follow Up L Nipple Discharge a nd tender Encounter Details Date Type Department Care Team (Late st Contact Info) Description 04/29/2018 3:30 PM ANTISUBMARINE WEAPONS OFFICER Office Visit [facility] BREAST SURGERY [address], [address] [address] Charlene Brandon DO NO ADDRESS ON FILE Mastodynia (Primary Dx); Lump of left breast; Lump of right breast; Nipple discharge; Abnormal ultrasound of breast Social History Tobacco Use Types Packs/Day Years [...] Sign Reading Time Taken Comments Blood Pressure 156/93 04/29/2018 3:44 PM ANTISUBMARINE WEAPONS OFFICER Pulse 108 04/29/2018 3:44 PM ANTISUBMARINE WEAPONS OFFICER Temperature 36.3 ??C (97.3 ??F) 04/29/2018 3:44 PM CS T Respiratory Rate - - Oxygen Saturation 98% 04/29/2018 3:44 PM ANTISUBMARINE WEAPONS OFFICER Inhaled Oxygen Concentration - - Weight 125.2 kg (276 lb) 04/29/2018 3:44 PM ANTISUBMARINE WEAPONS OFFICER Height 167.6 cm (5' 6 ) 04/29/2018 3:44 PM ANTISUBMARINE WEAPONS OFFICER Body Mass Index 44.55 04/29/2018 3:44 PM ANTISUBMARINE WEAPONS OFFICER documented in this encounter Progress Notes * Charlene Brandon, DO - 04/29/2018 3:45 PM CST PATIENT: Cesario Jewell : 1980 DATE: 04/29/2018 CHIEF COMPLAINT: Chief Complaint Patient presents with ??? Follow Up L Nipple Discharge and tender HISTORY OF PRESENT ILLNESS: Cesario Jewell is a 38 y.o. female presents today with left nipple pain, left nipple discharge (yellow with pressure only), nipple misshapen/ oblong x 1 week. Pt states she has shooting pain in nipple, nipple is sore and achy. Pt applied warm compresses as of yesterday, which helps a little. Also with itchy nipple. Pt started clindamycin last evening. Pain seems to have gotten worse. Pt had bloody left nipple discharge in June and had imaging at that time. Pt was told that everything was fine. Bloody nipple discharge happened a few times, only with pressure, stopped on its own. Pt is here with her girlfriend. Started Effexor 05/2017. Virgilio lemus The patient was last seen by me on May 14, 2016. At the time, she was seen for several benign-appearing lesions of the left breast (likely cysts L 7:00 1cmFN). Also at the time, she was considering getting in the near future, and was warned that with her polycystic ovarian disease and the possibility of , the lesions in her breasts may get larger. Originally, she came to see me with bilateral nipple discharge. Nipple discharge was considered to be due to the multiple medications such as metformin and Prozac that she was previously taking. She was lost to follow-up. Pt never did get , and states that this possibility is no longer an option for her. PROCEDURE(s): 10/2011: Right duct excision Pathology: papilloma, chronic periductal inflammation FHx: No breast carcinoma; ovarian ca: paternal GM dx unk age, passed 78yo; no other ca Menarche 13, FDLMP 03/29/2018, premenopausal , FFTB n/a, breast fed n/a contraceptives: yes andOCPs 1 yr HRT no Bra size: 38D Ashkenazi heritage: no Smoker: no PMH: Past Medical History: Diagnosis Date ??? Glaucoma ??? HTN (hypertension) ??? Polycystic ovarian disease PSH: Past Surgical History: Procedure Laterality Date ??? HX CHOLECYSTECTOMY ??? HX EXCISION / BIOPSY BREAST / NIPPLE / DUCT ??? HX EYE SURGERY Left ??? HX TONSILLECTOMY ??? HX UTERINE SURGERY ALLERGY: Allergies Allergen Reactions ??? Penicillins Hives ??? Sulfa (Sulfonamide Antibiotics) Itching Eye drops MEDS: Current Outpatient Prescriptions Medication Sig Dispense Refill ??? venlafaxine (EFFEXOR) 75 mg tablet ??? amLODIPine (NORVASC) 5 mg tablet ??? latanoprost (XALATAN) 0.005 % solution ??? clindamycin HCl (CLEOCIN) 300 mg Capsule Take 1 Capsule (300 mg) by mouth 4 times daily for 10 days Take with food. 40 Capsule 0 No current facility-administered medications for this visit. FHX: No family history on file. SOC: Social History Social History ??? Marital status: Single Spouse name: N/A ??? Number of children: N/A ??? Years of education: N/A Occupational History ??? Not on file. Social History Main Topics ??? Smoking status: Never Smoker ??? Smokeless tobacco: Never Used ??? Alcohol use No ??? Drug use: No ??? Sexual activity: Not on file Other Topics Concern ??? Self-Exams Yes Social History Narrative ??? No narrative on file ROS: Constitutional: Negative for fever, weight loss and malaise/fatigue. Respiratory: Negative for cough. Cardiovascular: Negative for chest pain and leg swelling. Gastrointestinal: Negative for abdominal pain. Genitourinary: Negative for dysuria. Musculoskeletal: Negative for myalgias and joint pain. Skin: Negative for rash. Neurological: Negative for dizziness and headaches. Psychiatric/Behavioral: Negative for depression Female: OB History Para Term AB Living 0 0 0 0 0 0 SAB TAB Ectopic Multiple Live Births 0 0 0 0 0 Obstetric Comments 04/29/18 Chief Complaint? Left nipple discharge and left breast pain When did this start? 1 week ago Monthly Self Breast Exams? yes Yearly MMG? no Any Breast changes or symptoms? yes Hx of any prior Breast Procedure? Yes Hx of Breast CA? no Any other CA? no Family hx of Breast CA or Ovarian CA? PGM - ovarian - dx UA - 79 Family hx of any other CA? no Age of menarche? 13 Last menstrual period? 03/29/18 How many pregnancies? 0 Ever use control? OCPs 1 year Any Hormone Replacemen t Therapy? no Bra size? 38D Ashkenazi heritage? no Smoker? never The remainder of the review of systems including cardiovascular, pulmonary, GI/, neurologic, and endocrine are negative except as noted above. Immunizations: non-contributory PHYSICAL EXAM: BP (!) 156/93 (BP Location: Right arm, Patient Position (BP): Sitting, BP Cuff Size: Adult) Pulse(!) 108 Temp 97.3 ??F (36.3 ??C) (Oral) Ht 5' 6 (1.676 m) Wt 125.2 kg (276 lb) LMP 03/29/2018 (Approximate) SpO2 98% ? No BMI 44.55 kg/m?? Breasts: The patient was examined in the seated and supine positions today. no cervical, supraclavicular, axillary lymphadenopathy. Breast symmetry: Left breast larger than right Other findings: On visual exam, there are no areas of skin dimpling, no skin changes. On palpation,the left periareolar area is very tender to palpation, especially getting closer to the nipple. At 4:00 retroareolar, there is significant tenderness to palpation. No discharge is elicited on today'sexam. The nipple is normal and everted. On palpation of the right breast, at 4:00 retroareolar, there is an ill-defined density. This is nontender and with a normal everted and nipple with no discharge. Ultrasound was done: Bilateral targeted ultrasound. In the left breast at 4:00 3 cm from the nipple, there is a dilated duct with an internal density measuring 0.45 x 0.35 x 0.44 cm. This is vascularand nonshadowing. Left breast 1:00 13 cm from the nipple does not demonstrate the previously seen cyst. Right breast 4:00 retroareolar demonstrates only dense breast tissue. General: well-developed, well-nourished HEENT: normocephalic/atraumatic. Extra-occular movements are intact. Sclera anicteric. Neck is supple without masses. No thyroid nodules. No lymphadenopathy. Cardiovascular: regular rate, rhythm. S1, S2 without murmur. No palpable thrill. 2+ radial pulses. Lungs - clear to auscultation bilaterally. No wheezes. Abdomen: Soft, non-tender. No masses. No palpable liver edge. Extremities: no edema Neurologic: sensory and motor grossly intact. Alert and oriented x 3. Most recent imaging: Patient had diagnostic bilateral mammograms done at [facility] on June 24, 2017. The only prior films available are from 2013. The breasts bilaterally are with about 30% density. There is a nodule noted in the left upper outer breast. This has benign features on mammography. There is a biopsy marker in the right retroareolar space. There are no other specific areasof concern. Future imaging needed: To be determined ASSESSMENT AND PLAN: Encounter Diagnoses Name Primary? Lump of left breast ??? Lump of right breast ??? Mastodynia Yes ??? Nipple discharge ??? Abnormal ultrasound of breast I explained to the patient and her girlfriend, Tiffany, that the symptoms of the left nipple as well as findings on today's ultrasound seem to point to a papilloma. 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 This appears to be a similar entity. I do recommend an ultrasound-guided biopsy. However, I would like for her to finish her clindamycin to make sure that if there is an infection, it is cleared. I am concerned that she is having such tremendous discomfort. Ultrasound guided biopsy procedure, alternatives, common and uncommon risks, benefits and expected outcomes were explained. The patient was given literature of the same, and would like to move ahead with scheduling. The previously noted cyst in the left upper outer breast is not seen on today's ultrasound. As for the nodular density in the right breast, this appears to be simply dense breast tissue. The patient was reassured. Patient's questions were solicited and fully answered. Patient stated understanding. Charlene Brandon DO, FACOS SUBMARINE WEAPONS OFFICER documented in this encounter Miscellaneous Notes * Addendum Note - Umer Johnson RN - 04/29/2018 4:48 PM CSTAddended by: UMER JOHNSON on: 04/29/2018 04:48 PM Modules accepted: Orders SUBMARINE WEAPONS OFFICER documented in this encounter Plan of Treatment Not on file documented as of this encounter Procedures Procedure Name Priority Date/Time Associated Diagnosis Comments US BREAST UNI LT LTD Routine 04/29/2018 Lump of left breast Mastodynia Nipple discharge Abnormal ultrasound of breast US BREAST UNI RT LTD Routine 04/29/2018 Lump of right breast Mastodynia Nipple discharge Abnormal ultrasound of breast documented in this encounter Results * US BREAST UNI LT LTD (04/29/2018) Anatomical Region Laterality Modality Left Other Impressions 04/29/2018 See note. Charlene Brandon DO US ORDERABLES * US BREAST UNI RT LTD (04/29/2018) Anatomical Region Laterality Modality Breast Right Other Impressions 04/29/2018 See note. Charlene Brandon DO US ORDERABLES documented in this encounter Visit Diagnoses Diagnosis Mastodynia- Primary Lump of left breast Lump or mass in breast Lump of right breast Lump or mass in breast Nipple discharge Other sign and symptom in breast Abnormal ultrasound of breast Other (abnormal) findings on radiological examination of breast documented in this encounter Care Teams Senior Data Analyst Relationship Specialty Start Date End Date Zuly Johnson FNP PCP - General NURSE PRACTITIONER 04/29/18 documented as of this encounter
--- OUTSIDE RECORDS SUMMARY | 2024-05-13 22:28 | XMS_ITS | Encounter Summary ---
Author Organization [facility] Address [address] [place] [address] Care Team Providers Care Paper Carrier Name Role Phone Zuly Johnson BATCH DUMPER Primary Care Provider [phone] Reason for Referral * Physical Therapy (Routine) - Closed Specialty Diagnoses / Procedures Referred By Joelle lopez Referred To Contact Diagnoses Muscle spasm Charlene Brandon DO NO ADDRESS ON FILE [facility] Physical Therapy [address] [place] [address] Referral ID Status Reason Start Date Expiration Date Visits Requested Visits Authorized [id number] Closed Ordering Department To Schedule 03/16/2019 03/16/2020 6 6 URE FABRICATOR REPAIRER Reason for Visit * Reason Comments Follow Up L Nipple Discharge, lump, and breast pain - Birads 1 Encounter Details Date Type Department Care Team (Late st Contact Info) Description 03/16/2019 3:00 PM FIXTURE FABRICATOR REPAIRER Office Visit [facility] [address] [place] [phone] Charlene Brandon DO NO ADDRESS ON FILE Nipple discharge (Primary Dx); Duct ectasia of breast, left; Muscle spasm; Morbid obesity with body mass index of 40.0-49.9 Social History Tobacco Use Types Packs/Day Years [...] Sign Reading Time Taken Comments Blood Pressure 134/98 03/16/2019 2:45 PM FIXTURE FABRICATOR REPAIRER Pulse 97 03/16/2019 2:45 PM FIXTURE FABRICATOR REPAIRER Temperature 36.8 ??C (98.2 ??F) 03/16/2019 2:45 PM CS T Respiratory Rate - - Oxygen Saturation 98% 03/16/2019 2:45 PM FIXTURE FABRICATOR REPAIRER Inhaled Oxygen Concentration - - Weight 112.9 kg (249 lb) 03/16/2019 2:45 PM FIXTURE FABRICATOR REPAIRER Height 167.6 cm (5' 6 ) 03/16/2019 2:45 PM FIXTURE FABRICATOR REPAIRER Body Mass Index 40.19 03/16/2019 2:45 PM FIXTURE FABRICATOR REPAIRER documented in this encounter Progress Notes * Charlene Brandon, DO - 03/16/2019 3:00 PM CST Chief Complaint Patient presents with ??? Follow Up L Nipple Discharge, lump, and breast pain - Birads 1 Subjective: Pt is here unaccompanied with chief complaint of daily yellow left nipple discharge hasbeen ongoing, spontaneous in bra, and when she saw PCP, a lump was found in left breast 01/2019 in the 10-11:00 area. Pt never felt the lump, but was sent for imaging and to see me. In fact, the imaging that was done was read as BI-RADS 1. The patient is also being evaluated for left chest pain, and has been to ER, multiple doctors, withno definitive diagnosis. FDLMP: 02/13/2019 05/24/2018: The patient states she is feeling well with no complaints. She has had no pain, no fevers related to the procedure. She states that she has noticed that the shooting breast discomfort she has had appears to be hormonally driven. She has noted that this occurs about 2 days before ovulation and lost through the time of her ovulation. She has scheduled an appointment with Dr. Nguyen, endocrinology. PROCEDURE(s): 05/17/2018: Left breast ultrasound-guided vacuum-assisted core biopsy 4:00 3cmFN Pathology: Duct ectasia with mild chronic inflammation. Fragments of inspissated ductal secretions with pigmented macrophages. No evidence of malignancy 10/2011: Right duct excision Pathology: papilloma, chronic periductal inflammation ?? FHx: No breast carcinoma; ovarian ca: paternal GM dx unk age, passed 78yo; no other ca ?? Menarche 13, menses regular, premenopausal , FFTB n/a, breast fed n/a contraceptives: yes and OCPs 1 yr HRT no ?? Bra size: 38D ?? Ashkenazi heritage: no ?? Smoker: no BP (!) 134/98 (BP Location: Right arm, Patient Position (BP): Sitting, BP Cuff Size: Adult) Pulse97 Temp 98.2 ??F (36.8 ??C) (Oral) Ht 5' 6 (1.676 m) Wt 112.9 kg (249 lb) LMP 02/13/2019 (Approximate) SpO2 98% ? No BMI 40.19 kg/m?? Current Outpatient Medications Medication Sig Dispense Refill ??? metFORMIN (GLUCOPHAGE XR) 500 mg Extended Release 24 hour tablet TAKE 2 TABLET(S) EVERY DAY BY ORAL ROUTE BEFORE MEALS FOR 30 DAYS. 1 ??? spironolactone (ALDACTONE) 50 mg tablet TAKE 1 TABLET BY MOUTH EVERY DAY IN THE MORNING 3 ??? montelukast (SINGULAIR) 10 mg tablet TAKE 1 TABLET BY MOUTH EVERY DAY IN THE EVENING 5 ??? ibuprofen (MOTRIN) 800 mg tablet TAKE 1 TABLET BY MOUTH THREE TIMES A DAY 0 ??? albuterol HFA 90 mcg inhaler ??? cholecalciferol, vitamin D3, 5,000 unit Vitamin D3 5,000 unit tablet TAKE 1 TABLET BY MOUTH EVERY DAY IN THE MORNING ??? amLODIPine (NORVASC) 10 mg tablet ??? venlafaxine (EFFEXOR) 75 mg tablet ??? latanoprost (XALATAN) 0.005 % solution No current facility-administered medications for this visit. Allergies Allergen Reactions ??? Penicillins Hives ??? Sulfa (Sulfonamide Antibiotics) Itching Eye drops Past Medical History: Diagnosis Date ??? Glaucoma ??? HTN (hypertension) ??? Polycystic ovarian disease Past Surgical History: Procedure Laterality Date ??? HX CHOLECYSTECTOMY ??? HX EXCISION / BIOPSY BREAST / NIPPLE / DUCT ??? HX EYE SURGERY Left ??? HX TONSILLECTOMY ??? HX UTERINE SURGERY ROS: Constitutional: Negative for fever, weight loss and malaise/fatigue. Respiratory: Negative for cough. Cardiovascular: Negative for chest pain and leg swelling. Gastrointestinal: Negative for abdominal pain. Genitourinary: Negative for dysuria. Musculoskeletal: Negative for myalgias and joint pain. Skin: Negative for rash. Neurological: Negative for dizziness and headaches. Psychiatric/Behavioral: Negative for depression Female: OB History 0 Para 0 Term 0 0 AB 0 Living 0 SAB 0 TAB 0 Ectopic 0 Multiple 0 Live Births 0 Obstetric Comments 04/29/18 Chief Complaint? Left [...] above. Immunizations: non-contributory PHYSICAL EXAM: BP (!) 134/98 (BP Location: Right arm, Patient Position (BP): Sitting, BP Cuff Size: Adult) Pulse97 Temp 98.2 ??F (36.8 ??C) (Oral) Ht 5' 6 (1.676 m) Wt 112.9 kg (249 lb) LMP 02/13/2019 (Approximate) SpO2 98% ? No BMI 40.19 kg/m?? Breasts: The patient was examined in the seated and supine positions today. no cervical, supraclavicular, axillary lymphadenopathy. Breast symmetry: Left breast larger than right Other findings: On visual exam, there are no areas of skin dimpling, no skin tenting, no erythema, no rashes, and generally no skin changes. On palpation, there are no nodular densities nor suspicious dominant palpable masses in either breast. The nipples are bilaterally everted. The right nipple is without discharge, everted. The left nipple is everted, but with pressure, there is clear to yellowish discharge from a singular duct at the 4 o'clock position. There is significant tenderness to palpation of the left pectoralis major and serratus anterior muscles. This is especially pronounced at the superior left pectoralis major with edema of the musculature. Targeted left breast ultrasound was done. Upon scanning, there is a tiny cyst identified just deep to the nipple which measures 0.69 x 0.34 x 1.05 cm. This is avascular, nonshadowing and with questionable internal debris. General: well-developed, well-nourished HEENT: normocephalic/atraumatic. Extra-occular movements [...] Alert and oriented x 3. Most recent imaging was: Bilateral diagnostic mammogram and left breast ultrasound was done on 01/20/2019 at [facility]. This was read as BI-RADS 1 by the radiologist. Both breasts were imaged on 01/20/2019. Comparison films are available from 06/24/2017. The breasts bilaterally are with minimal fibroglandular density, category 2. A skin marker was positioned at the site of concern; however, there is no corresponding abnormality. A biopsy clip is noted in the left anterior central breast. There is another biopsy clip noted in the right anterior central breast. Otherwise, there are no new findings, no architectural distortion, no groupings of suspicious calcifications. The previously noted round density in the left upper outer breast is not seen on today's exam. Patient had diagnostic bilateral mammograms done at [facility] on June 24, 2017. The only prior films available are from 2013. The breasts bilaterally are with about 30% density. There is a nodule noted in the left upper outer breast. This has benign features on mammography. There is a biopsy marker in the right retroareolar space. There are no other specific areas of concern. Future imaging is to be done: Bilateral screening mammogram at age 40 per ACR guidelines ASSESSMENT AND PLAN: Encounter Diagnoses Name Primary? Nipple discharge Yes ??? Duct ectasia of breast, left ??? Muscle spasm ??? Morbid obesity with body mass index of 40.0-49.9 I explained to the patient that in fact her chest pain is stemming definitively from muscle spasm. She has significant pectoralis major muscle spasm, and would benefit greatly from physical therapy. A referral was sent. The patient prefers to do this in [place], so that she can be close to home as she does not drive. As far as the nipple discharge is concerned, there is a tiny cyst immediately deep to the nipple and is likely the reason for the nipple discharge. I explained to the patient that this should be excised, but I recommend that she attends physical therapy first to get her pain under control. She is to follow-up in 3 months. TOBACCO COUNSELING She is not a tobacco user. Questions were solicited and answered. The patient stated her understanding. This note was transcribed using Speech Recognition software. As a result, there may be grammatical and spelling errors that are unintended. If there are any questions or major inaccuracies, please contact me. URE FABRICATOR REPAIRER documented in this encounter Plan of Treatment Scheduled Referrals Name Type Priority Associated Diagnoses Orde r Schedule AMB REFERRAL TO PHYSICAL THERAPY Outpatient Referral Routine Muscle spasm Ordered: 03/16/2019 documented as of this encounter Procedures Procedure Name Priority Date/Time Associated Diagnosis Comments US BREAST UNI LT LTD Routine 03/16/2019 Nipple discharge Duct ectasia of breast, left documented in this encounter Results * US BREAST UNI LT LTD (03/16/2019) Anatomical Region Laterality Modality Left Other Impressions 03/16/2019 See note. Charlene MARIE ORDERABLES documented in this encounter Visit Diagnoses Diagnosis Nipple discharge- Primary Other sign and symptom in breast Duct ectasia of breast, left Muscle spasm Spasm of muscle Morbid obesity with body mass index of 40.0-49.9 documented in this encounter Care Teams Paper Carrier Relationship Specialty Start Date End Date Zuly Johnson FNP PCP - General NURSE PRACTITIONER 04/29/18 documented as of this encounter
--- OUTSIDE RECORDS SUMMARY | 2024-05-13 22:28 | XMS_ITS | Encounter Summary ---
Author Organization [facility] Address [address] [place] [address] Care Team Providers Care Field Gauger Name Role Phone Zuly Johnson Primary Care Provider [phone] Encounter Details Date Type Department Care Team (Late st Contact Info) Description 07/11/2019 Abstract [facility] Oncology and Hematology - [place] [address] [place] [phone] Charlene Brandon DO NO ADDRESS ON FILE Social History Tobacco Use Types Packs/Day Years [...] filedocumented in this encounter Care Teams Field Gauger Relationship Specialty Start Date End Date Zuly Johnson FNP PCP - General NURSE PRACTITIONER 04/29/18 documented as of this encounter
--- OUTSIDE RECORDS SUMMARY | 2024-05-13 22:28 | XMS_ITS | Encounter Summary ---
Author Organization [facility] Address [address] [place] [address] Care Team Providers Care Schedule Maker Name Role Phone Zuly Johnson MILLER APPRENTICE Primary Care Provider [phone] Reason for Visit * Reason Onset Date Comments Breast pain and nipple discharge 02/17/2019 Encounter Details Date Type Department Care Team (Late st Contact Info) Description 02/17/2019 Telephone [facility] Breast Surgery [address] [place] [phone] Charlene Brandon DO NO ADDRESS ON FILE Breast pain and nipple discharge Social History Tobacco Use Types Packs/Day Years [...] encounter Miscellaneous Notes * Telephone Encounter - Rose Mary Johnson RN - 02/17/2019 9:34 AM CDT The patient called and stated she has been having left upper chest pain that goes under her arm. Ithas been going on for about 3 months and she is also still having the left breast nipple discharge.She said it has changed colors to a reddish orange. She has had a MMG and US done that came back negative. She would like to follow up with Dr. Brandon regarding these issues. I have scheduled her an appt. documented in this encounter Plan of Treatment Not on file documented as of this encounter Visit Diagnoses Not on filedocumented in this encounter Care Teams Schedule Maker Relationship Specialty Start Date End Date Zuly Johnson, DANELLE PCP - General NURSE PRACTITIONER 04/29/18 documented as of this encounter
--- OUTSIDE RECORDS SUMMARY | 2024-05-13 22:28 | XMS_ITS | Encounter Summary ---
Author Organization [facility] Address [address] [place] [address] Care Team Providers Care Sr. Director Product Management Name Role Phone Unavailable Primary Care Provider Unavailabl e Reason for Visit * Reason Onset Date Comments Breast Discharge 04/28/2018 See Note Encounter Details Date Type Department Care Team (Late st Contact Info) Description 04/28/2018 Telephone [facility] BREAST SURGERY [address] [place] [address] Charlene Brandon DO NO ADDRESS ON FILE Breast Discharge (See Note) Social History Tobacco Use Types Packs/Day Years Used Date Smoking Tobacco: Never Assessed Sex and Gender Information Value Date Recorded Sex Assigned at Not on file Gender Identity Not on file Sexual Orientation Not on file documented as of this encounter Miscellaneous Notes * Telephone Encounter - Lori Kent - 04/28/2018 4:21 PM CST Patient called in stating she had some left breast tenderness and soreness. She also complains of yellowish nipple discharge. She states the itching began on April 20 and the discharge started on April 25. She also stated that she had a MMG done at [facility] in mid 2017 for some bloody nipple discharge. I spoke with Dr. Brandon, who asked that she come in as soon as possible. Patient stated understanding and is coming in tomorrow Sunday April 29, 2018 at 3:30. I told the patient Dr. Brandon is sending a prescription for an antibiotic to her pharmacy and would like herto start taking this right away. Per Dr. Brandon. Patient stated she would go pick it up and start it tonight and plans to see us as soon as she's off work tomorrow. N WOOD SHADE ASSEMBLER documented in this encounter Plan of Treatment Not on file documented as of this encounter Visit Diagnoses Not on filedocumented in this encounter
--- OUTSIDE RECORDS SUMMARY | 2024-05-13 22:28 | XMS_ITS | Encounter Summary ---
Author Organization [facility] Address [address] [place] [address] Care Team Providers Care Doll Eye Setter Name Role Phone Zuly Johnson Primary Care Provider [phone] Encounter Details Date Type Department Care Team (Late st Contact Info) Description 04/28/2018 Orders Only [facility] BREAST SURGERY [address], [facility] [address] [place] [address] Charlene Brandon, DO NO ADDRESS ON FILE Social History [...] on filedocumented in this encounter Care Teams Doll Eye Setter Relationship Specialty Start Date End Date Zuly Johnson FNP PCP - General NURSE PRACTITIONER 04/29/18 documented as of this encounter
--- OUTSIDE RECORDS SUMMARY | 2024-05-13 22:28 | XMS_ITS | Encounter Summary ---
Author Organization [facility] Address [address] [place] [address] Care Team Providers Care Tiger Machine Operator Name Role Phone Zuly Johnson Primary Care Provider [phone] Encounter Details Date Type Department Care Team (Late st Contact Info) Description 05/12/2018 Orders Only [facility] BREAST SURGERY [address] [place] [address] Provider, Abstract NO ADDRESS ON FILE Social History Tobacco [...] Procedure Name Priority Date/Time Associated Diagnosis Comments MAMMO BREAST US LT COMPLETE Routine 06/24/2017 documented in this encounter Results * MAMMO BREAST US LT COMPLETE (06/24/2017) Anatomical Region Laterality Modality Breast Left Other Abstract Provider MAMMO ORDERABLES documented in this encounter Visit Diagnoses Not on filedocumented in this encounter Care Teams Tiger Machine Operator Relationship Specialty Start Date End Date Zuly Johnson FNP PCP - General NURSE PRACTITIONER 04/29/18 documented as of this encounter
--- OUTSIDE RECORDS SUMMARY | 2024-05-13 22:28 | XMS_ITS | Encounter Summary ---
Author Organization [facility] Address [address] [place] [address] Care Team Providers Care Data Collection Associate Name Role Phone Zuly Johnson DREDGE MATE Primary Care Provider [phone] Encounter Details Date Type Department Care Team (Late st Contact Info) Description 01/25/2019 Orders Only [facility] Breast Surgery [address] [place] [phone] Provider, Abstract NO ADDRESS ON FILE [...] Comments US BREAST UNI LT LTD Routine 01/20/2019 MAMMO DIAG BILAT 3D MOLINA W O R WO CAD Routine 01/20/2019 XR CHEST PA AND LATERAL 2 VW Routine 01/20/2019 documented in this encounter Results * US BREAST UNI LT LTD (01/20/2019) Anatomical Region Laterality Modality Left Other Abstract Provider US ORDERABLES * MAMMO DIAG BILAT 3D MOLINA W OR WO CAD (01/20/2019) Anatomical Region Laterality Modality Breast Bilateral Other Abstract Provider MAMMO ORDERABLES * XR CHEST PA AND LATERAL 2 VW (01/20/2019) Anatomical Region Laterality Modality Chest Other Abstract Provider DIAGNOSTIC IMAGING O RDERABLES documented in this encounter Visit Diagnoses Not on filedocumented in this encounter Care Teams Data Collection Associate Relationship Specialty Start Date End Date Zuly Johnson FNP PCP - General NURSE PRACTITIONER 04/29/18 documented as of this encounter
--- OUTSIDE RECORDS SUMMARY | 2024-05-13 22:28 | XMS_ITS | Encounter Summary ---
Author Organization [facility] Address [address] [place] [address] Care Team Providers Care Parts Salvager Name Role Phone Zuly Johnson Primary Care Provider [phone] Encounter Details Date Type Department Care Team (Late st Contact Info) Description 05/24/2018 Orders Only [facility] BREAST SURGERY [address] [place] [address] Provider, Abstract NO ADDRESS ON [...] Procedure Name Priority Date/Time Associated Diagnosis Comments PATHOLOGY Routine 05/17/2018 documented in this encounter Results * PATHOLOGY (05/17/2018) Tissue Abstract Provider PATHOLOGY/CYTOLOGY O RDERABLES [facility] documented in this encounter Visit Diagnoses Not on filedocumented in this encounter Care Teams Parts Salvager Relationship Specialty Start Date End Date Zuly Johnson FNP PCP - General NURSE PRACTITIONER 04/29/18 documented as of this encounter
--- OUTSIDE RECORDS SUMMARY | 2024-05-13 22:28 | XMS_ITS | Clinical Summary ---
Author Organization [facility] Address [address] [place] [address] Phone Care Team Providers Care Exposure Machine Operator Name Role Phone Martha Lawrence MD Primary Care Provider [phone] Allergies Active Allergy Reactions Criticality Noted Date Comments Oxycodone-Acetaminophen Diarrhea,Nausea And Vomiting,nausea,Vomi ting Low 03/26/2020 Penicillins Hives,Rash High 01/10/2016 Povidone-Iodine Medium 09/05/2020 Other reaction(s): Eye Itching, Eye Redness Sulfa Antibiotics Itching,Other (see comments),Rash Medium 04/29/2018 Other reaction(s): Eye Discomfort, Eye Itching, Urticaria Reaction: Conjunctivitis, ?? Medications Medication Sig Dispensed Refills Start Date End Date Status buPROPion XL (WELLBUTRIN XL) 150 MG 24 hr tablet 12/25/2020 Active spironolactone (ALDACTONE) 50 MG tablet 02/12/2021 Active Ozempic, 1 MG/DOSE, 4 MG/3ML solution pen-injector 12/24/2020 Active traZODone (DESYREL) 150 MG tablet 01/02/2021 Active montelukast (SINGULAIR) 10 MG tablet 01/28/2021 Active lamoTRIgine (LaMICtal) 100 MG tablet 01/02/2021 Active Esketamine HCl, 56 MG Dose, (Spravato, 56 MG Dose,) 28 MG/DEVICE solution therapy Spravato 56 mg (28 mg x 2) nasal spray Active Bystolic 5 MG tablet 01/28/2021 Acti ve clonazePAM (KlonoPIN) 0.5 MG tablet clonazepam 0.5 mg tablet TAKE 1 TABLET BY MOUTH EVERY DAY NEEDED Active ALPRAZolam (XANAX) 0.5 MG tablet alprazolam 0.5 mg tablet TAKE 1 TABLET BY MOUTH TWO TIMES DAILY NEEDED FOR ANXIETY 11/25/2020 Active fluticasone (FLONASE) 50 MCG/ACT nasal spray 04/14/2021 Active atomoxetine (STRATTERA) 25 MG capsule Take by mouth 1 (one) time each day 06/19/2021 Active ARIPiprazole (ABILIFY) 10 MG tablet 04/08/2021 Active escitalopram (LEXAPRO) 20 MG tablet Take 20 mg by mouth 1 (one) time each day 05/22/2021 Active Combigan 0.2-0.5 % ophthalmic solution INSTILL 1 DROP INTO RIGHT EYE 2 TIMES DAILY. 05/23/2021 Active Active Problems Problem Noted Date Diagnosed Date Gastroesophageal reflux disease 06/26/2014 Overview (02/26/2021): GERD (gastroesophageal reflux disease) GERD (gastroesophageal reflux disease) Vitamin D deficiency 05/14/2014 Overview (02/26/2021): Vitamin D deficiency Vitamin D deficiency Benign hypertension 09/23/2013 Overview (02/26/2021): BENIGN HYPERTENSION BENIGN HYPERTENSION Depressive disorder 09/23/2013 Overview (02/26/2021): DEPRESSIVE DISORDER NEC Generalized anxiety disorder 09/23/2013 Overview (02/26/2021): ANXIETY STATE NOS Impaired fasting glucose 09/23/2013 Overview (02/26/2021): IMPAIRED FASTING GLUCOSE IMPAIRED FASTING GLUCOSE Mixed hyperlipidemia 09/23/2013 Overview (02/26/2021): MIXED HYPERLIPIDEMIA MIXED HYPERLIPIDEMIA Iron deficiency anemia 02/18/2012 Overview (02/26/2021): Iron deficiency anemia Iron deficiency anemia Immunizations Name Administration Dates Next Due Influenza Split 05/12/2013 Influenza TIV (IM) 02/11/2021,03/11/2011 Influenza, Injectable, Quadrivalent 05/12/2013 Influenza, Recombinant, Inj, Preservative Free 0 05/14/2014 Influenza, Unspecified 03/22/2020 Tdap 07/24/2008 Family History Medical History Relation Comments Kidney disease Father Hypertension Mother Relation Status Comments Father Mother Social History Tobacco Use Types Packs/Day Years Used Date Smoking Tobacco: Never Smokeless Tobacco: Never Alcohol Use Standard Drinks/Week Comments Yes 0 (1 standard drink = 0.6 oz pur e alcohol) rare Sex and Gender Information Value Date Recorded Sex Assigned at Not on file Gender Identity Not on file Sexual Orientation Not on file Last Filed Vital Signs Vital Sign Reading Time Taken Comments Blood Pressure 122/72 07/07/2021 3:09 PM LABORATORY CUREMAN Pulse 72 07/07/2021 3:09 PM LABORATORY CUREMAN Temperature 36.5 ??C (97.7 ??F) 07/07/2021 3:09 PM CS T Respiratory Rate - - Oxygen Saturation - - Inhaled Oxygen Concentration - - Weight 113 kg (249 lb) 07/07/2021 3:09 PM LABORATORY CUREMAN Height 165.1 cm (5' 5 ) 07/07/2021 3:09 PM LABORATORY CUREMAN Body Mass Index 41.44 07/07/2021 3:09 PM LABORATORY CUREMAN Plan of Treatment Health Maintenance Due Date Last Done Comments Pneumococcal PPSV23 Highest Risk Adult (1 of 3 - PCV13) 01/13/2000 Influenza Vaccine (#1) 2024 , 03/22/2020, 05/12/2013, Additional history exists Care Teams Exposure Machine Operator Relationship Specialty Start Date End Date Martha Lawrence MD [address] [place] [address] PCP - General Internal Medicine 02/24/21
--- OUTSIDE RECORDS SUMMARY | 2024-05-13 22:28 | XMS_ITS | Encounter Summary ---
Author Organization [facility] Address [address] [place] [address] Phone Care Team Providers Care Speech Pathology Assistant Name Role Phone Martha Lawrence MD Primary Care Provider [phone] Encounter Details Date Type Department Care Team (Late st Contact Info) Description 06/05/2021 [facility] Nephrology and Hypertension [address] [facility], [address] [place] [address] Felisa Taylor MA Social History Tobacco Use Types Packs/Day [...] encounter Miscellaneous Notes * Telephone Encounter - Rajat Taylor MD - 06/08/2021 9:42 PM CST The 24hour urine was done last time. We have enough info * Telephone Encounter - Felisa Taylor MA - 06/05/2021 1:28 PM CST Pt had renal panel done for next visit but thought you wanted another 24 hour urine now as well? The order only had renal panel so I told her I would let her know if you wanted add'l tests done before the visit. documented in this encounter Plan of Treatment Not on file documented as of this encounter Visit Diagnoses Not on filedocumented in this encounter Care Teams Speech Pathology Assistant Relationship Specialty Start Date End Date Martha Lawrence MD 4 [facility] EXECUTIVE [place] [id number] PCP - General Internal Medicine 02/24/21 documented as of this encounter
--- OUTSIDE RECORDS SUMMARY | 2024-05-13 22:28 | XMS_ITS | Encounter Summary ---
Author Organization [facility] Address [address] [place] [address] Care Team Providers Care Wire Chief Name Role Phone Zuly Johnson MEDICAL SOCIAL WORKER Primary Care Provider [phone] Encounter Details Date Type Department Care Team (Late st Contact Info) Description 04/29/2018 Orders Only [facility] BREAST SURGERY [address] [place] [address] Provider, Abstract NO ADDRESS ON [...] Priority Date/Time Associated Diagnosis Comments US BREAST BILAT LIMITED Routine 01/03/2014 documented in this encounter Results * US BREAST BILAT LIMITED (01/03/2014) Anatomical Region Laterality Modality Breast Bilateral Other Abstract Provider US ORDERABLES documented in this encounter Visit Diagnoses Not on filedocumented in this encounter Care Teams Wire Chief Relationship Specialty Start Date End Date Zuly Johnson FNP PCP - General NURSE PRACTITIONER 04/29/18 documented as of this encounter
--- OUTSIDE RECORDS SUMMARY | 2024-05-13 22:28 | XMS_ITS | Encounter Summary ---
Author Organization [facility] Address [address] [place] [address] Phone Care Team Providers Care Courtesy Bus Driver Name Role Phone Martha Lawrence MD Primary Care Provider [phone] Encounter Details Date Type Department Care Team (Late st Contact Info) Description 03/26/2021 Telephone [facility] Nephrology and Hypertension [address] [facility], [address] [place] [address] Rajat Taylor MD [address] [facility], [address] [facility] [place] [address] Social History Tobacco Use Types Packs/Day Years [...] encounter Miscellaneous Notes * Telephone Encounter - Margy Alford - 03/26/2021 10:28 AM CST Pt lmor- wanted to let [facility] know her labs from Feb done thru her PCP are being faxed over documented in this encounter Plan of Treatment Not on file documented as of this encounter Visit Diagnoses Not on filedocumented in this encounter Care Teams Courtesy Bus Driver Relationship Specialty Start Date End Date Martha Lawrence MD [address] [facility] [place] [address] PCP - General Internal Medicine 02/24/21 documented as of this encounter
--- OUTSIDE RECORDS SUMMARY | 2024-05-13 22:28 | XMS_ITS | Encounter Summary ---
Author Organization [facility] Address [address] [place] [address] Care Team Providers Care Transportation Consultant Name Role Phone Zuly Johnson PHARMACY ASSISTANT Primary Care Provider [phone] Reason for Visit * Reason Comments Follow Up Bx f/u Encounter Details Date Type Department Care Team (Late st Contact Info) Description 05/24/2018 2:30 PM PSYCHOLOGICAL EXAMINER Office Visit [facility] BREAST SURGERY [address] [place] [address] Charlene Brandon DO NO ADDRESS ON FILE Duct ectasia of breast, left (Primary Dx); Mastodynia; Nipple discharge Social History Tobacco Use Types Packs/Day [...] Sign Reading Time Taken Comments Blood Pressure 139/95 05/24/2018 2:19 PM PSYCHOLOGICAL EXAMINER Pulse 108 05/24/2018 2:19 PM PSYCHOLOGICAL EXAMINER Temperature 36.9 ??C (98.5 ??F) 05/24/2018 2:19 PM CS T Respiratory Rate - - Oxygen Saturation 96% 05/24/2018 2:19 PM PSYCHOLOGICAL EXAMINER Inhaled Oxygen Concentration - - Weight 124.7 kg (274 lb 14.4 oz) 05/24/2018 2:19 PM PSYCHOLOGICAL EXAMINER Height 167.6 cm (5' 6 ) 05/24/2018 2:19 PM PSYCHOLOGICAL EXAMINER Body Mass Index 44.37 05/24/2018 2:19 PM PSYCHOLOGICAL EXAMINER documented in this encounter Progress Notes * Charlene Brandon DO - 05/24/2018 2:32 PM CST Chief Complaint Patient presents with ??? Follow Up Bx f/u Subjective: The patient states she is feeling well with no complaints. She has had no pain, no fevers related to the procedure. She states that she has noticed that the shooting breast discomfort shehas had appears to be hormonally driven. She has noted that this occurs about 2 days before ovulation and lost through the time of her ovulation. She has scheduled an appointment with Dr. Nguyen, endocrinology. PROCEDURE(s): 05/17/2018: Left breast ultrasound-guided vacuum-assisted core biopsy Pathology: Duct ectasia with mild chronic inflammation. Fragments of inspissated ductal secretions with pigmented macrophages. No evidence of malignancy 10/2011: Right duct excision Pathology: papilloma, chronic periductal inflammation ?? FHx: No breast carcinoma; ovarian ca: paternal GM dx unk age, passed 78yo; no other ca ?? Menarche 13, FDLMP 03/29/2018, premenopausal , FFTB n/a, breast fed n/a contraceptives: yes andOCPs 1 yr HRT no ?? Bra size: 38D ?? Ashkenazi heritage: no ?? Smoker: no BP (!) 139/95 (BP Location: Right arm, Patient Position (BP): Sitting, BP Cuff Size: Adult) Pulse(!) 108 Temp 98.5 ??F (36.9 ??C) (Oral) Ht 5' 6 (1.676 m) Wt 124.7 kg (274 lb 14.4 oz) [facility]05/11/2018 SpO2 96% BMI 44.37 kg/m?? Current Outpatient Prescriptions Medication Sig Dispense Refill [...] above. Immunizations: non-contributory PHYSICAL EXAM: BP (!) 139/95 (BP Location: Right arm, Patient Position (BP): Sitting, BP Cuff Size: Adult) Pulse(!) 108 Temp 98.5 ??F (36.9 ??C) (Oral) Ht 5' 6 (1.676 m) Wt 124.7 kg (274 lb 14.4 oz) LMP05/11/2018 SpO2 96% BMI 44.37 kg/m?? Breasts: The patient was examined in the seated and supine positions today. no cervical, supraclavicular, axillary lymphadenopathy. Breast symmetry: Breast larger than right Other findings: Left lower outer breast biopsy site is healing very nicely with no signs of infection, no erythema and no edema. General: well-developed, well-nourished HEENT: normocephalic/atraumatic. Extra-occular movements [...] oriented x 3. Most recent imaging was: Patient had diagnostic bilateral mammograms done at [facility] on June 24, 2017. The only prior [...] ASSESSMENT AND PLAN: Encounter Diagnoses Name Primary? Duct ectasia of breast, left Yes ??? Mastodynia ??? Nipple discharge Pathology and pathophysiology of duct ectasia and inspissated ductal secretions were discussed withthe patient. She understands that these are benign findings, and certainly explain the symptoms sheis exhibiting. The patient has not noted any further nipple discharge, and has stopped pushing on her nipple. The patient has realized that her breast pain is in fact hormonal in nature. She notices it the most around the time of ovulation. This is of course normal. I gave the patient the option of continuing to be seen on a yearly basis, or as needed. The patientunderstands that she will need a screening mammogram at 41 years of age. The patient states she prefers to be seen on an as-needed basis. She does have a primary care provider with whom she follows up on a yearly basis. She also will see Dr. Nguyen, endocrinology, in the near future. Questions were solicited and answered. The patient stated her understanding. HOLOGICAL EXAMINER documented in this encounter Plan of Treatment Not on file documented as of this encounter Visit Diagnoses Diagnosis Duct ectasia of breast, left- Primary Mastodynia Nipple discharge Other sign and symptom in breast documented in this encounter Care Teams Transportation Consultant Relationship Specialty Start Date End Date Zuly Johnson FNP PCP - General NURSE PRACTITIONER 04/29/18 documented as of this encounter
--- OUTSIDE RECORDS SUMMARY | 2024-05-13 22:28 | XMS_ITS | Encounter Summary ---
Author Organization [facility] Address [address] [place] [address] Phone Care Team Providers Care Signalman Name Role Phone Martha Lawrence MD Primary Care Provider [phone] Encounter Details Date Type Department Care Team (Late st Contact Info) Description 07/07/2021 3:00 PM DIGITAL MARKETING PROGRAM MANAGER Office Visit [facility] Nephrology and Hypertension [address] [place] [address], [address] [place] [address] Rajat Taylor MD [address] [facility], [address] [place] [address] Benign hypertension (Primary Dx); Vitamin D deficiency, not otherwise specified; Mixed hyperlipidemia Social History Tobacco Use Types Packs/Day Years [...] Comments Blood Pressure 122/72 07/07/2021 3:09 PM DIGITAL MARKETING PROGRAM MANAGER Pulse 72 07/07/2021 3:09 PM DIGITAL MARKETING PROGRAM MANAGER Temperature 36.5 ??C (97.7 ??F) 07/07/2021 3:09 PM CS T Respiratory Rate - - Oxygen Saturation - - Inhaled Oxygen Concentration - - Weight 113 kg (249 lb) 07/07/2021 3:09 PM DIGITAL MARKETING PROGRAM MANAGER Height 165.1 cm (5' 5 ) 07/07/2021 3:09 PM DIGITAL MARKETING PROGRAM MANAGER Body Mass Index 41.44 07/07/2021 3:09 PM DIGITAL MARKETING PROGRAM MANAGER documented in this encounter Progress Notes * Rajat Taylor MD - 07/07/2021 3:00 PM CST Cesario Jewell is a pleasant 41 y.o.female. Armida is a very pleasant lady who has an elevated creatinine. Urinating fine. Flow is good. Sometimes has a full bladder. Drinking a lot of water (80 ounces per day. She has an joseph). No NSAIDs.. Her urine is still yellow, not collorless. The patient says that she has hypertension. This has been going on for about 10 years. BP at home has been 120s/70s. The patient has polycystic ovarian syndrome. She used to be on Metformin for this but it was stopped because of her low GFR and now she is on nothing for this. The patient has pre-diabetes. She is on Ozempic for this. She started this when the Metformin was stopped. She is trying to lose weight. I told her that it is okay to go back to metformin since gfr is above 30. Past history: hypertension, diabetes, PCOS, obesity, elevated creatinine. Allergies Allergen Reactions ??? Penicillins Hives and Rash ??? Povidone-Iodine Other reaction(s): Eye Itching, Eye Redness ??? Sulfa Antibiotics Itching, Other (see comments) and Rash Other reaction(s): Eye Discomfort, Eye Itching, Urticaria Reaction: Conjunctivitis, ??? Oxycodone-Acetaminophen Diarrhea, Nausea And Vomiting, nausea and Vomiting Social History Tobacco Use ??? Smoking status: Never Smoker ??? Smokeless tobacco: Never Used Substance Use Topics ??? Alcohol use: Yes Comment: rare ??? Drug use: Never ROS Constitutional: Negative except as above Skin: Negative except as above Pulmonary: Negative except as above Urologic: Negative except as above BP 122/72 Pulse 72 Temp 97.7 ??F (36.5 ??C) Ht 5' 5 (1.651 m) Wt 249 lb (113 kg) BMI 41.44 kg/m?? BSA 2.28 m?? WDWN female in NAD Skin No rash Head NCAT Neck No nodes, No TMG Lungs Clear of crackles but slt wheezing on occasional breaths. Cor RRR no rub or gallop Abd BS+ nontender and soft. Ext No edema, Psyche normal not depressed or anxious Recent Labs: 06/30/19 Cr 1.01, Ins 41.1, vit d 29, Chol , 12/19/19 Hep B/C neg, HIV neg, 09/06/20 Cr 1.17, gfr >60, Co2 25, Na 135, Hb 13.9, A1c 4.9, Lab Results Component Value Date SPECGRAVUR 1.018 03/10/2021 PHUR 6.0 03/10/2021 GLUCOSEUR NEGATIVE 03/10/2021 BILIRUBINUR NEGATIVE 03/10/2021 KETONESUR NEGATIVE 03/10/2021 HGBUR NEGATIVE 03/10/2021 PROTUR 8 03/10/2021 PROTUR NEGATIVE 03/10/2021 NITRITEUR NEGATIVE 03/10/2021 ESTEE NEGATIVE 03/10/2021 ESR 5 03/10/2021 COMPLEMENTC3 174 03/10/2021 COMPLEMENTC4 35 03/10/2021 CH50 >60 (H) 03/10/2021 HEPCAB 0.01 03/10/2021 HCVAB NON-REACTIVE 03/10/2021 KLFREERATIO 1.23 03/10/2021 INTERPGYN Normal pattern. No monoclonal proteins detected. 03/10/2021 03/10/21 S+UIfx neg Lab Results Component Value Date BUN 7 06/04/2021 CREATININE 1.25 (H) 06/04/2021 EGFRAA 62 06/04/2021 EGFRAA 70 03/10/2021 EGFR 54 (L) 06/04/2021 EGFR 73 06/04/2021 EGFR 61 03/10/2021 PROTCREATUR 41 03/10/2021 PROTCREATUR 0.041 03/10/2021 NA 137 06/04/2021 K 4.3 06/04/2021 CL 101 06/04/2021 CO2 28 06/04/2021 CA 9.2 06/04/2021 PHOSPHATE 3.7 06/04/2021 ALBUMIN 4.2 06/04/2021 GLUCOSE 88 06/04/2021 PTH 47 03/10/2021 06/04/21 Cystatin C gfr 73 Imaging: Renal sono okay Impression: Armida has an elevated creatinine. Serology is negative. immunofix is negative UA is bland US is normal She has a mildly lower gfr than expected for her age. This is probalby due to the hypertension. To preserve renal function: Use SHAILESH/ARB No need since no dm or proteinuria. Call if either dx is made and we can add lisinopril Control bp thig is good Control Cholesterol Well controlled. Per PCP Low protein diet We discussed Maintain CO2 Avoid NSAIDs Stay well hydrated. The patients BMI is too high. Try to lose weight. Consider seeing a plastics process hand or PCP for help. Plan Same meds Lose weight Low protein diet RTC 6 months. Diagnoses and all orders for this visit: Benign hypertension - Renal Function Panel (RFP); Future - Total Protein w/ Creatinine, Urine, Random; Future Vitamin D deficiency, not otherwise specified Mixed hyperlipidemia Body mass index is 41.44 kg/m??. Follow up plan to address BMI is lose weight. . See above Assessment/Plan Diagnoses and all orders for this visit: Benign hypertension Vitamin D deficiency, not otherwise specified Mixed hyperlipidemia Body mass index is 41.44 kg/m??. Follow up plan to address BMI is lose weight. See above. [facility] documented in this encounter Plan of Treatment Scheduled Orders Name Type Priority Associated Diagnoses Orde r Schedule Renal Function Panel (RFP) Lab Routine Benign hypertension 1 Occurrences starting 07/07/2021 until 07/07/2022 Total Protein w/ Creatinine, Urine, Random Lab Routine Benign hypertension 1 Occurrences starting 07/07/2021 until 07/07/2022 documented as of this encounter Visit Diagnoses Diagnosis Benign hypertension- Primary Vitamin D deficiency, not otherwise specified Mixed hyperlipidemia documented in this encounter Care Teams Signalman Relationship Specialty Start Date End Date Martha Lawrence [place] [address] PCP - General Internal Medicine 02/24/21 documented as of this encounter
--- OUTSIDE RECORDS SUMMARY | 2024-05-13 22:28 | XMS_ITS | Clinical Summary ---
Author Organization [facility] Address [address] [place] [address] Care Team Providers Care Boiler Tube Reamer Name Role Phone Zuly Johnson Sushant RETAIL PLANNING MANAGER Primary Care Provider [phone] Allergies Active Allergy Reactions Criticality Noted Date Comments Penicillins Hives High 04/29/2018 Sulfa (Sulfonamide Antibiotics) Itching Low 04/10 Medications Medication Sig Dispensed Refills Start Date End Date Status venlafaxine (EFFEXOR) 75 mg tablet 03/07/2018 Active latanoprost (XALATAN) 0.005 % solution 03/05/2018 Active metFORMIN (GLUCOPHAGE XR) 500 mg Extended Release 24 hour tablet TAKE 2 TABLET(S) EVERY DAY BY ORAL ROUTE BEFORE MEALS FOR 30 DAYS. 1 12/09/2018 Active spironolactone (ALDACTONE) 50 mg tablet TAKE 1 TABLET BY MOUTH EVERY DAY IN THE MORNING 3 01/13/2019 Active montelukast (SINGULAIR) 10 mg tablet TAKE 1 TABLET BY MOUTH EVERY DAY IN THE EVENING 5 02/27/2019 Active ibuprofen (MOTRIN) 800 mg tablet TAKE 1 TABLET BY MOUTH THREE TIMES A DAY 0 02/25/2019 Active albuterol HFA 90 mcg inhaler 01/20/2019 Active cholecalciferol, vitamin D3, 5,000 unit Vitamin D3 5,000 unit tablet TAKE 1 TABLET BY MOUTH EVERY DAY IN THE MORNING Active amLODIPine (NORVASC) 10 mg tablet 03/13/2019 Active Active Problems Problem Noted Date Diagnosed Date Morbid obesity with body mass index of 40.0-49.9 03/16/2019 Lump of left breast 04/29/2018 Lump of right breast 04/29/2018 Mastodynia 04/29/2018 Nipple discharge 04/29/2018 Abnormal ultrasound of breast 04/29/2018 Social History Tobacco Use Types Packs/Day Years [...] Comments Blood Pressure 134/98 03/16/2019 2:45 PM SILO MAN Pulse 97 03/16/2019 2:45 PM SILO MAN Temperature 36.8 ??C (98.2 ??F) 03/16/2019 2:45 PM CS T Respiratory Rate - - Oxygen Saturation 98% 03/16/2019 2:45 PM SILO MAN Inhaled Oxygen Concentration - - Weight 112.9 kg (249 lb) 03/16/2019 2:45 PM SILO MAN Height 167.6 cm (5' 6 ) 03/16/2019 2:45 PM SILO MAN Body Mass Index 40.19 03/16/2019 2:45 PM SILO MAN Plan of Treatment Health Maintenance Due Date Last Done Comments Pre-Diabetes and Diabetes Screening 1981 HEPATITIS B VACCINES (1 of 3 - 19+ 3-dose series) 01/13/2000 CERVICAL CANCER SCREENING 2011 DTAP/TDAP/TD VACCINES (2 - T d or Tdap) 07/24/2018 07/24/2008 BREAST CANCER SCREENING 2021 01/20/2019 INFLUENZA VACCINE (#1) 2023 5, 03/11/2011 HPV VACCINES Aged Out No longer eligi ble based on patient's age to complete this topic PNEUMOCOCCAL VACCINE 0-64 YEARS Aged Out No longer eligible b ased on patient's age to complete this topic Procedures Procedure Name Priority Date/Time Associated Diagnosis Comments MAMMO DIAG BILAT 3D MOLINA W O R WO CAD Routine 01/20/2019 from Last 3 Months or Most Recently Relevant to Health Maintenance Results * MAMMO DIAG BILAT 3D MOLINA W OR WO CAD (01/20/2019) Anatomical Region Laterality Modality Breast Bilateral Other Abstract Provider MAMMO ORDERABLES from Last 3 Months or Most Recently Relevant to Health Maintenance Care Teams Boiler Tube Reamer Relationship Specialty Start Date End Date Zuly Johnson FNP PCP - General NURSE PRACTITIONER 04/29/18
--- OUTSIDE RECORDS SUMMARY | 2024-05-13 22:28 | XMS_ITS | Encounter Summary ---
Author Organization [facility] Address [address] [place] [address] Phone Care Team Providers Care Wood Tile Installation Helper Name Role Phone Martha Lawrence MD Primary Care Provider [phone] Encounter Details Date Type Department Care Team (Late st Contact Info) Description 04/21/2021 Telephone [facility] Nephrology and Hypertension [address] [facility], [address] [facility] [place] [address] Rajat Taylor MD [address] [facility], [address] [place] [address] Social History Tobacco Use Types Packs/Day Years [...] Telephone Encounter - Rajat Taylor MD - 04/21/2021 7:09 PM CST U/S negative. documented in this encounter Plan of Treatment Not on file documented as of this encounter Visit Diagnoses Not on filedocumented in this encounter Care Teams Wood Tile Installation Helper Relationship Specialty Start Date End Date Martha Lawrence MD [address] [place] [address] PCP - General Internal Medicine 02/24/21 documented as of this encounter
--- OUTSIDE RECORDS SUMMARY | 2024-05-13 22:28 | XMS_ITS | Encounter Summary ---
Author Organization [facility] Address [address] [place] [address] Phone Care Team Providers Care Prenatal Teacher Name Role Phone Martha Lawrence MD Primary Care Provider [phone] Encounter Details Date Type Department Care Team (Late st Contact Info) Description 03/14/2021 Telephone [facility] Nephrology and Hypertension [address] [facility], [address] [address] Rajat Taylor MD [address] [facility], [address] [facility] [place] [address] Social History Tobacco Use Types Packs/Day Years [...] * Telephone Encounter - Margy Alford - 03/14/2021 11:09 AM CDT Spoke w/ pt - wanted you to know she had labs done 03/10. nxt appt in Jun - please send nxt set of labs to [facility] Thank you documented in this encounter Plan of Treatment Not on file documented as of this encounter Procedures Procedure Name Priority Date/Time Associated Diagnosis Comments RENAL FUNCTION PANEL (RFP) Routine 06/04/2021 5:21 AM [facility] THREAD WINDER Nonspecific abnormal results of function study of kidney CYSTATIN W/ EGFR, SERUM Routine 06/04/2021 5:21 AM [facility] THREAD WINDER Nonspecific abnormal results of function study of kidney documented in this encounter Results * CYSTATIN W/ EGFR, SERUM (06/04/2021 5:21 AM [facility] THREAD WINDER) Cystatin C, Serum/Plasma 1.06 0.52 - 1.21 mg/L [facility] ([facility]) eGFR by Cystatin C 73 > OR = 60 mL/min/1.7 3m2 [facility] ([facility]) Blood (Blood, Venous) 06/04/2021 5:21 AM [facility] THREAD WINDER 06/04/2021 5:23 AM [facility] W[facility]ER Narrative Resulting Agency Comment Performing Organization Information: ?Site ID: [place] ?Name: [facility] ?Address: [address] [place] [address] [place] [address] ?Director: Shade Breaux D.O., MPH Rajat Taylor MD LAB BLOOD ORDERABLES [facility] ([facility]) * (ABNORMAL) Renal Function Panel (RFP) (06/04/2021 5:21 AM [facility] THREAD WINDER) Pathologist [facility] Glucose, Serum/Plasma 88 65 - 99 mg/dL [facility] ([facility]) Comment: ? Fasting reference interval Urea nitrogen, Serum/Plasma (BUN) 7 7 - 25 mg/dL [facility] ([facility]) Creatinine, Serum/Plasma 1.25(H) 0.50 - 1.10 mg/dL [facility] ([facility]) eGFR, non 54(L) > OR = 60 mL/min/1.7 3m2 [facility] ([facility]) eGFR, 62 > OR = 60 mL/min/1.7 3m2 [facility] ([facility]) Urea nitrogen/Creat inine, Serum/Plasma 6 6 - 22 (calc) [facility] ([facility]) Sodium, Serum/Plasma 137 135 - 146 mmol/L [facility] ([facility]) Potassium, Serum/Plasma 4.3 3.5 - 5.3 mmol/L [facility] ([facility]) Chloride, Serum/Plasma 101 98 - 110 mmol/L [facility] ([facility]) Carbon dioxide CO2), total, Serum/Plasma 28 20 - 32 mmol/L [facility] ([facility]) Calcium, Serum/Plasma 9.2 8.6 - 10.2 mg/dL [facility] ([facility]) Phosphate, Serum/Plasma 3.7 2.5 - 4.5 mg/dL [facility] ([facility]) Albumin, Serum/Plasma 4.2 3.6 - 5.1 g/dL [facility] ([facility]) Blood 06/04/2021 5:21 AM [facility] [employer] W[employer]ER 06/04/2021 5:23 AM [facility] Narrative Resulting Agency Comment Performing Organization Information: ?Site ID: [place] ?Name: [employer] ?Address: [address] [place] [address] ?Director: Shade Breaux D.O. MPH Rajat Taylor MD LAB BLOOD ORDERABLES [facility] documented in this encounter Visit Diagnoses Diagnosis Nonspecific abnormal results of function study of kidney- Primary documented in this encounter Care Teams Prenatal Teacher Relationship Specialty Start Date End Date Martha Lawrence MD [address] [place] [address] PCP - General Internal Medicine 02/24/21 documented as of this encounter
--- OUTSIDE RECORDS SUMMARY | 2024-05-13 22:29 | XMS_ITS | Encounter Summary ---
Author Organization [facility] utiyan Address [address] [address] Phone Care Team Providers Care Gas Producer Name Role Phone Martha Lawrence MD Primary Care Provider [phone] Encounter Details Date Type Department Care Team (Late st Contact Info) Description 02/26/2021 1:45 PM CDT Office Visit [facility] Nephrology and Hypertension [address] [place] [address], [address] [place], [place] [id number] Rajat Taylor MD [address] [facility], [address] [place] [address] Nonspecific abnormal results of function study of kidney (Primary Dx) Social History Tobacco Use Types [...] Sign Reading Time Taken Comments Blood Pressure 122/70 02/26/2021 2:06 PM CDT Pulse 72 02/26/2021 2:06 PM CDT Temperature 36.6 ??C (97.8 ??F) 02/26/2021 2:06 PM CD T Respiratory Rate - - Oxygen Saturation - - Inhaled Oxygen Concentration - - Weight 114 kg (251 lb) 02/26/2021 2:06 PM CDT Height 165.1 cm (5' 5 ) 02/26/2021 2:06 PM CDT Body Mass Index 41.77 02/26/2021 2:06 PM CDT documented in this encounter Progress Notes * Rajat Taylor MD - 02/26/2021 1:45 PM CDT Cesario Jewell is a pleasant 41 y.o.female. Armida is a very pleasant lady who has an elevated creatinine. She was in the hospital in September for mental issues. At that time they checked her creatinine and it was high. She was told to see her primary care physician. She was discharged in improved mental condition. She went to see her senior case manager a couple of months later and her creatinine was still high. Then she saw her primary care physician who rcih blood work and found that the creatinine continued to be high so she was sent for kidney evaluation. At the time of the visit the patient was feelingfine. There was no nausea, vomiting, diarrhea, fevers, chills, or other flu like illnesses. The patient has had no bloody urine, foamy urine, kidney stones, painful urination, or bladder infections. The patient is not taking any new medications or new over the counter meds. No NSAIDs reported. Her urine is almost never colorless. It is usually moderate to dark yellow. The patient says that she has hypertension. This has been going on for about 10 years. Her blood pressure has been very well-controlled. She???s never had a stroke or a heart attack. The patient has polycystic ovarian syndrome. She used to be on Metformin for this but it was stopped because of her low GFR and now she is on nothing for this. The patient has pre-diabetes. She is on Ozempic for this. She started this when the Metformin was stopped. She is trying to lose weight. Past history: hypertension, diabetes, PCOS, obesity, elevated [...] Never ROS Constitutional: Negative except as above Urologic: Negative except as above Pulmonary: Negative except as above Abdomen: Negative except as above Neuro: Negative except as above ENT: Negative except as above Endocrine: Negative except as above Psychiatric: Negative except as above Cardiac: Negative except as above Skin: Negative except as above Rheumatologic: Negative except as above BP 122/70 Pulse 72 Temp 97.8 ??F (36.6 ??C) Ht 5' 5 (1.651 m) Wt 251 lb (114 kg) BMI 41.77 kg/m?? BSA 2.29 m?? WDWN female in NAD Skin warm and dry, no rash Neck no nodes, no TMG or bruits Lungs Clear to ausc and percussion Cor RRR no rub or gallop Abd BS+ nontender and soft, no masses, HSM, or bruits. Ext No cyanosis, clubbing, or edema. Pulses 2+/= radial arteries Head NCAT Eyes normal sclerae and conjunctivae Back no CVAT Psyche: not anxious or depressed Neuro: A+O x 3, motor 5/5, cr ns 2-12 intact, reflexes 2+/= biceps and patellar tendons, Cb normal ELLE Recent Labs: 06/30/19 Cr 1.01, Ins 41.1, vit d 29, Chol 70/36/202, 12/19/19 Hep B/C neg, HIV neg, 09/06/20 Cr 1.17, gfr >60, Co2 25, Na 135, Hb 13.9, A1c 4.9, Imaging: Renal sono okay Impression: Armida has an elevated creatinine. She says that when the blood was drawn she had only been drinking about 1 quart per day. Her urine was dark yellow. It was also in the summer heat. I suspect that her higher creatinine is due to dehydration from not drinking enough fluid. I asked her to drink extra water for a couple of weeks and we can repeat this. The patient also has hypertension which can affect the kidneys as well. She said she had an ultrasound which was normal at [facility]. I will check into this. The patient has pre-diabetes which would normally not affect the kidneys. The patient is overweight and so could have FSGS but usually it comes with protein in the urine. Wewill check on this. There are other things that cause kidney disease as well, including glomerulonephritis, interstitial nephritis, obstruction, infiltration, stone disease, or cystic disease. These are unlikely becausethe patient has no sign or symptoms of any of these. To evaluate this I am going to get a renal panel, urinalysis, urine protein to creatinine ratio, ESTEE, ESR, complements, serum and urine immunofixation, kappa lambda ratio, and a renal ultrasound. We discussed ways to preserve renal function. We discussed the potential benefits of SHAILESH inhibitors and ARBs. The systolic blood pressure should be less than 140. The LDL cholesterol should be less than 100. We will check a PTH and vitamin D level to be sure these are in line. We discussed that the patient should stay off large amounts of protein in the diet. Try to stick toabout 7 ounces of chicken, fish, beef or pork per day. The patient should avoid nonsteroidal antiinflammatory agents. The patient should stay well hydrated. The sugars should be well controlled. The patients BMI is too high. Try to lose weight. Consider seeing a help desk technician or PCP for help. The patient will work on the diet and get the testing done. Followup in a few weeks for further evaluation. Pt was told that I will write a note or call them with results of tests done after the visit. If they do not get any notification within a week or two after the testing is done, then they should callfor results. Assessment/Plan Diagnoses and all orders for this visit: Nonspecific abnormal results of function study of kidney - Antinuclear Antibodies (ESTEE), IFA w/ Refl Titer and Pattern; Future - Complement C3 + C4; Future - Complement Total (CH50); Future - [place] and Lambda Free Light Chains, Qn, Serum; Future - Hepatitis C AB w/Refl To HCV RNA, QN, PCR, Serum; Future - Immunofixation, Serum; Future - Protein Electrophoresis with Immunofixation, Urine, 24 Hour; Future - PTH Intact w/o Calcium, Serum; Future - Renal Function Panel (RFP); Future - Erythrocyte Sedimentation Rate (ESR); Future - Total Protein w/ Creatinine, Urine, Random; Future - Urinalysis w/ Reflex to Microscopic; Future Body mass index is 41.77 kg/m??. Follow up plan to address BMI is lose weight. See above. documented in this encounter Plan of Treatment Not on file documented as of this encounter Procedures Procedure Name Priority Date/Time Associated Diagnosis Comments PROTEIN ELECTROPHORESIS WITH IMMUNOFIXATION, URINE, 24 HOUR Routine 03/10/2021 5:23 AM CDT Nonspecific abnormal results of function study of kidney KAPPA/LAMBDA FREE LIGHT CHAINS, QN, SERUM Routine 03/10/2021 5:19 AM CDT Nonspecific abnormal results of function study of kidney HEPATITIS C AB W/REFL TO HCV RNA, QN, PCR, SERUM Routine 03/10/2021 5:19 AM CDT Nonspecific abnormal results of function study of kidney TOTAL PROTEIN W/ CREATININE, URINE, RANDOM Routine 03/10/2021 5:19 AM CDT Nonspecific abnormal results of function study of kidney RENAL FUNCTION PANEL (RFP) Routine 03/10/2021 5:19 AM CDT Nonspecific abnormal results of function study of kidney URINALYSIS W/ REFLEX TO MICROSCOPIC Routine 03/10/2021 5:19 AM CDT Nonspecific abnormal results of function study of kidney COMPLEMENT C3 + C4 Routine 03/10/2021 5: 19 AM CDT Nonspecific abnormal results of function study of kidney ERYTHROCYTE SEDIMENTATION RATE (ESR) Routine 03/10/2021 5:19 AM CDT Nonspecific abnormal results of function study of kidney COMPLEMENT TOTAL (CH50) Routine 03/10/20 5:19 AM CDT Nonspecific abnormal results of function study of kidney IMMUNOFIXATION, SERUM Routine 03/10/2021 5:19 AM CDT Nonspecific abnormal results of function study of kidney ANTINUCLEAR ANTIBODIES (ESTEE), IFA W/ REFL TITER AND PATTERN Routine 03/10/2021 5:19 AM CDT Nonspecific abnormal results of function study of kidney PTH INTACT W/O CALCIUM, SERUM Routine 03/10/2021 5:19 AM CDT Nonspecific abnormal results of function study of kidney documented in this encounter Results * Protein Electrophoresis with Immunofixation, Urine, 24 Hour (03/10/2021 5:23 AM CDT) Albumin/Protein, total 0 % [facility]) Alpha 1 globulin/Protein, total 0 % [facility]) Alpha 2 globulin/Protein, total 0 % [facility]) Beta globulin/Protein, total 0 % [facility]) Gamma globulin/Protein, total 0 % [facility]) Protein Fractions, Urine [facility] Comment: Agarose electrophoresis of urine reveals that quantities of albumin and globulin fractions are below the level of detection by this method. No abnormal protein is observed. Immunofixation for Urine Normal pattern. No monoclonal proteins detected. [facility]) Creatinine, 24 hour Urine 1.43 0.50 - 2.15 g/[address] [facility]) Protein/Creatinine , 24 hour Urine NOTE < OR = 114 mg/g creat [facility]) Protein/Creatinine , 24 hour Urine NOTE < OR = 0.114 mg/mg creat [facility]) Protein, 24 hour Urine NOTE <150 mg/[address] [facility] Comment: THE PROTEIN VALUE IS LESS THAN 4 MG/DL THEREFORE WE ARE UNABLE TO CALCULATE EXCRETION AND/OR CREATININE RATIO. ?? Urine 03/10/2021 5:23 AM CDT 03/10/2021 5:23 AM CDT Narrative [facility] - 03/12/2021 3:20 PM CDT SPLIT 03/10/2021 FROM [id number] URINE VOLUME: 2500/24 Resulting Agency Comment Performing Organization Information: ?Site ID: [place] ?Name: [facility] ?Address: [address] [place] [address] ?Director: Shade Breaux D.O., MPH Rajat Taylor MD LAB URINE ORDERABLES Performing Organization Address City/[facility]/ZIP Co de Phone Number [facility]) * Urinalysis w/ Reflex to Microscopic (03/10/2021 5:19 AM CDT) Color of Urine YELLOW YELLOW [facility]) Appearance of Urine CLEAR CLEAR [facility]) Specific gravity of Urine 1.018 1.001 - 1.035 [facility]) pH of Urine 6.0 5.0 - 8.[address] [facility]) Glucose, Urine NEGATIVE NEGATIVE [facility]) Bilirubin, total, Urine NEGATIVE NEGATIVE [facility]) Ketones, Urine NEGATIVE NEGATIVE [facility]) Hemoglobin, Urine NEGATIVE NEGATIVE [facility]) Protein, Urine NEGATIVE NEGATIVE [facility]) Nitrite, Urine NEGATIVE NEGATIVE [facility]) Leukocyte esterase, Urine NEGATIVE NEGATIVE [facility]) Urine 03/10/2021 5:19 AM CDT 03/10/2021 5:20 AM CDT Narrative [facility] - 03/12/2021 12:57 PM CDT COLLECTION KIT GIVEN TO PATIENT. PATIENT ADVISED TO RETURN. URINE VOLUME: 2500/24 Resulting Agency Comment Performing Organization Information: ?Site ID: [place] ?Name: [facility] ?Address: [place] [address] ?Director: Shade Breaux D.O., MPH Rajat Taylor MD LAB URINE ORDERABLES Performing Organization Address City/[facility]/ZIP Co de Phone Number [facility]) * Total Protein w/ Creatinine, Urine, Random (03/10/2021 5:19 AM CDT) Creatinine, Urine 196 20 - 275 mg/dL [facility]) Protein/Creatin ine, Urine 41 21 - 161 mg/g creat [facility]) Protein/Creatin ine, Urine 0.041 0.021 - 0.161 mg/mg creat [facility]) Protein, Urine 8 5 - 24 mg/dL [facility]) 03/10/2021 5:19 AM CDT 03/10/2021 5:20 AM CDT Narrative [facility]) - 03/12/2021 12:57 PM CDT COLLECTION KIT GIVEN TO PATIENT. PATIENT ADVISED TO RETURN. URINE VOLUME: 2500/24 Resulting Agency Comment Performing Organization Information: ?Site ID: [place] ?Name: [facility] ?Address: [address] [place] [phone] ?Director: Shade Breaux D.O., MPH Rajat Taylor MD LAB URINE ORDERABLES [facility]) * Erythrocyte Sedimentation Rate (ESR) (03/10/2021 5:19 AM CDT) Erythrocyte sedimentation rate (ESR) 5 < OR = 20 mm/h [facility]) Blood 03/10/2021 5:19 AM CDT 03/10/2021 5:20 AM CDT Narrative [facility]) - 03/12/2021 12:57 PM CDT COLLECTION KIT GIVEN TO PATIENT. PATIENT ADVISED TO RETURN. URINE VOLUME: 2500/24 Resulting Agency Comment Performing Organization Information: ?Site ID: [id number] ?Name[facility] ?Address: [facility] [place] [address] ?Director: Paige Ruiz Rajat Taylor MD LAB BLOOD ORDERABLES [facility] * (ABNORMAL) Renal Function Panel (RFP) (03/10/2021 5:19 AM CDT) Glucose, Serum/Plasma 91 65 - 99 mg/dL [facility]) Comment: ? Fasting reference interval Urea nitrogen, Serum/Plasma (BUN) 7 7 - 25 mg/dL [facility]) Creatinine, Serum/Plasma 1.13(H) 0.50 - 1.10 mg/dL [facility]) eGFR, non 61 > OR = 60 mL/min/1.[address] [facility]) eGFR, 70 > OR = 60 mL/min/1.[address] [facility]) Urea nitrogen/Creat inine, Serum/Plasma 6 6 - 22 (calc) [facility]) Sodium, Serum/Plasma 139 135 - 146 mmol/L [facility]) Potassium, Serum/Plasma 3.8 3.5 - 5.3 mmol/L [facility]) Chloride, Serum/Plasma 104 98 - 110 mmol/L [facility]) Carbon dioxide CO2), total, Serum/Plasma 28 20 - 32 mmol/L [facility]) Calcium, Serum/Plasma 9.1 8.6 - 10.2 mg/dL [facility]) Phosphate, Serum/Plasma 3.4 2.5 - 4.5 mg/dL [facility]) Albumin, Serum/Plasma 4.2 3.6 - 5.1 g/dL [facility] Blood 03/10/2021 5:19 AM CDT 03/10/2021 5:20 AM CDT Narrative [facility] - 03/12/2021 12:57 PM CDT COLLECTION KIT GIVEN TO PATIENT. PATIENT ADVISED TO RETURN. URINE VOLUME: 2500/24 Resulting Agency Comment Performing Organization Information: ?Site ID: [place] ?Name: [facility] ?Address: [address] [place] [address] ?Director: Shade Breaux D.O., MPH Rajat Taylor MD LAB BLOOD ORDERABLES [facility] ([facility]) * PTH Intact w/o Calcium, Serum (03/10/2021 5:19 AM CDT) PTH, Intact, Serum/Plasma 47 14 - 64 pg/mL [facility]) Comment: Interpretive Guide ?Intact PTH ? Calcium ? ------- Normal Parathyroid ?Normal ? Normal Hypoparathyroidism ?Low or Low Normal ?Low Hyperparathyroidism ?? Primary ?Normal or High ? High ?? Secondary ?High ? Normal or Low ?? Tertiary ? High ? High Non-Parathyroid ?? Hypercalcemia ?Low or Low Normal ?High Blood 03/10/2021 5:19 AM CDT 03/10/2021 5:20 AM CDT Narrative [facility] ([facility]) - 03/12/2021 12:57 PM CDT COLLECTION KIT GIVEN TO PATIENT. PATIENT ADVISED TO RETURN. URINE VOLUME: 2500/24 Resulting Agency Comment Performing Organization Information: ?Site ID: [place] ?Name: [facility] ?Address: [facility] [place] [address] ?Director: Shade Breaux D.O., MPH Rajat Taylor MD LAB BLOOD ORDERABLES Performing Organization Address City/[facility]/ZIP Co de Phone Number [facility] ([facility]) * Immunofixation, Serum (03/10/2021 5:19 AM CDT) Immunofixation for Serum/Plasma Normal pattern. No monoclonal proteins detected. [facility] () Blood 03/10/2021 5:19 AM CDT 03/10/2021 5:20 AM CDT Narrative [facility] ([facility]) - 03/12/2021 12:57 PM CDT COLLECTION KIT GIVEN TO PATIENT. PATIENT ADVISED TO RETURN. URINE VOLUME: 2500/24 Resulting Agency Comment Performing Organization Information: ?Site ID: [place] ?Name: [facility] ?Address: [facility] [place] [address] ?Director: Shade Breaux D.O., MPH Rajat Taylor MD LAB URINE ORDERABLES [facility] ([facility]) * Hepatitis C AB w/Refl To HCV RNA, QN, PCR, Serum (03/10/2021 5:19 AM CDT) Hepatitis C virus Ab, Serum/Plasma NON-REACTI VE NON-REACT PRATIMA [facility] ([facility]) Hepatitis C virus Ab Signal/Cutoff, Serum/Plasma 0.01 <1.00 [facility] ([facility]) Comment: HCV antibody was non-reactive. There is no laboratory evidence of HCV infection. In most cases, no further action is required. However, if recent HCV exposure is suspected, a test for HCV RNA (test code 39520) is suggested. For additional information please refer to http://education.[employer]/faq/PCY79q7 (This link is being provided for informational/ educational purposes only.) 03/10/2021 5:19 AM CDT 03/10/2021 5:20 AM CDT Narrative [facility] ([facility]) - 03/12/2021 12:57 PM CDT COLLECTION KIT GIVEN TO PATIENT. PATIENT ADVISED TO RETURN. URINE VOLUME: 2500/24 Resulting Agency Comment Performing Organization Information: ?Site ID: [place] ?Name[facility] ?Address: [address] [place] [phone] ?Director: Shade Breaux D.O., MPH Rajat Taylor MD LAB BLOOD ORDERABLES [facility] * [place] and Lambda Free Light Chains, Qn, Serum (03/10/2021 5:19 AM CDT) [place] light chains, free, Serum 17.3 3.3 - 19.4 mg/L [facility] ([facility]) Lambda light chains, free, Serum/Plasma 14.1 5.7 - 26.3 mg/L [facility]) [place] light chains, free/Lambda light chains, free, Serum 1.23 0.26 - 1.65 [facility] ([facility]) Comment: Free kappa/lambda ratio in serum of normal individuals is 0.26-1.65. Excess production of free kappa or lambda chains can alter this ratio. Monoclonal free light chains are found in serum of patients with multiple myeloma, Waldenstrom's macroglobulinemia, mu-heavy chain disease, primary amyloidosis, light chain deposition disease, monoclonal gammopathy of undetermined significance, and lymphoproliferative disorders. Measurement of free light chain concentration in serum is useful for diagnosis, prognosis, monitoring disease activity and following response to therapy of these disorders. 03/10/2021 5:19 AM CDT 03/10/2021 5:20 AM CDT Narrative [email or web address]) - 03/12/2021 12:57 PM CDT COLLECTION KIT GIVEN TO PATIENT. PATIENT ADVISED TO RETURN. URINE VOLUME: 2500/24 Resulting Agency Comment Performing Organization Information: ?Site ID: [place] ?Name: [facility] ?Address: [address] [place] [address] [place] [address] ?Director: Shade Breaux D.O., MPH Rajat Taylor MD LAB BLOOD ORDERABLES Performing Organization Address City/[facility] Co de Phone Number [facility]) * (ABNORMAL) Complement Total (CH50) (03/10/2021 5:19 AM CDT) Complement total hemolytic CH50, Serum/Plasma >60(H) 31 - 60 U/mL [facility]) Blood 03/10/2021 5:19 AM CDT 03/10/2021 5:20 AM CDT Narrative [facility] ([facility]) - 03/12/2021 12:57 PM CDT COLLECTION KIT GIVEN TO PATIENT. PATIENT ADVISED TO RETURN. URINE VOLUME: 2500/24 Resulting Agency Comment Performing Organization Information: ?Site ID: [place] ?Name: [facility] ?Address: [facility] [place] [address] ?Director: Shade Breaux D.O., MPH Rajat Taylor MD LAB BLOOD ORDERABLES Performing Organization Address City/[facility] Co de Phone Number [facility]) * Complement C3 + C4 (03/10/2021 5:19 AM CDT) Complement C3, Serum/Plasma 174 83 - 193 mg/dL [facility]) Complement C4, Serum/Plasma 35 15 - 57 mg/dL [facility]) Blood 03/10/2021 5:19 AM CDT 03/10/2021 5:20 AM CDT Narrative [facility] ([facility]) - 03/12/2021 12:57 PM CDT COLLECTION KIT GIVEN TO PATIENT. PATIENT ADVISED TO RETURN. URINE VOLUME: 2500/24 Resulting Agency Comment Performing Organization Information: ?Site ID: [place] ?Name: [facility] ?Address: [address] [place] [address] [place] [address] ?Director: Shade Breaux D.O., MPH Rajat Taylor MD LAB BLOOD ORDERABLES [facility]) * Antinuclear Antibodies (ESTEE), IFA w/ Refl Titer and Pattern (03/10/2021 5:19 AM CDT) ESTEE, Serum NEGATIVE NEGATIVE [facility]. [facility] ([facility]) Comment: ESTEE IFA is a first line screen for detecting the presence of up to approximately 150 autoantibodies in various autoimmune diseases. A negative ESTEE IFA result suggests an ESTEE-associated autoimmune disease is not present at this time, but is not definitive. If there is high clinical suspicion for Sjogren's syndrome, testing for anti-SS-A/Ro antibody should be considered. Anti-Chapis-1 antibody should be considered for clinically suspected inflammatory myopathies. AC-0: Negative International Consensus on ESTEE Patterns (https://doi.org/10.1515/hasy-8720-3204) For additional information, please refer to http://education.[employer]/faq/KWZ484 (This link is being provided for informational/ educational purposes only.) ?? Blood 03/10/2021 5:19 AM CDT 03/10/2021 5:20 AM CDT Narrative [facility] ([facility]) - 03/12/2021 12:57 PM CDT COLLECTION KIT GIVEN TO PATIENT. PATIENT ADVISED TO RETURN. URINE VOLUME: 2500/24 Resulting Agency Comment Performing Organization Information: ?Site ID: [place] ?Name: [facility] ?Address: [address] [place] [address] ?Director: Shade Breaux D.O., MPH Rajat Taylor MD LAB BLOOD ORDERABLES [facility]) documented in this encounter Visit Diagnoses Diagnosis Nonspecific abnormal results of function study of kidney- Primary documented in this encounter Care Teams Gas Producer Relationship Specialty Start Date End Date Martha Lawrence MD [address] [place] [address] PCP - General Internal Medicine 02/24/21 documented as of this encounter
== END 2024-05-06 18:43 | disposition home or self-care (01) ==
PROVIDERS: Emergency Medicine; Emergency Provider Physician Assistant; PCP Internal Medicine
DX: M94.0 Chondrocostal junction syndrome [Tietze] (principal); I12.9 Hypertensive chronic kidney disease with stage 1 through stage 4 chronic kidney disease, or unspecified chronic kidney disease; N18.31 Chronic kidney disease, stage 3a; K86.81 Exocrine pancreatic insufficiency; K58.1 Irritable bowel syndrome with constipation; E28.2 Polycystic ovarian syndrome; F31.9 Bipolar disorder, unspecified; F41.8 Other specified anxiety disorders; F43.10 Post-traumatic stress disorder, unspecified; Z90.49 Acquired absence of other specified parts of digestive tract; Z77.29 Contact with and (suspected) exposure to other hazardous substances; Z79.899 Other long term (current) drug therapy; Z79.85 Long-term (current) use of injectable non-insulin antidiabetic drugs; R94.31 Abnormal electrocardiogram [ECG] [EKG]
CPT/HCPCS: 36415; 71046; 80053; 83690; 84484; 85025; 85380; 85610; 85730; 93005; 99284; A9270

== ENCOUNTER 2024-06-10 07:16 | Outpatient (CLI) | payer BC, OTHER, SELFPAY ==
--- OUTSIDE RECORDS SUMMARY | 2024-06-10 07:20 | XMS_ITS | Clinical Summary ---
Author Organization [facility] Address [address] [place] [address] Phone Care Team Providers Care Hospital Unit Coordinator Name Role Phone Martha Lawrence MD Primary Care Provider [phone] Allergies Active Allergy Reactions Criticality Noted Date [...] Comments Blood Pressure 122/72 07/07/2021 3:09 PM TRAVEL OCCUPATIONAL THERAPIST Pulse 72 07/07/2021 3:09 PM TRAVEL OCCUPATIONAL THERAPIST Temperature 36.5 ??C (97.7 ??F) 07/07/2021 3:09 PM CS T Respiratory Rate - - Oxygen Saturation - - Inhaled Oxygen Concentration - - Weight 113 kg (249 lb) 07/07/2021 3:09 PM TRAVEL OCCUPATIONAL THERAPIST Height 165.1 cm (5' 5 ) 07/07/2021 3:09 PM TRAVEL OCCUPATIONAL THERAPIST Body Mass Index 41.44 07/07/2021 3:09 PM TRAVEL OCCUPATIONAL THERAPIST Plan of Treatment Health Maintenance Due Date Last Done Comments Influenza Vaccine (#1) 2024 , 03/22/2020, 05/12/2013, Additional history exists Care Teams Hospital Unit Coordinator Relationship Specialty Start Date End Date Martha Lawrence MD [address] [facility] [address] PCP - General Internal Medicine 02/24/21
--- OUTSIDE RECORDS SUMMARY | 2024-06-10 07:20 | XMS_ITS | Clinical Summary ---
Author Organization [facility] Address [address] [place] [address] Phone Care Team Providers Care Chronometer Adjuster Name Role Phone Zoran Willams Unavailable Unavailable Martha Lawrence MD Primary Care Provider [phone] Allergies Active Allergy Reactions Criticality Noted Date Comments Apraclonidine Unknown 06/06/2024 Oxycodone-Acetaminophen Diarrhea,Nausea Only,Vomiting Low Penicillins Hives Medium Prazosin Unknown 09/20/2023 Semaglutide Stomach upset Low 06/06/2024 Sulfa (Sulfonamide Antibiotics) Eye irritation Low Sulfanilamide Other (See comments) Low Reaction: Conjunctivitis, Sulfasalazine Hives,Rash Medium Medications cholecalcifer ol (VITAMIN D-3) 5,000 unit tabletIndicat ions:Vitamin D Deficiency Take 1 tablet (5,000 Units total) by mouth every morning Active albuterol HFA (PROVENTIL HFA,VENTOLIN HFA,PROAIR HFA) 90 mcg/actuation inhalerIndica tions:Acute Asthma Attack Inhale 2 puffs every 6 (six) hours as needed 01/21/20 19 Active buPROPion XL (WELLBUTRIN XL) 150 mg 24 hr tabletIndicat ions:Anxiety with Depression Take 1 tablet (150 mg total) by mouth every morning Active escitalopram (LEXAPRO) 20 mg tabletIndicat ions:Anxiety with Depression Take 1 tablet (20 mg total) by mouth every morning Active montelukast (SINGULAIR) 10 mg tablet Take 1 tablet (10 mg total) by mouth nightly 10/31/19 20 Active nebivoloL (BYSTOLIC) 5 mg tabletIndicat ions:hyperten patsy Take 1 tablet (5 mg total) by mouth every morning 04/10/20 21 Active Vraylar 1.5 mg capsule TAKE 1 CAPSULE BY MOUTH EVERY DAY FOR 90 DAYS Active atomoxetine (STRATTERA) 25 mg capsule Take by mouth daily 06/19/19 22 Active latanoprost (XALATAN) 0.005 % ophthalmic solution Administer 1 drop into affected eye(s) nightly 06/26/19 22 Active pancrelipase (Zenpep) 40,000-126,00 0- 168,000 unit per capsule TAKE 2 CAPSULES WITH MEALS AND 1 CAPSULE WITH SNACKS Active Myfembree 40-1-0.5 mg tablet Take 1 tablet by mouth daily Active topiramate (TOPAMAX) 50 mg tabletIndicat ions:Binge Eating Disorder Take 1 tablet (50 mg total) by mouth 2 (two) times a day 180 tablet 1 06/06/192024 Active Mounjaro 10 mg/0.5 mL pen injector injectionIndi cations:Polyc ystic ovarian syndrome,Pred iabetes Inject 0.5 mL (10 mg total) under the skin every 7 days 2 mL 5 06/06/19 25 2024 Active Mounjaro 5 mg/0.5 mL pen injector injection INJECT 5 MG SUBCUTANEOUSLY WEEKLY 05/24/19 25 2024 Discontinued Active Problems Problem Noted Date Diagnosed Date [...] to include albumin milk. Okay to include Faroese yogurt Advise to look into intermittent fasting. Continue endurance and weight training Assessment & Plan (04/06/2023 4:26 PM SHELLFISH PROCESSING MACHINE TENDER): Counseled patient on diet and exercise Advised patient to stop added sugars, cutback on processed foods Include whole grain, fruits and vegetables, greens, lean, organic fashion chicken Cutback on red meat and processed meat Avoid animal daily products. Advised to include albumin milk. Okay to include Faroese yogurt Advise to look into intermittent fasting. Continue endurance and weight training Prediabetes 04/06/2023 Assessment & Plan (11/10/2023 12:19 PM CDT): Counseled on diet and exercise Continue mounjaro 5 mg subQ weekly Assessment & Plan (04/06/2023 4:26 PM SHELLFISH PROCESSING MACHINE TENDER): Counseled on diet and exercise Switch Ozempic [...] exercises Assessment & Plan (04/06/2023 4:26 PM SHELLFISH PROCESSING MACHINE TENDER): Counseled on diet and exercise as above [...] Nasal saline spray (Simply saline, Little Remedies, [place], [place]) 2 second sprays or 2 squeezes into each nostril while looking down over the sink, do not need to sniff in. Follow up in 6 months, earlier with any ear drainage 07/06/2019 T-tubes placed in Office Nipple discharge in female 12/12/2019 Acute recurrent maxillary sinusitis 05/26/2019 Assessment & Plan (05/26/2019 10:38 AM SHELLFISH PROCESSING MACHINE TENDER): Take Cefdinir with a meal daily Nasal saline spray (Simply saline, Little Remedies, [place], [place]) 2 second sprays or 2 squeezes into [...] placement ETD (Eustachian tube dysfunction), left 05/26/19 Assessment & Plan (08/13/2020 9:25 AM CDT): ?? 07/06/2019 T-tubes placed in Office Assessment & Plan (07/21/2019 9:18 AM CDT): Avoid ear cleaning techniques Avoid water to ears Follow up in 6 months, earlier with any ear drainage Assessment & Plan (07/07/2019 3:32 PM SHELLFISH PROCESSING MACHINE TENDER): Bilateral myringotomy with T-tube placement in Office today Risks and complications discussed including anesthesia, bleeding, infection, hearing loss, ear tubes may fall out early, fall inwards, stay in longer than a few years, get clogged, fall out and leave a hole in the ear drum that would need to be patched, drain clear fluid. Assessment & Plan (05/26/2019 10:38 AM SHELLFISH PROCESSING MACHINE TENDER): Take Cefdinir with a meal daily Nasal saline spray (Simply saline, Little Remedies, [place], [place]) 2 second sprays or 2 squeezes into [...] 05/26/2019 Assessment & Plan (05/26/2019 10:38 AM SHELLFISH PROCESSING MACHINE TENDER): Hearing test right before follow up Left ear pain 05/26/2019 Assessment & Plan (05/26/2019 8:08 PM SHELLFISH PROCESSING MACHINE TENDER): Take Cefdinir with a meal daily Nasal saline spray (Simply saline, Little Remedies, [place], [place]) 2 second sprays or 2 squeezes into [...] deficiency Assessment & Plan (04/06/2023 4:26 PM SHELLFISH PROCESSING MACHINE TENDER): Check levels and further plans based on [...] anemia 02/18/2012 Overview (08/13/2016): Iron deficiency anemia Encounters Date Type Department Care Team Description 06/07/2024 Telephone [facility] [address] [address] Bryn Peterson MD Med Management 06/06/2024 11:15 AM SHELLFISH PROCESSING MACHINE TENDER Office Visit [facility] [address] [address] Bryn Peterson MD Polycystic ovarian syndrome (Primary Dx); Prediabetes; Class 2 severe obesity due to excess calories with serious comorbidity and body mass index (BMI) of 37.0 to 37.9 in adult (HCC); Vitamin D deficiency; Severe binge-eating disorder from Last 3 Months Immunizations Name Administration Dates Next Due Influenza, [...] HISTORY myringotomy tubes: 1989 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 HISTORY 01-matting press tender: [facility] 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 HISTORY right lens implant -2011: Dr Barrios - [facility] 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 HISTORY 2019 breast bx R - benign 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 HISTORY milk duct removed right breast ; benign papilloma: Dr Alonso - [facility] 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 HISTORY left eye removed 02-10-12, prosthetic: Dr Fidel Hsu - [facility] 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 HISTORY 05/10/1982 - 05/09/1983 retinal reattachment TYMPANOSTOMY TUBE PLACEMENT 05/10/1992 - 05/09/1993 tubes in ears 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 HISTORY 05/10/2011 - 05/09/2012 Left eye removal 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 HISTORY 05/10/2011 - 05/09/2012 milk duct removal CATARACT EXTRACTION 1981 - 05/09/1982 Bilateral Cataract extraction TONSILLECTOMY AND ADENOIDECTOMY 05/10/2015 - 05/09/2016 BREAST BIOPSY 12/19/2019 Left UTERINE FIBROID SURGERY ROTATOR CUFF REPAIR Medical History Medical History Date Comments Hx Other Medical L/R cataract ex traction Hx Other Medical Detached Retina Hx Other Medical Scar tissure re moval Left Eye Hx Other Medical myringotomy tub es Hx Other Medical Menorrhagia Hx Other Medical [place] teeth ex traction 12/18 Hx Other Medical 01-matting press tender Hx Other Medical right lens impl ant [...] on file Legal Sex Female 10:37 AM SHELLFISH PROCESSING MACHINE TENDER Gender Identity Not on file Sexual Orientation Not on file Obstetrics History Last Filed Vital Signs Vital Sign Reading Time Taken Comments Blood Pressure 122/70 06/06/2024 11:03 AM SHELLFISH PROCESSING MACHINE TENDER Pulse 84 06/06/2024 11:03 AM SHELLFISH PROCESSING MACHINE TENDER Temperature 36.2 ??C (97.2 ??F) 05/19/2021 11:[address] Respiratory Rate 15 06/06/2024 11:03 AM SHELLFISH PROCESSING MACHINE TENDER Oxygen Saturation 100% 05/19/2021 11:45 AM SHELLFISH PROCESSING MACHINE TENDER Inhaled Oxygen Concentration - - Weight 106.6 kg (235 lb) 06/06/2024 11:03 AM SHELLFISH PROCESSING MACHINE TENDER Height 167.6 cm (5' 6 ) 06/06/2024 11:03 AM SHELLFISH PROCESSING MACHINE TENDER Body Mass Index 37.93 06/06/2024 11:03 AM SHELLFISH PROCESSING MACHINE TENDER Plan of Treatment Health Maintenance Due Date [...] Read Routine (OP Routine) 03/18/2021 3:39 PM SHELLFISH PROCESSING MACHINE TENDER Nipple discharge in female HEPATITIS C ANTIBODY Routine 12/19/2019 4:49 PM CDT from Last 3 Months or Most Recently Relevant to Health Maintenance Results * Diagnostic Mammogram Bilateral W Rm (03/18/2021 3:39 PM SHELLFISH PROCESSING MACHINE TENDER) Anatomical Region Laterality Modality Breast Bilateral Mammography 03/18/2021 4:19 PM SHELLFISH PROCESSING MACHINE TENDER Impressions 03/18/2021 4:52 PM SHELLFISH PROCESSING MACHINE TENDER 1. ??Two intraductal masses and/or debris within [...] Meryl Olguin M.D. Narrative 03/18/2021 4:52 PM SHELLFISH PROCESSING MACHINE TENDER EXAMINATION: BILATERAL DIGITAL DIAGNOSTIC MAMMOGRAM INCLUDING CAD [...] Hep C Ab Nonreactive Nonreactive [facility] ([place]) Comment: Interpretive Data Nonreactive: Antibodies to HCV [...] last revised on 2019. Testing performed by: [facility], [address] [place] [address], [place]., [address] Blood specimen (specimen) 12/19/2019 4:49 PM CDT 12/20/2019 9:45 AM CDT Kathryn Rosas MD LAB MICROBIOLOGY - GENERAL O RDERABLES Edited Result - Final [facility] ([place]) [facility] Department [place] [address] from Last 3 Months or Most Recently Relevant to Health Maintenance Insurance [employer] OOS CIG ALLEGIANCE [employer] OOS CIGNA ALLEGIANCE Care Teams Chronometer Adjuster Relationship Specialty Start Date End Date Martha Lawrence MD [address] [employer] [place] [address] PCP - General 02/24/19 Zoran Willams Family Medicine 05/18/18
--- OUTSIDE RECORDS SUMMARY | 2024-06-10 07:20 | XMS_ITS | Clinical Summary ---
Author Organization [facility] Address [address] [place] [address] Care Team Providers Care Chaplain Name Role Phone Zuly Jhonson Sushant CHEMISTRY ACCOUNT MANAGER Primary Care Provider [phone] Allergies Active Allergy Reactions Criticality Noted Date Comments Penicillins Hives High 04/29/2018 Sulfa (Sulfonamide Antibiotics) Itching Low 04/10 Medications venlafaxine (EFFEXOR) 75 mg tablet 03/07/2018 Active [...] Active albuterol HFA 90 mcg inhaler 01/20/2019 Acti ve cholecalciferol , vitamin D3, 5,000 unit Vitamin D3 5,000 [...] at Not on file Legal Sex Female 4:19 PM MILITARY SCIENCE INSTRUCTOR Gender Identity Not on file Sexual Orientation Not on file Last Filed Vital Signs Vital Sign Reading Time Taken Comments Blood Pressure 134/98 03/16/2019 2:45 PM MILITARY SCIENCE INSTRUCTOR Pulse 97 03/16/2019 2:45 PM MILITARY SCIENCE INSTRUCTOR Temperature 36.8 ??C (98.2 ??F) 03/16/2019 2:45 PM CS T Respiratory Rate - - Oxygen Saturation 98% 03/16/2019 2:45 PM MILITARY SCIENCE INSTRUCTOR Inhaled Oxygen Concentration - - Weight 112.9 kg (249 lb) 03/16/2019 2:45 PM MILITARY SCIENCE INSTRUCTOR Height 167.6 cm (5' 6 ) 03/16/2019 2:45 PM MILITARY SCIENCE INSTRUCTOR Body Mass Index 40.19 03/16/2019 2:45 PM MILITARY SCIENCE INSTRUCTOR Plan of Treatment Health Maintenance Due Date Last Done Comments Pre-Diabetes and Diabetes Screening 1981 HEPATITIS B VACCINES (1 of 3 - 19+ 3-dose series) 01/13/2000 CERVICAL CANCER SCREENING 2011 DTAP/TDAP/TD VACCINES (2 - Td or Tdap) 07/24/2018 07/24/2008 BREAST CANCER SCREENING [...] Anatomical Region Laterality Modality Breast Bilateral Other us Abstract Provider MAMMO ORDERABLES Final Result from Last 3 Months or Most Recently Relevant to Health Maintenance Insurance [employer] BLUE ACCESS/TRUE BLUE PPO Care Teams Chaplain Relationship Specialty Start Date End Date Zuly Johnson FNP PCP - General NURSE PRACTITIONER 04/29/18
--- OUTSIDE RECORDS SUMMARY | 2024-06-10 07:21 | XMS_ITS | Clinical Summary ---
Author Organization [facility] Address [address] [place] [address] Care Team Providers Care Truck Driving Instructor Name Role Phone Martha Lawrence MD Primary Care Provider [phone] Kathy Corley Unavailable [phone] Gibran David Unavailable Source Comments [facility],non-owned Affiliates and Associated Physician Practices is amultiple site organization consisting of ambulatory clinics and hospital sitesin [place], [place], [place] and [place]. This disclosure is being madepursuant to the Care Everywhere program and may not contain all information available regarding this patient. Last updated 18.[facility] Allergies Active Allergy Reactions Criticality Noted Date [...] tablet by mouth every morning Active Creon 6000-45305 units capsule 2 CAP ORALLY THREE TIMES A DAY FOR 1 MONTH DO NOT EXCEED 10,000 UNIT/KG LIPASE PER 24 HRS 04/05/2023 Active spironolactone (Aldactone) 100 MG tablet Take 1 (one) tablet by mouth every morning Active neomycin-polymyxin- dexameth (Maxitrol) ophthalmic ointment Instill into left eye 2 times daily as needed 3.5 g 3 06/22/2023 Active topiramate (Topamax) 100 MG tablet 06/07/2024 Active Active Problems Problem Noted Date Diagnosed [...] Nasal saline spray (Simply saline, Little Remedies, [place], [place]) 2 second sprays or 2 squeezes into each nostril while looking down over the sink, do not need to sniff in. Follow up in 6 months, earlier with any ear drainage 07/06/2019 T-tubes placed in Office Acute recurrent maxillary sinusitis 05/26/2019 Overview (03/26/2020): Last Assessment & Plan: Take Cefdinir with a meal daily Nasal saline spray (Simply saline, Little Remedies, [place], [place]) 2 second sprays or 2 squeezes into [...] Nasal saline spray (Simply saline, Little Remedies, [place], [place]) 2 second sprays or 2 squeezes into [...] 10:21 AM Congenital glaucoma of right eye Encounters Date Type Department Care Team Description 06/07/2024 1:00 PM SOUVENIR ASSEMBLER Office Visit [facility] - Ophthalmology [address] [place] [phone] Chrystal Roa MD History of vitrectomy (Primary Dx) 06/07/2024 12:45 PM SOUVENIR ASSEMBLER Clinical [facility] [address] [place] [phone] Chrystal Roa MD History of vitrectomy 06/07/2024 Travel from Last 3 Months Immunizations Name Administration Dates Next Due INFLUENZA VACCINE, TRIV. (AF LURIA, FLUZONE TRIVALENT; 6MO+) (IIV3) 03/11/2011 INFLUENZA VACCINE 03/22/2020 INFLUENZA VACCINE, QUADR. (A FLURIA, FLUZONE [...] 115.7 kg (255 lb) 04/21/2022 12:37 PM SOUVENIR ASSEMBLER Height 165.1 cm (5' 5 ) 04/21/2022 12:37 PM SOUVENIR ASSEMBLER Body Mass Index 42.43 04/21/2022 12:37 PM SOUVENIR ASSEMBLER Plan of Treatment Upcoming Encounters Date Type Department Care Team (Late st Contact Info) Description 06/23/2024 2:00 PM SOUVENIR ASSEMBLER Office Visit [facility] - Ophthalmology [address] [place] [phone] Fidel Moss MD [address] [place] [address] 06/06/2025 1:00 PM SOUVENIR ASSEMBLER Office Visit [facility] - Ophthalmology [address] [facility], [place] [address] Chrystal Roa MD [address] [facility] [place] [address] Health Maintenance Due Date Last Done Comments PAP SMEAR 1981 HIV SCREENING 01/13/1996 HEPATITIS C SCREENING 01/08/1999 HEPATITIS B VACCINE (1 of 3 - 19+ 3-dose series) 01/13/2000 DTAP/TDAP/TD VACCINES (2 - Td or Tdap) 07/24/2018 07/24/2008 MAMMOGRAM 03/18/2023 03/18/2021, 12/09, 12/12/2019, Additional history exists COVID-19 VACCINE ( - season) 2024 INFLUENZA VACCINE (#1) 2024 , 02/11/2021, 03/22/2020, Additional history exists DEPRESSION SCREENING 05/10/2024 04/29/2022, 04/27/2022, 04/21/2022, Additional history exists LIPID TESTING 04/01/2027 04/01/2022, 09/06/2020 ZOSTER VACCINE (1 of 2) 2031 HIB VACCINE Aged Out No longer eligi ble based on patient's age to complete this topic HPV VACCINE Aged Out No longer eligi ble based on patient's age to complete this topic MENINGOCOCCAL (Group B) VACCINE Aged Out No longer eligible based on patient's age to complete this topic MENINGOCOCCAL VACCINE Aged Out No thee annemarie eligible based on patient's age to complete this topic PNEUMOCOCCAL VACCINE Aged Out No long er eligible based on patient's age to complete this topic Medical Devices Implanted Type Area Registered Pharmacist Device Identifier Shelf Expiration Date Model / Serial / Lot Drain Glcm Thk.9mm Blnt Tpr Ahmed Flxb Implanted:Qty: 1 on 07/03/2020 by Franco Martinez MD at [facility] 04/30/2022 7 / / [id number] Graft Tissue Ttpl Ioptch Sclr .8x.5cm - [id number] Implanted:Qty: 1 on 07/03/2020 by Franco Martinez MD at [facility] [employer] 03/09/2025 [id number] / / [id number] Procedures Procedure Name Priority Date/Time Associated Diagnosis Comments LIPID PROFILE AM Draw 04/01/2022 6:23 AM SOUVENIR ASSEMBLER from Last 3 Months or Most Recently Relevant to Health Maintenance Results * (ABNORMAL) LIPID PROFILE (04/01/2022 6:23 AM SOUVENIR ASSEMBLER) Cholesterol 154 <200 mg/dL 04/01/2022 6:48 AM SOUVENIR ASSEMBLER [facility] Triglycerides 133 <150 mg/dL 04/01/2022 6:48 AM SOUVENIR ASSEMBLER [facility] HDL Cholesterol 35(L) >40 mg/dL 2 6:48 AM SOUVENIR ASSEMBLER [facility] LDL Calculated 92 <130 mg/dL 04/01/2022 6:48 AM SOUVENIR ASSEMBLER [facility] VLDL Calculated 27 <=30 mg/dL 2 6:48 AM SOUVENIR ASSEMBLER [facility] Chol HDL Ratio 4.4 <4.5 04/01/2022 6:48 AM SOUVENIR ASSEMBLER [facility] LDL/HDL Ratio 2.6 <5.0 04/01/2022 6:48 AM SOUVENIR ASSEMBLER [facility] Blood BLOOD SPECIMEN / Unknown Venipuncture / Unknown 04/01/2022 6:23 AM SOUVENIR ASSEMBLER 04/01/2022 6:29 AM SOUVENIR ASSEMBLER Shade Reddy MD LAB - CHEMISTRY ORDE BARTOLO [facility] Organization Address City/State/ZIP Co de Phone Number [facility] [address] [place] [address] from Last 3 Months or [...] 11:08 PM 09/09/2020 5:05 PM Care Teams Truck Driving Instructor Relationship Specialty Start Date End Date Martha Lawrence MD PCP - General 03/21/20 Kathy Corley, KIER HAND-FIELD ACCOUNT MANAGER [address] [place] [phone] Nurse Practitioner Ophthalmology 12/14/22 Gibran David [address] [facility] [address] [place] [address] 12/14/22
--- OUTSIDE RECORDS SUMMARY | 2024-06-10 07:21 | XMS_ITS | Patient Health Summary ---
Author Organization [facility] Address [address] [place] [address] Care Team Providers Care Long Line Teamster Name Role Phone Martha Lawrence MD Primary Care Provider Kathy Corley APRN-JUN Unavailable [phone] Gibran David Unavailable Note from [facility],non-owned Affiliates and Associated Physician Practices is amultiple site organization consisting of ambulatory clinics and hospital sitesin [place], [place], [place] and [place]. This disclosure is being madepursuant to the Care Everywhere program and may not contain all information available regarding this patient. Last updated 18.[facility] Allergies * Oxycodone-Acetaminophen(Diarrhea,Nausea and/or Vomiting,Vomiting) -Low [...] tablet by mouth every morning * Creon 6000-00287 units capsule(Started 04/05/2023) 2 CAP ORALLY THREE TIMES A DAY FOR 1 MONTH DO NOT EXCEED 10,000 UNIT/KG LIPASE PER 24 HRS * spironolactone (Aldactone) 100 MG tablet Take 1 (one) tablet by mouth every morning * cbfdklbx-lbyqqdclh-vyuvrvvz (Maxitrol) ophthalmic ointment(Started 06/22/2023) Instill into left eye 2 times daily as needed 3 refills by 06/21/2024 * topiramate (Topamax) 100 MG tablet(Started 06/07/2024) Active Problems Problem Noted Date Diagnosed Date [...] 09/23/2013 Major depressive disorder, recurrent episode, se caleb 09/23/2013 Impaired fasting glucose 09/23/2013 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/23/2013 Depressive disorder 09/23/2013 Iron deficiency anemia 02/18/2012 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 (AFLURIA, FLUZONE TRIVALENT; 6MO+) (IIV3)(Given 03/11/2011) * INFLUENZA VACCINE(Given 03/22/2020) * INFLUENZA VACCINE, QUADR. (AFLURIA, FLUZONE [...] 115.7 kg (255 lb) 04/21/2022 12:37 PM GROUND INSTRUCTOR ADVANCED Height 165.1 cm (5' 5 ) 04/21/2022 12:37 PM GROUND INSTRUCTOR ADVANCED Body Mass Index 42.43 04/21/2022 12:37 PM GROUND INSTRUCTOR ADVANCED Medical Devices Implanted Type Area Lye Machine Operator Device Identifier Shelf Expiration Date Model / Serial / Lot Drain Glcm Thk.9mm Blnt Tpr Ahmed Flxb Implanted:Qty: 1 on 07/03/2020 by Franco Martinez MD at [facility] 04/30/2022 FP7 / / [id number] Graft Tissue Ttpl Ioptch Sclr .8x.5cm - [id number] Implanted:Qty: 1 on 07/03/2020 by Franco Martinez MD at [facility] [employer] 03/09/2025 [id number] / / [id number] Procedures * RETINAL ANALYSIS OCT(Performed 06/07/2023) Performed [...] for vitreous floaters, right eye 04/18/2020 * [place] WATER SHUNT-EXTRAOCUL RESERV(Performed 09/23/2020) Performed for Secondary [...] * RETINAL ANALYSIS OCT (06/07/2023 12:59 PM GROUND INSTRUCTOR ADVANCED) Anatomical Region Laterality Modality Head External-Camera Photography Narrative 06/09/2023 1:29 PM GROUND INSTRUCTOR ADVANCED Images from the original result were not [...] XR CHEST 1VW PORTABLE (04/01/2022 1:27 PM GROUND INSTRUCTOR ADVANCED) Anatomical Region Laterality Modality Chest Radiographic Kitty ging 04/01/2022 1:28 PM GROUND INSTRUCTOR ADVANCED Impressions 04/01/2022 1:29 PM GROUND INSTRUCTOR ADVANCED IMPRESSION: No acute cardiopulmonary abnormalities. > Interpreting Provider: Sudhir Elmore MD on 04/01/2022 1:29 PM Narrative 04/01/2022 1:29 PM GROUND INSTRUCTOR ADVANCED PROCEDURE: ??XR CHEST 1VW PORTABLE, DATE/TIME OF EXAM: ??04/01/2022 1:27 PM, LOCATION ??[facility] INDICATION: Z01.818: Encounter for other preprocedural examination. Cough. ADDITIONAL CLINICAL INFORMATION: Ordering Provider Reason For Exam: Technologist Note: Additional: COMPARISON: None. FINDINGS: No consolidation, pleural effusion or pneumothorax is present. The heart size is normal. Procedure Note Sudhir Elmore MD - 04/01/2022 PROCEDURE: XR CHEST 1VW PORTABLE, DATE/TIME OF EXAM: 04/01/2022 1:27PM, LOCATION [facility] INDICATION: Z01.818: Encounter for other preprocedural examination. Cough. ADDITIONAL CLINICAL INFORMATION: Ordering Provider Reason For Exam: Technologist Note: Additional: COMPARISON: None. FINDINGS: No consolidation, pleural effusion or pneumothorax is present. The heart size is normal. IMPRESSION: No acute cardiopulmonary abnormalities. > Interpreting Provider: Sudhir Elmore MD on 04/01/2022 1:29 PM Shade Reddy MD DIAGNOSTIC IMAGING O RDERABLES * EKG 12-LEAD (04/01/2022 12:47 PM GROUND INSTRUCTOR ADVANCED) Ventricular Rate 67 BPM [facility] Atrial Rate 67 BPM [facility] P-R Interval 168 ms [facility] QRS Duration ms 82 ms [facility] Q-T Interval ms 406 ms [facility] QTC Calculation (Bezet) 429 ms [facility] Calculated P [place] 30 degrees [facility] Calculated R [place] 11 degrees [facility] Calculated T [place] 31 degrees [facility] Interpretation EKG Normal sinus rhythm Normal ECG No previous ECGs available Confirmed by EDA SALEH MD ([id number]) on 04/01/2022 8:22:15 PM [facility] MUSE 04/01/2022 12:4 7 PM GROUND INSTRUCTOR ADVANCED 04/01/2022 8:22 PM GROUND INSTRUCTOR ADVANCED Shade Reddy MD ECG ORDERABLES [facility] * URINALYSIS REFLEX TO MICROSCOPIC NO CULTURE (04/01/2022 8:52 AM GROUND INSTRUCTOR ADVANCED) Color UA Yellow Straw, Yellow 04/01/2022 9:11 AM GROUND INSTRUCTOR ADVANCED [facility] Clarity UA Clear Clear 04/01/2022 9:11 AM GROUND INSTRUCTOR ADVANCED [facility] Glucose UA Negative Negative 04/01/2022 9:11 AM GROUND INSTRUCTOR ADVANCED [facility] Bilirubin UA Negative Negative 04/01/2022 9:11 AM GROUND INSTRUCTOR ADVANCED [facility] Ketone UA Negative Negative 04/01/2022 9:11 AM GROUND INSTRUCTOR ADVANCED [facility] Specific [place] UA 1.012 1.005 - 1.030 04/01/2022 9:11 AM GROUND INSTRUCTOR ADVANCED [facility] Blood UA Negative Negative 04/01/2022 9:11 AM GROUND INSTRUCTOR ADVANCED [facility] pH UA 6.0 5.0 - 8.0 pH 04/01/2022 9:11 AM [facility] Protein UA Negative Negative 04/01/2022 9:11 AM GROUND INSTRUCTOR ADVANCED [facility] Urobilinogen UA Negative Negative mg/dL 04/01/2022 9:11 AM GROUND INSTRUCTOR ADVANCED [facility] Nitrite UA Negative Negative 04/01/2022 9:11 AM GROUND INSTRUCTOR ADVANCED [facility] Leukocyte UA Negative Negative 04/01/2022 9:11 AM GROUND INSTRUCTOR ADVANCED [facility] Urine Microscopy Urine microscopy not indicated 04/01/2022 9:11 AM [facility] Urine URINE SPECIMEN OBTAINED BY CLEAN CATCH PROCEDURE / Unknown Collection / Unknown 04/01/2022 8:52 AM GROUND INSTRUCTOR ADVANCED 04/01/2022 8:58 AM GROUND INSTRUCTOR ADVANCED Narrative [facility] - 04/01/2022 9:11 AM GROUND INSTRUCTOR ADVANCED Shade Reddy MD LAB - URINALYSIS ORD ERABLES Performing Organization Address City/[facility]/ZIP Co de Phone Number [facility] [address] [place], [place] [address] * HCG URINE QUALITATIVE (04/01/2022 8:52 AM GROUND INSTRUCTOR ADVANCED) Pathologist [facility] hCG Qualitative Urine Negative Negative 04/01/2022 9:06 AM [facility] Urine URINE / Unknown Collection / Unknown 04/01/2022 8:52 AM GROUND INSTRUCTOR ADVANCED 04/01/2022 8:58 AM GROUND INSTRUCTOR ADVANCED Shade Reddy MD LAB - URINALYSIS ORD ERABLES Performing Organization Address City/State/[facility] Co de Phone Number [facility] [address] [place] [address] * (ABNORMAL) URINE DRUG SCREEN IMMUNOASSAY (04/01/2022 8:52 AM GROUND INSTRUCTOR ADVANCED) [facility] Amphetamines Screen Urine Not detected Not detected 04/01/2022 9:16 AM [facility] Barbiturates Screen Urine Not detected Not detected 04/01/2022 9:16 AM [facility] Benzodiazepines Screen Urine Not detected Not detected 04/01/2022 9:16 AM [facility] Cannabinoids Screen Urine Detected(A) Not detected 04/01/2022 9:16 AM [facility] Cocaine Screen Urine Not detected Not detected 04/01/2022 9:16 AM [facility] Fentanyl Urine Detected(A) Not detected 04/01/2022 9:16 AM [facility] Methadone Screen Urine Not detected Not detected 04/01/2022 9:16 AM [facility] Opiate Screen Urine Not detected Not detected 04/01/2022 9:16 AM [facility] Phencyclidine Screen Urine Not detected Not detected 04/01/2022 9:16 AM [facility] Urine URINE / Unknown Collection / Unknown 04/01/2022 8:52 AM GROUND INSTRUCTOR ADVANCED 04/01/2022 8:58 AM [facility] Narrative [facility] - 04/01/2022 9:16 AM [facility] This drug screen is designed for MEDICAL [...] URINE CHEMISTR Y ORDERABLES Performing Organization Address [facility] de Phone Number [facility] [address] [place] [address] * SYPHILIS ANTIBODY CASCADING REFLEX (04/01/2022 6:23 AM GROUND INSTRUCTOR ADVANCED) Only the most recent of2 resultswithin the time period is included. Treponema pallidum Antibody Non Reactive Non Reactive 04/01/2022 12:08 PM GROUND INSTRUCTOR ADVANCED [facility] Comment: No Laboratory evidence of syphilis infection. ?? Note: ??Circulating antibodies may be low or undetectable in early infection. ??If recent exposure is suspected, re-draw sample in 2-4 weeks and repeat testing. Blood BLOOD SPECIMEN / Unknown Venipuncture / Unknown 04/01/2022 6:23 AM GROUND INSTRUCTOR ADVANCED 04/01/2022 6:29 AM GROUND INSTRUCTOR ADVANCED Shade Reddy MD LAB - SEROLOGY ORDER ELBERT Performing Organization Address [facility] de Phone Number [facility] [address] [place] [address] * TSH REFLEX FREE T4 (04/01/2022 6:23 AM GROUND INSTRUCTOR ADVANCED) Only the most recent of2 resultswithin the time period is included. TSH 1.258 0.350 - 4.940 uIU/mL 04/01/2022 7:08 AM GROUND INSTRUCTOR ADVANCED [facility] Blood BLOOD SPECIMEN / Unknown Venipuncture / Unknown 04/01/2022 6:23 AM GROUND INSTRUCTOR ADVANCED 04/01/2022 6:29 AM GROUND INSTRUCTOR ADVANCED Shade Reddy MD LAB - CHEMISTRY JENNIFER MCFARLAND Performing Organization Address [facility]/ZIP Co de Phone Number [facility] [address] [place] [address] * HEMOGLOBIN A1C (04/01/2022 6:23 AM GROUND INSTRUCTOR ADVANCED) Only the most recent of2 resultswithin the time period is included. Hemoglobin A1c 5.1 <5.7 % 04/01/2022 7:53 AM GROUND INSTRUCTOR ADVANCED [facility] Estimated Average Glucose 100 mg/dL 04/01/2022 7:53 AM [facility] Blood BLOOD SPECIMEN / Unknown Venipuncture / Unknown 04/01/2022 6:23 AM GROUND INSTRUCTOR ADVANCED 04/01/2022 6:29 AM GROUND INSTRUCTOR ADVANCED Narrative [facility] - 04/01/2022 7:53 AM GROUND INSTRUCTOR ADVANCED HbA1c Interpretation: Normal: < 5.7% Pre-diabetes: 5.7-6.4% [...] exceeds 5% in the specimen. The Sepulveda Needle Board Repairer assay for the measurement of HbA1c is a National Glycohemoglobin Standardization Program (NGSP) certified method. Shade Reddy MD LAB - CHEMISTRY JENNIFER MCFARLAND Performing Organization Address [facility]/ZIP Co de Phone Number [facility] [address] [place], [place] [id number] * (ABNORMAL) CBC W AUTO DIFFERENTIAL (04/01/2022 6:23 AM GROUND INSTRUCTOR ADVANCED) Only the most recent of2 resultswithin the time period is included. WBC 7.0 4.4 - 10.7 x10E9/L 04/01/2022 6:37 AM [facility] WBC Corrected 04/01/2022 6:37 AM [facility] RBC 5.39(H) 3.80 - 5.20 x10E12/L 04/01/2022 6:37 AM [facility] Hemoglobin 13.0 12.0 - 15.6 gm/dL 04/01/2022 6:37 AM [facility] Hematocrit 41.0 35.9 - 45.5 % 04/01/2022 6:37 AM [facility] MCV 76.1(L) 80.7 - 98.3 fl 04/01/2022 6:37 AM [facility] MCH 24.1(L) 26.7 - 34.0 pg 04/01/2022 6:37 AM [facility] MCHC 31.7 30.8 - 35.9 gm/dL 04/01/2022 6:37 AM [facility] Platelet Count 379 153 - 416 x10E9/L 04/01/2022 6:37 AM [facility] RDW-CV 14.7 12.1 - 14.9 % 04/01/2022 6:37 AM [facility] MPV 9.9 9.4 - 12.9 fl 04/01/2022 6:37 AM [facility] Neutrophils % 49.8 44.0 - 73.0 % 04/01/2022 6:37 AM [facility] Lymphocytes % 39.4 20.0 - 43.0 % 04/01/2022 6:37 AM [facility] Monocytes % 8.1 5.0 - 13.0 % 04/01/2022 6:37 AM [facility] Eosinophils % 1.4 0.0 - 6.0 % 04/01/2022 6:37 AM [facility] Basophils % 0.9 0.0 - 2.0 % 04/01/2022 6:37 AM [facility] Immature Granulocytes 0.4 0 - 1 % 04/01/2022 6:37 AM GROUND INSTRUCTOR ADVANCED [facility] Neutrophil Absolute 3.46 2.01 - 7.14 x10E9/L 04/01/2022 6:37 AM [facility] Lymphocytes Absolute 2.74 1.07 - 3.94 x10E9/L 04/01/2022 6:37 AM [facility] Monocytes Absolute 0.56 0.26 - 1.07 x10E9/L 04/01/2022 6:37 AM [facility] Eosinophils Absolute 0.10 0 - 0.47 x10E9/L 04/01/2022 6:37 AM [facility] Basophils Absolute 0.06 0 - 0.08 x10E9/L 04/01/2022 6:37 AM [facility] Immature Granulocytes Absolute 0.03 0.00 - 0.06 x10E9/L 04/01/2022 6:37 AM [facility] nRBC Auto 0 /100 WBC 04/01/2022 6:37 AM [facility] Blood BLOOD SPECIMEN / Unknown Venipuncture / Unknown 04/01/2022 6:23 AM GROUND INSTRUCTOR ADVANCED 04/01/2022 6:29 AM GROUND INSTRUCTOR ADVANCED Shade Reddy MD LAB - HEMATOLOGY ORD ERABLES Performing Organization Address City/State/[facility] Co de Phone Number [facility] [address] [place] [address] * (ABNORMAL) COMPREHENSIVE METABOLIC PANEL (04/01/2022 6:23 AM GROUND INSTRUCTOR ADVANCED) Only the most recent of2 resultswithin the time period is included. [facility] Glucose 87 70 - 105 mg/dL 04/01/2022 6:48 AM [facility] Sodium 139 136 - 145 mmol/L 04/01/2022 6:48 AM [facility] Potassium 4.4 3.5 - 5.1 mmol/L 04/01/2022 6:48 AM [facility] Chloride 105 98 - 107 mmol/L 04/01/2022 6:48 AM [facility] CO2 29 23 - 31 mmol/L 04/01/2022 6:48 AM [facility] Calcium 9.2 8.4 - 10.4 mg/dL 04/01/2022 6:48 AM [facility] Anion Gap 5(L) 8 - 18 mmol/L 04/01/2022 6:48 AM [facility] BUN 6(L) 7 - 18.7 mg/dL 04/01/2022 6:48 AM [facility] Creatinine 1.17(H) 0.57 - 1.11 mg/dL 04/01/2022 6:48 AM [facility] Alkaline Phosphatase 84 40 - 150 U/L 04/01/2022 6:48 AM [facility] ALT 14 0 - 61 U/L 04/01/2022 6:48 AM [facility] AST 17 5 - 34 U/L 04/01/2022 6:48 AM [facility] Protein Total 6.5 6.4 - 8.3 gm/dL 04/01/2022 6:48 AM [facility] Albumin 3.8 3.5 - 5.2 gm/dL 04/01/2022 6:48 AM [facility] Bilirubin Total 1.0 0.2 - 1.2 mg/dL 04/01/2022 6:48 AM [facility] eGFR by CKD-EPI 60(L) >=90 mL/min/1.7 3 m2 04/01/2022 6:48 AM [facility] Blood BLOOD SPECIMEN / Unknown Venipuncture / Unknown 04/01/2022 6:23 AM GROUND INSTRUCTOR ADVANCED 04/01/2022 6:29 AM [facility] Shade Reddy MD LAB - CHEMISTRY OR[facility] Organization Address City/State/[facility] Co de Phone Number [facility] [address] [place] [address] * (ABNORMAL) LIPID PROFILE (04/01/2022 6:23 AM [facility]) Only the most recent of2 resultswithin the time period is included. Cholesterol 154 <200 mg/dL 04/01/2022 6:48 AM [facility] Triglycerides 133 <150 mg/dL 04/01/2022 6:48 AM [facility] HDL Cholesterol 35(L) >40 mg/dL 6:48 AM [facility] LDL Calculated 92 <130 mg/dL 04/01/2022 6:48 AM GROUND INSTRUCTOR ADVANCED [facility] VLDL Calculated 27 <=30 mg/dL 6:48 AM GROUND INSTRUCTOR ADVANCED [facility] Chol HDL Ratio 4.4 <4.5 04/01/2022 6:48 AM GROUND INSTRUCTOR ADVANCED [facility] LDL/HDL Ratio 2.6 <5.0 04/01/2022 6:48 AM GROUND INSTRUCTOR ADVANCED [facility] Blood BLOOD SPECIMEN / Unknown Venipuncture / Unknown 04/01/2022 6:23 AM GROUND INSTRUCTOR ADVANCED 04/01/2022 6:29 AM GROUND INSTRUCTOR ADVANCED Shade Reddy MD LAB - CHEMISTRY JENNIFER MCFARLAND [facility] Organization Address City/State/ZIP Co de Phone Number [facility] [address] [place] [address] * [place] (09/11/2021 9:03 AM CDT) Anatomical Region Laterality Modality Other 09/11/2021 9:03 AM CDT Kaushik Bowser MD OPHTHALMOLOGY SE RVICES ORDERABLES * Color fundus photography (06/26/2021 8:11 AM GROUND INSTRUCTOR ADVANCED) Anatomical Region Laterality Modality Other 06/26/2021 8:11 AM GROUND INSTRUCTOR ADVANCED Kaushik Bowser MD OPHTHALMOLOGY SE RVICES ORDERABLES * OCT (06/26/2021 8:08 AM GROUND INSTRUCTOR ADVANCED) Anatomical Region Laterality Modality Other 06/26/2021 8:08 AM GROUND INSTRUCTOR ADVANCED Kaushik Bowser MD OPHTHALMOLOGY SE RVICES ORDERABLES * OCT (05/23/2021 9:05 AM GROUND INSTRUCTOR ADVANCED) Anatomical Region Laterality Modality Other 05/23/2021 9:05 AM GROUND INSTRUCTOR ADVANCED Chrystal Roa MD OPHTHALMOLOGY SERVIC ES ORDERABLES * LARYNGEAL MASK AIRWAY (09/23/2020 7:49 AM CDT) Narrative Gregory Trejo APRN-DIRECTOR INSTRUCTIONAL MATERIAL - 09/23/2020 7:49 AM CDT Gregory Trejo [...] Staff Section ?? Anesthesia Provider: Gregory Trejo APRN-CRNA, Performed the procedure Neyda Beavers MD GENERAL ANESTHESIA ORDERABLES * GLUCOSE - POINT OF CARE (09/23/2020 7:21 AM CDT) Only the most recent of2 resultswithin the time period is included. Glucose WB/POC 89 70 - 115 mg/dL 09/23/2020 9:21 AM CDT [facility] Specimen Type Venous 09/23/2020 9:21 AM CDT [facility] Blood BLOOD SPECIMEN / Unknown 09/23/2020 7:21 AM CDT 09/23/2020 9:21 AM CDT Fidel Moss MD LAB - POINT OF CARE ORDERABLES Performing Organization Address City/State/[facility] Co de Phone Number [facility] [address] [place] [phone], [facility] [phone] * HCG URINE QUALITATIVE - POCT (IP) INTERFACED (09/23/2020 6:43 AM CDT) Only the most recent of3 resultswithin the time period is included. HCG Qual Urine Negative Negative 09/23/2020 6:49 AM CDT [facility] Urine URINE / Unknown 09/23/2020 6 :43 AM CDT 09/23/2020 6:49 AM CDT Fidel Moss MD LAB - POINT OF CARE ORDERABLES [facility] [address] [place] [address], [facility] [phone] * LAMOTRIGINE LEVEL (09/06/2020 12:31 AM CDT) Pathologist [facility] Lamotrigine 3.0 2.0 - 20.0 ug/mL 09/09/2020 6:07 PM CDT [facility] Comment:Detection Limit = 1. 0 Blood BLOOD SPECIMEN / Unknown Venipuncture / Unknown 09/06/2020 12:31 AM CDT 09/06/2020 12:54 AM CDT Narrative [facility] - 09/09/2020 6:07 PM CDT Performed at: ??01 - [address] ??[id number] Incinerator Attendant: Shena Dalton MD, Phone: ??[phone] Estefany Valle FORECAST ANALYST-EDGING SUPERVISOR LAB - THERAPEUTI C DRUG MONITORING ORDERABLES Performing Organization Address City/[facility]/ZIP Co de Phone Number [facility] [address] [place] [address] * SARS-COV-2 (COVID-19) RAPID (09/05/2020 3:05 PM CDT) [facility] COVID-19 PCR Not detected Not detected 09/06/19 21 3:55 PM CDT [facility] Microbiology SPECIMEN FROM NASOPHARYNGEAL STRUCTURE / Unknown Collection / Unknown 09/05/2020 3:05 PM CDT 09/05/2020 3:11 PM CDT Fabiano Ponce DO LAB - MICROBIOLOGY O RDERABLES [facility] [address] [place] [address] * OPH OCT TEST SLU (08/26/2020 9:04 AM CDT) Anatomical Region Laterality Modality Other 08/26/2020 9:04 AM CDT Chrystal Roa MD OPHTHALMOLOGY SERVIC ES ORDERABLES * HCG URINE QUAL POCT NOTIFICATION (07/03/2020 11:51 AM GROUND INSTRUCTOR ADVANCED) Only the most recent of2 resultswithin the time period is included. Comment Notification Label Only - See Separate Report 07/03/2020 1:01 PM GROUND INSTRUCTOR ADVANCED [facility] Urine URINE / Unknown 07/03/2020 1 1:51 AM GROUND INSTRUCTOR ADVANCED 07/03/2020 11:55 AM GROUND INSTRUCTOR ADVANCED Fidel Moss MD LAB - URINALYSIS ORD ERABLES [facility] [address] [place] [address], [facility] [phone] * OPH VISUAL FIELD TEST [facility]U (06/21/2020 8:01 AM GROUND INSTRUCTOR ADVANCED) Anatomical Region Laterality Modality Other 06/21/2020 8:01 AM GROUND INSTRUCTOR ADVANCED Fidel Moss MD OPHTHALMOLOGY SERVIC ES ORDERABLES * OPH OCT TEST [facility] (05/27/2020 10:37 AM GROUND INSTRUCTOR ADVANCED) Anatomical Region Laterality Modality Other 05/27/2020 10:3 7 AM GROUND INSTRUCTOR ADVANCED Chrystal Roa MD OPHTHALMOLOGY SERVIC ES ORDERABLES * LARYNGEAL MASK AIRWAY (04/18/2020 8:03 AM GROUND INSTRUCTOR ADVANCED) Narrative Kriss Katz Anes Asst - 04/18/2020 8:03 AM GROUND INSTRUCTOR ADVANCED Kriss Katz Anes Asst ? 04/18/2020 ??8:03 [...] OPH OCT TEST SLU (04/10/2020 1:09 PM GROUND INSTRUCTOR ADVANCED) Anatomical Region Laterality Modality Other 04/10/2020 1:09 PM GROUND INSTRUCTOR ADVANCED Chrystal Roa MD OPHTHALMOLOGY SERVIC ES ORDERABLES * OCT (03/26/2020 1:04 PM GROUND INSTRUCTOR ADVANCED) Anatomical Region Laterality Modality Other 03/26/2020 1:04 PM GROUND INSTRUCTOR ADVANCED Kasey Brar MD OPHTHALMOLOGY SERV ICES ORDERABLES * STREP A SCREEN - POINT OF CARE (AMB) STL (06/25/2017) Strep A Rapid POCT Negative Negative Strep A Internal Control Present Lot # [id number] Expiration Date [address] Throat ENTIRE THROAT (SURFACE REGION OF NECK) / Unknown 06/25/2017 Rea Craven APRN-EDGING SUPERVISOR LAB - POINT OF CARE ORDERABLES Care Teams Long Line Teamster Relationship Specialty Start Date End Date Martha Lawrence MD PCP - General 03/21/20 Kathy Corley FORECAST ANALYST-EDGING SUPERVISOR [address] [place] [address] Nurse Practitioner Ophthalmology 12/14/22 Gibran David [address] [place] [address] 12/14/22
--- OUTSIDE RECORDS SUMMARY | 2024-06-10 07:21 | XMS_ITS | Referral Summary ---
Author Organization [facility] Address [address] [place] [address] Care Team Providers Care Curb Supervisor Name Role Phone Martha Lawrence MD Primary Care Provider [phone] Kathy Corley Unavailable [phone] Gibran David Unavailable Source Comments [facility],non-owned Affiliates and Associated Physician Practices is amultiple site organization consisting of ambulatory clinics and hospital sitesin [place], [place], [place] and [place]. This disclosure is being madepursuant to the Care Everywhere program and may not contain all information available regarding this patient. Last updated 18.[facility] Encounters Date Type Department Care Team Description 06/07/2024 12:45 PM CHANNEL MACHINE OPERATOR Clinical Support [facility] - Ophthalmology [address] [place] [phone] Chrystal Roa MD History of vitrectomy 06/07/2024 Travel 06/07/2024 1:00 PM CHANNEL MACHINE OPERATOR Office Visit [facility] [address] [place] [phone] Chrystal Roa MD History of vitrectomy (Primary Dx) from Last 3 Months Allergies Active Allergy Reactions Criticality Noted Date [...] tablet by mouth every morning Active Creon 6000-09356 units capsule 2 CAP ORALLY THREE TIMES [...] Nasal saline spray (Simply saline, Little Remedies, [place], [place]) 2 second sprays or 2 squeezes into each nostril while looking down over the sink, do not need to sniff in. Follow up in 6 months, earlier with any ear drainage 07/06/2019 T-tubes placed in Office Acute recurrent maxillary sinusitis 05/26/2019 Overview (03/26/2020): Last Assessment & Plan: Take Cefdinir with a meal daily Nasal saline spray (Simply saline, Little Remedies, [place], [place]) 2 second sprays or 2 squeezes into [...] Nasal saline spray (Simply saline, Little Remedies, [place], [place]) 2 second sprays or 2 squeezes into [...] 115.7 kg (255 lb) 04/21/2022 12:37 PM CHANNEL MACHINE OPERATOR Height 165.1 cm (5' 5 ) 04/21/2022 12:37 PM CHANNEL MACHINE OPERATOR Body Mass Index 42.43 04/21/2022 12:37 PM CHANNEL MACHINE OPERATOR Functional Status Functional Status Response Date of [...] st Contact Info) Description 06/23/2024 2:00 PM CHANNEL MACHINE OPERATOR Office Visit [facility] [address] [place] [phone] Fidel Moss MD [address] [place] [phone] 06/06/2025 1:00 PM CHANNEL MACHINE OPERATOR Office Visit [facility] - Op[facility]mology [address] [place] [phone] Chrystal Roa MD [address] [place] [address] [place] [address] Medical Devices Implanted Type Area Filter Tank Tender Device Identifier Shelf Expiration Date Model / Serial / Lot Drain Glcm Thk.9mm Blnt Tpr Ahmed Flxb Implanted:Qty: 1 on 07/03/2020 by Franco Martinez MD at [facility] 04/30/2022 FP7 / / [id number] Graft Tissue Ttpl Ioptch Sclr .8x.5cm - [id number] Implanted:Qty: 1 on 07/03/2020 by Franco Martinez MD at [facility] [employer] 03/09/2025 [id number] / / [id number] Procedures Procedure Name Priority Date/Time Associated Diagnosis Comments LIPID PROFILE AM Draw 04/01/2022 6:23 AM CHANNEL MACHINE OPERATOR from Last 3 Months or Most Recently Relevant to Health Maintenance Results * (ABNORMAL) LIPID PROFILE (04/01/2022 6:23 AM CHANNEL MACHINE OPERATOR) Cholesterol 154 <200 mg/dL 04/01/2022 6:48 AM CHANNEL MACHINE OPERATOR [facility] Triglycerides 133 <150 mg/dL 04/01/2022 6:48 AM CHANNEL MACHINE OPERATOR [facility] HDL Cholesterol 35(L) >40 mg/dL 11/23/202 2 6:48 AM CHANNEL MACHINE OPERATOR [facility] LDL Calculated 92 <130 mg/dL 04/01/2022 6:48 AM CHANNEL MACHINE OPERATOR [facility] VLDL Calculated 27 <=30 mg/dL 2 6:48 AM CHANNEL MACHINE OPERATOR [facility] Chol HDL Ratio 4.4 <4.5 04/01/2022 6:48 AM CHANNEL MACHINE OPERATOR [facility] LDL/HDL Ratio 2.6 <5.0 04/01/2022 6:48 AM CHANNEL MACHINE OPERATOR [facility] Blood BLOOD SPECIMEN / Unknown Venipuncture / Unknown 04/01/2022 6:23 AM CHANNEL MACHINE OPERATOR 04/01/2022 6:29 AM CHANNEL MACHINE OPERATOR Shade Reddy MD LAB - CHEMISTRY [facility] Organization Address City/State/ZIP Co de Phone Number [facility] [address] [place] [address] from Last 3 Months or Most Recently Relevant to Health Maintenance Advance Directives * Full Code (Latest Code Status on File) Date Activated Date Inactivated Comments 03/31/2022 8:46 PM 04/03/2022 5:55 PM * Full Code Date Activated Date Inactivated Comments 03/31/2022 6:15 PM 03/31/2022 7:59 PM * Full Code Date Activated Date Inactivated Comments 09/05/2020 11:08 PM 09/09/2020 5:05 PM Care Teams Curb Supervisor Relationship Specialty Start Date End Date Martha Lawrence MD PCP - General 03/21/20 Kathy Corley, [employer] [address] [facility] [place] [address] Nurse Practitioner Ophthalmology 12/14/22 Gibran David [address] [address] 12/14/22
--- OUTSIDE RECORDS SUMMARY | 2024-06-10 07:21 | XMS_ITS | Referral Summary ---
Author Organization [facility] Address [address] [place] [address] Phone Care Team Providers Care Furnace Tender Name Role Phone Zoran Willams Unavailable Unavailable Martha Lawrence MD Primary Care Provider [phone] Encounters Date Type Department Care Team Description 06/07/2024 Telephone [facility] [address] [phone] Bryn Peterson MD Med Management 06/06/2024 11:15 AM DRY CLEANING MACHINE OPERATOR Office Visit [facility] [address] [address] Bryn Peterson MD Polycystic ovarian syndrome (Primary Dx); Prediabetes; Class 2 severe obesity due to excess calories with serious comorbidity and body mass index (BMI) of 37.0 to 37.9 in adult (HCC); Vitamin D deficiency; Severe binge-eating disorder from Last 3 Months Allergies Active Allergy [...] (two) times a day 180 tablet 1 06/06/19 25 2024 Active Mounjaro 10 mg/0.5 mL pen injector [...] to include albumin milk. Okay to include [place] yogurt Advise to look into intermittent fasting. Continue endurance and weight training Assessment & Plan (04/06/2023 4:26 PM DRY CLEANING MACHINE OPERATOR): Counseled patient on diet and exercise Advised patient to stop added sugars, cutback on processed foods Include whole grain, fruits and vegetables, greens, lean, organic fashion chicken Cutback on red meat and processed meat Avoid animal daily products. Advised to include albumin milk. Okay to include [place] yogurt Advise to look into intermittent fasting. Continue endurance and weight training Prediabetes 04/06/2023 Assessment & Plan (11/10/2023 12:19 PM CDT): Counseled on diet and exercise Continue mounjaro 5 mg subQ weekly Assessment & Plan (04/06/2023 4:26 PM DRY CLEANING MACHINE OPERATOR): Counseled on diet and exercise Switch Ozempic [...] exercises Assessment & Plan (04/06/2023 4:26 PM DRY CLEANING MACHINE OPERATOR): Counseled on diet and exercise as above [...] Nasal saline spray (Simply saline, Little Remedies, [place], [place]) 2 second sprays or 2 squeezes into each nostril while looking down over the sink, do not need to sniff in. Follow up in 6 months, earlier with any ear drainage 07/06/2019 T-tubes placed in Office Nipple discharge in female 12/12/2019 Acute recurrent maxillary sinusitis 05/26/2019 Assessment & Plan (05/26/2019 10:38 AM DRY CLEANING MACHINE OPERATOR): Take Cefdinir with a meal daily Nasal saline spray (Simply saline, Little Remedies, [place], [place]) 2 second sprays or 2 squeezes into [...] drainage Assessment & Plan (07/07/2019 3:32 PM DRY CLEANING MACHINE OPERATOR): Bilateral myringotomy with T-tube placement in Office today Risks and complications discussed including anesthesia, bleeding, infection, hearing loss, ear tubes may fall out early, fall inwards, stay in longer than a few years, get clogged, fall out and leave a hole in the ear drum that would need to be patched, drain clear fluid. Assessment & Plan (05/26/2019 10:38 AM DRY CLEANING MACHINE OPERATOR): Take Cefdinir with a meal daily Nasal saline spray (Simply saline, Little Remedies, [place], [place]) 2 second sprays or 2 squeezes into [...] 05/26/2019 Assessment & Plan (05/26/2019 10:38 AM DRY CLEANING MACHINE OPERATOR): Hearing test right before follow up Left ear pain 05/26/2019 Assessment & Plan (05/26/2019 8:08 PM DRY CLEANING MACHINE OPERATOR): Take Cefdinir with a meal daily Nasal saline spray (Simply saline, Little Remedies, [place], [place]) 2 second sprays or 2 squeezes into [...] deficiency Assessment & Plan (04/06/2023 4:26 PM DRY CLEANING MACHINE OPERATOR): Check levels and further plans based on [...] on file Legal Sex Female 10:37 AM DRY CLEANING MACHINE OPERATOR Gender Identity Not on file Sexual Orientation Not on file Last Filed Vital Signs Vital Sign Reading Time Taken Comments Blood Pressure 122/70 06/06/2024 11:03 AM DRY CLEANING MACHINE OPERATOR Pulse 84 06/06/2024 11:03 AM DRY CLEANING MACHINE OPERATOR Temperature 36.2 ??C (97.2 ??F) 05/19/2021 11:[address] Respiratory Rate 15 06/06/2024 11:03 AM DRY CLEANING MACHINE OPERATOR Oxygen Saturation 100% 05/19/2021 11:45 AM DRY CLEANING MACHINE OPERATOR Inhaled Oxygen Concentration - - Weight 106.6 kg (235 lb) 06/06/2024 11:03 AM DRY CLEANING MACHINE OPERATOR Height 167.6 cm (5' 6 ) 06/06/2024 11:03 AM DRY CLEANING MACHINE OPERATOR Body Mass Index 37.93 06/06/2024 11:03 AM DRY CLEANING MACHINE OPERATOR Plan of Treatment Not on file Procedures Procedure Name Priority Date/Time Associated Diagnosis Comments DIAGNOSTIC MAMMOGRAM BILATERAL W RM Schedule Routine, Read Routine (OP Routine) 03/18/2021 3:39 PM DRY CLEANING MACHINE OPERATOR Nipple discharge in female HEPATITIS C ANTIBODY Routine 12/19/2019 4:49 PM CDT from Last 3 Months or Most Recently Relevant to Health Maintenance Results * Diagnostic Mammogram Bilateral W Rm (03/18/2021 3:39 PM DRY CLEANING MACHINE OPERATOR) Anatomical Region Laterality Modality Breast Bilateral Mammography 03/18/2021 4:19 PM DRY CLEANING MACHINE OPERATOR Impressions 03/18/2021 4:52 PM DRY CLEANING MACHINE OPERATOR 1. ??Two intraductal masses and/or debris within the RIGHT subareolar region within 1 cm of the nipple, one of which is sonographically stable from 2011. ??Given clinical history of multiple biopsy-proven papillomas, findings are considered benign. Per discussion with Dr. Margenthaler, the patient desires a central duct excision [...] Meryl Olguin M.D. Narrative 03/18/2021 4:52 PM DRY CLEANING MACHINE OPERATOR EXAMINATION: BILATERAL DIGITAL DIAGNOSTIC MAMMOGRAM INCLUDING CAD [...] Hep C Ab Nonreactive Nonreactive [facility] ([place]) Comment: Interpretive Data Nonreactive: Antibodies to HCV [...] last revised on 2019. Testing performed by: [facility], [address] [place] [address]., [address] Blood specimen (specimen) 12/19/2019 4:49 PM CDT 12/20/2019 9:45 AM CDT Kathryn Rosas MD LAB MICROBIOLOGY - GENERAL O RDERABLES Edited Result - Final [facility] ([place]) [address] [facility] Department [place] [address] from Last 3 Months or Most Recently Relevant to Health Maintenance Insurance [employer] OOS BLUE ACCESS OOS CIGVINCENT PIZANOSHANIQUACE Polantis ACCESS OOS CIGVINCENT GACE Care Teams Furnace Tender Relationship Specialty Start Date End Date Martha Lawrence MD [address] [place] [address] PCP - General 02/24/19 Zoran Willams Family Medicine 05/18/18
--- OUTSIDE RECORDS SUMMARY | 2024-06-10 07:21 | XMS_ITS | Encounter Summary ---
Author Organization [facility] Healthcare Address [address] [place] [address] Care Team Providers Care Lift Mechanic Name Role Phone Zoran Willams Unavailable Unavailable Martha Lawrence MD Primary Care Provider [phone] Encounter Details Date Type Department Care Team (Late st Contact Info) Description 12/18/2019 Telephone [facility] Advanced Medicine Breast Imaging [facility] Advanced Medicine ([facility]) [address] [place] [address] Kathryn Penaloza, SANJANA Social History Tobacco Use Types Packs/Day Years Used Date Smoking Tobacco: Never Smokeless Tobacco: Never Alcohol Use Standard Drinks/Week Comments No 0 (1 standard drink = 0.6 oz pur e alcohol) Comments No Sex and Gender Information Value Date Recorded Sex Assigned at Not on file Legal Sex Female 10:37 AM ARMATURE VARNISHER Gender Identity Not on file Sexual Orientation Not on file documented as of this encounter Plan of Treatment Not on file documented as of this encounter Visit Diagnoses Not on filedocumented in this encounter Care Teams Lift Mechanic Relationship Specialty Start Date End Date Martha Lawrence [place] [address] PCP - General 02/24/19 Zoran Willams Family Medicine 05/18/18 documented as of this encounter
--- OUTSIDE RECORDS SUMMARY | 2024-06-10 07:22 | XMS_ITS | Encounter Summary ---
Author Organization [facility] Address [address] [place] [address] Phone Care Team Providers Care Microfiche Duplicator Name Role Phone Zoran Willams Unavailable Unavailable Martha Lawrence MD Primary Care Provider [phone]- [phone] Encounter Details Date Type Department Care Team (Late st Contact Info) Description 02/17/2020 Ophth Exam [facility] Ophthalmology [address] [place] [address] 1[address] [place] [phone] Juan Mcdaniel MD [address] [facility] [address] [place], [place] [id number] Social History Tobacco Use Types Packs/Day Years Used Date Smoking Tobacco: Never Smokeless Tobacco: Never Alcohol Use Standard Drinks/Week Comments No 0 (1 standard drink = 0.6 oz pur e alcohol) Comments No Sex and Gender Information Value Date Recorded Sex Assigned at Not on file Legal Sex Female 10:37 AM POSITION CLERK Gender Identity Not on file Sexual [...] with poor dilation, small YAG Care Teams Microfiche Duplicator Relationship Specialty Start Date End Date Martha Lawrence MD [address] [place] [address] PCP - General 02/24/19 Zoran Willams Family Medicine 05/18/18 documented as of this encounter
[2024-06-10 09:19] LABS: Alanine Aminotransferase 21 U/L (6-35); Albumin Level 4.1 g/dL (3.5-5.1); Alkaline Phosphatase 82 U/L (38-126); Anion Gap 11 mmol/L (4-12); Aspartate Amino Transferase 23 U/L (14-36); Bilirubin,Total 0.5 mg/dL (0.2-1.3); Blood Urea Nitrogen 8 mg/dL (7-17); Calcium 9.3 mg/dL (8.4-10.2); Carbon Dioxide 22 mmol/L (22-30); Chloride 107 mmol/L (98-107); Cholesterol 133 mg/dL (0-200); Estimated Glomerular Filt Rate 56; Glucose 81 mg/dL (65-110); HDL Direct 39 mg/dL; Sodium 140 mmol/L (137-145); Triglycerides 183 mg/dL (<150)
[2024-06-10 09:30] LABS: LDL Cholesterol Direct 63 mg/dL
[2024-06-10 09:50] LABS: Vitamin D 25 Hydroxy 41.8 ng/mL
[2024-06-10 10:06] LABS: Hemoglobin A1C 5.2 % (<5.7)
== END 2024-06-10 07:17 | disposition home or self-care (01) ==
LOC: ANHLAB 07:18
PROVIDERS: PCP Family Medicine; Visit Provider Internal Medicine Endocrinology, Diabetes & Metabolism
DX: E28.2 Polycystic ovarian syndrome (principal); R73.03 Prediabetes; E66.812 Obesity, class 2; E66.01 Morbid (severe) obesity due to excess calories; Z68.37 Body mass index [BMI] 37.0-37.9, adult; E55.9 Vitamin D deficiency, unspecified
CPT/HCPCS: 36415; 80053; 80061; 82306; 83036

== ENCOUNTER 2024-06-15 15:30 | Outpatient (RCR) | payer BC, OTHER, SELFPAY ==
--- NOTE | 2024-04-13 17:52 | OPREHPOC ---
Outpatient Therapy Plan of Care This is a Multidisciplinary Plan of Care that may contain components documented by all disciplines (PT, OT, and ST.) PT Problem 1 PT Problem #1 Knowledge Deficit PT Goal 1 Goal / Goal Update [place] with HEP Target Visit 4 PT Problem 2 PT Problem #2 Pain PT Goal 1 Goal / Goal Update Report no pain greater than 2/10 with arm active motion activity Target Visit 8 PT Problem 3 PT Problem #3 Impaired Range of Motion PT Goal 1 Goal / Goal Update 1. Achieve 170+ degrees of R shoulder flexion to improve active reach of shoulder 2. Improve R shoulder external rotation ROM to 80+ degrees to improve self care and dressing ability Target Visit 10 PT Problem 4 PT Problem #4 Impaired Strength PT Goal 1 Goal / Goal Update 1. Improve R shoulder flexion strength to 4+/5 to improve active lifting ability 2. improve R shoulder external rotation strength to 5/5 to improve stability of shoulder for self care and ADLs Target Visit 10
--- NOTE | 2024-04-13 17:52 | PTOPEVAL1 ---
Assessment and note entered by Reji Garcia, PT Evaluation Information Assessment Status Evaluation Diagnosis M75.101, Z98.890 Onset 02/23/24 Subjective Information Reports that she has started some movement and it can wake her up at night still. Has a lot of trouble manipulating objects with her dominant hand. Was having increased pain over time. Went through a course of cortisone injections which helped for a while but imagining indicated a tear. She has tingling hands occasionally but believe that she has carpal tunnel as well. Wants to get back to exercising including weight training and aerobics. Reported Pain Level Pain Score 4: Self Report Assessment PT Clinical Summary Patient presents with signs and symptoms typical of post operative rotator cuff repair. Weakness noted and loss of ROM. Comfort of motion was improved with intervention today. Will benefit form skilled therapy to address ROM and strength deficits to improve function and self care. Plan of Care Interventions Electrical Stimulation,Hot Pack/Cold Pack,Manual Therapy,Neuro Re-education,Therapeutic Activities, Therapeutic Exercise PT Services Indicated Yes Treatment Frequency and 2x/week for 10 visits Duration These treatments will address the objective and functional deficits as defined above. The patient will be advanced safely and appropriately in order for the patient to progress towards his/her prior level of function. Additional exercises will be introduced and as well as a comprehensive home exercise program upon discharge, if needed, ?to ensure carryover of functional gains achieved in the clinic. This treatment plan has been reviewed and agreement upon by the patient.
--- NOTE | 2024-05-29 14:34 | PCPTNOTE ---
pt called and canceled today's reeval appt due to increased back pain.
--- NOTE | 2024-06-15 16:19 | PTOPDC ---
Assessment and note entered by Alexa Taylor, PT Assessment Status Discharge Diagnosis M75.101, Z98.890 Onset 02/23/24 Subjective Information shoulder was doing well, saw and he released me few days ago, woke up with upper back hurting, slept wrong and hurt my back; few weeks ago hurt lower back; before back hurt- returned to fitness exercises- strength training and dance aerobics and was doing great; Reported Pain Level Pain Score Self Report Additional Pain Score Comments pain range in the past week: 0-7/10; few days ago, increase to 7/10 with sleeping wrong and upper back hurt Assessment PT Clinical Summary Cesario has received 9 PT sessions. With today's assessment: pain rating from 0-7/10-- increased with sleeping wrong a few days ago and thoracic pain, which has irritated her shoulder; self assessment Quick DASH rating of 0% limitation in activity level; active R shoulder ROM: flexion 155', abduction 155' IR- reach behind back, palm to waist; ER- reach to back of head, fingers to cervical spine- no pain with shoulder motions; strength R UE: shoulder flexion to 90', with 5# hand wt and abduction to 90' with 2# hand wt; elbow flexion/extension 15#; bilateral UE box lift floor/waist height 25# without any issues and used good body mechanics; The goals were achieved, except pain rating, due to increase thoracic/shoulder pain due to sleeping wrong few days ago. Discharge PT. She is to continue with her HEP and progress strengthening as tolerated. Plan of Care PT Services Indicated No
== END 2024-06-16 09:29 | disposition home or self-care (01) ==
LOC: ANHPT 15:30
PROVIDERS: PCP Internal Medicine; Visit Provider Orthopaedic Surgery
DX: M75.101 Unspecified rotator cuff tear or rupture of right shoulder, not specified as traumatic (principal); Z98.890 Other specified postprocedural states
CPT/HCPCS: 97110; 97140; 97161; 97530

== ENCOUNTER 2024-07-24 17:39 | Outpatient (CLI) | payer BC, OTHER, SELFPAY ==
--- OUTSIDE RECORDS SUMMARY | 2024-07-24 19:05 | XMS_ITS ---
Author Organization [facility] [employer] Address [address] [place] [address] Care Team Providers Care Color Tester Name Role Phone Martha Lawrence MD Primary Care Provider Unavailab Mitesh Minaya Unavailable [phone] Allergies Allergen (clinical drug ingredient) Drug/Non Drug [...] Drug Allergy 09/20/2023 Active REASON FOR VISIT f/u, Depression screening positive Medications Medication SIG (Take, Route, Frequency, Duration) Notes Start Date End Date Status buPROPion HCl ER (XL) 150 MG 1 tablet Oral Once a day for 90 days Active Vraylar 3 mg 1 capsule Oral once daily for 90 days Active Zaleplon 10 MG 1 capsule at bedtime Oral Once a day for 30 days As needed Active Atomoxetine HCl 60 MG 1 capsule Oral Onc e a day for 90 days Active Escitalopram Oxalate 20 MG 1 tablet Oral Once a day for 90 days Active Topiramate 50 MG TAKE 1 TABLET BY DAGMAR TH TWICE A DAY Oral for 90 Days Active lamoTRIgine 100 MG 1 tablet Oral Once a day for 90 days Active traZODone HCl 100 MG 1 tablet Orally Onc e a day for 90 days Active buPROPion HCl ER (XL) 150 MG TAKE 1 TABLET BY MOUTH EVERY DAY FOR 90 DAYS for 90 Active Albuterol Sulfate HFA 108 (90 Base) MCG/ACT Inhalation for 15 Days Active Spravato (84 MG Dose) 28 MG/DEVICE 3 sprays in each nostril Nasally once a week for 1 days 07/19/2024 Active Naproxen 500 MG TAKE 1 TABLET BY DAGMAR TH TWICE A DAY NEEDED FOR PAIN Oral for 15 Days Active Nebivolol HCl 10 MG TAKE 1 TABLET BY DAGMAR TH EVERY DAY Oral for 90 Days Activ e Myfembree 40-1-0.5 MG TAKE 1 TABLET BY M OUTH EVERY DAY Oral for 84 Days Activ e lamoTRIgine 100 MG TAKE 1 TABLET BY DAGMAR TH EVERY DAY AT BEDTIME Oral for 90 Days Active Montelukast Sodium 10 MG TAKE 1 TABLET B Y MOUTH EVERY DAY Oral for 90 Days Activ e Mounjaro 5 MG/0.5ML INJECT 5 MG SUBCUTAN EOUSLY WEEKLY Subcutaneous for 28 Days Active Escitalopram Oxalate 20 MG TAKE 1 TABLET BY MOUTH EVERY DAY Oral for 90 Days Activ e Social History Tobacco Use: Social History Observation Description Date Details (start date - stop date) Never Smoker NA - NA Sex Assigned At : Social History Observation Description Sex Assigned At Female Household Question Answer Notes Marital status: Number of adults in household: 2 Tobacco Control (Standard) Question Answer Notes Tobacco use: Nonsmoker Vital Signs Blood pressure systolic 101 mm Hg 07/20/19 25 Blood pressure diastolic 71 mm Hg 025 Heart Rate 81 /min 07/19/2024 Height 66.00 in 07/19/2024 Weight 229.8 lbs 07/19/2024 BMI 37.09 kg/m2 07/19/2024 Height-cm 167.64 cm 07/19/2024 Weight-kg 104.24 kg 07/19/2024 Encounters Encounter Location Date Provider Diagnosis [facility] [employer] [facility] [address] [address] 07/19/2024 Mitesh Dawson Encounter for screen ing for depression Z13.31 ; Encounter for screening for cardiovascular disorders Z13.6 ; Generalized anxiety disorder F41.1 ; Primary insomnia F51.01 ; Attention-deficit hyperactivity disorder, combined type F90.2 and Major depressive disorder, recurrent severe without psychotic features F33.2 Assessments Encounter Date Diagnosis (ICD Code) Assessment Notes Treatment Notes Treatment Clinical Notes Section Notes 07/19/2024 Encounter for screening for depression (ICD-10 - Z13.31) 07/19/2024 Encounter for screening for cardiovascular disorders (ICD-10 - Z13.6) 07/19/2024 Generalized anxiety disorder (ICD-10 - F41.1) 07/19/2024 Primary insomnia (ICD-10 - F51.01) zaleplon 10 mg capsule 07/19/2024 Attention-deficit hyperactivity disorder, combined type (ICD-10 - F90.2) atomoxetine 60mg daily adhd, she has gluacoma, no stimulants - cont atom 07/19/2024 Major depressive disorder, recurrent severe without psychotic features (ICD-10 - F33.2) 07/19/2024 Other spravato 84mg every 10 days, lamotrigine 100 mg tablet - daily bupropion xl 150mg daily, escitalopram 20mg daily, vraylar 3mg daily 1. Paranoia : - Patient reports increased paranoia, particularly related to the current political environment. - Describes a possible visual hallucination involving seeing imprints of three clocks on a glass door. - Paranoid thoughts focused on fears of persecution due to multiple minority identities. Plan: - Increase Spravato treatments to once weekly, pending approval based on patient's qualifying scores. - Message Roseann to schedule increased Spravato treatments. - Continue current medication regimen: Xelplan at bedtime for insomnia, atomoxetine 60 mg, lamotrigine 100 mg, bupropion 150 mg daily, Vraylar 3 mg daily, and Lexapro 20 mg daily. - Send medication refills for current regimen. - Follow up in one month. 2. Anxiety and Stress: - Patient experiencing significant anxiety and stress related to current political climate, concerns about social security affecting parents, partner's health issues, and managing household responsibilities. - Stressors impacting daily functioning and exacerbating mental health symptoms. Plan: - Encourage focus on tangible, immediate tasks rather than anticipating unknown future events. - Suggest continuing weekly therapy sessions, with consideration of finding a new therapist if current therapeutic relationship is no longer beneficial. - Monitor effectiveness of increased Spravato treatments on anxiety symptoms. 3. 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 - Responsible for watching out for partner's seizures, managing household finances, and handling various administrative tasks. Plan: - Assess need for caregiver support resources. - Encourage prioritization of tasks and self-care strategies. 4. Follow-up: - Schedule a follow-up appointment in one month to assess patient's progress and medication effectiveness. Plan Of Treatment Medication Medication Name Sig Start Date Stop Date Notes buPROPion HCl ER (XL) 150 MG 1 tablet Or al Once a day for 90 days Vraylar 3 mg 1 capsule Oral once daily for 90 days Zaleplon 10 MG 1 capsule at bedtime Oral Once a day for 30 days Atomoxetine HCl 60 MG 1 capsule Oral Onc e a day for 90 days Escitalopram Oxalate 20 MG 1 tablet Oral Once a day for 90 days lamoTRIgine 100 MG 1 tablet Oral Once a day for 90 days Spravato (84 MG Dose) 28 MG/DEVICE 3 sprays in each nostril Nasally once a week for 1 days 07/19/2024 Treatment Notes Assessment Notes Primary insomnia zaleplon 10 mg capsu le Attention-deficit hyperactiv ity disorder, combined type atomoxetine 60mg daily adhd, she has gluacoma, no stimulants - cont atom Other spravato 84mg every 10 days, lamotrigine 100 mg tablet - daily bupropion xl 150mg daily, escitalopram 20mg daily, vraylar 3mg daily Next Appt Details Follow Up: 4 Weeks, Reason: f/u depression, anxiety, increase spravato Provider Name:Marciano Caal, 08/02/2024 03:15:00 PM, [facility], [address], [address], Provider Name:Marciano Caal, 08/09/2024 03:00:00 PM, [address], [facility] [address], [place], [address], Provider Name:Marciano Caal, 08/14/2024 03:15:00 PM, [address], [facility] [address], [place], [address], Provider Name:Mitesh pierre, 08/16/2024 03:45:00 PM, [address], [address], [place], [address], Provider Name:Marciano Caal, 08/21/2024 03:15:00 PM, [facility], [address], [place], [address], Provider Name:Marciano R Afua, 08/28/2024 03:15:00 PM, [facility], [address], [place], [address], Provider Name:Marciano Caal, 09/04/2024 03:00:00 PM, [facility], [address], [place], [address], Provider Name:Marciano Caal, 09/11/2024 03:00:00 PM, [facility] [address], [address], [place], [address], Provider Name:Marciano Caal, 09/18/2024 03:00:00 PM, [facility] [address], [address], [place], [address], Provider Name:Marciano Caal, 09/25/2024 03:00:00 PM, [facility] [address], [address], [place], [address], Provider Name:Marciano Caal, 10/09/2024 03:00:00 PM, [facility] [address], [address], [place], [address], Provider Name:Marciano Caal, 10/16/2024 03:00:00 PM, [facility] [address], [address], [place], [address], Provider Name:Marciano Caal, 10/23/2024 03:00:00 PM, [facility] [address], [address], [place], [address], Provider Name:Marciano Caal, 10/30/2024 03:00:00 PM, [facility] [address], [address], [place], [address], Provider Name:Marciano Caal, 11/06/2024 03:00:00 PM, [address], [facility] [address], [place], [address], Progress Notes * CESARIO JEWELL VDOB: [birth year] (44 yo F)Acc No.[id number]:07/19/2024 Esketamine Follow up Patient: CESARIO DUMONT V Provider: RUI KERR :1980 A ge:44 Y S ex:Female Date:07/19/2024 [address] [facility] Pcp:Martha Lawrence MD Subjective: * Chief Complaints: * F /uDepression screening positive * HPI: D epression Screening: the note is transcribed using speech recognition software. It is a reflection of a visit with the patient. It might have some inaccuracy, including medication names and transcribing errors, though efforts have been made to correct them. Chief complaint- Worsening paranoia, possible hallucination, increased stress. Cesario Jewell presents with worsening paranoia, particularly related to the current political climate. She expresses fear of persecution due to her identity as a queer, mentally ill, disabled, black woman. This paranoia has intensified recently, impacting her daily functioning and mental well-being. Cesario describes attempting to avoid news and pretend to be in a bubble, but finds this challenging due to her naturally curious nature and the direct impact of current events on her life. The patient reports a possible hallucination incident where she saw imprints of three clocks on her glass door through condensation, which disappeared when wiped away. This experience was described as really weird and contributed to her overall sense of unease. Cesario's stress levels have increased due to various factors, including concerns about Social Security affecting her parents' finances, her partner's worsening health condition (recent grand mal seizure), and the responsibility of managing household finances and logistics. She expresses feeling overwhelmed by these responsibilities, stating, I have to take care of everything. I have to manage the money in the house. Trying to get us passports and real IDs so we can get out if we need to. Regarding treatment, Cesario believes she may need to increase her Spravato treatments to once a week, noting that she feels better the day after treatment, describing it as like a reset switch for my mind. She continues to see a therapist weekly but expresses some dissatisfaction with the current therapeutic approach, considering the possibility of finding a new therapist. The patient reports adherence to her current medication regimen, which includes Xelplan for insomnia, atomoxetine 60 mg, lamotrigine 100 mg, bupropion 150 mg daily, Vraylar 3 mg daily, and Lexapro 20 mg. Her last Spravato treatment was on the of the previous month. 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 This change in her usual activities further indicates the impact of her current mental state on her daily functioning and personal goals. ANGEL-7 (2018 Edition) F eeling nervous, anxious, or on edge N early every day N ot being able to stop or control worrying?Nearly every day W orrying too much about different things N early every day T rouble relaxing N early every day B eing so restless that it is hard to sit still S everal days B ecoming easily annoyed or irritable S everal days F eeling afraid as if something awful might happen N early every day T otal ANGEL-7 Score 1 7 I f you checked any problems, how difficult have they made it for you to do your work, take care of things at home, or get along with other people? E xtremely difficult I nterpretation of Total ( 15 and over) Severe B obed Depression Inventory: which describes you best in terms of this past week 1 In the past one week which term best describe you 3 I am so sad and unhappy that I can't stand it. 2 In the past one week which term best describe you 3 I feel the future is hopeless and that things cannot be done. 3 In the past one week which term best describe you 1 I feel I have failed more than the average person. 4 In the past one week which term best describe you 1 I don't enjoy things the way I used to 5 In the past one week which term best describe you 1 I feel guilty a good part of the time. 6 In the past one week which term best describe you 0 I don't feel I am being punished. 7 In the past one week which term best describe you 1 I am disappointed in myself. 8 In the past one week which term best describe you 1 I am critical of myself for my weakness or mistakes. 9 In the past one week which term best describe you 0 I don't have any thoughts of killing myself. 1 0 In the past one week which term best describe you 1 I cry more now maryanne I used to . 1 1 In the past one week which term best describe you 1 I am slightly more irritated now than usual. 1 2 In the past one week which term best describe you 1 I am less interested in other people than I used to be. 1 3 In the past one week which term best describe you 1 I put off making decisions more than I used to. 1 4 In the past one week which term best describe you 1 I am worried that I am looking old or unattractive. 1 5 In the past one week which term best describe you 2 I have to push myself very hard to do anything. 1 6 In the past one week which term best describe you 3 I wake up several hours earlier than I used to and cannot get back to sleep 1 7 In the past one week which term best describe you 1 I get tired more easily than I used to. 1 8 In the past one week which term best describe you 1 My appetite is not as good as It used to be. 1 9 In the past one week which term best describe you 0 I haven't lost much weight, if any, lately. 2 0 In the past one week which term best describe you 0 I am no more worried about my health than usual 2 1 In the past one week which term best describe you 3 I have lost interest in sex completely. D epression screening: PHQ-9 L ittle interest or pleasure in doing things?Several days F eeling down, depressed, or hopeless M ore than half the days T rouble falling or staying asleep, or sleeping too much M ore than half the days F eeling tired or having little energy M ore than half the days P oor appetite or overeating S everal days F eeling bad about yourself or that you are a failure, or have let yourself or your family down S everal days T rouble concentrating on things, such as reading the newspaper or watching television ever M oving or speaking so slowly that other people could have noticed; or the opposite, being so fidgety or restless that you have been moving around a lot more than usual N ot at all T houghts that you would be better off or of hurting yourself in some way N ot at all T otal Score 1 0 I nterpretation M oderate Depression Intervention D epression Screening Findings P ositve F ollow-Up for Depression M entmi health treatment assessment, Patient follow-up to return when and if necessary S uicide Risk Assessment Performed 0 07/19/2024 A dditional Evaluation for Depression P sychiatric interview and evaluation N kun of the standardized tool used for adult depression screening: P atient Health Questionnaire (PHQ-9) H istory of Presenting Problem: Pt states she has been better. Has been having paranoia. Thinks had hallucination. Thought she saw imprints of clocks on the door. Political environment has her paranoid. States she is waiting for someone to cart her away and lock her away. She is seeing therapist once a week. Mood symptoms appear caused by political changes, she feels she is being backed into a corner, feels herself and her family will be effected. Depression h enma to get going in the morning, making self start things. Sleep disturbance R estless leg syndrome: r estless legs at night Prescribed sleep medications: madina locke, has used cannabis at night to help sleep, belsomra, lunesta- gave funny taste in her mouthNotes:persistent, had issues the past 2-3 months, has issues falling asleep or waking up because of fear. Psychotherapy Flash Acosta - every week. PTSD P TSD Quality: i ntrusive unpleasant thoughts; h ypervigilance of surroundings Timing of Symptoms: c hronic Duration: o manuel 5 years PTSD Severity: m oderate PTSD Associated Symptoms: f eeling detached; s leep disturbances; h igh irritabilityNotes:persists. P ast Medication history: Spravato, trazodone- stopped working,. * ROS: P erformance Met: N ormal blood pressure reading documented, follow-up not required ( [id number]). * Medical History: * Surgical History: * Hospitalization/Major Diagno stic Procedure: * Social History: T obacco Use: T obacco Control (Standard) T obacco use: N onsmoker M igrated Social History: M igrated Social History: Alcohol Intake: Occasional 05/20/2023,Tobacco Years: Never smoker 09/27/2019. S exual History: F amily Planning: Primary method for female: Female partner. D rug/Alcohol: D o you smoke marijuana?: Admits. Do you drink alcohol?: Socially. H ousehold: H ousehold M arital status: m arried N umber of adults in household: 2 A ny household pets? Y es M iscellaneous: S afety issues D o you feel safe at home? Y es A re there any firearms in the house? 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 N o * Medications: T akingSpravato (84 MG Dose) 28 MG/DEVICE Solution Therapy Pack 3 sprays in each nostril Nasally every 10 days Mounjaro 5 MG/0.5ML Solution Pen-injector INJECT 5 [...] BY MOUTH EVERY DAY AT BEDTIME Oral Myfembree 40-1-0.5 MG Tablet TAKE 1 TABLET BY MOUTH EVERY DAY Oral Zaleplon 10 MG Capsule 1 capsule at bedtime Oral Once a day As neededVraylar 3 mg Capsule 1 capsule Oral once daily Escitalopram Oxalate 20 MG Tablet 1 tablet Oral Once a day Atomoxetine HCl 60 MG Capsule 1 capsule Oral Once a day Naproxen 500 MG Tablet TAKE 1 TABLET BY MOUTH TWICE A DAY NEEDED FOR PAIN Oral traZODone HCl 100 MG Tablet 1 tablet Orally Once a day Topiramate 50 MG Tablet TAKE 1 TABLET BY MOUTH TWICE A DAY Oral Albuterol Sulfate HFA 108 (90 Base) MCG/ACT Aerosol Solution Inhalation buPROPion HCl ER (XL) 150 MG Tablet Extended Release 24 Hour TAKE 1 TABLET BY MOUTH EVERY DAY FOR 90 DAYS Medication List reviewed and reconciled with the patientTaking Spravato (84 MG Dose) 28 MG/DEVICE Solution Therapy Pack 3 sprays in each nostril Nasally every 10 days Taking Mounjaro 5 MG/0.5ML Solution Pen-injector INJECT 5 [...] MOUTH EVERY DAY AT BEDTIME Oral Taking Myfembree 40-1-0.5 MG Tablet TAKE 1 TABLET BY MOUTH EVERY DAY Oral Taking Zaleplon 10 MG Capsule 1 capsule at bedtime Oral Once a day As neededTaking Vraylar 3 mg Capsule 1 capsule Oral once daily Taking Escitalopram Oxalate 20 MG Tablet 1 tablet Oral Once a day Taking Atomoxetine HCl 60 MG Capsule 1 capsule Oral Once a day Taking Naproxen 500 MG Tablet TAKE 1 TABLET BY MOUTH TWICE A DAY NEEDED FOR PAIN Oral Taking traZODone HCl 100 MG Tablet 1 tablet Orally Once a day Taking Topiramate 50 MG Tablet TAKE 1 TABLET BY MOUTH TWICE A DAY Oral Taking Albuterol Sulfate HFA 108 (90 Base) MCG/ACT Aerosol Solution Inhalation Taking buPROPion HCl ER (XL) 150 MG Tablet Extended Release 24 Hour TAKE 1 TABLET BY MOUTH EVERY DAY FOR 90 DAYS Medication List reviewed and reconciled with the patient * Allergies: S ULFA (SULFONAMIDE ANTIBIOTICS): Allergy - Onset Date 09/20/2023enicillins: Allergy - Onset Date 09/20/2023razosin: Allergy - Onset Date 09/20/2023ercocet: nausea and vomiting - Side Effectsno[Allergies Verified] Objective: * Vitals: B P:101/71mm Hg, HR:81/min, Wt:229.8lbs, Wt-k.24 kg, Ht: 66.00 in, Ht-cm: 167.64 cm, BMI:37.09Index, Body Surface Area: 2.2. * Examination: P sychiatry: Appearance: w ell-groomed, well-nourished, .... Affect / mood: a ppropriate, full range. Attention: g ood. Attitude: c ooperative. Suicidal ideation: n one. Memory status: n o impairment noted. Degree of awareness of surroundings: w ithin normal limits.? Delusions: n o. Hallucinations: n o. Insight: g ood. Intellectual functioning: n o impairment noted. Judgement: g ood. Orientation: a wake, alert and oriented x 3. Perceptual disorders: n o perceptual disorder noted. Psychomotor activity: w ithin normal range. Speech / language: a ppropriate pitch/modulation, clear and coherent, normal rate, volume, and articulation (RVR), proper grammar used. Thought content: a ppropriate. Thought process: i ntact. G eneral Examination: - Mental Status Examination: - Mood: Patient reports feeling paranoid, stating I've been having a lot of paranoia issues. - Thought Process: Circumstantial, with tangential elements noted. - Thought Content: Preoccupations with political environment and fears of persecution. Paranoid ideation present, expressing concerns about being carted away due to identity characteristics. - Perceptions: Patient reports possible visual hallucination, describing seeing imprints on the glass, like through condensation. There were 3 clocks on the glass. - Cognition: Alert and oriented. Demonstrates ability to engage in future planning and problem-solving. - Insight: Limited insight noted. Patient recognizes need for increased treatment frequency but struggles to differentiate between realistic and unrealistic fears. - Judgment: Judgment appears fair. Patient is taking steps to manage responsibilities and prepare for perceived threats, though some actions may be influenced by paranoid ideation. Assessment: * Assessment: 1. G eneralized anxiety disorder - F41.1 (Primary) 2 . E ncounter for screening for depression - Z13.31 3 . E ncounter for screening for cardiovascular disorders - Z13.6 4 . P rimary insomnia - F51.01 5 . A ttention-deficit hyperactivity disorder, combined type - F90.2 6 . M ajor depressive disorder, recurrent severe without psychotic features - F33.2 Plan: * Treatment: 2. A ttention-deficit hyperactivity disorder, combined type Continue Atomoxetine HCl Capsule, 60 MG, 1 capsule, Oral, Once a day, 90 days, 90 Capsule, Refills 1. Notes:atomoxetine 60mg daily adhd, she has gluacoma, no stimulants - cont atom 3. M ajor depressive disorder, recurrent severe without psychotic features Continue lamoTRIgine Tablet, 100 MG, 1 tablet, Oral, Once a day, 90 days, 90 Tablet, Refills 1;?Continue buPROPion HCl ER (XL) Tablet Extended Release 24 Hour, 150 MG, 1 tablet, Oral, Once a day, 90 days, 90 Tablet, Refills 1; C ontinue Vraylar Capsule, 3 mg, 1 capsule, Oral, once daily, 90 days, 90, Refills 1; R efill Escitalopram Oxalate Tablet, 20 MG, 1 tablet, Oral, Once a day, 90 days, 90 Tablet, Refills 1; R efill Spravato (84 MG Dose) Solution Therapy Pack, 28 MG/DEVICE, 3 sprays in each nostril, Nasally, once a week, 1 days, 3, Refills 5. 4. O thers Notes: spravato 84mg every 10 days, lamotrigine 100 mg tablet - dailybupropion xl 150mg daily, escitalopram 20mg daily, vraylar 3mg daily Clinical Notes: 1. Paranoia : - Patient reports increased paranoia, particularly related to the current political environment. - Describes a possible visual hallucination involving seeing imprints of three clocks on a glass door. - Paranoid thoughts focused on fears of persecution due to multiple minority identities. Plan: - Increase Spravato treatments to once weekly, pending approval based on patient's qualifying scores. - Message Roseann to schedule increased Spravato treatments. - Continue current medication regimen: Xelplan at bedtime for insomnia, atomoxetine 60 mg, lamotrigine 100 mg, bupropion 150 mg daily, Vraylar 3 mg daily, and Lexapro 20 mg daily. - Send medication refills for current regimen. - Follow up in one month. 2. Anxiety and Stress: - Patient experiencing significant anxiety and stress related to current political climate, concerns about social security affecting parents, partner's health issues, and managing household responsibilities. - Stressors impacting daily functioning and exacerbating mental health symptoms. Plan: - Encourage focus on tangible, immediate tasks rather than anticipating unknown future events. - Suggest continuing weekly therapy sessions, with consideration of finding a new therapist if current therapeutic relationship is no longer beneficial. - Monitor effectiveness of increased Spravato treatments on anxiety symptoms. 3. 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 - Responsible for watching out for partner's seizures, managing household finances, and handling various administrative tasks. Plan: - Assess need for caregiver support resources. - Encourage prioritization of tasks and self-care strategies. 4. Follow-up: - Schedule a follow-up appointment in one month to assess patient's progress and medication effectiveness. * Procedure Codes: 9 6127 BEHAV ASSMT W/SCORE & DOCD/STAND [id number] NORMAL BP READING DOC F/U NOT [id number] CLIN DEPRESSION SCREEN [id number] MOST RECENT SYSTOLIC BP < 140MM [id number] MOST RECENT DIASTOLIC BP < 90MM HG * Follow Up: 4 Weeks (Reason: f/u depression, anxiety, increase spravato) * Billing Information: * Visit Code: [id number] OFFICE OUTPATIENT VISIT 25 MINUTES DETAILED HISTORY AND EXAM/MODERATE MEDICAL DECISION MAKING. * Procedure Codes: 65734 BEHAV ASSMT W/SCORE & DOCD/STAND INSTRUMENT. G8783 NORMAL BP READING DOC F/U NOT RQR. G8431 CLIN DEPRESSION SCREEN DOC. G8752 MOST RECENT SYSTOLIC BP < 140MM HG. G8754 MOST RECENT DIASTOLIC BP < 90MM HG. * Sign off status: Completed true * Provider: RUI KERR Date: 0 07/19/2024 Generated for Keaton Roy/Bozena on: 0 07/24/2024 07:05 PM CDT History and Physical Notes * HPI (History of Present Illness) Category Sub-Category Detail Notes Category Not es History of Presenting Problem Depression hard to get going in the morning, making self start things Sleep disturbance Restless leg syndrom e: restless legs at night Prescribed sleep medications: colin qulizette, ramelteon, has used cannabis at night to help sleep, belsomra, lunesta- gave funny taste in her mouthNotes:persistent, had issues the past 2-3 months, has issues falling asleep or waking up because of fear Psychotherapy Kasey Acosta - ev franki week PTSD PTSD Quality: intrus angelo unpleasant thoughts; hypervigilance of surroundings Timing of Symptoms: chronic Duration: over 5 years PTSD Severity: moderate PTSD Associated Symptoms: feeling detached; sleep disturbances; high irritabilityNotes:persists Depression screening PHQ-9 Little inte rest or pleasure in doing things: Several days Feeling down, depressed, or hopeless: Mo re than half the days Trouble falling or staying a sleep, or sleeping too much: More than half the days Feeling tired or having little energy: M ore than half the days Poor appetite or overeating: Several day s Feeling bad about yourself o r that you are a failure, or have let yourself or your family down: Several days Trouble concentrating on thi ngs, such as reading the newspaper or watching television: Several days Moving or speaking so slowly that other people could have noticed; or the opposite, being so fidgety or restless that you have been moving around a lot more than usual: Not at all Thoughts that you would be b lucita off or of hurting yourself in some way: Not at all Total Score: 10 Interpretation: Moderate Depression Intervention Depression Screening Findings: P ositve Follow-Up for Depression: [facility] treatment assessment, Patient follow-up to return when and if necessary Suicide Risk Assessment Performed: 07/19 Additional Evaluation for Depression: Ps ychiatric interview and evaluation Name of the standardized too l used for adult depression screening:: Patient Health Questionnaire (PHQ-9) Depression Screening ANGEL-7 (2018 Edition) Feelin g nervous, anxious, or on edge: Nearly every day Not being able to stop or control worryi ng: Nearly every day Worrying too much about different things : Nearly every day Trouble relaxing: Nearly every day Being so restless that it is hard to sit still: Several days Becoming easily annoyed or irritable: Se veral days Feeling afraid as if something awful amanda ht happen: Nearly every day Total ANGEL-7 Score: 17 If you checked any problems, how difficult have they made it for you to do your work, take care of things at home, or get along with other people?: Extremely difficult Interpretation of Total: (15 and over) S evere Gale Depression Inventory which describe s you best in terms of this past week 1 In the past one week which term best describe you: 3 I am so sad and unhappy that I can't stand it. 2 In the past one week which term best describe you: 3 I feel the future is hopeless and that things cannot be done. 3 In the past one week which term best describe you: 1 I feel I have failed more than the average person. 4 In the past one week which term best describe you: 1 I don't enjoy things the way I used to 5 In the past one week which term best describe you: 1 I feel guilty a good part of the time. 6 In the past one week which term best describe you: 0 I don't feel I am being punished. 7 In the past one week which term best describe you: 1 I am disappointed in myself. 8 In the past one week which term best describe you: 1 I am critical of myself for my weakness or mistakes. 9 In the past one week which [...] h term best describe you: 2 I have to push myself very hard to do anything. 16 In the past one week whic h term best describe you: 3 I wake up several hours earlier than I used to and cannot get back to sleep 17 In the past one week whic [...] h term best describe you: 0 I am no more worried about my health than usual 21 In the past one week whic h term best describe you: 3 I have lost interest in sex completely. Examination Category Sub-Category Detail Notes Category Not [...] no impairment noted Delusions: no Hallucinations: no General Examination - Mental Status Examination: - Mood: Patient reports feeling paranoid, stating I've been having a lot of paranoia issues. - Thought Process: Circumstantial, with tangential elements noted. - Thought Content: Preoccupations with political environment and fears of persecution. Paranoid ideation present, expressing concerns about being carted away due to identity characteristics. - Perceptions: Patient reports possible visual hallucination, describing seeing imprints on the glass, like through condensation. There were 3 clocks on the glass. - Cognition: Alert and oriented. Demonstrates ability to engage in future planning and problem-solving. - Insight: Limited insight noted. Patient recognizes need for increased treatment frequency but struggles to differentiate between realistic and unrealistic fears. - Judgment: Judgment appears fair. Patient is taking steps to manage responsibilities and prepare for perceived threats, though some actions may be influenced by paranoid ideation.
--- OUTSIDE RECORDS SUMMARY | 2024-07-24 19:05 | XMS_ITS ---
Author Organization [facility] [place] [facility] Address [address] [place] [address] Care Team Providers Care Material Requirements Worker Name Role Phone Martha Lawrence MD Primary Care Provider Unavailab Mitesh Minaya Unavailable [phone] Marciano Caal Unavailable [phone] Allergies Allergen (clinical drug ingredient) Drug/Non Drug [...] Drug Allergy 09/20/2023 Active REASON FOR VISIT Esketamine Administration, Spravato Treatment, rates her depression as 9/10 Medications Medication SIG (Take, Route, Frequency, Duration) Notes Start Date End Date Status Atomoxetine HCl 60 MG 1 capsule Oral Onc e a day for 90 days Active Spravato (84 MG Dose) 28 MG/DEVICE 3 sprays in each nostril Nasally once a week for 1 days Active Topiramate 50 MG TAKE 1 TABLET BY TWICE A DAY Oral for 90 Days Active Albuterol Sulfate HFA 108 (90 Base) MCG/ACT Inhalation for 15 Days Active Zaleplon 10 MG 1 capsule at bedtime Oral Once a day for 30 days As needed Active Escitalopram Oxalate 20 MG 1 tablet Oral Once a day for 90 days Active buPROPion HCl ER (XL) 150 MG 1 tablet Oral Once a day for 90 days Active Vraylar 3 mg 1 capsule Oral once daily for 90 days Active Naproxen 500 MG TAKE 1 TABLET BY DAGMAR TH TWICE A DAY NEEDED FOR PAIN Oral for 15 Days Active traZODone HCl 100 MG 1 tablet Orally Onc e a day for 90 days Active Nebivolol HCl 10 MG TAKE 1 TABLET BY DAGMAR TH EVERY DAY Oral for 90 Days Activ e Myfembree 40-1-0.5 MG TAKE 1 TABLET BY M OUTH EVERY DAY Oral for 84 Days Activ e Montelukast Sodium 10 MG TAKE 1 TABLET B Y MOUTH EVERY DAY Oral for 90 Days Activ e Escitalopram Oxalate 20 MG TAKE 1 TABLET BY MOUTH EVERY DAY Oral for 90 Days Activ e lamoTRIgine 100 MG 1 tablet Oral Once a day for 90 days Active Mounjaro 5 MG/0.5ML INJECT 5 MG SUBCUTAN EOUSLY WEEKLY Subcutaneous for 28 Days Active Social History Sex Assigned At : Social History Observation Description Sex Assigned At Female Vital Signs Blood pressure systolic 138 mm Hg 07/25/19 25 Blood pressure diastolic 88 mm Hg 025 Heart Rate 90 /min 07/24/2024 Height 66.00 in 07/24/2024 Oximetry 99 % 07/24/2024 Height-cm 167.64 cm 07/24/2024 Encounters Encounter Location Date Provider Diagnosis [facility] [address] [address] 07/24/2024 Marciano Caal Major depressive disorder, recurrent severe without psychotic features F33.2 Assessments Encounter Date Diagnosis (ICD Code) Assessment Notes Treatment Notes Treatment Clinical Notes Section Notes 07/24/2024 Major depressive disorder, recurrent severe without psychotic features (ICD-10 - F33.2) 07/24/2024 Other 1. Anxiety and Depression with Paranoid Features - Patient rates anxiety at 10/10 and depression at 9/10. - Patient reports paranoid thoughts, feeling something really bad is coming and is right around the corner . - Plan: a. Continue current medications as prescribed by primary psychiatric care provider. b. continue therapy c. Encourage use of self-talk techniques to challenge paranoid thoughts. d. Recommend maintaining sleep hygiene, aiming for 7-8 hours of sleep per night. e. Follow up with psychiatrist as scheduled. 2. Poor Appetite - Patient reports ongoing issues with appetite, frequently missing dinner. - Plan: a. Continue consumption of at least 2 protein shakes daily. b. Monitor weight and nutritional status at follow-up appointments. 3. Sleep - Patient currently achieves closer to 7 hours of sleep. - Plan: a. Recommend maintaining sleep hygiene, aiming for 7-8 hours of sleep per night. 4. Suicidal Ideation and Self-Harm - Patient reports no thoughts of suicide or self-harm. - Plan: a. Continue monitoring during follow-up appointments. 5. Therapy - Patient is engaged in weekly therapy sessions. - Plan: a. Maintain weekly therapy sessions with focus on impulse control. Plan Of Treatment Medication Medication Name Sig Start Date Stop Date Notes Spravato (84 MG Dose) 28 MG/DEVICE 3 sprays in each nostril Nasally once a week for 1 days Escitalopram Oxalate 20 MG 1 tablet Oral Once a day for 90 days buPROPion HCl ER (XL) 150 MG 1 tablet Or al Once a day for 90 days Vraylar 3 mg 1 capsule Oral once daily for 90 days lamoTRIgine 100 MG 1 tablet Oral Once a day for 90 days Next Appt Details Follow Up: 08/02/2024 @ 3:00 PM, Reason: Esketamine administration Provider Name:Marciano Caal, 08/02/2024 03:15:00 PM, [facility] [address], [address], [address], Provider Name:Marciano Cala, 08/09/2024 03:00:00 PM, [facility] [address], [address], [address], Provider Name:Marciano Caal, 08/14/2024 03:15:00 PM, [facility] [address], [address], [address], Provider Name:Mitesh pierre, 08/16/2024 03:45:00 PM, [facility] [address], [address], [address], Provider Name:Marciano Caal, 08/21/2024 03:15:00 PM, [facility] [address], [address], [address], Provider Name:Marciano Caal, 08/28/2024 03:15:00 PM, [address], [address], [place], [address], Provider Name:Marciano Caal, 09/04/2024 03:00:00 PM, [facility] [address], [place], [address], Provider Name:Marciano Caal, 09/11/2024 03:00:00 PM, [facility] [address], [place], [address], Provider Name:Marciano Caal, 09/18/2024 03:00:00 PM, [facility] [address], [place], [address], Provider Name:Marciano Caal, 09/25/2024 03:00:00 PM, [facility] [address], [place], [address], Provider Name:Marciano Caal, 10/09/2024 03:00:00 PM, [facility] [address], [place], [address], Provider Name:Marciano Caal, 10/16/2024 03:00:00 PM, [facility] [address], [place], [address], Provider Name:Marciano Caal, 10/23/2024 03:00:00 PM, [facility] [address], [place], [address], Provider Name:Marciano Caal, 10/30/2024 03:00:00 PM, [facility] [address], [place], [address], Provider Name:Marciano Caal, 11/06/2024 03:00:00 PM, [facility] [address], [place], [address], Medications Administered Medication Instructions Date of Administration Dosage Notes Spravato (84 MG Dose) 07/24/2024 84 mg Progress Notes * JAQUELINE HASSAN VDOB: 1 (44 yo F)Acc No.[id number]:07/24/2024 Patient: JAQUELINE DUMONT V Provider: RUI Rizzo :1980 A ge:44 Y S ex:Female Date:07/24/2024 [facility] Pcp:Martha Lawrence MD Subjective: * Chief Complaints: * 1 . Esketamine Administration. 2. Spravato Treatment. 3. Rates her depression as 01/17. * HPI: G eneral Follow Up: 1 Review patient medical records, any recent test results, last visit summary, etc Y es1 Time spent 4 2 Greet patient and escort to the treatment room N o3 Initial Obtained vital signs N o4 Prepare equipment and supplies Y es4 Time spent 2 5 Reviewed and documented history and medication Y es5 Time spent 4 6 Evaluate patient's clinical status [relevant history/physical assessment] and determine readiness/appropriateness of treatment Y es6 Time spent 2 7 Confirm orders and review plans with staff Y es7 Time spent 1 8 Ensure appropriate positioning for administration, observe patient administration, ensure patient comfort and safety Y es8 Time spent 3 9 Obtained vital signs: Assess treatment tolerance N o10 Assess the patient response to treatment: Visually and verbally evaluate the patient; review treatment progress with staff [vital signs, patient tolerance, side effects, etc.] Y es10 Time spent 1 511 obtained vital signs: assess treatment tolerance N o12 At the completion of observation., Reviewed treatment course and assess the patient for clinical stability/discharge readiness Y es12 Time spent 2 13 Write a prescription or Reviewed RX for next session and submit to pharmacy N o14 Provide patient education/instruction/ Y es14 Time spent 1 15 Coordinate home-going [that is, discharged to escorted transportation] N o16 Complete medical record documentation Y es16 Time spent 1 017 cleaning of room/equipment by clinical staff N o18 complete medical record documentation; complete and submit rems patient monitoring form N oI attest to the total time spent Before, During and after ecounter was (in Minutes) 4 4 The note is transcribed using speech recognition software. It is a reflection of a visit with the patient. It might have some inaccuracy, including medication names and transcribing errors, though efforts have been made to correct them. HPI: rates her depression as 9/10 and anxiety as 10/10. She reports feeling super anxious all the time and has a persistent sense that something really bad is coming, indicating ongoing paranoid thoughts. She acknowledges that her paranoia is not based in reality and is actively engaging in self-talk strategies to rationalize and challenge these fears. Sleep has improved slightly, reporting 7-8 hours of sleep per night, closer to 7 hours. Her appetite remains poor, with the patient missing dinner most days. To compensate for reduced food intake, she has started consuming at least two protein shakes daily to ensure some nutritional intake. Sleep: reports 7-8 hours of sleep per night, closer to 7 hours. Other Symptoms: denies any current thoughts of suicide, self-harm, or harm to others. She reports recent healthcare interactions, including an appointment with her psychiatrist where they decided to switch to weekly spravato sessions. She is also working with her therapist on impulse control. E sketamine Administration: Esketamine administration T dean at the start of administration 3 :00 PM T dean of discharge 5 :00 PM P atient must be monitored for at least 2 hours Y es W as the patient clinically ready for discharge prior to the required 2-hour: Natalia canales Notes about today's Visit P atient will be picked up by her spouse. She said the last time she ate was around 12:00 PM this afternoon. She verbalized no medication changes and is taking them all as prescribed. Esketamine Nasal [place] Administration and Supervised monitoring Staff attending the patient Erika Vidales Supervising provider as in rendering provider : RUI Gold Is patient taking any of the following concomitant medication that may cause sedation of blood pressure changes Benzodiazepine No Non-benzodiazepine sedative-hypnotics: Yes Psychostimulant: No Monoamine oxidase inhibitors [MAOIs]: No Dose of Spravato: 84 Mg Lot number [id number] Date: 10/07/2026. * ROS: G eneral / Constitutional: Fatigue d enies. D izziness D enies. S edation?Denies. s pinning sensation D eneis. G astrointestinal: Nausea d enies. V omiting d enies. P sychiatric: Anxiety d enies. A uditory / visual hallucinations d enies. D elusions d enies. S uicidal thoughts d enies. D issociations D enies. E xcited D enies. * Medical History: P roblems: Attention deficit hyperactivity disorder, combined type, Chronic post-traumatic stress disorder, Generalized anxiety disorder, Glaucoma, Mild recurrent major depression, Moderate recurrent major depression, Nightmares associated with chronic post-traumatic stress disorder, Polycystic ovary syndrome, Primary insomnia, Severe recurrent major depression without psychotic features, Suicidal thoughts, ,. * Medications: T aking Mounjaro 5 MG/0.5ML Solution Pen-injector INJECT 5 MG SUBCUTANEOUSLY WEEKLY Subcutaneous , Taking Montelukast Sodium 10 MG Tablet TAKE 1 TABLET BY MOUTH EVERY DAY Oral , Taking Escitalopram Oxalate 20 MG Tablet TAKE 1 TABLET BY MOUTH EVERY DAY Oral , Taking Nebivolol HCl 10 MG Tablet TAKE 1 TABLET BY MOUTH EVERY DAY Oral , Taking Myfembree 40-1-0.5 MG Tablet TAKE 1 TABLET BY MOUTH EVERY DAY Oral , Taking Naproxen 500 MG Tablet TAKE 1 TABLET BY MOUTH TWICE A DAY NEEDED FOR PAIN Oral , Taking traZODone HCl 100 MG Tablet 1 tablet Orally Once a day , Taking Topiramate 50 MG Tablet TAKE 1 TABLET BY MOUTH TWICE A DAY Oral , Taking Albuterol Sulfate HFA 108 (90 Base) MCG/ACT Aerosol Solution Inhalation , Taking lamoTRIgine 100 MG Tablet 1 tablet Oral Once a day , Taking buPROPion HCl ER (XL) 150 MG Tablet Extended Release 24 Hour 1 tablet Oral Once a day , Taking Zaleplon 10 MG Capsule 1 capsule at bedtime Oral Once a day As needed, Taking Vraylar 3 mg Capsule 1 capsule Oral once daily , Taking Escitalopram Oxalate 20 MG Tablet 1 tablet Oral Once a day , Taking Atomoxetine HCl 60 MG Capsule 1 capsule Oral Once a day , Taking Spravato (84 MG Dose) 28 MG/DEVICE Solution Therapy Pack 3 sprays in each nostril Nasally once a week , Medication List reviewed and reconciled with the patient * Allergies: S ULFA (SULFONAMIDE ANTIBIOTICS): Allergy - Onset Date 09/20/2023, Penicillins: Allergy - Onset Date 09/20/2023, Prazosin: Allergy - Onset Date 09/20/2023, Percocet: nausea and vomiting - Side Effects. Objective: * Vitals: B P: 104/74 mm Hg,103/68 mm Hg,138/88mm Hg, HR: 80 /min,83 /min,90/min, Oxygen sat %: 95 %,99 %,99%, Ht: 66.00 in, Ht-cm: 167.64 cm. * Examination: G eneral Examination: Psych: a lert and oriented x 3, cognitive function intact, cooperative with exam, maintains good eye contact, with good judgement and insight, normal affect / mood, with no auditory or visual hallucinations, speech is clear and coherent, thought process is logical and goal directed without suidical ideation or delusions. - Mental Status Examination: - Mood: Patient rates depression as a nine and anxiety as a 10 . Reports feeling super anxious all the time and states Just feel like something really bad is coming. It's gonna happen. It's just right around the corner. - Thought Content: Exhibits paranoid ideation, expressing belief that something bad is about to happen. Denies current suicidal or homicidal ideation when asked directly. - Cognition: Patient appears alert and able to engage in conversation. - Insight: Shows some insight into paranoid thoughts, acknowledging she may not be based in reality. - Working on impulse control with therapist. - Rating Scales: - Depression scale: Score: 9/10 - Anxiety scale: Score: 10/10 - Additional Observations: - Sleep: Patient is trying to get 7 to 8 hours of sleep but is closer to 7. - Appetite: Low, missing dinner most days but compensating with protein shakes. Assessment: * Assessment: 1. M ajor depressive disorder, recurrent severe without psychotic features - F33.2 ? Plan: * Treatment: 2. O thers Clinical Notes: 1. Anxiety and Depression with Paranoid Features - Patient rates anxiety at 10/10 and depression at 9/10. - Patient reports paranoid thoughts, feeling something really bad is coming and is right around the corner . - Plan: a. Continue current medications as prescribed by primary psychiatric care provider. b. continue therapy c. Encourage use of self-talk techniques to challenge paranoid thoughts. d. Recommend maintaining sleep hygiene, aiming for 7-8 hours of sleep per night. e. Follow up with psychiatrist as scheduled. 2. Poor Appetite - Patient reports ongoing issues with appetite, frequently missing dinner. - Plan: a. Continue consumption of at least 2 protein shakes daily. b. Monitor weight and nutritional status at follow-up appointments. 3. Sleep - Patient currently achieves closer to 7 hours of sleep. - Plan: a. Recommend maintaining sleep hygiene, aiming for 7-8 hours of sleep per night. 4. Suicidal Ideation and Self-Harm - Patient reports no thoughts of suicide or self-harm. - Plan: a. Continue monitoring during follow-up appointments. 5. Therapy - Patient is engaged in weekly therapy sessions. - Plan: a. Maintain weekly therapy sessions with focus on impulse control. * Therapeutic Injections: Spravato 84 mg : 84 mg (Route: Nasal) given by RUI Gold (Major depressive disorder, recurrent severe without psychotic features) * Procedure Codes: 9 9417 PROLONGED OFFICE OR OTHER OUTPATIENT EVALUATION AND MANAGEMENT SERVICE(S) (BEYOND THE TOTAL TIME OF THE PRIMARY PROCEDURE WHICH HAS BEEN SELECTED USING TOTAL TIME), REQUIRING TOTAL TIME WITH OR WITHOUT DIRECT PATIENT CONTACT BEYOND THE USUAL SERVICE, ON T, Units: 4.00 * Follow Up: @ 3:00 PM (Reason: Esketamine administration) * Billing Information: * Visit Code: 29662 OFFICE OUTPATIENT VISIT 40 MINUTES COMPREHENSIVE HISTORY AND EXAM/HIGH MEDICAL DECISION MAKING. * Procedure Codes: 16046 PROLONGED OFFICE OR OTHER OUTPATIENT EVALUATION AND MANAGEMENT SERVICE(S) (BEYOND THE TOTAL TIME OF THE PRIMARY PROCEDURE WHICH HAS BEEN SELECTED USING TOTAL TIME), REQUIRING TOTAL TIME WITH OR WITHOUT DIRECT PATIENT CONTACT BEYOND THE USUAL SERVICE, ON T. Units: 4.00. * Electronic signature of RUI Prajapati on 07/24/2024 at 07:05 PM CDT Sign off status: Pending * Provider: RUI Rizzo Date: 07/24/2024 Generated for Keaton magallon/Sergio/Bozena on: 0 07/24/2024 07:05 PM CDT History and Physical Notes * HPI (History of Present Illness) Category Sub-Category Detail Notes Category Not es Esketamine Administration Esketamine administration Time at the start of administratio n: 3:00 PM Esketamine Nasal [place] Administration and Supervised monitoring Staff attending the patient Erika Vidales Supervising provider as in rendering provider : RUI Gold Is patient taking any of the following concomitant medication that may cause sedation of blood pressure changes Benzodiazepine No Non-benzodiazepine sedative-hypnotics: Yes Psychostimulant: No Monoamine oxidase inhibitors [MAOIs]: No Dose of Spravato: 84 Mg Lot number [id number] Date: 10/07/2026 Time of discharge: 5:00 PM Patient must be monitored fo r at least 2 hours: Yes Was the patient clinically r jerson for discharge prior to the required 2-hour:: No staff Notes about today's Visit: Patient will be picked up by her spouse. She said the last time she ate was around 12:00 PM this afternoon. She verbalized no medication changes and is taking them all as prescribed. Examination Category Sub-Category Detail Notes Category Not [...] or delusions - Mental Status Examination: - Mood: Patient rates depression as a nine and anxiety as a 10 . Reports feeling super anxious all the time and states Just feel like something really bad is coming. It's gonna happen. It's just right around the corner. - Thought Content: Exhibits paranoid ideation, expressing belief that something bad is about to happen. Denies current suicidal or homicidal ideation when asked directly. - Cognition: Patient appears alert and able to engage in conversation. - Insight: Shows some insight into paranoid thoughts, acknowledging she may not be based in reality. - Working on impulse control with therapist. - Rating Scales: - Depression scale: Score: 9/10 - Anxiety scale: Score: 10/10 - Additional Observations: - Sleep: Patient is trying to get 7 to 8 hours of sleep but is closer to 7. - Appetite: Low, missing dinner most days but compensating with protein shakes.
--- OUTSIDE RECORDS SUMMARY | 2024-07-24 19:05 | XMS_ITS | Clinical Summary ---
Author Organization [facility] Address [address] [place] [address] Phone Care Team Providers Care Controls Operator Molded Goods Name Role Phone Zoran Willams Unavailable Unavailable Martha Lawrence MD Primary Care Provider [phone] Allergies Active Allergy Reactions Criticality Noted Date [...] 10/31/19 20 Active nebivoloL (BYSTOLIC) 5 mg tabletIndicatio ns:hypertension [...] eye(s) nightly 06/26/19 22 Active pancrelipase (Zenpep) 40,000-126,000- 168,000 unit per capsule TAKE 2 CAPSULES WITH MEALS AND 1 CAPSULE WITH SNACKS Active Myfembree 40-1-0.5 mg tablet Take 1 tablet by mouth daily Active topiramate (TOPAMAX) 50 mg tabletIndicatio ns:Binge Eating Disorder Take 1 tablet (50 mg total) by mouth 2 (two) times a day 180 tablet 1 06/06/19 25 025 Active tirzepatide, weight loss, (Zepbound) 5 mg/0.5 mL pen injectorIndicat ions:Class 2 severe obesity due to excess calories with serious comorbidity and body mass index (BMI) of 36.0 to 36.9 in adult (HCC) INJECT 0.5 ML (5 MG TOTAL) UNDER THE SKIN EVERY 7 DAYS 2 mL 07/18/19 25 Active tirzepatide, weight loss, (Zepbound) 5 mg/0.5 mL pen injectorIndicat ions:Class 2 severe obesity due to excess calories with serious comorbidity and body mass index (BMI) of 36.0 to 36.9 in adult (HCC) Inject 0.5 mL (5 mg total) under the skin every 7 days 2 mL 06/16/19 25 025 Discontinued Active Problems Problem Noted Date Diagnosed Date Chest pain, atypical 07/05/2024 Polycystic ovarian syndrome 04/06/2023 Assessment & Plan (11/10/2023 12:19 PM CDT): Counseled patient on diet and exercise Advised patient to stop added sugars, cutback on processed foods Include whole grain, fruits and vegetables, greens, lean, organic fashion chicken Cutback on red meat and processed meat Avoid animal daily products. Advised to include albumin milk. Okay to include Indian yogurt Advise to look into intermittent fasting. Continue endurance and weight training Assessment & Plan (04/06/2023 4:26 PM DRAMATIC ARTS HISTORIAN): Counseled patient on diet and exercise Advised patient to stop added sugars, cutback on processed foods Include whole grain, fruits and vegetables, greens, lean, organic fashion chicken Cutback on red meat and processed meat Avoid animal daily products. Advised to include albumin milk. Okay to include Indian yogurt Advise to look into intermittent fasting. Continue endurance and weight training Prediabetes 04/06/2023 Assessment & Plan (11/10/2023 12:19 PM CDT): Counseled on diet and exercise Continue mounjaro 5 mg subQ weekly Assessment & Plan (04/06/2023 4:26 PM DRAMATIC ARTS HISTORIAN): Counseled on diet and exercise Switch Ozempic [...] exercises Assessment & Plan (04/06/2023 4:26 PM DRAMATIC ARTS HISTORIAN): Counseled on diet and exercise as above [...] Nasal saline spray (Simply saline, Little Remedies, [place], [place]) 2 second sprays or 2 squeezes into each nostril while looking down over the sink, do not need to sniff in. Follow up in 6 months, earlier with any ear drainage 07/06/2019 T-tubes placed in Office Nipple discharge in female 12/12/2019 Acute recurrent maxillary sinusitis 05/26/2019 Assessment & Plan (05/26/2019 10:38 AM DRAMATIC ARTS HISTORIAN): Take Cefdinir with a meal daily Nasal saline spray (Simply saline, [place] Remedies, [place], [place]) 2 second sprays or 2 squeezes into [...] Assessment & Plan (08/13/2020 9:25 AM CDT): 07/06/2019 T-tubes placed in Office Assessment & Plan (07/21/2019 9:18 AM CDT): Avoid ear cleaning techniques Avoid water to ears Follow up in 6 months, earlier with any ear drainage Assessment & Plan (07/07/2019 3:32 PM DRAMATIC ARTS HISTORIAN): Bilateral myringotomy with T-tube placement in Office today Risks and complications discussed including anesthesia, bleeding, infection, hearing loss, ear tubes may fall out early, fall inwards, stay in longer than a few years, get clogged, fall out and leave a hole in the ear drum that would need to be patched, drain clear fluid. Assessment & Plan (05/26/2019 10:38 AM DRAMATIC ARTS HISTORIAN): Take Cefdinir with a meal daily Nasal saline spray (Simply saline, Little Remedies, [place], [place]) 2 second sprays or 2 squeezes into [...] 05/26/2019 Assessment & Plan (05/26/2019 10:38 AM DRAMATIC ARTS HISTORIAN): Hearing test right before follow up Left ear pain 05/26/2019 Assessment & Plan (05/26/2019 8:08 PM DRAMATIC ARTS HISTORIAN): Take Cefdinir with a meal daily Nasal saline spray (Simply saline, Little Remedies, [place], [place]) 2 second sprays or 2 squeezes into [...] deficiency Assessment & Plan (04/06/2023 4:26 PM DRAMATIC ARTS HISTORIAN): Check levels and further plans based on [...] Encounters Date Type Department Care Team Description 07/05/2024 10:30 AM DRAMATIC ARTS HISTORIAN Office Visit [facility] Cardiology at [address] [place] [address] Yessi Miles MD Chest pain, atypical (Primary Dx) 06/20/2024 Telephone [facility] Diabetes and Endocrinology [address] [place] [address] Bryn Peterson MD Prior Auth (Zepbound) 06/16/2024 [facility] [address] [place] [address] Bryn Peterson MD 06/12/2024 9:15 AM DRAMATIC ARTS HISTORIAN Ancillary Procedure [facility] Cardiology [address] [place] [phone] Abnormal EKG 06/07/2024 Telephone [facility] [address] [place] [address] Bryn Peterson MD Med Management 06/06/2024 11:15 AM DRAMATIC ARTS HISTORIAN Office Visit [facility] [address] [address] Bryn Peterson MD Polycystic ovarian syndrome (Primary Dx); Prediabetes; Class 2 severe obesity due to excess calories with serious comorbidity and body mass index (BMI) of 37.0 to 37.9 in adult (HCC); Vitamin D deficiency; Severe binge-eating disorder from Last 3 Months Immunizations Immunization Administration Dates Next Due Influenza, Split 05/12/2013 [...] HISTORY myringotomy tubes: 1989 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 HISTORY [facility] 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 HISTORY right lens implant : Dr Barrios - [facility] 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 HISTORY 2019 breast bx R - benign 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 HISTORY milk duct removed right breast ; benign papilloma: Dr Alonso [facility] 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 HISTORY left eye removed 02-10-12, prosthetic: Dr Fidel Hsu - [facility] 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 HISTORY 05/10/1982 - 05/09/1983 retinal reattachment TYMPANOSTOMY TUBE PLACEMENT 05/10/1992 - 05/09/1993 tubes in ears 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 HISTORY 05/10/2011 - 05/09/2012 Left eye removal 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 HISTORY 05/10/2011 - 05/09/2012 milk duct removal CATARACT EXTRACTION 1981 - 05/09/1982 Bilateral Cataract extraction TONSILLECTOMY AND ADENOIDECTOMY 05/10/2015 - 05/09/2016 BREAST BIOPSY 12/19/2019 Left UTERINE FIBROID SURGERY ROTATOR CUFF REPAIR APPENDECTOMY CATARACT EXTRACTION 1980 Medical History Medical History Date Comments Hx Other Medical L/R cataract ex traction Hx Other Medical Detached Retina Hx Other Medical Scar tissure re moval Left Eye Hx Other Medical myringotomy tub es Hx Other Medical Menorrhagia Hx Other Medical [place] teeth ex traction 12/18 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 Hx Other Medical right lens impl ant [...] Breast discharge Morbid obesity (HCC) Asthma Anxiety Cataract 1981 Menstrual problem Blindness 1981 Family History Medical History Relation Name Comments Alcohol abuse Father Anemia Father Asthma Father COPD Father Cancer Father Heart attack Maternal Grandfather Heart disease Maternal Grandfather Stroke Maternal Grandfather Stroke Maternal Grandmother Arthritis Mother Diabetes Mother Depression Other 1 Sister 1 Diabetes Other 1 Sister 1 Family history of Diabetes mellitus; Heart [...] Status Comments Father Maternal Grandfather Maternal Grandmother Mother Alive Other 1 Sister 1 Other 2 Other 3 Other 4 Other 5 Other 6 Other 7 Other 8 Other 9 Paternal Grandmother Social History Tobacco Use Types Packs/Day Years Used Date Smoking Tobacco: Never Smokeless Tobacco: Never Tobacco Cessation:Counseling Given: Not Answered Alcohol Use Standard Drinks/Week Comments No 0 [...] on file Legal Sex Female 10:37 AM DRAMATIC ARTS HISTORIAN Gender Identity Not on file Sexual Orientation Not on file Obstetrics History Last Filed Vital Signs Vital Sign Reading Time Taken Comments Blood Pressure 100/76 07/05/2024 10:22 AM DRAMATIC ARTS HISTORIAN Pulse 80 07/05/2024 10:22 AM DRAMATIC ARTS HISTORIAN Temperature 36.2 C (97.2 F) 05/19/2021 11:04 AM DRAMATIC ARTS HISTORIAN Respiratory Rate 15 06/06/2024 11:03 AM DRAMATIC ARTS HISTORIAN Oxygen Saturation 98% 07/05/2024 10:22 AM DRAMATIC ARTS HISTORIAN Inhaled Oxygen Concentration - - Weight 106.6 kg (235 lb) 06/06/2024 11:03 AM DRAMATIC ARTS HISTORIAN Height 167.6 cm (5' 6 ) 07/05/2024 10:22 AM DRAMATIC ARTS HISTORIAN Body Mass Index 37.93 06/06/2024 11:03 AM DRAMATIC ARTS HISTORIAN Plan of Treatment Health Maintenance Due Date Last Done Comments Cervical Cancer Screening 1981 Varicella Vaccines (1 of 2 - 13+ 2-dose series) 1994 Regular Well Visit/Exam 18-64 1999 DTaP/Tdap/Td Vaccine (2 - Td or Tdap) 07/24/2018 07/24/2008 Breast Cancer Screening-Mammogram 03/18/2022 03/18/2021, 12/12/2019 Covid-19 Vaccine ( season) 2024 02/15/2021, 07/26/2020, 07/04/2020 Depression Screening 11/09/2024 11/10/2023 Hepatitis B Screening Completed 11/10/1999 Hepatitis C Screening Completed 12/19/2019, 020 Influenza Vaccine Completed 01/21/2024, , 04/01/2022, Additional history exists HPV Vaccines Aged Out No longer eligi ble based on patient's age to complete this topic Pneumococcal vaccine <65 Aged Out No longer eligible based on patient's age to complete this topic Procedures Procedure Name Priority Date/Time Associated Diagnosis Comments NM MPI SPECT (REST AND/OR STRESS) MULTIPLE STUDIES Schedule Routine, Read Routine (OP Routine) 06/12/2024 11:04 AM DRAMATIC ARTS HISTORIAN Abnormal EKG DIAGNOSTIC MAMMOGRAM BILATERAL W RM Schedule Routine, Read Routine (OP Routine) 03/18/2021 3:39 PM DRAMATIC ARTS HISTORIAN Nipple discharge in female HEPATITIS C ANTIBODY Routine 12/19/2019 4:49 PM CDT from Last 3 Months or Most Recently Relevant to Health Maintenance Results * NM MPI SPECT (Rest and/or Stress) Multiple Studies (06/12/2024 11:04 AM DRAMATIC ARTS HISTORIAN) LV EF % CONS SCIMAGE Anatomical Region Laterality Modality Body N/A Nuclear Medicine 06/12/2024 9:16 AM DRAMATIC ARTS HISTORIAN Narrative 06/12/2024 4:24 PM DRAMATIC ARTS HISTORIAN [facility] Cardiology [address] [facility] [address], [place] [address] [facility] [address], [place] [address] P:[phone] P:[phone] MPI Imaging Report Patient Name: CESARIO HASSAN V : 1980 Study Date: 06/12/2024 9:16:32 AM Gender: F Tech: [facility] Location: [facility] Provider: MARTHA LAWRENCE Height(Cm): 167.6 BSA: Weight(Kg): 103.4 BMI: 36.81 Order Provider: MARTHA LAWRENCE - PHYSICIAN: Referring Physician: Dr. Lawrence. HCG Physician: Yessi Miles M.D., WilA.CCarlitoCCarlito Interpreting Physician: Gregory Rodríguez M.D.,WilACarlitoCCarlitoC. Stress Supervision: Gregory Rodríguez M.D.,CheryleCNickolas. PROCEDURES: Pharmacologic SPECT Report: Myocardial perfusion imaging with Tc99M Sestamibi SPECT at rest and stress post regadenoson (Lexiscan) infusion. Treadmill stress converted to ambulatory Lexiscan stress at 8:01 due to dizziness and unable to reach target heart rate. INDICATIONS: Chest Pain, Hypertension, Family Hx CAD, and R94.31 Abnormal electrocardiogram (ECG) (EKG). FINDINGS: Procedural Findings: One day rest/stress was used. Tc99m Sestamibi injected IV at rest was 12.5 millicuries 37.6 millicuries of Tc99M Sestamibi injected IV during Lexiscan stress Lexiscan 0.4mg given IV over 10 seconds with low level exercise: 1.2 MPH Pharmacologic stress related symptoms and/or side effects during infusion include dizziness and shortness of breath. Symptoms were resolved with rest and completion of Lexiscan protocol. Baseline heart rate was 75 BPM Maximum Heart Rate Achieved was: 146 BPM Baseline blood pressure was 124/84 mmHg Post Stress Blood Pressure was 126/76 mmHg Termination: Protocol complete. Resting ECG: Normal sinus rhythm, normal ECG. Post ECG: No diagnostic ST changes. Perfusion Findings: Normal perfusion imaging. No definite fixed or reversible defects. A TID of 0.71 was automatically calculated. LV Function: Global left ventricular function is normal. Left ventricular ejection fraction is 68 %. CONCLUSIONS: Normal sinus rhythm, normal ECG. No diagnostic ST changes. Global left ventricular function is normal. Left ventricular ejection fraction is 68 %. Normal perfusion imaging. No definite fixed or reversible defects. A TID of 0.71 was automatically calculated. Electronically Signed By: Gregory Rodríguez MD, [facility] 06/12/2024 4:23:21 PM DRAMATIC ARTS HISTORIAN Electronically Signed By: Gregory Rodríguez MD, [facility] 06/12/2024 4:23:21 PM DRAMATIC ARTS HISTORIAN Procedure Note Gregory Rodríguez MD - 06/12/2024 [facility] Cardiology [address] [facility] [address], [place] [address] [facility] [address], [place] [address] P:[phone] P:[phone] MPI Imaging Report Patient Name: CESARIO HASSAN V : 1980 Study Date: 06/12/2024 9:16:32 AM Gender: F Tech: [facility] Location: [facility] Provider: MARTHA LAWRENCE Height(Cm): 167.6 BSA: Weight(Kg): 103.4 BMI: 36.81 Order Provider: MARTHA LAWRENCE - PHYSICIAN: Referring Physician: Dr. Lawrence. HCG Physician: Yessi Miles M.D., FCarlitoA.CCarlitoC. Interpreting Physician: Gregory Rodríguez M.D.,WilA.CCarlitoCCarlito Stress Supervision: Gregory Rodríguez M.D.,FCarlitoA.CJessy PROCEDURES: Pharmacologic SPECT Report: Myocardial perfusion imaging with Tc99M Sestamibi SPECT at rest and stresspost regadenoson (Lexiscan) infusion. Treadmill stress converted to ambulatoryLexiscan stress at 8:01 due to dizziness and unable to reach target heart rate. INDICATIONS: Chest Pain, Hypertension, Family Hx CAD, and R94.31 Abnormalelectrocardiogram (ECG) (EKG). FINDINGS: Procedural Findings: One day rest/stress was used. Tc99m Sestamibi injected IV at rest was 12.5 millicuries 37.6 millicuries of Tc99M Sestamibi injected IV during Lexiscan stress Lexiscan 0.4mg given IV over 10 seconds with low level exercise: 1.2MPH Pharmacologic stress related symptoms and/or side effects duringinfusion include dizziness and shortness of breath. Symptoms were resolved with rest and completion of Lexiscan protocol. Baseline heart rate was 75 BPM Maximum Heart Rate Achieved was: 146 BPM Baseline blood pressure was 124/84 mmHg Post Stress Blood Pressure was 126/76 mmHg Termination: Protocol complete. Resting ECG: Normal sinus rhythm, normal ECG. Post ECG: No diagnostic ST changes. Perfusion Findings: Normal perfusion imaging. No definite fixed or reversible defects. A TIDof 0.71 was automatically calculated. LV Function: Global left ventricular function is normal. Left ventricular ejectionfraction is 68 %. CONCLUSIONS: Normal sinus rhythm, normal ECG. No diagnostic ST changes. Global left ventricular function is normal. Left ventricular ejectionfraction is 68 %. Normal perfusion imaging. No definite fixed or reversible defects. A TIDof 0.71 was automatically calculated. Electronically Signed By: Gregory Rodríguez MD, [facility] 06/12/2024 4:23:21 PM DRAMATIC ARTS HISTORIAN Electronically Signed By: Gregory Rodríguez MD, [facility] 06/12/2024 4:23:21 PM DRAMATIC ARTS HISTORIAN us Martha Lawrence MD IMG NM PROCEDURES Final Re sult * Diagnostic Mammogram Bilateral W Rm (03/18/2021 3:39 PM DRAMATIC ARTS HISTORIAN) Anatomical Region Laterality Modality Breast Bilateral Mammography 03/18/2021 4:19 PM DRAMATIC ARTS HISTORIAN Impressions 03/18/2021 4:52 PM DRAMATIC ARTS HISTORIAN 1. Two intraductal masses and/or debris within [...] Meryl Olguin M.D. Narrative 03/18/2021 4:52 PM DRAMATIC ARTS HISTORIAN EXAMINATION: BILATERAL DIGITAL DIAGNOSTIC MAMMOGRAM INCLUDING CAD [...] Hep C Ab Nonreactive Nonreactive [facility] ([facility]) Comment: Interpretive Data Nonreactive: Antibodies to HCV not detected. Does NOT exclude the possibility of recent exposure to HCV. Equivocal: Equivocal for HCV antibodies. Supplemental molecular testing will be automatically performed to determine infection status in accordance with current CDC screening recommendations. Reactive: Positive for HCV antibodies. This may represent current or past HCV infection. Supplemental molecular testing will be automatically performed to determine current infection status in accordance with current CDC screening recommendations. Interpretive data was last revised on 2019. Testing performed by: [facility], [address] [place] [address], [place]., [address] Blood specimen (specimen) 12/19/2019 4:49 PM CDT 12/20/2019 9:45 AM CDT Kathryn Rosas MD LAB MICROBIOLOGY - GENERAL O RDERABLES Edited Result - Final [facility] ([facility]) [facility] [place] [address] from Last 3 Months or Most Recently Relevant to Health Maintenance Insurance [employer] OOS Member Subscriber Plan / Payer (Ef fective 2013-Present) Name:Cesario Hassan V Relation to Subscriber:Self Name:Cesario Hassan V Payer ID:[id number] (NAIC) Type:[employer] Address: [address] ALLEGIANCE [employer] OOS [employer] ALLEGIANCE Care Teams Controls Operator Molded Goods Relationship Specialty Start Date End Date Martha Lawrence MD [address] [place] [address] PCP - General 02/24/19 Zoran Willams Family Medicine 05/18/18
--- OUTSIDE RECORDS SUMMARY | 2024-07-24 19:05 | XMS_ITS | Clinical Summary ---
Author Organization [facility] Address [address] [place] [address] Phone Care Team Providers Care Seasoner Hand Name Role Phone Martha Lawrence MD Primary Care Provider [phone] Allergies Active Allergy Reactions Criticality Noted Date Comments Oxycodone-Acetaminophen Diarrhea,Nausea And Vomiting,nausea,Vomi ting Low 03/26/2020 Penicillins Hives,Rash High 01/10/2016 Povidone-Iodine Medium 09/05/2020 Other reaction(s): Eye Itching, Eye Redness Sulfa Antibiotics Itching,Other (see comments),Rash Medium 04/29/2018 Other reaction(s): Eye Discomfort, Eye Itching, Urticaria Reaction: Conjunctivitis, Medications Medication Sig Dispensed Refills Start Date [...] Comments Blood Pressure 122/72 07/07/2021 3:09 PM PROCUREMENT INTERNSHIP Pulse 72 07/07/2021 3:09 PM PROCUREMENT INTERNSHIP Temperature 36.5 C (97.7 F) 07/07/2021 3:09 PM PROCUREMENT INTERNSHIP Respiratory Rate - - Oxygen Saturation - - Inhaled Oxygen Concentration - - Weight 113 kg (249 lb) 07/07/2021 3:09 PM PROCUREMENT INTERNSHIP Height 165.1 cm (5' 5 ) 07/07/2021 3:09 PM PROCUREMENT INTERNSHIP Body Mass Index 41.44 07/07/2021 3:09 PM PROCUREMENT INTERNSHIP Plan of Treatment Health Maintenance Due Date Last Done Comments Influenza Vaccine (#1) 2024 , 03/22/2020, 05/12/2013, Additional history exists Care Teams Seasoner Hand Relationship Specialty Start Date End Date Martha Lawrence MD [address] [employer] [place] [address] PCP - General Internal Medicine 02/24/21
--- OUTSIDE RECORDS SUMMARY | 2024-07-24 19:05 | XMS_ITS | Clinical Summary ---
Author Organization [facility] Address [address] [place] [address] Care Team Providers Care Electrical Panel Builder Name Role Phone Zuly Johnson Sushant ELECTRICAL TECHNICIAN INSTRUCTOR Primary Care Provider [phone] Allergies Active Allergy Reactions Criticality Noted Date [...] on file Legal Sex Female 4:19 PM PULL TAB DEALER Gender Identity Not on file Sexual Orientation Not on file Last Filed Vital Signs Vital Sign Reading Time Taken Comments Blood Pressure 134/98 03/16/2019 2:45 PM PULL TAB DEALER Pulse 97 03/16/2019 2:45 PM PULL TAB DEALER Temperature 36.8 C (98.2 F) 03/16/2019 2:45 PM PULL TAB DEALER Respiratory Rate - - Oxygen Saturation 98% 03/16/2019 2:45 PM PULL TAB DEALER Inhaled Oxygen Concentration - - Weight 112.9 kg (249 lb) 03/16/2019 2:45 PM PULL TAB DEALER Height 167.6 cm (5' 6 ) 03/16/2019 2:45 PM PULL TAB DEALER Body Mass Index 40.19 03/16/2019 2:45 PM PULL TAB DEALER Plan of Treatment Health Maintenance Due Date [...] Name Priority Date/Time Associated Diagnosis Comments MAMMO 3D MOLINA DIAGNOSTIC SANDOVAL AT W OR WO CAD Routine 01/20/2019 from Last 3 Months or Most Recently Relevant to Health Maintenance Results * MAMMO DIAG BILAT 3D MOLNIA W OR WO CAD (01/20/2019) Anatomical Region Laterality Modality Breast Bilateral Other us Abstract Provider MAMMO ORDERABLES Final Result from Last 3 Months or Most Recently Relevant to Health Maintenance Insurance [employer] BLUE ACCESS/TRUE BLUE PPO Care Teams Electrical Panel Builder Relationship Specialty Start Date End Date Zuly Johnson FNP PCP - General NURSE PRACTITIONER 04/29/18
--- OUTSIDE RECORDS SUMMARY | 2024-07-24 19:06 | XMS_ITS | Referral Summary ---
Author Organization [facility] Address [address] [place] [address] Care Team Providers Care Contact Center Representative Name Role Phone Martha Lawrence MD Primary Care Provider [phone] Kathy Corley APRN-JUN Unavailable [phone] Gibran David Unavailable Source Comments [facility],non-owned Affiliates and Associated Physician Practices is amultiple site organization consisting of ambulatory clinics and hospital sitesin [place], [place] and [place]. This disclosure is being madepursuant to the Care Everywhere program and may not contain all information available regarding this patient. Last updated 18.[facility] Encounters Date Type Department Care Team Description 06/23/2024 1:15 PM LAMP SHADE ASSEMBLER Clinical Support [facility] - Ophthalmology [address] [place] [phone] Fidel Moss MD Secondary glaucoma, mild stage, right (Primary Dx) 06/23/2024 Travel 06/23/2024 2:00 PM LAMP SHADE ASSEMBLER Office Visit [facility] [address] [place] [phone] Fidel Moss MD Secondary glaucoma, mild stage, right (Primary Dx) 06/07/2024 12:45 PM LAMP SHADE ASSEMBLER Clinical Support [facility]mology [address] [place] [phone] Chrystal Roa MD Status post eye surgery (Primary Dx); History of vitrectomy 06/07/2024 Travel 06/07/2024 1:00 PM LAMP SHADE ASSEMBLER Office Visit [facility] Ophthalmology [address] [place] [phone] Chrystal Roa MD Status post vitrectomy surgery for vitreous floaters, right eye 04/18/2020 (Primary Dx); History of vitrectomy; Anophthalmos of left eye; Pseudophakia; 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; Secondary glaucoma, mild stage, right from Last 3 Months Allergies Active Allergy [...] at bedtime 7.5 mL 4 06/26/2021 Active montelukast (Singulair) 10 MG tabletIndications:A sthma [...] (one) tablet by mouth every morning Active Linzess 72 MCG capsule Take 1 (one) capsule by mouth once daily 06/03/2023 Active tirzepatide (Mounjaro) 5 MG/0.5ML injection Inject 5 (five) mg subcutaneously every 7 days 2 mL 5 04/06/2023 Active Vraylar 3 MG capsule Take 1 (one) capsule by mouth once daily 05/20/2023 Active escitalopram (Lexapro) 20 MG tablet Take 1 (one) tablet by mouth every morning Active Spravato, 84 MG Dose, 28 MG/DEVICE nasal spray 3 sprays in each nostril Nasally every 10 days for 1 days 06/12/2024 Active Spravato, 56 MG Dose, nasal spray 07/23/2023 Active eszopiclone (Lunesta) 2 MG tablet TAKE 1 TABLET BY MOUTH EVERY DAY AT BEDTIME NEEDED FOR 30 DAYS 07/20/2023 Active HYDROcodone-acetami nophen (Elmira) 7.5-325 MG tablet Take 1 (one) tablet by mouth every 4 hours as needed pain 02/23/2024 Active Zepbound 5 MG/0.5ML injection Inject 5 (five) mg subcutaneously every 7 days 06/16/2024 Active zaleplon (Sonata) 10 MG capsule 1 capsule at bedtime Oral Once a day for 30 days As needed Active topiramate (Topamax) 50 MG tablet TAKE 1 TABLET BY MOUTH TWICE A DAY Oral for 90 Days 06/06/2024 Active Active Problems Problem Noted Date Diagnosed [...] eye. Fidel Moss MD 06/21/2020 10:19 AM Disease of tonsils and adenoids 03/26/2020 Overview [...] Nasal saline spray (Simply saline, Little Remedies, [place], [place]) 2 second sprays or 2 squeezes into each nostril while looking down over the sink, do not need to sniff in. Follow up in 6 months, earlier with any ear drainage 07/06/2019 T-tubes placed in Office ETD (Eustachian tube dysfunction), left 05/26/19 20 [...] Nasal saline spray (Simply saline, Little Remedies, [place], [place]) 2 second sprays or 2 squeezes into [...] deficiency 05/14/2014 Overview (03/26/2020): Vitamin D deficiency Generalized anxiety disorder 09/23/2013 Overview (03/26/2020): ANXIETY [...] 10:21 AM Congenital glaucoma of right eye Resolved Problems Problem Noted Date Diagnosed Date Resolved Date Acute posthemorrhagic anemia 03/26/2020 06/12/2024 Chronic laryngitis 03/26/2020 Chronic rhinitis 03/26/2020 06/12/2024 Disease of larynx 03/26/2020 06/12/2024 Acute recurrent maxillary sinusitis 05/26/2019 06/12/2024 Overview (03/26/2020): Last Assessment & Plan: Take Cefdinir with a meal daily Nasal saline spray (Simply saline, Little Remedies, [place], [place]) 2 second sprays or 2 squeezes into [...] left ear, will consider ear tube placement Anemia 09/23/2013 06/12/2024 Overview (03/26/2020): Overview: Post hemo ANEMIA NOS Immunizations Name Administration Dates Next Due INFLUENZA [...] 105 09/25/2022 8:32 AM CDT Temperature 37.4 C (99.4 F) 09/25/2022 8:32 AM CDT Respiratory Rate 21 09/25/2022 8:32 AM CDT Oxygen Saturation 98% 09/25/2022 8:32 AM CDT Inhaled Oxygen Concentration - - Weight 115.7 kg (255 lb) 04/21/2022 12:37 PM LAMP SHADE ASSEMBLER Height 165.1 cm (5' 5 ) 04/21/2022 12:37 PM LAMP SHADE ASSEMBLER Body Mass Index 42.43 04/21/2022 12:37 PM LAMP SHADE ASSEMBLER Functional Status Functional Status Response Date of [...] Care Team (Late st Contact Info) Description 12/19/2024 1:40 PM CDT Office Visit [facility] - Op[facility]mology [address] [place] [phone] Fidel Moss MD [facility] [place] [phone] 06/06/2025 1:00 PM LAMP SHADE ASSEMBLER Office Visit [facility] [address] [place] [phone] Chrystal Roa MD [address] [place] [address] [place] [address] Medical Devices Implanted Type Area Senior Interior Designer Device Identifier Shelf Expiration Date Model / Serial / Lot Drain Glcm Thk.9mm Blnt Tpr Ahmed Flxb Implanted:Qty: 1 on 07/03/2020 by Franco Martinez MD at [facility] 04/30/2022 FP7 / / [id number] Graft Tissue Ttpl Ioptch Sclr .8x.5cm - [id number] Implanted:Qty: 1 on 07/03/2020 by Franco Martinez MD at [facility] [employer] 03/09/2025 [id number] / / [id number] Procedures Procedure Name Priority Date/Time Associated Diagnosis Comments RETINAL ANALYSIS OCT Routine 06/07/2024 12:43 PM LAMP SHADE ASSEMBLER History of vitrectomy Status post eye surgery LIPID PROFILE AM Draw 04/01/2022 6:23 AM LAMP SHADE ASSEMBLER from Last 3 Months or Most Recently Relevant to Health Maintenance Results * RETINAL ANALYSIS OCT (06/07/2024 12:43 PM LAMP SHADE ASSEMBLER) Anatomical Region Laterality Modality Head External-Camera Photography Narrative 06/12/2024 12:19 AM LAMP SHADE ASSEMBLER Images from the original result were not included. OCT Macula OD: Normal retina crosssection with preservation of fovea, clivus, and cellular lamina OS: Prosthesis OD (top 06/07/23, bottom 06/07/2024) Chrystal Roa MD OPHTHALMOLOGY SCHED ORD W PACS * (ABNORMAL) LIPID PROFILE (04/01/2022 6:23 AM LAMP SHADE ASSEMBLER) Cholesterol 154 <200 mg/dL 04/01/2022 6:48 AM LAMP SHADE ASSEMBLER [facility] Triglycerides 133 <150 mg/dL 04/01/2022 6:48 AM LAMP SHADE ASSEMBLER [facility] HDL Cholesterol 35(L) >40 mg/dL 2 6:48 AM LAMP SHADE ASSEMBLER [facility] LDL Calculated 92 <130 mg/dL 04/01/2022 6:48 AM LAMP SHADE ASSEMBLER [facility] VLDL Calculated 27 <=30 mg/dL 2 6:48 AM LAMP SHADE ASSEMBLER [facility] Chol HDL Ratio 4.4 <4.5 04/01/2022 6:48 AM LAMP SHADE ASSEMBLER [facility] LDL/HDL Ratio 2.6 <5.0 04/01/2022 6:48 AM LAMP SHADE ASSEMBLER [facility] Blood BLOOD SPECIMEN / Unknown Venipuncture / Unknown 04/01/2022 6:23 AM LAMP SHADE ASSEMBLER 04/01/2022 6:29 AM LAMP SHADE ASSEMBLER Shade Reddy MD LAB - CHEMISTRY [facility] Organization Address City/State/ZIP Co de Phone Number [facility] [address] [place] [address] from Last 3 Months or [...] 11:08 PM 09/09/2020 5:05 PM Care Teams Contact Center Representative Relationship Specialty Start Date End Date Martha Lawrence MD PCP - General 03/21/20 Kathy Corley, DIRECTOR OF IT OPERATIONS-SENIOR [employer] PARACHUTIST [address] DE[place] [phone] Nurse Practitioner Ophthalmology 12/14/22 Gibran David [address] [place] [address] 12/14/22
--- OUTSIDE RECORDS SUMMARY | 2024-07-24 19:06 | XMS_ITS | Clinical Summary ---
Author Organization [facility] Address [address] [place] [address] Care Team Providers Care Medical Writer Name Role Phone Martha Lawrence MD Primary Care Provider [phone] Kathy Corley Unavailable [phone] Gibran David Unavailable Source Comments [facility],non-owned Affiliates and Associated Physician Practices is amultiple site organization consisting of ambulatory clinics and hospital sitesin [place], [place], [place] and [place]. This disclosure is being madepursuant to the Care Everywhere program and may not contain all information available regarding this patient. Last updated 18.[facility] Allergies Active Allergy Reactions Criticality Noted Date [...] FOR 30 DAYS 07/20/2023 Active HYDROcodone-acetami nophen (Mentcle) 7.5-325 MG tablet Take 1 (one) tablet [...] Nasal saline spray (Simply saline, Little Remedies, [place], [place]) 2 second sprays or 2 squeezes into [...] Nasal saline spray (Simply saline, Little Remedies, [place], [place]) 2 second sprays or 2 squeezes into [...] Nasal saline spray (Simply saline, Little Remedies, [place], [place]) 2 second sprays or 2 squeezes into [...] Overview (03/26/2020): Overview: Post hemo ANEMIA NOS Encounters Date Type Department Care Team Description 06/23/2024 2:00 PM THERMOSCREW OPERATOR Office Visit [facility] [address] [place] [phone] Fidel Moss MD Secondary glaucoma, mild stage, right (Primary Dx) 06/23/2024 1:15 PM THERMOSCREW OPERATOR Clinical Support [facility] [address] [place] [phone] Fidel Moss MD Secondary glaucoma, mild stage, right (Primary Dx) 06/23/2024 Travel 06/07/2024 1:00 PM THERMOSCREW OPERATOR Office Visit [facility] [address] [place] [phone] Chrystal Roa MD Status post vitrectomy surgery for vitreous floaters, right eye 04/18/2020 (Primary Dx); History of vitrectomy; Anophthalmos of left eye; Pseudophakia; 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; Secondary glaucoma, mild stage, right 06/07/2024 12:45 PM THERMOSCREW OPERATOR Clinical Support [facility] [address] [place] [phone] Chrystal Roa MD Status post eye surgery (Primary Dx); History of vitrectomy 06/07/2024 Travel from Last [...] 115.7 kg (255 lb) 04/21/2022 12:37 PM THERMOSCREW OPERATOR Height 165.1 cm (5' 5 ) 04/21/2022 12:37 PM THERMOSCREW OPERATOR Body Mass Index 42.43 04/21/2022 12:37 PM THERMOSCREW OPERATOR Plan of Treatment Upcoming Encounters Date Type Department Care Team (Late st Contact Info) Description 12/19/2024 1:40 PM CDT Office Visit [facility] - Ophthalmology [address] [place] [phone] Fidel Moss MD [facility] [place] [phone] 06/06/2025 1:00 PM THERMOSCREW OPERATOR Office Visit [facility] - Ophthalmology [address] [place] [phone] Chrystal Roa MD [address] [place] [address] [place] [phone] Health Maintenance Due Date Last Done Comments PAP SMEAR 1981 HIV SCREENING 01/13/1996 HEPATITIS C SCREENING 01/08/1999 HEPATITIS B VACCINE (1 of 3 - 19+ 3-dose series) 01/13/2000 DTAP/TDAP/TD VACCINES (2 - Td or Tdap) 07/24/2018 07/24/2008 MAMMOGRAM 03/18/2023 03/18/2021, 0810/2019, 12/12/2019, Additional history exists COVID-19 VACCINE ( - season) 2024 INFLUENZA VACCINE (#1) 2024 2, 02/11/2021, 03/22/2020, Additional history exists DEPRESSION SCREENING 05/10/2024 04/29/2022, 04/27/2022, 04/21/2022, Additional history exists LIPID TESTING 04/01/2027 04/01/2022, 09/06/2020 ZOSTER VACCINE (1 of 2) 2031 HIB VACCINE Aged Out No longer eligi ble based on patient's age to complete this topic HPV VACCINE Aged Out No longer eligi ble based on patient's age to complete this topic MENINGOCOCCAL (Group B) VACCINE SHARED DECISION-MAKING Aged Out No longer eligible based on patient's age to complete this topic MENINGOCOCCAL GROUPS A/C/Y/W VACCINE Aged Out No longer eligible based on patient's age to complete this topic PNEUMOCOCCAL VACCINE Aged Out No long er eligible based on patient's age to complete this topic Medical Devices Implanted Type Area Acid Crane Operator Device Identifier Shelf Expiration Date Model / Serial / Lot Drain Glcm Thk.9mm Blnt Tpr Ahmed Flxb Implanted:Qty: 1 on 07/03/2020 by Franco Martinez MD at [facility] 04/30/2022 FP7 / / [id number] Graft Tissue Ttpl Ioptch Sclr .8x.5cm - [id number] Implanted:Qty: 1 on 07/03/2020 by Franco Martinez MD at [facility] [employer] 03/09/2025 [id number] / / [id number] Procedures Procedure Name Priority Date/Time Associated Diagnosis Comments RETINAL ANALYSIS OCT Routine 06/07/2024 12:43 PM THERMOSCREW OPERATOR History of vitrectomy Status post eye surgery LIPID PROFILE AM Draw 04/01/2022 6:23 AM THERMOSCREW OPERATOR from Last 3 Months or Most Recently Relevant to Health Maintenance Results * RETINAL ANALYSIS OCT (06/07/2024 12:43 PM THERMOSCREW OPERATOR) Anatomical Region Laterality Modality Head External-Camera Photography Narrative 06/12/2024 12:19 AM THERMOSCREW OPERATOR Images from the original result were not included. OCT Macula OD: Normal retina crosssection with preservation of fovea, clivus, and cellular lamina OS: Prosthesis OD (top 06/07/23, bottom 06/07/2024) Chrystal Roa MD OPHTHALMOLOGY SCHED ORD W PACS * (ABNORMAL) LIPID PROFILE (04/01/2022 6:23 AM THERMOSCREW OPERATOR) Cholesterol 154 <200 mg/dL 04/01/2022 6:48 AM THERMOSCREW OPERATOR [facility] Triglycerides 133 <150 mg/dL 04/01/2022 6:48 AM THERMOSCREW OPERATOR [facility] HDL Cholesterol 35(L) >40 mg/dL 2 6:48 AM THERMOSCREW OPERATOR [facility] LDL Calculated 92 <130 mg/dL 04/01/2022 6:48 AM THERMOSCREW OPERATOR [facility] VLDL Calculated 27 <=30 mg/dL 2 6:48 AM THERMOSCREW OPERATOR [facility] Chol HDL Ratio 4.4 <4.5 04/01/2022 6:48 AM THERMOSCREW OPERATOR [facility] LDL/HDL Ratio 2.6 <5.0 04/01/2022 6:48 AM THERMOSCREW OPERATOR [facility] Blood BLOOD SPECIMEN / Unknown Venipuncture / Unknown 04/01/2022 6:23 AM THERMOSCREW OPERATOR 04/01/2022 6:29 AM THERMOSCREW OPERATOR Shade Reddy MD LAB - CHEMISTRY [facility] [address] [place] [address] from Last 3 Months or [...] 11:08 PM 09/09/2020 5:05 PM Care Teams Medical Writer Relationship Specialty Start Date End Date Marhta Lawrence MD PCP - General 03/21/20 Kathy Corley, AIRCRAFT REFUELLER-FENCE MAKING MACHINE OPERATOR [address] [facility] DEPT [place] [address] Nurse Practitioner Ophthalmology 12/14/22 Gibran David [address] [address] 12/14/22
--- OUTSIDE RECORDS SUMMARY | 2024-07-24 19:06 | XMS_ITS | Referral Summary ---
Author Organization [facility] Address [address] [place] [address] Phone Care Team Providers Care Contact Center Representative Name Role Phone Zoran Willams Unavailable Unavailable Martha Johnson MD Primary Care Provider [phone]- [phone] Encounters Date Type Department Care Team Description 07/05/2024 10:30 AM COUNTY EXTENSION AGENT Office Visit [facility] Cardiology at [address] [place] [address] Yessi Miles MD Chest pain, atypical (Primary Dx) 06/20/2024 Telephone [facility] Diabetes and Endocrinology [address] [place] [address] Bryn Peterson MD Prior Auth (Zepbound) 06/16/2024 Telephone [facility] [address] [place] [phone] Bryn Peterson MD 06/12/2024 9:15 AM COUNTY EXTENSION AGENT Ancillary Procedure [facility] Cardiology [address] [facility] [address] [place] [address] Abnormal EKG 06/07/2024 Telephone [facility] [address], [place] [address] Bryn Peterson MD Med Management 06/06/2024 11:15 AM COUNTY EXTENSION AGENT Office Visit [facility] [place] [id number] [place] [phone] Bryn Peterson MD Polycystic ovarian syndrome [...] to include albumin milk. Okay to include Lithuanian yogurt Advise to look into intermittent fasting. Continue endurance and weight training Assessment & Plan (04/06/2023 4:26 PM COUNTY EXTENSION AGENT): Counseled patient on diet and exercise Advised patient to stop added sugars, cutback on processed foods Include whole grain, fruits and vegetables, greens, lean, organic fashion chicken Cutback on red meat and processed meat Avoid animal daily products. Advised to include albumin milk. Okay to include Lithuanian yogurt Advise to look into intermittent fasting. Continue endurance and weight training Prediabetes 04/06/2023 Assessment & Plan (11/10/2023 12:19 PM CDT): Counseled on diet and exercise Continue mounjaro 5 mg subQ weekly Assessment & Plan (04/06/2023 4:26 PM COUNTY EXTENSION AGENT): Counseled on diet and exercise Switch Ozempic [...] exercises Assessment & Plan (04/06/2023 4:26 PM COUNTY EXTENSION AGENT): Counseled on diet and exercise as above [...] Nasal saline spray (Simply saline, Little Remedies, [place], [place]) 2 second sprays or 2 squeezes into each nostril while looking down over the sink, do not need to sniff in. Follow up in 6 months, earlier with any ear drainage 07/06/2019 T-tubes placed in Office Nipple discharge in female 12/12/2019 Acute recurrent maxillary sinusitis 05/26/2019 Assessment & Plan (05/26/2019 10:38 AM COUNTY EXTENSION AGENT): Take Cefdinir with a meal daily Nasal saline spray (Simply saline, Little Remedies, [place], [place]) 2 second sprays or 2 squeezes into [...] drainage Assessment & Plan (07/07/2019 3:32 PM COUNTY EXTENSION AGENT): Bilateral myringotomy with T-tube placement in Office today Risks and complications discussed including anesthesia, bleeding, infection, hearing loss, ear tubes may fall out early, fall inwards, stay in longer than a few years, get clogged, fall out and leave a hole in the ear drum that would need to be patched, drain clear fluid. Assessment & Plan (05/26/2019 10:38 AM COUNTY EXTENSION AGENT): Take Cefdinir with a meal daily Nasal saline spray (Simply saline, Little Remedies, [place], [place]) 2 second sprays or 2 squeezes into [...] 05/26/2019 Assessment & Plan (05/26/2019 10:38 AM COUNTY EXTENSION AGENT): Hearing test right before follow up Left ear pain 05/26/2019 Assessment & Plan (05/26/2019 8:08 PM COUNTY EXTENSION AGENT): Take Cefdinir with a meal daily Nasal saline spray (Simply saline, Little Remedies, [place], [place]) 2 second sprays or 2 squeezes into [...] deficiency Assessment & Plan (04/06/2023 4:26 PM COUNTY EXTENSION AGENT): Check levels and further plans based on [...] 02/18/2012 Overview (08/13/2016): Iron deficiency anemia Immunizations Immunization Administration Dates Next Due Influenza, [...] on file Legal Sex Female 10:37 AM COUNTY EXTENSION AGENT Gender Identity Not on file Sexual Orientation Not on file Last Filed Vital Signs Vital Sign Reading Time Taken Comments Blood Pressure 100/76 07/05/2024 10:22 AM COUNTY EXTENSION AGENT Pulse 80 07/05/2024 10:22 AM COUNTY EXTENSION AGENT Temperature 36.2 C (97.2 F) 05/19/2021 11:04 AM COUNTY EXTENSION AGENT Respiratory Rate 15 06/06/2024 11:03 AM COUNTY EXTENSION AGENT Oxygen Saturation 98% 07/05/2024 10:22 AM COUNTY EXTENSION AGENT Inhaled Oxygen Concentration - - Weight 106.6 kg (235 lb) 06/06/2024 11:03 AM COUNTY EXTENSION AGENT Height 167.6 cm (5' 6 ) 07/05/2024 10:22 AM COUNTY EXTENSION AGENT Body Mass Index 37.93 06/06/2024 11:03 AM COUNTY EXTENSION AGENT Plan of Treatment Not on file Procedures Procedure Name Priority Date/Time Associated Diagnosis Comments NM MPI SPECT (REST AND/OR STRESS) MULTIPLE STUDIES Schedule Routine, Read Routine (OP Routine) 06/12/2024 11:04 AM COUNTY EXTENSION AGENT Abnormal EKG DIAGNOSTIC MAMMOGRAM BILATERAL W RM Schedule Routine, Read Routine (OP Routine) 03/18/2021 3:39 PM COUNTY EXTENSION AGENT Nipple discharge in female HEPATITIS C ANTIBODY Routine 12/19/2019 4:49 PM CDT from Last 3 Months or Most Recently Relevant to Health Maintenance Results * NM MPI SPECT (Rest and/or Stress) Multiple Studies (06/12/2024 11:04 AM COUNTY EXTENSION AGENT) LV EF % CONS SCIMAGE Anatomical Region Laterality Modality Body N/A Nuclear Medicine 06/12/2024 9:16 AM COUNTY EXTENSION AGENT Narrative 06/12/2024 4:24 PM COUNTY EXTENSION AGENT [facility] Cardiology [address] [facility] [address], [place] [address] [address] [facility] [address], [place] [address] P:[phone] P:[phone] MPI Imaging Report Patient Name: CESARIO JEWELL V : 1980 Study Date: 06/12/2024 9:16:32 AM Gender: F Tech: PIPO SR Location: [place] Ref Provider: MARTHA JOHNSON Height(Cm): 167.6 BSA: Weight(Kg): 103.4 BMI: 36.81 Order Provider: MARTHA JOHNSON - PHYSICIAN: Referring Physician: Dr. Johnson. HCG Physician: Yessi Miles M.D., Juan Interpreting Physician: Gregory Rodríguez M.D.,Juan Stress Supervision: Gregory Rodríguez M.D.,Juan PROCEDURES: Pharmacologic SPECT Report: Myocardial perfusion imaging [...] calculated. Electronically Signed By: Gregory Rodríguez MD, [facility] 06/12/2024 4:23:21 PM COUNTY EXTENSION AGENT Electronically Signed By: Gregory Rodríguez MD, [facility] 06/12/2024 4:23:21 PM COUNTY EXTENSION AGENT Procedure Note Gregory Rodríguez MD - 06/12/2024 [facility] Cardiology [address] [facility] [address], [place] [address] [address], [place] [address] P:[phone] P:[phone] MPI Imaging Report Patient Name: CESARIO JEWELL V : 1980 Study Date: 06/12/2024 9:16:32 AM Gender: F [facility] Location: [facility] Provider: MARTHA JOHNSON Height(Cm): 167.6 BSA: Weight(Kg): 103.4 BMI: 36.81 Order Provider: MARTHA JOHNSON - PHYSICIAN: Referring Physician: Dr. Johnson. HCG Physician: Yessi Miles M.D., F.A.C.C. Interpreting Physician: Gregory Rodríguez M.D.,F.A.C.C. Stress Supervision: Gregory Rodríguez M.D.,F.A.C.C. PROCEDURES: Pharmacologic SPECT Report: Myocardial perfusion imaging [...] calculated. Electronically Signed By: Gregory Rodríguez MD, [facility] 06/12/2024 4:23:21 PM COUNTY EXTENSION AGENT Electronically Signed By: Gregory Rodríguez MD, [facility] 06/12/2024 4:23:21 PM COUNTY EXTENSION AGENT Martha Johnson MD [facility] NM PROCEDURES Final Re sult * Diagnostic Mammogram Bilateral W Rm (03/18/2021 3:39 PM COUNTY EXTENSION AGENT) Anatomical Region Laterality Modality Breast Bilateral Mammography 03/18/2021 4:19 PM COUNTY EXTENSION AGENT Impressions 03/18/2021 4:52 PM COUNTY EXTENSION AGENT 1. Two intraductal masses and/or debris within [...] Meryl Olguin M.D. Narrative 03/18/2021 4:52 PM COUNTY EXTENSION AGENT EXAMINATION: BILATERAL DIGITAL DIAGNOSTIC MAMMOGRAM INCLUDING CAD [...] in the subareolar right breast. Procedure Note Merly Olguin MD - 03/18/2021 EXAMINATION: BILATERAL DIGITAL [...] last revised on 2019. Testing performed by: [facility], [address] [place] [address]., [id number] Blood specimen (specimen) 12/19/2019 4:49 PM CDT 12/20/2019 9:45 AM CDT us Kathryn Rosas MD LAB MICROBIOLOGY - GENERAL O RDERABLES Edited Result - Final LILIAN VALDES (BOOKER) 1 [facility] [place] [address] from Last 3 Months or Most Recently Relevant to Health Maintenance Insurance [employer] OOS LPATH ACCESS OOS [employer] LPATH ACCESS OOS [employer] Care Teams Contact Center Representative Relationship Specialty Start Date End Date Martha Johnson MD [address] [facility] [place] [address] PCP - General 02/24/19 Zoran Willams Family Medicine 05/18/18
--- OUTSIDE RECORDS SUMMARY | 2024-07-24 19:06 | XMS_ITS | Encounter Summary ---
Author Organization [facility] Address [address] [place] [address] Phone Care Team Providers Care Suggestion Clerk Name Role Phone Zoran Willams Unavailable Unavailable Martha Lawrence MD Primary Care Provider [phone]- [phone] Encounter Details Date Type Department Care Team (Late st Contact Info) Description 02/17/2020 Ophth Exam [facility] Ophthalmology [address] [place] [address] 1[address] [place] [id number] Juan Mcdaniel MD [address] [facility] [address] [place], [place] [id number] Social History Tobacco Use Types Packs/Day Years Used Date Smoking Tobacco: Never Smokeless Tobacco: Never Alcohol Use Standard Drinks/Week Comments No 0 (1 standard drink = 0.6 oz pur e alcohol) Comments No Sex and Gender Information Value Date Recorded Sex Assigned at Not on file Legal Sex Female 10:37 AM DEATH CLAIM EXAMINER Gender Identity Not on file Sexual [...] with poor dilation, small YAG Care Teams Suggestion Clerk Relationship Specialty Start Date End Date Martha Lawrence MD [address] [employer] [place] [address] PCP - General 02/24/19 Zoran Willams Family Medicine 05/18/18 documented as of this encounter
--- OUTSIDE RECORDS SUMMARY | 2024-07-24 19:06 | XMS_ITS | Encounter Summary ---
Author Organization [facility] Address [address] [place] [address] Care Team Providers Care Career Resource Technician Name Role Phone Zoran Willams Unavailable Unavailable Martha Lawrence MD Primary Care Provider [phone]- [phone] Encounter Details Date Type Department Care Team (Late st Contact Info) Description 12/18/2019 Telephone [facility] Advanced Medicine Breast Imaging 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
--- OUTSIDE RECORDS SUMMARY | 2024-07-24 19:06 | XMS_ITS | Patient Health Summary ---
Author Organization [facility] Address [address] [place] [address] Care Team Providers Care Warehouse Technician Name Role Phone Martha Lawrence MD Primary Care Provider [phone] Kathy Corley APRN-JUN Unavailable [phone] Gibran David Unavailable Note from [facility],non-owned Affiliates and Associated Physician Practices is amultiple site organization consisting of ambulatory clinics and hospital sitesin [place], [place]. This disclosure is being madepursuant to the Care Everywhere program and may not contain all information available regarding this patient. Last updated 18.[facility] Allergies * Oxycodone-Acetaminophen(Diarrhea,Nausea and/or Vomiting,Vomiting) -Low Criticality [...] at bedtime 4 refills by 06/26/2022 * montelukast (Singulair) 10 MG tablet(Started 04/03/2022) [...] (one) tablet by mouth every morning * Linzess 72 MCG capsule(Started 06/03/2023) Take 1 (one) capsule by mouth once daily * tirzepatide (Mounjaro) 5 MG/0.5ML injection(Started 04/06/2023) Inject 5 (five) mg subcutaneously every 7 days 5 refills remaining * Vraylar 3 MG capsule(Started 05/20/2023) Take 1 (one) capsule by mouth once daily * escitalopram (Lexapro) 20 MG tablet Take 1 (one) tablet by mouth every morning * Spravato, 84 MG Dose, 28 MG/DEVICE nasal spray(Started 06/12/2024) 3 sprays in each nostril Nasally every 10 days for 1 days * Spravato, 56 MG Dose, nasal spray(Started 07/23/2023) * eszopiclone (Lunesta) 2 MG tablet(Started 07/20/2023) TAKE 1 TABLET BY MOUTH EVERY DAY AT BEDTIME NEEDED FOR 30 DAYS * HYDROcodone-acetaminophen (Lapel) 7.5-325 MG tablet(Started 02/23/2024) Take 1 (one) tablet by mouth every 4 hours as needed pain * Zepbound 5 MG/0.5ML injection(Started 06/16/2024) Inject 5 (five) mg subcutaneously every 7 days * zaleplon (Sonata) 10 MG capsule 1 capsule at bedtime Oral Once a day for 30 days As needed * topiramate (Topamax) 50 MG tablet(Started 06/06/2024) TAKE 1 TABLET BY MOUTH TWICE A DAY Oral for 90 Days Active Problems Problem Noted Date Diagnosed Date [...] 08/13/2020 Secondary glaucoma, mild stage, right 06/21/2020 Disease of tonsils and adenoids 03/26/2020 Hypertrophy of nasal turbinates 03/26/2020 Hypertrophy of tonsils with hypertrophy of adeno ids 03/26/2020 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 Upper airway resistance syndrome 03/26/2020 History of eye prosthesis 02/17/2020 History of intraocular lens implant 02/17/2020 Dysfunction of both eustachian tubes 01/18/2020 ETD (Eustachian tube dysfunction), left 05/26/19 20 [...] apnea syndrome 05/14/2014 Vitamin D deficiency 05/14/2014 Generalized anxiety disorder 09/23/2013 Benign hypertension 09/23/2013 Major depressive disorder, recurrent episode, se ellis 09/23/2013 Impaired fasting glucose 09/23/2013 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/23/2013 Depressive disorder 09/23/2013 Iron deficiency anemia 02/18/2012 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 (AFLURIA, FLUZONE [...] 115.7 kg (255 lb) 04/21/2022 12:37 PM CRYPTOGRAPHIC VULNERABILITY ANALYST Height 165.1 cm (5' 5 ) 04/21/2022 12:37 PM CRYPTOGRAPHIC VULNERABILITY ANALYST Body Mass Index 42.43 04/21/2022 12:37 PM CRYPTOGRAPHIC VULNERABILITY ANALYST Medical Devices Implanted Type Area Program Therapist Device Identifier Shelf Expiration Date Model / Serial / Lot Drain Glcm Thk.9mm Blnt Tpr Ahmed Flxb Implanted:Qty: 1 on 07/03/2020 by Franco Martinez MD at [facility] 04/30/2022 FP7 / / [id number] Graft Tissue Ttpl Ioptch Sclr .8x.5cm - [id number] Implanted:Qty: 1 on 07/03/2020 by Franco Martinez MD at [facility] [employer] 03/09/2025 [id number] / / [id number] Procedures * RETINAL ANALYSIS OCT(Performed 06/07/2024) Performed for History of vitrectomy, Status post eye surgery * RETINAL ANALYSIS OCT(Performed 06/07/2023) Performed for [...] for vitreous floaters, right eye 04/18/2020 * IN WATER SHUNT-EXTRAOCUL RESERV(Performed 09/23/2020) Performed for Secondary [...] unspecified trigger Results * RETINAL ANALYSIS OCT (06/07/2024 12:43 PM CRYPTOGRAPHIC VULNERABILITY ANALYST) Anatomical Region Laterality Modality Head External-Camera Photography Narrative 06/12/2024 12:19 AM CRYPTOGRAPHIC VULNERABILITY ANALYST Images from the original result were not included. OCT Macula OD: Normal retina crosssection with preservation of fovea, clivus, and cellular lamina OS: Prosthesis OD (top 06/07/23, bottom 06/07/2024) Chrystal Roa MD OPHTHALMOLOGY SCHED ORD W PACS * RETINAL ANALYSIS OCT (06/07/2023 12:59 PM CRYPTOGRAPHIC VULNERABILITY ANALYST) Anatomical Region Laterality Modality Head External-Camera Photography Narrative 06/09/2023 1:29 PM CRYPTOGRAPHIC VULNERABILITY ANALYST Images from the original result were not [...] XR CHEST 1VW PORTABLE (04/01/2022 1:27 PM CRYPTOGRAPHIC VULNERABILITY ANALYST) Anatomical Region Laterality Modality Chest Radiographic Kitty ging 04/01/2022 1:28 PM CRYPTOGRAPHIC VULNERABILITY ANALYST Impressions 04/01/2022 1:29 PM CRYPTOGRAPHIC VULNERABILITY ANALYST IMPRESSION: No acute cardiopulmonary abnormalities. > Interpreting Provider: Sudhir Elmore MD on 04/01/2022 1:29 PM Narrative 04/01/2022 1:29 PM CRYPTOGRAPHIC VULNERABILITY ANALYST PROCEDURE: XR CHEST 1VW PORTABLE, DATE/TIME OF EXAM: 04/01/2022 1:27 PM, LOCATION [facility] INDICATION: [id number]: [...] RDERABLES * EKG 12-LEAD (04/01/2022 12:47 PM CRYPTOGRAPHIC VULNERABILITY ANALYST) Ventricular Rate 67 BPM [facility] Atrial Rate 67 BPM [facility] P-R Interval 168 ms [facility] QRS Duration ms 82 ms [facility] Q-T Interval ms 406 ms [facility] QTC Calculation (Bezet) 429 ms [facility] Calculated P Cable 30 degrees [facility] Calculated R Cable 11 degrees [facility] Calculated T Cable 31 degrees [facility] Interpretation EKG Normal sinus rhythm Normal ECG No previous ECGs available Confirmed by EDA SALEH MD ([id number]) on 04/01/2022 8:22:15 PM [facility] 04/01/2022 12:4 7 PM CRYPTOGRAPHIC VULNERABILITY ANALYST 04/01/2022 8:22 PM CRYPTOGRAPHIC VULNERABILITY ANALYST Shade Reddy MD ECG ORDERABLES [facility] * URINALYSIS REFLEX TO MICROSCOPIC NO CULTURE (04/01/2022 8:52 AM CRYPTOGRAPHIC VULNERABILITY ANALYST) Color UA Yellow Straw, Yellow 04/01/2022 9:11 AM CRYPTOGRAPHIC VULNERABILITY ANALYST [facility] Clarity UA Clear Clear 04/01/2022 9:11 AM CRYPTOGRAPHIC VULNERABILITY ANALYST [facility] Glucose UA Negative Negative 04/01/2022 9:11 AM CRYPTOGRAPHIC VULNERABILITY ANALYST [facility] Bilirubin UA Negative Negative 04/01/2022 9:11 AM CRYPTOGRAPHIC VULNERABILITY ANALYST [facility] Ketone UA Negative Negative 04/01/2022 9:11 AM CRYPTOGRAPHIC VULNERABILITY ANALYST [facility] Specific [place] UA 1.012 1.005 - 1.030 04/01/2022 9:11 AM CRYPTOGRAPHIC VULNERABILITY ANALYST [facility] Blood UA Negative Negative 04/01/2022 9:11 AM CRYPTOGRAPHIC VULNERABILITY ANALYST [facility] pH UA 6.0 5.0 - 8.0 pH 04/01/2022 9:11 AM CRYPTOGRAPHIC VULNERABILITY ANALYST [facility] Protein UA Negative Negative 04/01/2022 9:11 AM CRYPTOGRAPHIC VULNERABILITY ANALYST [facility] Urobilinogen UA Negative Negative mg/dL 04/01/2022 9:11 AM CRYPTOGRAPHIC VULNERABILITY ANALYST [facility] Nitrite UA Negative Negative 04/01/2022 9:11 AM CRYPTOGRAPHIC VULNERABILITY ANALYST [facility] Leukocyte UA Negative Negative 04/01/2022 9:11 AM CRYPTOGRAPHIC VULNERABILITY ANALYST [facility] Urine Microscopy Urine microscopy not indicated 04/01/2022 9:11 AM CRYPTOGRAPHIC VULNERABILITY ANALYST [facility] Urine URINE SPECIMEN OBTAINED BY CLEAN CATCH PROCEDURE / Unknown Collection / Unknown 04/01/2022 8:52 AM CRYPTOGRAPHIC VULNERABILITY ANALYST 04/01/2022 8:58 AM CRYPTOGRAPHIC VULNERABILITY ANALYST Narrative [facility] - 04/01/2022 9:11 AM CRYPTOGRAPHIC VULNERABILITY ANALYST Shade Reddy MD LAB - URINALYSIS ORD ERABLES [facility] [id number] [place] [address] * HCG URINE QUALITATIVE (04/01/2022 8:52 AM CRYPTOGRAPHIC VULNERABILITY ANALYST) Pathologist [facility] hCG Qualitative Urine Negative Negative 04/01/2022 9:06 AM CRYPTOGRAPHIC VULNERABILITY ANALYST [facility] Urine URINE / Unknown Collection / Unknown 04/01/2022 8:52 AM CRYPTOGRAPHIC VULNERABILITY ANALYST 04/01/2022 8:58 AM CRYPTOGRAPHIC VULNERABILITY ANALYST Shade Reddy MD LAB - URINALYSIS ORD ERABLES [facility] [address] [place] [address] * (ABNORMAL) URINE DRUG SCREEN IMMUNOASSAY (04/01/2022 8:52 AM CRYPTOGRAPHIC VULNERABILITY ANALYST) Pathologist [facility] Amphetamines Screen Urine Not detected Not detected 04/01/2022 9:16 AM CRYPTOGRAPHIC VULNERABILITY ANALYST [facility] Barbiturates Screen Urine Not detected Not detected 04/01/2022 9:16 AM CRYPTOGRAPHIC VULNERABILITY ANALYST [facility] Benzodiazepines Screen Urine Not detected Not detected 04/01/2022 9:16 AM [facility] Cannabinoids Screen Urine Detected(A) Not detected 04/01/2022 9:16 AM [facility] Cocaine Screen Urine Not detected Not detected 04/01/2022 9:16 AM [facility] Fentanyl Urine Detected(A) Not detected 04/01/2022 9:16 AM [facility] Methadone Screen Urine Not detected Not detected 04/01/2022 9:16 AM [facility] Opiate Screen Urine Not detected Not detected 04/01/2022 9:16 AM [facility] Phencyclidine Screen Urine Not detected Not detected 04/01/2022 9:16 AM [facility] Urine URINE / Unknown Collection / Unknown 04/01/2022 8:52 AM CRYPTOGRAPHIC VULNERABILITY ANALYST 04/01/2022 8:58 AM CRYPTOGRAPHIC VULNERABILITY ANALYST Narrative [facility] - 04/01/2022 9:16 AM CRYPTOGRAPHIC VULNERABILITY ANALYST This drug screen is designed for MEDICAL purposes only. It is not to be used for legal purposes, including but not limited to worker's comp, police investigations, occupational issues, child custody, etc. Any positive result is only presumptive and must be confirmed with a separate confirmatory test ordered by the physician. Drug Screening Test Cutoff Values: AMPHETAMINES 1000 ng/mL BARBITURATES 200 ng/mL BENZODIAZEPINES 200 ng/mL CANNABINOIDS(THC) 50 ng/mL COCAINE 300 ng/mL FENTANYL 1 ng/mL METHADONE 300 ng/mL OPIATES 300 ng/mL PHENCYCLIDINE(PCP) 25 ng/mL Shade Reddy MD LAB - URINE CHEMISTR Y ORDERABLES Performing Organization Address [facility] de Phone Number [facility] [address] [place] [address] * SYPHILIS ANTIBODY CASCADING REFLEX (04/01/2022 6:23 AM CRYPTOGRAPHIC VULNERABILITY ANALYST) Only the most recent of2 resultswithin the time period is included. Treponema pallidum Antibody Non Reactive Non Reactive 04/01/2022 12:08 PM [facility] Comment: No Laboratory evidence of syphilis infection. Note: Circulating antibodies may be low or undetectable in early infection. If recent exposure is suspected, re-draw sample in 2-4 weeks and repeat testing. Blood BLOOD SPECIMEN / Unknown Venipuncture / Unknown 04/01/2022 6:23 AM CRYPTOGRAPHIC VULNERABILITY ANALYST 04/01/2022 6:29 AM CRYPTOGRAPHIC VULNERABILITY ANALYST Shade Reddy MD LAB - SEROLOGY ORDER ELBERT Performing Organization Address [facility] de Phone Number [facility] [id number] [place] [address] * TSH REFLEX FREE T4 (04/01/2022 6:23 AM CRYPTOGRAPHIC VULNERABILITY ANALYST) Only the most recent of2 resultswithin the time period is included. TSH 1.258 0.350 - 4.940 uIU/mL 04/01/2022 7:08 AM CRYPTOGRAPHIC VULNERABILITY ANALYST [facility] Blood BLOOD SPECIMEN / Unknown Venipuncture / Unknown 04/01/2022 6:23 AM CRYPTOGRAPHIC VULNERABILITY ANALYST 04/01/2022 6:29 AM CRYPTOGRAPHIC VULNERABILITY ANALYST Shade Reddy MD LAB - CHEMISTRY JENNIFER MCFARLAND [facility] [address] [place] [address] * HEMOGLOBIN A1C (04/01/2022 6:23 AM CRYPTOGRAPHIC VULNERABILITY ANALYST) Only the most recent of2 resultswithin the time period is included. Hemoglobin A1c 5.1 <5.7 % 04/01/2022 7:53 AM CRYPTOGRAPHIC VULNERABILITY ANALYST [facility] Estimated Average Glucose 100 mg/dL 04/01/2022 7:53 AM [facility] Blood BLOOD SPECIMEN / Unknown Venipuncture / Unknown 04/01/2022 6:23 AM CRYPTOGRAPHIC VULNERABILITY ANALYST 04/01/2022 6:29 AM CRYPTOGRAPHIC VULNERABILITY ANALYST Narrative [facility] - 04/01/2022 7:53 AM CRYPTOGRAPHIC VULNERABILITY ANALYST HbA1c Interpretation: Normal: < 5.7% Pre-diabetes: 5.7-6.4% Diabetes: Equal to or greater than 6.5% Test results diagnostic of diabetes should be repeated for confirmation. Treatment target values recommended by ADA and other clinical organizations should be used to evaluate metabolic control in patients. This test should not replace glucose testing for patients with Type 1 diabetes, pediatric patients, or women. Falsely low HbA1c results may be observed in patients with clinical conditions that shorten erythrocyte life span or decrease mean erythrocyte age such as the presence of unstable hemoglobin variants, elevated hemoglobin F level or other causes of hemolytic anemia. HbA1c may not accurately reflect glycemic control when clinical conditions that affect erythrocyte survival are present. Severe Iron deficiency anemia may yield falsely high results. Hemoglobin A1c assay should not be used to diagnose or monitor diabetes in patients with malignancy, recent blood transfusion, chronic kidney or liver disease. This method may yield falsely low results when hemoglobin (HbF) exceeds 5% in the specimen. The [employer] Work[employer] assay for the measurement of HbA1c is a National Glycohemoglobin Standardization Program (NGSP) certified method. Shade Reddy MD LAB - CHEMISTRY JENNIFER [facility] Organization Address City/State/ZIP Co de Phone Number [facility] [address] [place] [address] * (ABNORMAL) CBC W AUTO DIFFERENTIAL (04/01/2022 6:23 AM CRYPTOGRAPHIC VULNERABILITY ANALYST) Only the most recent of2 resultswithin the time period is included. WBC 7.0 4.4 - 10.7 x10E9/L 04/01/2022 6:37 AM CRYPTOGRAPHIC VULNERABILITY ANALYST [facility] WBC Corrected 04/01/2022 6:37 AM [facility] RBC 5.39(H) 3.80 - 5.20 x10E12/L 04/01/2022 6:37 AM [facility] Hemoglobin 13.0 12.0 - 15.6 gm/dL 04/01/2022 6:37 AM [facility] Hematocrit 41.0 35.9 - 45.5 % 04/01/2022 6:37 AM [facility] MCV 76.1(L) 80.7 - 98.3 fl 04/01/2022 6:37 AM [facility] MCH 24.1(L) 26.7 - 34.0 pg 04/01/2022 6:37 AM [facility] MCHC 31.7 30.8 - 35.9 gm/dL 04/01/2022 6:37 AM [facility] Platelet Count 379 153 - 416 x10E9/L 04/01/2022 6:37 AM [facility] RDW-CV 14.7 12.1 - 14.9 % 04/01/2022 6:37 AM [facility] MPV 9.9 9.4 - 12.9 fl 04/01/2022 6:37 AM [facility] Neutrophils % 49.8 44.0 - 73.0 % 04/01/2022 6:37 AM [facility] Lymphocytes % 39.4 20.0 - 43.0 % 04/01/2022 6:37 AM [facility] Monocytes % 8.1 5.0 - 13.0 % 04/01/2022 6:37 AM [facility] Eosinophils % 1.4 0.0 - 6.0 % 04/01/2022 6:37 AM [facility] Basophils % 0.9 0.0 - 2.0 % 04/01/2022 6:37 AM [facility] Immature Granulocytes 0.4 0 - 1 % 04/01/2022 6:37 AM [facility] Neutrophil Absolute 3.46 2.01 - 7.14 x10E9/L 04/01/2022 6:37 AM [facility] Lymphocytes Absolute 2.74 1.07 - 3.94 x10E9/L 04/01/2022 6:37 AM [facility] Monocytes Absolute 0.56 0.26 - 1.07 x10E9/L 04/01/2022 6:37 AM [facility] Eosinophils Absolute 0.10 0 - 0.47 x10E9/L 04/01/2022 6:37 AM [facility] Basophils Absolute 0.06 0 - 0.08 x10E9/L 04/01/2022 6:37 AM [facility] Immature Granulocytes Absolute 0.03 0.00 - 0.06 x10E9/L 04/01/2022 6:37 AM [facility] nRBC Auto 0 /100 WBC 04/01/2022 6:37 AM [facility] Blood BLOOD SPECIMEN / Unknown Venipuncture / Unknown 04/01/2022 6:23 AM CRYPTOGRAPHIC VULNERABILITY ANALYST 04/01/2022 6:29 AM [facility] Shade Reddy MD LAB - HEMATOLOGY ORD ERABLES [facility] [address] [place] [address] * (ABNORMAL) COMPREHENSIVE METABOLIC PANEL (04/01/2022 6:23 AM [facility]) Only the most recent of2 resultswithin the time period is included. [facility] Glucose 87 70 - 105 mg/dL 04/01/2022 6:48 AM [facility] Sodium 139 136 - 145 mmol/L 04/01/2022 6:48 AM [facility] Potassium 4.4 3.5 - 5.1 mmol/L 04/01/2022 6:48 AM [facility] Chloride 105 98 - 107 mmol/L 04/01/2022 6:48 AM [facility] CO2 29 23 - 31 mmol/L 04/01/2022 6:48 AM [facility] Calcium 9.2 8.4 - 10.4 mg/dL 04/01/2022 6:48 AM [facility] Anion Gap 5(L) 8 - 18 mmol/L 04/01/2022 6:48 AM [facility] BUN 6(L) 7 - 18.7 mg/dL 04/01/2022 6:48 AM [facility] Creatinine 1.17(H) 0.57 - 1.11 mg/dL 04/01/2022 6:48 AM [facility] Alkaline Phosphatase 84 40 - 150 U/L 04/01/2022 6:48 AM [facility] ALT 14 0 - 61 U/L 04/01/2022 6:48 AM [facility] AST 17 5 - 34 U/L 04/01/2022 6:48 AM [facility] Protein Total 6.5 6.4 - 8.3 gm/dL 04/01/2022 6:48 AM [facility] Albumin 3.8 3.5 - 5.2 gm/dL 04/01/2022 6:48 AM [facility] Bilirubin Total 1.0 0.2 - 1.2 mg/dL 04/01/2022 6:48 AM [facility] eGFR by CKD-EPI 60(L) >=90 mL/min/1.7 3 m2 04/01/2022 6:48 AM [facility] Blood BLOOD SPECIMEN / Unknown Venipuncture / Unknown 04/01/2022 6:23 AM CRYPTOGRAPHIC VULNERABILITY ANALYST 04/01/2022 6:29 AM [facility] Shade Reddy MD LAB - CHEMISTRY ORDE [facility] Organization Address City/State/ZIP Co de Phone Number [facility] [address] [place] [address] * (ABNORMAL) LIPID PROFILE (04/01/2022 6:23 AM CRYPTOGRAPHIC VULNERABILITY ANALYST) Only the most recent of2 resultswithin the time period is included. Cholesterol 154 <200 mg/dL 04/01/2022 6:48 AM CRYPTOGRAPHIC VULNERABILITY ANALYST [facility] Triglycerides 133 <150 mg/dL 04/01/2022 6:48 AM CRYPTOGRAPHIC VULNERABILITY ANALYST [facility] HDL Cholesterol 35(L) >40 mg/dL 2 6:48 AM CRYPTOGRAPHIC VULNERABILITY ANALYST [facility] LDL Calculated 92 <130 mg/dL 04/01/2022 6:48 AM CRYPTOGRAPHIC VULNERABILITY ANALYST [facility] VLDL Calculated 27 <=30 mg/dL 2 6:48 AM CRYPTOGRAPHIC VULNERABILITY ANALYST [facility] Chol HDL Ratio 4.4 <4.5 04/01/2022 6:48 AM CRYPTOGRAPHIC VULNERABILITY ANALYST [facility] LDL/HDL Ratio 2.6 <5.0 04/01/2022 6:48 AM CRYPTOGRAPHIC VULNERABILITY ANALYST [facility] Blood BLOOD SPECIMEN / Unknown Venipuncture / Unknown 04/01/2022 6:23 AM CRYPTOGRAPHIC VULNERABILITY ANALYST 04/01/2022 6:29 AM CRYPTOGRAPHIC VULNERABILITY ANALYST Shade Reddy MD LAB - CHEMISTRY JENNIFER MCFARLAND [facility] Organization Address City/State/ZIP Co de Phone Number [facility] [address] [place] [phone] * [place] (09/11/2021 9:03 AM CDT) Anatomical Region Laterality Modality Other 09/11/2021 9:03 AM CDT Kaushik Bowser MD OPHTHALMOLOGY SE RVICES ORDERABLES * Color fundus photography (06/26/2021 8:11 AM CRYPTOGRAPHIC VULNERABILITY ANALYST) Anatomical Region Laterality Modality Other 06/26/2021 8:11 AM CRYPTOGRAPHIC VULNERABILITY ANALYST Kaushik Bowser MD OPHTHALMOLOGY SE RVICES ORDERABLES * OCT (06/26/2021 8:08 AM CRYPTOGRAPHIC VULNERABILITY ANALYST) Anatomical Region Laterality Modality Other 06/26/2021 8:08 AM CRYPTOGRAPHIC VULNERABILITY ANALYST Kaushik Bowser MD OPHTHALMOLOGY SE RVICES ORDERABLES * OCT (05/23/2021 9:05 AM CRYPTOGRAPHIC VULNERABILITY ANALYST) Anatomical Region Laterality Modality Other 05/23/2021 9:05 AM CRYPTOGRAPHIC VULNERABILITY ANALYST Chrystal Roa MD OPHTHALMOLOGY SERVIC ES ORDERABLES * [place]ARYNGEAL [place] (09/23/2020 7:49 AM CDT) Narrative Gregory Trejo APRN-CRNA - 09/23/2020 7:49 AM CDT Gregory Trejo APRN-CRNA 09/23/2020 8:29 AM LMA Placement Procedure/LDA Note: LMA Insertion [...] - 115 mg/dL 09/23/2020 9:21 AM CDT [facility] Specimen Type Venous 09/23/2020 9:21 AM CDT [facility] Blood BLOOD SPECIMEN / Unknown 09/23/2020 7:21 AM CDT 09/23/2020 9:21 AM CDT Fidel Moss MD LAB - POINT OF CARE ORDERABLES [facility] [address] [place] [address], [place] [phone] * HCG URINE QUALITATIVE - POCT (IP) INTERFACED (09/23/2020 6:43 AM CDT) Only the most recent of3 resultswithin the time period is included. Pathologist [facility] HCG Qual Urine Negative Negative 09/23/2020 6:49 AM CDT [facility] Urine URINE / Unknown 09/23/2020 6 :43 AM CDT 09/23/2020 6:49 AM CDT Fidel Moss MD LAB - POINT OF CARE ORDERABLES [facility] [address] [place] [id number], [facility] [phone] * LAMOTRIGINE LEVEL (09/06/2020 12:31 AM CDT) [facility] Lamotrigine 3.0 2.0 - 20.0 ug/mL 09/09/2020 6:07 PM CDT [facility] ([facility]) Comment:Detection Limit = 1. 0 Blood BLOOD SPECIMEN / Unknown Venipuncture / Unknown 09/06/2020 12:31 AM CDT 09/06/2020 12:54 AM CDT Narrative [facility] ([facility]) - 09/09/2020 6:07 PM CDT Performed at: [facility] [id number] [employer] Supervisor: Shena Dalton MD, Phone: [phone] Estefany Valle APRN-[employer] FINISH[employer] PREPARER LAB - THERAPEUTI C DRUG MONITORING ORDERABLES [facility] ([facility]) [address] [place] [address] * SARS-COV-2 (COVID-19) RAPID (09/05/2020 3:05 PM CDT) [facility] COVID-19 PCR Not detected Not detected 09/06/19 21 3:55 PM CDT [facility] Microbiology SPECIMEN FROM NASOPHARYNGEAL STRUCTURE / Unknown Collection / Unknown 09/05/2020 3:05 PM CDT 09/05/2020 3:11 PM CDT Fabiano Ponce DO LAB - MICROBIOLOGY O RDERABLES [facility] [address] [id number] * OPH OCT TEST [facility] (08/26/2020 9:04 AM CDT) Anatomical Region Laterality Modality Other 08/26/2020 9:04 AM CDT Chrystal Roa MD OPHTHALMOLOGY SERVIC ES ORDERABLES * HCG URINE QUAL POCT NOTIFICATION (07/03/2020 11:51 AM CRYPTOGRAPHIC VULNERABILITY ANALYST) Only the most recent of2 resultswithin the time period is included. Comment Notification Label Only - See Separate Report 07/03/2020 1:01 PM CRYPTOGRAPHIC VULNERABILITY ANALYST [facility] Urine URINE / Unknown 07/03/2020 1 1:51 AM CRYPTOGRAPHIC VULNERABILITY ANALYST 07/03/2020 11:55 AM CRYPTOGRAPHIC VULNERABILITY ANALYST Fidel Moss MD LAB - URINALYSIS ORD ERABLES Performing Organization Address City/[facility]/ZIP Co de Phone Number [facility] [address] [place] [address], [facility] [phone] * OPH VISUAL FIELD TEST [facility] (06/21/2020 8:01 AM CRYPTOGRAPHIC VULNERABILITY ANALYST) Anatomical Region Laterality Modality Other 06/21/2020 8:01 AM CRYPTOGRAPHIC VULNERABILITY ANALYST Fidel Moss MD OPHTHALMOLOGY SERVIC ES ORDERABLES * OPH OCT TEST [facility] (05/27/2020 10:37 AM CRYPTOGRAPHIC VULNERABILITY ANALYST) Anatomical Region Laterality Modality Other 05/27/2020 10:3 7 AM CRYPTOGRAPHIC VULNERABILITY ANALYST Chrystal Roa MD OPHTHALMOLOGY SERVIC ES ORDERABLES * [facility] [employer] (04/18/2020 8:03 AM CRYPTOGRAPHIC VULNERABILITY ANALYST) Narrative Kriss Katz Anes Asst - 04/18/2020 8:03 AM CRYPTOGRAPHIC VULNERABILITY ANALYST Kriss Katz Anes Asst 04/18/2020 8:03 AM LMA Placement Procedure/LDA Note: Patient Location: OR. Procedure: LMA. Induction: standard IV Patient position: sniffing. Mask Ventilation: easy Type: LMA Size: 4 Number of Attempts: 1. Placement verified by: CO2 monitor Staff Section Anesthesia Provider: Neyda Beavers MD Provider #1: Kriss Katz Anes Asst, Performed the procedure. Neyda Beavers MD GENERAL ANESTHESIA ORDERABLES * OPH OCT TEST [facility] (04/10/2020 1:09 PM CRYPTOGRAPHIC VULNERABILITY ANALYST) Anatomical Region Laterality Modality Other 04/10/2020 1:09 PM CRYPTOGRAPHIC VULNERABILITY ANALYST Chrystal Roa MD OPHTHALMOLOGY SERV ES ORDERABLES * OCT (03/26/2020 1:04 PM CRYPTOGRAPHIC VULNERABILITY ANALYST) Anatomical Region Laterality Modality Other 03/26/2020 1:04 PM CRYPTOGRAPHIC VULNERABILITY ANALYST Kasey Brar MD OPHTHALMOLOGY SERV [facility] ORDERABLES * STREP A SCREEN - POINT OF CARE (AMB) [facility] (06/25/2017) Strep A Rapid POCT Negative Negative Strep A Internal Control Present Lot # [id number] Expiration Date [id number] Throat ENTIRE THROAT (SURFACE REGION OF NECK) / Unknown 06/25/2017 [facility] - POINT OF CARE ORDERABLES Care Teams Warehouse Technician Relationship Specialty Start Date End Date Martha Lawrence MD PCP - General 03/21/20 Kathy Corley APRN-CNP [address] [facility] [place] [id number] Nurse Practitioner Ophthalmology 12/14/22 Gibran David [address] [address] 12/14/22
--- OUTSIDE RECORDS SUMMARY | 2024-07-24 19:06 | XMS_ITS ---
Author Organization [facility] As CoPatient Address [address] [place] [address] Care Team Providers Care Rn Transport Name Role Phone Martha Lawrence MD Primary Care Provider Unavailab Mitesh Minaya Unavailable [phone] Marciano Caal Unavailable [phone] Allergies Allergen (clinical drug ingredient) Drug/Non Drug [...] Drug Allergy 09/20/2023 Active REASON FOR VISIT Spravato Treatment, Depression screening positive, rates her depression as 9 out of 10., EsketamineAdministration Medications Medication SIG (Take, Route, Frequency, Duration) Notes Start Date End Date Status traZODone HCl 100 MG 1 tablet Orally Onc e a day for 90 days Active Naproxen 500 MG TAKE 1 TABLET BY DAGMAR TH TWICE A DAY NEEDED FOR PAIN Oral for 15 Days Active Albuterol Sulfate HFA 108 (90 Base) MCG/ACT Inhalation for 15 Days Active Topiramate 50 MG TAKE 1 TABLET BY DAGMAR TH TWICE A DAY Oral for 90 Days Active buPROPion HCl ER (XL) 150 MG TAKE 1 TABLET BY MOUTH EVERY DAY FOR 90 DAYS for 90 Active Atomoxetine HCl 60 MG 1 capsule Oral Onc e a day for 90 days Active Escitalopram Oxalate 20 MG 1 tablet Oral Once a day for 90 days Active Zaleplon 10 MG 1 capsule at bedtime Oral Once a day for 30 days As needed Active Myfembree 40-1-0.5 MG TAKE 1 TABLET BY M OUTH EVERY DAY Oral for 84 Days Activ e Vraylar 3 mg 1 capsule Oral once daily for 90 days Active Mounjaro 5 MG/0.5ML [...] DAY Oral for 90 Days Activ e Spravato (84 MG Dose) 28 MG/DEVICE 3 sprays in each nostril Nasally every 10 days for 1 days 06/12/2024 Active Social History Sex Assigned At : Social History Observation Description Sex Assigned At Female Vital Signs Temperature 99 degrees Fahrenheit 07/13/2024 Blood pressure systolic 119 mm Hg 07/14/19 25 Blood pressure diastolic 78 mm Hg 025 Heart Rate 88 /min 07/13/2024 Height 66.00 in 07/13/2024 Oximetry 99 % 07/13/2024 Height-cm 167.64 cm 07/13/2024 117/78 Encounters Encounter Location Date Provider Diagnosis [facility] [address] [facility] [address] [address] 07/13/2024 Marciano Caal Major depressive disorder, recurrent severe without psychotic features F33.2 Assessments Encounter Date Diagnosis (ICD Code) Assessment Notes Treatment Notes Treatment Clinical Notes Section Notes 07/13/2024 Major depressive disorder, recurrent severe without psychotic features (ICD-10 - F33.2) continue current treatment as prescribed by primary psychiatric care provider. 07/13/2024 Other 1. Major Depressive Disorder - Patient rates depression as 9/10 (PHQ-9 score: 9). - Plan: a. Continue current medication regimen. b. Encourage regular physical activity and social interactions. 2. Generalized Anxiety Disorder - Patient rates anxiety as 10/10 (ANGEL-7 score: 15) and attributes it to the state of the world. - Plan: a. Continue current medication regimen. b. Recommend practicing relaxation techniques like deep breathing exercises and progressive muscle relaxation. c. Refer for cognitive-behav ioral therapy (CBT) to address anxiety symptoms. 3. Insomnia (resolved) - Plan: a. Encourage maintaining regular sleep schedule and good sleep hygiene. b. Continue current medication regimen. 4. Poor Appetite - Plan: a. Encourage regular, balanced meals. b. Consider adding nutritional supplements if needed. c. Monitor weight and nutritional status at follow-up appointments. 5. Safety Assessment - Patient denies suicidal ideation, homicidal ideation, hallucinations, and delusions. - Plan: a. Continue monitoring at follow-up appointments. Plan Of Treatment Treatment Notes Assessment Notes Major depressive disorder, r ecurrent severe without psychotic features continue current treatment as prescribed by primary psychiatric care provider. Next Appt Details Follow Up: 07/19/2024 @ 11:45 PM, Reason: ralf/ Mitesh Provider Name:Marciano Caal, 08/02/2024 03:15:00 PM, [facility], [address], [address], Provider Name:Marciano Caal, 08/09/2024 03:00:00 PM, [facility], [address], [address], Provider Name:Marciano Caal, 08/14/2024 03:15:00 PM, [facility], [facility] [address], [place], [address], Provider Name:Mitesh pierre, 08/16/2024 03:45:00 PM, [facility], [address], [place], [address], Provider Name:Marciano Caal, 08/21/2024 03:15:00 PM, [facility], [address], [address], Provider Name:Marciano Caal, 08/28/2024 03:15:00 PM, [facility], [address], [address], Provider Name:Marciano Caal, 09/04/2024 03:00:00 PM, [facility] [address], [address], [place], [address], Provider Name:Marciano Caal, 09/11/2024 03:00:00 PM, [facility] [address], [address], [place], [address], Provider Name:Marciano Caal, 09/18/2024 03:00:00 PM, [facility] [address], [address], [place], [address], Provider Name:Marciano Caal, 09/25/2024 03:00:00 PM, [facility] [address], [facility] [address], [place], [address], Provider Name:Marciano Caal, 10/09/2024 03:00:00 PM, [facility] [address], [facility] [address], [place], [address], Provider Name:Marciano Caal, 10/16/2024 03:00:00 PM, [facility] [address], [facility] [address], [place], [address], Provider Name:Marciano Caal, 10/23/2024 03:00:00 PM, [facility] [address], [facility] [address], [place], [address], Provider Name:Marciano Caal, 10/30/2024 03:00:00 PM, [facility] [address], [place] [address], [place], [address], Provider Name:Marciano Caal, 11/06/2024 03:00:00 PM, [facility] [address], [place] [address], [place], [address], Medications Administered Medication Instructions Date of Administration Dosage Notes Spravato (84 MG Dose) 07/13/2024 84 mg Progress Notes * JAQUELINE HASSAN VDOB: 1 (44 yo F)Acc No.[id number]:07/13/2024 Patient: JAQUELINE DUMONT V Provider: Gómez Caal PMHNP :1980 A ge:44 Y S ex:Female Date:07/13/2024 Address:[address] [facility] Pcp:Martha Lawrence MD Subjective: * Chief Complaints: * S pravato TreatmentDepression screening positiveRates her depression as 9 out of 10.Esketamine Administration * HPI: G eneral Follow Up: 1 Review patient medical records, any recent test results, last visit summary, etc Y es1 Time spent 2 2 Greet patient and escort to the treatment room N o3 Initial Obtained vital signs N o4 Prepare equipment and supplies Y es4 Time spent 1 5 Reviewed and documented history and medication Y es5 Time spent 2 6 Evaluate patient's clinical status [relevant history/physical assessment] and determine readiness/appropriateness of treatment Y es6 Time spent 2 7 Confirm orders and review plans with staff Y es7 Time spent 1 8 Ensure appropriate positioning for administration, observe patient administration, ensure patient comfort and safety Y es8 Time spent 2 9 Obtained vital signs: Assess treatment tolerance [...] Provide patient education/instruction/ Y es14 Time spent 3 15 Coordinate home-going [that is, discharged to escorted transportation] N o16 Complete medical record documentation Y es16 Time spent 1 017 cleaning of room/equipment by clinical staff N o18 complete medical record documentation; complete and submit rems patient monitoring form N oI attest to the total time spent Before, During and after ecounter was (in Minutes) 4 0 The note is transcribed using speech recognition software. It is a reflection of a visit with the patient. It might have some inaccuracy, including medication names and transcribing errors, though efforts have been made to correct them. HPI: The patient is a 44-year-old female who rates her depression as 9 out of 10 and anxiety as 10 out of 10. She reports feeling anxious all the time due to concerns about the state of the world. Her ANGEL-7 score is 15, indicating severe anxiety, and her PHQ-9 score is 9, suggesting moderate depression. The patient denies suicidal ideation, homicidal ideation, hallucinations, and delusions. Sleep: The patient reports improved sleep, getting 7.5 hours per night for the past two days since taking her medication regularly. Appetite: Her appetite is diminished, and she acknowledges not eating much. Other Symptoms: The patient reports shoulder pain related to recent rotator cuff surgery but denies any new physical complaints or medication changes. D epression Screening: ANGEL-7 (2018 Edition) F eeling nervous, anxious, or on edge N early every day N ot being able to stop or control worrying?Nearly every day W orrying too much about different things N early every day T rouble relaxing S everal B eing so restless that it is hard to sit still S ever B ecoming easily annoyed or irritable S ever F eeling afraid as if something awful might happen N early every day T otal ANGEL-7 Score 1 5 I f you checked any problems, how difficult have they made it for you to do your work, take care of things at home, or get along with other people? V franki difficult I nterpretation of Total ( 15 and over) Severe D epression screening: PHQ-9 L ittle interest or pleasure in doing things?Several days F eeling down, depressed, or hopeless N early every day T rouble falling or staying asleep, or sleeping too much S everal days F eeling tired or having little energy S everal P oor appetite or overeating S ever F eeling bad about yourself or that you are a failure, or have let yourself or your family down S everal days T rouble concentrating on things, such as reading the newspaper or watching television S ever M oving or speaking so slowly that other people could have noticed; or the opposite, being so fidgety or restless that you have been moving around a lot more than usual N ot at all T houghts that you would be better off or of hurting yourself in some way N ot at all T otal Score 9 I nterpretation M ild Depression Intervention D epression Screening Findings P ositve F ollow-Up for Depression M ental health treatment assessment, Patient follow-up to return when and if necessary S uicide Risk Assessment Performed 0 07/13/2024 A dditional Evaluation for Depression P sychiatric interview and evaluation N kun of the standardized tool used for adult depression screening: P atdannie Health Questionnaire (PHQ-9) E sketamine Administration: Esketamine administration T dean at the start of administration 1 :00 PM T dean of discharge 3 :00 PM Lisa montelongo must be monitored for at least 2 hours Y es W as the patient clinically ready for discharge prior to the required 2-hour: N ruma canales Notes about today's Visit Lisa montelongo will be picked up by either her spouse or an UBER. She said the last time she ate was around 12:00 PM this afternoon. She verbalized no medication changes and is taking them all as prescribed. She said she has not had any concerns or issues since her last treatment. Esketamine Nasal [place] Administration and Supervised monitoring Staff attending the patient Erika Vidales Supervising provider as in rendering provider : RUI Gold Is patient taking any of the following concomitant medication that may cause sedation of blood pressure changes Benzodiazepine No Non-benzodiazepine sedative-hypnotics: Yes Psychostimulant: No Monoamine oxidase inhibitors [MAOIs]: No Dose of Spravato: 84 Mg Lot number [id number] Date: 10/07/2026. B obed Depression Inventory: which describes you best in terms of this past week 1 In the past one week which term best describe you 1 I feel sad or blue 2 In the past one week which term best describe you 1 I feel discourage about the future. [...] best describe you 0 I don't feel particularly guilty. 6 [...] which term best describe you 0 I have not lost interest in other people. 1 3 In the past one week which term best describe you 1 I put off making decisions more than I used to. 1 4 In the past one week which term best describe you 1 I am worried that I am looking old or unattractive. 1 5 In the past one week which term best describe you 1 It takes an extra effort to get started at doing something. 1 6 In the past one week which term best describe you 2 I wake up 1-2 hours earlier than usual and find it hard to get back to sleep. 1 7 In the past one week which term best describe you 2 I get tired from doing almost anything 1 8 In the past one week which term best describe you 2 My appetite is much worse now. 1 9 In the past one week which term best describe you 1 I have lost more than five pounds 2 0 In the past one week which term best describe you 1 I am worried about physical problems like aches, pain, upset stomach or constipation 2 1 In the past one week which term best describe you 1 I am less interested in sex than I used to be. Total Score T otal Score 2 0 * ROS: G eneral / Constitutional: Fatigue d enies. D izziness D enies. S edation?Denies. s pinning sensation D eneis. G astrointestinal: Nausea d enies. V omiting d enies. P sychiatric: Anxiety a dmits. A uditory / visual hallucinations d enies. D elusions d enies. S uicidal thoughts d enies. D issociations D enies. E xcited D enies. * Medical History: * Surgical History: * Hospitalization/Major Diagno stic Procedure: * Medications: T akingSpravato (84 MG Dose) [...] Side Effectsno[Allergies Verified] Objective: * Vitals: B P: 119/83 mm Hg,117/82 mm Hg,119/78mm Hg, HR: 87 /min,81 /min,88/min, Temp:99F, Oxygen sat %: 98 %,98 %,99%, Ht: 66.00 in, Ht-cm: 167.64 cm. 117/78. * Examination: G eneral Examination: Psych: a lert and oriented x 3, cognitive function intact, cooperative with exam, maintains good eye contact, with good judgement and insight, normal affect / mood, with no auditory or visual hallucinations, speech is clear and coherent, thought process is logical and goal directed without suidical ideation or delusions. - Mental Status Examination: - Patient denies suicidal and homicidal ideation. - Reports high levels of anxiety, rating it 10/10, related to the state of the world and feelings of paranoia. - Depression rated at 9/10. - No hallucinations or delusions reported. - Sleep improved to 7.5 hours nightly with regular medication use. - Appetite decreased, patient is not eating much. - Vital Signs: see note. - Physical Examination: - Patient reports shoulder pain, attributed to previous rotator cuff surgery. - Denies any new physical complaints except for shoulder pain. - Diagnostic Test Results and Labs: - GAD7 score: 15 - PHQ9 score: 9. Assessment: * Assessment: 1. M ajor depressive disorder, recurrent severe without psychotic features - F33.2 (Primary)? Plan: * Treatment: 2. O thers Clinical Notes: 1. Major Depressive Disorder - Patient rates depression as 9/10 (PHQ-9 score: 9). - Plan: a. Continue current medication regimen. b. Encourage regular physical activity and social interactions. 2. Generalized Anxiety Disorder - Patient rates anxiety as 10/10 (ANGEL-7 score: 15) and attributes it to the state of the world. - Plan: a. Continue current medication regimen. b. Recommend practicing relaxation techniques like deep breathing exercises and progressive muscle relaxation. c. Refer for cognitive-behavioral therapy (CBT) to address anxiety symptoms. 3. Insomnia (resolved) - Plan: a. Encourage maintaining regular sleep schedule and good sleep hygiene. b. Continue current medication regimen. 4. Poor Appetite - Plan: a. Encourage regular, balanced meals. b. Consider adding nutritional supplements if needed. c. Monitor weight and nutritional status at follow-up appointments. 5. Safety Assessment - Patient denies suicidal ideation, homicidal ideation, hallucinations, and delusions. - Plan: a. Continue monitoring at follow-up appointments. * Therapeutic Injections: Spravato 84 mg : 84 mg (Route: Nasal) given by RUI Gold (Major depressive disorder, recurrent severe without psychotic features) * Procedure Codes: 9 6127 BEHAV ASSMT W/SCORE & DOCD/STAND [id number] CLIN DEPRESSION SCREEN [id number] PROLONGED OFFICE OR OTHER OUTPATIENT EVALUATION AND MANAGEMENT SERVICE(S) (BEYOND THE TOTAL TIME OF THE PRIMARY PROCEDURE WHICH HAS BEEN SELECTED USING TOTAL TIME), REQUIRING TOTAL TIME WITH OR WITHOUT DIRECT PATIENT CONTACT BEYOND THE USUAL SERVICE, ON T, Units: 4.00 * Preventive Medicine: Counseling: S afety: Discussed the risk and benefits of medication(s)? Y es Screenings: D epression screening Have you had a recent depression screening? Y es Date of depression screenin 07/13/2024 * Follow Up: @ 11:45 PM (Reason: w/ Mitesh) * Billing Information: * Visit Code: 92429 OFFICE OUTPATIENT VISIT 40 MINUTES COMPREHENSIVE HISTORY AND EXAM/HIGH MEDICAL DECISION MAKING. * Procedure Codes: 91968 BEHAV ASSMT W/SCORE & DOCD/STAND INSTRUMENT. G8431 CLIN DEPRESSION SCREEN DOC. 38341 PROLONGED OFFICE OR OTHER OUTPATIENT EVALUATION AND MANAGEMENT SERVICE(S) (BEYOND THE TOTAL TIME OF THE PRIMARY PROCEDURE WHICH HAS BEEN SELECTED USING TOTAL TIME), REQUIRING TOTAL TIME WITH OR WITHOUT DIRECT PATIENT CONTACT BEYOND THE USUAL SERVICE, ON T. Units: 4.00. * AND STOCKING IRONER Sign off status: Completed true * Provider: RUI Rizzo Date: 0 07/13/2024 Generated for Keaton magallon/Sergio/Bozena on: 0 07/24/2024 07:05 PM CDT History and Physical Notes * HPI (History of Present Illness) Category Sub-Category Detail Notes Category Not es Depression screening PHQ-9 Little inte rest or pleasure in doing things: Several days Feeling down, depressed, or hopeless: Ne kaci every day Trouble falling or staying asleep, or sl eeping too much: Several days Feeling tired or having little energy: [...] some way: Not at all Total Score: 9 Interpretation: Mild Depression Intervention Depression Screening Findings: P ositve Follow-Up for Depression: [facility] treatment assessment, Patient follow-up to return when and if necessary Suicide Risk Assessment Performed: 07/13 Additional Evaluation for Depression: Ps ychiatric interview and evaluation Name of the standardized too l used for adult depression screening:: Patient Health Questionnaire (PHQ-9) Depression Screening ANGEL-7 (2018 Edition) Feelin g nervous, anxious, or on edge: Nearly every day Not being able to stop or control worryautumn ng: Nearly every day Worrying too much about different things : Nearly every day Trouble relaxing: Several days Being so restless that it is hard to sit still: Several days Becoming easily annoyed or irritable: Se veral days Feeling afraid as if something awful amanda ht happen: Nearly every day Total ANGEL-7 Score: 15 If you checked any problems, how difficult have they made it for you to do your work, take care of things at home, or get along with other people?: Very difficult Interpretation of Total: (15 and over) S evere Gale Depression Inventory which describe s you best in terms of this past week 1 In the past one week which term best describe you: 1 I feel sad or blue 2 In the past one week which [...] h term best describe you: 0 I have not lost interest in other people. 13 In the past one week whic [...] h term best describe you: 2 I get tired from doing almost anything 18 In the past one week whic h term best describe you: 2 My appetite is much worse now. 19 In the past one week whic h term best describe you: 1 I have lost more than five pounds 20 In the past one week whic h term best describe you: 1 I am worried about physical problems like aches, pain, upset stomach or constipation 21 In the past one week whic h term best describe you: 1 I am less interested in sex than I used to be. Total Score Total Score: 20 Esketamine Administration Esketamine administration Time at the start of administration: 1:00 PM Esketamine Nasal [place] Administration and Supervised monitoring Staff attending the patient Erika Vidales Supervising provider as in rendering provider : RUI Gold Is patient taking any of the following concomitant medication that may cause sedation of blood pressure changes Benzodiazepine No Non-benzodiazepine sedative-hypnotics: Yes Psychostimulant: No Monoamine oxidase inhibitors [MAOIs]: No Dose of Spravato: 84 Mg Lot number [id number] Date: 10/07/2026 Time of discharge: 3:00 PM Patient must be monitored fo r at least 2 hours: Yes Was the patient clinically r jerson for discharge prior to the required 2-hour:: No staff Notes about today's Visit: Patient will be picked up by either her spouse or an UBER. She said the last time she ate was around 12:00 PM this afternoon. She verbalized no medication changes and is taking them all as prescribed. She said she has not had any concerns or issues since her last treatment. Examination Category Sub-Category Detail Notes Category Not es General Examination Psych: alert and oriented x 3, cogn itive function intact, cooperative with exam, maintains good eye contact, with good judgement and insight, normal affect / mood, with no auditory or visual hallucinations, speech is clear and coherent, thought process is logical and goal directed without suidical ideation or delusions - Mental Status Examination: - Patient denies suicidal and homicidal ideation. - Reports high levels of anxiety, rating it 10/10, related to the state of the world and feelings of paranoia. - Depression rated at 9/10. - No hallucinations or delusions reported. - Sleep improved to 7.5 hours nightly with regular medication use. - Appetite decreased, patient is not eating much. - Vital Signs: see note. - Physical Examination: - Patient reports shoulder pain, attributed to previous rotator cuff surgery. - Denies any new physical complaints except for shoulder pain. - Diagnostic Test Results and Labs: - GAD7 score: 15 - PHQ9 score: 9
== END 2024-07-24 17:40 | disposition home or self-care (01) ==
LOC: ANHLAB 17:40
PROVIDERS: PCP Family Medicine; Visit Provider Nurse Practitioner
DX: K86.81 Exocrine pancreatic insufficiency (principal)
CPT/HCPCS: 82653

== ENCOUNTER 2024-09-04 00:57 | Day surgery (SDC) | payer BC, OTHER, SELFPAY ==
[2024-08-23 13:06] VITALS: BMI 36.6
--- OUTSIDE RECORDS SUMMARY | 2024-09-04 01:01 | XMS_ITS | Clinical Summary ---
Author Organization [facility] Address [address] [place] [address] Care Team Providers Care Exhibit Carpenter Name Role Phone Zuly Johnson Sushant BOTTLING ATTENDANT Primary Care Provider [phone] Allergies Active Allergy Reactions Criticality Noted Date [...] on file Legal Sex Female 4:19 PM SCIENTIFIC INFORMATICS ANALYST Gender Identity Not on file Sexual Orientation Not on file Last Filed Vital Signs Vital Sign Reading Time Taken Comments Blood Pressure 134/98 03/16/2019 2:45 PM SCIENTIFIC INFORMATICS ANALYST Pulse 97 03/16/2019 2:45 PM SCIENTIFIC INFORMATICS ANALYST Temperature 36.8 C (98.2 F) 03/16/2019 2:45 PM SCIENTIFIC INFORMATICS ANALYST Respiratory Rate - - Oxygen Saturation 98% 03/16/2019 2:45 PM SCIENTIFIC INFORMATICS ANALYST Inhaled Oxygen Concentration - - Weight 112.9 kg (249 lb) 03/16/2019 2:45 PM SCIENTIFIC INFORMATICS ANALYST Height 167.6 cm (5' 6 ) 03/16/2019 2:45 PM SCIENTIFIC INFORMATICS ANALYST Body Mass Index 40.19 03/16/2019 2:45 PM SCIENTIFIC INFORMATICS ANALYST Plan of Treatment Health Maintenance Due Date Last Done Comments Pre-Diabetes and Diabetes Screening 1980 HEPATITIS B VACCINES (1 of 3 - 19+ 3-dose series) 01/13/2000 HPV/Cotest (21-29) 2002 CERVICAL CANCER SCREENING 2011 HPV/Cotest (30-65) 2011 PAP SMEAR 2011 DTAP/TDAP/TD VACCINES (2 - Td or [...] (01/20/2019) Anatomical Region Laterality Modality Breast Bilateral Mammography us Abstract Provider MAMMO ORDERABLES Final Result from Last 3 Months or Most Recently Relevant to Health Maintenance Insurance [employer] BLUE ACCESS/TRUE BLUE PPO Care Teams Exhibit Carpenter Relationship Specialty Start Date End Date Zuly Johnson, DANELLE PCP - General NURSE PRACTITIONER 04/29/18
--- OUTSIDE RECORDS SUMMARY | 2024-09-04 01:01 | XMS_ITS | Patient Health Record ---
Author Organization [facility] [employer] [facility] Address [address] [place] [address] Care Team Providers Care Jig Worker Name Role Phone Martha Lawrence MD Primary Care Provider Unavailab Mitesh Minaya Unavailable [phone] Kandy Cardona Unavailable [phone] Damian Nagel Unavailable [phone] Migration, Provider Unavailable Unavailable Marciano Caal Unavailable [phone] Allergies Allergen (clinical drug ingredient) Drug/Non Drug [...] prazosin Prazosin Unknown Drug Allergy 09/20/2023 Active Reason For Referral No Information Medications Medication SIG (Take, Route, Frequency, Duration) Notes Start Date End Date Status Myfembree 40-1-0.5 MG TAKE 1 TABLET BY M OUTH EVERY DAY Oral for 84 Days Activ e Atomoxetine HCl 60 MG 1 capsule Oral Onc e a day for 90 days Active Naproxen 500 MG TAKE 1 TABLET BY DAGMAR TH TWICE A DAY NEEDED FOR PAIN Oral for 15 Days Active Escitalopram Oxalate 20 MG TAKE 1 TABLET BY MOUTH EVERY DAY Oral for 90 Days Activ e Vraylar 3 mg 1 capsule Oral once daily for 90 days Active Spravato (84 MG Dose) 28 MG/DEVICE 3 sprays in each nostril Nasally once a week for 1 days 08/29/2024 Active Nebivolol HCl 10 MG TAKE 1 TABLET BY DAGMAR TH EVERY DAY Oral for 90 Days Activ e Escitalopram Oxalate 20 MG 1 tablet Oral Once a day for 90 days Active Albuterol Sulfate HFA 108 (90 Base) MCG/ACT Inhalation for 15 Days Active Zenpep [id number] UNIT Oral for 30 Days Active traZODone HCl 100 MG 1 tablet Orally Onc e a day for 90 days Active Topiramate 50 MG TAKE 1 TABLET BY DAGMAR TH TWICE A DAY Oral for 90 Days Active Montelukast Sodium 10 MG TAKE 1 TABLET B Y MOUTH EVERY DAY Oral for 90 Days Activ e lamoTRIgine 100 MG 1 tablet Oral Once a day for 90 days Active Mounjaro 5 MG/0.5ML INJECT 5 MG SUBCUTAN EOUSLY WEEKLY Subcutaneous for 28 Days Active buPROPion HCl ER (XL) 150 MG 1 tablet Oral Once a day for 90 days Active Zaleplon 10 MG 1 capsule at bedtime Oral Once a day for 30 days As needed Active Immunizations Vaccine Route Administration Date Status Comme nts Pfizer Biontech Covid-19 Vac cine 2nd dose Unknown 07/04/2020 Administered Pfizer Biontech Covid-19 Vac cine 2nd dose Unknown 07/26/2020 Administered Pfizer Biontech Covid-19 Vac cine 2nd dose Unknown 02/15/2021 Administered Pfizer Biontech Covid-19 Vac cine 2nd dose Unknown 08/16/2021 Administered Influenza, injectable, MDCK, preservative free Unknown 01/30/2023 Administered Influenza virus vaccine, quadrivalent (IIV4), split virus, 0.25 mL dosage Unknown 06/03/2019 Administered Hep B, adolescent or pediatr ic (11-19), 3 dose schedule Unknown 11/10/1999 Administered Social History Tobacco Use: Social History [...] Risk Notes Problem Moderate recurrent major depression (96983983) Major depressive disorder, recurrent, moderate (F33.1) Active confirmed Problem Severe recurrent major depression without psychotic features (78183881) Major depressive disorder, recurrent severe without psychotic features (F33.2) 09/14/19 24 Active confirmed Problem Generalized anxiety disorder (91572792) Generalized anxiety disorder (F41.1) 09/20/19 24 Active confirmed Problem Posttraumatic stress disorder (63820381) Post-traumatic stress disorder, chronic (F43.12) Active confirmed Problem Primary insomnia (1928617) Primary insomnia (F51.01) Active confirmed Problem Insomnia disorder related to another mental disorder (69587090) Insomnia due to other mental disorder (F51.05) Active confirmed Problem Attention deficit hyperactivity disorder, combined type (61196657) Attention-deficit hyperactivity disorder, combined type (F90.2) Active confirmed Problem 226249898 MDD (major depressive disorder), recurrent episode, mild (F33.0) Active confirmed Problem 2076078 Suicidal thought s (R45.851) Active confirmed Problem 46587142 Sleep disturbanc e (G47.9) Active confirmed Vital Signs Heart Rate 95 /min 08/28/2024 Temperature 99 degrees Fahrenheit 07/13/2024 117/78 Height-cm 167.64 cm 08/28/2024 Blood pressure diastolic 82 mm Hg 08/28/2024 Oximetry 99 % 08/28/2024 Weight-kg 107.5 kg 08/16/2024 Height 66.00 in 08/28/2024 Blood pressure systolic 129 mm Hg 08/28/2024 Weight 237 lbs 08/16/2024 BMI 38.25 kg/m2 08/16/2024 Encounters Encounter Location Date Provider Diagnosis [facility] [address] [facility] [address] [address] 08/16/2024 Mitesh Dawson Encounter for screening for cardiovascular disorders Z13.6 ; Encounter for screening for depression Z13.31 ; Generalized anxiety disorder F41.1 ; Primary insomnia F51.01 ; Attention-deficit hyperactivity disorder, combined type F90.2 and Major depressive disorder, recurrent, moderate F33.1 [facility] [employer] [facility] [address] [facility] [address] [place] [address] 09/06/2023 Mitesh Dawson Post-traumatic stres s disorder, chronic F43.12 ; Primary insomnia F51.01 ; Attention-deficit hyperactivity disorder, combined type F90.2 ; Generalized anxiety disorder F41.1 and Major depressive disorder, recurrent, moderate F33.1 [facility], [facility] [address] [place] [address] 09/14/2023 Kandy Dulce Major depressive disorder, recurrent severe without psychotic features F33.2 [facility], [facility] [address] [place] [address] 09/20/2023 Mitesh Dawson Major depressive disorder, recurrent, moderate F33.1 and Generalized anxiety disorder F41.1 [facility], [facility] [address] [place] [address] 10/05/2023 Mitesh Dawson [facility], [facility] [address] [place] [address] 10/11/2023 Mitesh Dawson Major depressive disorder, recurrent severe without psychotic features F33.2 ; Generalized anxiety disorder F41.1 ; Attention-deficit hyperactivity disorder, combined type F90.2 ; Post-traumatic stress disorder, chronic F43.12 and Insomnia due to other mental disorder F51.05 [facility], [facility] [address] [place] [address] 10/21/2023 Mitesh Dawson Major depressive disorder, recurrent severe without psychotic features F33.2 and Generalized anxiety disorder F41.1 [facility], [facility] [address] [place] [address] 11/01/2023 Kandy Dulce Major depressive disorder, recurrent severe without psychotic features F33.2 [facility], [facility] [address] [place] [address] 11/10/2023 Kandy Dulce Major depressive disorder, recurrent severe without psychotic features F33.2 [facility], [facility] [address] [place] [address] 12/02/2023 Damian Robe Major depressive disorder, recurrent severe without psychotic features F33.2 [facility], [facility] [address] [place] [address] 12/13/2023 Marciano Clubb Major depressive disorder, recurrent severe without psychotic features F33.2 [facility], [facility] [address] [place] [address] 12/29/2023 Mitesh Dawson Generalized anxiety disorder F41.1 ; Primary insomnia F51.01 ; Attention-deficit hyperactivity disorder, combined type F90.2 and Major depressive disorder, recurrent, moderate F33.1 [facility], [facility] [address] [place] [address] 01/06/2024 Marciano Clubb Major depressive disorder, recurrent severe without psychotic features F33.2 [facility], [facility] [address] [place] [address] 01/17/2024 Damian Robe Major depressive disorder, recurrent severe without psychotic features F33.2 and Sleep disturbance G47.9 [facility] [address] [place] [address] 01/28/2024 Marciano Clubb Major depressive disorder, recurrent severe without psychotic features F33.2 [facility], [facility] [address] [place] [address] 02/07/2024 Marciano Clubb Major depressive disorder, recurrent severe without psychotic features F33.2 [facility], [facility] [address] [place] [address] 02/17/2024 Marciano Clubb Major depressive disorder, recurrent severe without psychotic features F33.2 and Suicidal thoughts R45.851 [facility], [facility] [address] [place] [address] 02/28/2024 Marciano Clubb MDD (major depressiv e disorder), recurrent episode, mild F33.0 [facility] [address] [place] [address] 02/29/2024 Mitesh Dawson Generalized anxiety disorder F41.1 ; Primary insomnia F51.01 ; Attention-deficit hyperactivity disorder, combined type F90.2 and Major depressive disorder, recurrent, moderate F33.1 [facility], [facility] [address] [place] [address] 03/09/2024 Marciano Clubb MDD (major depressiv e disorder), recurrent episode, mild F33.0 [facility], [facility] [address] [place] [address] 03/20/2024 Marciano Clubb Major depressive disorder, recurrent severe without psychotic features F33.2 [facility], [facility] [address] [place] [address] 03/30/2024 Marciano Clubb Major depressive disorder, recurrent severe without psychotic features F33.2 [facility], [facility] [address] [place] [address] 04/10/2024 Marciano Clubb Major depressive disorder, recurrent severe without psychotic features F33.2 [facility], [facility] [address] [place] [address] 04/25/2024 Mitesh Dawson Generalized anxiety disorder F41.1 ; Primary insomnia F51.01 ; Attention-deficit hyperactivity disorder, combined type F90.2 and Major depressive disorder, recurrent, moderate F33.1 [facility], [facility] [address] [place] [address] 05/01/2024 Marciano Clubb Major depressive disorder, recurrent severe without psychotic features F33.2 [facility], [facility] [address] [place] [address] 05/12/2024 Marciano Clubb Major depressive disorder, recurrent severe without psychotic features F33.2 [facility], [facility] [address] [place] [address] 05/22/2024 Marciano Clubb Major depressive disorder, recurrent severe without psychotic features F33.2 [facility], [facility] [address] [place] [address] 06/01/2024 Marciano Clubb Major depressive disorder, recurrent severe without psychotic features F33.2 [facility], [facility] [address] [place] [address] 06/12/2024 Marciano Clubb Major depressive disorder, recurrent severe without psychotic features F33.2 [facility], [facility] [address] [place] [address] 06/22/2024 Marciano Clubb Major depressive disorder, recurrent severe without psychotic features F33.2 [facility] [employer], [facility] [address] [place] [address] 07/03/2024 Marciano Clubb Major depressive disorder, recurrent severe without psychotic features F33.2 [facility], [facility] [address] [place] [address] 07/13/2024 Marciano Clubb Major depressive disorder, recurrent severe without psychotic features F33.2 [facility] [employer], [facility] [address] [place] [address] 07/19/2024 Mitesh Dawson Encounter for screening for depression Z13.31 ; Encounter for screening for cardiovascular disorders Z13.6 ; Generalized anxiety disorder F41.1 ; Primary insomnia F51.01 ; Attention-deficit hyperactivity disorder, combined type F90.2 and Major depressive disorder, recurrent severe without psychotic features F33.2 [facility] [address] [facility] [address] [place] [address] 07/24/2024 Marciano Clubb Major depressive disorder, recurrent severe without psychotic features F33.2 [facility] [address] [place] [address] 08/02/2024 Marciano Clubb Major depressive disorder, recurrent severe without psychotic features F33.2 ; Encounter for screening for depression Z13.31 and Encounter for screening for cardiovascular disorders Z13.6 [facility] [address] [facility] [address] [place] [address] 08/09/2024 Marciano Clubb Major depressive disorder, recurrent severe without psychotic features F33.2 and Encounter for screening for cardiovascular disorders Z13.6 [facility] [address] [facility] [address] [place] [address] 08/14/2024 Marciano Clubb Major depressive disorder, recurrent severe without psychotic features F33.2 and Encounter for screening for cardiovascular disorders Z13.6 [facility] [address] [facility] [address] [place] [address] 08/21/2024 Marciano Clubb Major depressive disorder, recurrent severe without psychotic features F33.2 and Encounter for screening for cardiovascular disorders Z13.6 [facility] [address] [facility] [address] [place] [address] 08/28/2024 Marciano Clubb Major depressive disorder, recurrent severe without psychotic features F33.2 and Encounter for screening for cardiovascular disorders Z13.6 [facility] [address] [facility] [address] [place] [address] 09/25/2023 Provider Migration [facility] [address] [facility] [address] [place] [address] 09/26/2023 Provider Migration [facility], [place] [address] [facility] [address] [place] [address] 10/19/2023 Mitesh Dawson Major depressive disorder, recurrent severe without psychotic features F33.2 [facility], [facility] [address] [place] [address] 10/26/2023 Mitesh Dawson Major depressive disorder, recurrent severe without psychotic features F33.2 [facility], [facility] [address] [place] [address] 11/19/2023 Mitesh Dawson [facility], [facility] [address] [place] [address] 11/22/2023 Mitesh Dawson [facility], [facility] [address] [place] [address] 11/29/2023 Mitesh Dawson Primary insomnia F51.01 [facility], [facility] [address] [place] [address] 12/27/2023 Mitesh Dawson [facility], [facility] [address] [place] [address] 04/04/2024 Marciano Caal Major depressive disorder, recurrent severe without psychotic features F33.2 [facility], [facility] [address] [place] [address] 04/17/2024 Mitesh Dawson [facility], [facility] [address] [place] [address] 06/12/2024 Mitesh Dawson Major depressive disorder, recurrent severe without psychotic features F33.2 [facility], [facility] [address] [place] [address] 08/28/2024 Mitesh Dawson Major depressive disorder, recurrent severe without psychotic features F33.2 [facility], [facility] [address] [place] [address] 01/24/2024 Mitesh Dawson [facility], [facility] [address] [place] [address] 04/16/2024 Mitesh Dawson Major depressive disorder, recurrent, moderate F33.1 Assessments Encounter Date Diagnosis (ICD Code) Assessment Notes Treatment Notes Treatment Clinical Notes Section Notes 04/04/2024 Major depressive disorder, recurrent severe without psychotic features (ICD-10 - F33.2) 08/28/2024 Major depressive disorder, recurrent severe without psychotic features (ICD-10 - F33.2) 06/12/2024 Major depressive disorder, recurrent severe without psychotic features (ICD-10 - F33.2) 10/26/2023 Major depressive disorder, recurrent severe without psychotic features (ICD-10 - F33.2) 10/11/2023 Major depressive disorder, recurrent severe without psychotic features (ICD-10 - F33.2) cont Spravato 84mg every 10 days tolerated tx well, has had improvement in depression symptoms with treatment 10/11/2023 Generalized anxiety disorder (ICD-10 - F41.1) 12/29/2023 Generalized anxiety disorder (ICD-10 - F41.1) 1. Treatment-resist ant depression and anxiety: - Continue Bupropion 150 [...] treatment - Fax paperwork to the appropriate republican 6. Medication refills: Plan: - Refill Zolpidem [...] - F51.01) zaleplon 10 mg capsule 1. Treatment-resist ant depression and anxiety: - Continue Bupropion 150 [...] treatment - Fax paperwork to the appropriate republican 6. Medication refills: Plan: - Refill Zolpidem [...] for Atomoxetine 60 mg at this time 12/13/2023 Major depressive disorder, recurrent severe without psychotic features (ICD-10 - F33.2) 12/02/2023 Major depressive disorder, recurrent severe without psychotic features (ICD-10 - F33.2) 09/06/2023 Major depressive disorder, recurrent, moderate (ICD-10 - F33.1) 09/06/2023 Generalized anxiety disorder (ICD-10 - F41.1) 09/06/2023 Post-traumatic stress disorder, chronic (ICD-10 - F43.12) 09/06/2023 Primary insomnia (ICD-10 - F51.01) 09/06/2023 Attention-defici t hyperactivity disorder, combined type (ICD-10 - F90.2) 06/01/2024 Major depressive disorder, recurrent severe without psychotic features (ICD-10 - F33.2) continue current treatment as prescribed by primary psychiatric care provider. 1. Major Depressive Disorder - PHQ-9: 7 - Patient reports a depression rating of 7/10. - Plan: a. Continue current antidepressant medication regimen. c. Encourage regular physical activity. d. Continue psychotherapy for additional support. 2. Generalized Anxiety Disorder - ANGEL-7: 11 - Patient reports an anxiety rating of 10/10, attributing it to the general state of the world. - Plan:. b. continue cognitive-behav ioral therapy (CBT) or other evidence-based psychotherapy. b. Encourage practice of relaxation techniques (deep breathing exercises, mindfulness meditation). 3. Sleep - Patient reports sleeping approximately 6-7 hours per night. - Plan: a. Encourage maintaining consistent sleep schedule and practicing good sleep hygiene. b. Monitor sleep duration and quality during follow-up appointments. 4. Safety - Patient denies thoughts of suicide, self-harm, or harm to others. - Patient denies hallucinations, delusions, or paranoia. - Plan: a. Continue monitoring for changes in mood or behavior indicating increased risk. b. patient is aware of crisis hotline. 5. Medications - Patient reports no new medications. - Plan: a. Review current medication regimen during follow-up appointments. b. Adjust as needed based on patient response and side effects. 6. Physical Health - Patient reports no new physical complaints. - Plan: a. Encourage maintaining regular primary care appointments. b. Advise patient to report any new concerns to their healthcare provider. 05/22/2024 Major depressive disorder, recurrent severe without psychotic features (ICD-10 - F33.2) 1. Depression - Patient reports moderate depression (5-6/10). - Plan: a. Continue current antidepressant medication. b. Monitor for changes in symptoms. c. Encourage regular physical activity. 2. Anxiety - Patient reports high anxiety (8-9/10). - Plan: a. Continue current medications as prescribed by primary psychiatric care provider. b. Recommend relaxation techniques (deep breathing exercises, mindfulness meditation). 3. Sleep Disturbance - Patient reports getting adequate sleep. - Plan: A.Recommend good sleep hygiene practices. 4. Overeating - Patient reports good appetite and overeating. - Plan: a. Encourage balanced diet. b. Monitor for potential weight gain and related health issues. 5. Medication Management - Patient reports no new medications. - Plan: a. Continue monitoring response to current medications. 6. Physical Complaints - Patient reports no new physical complaints. - Plan: a. Continue monitoring for changes in physical health. 7. Safety Assessment - Patient denies thoughts of suicide, self-harm, or harm to others. - Patient denies hallucinations, delusions, or paranoia. - Plan: a. Continue monitoring at future appointments. 05/12/2024 Major depressive disorder, recurrent severe without [...] changes in safety concerns during follow-up appointments. 04/25/2024 Generalized anxiety disorder (ICD-10 - F41.1) 1. Bipolar Disorder: - Patient reported missing Vraylar for a month, resulting in a manic episode. The patient has since refilled the prescription. Plan: - Continue Vraylar 3 mg daily. - Monitor mood stability and medication adherence. - Encourage the patient to set reminders for medication intake to prevent future missed doses. 2. Depression: - Patient experiences depressive symptoms mostly in the mornings and evenings. - Vraylar helps with sleep but does not alleviate nightmares. Plan: - Continue current medications, including escitalopram 20 mg daily, bupropion 150 mg daily, and lamotrigine 100 mg daily. - Monitor response to treatment and consider adjusting dosages if needed. 3. Insomnia: - Patient switched from trazodone to zaleplon due to the former's decreased efficacy. - The patient still experiences sleep disturbances and nightmares. Plan: - Continue zaleplon 10 mg at bedtime. - Monitor sleep quality and consider alternative treatments if insomnia persists. 4. Anxiety: - Patient missed the last Spravato session, resulting in increased anxiety. - The next appointment is scheduled for the . Plan: - Continue Spravato every 10 days. - Encourage the patient to prioritize mental health appointments to maintain treatment efficacy. 02/07/2024 Major depressive disorder, recurrent severe without psychotic features (ICD-10 - F33.2) 1. Depression - Patient rates depression 6-11/16. - Plan: a. Continue current antidepressant medication. b. Monitor mood and depressive symptoms at next appointment. 2. Anxiety - Patient rates anxiety 5/. - Plan: a. Continue current anxiolytic medication. b. Encourage relaxation techniques. c. Consider therapy referral if needed. 3. Sleep Disturbance - Patient reports inconsistent sleep patterns. - Tried melatonin 5mg ([place] gummies) without improvement. - Plan: a. Recommend magnesium supplementation for REM sleep quality. b. Reassess sleep patterns at next appointment. c. Consider alternative sleep aids if needed. 4. Appetite Disturbance - Patient reports overeating or undereating, no in-between. - Plan: a. Encourage balanced diet. b. Consider reimbursement manager referral if needed. c. Monitor appetite changes [...] No reported medication changes or physical complaints. 08/09/2024 Major depressive disorder, recurrent severe without psychotic features (ICD-10 - F33.2) continue current treatment as prescribed by primary psychiatric care provider SPRAVATO can cause serious side effects, including: Sedation, dissociation, and respiratory depression. SPRAVATO may cause sleepiness (sedation), fainting, dizziness, spinning sensation, anxiety, or feeling disconnected from yourself, your thoughts, feelings, space and time (dissociation), and breathing problems (respiratory depression and respiratory arrest). Tell your healthcare provider right away if you feel like you cannot stay awake or if you feel like you are going to pass out. Your healthcare provider must monitor you for serious side effects for at least 2 hours after taking SPRAVATO. Your healthcare provider will decide when you are ready to leave the healthcare setting. Abuse and misuse. There is a risk for abuse and misuse with SPRAVATO, which may lead to physical and psychological dependence. Your healthcare provider should check you for signs of abuse, misuse, and dependence before and during treatment. Tell your healthcare provider if you have ever abused or been dependent on alcohol, prescription medicines, or street drugs. Your healthcare provider can tell you more about the differences between physical and psychological dependence in drug addiction. SPRAVATO Risk Evaluation and Mitigation Strategy (REMS). Because of the risks for sedation, dissociation, respiratory depression, and abuse and misuse, SPRAVATO is only available through a restricted program called the SPRAVATO Risk Evaluation and Mitigation Strategy (REMS) Program. SPRAVATO can only be administered at healthcare settings certified in the SPRAVATO REMS Program. Patients treated in outpatient healthcare settings (such as medical offices and clinics) must be enrolled in the program. Increased risk of suicidal thoughts and actions. Antidepressant medicines may increase suicidal thoughts and actions in some people 24 years of age and younger, especially within the first few months of treatment or when the dose is changed. SPRAVATO is not for use in children. Depression and other serious mental illnesses are the most important causes of suicidal thoughts and actions. Some people may have a higher risk of having suicidal thoughts or actions. These include people who have (or have a family history of) depression or a history of suicidal thoughts or actions. How can I watch for and try to prevent suicidal thoughts and actions in myself or a family member? Pay close attention to any changes, especially sudden changes, in mood, behavior, thoughts, or feelings, or if you develop suicidal thoughts or actions. Tell your healthcare provider right away if you have any new or sudden changes in mood, behavior, thoughts, or feelings, or if you develop suicidal thoughts or actions. Keep all follow-up visits with your healthcare provider as scheduled. Call your healthcare provider between visits as needed, especially if you have concerns about symptoms. Tell your healthcare provider or get emergency help right away if you or your family member have any of the following symptoms, especially if they are new, worse, or worry you: thoughts about suicide or dying new or worse depression feeling very agitated or restless trouble sleeping (insomnia) acting aggressive, being angry or violent an extreme increase in activity and talking (alexander) suicide attempts new or worse anxiety panic attacks new or worse irritability acting on dangerous impulses other unusual changes in behavior or mood Do not drive, operate machinery, or do anything where you need to be completely alert after taking SPRAVATO. Do not take part in these activities until the next day following a restful sleep. Increased blood pressure. SPRAVATO can cause a temporary increase in your blood pressure that may last for about 4 hours after taking a dose. Your healthcare provider will check your blood pressure before taking SPRAVATO and for at least 2 hours after you take SPRAVATO. Tell your healthcare provider right away if you get chest pain, shortness of breath, sudden severe headache, change in vision, or seizures after taking SPRAVATO. Problems with thinking clearly. Tell your healthcare provider if you have problems thinking or remembering. Bladder problems. Tell your healthcare provider if you develop trouble urinating, such as a frequent or urgent need to urinate, pain when urinating, or urinating frequently at night. The most common side effects of SPRAVATO include: feeling disconnected from yourself, your thoughts, feelings and things around you dizziness nausea feeling sleepy spinning sensation decreased feeling of sensitivity (numbness) feeling anxious lack of energy increased blood pressure vomiting feeling drunk headache feeling very happy or excited If these common side effects occur, they usually happen right after taking SPRAVATO and go away the same day. 08/02/2024 Major depressive disorder, recurrent severe without psychotic features (ICD-10 - F33.2) SPRAVATO can cause serious side effects, including: Sedation, dissociation, and respiratory depression. SPRAVATO may cause sleepiness (sedation), fainting, dizziness, spinning sensation, anxiety, or feeling disconnected from yourself, your thoughts, feelings, space and time (dissociation), and breathing problems (respiratory depression and respiratory arrest). Tell your healthcare provider right away if you feel like you cannot stay awake or if you feel like you are going to pass out. Your healthcare provider must monitor you for serious side effects for at least 2 hours after taking SPRAVATO. Your healthcare provider will decide when you are ready to leave the healthcare setting. Abuse and misuse. There is a risk for abuse and misuse with SPRAVATO, which may lead to physical and psychological dependence. Your healthcare provider should check you for signs of abuse, misuse, and dependence before and during treatment. Tell your healthcare provider if you have ever abused or been dependent on alcohol, prescription medicines, or street drugs. Your healthcare provider can tell you more about the differences between physical and psychological dependence in drug addiction. SPRAVATO Risk Evaluation and Mitigation Strategy (REMS). Because of the risks for sedation, dissociation, respiratory depression, and abuse and misuse, SPRAVATO is only available through a restricted program called the SPRAVATO Risk Evaluation and Mitigation Strategy (REMS) Program. SPRAVATO can only be administered at healthcare settings certified in the SPRAV[facility]O REMS Program. Patients treated in outpatient healthcare settings (such as medical offices and clinics) must be enrolled in the program. Increased risk of suicidal thoughts and actions. Antidepressant medicines may increase suicidal thoughts and actions in some people 24 years of age and younger, especially within the first few months of treatment or when the dose is changed. SPRAVATO is not for use in children. Depression and other serious mental illnesses are the most important causes of suicidal thoughts and actions. Some people may have a higher risk of having suicidal thoughts or actions. These include people who have (or have a family history of) depression or a history of suicidal thoughts or actions. How can I watch for and try to prevent suicidal thoughts and actions in myself or a family member? Pay close attention to any changes, especially sudden changes, in mood, behavior, thoughts, or feelings, or if you develop suicidal thoughts or actions. Tell your healthcare provider right away if you have any new or sudden changes in mood, behavior, thoughts, or feelings, or if you develop suicidal thoughts or actions. Keep all follow-up visits with your healthcare provider as scheduled. Call your healthcare provider between visits as needed, especially if you have concerns about symptoms. Tell your healthcare provider or get emergency help right away if you or your family member have any of the following symptoms, especially if they are new, worse, or worry you: thoughts about suicide or dying new or worse depression feeling very agitated or restless trouble sleeping (insomnia) acting aggressive, being angry or violent an extreme increase in activity and talking (alexander) suicide attempts new or worse anxiety panic attacks new or worse irritability acting on dangerous impulses other unusual changes in behavior or mood Do not drive, operate machinery, or do anything where you need to be completely alert after taking SPRAVATO. Do not take part in these activities until the next day following a restful sleep. Increased blood pressure. SPRAVATO can cause a temporary increase in your blood pressure that may last for about 4 hours after taking a dose. Your healthcare provider will check your blood pressure before taking SPRAVATO and for at least 2 hours after you take SPRAVATO. Tell your healthcare provider right away if you get chest pain, shortness of breath, sudden severe headache, change in vision, or seizures after taking SPRAVATO. Problems with thinking clearly. Tell your healthcare provider if you have problems thinking or remembering. Bladder problems. Tell your healthcare provider if you develop trouble urinating, such as a frequent or urgent need to urinate, pain when urinating, or urinating frequently at night. The most common side effects of SPRAVATO include: feeling disconnected from yourself, your thoughts, feelings and things around you dizziness nausea feeling sleepy spinning sensation decreased feeling of sensitivity (numbness) feeling anxious lack of energy increased blood pressure vomiting feeling drunk headache feeling very happy or excited If these common side effects occur, they usually happen right after taking SPRAVATO and go away the same day. 08/28/2024 Major depressive disorder, recurrent severe without psychotic features (ICD-10 - F33.2) continue current treatment as prescribed by primary psychiatric care provider SPRAVATO can cause serious side effects, including: Sedation, dissociation, and respiratory depression. SPRAVATO may cause sleepiness (sedation), fainting, dizziness, spinning sensation, anxiety, or feeling disconnected from yourself, your thoughts, feelings, space and time (dissociation), and breathing problems (respiratory depression and respiratory arrest). Tell your healthcare provider right away if you feel like you cannot stay awake or if you feel like you are going to pass out. Your healthcare provider must monitor you for serious side effects for at least 2 hours after taking SPRAVATO. Your healthcare provider will decide when you are ready to leave the healthcare setting. Abuse and misuse. There is a risk for abuse and misuse with SPRAVATO, which may lead to physical and psychological dependence. Your healthcare provider should check you for signs of abuse, misuse, and dependence before and during treatment. Tell your healthcare provider if you have ever abused or been dependent on alcohol, prescription medicines, or street drugs. Your healthcare provider can tell you more about the differences between physical and psychological dependence in drug addiction. SPRAVATO Risk Evaluation and Mitigation Strategy (REMS). Because of the risks for sedation, dissociation, respiratory depression, and abuse and misuse, SPRAVATO is only available through a restricted program called the SPRAVATO Risk Evaluation and Mitigation Strategy (REMS) Program. SPRAVATO can only be administered at healthcare settings certified in the SPRAVATO REMS Program. Patients treated in outpatient healthcare settings (such as medical offices and clinics) must be enrolled in the program. Increased risk of suicidal thoughts and actions. Antidepressant medicines may increase suicidal thoughts and actions in some people 24 years of age and younger, especially within the first few months of treatment or when the dose is changed. SPRAVATO is not for use in children. Depression and other serious mental illnesses are the most important causes of suicidal thoughts and actions. Some people may have a higher risk of having suicidal thoughts or actions. These include people who have (or have a family history of) depression or a history of suicidal thoughts or actions. How can I watch for and try to prevent suicidal thoughts and actions in myself or a family member? Pay close attention to any changes, especially sudden changes, in mood, behavior, thoughts, or feelings, or if you develop suicidal thoughts or actions. Tell your healthcare provider right away if you have any new or sudden changes in mood, behavior, thoughts, or feelings, or if you develop suicidal thoughts or actions. Keep all follow-up visits with your healthcare provider as scheduled. Call your healthcare provider between visits as needed, especially if you have concerns about symptoms. Tell your healthcare provider or get emergency help right away if you or your family member have any of the following symptoms, especially if they are new, worse, or worry you: thoughts about suicide or dying new or worse depression feeling very agitated or restless trouble sleeping (insomnia) acting aggressive, being angry or violent an extreme increase in activity and talking (alexander) suicide attempts new or worse anxiety panic attacks new or worse irritability acting on dangerous impulses other unusual changes in behavior or mood Do not drive, operate machinery, or do anything where you need to be completely alert after taking SPRAVATO. Do not take part in these activities until the next day following a restful sleep. Increased blood pressure. SPRAVATO can cause a temporary increase in your blood pressure that may last for about 4 hours after taking a dose. Your healthcare provider will check your blood pressure before taking SPRAVATO and for at least 2 hours after you take SPRAVATO. Tell your healthcare provider right away if you get chest pain, shortness of breath, sudden severe headache, change in vision, or seizures after taking SPRAVATO. Problems with thinking clearly. Tell your healthcare provider if you have problems thinking or remembering. Bladder problems. Tell your healthcare provider if you develop trouble urinating, such as a frequent or urgent need to urinate, pain when urinating, or urinating frequently at night. The most common side effects of SPRAVATO include: feeling disconnected from yourself, your thoughts, feelings and things around you dizziness nausea feeling sleepy spinning sensation decreased feeling of sensitivity (numbness) feeling anxious lack of energy increased blood pressure vomiting feeling drunk headache feeling very happy or excited If these common side effects occur, they usually happen right after taking SPRAVATO and go away the same day. 04/10/2024 Major depressive disorder, recurrent severe without psychotic features (ICD-10 - F33.2) 1. Major Depressive Disorder - Patient reports depression severity at -12/17. - Plan: a. Continue current antidepressant medication. b. Encourage regular physical activity and psychotherapy. 2. Generalized Anxiety Disorder - Patient reports anxiety severity at -10/17. - Plan: a. Continue current anxiolytic medication. b. Encourage relaxation techniques and cognitive-behavi oral therapy. 3. Sleep - Patient started to [...] a. Assess for presence of psychotic symptoms. 02/29/2024 Generalized anxiety disorder (ICD-10 - F41.1) [...] of 8 treatments before the next visit. 03/09/2024 MDD (major depressive disorder), recurrent episode, [...] - No reported hallucinations, delusions, or paranoia. 08/21/2024 Major depressive disorder, recurrent severe without psychotic features (ICD-10 - F33.2) continue current treatment as prescribed by primary psychiatric care provider SPRAVATO can cause serious side effects, including: Sedation, dissociation, and respiratory depression. SPRAVATO may cause sleepiness (sedation), fainting, dizziness, spinning sensation, anxiety, or feeling disconnected from yourself, your thoughts, feelings, space and time (dissociation), and breathing problems (respiratory depression and respiratory arrest). Tell your healthcare provider right away if you feel like you cannot stay awake or if you feel like you are going to pass out. Your healthcare provider must monitor you for serious side effects for at least 2 hours after taking SPRAVATO. Your healthcare provider will decide when you are ready to leave the healthcare setting. Abuse and misuse. There is a risk for abuse and misuse with SPRAVATO, which may lead to physical and psychological dependence. Your healthcare provider should check you for signs of abuse, misuse, and dependence before and during treatment. Tell your healthcare provider if you have ever abused or been dependent on alcohol, prescription medicines, or street drugs. Your healthcare provider can tell you more about the differences between physical and psychological dependence in drug addiction. SPRAVATO Risk Evaluation and Mitigation Strategy (REMS). Because of the risks for sedation, dissociation, respiratory depression, and abuse and misuse, SPRAVATO is only available through a restricted program called the SPRAVATO Risk Evaluation and Mitigation Strategy (REMS) Program. SPRAVATO can only be administered at healthcare settings certified in the SPRAVATO REMS Program. Patients treated in outpatient healthcare settings (such as medical offices and clinics) must be enrolled in the program. Increased risk of suicidal thoughts and actions. Antidepressant medicines may increase suicidal thoughts and actions in some people 24 years of age and younger, especially within the first few months of treatment or when the dose is changed. SPRAVATO is not for use in children. Depression and other serious mental illnesses are the most important causes of suicidal thoughts and actions. Some people may have a higher risk of having suicidal thoughts or actions. These include people who have (or have a family history of) depression or a history of suicidal thoughts or actions. How can I watch for and try to prevent suicidal thoughts and actions in myself or a family member? Pay close attention to any changes, especially sudden changes, in mood, behavior, thoughts, or feelings, or if you develop suicidal thoughts or actions. Tell your healthcare provider right away if you have any new or sudden changes in mood, behavior, thoughts, or feelings, or if you develop suicidal thoughts or actions. Keep all follow-up visits with your healthcare provider as scheduled. Call your healthcare provider between visits as needed, especially if you have concerns about symptoms. Tell your healthcare provider or get emergency help right away if you or your family member have any of the following symptoms, especially if they are new, worse, or worry you: thoughts about suicide or dying new or worse depression feeling very agitated or restless trouble sleeping (insomnia) acting aggressive, being angry or violent an extreme increase in activity and talking (alexander) suicide attempts new or worse anxiety panic attacks new or worse irritability acting on dangerous impulses other unusual changes in behavior or mood Do not drive, operate machinery, or do anything where you need to be completely alert after taking SPRAVATO. Do not take part in these activities until the next day following a restful sleep. Increased blood pressure. SPRAVATO can cause a temporary increase in your blood pressure that may last for about 4 hours after taking a dose. Your healthcare provider will check your blood pressure before taking SPRAVATO and for at least 2 hours after you take SPRAVATO. Tell your healthcare provider right away if you get chest pain, shortness of breath, sudden severe headache, change in vision, or seizures after taking SPRAVATO. Problems with thinking clearly. Tell your healthcare provider if you have problems thinking or remembering. Bladder problems. Tell your healthcare provider if you develop trouble urinating, such as a frequent or urgent need to urinate, pain when urinating, or urinating frequently at night. The most common side effects of SPRAVATO include: feeling disconnected from yourself, your thoughts, feelings and things around you dizziness nausea feeling sleepy spinning sensation decreased feeling of sensitivity (numbness) feeling anxious lack of energy increased blood pressure vomiting feeling drunk headache feeling very happy or excited If these common side effects occur, they usually happen right after taking SPRAVATO and go away the same day. 08/16/2024 Encounter for screening for cardiovascular disorders (ICD-10 - Z13.6) 08/14/2024 Major depressive disorder, recurrent severe without psychotic features (ICD-10 - F33.2) continue current treatment as prescribed by primary psychiatric care provider SPRAVATO can cause serious side effects, including: Sedation, dissociation, and respiratory depression. SPRAVATO may cause sleepiness (sedation), fainting, dizziness, spinning sensation, anxiety, or feeling disconnected from yourself, your thoughts, feelings, space and time (dissociation), and breathing problems (respiratory depression and respiratory arrest). Tell your healthcare provider right away if you feel like you cannot stay awake or if you feel like you are going to pass out. Your healthcare provider must monitor you for serious side effects for at least 2 hours after taking SPRAVATO. Your healthcare provider will decide when you are ready to leave the healthcare setting. Abuse and misuse. There is a risk for abuse and misuse with SPRAVATO, which may lead to physical and psychological dependence. Your healthcare provider should check you for signs of abuse, misuse, and dependence before and during treatment. Tell your healthcare provider if you have ever abused or been dependent on alcohol, prescription medicines, or street drugs. Your healthcare provider can tell you more about the differences between physical and psychological dependence in drug addiction. SPRAVATO Risk Evaluation and Mitigation Strategy (REMS). Because of the risks for sedation, dissociation, respiratory depression, and abuse and misuse, SPRAVATO is only available through a restricted program called the SPRAVATO Risk Evaluation and Mitigation Strategy (REMS) Program. SPRAVATO can only be administered at healthcare settings certified in the SPRAVATO REMS Program. Patients treated in outpatient healthcare settings (such as medical offices and clinics) must be enrolled in the program. Increased risk of suicidal thoughts and actions. Antidepressant medicines may increase suicidal thoughts and actions in some people 24 years of age and younger, especially within the first few months of treatment or when the dose is changed. SPRAVATO is not for use in children. Depression and other serious mental illnesses are the most important causes of suicidal thoughts and actions. Some people may have a higher risk of having suicidal thoughts or actions. These include people who have (or have a family history of) depression or a history of suicidal thoughts or actions. How can I watch for and try to prevent suicidal thoughts and actions in myself or a family member? Pay close attention to any changes, especially sudden changes, in mood, behavior, thoughts, or feelings, or if you develop suicidal thoughts or actions. Tell your healthcare provider right away if you have any new or sudden changes in mood, behavior, thoughts, or feelings, or if you develop suicidal thoughts or actions. Keep all follow-up visits with your healthcare provider as scheduled. Call your healthcare provider between visits as needed, especially if you have concerns about symptoms. Tell your healthcare provider or get emergency help right away if you or your family member have any of the following symptoms, especially if they are new, worse, or worry you: thoughts about suicide or dying new or worse depression feeling very agitated or restless trouble sleeping (insomnia) acting aggressive, being angry or violent an extreme increase in activity and talking (alexander) suicide attempts new or worse anxiety panic attacks new or worse irritability acting on dangerous impulses other unusual changes in behavior or mood Do not drive, operate machinery, or do anything where you need to be completely alert after taking SPRAVATO. Do not take part in these activities until the next day following a restful sleep. Increased blood pressure. SPRAVATO can cause a temporary increase in your blood pressure that may last for about 4 hours after taking a dose. Your healthcare provider will check your blood pressure before taking SPRAVATO and for at least 2 hours after you take SPRAVATO. Tell your healthcare provider right away if you get chest pain, shortness of breath, sudden severe headache, change in vision, or seizures after taking SPRAVATO. Problems with thinking clearly. Tell your healthcare provider if you have problems thinking or remembering. Bladder problems. Tell your healthcare provider if you develop trouble urinating, such as a frequent or urgent need to urinate, pain when urinating, or urinating frequently at night. The most common side effects of SPRAVATO include: feeling disconnected from yourself, your thoughts, feelings and things around you dizziness nausea feeling sleepy spinning sensation decreased feeling of sensitivity (numbness) feeling anxious lack of energy increased blood pressure vomiting feeling drunk headache feeling very happy or excited If these common side effects occur, they usually happen right after taking SPRAVATO and go away the same day. 09/14/2023 Major depressive disorder, recurrent severe without psychotic features (ICD-10 - F33.2) 09/20/2023 Major depressive disorder, recurrent, moderate (ICD-10 - F33.1) 09/20/2023 Generalized anxiety disorder (ICD-10 - F41.1) 11/01/2023 Major depressive disorder, recurrent severe without psychotic features (ICD-10 - F33.2) Continue current medications, esketamine treatments as scheduled. 11/29/2023 Primary insomnia (ICD-10 - F51.01) 01/06/2024 Major depressive disorder, recurrent severe without psychotic features (ICD-10 - F33.2) 1. Depression - She reports a depression rating of 4/10. - No recent medication changes. - Continue her current treatment plan and monitor her progress. 2. Anxiety - She reports an anxiety rating of 7/10, exacerbated by a recent stressor ([employer] issue). - She describes her anxiety as [...] changes in symptoms before her next appointment. 01/17/2024 Major depressive disorder, recurrent severe without psychotic features (ICD-10 - F33.2) 1. Anxiety - She reports anxiety level at 6/10. - No suicidal/homicid al ideation, delusions, paranoia, or hallucinations. - Plan: [...] sleep. - Plan: a. Recommend trial of [id number] magnesium supplement (200 mg) to improve sleep quality. b. Encourage good sleep hygiene like consistent bed/wake times and limited screen time before bed. 3. Overeating - She reports overeating. - Patient mentions it balances out with Mounjaro Plan a. Encourage tracking food intake and identifying overeating triggers. b. Recommend consultation with a reimbursement manager/onofre mays for dietary guidance. c. Encourage regular physical activity. 4. General Health - No reported physical complaints like headache, nausea, vomiting, or diarrhea. - Plan: a. Continue monitoring general health at follow-ups. b. Encourage reporting any new/worsening symptoms promptly. 01/17/2024 Sleep disturbance (ICD-10 - G47.9) 1. Anxiety - She reports anxiety level at 10/17. - No suicidal/homicid al ideation, delusions, paranoia, or hallucinations. - Plan: [...] sleep. - Plan: a. Recommend trial of [id number] magnesium supplement (200 mg) to improve sleep quality. b. Encourage good sleep hygiene like consistent bed/wake times and limited screen time before bed. 3. Overeating - She reports overeating. - Patient mentions it balances out with Mounjaro Plan a. Encourage tracking food intake and identifying overeating triggers. b. Recommend consultation with a reimbursement manager/onofre mays for dietary guidance. c. Encourage regular physical activity. 4. General Health - No reported physical complaints like headache, nausea, vomiting, or diarrhea. - Plan: a. Continue monitoring general health at follow-ups. b. Encourage reporting any new/worsening symptoms promptly. 02/17/2024 Major depressive disorder, recurrent severe without [...] go back to sleep. - Appointment with bobbin disker tomorrow to discuss sleep issues. - Encourage good sleep hygiene (consistent schedule, relaxing bedtime environment). 4. Appetite Disturbance - Reports appetite being all over the place, with periods of overeating and not eating. - Monitor appetite and eating habits. - Encourage balanced diet and regular meal schedule. - Consider referral to reimbursement manager if issues persist. 07/19/2024 Encounter for screening for depression (ICD-10 - Z13.31) 06/12/2024 Major depressive disorder, recurrent severe without psychotic features (ICD-10 - F33.2) continue current treatment as prescribed by primary psychiatric care provider. 04/16/2024 Major depressive disorder, recurrent, moderate (ICD-10 - F33.1) 11/10/2023 Major depressive disorder, recurrent severe without psychotic features (ICD-10 - F33.2) Continue current treatmet plan. 10/21/2023 Major depressive disorder, recurrent severe without psychotic features (ICD-10 - F33.2) tolerates Spravato treatment well Spravato 84mg every 10 days you have a upcoming appointment for Spravato nasal spray on Please arrive 15 to 20 minutes before your appointment. Make sure you check in with the first front ventilator Please do not eat or drink 2 [...] Make sure you check in with the first front ventilator Please do not eat or drink 2 [...] the next day after a restful sleep 10/19/2023 Major depressive disorder, recurrent severe without psychotic features (ICD-10 - F33.2) 07/24/2024 Major depressive disorder, recurrent severe without psychotic features (ICD-10 - F33.2) 07/13/2024 Major depressive disorder, recurrent severe without psychotic features (ICD-10 - F33.2) continue current treatment as prescribed by primary psychiatric care provider. 07/03/2024 Major depressive disorder, recurrent severe without psychotic features (ICD-10 - F33.2) continue current treatment as prescribed by primary psychiatric care provider. 06/22/2024 Major depressive disorder, recurrent severe without psychotic features (ICD-10 - F33.2) Continue current treatment as prescribed by primary psychiatric care provider. 08/14/2024 Encounter for screening for cardiovascular disorders (ICD-10 - Z13.6) 08/16/2024 Encounter for screening for depression (ICD-10 - Z13.31) 08/21/2024 Encounter for screening for cardiovascular disorders (ICD-10 - Z13.6) 02/29/2024 Primary insomnia (ICD-10 - F51.01) zaleplon [...] Monitor overall physical health at future visits. 08/28/2024 Encounter for screening for cardiovascular disorders (ICD-10 - Z13.6) 08/09/2024 Encounter for screening for cardiovascular disorders (ICD-10 - Z13.6) 08/02/2024 Encounter for screening for depression (ICD-10 - Z13.31) 04/25/2024 Primary insomnia (ICD-10 - F51.01) zaleplon 10 mg capsule 1. Bipolar Disorder: - Patient reported missing Vraylar for a month, resulting in a manic episode. The patient has since refilled the prescription. Plan: - Continue Vraylar 3 mg daily. - Monitor mood stability and medication adherence. - Encourage the patient to set reminders for medication intake to prevent future missed doses. 2. Depression: - Patient experiences depressive symptoms mostly in the mornings and evenings. - Vraylar helps with sleep but does not alleviate nightmares. Plan: - Continue current medications, including escitalopram 20 mg daily, bupropion 150 mg daily, and lamotrigine 100 mg daily. - Monitor response to treatment and consider adjusting dosages if needed. 3. Insomnia: - Patient switched from trazodone to zaleplon due to the former's decreased efficacy. - The patient still experiences sleep disturbances and nightmares. Plan: - Continue zaleplon 10 mg at bedtime. - Monitor sleep quality and consider alternative treatments if insomnia persists. 4. Anxiety: - Patient missed the last Spravato session, resulting in increased anxiety. - The next appointment is scheduled for the . Plan: - Continue Spravato every 10 days. - Encourage the patient to prioritize mental health appointments to maintain treatment efficacy. 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 Treatment-resist ant depression and anxiety: - Continue Bupropion 150 [...] treatment - Fax paperwork to the appropriate republican 6. Medication refills: Plan: - Refill Zolpidem [...] for Atomoxetine 60 mg at this time 07/19/2024 Encounter for screening for cardiovascular disorders (ICD-10 - Z13.6) 10/11/2023 Attention-defici t hyperactivity disorder, combined type (ICD-10 - F90.2) 10/11/2023 Post-traumatic stress disorder, chronic (ICD-10 - F43.12) continue weekly counseling with Krista 04/25/2024 Attention-defici t hyperactivity disorder, combined type (ICD-10 - F90.2) atomoxetine 60mg daily adhd, she has gluacoma, no stimulants - cont atom 1. Bipolar Disorder: - Patient reported missing Vraylar for a month, resulting in a manic episode. The patient has since refilled the prescription. Plan: - Continue Vraylar 3 mg daily. - Monitor mood stability and medication adherence. - Encourage the patient to set reminders for medication intake to prevent future missed doses. 2. Depression: - Patient experiences depressive symptoms mostly in the mornings and evenings. - Vraylar helps with sleep but does not alleviate nightmares. Plan: - Continue current medications, including escitalopram 20 mg daily, bupropion 150 mg daily, and lamotrigine 100 mg daily. - Monitor response to treatment and consider adjusting dosages if needed. 3. Insomnia: - Patient switched from trazodone to zaleplon due to the former's decreased efficacy. - The patient still experiences sleep disturbances and nightmares. Plan: - Continue zaleplon 10 mg at bedtime. - Monitor sleep quality and consider alternative treatments if insomnia persists. 4. Anxiety: - Patient missed the last Spravato session, resulting in increased anxiety. - The next appointment is scheduled for the . Plan: - Continue Spravato every 10 days. - Encourage the patient to prioritize mental health appointments to maintain treatment efficacy. 12/29/2023 Major depressive disorder, recurrent, moderate (ICD-10 - F33.1) spravato 84mg every 10 days, lamotrigine 100 mg tablet - daily bupropion xl 150mg daily, escitalopram 20mg daily, vraylar 3mg daily 1. Treatment-resist ant depression and anxiety: - Continue Bupropion 150 [...] treatment - Fax paperwork to the appropriate republican 6. Medication refills: Plan: - Refill Zolpidem [...] for Atomoxetine 60 mg at this time 07/19/2024 Generalized anxiety disorder (ICD-10 - F41.1) 07/19/2024 Primary insomnia (ICD-10 - F51.01) zaleplon 10 mg capsule 08/02/2024 Encounter for screening for cardiovascular disorders (ICD-10 - Z13.6) 02/29/2024 Attention-defici t hyperactivity disorder, combined type [...] of 8 treatments before the next visit. 08/16/2024 Generalized anxiety disorder (ICD-10 - F41.1) 08/16/2024 Primary insomnia (ICD-10 - F51.01) zaleplon 10 mg capsule 08/16/2024 Attention-defici t hyperactivity disorder, combined type (ICD-10 - F90.2) atomoxetine 60mg daily adhd, she has gluacoma, no stimulants - cont atom 07/19/2024 Attention-defici t hyperactivity disorder, combined type (ICD-10 - F90.2) atomoxetine 60mg daily adhd, she has gluacoma, no stimulants - cont atom 04/25/2024 Major depressive disorder, recurrent, moderate (ICD-10 - F33.1) spravato 84mg every 10 days, lamotrigine 100 mg tablet - daily bupropion xl 150mg daily, escitalopram 20mg daily, vraylar 3mg daily 1. Bipolar Disorder: - Patient reported missing Vraylar for a month, resulting in a manic episode. The patient has since refilled the prescription. Plan: - Continue Vraylar 3 mg daily. - Monitor mood stability and medication adherence. - Encourage the patient to set reminders for medication intake to prevent future missed doses. 2. Depression: - Patient experiences depressive symptoms mostly in the mornings and evenings. - Vraylar helps with sleep but does not alleviate nightmares. Plan: - Continue current medications, including escitalopram 20 mg daily, bupropion 150 mg daily, and lamotrigine 100 mg daily. - Monitor response to treatment and consider adjusting dosages if needed. 3. Insomnia: - Patient switched from trazodone to zaleplon due to the former's decreased efficacy. - The patient still experiences sleep disturbances and nightmares. Plan: - Continue zaleplon 10 mg at bedtime. - Monitor sleep quality and consider alternative treatments if insomnia persists. 4. Anxiety: - Patient missed the last Spravato session, resulting in increased anxiety. - The next appointment is scheduled for the . Plan: - Continue Spravato every 10 days. - Encourage the patient to prioritize mental health appointments to maintain treatment efficacy. 02/29/2024 Major depressive disorder, recurrent, moderate (ICD-10 [...] of 8 treatments before the next visit. 10/11/2023 Insomnia due to other mental disorder (ICD-10 - F51.05) 07/19/2024 Major depressive disorder, recurrent severe without psychotic features (ICD-10 - F33.2) 08/16/2024 Major depressive disorder, recurrent, moderate (ICD-10 - F33.1) 02/07/2024 Other Assessment and plan reviewed with [...] [id number]. 1. Depression - Patient rates depression -11/16. [...] Plan: a. Encourage balanced diet. b. Consider reimbursement manager referral if needed. c. Monitor appetite changes [...] go back to sleep. - Appointment with bobbin disker tomorrow to discuss sleep issues. - Encourage good sleep hygiene (consistent schedule, relaxing bedtime environment). 4. Appetite Disturbance - Reports appetite being all over the place, with periods of overeating and not eating. - Monitor appetite and eating habits. - Encourage balanced diet and regular meal schedule. - Consider referral to reimbursement manager if issues persist. 03/30/2024 Other continue current treatment as prescribed by [facility] psychiatric care provider. 1. Major Depressive Disorder [...] anxiolytic medication. b. Encourage relaxation techniques and cognitive-behavi oral therapy. 3. Sleep - Patient started to [...] Monitor overall physical health at future visits. 05/22/2024 Other continue current treatment as prescribed by primary psychiatric care provider. 1. Depression - Patient reports moderate depression (5-6/10). - Plan: a. Continue current antidepressant medication. b. Monitor for changes in symptoms. c. Encourage regular physical activity. 2. Anxiety - Patient reports high anxiety (8-9/10). - Plan: a. Continue current medications as prescribed by primary psychiatric care provider. b. Recommend relaxation techniques (deep breathing exercises, mindfulness meditation). 3. Sleep Disturbance - Patient reports getting adequate sleep. - Plan: A.Recommend good sleep hygiene practices. 4. Overeating - Patient reports good appetite and overeating. - Plan: a. Encourage balanced diet. b. Monitor for potential weight gain and related health issues. 5. Medication Management - Patient reports no new medications. - Plan: a. Continue monitoring response to current medications. 6. Physical Complaints - Patient reports no new physical complaints. - Plan: a. Continue monitoring for changes in physical health. 7. Safety Assessment - Patient denies thoughts of suicide, self-harm, or harm to others. - Patient denies hallucinations, delusions, or paranoia. - Plan: a. Continue monitoring at future appointments. 06/12/2024 Other 1. Major Depressive Disorder - PHQ-9: 10 - Patient reports depression severity of 9/10, indicating significant distress. - Patient describes depression as shitty and mentions life in general is just bad. - Continue current antidepressant medication and monitor for improvement. - Encourage continued attendance at therapy sessions to address depressive symptoms. 2. Generalized Anxiety Disorder - ANGEL-7: 14 - Patient reports anxiety severity of 8-9/10, indicating significant distress. - Continue current anxiolytic medication and monitor for improvement. - Encourage discussion of anxiety management strategies with therapist. 3. Insomnia - Patient reports approximately 7 hours of sleep per night. - Encourage maintenance of good sleep hygiene and consistent sleep schedule. - Monitor sleep duration and quality during follow-up visits. 4. Binge Eating Disorder - Recently started Topamax (100 mg, 50 mg twice a day) for binge eating. - Monitor appetite and eating habits during follow-up visits. - Encourage discussion of progress and concerns with therapist. 5. Side effects of Topamax - Patient reports flat taste due to Topamax, leading to increased energy drink consumption. - Patient mentions energy drinks seem to be helping her. - Reassure that taste changes may improve over time. - Encourage limiting energy drink intake and consider healthier alternatives for energy. 6. Suicidal ideation and risk of harm to others - Patient denies thoughts of suicide or intent to harm others. - Continue monitoring for changes in mood or behavior during follow-up visits. - Encourage reaching out to support system and healthcare providers if concerning thoughts arise. 06/22/2024 Other 1. Paranoia - Patient reports increased paranoia, concerns about people attacking her. - No changes in cannabis strain or source; obtained from dispensary. - Reduced news intake and social media posting. - Plan: a. Continue monitoring symptoms. b. Communicate with therapist. c. Consider discussing medication or therapy adjustments with Mitesh. d. pt reports paranoia is worse when smoking weed - encouraged reduction of use and discontinuation r/t effects on mental health. 2. Depression - Patient rates depression as 8/10. - Continue current treatment. - Plan: a. Continue current medication regimen. b. Monitor for symptom changes. c. Encourage engagement in therapy. d. encouraged reduction of use and discontinuation r/t effects on mental health. 3. Anxiety - Patient rates anxiety as 8/10. - Plan: a. Continue current medication regimen b. Monitor for symptom changes. c. Encourage engagement in therapy. d. Consider discussing medication/thera py adjustments with Mitesh if needed. e. encouraged reduction of use and discontinuation r/t effects on mental health. 4. Sleep - Patient reports 5-6 hours of sleep per night. - Plan: a. Encourage good sleep hygiene. b. Consider discussing medication/thera py adjustments with Mitesh to improve sleep quality. 5. Cannabis Use - Patient reports using cannabis from dispensary. - Initial relief but worsens symptoms later. - reports that it makes paranoia worse. - Plan: a. Encourage considering reduction in cannabis use. b. Discuss potential alternatives or coping strategies 07/03/2024 Other 1. Major Depressive Disorder (MDD) - PHQ-9: 8 - Patient reports depression rating of 8/10. - Continue current antidepressant medication. - Encourage regular physical activity and healthy sleep schedule. - Consider therapy referral for additional support. 2. Anxiety - ANGEL-7: 13 - Patient reports anxiety rating of 8/10. - Continue current anxiolytic medication. - Encourage relaxation techniques: deep breathing exercises and mindfulness meditation. - Consider therapy referral for additional support. 3. Paranoia - Patient reports ongoing paranoia with thoughts not based in reality - Monitor for signs of MDD with psychotic features. - Encourage journaling to document paranoia episodes and correlation with stress or depressive symptoms. - Reevaluate treatment plan if symptoms worsen or persist. 4. Cannabis Use - Patient has stopped using cannabis for two weeks. - Encourage continued abstinence to reduce anxiety and paranoia symptoms. - Consider referral to support group or substance abuse counselor if needed. 5. Sleep - Patient reports approximately 6.5 hours of sleep per night. - Encourage consistent sleep schedule and good sleep hygiene practices. 6. Appetite and Eating Habits - Patient reports steady appetite and is currently on Topamax for binge eating. - Encourage balanced diet. - Consider reimbursement manager consultation for guidance on healthy eating habits. 07/13/2024 Other 1. Major Depressive Disorder - [...] and progressive muscle relaxation. c. Refer for cognitive-behavi oral therapy (CBT) to address anxiety symptoms. 3. [...] Plan: a. Continue monitoring at follow-up appointments. 07/19/2024 Other spravato 84mg every 10 days, [...] parents, partner's health issues, and managing household responsibilities . 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 - Responsible for watching out for partner's seizures, managing household finances, and handling various administrative tasks. Plan: - Assess need for caregiver support resources. - Encourage prioritization of tasks and self-care strategies. 4. Follow-up: - Schedule a follow-up appointment in one month to assess patient's progress and medication effectiveness. 07/24/2024 Other 1. Anxiety and Depression with [...] therapy sessions with focus on impulse control. 08/02/2024 Other Major Depressive Disorder Assessment: Patient reports current depression severity of 7/10. PHQ-9 score is 11, indicating moderate depression. No current suicidal ideation or self-harm thoughts reported. Plan: - Continue current treatment as prescribed by primary psychiatric care provider, Alexei Dawson - Next scheduled esketamine administration on 08/09/2024 - Patient expressed understanding of risks, benefits, and driving restrictions related to esketamine treatment Generalized Anxiety Disorder Assessment: Patient reports current anxiety level of 6/10. ANGEL-7 score is 17, indicating severe anxiety. Plan: - Continue current treatment as prescribed by primary psychiatric care provider, Alexei Dawson The note is transcribed using speech recognition software. It is a reflection of a visit with the patient. It might have some inaccuracy, including medication names and transcribing errors, though efforts have been made to correct them. 08/09/2024 Other Treatment-resist ant depression Assessment: Patient reports depression severity as 8 out of 10, with concurrent anxiety rated at 8 out of 10. Sleep is reported as 6-7 hours on average, and appetite is described as poor. Patient denies suicidal ideation, homicidal ideation, and hallucinations. The patient is scheduled for esketamine administration, indicating ongoing management of treatment-resist ant depression. Plan: - Administer esketamine as scheduled - Provided education on esketamine risks and benefits; patient expressed understanding and denied questions - Schedule next esketamine administration for 08-14-24 - Follow-up appointment with primary psychiatric care provider (Mitesh) on 08-16-2024 - continue medication as prescribed by Mitesh The note is transcribed using speech recognition software. It is a reflection of a visit with the patient. It might have some inaccuracy, including medication names and transcribing errors, though efforts have been made to correct them. 08/14/2024 Other Major Depressive Disorder Assessment: Patient presents with ongoing major depressive disorder, currently reporting depression severity of 8/10. She is undergoing esketamine (Spravato) treatment, indicating treatment-resist ant depression. The patient expressed understanding of the risks and benefits associated with Spravato treatment. Plan: - Administer esketamine (Spravato) treatment as scheduled - Patient instructed not to drive after Spravato treatment - Follow-up appointment with primary psychiatric care provider (Mitesh) scheduled for 08/16/2024 - Next Spravato treatment scheduled for 08/21/2024 - Continue current medications as prescribed by primary psychiatric care provider - Patient educated on crisis prevention hotline number and when to seek emergency services Anxiety Assessment: Patient reports current anxiety levels at 7/10, co-occurring with major depressive disorder. Sleep Disturbance Assessment: Patient reports getting approximately 6 hours of sleep per night, which may be insufficient and potentially related to depressive symptoms. The note is transcribed using speech recognition software. It is a reflection of a visit with the patient. It might have some inaccuracy, including medication names and transcribing errors, though efforts have been made to correct them. 08/21/2024 Other Major Depressive Disorder Assessment: Patient presents with ongoing major depressive disorder, currently being treated with Spravato 84 mg. She rates her depression as 6 out of 10, indicating moderate severity. Sleep is reported as 5-6 hours per night, and appetite is described as poor, both of which are common symptoms of depression. Patient denies suicidal ideation, homicidal ideation, hallucinations, delusions, or paranoia. No medication changes or adjustments have been made recently, and the patient reports no current side effects or physical complaints. Plan: - Administer Spravato 84 mg as scheduled for treatment of major depressive disorder. - Patient expressed understanding of risks and benefits of Spravato treatment. - Instructed patient not to drive after administration of medication. - Continue medications as prescribed by primary psychiatric care provider. - Monitor for changes in depressive symptoms, sleep patterns, and appetite. Anxiety Assessment: Patient reports anxiety rated as 7 out of 10, indicating moderate to severe anxiety symptoms. This anxiety is co-occurring with the patient's major depressive disorder and may be impacting overall functioning and quality of life. Plan: - Continue to monitor anxiety symptoms and their impact on daily functioning. - Assess effectiveness of current treatment regimen in managing anxiety symptoms at follow-up appointments. The note is transcribed using speech recognition software. It is a reflection of a visit with the patient. It might have some inaccuracy, including medication names and transcribing errors, though efforts have been made to correct them. 08/28/2024 Other Patient presents for Spravato administration for treatment-resist ant depression, reporting severe depression and moderate anxiety. Treatment-resist ant depression Assessment: Patient reports current depression severity as 8-9 out of 10, indicating severe symptoms. Anxiety is rated as 6 out of 10, suggesting moderate anxiety symptoms. Patient denies suicidal ideation, homicidal ideation, hallucinations, delusions, or paranoia. Sleep is reported as 6-7 hours per night. Patient is scheduled for Spravato (esketamine) nasal spray administration, which is indicated for treatment-resist ant depression. Plan: - Administer Spravato (esketamine) nasal spray as scheduled - Patient expressed understanding of risks and benefits of treatment - Patient instructed not to drive after Spravato administration - Continue current medications as prescribed by primary psychiatric care providerAlexei - Follow-up appointment scheduled for September 06, 2024 The note is transcribed using speech recognition software. It is a reflection of a visit with the patient. It might have some inaccuracy, including medication names and transcribing errors, though efforts have been made to correct them. Plan Of Treatment Next Appt Details Provider Name:Marciano Caal, 09/06/2024 03:00:00 PM, [facility], [address], [address], Provider Name:Marciano Caal, 09/11/2024 03:00:00 PM, [facility], [address], [address], Provider Name:Marciano Caal, 09/18/2024 03:00:00 PM, [facility], [address], [address], Provider Name:Marciano Caal, 09/25/2024 03:00:00 PM, [address], [facility] [address], [place], [address], Provider Name:Marciano Caal, 10/09/2024 03:00:00 PM, [address], [address], [address], Provider Name:Marciano Caal, 10/16/2024 03:00:00 PM, [address], [address], [address], Provider Name:Marciano Caal, 10/23/2024 03:00:00 PM, [address], [address], [place], [address], Provider Name:Marciano Caal, 10/30/2024 03:00:00 PM, [address], [address], [place], [address], Provider Name:Marcaino Magaña Afua, 11/06/2024 03:00:00 PM, [address], [address], [place], [address], Insurance Providers Payer Name Payer Address Payer Phone Subscriber Number Group Number Insured Name Patient Relationship to Insured Coverage Start Date Coverage End Date [facility] Ppo [address] [place] [address] [id number] 20 [id number] [place], [facility] Self - patient is the insured [facility] Benefit [facility] [address] [place] [phone] [id number] FERNANDO VASQUEZ Spouse - patient is the [...] Spravato (84 MG Dose) 05/12/2024 84 mg Spravato (84 MG Dose) 05/22/2024 84 mg Spravato (84 MG Dose) 06/01/2024 84 mg Spravato (84 MG Dose) 06/12/2024 84 mg Spravato (84 MG Dose) 06/22/2024 84 mg Spravato (84 MG Dose) 07/03/2024 84 mg Spravato (84 MG Dose) 07/13/2024 84 mg Spravato (84 MG Dose) 07/24/2024 84 mg Spravato (84 MG Dose) 08/02/2024 84 mg Spravato (84 MG Dose) 08/09/2024 84 mg Spravato (84 MG Dose) 08/14/2024 84 mg Spravato (84 MG Dose) 08/21/2024 84 mg Spravato (84 MG Dose) 08/28/2024 84 mg Medical (General) History Medical History [...] Surgical History Surgery Date(Month/Year) Removal of gallbladder (22658) Tonsillectomy (085941349) Xcapsl ctrc rmvl cplx wo ecp (58138) Tonsilectomy/adenoids Unlisted procedure breast () Breast surgery () 01/08/2020 Other 04/18/2020 right rotator cuff 02/2024
--- OUTSIDE RECORDS SUMMARY | 2024-09-04 01:01 | XMS_ITS | Encounter Summary ---
Author Organization [facility] Healthcare Address [address] [place] [address] Care Team Providers Care Wet Crown Blocking Operator Name Role Phone Zoran Willams Unavailable Unavailable Martha Lawrence MD Primary Care Provider [phone]- [phone] Encounter Details Date Type Department Care Team (Late st Contact Info) Description 12/18/2019 Telephone [facility] Breast [facility] Advanced Medicine ([facility]) [address] [place] [address] Kathryn Penaloza, SANJANA Social History Tobacco Use Types Packs/Day Years Used Date Smoking Tobacco: Never Smokeless Tobacco: Never Alcohol Use Standard Drinks/Week Comments No 0 (1 standard drink = 0.6 oz pur e alcohol) Comments No Sex and Gender Information Value Date Recorded Sex Assigned at Not on file Legal Sex Female 10:37 AM SHIP MATE Gender Identity Not on file Sexual Orientation Not on file documented as of this encounter Plan of Treatment Not on file documented as of this encounter Visit Diagnoses Not on filedocumented in this encounter Care Teams Wet Crown Blocking Operator Relationship Specialty Start Date End Date Martha Lawrence [place] [email or web address] [address] PCP - General 02/24/19 Zoran Willams Family Medicine 05/18/18 documented as of this encounter
--- OUTSIDE RECORDS SUMMARY | 2024-09-04 01:01 | XMS_ITS | Encounter Summary ---
Author Organization [facility] Address [address] [place] [address] Phone Care Team Providers Care Belt Lacer Name Role Phone Zoran Willams Unavailable Unavailable Martha Lawrence MD Primary Care Provider [phone]- [phone] Encounter Details Date Type Department Care Team (Late st Contact Info) Description 02/17/2020 Ophth Exam [facility] Ophthalmology [address] [place] [address] 1[address] [place] [id number] Juan Mcdaniel MD [facility] [address] [place], [place] [id number] Social History Tobacco Use Types Packs/Day Years Used Date Smoking Tobacco: Never Smokeless Tobacco: Never Alcohol Use Standard Drinks/Week Comments No 0 (1 standard drink = 0.6 oz pur e alcohol) Comments No Sex and Gender Information Value Date Recorded Sex Assigned at Not on file Legal Sex Female 10:37 AM RECORDS MANAGEMENT TECHNICIAN Gender Identity Not on file Sexual [...] with poor dilation, small YAG Care Teams Belt Lacer Relationship Specialty Start Date End Date Martha Lawrence MD [address] [place] [address] PCP - General 02/24/19 Zoran Willams Family Medicine 05/18/18 documented as of this encounter
--- OUTSIDE RECORDS SUMMARY | 2024-09-04 01:01 | XMS_ITS | Clinical Summary ---
Author Organization [facility] Address [address] [place] [address] Phone Care Team Providers Care Pipelayer Name Role Phone Zoran Willams Unavailable Unavailable Martha Lawrence MD Primary Care Provider [phone]- [phone] Allergies Active Allergy Reactions Criticality Noted Date [...] TOTAL) UNDER THE SKIN EVERY 7 DAYS 9 mL 3 08/22/19 25 Active tirzepatide, weight loss, (Zepbound) 5 mg/0.5 mL pen injectorIndicat ions:Class 2 severe obesity due to excess calories with serious comorbidity and body mass index (BMI) of 36.0 to 36.9 in adult (HCC) INJECT 0.5 ML (5 MG TOTAL) UNDER THE SKIN EVERY 7 DAYS 2 mL 07/18/19 25 025 Discontinued Active Problems Problem Noted [...] to include albumin milk. Okay to include Azerbaijani yogurt Advise to look into intermittent fasting. Continue endurance and weight training Assessment & Plan (04/06/2023 4:26 PM MUSICAL INSTRUMENT MECHANIC): Counseled patient on diet and exercise Advised patient to stop added sugars, cutback on processed foods Include whole grain, fruits and vegetables, greens, lean, organic fashion chicken Cutback on red meat and processed meat Avoid animal daily products. Advised to include albumin milk. Okay to include Azerbaijani yogurt Advise to look into intermittent fasting. Continue endurance and weight training Prediabetes 04/06/2023 Assessment & Plan (11/10/2023 12:19 PM CDT): Counseled on diet and exercise Continue mounjaro 5 mg subQ weekly Assessment & Plan (04/06/2023 4:26 PM MUSICAL INSTRUMENT MECHANIC): Counseled on diet and exercise Switch Ozempic [...] exercises Assessment & Plan (04/06/2023 4:26 PM MUSICAL INSTRUMENT MECHANIC): Counseled on diet and exercise as above [...] Nasal saline spray (Simply saline, Little Remedies, [place], [place]) 2 second sprays or 2 squeezes into each nostril while looking down over the sink, do not need to sniff in. Follow up in 6 months, earlier with any ear drainage 07/06/2019 T-tubes placed in Office Nipple discharge in female 12/12/2019 Acute recurrent maxillary sinusitis 05/26/2019 Assessment & Plan (05/26/2019 10:38 AM MUSICAL INSTRUMENT MECHANIC): Take Cefdinir with a meal daily Nasal saline spray (Simply saline, Little Remedies, [place], [place]) 2 second sprays or 2 squeezes into [...] drainage Assessment & Plan (07/07/2019 3:32 PM MUSICAL INSTRUMENT MECHANIC): Bilateral myringotomy with T-tube placement in Office today Risks and complications discussed including anesthesia, bleeding, infection, hearing loss, ear tubes may fall out early, fall inwards, stay in longer than a few years, get clogged, fall out and leave a hole in the ear drum that would need to be patched, drain clear fluid. Assessment & Plan (05/26/2019 10:38 AM MUSICAL INSTRUMENT MECHANIC): Take Cefdinir with a meal daily Nasal saline spray (Simply saline, Little Remedies, [place], [place]) 2 second sprays or 2 squeezes into [...] 05/26/2019 Assessment & Plan (05/26/2019 10:38 AM MUSICAL INSTRUMENT MECHANIC): Hearing test right before follow up Left ear pain 05/26/2019 Assessment & Plan (05/26/2019 8:08 PM MUSICAL INSTRUMENT MECHANIC): Take Cefdinir with a meal daily Nasal saline spray (Simply saline, Little Remedies, [place], [place]) 2 second sprays or 2 squeezes into [...] deficiency Assessment & Plan (04/06/2023 4:26 PM MUSICAL INSTRUMENT MECHANIC): Check levels and further plans based on [...] Department Care Team Description 07/05/2024 10:30 AM MUSICAL INSTRUMENT MECHANIC Office Visit [facility] Cardiology at [address] [place] [phone] Yessi Miles MD Chest pain, atypical (Primary Dx) 06/20/2024 Telephone [facility] Diabetes and Endocrinology [address] [place] [address] Bryn Peterson MD Prior Auth (Zepbound) 06/16/2024 [facility] [address] [place] [address] Bryn Peterson MD 06/12/2024 9:15 AM MUSICAL INSTRUMENT MECHANIC Ancillary Procedure [facility] Cardiology [address] [facility] [address] [place] [phone] Abnormal EKG 06/07/2024 Telephone [facility] [address] [place] [address] Bryn Peterson MD Med Management 06/06/2024 11:15 AM MUSICAL INSTRUMENT MECHANIC Office Visit [facility] [address] [address] Bryn Peterson MD Polycystic ovarian [...] HISTORY myringotomy tubes: 1989 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 HISTORY 01dust sampler: [facility] 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 HISTORY right lens implant : Dr Barrios - [facility] 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 HISTORY 2019 breast bx R - benign 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 HISTORY milk duct removed right breast ; benign papilloma: Dr Alonso - [facility] 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 HISTORY left eye removed 02-10-12, prosthetic: Dr Fidel Hsu - [facility] 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 HISTORY 05/10/1982 - [...] Hx Other Medical Menorrhagia Hx Other Medical [place] teeth ex traction 12/18 Hx Other Medical 01-dust sampler Hx Other Medical right lens impl ant [...] on file Legal Sex Female 10:37 AM MUSICAL INSTRUMENT MECHANIC Gender Identity Not on file Sexual Orientation Not on file Obstetrics History Last Filed Vital Signs Vital Sign Reading Time Taken Comments Blood Pressure 100/76 07/05/2024 10:22 AM MUSICAL INSTRUMENT MECHANIC Pulse 80 07/05/2024 10:22 AM MUSICAL INSTRUMENT MECHANIC Temperature 36.2 C (97.2 F) 05/19/2021 11:04 AM MUSICAL INSTRUMENT MECHANIC Respiratory Rate 15 06/06/2024 11:03 AM MUSICAL INSTRUMENT MECHANIC Oxygen Saturation 98% 07/05/2024 10:22 AM MUSICAL INSTRUMENT MECHANIC Inhaled Oxygen Concentration - - Weight 106.6 kg (235 lb) 06/06/2024 11:03 AM MUSICAL INSTRUMENT MECHANIC Height 167.6 cm (5' 6 ) 07/05/2024 10:22 AM MUSICAL INSTRUMENT MECHANIC Body Mass Index 37.93 06/06/2024 11:03 AM MUSICAL INSTRUMENT MECHANIC Plan of Treatment Health Maintenance Due Date [...] Read Routine (OP Routine) 06/12/2024 11:04 AM MUSICAL INSTRUMENT MECHANIC Abnormal EKG DIAGNOSTIC MAMMOGRAM BILATERAL W RM Schedule Routine, Read Routine (OP Routine) 03/18/2021 3:39 PM MUSICAL INSTRUMENT MECHANIC Nipple discharge in female HEPATITIS C ANTIBODY Routine 12/19/2019 4:49 PM CDT from Last 3 Months or Most Recently Relevant to Health Maintenance Results * NM MPI SPECT (Rest and/or Stress) Multiple Studies (06/12/2024 11:04 AM MUSICAL INSTRUMENT MECHANIC) LV EF % CONS SCIMAGE Anatomical Region Laterality Modality Body N/A Nuclear Medicine 06/12/2024 9:16 AM MUSICAL INSTRUMENT MECHANIC Narrative 06/12/2024 4:24 PM MUSICAL INSTRUMENT MECHANIC [facility] Cardiology [address] [facility] [address] [address] [address] [facility] [address], [place] [address] P:[phone] P:[phone] MPI Imaging Report Patient Name: CESARIO HASSAN V : 1980 Study Date: 06/12/2024 9:16:32 AM Gender: F Tech: [facility] Location: [facility] Provider: MARTHA LAWRENCE Height(Cm): 167.6 BSA: Weight(Kg): 103.4 BMI: 36.81 Order Provider: MARTHA LAWRENCE - PHYSICIAN: Referring Physician: Dr. Lawrence. HCG Physician: Yessi Miles M.D., CheryleCCarlitoCCarlito Interpreting Physician: Gregory Rodríguez M.D.,CheryleCJessy Stress Supervision: Gregory Rodríguez M.D.,CheryleCNickolas. PROCEDURES: Pharmacologic [...] calculated. Electronically Signed By: Gregory Rodríguez MD, [facility] 06/12/2024 4:23:21 PM MUSICAL INSTRUMENT MECHANIC Electronically Signed By: Gregory Rodríguez MD, [facility] 06/12/2024 4:23:21 PM MUSICAL INSTRUMENT MECHANIC Procedure Note Gregory Rodríguez MD - 06/12/2024 [facility] Cardiology [address] [facility] [address], [place] [address] [address] [facility] [address], [place], [place] [address] P:[phone] P:[phone] MPI Imaging Report Patient Name: CESARIO HASSAN V : 1980 Study Date: 06/12/2024 9:16:32 AM Gender: F Tech: [facility] Location: [facility] Provider: MARTHA LAWRENCE Height(Cm): 167.6 BSA: Weight(Kg): 103.4 BMI: 36.81 Order Provider: MARTHA LAWRENCE - PHYSICIAN: Referring Physician: Dr. Lawrence. HCG Physician: Yessi Miles M.D., FCarlitoA.CCarlitoC. Interpreting Physician: Gregory Rodríguez M.D.,FCarlitoA.CCarlitoCCarlito Stress Supervision: Gregory Rodríguez M.D.,FCarlitoA.CCarlitoCCarlito PROCEDURES: Pharmacologic SPECT Report: Myocardial perfusion imaging [...] calculated. Electronically Signed By: Gregory Rodríguez MD, [facility] 06/12/2024 4:23:21 PM MUSICAL INSTRUMENT MECHANIC Electronically Signed By: Gregory Rodríguez MD, [facility] 06/12/2024 4:23:21 PM MUSICAL INSTRUMENT MECHANIC us Martha Lawrence MD IMG NM PROCEDURES Final Re sult * Diagnostic Mammogram Bilateral W Rm (03/18/2021 3:39 PM MUSICAL INSTRUMENT MECHANIC) Anatomical Region Laterality Modality Breast Bilateral Mammography 03/18/2021 4:19 PM MUSICAL INSTRUMENT MECHANIC Impressions 03/18/2021 4:52 PM MUSICAL INSTRUMENT MECHANIC 1. Two intraductal masses and/or debris within [...] Meryl Olguin M.D. Narrative 03/18/2021 4:52 PM MUSICAL INSTRUMENT MECHANIC EXAMINATION: BILATERAL DIGITAL DIAGNOSTIC MAMMOGRAM INCLUDING [...] Hep C Ab Nonreactive Nonreactive [facility] ([place]) Comment: Interpretive Data Nonreactive: Antibodies to HCV [...] revised on 2019. Testing performed by: , [address] [place] [address], [place]., [address] Blood specimen (specimen) 12/19/2019 4:49 PM CDT 12/20/2019 9:45 AM CDT Kathryn Rosas MD LAB MICROBIOLOGY - GENERAL O RDERABLES Edited Result - Final [facility] ([facility]) [address] [facility] [place] [address] from Last 3 Months or Most Recently Relevant to Health Maintenance Insurance 1DayLater OOS Member Subscriber Plan / Payer (Ef fective 2013-Present) Name:BestCesario V Relation to Subscriber:Self Name:Best Cesario Samaniego Payer ID:[id number] (NAIC) Type:Pongo Resume Address: [address] ALLEGIANCE 1DayLater OOS [employer] AL[employer]GIANCE Care Teams Pipelayer Relationship Specialty Start Date End Date Martha Lawrence MD [address] [place] [address] PCP - General 02/24/19 Zoran Willams Family Medicine 05/18/18
--- OUTSIDE RECORDS SUMMARY | 2024-09-04 01:01 | XMS_ITS | Referral Summary ---
Author Organization [facility] Address [address] [place] [address] Phone Care Team Providers Care Fish Receiver Name Role Phone Zoarn Willams Unavailable Unavailable Martha Lawrence MD Primary Care Provider [phone] Encounters Date Type Department Care Team Description 07/05/2024 10:30 AM HARBOR POLICE LIEUTENANT Office Visit [facility] Cardiology at [address] [place] [address] Yessi Miles MD Chest pain, atypical (Primary Dx) 06/20/2024 Telephone [facility] Diabetes and Endocrinology [address] [place] [phone] Bryn Peterson MD Prior Auth (Zepbound) 06/16/2024 Telephone [facility] [address] [place] [phone] Bryn Peterson MD 06/12/2024 9:15 AM HARBOR POLICE LIEUTENANT Ancillary Procedure [facility] Cardiology [address] [facility] [address] [place] [address] Abnormal EKG 06/07/2024 Telephone [facility] [address], [place] [address] Bryn Peterson MD Med Management 06/06/2024 11:15 AM HARBOR POLICE LIEUTENANT Office Visit [facility] [place] [id number] [place] [phone] Bryn Peterson MD Polycystic ovarian syndrome [...] to include albumin milk. Okay to include Kenyan yogurt Advise to look into intermittent fasting. Continue endurance and weight training Assessment & Plan (04/06/2023 4:26 PM HARBOR POLICE LIEUTENANT): Counseled patient on diet and exercise Advised patient to stop added sugars, cutback on processed foods Include whole grain, fruits and vegetables, greens, lean, organic fashion chicken Cutback on red meat and processed meat Avoid animal daily products. Advised to include albumin milk. Okay to include Kenyan yogurt Advise to look into intermittent fasting. Continue endurance and weight training Prediabetes 04/06/2023 Assessment & Plan (11/10/2023 12:19 PM CDT): Counseled on diet and exercise Continue mounjaro 5 mg subQ weekly Assessment & Plan (04/06/2023 4:26 PM HARBOR POLICE LIEUTENANT): Counseled on diet and exercise Switch Ozempic [...] exercises Assessment & Plan (04/06/2023 4:26 PM HARBOR POLICE LIEUTENANT): Counseled on diet and exercise as above [...] Nasal saline spray (Simply saline, Little Remedies, [place], [place]) 2 second sprays or 2 squeezes into each nostril while looking down over the sink, do not need to sniff in. Follow up in 6 months, earlier with any ear drainage 07/06/2019 T-tubes placed in Office Nipple discharge in female 12/12/2019 Acute recurrent maxillary sinusitis 05/26/2019 Assessment & Plan (05/26/2019 10:38 AM HARBOR POLICE LIEUTENANT): Take Cefdinir with a meal daily Nasal saline spray (Simply saline, Little Remedies, [place], [place]) 2 second sprays or 2 squeezes into [...] drainage Assessment & Plan (07/07/2019 3:32 PM HARBOR POLICE LIEUTENANT): Bilateral myringotomy with T-tube placement in Office today Risks and complications discussed including anesthesia, bleeding, infection, hearing loss, ear tubes may fall out early, fall inwards, stay in longer than a few years, get clogged, fall out and leave a hole in the ear drum that would need to be patched, drain clear fluid. Assessment & Plan (05/26/2019 10:38 AM HARBOR POLICE LIEUTENANT): Take Cefdinir with a meal daily Nasal saline spray (Simply saline, Little Remedies, [place], [place]) 2 second sprays or 2 squeezes into [...] 05/26/2019 Assessment & Plan (05/26/2019 10:38 AM HARBOR POLICE LIEUTENANT): Hearing test right before follow up Left ear pain 05/26/2019 Assessment & Plan (05/26/2019 8:08 PM HARBOR POLICE LIEUTENANT): Take Cefdinir with a meal daily Nasal saline spray (Simply saline, Little Remedies, [place], [place]) 2 second sprays or 2 squeezes into [...] deficiency Assessment & Plan (04/06/2023 4:26 PM HARBOR POLICE LIEUTENANT): Check levels and further plans based on [...] on file Legal Sex Female 10:37 AM HARBOR POLICE LIEUTENANT Gender Identity Not on file Sexual Orientation Not on file Last Filed Vital Signs Vital Sign Reading Time Taken Comments Blood Pressure 100/76 07/05/2024 10:22 AM HARBOR POLICE LIEUTENANT Pulse 80 07/05/2024 10:22 AM HARBOR POLICE LIEUTENANT Temperature 36.2 C (97.2 F) 05/19/2021 11:04 AM HARBOR POLICE LIEUTENANT Respiratory Rate 15 06/06/2024 11:03 AM HARBOR POLICE LIEUTENANT Oxygen Saturation 98% 07/05/2024 10:22 AM HARBOR POLICE LIEUTENANT Inhaled Oxygen Concentration - - Weight 106.6 kg (235 lb) 06/06/2024 11:03 AM HARBOR POLICE LIEUTENANT Height 167.6 cm (5' 6 ) 07/05/2024 10:22 AM HARBOR POLICE LIEUTENANT Body Mass Index 37.93 06/06/2024 11:03 AM HARBOR POLICE LIEUTENANT Plan of Treatment Not on file Procedures Procedure Name Priority Date/Time Associated Diagnosis Comments NM MPI SPECT (REST AND/OR STRESS) MULTIPLE STUDIES Schedule Routine, Read Routine (OP Routine) 06/12/2024 11:04 AM HARBOR POLICE LIEUTENANT Abnormal EKG DIAGNOSTIC MAMMOGRAM BILATERAL W RM Schedule Routine, Read Routine (OP Routine) 03/18/2021 3:39 PM HARBOR POLICE LIEUTENANT Nipple discharge in female HEPATITIS C ANTIBODY Routine 12/19/2019 4:49 PM CDT from Last 3 Months or Most Recently Relevant to Health Maintenance Results * NM MPI SPECT (Rest and/or Stress) Multiple Studies (06/12/2024 11:04 AM HARBOR POLICE LIEUTENANT) LV EF % CONS SCIMAGE Anatomical Region Laterality Modality Body N/A Nuclear Medicine 06/12/2024 9:16 AM HARBOR POLICE LIEUTENANT Narrative 06/12/2024 4:24 PM HARBOR POLICE LIEUTENANT [facility] Cardiology [address] [facility] [address] [address] [address] [facility] [address], [place] [address] P:[phone] P:[phone] MPI Imaging Report Patient Name: CESARIO HASSAN V : 1980 Study Date: 06/12/2024 9:16:32 AM Gender: F Tech: PIPO SR Location: [place] Ref Provider: MARTHA LAWRENCE Height(Cm): 167.6 BSA: Weight(Kg): 103.4 BMI: 36.81 Order Provider: MARTHA LAWRENCE - PHYSICIAN: Referring Physician: Dr. Lawrence. HCG Physician: Yessi Miles M.D., Juan Interpreting [...] calculated. Electronically Signed By: Gregory Rodríguez MD, [facility] 06/12/2024 4:23:21 PM HARBOR POLICE LIEUTENANT Electronically Signed By: Gregory Rodríguez MD, [facility] 06/12/2024 4:23:21 PM HARBOR POLICE LIEUTENANT Procedure Note Gregory Rodríguez MD - 06/12/2024 [facility] Cardiology [address] [facility] [address], [place] [address] [address] [facility] [address], [place] [address] P:[phone] P:[phone] MPI Imaging Report Patient Name: CESARIO HASSAN V : 1980 Study Date: 06/12/2024 9:16:32 AM Gender: F [facility] Provider: MARTHA LAWRENCE Height(Cm): 167.6 BSA: Weight(Kg): 103.4 BMI: 36.81 Order Provider: MARTHA LAWRENCE - PHYSICIAN: Referring Physician: Dr. Lawrence. HCG Physician: Yessi Miles M.D., F.A.C.C. Interpreting [...] calculated. Electronically Signed By: Gregory Rodríguez MD, [facility] 06/12/2024 4:23:21 PM HARBOR POLICE LIEUTENANT Electronically Signed By: Gregory Rodríguez MD, [facility] 06/12/2024 4:23:21 PM HARBOR POLICE LIEUTENANT Martha Lawrence MD IM NM PROCEDURES Final Re sult * Diagnostic Mammogram Bilateral W Rm (03/18/2021 3:39 PM HARBOR POLICE LIEUTENANT) Anatomical Region Laterality Modality Breast Bilateral Mammography 03/18/2021 4:19 PM HARBOR POLICE LIEUTENANT Impressions 03/18/2021 4:52 PM HARBOR POLICE LIEUTENANT 1. Two intraductal masses and/or debris within [...] Meryl Olguin M.D. Narrative 03/18/2021 4:52 PM HARBOR POLICE LIEUTENANT EXAMINATION: BILATERAL DIGITAL DIAGNOSTIC MAMMOGRAM INCLUDING CAD [...] revised on 2019. Testing performed by: [facility], [address] [place] [address]., [id number] Blood specimen (specimen) 12/19/2019 4:49 PM CDT 12/20/2019 9:45 AM CDT us Kathryn Rosas MD LAB MICROBIOLOGY - GENERAL O RDERABLES Edited Result - Final LILIAN VALDES (BOOKER) [address] [facility] Department [place] [address] from Last 3 Months or Most Recently Relevant to Health Maintenance Insurance [employer] Care Teams Fish Receiver Relationship Specialty Start Date End Date Martha Lawrence MD [address] [facility] [place] [address] PCP - General 02/24/19 Zoran Willams Family Medicine 05/18/18
--- OUTSIDE RECORDS SUMMARY | 2024-09-04 01:01 | XMS_ITS | Clinical Summary ---
Author Organization [facility] Address [address] [place] [address] Care Team Providers Care Car Dispatcher Name Role Phone Martha Lawrence MD Primary Care Provider [phone] Kathy Corley APRN-JUN Unavailable [phone] Gibran David Unavailable Source Comments [facility],non-owned Affiliates and Associated Physician Practices is amultiple site organization consisting of ambulatory clinics and hospital sitesin [place], [place], [place] and [place]. This disclosure is being madepursuant to the Care Everywhere program and may not contain all information available regarding this patient. Last updated 18.[facility] Allergies Active Allergy Reactions Criticality Noted Date Comments Oxycodone-Acetaminophen Diarrhea,Nausea and/or Vomiting,Vomiting Low 03/26/2020 Penicillins Urticaria,Rash,Skin Reactions Medium 01/09 Sulfa Drugs Urticaria,Rash,Itching Medium 04/29/2018 Sulfacetamide Urticaria,Rash,Eye Discomfort,Eye Itching Medium 03/26/2020 Medications * This document contains information received from the source organization and may not represent a complete record from that organization. * Be aware that medications may not be up to date on this document. Alwaysverify current medications with the patient. albuterol HFA (PROVENTIL;VENTOL IN;PROAIR) 108 (90 Base) MCG/ACT inhalerIndication s:Asthma Inhale 2 (two) puffs by mouth every 6 hours as needed for Shortness of Breath or Wheezing Reasons: Asthma 1 Inhaler 1 09/10/19 21 Active latanoprost (XALATAN) 0.005 % ophthalmic solutionIndicatio ns:Open-Angle Glaucoma Instill 1 (one) drop into right eye at bedtime 7.5 mL 4 06/26/19 22 Active montelukast (Singulair) 10 MG tabletIndications :Asthma Take 1 (one) tablet by mouth at bedtime Reasons: Asthma 30 tablet 1 04/03/20 22 Active lamoTRIgine (LaMICtal) 100 MG tabletIndications :Mood Disorder Take 1 (one) tablet by mouth at bedtime Reasons: Mood Disorder 30 tablet 1 04/03/20 22 Active atomoxetine (Strattera) 60 MG capsuleIndication s:Attention Deficit Hyperactivity Disorder Take 1 (one) capsule by mouth once daily Reasons: Attention Deficit Hyperactivity Disorder 30 capsule 1 04/04/20 22 Active nebivolol (Bystolic) 10 MG tablet Take 1 (one) tablet by mouth once daily Active buPROPion XL 24hr (Wellbutrin-XL) 150 MG tablet Take 1 (one) tablet by mouth every morning Active Linzess 72 MCG capsule Take 1 (one) capsule by mouth once daily 06/03/19 24 Active tirzepatide (Mounjaro) 5 MG/0.5ML injection Inject 5 (five) mg subcutaneously every 7 days 2 mL 5 04/06/20 23 Active Vraylar 3 MG capsule Take 1 (one) capsule by mouth once daily 05/20/19 24 Active escitalopram (Lexapro) 20 MG tablet Take 1 (one) tablet by mouth every morning Active Spravato, 84 MG Dose, 28 MG/DEVICE nasal spray 3 sprays in each nostril Nasally every 10 days for 1 days 06/12/19 25 Active Spravato, 56 MG Dose, nasal spray 07/23/19 24 Active eszopiclone (Lunesta) 2 MG tablet TAKE 1 TABLET BY MOUTH EVERY DAY AT BEDTIME NEEDED FOR 30 DAYS 07/20/19 24 Active HYDROcodone-aceta minophen ([place]) 7.5-325 MG tablet Take 1 (one) tablet by mouth every 4 hours as needed pain 02/23/20 24 Active Zepbound 5 MG/0.5ML injection Inject 5 (five) mg subcutaneously every 7 days 06/16/19 25 Active zaleplon (Sonata) 10 MG capsule 1 capsule at bedtime Oral Once a day for 30 days As needed Active topiramate (Topamax) 50 MG tablet TAKE 1 TABLET BY MOUTH TWICE A DAY Oral for 90 Days 06/06/19 25 Active Active Problems Problem Noted Date Diagnosed [...] Nasal saline spray (Simply saline, Little Remedies, [place], [place]) 2 second sprays or 2 squeezes into [...] Nasal saline spray (Simply saline, Little Remedies, [place], [place]) 2 second sprays or 2 squeezes into [...] Nasal saline spray (Simply saline, Little Remedies, [place], [place]) 2 second sprays or 2 squeezes into [...] Department Care Team Description 06/23/2024 2:00 PM TELERADIOLOGIST Office Visit [facility] - Ophthalmology [address] [place] [phone] Fidel Moss MD Secondary glaucoma, mild stage, right (Primary Dx) 06/23/2024 1:15 PM TELERADIOLOGIST Clinical Support [facility] - Ophthalmology [address] [place] [phone] Fidel Moss MD Secondary glaucoma, mild stage, right (Primary Dx) 06/23/2024 Travel 06/07/2024 1:00 PM TELERADIOLOGIST Office Visit [facility] - Ophthalmology [address] [place] [phone] Chrystal Roa MD Status post vitrectomy surgery for vitreous floaters, right eye 04/18/2020 (Primary Dx); History of vitrectomy; Anophthalmos of left eye; Pseudophakia; 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 - Ophthalmology [facility] [place] [address] Chrystal Roa MD Status post eye surgery (Primary Dx); History of vitrectomy 06/07/2024 Travel from Last 3 Months Immunizations Immunization Administration Dates Next Due INFLUENZA VACCINE, TRIV. (AF LURIA, FLUZONE TRIVALENT; 6MO+) (IIV3) 03/11/2011 INFLUENZA VACCINE 03/22/2020 INFLUENZA VACCINE, QUADR. (A FLURIA, FLUZONE QUADRIVALENT; 6MO+) (IIV4) 05/12/2013 INFLUENZA VACCINE, QUADR. (F LUZONE; FLULAVAL; FLUARIX; AFLURIA QUADRIVALENT; 6MO+), 0.5 ML (IIV4) 04/01/2022 INFLUENZA VACCINE, RECOM-KSIER, TRIV. (FLUBLOCK TRIVALENT; 18Y+) (RIV3) 05/14/2014 TDAP [...] Date Recorded PHQ2 TOTAL SCORE 6 03/31/2022 Comments No Sex and Gender Information Value Date Recorded Sex Assigned at Not on file Legal Sex Female 9:28 AM CDT Gender Identity Not on file Sexual Orientation [...] 115.7 kg (255 lb) 04/21/2022 12:37 PM TELERADIOLOGIST Height 165.1 cm (5' 5 ) 04/21/2022 12:37 PM TELERADIOLOGIST Body Mass Index 42.43 04/21/2022 12:37 PM TELERADIOLOGIST Plan of Treatment Upcoming Encounters Date Type Department Care Team (Late st Contact Info) Description 12/19/2024 1:40 PM CDT Office Visit [facility] - Ophthalmology [address] [place] [phone] Fidel Moss MD [address] [place] [phone] 06/06/2025 1:00 PM TELERADIOLOGIST Office Visit [facility] - Ophthalmology [address] [place] [phone] Chrystal Roa MD [address] [place] [address] [place] [phone] Health Maintenance Due Date Last Done Comments PAP SMEAR 1980 HIV SCREENING 01/13/1996 HEPATITIS C SCREENING 01/08/1999 HEPATITIS B VACCINE (1 of 3 - 19+ 3-dose series) 01/13/2000 DTAP/TDAP/TD VACCINES (2 - Td or Tdap) 07/24/2018 07/24/2008 MAMMOGRAM 03/18/2023 03/18/2021, 12/09, 12/12/2019, Additional history exists COVID-19 VACCINE ( season) 2024 DEPRESSION SCREENING 05/10/2024 04/29/2022, 04/27/2022, 04/21/2022, Additional history exists INFLUENZA VACCINE (Season Ended) 2025 04/01/2022, 02/11/2021, 03/22/2020, Additional history exists LIPID TESTING [...] this topic Medical Devices Implanted Type Area Rubber Liner Device Identifier Shelf Expiration Date Model / Serial / Lot Drain Glcm Thk.9mm Blnt Tpr Ahmed Flxb Implanted:Qty: 1 on 07/03/2020 by Franco Martinez MD at [facility] 04/30/2022 FP7 / / [id number] Graft Tissue Ttpl Ioptch Sclr .8x.5cm - [id number] Implanted:Qty: 1 on 07/03/2020 by Franco Martinez MD at [facility] [employer] 03/09/2025 [id number] / / [id number] Procedures Procedure Name Priority Date/Time Associated Diagnosis Comments RETINAL ANALYSIS OCT Routine 06/07/2024 12:43 PM TELERADIOLOGIST History of vitrectomy Status post eye surgery LIPID PROFILE AM Draw 04/01/2022 6:23 AM TELERADIOLOGIST from Last 3 Months or Most Recently Relevant to Health Maintenance Results * RETINAL ANALYSIS OCT (06/07/2024 12:43 PM TELERADIOLOGIST) Anatomical Region Laterality Modality Head External-Camera Photography Narrative 06/12/2024 12:19 AM TELERADIOLOGIST Images from the original result were not included. OCT Macula OD: Normal retina crosssection with preservation of fovea, clivus, and cellular lamina OS: Prosthesis OD (top 06/07/23, bottom 06/07/2024) Chrystal Roa MD OPHTHALMOLOGY SCHED ORD W PACS Final Result * (ABNORMAL) LIPID PROFILE (04/01/2022 6:23 AM TELERADIOLOGIST) Cholesterol 154 <200 mg/dL 04/01/2022 6:48 AM TELERADIOLOGIST [facility] Triglycerides 133 <150 mg/dL 04/01/2022 6:48 AM TELERADIOLOGIST [facility] HDL Cholesterol 35(L) >40 mg/dL 6:48 AM TELERADIOLOGIST [facility] LDL Calculated 92 <130 mg/dL 04/01/2022 6:48 AM TELERADIOLOGIST [facility] VLDL Calculated 27 <=30 mg/dL 2 6:48 AM TELERADIOLOGIST [facility] Chol HDL Ratio 4.4 <4.5 04/01/2022 6:48 AM TELERADIOLOGIST [facility] LDL/HDL Ratio 2.6 <5.0 04/01/2022 6:48 AM [facility] Blood BLOOD SPECIMEN / Unknown Venipuncture / Unknown 04/01/2022 6:23 AM TELERADIOLOGIST 04/01/2022 6:29 AM TELERADIOLOGIST Shade Reddy MD LAB - CHEMISTRY ORDERABLES Fin al Result [facility] [address] [place] [address] from Last 3 Months or Most Recently Relevant to Health Maintenance Insurance [employer] ANTHEM [facility] * Guarantor: CESARIO JEWELL Account Type Relation to Patient Date of Phone Billing Address Personal/Family Spouse [address] Advance Directives * Full Code (Latest Code Status on File) Date Activated Date Inactivated Comments 03/31/2022 8:46 PM 04/03/2022 5:55 PM * Full Code Date Activated Date Inactivated Comments 03/31/2022 6:15 PM 03/31/2022 7:59 PM * Full Code Date Activated Date Inactivated Comments 09/05/2020 11:08 PM 09/09/2020 5:05 PM Care Teams Car Dispatcher Relationship Specialty Start Date End Date Martha Lawrence MD PCP - General 03/21/20 Kathy Corley, FLORIST SUPPLIES SALESPERSON-WASTEWATER SUPERVISOR [address] [facility] [address] [place] [address] Nurse Practitioner Ophthalmology 12/14/22 Gibran David [address] [facility] [address] [place] [address] 12/14/22
--- OUTSIDE RECORDS SUMMARY | 2024-09-04 01:01 | XMS_ITS | Clinical Summary ---
Author Organization [facility] Address [address] [place] [phone] Phone Care Team Providers Care Strip Stamp Straightener Name Role Phone Martha Lawrence MD Primary Care Provider [phone] Allergies Active Allergy Reactions Criticality Noted Date Comments Oxycodone-Acetaminophen Diarrhea,Nausea And Vomiting,nausea,Vomi ting Low 03/26/2020 Penicillins Hives,Rash High 01/10/2016 Povidone-Iodine Medium 09/05/2020 Other reaction(s): Eye Itching, Eye Redness Sulfa Antibiotics Itching,Other (see comments),Rash Medium 04/29/2018 Other reaction(s): Eye Discomfort, Eye Itching, Urticaria Reaction: Conjunctivitis, Medications buPROPion XL (WELLBUTRIN XL) 150 MG 24 hr tablet 1 Active spironolactone (ALDACTONE) 50 MG tablet 1 Active Ozempic, 1 MG/DOSE, 4 MG/3ML solution pen-injector 1 Active traZODone (DESYREL) 150 MG tablet 1 Active montelukast (SINGULAIR) 10 MG tablet 1 Active lamoTRIgine (LaMICtal) 100 MG tablet 1 Active Esketamine HCl, 56 MG Dose, (Spravato, 56 MG Dose,) 28 MG/DEVICE solution therapy Spravato 56 mg (28 mg x 2) nasal spray Active Bystolic 5 MG tablet 1 Active clonazePAM (KlonoPIN) 0.5 MG tablet clonazepam 0.5 mg tablet TAKE 1 TABLET BY MOUTH EVERY DAY NEEDED Active ALPRAZolam (XANAX) 0.5 MG tablet alprazolam 0.5 mg tablet TAKE 1 TABLET BY MOUTH TWO TIMES DAILY NEEDED FOR ANXIETY 1 Active fluticasone (FLONASE) 50 MCG/ACT nasal spray 1 Active atomoxetine (STRATTERA) 25 MG capsule Take by mouth 1 (one) time each day 2 Active ARIPiprazole (ABILIFY) 10 MG tablet 1 Active escitalopram (LEXAPRO) 20 MG tablet Take 20 mg by mouth 1 (one) time each day 2 Active Combigan 0.2-0.5 % ophthalmic solution INSTILL 1 DROP INTO RIGHT EYE 2 TIMES DAILY. 2 Active Active Problems Problem Noted Date Diagnosed [...] Iron deficiency anemia Iron deficiency anemia Immunizations Immunization Administration Dates Next Due Influenza Split 05/12/2013 [...] = 0.6 oz pur e alcohol) rare Comments Unknown Sex and Gender Information Value Date Recorded Sex Assigned at Not on file Legal Sex Female 10:58 AM MDT Gender Identity Not on file Sexual Orientation Not on file Last Filed Vital Signs Vital Sign Reading Time Taken Comments Blood Pressure 122/72 07/07/2021 3:09 PM PATIENT PORTAL REPRESENTATIVE Pulse 72 07/07/2021 3:09 PM PATIENT PORTAL REPRESENTATIVE Temperature 36.5 C (97.7 F) 07/07/2021 3:09 PM PATIENT PORTAL REPRESENTATIVE Respiratory Rate - - Oxygen Saturation - - Inhaled Oxygen Concentration - - Weight 113 kg (249 lb) 07/07/2021 3:09 PM PATIENT PORTAL REPRESENTATIVE Height 165.1 cm (5' 5 ) 07/07/2021 3:09 PM PATIENT PORTAL REPRESENTATIVE Body Mass Index 41.44 07/07/2021 3:09 PM PATIENT PORTAL REPRESENTATIVE Plan of Treatment Health Maintenance Due Date Last Done Comments Influenza Vaccine (Season Ended) 2025 02/11/2021, 03/22/2020, 05/12/2013, Additional history exists Insurance [facility] Care Teams Strip Stamp Straightener Relationship Specialty Start Date End Date Martha Lawrence MD [address] [facility] [place] [address] PCP - General Internal Medicine 02/24/21
--- OUTSIDE RECORDS SUMMARY | 2024-09-04 01:01 | XMS_ITS | Data Portability ---
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 Plan of Treatment Reminders Order Date Submit Date Provider Last Modified By Organization Details Last Modified Time Details Appointments None recorded. Lab cortisol, am, serum [address] (Lab), [address] [place] [address], [address], 3 11:22:48 dexamethaso ne, serum [address] (Lab), [address] [place] [address], [address], 3 11:22:48 CMP, serum or plasma [address] (Lab), [address] [place] [address], [address], 3 14:48:33 HbA1c (hemoglobin A1c), blood [address] (Lab), [address] [place] [address], [address], 3 14:48:33 insulin, serum [address] (Lab), [address] [place] [address], [address], 3 14:48:33 cortisol, am, serum [address] [place] [address] (Lab), [address] [facility] [address], [place], [address], 3 12:48:07 dexamethaso ne, serum 2022 023 [facility] (Lab), [address] [facility] [address], [place], [address], 3 08:23:05 TSH + free T4, serum [address] (Lab), [facility] [address], [place], [address], 3 14:48:33 Referral None recorded. Procedures None recorded. Surgeries None recorded. Imaging None recorded. Medication Orders dexamethaso ne 1 mg tablet 2022 023 [id number] [address] [place], [address], 3 11:22:44 Ozempic 0.25 mg or 0.5 mg (2 mg/3 mL) subcutaneou s pen injector 2022 023 [id number], [address] [place], [address], 3 11:20:21 spironolact one 50 mg tablet 2022 023 [id number] [address] [place], [address], 3 11:21:16 Rybelsus 7 mg tablet 2022 [address]23 [address] [place], [address], 3 11:20:32 dexamethaso ne 1 mg tablet 2022 023 [id number], [address] [place], [address], 3 14:47:07 Patient TargetsNo targets recorded. Patient InstructionsNo instructions recorded. Reason for Referral None Reported. Results Created Date Observation Date Name Description Value Unit Range Abnormal Flag Note LastModifiedBy Organization Detail LastModifiedTime Result Notes None recorded. Problems Name Problem SNOMED Code Status Onset Date Resolution Date Notes Provider Name and Address Organization Details Recorded Time Polycystic ovary syndrome 905695607 Active 2021 Not Available [facility] 3 06:16:14 Hypertriglyce ridemia 566974363 Active 2021 Not Available [facility] 3 06:16:14 Hypertensive disorder 45462795 Active 2018 Not Available [facility] 3 06:16:14 Anxiety 44127787 Active 2018 Not Available [facility] 3 06:16:14 Liver enzymes level above reference range 207353826 Active 2021 Not Available [facility] 3 06:16:14 Prediabetes 237370584 Active 2020 Not Available [facility] 3 06:16:14 Weight gain 5226537 Active 2022 Aylin Nguyen MD [address] [place] [address], [id number] , [facility] [email or web address] [facility] 3 11:22:06 Problem Notes None recorded. Procedures Surgical History Date Name Laterality Status Provider Name and Address Organization Details Recorded Time Eye completed Not Available [facility] 05/2022 06:11:09 laparoscopy completed Not Available [facility] 07/08/2022 06:11:09 Eye Surgery completed Not Available [facility] 07/08/2022 06:11:09 Unlisted procedure breast completed Not Available [facility] 07/08/2022 06:11:09 Ear Tube Placement completed Not Available [facility] 07/08/2022 06:11:09 cholecystectomy completed Not Available [facility] 07/08/2022 06:11:09 Imaging Results None recorded. Procedure Notes None recorded. Medical Equipment None Reported. Allergies Allergen ID Allergen Name Allergen Category Reaction Reaction Severity Criticality Documentation Date Start Date Code Code System Note Provider Name and Address Organization Details Recorded Time 42101 Substance with sulfonami de structure and antibacte rial mechanism of action (substanc e) medicatio n Not available Not available Not available 07/08/2022 62753 8003 SNOMED Sulfa eye drops Not Available [facility] 3 06:22:01 92403 Product containin g penicilli n (product) medicatio n Not available Not available Not available 07/08/2022 83334 8001 SNOMED Not Available [facility] 3 06:22:01 Medications Name Sig [...] TABLET BY MOUTH ONCE DAILY NEEDED (PATEL N.) REASONS MOOD DISORDER 12/02 completed Not Available [...] % 99 % 90 /min 98.4 [degF] 093799. 39 g 120 mm[Hg] 80 mm[Hg] Not Available [facility] 3 06:13:53 Date Recorded Body height Provider Name an d Address Organization Details Last Updated DateTime 12/02/2021 162.56 cm Not Available [facility] 3 06:13:53 Date Recorded Body height Body mass index (BMI) Body weight Body temperature Heart rate Systolic blood pressure Diastolic blood pressure Provider Name and Address Organization Details Last Updated DateTime 3 162.56 cm 45 kg/m2 794980. 2 g 97.9 [degF] 88 /min 126 mm[Hg] 80 mm[Hg] Antonia Lucia, DIRECTOR [employer] [place] [facility] 3 14:23:38 Date Recorded Body height Body mass index (BMI) Body weight Heart rate Body temperature Systolic blood pressure Diastolic blood pressure Provider Name and Address Organization Details Last Updated DateTime 3 162.56 cm 43.2 kg/m2 835523. 84 g 73 /min 98.7 [degF] 190 mm[Hg] 128 mm[Hg] Gabby Mendoza MA [place] [facility] 3 11:04:27 Social History Question Answer Notes LastModified by Organizat ion Details LastModified Time Tobacco Smoking Status Never Smoker Not Available [facility] 07/08/2022 06:10:12 What Is Your Level Of Alcohol Consumption? None [id number] Information not available 07/08/2022 What Is Your Level Of Caffeine Consumption? Moderate [id number] Information not available 07/08/2022 Which Illicit Or Recreational Drugs Have You Used? Pot [id number] Information not available 07/08/2022 What Is The Highest Grade Or Level Of School You Have Completed Or The Highest Degree You Have Received? 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 [id number] Information not available 07/08/2022 Do You Use Any Illicit Or Recreational Drugs? Yes [id number] Information not available 07/08/2022 Do You Or Have You Ever Used Any Other Forms Of Tobacco Or Nicotine? No [id number] Information not available 07/08/2022 Sex: Unknown Functional Status None recorded. Mental Status None recorded. Family History Relationship Description Onset Age of this Age Resolved Age Notes LastModified by Organization Details LastModified Time Sister Diabetes mellitus [email or web address] Not available 07/17 14:27:58 Medical History Condition Response DEPRESSION (INCLUDING POST ) Y HYPERTENSION Y GLAUCOMA Y Gynecological HistoryNo gynecological history recorded. Obstetrics History GPAL:G 0 P 0 0 0 0 Past Encounters Encounter ID Performer Location Encounter Start Date Encounter Closed Date Diagnosis/Indication Diagnosis SNOMED-CT Code Diagnosis ICD10 Code Diagnosis Note [id number] [facility] [address] [place] [address] 12/24/2020 00:00:00 12/24/2020 21:39:34 [id number] [facility] [address] [place] [address] 12/02/2021 00:00:00 12/02/2021 17:02:29 [id number] Aylin Nguyen MD [facility] [address] [place] [address] 07/17/2022 14:10:01 07/17/2022 14:52:58 Polycystic ovary syndrome 950554200 E28.2 Continue on spironolac tone 50 mg daily as patient tolerating well- testostero ne pending. Will send for low dose dexa suppressio n testing to screen for hypercorti solic state. She is not on steroid therapy or estrogen at this time. She has multiple fibroids on examinatio n- will follow up with gynecology . Prediabetes 847503771 R7 3.03 Will trial on rybelsus 3 mg tablets as I can provide her a 30 day sampler today in clinic- she was educated to keep her tablets in the foil packs and separate from all other medication s prior to use; take by itself with water and wait half an hour to have food, coffee or other medication s to allow it to attach to stomach wall and dissipate and start absorptive process. She is aware of potential risk for nausea, vomiting, pancreatit is and medullary thyroid ca risk just as the injectable GLP1 agonists pose. will call in 7 mg daily tablet and will titrate slowly. Discussed carb counting and how to read food labels. Recommende d patient to utilize the diabetesfo [employer] from the ADA website to help with food preparatio n as this presents ideal carb content per meal so this will make carb counting much easier for patient. Recommende d she incorporat e natural insulin training program manager s such as pears, apples, cinnamon, bowen and sweet potatoes to help mobilize her endogenous insulin. Recommende d up to 150 minutes of moderate level activity/e xercise weekly. Spent up to 28 minutes preparing to see the patient (eg, review of tests), obtaining and/or reviewing separately obtained history, performing a medically appropriat e examinatio n and evaluation , counseling and educating the patient, ordering medication s, tests, along with documentin g clinical informatio n in the electronic health record, noahen cassandra interpreti ng results and communicat ing results to the patient. RTC in 6 months. Patient was provided a handwritte n lab order which contains our fax number. If she chooses to go outside of the [facility] system to obtain labwork she was advised to provide our fax number and my informatio n to the lab she will be obtaining labwork from in order to have her labs properly forwarded over for me to review so there is no loss of follow up due to use of outside network. She was also advised to contact our clinic informing us that she has completed her labwork so we are aware we will need to reach out to the appropriat e laboratory to request her results be forwarded to us so I might have the ability to review and make further medical decision making in her case. She voiced understand ing. [id number] Aylin Nguyen MD [facility] [address] [place] [address] 12/17/2022 10:41:22 12/17/2022 11:28:07 Polycystic ovary syndrome 992307975 E28.2 Patient has maintained stable weight overall and has done well on natural insulin training program manager s. Patient was encouraged to continue to maintain diet but not to go toward an extreme form of ketogenic diet. Recommende d up to 100 grams of carbs a day split into 6 small 15-20 gram carb meals in addition to up to 120 grams of protein daily split into 20-25 grams for 5-6 smaller meals. The recommende d diet should be one of which she can incorporat e on a daily basis that will not modulate her lifestyle - discussed a diet of increased fiber; decreased refined carbohydra maninder, trans fats, and saturated fats with focus on monounsatu rated fats such as unprocesse d chicken, turkey, nuts (excluding peanuts) and beans. Prediabetes 659659669 R7 3.03 Patient not noticing any improvemen t on the rybelsus. She is aware to stop. She has no hx of pancreatit is or medullary thyroid cancer and is willing to trial on a GLP1 agonist therapy. She was advised to contact clinic if she experience s any nausea, vomiting or significan t thyroid pain / swelling or abdominal pain so we can discuss and discontinu e and potentiall y look to other therapy. Will trial on ozempic 0.25 mg SQ weekly x 4 weeks then increase to 0.5 mg SQ weekly with largest meal of that day as tolerated. Weight gain 8688695 R63. 5 Will send for low dose dexa suppressio n testing to screen for hypercorti solic state. Spent up to 25 minutes preparing to see the patient (eg, review of tests), obtaining and/or reviewing separately obtained history, performing a medically appropriat e examinatio n and evaluation , counseling and educating the patient, ordering medication s, tests, along with documentin g clinical informatio n in the electronic health record, independen tly interpreti ng results and communicat ing results to the patient. Patient can be followed by PCP - she/he is aware of my resignatio n and last day of February 19. If needed his/her PCP can refer patient to another endocrinol ogist in the area. All questions /concerns answered and refills necessary at visit today. Health Concerns Section Related Observation LastModified by Organization Detai ls LastModified Time None Recorded Concern Status LastModified by Organization Details LastModified Time None Recorded Advance Directives Directive None Recorded Payers Encounter Date Sequence Insurance Name Policy Number Policy Franklin Covered Member ID Franklin Member ID Guarantor Name 07/17/2022 1 [place] [id number] Micole V Miles [id number] Micole Miles 07/17/2022 2 [employer] (PPO) Micole Miles [id number] Micole Miles 12/17/2022 1 [place] [id number] Micole V Miles [id number] Micole Miles 12/17/2022 2 [employer] (PPO) Micole Miles [id number] Micole Miles Notes Date Note Type Note [...] labs from 100 mg/dLCr normalCa 7.9 mg/dLTP/Alb cte445/129/35/76dhea s 14 ug/dLglucose 100 mg/dLinsulin 18.2 uU/ml transvaginal u/s:multiple uterine fibroids measuring up to 3.1 cm and ovaries appeared normal the u/s Aylin Nguyen MD [address], [place], [address], [employer] 07/17/2022 14:55:58 12/17/2022 text/html 42 yo female [...] Nguyen MD [address], [place], [address], [employer] 12/17/2022 14:10:26 OBGyn Episode No OBEpisode recorded.
[2024-09-04 10:05] VITALS: BP 125/90; PULSE 83; RESP 16; TEMP 36.6; O2SAT 100; BMI 36.1
[2024-09-04] MEDS: LACTATED RINGERS 1,000 ML 150 ML IV CONT (10:13)
--- NOTE | 2024-09-04 10:33 | PM.HPGS ---
History of Present Illness History of Present Illness Consent: Risks, benefits, and alternatives have been discussed and questions answered. Patient agrees to proceed with procedure. Chief complaint: IBS, Hemorrhage of anus and rectum Narrative: Cesario Jewell is a 44 year old female with constipation, last colonoscopy about 10 years ago Review of Systems Review of Systems: All systems reviewed & are unremarkable except as noted in HPI and below PMFSH Past Medical History Medical History Marijuana use Bipolar 1 disorder Irritable bowel syndrome with constipation History of glaucoma surgery 2019 History of suicide attempt History of electroconvulsive therapy PTSD (post-traumatic stress disorder) Glaucoma Obesity Depression with anxiety PCOS (polycystic ovarian syndrome) Exocrine pancreatic insufficiency Chronic kidney disease, stage 3a Hypertension Detached retina Cataracts, bilateral Surgical History Surgical History History of tonsillectomy History of eye surgery History of myomectomy open [address] Doshi History of breast biopsy 2011, 2019, 2021 History of laparoscopic appendectomy on 01/05/23 PDC Hx laparoscopic cholecystectomy Family History Family History Grandparent Family history of malignant neoplasm of ovary Diabetes mellitus Cerebrovascular accident Sibling Diabetes mellitus Unknown family medical history Bipolar 1 disorder Narcolepsy Mother Diabetes mellitus Glaucoma Hypertension Father CKD (chronic kidney disease) stage 4, GFR 15-29 ml/min COPD (chronic obstructive pulmonary disease) Malignant neoplasm of prostate Asthma Social History Social History Smoking status: Never smoker Second hand tobacco smoke exposure: Yes Alcohol intake: never Substance use: current Substance use type: marijuana Other substance usage details: EDIBLE Last use: 05/10/23 Do You Feel Safe in your Home?: Yes Lack of Transportation: YES Lack of Food: Never True Current Housing: I Have Housing Concerned About Future Housing: No Difficulty Paying Gas/Electric Bills: No Difficulty Paying for Meds: No Currently Unemployed: No Education: Master's Degree or Higher Difficulty w/ Childcare or Family Care: No Living arrangements: with family Occupation/Education: occupation Additional occupation/education comments: [employer] Gender identity (if verbalized by the patient): Female Spiritual care concerns: No Meds Home Medications and Allergies Home Medications ?Medication ?Instructions ?Recorded ?Confirmed ?Type atomoxetine 60 mg capsule 60 mg PO DAILY 12/15/22 09/04/24 History (Strattera) bupropion HCl 150 mg tablet,12 hr 150 mg PO DAILY 12/15/22 09/04/24 History sustained-release (Wellbutrin SR) escitalopram oxalate 20 mg tablet 20 mg PO DAILY 12/15/22 09/04/24 History (Lexapro) nebivolol 10 mg tablet 10 mg PO DAILY 12/15/22 09/04/24 History cariprazine 1.5 mg capsule 1.5 mg PO HS 01/05/23 09/04/24 History (Vraylar) albuterol 90 mcg/actuation aerosol 90 mcg inhalation PRN PRN 04/21/23 08/23/24 History inhaler Shortness Of Breath omeprazole magnesium 20 mg 20 mg PO DAILY PRN Indigestion 04/21/23 09/04/24 History tablet,delayed release (Prilosec OTC) montelukast 10 mg tablet 10 mg PO DAILY 08/05/23 09/04/24 History tirzepatide (weight loss) 2.5 2.5 mg subcut WEEKLY 07/20/24 09/04/24 History mg/0.5 mL subcutaneous pen injector (Zepbound) topiramate 50 mg tablet (Topamax) 50 mg PO BID 07/20/24 09/04/24 History lamotrigine 150 mg tablet 150 mg PO DAILY 07/31/24 09/04/24 History zaleplon 10 mg capsule 10 mg PO DAILY 07/31/24 09/04/24 History lipase 60,000-protease 1 cap PO QID #300 caps 08/03/24 09/04/24 Rx 189,600-amylase 252,600 unit capsule, delay rel (Zenpep) Allergies Allergy/AdvReac Type Severity Reaction Status Date / Time Penicillins Allergy Severe HIVES Verified 09/04/24 10:03 penicillin G Allergy Unknown Hives Verified 09/04/24 10:03 Sulfa (Sulfonamide Allergy Unknown EYES ITCH Verified 09/04/24 10:03 Antibiotics) AND SWELL acetaminophen (From Percocet) AdvReac Vomiting Verified 09/04/24 10:03 oxycodone (From Percocet) AdvReac Vomiting Verified 09/04/24 10:03 Vital Signs Vital Signs - 24 hr 09/04/24 10:05 Temperature 97.9 F Pulse Rate 83 Respiratory Rate 16 Blood Pressure 125/90 Pulse Oximetry 100 Oxygen Delivery Room Air Exam Const: General: comfortable and no acute distress HENMT: Face/Nose/Sinus: Normal nares present Eyes: General: appearance normal, both eyes and all related structures Neck: Neck: no JVD Resp: Auscultation: clear to auscultation bilaterally Cardio: Rate: regular rate Rhythm: regular rhythm GI: Inspection: non-distended GI Palp: Yes Soft to palpation Skin: General skin exam: normal color Neuro: Speech: normal speech Extrem: General: normal to inspection Psych: Mental Status: mental status grossly normal Assessment and Plan Assessment and plan (1) Irritable bowel syndrome with constipation: Code(s): K58.1 - Irritable bowel syndrome with constipation Status: Acute Assessment and Plan: colonoscopy
--- NOTE | 2024-09-04 10:42 | P.PNAN_ITS ---
Anes - Initial Pre Proc Eval Procedure: Operation Date: 09/04/24 14:30 Proposed Procedures p Colonoscopy - Joseph Arce MD Date/Time: 09/04/24 10:42 Surgeon: Joseph Arce MD Pre Op Diagnosis: IBS, Hemorrhage of anus and rectum Patient Data Age: 44 Gender: F Height: 1.68 m Weight: 101.4 kg Last Vital Signs Temp 97.9 F 09/04/24 10:05 Pulse 83 09/04/24 10:05 Resp 16 09/04/24 10:05 BP 125/90 09/04/24 10:05 Pulse Ox 100 09/04/24 10:05 O2 Del Method Room Air 09/04/24 10:05 Allergies Allergy/AdvReac Type Severity Reaction Status Date / Time Penicillins Allergy Severe HIVES Verified 09/04/24 10:03 penicillin G Allergy Unknown Hives Verified 09/04/24 10:03 Sulfa (Sulfonamide Allergy Unknown EYES ITCH Verified 09/04/24 10:03 Antibiotics) AND SWELL acetaminophen (From Percocet) AdvReac Vomiting Verified 09/04/24 10:03 oxycodone (From Percocet) AdvReac Vomiting Verified 09/04/24 10:03 Home Medications ?Medication ?Instructions ?Recorded ?Confirmed ?Type atomoxetine 60 mg capsule 60 mg PO DAILY 12/15/22 09/04/24 History (Strattera) bupropion HCl 150 mg tablet,12 hr 150 mg PO DAILY 12/15/22 09/04/24 History sustained-release (Wellbutrin SR) escitalopram oxalate 20 mg tablet 20 mg PO DAILY 12/15/22 09/04/24 History (Lexapro) nebivolol 10 mg tablet 10 mg PO DAILY 12/15/22 09/04/24 History cariprazine 1.5 mg capsule 1.5 mg PO HS 01/05/23 09/04/24 History (Vraylar) albuterol 90 mcg/actuation aerosol 90 mcg inhalation PRN PRN 04/21/23 08/23/24 History inhaler Shortness Of Breath omeprazole magnesium 20 mg 20 mg PO DAILY PRN Indigestion 04/21/23 09/04/24 History tablet,delayed release (Prilosec OTC) montelukast 10 mg tablet 10 mg PO DAILY 08/05/23 09/04/24 History tirzepatide (weight loss) 2.5 2.5 mg subcut WEEKLY 07/20/24 09/04/24 History mg/0.5 mL subcutaneous pen injector (Zepbound) topiramate 50 mg tablet (Topamax) 50 mg PO BID 07/20/24 09/04/24 History lamotrigine 150 mg tablet 150 mg PO DAILY 07/31/24 09/04/24 History zaleplon 10 mg capsule 10 mg PO DAILY 07/31/24 09/04/24 History lipase 60,000-protease 1 cap PO QID #300 caps 08/03/24 09/04/24 Rx 189,600-amylase 252,600 unit capsule, delay rel (Zenpep) Patient hx anesthesia problems: none Family hx anesthesia problems: none Results Review: All pre-operative results and documents have been reviewed as part of the pre- operative evaluation. [facility] Past Medical History Medical History Marijuana use Bipolar 1 disorder Irritable bowel syndrome with constipation History of glaucoma surgery 2019 History of suicide attempt History of electroconvulsive therapy PTSD (post-traumatic stress disorder) Glaucoma Obesity Depression with anxiety PCOS (polycystic ovarian syndrome) Exocrine pancreatic insufficiency Chronic kidney disease, stage 3a Hypertension Detached retina Cataracts, bilateral Surgical History Surgical History History of tonsillectomy History of eye surgery History of myomectomy open [address] Doshi History of breast biopsy 2011, 2019, 2021 History of laparoscopic appendectomy on 01/05/23 PDC Hx laparoscopic cholecystectomy Family History Family History Grandparent Family history of malignant neoplasm of ovary Diabetes mellitus Cerebrovascular accident Sibling Diabetes mellitus Unknown family medical history Bipolar 1 disorder Narcolepsy Mother Diabetes mellitus Glaucoma Hypertension Father CKD (chronic kidney disease) stage 4, GFR 15-29 ml/min COPD (chronic obstructive pulmonary disease) Malignant neoplasm of prostate Asthma Social History Social History Smoking status: Never smoker Second hand tobacco smoke exposure: Yes Alcohol intake: never Substance use: current Substance use type: marijuana Other substance usage details: EDIBLE Last use: 05/10/23 Do You Feel Safe in your Home?: Yes Lack of Transportation: YES Lack of Food: Never True Current Housing: I Have Housing Concerned About Future Housing: No Difficulty Paying Gas/Electric Bills: No Difficulty Paying for Meds: No Currently Unemployed: No Education: Master's Degree or Higher Difficulty w/ Childcare or Family Care: No Living arrangements: with family Occupation/Education: occupation Additional occupation/education comments: [employer] Gender identity (if verbalized by the patient): Female Spiritual care concerns: No Anes - Eval Final PreProcedure Day of Procedure 09/04/24 10:42 Patient weight: obese Lungs: normal air movement Airway: Mallampati scale class II Neurological: alert and oriented Last oral intake: >/= 8 hours ASA classification: III Emergent: no Anesthetic plan: proceed Anesthesia type and monitoring: general GIVS and standard monitoring Results Review: All pre-operative results and documents have been reviewed as part of the pre- operative evaluation. 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 Pt has been off GLP1 for approx 14 days. Informed Consent: The patient's anesthetic plan and its attendant risks and benefits were discussed with the patient/family/POA. Questions were solicited and answers provided to the satisfaction of the patient/family/POA.
[2024-09-04 10:57] VITALS: BP 100/59; PULSE 78; RESP 18; O2SAT 100
[2024-09-04 11:07] VITALS: BP 110/63; PULSE 75; RESP 18; O2SAT 100
[2024-09-04 11:17] VITALS: BP 106/72; PULSE 71; RESP 18; O2SAT 100
== END 2024-09-04 11:24 | disposition home or self-care (01) ==
PROVIDERS: PCP Family Medicine; Referring Provider Nurse Practitioner; Visit Provider Internal Medicine Gastroenterology
PROC: 0DJD8ZZ Inspection of Lower Intestinal Tract, Via Natural or Artificial Opening Endoscopic (ICD-10-PCS; CPT 45378; principal; 2024-09-04 14:30)
DX: K58.1 Irritable bowel syndrome with constipation (principal); K64.8 Other hemorrhoids; F31.9 Bipolar disorder, unspecified; F41.8 Other specified anxiety disorders; N18.31 Chronic kidney disease, stage 3a; I12.9 Hypertensive chronic kidney disease with stage 1 through stage 4 chronic kidney disease, or unspecified chronic kidney disease; H40.9 Unspecified glaucoma
CPT/HCPCS: 45378; J2003; J2704; J7120

== ENCOUNTER 2024-09-09 07:30 | Outpatient (CLI) | payer BC, OTHER, SELFPAY ==
[2024-09-09 07:57] LABS: Hemoglobin 12.9 g/dL (12.0-15.0); Mean Corpuscular HGB Conc 31.5 g/dl (32-36); Mean Corpuscular Hemoglobin 23.9 pg (26-34); Mean Corpuscular Volume 76.1 fl (80-100); Mean Platelet Volume 9.8 fl (7.4-10.4); Platelet Count Result 367 k/mm3 (150-375); Red Blood Count 5.39 M/mm3 (4.2-5.4); Red Cell Distribution Width 14.9 % (11.5-14.5); White Blood Count 7.8 K/mm3 (4.5-10.0)
[2024-09-09 07:58] LABS: Add Urine Microscopic? NO; Appearance Urine Clear (Clear); Bilirubin Urine Negative (Negative); Blood Urine Negative (Negative); Color Urine Yellow (Yellow); Glucose Urine UA Negative (Negative); Ketones Urine Negative (Negative); Leukocyte Esterase Ur Negative LEU/UL (Negative); Nitrate Urine Negative (Negative); Protein Urine Negative (Negative); pH Urine 7.5 (5.0-9.0)
[2024-09-09 08:34] LABS: Alanine Aminotransferase 28 U/L (6-35); Albumin Level 4.2 g/dL (3.5-5.1); Alkaline Phosphatase 97 U/L (38-126); Anion Gap 9 mmol/L (4-12); Aspartate Amino Transferase 29 U/L (14-36); Bilirubin,Total 0.8 mg/dL (0.2-1.3); Blood Urea Nitrogen 7 mg/dL (7-17); Calcium 8.8 mg/dL (8.4-10.2); Carbon Dioxide 25 mmol/L (22-30); Chloride 105 mmol/L (98-107); Cholesterol 166 mg/dL (0-200); Estimated Glomerular Filt Rate 53; Glucose 88 mg/dL (65-110); HDL Direct 40 mg/dL; Potassium 3.8 mmol/L (3.4-5.0); Sodium 139 mmol/L (137-145); Triglycerides 111 mg/dL (<150)
[2024-09-09 08:45] LABS: LDL Cholesterol Direct 73 mg/dL
--- OUTSIDE RECORDS SUMMARY | 2024-09-09 15:50 | XMS_ITS | Referral Summary ---
Author Organization [facility] Address [address] [place] [address] Phone Care Team Providers Care Dopeman Name Role Phone Zoran Willams Unavailable Unavailable Martha Johnson MD Primary Care Provider [phone] Encounters Date Type Department Care Team Description 07/05/2024 10:30 AM NETWORK SOLUTIONS ARCHITECT Office Visit [facility] Cardiology at [address] [place] [address] Yessi Miles MD Chest pain, atypical (Primary Dx) 06/20/2024 Telephone [facility] Diabetes and Endocrinology [address] [place] [id number] Bryn Peterson MD Prior Auth (Zepbound) 06/16/2024 [facility]phone [facility] [id number] [place] [address] [address] [place] [address] Bryn Peterson MD 06/12/2024 9:15 AM NETWORK SOLUTIONS ARCHITECT Ancillary Procedure [facility] Cardiology [address] [address] [address] [place] [address] Abnormal EKG from Last 3 Months Allergies Active Allergy [...] (BMI) of 36.0 to 36.9 in adult ([facility]) INJECT 0.5 ML (5 MG TOTAL) UNDER [...] to include albumin milk. Okay to include Cymraes yogurt Advise to look into intermittent fasting. Continue endurance and weight training Assessment & Plan (04/06/2023 4:26 PM NETWORK SOLUTIONS ARCHITECT): Counseled patient on diet and exercise Advised patient to stop added sugars, cutback on processed foods Include whole grain, fruits and vegetables, greens, lean, organic fashion chicken Cutback on red meat and processed meat Avoid animal daily products. Advised to include albumin milk. Okay to include Cymraes yogurt Advise to look into intermittent fasting. Continue endurance and weight training Prediabetes 04/06/2023 Assessment & Plan (11/10/2023 12:19 PM CDT): Counseled on diet and exercise Continue mounjaro 5 mg subQ weekly Assessment & Plan (04/06/2023 4:26 PM NETWORK SOLUTIONS ARCHITECT): Counseled on diet and exercise Switch Ozempic [...] exercises Assessment & Plan (04/06/2023 4:26 PM NETWORK SOLUTIONS ARCHITECT): Counseled on diet and exercise as above [...] Nasal saline spray (Simply saline, Little Remedies, [place], [place]) 2 second sprays or 2 squeezes into each nostril while looking down over the sink, do not need to sniff in. Follow up in 6 months, earlier with any ear drainage 07/06/2019 T-tubes placed in Office Nipple discharge in female 12/12/2019 Acute recurrent maxillary sinusitis 05/26/2019 Assessment & Plan (05/26/2019 10:38 AM NETWORK SOLUTIONS ARCHITECT): Take Cefdinir with a meal daily Nasal saline spray (Simply saline, [place] Remedies, [place], [place]) 2 second sprays or 2 squeezes into [...] drainage Assessment & Plan (07/07/2019 3:32 PM NETWORK SOLUTIONS ARCHITECT): Bilateral myringotomy with T-tube placement in Office today Risks and complications discussed including anesthesia, bleeding, infection, hearing loss, ear tubes may fall out early, fall inwards, stay in longer than a few years, get clogged, fall out and leave a hole in the ear drum that would need to be patched, drain clear fluid. Assessment & Plan (05/26/2019 10:38 AM NETWORK SOLUTIONS ARCHITECT): Take Cefdinir with a meal daily Nasal saline spray (Simply saline, Little Remedies, [place], [place]) 2 second sprays or 2 squeezes into [...] 05/26/2019 Assessment & Plan (05/26/2019 10:38 AM NETWORK SOLUTIONS ARCHITECT): Hearing test right before follow up Left ear pain 05/26/2019 Assessment & Plan (05/26/2019 8:08 PM NETWORK SOLUTIONS ARCHITECT): Take Cefdinir with a meal daily Nasal saline spray (Simply saline, [place] Remedies, [place], [place]) 2 second sprays or 2 squeezes into [...] deficiency Assessment & Plan (04/06/2023 4:26 PM NETWORK SOLUTIONS ARCHITECT): Check levels and further plans based on [...] on file Legal Sex Female 10:37 AM NETWORK SOLUTIONS ARCHITECT Gender Identity Not on file Sexual Orientation Not on file Last Filed Vital Signs Vital Sign Reading Time Taken Comments Blood Pressure 100/76 07/05/2024 10:22 AM NETWORK SOLUTIONS ARCHITECT Pulse 80 07/05/2024 10:22 AM NETWORK SOLUTIONS ARCHITECT Temperature 36.2 C (97.2 F) 05/19/2021 11:04 AM NETWORK SOLUTIONS ARCHITECT Respiratory Rate 15 06/06/2024 11:03 AM NETWORK SOLUTIONS ARCHITECT Oxygen Saturation 98% 07/05/2024 10:22 AM NETWORK SOLUTIONS ARCHITECT Inhaled Oxygen Concentration - - Weight 106.6 kg (235 lb) 06/06/2024 11:03 AM NETWORK SOLUTIONS ARCHITECT Height 167.6 cm (5' 6 ) 07/05/2024 10:22 AM NETWORK SOLUTIONS ARCHITECT Body Mass Index 37.93 06/06/2024 11:03 AM NETWORK SOLUTIONS ARCHITECT Plan of Treatment Not on file Procedures Procedure Name Priority Date/Time Associated Diagnosis Comments NM MPI SPECT (REST AND/OR STRESS) MULTIPLE STUDIES Schedule Routine, Read Routine (OP Routine) 06/12/2024 11:04 AM NETWORK SOLUTIONS ARCHITECT Abnormal EKG DIAGNOSTIC MAMMOGRAM BILATERAL W RM Schedule Routine, Read Routine (OP Routine) 03/18/2021 3:39 PM NETWORK SOLUTIONS ARCHITECT Nipple discharge in female HEPATITIS C ANTIBODY Routine 12/19/2019 4:49 PM CDT from Last 3 Months or Most Recently Relevant to Health Maintenance Results * NM MPI SPECT (Rest and/or Stress) Multiple Studies (06/12/2024 11:04 AM NETWORK SOLUTIONS ARCHITECT) LV EF % CONS SCIMAGE Anatomical Region Laterality Modality Body N/A Nuclear Medicine 06/12/2024 9:16 AM NETWORK SOLUTIONS ARCHITECT Narrative 06/12/2024 4:24 PM NETWORK SOLUTIONS ARCHITECT [facility] Cardiology [address] [facility] [address] [address] [address] [facility] [address], [place] [address] P:[phone] P:[phone] MPI Imaging Report Patient Name: CESARIO JEWELL V : 1980 Study Date: 06/12/2024 9:16:32 AM Gender: F Tech: [facility] Location: [facility] Provider: MARTHA JOHNSON Height(Cm): 167.6 BSA: [...] calculated. Electronically Signed By: Gregory Rodríguez MD, [facility] 06/12/2024 4:23:21 PM NETWORK SOLUTIONS ARCHITECT Electronically Signed By: Gregory Rodríguez MD, [facility] 06/12/2024 4:23:21 PM NETWORK SOLUTIONS ARCHITECT Procedure Note Gregory Rodríguez MD - 06/12/2024 [facility] Cardiology [facility] [facility] [address], [place] [address] [address] [facility] [address], [place] [address] P:[phone] P:[phone] MPI Imaging Report Patient Name: CESARIO JEWELLDanette : 1980 Study Date: 06/12/2024 9:16:32 AM Gender: F Tech: [facility] Location: [facility] Provider: MARTHA JOHNSON Height(Cm): 167.6 BSA: Weight(Kg): 103.4 BMI: 36.81 Order Provider: MARTHA JOHNSON - PHYSICIAN: Referring Physician: Dr. Johnson. HCG Physician: Yessi Miles M.D., WilA.CCarlitoCCarlito Interpreting Physician: Gregory Rodríguez M.D.,F.A.CCarlitoCCarlito Stress Supervision: Gregory Rodríguez M.D.,WilA.CJessy PROCEDURES: Pharmacologic SPECT Report: Myocardial perfusion imaging [...] calculated. Electronically Signed By: Gregory Rodríguez MD, [facility] 06/12/2024 4:23:21 PM NETWORK SOLUTIONS ARCHITECT Electronically Signed By: Gregory Rodríguez MD, [facility] 06/12/2024 4:23:21 PM NETWORK SOLUTIONS ARCHITECT Martha Johnson MD IMG NM PROCEDURES Final Re sult * Diagnostic Mammogram Bilateral W Rm (03/18/2021 3:39 PM NETWORK SOLUTIONS ARCHITECT) Anatomical Region Laterality Modality Breast Bilateral Mammography 03/18/2021 4:19 PM NETWORK SOLUTIONS ARCHITECT Impressions 03/18/2021 4:52 PM NETWORK SOLUTIONS ARCHITECT 1. Two intraductal masses and/or debris within [...] Meryl Olguin M.D. Narrative 03/18/2021 4:52 PM NETWORK SOLUTIONS ARCHITECT EXAMINATION: BILATERAL DIGITAL DIAGNOSTIC MAMMOGRAM INCLUDING CAD [...] Hep C Ab Nonreactive Nonreactive [facility] ([place]) Comment: Interpretive Data Nonreactive: Antibodies to HCV [...] last revised on 2019. Testing performed by: [facility], [address] [place] [address], [place]., [address] Blood specimen (specimen) 12/19/2019 4:49 PM CDT 12/20/2019 9:45 AM CDT Kathryn Rosas MD LAB MICROBIOLOGY - GENERAL O RDERABLES Edited Result - Final [facility] ([place]) [address] [facility] Department [place] [address] from Last 3 Months or Most Recently Relevant to Health Maintenance Insurance [employer] OOS [employer] Care Teams Dopeman Relationship Specialty Start Date End Date Martha Johnson MD [employer] [place] [id number] PCP - General 02/24/19 Zoran Willams Family Medicine 05/18/18
--- OUTSIDE RECORDS SUMMARY | 2024-09-09 15:50 | XMS_ITS | Patient Health Record ---
Author Organization [facility] As [employer] [facility] Address [address] [place] [address] Care Team Providers Care Online Publisher Name Role Phone Martha Lawrence MD Primary Care Provider Unavailab Mitesh Minaya Unavailable [phone] Kandy Cardona Unavailable [phone] aDmian Nagel Unavailable [phone] [employer], Provider Unavailable Unavailable Marciano Caal Unavailable [phone] Allergies Allergen (clinical drug ingredient) Drug/Non Drug [...] FOR PAIN Oral for 15 Days Active Spravato (84 MG Dose) 28 MG/DEVICE 3 sprays in each nostril Nasally once a week for 1 days 08/29/2024 Active Escitalopram Oxalate 20 MG TAKE 1 TABLET BY MOUTH EVERY DAY Oral for 90 Days Activ e Vraylar 3 mg 1 capsule Oral once daily for 90 days Active Nebivolol HCl 10 MG TAKE 1 TABLET BY DAGMAR TH EVERY DAY Oral for 90 Days Activ e Escitalopram Oxalate 20 MG 1 tablet Oral Once a day for 90 days Active Albuterol Sulfate HFA 108 (90 Base) MCG/ACT Inhalation for 15 Days Active Zenpep [id number] UNIT Oral for 30 Days Active traZODone HCl 100 MG 1 tablet Orally Onc e a day for 90 days Active Topiramate 50 MG TAKE 1 TABLET BY DAGMAR TH TWICE A DAY Oral for 90 Days Active Mounjaro 5 MG/0.5ML INJECT 5 MG SUBCUTAN EOUSLY WEEKLY Subcutaneous for 28 Days Active buPROPion HCl ER (XL) 150 MG 1 tablet Oral Once a day for 90 days Active Montelukast Sodium 10 MG TAKE 1 TABLET B Y MOUTH EVERY DAY Oral for 90 Days Activ e Zaleplon 10 MG 1 capsule at bedtime [...] Risk Notes Problem Moderate recurrent major depression (39926356) Major depressive disorder, recurrent, moderate (F33.1) Active confirmed Problem Severe recurrent major depression without psychotic features (33079005) Major depressive disorder, recurrent severe without psychotic features (F33.2) 09/14/19 24 Active confirmed Problem Generalized anxiety disorder (52069207) Generalized anxiety disorder (F41.1) 09/20/19 24 Active confirmed Problem Posttraumatic stress disorder (16211620) Post-traumatic stress disorder, chronic (F43.12) Active confirmed Problem Primary insomnia (8733684) Primary insomnia (F51.01) Active confirmed Problem Insomnia disorder related to another mental disorder (07645193) Insomnia due to other mental disorder (F51.05) Active confirmed Problem Attention deficit hyperactivity disorder, combined type (90263951) Attention-deficit hyperactivity disorder, combined type (F90.2) Active confirmed Problem [id number] MDD (major depressive disorder), recurrent episode, mild (F33.0) Active confirmed Problem 3092318 Suicidal thought s (R45.851) Active confirmed Problem 23438621 Sleep disturbanc e (G47.9) Active confirmed Vital Signs Heart Rate 75 /min 09/06/2024 Temperature 99 degrees Fahrenheit 07/13/2024 117/78 Height-cm 167.64 cm 09/06/2024 Oximetry 99 % 09/06/2024 Blood pressure diastolic 70 mm Hg 09/06/2024 Weight-kg 107.5 kg 08/16/2024 Height 66.00 in 09/06/2024 Blood pressure systolic 120 mm Hg 09/06/2024 Weight 237 lbs 08/16/2024 BMI 38.25 kg/m2 08/16/2024 Encounters Encounter Location Date Provider Diagnosis [employer] [facility] [address] [facility] [address] [place] [address] 08/16/2024 Mitesh Dawson Encounter for screening for cardiovascular disorders Z13.6 ; Encounter for screening for depression Z13.31 ; Generalized anxiety disorder F41.1 ; Primary insomnia F51.01 ; Attention-deficit hyperactivity disorder, combined type F90.2 and Major depressive disorder, recurrent, moderate F33.1 [employer] [facility] [address] [facility] [address] [place] [address] 09/14/2023 Kandy Cardona Major depressive disorder, recurrent severe without psychotic features F33.2 [employer] [facility] [address] [facility] [address] [place] [address] 09/20/2023 Mitesh Dawson Major depressive disorder, recurrent, moderate F33.1 and Generalized anxiety disorder F41.1 [facility], [facility] [address] [place] [address] 10/05/2023 Miteshdean Resendezoza [facility], [facility] [address] [place] [address] 10/11/2023 Mitesh Dawson Major depressive disorder, recurrent severe without psychotic features F33.2 ; Generalized anxiety disorder F41.1 ; Attention-deficit hyperactivity disorder, combined type F90.2 ; Post-traumatic stress disorder, chronic F43.12 and Insomnia due to other mental disorder F51.05 [facility], [facility] [address] [place] [address] 10/21/2023 Mitesh Dawson Major depressive disorder, recurrent severe without psychotic features F33.2 and Generalized anxiety disorder F41.1 [facility], [facility] [address] [place] [address] 11/01/2023 Kandy Dulce Major depressive disorder, recurrent severe without psychotic features F33.2 [facility], [facility] [address] [place] [address] 11/10/2023 Kandy Dulce Major depressive disorder, recurrent severe without psychotic features F33.2 [facility], [facility] [address] [place] [address] 12/02/2023 Damian Robe Major depressive disorder, recurrent severe without psychotic features F33.2 [facility], [facility] [address] [place] [address] 12/13/2023 Marciano Clubb Major depressive disorder, recurrent severe without psychotic features F33.2 [facility], [facility] [address] [place] [address] 12/29/2023 Mitesh Dawson Generalized anxiety disorder F41.1 ; Primary insomnia F51.01 ; Attention-deficit hyperactivity disorder, combined type F90.2 and Major depressive disorder, recurrent, moderate F33.1 [facility], [facility] [address] [place] [address] 01/06/2024 Marciano Clubb Major depressive disorder, recurrent severe without psychotic features F33.2 [facility], [facility] [address] [place] [address] 01/17/2024 Damian Nagel Major depressive disorder, recurrent severe without psychotic features F33.2 and Sleep disturbance G47.9 [facility], [facility] [address] [place] [address] 01/28/2024 Marciano Clubb Major depressive disorder, recurrent severe without psychotic features F33.2 [facility], [facility] [address] [place] [address] 02/07/2024 Marciano Clubb Major depressive disorder, recurrent severe without psychotic features F33.2 [facility], [facility] [address] [place] [address] 02/17/2024 Marciano Clubb Major depressive disorder, recurrent severe without psychotic features F33.2 and Suicidal thoughts R45.851 [facility], [facility] [address] [place] [address] 02/28/2024 Marciano Clubb MDD (major depressiv e disorder), recurrent episode, mild F33.0 [facility], [facility] [address] [place] [address] 02/29/2024 Mitesh Dawson Generalized anxiety disorder F41.1 ; Primary insomnia F51.01 ; Attention-deficit hyperactivity disorder, combined type F90.2 and Major depressive disorder, recurrent, moderate F33.1 [facility], [facility] [address] [place] [address] 03/09/2024 Marciano Clubb MDD (major depressiv e disorder), recurrent episode, mild F33.0 [facility], [facility] [address] [place] [address] 03/20/2024 Marciano Clubb Major depressive disorder, recurrent severe without psychotic features F33.2 [facility], [facility] [address] [place] [address] 03/30/2024 Marciano Clubb Major depressive disorder, recurrent severe without psychotic features F33.2 [facility], [facility] [address] [place] [address] 04/10/2024 Marciano Clubb Major depressive disorder, recurrent severe without psychotic features F33.2 [facility], [facility] [address] [place] [address] 04/25/2024 Mitesh Dawson Generalized anxiety disorder F41.1 ; Primary insomnia F51.01 ; Attention-deficit hyperactivity disorder, combined type F90.2 and Major depressive disorder, recurrent, moderate F33.1 [facility], [facility] [address] [place] [address] 05/01/2024 Marciano Clubb Major depressive disorder, recurrent severe without psychotic features F33.2 [facility], [facility] [address] [place] [address] 05/12/2024 Marciano Clubb Major depressive disorder, recurrent severe without psychotic features F33.2 [facility] [employer], [facility] [address] [place] [address] 05/22/2024 Marciano Clubb Major depressive disorder, recurrent severe without psychotic features F33.2 [facility], [facility] [address] [place] [address] 06/01/2024 Marciano Clubb Major depressive disorder, recurrent severe without psychotic features F33.2 [facility] [employer], [facility] [address] [place] [address] 06/12/2024 Marciano Clubb Major depressive disorder, recurrent severe without psychotic features F33.2 [facility] [employer], [facility] [address] [place] [address] 06/22/2024 Marciano Clubb Major depressive disorder, recurrent severe without psychotic features F33.2 [facility] [employer], [facility] [address] [place] [address] 07/03/2024 Marciano Clubb Major depressive disorder, recurrent severe without psychotic features F33.2 [facility] [employer], [facility] [address] [place] [address] 07/13/2024 Marciano Clubb Major depressive disorder, recurrent severe without psychotic features F33.2 [facility] [employer], [facility] [address] [place] [address] 07/19/2024 Mitesh Dawson Encounter for screening for depression Z13.31 ; Encounter for screening for cardiovascular disorders Z13.6 ; Generalized anxiety disorder F41.1 ; Primary insomnia F51.01 ; Attention-deficit hyperactivity disorder, combined type F90.2 and Major depressive disorder, recurrent severe without psychotic features F33.2 [facility] [employer], [facility] [address] [place] [address] 07/24/2024 Marciano Clubb Major depressive disorder, recurrent severe without psychotic features F33.2 [facility], [facility] [address] [place] [address] 08/02/2024 Marciano Clubb Major depressive disorder, recurrent severe without psychotic features F33.2 ; Encounter for screening for depression Z13.31 and Encounter for screening for cardiovascular disorders Z13.6 [facility] [employer], [facility] [address] [place] [address] 08/09/2024 Marciano Clubb Major depressive disorder, recurrent severe without psychotic features F33.2 and Encounter for screening for cardiovascular disorders Z13.6 [facility] [employer], [facility] [address] [place] [address] 08/14/2024 Marciano Clubb Major depressive disorder, recurrent severe without psychotic features F33.2 and Encounter for screening for cardiovascular disorders Z13.6 [facility] [employer], [facility] [address] [place] [address] 08/21/2024 Marciano Clubb Major depressive disorder, recurrent severe without psychotic features F33.2 and Encounter for screening for cardiovascular disorders Z13.6 [facility] [employer], [facility] [address] [place] [address] 08/28/2024 Marciano Clubb Major depressive disorder, recurrent severe without psychotic features F33.2 and Encounter for screening for cardiovascular disorders Z13.6 [facility] [employer], [facility] [address] [place] [address] 09/06/2024 Marciano Clubb Major depressive disorder, recurrent severe without psychotic features F33.2 ; Encounter for screening for cardiovascular disorders Z13.6 and Encounter for screening for depression Z13.31 [facility] [employer], [facility] [address] [place] [address] 09/25/2023 Provider [employer] [facility] [employer], [facility] [address] [place] [address] 09/26/2023 Provider [employer] [facility] [employer], [facility] [address] [place] [address] 10/19/2023 Mitesh Resendezoza Major depressive disorder, recurrent severe without psychotic features F33.2 [facility] [employer], [place] [address] [place] [address] 10/26/2023 Mitesh Dawson Major depressive disorder, recurrent severe without psychotic features F33.2 [facility], [facility] [address] [place] [address] 11/19/2023 Mitesh Dawson [facility], [facility] [address] [place] [address] 11/22/2023 Mitesh Dawson [facility], [facility] [address] [place] [address] 11/29/2023 Mitesh Dawson Primary insomnia F51.01 [facility], [facility] [address] [place] [address] 12/27/2023 Mitesh Dawson [facility], [facility] [address] [place] [address] 04/04/2024 Marciano Caal Major depressive disorder, recurrent severe without psychotic features F33.2 [facility], [facility] [address] [place] [address] 04/17/2024 Mitesh Dawson [facility], [facility] [address] [place] [address] 06/12/2024 Mitesh Dawson Major depressive disorder, recurrent severe without psychotic features F33.2 [facility], [facility] [address] [place] [address] 08/28/2024 Mitesh Dawson Major depressive disorder, recurrent severe without psychotic features F33.2 [facility], [facility] [address] [place] [address] 01/24/2024 Mitesh Dawson [facility], [facility] [address] [place] [address] 04/16/2024 Mitesh Dawson Major depressive disorder, recurrent, [...] severe without psychotic features (ICD-10 - F33.2) 09/06/2024 Major depressive disorder, recurrent severe without psychotic [...] screening for cardiovascular disorders (ICD-10 - Z13.6) 08/21/2024 Major depressive disorder, recurrent severe without [...] SPRAVATO and go away the same day. 06/22/2024 Major depressive disorder, recurrent severe without psychotic features (ICD-10 - F33.2) Continue current treatment as prescribed by primary psychiatric care provider. 07/03/2024 Major depressive disorder, recurrent severe without psychotic features (ICD-10 - F33.2) continue current treatment as prescribed by primary psychiatric care provider. 07/13/2024 Major depressive disorder, recurrent severe without psychotic features (ICD-10 - F33.2) continue current treatment as prescribed by primary psychiatric care provider. 07/19/2024 Encounter for screening for depression (ICD-10 - Z13.31) 07/24/2024 Major depressive disorder, recurrent severe without psychotic features (ICD-10 - F33.2) 08/02/2024 Major depressive disorder, recurrent severe without [...] SPRAVATO and go away the same day. 08/09/2024 Major depressive disorder, recurrent severe without [...] SPRAVATO and go away the same day. 08/14/2024 Major depressive disorder, recurrent severe without [...] Disorder - Patient reports depression severity at 7-8. - Plan: a. Continue current antidepressant medication. b. Encourage regular physical activity and psychotherapy. 2. Generalized Anxiety Disorder - Patient reports anxiety severity at 5-6. - Plan: a. Continue current anxiolytic medication. [...] a. Assess for presence of psychotic symptoms. 04/16/2024 Major depressive disorder, recurrent, moderate (ICD-10 [...] - No reported hallucinations, delusions, or paranoia. 04/25/2024 Generalized anxiety disorder (ICD-10 - F41.1) [...] mental health appointments to maintain treatment efficacy. 05/12/2024 Major depressive disorder, recurrent severe without [...] changes in safety concerns during follow-up appointments. 05/22/2024 Major depressive disorder, recurrent severe without [...] Plan: a. Continue monitoring at future appointments. 06/01/2024 Major depressive disorder, recurrent severe without [...] any new concerns to their healthcare provider. 06/12/2024 Major depressive disorder, recurrent severe without psychotic features (ICD-10 - F33.2) continue current treatment as prescribed by primary psychiatric care provider. 11/01/2023 Major depressive disorder, recurrent severe without psychotic features (ICD-10 - F33.2) Continue current medications, esketamine treatments as scheduled. 11/10/2023 Major depressive disorder, recurrent severe without psychotic features (ICD-10 - F33.2) Continue current treatmet plan. 11/29/2023 Primary insomnia (ICD-10 - F51.01) 12/02/2023 Major depressive disorder, recurrent severe without psychotic features (ICD-10 - F33.2) 12/13/2023 Major depressive disorder, recurrent severe without psychotic features (ICD-10 - F33.2) 10/19/2023 Major depressive disorder, recurrent severe without psychotic features (ICD-10 - F33.2) 10/21/2023 Major depressive disorder, recurrent severe without psychotic features (ICD-10 - F33.2) tolerates Spravato treatment well Spravato 84mg every 10 days you have a upcoming appointment for Spravato nasal spray on Please arrive 15 to 20 minutes before your appointment. Make sure you check in with the front end architect Please do not eat or drink 2 [...] sure you check in with the front end architect Please do not eat or drink 2 [...] the next day after a restful sleep 12/29/2023 Generalized anxiety disorder (ICD-10 - F41.1) 1. Treatment-resist ant depression and anxiety: - Continue Bupropion 150 mg daily - Continue Escitalopram 20 mg daily - Continue Vraylar 3 mg daily - Continue Spravato 84 mg every 10 days - Continue Lamotrigine 100 mg once a day at night Plan: - Monitor response to medications and adjust as needed - Complete [place] paperwork for one day a week off [...] for Atomoxetine 60 mg at this time 01/06/2024 Major depressive disorder, recurrent severe without psychotic features (ICD-10 - F33.2) 1. Depression - She reports a depression rating of 4/10. - No recent medication changes. - Continue her current treatment plan and monitor her progress. 2. Anxiety - She reports an anxiety rating of 7/10, exacerbated by a recent stressor ([employer] issue). - She describes her anxiety as [...] sleep. - Plan: a. Recommend trial of knvf-oaf-bzdpxps magnesium supplement (200 mg) to improve sleep quality. b. Encourage good sleep hygiene like consistent bed/wake times and limited screen time before bed. 3. Overeating - She reports overeating. - Patient mentions it balances out with Mounjaro Plan a. Encourage tracking food intake and identifying overeating triggers. b. Recommend consultation with a crime prevention police officer/onofre mays for dietary guidance. c. Encourage regular [...] sleep. - Plan: a. Recommend trial of iwau-kws-mpezeue magnesium supplement (200 mg) to improve sleep quality. b. Encourage good sleep hygiene like consistent bed/wake times and limited screen time before bed. 3. Overeating - She reports overeating. - Patient mentions it balances out with Mounjaro Plan a. Encourage tracking food intake and identifying overeating triggers. b. Recommend consultation with a crime prevention police officer/onofre mays for dietary guidance. c. Encourage regular physical activity. 4. General Health - No reported physical complaints like headache, nausea, vomiting, or diarrhea. - Plan: a. Continue monitoring general health at follow-ups. b. Encourage reporting any new/worsening symptoms promptly. 01/28/2024 Major depressive disorder, recurrent severe without [...] No reported medication changes or physical complaints. 02/07/2024 Major depressive disorder, recurrent severe without psychotic features (ICD-10 - F33.2) 1. Depression - Patient rates depression -11/16. [...] Plan: a. Encourage balanced diet. b. Consider crime prevention police officer referral if needed. c. Monitor appetite changes at next appointment. 5. Paranoia - Patient reports slight paranoia that something bad will happen. - Plan: a. Continue monitoring paranoia at next appointment. b. Consider therapy referral if worsens or impacts functioning. 02/17/2024 Major depressive disorder, recurrent severe without [...] go back to sleep. - Appointment with ledger clerk tomorrow to discuss sleep issues. - Encourage good sleep hygiene (consistent schedule, relaxing bedtime environment). 4. Appetite Disturbance - Reports appetite being all over the place, with periods of overeating and not eating. - Monitor appetite and eating habits. - Encourage balanced diet and regular meal schedule. - Consider referral to crime prevention police officer if issues persist. 09/14/2023 Major depressive disorder, recurrent severe without psychotic features (ICD-10 - F33.2) 09/20/2023 Major depressive disorder, recurrent, moderate (ICD-10 - F33.1) 09/20/2023 Generalized anxiety disorder (ICD-10 - F41.1) 10/11/2023 Major depressive disorder, recurrent severe without psychotic features (ICD-10 - F33.2) cont Spravato 84mg every 10 days tolerated tx well, has had improvement in depression symptoms with treatment 10/11/2023 Generalized anxiety disorder (ICD-10 - F41.1) 12/29/2023 Attention-defici t hyperactivity disorder, combined type [...] Atomoxetine 60 mg at this time 04/25/2024 Primary insomnia (ICD-10 - F51.01) zaleplon [...] mental health appointments to maintain treatment efficacy. 10/11/2023 Attention-defici t hyperactivity disorder, combined type (ICD-10 - F90.2) 05/01/2024 Major depressive disorder, recurrent severe without [...] Monitor overall physical health at future visits. 02/29/2024 Primary insomnia (ICD-10 - F51.01) zaleplon [...] of 8 treatments before the next visit. 08/14/2024 Encounter for screening for cardiovascular disorders (ICD-10 - Z13.6) 08/09/2024 Encounter for screening for cardiovascular disorders (ICD-10 - Z13.6) 07/19/2024 Encounter for screening for cardiovascular disorders (ICD-10 - Z13.6) 08/02/2024 Encounter for screening for depression (ICD-10 - Z13.31) 08/28/2024 Encounter for screening for cardiovascular disorders (ICD-10 - Z13.6) 08/21/2024 Encounter for screening for cardiovascular disorders (ICD-10 - Z13.6) 08/16/2024 Encounter for screening for depression (ICD-10 - Z13.31) 09/06/2024 Encounter for screening for cardiovascular disorders (ICD-10 - Z13.6) 09/06/2024 Encounter for screening for depression (ICD-10 - Z13.31) 08/16/2024 Generalized anxiety disorder (ICD-10 - F41.1) 08/16/2024 Primary insomnia (ICD-10 - F51.01) zaleplon 10 mg capsule 07/19/2024 Generalized anxiety disorder (ICD-10 - F41.1) [...] of 8 treatments before the next visit. 04/25/2024 Attention-defici t hyperactivity disorder, combined type [...] for Atomoxetine 60 mg at this time 10/11/2023 Post-traumatic stress disorder, chronic (ICD-10 - F43.12) continue weekly counseling with Krista 10/11/2023 Insomnia due to other mental disorder [...] of 8 treatments before the next visit. 04/25/2024 Major depressive disorder, recurrent, moderate (ICD-10 [...] mental health appointments to maintain treatment efficacy. 07/19/2024 Attention-defici t hyperactivity disorder, combined type (ICD-10 - F90.2) atomoxetine 60mg daily adhd, she has gluacoma, no stimulants - cont atom 08/16/2024 Attention-defici t hyperactivity disorder, combined type (ICD-10 - F90.2) atomoxetine 60mg daily adhd, she has gluacoma, no stimulants - cont atom 08/16/2024 Major depressive disorder, recurrent, moderate (ICD-10 - F33.1) 07/19/2024 Major depressive disorder, recurrent severe without psychotic features (ICD-10 - F33.2) 02/07/2024 Other Assessment and plan reviewed with [...] inconsistent sleep patterns. - Tried melatonin 5mg (Plentywood gummies) without improvement. - Plan: a. Recommend magnesium supplementation for REM sleep quality. b. Reassess sleep patterns at next appointment. c. Consider alternative sleep aids if needed. 4. Appetite Disturbance - Patient reports overeating or undereating, no in-between. - Plan: a. Encourage balanced diet. b. Consider crime prevention police officer referral if needed. c. Monitor appetite changes [...] go back to sleep. - Appointment with ledger clerk tomorrow to discuss sleep issues. - Encourage good sleep hygiene (consistent schedule, relaxing bedtime environment). 4. Appetite Disturbance - Reports appetite being all over the place, with periods of overeating and not eating. - Monitor appetite and eating habits. - Encourage balanced diet and regular meal schedule. - Consider referral to crime prevention police officer if issues persist. 03/30/2024 Other continue current treatment as prescribed by [facility] psychiatric care provider. 1. Major Depressive Disorder [...] Consider discussing medication or therapy adjustments with Jaime. nix. pt reports paranoia is worse when smoking [...] eating. - Encourage balanced diet. - Consider crime prevention police officer consultation for guidance on healthy eating habits. 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 It is a reflection of a visit with the patient. It might have some inaccuracy, including medication names and transcribing errors, though efforts have been made to correct them. 09/06/2024 Other Major Depressive Disorder Assessment: Patient presents with ongoing major depressive disorder, currently rated as 8 out of 10 in severity. She is scheduled for Spravato treatment as prescribed by her primary psychiatric care provider, Alexei. The patient expresses understanding of the risks and benefits of Spravato treatment. She denies suicidal ideations but reports hypnagogic hallucinations upon waking, which were explained as a normal phenomenon. Sleep is reported as 6-7 hours per night, and appetite is described as fluctuating. Plan: - Administer Spravato treatment as scheduled on 09/11/2024 - Patient instructed not to drive after Spravato administration - Follow-up with primary psychiatric care provider Alexei for ongoing management Anxiety Assessment: Patient reports current anxiety levels at 6 out of 10. No specific triggers or exacerbating factors were discussed during this encounter. Plan: - Continue monitoring anxiety levels in conjunction with depression treatment The note is transcribed using speech recognition software. It is a reflection of a visit with the patient. It might have some inaccuracy, including medication names and transcribing errors, though efforts have been made to correct them. Plan Of Treatment Next Appt Details Provider Name:Marciano Caal, 09/11/2024 03:00:00 PM, [address], [address], [address], Provider Name:Marciano Caal, 09/18/2024 03:00:00 PM, [address], [place] [address], [address], Provider Name:Marciano Caal, 09/25/2024 03:00:00 PM, [address], [place], [address], Provider Name:Marciano Caal, 10/04/2024 03:00:00 PM, [address], [address], [place], [address], Provider Name:Marciano Magaña Jimmievarun, 10/09/2024 03:00:00 PM, [address], [address], [place], [address], Provider Name:Marciano Magaña Jimmievarun, 10/16/2024 03:00:00 PM, [address], [address], [place], [address], Provider Name:Marciano Magaña Afua, 10/23/2024 03:00:00 PM, [facility], [facility] [address], [place], [address], Provider Name:Marciano Magaña Afua, 10/30/2024 03:00:00 PM, [address], [facility] [address], [place], [address], Provider Name:Marciano Magaña Afua, 11/06/2024 03:00:00 PM, [facility] [address], [address] [address], [place], [address], Insurance Providers Payer Name Payer Address Payer Phone Subscriber Number Group Number Insured Name Patient Relationship to Insured Coverage Start Date Coverage End Date [employer] [employer] [address] [place] [address] [id number] 20 [id number] JAQUELINE HASSAN Self - patient is the insured [facility] Benefit Plan [facility] [address] [place] [address] [id number] FERNANDO VASQUEZ Spouse - patient is the [...] Spravato (84 MG Dose) 08/28/2024 84 mg Spravato (84 MG Dose) 09/06/2024 84 mg Medical (General) History Medical History [...] Surgical History Surgery Date(Month/Year) Removal of gallbladder (69138) Tonsillectomy (552602546) Xcapsl ctrc rmvl cplx wo ecp (03604) Tonsilectomy/adenoids Unlisted procedure breast (49019) Breast surgery (83977) 01/08/2020 Other 04/18/2020 right rotator cuff 02/2024
--- OUTSIDE RECORDS SUMMARY | 2024-09-09 15:50 | XMS_ITS | Clinical Summary ---
Author Organization [facility] Address [address] [place] [address] Care Team Providers Care First Officer Name Role Phone Zuly Johnson Sushant SCOURING MACHINE TENDER Primary Care Provider [phone] Allergies Active Allergy Reactions Criticality Noted Date [...] on file Legal Sex Female 4:19 PM EXTRUDER TENDER Gender Identity Not on file Sexual Orientation Not on file Last Filed Vital Signs Vital Sign Reading Time Taken Comments Blood Pressure 134/98 03/16/2019 2:45 PM EXTRUDER TENDER Pulse 97 03/16/2019 2:45 PM EXTRUDER TENDER Temperature 36.8 C (98.2 F) 03/16/2019 2:45 PM EXTRUDER TENDER Respiratory Rate - - Oxygen Saturation 98% 03/16/2019 2:45 PM EXTRUDER TENDER Inhaled Oxygen Concentration - - Weight 112.9 kg (249 lb) 03/16/2019 2:45 PM EXTRUDER TENDER Height 167.6 cm (5' 6 ) 03/16/2019 2:45 PM EXTRUDER TENDER Body Mass Index 40.19 03/16/2019 2:45 PM EXTRUDER TENDER Plan of Treatment Health Maintenance Due [...] BCBS BLUE ACCESS/TRUE BLUE PPO Care Teams First Officer Relationship Specialty Start Date End Date Zuly Johnson, DANELLE PCP - General NURSE PRACTITIONER 04/29/18
--- OUTSIDE RECORDS SUMMARY | 2024-09-09 15:50 | XMS_ITS | Encounter Summary ---
Author Organization [facility] Healthcare Address [address] [place] [address] Care Team Providers Care Spa Director Name Role Phone Zoran Willams Unavailable Unavailable Martha Lawrence MD Primary Care Provider [phone] Encounter Details Date Type Department Care Team (Late st Contact Info) Description 12/18/2019 Telephone [facility] Advanced Medicine Breast Imaging [facility] ([facility]) [address] [place] [address] Kathryn Penaloza, SANJANA Social History Tobacco Use Types Packs/Day Years Used Date Smoking Tobacco: Never Smokeless Tobacco: Never Alcohol Use Standard Drinks/Week Comments No 0 (1 standard drink = 0.6 oz pur e alcohol) Comments No Sex and Gender Information Value Date Recorded Sex Assigned at Not on file Legal Sex Female 10:37 AM PIANO ACCOMPANIST Gender Identity Not on file Sexual Orientation Not on file documented as of this encounter Plan of Treatment Not on file documented as of this encounter Visit Diagnoses Not on filedocumented in this encounter Care Teams Spa Director Relationship Specialty Start Date End Date [place] [address] PCP - General 02/24/19 Zoran Willams Family Medicine 05/18/18 documented as of this encounter
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
--- OUTSIDE RECORDS SUMMARY | 2024-09-09 15:50 | XMS_ITS | Data Portability ---
Author Organization [place] [facility], Main Office Address [address] [place] [address] Care Team Providers Care Heel Seat Trimmer Name Role Phone OLAMIDE WILKERSONMONSE Hotbed Operator [phone] Assessment No assessment recorded. Plan of Treatment Reminders Order Date Submit Date Provider Last Modified By Organization Details Last Modified Time Details Appointments None recorded. Lab cortisol, am, serum [address] (Lab), [address] [place] [address], [address], 3 11:22:48 dexamethaso ne, serum [address] (Lab), [address] [place] [address], [address], 3 11:22:48 CMP, serum or plasma [address] (Lab), [address] [place] [address], [address], 3 14:48:33 HbA1c (hemoglobin A1c), blood [address] (Lab), [address] [place] [address], [address], 3 14:48:33 insulin, serum [address] (Lab), [address] [place] [address], [address], 3 14:48:33 cortisol, am, serum [address] [place] [address] (Lab), [address] [facility] [address], [place], [address], 3 12:48:07 dexamethaso ne, serum 2022 023 [facility] (Lab), [address] [facility] [address], [place], [address], 3 08:23:05 TSH + free T4, serum [address] (Lab), [facility] [address], [place], [address], 3 14:48:33 Referral None recorded. Procedures None recorded. Surgeries None recorded. Imaging None recorded. Medication Orders dexamethaso ne 1 mg tablet 2022 023 [facility] [address] [place], [address], 3 11:22:44 Ozempic 0.25 mg or 0.5 mg (2 mg/3 mL) subcutaneou s pen injector 2022 023 [facility] [address] [place], [address], 3 11:20:21 spironolact one 50 mg tablet 2022 023 [facility] [address] [place], [address], 3 11:21:16 Rybelsus 7 mg tablet 2022 023 [address] [place], [address], 3 11:20:32 dexamethaso ne 1 mg tablet [address] [facility], [address] [place], [address], 3 14:47:07 Patient TargetsNo targets recorded. Patient InstructionsNo instructions recorded. Reason for Referral None Reported. Results Created Date Observation Date Name Description Value Unit Range Abnormal Flag Note LastModifiedBy Organization Detail LastModifiedTime Result Notes None recorded. Problems Name Problem SNOMED Code Status Onset Date Resolution Date Notes Provider Name and Address Organization Details Recorded Time Polycystic ovary syndrome 155846409 Active 2021 Not Available [facility] 3 06:16:14 Hypertriglyce ridemia 191313773 Active 2021 Not Available [facility] 3 06:16:14 Hypertensive disorder 05751643 Active 2018 Not Available [facility] 3 06:16:14 Anxiety 36206505 Active 2018 Not Available [facility] 3 06:16:14 Liver enzymes level above reference range 838489047 Active 2021 Not Available [facility] 3 06:16:14 Prediabetes 541467584 Active 2020 Not Available [facility] 3 06:16:14 Weight gain 6218654 Active 2022 Aylin Nguyen MD [address] [place] [address], [address] , [facility] 3 11:22:06 Problem Notes None recorded. Procedures Surgical History Date Name Laterality Status Provider Name and Address Organization Details Recorded Time Eye completed Not Available [facility] 05/2022 06:11:09 laparoscopy completed Not Available [facility] 07/08/2022 06:11:09 Eye Surgery completed Not Available [facility] 07/08/2022 06:11:09 Unlisted procedure breast completed Not Available [facility] 07/08/2022 06:11:09 Ear Tube Placement completed Not Available [facility] 07/08/2022 06:11:09 cholecystectomy completed Not Available [facility] 07/08/2022 06:11:09 Imaging Results None recorded. Procedure Notes None recorded. Medical Equipment None Reported. Allergies Allergen ID Allergen Name Allergen Category Reaction Reaction Severity Criticality Documentation Date Start Date Code Code System Note Provider Name and Address Organization Details Recorded Time 30305 Substance with sulfonami de structure and antibacte rial mechanism of action (substanc e) medicatio n Not available Not available Not available 07/08/2022 32961 8003 SNOMED Sulfa eye drops Not Available [facility] 3 06:22:01 19861 Product containin g penicilli n (product) medicatio n Not available Not available Not available 07/08/2022 38707 8001 SNOMED Not Available [facility] 3 06:22:01 Medications Name Sig Start Date [...] % 99 % 90 /min 98.4 [degF] 225212. 39 g 120 mm[Hg] 80 mm[Hg] Not Available [facility] 3 06:13:53 Date Recorded Body height Provider Name an d Address Organization Details Last Updated DateTime 12/02/2021 162.56 cm Not Available [facility] 3 06:13:53 Date Recorded Body height Body mass index (BMI) Body weight Body temperature Heart rate Systolic blood pressure Diastolic blood pressure Provider Name and Address Organization Details Last Updated DateTime 3 162.56 cm 45 kg/m2 805415. 2 g 97.9 [degF] 88 /min 126 mm[Hg] 80 mm[Hg] Antonia Lucia, CLOTH BALER [place] [facility] 3 14:23:38 Date Recorded Body height Body mass index (BMI) Body weight Heart rate Body temperature Systolic blood pressure Diastolic blood pressure Provider Name and Address Organization Details Last Updated DateTime 3 162.56 cm 43.2 kg/m2 533969. 84 g 73 /min 98.7 [degF] 190 mm[Hg] 128 mm[Hg] Gabby Mendoza MA [place] [facility] [employer] 3 11:04:27 Social History Question Answer Notes LastModified by Organizat ion Details LastModified Time Tobacco Smoking Status Never Smoker Not Available [facility] 07/08/2022 06:10:12 What Is Your Level Of Alcohol Consumption? None [id number] Information not available 07/08/2022 What Is Your Level Of Caffeine Consumption? Moderate [id number] Information not available 07/08/2022 Which Illicit Or Recreational Drugs Have You Used? Pot [id number] Information not available 07/08/2022 What Is The Highest Grade Or Level Of School You Have Completed Or The Highest Degree You Have Received? 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 [id number] Information not available 07/08/2022 Do You Use Any Illicit Or Recreational Drugs? Yes [id number] Information not available 07/08/2022 Do You Or Have You Ever Used Any Other Forms Of Tobacco Or Nicotine? No [id number] Information not available 07/08/2022 Sex: Unknown Functional Status None recorded. Mental Status None recorded. Family History Relationship Description Onset Age of this Age Resolved Age Notes LastModified by Organization Details LastModified Time Sister Diabetes mellitus [email or web address] Not available 07/17 14:27:58 Medical History Condition Response DEPRESSION (INCLUDING POST ) Y HYPERTENSION Y GLAUCOMA Y Gynecological HistoryNo gynecological history recorded. Obstetrics History GPAL:G 0 P 0 0 0 0 Past Encounters Encounter ID Performer Location Encounter Start Date Encounter Closed Date Diagnosis/Indication Diagnosis SNOMED-CT Code Diagnosis ICD10 Code Diagnosis Note [id number] Aylin Nguyen MD [facility] [address] [place] [address] 12/24/2020 00:00:00 12/24/2020 21:39:34 [id number] [facility] [address] [place] [address] 12/02/2021 00:00:00 12/02/2021 17:02:29 [id number] Aylin Nguyen MD [facility] [place] [address] [place] [address] 07/17/2022 14:10:01 07/17/2022 14:52:58 Polycystic ovary syndrome 687315653 E28.2 Continue on spironolac tone 50 mg daily as patient tolerating well- testostero ne pending. Will send for low dose dexa suppressio n testing to screen for hypercorti solic state. She is not on steroid therapy or estrogen at this time. She has multiple fibroids on examinatio n- will follow up with gynecology . Prediabetes 687613002 R7 3.03 Will trial on rybelsus 3 [...] Recommende d patient to utilize the diabetesfo Helidyneb.Spacious from the ADA website to help with food preparatio n as this presents ideal carb content per meal so this will make carb counting much easier for patient. Recommende d she incorporat e natural insulin asphalt tar and gravel roofer s such as pears, apples, cinnamon, bowen [...] she chooses to go outside of the [facility] to obtain labwork she was [...] in her case. She voiced understand ing. [id number] Aylin Nguyen MD [facility] [address] [place] [address] 12/17/2022 10:41:22 12/17/2022 11:28:07 Polycystic ovary syndrome 450083706 E28.2 Patient has maintained stable weight overall and has done well on natural insulin asphalt tar and gravel roofer s. Patient was encouraged to continue to [...] turkey, nuts (excluding peanuts) and beans. Prediabetes 116807910 R7 3.03 Patient not noticing any improvemen [...] of that day as tolerated. Weight gain 5079525 R63. 5 Will send for low dose [...] ID Guarantor Name 07/17/2022 1 [place] [id number] Micole V Miles [id number] Micole Miles 07/17/2022 2 [employer] - [employer] B[employer]EF[employer]AN MANAGEMENT (PPO) Micole Miles [id number] Micole Miles 12/17/2022 1 [place] [id number] Micole V Miles [id number] Micole Miles 12/17/2022 2 [employer]NAGEMENT (PPO) Micole Miles [id number] Micole Miles Notes Date Note Type Note [...] labs from 100 mg/dLCr normalCa 7.9 mg/dLTP/Alb qtu179/129/35/76dhea s 14 ug/dLglucose 100 mg/dLinsulin 18.2 uU/ml transvaginal u/s:multiple uterine fibroids measuring up to 3.1 cm and ovaries appeared normal the u/s Aylin Nguyen MD [address], [facility] [address], [place], [address], [email or web address] 07/17/2022 14:55:58 12/17/2022 text/html 42 yo female [...] Nguyen MD [address], [address], [place], [address], [email or web address] 12/17/2022 14:10:26 OBGyn Episode No OBEpisode recorded.
--- OUTSIDE RECORDS SUMMARY | 2024-09-09 15:50 | XMS_ITS | Encounter Summary ---
Author Organization [facility] Address [address] [place] [address] Phone Care Team Providers Care Medical Insurance Coding Specialist Name Role Phone Zoran Willams Unavailable Unavailable Martha Lawrence MD Primary Care Provider [phone] Encounter Details Date Type Department Care Team (Late st Contact Info) Description 02/17/2020 Ophth Exam [facility] Ophthalmology [address] [place] [address] 1[address] [place] [phone] Juan Mcdaniel MD [address] [facility] [address] [place], [place] [id number] Social History Tobacco Use Types Packs/Day Years Used Date Smoking Tobacco: Never Smokeless Tobacco: Never Alcohol Use Standard Drinks/Week Comments No 0 (1 standard drink = 0.6 oz pur e alcohol) Comments No Sex and Gender Information Value Date Recorded Sex Assigned at Not on file Legal Sex Female 10:37 AM CERTIFIED SKI PATROLLER Gender Identity Not on file Sexual Orientation [...] with poor dilation, small YAG Care Teams Medical Insurance Coding Specialist Relationship Specialty Start Date End Date Martha Lawrence MD [address] [place] [address] PCP - General 02/24/19 Zoran Willams Family Medicine 05/18/18 documented as of this encounter
--- OUTSIDE RECORDS SUMMARY | 2024-09-09 15:50 | XMS_ITS | Clinical Summary ---
Author Organization [facility] [email or web address] Address [address] [address] Care Team Providers Care Lighting Fixtures Decorator Name Role Phone Martha Lawrence MD Primary Care Provider [phone] Kathy Corley APRN-JUN Unavailable [phone] Gibran David Unavailable Source Comments [facility] [email or web address],non-owned Affiliates and Associated Physician Practices is amultiple site organization consisting of ambulatory clinics and hospital sitesin [place], [place], [place] and [place]. This disclosure is being madepursuant to the Care Everywhere program and may not contain all information available regarding this patient. Last updated 18.[facility] Allergies Active Allergy Reactions Criticality Noted [...] 30 DAYS 07/20/19 24 Active HYDROcodone-aceta minophen (Chebanse) 7.5-325 MG tablet Take 1 (one) tablet [...] Nasal saline spray (Simply saline, Little Remedies, [place], Timewell) 2 second sprays or 2 squeezes into [...] Nasal saline spray (Simply saline, Little Remedies, [place], Timewell) 2 second sprays or 2 squeezes into [...] Nasal saline spray (Simply saline, Little Remedies, [place], Timewell) 2 second sprays or 2 squeezes into [...] Department Care Team Description 06/23/2024 2:00 PM ANESTHESIA RESIDENT Office Visit [facility] - Ophthalmology [address] [place] [phone] Fidel Moss MD Secondary glaucoma, mild stage, right (Primary Dx) 06/23/2024 1:15 PM ANESTHESIA RESIDENT Clinical Support [facility] - Ophthalmology [address] [place] [address] Fidel Moss MD Secondary glaucoma, mild stage, right (Primary Dx) 06/23/2024 Travel from Last 3 Months Immunizations Immunization [...] 115.7 kg (255 lb) 04/21/2022 12:37 PM ANESTHESIA RESIDENT Height 165.1 cm (5' 5 ) 04/21/2022 12:37 PM ANESTHESIA RESIDENT Body Mass Index 42.43 04/21/2022 12:37 PM ANESTHESIA RESIDENT Plan of Treatment Upcoming Encounters Date Type Department Care Team (Late st Contact Info) Description 12/19/2024 1:40 PM CDT Office Visit [facility] - Ophthalmology [address] [place] [phone] Fidel Moss MD [address] [place] [address] 06/06/2025 1:00 PM ANESTHESIA RESIDENT Office Visit [facility] - Ophthalmology [address] [place] [address] Chrystal Roa MD [address] [place] [address] [place] [address] Health Maintenance Due Date Last [...] this topic Medical Devices Implanted Type Area Enlisted Aircrew/Aerial Observer/Gunner Device Identifier Shelf Expiration Date Model / Serial / Lot Drain Glcm Thk.9mm Blnt Tpr Ahmed Flxb Implanted:Qty: 1 on 07/03/2020 by Franco Martinez MD at [facility] 04/30/2022 FP7 / / [id number] Graft Tissue Ttpl Ioptch Sclr .8x.5cm - [id number] Implanted:Qty: 1 on 07/03/2020 by Franco Martinez MD at [facility] [employer] 03/09/2025 [id number] / / [id number] Procedures Procedure Name Priority Date/Time Associated Diagnosis Comments LIPID PROFILE AM Draw 04/01/2022 6:23 AM ANESTHESIA RESIDENT from Last 3 Months or Most Recently Relevant to Health Maintenance Results * (ABNORMAL) LIPID PROFILE (04/01/2022 6:23 AM ANESTHESIA RESIDENT) Cholesterol 154 <200 mg/dL 04/01/2022 6:48 AM ANESTHESIA RESIDENT [facility] Triglycerides 133 <150 mg/dL 04/01/2022 6:48 AM ANESTHESIA RESIDENT [facility] HDL Cholesterol 35(L) >40 mg/dL 2 6:48 AM ANESTHESIA RESIDENT [facility] LDL Calculated 92 <130 mg/dL 04/01/2022 6:48 AM ANESTHESIA RESIDENT [facility] VLDL Calculated 27 <=30 mg/dL 2 6:48 AM ANESTHESIA RESIDENT [facility] Chol HDL Ratio 4.4 <4.5 04/01/2022 6:48 AM ANESTHESIA RESIDENT [facility] LDL/HDL Ratio 2.6 <5.0 04/01/2022 6:48 AM ANESTHESIA RESIDENT [facility] Blood BLOOD SPECIMEN / Unknown Venipuncture / Unknown 04/01/2022 6:23 AM ANESTHESIA RESIDENT 04/01/2022 6:29 AM ANESTHESIA RESIDENT Shade Reddy MD LAB - CHEMISTRY ORDERABLES Fin al Result [facility] [address] [place] [address] from Last 3 Months or Most Recently Relevant to Health Maintenance Insurance CIGNA ANTHEM ANTHEM BCBS/BLUE [facility] BCBS/BLUE [facility] * Guarantor: CESARIO JEWELL Account Type Relation to Patient Date of Phone Billing Address Personal/Family Spouse [address]/BLUE BLUE [employer]OSS BLUE [facility] Advance Directives * Full Code (Latest Code Status on File) Date Activated Date Inactivated Comments 03/31/2022 8:46 PM 04/03/2022 5:55 PM * Full Code Date Activated Date Inactivated Comments 03/31/2022 6:15 PM 03/31/2022 7:59 PM * Full Code Date Activated Date Inactivated Comments 09/05/2020 11:08 PM 09/09/2020 5:05 PM Care Teams Lighting Fixtures Decorator Relationship Specialty Start Date End Date Martha Lawrence MD PCP - General 03/21/20 Kathy Corley, PBX MECHANIC-HOT TAMALE WORKER [address] [place] [phone] Nurse Practitioner Ophthalmology 12/14/22 Gibran David [address] [facility] [address] [place] [address] 12/14/22
--- OUTSIDE RECORDS SUMMARY | 2024-09-09 15:50 | XMS_ITS | Clinical Summary ---
Author Organization [facility] Address [address] [place] [address] Phone Care Team Providers Care Farm Boss Name Role Phone Martha Lawrence MD Primary Care Provider [phone] Allergies Active Allergy Reactions Criticality Noted Date [...] Comments Blood Pressure 122/72 07/07/2021 3:09 PM FRONT DESK ASSISTANT Pulse 72 07/07/2021 3:09 PM FRONT DESK ASSISTANT Temperature 36.5 C (97.7 F) 07/07/2021 3:09 PM FRONT DESK ASSISTANT Respiratory Rate - - Oxygen Saturation - - Inhaled Oxygen Concentration - - Weight 113 kg (249 lb) 07/07/2021 3:09 PM FRONT DESK ASSISTANT Height 165.1 cm (5' 5 ) 07/07/2021 3:09 PM FRONT DESK ASSISTANT Body Mass Index 41.44 07/07/2021 3:09 PM FRONT DESK ASSISTANT Plan of Treatment Health Maintenance Due Date Last Done Comments Influenza Vaccine (Season Ended) 2025 02/11/2021, 03/22/2020, 05/12/2013, Additional history exists Insurance [facility] Care Teams Farm Boss Relationship Specialty Start Date End Date Martha Lawrence MD [address] [facility] [place] [address] PCP - General Internal Medicine 02/24/21
== END 2024-09-09 07:31 | disposition home or self-care (01) ==
LOC: ANHLAB 07:33
PROVIDERS: PCP Family Medicine; Visit Provider Family Medicine
DX: R30.0 Dysuria (principal); N18.31 Chronic kidney disease, stage 3a; E66.9 Obesity, unspecified; Z79.899 Other long term (current) drug therapy
CPT/HCPCS: 36415; 80053; 80061; 81003; 84443; 85027

== ENCOUNTER 2024-11-15 09:05 | Outpatient (CLI) | payer BC, OTHER, SELFPAY ==
--- NOTE | ~2024-11-15 | XR_ITS ---
Left Shoulder Technique: AP and scapular Y views were obtained. Clinical History: Pain Findings: No fracture or dislocation is seen. Osseous alignment is anatomic. The glenohumeral and acr omioclavicular joint spaces are preserved. Soft tissues are unremarkable. Impression: Unremarkable left shoulder radiographs. Reviewed, dictated and finalized at [facility]. Impression: Unremarkable left shoulder radiographs.
--- NOTE | ~2024-11-15 | XR_ITS ---
Right Shoulder Technique: AP and scapular Y views were obtained. Clinical History: Pain Findings: No acute fracture seen. There is mild apparent widening of the coracoclavicular distance, s imilar to prior exam.. Soft tissues are unremarkable. Impression: Possible chronic grade 3 AC joint separation. Correlate clinically. No acute fracture. Reviewed, dictated and finalized at location . Impression: Possible chronic grade 3 AC joint separation. Correlate clinically. No acute fracture.
--- NOTE | ~2024-11-15 | MR_ITS ---
MRI of the left shoulder Technique: Axial proton-density fat-sat images, coronal proton density fat-sat and T2 fat-sat images, and sagittal T1-weighted and T2 fat-sat images were acquired. Clinical History: Pain Findings: AC joint is intact. Coracoclavicular, coracoacromial, and coracohumeral ligaments are intac t. Supraspinatus and infraspinatus tendons demonstrate moderate tendinosis without partial or full-thick ness tear. Subscapularis tendon intact with mild tendinosis. Tendon of the long head of the biceps is intact. No labral tear evident. Inferior glenohumeral ligament is intact. No significant degenerative change or effusion of the gleno humeral joint. No fluid distention of the subacromial/subdeltoid bursa. No muscle atrophy or edema. Impression: Rotator cuff tendinosis. Reviewed, dictated and finalized at [facility]. Impression: Rotator cuff tendinosis.
--- NOTE | ~2024-11-15 | MR_ITS ---
MRI of the right shoulder Technique: Axial proton-density fat-sat images, coronal proton density fat-sat and T2 fat-sat images, and sagittal T1-weighted and T2 fat-sat images were acquired. Clinical History: Pain Findings: There is susceptibility artifact about the acromion and distal clavicle, scapula reflect po stoperative versus posttraumatic change. Coracoclavicular, coracoacromial, and coracohumeral ligament s are intact. There is moderate to advanced tendinosis of the supraspinatus and infraspinatus tendons without defin ite partial or full-thickness tear. Subscapularis tendon is intact with mild tendinosis. Tendon of lo ng head of the biceps is intact. No labral tear evident. Inferior glenohumeral ligament is intact. No degenerative change or effusion of the glenohumeral join t. There is mild fluid distention of the subacromial/subdeltoid bursa. No muscle atrophy or edema. Impression: Multifocal susceptibility artifact about the acromion distal clavicle reflect postoperative versus po sttraumatic change. Correlate with relevant clinical history. Rotator cuff tendinosis. Subacromial/subdeltoid bursitis. Reviewed, dictated and finalized at [facility]. Impression: Multifocal susceptibility artifact about the acromion distal clavicle reflect p ostoperative versus posttraumatic change. Correlate with relevant clinical hist ory. Rotator cuff tendinosis. Subacromial/subdeltoid bursitis.
== END 2024-11-15 09:06 | disposition home or self-care (01) ==
LOC: MICIMG 09:06
PROVIDERS: PCP Family Medicine; Visit Provider Nurse Practitioner Adult Health
DX: M25.511 Pain in right shoulder (principal); M25.512 Pain in left shoulder
CPT/HCPCS: 73030; 73221

== ENCOUNTER 2025-01-06 07:56 | Outpatient (CLI) | payer BC, OTHER, SELFPAY ==
--- OUTSIDE RECORDS SUMMARY | 2025-01-06 07:59 | XMS_ITS | Clinical Summary ---
Author Organization [facility] Address [address] [place] [address] Care Team Providers Care Rest Room Maid Name Role Phone Zuly Johnson Sushant ENTRY LEVEL LAB TECHNICIAN Primary Care Provider [phone] Allergies Active Allergy Reactions Criticality Noted Date [...] on file Legal Sex Female 4:19 PM STEEL WELDER Gender Identity Not on file Sexual Orientation Not on file Last Filed Vital Signs Vital Sign Reading Time Taken Comments Blood Pressure 134/98 03/16/2019 2:45 PM STEEL WELDER Pulse 97 03/16/2019 2:45 PM STEEL WELDER Temperature 36.8 C (98.2 F) 03/16/2019 2:45 PM STEEL WELDER Respiratory Rate - - Oxygen Saturation 98% 03/16/2019 2:45 PM STEEL WELDER Inhaled Oxygen Concentration - - Weight 112.9 kg (249 lb) 03/16/2019 2:45 PM STEEL WELDER Height 167.6 cm (5' 6) 03/16/2019 2:45 PM STEEL WELDER Body Mass Index 40.19 03/16/2019 2:45 PM STEEL WELDER Plan of Treatment Health Maintenance Due Date Last Done Comments Pre-Diabetes and Diabetes Screening 1981 HEPATITIS B VACCINES (1 of 3 - 19+ 3-dose series) 01/13/2000 HPV/Cotest (21-29) 2002 HPV VACCINES (1 - 3-dose SCDM series) 01/13/2008 CERVICAL CANCER SCREENING 2011 HPV/Cotest (30-65) 2011 PAP SMEAR 2011 DTAP/TDAP/TD VACCINES (2 - Td or Tdap) 07/24/2018 BREAST CANCER SCREENING 2021 01/20/2019 INFLUENZA VACCINE (#1) 2024 05/14/2014, 2010 Procedures Procedure Name Priority Date/Time Associated Diagnosis [...] BCBS BLUE ACCESS/TRUE BLUE PPO Care Teams Rest Room Maid Relationship Specialty Start Date End Date Zuly Johnson, DANELLE PCP - General NURSE PRACTITIONER 04/29/18
--- OUTSIDE RECORDS SUMMARY | 2025-01-06 07:59 | XMS_ITS | Clinical Summary ---
Author Organization [facility] [employer] Address [address] [place] [address] Care Team Providers Care Environmental Services Director Name Role Phone Martha Lawrence MD Primary Care Provider [phone] Kathy Corley APRN-JUN Unavailable [phone] Gibran David Unavailable Source Comments [facility] [employer],non-owned Affiliates and Associated Physician Practices is amultiple site organization consisting of ambulatory clinics and hospital sitesin [place], [place], [place] and [place]. This disclosure is being madepursuant to the Care Everywhere program and may not contain all information available regarding this patient. Last updated 18.[facility] Allergies Active Allergy Reactions Criticality Noted Date [...] 30 DAYS 07/20/19 24 Active HYDROcodone-aceta minophen (Realitos) 7.5-325 MG tablet Take 1 (one) tablet [...] Oral for 90 Days 06/06/19 25 Active semaglutide (Wegovy) 0.5 MG/0.5ML pen Inject 0.5 (one-half) mg subcutaneously every 7 days (once a week) 12/12/19 25 Active Active Problems Problem Noted Date [...] Nasal saline spray (Simply saline, Little Remedies, Mazon, [place]) 2 second sprays or 2 squeezes into [...] Nasal saline spray (Simply saline, Little Remedies, Mazon, [place]) 2 second sprays or 2 squeezes into [...] Nasal saline spray (Simply saline, Little Remedies, Mazon, [place]) 2 second sprays or 2 squeezes into [...] Encounters Date Type Department Care Team Description 12/19/2024 1:40 PM CDT Office Visit [facility] - Ophthalmology [address] [place] [phone] Fidel Moss MD Secondary glaucoma, mild stage, right (Primary Dx); Anophthalmos of left eye 12/19/2024 1:00 PM CDT Clinical Support [facility] - Ophthalmology [address] [place] [phone] Fidel Moss MD Secondary glaucoma, mild stage, right (Primary Dx) 12/19/2024 12:55 PM CDT Clinical Support [facility] - Ophthalmology [address] [place] [phone] Fidel Moss MD Secondary glaucoma, mild stage, right (Primary Dx) 12/19/2024 Travel from Last 3 Months Immunizations Immunization [...] 115.7 kg (255 lb) 04/21/2022 12:37 PM [employer] Height 165.1 cm (5' 5) 04/21/2022 12:37 PM [employer] Body Mass Index 42.43 04/21/2022 12:37 PM [employer] Plan of Treatment Upcoming Encounters Date Type Department Care Team (Late st Contact Info) Description 06/06/2025 1:00 PM [employer] Office Visit [facility] - Ophthalmology [address] [place] [phone] Chrystal Roa MD [address] [place] [address] [place] [phone] 12/20/2025 1:00 PM CDT Office Visit [facility] - Ophthalmology [address] [place] [phone] Fidel Moss MD [facility] [place] [phone] Health Maintenance Due Date Last Done Comments HIV SCREENING 01/13/1996 HEPATITIS C SCREENING 01/08/1999 HEPATITIS B VACCINE (1 of 3 - 19+ 3-dose series) 01/13/2000 PAP SMEAR 2002 HPV VACCINE (1 - 3-dose SCDM series) 01/13/2008 DTAP/TDAP/TD VACCINES (2 - Td or Tdap) 07/24/2018 07/24/2008 MAMMOGRAM 03/18/2023 03/18/2021, 12/09, 12/12/2019, Additional history exists COVID-19 VACCINE ( season) 2024 DEPRESSION SCREENING 05/10/2024 04/29/2022, 04/27/2022, 04/21/2022, Additional history exists INFLUENZA VACCINE (#1) 2025 2, 02/11/2021, 03/22/2020, Additional history exists LIPID [...] this topic Medical Devices Implanted Type Area House Player Device Identifier Shelf Expiration Date Model / Serial / Lot Drain Glcm Thk.9mm Blnt Tpr Ahmed Flxb Implanted:Qty: 1 on 07/03/2020 by Franco Martinez MD at [facility] 04/30/2022 [id number] / / [id number] Graft Tissue Ttpl Iopt[employer] Sclr .8x.5cm - [id number] Implanted:Qty: 1 on 07/03/2020 by Franco Martinez MD at [facility] [employer] 03/09/2025 [id number] / / [id number] Procedures Procedure Name Priority Date/Time Associated Diagnosis Comments LIPID PROFILE AM Draw 04/01/2022 6:23 AM [employer] from Last 3 Months or Most Recently Relevant to Health Maintenance Results * (ABNORMAL) LIPID PROFILE (04/01/2022 6:23 AM [employer]) Cholesterol 154 <200 mg/dL 04/01/2022 6:48 AM [employer] [facility] Triglycerides 133 <150 mg/dL 04/01/2022 6:48 AM [employer] [facility] HDL Cholesterol 35(L) >40 mg/dL 2 6:48 AM [employer] [facility] LDL Calculated 92 <130 mg/dL 04/01/2022 6:48 AM [employer] [facility] VLDL Calculated 27 <=30 mg/dL 6:48 AM [employer] [facility] Chol HDL Ratio 4.4 <4.5 04/01/2022 6:48 AM [employer] [facility] LDL/HDL Ratio 2.6 <5.0 04/01/2022 6:48 AM [employer] [facility] Blood BLOOD SPECIMEN / Unknown Venipuncture / Unknown 04/01/2022 6:23 AM [employer] 04/01/2022 6:29 AM [employer] Shade Reddy MD LAB - CHEMISTRY ORDERABLES Fin al Result [facility] [address] [place] [address] from Last 3 Months or Most Recently Relevant to Health Maintenance Insurance [facility] ANTH ANTHEM ANTHEM BCBS/BLUE BLUE [employer] [facility]BS/[facility] Advance Directives * Full Code (Latest Code Status on File) Date Activated Date Inactivated Comments 03/31/2022 8:46 PM 04/03/2022 5:55 PM * Full Code Date Activated Date Inactivated Comments 03/31/2022 6:15 PM 03/31/2022 7:59 PM * Full Code Date Activated Date Inactivated Comments 09/05/2020 11:08 PM 09/09/2020 5:05 PM Care Teams Environmental Services Director Relationship Specialty Start Date End Date Martha Lawrence MD PCP - General 03/21/20 Kathy Corley, TECHNICAL OPERATIONS MANAGER-[employer] SUPER[employer] [address] [facility] [place] [phone] Nurse Practitioner Ophthalmology 12/14/22 Gibran David [address] [facility] [address] [place] [address] 12/14/22
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
--- OUTSIDE RECORDS SUMMARY | 2025-01-06 07:59 | XMS_ITS | Encounter Summary ---
Author Organization [facility] Healthcare Address [address] [place] [address] Care Team Providers Care Baton Twirler Name Role Phone ЕкатеринаZoran silverman Tayo Unavailable Unavailable Martha Lawrence MD Primary Care Provider [phone]- [phone] Encounter Details Date Type Department Care Team (Latest Contact Info) Description 01/01/2025 Results Follow-Up [facility] [address] [place] [address] [place] [address] [place] [id number] [place] [address] Lipid panel, Hemoglobin A1c, Thyroid Function [place], Additional followed-up results: 3 Social History Tobacco Use Types Packs/Day Years [...] on file Legal Sex Female 10:37 AM ROVING CAN TENDER Gender Identity Not on file Sexual Orientation Not on file documented as of this encounter Plan of Treatment Not on file documented as of this encounter Visit Diagnoses Not on filedocumented in this encounter Care Teams Baton Twirler Relationship Specialty Start Date End Date Martha Lawrence MD PCP - General 02/24/19 Zoran Willams Family Medicine 05/18/18 documented as of this encounter
--- OUTSIDE RECORDS SUMMARY | 2025-01-06 07:59 | XMS_ITS | Clinical Summary ---
Author Organization [facility] Address [address] [place] [address] Phone Care Team Providers Care Horse Race Timer Name Role Phone Martha Lawrence MD Primary Care Provider [phone] Allergies Active Allergy Reactions Criticality Noted Date [...] Comments Blood Pressure 122/72 07/07/2021 3:09 PM PARA OPERATOR Pulse 72 07/07/2021 3:09 PM PARA OPERATOR Temperature 36.5 C (97.7 F) 07/07/2021 3:09 PM PARA OPERATOR Respiratory Rate - - Oxygen Saturation - - Inhaled Oxygen Concentration - - Weight 113 kg (249 lb) 07/07/2021 3:09 PM PARA OPERATOR Height 165.1 cm (5' 5) 07/07/2021 3:09 PM PARA OPERATOR Body Mass Index 41.44 07/07/2021 3:09 PM PARA OPERATOR Plan of Treatment Health Maintenance Due Date Last Done Comments Influenza Vaccine (#1) 2025 , 03/22/2020, 05/12/2013, Additional history exists Insurance [facility] Care Teams Horse Race Timer Relationship Specialty Start Date End Date Martha Lawrence MD [address] [facility] [place] [place] [address] PCP - General Internal Medicine 02/24/21
--- OUTSIDE RECORDS SUMMARY | 2025-01-06 07:59 | XMS_ITS | Encounter Summary ---
Author Organization [facility] Healthcare Address [address] [place] [address] Care Team Providers Care Floor Worker Name Role Phone Zoran Willams Unavailable Unavailable Martha Lawrence MD Primary Care Provider [phone]- [phone] Encounter Details Date Type Department Care Team (Late st Contact Info) Description 12/18/2019 Telephone [facility] Advanced Medicine Breast Imaging [facility] Advanced Medicine ([facility]) [address] [place] [address] Kathryn Penaloza, RN Social History Tobacco Use Types Packs/Day Years Used Date Smoking Tobacco: Never Smokeless Tobacco: Never Alcohol Use Standard Drinks/Week Comments No 0 (1 standard drink = 0.6 oz pur e alcohol) Comments No Sex and Gender Information Value Date Recorded Sex Assigned at Not on file Legal Sex Female 10:37 AM IT PROJECT 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
--- OUTSIDE RECORDS SUMMARY | 2025-01-06 07:59 | XMS_ITS | Encounter Summary ---
Author Organization [facility] Address [address] [place] [address] Phone Care Team Providers Care Lead Manufacturing Technician Name Role Phone Zoran Willams Unavailable Unavailable Martha Lawrence MD Primary Care Provider [phone]- [phone] Encounter Details Date Type Department Care Team (Late st Contact Info) Description 02/17/2020 Ophth Exam [facility] [address] [place] [address] 1st [place] [id number] Juan Mcdaniel MD [facility] [address] [place] [address] Social History Tobacco Use Types Packs/Day Years Used Date Smoking Tobacco: Never Smokeless Tobacco: Never Alcohol Use Standard Drinks/Week Comments No 0 (1 standard drink = 0.6 oz pur e alcohol) Comments No Sex and Gender Information Value Date Recorded Sex Assigned at Not on file Legal Sex Female 10:37 AM CRANE HOIST OR LIFT OPERATOR Gender Identity Not on file Sexual [...] with poor dilation, small YAG Care Teams Lead Manufacturing Technician Relationship Specialty Start Date End Date Martha Lawrence MD PCP - General 02/24/19 Zoran Willams Family Medicine 05/18/18 documented as of this encounter
[2025-01-06 09:09] LABS: Add Urine Microscopic? YES; Appearance Urine Turbid (Clear); Glucose Urine UA Negative (Negative); Leukocyte Esterase Ur Negative LEU/UL (Negative); Nitrate Urine Negative (Negative); Non Pathogenic Casts 0-2; Specific Grav Ur 1.016 (1.001-1.035)
== END 2025-01-06 07:57 | disposition home or self-care (01) ==
LOC: ANHLAB 07:57
PROVIDERS: PCP Family Medicine; Visit Provider Family Medicine
DX: R30.0 Dysuria (principal)
CPT/HCPCS: 81001

== ENCOUNTER 2025-03-03 09:31 | Emergency (ER) | payer BC, SELFPAY ==
--- NOTE | 2025-03-03 09:33 | ED.GENADULT ---
HPI - General Adult General Chief complaint: Ear Stated complaint: ear inf Time Seen by Provider: 03/03/25 09:33 Source: patient Mode of arrival: ambulatory Limitations: no limitations History of Present Illness HPI narrative: 45-year-old female patient presents to the [facility] with complaints of right ear pain for the past 3 days. Denies fevers body aches or chills but states she has been feeling clammy. Patient states she has had some discharge coming from the right ear. Patient states she does have 2 to bilateral ears. Patient states she does use Q-tips in the ear often. Related Data Home Medications ?Medication ?Instructions ?Recorded ?Confirmed ?Last Taken ?Type atomoxetine 60 mg capsule 60 mg PO DAILY 12/15/22 12/25/24 09/03/24 History (Strattera) escitalopram oxalate 20 mg tablet 20 mg PO DAILY 12/15/22 12/25/24 09/03/24 History (Lexapro) nebivolol 10 mg tablet 10 mg PO DAILY 12/15/22 12/25/24 09/04/24 History albuterol 90 mcg/actuation aerosol 90 mcg inhalation PRN PRN 04/21/23 12/25/24 Unknown History inhaler Shortness Of Breath omeprazole magnesium 20 mg 20 mg PO DAILY PRN Indigestion 04/21/23 12/25/24 09/03/24 History tablet,delayed release (Prilosec OTC) topiramate 50 mg tablet (Topamax) 50 mg PO BID 07/20/24 12/25/24 09/03/24 History zaleplon 10 mg capsule 10 mg PO DAILY 07/31/24 12/25/24 09/03/24 History bupropion HCl 150 mg 24 hr tablet, mg PO 12/25/24 12/25/24 Unknown History extended release esketamine 84 mg (28 mg x 3) nasal spray intranasal 12/25/24 12/25/24 Unknown History spray (Spravato) lamotrigine 100 mg tablet mg PO 12/25/24 12/25/24 Unknown History semaglutide (weight loss) 0.5 mg subcut 12/25/24 12/25/24 Unknown History mg/0.5 mL subcutaneous pen injector (Pilar) relugolix 40 mg-estradiol 1 1 tablet PO DAILY 01/17/25 Unknown History mg-norethindrone acetate 0.5 mg tablet (Myfembree) Allergies Allergy/AdvReac Type Severity Reaction Status Date / Time Penicillins Allergy Severe HIVES Verified 01/17/25 15:37 penicillin G Allergy Unknown Hives Verified 01/17/25 15:37 Sulfa (Sulfonamide Allergy Unknown EYES ITCH Verified 01/17/25 15:37 Antibiotics) AND SWELL acetaminophen (From Percocet) AdvReac Vomiting Verified 01/17/25 15:37 oxycodone (From Percocet) AdvReac Vomiting Verified 01/17/25 15:37 Review of Systems Review of Systems: CONSTITUTIONAL: Denies fever, chills, or sweats. EYES: Denies visual changes, redness, or discharge. ENT: Denies rhinorrhea, congestion, sore throat, Positive right otalgia. CARDIOVASCULAR: Denies chest pain, palpitations, or edema. RESPIRATORY: Denies cough or dyspnea. GASTROINTESTINAL: Denies abdominal pain, nausea, vomiting, or diarrhea. GENITOURINARY: Denies dysuria or hematuria. SKIN: Denies rash or itching. MUSCULOSKELETAL: Denies back pain, joint pain, or myalgia. NEUROLOGIC: Denies headache, numbness, or weakness. PSYCHIATRIC: Denies anxiety or depression. [facility] Past Medical History Medical History Shoulder pain, left Marijuana use Bipolar 1 disorder Irritable bowel syndrome with constipation History of glaucoma surgery 2019 History of suicide attempt History of electroconvulsive therapy PTSD (post-traumatic stress disorder) Glaucoma Obesity Depression with anxiety PCOS (polycystic ovarian syndrome) Exocrine pancreatic insufficiency Chronic kidney disease, stage 3a Hypertension Detached retina Cataracts, bilateral Surgical History Surgical History History of tonsillectomy History of eye surgery History of myomectomy open [address] Doshi History of breast biopsy 2011, 2019, 2021 History of laparoscopic appendectomy on 01/05/23 PDC Hx laparoscopic cholecystectomy Family History Family History Grandparent Family history of malignant neoplasm of ovary Diabetes mellitus Cerebrovascular accident Sibling Diabetes mellitus Unknown family medical history Bipolar 1 disorder Narcolepsy Mother Diabetes mellitus Glaucoma Hypertension Father CKD (chronic kidney disease) stage 4, GFR 15-29 ml/min COPD (chronic obstructive pulmonary disease) Malignant neoplasm of prostate Asthma Social History Social History Smoking status: Never smoker Second hand tobacco smoke exposure: Yes Alcohol intake: never Substance use: current Substance use type: marijuana Other substance usage details: EDIBLE Do You Feel Safe in your Home?: Yes Lack of Transportation: YES Lack of Food: Never True Current Housing: I Have Housing Concerned About Future Housing: No Difficulty Paying Gas/Electric Bills: No Difficulty Paying for Meds: No Currently Unemployed: No Education: Master's Degree or Higher Difficulty w/ Childcare or Family Care: No Living arrangements: with family Occupation/Education: occupation Additional occupation/education comments: [employer] Gender identity (if verbalized by the patient): Female Spiritual care concerns: No Comments At the time of my signature I agree with nursing past medical history, surgical, social, and family history. There is no relevant family history pertinent to the presenting complaint. Exam Narrative: GENERAL: Well-appearing, well-nourished, and in no acute distress. HEAD: Normocephalic, atraumatic. EYES: PERRLA and EOMI. ENT: Nares clear, no rhinorrhea or epistaxis. Mucous membranes moist. posterior pharynx with no erythema, tonsillar enlargement, exudates or lesions present. Ear tubes are present bilateral ear however in the right ear does appear that there is some yellow pus that is and swelling that is clogging the tube in the area. NECK: Supple. No lymphadenopathy CHEST: Clear to auscultation. No respiratory distress. HEART: Regular rate and rhythm. No murmur heard. Normal peripheral pulses. ABDOMEN: Soft, nontender, nondistended, normal active bowel sounds. EXTREMITIES: Normal range of motion. No edema. SKIN: Warm, dry, no rash. NEURO: No focal deficits. Alert and oriented x3. Course Course Level of Care: Express Care Visit Vital Signs Vital signs: Vital Signs Temperature 36.6 C 03/03/25 09:44 Pulse Rate 87 03/03/25 09:44 Respiratory Rate 20 03/03/25 09:44 Blood Pressure 113/82 03/03/25 09:44 Pulse Oximetry 100 03/03/25 09:44 Oxygen Delivery Room Air 03/03/25 09:44 Temperature 36.6 C 03/03/25 09:44 Pulse Rate 87 03/03/25 09:44 Respiratory Rate 20 03/03/25 09:44 Blood Pressure 113/82 03/03/25 09:44 Pulse Oximetry 100 03/03/25 09:44 Oxygen Delivery Room Air 03/03/25 09:44 Vital signs reviewed. Medical Decision Making MDM Narrative Medical decision making narrative: Discussed with patient plan of care is to discharge home with antibiotic ear drops for the ear. Also recommend that she take a daily antihistamine something such as Zyrtec, Claritin or Katie. Discussed with patient she can take Tylenol ibuprofen for pain and if this does not start relieving her symptoms in the next couple of days she is to call and follow up with her ENT doctor. Differential Diagnosis Differential Diagnosis: Differential diagnosis: Otitis media, otitis externa, perforated TM, infection of the outer ear, foreign body or cerumen impaction, ruptured TM, acute mastoiditis, ligament otitis externa, dehydration, pneumonia, sepsis, dental or intraoral infection, TMJ dysfunction Vital Signs Vital Signs: Vital Signs Temperature 36.6 C 03/03/25 09:44 Pulse Rate 87 03/03/25 09:44 Respiratory Rate 20 03/03/25 09:44 Blood Pressure 113/82 03/03/25 09:44 Pulse Oximetry 100 03/03/25 09:44 Oxygen Delivery Room Air 03/03/25 09:44 Temperature 36.6 C 03/03/25 09:44 Pulse Rate 87 03/03/25 09:44 Respiratory Rate 20 03/03/25 09:44 Blood Pressure 113/82 03/03/25 09:44 Pulse Oximetry 100 03/03/25 09:44 Oxygen Delivery Room Air 03/03/25 09:44 Critical Care Time Critical Care Time Critical Care Time: No Discharge Plan Discharge Clinical Impression: Acute otitis externa of right ear Qualifiers: Otitis externa type: unspecified type Qualified Code(s): H60.501 - Unspecified acute noninfective otitis externa, right ear Patient Disposition: Home Condition: Stable Instructions: Antibiotic Form, Ear Infection (ED) Additional Instructions: Return to the emergency department if: You have severe ear pain. You are suddenly unable to hear at all. You have new swelling in your face, behind your ears, or in your neck. You suddenly cannot move part of your face. Your face suddenly feels numb. Contact your healthcare provider if: You have a fever. Your signs and symptoms do not get better after 2 days of treatment. Your signs and symptoms go away for a time, but then come back. You have questions or concerns about your condition or care. Medicines: NSAIDs , such as ibuprofen, help decrease swelling, pain, and fever. This medicine is available with or without a doctor's order. NSAIDs can cause stomach bleeding or kidney problems in certain people. If you take blood thinner medicine, always ask if NSAIDs are safe for you. Always read the medicine label and follow directions. Do not give these medicines to children under 6 months of age without direction from your child's healthcare provider. Acetaminophen decreases pain and fever. It is available without a doctor's order. Ask how much to take and how often to take it. Follow directions. Acetaminophen can cause liver damage if not taken correctly. Ear drops that contain an antibiotic may be given. The antibiotic helps treat a bacterial infection. You may also be given steroid medicine. The steroid helps decrease redness, swelling, and pain. How to use eardrops: Lie down on your side with your infected ear facing up. Carefully drip the correct number of eardrops into your ear. Have another person help you if possible. Gently move the outside part of your ear back and forth to help the medicine reach your ear canal. Stay lying down in the same position (with your ear facing up) for 3 to 5 minutes. Prevent otitis externa: Do not put cotton swabs or foreign objects in your ears. Wrap a clean moist washcloth around your finger, and use it to clean your outer ear and remove extra ear wax. Use ear plugs when you swim. Dry your outer ears completely after you swim or bathe. Patient Language: [place] Prescriptions: New ofloxacin 0.3 % drops 10 drp EACH EAR DAILY 7 Days Qty: 10 0RF No Action atomoxetine [Strattera] 60 mg capsule 60 mg PO DAILY escitalopram oxalate [Lexapro] 20 mg tablet 20 mg PO DAILY nebivolol 10 mg tablet 10 mg PO DAILY zaleplon 10 mg capsule 10 mg PO DAILY Linzess 72 mcg capsule 72 mcg PO QAM Qty: 30 3RF Wegovy 0.5 mg/0.5 mL pen injector subcut Spravato 84 mg (28 mg x 3) spray,non-aerosol intranasal bupropion HCl 150 mg tablet extended release 24 hr PO lamotrigine 100 mg tablet PO topiramate [Topamax] 50 mg tablet 50 mg PO BID Myfembree 40-1-0.5 mg tablet 1 tablet PO DAILY albuterol 90 mcg/actuation Aerosol 90 mcg INHALATION PRN PRN (Reason: Shortness Of Breath) omeprazole magnesium [Prilosec OTC] 20 mg Tablet,Delayed Release (Dr/Ec) 20 mg PO DAILY PRN (Reason: Indigestion) Zenpep 60,000-189,600- 252,600 unit capsule,delayed release(DR/EC) 1 cap PO QID Qty: 300 12RF Rx Instructions: administer with meals and/or snacks montelukast 10 mg tablet 10 mg PO DAILY Qty: 90 1RF Follow-up/Referrals: Lesvia Dyson DO [Primary Care Provider, Family Practice]
[2025-03-03 09:44] VITALS: BP 113/82; PULSE 87; RESP 20; TEMP 36.6; O2SAT 100
== END 2025-03-03 10:01 | disposition home or self-care (01) ==
PROVIDERS: Emergency Provider Nurse Practitioner Family; PCP Family Medicine
DX: H60.501 Unspecified acute noninfective otitis externa, right ear (principal); I12.9 Hypertensive chronic kidney disease with stage 1 through stage 4 chronic kidney disease, or unspecified chronic kidney disease; N18.31 Chronic kidney disease, stage 3a; E28.2 Polycystic ovarian syndrome; E66.9 Obesity, unspecified; Z68.36 Body mass index [BMI] 36.0-36.9, adult; F31.9 Bipolar disorder, unspecified; F41.9 Anxiety disorder, unspecified; F12.90 Cannabis use, unspecified, uncomplicated
CPT/HCPCS: 99213; G0463